=== PATIENT | female | born 1940 | race Caucasian/White ===

== ENCOUNTER 2019-06-07 10:50 | Outpatient (CLI) | payer MEDICARE, SELFPAY ==
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
== END 2019-06-07 10:51 | disposition home or self-care (01) ==
LOC: RADWPI 10:59
PROVIDERS: Family Provider Physician Assistant; PCP Physician Assistant; Visit Provider Family Medicine
DX: Z78.0 Asymptomatic menopausal state (principal)
CPT/HCPCS: 77080

== ENCOUNTER 2019-06-11 06:00 | Outpatient (RCR) | payer MEDICARE, SELFPAY | END 2019-06-14 23:59 | disposition home or self-care (01) | LOC: APT 06:00 | PROVIDERS: Family Provider Physician Assistant; PCP Physician Assistant; Visit Provider Family Medicine | DX: G89.29 Other chronic pain (principal); M54.6 Pain in thoracic spine | CPT/HCPCS: 97110; 97112; 97161 ==

== ENCOUNTER 2019-06-15 06:00 | Outpatient (RCR) | payer MEDICARE, SELFPAY | END 2019-07-13 23:59 | disposition home or self-care (01) | LOC: APT 06:00 | PROVIDERS: Family Provider Physician Assistant; PCP Physician Assistant; Visit Provider Family Medicine | DX: M54.6 Pain in thoracic spine (principal) | CPT/HCPCS: 97110; 97164 ==

== ENCOUNTER 2020-09-19 16:03 | Emergency (ER) | payer MEDICARE, SELFPAY ==
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
[2020-09-19 16:21] VITALS: BP 147/80; PULSE 68; RESP 16; TEMP 36.2; O2SAT 97; BMI 27.3
[2020-09-19 18:13] VITALS: BP 186/93; PULSE 74; RESP 16; O2SAT 94
== END 2020-09-19 18:12 | disposition home or self-care (01) ==
PROVIDERS: Emergency Provider Emergency Medicine; PCP Family Medicine
DX: S06.0X0A Concussion without loss of consciousness, initial encounter (principal); Z79.02 Long term (current) use of antithrombotics/antiplatelets; Z79.4 Long term (current) use of insulin; I25.2 Old myocardial infarction; I25.10 Atherosclerotic heart disease of native coronary artery without angina pectoris; E78.5 Hyperlipidemia, unspecified; I10 Essential (primary) hypertension; E11.9 Type 2 diabetes mellitus without complications; Z95.1 Presence of aortocoronary bypass graft; V89.2XXA Person injured in unspecified motor-vehicle accident, traffic, initial encounter
CPT/HCPCS: 70450; 71045; 99283

== ENCOUNTER 2021-08-06 13:49 | Outpatient (CLI) | payer MEDICARE, SELFPAY ==
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
== END 2021-08-06 13:50 | disposition home or self-care (01) ==
PROVIDERS: PCP Family Medicine; Visit Provider Physician Assistant
DX: Z78.0 Asymptomatic menopausal state (principal); M85.80 Other specified disorders of bone density and structure, unspecified site
CPT/HCPCS: 77080

== ENCOUNTER 2022-03-11 11:26 | Outpatient (CLI) | payer MEDICARE, SELFPAY ==
--- NOTE | 2022-03-11 11:37 | MM_ITS ---
WS: [id number] DIAGNOSTIC BILATERAL DIGITAL BREAST TOMOSYNTHESIS MAMMOGRAPHY WITH CAD LEFT breast ultrasound, limited HISTORY: LT BREAST LUMP COMPARISON: 06/21/2010 and 12/18/2017 TECHNIQUE: Bilateral craniocaudad, mediolateral oblique, and mediolateral views are submitted with to mosynthesis and SM. Spot compression LEFT CC. Computer aided detection utilized. Breast composition: There are scattered areas of fibroglandular density. Triangular marker over the a nterior central LEFT breast. Seen only on the spot compression views is a slightly lobulated 6 mm nod ule closely associated with the palpable marker. No distortion. No nipple retraction. Additional exte nsive breast arterial calcifications. LEFT breast ultrasound, limited. There is an ovoid hypoechoic mass in the superior superficial LEFT breast at 12:00, 6 cm from the nip ple. This corresponds to the mammographic and palpable abnormality. There is no increased vascularity . This thick wall mass measures 6 x 7 x 3 mm. MM/[place] [id number] IMPRESSION: BI-RADS: 3-Probably Benign FOLLOW UP: 6 Month Follow-up 1. Palpable area very superficial LEFT breast at 12:00 corresponds to a 6 x 7 mm nodule. Favor this is probably a resolving hematoma or sebaceous cyst. 2. Recommend 6 month LEFT breast ultrasound follow-up. If this nodule increase s in size over the next few months reevaluation can be performed earlier. There is no increased vascularity and I suspect this is a benign lesion.
--- NOTE | 2022-03-11 12:11 | US_ITS ---
WS: [id number] DIAGNOSTIC BILATERAL DIGITAL BREAST TOMOSYNTHESIS MAMMOGRAPHY WITH CAD LEFT breast ultrasound, limited HISTORY: LT BREAST LUMP COMPARISON: 06/21/2010 and 12/18/2017 TECHNIQUE: Bilateral craniocaudad, mediolateral oblique, and mediolateral views are submitted with to mosynthesis and SM. Spot compression LEFT CC. Computer aided detection utilized. Breast composition: There are scattered areas of fibroglandular density. Triangular marker over the a nterior central LEFT breast. Seen only on the spot compression views is a slightly lobulated 6 mm nod ule closely associated with the palpable marker. No distortion. No nipple retraction. Additional exte nsive breast arterial calcifications. LEFT breast ultrasound, limited. There is an ovoid hypoechoic mass in the superior superficial LEFT breast at 12:00, 6 cm from the nip ple. This corresponds to the mammographic and palpable abnormality. There is no increased vascularity . This thick wall mass measures 6 x 7 x 3 mm. US/US breast LT limited* [id number] IMPRESSION: BI-RADS: 3-Probably Benign FOLLOW UP: 6 Month Follow-up 1. Palpable area very superficial LEFT breast at 12:00 corresponds to a 6 x 7 mm nodule. Favor this is probably a resolving hematoma or sebaceous cyst. 2. Recommend 6 month LEFT breast ultrasound follow-up. If this nodule increase s in size over the next few months reevaluation can be performed earlier. There is no increased vascularity and I suspect this is a benign lesion.
== END 2022-03-11 11:27 | disposition home or self-care (01) ==
PROVIDERS: PCP Family Medicine; Visit Provider Family Medicine
DX: N63.25 Unspecified lump in the left breast, overlapping quadrants (principal)
CPT/HCPCS: 76642; 77062

== ENCOUNTER 2022-04-14 10:24 | Emergency (ER) | payer MEDICARE, SELFPAY ==
[2022-04-14 10:50] VITALS: PULSE 72; RESP 18; O2SAT 94
--- NOTE | 2022-04-14 11:13 | CT_ITS ---
WS: [id number] CT LUMBAR SPINE TECHNIQUE: Noncontrast CT of the lumbar spine with coronal and sagittal reformatted images. CLINICAL INFORMATION: back pain COMPARISON: None. DLP: 1458.[address] scans at [facility] use at least one of these dose optimization techniques: automated e xposure control; mA and/or kV adjustment per patient size (includes targeted exams where dose is matc hed to clinical indication); or iterative reconstruction. FINDINGS: Mild lumbar curve convex LEFT. Slight anterolisthesis L4 on L5. Vacuum disc phenomenon L4-L5 and L5-S 1. Mild compression of the superior endplate at L1 with tiny fracture cleft. Associated Schmorl's nod e. Minimal loss vertebral body height. Compression eccentric to the RIGHT and involves the RIGHT jayme vertebra. No other visualized acute compression fractures. Degenerative arthritis both sacroiliac tamra nts. Vascular calcification. Adrenal glands are normal. Advanced facet arthropathy lower lumbar spine . L1-L2: No significant disc bulging. Mild bilateral bony foraminal narrowing. L2-L3: Mild annular bulging with mild central canal stenosis. Mild bilateral foraminal narrowing LEFT greater than RIGHT. Narrowing of the LEFT subarticular recess. Mild facet arthropathy. L3-L4: Disc bulging with moderate central canal stenosis. Moderate facet arthropathy ligament flavum hypertrophy. Small foraminal protrusions with mild LEFT greater than RIGHT foraminal narrowing. L4-L5: Grade 1 anterolisthesis. Severe central canal stenosis. Advanced facet arthropathy ligamentum flavum hypertrophy. Impingement traversing L5 nerve roots bilaterally. Severe RIGHT and moderate LEFT foraminal narrowing. . L5-S1: Mild disc bulging and osteophytic ridging. Spinal canal is patent Visualized pelvic bony structures: Normal. Paravertebral soft tissues: Normal. CT/CT lumbar spine wo con* [id number] IMPRESSION: 1. Mild compression fracture superior endplate L1 eccentric to the RIGHT with fracture cleft and mild loss vertebral body height. No significant retropulsion . 2. Otherwise no compression fractures lumbar spine. 3. Moderate chronic central canal stenosis L3-L4 and severe central canal sten osis L4-L5. Notified Dalton Dalton DO at 04/14/2022 12:16 PM.
--- NOTE | 2022-04-14 11:13 | CT_ITS ---
WS: [id number] CT THORACIC SPINE TECHNIQUE: Noncontrast CT of the thoracic spine with coronal and sagittal reformatted images. CLINICAL INFORMATION: fall with midline back pain COMPARISON: None. DLP: 1458.[address] scans at [facility] use at least one of these dose optimization techniques: automated e xposure control; mA and/or kV adjustment per patient size (includes targeted exams where dose is matc hed to clinical indication); or iterative reconstruction. FINDINGS: Moderate thoracic kyphosis. Osteopenia. Moderate spondylitic changes. Disc space narrowing worse in t he mid and lower thoracic spine. Vacuum disc phenomenon at T6-T7, T9-T10, T10-T11, T11-T12. Endplate degenerative changes at T9-T10 with sclerosis and subchondral cystic change. Complete loss of the dis c space at T7-T8. Anterior hypertrophic changes. Chronic appearing anterior wedging in the mid thorac ic spine. Minimal compression superior endplates at T3 and T4 likely chronic. Slight atelectasis ling mark and LEFT greater than RIGHT lung base partially visualized. Small esophageal hiatal hernia. Adrenal glands are normal. Splenic artery calcification. IMPRESSION: Moderate to advanced spondylitic changes thoracic spine. No acute compression fractures in the thora cic spine.
--- NOTE | 2022-04-14 11:16 | W.ED.BACK ---
HPI - Back Pain/Injury General: Chief Complaint: Back Pain/Injury Stated Complaint: SEVERE LOW BACK PAIN Time Seen by Provider: 04/14/22 10:45 Source: patient Mode of arrival: EMS Limitations: no limitations History of Present Illness: This patient comes to the emergency department from her home via EMS. She states that she had a fall from her bed approximately 5 or so days ago. She states she rolled out of her bed which is approximately 2 and half to 3 feet off the floor injuring her lower back. She states that she was seen at one of the local clinics and did plain films of her spine and related that she may have had a fracture. She stated they wanted to admit her at that time but she wanted to go home. She states that this morning she had an increase in pain despite her analgesics. She denies other injury from the fall. She states there was no head injury. She denies any numbness or weakness or loss of bowel or bladder control. MD elicited complaint: back injury and fall Location: lumbar spine and thoracic spine Associated symptoms: Deny chills, dysuria, fever(s) or syncope Review of Systems Const: Denies: fever(s) or chills Eyes: Denies: change in vision ENMT: Denies: throat pain, odynophagia, nasal discharge or nasal congestion Card: Denies: chest pain, palpitations, irregular heart rhythm, syncope or pre-syncope Resp: Denies: dyspnea, productive cough or non-productive cough : Denies: flank pain, difficulty voiding, dysuria or urinary frequency Musc: Reports: back pain; Denies: neck pain, extremity pain or extremity swelling Skin/Breast: Denies: rash Neuro: Denies: headache(s), numbness in extremities or weakness in extremities PFSH ED PFSH: Medical History (Updated 04/14/22 @ 13:06 by Dalton Dalton DO) Acute [place] CAD (coronary artery disease) Dyslipidemia Essential (primary) hypertension Type 2 diabetes mellitus without complications Surgical History Hx of CABG Physical Exam Narrative: EXAM NARRATIVE: Patient was noted to be alert and in no acute distress lying in bed in the examination room. Makes good eye contact and her speech is goal-directed. Const: COMMON NORMALS: no acute distress and patient oriented x3 GENERAL APPEARANCE: cooperative and comfortable NUTRITIONAL APPEARANCE: overweight HENMT: COMMON NORMALS: normocephalic, atraumatic, Normal external nose present, Normal nasal mucous membranes and turbinates present, moist oral mucous membranes and oropharynx normal HEAD & SCALP: normocephalic and atraumatic NOSE: Normal external nose present and Normal nasal mucous membranes and turbinates present Eye: COMMON NORMALS: Equal, round and reactive pupils present, EOMs intact bilaterally and conjunctivae normal CONJUNCTIVA: Yes conjunctivae normal PUPIL: Yes Equal, round and reactive pupils present Neck/C-Spine: CERVICAL SPINE: Yes cervical ROM normal, No Cervical spine tenderness, No step off deformity, No Paracervical muscle tenderness, No Paracervical spasm and No Trapezius muscle tenderness Chest: COMMONS NORMALS: normal inspection of the chest and normal palpation of entire chest wall Resp: COMMON NORMALS: normal respiratory effort and clear to auscultation bilaterally AUSCULTATION: clear to auscultation bilaterally Cardio: COMMON NORMALS: regular rate, regular rhythm, No murmurs present (Cardio) and Peripheral pulses 2+ throughout RATE: regular rate RHYTHM: regular rhythm PERIPHERAL PULSES: Peripheral pulses 2+ throughout GI: COMMON NORMALS: Normal to inspection, nondistended, normoactive bowel sounds present, Soft to palpation and non-tender PALPATION: Yes Soft to palpation Back/Pelvis: THORACIC SPINE/UPPER BACK: Yes ROM limited, Yes pain with ROM and Yes thoracic spinal tenderness LUMBAR SPINE/LOWER BACK: Yes normal to inspection, Yes lumbar ROM normal, No pain with ROM and No lumbar spinal tenderness PELVIS: Yes no pain with anterior-posterior compression, Yes no pain with lateral compression and No tenderness over symphysis pubis Extremity: COMMON NORMALS: normal to inspection, full ROM, capillary refill normal, no calf tenderness and no pedal edema Neuro: COMMON NORMALS: patient oriented x3, moves all extremities, no focal motor deficits and no sensory deficits noted Psych: COMMON NORMALS: mental status grossly normal Skin: COMMON NORMALS: no rashes or lesions noted, no wounds and turgor normal GENERAL SKIN EXAM: no rashes or lesions noted and turgor normal Course Reevaluation(s): Reevaluation #1: Radiology studies were reviewed. Patient was reexamined. She does have some mild tenderness in the midline in the lower thoracic L1 region consistent with her radiographic findings. She has more tenderness to the left of the thoracic spine approximately T6-T7 area. No ecchymosis or skin rashes are noted. Given radiographic findings she has evidence of a notable L1 compression fracture with marked degenerative changes throughout the remainder of her spine. But no evidence of a thoracic compression fracture of recent occurrence. Time: 13:03 Vital Signs: Vital signs: Vital Signs Pulse Rate 72 04/14/22 10:50 Respiratory Rate 18 04/14/22 10:50 Pulse Oximetry 94 04/14/22 10:50 Oxygen Delivery Me thod 04/14/22 10:50 MDM - Back Pain/Injury Medical Decision Making Patient presents to the emergency department because of persistent back pain. She had a fall from bed height approximately 5 to 6 days ago. She is not had much improvement with analgesics given by her primary care doctor. Her clinical examination did not reveal any evidence of neurologic compromise or change. He had no other symptoms or clinical findings to suggest other etiologies of her back pain at this time. CT imaging was performed which revealed a stable L1 compression fracture and marked degenerative changes. Repeat clinical examination not discover any new or other concerning findings at this time. We will attempt to control her symptoms with change in analgesics and discussed return precautions in detail with both she and her accompanying family member. Labs I reviewed the patient's lab results. Radiology Impressions Lumbar Spine CT 04/14/22 11:13 IMPRESSION: 1. Mild compression fracture superior endplate L1 eccentric to the RIGHT with fracture cleft and mild loss vertebral body height. No significant retropulsion. 2. Otherwise no compression fractures lumbar spine. 3. Moderate chronic central canal stenosis L3-L4 and severe central canal stenosis L4-L5. Notified Dalton Dalton DO at 04/14/2022 12:16 PM. Discharge Plan Discharge Patient Disposition: Home Clinical Impression: Thoracic back pain, Closed compression fracture of L1 vertebra Condition: Stable Prescriptions: New Lidoderm 5 % adhesive patch,medicated 1 patch topical Q24H Qty: 30 0RF Rx Instructions: leave on most painful area for up to 12 hrs hydrocodone-acetaminophen 5-325 mg tablet 1 tab PO Q12H PRN (Reason: pain) Qty: 14 0RF No Action calcium citrate 250 mg calcium tablet 250 mg PO DAILY clopidogrel 75 mg tablet 75 mg PO QAM gabapentin 600 mg tablet 600 mg PO BEDTIME tramadol 50 mg tablet 100 mg PO DAILY@17 Tresiba FlexTouch U-100 100 unit/mL (3 mL) insulin pen 30 unit SUBCUT DAILY@17 multivitamin Tablet 1 tab PO DAILY atorvastatin 40 mg tablet 40 mg PO BEDTIME triamcinolone acetonide 0.1 % cream 1 applic TOPICAL TID PRN (Reason: UNKNOWN) losartan 25 mg tablet 25 mg PO QAM Vitamin C 1,000 mg Tablet 1,000 mg PO DAILY Fish Oil 120-180-500 mg Capsule 1 cap PO DAILY isosorbide mononitrate 60 mg tablet extended release 24 hr 60 mg PO DAILY prednisone 20 mg tablet 20 mg PO DAILY Discharge Orders: Discharge ED (Routine); Ordered 04/14/22 Ordered By: Dalton Dalton Referrals: Antonio Delgado MD [Primary Care Provider] - 7-10 days Discharge Diet: Usual diet Discharge Activity: Increase activity as tolerated Patient Instructions: Opioid Safety, Pain Management Activity Restrictions/Additional Instructions: Do not take tramadol. You may use the medication we have prescribed to help with your pain. We also recommend using the Lidoderm patch to the area of discomfort on a daily basis. If your symptoms worsen, you develop fever, you have weakness or numbness or other concerning symptoms return to the emergency department immediately. Otherwise follow-up with your family physician in about 7 to 10 days for recheck. 10 you all your other usual medications. Coding Level of Care Code ED Technology Administrator for [facility] Vasquez Exam Comprehensive
[2022-04-14] MEDS: lidocaine 5% Patch 1 PATCH TOPICAL (13:58)
[2022-04-14] MEDS: HYDROcodone-acetaminophen 5-325 mg Tablet 1 TAB PO (13:58)
[2022-04-14 14:20] VITALS: BP 114/69; PULSE 73; RESP 16; O2SAT 94
== END 2022-04-14 14:07 | disposition home or self-care (01) ==
PROVIDERS: Emergency Provider Emergency Medicine; PCP Family Medicine
DX: S32.010A Wedge compression fracture of first lumbar vertebra, initial encounter for closed fracture (principal); M54.6 Pain in thoracic spine; Z79.02 Long term (current) use of antithrombotics/antiplatelets; Z79.4 Long term (current) use of insulin; I25.2 Old myocardial infarction; I25.10 Atherosclerotic heart disease of native coronary artery without angina pectoris; E78.5 Hyperlipidemia, unspecified; I10 Essential (primary) hypertension; E11.9 Type 2 diabetes mellitus without complications; Z95.1 Presence of aortocoronary bypass graft; W06.XXXA Fall from bed, initial encounter; Z91.81 History of falling
CPT/HCPCS: 72128; 72131; 99284

== ENCOUNTER 2022-04-15 11:47 | Emergency (ER) | payer MEDICARE, SELFPAY ==
[2022-04-15 11:57] VITALS: BP 175/100; PULSE 77; RESP 19; TEMP 36.4; O2SAT 95
[2022-04-15 12:02] VITALS: RESP 20; O2SAT 94
[2022-04-15] MEDS: ondansetron 2 mg/ML SDV 2 mL 4 MG IVP (12:02)
[2022-04-15] MEDS: morphine 4 mg/mL SDV 1 mL IVP (12:02)
--- NOTE | 2022-04-15 12:22 | ED_ITS ---
HPI - Back Pain/Injury General: Chief Complaint: Back Pain/Injury Stated Complaint: Severe back pain Time Seen by Provider: 04/15/22 11:50 Source: patient Mode of arrival: EMS History of Present Illness: 81-year-old female presents emergency room via EMS. She was here yesterday after a fall out of her bed at home she sustained a L1 compression fracture. She was discharged home on hydrocodone for pain 1 every 12 hours as needed but has not been adequately controlling her pain she returns today saying that her back pain is severe and she is not able to get up and get around the house. She normally lives at home with her son as a caregiver. Notes from yesterday including imaging were reviewed. MD elicited complaint: back pain Pertinent past history: recent trauma Onset (ago): day(s) Timing: constant Severity: severe Quality: sharp Location: lumbar spine Radiation: none Exacerbating factors: none Context: fall Associated symptoms: Deny abdominal pain, arthralgias, chills, change in bowel habits, difficulty walking, dysuria, fatigue, fecal incontinence, fever(s), hematuria, myalgias, nausea, numbness, syncope, tingling/numbness/burning, urinary frequency, urinary urgency, vomiting or weakness Review of Systems Const: Denies: fever(s), chills, fatigue or malaise ENMT: Denies: throat pain, ear or mastoid pain, nasal discharge or nasal congestion Card: Denies: chest pain, palpitations, irregular heart rhythm or syncope Resp: Denies: dyspnea, productive cough or non-productive cough GI: Denies: abdominal pain, nausea, vomiting, fecal incontinence or change in bowel habits : Denies: difficulty voiding, dysuria, urinary frequency, urinary urgency or hematuria Musc: Reports: back pain Skin/Breast: Denies: rash or pruritus Neuro: Denies: difficulty walking PFSH ED PFSH: Medical History (Updated 04/15/22 @ 14:21 by Thomas Nava DO) Acute [place] CAD (coronary artery disease) Dyslipidemia Essential (primary) hypertension Type 2 diabetes mellitus without complications Surgical History Hx of CABG Physical Exam Const: COMMON NORMALS: no acute distress GENERAL APPEARANCE: cooperative and comfortable ORIENTATION/CONSCIOUSNESS: Yes awake, Yes oriented to person, Yes oriented to place and Yes oriented to time HENMT: COMMON NORMALS: normocephalic, atraumatic and hearing grossly normal bilaterally HEAD & SCALP: normocephalic and atraumatic Resp: COMMON NORMALS: normal respiratory effort, No retractions, No use of accessory muscles and clear to auscultation bilaterally AUSCULTATION: clear to auscultation bilaterally Cardio: COMMON NORMALS: regular rate, regular rhythm and No murmurs present (Cardio) RATE: regular rate RHYTHM: regular rhythm GI: COMMON NORMALS: Soft to palpation and No hepatosplenomegaly present AUSCULTATION: Yes normoactive bowel sounds PALPATION: Yes Soft to palpation, No Tenderness to palpation present (GI), No Guarding due to palpation present (GI) and Yes No hepatosplenomegaly present Extremity: COMMON NORMALS: normal to inspection, capillary refill normal, no clubbing, cyanosis or edema, no calf tenderness and no pedal edema Neuro: SENSORIUM/ORIENTATION: Yes oriented to person, Yes oriented to place and Yes oriented to time Skin: COMMON NORMALS: no rashes or lesions noted GENERAL SKIN EXAM: no rashes or lesions noted Course Vital Signs: Vital signs: Vital Signs Temperature 97.5 F L 04/15/22 11:57 Pulse Rate 82 04/15/22 13:29 Respiratory Rate 15 04/15/22 13:29 Blood Pressure 159/92 04/15/22 13:29 Pulse Oximetry 92 04/15/22 13:29 Oxygen Delivery Me thod 04/15/22 11:57 MDM - Back Pain/Injury Medical Decision Making Patient has not done well with pain control we offered her [facility] who began to acute L[place] he changed her mind initially she would want to pursue that. Now she is wanting to go home. Hydrocodone switched to Percocet 1 p.o. every 4 hours as needed minimal Case management make arrangements for referral for kyphoplasty follow-up with your primary care doctor for further pain control needs. Medical Records I reviewed the patient's medical records. Labs I reviewed the patient's lab results. 04/15/22 13:29 04/15/22 13:29 Laboratory Results WBC 14.2 10^3/uL (4.0-10.0) H 04/15/22 13:29 RBC 5.09 10^6/uL (4.1-5.3) 04/15/22 13:29 Hgb 14.3 g/dL (11.5-15.3) 04/15/22 13:29 Hct 44.8 % (37.0-47.0) 04/15/22 13: MCV 88.0 fl (81-99) 04/15/22 13: MCH 28.1 pg (28.0-34.0) 04/15/22 13: MCHC 31.9 g/dL (30.0-36.0) 04/15/22 13: RDW 12.0 % (12.1-15.1) L 04/15/22 13: Plt Count 322 10^3/cmm (130-400) 04/15/22 13: MPV 11.0 fL (7.4-10.4) H 04/15/22 13: Neut % (Auto) 79.3 % 04/15/22 13: Lymph % (Auto) 12.4 % 04/15/22 13:29 [place] % (Auto) 6.3 % 04/15/22 13:29 Eos % (Auto) 1.5 % 04/15/22 13:29 Baso % (Auto) 0.1 % 04/15/22 13:29 Neut # (Auto) 11.28 10^3/uL (1.8-7.7) H 04/15/22 13:29 Lymph # (Auto) 1.8 10^3/uL (0.8-4.8) 04/15/22 13:29 [place] # (Auto) 0.9 10^3/uL (0.2-0.9) 04/15/22 13:29 Eos # (Auto) 0.2 10^3/uL (0.0-0.8) 04/15/22 13:29 Baso # (Auto) 0.0 10^3/uL (0.0-0.1) 04/15/22 13:29 Nucleated RBC % (auto) 0 % 04/15/22 13: Nucleated RBCs # 0.0 /100WBC 04/15/22 13:29 Sodium 139 mmol/L (136-145) 04/15/22 13:29 Potassium 4.2 mmol/L (3.5-5.1) 04/15/22 13:29 Chloride 101 mmol/L (98-107) 04/15/22 13:29 Carbon Dioxide 30 mmol/L (22-29) H 04/15/22 13:29 Anion Gap 12.2 (5-19) 04/15/22 13:29 BUN 17 mg/dL (8-23) 04/15/22 13:29 Creatinine 0.7 mg/dL (0.5-0.9) 04/15/22 13:29 GFR Calculation Not Reportable 04/15/22 13:29 Glucose 181 mg/dL (65-115) H 04/15/22 13:29 Calculated Osmolality 294 mOsm/kg (285-295) 04/15/22 13:29 Calcium 8.9 mg/dL (8.5-10.5) 04/15/22 13:29 Total Bilirubin 0.5 mg/dL (0.15-1.2) 04/15/22 13:29 AST 12 U/L (0-32) 04/15/22 13:29 ALT 13 U/L (0-33) 04/15/22 13:29 Alkaline Phosphatase 126 U/L (35-105) H 04/15/22 13:29 Total Protein 7.0 g/dL (6.6-8.7) 04/15/22 13:29 Albumin 3.3 g/dL (3.5-5.2) L 04/15/22 13:29 Globulin 3.7 g/dL (1.3-4.6) 04/15/22 13:29 Discharge Plan Discharge Patient Disposition: Home Clinical Impression: Closed compression fracture of L1 vertebra, Type 2 diabetes mellitus without complications Condition: Stable Prescriptions: New Percocet 5-325 mg tablet 1 tab PO Q6H PRN (Reason: pain) Qty: 30 0RF Discontinued tramadol 50 mg tablet 100 mg PO DAILY@17 hydrocodone-acetaminophen 5-325 mg tablet 1 tab PO Q12H PRN (Reason: pain) Qty: 14 0RF prednisone 20 mg tablet See Rx Instructions .ROUTE .COMPLEX Rx Instructions: 40mg po daily for 3 days 20mg po daily for 3 days 10mg po daily for 2 days (rx filled 04/08/22 8d/s) No Action calcium citrate 250 mg calcium tablet 250 mg PO DAILY clopidogrel 75 mg tablet 75 mg PO BEDTIME gabapentin 600 mg tablet 600 mg PO BEDTIME Tresiba FlexTouch U-100 100 unit/mL (3 mL) insulin pen 30 unit SUBCUT DAILY@17 multivitamin Tablet 1 tab PO BEDTIME atorvastatin 40 mg tablet 40 mg PO BEDTIME triamcinolone acetonide 0.1 % cream 1 applic TOPICAL TID PRN (Reason: UNKNOWN) losartan 25 mg tablet 25 mg PO BEDTIME ascorbic acid (vitamin C) [Vitamin C] 1,000 mg Tablet 1,000 mg PO DAILY Fish Oil 120-180-500 mg Capsule 1 cap PO DAILY isosorbide mononitrate 60 mg tablet extended release 24 hr 60 mg PO BEDTIME lidocaine [Lidoderm] 5 % adhesive patch,medicated 1 patch topical Q24H Qty: 30 0RF Rx Instructions: leave on most painful area for up to 12 hrs Discharge Orders: Discharge ED (Routine); Ordered 04/15/22 Ordered By: Thomas Nava Referrals: Antonio Delgado MD [Primary Care Provider] - Patient Instructions: Opioid Safety, Pain Management Activity Restrictions/Additional Instructions: You are seen today for pain control for your compression fracture. We will have you stop the hydrocodone gave you scription for Percocet. Follow-up with Dr. Delgado as needed for further pain control. Case management will try to make arrangements for you to be seen for a kyphoplasty. Coding Level of Care Code ED Ship Captain for [facility] Fwd Exam Detailed
[2022-04-15 12:29] VITALS: BP 174/113; PULSE 74; RESP 17; O2SAT 94
--- NOTE | 2022-04-15 12:57 | PC.PHAR ---
pt states she takes care of her own medications-pt states she uses tresiba flextouch u-100 30 units daily ext med history shows last filled 04/09/22 27 units bedtime-pt states she is unsure if she is taking prednisone ext med history shows last filled a titrating dose filled 04/08/22 8d/s-pt states she is out of ultram rx filled 04/08/22 5d/s 50mg po q6h prn pt states just takes 100mg daily-pt states she had a build up of plavix 75mg hs and losartan 25mg hs and is still [facility] states last filled 09/07/21 90d/s states rx has refills-notes are made in the pharmacy comments
[2022-04-15 13:15] VITALS: RESP 24
[2022-04-15] MEDS: morphine 4 mg/mL SDV 1 mL 2 MG IVP (13:15)
[2022-04-15 13:29] VITALS: BP 159/92; PULSE 82; RESP 15; O2SAT 92
[2022-04-15 13:35] LABS: Basophils % 0.1 %; Eosinophils # 0.2 10^3/uL (0.0-0.8); Eosinophils % 1.5 %; Hematocrit 44.8 % (37.0-47.0); Hemoglobin 14.3 g/dL (11.5-15.3); Lymphocytes # 1.8 10^3/uL (0.8-4.8); Lymphocytes % 12.4 %; Mean Corpuscular HGB Conc 31.9 g/dL (30.0-36.0); Mean Corpuscular Hemoglobin 28.1 pg (28.0-34.0); Monocytes # 0.9 10^3/uL (0.2-0.9); Monocytes % 6.3 %; Neutrophils # 11.28 10^3/uL (1.8-7.7); Neutrophils % 79.3 %; Nucleated Red Blood Cells % 0 %; Platelet Count 322 10^3/cmm (130-400); Red Blood Count 5.09 10^6/uL (4.1-5.3); White Blood Count 14.2 10^3/uL (4.0-10.0)
[2022-04-15 13:54] LABS: Alanine Aminotransferase 13 U/L (0-33); Albumin Level 3.3 g/dL (3.5-5.2); Alkaline Phosphatase 126 U/L (35-105); Anion Gap 12.2 (5-19); Aspartate Amino Transferase 12 U/L (0-32); Blood Urea Nitrogen 17 mg/dL (8-23); Calcium 8.9 mg/dL (8.5-10.5); Carbon Dioxide 30 mmol/L (22-29); Chloride 101 mmol/L (98-107); Globulin 3.7 g/dL (1.3-4.6); Glucose 181 mg/dL (65-115); Osmolality Calculated 294 mOsm/kg (285-295); Potassium 4.2 mmol/L (3.5-5.1); Sodium 139 mmol/L (136-145); Total Bilirubin 0.5 mg/dL (0.15-1.2)
[2022-04-15 14:40] VITALS: PULSE 96; O2SAT 96
[2022-04-15 14:40] LABS: Add Urine Microscopic? YES; Bilirubin Urine Neg (Negative); Blood Urine Neg (Negative); Glucose Urine UA Norm (Normal); Ketones Urine Negative (Negative); Leukocyte Esterase Urine 2+ (Negative); Nitrate Urine Negative (Negative); Protein Urine Neg (Negative); Urine Appearance Cloudy (CLEAR); Urine Color Yellow (Yellow); Urobilinogen Urine Norm (Negative); pH Urine 7 (5-7)
[2022-04-15 14:50] LABS: RBC Urine 0-4 /hpf (0-2)
[2022-04-15 14:51] LABS: Add Urine Culture? Yes; Bacteria Urine 3+ /hpf; Squamous Epithelial Cell Urine 0-4 /hpf (0-5); WBC Urine 55-80 /hpf (0-5)
--- NOTE | 2022-04-15 15:34 | DCPLANNER ---
Addendum entered by Chapis Pompa 05/05/22 11:07: Patient did not attend appointment Addendum entered by Chapis Pompa 04/22/22 15:12: Patient has a follow up appointment scheduled for Tuesday, April 26, 2022 at 2:[address] Adams at ortho. Clinic will call patient with appointment information. Original Note: biofuels manager had message to schedule a follow up appointment scheduled with ortho. biofuels manager sent patients information to the front office staff at ortho. Patients information will be printed and reviewed. Clinic will call patient with appointment information.
== END 2022-04-15 14:35 | disposition home or self-care (01) ==
PROVIDERS: Emergency Provider Family Medicine; PCP Family Medicine
DX: S32.018A Other fracture of first lumbar vertebra, initial encounter for closed fracture (principal); W06.XXXA Fall from bed, initial encounter; E11.8 Type 2 diabetes mellitus with unspecified complications; Z79.4 Long term (current) use of insulin
CPT/HCPCS: 80053; 81001; 85025; 87077; 87086; 87186; 96374; 96375; 96376; 99284; J2270; J2405

== ENCOUNTER 2023-08-28 16:03 | Inpatient (IN) | payer MEDICARE, SELFPAY ==
[2023-08-28] VITALS (29 sets, daily range): BP systolic 137–194; BP diastolic 64–139; PULSE 61–71; RESP 15–23; TEMP 36.5–36.8; O2SAT 82–94; BMI 32.2
--- NOTE | 2023-08-28 16:04 | XRR_ITS ---
PROCEDURE INFORMATION: Exam: XR Chest Exam date and time: 08/28/2023 4:32 PM Age: 83 years old Clinical indication: Cough and dyspnea; Prior surgery; Surgery date: 6+ months; Surgery type: Open heart; Additional info: Dyspnea/cough TECHNIQUE: Imaging protocol: Radiologic exam of the chest. Views: 1 view. COMPARISON: CR XR chest 1V portable [id number] 09/19/2020 4:36 PM FINDINGS: Lungs: No consolidation. Pleural spaces: No pleural effusion. No pneumothorax. Heart/Mediastinum: CABG changes. Bones/joints: No acute findings. XR/XR chest 1V portable [id number] IMPRESSION: No acute findings.
--- NOTE | 2023-08-28 16:19 | ECG_ITS ---
[facility] Test Date: 2023-08-28 Pat Name: Sally Henderson Department: Room: Gender: Female Clinical Auditor: : 1940 Requested By: Thomas Benavidez Order Number: [id number] Leonora MD: Angela Lopez M.D. 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 [email or web address]
--- NOTE | 2023-08-28 16:19 | XRR_ITS ---
PROCEDURE INFORMATION: Exam: XR Left Humerus Exam date and time: 08/28/2023 4:33 PM Age: 83 years old Clinical indication: Pain; Upper arm; Left TECHNIQUE: Imaging protocol: Radiologic exam of the left humerus. Views: 2 or more views. COMPARISON: CR XR chest 1V portable [id number] 08/28/2023 4:32 PM FINDINGS: Bones/joints: No fracture or malalignment. Soft tissues: No acute findings. Vascular calcifications. XR/[place] [id number] IMPRESSION: No acute findings.
--- NOTE | 2023-08-28 16:19 | ED_ITS ---
HPI - Extremity Problem 2 General: Chief complaint: Extremity Problem,Nontraumatic Stated complaint: L arm pain Time Seen by Provider: 08/28/23 16:04 Source: patient Mode of arrival: ambulatory History of Present Illness: 83-year-old female presents to the emerg ency room with complaint of left arm pain shoulder pain. This been going on for several days and is worse when she raises her arm up she has had some shortness of breath but states she constantly has shortness of breath. She does notice particular when she raises her arm to do her laundry is bothersome. No fever sweats or chills no vomiting or diarrhea. MD Complaint: extremity pain Onset (ago): day(s) Location: left Radiation: distal Relieving factors: rest Exacerbating factors: range of motion Associated symptoms: Deny chest pain, fever(s) or rash Review of Systems 2 Const: Denies: fever(s) or chills Card: Denies: chest pain Resp: Denies: dyspnea GI: Denies: abdominal pain : Denies: dysuria, urinary frequency or urinary urgency Musc: Denies: neck pain or back pain Skin/Breast: Denies: rash PFSH ED 2 PFSH: Medical History (Updated 08/28/23 @ 18:04 by Thomas Nava DO) Dyslipidemia Type 2 diabetes mellitus without complications CAD (coronary artery disease) Acute [place] Essential (primary) hypertension Surgical History (Updated 08/28/23 @ 18:04 by Thomas Nava DO) Hx of CABG Physical Exam 2 Const: GENERAL APPEARANCE: cooperative and comfortable O RIENTATION/CONSCIOUSNESS: Yes awake, Yes oriented to person, Yes oriented to place and Yes oriented to time HENMT: COMMON NORMALS: normocephalic, atraumatic and hearing grossly normal bilaterally HEAD & SCALP: normocephalic and atraumatic Resp: COMMON NORMALS: normal respiratory effort, No retractions, No use of accessory muscles and clear to auscultation bilaterally AUSCULTATION: clear to auscultation bilaterally Cardio: COMMON NORMALS: regular rate, regular rhythm and No murmurs present (Cardio) RATE: regular rate RHYTHM: regular rhythm GI: COMMON NORMALS: Soft to palpation and No hepatosplenomegaly present A USCULTATION: Yes normoactive bowel sounds PALPATION: Yes Soft to palpation, No Tenderness to palpation present (GI), No Guarding due to palpation present (GI) and Yes No hepatosplenomegaly present Extremity: COMMON NORMALS: normal to inspection, capillary refill normal, no clubbing, cyanosis or edema, no calf tenderness and no pedal edema OTHER: Reproducible pain with a positive impingement sign the left shoulder Neuro: SENSORIUM/ORIENTATION: Yes oriented to person, Yes oriented to place and Yes oriented to time Skin: COMMON NORMALS: no rashes or lesions noted GENERAL SKIN EXAM: no rashes or lesions noted Course 2 Vital Signs: Vital signs: Vital Signs Temperature 98.2 F 08/28/23 16:04 Pulse Rate 68 08/28/23 16:35 Respiratory Rate 18 08/28/23 16:04 Blood Pressure 168/139 08/28/23 16:35 Pulse Oximetry 94 08/28/23 16:35 Oxygen Delivery Me thod Room Air 08/28/23 16:35 MDM - Extremity (Nontraumatic) Medical Decision Making First troponin 151. There were some T wave inversions in V2 through V6. Patient is not having any chest comfort at this time still complains of left shoulder pain patient heparinized given topical nitro will admit discussed with hospitalist orders written Medical Records I reviewed the patient's medical records. Lab Data I reviewed the patient's lab results. 08/28/23 16:16 08/28/23 16:16 Radiology Impressions Chest X-Ray 08/28/23 16:04 IMPRESSION: No acute findings. Humerus X-Ray 08/28/23 16:19 IMPRESSION: No acute findings. Laboratory Results WBC 10.59 10^3/uL (3.29-11.43) 08/28/23 16:16 RBC 4.80 10^6/uL (3.85-5.65) 08/28/23 16:16 Hgb 13.70 g/dL (11.27-16.99) 08/28/23 16:16 Hct 42.6 % (36-47) 08/28/23 16:16 MCV 88.8 fl (85-98) 08/28/23 16:16 MCH 28.5 pg (27-33) 08/28/23 16:16 MCHC 32.2 g/dL (30-55) 08/28/23 16:16 RDW 12.7 % (12.1-15.1) 08/28/23 16:16 Plt Count 247 10^3/cmm (157-399) 08/28/23 16:16 MPV 11.2 fL (7.4-10.4) H 08/28/23 16:16 Neut % (Auto) 74.7 % 08/28/23 16:16 Lymph % (Auto) 16.1 % 08/28/23 16:16 [place] % (Auto) 7.5 % 08/28/23 16:16 Eos % (Auto) 1.1 % 08/28/23 16:16 Baso % (Auto) 0.2 % 08/28/23 16:16 Neut # (Auto) 7.91 10^3/uL (1.8-7.7) H 08/28/23 16:16 Lymph # (Auto) 1.7 10^3/uL (0.8-4.8) 08/28/23 16:16 [place] # (Auto) 0.8 10^3/uL (0.2-0.9) 08/28/23 16:16 Eos # (Auto) 0.1 10^3/uL (0.0-0.8) 08/28/23 16:16 Baso # (Auto) 0.0 10^3/uL (0.0-0.1) 08/28/23 16:16 Nucleated RBC % (auto) 0 % 08/28/23 16:16 Nucleated RBCs # 0.0 /100WBC 08/28/23 16:16 Sodium 141 mmol/L (136-145) 08/28/23 16:16 Potassium 4.7 mmol/L (3.5-5.1) 08/28/23 16:16 Chloride 104 mmol/L (98-107) 08/28/23 16:16 Carbon Dioxide 29 mmol/L (22-29) 08/28/23 16:16 Anion Gap 12.7 (5-19) 08/28/23 16:16 BUN 31 mg/dL (8-23) H 08/28/23 16:16 Creatinine 1.1 mg/dL (0.5-0.9) H 08/28/23 16:16 GFR Calculation Not Reportable 08/28/23 16:16 Glucose 250 mg/dL (65-115) H 08/28/23 16:16 Calculated Osmolality 307 mOsm/kg (285-295) H 08/28/23 16:16 Calcium 9.0 mg/dL (8.5-10.5) 08/28/23 16:16 Total Bilirubin 0.2 mg/dL (0.15-1.2) 08/28/23 16:16 AST 28 U/L (0-32) 08/28/23 16:16 ALT 16 U/L (0-33) 08/28/23 16:16 Alkaline Phosphatase 145 U/L (35-105) H 08/28/23 16:16 Troponin T Baseline 151 ng/L (0-10) H* 08/28/23 16:16 Total Protein 7.4 g/dL (6.6-8.7) 08/28/23 16:16 Albumin 4.1 g/dL (3.5-5.2) 08/28/23 16:16 Globulin 3.3 g/dL (1.3-4.6) 08/28/23 16:16 Urine Color Straw (Yellow) 08/28/23 16:34 Urine Appearance Hazy (CLEAR) A 08/28/23 16:34 Urine pH 5 (5-7) 08/28/23 16:34 Ur Specific [place] 1.020 (1.005-1.030) 08/28/23 16:34 Urine Protein Neg (Negative) 08/28/23 16:34 Urine Glucose (UA) 4+ (Normal) H 08/28/23 16:34 Urine Ketones Negative (Negative) 08/28/23 16:34 Urine Blood Neg (Negative) 08/28/23 16:34 Urine Nitrate Positive (Negative) H 08/28/23 16:34 Urine Bilirubin Neg (Negative) 08/28/23 16:34 Urine Urobilinogen Norm mg/dL (Negative) 08/28/23 16:34 Ur Leukocyte Esterase 1+ (Negative) H 08/28/23 16:34 Urine RBC None /hpf (0-2) 08/28/23 16:34 Urine WBC 25-40 /hpf (0-5) H 08/28/23 16:34 Ur Squamous Epith Cells 0-4 /hpf (0-5) H 08/28/23 16:34 Amorphous Sediment Not Reportable 08/28/23 16:34 Urine Bacteria 2+ /hpf (NONE) H 08/28/23 16:34 All radiology interpretation(s) finalized by discharge Discharge Plan Discharge Patient Disposition: Admitted As Inpatient Clinical Impression: Non-ST elevation [place] (NSTEMI), Hx of CABG, Essential (primary) hypertension, CAD (coronary artery disease), Type 2 diabetes mellitus without complications Condition: Stable Prescriptions: No Action calcium citrate 250 mg calcium tablet 250 mg PO DAILY clopidogrel 75 mg tablet 75 mg PO BEDTIME gabapentin 600 mg tablet 600 mg PO BEDTIME Tresiba FlexTouch U-100 100 unit/mL (3 mL) insulin pen 30 unit SUBCUT DAILY@17 multivitamin Tablet 1 tab PO BEDTIME atorvastatin 40 mg tablet 40 mg PO BEDTIME triamcinolone acetonide 0.1 % cream 1 applic TOPICAL TID PRN (Reason: UNKNOWN) losartan 25 mg tablet 25 mg PO BEDTIME ascorbic acid (vitamin C) [Vitamin C] 1,000 mg Tablet 1,000 mg PO DAILY Fish Oil 120-180-500 mg Capsule 1 cap PO DAILY isosorbide mononitrate 60 mg tablet extended release 24 hr 60 mg PO BEDTIME lidocaine [Lidoderm] 5 % adhesive patch,medicated 1 patch topical Q24H Qty: 30 0RF Rx Instructions: leave on most painful area for up to 12 hrs Percocet 5-325 mg tablet 1 tab PO Q6H PRN (Reason: pain) Qty: 30 0RF Referrals: Antonio Delgado MD [Primary Care Provider] - Coding Level of Care Code ED 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
[2023-08-28 16:50] LABS: Basophils % 0.2 %; Eosinophils # 0.1 10^3/uL (0.0-0.8); Eosinophils % 1.1 %; Hematocrit 42.6 % (36-47); Lymphocytes # 1.7 10^3/uL (0.8-4.8); Lymphocytes % 16.1 %; Mean Corpuscular HGB Conc 32.2 g/dL (30-55); Mean Corpuscular Hemoglobin 28.5 pg (27-33); Mean Corpuscular Volume 88.8 fl (85-98); Mean Platelet Volume 11.2 fL (7.4-10.4); Monocytes # 0.8 10^3/uL (0.2-0.9); Monocytes % 7.5 %; Neutrophils # 7.91 10^3/uL (1.8-7.7); Neutrophils % 74.7 %; Nucleated Red Blood Cells % 0 %; Platelet Count 247 10^3/cmm (157-399); Red Cell Distribution Width 12.7 % (12.1-15.1); White Blood Count 10.59 10^3/uL (3.29-11.43)
[2023-08-28 17:12] LABS: Blood Urine Neg (Negative); Glucose Urine UA 4+ (Normal); Ketones Urine Negative (Negative); Nitrate Urine Positive (Negative); Protein Urine Neg (Negative); Urine Appearance Hazy (CLEAR); Urine Color Straw (Yellow); pH Urine 5 (5-7)
[2023-08-28 17:13] LABS: Add Urine Culture? Yes; Add Urine Microscopic? YES; Bacteria Urine 2+ /hpf; Bilirubin Urine Neg (Negative); Leukocyte Esterase Urine 1+ (Negative); Squamous Epithelial Cell Urine 0-4 /hpf (0-5); Urobilinogen Urine Norm (Negative); WBC Urine 25-40 /hpf (0-5)
[2023-08-28 17:17] LABS: Troponin(5th) Baseline 151 ng/L (0-10)
[2023-08-28 17:24] LABS: Alanine Aminotransferase 16 U/L (0-33); Albumin Level 4.1 g/dL (3.5-5.2); Alkaline Phosphatase 145 U/L (35-105); Anion Gap 12.7 (5-19); Aspartate Amino Transferase 28 U/L (0-32); Blood Urea Nitrogen 31 mg/dL (8-23); Carbon Dioxide 29 mmol/L (22-29); Chloride 104 mmol/L (98-107); Globulin 3.3 g/dL (1.3-4.6); Glucose 250 mg/dL (65-115); Osmolality Calculated 307 mOsm/kg (285-295); Potassium 4.7 mmol/L (3.5-5.1); Sodium 141 mmol/L (136-145); Total Bilirubin 0.2 mg/dL (0.15-1.2); Total Protein 7.4 g/dL (6.6-8.7)
[2023-08-28] MEDS: aspirin 81 mg Chew Tablet 324 MG PO (18:11)
[2023-08-28] MEDS: nitroglycerin 1 gm/inch oint Pkt 1 INCH TOPICAL (18:13)
--- NOTE | 2023-08-28 18:38 | ECG_ITS ---
[facility] Test Date: 2023-08-28 Pat Name: Sally Henderson Department: Room: Gender: Female Pelt Inspector: : 1940 Requested By: Thomas Benavidez Order Number: [id number] Leonora MD: Angela Lopez M.D. Measurements Intervals [place] Rate: 64 P: 34 [place]: 147 QRS: -38 QRSD: 82 T: 140 QT: 407 QTc: 420 Interpretive Statements SINUS RHYTHM LEFT AXIS DEVIATION [QRS AXIS < -30] PATTERN CONSISTENT WITH PULMONARY DISEASE LEFT VENTRICULAR HYPERTROPHY AND ST-T CHANGE [VOLTAGE CRITERIA PLUS ST/T ABNORMALITY] Compared to ECG 08/28/2023 16:19:03 Myocardial infarct finding no longer present ST (T wave) deviation still present Electronically Signed On 08-28-2023 19:38:57 CDT by Angela Lopez M.D. [id number]
[2023-08-28 18:53] LABS: Partial Thromboplastin Time 28.9 SECONDS (23.9-36.7)
--- NOTE | 2023-08-28 18:53 | P.HP_ITS ---
Providers/Chief Complaint 2 Admitting Physician: Marques Hays DO Primary Care Provider: Antonio Delgado MD Chief Complaint: L arm pain History of Present Illness Sally Henderson is a 83 year old female with PMH of CAD, NV with stent placement and CABG, HTN, TIIDM, HLD who presented to ER with LUE pain. Reports that she began to have L arm and shoulder pain a couple days ago. States that her symptoms have been worsening, with development of mild shortness of breath. She had initially attributed her symptoms to some MSK pain, but was encouraged to seek medical attention as her symptoms persisted. During her evaluation in the ER, she was noted to have elevated troponin and changes on EKG that were concerning for ischemia. Her initial troponin was 151. EKG showed T-wave changes in V2-V6. She did not complain of chest pain during evaluation today, but did continue to have intermittent shortness of breath. Vitals were stable in ER during evaluation. CBC unremarkable. Cr was mildly elevated to 1.1. Glucose was 250 on admission. Her urine was suggestive of UTI with elevated WBC's, Leuk esterace and nitrate positive. She was admitted for observation. Review of Systems 2 General: Reports: 10 or more systems reviewed and unremarkable except in HPI and below Medications/Allergies Home Medications Medication Instructions Recorded Confirmed Last Taken Type calcium citrate 250 mg PO DAILY 05/28/19 04/15/22 04/13/22 History clopidogrel 75 mg tablet 75 mg PO BEDTIME 05/28/19 04/15/22 04/14/22 History last filled 09/07/21 gabapentin 600 mg tablet 600 mg PO BEDTIME 05/28/19 04/15/22 04/14/22 History insulin degludec 100 unit/mL (3 30 unit SUBCUT DAILY@17 05/28/19 04/15/22 04/14/22 History mL) subcutaneous pen (Tresiba FlexTouch U-100 insulin) atorvastatin 40 mg tablet 40 mg PO BEDTIME 09/19/20 04/15/22 04/14/22 History losartan 25 mg tablet 25 mg PO BEDTIME 09/19/20 04/15/22 04/14/22 History last filled 09/07/21 multivitamin 1 tab PO BEDTIME 09/19/20 04/15/22 04/14/22 History triamcinolone acetonide 0.1 % 1 applic topical TID PRN UNKNOWN 09/19/20 04/15/22 Unknown History topical cream ascorbic acid (vitamin C) 1,000 mg 1,000 mg PO DAILY 04/14/22 04/15/22 04/14/22 History tablet (Vitamin C) isosorbide mononitrate 60 mg 60 mg PO BEDTIME 04/14/22 04/15/22 04/14/22 History tablet,extended release 24 hr lidocaine 5 % topical patch 1 patch topical Q24H #30 ea 04/14/22 04/15/22 04/14/22 Rx (Lidoderm) omega 2-zmy-sgk-fish oil 120 1 cap PO DAILY 04/14/22 04/15/22 04/13/22 History mg-180 mg-500 mg capsule (Fish Oil) oxycodone-acetaminophen 5 mg-325 1 tab PO Q6H PRN pain #30 tabs 04/15/22 Unknown Rx mg tablet (Percocet) Allergies Allergy/AdvReac Type Severity Reaction Status Date / Time No Known Allergies Allergy Verified 04/14/22 12:17 PFSH Acute 2 PFSH: Medical History (Updated 08/28/23 @ 19:23 by Marques Hays DO) Dyslipidemia Type 2 diabetes mellitus without complications CAD (coronary artery disease) Acute NV Essential (primary) hypertension Surgical History (Updated 08/28/23 @ 18:04 by Thomas Nava DO) Hx of CABG Vitals/I&O/Wt Last Vital Signs Temp 98.2 F 08/28/23 16:04 Pulse 64 08/28/23 18:13 Resp 18 08/28/23 16:04 BP 172/124 08/28/23 18:13 Pulse Ox 90 08/28/23 18:00 O2 Del Method Room Air 08/28/23 18:00 Weight last 48 hrs Weight 165 lb Physical Exam 2 Narrative: General: Cooperative patient in no apparent distress. Well developed. HEENT: Normocephalic, Atraumatic. External ears normal. Nasal passages patent without drainage. MMM. Heart: RRR. Resp: LCTA. No respiratory distress, no use of accessory muscles. Abd: Soft, non-tender. Non-distended. Extremities: No edema. Skin: No rash or lesions on exposed areas. Neuro: No focal motor or sensory loss. Gait is normal. Data 08/28/23 16:16 08/28/23 16:16 A&P Assessment and plan (1) Non-ST elevation NV (NSTEMI): (2) CAD (coronary artery disease): (3) Essential (primary) hypertension: (4) Type 2 diabetes mellitus without complications: (5) Dyslipidemia: (6) UTI (urinary tract infection): Plan Sally Henderson is a 83 year old female with PMH of CAD, NV with stent placement and CABG, HTN, TIIDM, HLD admitted for possible NSTEMI. Admit to Cardiac Stepdown for observation. Will plan for stress test tomorrow. NPO after midnight. Telemetry. Cardiac CC diet now. Initial troponin elevated to 151 with T-wave inversion in V2-6 on initial EKG. Continue troponin and EKG trends. Received heparin and ASA in ER. She is on Plavix, statin. CXR unremarkable. Vitals have been stable in ER with HR in 60's and BP slightly elevated. UA suggestive of infection. Culture pending. Will start on Rocephin empirically. Repeat am labs. Will check A1c, lipid panel, TSH. Continue Heparin per protocol. Continue home medications for chronic illnesses. Code Status: Full IVF: None DVT PPx: Heparin GI PPx: None ABx: Rocephin. Diet: Cardiac CC, NPO after midnight. Discharge plan: Home when appropriate. Attestations 2 Medical Necessity Statement*: Placed to observation for cardiac workup, stress testing, treatment of UTI, EKG and troponin trend, labs and supportive care. Stay will likely be less than 2 midnights. Coding Level of Care Code Acute Code for Chg Fwd Moderate MDM includes number and complexity of problems actively addressed during encounter, amount and/or complexity of data reviewed/ordered and described risk of complication, morbidity or mortality of management as documented Diagnoses Non-ST elevation NV (NSTEMI) I21.4 CAD (coronary artery disease) I25.10 Essential (primary) hypertension I10 Type 2 diabetes mellitus without complications E11.9 Dyslipidemia E78.5 UTI (urinary tract infection) N39.0
[2023-08-28] MEDS: heparin 5,000 unit/mL INJ 1 mL IV (19:11)
[2023-08-28] MEDS: heparin drip 25,000 UNIT/500 ML PREMIX 20.96 UNIT IV (19:17)
[2023-08-28 19:49] LABS: Troponin 5 1HR 328.3 ng/L (0-10); Troponin 5 1HR Delta 177.3 ABS# (0-10)
--- NOTE | 2023-08-28 22:04 | ECG_ITS ---
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 Measurements Intervals [place] Rate: 58 P: 64 [place]: 154 QRS: -59 QRSD: 86 T: 142 QT: 502 QTc: 494 Interpretive Statements SINUS BRADYCARDIA LEFT AXIS DEVIATION [QRS AXIS < -30] S1-S2-S3 PATTERN, CONSISTENT WITH PULMONARY DISEASE, RVH, OR NORMAL VARIANT ST DEVIATION AND MODERATE T-WAVE ABNORMALITY, CONSIDER LATERAL ISCHEMIA [-0.1+ mV T-WAVE IN I/aVL/V5/V6] Compared to ECG 08/28/2023 18:38:47 Right ventricular hypertrophy now present T-wave abnormality now present Possible ischemia now present Sinus rhythm no longer present Left ventricular hypertrophy no longer present ST (T wave) deviation no longer present Electronically Signed On 08-29-2023 12:31:23 CDT by Boaz Jaramillo M.D. [id number]
[2023-08-28 22:08] LABS: Glucose Point of Care 94 mg/dL (70-110)
[2023-08-28] MEDS: isosorbide mononitrate ER 60 mg Tablet PO (23:12)
[2023-08-28] MEDS: losartan 50 mg Tablet 25 MG PO (23:13)
[2023-08-28] MEDS: atorvastatin 40 mg Tablet PO (23:13)
[2023-08-28] MEDS: clopidogrel 75 mg Tablet PO (23:13)
[2023-08-28] MEDS: gabapentin 300 mg Capsule 600 MG PO (23:13)
[2023-08-28] MEDS: cefTRIAXone 1,000 MG in sodium chloride 0.9% (plus) 50 ML 100 MG IV (23:14)
[2023-08-28 23:24] LABS: Troponin 5 6HR 517.4 ng/L (0-10); Troponin 5 6HR Delta 366.4 ng/L (0-12)
--- NOTE | 2023-08-28 23:56 | PM.MISC ---
Miscellaneous Note Purpose of Documentation: Positive troponins 151, 328, 517 Note: Notified of 6-hour troponin result Patient's symptoms resolved Already receiving IV heparin drip on Plavix and aspirin Canceled stress test Call Dr. Otoole He will cath tomorrow Discussed with RN and patient. Patient notified of heart attack She expressed understanding standing of undergoing a cardiac catheterization. She had WI with CABG 10 to 12 years ago.
[2023-08-29] VITALS (67 sets, daily range): BP systolic 109–203; BP diastolic 56–142; PULSE 56–92; RESP 13–33; TEMP 36.5–37.1; O2SAT 90–96; BMI 37.3
[2023-08-29 01:36] LABS: Partial Thromboplastin Time 80.3 SECONDS (23.9-36.7)
[2023-08-29 01:41] LABS: Anion Gap 12.1 (5-19); Blood Urea Nitrogen 26 mg/dL (8-23); Calcium 8.9 mg/dL (8.5-10.5); Carbon Dioxide 29 mmol/L (22-29); Chloride 107 mmol/L (98-107); Glucose 101 mg/dL (65-115); Magnesium 2.1 mg/dL (1.7-2.3); Osmolality Calculated 303 mOsm/kg (285-295); Potassium 4.1 mmol/L (3.5-5.1); Sodium 144 mmol/L (136-145)
[2023-08-29 01:46] LABS: Chol HDL Ratio 2.81 mg/dL (0.0-4.40); Cholesterol 160 mg/dL (0-200); HDL Cholesterol 57 mg/dL (60-100); LDL Cholesterol Calculated 83 mg/dL (50-129); LDL HDL Ratio 1.46 RATIO (0.00-3.22); Triglycerides 101 mg/dL (0-150)
[2023-08-29 01:48] LABS: Estmated Average Glucose 166; Hemoglobin A1C 7.4 % (4.0-6.0)
--- NOTE | 2023-08-29 06:16 | PM.CONSULT ---
Providers/Reason For Consult Consulting Physician/Specialty*: Boaz Jaramillo/ Cardiology Reason for Consult*: NSTEMI Requesting Physician: Dr Cooper Attending Physician: Marques Hays DO Primary Care Provider: Antonio Delgado MD History of Present Illness History of Present Illness Sally Henderson is a 83 year old female with a past medical history of diabetes, CAD with CABG several years ago who presented to hospital with left shoulder and arm pain. Symptoms have been going on for 2 days. Troponin was significantly elevated and trended up from baseline of 151 to 517. EKG shows sinus rhythm with T wave inversions in lateral leads. Review of Systems General: Reports: 10 or more systems reviewed and unremarkable except in HPI and below Medications/Allergies Home Medications Medication Instructions Recorded Confirmed Last Taken Type clopidogrel 75 mg tablet 75 mg PO BEDTIME 05/28/19 08/29/23 04/14/22 History last filled 09/07/21 gabapentin 600 mg tablet 600 mg PO BEDTIME 05/28/19 08/29/23 04/14/22 History atorvastatin 40 mg tablet 40 mg PO BEDTIME 09/19/20 08/29/23 04/14/22 History losartan 25 mg tablet 25 mg PO BEDTIME 09/19/20 08/29/23 04/14/22 History last filled 09/07/21 multivitamin 1 tab PO BEDTIME 09/19/20 08/29/23 04/14/22 History ascorbic acid (vitamin C) 1,000 mg 1,000 mg PO DAILY 04/14/22 08/29/23 04/14/22 History tablet (Vitamin C) isosorbide mononitrate 60 mg 60 mg PO BEDTIME 04/14/22 08/29/23 04/14/22 History tablet,extended release 24 hr calcium carbonate 500 mg PO DAILY PRN unknown 08/29/23 08/29/23 Unknown History insulin degludec 200 unit/mL (3 30 unit SUBCUT DAILY@17 08/29/23 08/29/23 Unknown History mL) subcutaneous pen (Tresiba FlexTouch U-200 insulin) tramadol 50 mg tablet 100 mg PO BEDTIME 08/29/23 08/29/23 Unknown History Allergies Allergy/AdvReac Type Severity Reaction Status Date / Time No Known Allergies Allergy Verified 08/29/23 09:19 Current Medications Generic Name Dose Route Start Last Admin Trade Name Freq PRN Reason Stop Dose Admin Atorvastatin Calcium 40 mg 08/28/23 21:00 08/28/23 23:13 Atorvastatin 40 Mg Tablet PO 40 mg BEDTIME LI Administration Clopidogrel Bisulfate 75 mg 08/28/23 21:00 08/28/23 23:13 Clopidogrel 75 Mg Tablet PO 75 mg BEDTIME LI Administration Gabapentin 600 mg 08/28/23 21:00 08/28/23 23:13 Gabapentin 300 Mg Capsule PO 600 mg BEDTIME LI Administration Heparin Sodium (Porcine) 0 unit 08/28/23 17:37 08/28/23 19:11 Heparin 5,000 Unit/Ml Inj 1 Ml IV 3,800 unit PRN PRN Administration Heparin weight-base protocol Protocol Heparin Sodium/Sodium Chloride 25,000 unit in 500 mls @ 0 mls/hr 08/28/23 17:45 08/29/23 01:54 Heparin Drip IV 12.69 unit/kg/hr .Q0M IL 19 mls/hr Titration Protocol Per Protocol Ceftriaxone Sodium 1,000 mg/ 50 mls @ 100 mls/hr 08/28/23 20:00 08/29/23 02:26 Sodium Chloride IV Infused Q24H LI Infusion Protocol Isosorbide Mononitrate 60 mg 08/28/23 21:00 08/28/23 23:12 Isosorbide Mononitrate Er 60 Mg Tablet PO 60 mg BEDTIME LI Administration Losartan Potassium 25 mg 08/28/23 21:00 08/28/23 23:13 Losartan 50 Mg Tablet PO 25 mg BEDTIME LI Administration PFSH Acute PFSH: Medical History Dyslipidemia Type 2 diabetes mellitus without complications CAD (coronary artery disease) Acute ND Essential (primary) hypertension Surgical History Hx of CABG Vitals/I&O/Wt Last Vital Signs Temp 98.2 F 08/29/23 04:45 Pulse 66 08/29/23 04:45 Resp 18 08/29/23 04:45 BP 146/56 08/29/23 04:45 Pulse Ox 92 08/29/23 04:45 O2 Del Method Room Air 08/28/23 23:28 08/28/23 08/28/23 08/29/23 14:59 22:59 06:59 Intake Total 188.685 / 188.685 Output Total 650 / 650 Balance -461.315 / -461.315 Weight last 48 hrs Weight 191 lb 4 oz Weight 165 lb Weight 165 lb Physical Exam Narrative: GENERAL: Patient is alert, awake and oriented x3. [] NECK: No jugular vein distension. [] HEENT: No cyanosis. No icterus. No pallor. [] HEART: Regular S1 and S2. No murmur, rub or gallop. [] LUNGS: Clear to auscultate bilaterally. [] CENTRAL NERVOUS SYSTEM: Grossly nonfocal. [] EXTREMITIES: Lower extremities with 1+ edema bilaterally. Data 08/28/23 16:16 08/29/23 01:06 A&P Assessment and plan (1) Non-ST elevation ND (NSTEMI): (2) Dyslipidemia: (3) CAD (coronary artery disease): (4) Essential (primary) hypertension: (5) Hx of CABG: Plan Patient has presented with typical chest pain symptoms and troponins have significantly increased. Findings consistent with non-ST elevation ND. Will proceed with coronary angiogram with possible percutaneous coronary intervention. Risks and benefits of the procedure were discussed with the patient. She understands it and wants to proceed. Continue anticoagulation. Patient on aspirin and Plavix. We will order echocardiogram. Thank you for involving us with care of this patient. We will continue to follow. Please call with questions. Consult Attestations Medical Necessity Statement: Care expected to cross 2 midnights. Coding Level of Care Code Acute Code for [facility] Diagnoses Non-ST elevation ND (NSTEMI) I21.4 Dyslipidemia E78.5 CAD (coronary artery disease) I25.10 Essential (primary) hypertension I10 Hx of CABG Z95.1
[2023-08-29 06:25] LABS: Glucose Point of Care 50 mg/dL (70-110)
--- NOTE | 2023-08-29 07:09 | XACV_ITS ---
Exam Room: 2 Ht: 152 cm Wt: 87 kg BSA: 1.96 m2 Gender: Female : 1940 Any Known Allergies: No known allergies Exam Priority: Routine Procedure(s): Procedure Description: Diagnostic procedure Procedure Description: PCI procedure Procedure Description: Aortogram Procedure Description: Venous Graft Catheterization Procedure Description: GILLILAND Graft Catheterization Procedure Description: PTCA Procedure Description: Miscellaneous Procedure Description: ACT Procedure Description: Coronary Angiography Diagnostic Cath Status: Urgent Diagnostic Findings * Left Anterior Descending has chronic total occlusion in the mid LAD. * Right Coronary Artery has chronic mid RCA total occlusion. * Poximal left circumflex artery is calcified and has significant 80-90% stenosis. Mid Circumflex: 99% subtotal occlusion, SEAN: 2 flow. * Bypass Grafts: GILLILAND to LAD is patent. After touchdown apical LAD has diffuse disease. SVG grafts to RCA and left circumflex artery are occluded.. * Left Main has no disease. * Coronary angiography shows right dominance. PCI Status: Urgent PCI Indication: NSTE - ACS Interventional Findings * Procedure detail: We engaged left main artery with XB 3.5 guide catheter. IV heparin was administered to maintain anticoagulation. Initially we tried to cross the stenosis with run-through wire however it did not cross. We then used a helicopter pilot 50 coronary wire to cross the stenosis. We then attempted to cross the stenosis with 2.0 balloon however it did not cross. We then used a 1.2 x 12 mm semicompliant balloon to perform balloon angioplasty of mid and proximal left circumflex artery. We then predilated with 2.0 x 12 mm semicompliant balloon. Balloon angioplasty was also performed with 2.25 x 8 mm NC balloon. However we could not cross any bigger balloon. We even attempted with guide extension however bigger balloon could not be advanced. At this time as flow was good in the artery, we decided to abort further attempts at stent placement. Guide wire and guide catheter were removed. Patient left the veterinary laboratory technician in a stable condition. . * Proximal Circumflex: 70% stenosis treated with a AB MINI TREK 1.20X12 RX BALLOON, AB MINI TREK 2.00X12 RX BALLOON, AB MINI TREK 2.00X6 RX BALLOON, AB MINI TREK 1.50X12 RX BALLOON, AB TREK 2.50X15 RX BALLOON, and MDT NC EUPHORA RX [id number] BALLOON. 70% residual stenosis, SEAN: 3 flow. * Mid Circumflex: 99% stenosis treated with a AB MINI TREK 2.00X12 RX BALLOON. 70% residual stenosis, SEAN: 3 flow. Conclusions 1. Subtotal occlusion of the left circumflex artery. S/p 2. balloon angioplasty however stent could not be advanced secondary to heavily calcification 3. of the vessel. 4. Plan for medical therapy. If continues having symptoms, can consider high risk intervention with arthrectomy.. 5. Patient has prior CABG. 6. Proximal Circumflex was treated with a Balloon, Balloon, Balloon, Balloon, Balloon, and Balloon. 7. Mid Circumflex was treated with a Balloon. Recommendations * Dual antiplatelet therapy with aspirin and plavix. * If has chest pain we will start nitro gtt. * High intensity statin therapy. Interventional RX Recommendation: PCI w/o planned CABG Diagnostic RX Recommendation: PCI w/o planned CABG Anticoagulation: Heparin Pressures Phase:Rest AO : 124 / 63 ( 90 ) @ 10:57:00 AM 135 / 70 ( 101 ) @ 11:13:00 AM 171 / 71 ( 108 ) @ 11:20:00 AM 187 / 79 ( 120 ) @ 11:27:00 AM 124 / 65 ( 90 ) @ 11:43:00 AM 136 / 68 ( 96 ) @ 11:48:00 AM 139 / 72 ( 100 ) @ 11:48:00 AM 142 / 72 ( 99 ) @ 11:50:00 AM 96 / 54 ( 73 ) @ 11:55:00 AM 140 / 67 ( 97 ) @ 11:57:00 AM 178 / 81 ( 120 ) @ 12:04:00 PM 108 / 58 ( 79 ) @ 12:20:00 PM Clinical Evaluation EBL: 5mL-10mL Procedural Details Pre-Procedure Time Out. Identified patient by full name and date of as verbalized by the patient/guarantor. Does the consent match the physician's order: Yes. Accurate & Complete Informed Consent: Yes. Inpatient/Outpatient History & Physical on Chart: Yes. If H&P is completed, is and addenduem needed: No; If yes, is the addendum complete: N/A. Visualize and Verify Site with Patient/Guarantor: N/A. Relevant Radiology Images available: Yes. Pre-op teaching completed and patient verbalized understanding. The risks, benefits, and alternatives of sedation and/or procedure were discussed by physician. The patient agrees to continue. Procedure started. Current Diagnosis : Chest Pain. [facility] Clinical Fraility Score: 4: Vulnerable. Cycle Specialist Indications: ACS > 24 hours. Chest Pain Symptom Assessment: Typical Angina Symptoms. Correct patient, site and procedure confirmed by cath team. Current diagnosis: NSTEMI. PERRLA. Strong, equal hand general handling supervisor bilaterally. Lungs clear x 5 lobes. IV Site on Arrival: 20 gauge in the right anticubital. IV Fluids: 0.9% NaCl at KVO. 0 mL infused prior to veterinary laboratory technician. Oxygen started at 2liters/min via nasal canula. bilateral groins was prepped with chloroprep then draped in the usual sterile fashion. Baseline sample Acquired. HR: 65 BPM. Physician arrived. Physician scrubbed in. Immediate Pre-Procedure Time Out. Correct Patient: Yes; Correct Procedure: Yes; Correct Site: Yes; Correct Patient Position: Yes; Correct Supplies: Yes; Dried Flammable Prep: Yes; Blood Products Available: N/A;. Lidocaine 1% infiltrated to the right groin. Arterial access obtained with micropuncture set. Wire unable to advance. Wire and needle out. Arterial access obtained with micropuncture set. A Right femoral angiogram was performed. A 5 honduran JL4 catheter in over wire. Multiple views taken of left coronary artery. Catheter removed over the standard wire. A 5 honduran JR4 catheter in over wire. Multiple views taken of right coronary artery. SVG to RCA occluded. Glidewire inserted. Wire out. GILLILAND to LAD visualized. Catheter removed over the standard wire. A 5 honduran AL1 catheter in over wire. Catheter removed over the standard wire. A 5 honduran LCB catheter in over wire. Catheter removed over the standard wire. A 5 honduran Angled Pig catheter in over wire. Aortogram performed in [place] @ 10 mL/second for a total of 30 mL. Catheter removed over the standard wire. Physician review of cine films. 6 honduran XB 3.5 guide catheter was inserted over the wire. Guide catheter out. 6 honduran XB 3 guide catheter was inserted over the wire. Guide catheter out. 5Fr Radius App Dilator inserted through the sheath. Dilator out. A Right femoral angiogram was performed. 6 honduran XB 3 guide catheter was inserted over the wire. Guide catheter out. The 6Fr sheath was exchanged for a new 6Fr sheath. 6 honduran XB 3 guide catheter was inserted over the wire. Cremator 50 guidewire was advanced through the guide catheter to lesion in the prox Circ. [id number] inserted to lesion in the prox Circ. Balloon unable to cross. Balloon removed OTW. 1.2x12mm Balloon inserted to lesion in the prox Circ. Inflation number : 1 A AB MINI TREK 1.20X12 RX BALLOON was prepped and advanced across the Prox CX , then inflated to 8 MEHNAZ for 0:08 seconds. Inflation number: 2 The AB MINI TREK 1.20X12 RX BALLOON was reinflated across the Prox CX, to 8 MEHNAZ for 0:10 seconds. Inflation number: 3 The AB MINI TREK 1.20X12 RX BALLOON was reinflated across the Prox CX, to 10 MEHNAZ for 0:09 seconds. Inflation number: 4 The AB MINI TREK 1.20X12 RX BALLOON was reinflated across the Prox CX, to 12 MEHNAZ for 0:09 seconds. Inflation number: 5 The AB MINI TREK 1.20X12 RX BALLOON was reinflated across the Prox CX, to 12 MEHNAZ for 0:09 seconds. Balloon out. Inflation number : 6 A AB MINI TREK 2.00X12 RX BALLOON was prepped and advanced across the Prox CX , then inflated to 10 MEHNAZ for 0:11 seconds. Balloon out. Inflation number : 7 A AB MINI TREK 2.00X6 RX BALLOON was prepped and advanced across the Prox CX , then inflated to 10 MEHNAZ for 0:13 seconds. Inflation number: 8 The AB MINI TREK 2.00X6 RX BALLOON was reinflated across the Prox CX, to 10 MEHNAZ for 0:07 seconds. Inflation number: 9 The AB MINI TREK 2.00X6 RX BALLOON was reinflated across the Prox CX, to 10 MEHNAZ for 0:10 seconds. Balloon out. Inflation number : 10 A AB MINI TREK 1.50X12 RX BALLOON was prepped and advanced across the Prox CX , then inflated to 8 MEHNAZ for 0:17 seconds. Inflation number: 11 The AB MINI TREK 1.50X12 RX BALLOON was reinflated across the Prox CX, to 10 MEHNAZ for 0:08 seconds. Balloon out. Inflation number: 1 The AB MINI TREK 2.00X12 RX BALLOON was reinflated across the Mid CX, to 12 MEHNAZ for 0:17 seconds. Inflation number: 2 The AB MINI TREK 2.00X12 RX BALLOON was reinflated across the Mid CX, to 12 MEHNAZ for 0:08 seconds. Inflation number: 4 The AB MINI TREK 2.00X12 RX BALLOON was reinflated across the Mid CX, to 12 MEHNAZ for 0:06 seconds. Inflation number: 5 The AB MINI TREK 2.00X12 RX BALLOON was reinflated across the Mid CX, to 12 MEHNAZ for 0:06 seconds. Inflation number: 6 The AB MINI TREK 2.00X12 RX BALLOON was reinflated across the Mid CX, to 14 MEHNAZ for 0:09 seconds. Inflation number: 7 The AB MINI TREK 2.00X12 RX BALLOON was reinflated across the Mid CX, to 16 MEHNAZ for 0:10 seconds. Balloon out. ACT drawn. Results out of range high seconds. Therapeutic limits - pre-heparin administration 90-150 seconds and monitoring heparin during a vascular procedure >250 seconds. 2.5x15mm Balloon inserted to lesion in the prox Circ. Balloon out OTW. Guideliner inserted OTW. Inflation number : 12 A AB TREK 2.50X15 RX BALLOON was prepped and advanced across the Prox CX , then inflated to 10 MEHNAZ for 0:10 seconds. Balloon out. Results checked. Inflation number: 13 The AB MINI TREK 2.00X12 RX BALLOON was reinflated across the Prox CX, to 16 MEHNAZ for 0:11 seconds. Inflation number: 14 The AB MINI TREK 2.00X12 RX BALLOON was reinflated across the Prox CX, to 16 MEHNAZ for 0:07 seconds. Inflation number: 15 The AB MINI TREK 2.00X12 RX BALLOON was reinflated across the Prox CX, to 14 MEHNAZ for 0:06 seconds. Inflation number: 7 The AB MINI TREK 2.00X12 RX BALLOON was reinflated across the Mid CX, to 12 MEHNAZ for 0:08 seconds. Inflation number: 8 The AB MINI TREK 2.00X12 RX BALLOON was reinflated across the Mid CX, to 12 MEHNAZ for 0:06 seconds. Inflation number: 16 The AB MINI TREK 2.00X12 RX BALLOON was reinflated across the Prox CX, to 16 MEHNAZ for 0:08 seconds. Inflation number: 17 The AB MINI TREK 2.00X12 RX BALLOON was reinflated across the Prox CX, to 17 MEHNAZ for 0:14 seconds. Balloon out. Results checked. 2.5x15mm Balloon inserted to lesion in the prox Circ. Balloon out. Inflation number: 18 The AB MINI TREK 2.00X12 RX BALLOON was reinflated across the Prox CX, to 10 MEHNAZ for 0:06 seconds. Balloon out. Inflation number : 19 A MDT NC EUPHORA RX 2.37U80YS BALLOON was prepped and advanced across the Prox CX , then inflated to 12 MEHNAZ for 0:12 seconds. Inflation number: 20 The MDT NC EUPHORA RX 2.50L51TL BALLOON was reinflated across the Prox CX, to 16 MEHNAZ for 0:07 seconds. Inflation number: 21 The MDT NC EUPHORA RX 2.77S49KQ BALLOON was reinflated across the Prox CX, to 12 MEHNAZ for 0:07 seconds. Balloon out. [id number] Balloon inserted to lesion in the prox Circ. Balloon out. Guideliner out. Wire out. Guide catheter out. ACT drawn. Results 298 seconds. Therapeutic limits - pre-heparin administration 90-150 seconds and monitoring heparin during a vascular procedure >250 seconds. A Suture was successful obtaining hemostatsis at the Right Femoral artery insertion site. Arterial sheath flushed and connected to tranducer and pressure bag with heparinized saline. Post Procedure: Pulses reassessed and unchanged. PERRLA. Strong, equal hand general handling supervisor bilaterally. No VTE prophylaxis required. Medication's Wasted: Lidocaine 1% = 8 mL. Total IV fluids: 100 mL. Post-op diagnosis: Total sub occlusion of the CX. Complications: None. Estimated blood loss: 5mL-10mL. Responsiveness - Normal response to verbal stimuli; alert and oriented, PERRLA. Airway - Unaffected, no intervention required; spontaneous ventilation. Circulation: W/N/L, pulses unchanged. Nausea/Vomiting: No. Vital chart was stopped. Procedure completed. Patient transferred by bed to CPRU. Access Site Site: Right Femoral artery Sheath Size: 6 Fr Hemostasis Method: Suture Hemostasis Success: Successful Procedure Medications Start: 9:48 AM Stop: 9:48 AM Medication: Versed 1 mg and Fentanyl 25 mcg Amount: 1 Route: I.V. Start: 9:51 AM Stop: 9:51 AM Medication: Benadryl Amount: 25 mg Route: I.V. Start: 10:19 AM Stop: 10:19 AM Medication: Versed Amount: 1 mg Route: I.V. Start: 10:21 AM Stop: 10:21 AM Medication: Fentanyl Amount: 25 mcg Route: I.V. Start: 10:24 AM Stop: 10:24 AM Medication: Heparin Amount: 7000 units Route: I.V. Start: 10:28 AM Stop: 10:28 AM Medication: Fentanyl Amount: 25 mcg Route: I.V. Start: 10:40 AM Stop: 10:40 AM Medication: Heparin Amount: 1000 units Route: I.V. Start: 10:46 AM Stop: 10:46 AM Medication: Fentanyl Amount: 25 mcg Route: I.V. Start: 11:03 AM Stop: 11:03 AM Medication: Versed Amount: 1 mg Route: I.V. Start: 11:05 AM Stop: 11:05 AM Medication: Fentanyl Amount: 25 mcg Route: I.V. I, the attending physician, have reviewed and verified all procedure medications. Yes, all medications given per verbal order History/Risk Factors Hypertension: Yes Dyslipidemia: Yes Peripheral Arterial Disease (PAD): No Myocardial Infarction (CA): Yes Obesity: No Renal Disease: No Prior 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 PCI: Yes CABG: Yes Valve Surgery: No Report Signatures Finalized by Boaz Jaramillo MD on 09/12/2023 06:51 PM
[2023-08-29 07:24] LABS: Glucose Point of Care 111 mg/dL (70-110)
--- NOTE | 2023-08-29 09:19 | PC.PHAR ---
pt states she takes care of her own medications-pt states she is taking ultram 50mg takes 2 tabs (100mg)hs ext shows last filled 06/12/23 30d/s #120 1 tab po q6h prn-pt states she uses her tresiba flextouch u-200 30 units daily@17 ext shows last filled 06/15/23 27 units daily-pt states she is still taking losartan 25mg hs ext doesnt show when last filled but previously entered med list had note saying rx last filled 09/07/21 90d/s pt states she has a ton of it at home and still takes-notes are made in the pharmacy comments
--- NOTE | 2023-08-29 09:22 | PC.CHAP ---
Pastoral Care Encounter/Spiritual Assessment Type of Contact [] Declined painting supervisor visit [] Patient/Family/Request visit [] Outpatient visit [] Follow-up visit [] Physician referral [] Code/Alert [x] Routine visit [] Staff referral [] Actively dying [] Patient sleeping [] Family support [] [] Out of room [] Palliative care [] [] Receiving care in room [] Pre-surgical visit [] Trauma [] Long length of stay [] ICU visit [] Other: Relational/Emotional Strength [x] Patient feels connected with others/family/visitors/staff [] Distress [] Loneliness/isolation [] Abandonment Spirituality of Patient [x] Person of Mckenna [] Attends Nondenominational of their [place] [x] Believes in Prayer [] Reads Bible or Mu-Ism materials [] There are Spiritual issues to be addressed Steward/Stewardess Second Class 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 [x] Prayer [x] Active listening [] Non-anxious presence [x] Spiritual/emotional support [] Crisis/trauma care [] Spiritual counseling [] Bereavement support [] Provided bereavement packet [] Provided Bible/devotional materials [] Provided toy/stuffed animal, coloring book to patient or family member [] Provided Communion [] Anointing/[place] [] Salvation [x] Completed spiritual assessment [] Other: Impact on Illness or Injury [] Angry [] Fearful [] Anxious [] Often cries [] Exhaustion [] Unable to work [] Unable to attend jew [] Unable to walk/stand [] Unable to read [] Unable to drive [] Unable to eat/drink [] Unable to sleep [] Unable to be with family [] Patient intubated [] Other: Summary Time spent with patient 5 min
--- NOTE | 2023-08-29 09:46 | W.PM.OPSUD ---
Surgery/Procedure H&P Update DATE OF PROCEDURE: August 29, 2023 DATE H&P PERFORMED: 08/29/23 H&P UPDATE INFORMATION: I have reviewed H&P completed within last 30 days, I have examined patient prior to procedure and No changes to prior documentation PREOP DIAGNOSIS: NSTEMI PRIMARY INDICATION FOR PROCEDURE: NSTEMI PLANNED PROCEDURE: Left heart cath with possible percutaneous coronary intervention PATIENT REASSESSED PRIOR TO SEDATION, WITH NO CHANGE NOTED: Yes PHYSICAL EXAM: alert, oriented x 3, clear to auscultation bilaterally and regular rate & rhythm AIRWAY EVAL/ANESTHESIA PLAN: normal airway, ASA III, Local Anesthesia, Risks, benefits & alternatives of sedation and/or procedure discussed and Patient agrees to continue as planned ADDITIONAL INFORMATION: Moderate sedation
[2023-08-29 12:21] LABS: Glucose Point of Care 61 mg/dL (70-110)
[2023-08-29 14:57] LABS: Partial Thromboplastin Time 118.5 SECONDS (23.9-36.7)
--- NOTE | 2023-08-29 15:54 | P.PN_ITS ---
Subjective 2 Subjective: No events overnight. 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 Denies chest pain and dyspnea. Resting well after procedure. Medications: Reviewed: Yes Vitals/I&O/Wt Last Vital Signs Temp 98.2 F 08/29/23 11:55 Pulse 56 L 08/29/23 13:00 Resp 18 08/29/23 13:00 BP 131/65 08/29/23 11:55 Pulse Ox 90 08/29/23 13:00 O2 Del Method Room Air 08/29/23 13:00 08/29/23 08/29/23 08/29/23 06:59 14:59 22:59 Intake Total 188.685 / 188.685 360.65 / 360.65 Output Total 650 / 650 100 / 100 Balance -461.315 / -461.315 260.65 / 260.65 Weight last 48 hrs Weight 191 lb 4 oz Weight 191 lb 4 oz Weight 165 lb Weight 165 lb Physical Exam 2 Narrative: General: Cooperative patient in no apparent distress. Well developed. HEENT: Normocephalic, Atraumatic. External ears normal. Nasal passages patent without drainage. MMM. Heart: RRR. Resp: LCTA. No respiratory distress, no use of accessory muscles. Abd: Soft, non-tender. Non-distended. Extremities: No edema. Skin: No rash or lesions on exposed areas. Neuro: No focal motor or sensory loss. Data 08/28/23 16:16 08/29/23 01:06 A&P Assessment and plan (1) Non-ST elevation VA (NSTEMI): (2) CAD (coronary artery disease): (3) Essential (primary) hypertension: (4) Type 2 diabetes mellitus without complications: (5) Dyslipidemia: (6) UTI (urinary tract infection): Plan Sally Henderson is a 83 year old female with PMH of CAD, VA with stent placement and CABG, HTN, TIIDM, HLD admitted for NSTEMI. Continue inpatient monitoring. Chest pain improved at this time. Cardiology consulted, took for cath this morning. Recommended pharmacologic management. Unable to stent due to risks. Continue ASA, Statin, Plavix, Heparin. BP stable. Continue current medications. Will Continue Rocephin for UTI. UCx pending. Continue home medications for chronic illnesses. Code Status: Full IVF: None DVT PPx: Heparin GI PPx: None ABx: Rocephin. Diet: Cardiac CC Discharge plan: Home when appropriate. Attestations 2 Medical Necessity Statement*: Will need continued inpatient monitoring for treatment of NSTEMI, Cardiology workup, IV abx, cultures, labs and supportive care. Hospitalization will cross 2 midnights. Coding Level of Care Code Acute Code for Chg Fwd Moderate MDM includes number and complexity of problems actively addressed during encounter, amount and/or complexity of data reviewed/ordered and described risk of complication, morbidity or mortality of management as documented Diagnoses Non-ST elevation VA (NSTEMI) I21.4 CAD (coronary artery disease) I25.10 Essential (primary) hypertension I10 Type 2 diabetes mellitus without complications E11.9 Dyslipidemia E78.5 UTI (urinary tract infection) N39.0
--- NOTE | 2023-08-29 16:00 | PC.NURSE ---
echocardiogram ancillary staff in room trying to pull sheath on this pt but staff still doing echocardiogram, he said it will be done in 30 mins. family at bedside and they are notified.
--- NOTE | 2023-08-29 16:45 | PC.NURSE ---
sheath pulled prior to sheath pull, pt has been restless due to her moving her legs and chronic back pain. she denies any chest pain or leg or back pain. Pt BP is 192/40 on left arm. notified dr albarran and received orders for 25 mcg of IVP Fentanyl once, 20 mg of IVP hydralazine once for BP. Pre medicated with fentanyl prior to sheath pull. 6 Fr sheath on right femoral artery removed. manual pressure held for 20 mins, no hematoma or significant cont.bleeding, no swelling. pt denies any back or leg pain during the procedure. pedal pulses are palpable +3. Pt BP still elevated while holding pressure, 20 mg of iv hydralazine once order given. Vital signs monitored. educated pt on activity restrictions such as bedrest, no leg or hip bending and to call nurse for any unusual pain, pressure or bleeding. pt verbalizes understanding.
[2023-08-29 16:54] LABS: Partial Thromboplastin Time 37.6 SECONDS (23.9-36.7)
[2023-08-29 17:12] LABS: Glucose Point of Care 141 mg/dL (70-110)
--- NOTE | 2023-08-29 17:26 | USCV_ITS ---
Sally Henderson Age: 83 Gender: F : 1940 Exam Date: 08/29/2023 18:03 Ordering Phys: Boaz Jaramillo M.D ([email or web address]) Technologist: ROXANE Exam Location: [facility] [place] Indication: NSTEMI s/p cardiac catheterization BP: 155 / 71 HR: 65 Rhythm: Sinus Technical Quality: Adequate MEASUREMENTS (Male / Female) Normal Values 2D ECHO LV Diastolic Diameter PLAX 4.9 cm 4.2 - 5.9 / 3.9 - 5.3 cm IVS Diastolic Thickness 1.4 cm 0.6 - 1.0 / 0.6 - 0.9 cm IVS Systolic Thickness 1.7 cm LVPW Diastolic Thickness 1.4 cm 0.6 - 1.0 / 0.6 - 0.9 cm LVPW Systolic Thickness 1.9 cm LVOT Diameter 1.7 cm LV Ejection Fraction 2D Teich 34.4 % LV Ejection Fraction MOD 2C 47.9 % LV Ejection Fraction 2C AL 47.8 % LA Diameter 4.3 cm LA Sys Volume AL 76.4 cm cubed LA Sys Volume Index AL 38.9 cm cubed/m squared Aorta at Sinotubular Diameter 2.7 cm IVC Diameter 1.5 cm M-MODE LA Ao Ratio MM 1.6 AV Cusp Separation MM 2.0 cm DOPPLER AV Peak Velocity 124.0 cm/s LVOT Peak Velocity 96.0 cm/s AV Area Cont Eq vti 2.2 cm squared AV Area Cont Eq pk 1.7 cm squared MV Peak Velocity 112.0 cm/s MV Area PHT 2.6 cm squared Mitral E to A Ratio 0.8 TR Peak Velocity 300.0 cm/s TR Peak Gradient 36.0 mmHg TV Peak E Velocity 33.0 cm/s Right Atrial Pressure 10.0 mmHg Pulmonary Artery Systolic Pressu 46.0 mmHg PV Peak Velocity 112.0 cm/s FINDINGS Left Ventricle Left ventricle is normal in size. LV systolic function is normal with EF of 55-60%. Mild hypokinesis of inferolateral wall. Grade 1 diastolic dysfunction Right Ventricle Normal in size and function Right Atrium Normal in size Left Atrium Dilated Mitral Valve Structurally normal mitral valve. Trace mitral regurgitation. Aortic Valve Aortic valve is thickened. No significant stenosis or regurgitation. Tricuspid Valve Insufficient TR jet to calculate RVSP Pulmonic Valve Trace pulmonic regurgitation. Pericardium Grossly normal Aorta Normal in size IVC Appears to be normal CONCLUSIONS LV systolic function is normal with EF of 50-55% Grade 1 diastolic function Left atrium is dilated Trace mitral regurgitation Trace pulmonic regurgitation Compared to prior echocardiogram from 2013, no significant changes are seen Boaz Jaramillo MD (Electronically Signed) Final Date: 30 August 2023 07:42 S
[2023-08-29] MEDS: fentaNYL 50 mcg/mL INJ 2mL 25 MCG IVP (18:21)
[2023-08-29] MEDS: hyDRALAzine 20 mg/mL INJ 1 mL IVP (18:55)
[2023-08-29 19:23] LABS: Glucose Point of Care 122 mg/dL (70-110)
--- NOTE | 2023-08-29 19:52 | PC.NURSE ---
Hypotension 1939- pt systolic BP is 80/59; 1939- BP-90/53. notified dr albarran on her bp. received order to give 500 mg iv bolus. 2016- bp-109/47 2029- bp-133/67
--- NOTE | 2023-08-29 20:25 | ECG_ITS ---
[facility] Test Date: 2023-08-29 Pat Name: Sally Henderson Department: Room: 111 Gender: Female Rn Embedded: : 1940 Requested By: Boza Jaramillo Order Number: [id number] Reading MD: Tian Villela M.D. Measurements Intervals [place] Rate: 84 P: 60 FL: 151 QRS: -47 QRSD: 92 T: 156 QT: 385 QTc: 456 Interpretive Statements SINUS RHYTHM WITH SINUS ARRHYTHMIA LEFT ANTERIOR FASCICULAR BLOCK [QRS AXIS <= -45, QR IN I, RS IN II] ST DEVIATION AND MODERATE T-WAVE ABNORMALITY, CONSIDER ANTEROLATERAL ISCHEMIA [-0.1+ mV T-WAVE IN V3-V6] Compared to ECG 08/28/2023 22:47:12 Left anterior fascicular block now present Sinus bradycardia no longer present Left-axis deviation no longer present Right ventricular hypertrophy no longer present T-wave abnormality still present Possible ischemia still present Electronically Signed On 08-30-2023 15:29:45 CDT by Tian Villela M.D. [email or web address]
[2023-08-29] MEDS: oxyCODONE-APAP 5-325 mg Tablet 1 TAB PO (20:43)
[2023-08-29] MEDS: nitroglycerin 1 gm/inch oint Pkt 1 INCH TOPICAL (21:09)
[2023-08-29] MEDS: cefTRIAXone 1,000 MG in sodium chloride 0.9% (plus) 50 ML 100 MG IV (21:15)
[2023-08-29] MEDS: atorvastatin 40 mg Tablet PO (21:16)
[2023-08-29] MEDS: clopidogrel 75 mg Tablet PO (21:16)
[2023-08-29] MEDS: gabapentin 300 mg Capsule 600 MG PO (21:16)
[2023-08-29] MEDS: sodium chloride 0.9% 500 ML 999 ML IV (21:17)
[2023-08-29 21:21] LABS: Glucose Point of Care 220 mg/dL (70-110)
--- NOTE | 2023-08-29 21:30 | P.MISC_ITS ---
Miscellaneous Note Note: I was called about an hour ago by the nurse taking care of Sally. She is 83 and previous patient of mine when I was here full-time. I last saw her a little over 4 years ago. It appears she has been lost to follow-up in the office since. She does have a history of coronary disease and bypass surgery. She also has a history of hypertension, diabetes and a prior myocardial infarction. Her bypass surgery is a left internal mammary to the LAD and single vein graft to the circumflex into the right. She was admitted last evening with left upper extremity pain. She has been having this arm discomfort and shoulder pain on and off for some time. Late last evening her troponins came back fairly significantly elevated in the [address] Jaramillo was called last evening and saw her very early this morning. He performed angiography via the right groin earlier today. Both vein grafts to the right and circumflex are occluded. He was not able to selectively intubate the ostium of the left internal mammary graft but it appears with subselective injection of the left subclavian artery that it is open. Her [place] right is occluded and her [place] LAD is occluded. The circumflex had a subtotal stenosis in the proximal portion. He was able to place a wire across this but was only able to get a 2 mm balloon across. He made an attempt to get a 2.5 mm balloon across but it would not pass. Therefore, a stent was not possible. The lesion was somewhat improved and the flow adequate when the procedure was completed. I reviewed the films myself first and then called Dr. Jaramillo to obtain further information regarding what was done. Closure device was not utilized. Prior to the pulling the sheath the patient was quite hypertensive according to the nurses. She was given hydralazine intravenously and some fentanyl. She then had an episode of hypotension during the sheath removal. It was at that point she began to have severe left arm pain similar to what she has had at home. She became quite anxious and fearful and then developed back pain. It was at that point that I was called. I asked the nurses to send me the EKG that they had just performed. The baseline EKG reveals sinus rhythm with very minimal ST segment depression and T wave inversion in the lateral leads and lateral precordial leads. There are minor T wave abnormalities elsewhere. The EKG when she began to have severe arm pain revealed T wave inversion in leads I, L and V4 through V6 as well as worsening ST segment depression in these leads. There was no ST elevation except for minimal in aVR. I asked the nurse to apply an inch of Nitropaste now and every 6 hours, hold the evening dose of Imdur and losartan and I will start some heparin. In consultation with Dr. Vail over the phone, I decided not to take her back to the catheterization laboratory since he was unable to get even a 2.5 mm balloon across this lesion. There is probably ischemia in that [place] circumflex however we will try to cool this off medically this evening. By the time I arrived she seemed somewhat better. Her ST segments have calmed down as well.
[2023-08-29] MEDS: heparin drip 25,000 UNIT/500 ML PREMIX 24 UNIT IV (22:46)
[2023-08-29] MEDS: heparin 5,000 unit/mL INJ 1 mL 4000 UNIT IVP (22:47)
[2023-08-29] MEDS: ALPRAZolam 0.5 mg Tablet 0.25 MG PO (23:18)
--- NOTE | 2023-08-29 23:30 | PC.NURSE ---
Patient stating ongoing L arm pain. EKG performed, Dr Villela notified with EKG changes. Received orders for 1 inch Nitro paste q6hr , hold 60 mg imdur and 25mg losartan per Dr Villela order.
[2023-08-30] VITALS (15 sets, daily range): BP systolic 112–146; BP diastolic 55–83; PULSE 68–105; RESP 16–27; TEMP 36.6–37; O2SAT 87–95; BMI 37.3
[2023-08-30] MEDS: ondansetron 2 mg/ML SDV 2 mL 4 MG IVP (01:13)
[2023-08-30 05:01] LABS: Basophils % 0.1 %; Eosinophils # 0.1 10^3/uL (0.0-0.8); Eosinophils % 0.7 %; Hematocrit 39.2 % (36-47); Lymphocytes # 1.9 10^3/uL (0.8-4.8); Lymphocytes % 13.3 %; Mean Corpuscular HGB Conc 31.4 g/dL (30-55); Mean Corpuscular Hemoglobin 27.8 pg (27-33); Mean Corpuscular Volume 88.7 fl (85-98); Mean Platelet Volume 11.1 fL (7.4-10.4); Monocytes # 1.4 10^3/uL (0.2-0.9); Monocytes % 9.4 %; Neutrophils # 10.87 10^3/uL (1.8-7.7); Nucleated Red Blood Cells % 0 %; Platelet Count 240 10^3/cmm (157-399); Red Blood Count 4.42 10^6/uL (3.85-5.65); White Blood Count 14.32 10^3/uL (3.29-11.43)
[2023-08-30] MEDS: nitroglycerin 1 gm/inch oint Pkt 1 INCH TOPICAL ×4 (05:15→15:38)
[2023-08-30] MEDS: sodium chloride 0.9% 1,000 ML 75 ML IV (05:15)
[2023-08-30 05:30] LABS: Alanine Aminotransferase 16 U/L (0-33); Albumin Level 3.4 g/dL (3.5-5.2); Alkaline Phosphatase 112 U/L (35-105); Anion Gap 12.3 (5-19); Aspartate Amino Transferase 52 U/L (0-32); Blood Urea Nitrogen 23 mg/dL (8-23); Calcium 8.5 mg/dL (8.5-10.5); Carbon Dioxide 25 mmol/L (22-29); Chloride 107 mmol/L (98-107); Glucose 148 mg/dL (65-115); Osmolality Calculated 296 mOsm/kg (285-295); Potassium 4.3 mmol/L (3.5-5.1); Sodium 140 mmol/L (136-145); Total Bilirubin 0.2 mg/dL (0.15-1.2); Total Protein 6.4 g/dL (6.6-8.7)
[2023-08-30 05:37] LABS: Partial Thromboplastin Time 164.9 SECONDS (23.9-36.7)
--- NOTE | 2023-08-30 05:43 | PC.NURSE ---
PTT was 164.9 Dr lopez notified. Heparin gtt turned off and ptt ordered for 0700
--- NOTE | 2023-08-30 06:14 | P.PN_ITS ---
Subjective 2 Subjective: Patient has been having chest pain this morning. Vitals/I&O/Wt Last Vital Signs Temp 98.2 F 08/30/23 05:43 Pulse 70 08/30/23 05:43 Resp 16 08/30/23 05:43 BP 128/80 08/30/23 05:43 Pulse Ox 90 08/30/23 05:43 O2 Del Method Nasal Cannula 08/29/23 20:20 O2 Flow Rate 2 08/29/23 20:20 08/29/23 08/29/23 08/30/23 14:59 22:59 06:59 Intake Total 360.65 / 360.65 530 / 890.65 500 / 1390.65 Output Total 100 / 100 Balance 260.65 / 260.65 530 / 790.65 500 / 1290.65 Weight last 48 hrs Weight 191 lb 4 oz Weight 191 lb 4 oz Weight 165 lb Weight 165 lb Physical Exam 2 Narrative: GENERAL: Patient is alert, awake and oriented x3. [] NECK: No jugular vein distension. [] HEENT: No cyanosis. No icterus. No pallor. [] HEART: Regular S1 and S2. No murmur, rub or gallop. [] LUNGS: Clear to auscultate bilaterally. [] CENTRAL NERVOUS SYSTEM: Grossly nonfocal. [] EXTREMITIES: Lower extremities with 1+ edema bilaterally. Data 08/30/23 04:47 08/30/23 04:47 A&P Assessment and plan (1) Non-ST elevation [place] (NSTEMI): (2) Dyslipidemia: (3) CAD (coronary artery disease): (4) Essential (primary) hypertension: (5) Hx of CABG: Plan Yesterday she had coronary angiogram performed that showed patent [place] to LAD. Her SVG grafts to left circumflex artery and RCA were occluded. [place] left circumflex artery was totally occluded. Prior to subtotal occlusion there is 90-95% heavily calcified small caliber tortuous vessel. We were able to cross the subtotal occlusion with coronary wire. With a lot of difficulty, we were able to place small balloon and do balloon angioplasty. This improved flow significantly however larger 2.5 mm diameter balloon could not be advanced. Without coronary arthrectomy technically not possible to proceed with stent placement. We decided to medically treat her. Detailed discussion with patient and family. All options were discussed including high risk coronary intervention with arthrectomy versus medical therapy versus transfer to tertiary care hospital for further management. Patient and family have decided to proceed with medical therapy at this time. Patient also has anxiety which makes her symptoms worse. If they change their mind about having procedure performed, will discuss with them. Will continue with dual antiplatelet therapy including aspirin and Plavix. Continue anticoagulation with heparin. Patient started on Ranexa, Imdur and beta-sabrina. High intensity statin therapy. Thank you for involving us with care of this patient. We will continue to follow. Please call with questions. Attestations 2 Medical Necessity Statement*: Care expected to cross 2 midnights. Coding Level of Care Code Acute Code for [facility] Fwd Diagnoses Non-ST elevation [place] (NSTEMI) I21.4 Dyslipidemia E78.5 CAD (coronary artery disease) I25.10 Essential (primary) hypertension I10 Hx of CABG Z95.1
[2023-08-30 06:22] LABS: Glucose Point of Care 119 mg/dL (70-110)
[2023-08-30 07:45] LABS: Partial Thromboplastin Time 61.4 SECONDS (23.9-36.7)
[2023-08-30] MEDS: ranolazine (12HR) 500 mg Tablet PO ×2 (09:09→17:15)
[2023-08-30] MEDS: aspirin 81 mg EC Tablet PO (09:09)
--- NOTE | 2023-08-30 10:00 | XR_ITS ---
WS: [id number] Exam: XR chest 1V portable [id number] Date/Time of Exam: 08/30/2023 10:02 AM Reason For Exam: sob Comparison 08/28/2023. There is infiltrate and atelectasis in the RIGHT lower lobe. The heart is enlarged. There is increase d pulmonary vascularity. No pleural effusions or pneumothorax. Numerous old left-sided rib fractures. The mediastinum is normal in contour. Signs of previous CABG surgery. IMPRESSION1. Infiltrate and atelectasis in the RIGHT lower lobe that likely represents pneumonia. 2. Cardiac enlargement with increased pulmonary vascularity.
[2023-08-30] MEDS: ipratropium-albuterol 3 mL Neb INHALATION (10:11)
[2023-08-30] MEDS: FUROsemide 10 mg/mL SDV 4mL 40 MG IVP ×2 (10:13→17:15)
[2023-08-30 10:45] LABS: Iron 58 ug/dL (37-145); Percent Saturation 27.7 % (20-50); Total Iron Binding Capacity 209 mcg/dl; Unsaturated Iron Binding 151 ug/dL (112-347); Vitamin B12 383 pg/mL (232-1245)
--- NOTE | 2023-08-30 11:36 | PC.NURSE ---
pt got up out of bed and walked around in room at approx 1015.became sob.c/o pain in left upper arm.slightly diaphoretic.bp stable.ivf's dc'd.dr price and rt notified.o2 applied at 5 l via simple mask.stat pcxr obtained.gurrola catheter inserted.40 mg lasix given ivp as ordered.2nd dose ntg paste applied as ordered.w/i 1 hour..pain and sob subsided.
[2023-08-30 12:13] LABS: Glucose Point of Care 233 mg/dL (70-110)
[2023-08-30] MEDS: insulin lispro 100 unit/1 mL SUBCUT ×2 (12:35→20:50)
[2023-08-30 12:57] LABS: Troponin T (5th) Once 652 ng/L (0-10)
[2023-08-30 15:02] LABS: Partial Thromboplastin Time 109.9 SECONDS (23.9-36.7)
--- NOTE | 2023-08-30 16:37 | PC.NURSE ---
no further episodes of left arm pain or sob.diuresing well with lasix
[2023-08-30 17:14] LABS: Glucose Point of Care 89 mg/dL (70-110)
--- NOTE | 2023-08-30 17:24 | P.PN_ITS ---
Subjective 2 Subjective: Hospital course, labs appreciated. Appreciate overnight event. Currently on heparin drip. Seen with family at bedside. Seen multiple times during the day. Patient is on nasal mask saturating 92%. Patient is complaining of difficulty in breathing and chest heaviness. Currently on heparin drip. Blood pressure is mildly elevated. Tachycardic. Medications: Reviewed: Yes Vitals/I&O/Wt Last Vital Signs Temp 97.9 F 08/30/23 16:00 Pulse 72 08/30/23 16:00 Resp 27 H 08/30/23 16:00 BP 123/68 08/30/23 16:00 Pulse Ox 93 08/30/23 16:00 O2 Del Method Nasal Cannula 08/30/23 16:00 O2 Flow Rate 6 08/30/23 10:09 08/30/23 08/30/23 08/30/23 06:59 14:59 22:59 Intake Total 500 / 1390.65 600 / 600 402.4 / 1002.4 Output Total 1200 / 1200 Balance 500 / 1290.65 600 / 600 -797.6 / -197.6 Weight last 48 hrs Weight 86.75 kg Weight 86.75 kg Weight 86.75 kg Weight 74.843 kg Physical Exam 2 Narrative: General: In acute distress because of difficulty in breathing, chest heaviness, AO x 3 HEENT: Normocephalic, Atraumatic. External ears normal. Nasal passages patent without drainage. MMM. Heart: S1-S2 regular, mildly tachycardic, no added sounds Resp: Normal Cerrobend sounds all over lung matta with rhonchi expiratory all over lung matta, fine crackles up to mid chest Abd: Soft, non-tender. Non-distended. Extremities: No edema. Skin: No rash or lesions on exposed areas. Neuro: No focal motor or sensory loss. Urinary Catheter Management: Huff: Cath Placed During This Visit: yes Urinary Catheter Date of Insertion: 08/30/23 Urinary Catheter Time of Insertion: 10:30 Data 08/30/23 04:47 08/30/23 04:47 Micro: Microbiology 08/28/23 16:34 Urine Culture - Preliminary Urine,Clean Catch Gram Negative Rods A&P Assessment and plan (1) Non-ST elevation OR (NSTEMI): Appreciate cardiology recommendations. Post cardiac angiogram. Found to have occluded SVG to LCx and RCA not amenable for PCI. Patient is a high risk for atherectomy. Discussed in detail with patient and family at bedside about medical treatment versus high risk atherectomy. Patient for now would want to continue with medical management for as long as possible and if not tolerable then will think about high risk atherectomy. She does not want to be transferred to the hospital. Recheck troponin levels. Continue with heparin drip. Switch to Nitropaste as per cardiology team. Add 1 inch extra. Monitor blood pressures. Continue with Ranexa 500 mg twice daily. Continue with aspirin, Plavix, statin. Add metoprolol 25 mg twice daily. Appreciate A1c, lipid panel. Appreciate echocardiogram. (2) Hypoxic respiratory failure: Target saturation over 90%. Oxygen supplementation accordingly. Most likely in setting of congestive heart failure. Check chest x-ray. Stop IV fluids. IV Lasix 40 mg stat. Huff catheterization. Head of the bed elevated. Strict input output charting, daily weights. Fluid restriction up to 1500 cc. Will repeat Lasix as per oxygen saturation and fluid response. (3) Fluid overload: (4) Unstable angina: (5) Essential (primary) hypertension: Goal blood pressure less than 140/90 mmHg. Metoprolol as above. Will uptitrate or restart losartan as per blood pressures. (6) Type 2 diabetes mellitus without complications: Continue with home dose of long-acting insulin 30 units. Insulin sliding scale ACHS. Carb consistent diet. (7) UTI (urinary tract infection): Follow-up blood culture, urine culture. Leukocytosis most likely in setting of non-ST elevation OR. Has remained afebrile. Continue with IV ceftriaxone. Switch antibiotics as per culture sensitivities. (8) Dyslipidemia: Plan Code Status: Discussed in detail with the patient. She would like to remain full code. Daughter at bedside will be the DPOA. DVT PPx: Heparin drip will be sufficient for DVT prophylaxis. GI PPx: Famotidine Diet: Cardiac CC Discharge plan: Will plan for PT evaluation once patient is more stable. Most likely home with home health. Case management on board. Attestations 2 Medical Necessity Statement*: Requires further hospitalization for management of unstable angina in setting of non-ST elevation OR and not amenable to revascularization in a patient with history of CABG, UTI, fluid overload leading to hypoxic respiratory failure Diagnoses Non-ST elevation OR (NSTEMI) I21.4 Hypoxic respiratory failure J96.91 Fluid overload E87.70 Unstable angina I20.0 Essential (primary) hypertension I10 Type 2 diabetes mellitus without complications E11.9 UTI (urinary tract infection) N39.0 Dyslipidemia E78.5
[2023-08-30 19:56] LABS: Glucose Point of Care 253 mg/dL (70-110)
[2023-08-30] MEDS: atorvastatin 40 mg Tablet PO (20:48)
[2023-08-30] MEDS: clopidogrel 75 mg Tablet PO (20:48)
[2023-08-30] MEDS: gabapentin 300 mg Capsule 600 MG PO (20:48)
[2023-08-30] MEDS: nitroglycerin 1 gm/inch oint Pkt 1.5 INCH TOPICAL (20:49)
[2023-08-30] MEDS: cefTRIAXone 1,000 MG in sodium chloride 0.9% (plus) 50 ML 100 MG IV (20:50)
[2023-08-30] MEDS: heparin drip 25,000 UNIT/500 ML PREMIX 19 UNIT IV (20:59)
[2023-08-30 21:30] LABS: Partial Thromboplastin Time 86.5 SECONDS (23.9-36.7)
[2023-08-30] MEDS: metoprolol tartrate 25 mg Tablet PO (21:31)
[2023-08-31] VITALS (11 sets, daily range): BP systolic 92–124; BP diastolic 52–94; PULSE 57–89; RESP 15–20; TEMP 36.7–37.3; O2SAT 94–97; BMI 38.2
[2023-08-31 03:58] LABS: Basophils % 0.2 %; Eosinophils # 0.3 10^3/uL (0.0-0.8); Eosinophils % 2.2 %; Lymphocytes # 1.8 10^3/uL (0.8-4.8); Mean Corpuscular HGB Conc 32.1 g/dL (30-55); Mean Corpuscular Hemoglobin 28.4 pg (27-33); Mean Corpuscular Volume 88.4 fl (85-98); Monocytes # 1.4 10^3/uL (0.2-0.9); Neutrophils # 9.17 10^3/uL (1.8-7.7); Neutrophils % 72.4 %; Nucleated Red Blood Cells % 0 %; Platelet Count 214 10^3/cmm (157-399); White Blood Count 12.67 10^3/uL (3.29-11.43)
[2023-08-31 04:12] LABS: Partial Thromboplastin Time 67.9 SECONDS (23.9-36.7)
[2023-08-31 04:15] LABS: Magnesium 1.7 mg/dL (1.7-2.3)
[2023-08-31 04:16] LABS: Alanine Aminotransferase 25 U/L (0-33); Albumin Level 3.3 g/dL (3.5-5.2); Alkaline Phosphatase 108 U/L (35-105); Anion Gap 12.4 (5-19); Aspartate Amino Transferase 83 U/L (0-32); Blood Urea Nitrogen 32 mg/dL (8-23); Calcium 8.5 mg/dL (8.5-10.5); Carbon Dioxide 29 mmol/L (22-29); Chloride 105 mmol/L (98-107); Creatinine Clr Calc Pharmacy 30.8462; Globulin 3.1 g/dL (1.3-4.6); Glucose 217 mg/dL (65-115); Osmolality Calculated 307 mOsm/kg (285-295); Potassium 4.4 mmol/L (3.5-5.1); Sodium 142 mmol/L (136-145); Total Bilirubin 0.2 mg/dL (0.15-1.2); Total Protein 6.4 g/dL (6.6-8.7)
--- NOTE | 2023-08-31 05:57 | P.PN_ITS ---
Subjective 2 Subjective: Patient doing well. Denies complaints of chest pain. Creatinine trended up today. Vitals/I&O/Wt Last Vital Signs Temp 98.0 F 08/31/23 04:00 Pulse 66 08/31/23 05:15 Resp 19 H 08/31/23 04:00 BP 107/67 08/31/23 04:00 Pulse Ox 95 08/31/23 04:00 O2 Del Method Nasal Cannula 08/31/23 04:00 O2 Flow Rate 6 08/30/23 10:09 08/30/23 08/30/23 08/31/23 14:59 22:59 06:59 Intake Total 600 / 600 1046.783 / 1646.783 300 / 1946.783 Output Total 1850 / 1850 975 / 2825 Balance 600 / 600 -803.217 / -203.217 -675 / -878.217 Weight last 48 hrs Weight 196 lb 1 oz Weight 200 lb Weight 191 lb 4 oz Weight 191 lb 4 oz Physical Exam 2 Narrative: GENERAL: Patient is alert, awake and oriented x3. [] NECK: No jugular vein distension. [] HEENT: No cyanosis. No icterus. No pallor. [] HEART: Regular S1 and S2. No murmur, rub or gallop. [] LUNGS: Clear to auscultate bilaterally. [] CENTRAL NERVOUS SYSTEM: Grossly nonfocal. [] EXTREMITIES: Lower extremities with 1+ edema bilaterally. Urinary Catheter Management: Huff: Cath Placed During This Visit: yes Reason for Continuing Indwelling Catheter: Accurate Measurement of Urinary Output in Critically Ill Patients Urinary Catheter Date of Insertion: 08/30/23 Urinary Catheter Time of Insertion: 10:30 Data 08/31/23 03:48 08/31/23 03:48 Micro: Microbiology 08/28/23 16:34 Urine Culture - Preliminary Urine,Clean Catch Gram Negative Rods A&P Assessment and plan (1) Non-ST elevation [place] (NSTEMI): (2) Dyslipidemia: (3) CAD (coronary artery disease): (4) Essential (primary) hypertension: (5) Hx of CABG: Plan Patient had coronary angiogram performed that showed patent [place] to LAD. Her SVG grafts to left circumflex artery and RCA were occluded. [place] left circumflex artery was subtotally occluded. Prior to subtotal occlusion there is 90-95% heavily calcified small caliber tortuous vessel. We were able to cross the subtotal occlusion with coronary wire. With a lot of difficulty, we were able to place small balloon and do balloon angioplasty. This improved flow significantly however larger 2.5 mm diameter balloon could not be advanced. Without coronary arthrectomy technically not possible to proceed with stent placement. We decided to medically treat her. Detailed discussion with patient and family. All options were discussed including high risk coronary intervention with arthrectomy versus medical therapy versus transfer to tertiary care hospital for further management. Patient and family have decided to proceed with medical therapy at this time. Patient had diuresis yesterday. She is feeling better. However creatinine has trended up. Monitor. Will continue with dual antiplatelet therapy including aspirin and Plavix. Can discontinue anticoagulation Patient started on Ranexa, Imdur and beta-sabrina. High intensity statin therapy. Thank you for involving us with care of this patient. From cardiac standpoint, patient can be discharged. Please call with questions. Attestations 2 Medical Necessity Statement*: Care expected to cross 2 midnights. Coding Level of Care Code Acute Code for [facility] Fwd Diagnoses Non-ST elevation HI (NSTEMI) I21.4 Dyslipidemia E78.5 CAD (coronary artery disease) I25.10 Essential (primary) hypertension I10 Hx of CABG Z95.1
[2023-08-31 06:21] LABS: Glucose Point of Care 155 mg/dL (70-110)
[2023-08-31] MEDS: ranolazine (12HR) 500 mg Tablet PO ×2 (08:46→17:25)
[2023-08-31] MEDS: aspirin 81 mg EC Tablet PO (08:46)
[2023-08-31] MEDS: metoprolol tartrate 25 mg Tablet PO ×2 (08:47→20:49)
[2023-08-31 11:09] LABS: Glucose Point of Care 197 mg/dL (70-110)
[2023-08-31 11:31] LABS: Partial Thromboplastin Time 58.4 SECONDS (23.9-36.7)
--- NOTE | 2023-08-31 12:01 | ECG_ITS ---
[facility] Test Date: 2023-08-31 Pat Name: Sally Henderson Department: Room: 111 Gender: Female Leg Breaker: : 1940 Requested By: Christiano Richard Order Number: [id number] Leonora MD: Boaz Jaarmillo M.D. Measurements Intervals [place] Rate: 59 P: 30 DC: 153 QRS: -37 QRSD: 83 T: 173 QT: 430 QTc: 429 Interpretive Statements SINUS BRADYCARDIA LEFT AXIS DEVIATION [QRS AXIS < -30] PATTERN CONSISTENT WITH PULMONARY DISEASE POSSIBLE RIGHT VENTRICULAR CONDUCTION DELAY [RSR (QR) IN V1/V2] ST DEVIATION AND MODERATE T-WAVE ABNORMALITY, CONSIDER LATERAL ISCHEMIA [-0.1+ mV T-WAVE IN I/aVL/V5/V6] Compared to ECG 08/29/2023 20:28:07 Left-axis deviation now present Sinus rhythm no longer present Sinus arrhythmia no longer present Left anterior fascicular block no longer present T-wave abnormality still present Possible ischemia still present Electronically Signed On 08-31-2023 14:20:51 CDT by Boaz Jaramillo M.D. [email or web address]
--- NOTE | 2023-08-31 14:53 | P.PN_ITS ---
Subjective 2 Subjective: No complaints overnight. On the morning seen sitting up in bed. States feeling a lot better. Denies any nausea vomiting, chest pressure, chest pain or difficulty breathing anymore. Currently on 2 L of oxygen supplementation saturating more than 92%. Blood pressure on the softer side with systolic of 92. Patient is awake and alert and able to have conversation. Medications: Reviewed: Yes Vitals/I&O/Wt Last Vital Signs Temp 98.3 F 08/31/23 11:27 Pulse 57 L 08/31/23 11:27 Resp 16 08/31/23 11:27 BP 92/55 08/31/23 11:27 Pulse Ox 95 08/31/23 11:27 O2 Del Method Nasal Cannula 08/31/23 11:27 O2 Flow Rate 2 08/31/23 11:27 08/30/23 08/31/23 08/31/23 22:59 06:59 14:59 Intake Total 1046.783 / 1646.783 300 / 1946.783 242.4 / 242.4 Output Total 1850 / 1850 975 / 2825 450 / 450 Balance -803.217 / -203.217 -675 / -878.217 -207.6 / -207.6 Weight last 48 hrs Weight 88.932 kg Weight 90.718 kg Weight 86.75 kg Physical Exam 2 Narrative: General: In acute distress because of difficulty in breathing, chest heaviness, AO x 3 HEENT: Normocephalic, Atraumatic. External ears normal. Nasal passages patent without drainage. MMM. Heart: S1-S2 regular, mildly tachycardic, no added sounds Resp: Normal Cerrobend sounds all over lung matta with rhonchi expiratory all over lung matta, fine crackles up to mid chest Abd: Soft, non-tender. Non-distended. Extremities: No edema. Skin: No rash or lesions on exposed areas. Neuro: No focal motor or sensory loss. Urinary Catheter Management: Huff: Cath Placed During This Visit: yes Reason for Continuing Indwelling Catheter: Accurate Measurement of Urinary Output in Critically Ill Patients Urinary Catheter Date of Insertion: 08/30/23 Urinary Catheter Time of Insertion: 10:30 Data 08/31/23 03:48 08/31/23 03:48 Micro: Microbiology 08/28/23 16:34 Urine Culture - Preliminary Urine,Clean Catch Gram Negative Rods Gram Negative Rods#2 A&P Assessment and plan (1) Non-ST elevation ID (NSTEMI): Appreciate cardiology recommendations. Post cardiac angiogram. Found to have occluded SVG to LCx and RCA not amenable for PCI. Patient is a high risk for atherectomy. Discussed in detail with patient and family at bedside about medical treatment versus high risk atherectomy. Patient for now would want to continue with medical management for as long as possible and if not tolerable then will think about high risk atherectomy. She does not want to be transferred to the hospital. Continue with heparin drip to finish a 72-hour course. Blood pressure soft so will hold off on nitro for now. Continue with Ranexa 500 mg twice daily. Continue with aspirin, Plavix, statin, metoprolol 25 mg twice daily. Monitor for bradycardia. Check EKG. Appreciate A1c, lipid panel. Appreciate echocardiogram. (2) Hypoxic respiratory failure: Improving. Most likely in setting of fluid overload from heart failure. Currently euvolemic. Oxygen supplementation keeping saturation over 92%. Hold off on Lasix for now. Continue Huff catheterization. IV Lasix 40 mg stat. Huff catheterization. Head of the bed elevated. Strict input output charting, daily weights. Fluid restriction up to 1500 cc. Will repeat Lasix as per oxygen saturation and fluid response. (3) Fluid overload: (4) Unstable angina: (5) Essential (primary) hypertension: Goal blood pressure less than 140/90 mmHg. Metoprolol as above. Blood pressure soft for now. Keep mean artery pressure 65. Hold off on further antihypertensive. Remove Nitropatch. (6) Type 2 diabetes mellitus without complications: Continue with home dose of long-acting insulin 30 units. Insulin sliding scale ACHS. Carb consistent diet. (7) UTI (urinary tract infection): Follow-up blood culture, urine culture. Leukocytosis most likely in setting of non-ST elevation ID. Has remained afebrile. Continue with IV ceftriaxone. Switch antibiotics as per culture sensitivities. (8) Dyslipidemia: Plan Code Status: Discussed in detail with the patient. She would like to remain full code. Daughter at bedside will be the DPOA. DVT PPx: Heparin drip will be sufficient for DVT prophylaxis. GI PPx: Famotidine Diet: Cardiac CC Discharge plan: Physical therapy evaluation. Most likely home with home health. Case management on board. Attestations 2 Medical Necessity Statement*: Requires further admission for management of non-ST elevation ID with unstable angina in a patient with history of CABG, hypoxia in setting of diastolic heart failure while safe discharge planning is sought. Diagnoses Non-ST elevation ID (NSTEMI) I21.4 Hypoxic respiratory failure J96.91 Fluid overload E87.70 Unstable angina I20.0 Essential (primary) hypertension I10 Type 2 diabetes mellitus without complications E11.9 UTI (urinary tract infection) N39.0 Dyslipidemia E78.5
[2023-08-31 17:21] LABS: Glucose Point of Care 163 mg/dL (70-110)
[2023-08-31 17:59] LABS: Partial Thromboplastin Time 49.7 SECONDS (23.9-36.7)
--- NOTE | 2023-08-31 19:35 | PC.NURSE ---
Patient administered her own home medication of tresiba 30units. The nurse took the patients home medication and had it labeled in pharmacy and put in the medication room fridge and told patient that further administration would require the nurse to bring in medication to the patient so that we can scan and document the medication administration. The patient was agreeable.
[2023-08-31] MEDS: cefTRIAXone 1,000 MG in sodium chloride 0.9% (plus) 50 ML 100 MG IV (20:05)
[2023-08-31] MEDS: atorvastatin 40 mg Tablet PO (20:49)
[2023-08-31] MEDS: gabapentin 300 mg Capsule 600 MG PO (20:49)
[2023-08-31] MEDS: clopidogrel 75 mg Tablet PO (20:49)
[2023-08-31] MEDS: insulin lispro 100 unit/1 mL SUBCUT (20:56)
[2023-08-31 21:00] LABS: Glucose Point of Care 309 mg/dL (70-110)
[2023-08-31 23:44] LABS: Partial Thromboplastin Time 53.7 SECONDS (23.9-36.7)
[2023-08-31] MEDS: heparin 5,000 unit/mL INJ 1 mL IV (23:55)
[2023-08-31] MEDS: heparin drip 25,000 UNIT/500 ML PREMIX 19 UNIT IV (23:57)
[2023-09-01] VITALS (11 sets, daily range): BP systolic 94–122; BP diastolic 52–81; PULSE 61–82; RESP 14–23; TEMP 36.3–37.1; O2SAT 89–95
[2023-09-01] MEDS: oxyCODONE-APAP 5-325 mg Tablet 1 TAB PO ×2 (02:52→15:10)
--- NOTE | 2023-09-01 03:03 | PC.NURSE ---
Patient having complaints of gurrola catheter bothering her and causing discomfort requesting that it be removed. Patient states that she will be able to move around so much easier if she didnt have the gurrola. The order does include that gurrola can be removed with nurse driven protocol so gurrola catheter was removed at this time. The patient requested a brief and nurse told patient to let us know if she has to go to the bathroom so a hat can be placed in the toilet for urine measurement.
[2023-09-01 06:21] LABS: Glucose Point of Care 104 mg/dL (70-110)
[2023-09-01 06:34] LABS: Basophils % 0.1 %; Eosinophils # 0.4 10^3/uL (0.0-0.8); Eosinophils % 2.8 %; Hematocrit 35.9 % (36-47); Lymphocytes # 1.8 10^3/uL (0.8-4.8); Lymphocytes % 13.2 %; Mean Corpuscular HGB Conc 31.5 g/dL (30-55); Mean Corpuscular Hemoglobin 27.8 pg (27-33); Mean Corpuscular Volume 88.2 fl (85-98); Mean Platelet Volume 11.6 fL (7.4-10.4); Monocytes # 1.3 10^3/uL (0.2-0.9); Monocytes % 9.6 %; Neutrophils # 10.17 10^3/uL (1.8-7.7); Neutrophils % 73.9 %; Nucleated Red Blood Cells % 0 %; Platelet Count 187 10^3/cmm (157-399); Red Blood Count 4.07 10^6/uL (3.85-5.65); Red Cell Distribution Width 12.8 % (12.1-15.1); White Blood Count 13.76 10^3/uL (3.29-11.43)
[2023-09-01 06:50] LABS: Partial Thromboplastin Time 66.7 SECONDS (23.9-36.7)
[2023-09-01 06:55] LABS: Alanine Aminotransferase 21 U/L (0-33); Albumin Level 3.2 g/dL (3.5-5.2); Alkaline Phosphatase 96 U/L (35-105); Anion Gap 11.7 (5-19); Aspartate Amino Transferase 45 U/L (0-32); Blood Urea Nitrogen 32 mg/dL (8-23); Calcium 8.5 mg/dL (8.5-10.5); Carbon Dioxide 28 mmol/L (22-29); Chloride 107 mmol/L (98-107); Creatinine Clr Calc Pharmacy 40.2294; Globulin 3.1 g/dL (1.3-4.6); Glucose 109 mg/dL (65-115); Osmolality Calculated 301 mOsm/kg (285-295); Potassium 4.7 mmol/L (3.5-5.1); Sodium 142 mmol/L (136-145); Total Bilirubin 0.4 mg/dL (0.15-1.2); Total Protein 6.3 g/dL (6.6-8.7)
[2023-09-01 06:59] LABS: Magnesium 1.8 mg/dL (1.7-2.3)
--- NOTE | 2023-09-01 07:39 | P.PN_ITS ---
Subjective 2 Subjective: Sally is improved. She is no longer having arm pain or back pain. She is still on intravenous heparin. Due to all of the information documented by myself and Dr. Jaramillo the decision has been made to treat her medically. She is up and around to the bathroom. Her son lives with her. She had a mild increase in her creatinine and BUN following the angiogram. Vitals/I&O/Wt Last Vital Signs Temp 98.7 F 09/01/23 04:00 Pulse 64 09/01/23 05:15 Resp 18 09/01/23 04:00 BP 101/52 09/01/23 04:00 Pulse Ox 92 09/01/23 04:00 O2 Del Method Nasal Cannula 09/01/23 04:00 O2 Flow Rate 2 09/01/23 04:00 08/31/23 09/01/23 09/01/23 22:59 06:59 14:59 Intake Total 378.267 / 620.667 572.150 / 1192.817 Output Total 475 / 925 Balance 378.267 / 170.667 97.150 / 267.817 Weight last 48 hrs Weight 199 lb 11.2 oz Weight 196 lb 1 oz Weight 200 lb Physical Exam 2 Narrative: GENERAL: In general she looks well today and is comfortable HEENT: Exam within normal limits. NECK: Supple without jugular vein distention. The carotid upstroke is normal without bruits. BACK: Exam normal. LUNGS: Clear. HEART: Regular rate and rhythm. ABDOMEN: Benign without organomegaly or tenderness. EXTREMITIES: No edema. Cardiac catheterization entry site flat and dry without bleeding, hematoma or other vascular anomaly. NEUROLOGIC: Exam normal. SKIN: Unremarkable. Urinary Catheter Management: Huff: Cath Placed During This Visit: yes Reason for Continuing Indwelling Catheter: Accurate Measurement of Urinary Output in Critically Ill Patients Urinary Catheter Date of Insertion: 08/30/23 Urinary Catheter Time of Insertion: 10:30 Data 09/01/23 06:13 09/01/23 06:13 Micro: Microbiology 08/28/23 16:34 Urine Culture - Preliminary Urine,Clean Catch Gram Negative Rods Gram Negative Rods#2 A&P Assessment and plan (1) Hx of CABG: (2) Essential (primary) hypertension: (3) Acute WA: (4) CAD (coronary artery disease): (5) Dyslipidemia: (6) Non-ST elevation [place] (NSTEMI): (7) Unstable angina: (8) Type 2 diabetes mellitus without complications: (9) Contrast-induced nephropathy: Plan She is improved. Plan is to continue to treat her medically. I will stop the heparin today. I would get her up and around, finalize her medication list and plan for discharge tomorrow if she is well. Attestations 2 Medical Necessity Statement*: Hospital stay for coronary artery disease post intervention and mild renal insufficiency. and Moderate Time for a total of 30 minutes, includes reviewing past or interval history, examining/interviewing patient, placing orders, counseling patient/family/other support, updating patient/family/other support, discussing plan of care with staff and documenting encounter Diagnoses Hx of CABG Z95.1 Essential (primary) hypertension I10 Acute WA I21.9 CAD (coronary artery disease) I25.10 Dyslipidemia E78.5 Non-ST elevation [place] (NSTEMI) I21.4 Unstable angina I20.0 Type 2 diabetes mellitus without complications E11.9 Contrast-induced nephropathy N14.11; T50.8X5A
[2023-09-01] MEDS: aspirin 81 mg EC Tablet PO (09:10)
[2023-09-01] MEDS: ranolazine (12HR) 500 mg Tablet PO ×2 (09:10→18:06)
[2023-09-01] MEDS: metoprolol tartrate 25 mg Tablet PO ×2 (09:11→20:35)
--- NOTE | 2023-09-01 09:13 | PC.SOCIAL ---
IMM Update Pg. 2 of IMM updated and reviewed with patient. Copy provided.
[2023-09-01 11:01] LABS: Glucose Point of Care 191 mg/dL (70-110)
[2023-09-01] MEDS: FUROsemide 40 mg Tablet PO (13:05)
[2023-09-01] MEDS: insulin lispro 100 unit/1 mL SUBCUT ×3 (13:05→20:37)
[2023-09-01 13:23] LABS: Partial Thromboplastin Time 29.4 SECONDS (23.9-36.7)
--- NOTE | 2023-09-01 14:32 | P.PN_ITS ---
Subjective 2 Subjective: No acute events overnight. Patient has remained hemodynamically stable and afebrile. Denies any nausea vomiting, headache or chest pain. Today morning on examination patient was sleeping with no oxygen and saturation found to be in mid to high 80s after which she was placed on 1 L of oxygen supplementation to maintain saturation over 90. Medications: Reviewed: Yes Vitals/I&O/Wt Last Vital Signs Temp 98.2 F 09/01/23 12:00 Pulse 62 09/01/23 12:00 Resp 14 09/01/23 12:00 BP 94/56 09/01/23 12:00 Pulse Ox 94 09/01/23 10:00 O2 Del Method Nasal Cannula 09/01/23 10:00 O2 Flow Rate 1 09/01/23 10:00 08/31/23 09/01/23 09/01/23 22:59 06:59 14:59 Intake Total 378.267 / 620.667 572.150 / 1192.817 421.45 / 421.45 Output Total 475 / 925 Balance 378.267 / 170.667 97.150 / 267.817 421.45 / 421.45 Weight last 48 hrs Weight 90.582 kg Weight 88.932 kg Weight 90.718 kg Physical Exam 2 Narrative: General: In acute distress because of difficulty in breathing, chest heaviness, AO x 3 HEENT: Normocephalic, Atraumatic. External ears normal. Nasal passages patent without drainage. MMM. Heart: S1-S2 regular, mildly tachycardic, no added sounds Resp: Normal Cerrobend sounds all over lung matta with rhonchi expiratory all over lung matta, fine crackles up to mid chest Abd: Soft, non-tender. Non-distended. Extremities: No edema. Skin: No rash or lesions on exposed areas. Neuro: No focal motor or sensory loss. Urinary Catheter Management: Huff: Cath Placed During This Visit: yes Reason for Continuing Indwelling Catheter: Accurate Measurement of Urinary Output in Critically Ill Patients Urinary Catheter Date of Insertion: 08/30/23 Urinary Catheter Time of Insertion: 10:30 Data 09/01/23 06:13 09/01/23 06:13 Micro: Microbiology 08/28/23 16:34 Urine Culture - Final Urine,Clean Catch Klebsiella oxytoca Klebsiella pneumoniae A&P Assessment and plan (1) Non-ST elevation MA (NSTEMI): Appreciate cardiology recommendations. Post cardiac angiogram. Found to have occluded SVG to LCx and RCA not amenable for PCI. Patient is a high risk for atherectomy. Discussed in detail with patient and family at bedside about medical treatment versus high risk atherectomy. Patient for now would want to continue with medical management for as long as possible and if not tolerable then will think about high risk atherectomy. She does not want to be transferred to the hospital. Continue with heparin drip to finish a 72-hour course. Blood pressure soft so will hold off on nitro for now. Continue with Ranexa 500 mg twice daily. Continue with aspirin, Plavix, statin, metoprolol 25 mg twice daily. Monitor for bradycardia. Check EKG. Appreciate A1c, lipid panel. Appreciate echocardiogram. (2) Hypoxic respiratory failure: Improving. Most likely in setting of fluid overload from heart failure. Currently euvolemic. Oxygen supplementation keeping saturation over 92%. Hold off on Lasix for now. Continue Huff catheterization. IV Lasix 40 mg stat. Huff catheterization. Head of the bed elevated. Strict input output charting, daily weights. Fluid restriction up to 1500 cc. Will repeat Lasix as per oxygen saturation and fluid response. (3) Fluid overload: (4) Unstable angina: (5) Essential (primary) hypertension: Goal blood pressure less than 140/90 mmHg. Metoprolol as above. Blood pressure soft for now. Keep mean artery pressure 65. Hold off on further antihypertensive. Remove Nitropatch. (6) Type 2 diabetes mellitus without complications: Continue with home dose of long-acting insulin 30 units. Insulin sliding scale ACHS. Carb consistent diet. (7) UTI (urinary tract infection): Follow-up blood culture, urine culture. Leukocytosis most likely in setting of non-ST elevation MA. Has remained afebrile. Continue with IV ceftriaxone. Switch antibiotics as per culture sensitivities. (8) Dyslipidemia: Plan Plan for the day: Continue with aspirin, statin, Plavix, beta-sabrina. Heart rate well-controlled. Start on oral Lasix 40 mg daily. Strict input charting, daily weights. Oxygen supplementation keeping saturation 90%. Stop heparin drip. Appreciate cardiology recommendations. Plan for discharge in next 24 hours if patient remains hemodynamically stable and afebrile. Appreciate urine culture. Continue with ceftriaxone to finish a 5-day course. DC Huff catheter. Code Status: Discussed in detail with the patient. She would like to remain full code. Daughter at bedside will be the DPOA. DVT PPx: Heparin drip will be sufficient for DVT prophylaxis. GI PPx: Famotidine Diet: Cardiac CC Discharge plan: Patient will benefit from home health. Patient is agreeable. Attestations 2 Medical Necessity Statement*: Requires hospitalization for management of unstable angina in a patient was admitted for non-ST elevation MA post cardiac angiogram on medical management, congestive heart failure Diagnoses Non-ST elevation MA (NSTEMI) I21.4 Hypoxic respiratory failure J96.91 Fluid overload E87.70 Unstable angina I20.0 Essential (primary) hypertension I10 Type 2 diabetes mellitus without complications E11.9 UTI (urinary tract infection) N39.0 Dyslipidemia E78.5
[2023-09-01 16:43] LABS: Glucose Point of Care 231 mg/dL (70-110)
[2023-09-01] MEDS: NON-FORMULARY MEDICATION (Insulin Degludec [Tresiba Flextouch U-100] 100 unit/mL (3 mL) in 30 EACH SUBCUT (18:01)
[2023-09-01] MEDS: gabapentin 300 mg Capsule 600 MG PO (20:35)
[2023-09-01] MEDS: atorvastatin 40 mg Tablet PO (20:35)
[2023-09-01] MEDS: clopidogrel 75 mg Tablet PO (20:35)
[2023-09-01 20:40] LABS: Glucose Point of Care 265 mg/dL (70-110)
[2023-09-01] MEDS: cefTRIAXone 1,000 MG in sodium chloride 0.9% (plus) 50 ML 100 MG IV (20:41)
[2023-09-02] VITALS (9 sets, daily range): BP systolic 99–122; BP diastolic 54–73; PULSE 53–80; RESP 16–23; TEMP 36.7–37.3; O2SAT 88–95; BMI 39.9
[2023-09-02] MEDS: oxyCODONE-APAP 5-325 mg Tablet 1 TAB PO (03:33)
[2023-09-02 05:41] LABS: Basophils % 0.2 %; Eosinophils # 0.4 10^3/uL (0.0-0.8); Eosinophils % 2.9 %; Hematocrit 35.4 % (36-47); Lymphocytes # 1.4 10^3/uL (0.8-4.8); Mean Corpuscular HGB Conc 31.6 g/dL (30-55); Mean Corpuscular Hemoglobin 28.7 pg (27-33); Mean Corpuscular Volume 90.8 fl (85-98); Mean Platelet Volume 11.6 fL (7.4-10.4); Monocytes # 1.4 10^3/uL (0.2-0.9); Neutrophils # 9.24 10^3/uL (1.8-7.7); Neutrophils % 74.5 %; Nucleated Red Blood Cells % 0 %; Platelet Count 194 10^3/cmm (157-399); Red Cell Distribution Width 12.8 % (12.1-15.1)
[2023-09-02 06:01] LABS: Alanine Aminotransferase 17 U/L (0-33); Albumin Level 3.1 g/dL (3.5-5.2); Alkaline Phosphatase 85 U/L (35-105); Anion Gap 10.2 (5-19); Aspartate Amino Transferase 25 U/L (0-32); Blood Urea Nitrogen 30 mg/dL (8-23); Calcium 8.7 mg/dL (8.5-10.5); Carbon Dioxide 28 mmol/L (22-29); Chloride 105 mmol/L (98-107); Creatinine Clr Calc Pharmacy 37.3511; Globulin 3.4 g/dL (1.3-4.6); Glucose 90 mg/dL (65-115); Osmolality Calculated 294 mOsm/kg (285-295); Potassium 4.2 mmol/L (3.5-5.1); Sodium 139 mmol/L (136-145); Total Bilirubin 0.3 mg/dL (0.15-1.2); Total Protein 6.5 g/dL (6.6-8.7)
[2023-09-02 06:03] LABS: Magnesium 1.9 mg/dL (1.7-2.3)
[2023-09-02 06:39] LABS: Glucose Point of Care 97 mg/dL (70-110)
--- NOTE | 2023-09-02 08:09 | P.PN_ITS ---
Subjective 2 Subjective: Sally remains free of any arm pain or other pain suggestive of angina. She has been up and around a little bit. She seems to be tolerating the medications. Vitals/I&O/Wt Last Vital Signs Temp 98.1 F 09/02/23 07:34 Pulse 65 09/02/23 07:34 Resp 18 09/02/23 07:34 BP 99/58 09/02/23 07:34 Pulse Ox 92 09/02/23 07:34 O2 Del Method Nasal Cannula 09/02/23 07:34 O2 Flow Rate 1 09/02/23 07:26 09/01/23 09/02/23 09/02/23 22:59 06:59 14:59 Intake Total 586 / 1007.45 220 / 1227.45 Balance 586 / 1007.45 220 / 1227.45 Weight last 48 hrs Weight 204 lb 3.2 oz Weight 199 lb 11.2 oz Physical Exam 2 Narrative: GENERAL: In general she looks and feels well HEENT: Exam within normal limits. NECK: Supple without jugular vein distention. The carotid upstroke is normal without bruits. BACK: Exam normal. LUNGS: Clear. HEART: Regular rate and rhythm. ABDOMEN: Benign without organomegaly or tenderness. EXTREMITIES: No edema. NEUROLOGIC: Exam normal. SKIN: Unremarkable. Urinary Catheter Management: Huff: Cath Placed During This Visit: yes Reason for Continuing Indwelling Catheter: Accurate Measurement of Urinary Output in Critically Ill Patients Urinary Catheter Date of Insertion: 08/30/23 Urinary Catheter Time of Insertion: 10:30 Data 09/02/23 05:30 09/02/23 05:30 Micro: Microbiology 08/28/23 16:34 Urine Culture - Final Urine,Clean Catch Klebsiella oxytoca Klebsiella pneumoniae A&P Assessment and plan (1) Hx of CABG: (2) Essential (primary) hypertension: (3) Acute ID: (4) CAD (coronary artery disease): (5) Dyslipidemia: (6) Non-ST elevation ID (NSTEMI): (7) Unstable angina: (8) Type 2 diabetes mellitus without complications: (9) Contrast-induced nephropathy: Plan I think she can probably go home today. She will need to see the nurse practitioner in a week to 10 days for evaluation of her groin and for assessment of her renal function. She should then see Dr. Jaramillo in about 3 months. At this point, there really is no need for activity restriction. Hopefully she will do well without angina. She should go home on the statin, Plavix, long- acting nitrate, losartan and the other medications. The addition would be ranolazine 500 mg twice a day. Beta-sabrina has also been added and should be's prescribed when she goes home. I do not feel strongly about the furosemide. Attestations 2 Medical Necessity Statement*: Discharge today. and Moderate Time for a total of 40 minutes, includes reviewing past or interval history, examining/interviewing patient, placing orders, counseling patient/family/other support, updating patient/family/other support, discussing plan of care with staff, communicating with other healthcare providers and documenting encounter Diagnoses Hx of CABG Z95.1 Essential (primary) hypertension I10 Acute ID I21.9 CAD (coronary artery disease) I25.10 Dyslipidemia E78.5 Non-ST elevation ID (NSTEMI) I21.4 Unstable angina I20.0 Type 2 diabetes mellitus without complications E11.9 Contrast-induced nephropathy N14.11; T50.8X5A
[2023-09-02] MEDS: metoprolol tartrate 25 mg Tablet PO (09:13)
[2023-09-02] MEDS: aspirin 81 mg EC Tablet PO (09:13)
[2023-09-02] MEDS: ranolazine (12HR) 500 mg Tablet PO (09:13)
[2023-09-02] MEDS: FUROsemide 40 mg Tablet PO (09:13)
--- NOTE | 2023-09-02 09:56 | PM.DCS ---
Discharge Providers Date of Admission: 08/29/23 17:44 Date of Discharge: September 02, 2023 Attending Provider at Admission: Marques Hays DO Attending Provider at Discharge: Christiano Richard MD Consults: Cardiology: Dr. Jaramillo/Dr. Villela Primary Care Provider: Antonio Delgado MD Diagnoses at Discharge Discharge Diagnosis (1) Hx of CABG: Status: Acute (2) Essential (primary) hypertension: Status: Acute (3) Acute MA: Status: Acute (4) CAD (coronary artery disease): Status: Acute (5) Dyslipidemia: Status: Acute (6) Non-ST elevation MA (NSTEMI): Status: Acute (7) Unstable angina: Status: Acute (8) Type 2 diabetes mellitus without complications: Status: Acute (9) Contrast-induced nephropathy: Status: Acute Reason for Visit Reason for Visit: L arm pain Brief History: History as per HPI: Sally Henderson is a 83 year old female with PMH of CAD, MA with stent placement and CABG, HTN, TIIDM, HLD who presented to ER with LUE pain. Reports that she began to have L arm and shoulder pain a couple days ago. States that her symptoms have been worsening, with development of mild shortness of breath. She had initially attributed her symptoms to some MSK pain, but was encouraged to seek medical attention as her symptoms persisted. During her evaluation in the ER, she was noted to have elevated troponin and changes on EKG that were concerning for ischemia. Her initial troponin was 151. EKG showed T-wave changes in V2-V6. She did not complain of chest pain during evaluation today, but did continue to have intermittent shortness of breath. Vitals were stable in ER during evaluation. CBC unremarkable. Cr was mildly elevated to 1.1. Glucose was 250 on admission. Her urine was suggestive of UTI with elevated WBC's, Leuk esterace and nitrate positive. She was admitted for observation. Hospital Course Hospital Course Patient was admitted to the hospital further evaluation and management [id number] MA. Cardiology was consulted. Echocardiogram was done which showed EF of 55 to 60% with mild hypokinesia of inferior lateral wall and grade 1 diastolic dysfunction, dilated left atrium and mild MR. She underwent cardiac angiogram on 08/28 that showed patent [place] to LAD. Her SVG grafts to left circumflex artery and RCA were occluded. [place] left circumflex artery was totally occluded. Prior to subtotal occlusion there is 90-95% heavily calcified small caliber tortuous vessel. We were able to cross the subtotal occlusion with coronary wire. With a lot of difficulty, we were able to place small balloon and do balloon angioplasty. This improved flow significantly however larger 2.5 mm diameter balloon could not be advanced. Without coronary arthrectomy technically not possible to proceed with stent placement. We decided to medically treat her. Detailed discussion with patient and family. All options were discussed including high risk coronary intervention with arthrectomy versus medical therapy versus transfer to tertiary care hospital for further management. Patient and family have decided to proceed with medical therapy at this time. Her hospitalization was complicated by her developing an episode of shortness of breath in setting of congestive heart failure for which she required IV diuresis along with unstable angina for which she was continued on heparin drip for around 48 to 72 hours. Her renal functions remained stable. She has been discharged in hemodynamically stable condition after medical therapy has been optimized. Home O2 evaluation was done prior to discharge. Safe discharge plan were discussed in detail with the patient and she was agreeable for home health which is being arranged. Physical Exam Narrative: General: In acute distress because of difficulty in breathing, chest heaviness, AO x 3 HEENT: Normocephalic, Atraumatic. External ears normal. Nasal passages patent without drainage. MMM. Heart: S1-S2 regular, mildly tachycardic, no added sounds Resp: Normal Cerrobend sounds all over lung matta with rhonchi expiratory all over lung amtta, fine crackles up to mid chest Abd: Soft, non-tender. Non-distended. Extremities: No edema. Skin: No rash or lesions on exposed areas. Neuro: No focal motor or sensory loss. Urinary Catheter Management: Huff: Cath Placed During This Visit: yes Reason for Continuing Indwelling Catheter: Accurate Measurement of Urinary Output in Critically Ill Patients Urinary Catheter Date of Insertion: 08/30/23 Urinary Catheter Time of Insertion: 10:30 Discharge Data Studies Completed and Pending Completed Studies During Hospitalization Category Date Time Status CXRP [XR chest 1V portable [id number]] Stat Exams 08/30/23 10:00 Completed XR chest 1V portable [id number] Stat Exams 08/28/23 16:04 [place] [id number] Stat Exams 08/28/23 16:19 Completed CV. echo complete* [id number] Routine Ultrasound 08/29/23 17:26 Completed Pending at discharge Category Date Time Status CLINICAL ABSTRACTOR request for service Routine Exams 08/29/23 07:09 Taken Sestamibi Stress Test Request Stat Exams 08/28/23 18:42 Stop Req Radiology Impressions Humerus X-Ray 08/28/23 16:19 IMPRESSION: No acute findings. Echocardiogram: CONCLUSIONS LV systolic function is normal with EF of 50-55% Grade 1 diastolic function Left atrium is dilated Trace mitral regurgitation Trace pulmonic regurgitation Compared to prior echocardiogram from 2013, no significant changes are seen Boaz Jaramillo MD (Electronically Signed) Final Date: 30 August 2023 07:42 Laboratory Results WBC 12.40 10^3/uL (3.29-11.43) H 09/02/23 05:30 RBC 3.90 10^6/uL (3.85-5.65) 09/02/23 05:30 Hgb 11.20 g/dL (11.27-16.99) L 09/02/23 05:30 Hct 35.4 % (36-47) L 09/02/23 05:30 MCV 90.8 fl (85-98) 09/02/23 05:30 MCH 28.7 pg (27-33) 09/02/23 05:30 MCHC 31.6 g/dL (30-55) 09/02/23 05:30 RDW 12.8 % (12.1-15.1) 09/02/23 05:30 Plt Count 194 10^3/cmm (157-399) 09/02/23 05:30 MPV 11.6 fL (7.4-10.4) H 09/02/23 05:30 Neut % (Auto) 74.5 % 09/02/23 05:30 Lymph % (Auto) 11.0 % 09/02/23 05:30 Reynolds % (Auto) 11.0 % 09/02/23 05:30 Eos % (Auto) 2.9 % 09/02/23 05:30 Baso % (Auto) 0.2 % 09/02/23 05:30 Neut # (Auto) 9.24 10^3/uL (1.8-7.7) H 09/02/23 05:30 Lymph # (Auto) 1.4 10^3/uL (0.8-4.8) 09/02/23 05:30 Reynolds # (Auto) 1.4 10^3/uL (0.2-0.9) H 09/02/23 05:30 Eos # (Auto) 0.4 10^3/uL (0.0-0.8) 09/02/23 05:30 Baso # (Auto) 0.0 10^3/uL (0.0-0.1) 09/02/23 05:30 Nucleated RBC % (auto) 0 % 09/02/23 05:30 Nucleated RBCs # 0.0 /100WBC 09/02/23 05:30 APTT 29.4 SECONDS (23.9-36.7) D 09/01/23 12:53 Sodium 139 mmol/L (136-145) 09/02/23 05:30 Potassium 4.2 mmol/L (3.5-5.1) 09/02/23 05:30 Chloride 105 mmol/L (98-107) 09/02/23 05:30 Carbon Dioxide 28 mmol/L (22-29) 09/02/23 05:30 Anion Gap 10.2 (5-19) 09/02/23 05:30 BUN 30 mg/dL (8-23) H 09/02/23 05:30 Creatinine 1.2 mg/dL (0.5-0.9) H 09/02/23 05:30 GFR Calculation Not Reportable 09/02/23 05:30 Glucose 90 mg/dL (65-115) 09/02/23 05:30 POC Glucose 97 mg/dL (70-110) 09/02/23 06:09 Estimat Average Glucose 166 08/29/23 01:06 Hemoglobin A1c 7.4 % (4.0-6.0) H 08/29/23 01:06 Calculated Osmolality 294 mOsm/kg (285-295) 09/02/23 05:30 Calcium 8.7 mg/dL (8.5-10.5) 09/02/23 05:30 Magnesium 1.9 mg/dL (1.7-2.3) 09/02/23 05:30 Iron 58 ug/dL (37-145) 08/30/23 04:47 TIBC 209 mcg/dl 08/30/23 04:47 % Saturation 27.7 % (20-50) 08/30/23 04:47 Unsat Iron Binding 151 ug/dL (112-347) 08/30/23 04:47 Total Bilirubin 0.3 mg/dL (0.15-1.2) 09/02/23 05:30 AST 25 U/L (0-32) 09/02/23 05:30 ALT 17 U/L (0-33) 09/02/23 05:30 Alkaline Phosphatase 85 U/L (35-105) 09/02/23 05:30 Troponin T 5th Gen ng/L 652 ng/L (0-10) H* 08/30/23 12:25 Troponin T Baseline 151 ng/L (0-10) H* 08/28/23 16:16 Troponin T 120 Minute 328.3 ng/L (0-10) H 08/28/23 18:42 Delta Troponin T 177.3 ABS# (0-10) H* 08/28/23 18:42 Troponin T Hi Sens 6Hr 517.4 ng/L (0-10) H 08/28/23 22:39 Troponin T Hi Sens 6Hr Delta 366.4 ng/L (0-12) H* 08/28/23 22:39 Total Protein 6.5 g/dL (6.6-8.7) L 09/02/23 05:30 Albumin 3.1 g/dL (3.5-5.2) L 09/02/23 05:30 Globulin 3.4 g/dL (1.3-4.6) 09/02/23 05:30 Triglycerides 101 mg/dL (0-150) 08/29/23 01:06 Cholesterol 160 mg/dL (0-200) 08/29/23 01:06 LDL Cholesterol, Calc 83 mg/dL (50-129) 08/29/23 01:06 HDL Cholesterol 57 mg/dL (60-100) L 08/29/23 01:06 LDL/HDL Ratio 1.46 RATIO (0.00-3.22) 08/29/23 01:06 Cholesterol/HDL Ratio 2.81 mg/dL (0.0-4.40) 08/29/23 01:06 Vitamin B12 383 pg/mL (232-1245) 08/30/23 04:47 Folate 11.0 ng/mL (4.8-37.3) 08/31/23 03:48 TSH 1.20 uIU/mL (0.27-4.20) 08/29/23 01:06 Urine Color Straw (Yellow) 08/28/23 16:34 Urine Appearance Hazy (CLEAR) A 08/28/23 16:34 Urine pH 5 (5-7) 08/28/23 16:34 Ur Specific [place] 1.020 (1.005-1.030) 08/28/23 16:34 Urine Protein Neg (Negative) 08/28/23 16:34 Urine Glucose (UA) 4+ (Normal) H 08/28/23 16:34 Urine Ketones Negative (Negative) 08/28/23 16:34 Urine Blood Neg (Negative) 08/28/23 16:34 Urine Nitrate Positive (Negative) H 08/28/23 16:34 Urine Bilirubin Neg (Negative) 08/28/23 16:34 Urine Urobilinogen Norm mg/dL (Negative) 08/28/23 16:34 Ur Leukocyte Esterase 1+ (Negative) H 08/28/23 16:34 Urine RBC None /hpf (0-2) 08/28/23 16:34 Urine WBC 25-40 /hpf (0-5) H 08/28/23 16:34 Ur Squamous Epith Cells 0-4 /hpf (0-5) H 08/28/23 16:34 Amorphous Sediment Not Reportable 08/28/23 16:34 Urine Bacteria 2+ /hpf (NONE) H 08/28/23 16:34 Vitals Last Vital Signs Temp 98.1 F 09/02/23 07:34 Pulse 65 09/02/23 07:34 Resp 18 09/02/23 07:34 BP 99/58 09/02/23 07:34 Pulse Ox 92 09/02/23 07:34 O2 Del Method Nasal Cannula 09/02/23 07:34 O2 Flow Rate 1 09/02/23 07:26 Discharge Plan Discharge Patient Disposition: Home Condition: Stable Prescriptions: New aspirin 81 mg Tablet,Delayed Release (Dr/Ec) 81 mg PO DAILY Qty: 30 0RF metoprolol tartrate 25 mg Tablet 25 mg PO BID@0900,2100 30 Days Qty: 60 0RF isosorbide mononitrate 30 mg tablet extended release 24 hr 30 mg PO DAILY Qty: 30 0RF Continued clopidogrel 75 mg tablet 75 mg PO BEDTIME gabapentin 600 mg tablet 600 mg PO BEDTIME multivitamin Tablet 1 tab PO BEDTIME atorvastatin 40 mg tablet 40 mg PO BEDTIME losartan 25 mg tablet 25 mg PO BEDTIME ascorbic acid (vitamin C) [Vitamin C] 1,000 mg Tablet 1,000 mg PO DAILY tramadol 50 mg tablet 100 mg PO BEDTIME calcium carbonate 500 mg calcium (1,250 mg) Tablet 500 mg PO DAILY PRN (Reason: unknown) Tresiba FlexTouch U-200 200 unit/mL (3 mL) insulin pen 30 unit SUBCUT DAILY@17 Discontinued isosorbide mononitrate 60 mg tablet extended release 24 hr 60 mg PO BEDTIME Discharge Orders: Discharge Order (Routine); Ordered 09/02/23 Ordered By: Christiano Richard Other Ambulatory Orders: DME: Oxygen (Order) Location: None Selected Ordered By: Christiano Richard Referrals: Syl Castanon FNP [Nurse Practitioner] - 09/18/23 1:00 pm Antonio Delgado MD [Primary Care Provider] - 09/05/23 11:00 am Discharge Diet: Cardiac Discharge Activity: Resume usual activity and Increase activity as tolerated Patient Instructions: Metoprolol (By mouth) (Lopressor, Toprol XL), Aspirin (By mouth) (Liang Extra Strength, Liang Aspirin Children's,..., Isosorbide Mononitrate (By mouth) (Imdur, Imdur ER, Ismo), Coronary Angioplasty (DC), Opioid Safety, Post Angiogram Home Care Instructions, Post Heart Attack Stoplight Activity Restrictions/Additional Instructions: Restrict fluid intake to less than 1500 cc, salt intake to less than 2 g daily. Aspirin and Plavix are the antiplatelet medication which is supposed to take going forward. Take metoprolol 25 mg twice daily. Dose of Imdur has been changed to 30 mg daily. Please check your blood pressures daily and maintain a blood pressure diary and follow-up with a primary care provider and with shipping technician on set appointment for further adjustment of medications. Discharge Attestations Time Spent in Discharge Care*: greater than 30 min Specific Discharge Activities: educating patient, educating and/or supporting family/caregiver, discussing with pcp/other providers, discussing with case finishing machine adjuster/social workers/dc planners, documenting/other paperwork and evaluating patient/reviewing data Status at Discharge: Cognitive status at discharge: cognitively intact, Behavioral status at discharge: cooperative, Functional status at discharge: uses cane/walker, Overall status at discharge: patient is back to baseline Quality Metrics Clinical Quality Measures [ Acute Myocardial Infaction { Clinical Trial Participant: No; Contraindication to aspirin: None; Aspirin prescribed; Contraindication to statin: None; Statin prescribed; Contraindication to PCI: Intervention not indicated; Contraindication to Fibrinolytics: None; fibrinolytics given}. No reported AMI, CVA or VTE this stay] Coding Level of Care Code 43051 Total time (in minutes) for Discharge: 60 Diagnoses Hx of CABG Z95.1 Essential (primary) hypertension I10 Acute MA I21.9 CAD (coronary artery disease) I25.10 Dyslipidemia E78.5 Non-ST elevation MA (NSTEMI) I21.4 Unstable angina I20.0 Type 2 diabetes mellitus without complications E11.9 Contrast-induced nephropathy N14.11; T50.8X5A
[2023-09-02 11:48] LABS: Glucose Point of Care 225 mg/dL (70-110)
[2023-09-02] MEDS: insulin lispro 100 unit/1 mL SUBCUT (12:46)
--- NOTE | 2023-09-02 14:41 | PC.NURSE ---
Discharge Note Patient discharged to home via POV accompanied by family. Discharge instructions reviewed with patient and/or motor vehicle field representative. Mobile pharmacy medications and/or prescriptions provided. Belongings/home medications returned.
== END 2023-09-02 14:42 | disposition home health service (06) | DRG 250 ==
LOC: ER 18:04 → CSU 19:18
PROVIDERS: Internal Medicine; Admitting Provider Family Medicine; Emergency Provider Family Medicine; PCP Family Medicine; Visit Provider Student in an Organized Health Care Education/Training Program
PROC: 02703ZZ Dilation of Coronary Artery, One Artery, Percutaneous Approach (ICD-10-PCS; principal; 2023-08-29 10:00)
PROC: 02703ZZ Dilation of Coronary Artery, One Artery, Percutaneous Approach (ICD-10-PCS; 2023-08-29 10:00)
DX: I21.4 Non-ST elevation (NSTEMI) myocardial infarction (principal); I50.31 Acute diastolic (congestive) heart failure; J96.91 Respiratory failure, unspecified with hypoxia; N39.0 Urinary tract infection, site not specified; I11.0 Hypertensive heart disease with heart failure; E11.9 Type 2 diabetes mellitus without complications; E78.5 Hyperlipidemia, unspecified; N14.11 Contrast-induced nephropathy; T50.8X5A Adverse effect of diagnostic agents, initial encounter; I25.2 Old myocardial infarction; Z79.02 Long term (current) use of antithrombotics/antiplatelets; Z79.4 Long term (current) use of insulin
CPT/HCPCS: 36415; 36416; 51702; 71045; 73060; 80048; 80053; 80061; 81001; 82607; 82746; 82962; 83036; 83540; 83550; 83735; 84443; 84484; 85025; 85347; 85730; 87077; 87086; 87186; 92920; 93005; 93306; 93455; 94640; 94760; 96365; 96367; 96372; 96374; 96375; 96376; 97161; 97530; 99152; 99153; 99285; A9270; C1725; C1769; C1887; C1894; G0378; J0360; J0696; J1200; J1644; J1815; J1940; J2250; J2405; J3010; J7030; J7040; J9999; Q9967

== ENCOUNTER 2023-12-21 13:33 | Inpatient (IN) | payer MEDICARE, SELFPAY ==
[2023-12-21] VITALS (9 sets, daily range): BP systolic 109–167; BP diastolic 69–90; PULSE 67–93; RESP 15–21; TEMP 36.6–36.8; O2SAT 87–96; BMI 35.2
--- NOTE | 2023-12-21 13:35 | ECG_ITS ---
[facility] Test Date: 2023-12-21 Pat Name: Sally Henderson Department: Room: Gender: Female Passenger Screener: : 1940 Requested By: Thomas Benavidez Order Number: [id number] Leonora MD: Boaz Jaramillo M.D. Measurements Intervals [place] Rate: 96 P: 32 DE: 149 QRS: -52 QRSD: 112 T: 133 QT: 360 QTc: 455 Interpretive Statements SINUS RHYTHM WITH SINUS ARRHYTHMIA POSSIBLE LEFT ATRIAL ENLARGEMENT [-0.1mV P-WAVE IN V1/V2] RIGHT BUNDLE BRANCH BLOCK [120+ ms QRS DURATION, UPRIGHT V1, 40+ ms S IN I/aVL/V4/V5/V6] LEFT ANTERIOR FASCICULAR BLOCK [QRS AXIS <= -45, QR IN I, RS IN II] ST DEVIATION AND MODERATE T-WAVE ABNORMALITY, CONSIDER LATERAL ISCHEMIA [-0.1+ mV T-WAVE IN I/aVL/V5/V6] Compared to ECG 08/31/2023 12:01:12 Right bundle-branch block now present Left anterior fascicular block now present Sinus bradycardia no longer present Possible ischemia still present Electronically Signed On 12-21-2023 16:51:05 CDT by Boaz Jaramillo M.D. [id number] f
--- NOTE | 2023-12-21 13:35 | XRR_ITS ---
PROCEDURE INFORMATION: Exam: XR Chest Exam date and time: 12/21/2023 2:04 PM Age: 83 years old Clinical indication: Pain; Shortness of breath; Angina pectoris; Prior surgery; Surgery date: 6+ months; Surgery type: Open heart; Additional info: Chest pain TECHNIQUE: Imaging protocol: Radiologic exam of the chest. Views: 1 view. COMPARISON: CR XR chest 1V portable [id number] 08/30/2023 10:11 AM FINDINGS: Lungs: No consolidating infiltrates are noted. Pleural spaces: Unremarkable. No pleural effusion. No pneumothorax. Heart/Mediastinum: There is unchanged cardiomegaly Bones/joints: Postoperative changes of median sternotomy are noted. There are remote left rib fracture deformities again seen. XR/XR chest 1V portable [id number] IMPRESSION: Cardiomegaly without acute abnormality
--- NOTE | 2023-12-21 13:50 | W.ED.CHESTPA ---
HPI - Chest Pain General: Chief Complaint: Chest Pain Stated Complaint: cp Time Seen by Provider: 12/21/23 13:35 History of Present Illness: 83-year-old female with a history of coronary disease also has a history of diabetes mellitus presents emergency room with left shoulder pain and arm pain. She has known history of coronary disease and previously has had acute [place] had angiogram with stenting. She has a history of hypertension and hyperlipidemia as well. She was given nitro and aspirin. The discomfort is improved. She states she never really had specific chest pain mostly back pain and pain into the shoulder and the arm on the left. She was short of breath with it as well. Associated symptoms: Deny abdominal pain, dyspnea or fever(s) Review of Systems Const: Denies: fever(s) or chills Card: Reports: chest pain Resp: Denies: dyspnea GI: Denies: abdominal pain : Denies: dysuria, urinary frequency or urinary urgency Musc: Reports: back pain; Denies: neck pain Skin/Breast: Denies: rash PFSH ED PFSH: Medical History Contrast-induced nephropathy Dyslipidemia Type 2 diabetes mellitus without complications CAD (coronary artery disease) Acute WA Essential (primary) hypertension Surgical History Hx of hysterectomy Hx of CABG Social History Smoking and tobacco/nicotine status: never used tobacco/nicotine Alcohol intake: never Substance/Drug Use: never Physical Exam Const: GENERAL APPEARANCE: cooperative ORIENTATION/CONSCIOUSNESS: Yes awake, Yes oriented to person, Yes oriented to place and Yes oriented to time HENMT: COMMON NORMALS: normocephalic, atraumatic and hearing grossly normal bilaterally HEAD & SCALP: normocephalic and atraumatic Resp: COMMON NORMALS: normal respiratory effort, No retractions, No use of accessory muscles and clear to auscultation bilaterally AUSCULTATION: clear to auscultation bilaterally Cardio: COMMON NORMALS: regular rate, regular rhythm and No murmurs present (Cardio) RATE: regular rate RHYTHM: regular rhythm GI: COMMON NORMALS: Soft to palpation and No hepatosplenomegaly present AUSCULTATION: Yes normoactive bowel sounds PALPATION: Yes Soft to palpation, No Tenderness to palpation present (GI), No Guarding due to palpation present (GI) and Yes No hepatosplenomegaly present Extremity: COMMON NORMALS: normal to inspection, capillary refill normal, no clubbing, cyanosis or edema, no calf tenderness and no pedal edema Neuro: SENSORIUM/ORIENTATION: Yes oriented to person, Yes oriented to place and Yes oriented to time Skin: COMMON NORMALS: no rashes or lesions noted GENERAL SKIN EXAM: no rashes or lesions noted Course Vital Signs: Vital signs: Vital Signs Temperature 98.2 F 12/21/23 13:34 Pulse Rate 74 12/21/23 16:39 Respiratory Rate 21 H 12/21/23 13:34 Blood Pressure 109/90 12/21/23 16:39 Pulse Oximetry 95 12/21/23 16:39 Oxygen Delivery Me thod Nasal Cannula 12/21/23 16:39 Oxygen Flow Rate 3 12/21/23 16:39 MDM - Chest Pain Medical Decision Making Patient's discomfort has resolved however she has EKG changes with lateral ST depression when she first arrived looks similar to EKGs changes that she had in August her second EKG however shows actually significant improvement even over against the August EKGs. Her first troponin is 50 but her second was well over 400 with a delta of greater than 380. Patient had already been started on topical nitro we will add heparin drip and admit the patient and consult cardiology. In addition to this she was noted to have mild hyperkalemia she was given insulin and calcium chloride. Patient states her symptoms have resolved at this point Lab Data 12/21/23 13:52 12/21/23 13:52 Radiology Impressions Chest X-Ray 12/21/23 13:35 IMPRESSION: Cardiomegaly without acute abnormality Laboratory Results WBC 10.54 10^3/uL (3.29-11.43) 12/21/23 13:52 RBC 4.26 10^6/uL (3.85-5.65) 12/21/23 13:52 Hgb 11.70 g/dL (11.27-16.99) 12/21/23 13:52 Hct 38.0 % (36-47) 12/21/23 13:52 MCV 89.2 fl (85-98) 12/21/23 13:52 MCH 27.5 pg (27-33) 12/21/23 13:52 MCHC 30.8 g/dL (30-55) 12/21/23 13:52 RDW 12.6 % (12.1-15.1) 12/21/23 13:52 Plt Count 264 10^3/cmm (157-399) 12/21/23 13:52 MPV 11.2 fL (7.4-10.4) H 12/21/23 13:52 Neut % (Auto) 81.8 % 12/21/23 13:52 Lymph % (Auto) 11.0 % 12/21/23 13:52 [place] % (Auto) 5.0 % 12/21/23 13:52 Eos % (Auto) 1.7 % 12/21/23 13:52 Baso % (Auto) 0.2 % 12/21/23 13:52 Neut # (Auto) 8.62 10^3/uL (1.8-7.7) H 12/21/23 13:52 Lymph # (Auto) 1.2 10^3/uL (0.8-4.8) 12/21/23 13:52 [place] # (Auto) 0.5 10^3/uL (0.2-0.9) 12/21/23 13:52 Eos # (Auto) 0.2 10^3/uL (0.0-0.8) 12/21/23 13:52 Baso # (Auto) 0.0 10^3/uL (0.0-0.1) 12/21/23 13:52 Nucleated RBC % (auto) 0 % 12/21/23 13:52 Nucleated RBCs # 0.0 /100WBC 12/21/23 13:52 Sodium 139 mmol/L (136-145) 12/21/23 13:52 Potassium 5.4 mmol/L (3.5-5.1) H 12/21/23 13:52 Chloride 105 mmol/L (98-107) 12/21/23 13:52 Carbon Dioxide 22 mmol/L (22-29) 12/21/23 13:52 Anion Gap 17.4 (5-19) 12/21/23 13:52 BUN 17 mg/dL (8-23) 12/21/23 13:52 Creatinine 0.9 mg/dL (0.5-0.9) 12/21/23 13:52 GFR Calculation Not Reportable 12/21/23 13:52 Glucose 325 mg/dL (65-115) H 12/21/23 13:52 Calculated Osmolality 302 mOsm/kg (285-295) H 12/21/23 13:52 Calcium 8.1 mg/dL (8.5-10.5) L 12/21/23 13:52 Total Bilirubin 0.2 mg/dL (0.15-1.2) 12/21/23 13:52 AST 21 U/L (0-32) 12/21/23 13:52 ALT 11 U/L (0-33) 12/21/23 13:52 Alkaline Phosphatase 124 U/L (35-105) H 12/21/23 13:52 Troponin T Baseline 51 ng/L (0-10) H 12/21/23 13:52 Troponin T 120 Minute 439.6 ng/L (0-10) H 12/21/23 14:05 Delta Troponin T 388.6 ABS# (0-10) H* 12/21/23 14:05 Total Protein 6.2 g/dL (6.6-8.7) L 12/21/23 13:52 Albumin 3.5 g/dL (3.5-5.2) 12/21/23 13:52 Globulin 2.7 g/dL (1.3-4.6) 12/21/23 13:52 Urine Color Yellow (Yellow) 12/21/23 14:46 Urine Appearance Clear (CLEAR) 12/21/23 14:46 Urine pH 5.5 (5-7) 12/21/23 14:46 Ur Specific [place] 1.016 (1.005-1.030) 12/21/23 14:46 Urine Protein Negative (Negative) 12/21/23 14:46 Urine Glucose (UA) 3+ (Normal) H 12/21/23 14:46 Urine Ketones Negative (Negative) 12/21/23 14:46 Urine Blood Negative (Negative) 12/21/23 14:46 Urine Nitrate Negative (Negative) 12/21/23 14:46 Urine Bilirubin Negative (Negative) 12/21/23 14:46 Urine Urobilinogen 0.2 mg/dL (Negative) 12/21/23 14:46 Ur Leukocyte Esterase Negative (Negative) 12/21/23 14:46 Urine RBC 0-2 /hpf (0-2) 12/21/23 14:46 Urine WBC 0-5 /hpf (0-5) 12/21/23 14:46 Ur Squamous Epith Cells 0-5 /hpf (0-5) 12/21/23 14:46 Amorphous Sediment Not Reportable 12/21/23 14:46 Urine Bacteria None seen /hpf (NONE) 12/21/23 14:46 Hyaline Casts 5.77 /lpf 12/21/23 14:46 All radiology interpretation(s) finalized by discharge EKG Data EKG 1: Interpretation: ST depression in 1 to and in the lateral leads V4 through 6. There is ST elevation in aVR which was present in her old EKGs there is also some ST elevation in V1 but there is no contiguous leads. Does not meet criteria for ST elevation WA initially. Patient has a rate of 86 AK interval 149 corrected QT of 455. EKG compared to August 2023 EKGs EKG 2: Interpretation: Sinus rhythm left axis deviation EKG changes noted previously have resolved the lateral ischemia and the ST depression in 1 and 2 has resolved there is Q waves in V1 and V1 lead has normalized. Rate of 72 QT interval of 476 corrected Discharge Plan Discharge Patient Disposition: Admitted As Inpatient Clinical Impression: Non-ST elevation WA (NSTEMI), Type 2 diabetes mellitus without complications, Acute hyperkalemia Condition: Stable Coding Level of Care Code ED Trim Master Operator for Akosua Vasquez
[2023-12-21 14:01] LABS: Basophils % 0.2 %; Eosinophils # 0.2 10^3/uL (0.0-0.8); Eosinophils % 1.7 %; Lymphocytes # 1.2 10^3/uL (0.8-4.8); Mean Corpuscular HGB Conc 30.8 g/dL (30-55); Mean Corpuscular Hemoglobin 27.5 pg (27-33); Mean Corpuscular Volume 89.2 fl (85-98); Mean Platelet Volume 11.2 fL (7.4-10.4); Monocytes # 0.5 10^3/uL (0.2-0.9); Neutrophils # 8.62 10^3/uL (1.8-7.7); Neutrophils % 81.8 %; Nucleated Red Blood Cells % 0 %; Platelet Count 264 10^3/cmm (157-399); Red Blood Count 4.26 10^6/uL (3.85-5.65); Red Cell Distribution Width 12.6 % (12.1-15.1); White Blood Count 10.54 10^3/uL (3.29-11.43)
[2023-12-21 14:29] LABS: Troponin(5th) Baseline 51 ng/L (0-10)
[2023-12-21 14:32] LABS: Alanine Aminotransferase 11 U/L (0-33); Albumin Level 3.5 g/dL (3.5-5.2); Alkaline Phosphatase 124 U/L (35-105); Aspartate Amino Transferase 21 U/L (0-32); Blood Urea Nitrogen 17 mg/dL (8-23); Calcium 8.1 mg/dL (8.5-10.5); Carbon Dioxide 22 mmol/L (22-29); Chloride 105 mmol/L (98-107); Creatinine Clr Calc Pharmacy 46.4033; Globulin 2.7 g/dL (1.3-4.6); Glucose 325 mg/dL (65-115); Osmolality Calculated 302 mOsm/kg (285-295); Sodium 139 mmol/L (136-145); Total Bilirubin 0.2 mg/dL (0.15-1.2); Total Protein 6.2 g/dL (6.6-8.7)
[2023-12-21 14:40] LABS: Anion Gap 17.4 (5-19); Potassium 5.4 mmol/L (3.5-5.1)
[2023-12-21 14:53] LABS: Charge for UA Resulting for Rev
[2023-12-21 14:59] LABS: Bilirubin Urine Negative (Negative); Blood Urine Negative (Negative); Glucose Urine UA 3+ (Normal); Ketones Urine Negative (Negative); Leukocyte Esterase Urine Negative (Negative); Nitrate Urine Negative (Negative); Protein Urine Negative (Negative); Specific Gravity, Urine 1.016 (1.005-1.030); Urine Appearance Clear (CLEAR); Urine Color Yellow (Yellow); Urobilinogen Urine 0.2 mg/dL (Negative); pH Urine 5.5 (5-7)
[2023-12-21 15:05] LABS: Bacteria Urine None Seen /hpf; Hyaline Casts Urine 5.77 /lpf; RBC Urine 0-2 /hpf (0-2); Squamous Epithelial Cell Urine 0-5 /hpf (0-5); WBC Urine 0-5 /hpf (0-5)
--- NOTE | 2023-12-21 15:42 | ECG_ITS ---
[facility] Test Date: 2023-12-21 Pat Name: Sally Henderson Department: Room: Gender: Female Physicist Cryogenics: : 1940 Requested By: Thomas Benavidez Order Number: [id number] Leonora MD: Boaz Jaramillo M.D. Measurements Intervals [place] Rate: 72 P: 29 NV: 157 QRS: -36 QRSD: 98 T: 139 QT: 435 QTc: 476 Interpretive Statements SINUS RHYTHM LEFT AXIS DEVIATION [QRS AXIS < -30] PATTERN CONSISTENT WITH PULMONARY DISEASE INCOMPLETE RIGHT BUNDLE BRANCH BLOCK [90+ ms QRS DURATION, TERMINAL R IN V1/V2, 40+ ms S IN I/aVL/V4/V5/V6] LEFT VENTRICULAR HYPERTROPHY AND ST-T CHANGE [VOLTAGE CRITERIA PLUS ST/T ABNORMALITY] Compared to ECG 12/21/2023 13:40:10 Left-axis deviation now present Incomplete right bundle-branch block now present Left ventricular hypertrophy now present ST (T wave) deviation now present T-wave abnormality no longer present Possible ischemia no longer present Electronically Signed On 12-21-2023 16:51:27 CDT by Boaz Jaramillo M.D. [id number]
[2023-12-21] MEDS: nitroglycerin 1 gm/inch oint Pkt 0.5 INCH TOPICAL (16:01)
--- NOTE | 2023-12-21 16:34 | USCV_ITS ---
Sally Henderson Age: 83 Gender: F : 1940 Exam Date: 12/21/2023 19:05 Ordering Phys: Willem Steward MD Technologist: ROXANE [place] [facility] [place]: SOB, hx CAD, hx DM, s/p NH s/p cardiac stents, HTN, HL BP: 138 / 84 HR: 64 Rhythm: Sinus Technical Quality: Adequate MEASUREMENTS (Male / Female) Normal Values 2D ECHO LV Diastolic Diameter PLAX 4.5 cm 4.2 - 5.9 / 3.9 - 5.3 cm IVS Diastolic Thickness 1.4 cm 0.6 - 1.0 / 0.6 - 0.9 cm IVS Systolic Thickness 2.0 cm LVPW Diastolic Thickness 1.5 cm 0.6 - 1.0 / 0.6 - 0.9 cm LVPW Systolic Thickness 1.5 cm LVOT Diameter 1.7 cm LV Ejection Fraction 2D Teich 48.6 % LV Ejection Fraction MOD 4C 41.7 % LV Ejection Fraction MOD 2C 44.7 % LV Ejection Fraction 2C AL 43.1 % LA Diameter 5.1 cm Aorta at Sinotubular Diameter 2.9 cm IVC Diameter 1.5 cm M-MODE LA Ao Ratio MM 1.7 AV Cusp Separation MM 1.3 cm DOPPLER AV Peak Velocity 120.0 cm/s LVOT Peak Velocity 85.0 cm/s AV Area Cont Eq vti 1.6 cm squared AV Area Cont Eq pk 1.6 cm squared MV Peak Velocity 95.0 cm/s MV Area PHT 2.3 cm squared Mitral E to A Ratio 0.8 TR Peak Velocity 297.0 cm/s TR Peak Gradient 35.3 mmHg TV Peak E Velocity 45.0 cm/s Right Atrial Pressure 10.0 mmHg Pulmonary Artery Systolic Pressu 45.3 mmHg PV Peak Velocity 77.0 cm/s FINDINGS Left Ventricle Left ventricle is normal size. LV systolic function is normal with EF of 50 to 55%. Mild inferolateral and anterolateral wall hypokinesis. Grade 1 distolic dysfunction. Right Ventricle Normal in size and function Right Atrium Normal in size Left Atrium Normal in size Mitral Valve Structurally normal valve. Trace mitral regurgitation. Aortic Valve Structurally normal aortic valve. No significant stenosis or regurgitation Tricuspid Valve Mild tricuspid regurgitation. RVSP is 45 to 50 mmHg. This is consistent with moderate pulmonary hypertension Pulmonic Valve Trace pulmonic regurgitation. Pericardium Normal Aorta Normal in size IVC Appears to be normal CONCLUSIONS LV systolic function is normal with EF of 50-55% Above mentioned regional wall motion abnormalities Grade 1 diastolic dysfunction Trace mitral regurgitation Mild tricuspid regurgitation Moderate pulmonary hypertension Trace pulmonic regurgitation Compared to prior echocardiogram from 08/2023, no significant changes are seen. Boaz Jaramillo MD (Electronically Signed) Final Date: 22 December 2023 12:17 S
[2023-12-21 16:36] LABS: Troponin 5 2HR 439.6 ng/L (0-10); Troponin 5 2HR Delta 388.6 ABS# (0-10)
[2023-12-21] MEDS: insulin regular-human 100 units/1 mL 10 UNIT IVP (16:37)
[2023-12-21] MEDS: calcium chloride 10% Syr 10 mL 1 GM IVP (16:37)
--- NOTE | 2023-12-21 16:45 | P.HP_ITS ---
Providers/Chief Complaint 2 Primary Care Provider: Antonio Delgado MD Chief Complaint: cp History of Present Illness Sally Henderson is a 83 year old female with a past medical history of CAD, insulin-dependent type 2 diabetes mellitus, who presents [facility] due to left shoulder pain, with complaints of shortness of breath. Currently patient's chest pain-free, no shoulder pain, does report lower extremity Stella and shortness of breath and wheezing. She tells me that she never gets chest pain, today she noticed severe pain in her left shoulder left arm, with feeling shortness of breath, similar to when she had her prior coronary angiogram does report increased lower extremity edema, increased shortness of breath, no smoking history, no fevers, no cough, Review of Systems 2 Const: Denies: fever(s) Resp: Reports: dyspnea GI: Denies: abdominal pain : Denies: flank pain Medications/Allergies Home Medications Medication Instructions Recorded Confirmed Last Taken Type clopidogrel 75 mg tablet 75 mg PO BEDTIME 05/28/19 12/21/23 12/20/23 History gabapentin 600 mg tablet 600 mg PO BEDTIME 05/28/19 12/21/23 12/20/23 History atorvastatin 40 mg tablet 40 mg PO BEDTIME 09/19/20 12/21/23 12/20/23 History losartan 25 mg tablet 25 mg PO BEDTIME 09/19/20 12/21/23 12/20/23 History multivitamin 1 tab PO BEDTIME 09/19/20 12/21/23 12/20/23 History ascorbic acid (vitamin C) 1,000 mg 1,000 mg PO DAILY 04/14/22 12/21/23 12/20/23 History tablet (Vitamin C) calcium carbonate 500 mg PO DAILY 08/29/23 12/21/23 12/20/23 History insulin degludec 200 unit/mL (3 30 unit SUBCUT DAILY@17 08/29/23 12/21/23 12/20/23 History mL) subcutaneous pen (Tresiba FlexTouch U-200 insulin) tramadol 50 mg tablet 100 mg PO BEDTIME 08/29/23 12/21/23 12/20/23 History aspirin 81 mg tablet,delayed 81 mg PO DAILY #30 tabs 09/02/23 12/21/23 12/20/23 Rx release isosorbide mononitrate 30 mg 30 mg PO DAILY #30 tabs 09/02/23 12/21/23 12/20/23 Rx tablet,extended release 24 hr Allergies Allergy/AdvReac Type Severity Reaction Status Date / Time No Known Allergies Allergy Verified 12/21/23 13:44 PFSH Acute 2 PFSH: Medical History Contrast-induced nephropathy Dyslipidemia Type 2 diabetes mellitus without complications CAD (coronary artery disease) Acute [place] Essential (primary) hypertension Surgical History Hx of hysterectomy Hx of CABG Social History (Updated 12/21/23 @ 16:46 by Willem Steward MD) Smoking and tobacco/nicotine status: never used tobacco/nicotine Alcohol intake: never Substance/Drug Use: never Vitals/I&O/Wt Last Vital Signs Temp 98.2 F 12/21/23 13:34 Pulse 74 12/21/23 16:39 Resp 21 H 12/21/23 13:34 BP 109/90 12/21/23 16:39 Pulse Ox 95 12/21/23 16:39 O2 Del Method Nasal Cannula 12/21/23 16:39 O2 Flow Rate 3 12/21/23 16:39 Weight last 48 hrs Weight 81.647 kg Physical Exam 2 Const: COMMON NORMALS: no acute distress and patient oriented x3 HENMT: COMMON NORMALS: normocephalic HEAD & SCALP: normocephalic Eye: COMMON NORMALS: Equal, round and reactive pupils present Neck/C-Spine: COMMON NORMALS: no JVD Resp: COMMON NORMALS: normal respiratory effort, No retractions and No use of accessory muscles AUSCULTATION: crackles and wheezes Cardio: COMMON NORMALS: no JVD, regular rate, regular rhythm, S1 normal heart sound present and S2 normal heart sound present RATE: regular rate RHYTHM: regular rhythm HEART SOUNDS: S1 normal heart sound present and S2 normal heart sound present GI: COMMON NORMALS: Normal to inspection, nondistended, normoactive bowel sounds present, Soft to palpation and non-tender Extremity: COMMON NORMALS: no calf tenderness and no pedal edema Neuro: COMMON NORMALS: patient oriented x3, CN's II-XII intact bilaterally and moves all extremities Psych: COMMON NORMALS: mental status grossly normal Data 12/21/23 13:52 12/21/23 13:52 A&P Assessment and plan (1) Non-ST elevation [place] (NSTEMI): (2) Unstable angina: (3) Fluid overload: (4) Type 2 diabetes mellitus without complications: Plan NSTEMI -Atypical cardiac symptoms ? 120-minute troponin 439.6, 388.6, -Initial EKG showed ST depressions in lateral leads ? Results were reviewed with cardiology ? Plan ? Keep n.p.o. for now ? Heparin drip ? Continue aspirin, statin, Plavix -cardiac echo ? Monitor for recurrent chest pain, shoulder pain, -Monitor for shortness of breath -Does have wheezing on exam, 1+ nonpitting edema, 1 dose IV Lasix 40 mg ? Continue home Tresiba 15 units subcut -low-dose sliding scale # Full code ? Protonix for GI prophylaxis # Heparin drip for DVT prophylaxis Attestations 2 Medical Necessity Statement*: Patient requires hospitalization, inpatient, greater than 2 midnights for NSTEMI, shortness of breath, concerning for CHF exacerbation, fluid overload Diagnoses Non-ST elevation [place] (NSTEMI) I21.4 Unstable angina I20.0 Fluid overload E87.70 Type 2 diabetes mellitus without complications E11.9
[2023-12-21 16:57] LABS: Glucose Point of Care 231 mg/dL (70-110)
[2023-12-21 17:16] LABS: Lactic Sepsis W/Reflex 1.4 mmol/L (0.5-2.2)
--- NOTE | 2023-12-21 17:34 | PM.CONSULT ---
Providers/Reason For Consult Consulting Physician/Specialty*: Boaz Jaramillo MD/ Cardiology Reason for Consult*: NSTEMI Requesting Physician: Dr Nava Attending Physician: Willem Steward MD Primary Care Provider: Antonio Delgado MD History of Present Illness History of Present Illness Sally Henderson is a 83 year old female with past medical history of CAD s/p CABG who was admitted with NSTEMI in August who was found to have patent [place] to LAD, occluded SVG grafts, INVESTIGATIONS CONSULTANT of RCA, critical, heavily calcified subtotally occluded left circumflex artery that underwent balloon angioplasty however complete revascularization could not be performed as stent could not be advanced. She presents today with left shoulder pain radiating to left arm again. Also was having shortness of breath. Initial EKG showed significant ST depressions in lateral leads. After receiving nitro and started on anticoagulation, EKG changes have resolved. She is chest pain-free now. Initial troponin was 51 that trended up to 439 at 2 hours. Review of Systems Const: Denies: fever(s) Card: Reports: chest pain Resp: Reports: dyspnea GI: Denies: abdominal pain : Denies: flank pain Medications/Allergies Home Medications Medication Instructions Recorded Confirmed Last Taken Type clopidogrel 75 mg tablet 75 mg PO BEDTIME 05/28/19 12/21/23 12/20/23 History gabapentin 600 mg tablet 600 mg PO BEDTIME 05/28/19 12/21/23 12/20/23 History atorvastatin 40 mg tablet 40 mg PO BEDTIME 09/19/20 12/21/23 12/20/23 History losartan 25 mg tablet 25 mg PO BEDTIME 09/19/20 12/21/23 12/20/23 History multivitamin 1 tab PO BEDTIME 09/19/20 12/21/23 12/20/23 History ascorbic acid (vitamin C) 1,000 mg 1,000 mg PO DAILY 04/14/22 12/21/23 12/20/23 History tablet (Vitamin C) calcium carbonate 500 mg PO DAILY 08/29/23 12/21/23 12/20/23 History insulin degludec 200 unit/mL (3 30 unit SUBCUT DAILY@17 08/29/23 12/21/23 12/20/23 History mL) subcutaneous pen (Tresiba FlexTouch U-200 insulin) tramadol 50 mg tablet 100 mg PO BEDTIME 08/29/23 12/21/23 12/20/23 History aspirin 81 mg tablet,delayed 81 mg PO DAILY #30 tabs 09/02/23 12/21/23 12/20/23 Rx release isosorbide mononitrate 30 mg 30 mg PO DAILY #30 tabs 09/02/23 12/21/23 12/20/23 Rx tablet,extended release 24 hr Allergies Allergy/AdvReac Type Severity Reaction Status Date / Time No Known Allergies Allergy Verified 12/21/23 13:44 PFSH Acute PFSH: Medical History Contrast-induced nephropathy Dyslipidemia Type 2 diabetes mellitus without complications CAD (coronary artery disease) Acute [place] Essential (primary) hypertension Surgical History Hx of hysterectomy Hx of CABG Social History Smoking and tobacco/nicotine status: never used tobacco/nicotine Alcohol intake: never Substance/Drug Use: never Vitals/I&O/Wt Last Vital Signs Temp 98.2 F 12/21/23 13:34 Pulse 74 12/21/23 16:39 Resp 21 H 12/21/23 13:34 BP 109/90 12/21/23 16:39 Pulse Ox 94 12/21/23 17:05 O2 Del Method Nasal Cannula 12/21/23 17:05 O2 Flow Rate 3 12/21/23 17:05 Weight last 48 hrs Weight 180 lb Physical Exam Narrative: GENERAL: Patient is alert, awake and oriented x3. [] NECK: No jugular vein distension. [] HEENT: No cyanosis. No icterus. No pallor. [] HEART: Regular S1 and S2. No murmur, rub or gallop. [] LUNGS: Clear to auscultate bilaterally. [] CENTRAL NERVOUS SYSTEM: Grossly nonfocal. [] EXTREMITIES: Lower extremities with 1+ edema bilaterally. Data 12/22/23 05:45 12/22/23 05:45 A&P Assessment and plan (1) Non-ST elevation [place] (NSTEMI): (2) CAD (coronary artery disease): (3) Essential (primary) hypertension: (4) Type 2 diabetes mellitus without complications: Plan Patient has presented with non-ST elevation [place]. She has subtotally occluded left circumflex artery. Bypass graft to LCx/OM territory is occluded. Previous attempt at revascularization was unsuccessful as larger balloon/ stent could not be advanced. Patient did not want to proceed with arthrectomy at time. Options of transferring were also discussed. Final decision at that time was to proceed with medical therapy. She has presented again with non-ST elevation [place]. I had a detailed discussion today again. She was otherwise doing well with prior to this episode. She is undecided if she would want any aggressive intervention but wants to proceed with coronary angiogram to assess coronary anatomy and confirm there is not new stenosis. We will have discussion regarding further therapy after that. Continue dual antiplatelet therapy Continue anticoagulation Order limited echocardiogram to assess LV systolic function. Thank you for involving us with care of this patient. We will continue to follow. Please call with questions. Consult Attestations Medical Necessity Statement: Care expected to cross 2 midnights. Coding Level of Care Code Acute Code for [facility] Diagnoses Non-ST elevation [place] (NSTEMI) I21.4 CAD (coronary artery disease) I25.10 Essential (primary) hypertension I10 Type 2 diabetes mellitus without complications E11.9
[2023-12-21 17:35] LABS: NT Pro B Type Natriuretic Pept 2559 pg/mL (0-450); Procalcitonin 0.03 ng/mL (0-0.5); Thyroid Stimulating Hormone 1.56 uIU/mL (0.27-4.20)
[2023-12-21 17:43] LABS: Glucose Point of Care 132 mg/dL (70-110)
[2023-12-21 17:47] LABS: C Reactive Protein 3.8 mg/L (0.0-4.9); Chol HDL Ratio 2.57 mg/dL (0.0-4.40); Cholesterol 136 mg/dL (0-200); HDL Cholesterol 53 mg/dL (60-100); LDL Cholesterol Calculated 52 mg/dL (50-129); LDL HDL Ratio 0.98 RATIO (0.00-3.22); Triglycerides 154 mg/dL (0-150)
[2023-12-21] MEDS: heparin drip 25,000 UNIT/500 ML PREMIX 23 UNIT IV (17:56)
[2023-12-21] MEDS: heparin 5,000 unit/mL INJ 1 mL IVP (17:58)
[2023-12-21] MEDS: FUROsemide 10 mg/mL SDV 4mL 40 MG IVP (17:59)
[2023-12-21] MEDS: clopidogrel 300 mg Tablet PO (18:22)
[2023-12-21] MEDS: pantoprazole 40 mg SDV IVP (18:23)
[2023-12-21 19:06] LABS: Charge for UA Resulting for Rev
[2023-12-21 19:09] LABS: Bilirubin Urine Negative (Negative); Blood Urine Negative (Negative); Glucose Urine UA 2+ (Normal); Ketones Urine Negative (Negative); Leukocyte Esterase Urine Negative (Negative); Nitrate Urine Negative (Negative); Protein Urine Negative (Negative); Specific Gravity, Urine 1.014 (1.005-1.030); Urine Appearance Clear (CLEAR); Urine Color Yellow (Yellow); Urobilinogen Urine 0.2 mg/dL (Negative)
[2023-12-21 19:11] LABS: Bacteria Urine None Seen /hpf; Hyaline Casts Urine 1.21 /lpf; RBC Urine 0-2 /hpf (0-2); Squamous Epithelial Cell Urine 0-5 /hpf (0-5); WBC Urine 0-5 /hpf (0-5)
--- NOTE | 2023-12-21 19:41 | ECG_ITS ---
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 Measurements Intervals [place] Rate: 65 P: 34 IL: 155 QRS: -41 QRSD: 88 T: 120 QT: 447 QTc: 466 Interpretive Statements SINUS RHYTHM LEFT AXIS DEVIATION [QRS AXIS < -30] POSSIBLE RIGHT VENTRICULAR CONDUCTION DELAY [RSR (QR) IN V1/V2] LEFT VENTRICULAR HYPERTROPHY AND ST-T CHANGE [VOLTAGE CRITERIA PLUS ST/T ABNORMALITY] Compared to ECG 12/21/2023 15:42:13 Incomplete right bundle-branch block no longer present ST (T wave) deviation still present Electronically Signed On 12-22-2023 11:58:16 CDT by Boaz Jaramillo M.D. [email or web address]
[2023-12-21 20:06] LABS: Glucose Point of Care 203 mg/dL (70-110)
--- NOTE | 2023-12-21 20:06 | PC.NURSE ---
shift note-heparin drip Pt arrived from ER to room around 1735, dr jaramillo at her bedside discussing treatments and plan. initial loading dose initiated per weight base protocol. baseline PTT not taken. Will do 6 hr aPtt per protocol on heparin drip afterwards. Initial heparin bolus given per protocol and both co signed with LIANA guajardo. Received order from Dr mendieta to insert gurrola catheter. received orders from Dr Jaramillo to give 300 mg Plavix once and nitro drip PRN only for chest pain.
--- NOTE | 2023-12-21 20:18 | PC.NURSE ---
patient home med are in med refrigerator they are tresdia aspirin and tramadol
[2023-12-21] MEDS: TRAMadol 50 mg Tablet 100 MG PO (20:48)
[2023-12-21] MEDS: atorvastatin 40 mg Tablet PO (20:48)
[2023-12-21] MEDS: multivitamin therapeutic Tablet 1 TAB PO (20:48)
[2023-12-21] MEDS: gabapentin 300 mg Capsule 600 MG PO (20:49)
[2023-12-21 20:53] LABS: Troponin 5 6HR 1407 ng/L (0-10)
[2023-12-21 20:54] LABS: Troponin 5 6HR Delta 1356 ng/L (0-12)
[2023-12-21 23:06] LABS: Adenovirus Not Detected (NOT DETECT); Chlamydia Pneumoniae Not Detected (NOT DETECT); Coronavirus 229E,HKU1,NL63,OC4 Not Detected (NOT DETECT); Human Metapneumovirus Not Detected (NOT DETECT); Human Rhinovirus/Enterovirus Not Detected (NOT DETECT); Influenza A Not Detected (NOT DETECT); Influenza A H1 Not Detected (NOT DETECT); Influenza A H1-2009 Not Detected (NOT DETECT); Influenza A H3 Not Detected (NOT DETECT); Influenza B Not Detected (NOT DETECT); Mycoplasma Pneumoniae Not Detected (NOT DETECT); Parainfluenza Virus Type 1 Not Detected (NOT DETECT); Parainfluenza Virus Type 2 Not Detected (NOT DETECT); Parainfluenza Virus Type 3 Not Detected (NOT DETECT); Parainfluenza Virus Type 4 Not Detected (NOT DETECT); Respiratory Syncytial Virus A Not Detected (NOT DETECT); Respiratory Syncytial Virus B Not Detected (NOT DETECT); SARS-COV-2 Not Detected (NOT DETECT)
[2023-12-21 23:57] LABS: Partial Thromboplastin Time 94.5 SECONDS (23.9-36.7)
[2023-12-22] VITALS (13 sets, daily range): BP systolic 123–169; BP diastolic 54–104; PULSE 54–75; RESP 13–19; TEMP 36.3–36.7; O2SAT 89–98
[2023-12-22 05:52] LABS: Basophils % 0.3 %; Eosinophils # 0.3 10^3/uL (0.0-0.8); Eosinophils % 2.6 %; Hematocrit 39.9 % (36-47); Lymphocytes # 2.1 10^3/uL (0.8-4.8); Lymphocytes % 20.5 %; Mean Corpuscular HGB Conc 31.6 g/dL (30-55); Mean Corpuscular Hemoglobin 27.7 pg (27-33); Mean Corpuscular Volume 87.7 fl (85-98); Mean Platelet Volume 11.2 fL (7.4-10.4); Monocytes # 0.9 10^3/uL (0.2-0.9); Monocytes % 9.2 %; Neutrophils # 6.86 10^3/uL (1.8-7.7); Neutrophils % 67.1 %; Nucleated Red Blood Cells % 0 %; Platelet Count 244 10^3/cmm (157-399); Red Blood Count 4.55 10^6/uL (3.85-5.65); Red Cell Distribution Width 12.5 % (12.1-15.1); White Blood Count 10.22 10^3/uL (3.29-11.43)
[2023-12-22 06:12] LABS: Partial Thromboplastin Time 91.6 SECONDS (23.9-36.7)
[2023-12-22 06:13] LABS: Anion Gap 13.9 (5-19); Blood Urea Nitrogen 18 mg/dL (8-23); Calcium 8.7 mg/dL (8.5-10.5); Carbon Dioxide 26 mmol/L (22-29); Chloride 103 mmol/L (98-107); Creatinine Clr Calc Pharmacy 45.8414; Glucose 154 mg/dL (65-115); Osmolality Calculated 293 mOsm/kg (285-295); Potassium 3.9 mmol/L (3.5-5.1); Sodium 139 mmol/L (136-145)
[2023-12-22 06:28] LABS: Glucose Point of Care 161 mg/dL (70-110)
--- NOTE | 2023-12-22 08:37 | PC.NURSE ---
heparin drip put on hold for [facility].
--- NOTE | 2023-12-22 09:10 | PC.CHAP ---
Pastoral Care Encounter/Spiritual Assessment Type of Contact [x] Declined oil fire specialist visit [] Patient/Family/Request visit [] Outpatient visit [] Follow-up visit [] Physician referral [] Code/Alert [x] Routine visit [] Staff referral [] Actively dying [] Patient sleeping [] Family support [] [] Out of room [] Palliative care [] [] Receiving care in room [] Pre-surgical visit [] Trauma [] Long length of stay [] ICU visit [] Other: Relational/Emotional Strength [x] Patient feels connected with others/family/visitors/staff [] Distress [] Loneliness/isolation [] Abandonment Spirituality of Patient [x] Person of Mckenna [x] Attends Presybeterian of their [place] [x] Believes in Prayer [] Reads Bible or Sabianist materials [] There are Spiritual issues to be addressed Scrubber System Attendant 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 [] Prayer [x] Active listening [x] Non-anxious presence [] Spiritual/emotional support [] Crisis/trauma care [] Spiritual counseling [] Bereavement support [] Provided bereavement packet [] Provided Bible/devotional materials [] Provided toy/stuffed animal, coloring book to patient or family member [] Provided Communion [] Anointing/[place] [] Salvation [] Completed spiritual assessment [] Other: Impact on Illness or Injury [] Angry [] Fearful [] Anxious [] Often cries [] Exhaustion [] Unable to work [] Unable to attend protestant [] Unable to walk/stand [] Unable to read [] Unable to drive [] Unable to eat/drink [] Unable to sleep [] Unable to be with family [] Patient intubated [] Other: Summary Has pipe recovery specialist in room with her Time spent with patient 2min
--- NOTE | 2023-12-22 09:13 | XACV_ITS ---
Exam Room: 2 Ht: 152 cm Wt: 80 kg BSA: 1.88 m2 Gender: Female : 1940 Any Known Allergies: No known allergies Exam Priority: Routine Procedure(s): Procedure Description: Diagnostic procedure Procedure Description: GILL[place] Graft Catheterization Procedure Description: Coronary Angiography Diagnostic Cath Status: Urgent Diagnostic Findings * Left Main has mild luminal irregularities.. * Mid Left Anterior Descending: chronic total occlusion, SEAN: 0 flow. A medium sized, diffusely diseased diagonal artery arises prior to total occlusion of LAD. * Mid Right Coronary Artery: Chronic total occlusion, SEAN: 0 flow. Distal vessel has collateral blood supply from contralateral side. * Proximal to mid left circumflex artery has severe serial 95-99% stenoses. This is heavily calcified, toruous vessel. * Bypass grafts: GILL[place] to LAD is patent. SVG grafts are known occluded. Not injected.. * Coronary angiography shows right dominance. Conclusions 1. Severe multivessel [place] coronary artery disease. GILL[place] to LAD is patent. Culprit lesion for ACS is heavily calcified subtotally occluded [place] left circumflex artery. After diagnostic angiogram we did not proceed with PCI attempt as this vessel will need high risk PCI with arthrectomy. We will discuss all options with patient and family including medical therapy vs high risk PCI here vs transfer to tertiary care center. Based on patient's preference, will proceed further.. 2. Patient has prior CABG. Recommendations * Based on patient's decision regarding further management, we will proceed with above mentioned options. * Resume anticoauglation in 4 hours. Continue dual antiplatelet therapy. Pressures Phase:Rest AO : 139 / 58 ( 85 ) @ 11:09:00 AM 150 / 63 ( 93 ) @ 11:13:00 AM 152 / 60 ( 95 ) @ 11:16:00 AM Clinical Evaluation EBL: 5mL-10mL Procedural Details Procedure Consent Obtained. Pre-Procedure Time Out. Identified patient by full name and date of as verbalized by the patient/guarantor. Does the consent match the physician's order: Yes. Accurate & Complete Informed Consent: Yes. Inpatient/Outpatient History & Physical on Chart: Yes. If H&P is completed, is and addenduem needed: No; If yes, is the addendum complete: N/A. Visualize and Verify Site with Patient/Guarantor: N/A. Relevant Radiology Images available: Yes. Pre-op teaching completed and patient verbalized understanding. The risks, benefits, and alternatives of sedation and/or procedure were discussed by physician. The patient agrees to continue. Procedure started. [facility] Clinical Fraility Score: 4: Vulnerable. Trade Clerk Indications: ACS > 24 hours. Chest Pain Symptom Assessment: Atypical Angina. Correct patient, site and procedure confirmed by cath team. Current diagnosis: NSTEMI. PERRLA. Strong, equal hand salesforce specialist bilaterally. Lungs clear x 5 lobes. IV Site on Arrival: 20 gauge in the left anticubital. IV Fluids: 0.9% NaCl at KVO. 0 mL infused prior to construction laborer. Oxygen started at 2liters/min via nasal canula. bilateral groins was prepped with chloroprep then draped in the usual sterile fashion. Physician arrived. Baseline sample Acquired. HR: 65 BPM. Physician scrubbed in. Immediate Pre-Procedure Time Out. Correct Patient: Yes; Correct Procedure: Yes; Correct Site: Yes; Correct Patient Position: Yes; Correct Supplies: Yes; Dried Flammable Prep: Yes; Blood Products Available: N/A;. Lidocaine 1% infiltrated to the right groin. Arterial access obtained with micropuncture set. Wire unable to advance. Wire and needle out. Ultrasound being used to obtain access. Arterial access obtained with micropuncture set. A 5 hungarian JL4 catheter in over wire. Multiple views taken of left coronary artery. Catheter removed over the standard wire. A 5 hungarian JR4 catheter in over wire. Multiple views taken of right coronary artery. GILLILAND to LAD visualized. Catheter removed over the standard wire. ACT drawn. Results 150 seconds. Therapeutic limits - pre-heparin administration 90-150 seconds and monitoring heparin during a vascular procedure >250 seconds. A Right femoral angiogram was performed to determine safe placement of closure device. A Mynx was successful obtaining hemostatsis at the Right Femoral artery insertion site. Post Procedure: Pulses reassessed and unchanged. PERRLA. Strong, equal hand salesforce specialist bilaterally. No VTE prophylaxis required. Medication's Wasted: Lidocaine 1% = 10 mL. Medication's Wasted: Other = Fentanyl 50mcg Versed 2 mg. Total IV fluids: 50 mL. Vital chart was stopped. Post-op diagnosis: CAD. Complications: None. Estimated blood loss: 5mL-10mL. Responsiveness - Normal response to verbal stimuli; alert and oriented, PERRLA. Airway - Unaffected, no intervention required; spontaneous ventilation. Circulation: W/N/L, pulses unchanged. Nausea/Vomiting: No. Procedure completed. Patient transferred by bed to CPRU. Access Site Site: Right Femoral artery Sheath Size: 6 Fr Hemostasis Method: Mynx Hemostasis Success: Successful Procedure Medications Start: 9:55 AM Stop: 9:55 AM Medication: Versed 1 mg and Fentanyl 25 mcg Amount: 1 Route: I.V. Start: 10:08 AM Stop: 10:08 AM Medication: Versed 1 mg and Fentanyl 25 mcg Amount: 1 Route: I.V. I, the attending physician, have reviewed and verified all procedure medications. Yes, all medications given per verbal order History/Risk Factors Hypertension: Yes Dyslipidemia: Yes Peripheral Arterial Disease (PAD): No Myocardial Infarction (ID): No Obesity: No Renal Disease: No Tobacco Use: Never Prior 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 PCI: No CABG: Yes Valve Surgery: No Report Signatures Finalized by Boaz Jaramillo MD on 12/26/2023 09:24 AM
--- NOTE | 2023-12-22 09:53 | W.PM.OPSUD ---
Surgery/Procedure H&P Update DATE OF PROCEDURE: December 22, 2023 DATE H&P PERFORMED: 12/21/23 H&P UPDATE INFORMATION: I have reviewed H&P completed within last 30 days, I have examined patient prior to procedure and No changes to prior documentation PREOP DIAGNOSIS: NSTEMI PRIMARY INDICATION FOR PROCEDURE: NSTEMI PLANNED PROCEDURE: Left heart cath with possible percutaneous coronary intervention PATIENT REASSESSED PRIOR TO SEDATION, WITH NO CHANGE NOTED: Yes PHYSICAL EXAM: alert, oriented x 3, clear to auscultation bilaterally and regular rate & rhythm AIRWAY EVAL/ANESTHESIA PLAN: normal airway, ASA III, Local Anesthesia, Risks, benefits & alternatives of sedation and/or procedure discussed and Patient agrees to continue as planned ADDITIONAL INFORMATION: Moderate sedation
--- NOTE | 2023-12-22 10:34 | P.PN_ITS ---
Subjective 2 Subjective: Patient was seen this morning, denies any shoulder pain this morning no chest pain this morning or shortness of breath improved with the Lasix, troponin up to 1400, proceeding with cardiac catheterization this morning Vitals/I&O/Wt Last Vital Signs Temp 97.8 F 12/22/23 07:28 Pulse 55 L 12/22/23 08:06 Resp 16 12/22/23 08:06 BP 157/90 12/22/23 07:28 Pulse Ox 94 12/22/23 08:06 O2 Del Method Nasal Cannula 12/22/23 08:06 O2 Flow Rate 3 12/22/23 08:06 12/21/23 12/22/23 12/22/23 22:59 06:59 14:59 Intake Total 300 / 300 265.550 / 565.550 Output Total 700 / 700 400 / 1100 Balance -400 / -400 -134.450 / -534.450 Weight last 48 hrs Weight 79.832 kg Weight 81.647 kg Weight 81.647 kg Physical Exam 2 Const: COMMON NORMALS: no acute distress and patient oriented x3 Resp: COMMON NORMALS: normal respiratory effort, No retractions, No use of accessory muscles and clear to auscultation bilaterally AUSCULTATION: clear to auscultation bilaterally Cardio: COMMON NORMALS: regular rate, regular rhythm, S1 normal heart sound present and S2 normal heart sound present RATE: regular rate RHYTHM: r egular rhythm HEART SOUNDS: S1 normal heart sound present and S2 normal heart sound present GI: COMMON NORMALS: Normal to inspection, nondistended, normoactive bowel sounds present and non-tender Extremity: COMMON NORMALS: no pedal edema Neuro: COMMON NORMALS: patient oriented x3 Psych: COMMON NORMALS: mental status grossly normal Urinary Catheter Management: Huff: Cath Placed During This Visit: yes Reason for Continuing Indwelling Catheter: Accurate Measurement of Urinary Output in Critically Ill Patients Urinary Catheter Date of Insertion: 12/21/23 Urinary Catheter Time of Insertion: 19:00 Data 12/22/23 05:45 12/22/23 05:45 A&P Assessment and plan (1) Non-ST elevation [place] (NSTEMI): (2) Unstable angina: (3) Fluid overload: (4) Type 2 diabetes mellitus without complications: Plan NSTEMI -Atypical cardiac symptoms ? 120-minute troponin 439.6, 6-hour 1407 -Initial EKG showed ST depressions in lateral leads ? Results were reviewed with cardiology Is planning cardiac catheterization today ? Plan ? Keep n.p.o. for now ? Heparin drip ? Continue aspirin, statin, Plavix -cardiac echo ? Monitor for recurrent chest pain, shoulder pain, -Monitor for shortness of breath -Hold off on Lasix as there is plans on cardiac cath today ? Continue home Tresiba 15 units subcut -low-dose sliding scale # Full code ? Protonix for GI prophylaxis # Heparin drip for DVT prophylaxis Attestations 2 Medical Necessity Statement*: Patient requires hospitalization for NSTEMI, CHF, requiring coronary angiography, requiring diuresis Diagnoses Non-ST elevation [place] (NSTEMI) I21.4 Unstable angina I20.0 Fluid overload E87.70 Type 2 diabetes mellitus without complications E11.9
--- NOTE | 2023-12-22 10:40 | SUR.EXTENDED ---
Received the patient back from the research laboratory specialist via bed s/p Diagnostic C. Patient drowsy. Awakens to verbal stimuli. A & 0 x 3. child monitor placed and vital signs obtained. Right femoral access s/p MYNX closure. Groin soft with no bleeding or hematoma noted. Dressing D/I. Will transfer to room 108 after recovery. Patient with no concerns voiced at this time.
--- NOTE | 2023-12-22 11:25 | SUR.EXTENDED ---
Patient transferred via bed to room 108.
--- NOTE | 2023-12-22 11:38 | PC.NURSE ---
Daughter to received information per patient Her name is Stephan contact#-[phone].
[2023-12-22 11:41] LABS: Glucose Point of Care 141 mg/dL (70-110)
--- NOTE | 2023-12-22 12:02 | PC.NURSE ---
Addendum entered by Mae Fall RN 12/22/23 15:17: Dr Jaramillo wants to restart the Heparin drip per initial maintenance dose rate and initial IV bolus per her weight base. Original Note: heparin drip to restart Called dr Jaramillo to verify if we need to restart her Heparin drip. Per Dr. Jaramillo to restart it at 3 pm if no hematoma 4 hrs post minx closure.
[2023-12-22] MEDS: ondansetron 2 mg/ML SDV 2 mL 4 MG IVP (12:07)
[2023-12-22] MEDS: aspirin 81 mg EC Tablet PO (12:15)
[2023-12-22] MEDS: insulin lispro 100 unit/1 mL SUBCUT ×2 (12:15→18:30)
--- NOTE | 2023-12-22 12:19 | PC.NURSE ---
pt back from calibration laboratory technician pt is alert, awake, orientedx4. denies any chest pain or SOB. right groin has no bleeding, hematoma or swelling post mynx closure. educated pt on bedrest for 4 hrs and no lifting or bending on right hip and leg. call light w/in reach. visitors at bedside. vs checked and monitored per post cath.
--- NOTE | 2023-12-22 12:33 | P.PN_ITS ---
Subjective 2 Subjective: Patient doing well. no chest pain. Coronary angiogram showed subtotal occlusion of heavily calcified ostial to mid left circumflex artery. Vitals/I&O/Wt Last Vital Signs Temp 98.0 F 12/22/23 12:00 Pulse 59 L 12/22/23 12:00 Resp 19 H 12/22/23 12:00 BP 148/72 12/22/23 12:00 Pulse Ox 89 L 12/22/23 12:00 O2 Del Method Nasal Cannula 12/22/23 12:00 O2 Flow Rate 3 12/22/23 08:06 12/21/23 12/22/23 12/22/23 22:59 06:59 14:59 Intake Total 300 / 300 265.550 / 565.550 Output Total 700 / 700 400 / 1100 Balance -400 / -400 -134.450 / -534.450 Weight last 48 hrs Weight 176 lb Weight 180 lb Weight 180 lb Physical Exam 2 Narrative: GENERAL: Patient is alert, awake and oriented x3. [] NECK: No jugular vein distension. [] HEENT: No cyanosis. No icterus. No pallor. [] HEART: Regular S1 and S2. No murmur, rub or gallop. [] LUNGS: Clear to auscultate bilaterally. [] CENTRAL NERVOUS SYSTEM: Grossly nonfocal. [] EXTREMITIES: Lower extremities with 1+ edema bilaterally. Urinary Catheter Management: Huff: Cath Placed During This Visit: yes Reason for Continuing Indwelling Catheter: Accurate Measurement of Urinary Output in Critically Ill Patients Urinary Catheter Date of Insertion: 12/21/23 Urinary Catheter Time of Insertion: 19:00 Data 12/22/23 05:45 12/22/23 05:45 A&P Assessment and plan (1) Non-ST elevation [place] (NSTEMI): (2) CAD (coronary artery disease): (3) Essential (primary) hypertension: (4) Type 2 diabetes mellitus without complications: Plan Patient has same anatomy as last coronary angiogram. [place] to LAD is patent. Has septal and diagonal arteries coming off of occluded LAD that are patent. Ostial to mid left circumflex artery is subtotally occluded with heavy calcification. Patient still undecided about high risk intervention of this vessel. Shared decision with patient made to continue with medical therapy. If she stays chest pain-free by Monday, can be discharged home with optimal medical therapy and add Ranexa. She understands risk of recurrent WI. Option of transfer to tertiary care facility also discussed. Continue dual antiplatelet therapy We will resume heparin gtt at 3 PM ( 4 hours post sheath pull). Echo shows normal LV systolic function and mild hypokinesis of inferolateral and anterolateral parkinson. This is unchanged from before Thank you for involving us with care of this patient. We will continue to follow. Please call with questions. Attestations 2 Medical Necessity Statement*: Care expected to cross 2 midnights. Coding Level of Care Code Acute Code for g Fwd Diagnoses Non-ST elevation [place] (NSTEMI) I21.4 CAD (coronary artery disease) I25.10 Essential (primary) hypertension I10 Type 2 diabetes mellitus without complications E11.9
--- NOTE | 2023-12-22 15:18 | PC.SOCIAL ---
IMM Updated Updated pt on IMM. No questions voiced. Provided pt a copy. Initialed, dated, & timed a copy & placed in chart.
[2023-12-22] MEDS: heparin 5,000 unit/mL INJ 1 mL IVP (15:31)
[2023-12-22] MEDS: heparin drip 25,000 UNIT/500 ML PREMIX 23 UNIT IV (15:34)
[2023-12-22 16:37] LABS: Glucose Point of Care 235 mg/dL (70-110)
[2023-12-22] MEDS: clopidogrel 75 mg Tablet PO (17:34)
[2023-12-22] MEDS: pantoprazole 40 mg SDV IVP (17:34)
[2023-12-22] MEDS: acetaminophen 325 mg Tablet 650 MG PO (18:03)
[2023-12-22] MEDS: TRESIBA 15 EACH SUBCUT (18:04)
--- NOTE | 2023-12-22 18:24 | PC.NURSE ---
pt did not bring her needles for her tresiba notified dr. mendieta. he is okay to dc cristo. and continue humalog sliding scale for now.
[2023-12-22] MEDS: multivitamin therapeutic Tablet 1 TAB PO (20:24)
[2023-12-22] MEDS: TRAMadol 50 mg Tablet 100 MG PO (20:24)
[2023-12-22] MEDS: atorvastatin 40 mg Tablet PO (20:24)
[2023-12-22] MEDS: gabapentin 300 mg Capsule 600 MG PO (20:24)
[2023-12-22 20:34] LABS: Glucose Point of Care 259 mg/dL (70-110)
[2023-12-22 22:49] LABS: Partial Thromboplastin Time 91.2 SECONDS (23.9-36.7)
[2023-12-23] VITALS (57 sets, daily range): BP systolic 105–153; BP diastolic 49–74; PULSE 54–84; RESP 10–26; TEMP 36.5–36.7; O2SAT 86–97
[2023-12-23] MEDS: heparin drip 25,000 UNIT/500 ML PREMIX 20 UNIT IV (00:41)
[2023-12-23 04:39] LABS: Basophils % 0.2 %; Eosinophils # 0.3 10^3/uL (0.0-0.8); Eosinophils % 3.2 %; Lymphocytes # 2.2 10^3/uL (0.8-4.8); Lymphocytes % 24.8 %; Mean Corpuscular HGB Conc 30.5 g/dL (30-55); Mean Corpuscular Hemoglobin 27.7 pg (27-33); Mean Corpuscular Volume 90.9 fl (85-98); Mean Platelet Volume 11.5 fL (7.4-10.4); Monocytes # 0.9 10^3/uL (0.2-0.9); Monocytes % 9.4 %; Neutrophils # 5.58 10^3/uL (1.8-7.7); Neutrophils % 62.1 %; Nucleated Red Blood Cells % 0 %; Platelet Count 194 10^3/cmm (157-399); Red Blood Count 4.29 10^6/uL (3.85-5.65); Red Cell Distribution Width 12.4 % (12.1-15.1)
[2023-12-23 04:58] LABS: Anion Gap 16.5 (5-19); Blood Urea Nitrogen 22 mg/dL (8-23); Calcium 8.2 mg/dL (8.5-10.5); Carbon Dioxide 24 mmol/L (22-29); Chloride 104 mmol/L (98-107); Glucose 208 mg/dL (65-115); Osmolality Calculated 299 mOsm/kg (285-295); Potassium 4.5 mmol/L (3.5-5.1); Sodium 140 mmol/L (136-145)
[2023-12-23 04:59] LABS: Partial Thromboplastin Time 107.9 SECONDS (23.9-36.7)
[2023-12-23 06:33] LABS: Glucose Point of Care 214 mg/dL (70-110)
[2023-12-23] MEDS: aspirin 81 mg EC Tablet PO (09:01)
[2023-12-23] MEDS: insulin lispro 100 unit/1 mL SUBCUT ×3 (09:02→17:39)
[2023-12-23 11:22] LABS: Glucose Point of Care 242 mg/dL (70-110)
--- NOTE | 2023-12-23 14:06 | P.PN_ITS ---
Subjective 2 Subjective: Patient was seen this morning, she denies any fevers, chills, cough, no shortness of breath, no shoulder pain, no chest pain Vitals/I&O/Wt Last Vital Signs Temp 97.8 F 12/23/23 12:00 Pulse 63 12/23/23 12:00 Resp 17 12/23/23 12:00 BP 150/69 12/23/23 12:00 Pulse Ox 94 12/23/23 12:00 O2 Del Method Nasal Cannula 12/23/23 12:00 O2 Flow Rate 2 12/23/23 09:00 12/22/23 12/23/23 12/23/23 22:59 06:59 14:59 Intake Total 1005.334 / 1005.334 641.816 / 1647.150 480 / 480 Output Total 450 / 450 425 / 875 Balance 555.334 / 555.334 216.816 / 772.150 480 / 480 Weight last 48 hrs Weight 78.755 kg Weight 79.832 kg Weight 81.647 kg Physical Exam 2 Const: COMMON NORMALS: no acute distress and patient oriented x3 Resp: COMMON NORMALS: normal respiratory effort, No retractions, No use of accessory muscles and clear to auscultation bilaterally AUSCULTATION: clear to auscultation bilaterally Cardio: COMMON NORMALS: regular rate, regular rhythm, S1 normal heart sound present and S2 normal heart sound present RATE: regular rate RHYTHM: r egular rhythm HEART SOUNDS: S1 normal heart sound present and S2 normal heart sound present GI: COMMON NORMALS: Normal to inspection, nondistended, normoactive bowel sounds present and non-tender Extremity: COMMON NORMALS: no pedal edema Neuro: COMMON NORMALS: patient oriented x3 Psych: COMMON NORMALS: mental status grossly normal Urinary Catheter Management: Huff: Cath Placed During This Visit: yes Reason for Continuing Indwelling Catheter: Accurate Measurement of Urinary Output in Critically Ill Patients Urinary Catheter Date of Insertion: 12/21/23 Urinary Catheter Time of Insertion: 19:00 Data 12/23/23 04:31 12/23/23 04:31 A&P Assessment and plan (1) Non-ST elevation [place] (NSTEMI): (2) Unstable angina: (3) Fluid overload: (4) Type 2 diabetes mellitus without complications: Plan NSTEMI -Atypical cardiac symptoms ? 120-minute troponin 439.6, 6-hour 1407 -Initial EKG showed ST depressions in lateral leads ? Results were reviewed with cardiology Is planning cardiac catheterization today,Coronary angiogram showed subtotal occlusion of heavily calcified ostial to mid left circumflex artery. Plan on medical management ? Plan ? Cardiac diet ? Heparin drip ? Continue aspirin, statin, Plavix -cardiac echo CONCLUSIONS LV systolic function is normal with EF of 50-55% Above mentioned regional wall motion abnormalities Grade 1 diastolic dysfunction Trace mitral regurgitation Mild tricuspid regurgitation Moderate pulmonary hypertension Trace pulmonic regurgitation Compared to prior echocardiogram from 08/2023, no significant changes are seen. ? Monitor for recurrent chest pain, shoulder pain, -Monitor for shortness of breath -low-dose sliding scale # Full code ? Protonix for GI prophylaxis # Heparin drip for DVT prophylaxis Attestations 2 Medical Necessity Statement*: Patient requires hospitalization for NSTEMI, left circumflex occlusion medically managed Diagnoses Non-ST elevation [place] (NSTEMI) I21.4 Unstable angina I20.0 Fluid overload E87.70 Type 2 diabetes mellitus without complications E11.9
[2023-12-23 14:32] LABS: Partial Thromboplastin Time 45.4 SECONDS (23.9-36.7)
[2023-12-23 16:30] LABS: Glucose Point of Care 181 mg/dL (70-110)
[2023-12-23] MEDS: pantoprazole 40 mg SDV IVP (17:39)
[2023-12-23] MEDS: clopidogrel 75 mg Tablet PO (17:39)
[2023-12-23] MEDS: multivitamin therapeutic Tablet 1 TAB PO (20:20)
[2023-12-23] MEDS: gabapentin 300 mg Capsule 600 MG PO (20:20)
[2023-12-23] MEDS: TRAMadol 50 mg Tablet 100 MG PO (20:20)
[2023-12-23] MEDS: atorvastatin 40 mg Tablet PO (20:20)
[2023-12-23 22:06] LABS: Partial Thromboplastin Time 56.2 SECONDS (23.9-36.7)
[2023-12-24] VITALS (58 sets, daily range): BP systolic 113–160; BP diastolic 62–82; PULSE 62–78; RESP 15–28; TEMP 36.7–36.9; O2SAT 92–96
[2023-12-24 03:36] LABS: Basophils % 0.2 %; Eosinophils # 0.3 10^3/uL (0.0-0.8); Eosinophils % 3.1 %; Hematocrit 38.3 % (36-47); Lymphocytes % 20.1 %; Mean Corpuscular HGB Conc 31.1 g/dL (30-55); Mean Corpuscular Hemoglobin 27.5 pg (27-33); Mean Corpuscular Volume 88.7 fl (85-98); Mean Platelet Volume 11.7 fL (7.4-10.4); Monocytes # 0.8 10^3/uL (0.2-0.9); Monocytes % 8.5 %; Neutrophils # 6.67 10^3/uL (1.8-7.7); Neutrophils % 67.8 %; Nucleated Red Blood Cells % 0 %; Platelet Count 199 10^3/cmm (157-399); Red Blood Count 4.32 10^6/uL (3.85-5.65); Red Cell Distribution Width 12.3 % (12.1-15.1); White Blood Count 9.82 10^3/uL (3.29-11.43)
[2023-12-24 03:58] LABS: Anion Gap 14.7 (5-19); Blood Urea Nitrogen 21 mg/dL (8-23); Calcium 8.6 mg/dL (8.5-10.5); Carbon Dioxide 28 mmol/L (22-29); Chloride 102 mmol/L (98-107); Glucose 168 mg/dL (65-115); Osmolality Calculated 297 mOsm/kg (285-295); Potassium 4.7 mmol/L (3.5-5.1); Sodium 140 mmol/L (136-145)
[2023-12-24 04:01] LABS: Partial Thromboplastin Time 73.2 SECONDS (23.9-36.7)
[2023-12-24] MEDS: heparin drip 25,000 UNIT/500 ML PREMIX 17 UNIT IV (05:39)
[2023-12-24 06:29] LABS: Glucose Point of Care 165 mg/dL (70-110)
[2023-12-24] MEDS: aspirin 81 mg EC Tablet PO (08:24)
[2023-12-24] MEDS: insulin lispro 100 unit/1 mL SUBCUT ×3 (08:24→17:20)
[2023-12-24 09:24] LABS: Partial Thromboplastin Time 54.3 SECONDS (23.9-36.7)
[2023-12-24 11:50] LABS: Glucose Point of Care 192 mg/dL (70-110)
[2023-12-24] MEDS: acetaminophen 325 mg Tablet 650 MG PO (13:48)
--- NOTE | 2023-12-24 16:47 | P.PN_ITS ---
Subjective 2 Subjective: patient was seen this morning, denies chest pain, no shortness of breath Vitals/I&O/Wt Last Vital Signs Temp 98.0 F 12/24/23 11:09 Pulse 62 12/24/23 14:00 Resp 20 H 12/24/23 11:09 BP 133/64 12/24/23 11:09 Pulse Ox 96 12/24/23 11:09 O2 Del Method Room Air 12/24/23 11:09 O2 Flow Rate 1.5 12/24/23 03:09 12/24/23 12/24/23 12/24/23 06:59 14:59 22:59 Intake Total 604.434 / 1596.667 687.833 / 687.833 Output Total 950 / 1350 Balance -345.566 / 246.667 687.833 / 687.833 Weight last 48 hrs Weight 78.471 kg Weight 78.755 kg Physical Exam 2 Const: COMMON NORMALS: no acute distress and patient oriented x3 Resp: COMMON NORMALS: normal respiratory effort, No retractions, No use of accessory muscles and clear to auscultation bilaterally AUSCULTATION: clear to auscultation bilaterally Cardio: COMMON NORMALS: regular rate, regular rhythm, S1 normal heart sound present and S2 normal heart sound present RATE: regular rate RHYTHM: r egular rhythm HEART SOUNDS: S1 normal heart sound present and S2 normal heart sound present GI: COMMON NORMALS: Normal to inspection, nondistended, normoactive bowel sounds present and non-tender Extremity: COMMON NORMALS: no pedal edema Neuro: COMMON NORMALS: patient oriented x3 Psych: COMMON NORMALS: mental status grossly normal Urinary Catheter Management: Huff: Cath Placed During This Visit: yes Reason for Continuing Indwelling Catheter: Accurate Measurement of Urinary Output in Critically Ill Patients Urinary Catheter Date of Insertion: 12/21/23 Urinary Catheter Time of Insertion: 19:00 Data 12/24/23 03:00 12/24/23 03:00 A&P Assessment and plan (1) Non-ST elevation [place] (NSTEMI): (2) Unstable angina: (3) Fluid overload: (4) Type 2 diabetes mellitus without complications: Plan NSTEMI -Atypical cardiac symptoms ? 120-minute troponin 439.6, 6-hour 1407 -Initial EKG showed ST depressions in lateral leads ? Results were reviewed with cardiology Is planning cardiac catheterization today,Coronary angiogram showed subtotal occlusion of heavily calcified ostial to mid left circumflex artery. Plan on medical management ? Plan ? Cardiac diet ? Heparin drip ? Continue aspirin, statin, Plavix -cardiac echo CONCLUSIONS LV systolic function is normal with EF of 50-55% Above mentioned regional wall motion abnormalities Grade 1 diastolic dysfunction Trace mitral regurgitation Mild tricuspid regurgitation Moderate pulmonary hypertension Trace pulmonic regurgitation Compared to prior echocardiogram from 08/2023, no significant changes are seen. ? Monitor for recurrent chest pain, shoulder pain, -Monitor for shortness of breath -low-dose sliding scale # Full code ? Protonix for GI prophylaxis # Heparin drip for DVT prophylaxis Attestations 2 Medical Necessity Statement*: patient requires hospitalization for nstemi Diagnoses Non-ST elevation [place] (NSTEMI) I21.4 Unstable angina I20.0 Fluid overload E87.70 Type 2 diabetes mellitus without complications E11.9
[2023-12-24 17:03] LABS: Glucose Point of Care 209 mg/dL (70-110)
[2023-12-24] MEDS: pantoprazole 40 mg SDV IVP (17:19)
[2023-12-24] MEDS: predniSONE 20 mg Tablet 40 MG PO (17:19)
[2023-12-24] MEDS: clopidogrel 75 mg Tablet PO (17:20)
[2023-12-24] MEDS: gabapentin 300 mg Capsule 600 MG PO (20:09)
[2023-12-24] MEDS: multivitamin therapeutic Tablet 1 TAB PO (20:09)
[2023-12-24] MEDS: atorvastatin 40 mg Tablet PO (20:09)
[2023-12-24] MEDS: TRAMadol 50 mg Tablet 100 MG PO (20:09)
[2023-12-24 21:13] LABS: Glucose Point of Care 289 mg/dL (70-110)
[2023-12-24 23:18] LABS: Partial Thromboplastin Time 49.7 SECONDS (23.9-36.7)
[2023-12-24] MEDS: heparin 5,000 unit/mL INJ 1 mL IVP (23:52)
[2023-12-25] VITALS: BP 122/73; PULSE 67; RESP 17; TEMP 36.4; O2SAT 91
[2023-12-25 04:00] VITALS: BP 150/72; PULSE 72; RESP 20; TEMP 36.7; O2SAT 92
[2023-12-25 05:44] LABS: Basophils % 0.1 %; Hematocrit 39.6 % (36-47); Lymphocytes # 0.5 10^3/uL (0.8-4.8); Lymphocytes % 5.4 %; Mean Corpuscular HGB Conc 31.8 g/dL (30-55); Mean Corpuscular Hemoglobin 27.5 pg (27-33); Mean Corpuscular Volume 86.5 fl (85-98); Mean Platelet Volume 11.5 fL (7.4-10.4); Monocytes # 0.2 10^3/uL (0.2-0.9); Monocytes % 2.1 %; Neutrophils # 9.16 10^3/uL (1.8-7.7); Nucleated Red Blood Cells % 0 %; Platelet Count 210 10^3/cmm (157-399); Red Blood Count 4.58 10^6/uL (3.85-5.65); Red Cell Distribution Width 12.3 % (12.1-15.1); White Blood Count 9.96 10^3/uL (3.29-11.43)
[2023-12-25 06:00] VITALS: PULSE 65
[2023-12-25 06:07] LABS: Anion Gap 14.2 (5-19); Blood Urea Nitrogen 21 mg/dL (8-23); Calcium 8.7 mg/dL (8.5-10.5); Carbon Dioxide 28 mmol/L (22-29); Chloride 101 mmol/L (98-107); Creatinine Clr Calc Pharmacy 40.8781; Glucose 344 mg/dL (65-115); Osmolality Calculated 303 mOsm/kg (285-295); Potassium 5.2 mmol/L (3.5-5.1); Sodium 138 mmol/L (136-145)
[2023-12-25 06:31] LABS: Glucose Point of Care 314 mg/dL (70-110)
--- NOTE | 2023-12-25 07:41 | P.PN_ITS ---
Subjective 2 Subjective: Patient remaining chest pain free. Vitals/I&O/Wt Last Vital Signs Temp 98.0 F 12/25/23 04:00 Pulse 65 12/25/23 06:00 Resp 20 H 12/25/23 04:00 BP 150/72 12/25/23 04:00 Pulse Ox 92 12/25/23 04:00 O2 Del Method Room Air 12/25/23 04:00 O2 Flow Rate 1.5 12/24/23 03:09 12/24/23 12/25/23 12/25/23 22:59 06:59 14:59 Intake Total 692.683 / 1380.516 449.317 / 1829.833 Output Total 900 / 900 400 / 1300 Balance -207.317 / 480.516 49.317 / 529.833 Weight last 48 hrs Weight 180 lb Weight 173 lb Physical Exam 2 Narrative: GENERAL: Patient is alert, awake and oriented x3. [] NECK: No jugular vein distension. [] HEENT: No cyanosis. No icterus. No pallor. [] HEART: Regular S1 and S2. No murmur, rub or gallop. [] LUNGS: Clear to auscultate bilaterally. [] CENTRAL NERVOUS SYSTEM: Grossly nonfocal. [] EXTREMITIES: Lower extremities with 1+ edema bilaterally. Urinary Catheter Management: Huff: Cath Placed During This Visit: yes Reason for Continuing Indwelling Catheter: Accurate Measurement of Urinary Output in Critically Ill Patients Urinary Catheter Date of Insertion: 12/21/23 Urinary Catheter Time of Insertion: 19:00 Data 12/25/23 05:38 12/25/23 05:38 A&P Assessment and plan (1) Non-ST elevation [place] (NSTEMI): (2) CAD (coronary artery disease): (3) Essential (primary) hypertension: (4) Type 2 diabetes mellitus without complications: Plan Patient has remained chest pain-free. After detailed discussion of risks and benefits of medical therapy versus high risk procedure, shared decision made to continue medical therapy. Start ranexa. Resume isosorbide. Continue dual antiplatelet therapy with aspirin and plavix. Patient has completed anticoagulation for 48 hours. Thank you for involving us with care of this patient. Patient is stable to be discharged from cardiology standpoint. ER warning signs and symptoms discussed. Please call with questions. Attestations 2 Medical Necessity Statement*: Care expected to cross 2 midnights. Coding Level of Care Code Acute Code for Chg Fwd Diagnoses Non-ST elevation [place] (NSTEMI) I21.4 CAD (coronary artery disease) I25.10 Essential (primary) hypertension I10 Type 2 diabetes mellitus without complications E11.9
[2023-12-25 07:45] VITALS: BP 140/63; PULSE 68; TEMP 36.7; O2SAT 93
[2023-12-25 08:00] VITALS: BP 140/63; PULSE 68; TEMP 36.7
[2023-12-25] MEDS: aspirin 81 mg EC Tablet PO (09:01)
[2023-12-25] MEDS: predniSONE 20 mg Tablet 40 MG PO (09:01)
[2023-12-25] MEDS: insulin lispro 100 unit/1 mL SUBCUT (09:01)
[2023-12-25] MEDS: isosorbide mononitrate ER 30 mg Tablet PO (10:07)
--- NOTE | 2023-12-25 10:39 | PM.DCS ---
Discharge Providers Date of Admission: 12/21/23 16:49 Date of Discharge: December 25, 2023 Attending Provider at Admission: Willem Steward MD Attending Provider at Discharge: Willem Steward MD Primary Care Provider: Antonio Delgado MD Diagnoses at Discharge Discharge Diagnosis (1) Non-ST elevation NH (NSTEMI): Status: Acute (2) CAD (coronary artery disease): Status: Acute (3) Essential (primary) hypertension: Status: Acute (4) Type 2 diabetes mellitus without complications: Status: Acute Reason for Visit Reason for Visit: cp Hospital Course Hospital Course Sally Henderson is a 83 year old female with a past medical history of CAD, insulin-dependent type 2 diabetes mellitus, who presents [facility] due to left shoulder pain, with complaints of shortness of breath. Currently patient's chest pain-free, no shoulder pain, does report lower extremity Stella and shortness of breath and wheezing. She tells me that she never gets chest pain, today she noticed severe pain in her left shoulder left arm, with feeling shortness of breath, similar to when she had her prior coronary angiogram does report increased lower extremity edema, increased shortness of breath, no smoking history, no fevers, no cough, NSTEMI -Atypical cardiac symptoms ? 120-minute troponin 439.6, 6-hour 1407 -Initial EKG showed ST depressions in lateral leads ? Results were reviewed with cardiology -Status post,Coronary angiogram showed subtotal occlusion of heavily calcified ostial to mid left circumflex artery. Plan on medical management after discussion of risk and benefits with the patient -Patient was medically managed on aspirin, statin, Plavix, heparin drip for 72 hours -Monitored as inpatient for recurrent chest pain, remains asymptomatic -Will be discharged on aspirin, statin, Plavix, Imdur, Ranexa -Monitor for recurrent chest pain - Physical Exam Const: COMMON NORMALS: no acute distress and patient oriented x3 Resp: COMMON NORMALS: normal respiratory effort, No retractions, No use of accessory muscles and clear to auscultation bilaterally AUSCULTATION: clear to auscultation bilaterally Cardio: COMMON NORMALS: regular rate, regular rhythm, S1 normal heart sound present and S2 normal heart sound present RATE: regular rate RHYTHM: regular rhythm HEART SOUNDS: S1 normal heart sound present and S2 normal heart sound present GI: COMMON NORMALS: Normal to inspection, nondistended, normoactive bowel sounds present and non-tender Extremity: COMMON NORMALS: no pedal edema Neuro: COMMON NORMALS: patient oriented x3 Psych: COMMON NORMALS: mental status grossly normal Urinary Catheter Management: Huff: Cath Placed During This Visit: yes Reason for Continuing Indwelling Catheter: Accurate Measurement of Urinary Output in Critically Ill Patients Urinary Catheter Date of Insertion: 12/21/23 Urinary Catheter Time of Insertion: 19:00 Discharge Data Studies Completed and Pending Completed Studies During Hospitalization Category Date Time Status XR chest 1V portable [id number] Stat Exams 12/21/23 13:35 Completed CV. echo complete* [id number] Stat Ultrasound 12/21/23 16:34 Completed Pending at discharge Category Date Time Status [employer] request for service Routine Exams 12/22/23 09:13 Taken Basic Metabolic Panel AM LABS Lab 12/26/23 04:00 Ordered Basic Metabolic Panel AM LABS Lab 12/27/23 04:00 Ordered Complete Blood Count w/Auto AM LABS Lab 12/26/23 04:00 Ordered Complete Blood Count w/Auto AM LABS Lab 12/27/23 04:00 Ordered PTT [Partial Thromboplastin Time] Routine Lab 12/25/23 12:30 Ordered Sputum Culture and Gram Stain Stat Lab 12/21/23 16:35 Uncollected Radiology Impressions Chest X-Ray 12/21/23 13:35 IMPRESSION: Cardiomegaly without acute abnormality Laboratory Results WBC 9.96 10^3/uL (3.29-11.43) 12/25/23 05:38 RBC 4.58 10^6/uL (3.85-5.65) 12/25/23 05:38 Hgb 12.60 g/dL (11.27-16.99) 12/25/23 05:38 Hct 39.6 % (36-47) 12/25/23 05:38 MCV 86.5 fl (85-98) 12/25/23 05:38 MCH 27.5 pg (27-33) 12/25/23 05:38 MCHC 31.8 g/dL (30-55) 12/25/23 05:38 RDW 12.3 % (12.1-15.1) 12/25/23 05:38 Plt Count 210 10^3/cmm (157-399) 12/25/23 05:38 MPV 11.5 fL (7.4-10.4) H 12/25/23 05:38 Neut % (Auto) 92.0 % 12/25/23 05:38 Lymph % (Auto) 5.4 % 12/25/23 05:38 [place] % (Auto) 2.1 % 12/25/23 05:38 Eos % (Auto) 0.0 % 12/25/23 05:38 Baso % (Auto) 0.1 % 12/25/23 05:38 Neut # (Auto) 9.16 10^3/uL (1.8-7.7) H 12/25/23 05:38 Lymph # (Auto) 0.5 10^3/uL (0.8-4.8) L 12/25/23 05:38 [place] # (Auto) 0.2 10^3/uL (0.2-0.9) 12/25/23 05:38 Eos # (Auto) 0.0 10^3/uL (0.0-0.8) 12/25/23 05:38 Baso # (Auto) 0.0 10^3/uL (0.0-0.1) 12/25/23 05:38 Nucleated RBC % (auto) 0 % 12/25/23 05:38 Nucleated RBCs # 0.0 /100WBC 12/25/23 05:38 APTT 115.0 SECONDS (23.9-36.7) H D 12/25/23 05:38 Sodium 138 mmol/L (136-145) 12/25/23 05:38 Potassium 5.2 mmol/L (3.5-5.1) H 12/25/23 05:38 Chloride 101 mmol/L (98-107) 12/25/23 05:38 Carbon Dioxide 28 mmol/L (22-29) 12/25/23 05:38 Anion Gap 14.2 (5-19) 12/25/23 05:38 BUN 21 mg/dL (8-23) 12/25/23 05:38 Creatinine 1.0 mg/dL (0.5-0.9) H 12/25/23 05:38 GFR Calculation Not Reportable 12/25/23 05:38 Glucose 344 mg/dL (65-115) H 12/25/23 05:38 POC Glucose 314 mg/dL (70-110) H 12/25/23 06:23 Calculated Osmolality 303 mOsm/kg (285-295) H 12/25/23 05:38 Lactic Acid 1.4 mmol/L (0.5-2.2) 12/21/23 16:47 Calcium 8.7 mg/dL (8.5-10.5) 12/25/23 05:38 Total Bilirubin 0.2 mg/dL (0.15-1.2) 12/21/23 13:52 AST 21 U/L (0-32) 12/21/23 13:52 ALT 11 U/L (0-33) 12/21/23 13:52 Alkaline Phosphatase 124 U/L (35-105) H 12/21/23 13:52 Troponin T Baseline 51 ng/L (0-10) H 12/21/23 13:52 Troponin T 120 Minute 439.6 ng/L (0-10) H 12/21/23 16:05 Delta Troponin T 388.6 ABS# (0-10) H* 12/21/23 16:05 Troponin T Hi Sens 6Hr 1407 ng/L (0-10) H 12/21/23 19:52 Troponin T Hi Sens 6Hr Delta 1356 ng/L (0-12) H* 12/21/23 19:52 C-Reactive Protein 3.8 mg/L (0.0-4.9) 12/21/23 16:47 NT-Pro-B Natriuret Pep 2559 pg/mL (0-450) H 12/21/23 16:47 Total Protein 6.2 g/dL (6.6-8.7) L 12/21/23 13:52 Albumin 3.5 g/dL (3.5-5.2) 12/21/23 13:52 Globulin 2.7 g/dL (1.3-4.6) 12/21/23 13:52 Triglycerides 154 mg/dL (0-150) H 12/21/23 16:47 Cholesterol 136 mg/dL (0-200) 12/21/23 16:47 LDL Cholesterol, Calc 52 mg/dL (50-129) 12/21/23 16:47 HDL Cholesterol 53 mg/dL (60-100) L 12/21/23 16:47 LDL/HDL Ratio 0.98 RATIO (0.00-3.22) 12/21/23 16:47 Cholesterol/HDL Ratio 2.57 mg/dL (0.0-4.40) 12/21/23 16:47 Procalcitonin 0.03 ng/mL (0-0.5) 12/21/23 16:47 TSH 1.56 uIU/mL (0.27-4.20) 12/21/23 16:47 Urine Color Yellow (Yellow) 12/21/23 19:01 Urine Appearance Clear (CLEAR) 12/21/23 19:01 Urine pH 6.0 (5-7) 12/21/23 19:01 Ur Specific [place] 1.014 (1.005-1.030) 12/21/23 19:01 Urine Protein Negative (Negative) 12/21/23 19:01 Urine Glucose (UA) 2+ (Normal) H 12/21/23 19:01 Urine Ketones Negative (Negative) 12/21/23 19:01 Urine Blood Negative (Negative) 12/21/23 19:01 Urine Nitrate Negative (Negative) 12/21/23 19:01 Urine Bilirubin Negative (Negative) 12/21/23 19:01 Urine Urobilinogen 0.2 mg/dL (Negative) 12/21/23 19:01 Ur Leukocyte Esterase Negative (Negative) 12/21/23 19:01 Urine RBC 0-2 /hpf (0-2) 12/21/23 19:01 Urine WBC 0-5 /hpf (0-5) 12/21/23 19:01 Ur Squamous Epith Cells 0-5 /hpf (0-5) 12/21/23 19:01 Amorphous Sediment Not Reportable 12/21/23 19:01 Urine Bacteria None seen /hpf (NONE) 12/21/23 19:01 Hyaline Casts 1.21 /lpf 12/21/23 19:01 Adenovirus (PCR) Not detected (NOT DETECT) 12/21/23 20:45 C. pneumoniae DNA (PCR) Not detected (NOT DETECT) 12/21/23 20:45 Coronavirus 229E (PCR) Not detected (NOT DETECT) 12/21/23 20:45 Human Metapneumovir PCR Not detected (NOT DETECT) 12/21/23 20:45 Influenza A (H1) PCR Not detected (NOT DETECT) 12/21/23 20:45 Influ A (H1/09) PCR Not detected (NOT DETECT) 12/21/23 20:45 Influenza A (H3) PCR Not detected (NOT DETECT) 12/21/23 20:45 Influenza Type A (PCR) Not detected (NOT DETECT) 12/21/23 20:45 Influenza Type B (PCR) Not detected (NOT DETECT) 12/21/23 20:45 M. pneumoniae (PCR) Not detected (NOT DETECT) 12/21/23 20:45 Parainfluenza 1 (PCR) Not detected (NOT DETECT) 12/21/23 20:45 Parainfluenza 2 (PCR) Not detected (NOT DETECT) 12/21/23 20:45 Parainfluenza 3 (PCR) Not detected (NOT DETECT) 12/21/23 20:45 Parainfluenza 4 (PCR) Not detected (NOT DETECT) 12/21/23 20:45 RSV Type A (PCR) Not detected (NOT DETECT) 12/21/23 20:45 RSV Type B (PCR) Not detected (NOT DETECT) 12/21/23 20:45 Entero/Rhino (PCR) Not detected (NOT DETECT) 12/21/23 20:45 SARS-CoV-2 (PCR) Not detected (NOT DETECT) 12/21/23 20:45 Vitals Last Vital Signs Temp 98.0 F 12/25/23 08:00 Pulse 68 12/25/23 08:00 Resp 20 H 12/25/23 04:00 BP 140/63 12/25/23 08:00 Pulse Ox 93 12/25/23 07:45 O2 Del Method Room Air 12/25/23 09:17 O2 Flow Rate 1.5 12/24/23 03:09 Discharge Plan Discharge Patient Disposition: Home Condition: Stable Prescriptions: New ranolazine 500 mg Tablet Extended Release 12 Hr 500 mg PO BID 30 Days Qty: 60 0RF prednisone 20 mg Tablet 40 mg PO DAILY 3 Days Qty: 6 0RF Continued gabapentin 600 mg tablet 600 mg PO BEDTIME multivitamin Tablet 1 tab PO BEDTIME ascorbic acid (vitamin C) [Vitamin C] 1,000 mg Tablet 1,000 mg PO DAILY tramadol 50 mg tablet 100 mg PO BEDTIME calcium carbonate 500 mg calcium (1,250 mg) Tablet 500 mg PO DAILY insulin degludec [Tresiba FlexTouch U-200] 200 unit/mL (3 mL) insulin pen 30 unit SUBCUT DAILY@17 isosorbide mononitrate 30 mg tablet extended release 24 hr 30 mg PO DAILY Qty: 30 0RF clopidogrel 75 mg tablet 75 mg PO BEDTIME 30 Days Qty: 30 0RF atorvastatin 40 mg tablet 40 mg PO BEDTIME 30 Days Qty: 30 0RF aspirin 81 mg Tablet,Delayed Release (Dr/Ec) 81 mg PO DAILY 30 Days Qty: 30 0RF Discontinued losartan 25 mg tablet 25 mg PO BEDTIME Discharge Orders: Discharge Order (Routine); Ordered 12/25/23 Ordered By: Willem Steward Referrals: Boaz Jaramillo M.D [Physician] - 1 week Antonio Delgado MD [Primary Care Provider] - 01/01/24 11:15 am Discharge Diet: Cardiac Discharge Activity: Resume usual activity Patient Instructions: Prednisone (By mouth) (Prednisone Intensol, Prednicot, Deltasone, Elvia), Ranolazine (By mouth) (Ranexa, Aspruzyo), Coronary Artery Disease (DC), Hypertension (DC), Opioid Safety, Post Angiogram Home Care Instructions Activity Restrictions/Additional Instructions: - If you develop recurrent chest pain please go to the emergency room Discharge Attestations Time Spent in Discharge Care*: greater than 30 min Status at Discharge: Cognitive status at discharge: cognitively intact, Behavioral status at discharge: cooperative, Quality Metrics Clinical Quality Measures [ No reported AMI, CVA or VTE this stay] Coding Level of Care Code 90314 Total time (in minutes) for Discharge: 45 Diagnoses Non-ST elevation NH (NSTEMI) I21.4 CAD (coronary artery disease) I25.10 Essential (primary) hypertension I10 Type 2 diabetes mellitus without complications E11.9
[2023-12-25 12:15] VITALS: BP 140/63; PULSE 68; TEMP 36.7
--- NOTE | 2023-12-25 12:16 | PC.NURSE ---
Discharge Note Patient discharged to home via POV accompanied by family. Discharge instructions reviewed with patient and/or patient relations representative. Mobile pharmacy medications and/or prescriptions provided. Belongings/home medications returned.
== END 2023-12-25 12:16 | disposition home or self-care (01) | DRG 282 ==
LOC: ER 16:48 → CSU 17:46
PROVIDERS: Internal Medicine; Student in an Organized Health Care Education/Training Program; Admitting Provider Family Medicine; Emergency Provider Family Medicine; PCP Family Medicine; Visit Provider Family Medicine
PROC: B2111ZZ Fluoroscopy of Multiple Coronary Arteries using Low Osmolar Contrast (ICD-10-PCS; principal; 2023-12-22 10:00)
DX: I21.4 Non-ST elevation (NSTEMI) myocardial infarction (principal); I25.110 Atherosclerotic heart disease of native coronary artery with unstable angina pectoris; E11.9 Type 2 diabetes mellitus without complications; E78.5 Hyperlipidemia, unspecified; I10 Essential (primary) hypertension; E87.70 Fluid overload, unspecified; Z79.02 Long term (current) use of antithrombotics/antiplatelets; Z79.4 Long term (current) use of insulin; Z79.82 Long term (current) use of aspirin; Z95.1 Presence of aortocoronary bypass graft; Z11.52 Encounter for screening for COVID-19; I25.2 Old myocardial infarction
CPT/HCPCS: 36415; 36416; 51702; 71045; 80048; 80053; 80061; 81003; 81015; 82962; 83605; 83880; 84145; 84443; 84484; 85025; 85347; 85730; 86140; 87486; 87581; 87633; 93005; 93306; 93455; 94664; 96372; 96374; 96375; 96376; 99152; 99153; 99285; C1760; C1769; C1887; C1894; G0269; J1644; J1815; J1940; J2250; J2405; J2470; J3010; J3490; J7030; J7512; Q9967

== ENCOUNTER 2023-12-25 20:29 | Observation (INO) | payer MEDICARE, SELFPAY ==
[2023-12-25 20:34] VITALS: BP 143/83; PULSE 75; RESP 24; O2SAT 96; BMI 35.7
--- NOTE | 2023-12-25 20:40 | XRR_ITS ---
PROCEDURE INFORMATION: Exam: XR Chest Exam date and time: 12/25/2023 8:47 PM Age: 83 years old Clinical indication: Shortness of breath; Prior surgery; Surgery date: 6+ months; Surgery type: Open heart TECHNIQUE: Imaging protocol: Radiologic exam of the chest. Views: 1 view. COMPARISON: CR XR chest 1V portable [id number] 12/21/2023 2:04 PM FINDINGS: Lungs: Mild left basilar atelectasis. No focal consolidations. Emphysema. Pleural spaces: Unremarkable. No pleural effusion. No pneumothorax. Heart/Mediastinum: Cardiomegaly. Bones/joints: Median sternotomy wires. Chronic left rib deformities. Degenerative changes of the bilateral shoulders. XR/XR chest 1V portable [id number] IMPRESSION: Cardiomegaly. Mild left basilar atelectasis.
--- NOTE | 2023-12-25 20:42 | ECG_ITS ---
[facility] Test Date: 2023-12-25 Pat Name: Sally Henderson Department: Room: Gender: Female [employer] Worker: : 1940 Requested By: Linnette Benavidez Order Number: [id number] Leonora MD: Boaz Jaramillo M.D. Measurements Intervals [place] Rate: 76 P: 29 [place]: 153 QRS: -25 QRSD: 98 T: 152 QT: 408 QTc: 461 Interpretive Statements SINUS RHYTHM WITH OCCASIONAL VENTRICULAR PREMATURE COMPLEXES BORDERLINE LEFT AXIS DEVIATION [QRS AXIS < -20] INCOMPLETE RIGHT BUNDLE BRANCH BLOCK [90+ ms QRS DURATION, TERMINAL R IN V1/V2, 40+ ms S IN I/aVL/V4/V5/V6] ST DEVIATION AND MODERATE T-WAVE ABNORMALITY, CONSIDER LATERAL ISCHEMIA [-0.1+ mV T-WAVE IN I/aVL/V5/V6] Compared to ECG 12/21/2023 19:41:22 Ventricular premature complex(es) now present Incomplete right bundle-branch block now present T-wave abnormality now present Possible ischemia now present Left ventricular hypertrophy no longer present ST (T wave) deviation no longer present Electronically Signed On 12-26-2023 7:41:00 CDT by Boaz Jaramillo M.D. [id number]
--- NOTE | 2023-12-25 20:43 | ED_ITS ---
HPI - SOB/Dyspnea 2 General: Chief Complaint: Shortness of Breath/Dyspnea Stated Complaint: SOB Time Seen by Provider: 12/25/23 20:30 History of Present Illness: HPI Narrative: 83-year-old female with a history of cor onary artery disease, hyperlipidemia, chronic hypoxemic respiratory failure on 2 L nasal cannula at all time, neuropathy, diabetes, obesity who presents emergency room by ambulance from home after having an episode of shortness of breath. She was discharged from the hospital today. She had been treated for a non-STEMI. Cath that showed heavily calcified ostial to mid left circumflex artery and this is being managed medically. She was at home and was doing some chores around the house and became very short of breath. This compounded her anxiety. Her son saw her breathing hard and called an ambulance. EMS reports that she was still tachypneic when they arrived. However about correction through the ambulance ride she had calm down and felt better spontaneously. She had turned up her oxygen from 2 to 5 L but this was for symptoms, not for hypoxemia. No chest pain. No fevers. No cough. Hospital course from discharge summary from earlier today Sally Henderson is a 83 year old female with a past medical history of CAD, insulin-dependent type 2 diabetes mellitus, who presents [facility] due to left shoulder pain, with complaints of shortness of breath. Currently patient's chest pain-free, no shoulder pain, does report lower extremity Stella and shortness of breath and wheezing. She tells me that she never gets chest pain, today she noticed severe pain in her left shoulder left arm, with feeling shortness of breath, similar to when she had her prior coronary angiogram does report increased lower extremity edema, increased shortness of breath, no smoking history, no fevers, no cough, NSTEMI -Atypical cardiac symptoms ? 120-minute troponin 439.6, 6-hour 1407 -Initial EKG showed ST depressions in la teral leads ? Results were reviewed with cardiology -Status post,Coronary angiogram showed s ubtotal occlusion of heavily calcified ostial to mid left circumflex artery. Plan on medical management after discussion of risk and benefits with the patient -Patient was medically managed on aspiri n, statin, Plavix, heparin drip for 72 hours -Monitored as inpatient for recurrent ch est pain, remains asymptomatic -Will be discharged on aspirin, statin, Plavix, Imdur, Ranexa -Monitor for recurrent chest pain Related Data Home Medications Medication Instructions Recorded Confirmed gabapentin 600 mg tablet 600 mg PO BEDTIME 05/28/19 12/21/23 multivitamin 1 tab PO BEDTIME 09/19/20 12/21/23 ascorbic acid (vitamin C) 1,000 mg 1,000 mg PO DAILY 04/14/22 12/21/23 tablet (Vitamin C) calcium carbonate 500 mg PO DAILY 08/29/23 12/21/23 insulin degludec 200 unit/mL (3 30 unit SUBCUT DAILY@17 08/29/23 12/21/23 mL) subcutaneous pen (Tresiba FlexTouch U-200 insulin) tramadol 50 mg tablet 100 mg PO BEDTIME 08/29/23 12/21/23 Previous Rx's Medication Instructions Recorded isosorbide mononitrate 30 mg 30 mg PO DAILY #30 tabs 09/02/23 tablet,extended release 24 hr aspirin 81 mg tablet,delayed 81 mg PO DAILY 30 days #30 tabs 12/25/23 release atorvastatin 40 mg tablet 40 mg PO BEDTIME 30 days #30 tabs 12/25/23 clopidogrel 75 mg tablet 75 mg PO BEDTIME 30 days #30 tabs 12/25/23 prednisone 20 mg tablet 40 mg (2 x 20 mg) PO DAILY 3 days 12/25/23 #6 tabs ranolazine 500 mg tablet,extended 500 mg PO BID 30 days #60 tabs 12/25/23 release,12 hr Allergies Allergy/AdvReac Type Severity Reaction Status Date / Time No Known Allergies Allergy Verified 12/25/23 20:41 Review of Systems 2 Narrative: Constitutional symptoms: Negative except as documented in HPI. Skin symptoms: Negative except as documented in HPI. Eye symptoms: Negative except as documented in HPI. ENMT symptoms: Negative except as documented in HPI. Respiratory symptoms: Negative except as documented in HPI. Cardiovascular symptoms: Negative except as documented in HPI. Gastrointestinal symptoms: Negative except as documented in HPI. Genitourinary symptoms: Negative except as documented in HPI. Musculoskeletal symptoms: Negative except as documented in HPI. Neurologic symptoms: Negative except as documented in HPI. Psychiatric symptoms: Negative except as documented in HPI. Endocrine symptoms: Negative except as documented in HPI. PFSH ED 2 PFSH: Medical History Contrast-induced nephropathy Dyslipidemia Type 2 diabetes mellitus without complications CAD (coronary artery disease) Acute OR Essential (primary) hypertension Surgical History Hx of hysterectomy Hx of CABG Social History Smoking and tobacco/nicotine status: never used tobacco/nicotine Alcohol intake: never Substance/Drug Use: never Physical Exam 2 Narrative: EXAM NARRATIVE: General: Alert, no acute distress. Skin: Warm, dry. Head: Normocephalic, atraumatic. Neck: Supple, trachea midline. Eye: Extraocular movements are intact. Ears, nose, mouth and throat: mucosa moist. Cardiovascular: Regular, Normal peripheral perfusion. Patient does have some lower extremity swelling Respiratory: Lungs are clear to auscultation, respirations are non-labored, breath sounds are equal, Symmetrical chest wall expansion. Gastrointestinal: Soft, Nontender, Non distended Musculoskeletal: Normal ROM, no deformity. Neurological: Alert and oriented, No focal neurological deficit observed. Psychiatric: Cooperative, appropriate mood & affect. Course 2 Vital Signs: Vital signs: Vital Signs Pulse Rate 67 12/25/23 21:57 Respiratory Rate 18 12/25/23 21:57 Blood Pressure 126/57 12/25/23 21:57 Pulse Oximetry 95 12/25/23 21:57 Oxygen Delivery Me thod Nasal Cannula 12/25/23 21:57 Oxygen Flow Rate 2 12/25/23 21:57 MDM - SOB/Dyspnea Medical Decision Making Differential diagnosis for patient with shortness of breath includes but is not limited to and based on the above HPI, review of systems and physical exam: Pneumonia. Bronchitis. Asthma or COPD with acute exacerbation. Acute coronary syndrome / OR. Pulmonary embolism. Anxiety. Congestive heart failure. Viral infections including influenza and Covid-19. Atrial fibrillation. Anxiety. Pleural effusion. Pneumothorax. Workup: Lab work, chest X-ray and EKG ordered to evaluate, rule in and rule out above pathologies EKG: Time 2041. Rate 76. Normal sinus rhythm, nonspecific ST depressions that are unchanged from EKG previously, PVCs, incomplete right bundle branch block. This was reviewed and interpreted by myself the ER physician at 2042. Repeat EKG: Time 2041. Rate 76. Normal sinus rhythm, nonspecific ST depressions that are unchanged from EKG previously, PVCs, incomplete right bundle branch block. This was reviewed and interpreted by myself the ER physician at Lab Review: Laboratory results were reviewed and interpreted by myself the emergency room physician. Mild leukocytosis with a white count of 15. Hemoglobin is stable 11.9. BUN and creatinine are 31 and 1. Blood glucose is elevated at 477. 2-hour troponin was up from initial from 5 70-6 55. proBNP is elevated somewhat as well. Chest x-ray: Cardiomegaly with some mild atelectasis. No acute process. No infiltrate. No pneumothorax. This was reviewed and interpreted by myself the ER physician. I had some concern for possibly a left effusion and so I ordered a CT without contrast to further elucidate this. CT of the chest without contrast: Bibasilar atelectasis, right greater than left. No focal consolidations or effusions. This was reviewed and interpreted by myself the emergency room physician. I also reviewed the radiology report. I reviewed the patient's medical record. Reexamination: Patient remained stable. No increased work of breathing. No altered mental status. No focal motor deficits. Consultation: I spoke with Dr. Morse who is on-call for the hospitalist service. He requests a consult to wall crane operator and agrees to admission to observation. Consultation: I spoke with Dr. Jaramillo. He recommends n.p.o. after midnight. Aspirin and a single dose of therapeutic Lovenox. He will see the patient tomorrow in consultation. Assessment and plan: Non-STEMI Coronary artery disease Hyperglycemia Diabetes ?Subcu Lovenox. 325 chewable aspirin. 12 units IV insulin for hyperglycemia. -I discussed the patient with the hospitalist on-call who is admitting the patient. - Discussed findings and plan with patient. Answered any questions. - All laboratory values were reviewed and interpreted personally by myself, the ER physician - All imaging was reviewed and interpreted personally by myself, the ER physician. - Evaluation and treatment of this problem were appropriate in the emergency setting Lab Data 12/25/23 20:48 12/25/23 20:48 Labs/Radiology: Radiology Impressions Chest X-Ray 12/25/23 20:40 IMPRESSION: Cardiomegaly. Mild left basilar atelectasis. Chest CT 12/25/23 20:56 IMPRESSION: Respiratory motion artifact. Bibasilar atelectasis, [id number]-weoslzh-qxwe-left. No focal consolidations or pleural effusion. Cardiomegaly. Laboratory Results WBC 15.71 10^3/uL (3.29-11.43) H 12/25/23 20:48 RBC 4.31 10^6/uL (3.85-5.65) 12/25/23 20:48 Hgb 11.90 g/dL (11.27-16.99) 12/25/23 20:48 Hct 36.5 % (36-47) 12/25/23 20:48 MCV 84.7 fl (85-98) L 12/25/23 20:48 MCH 27.6 pg (27-33) 12/25/23 20:48 MCHC 32.6 g/dL (30-55) 12/25/23 20:48 RDW 12.4 % (12.1-15.1) 12/25/23 20:48 Plt Count 245 10^3/cmm (157-399) 12/25/23 20:48 MPV 11.6 fL (7.4-10.4) H 12/25/23 20:48 Neut % (Auto) 94.4 % 12/25/23 20:48 Lymph % (Auto) 2.4 % 12/25/23 20:48 Refugio % (Auto) 2.5 % 12/25/23 20:48 Eos % (Auto) 0.0 % 12/25/23 20:48 Baso % (Auto) 0.1 % 12/25/23 20:48 Neut # (Auto) 14.82 10^3/uL (1.8-7.7) H 12/25/23 20:48 Lymph # (Auto) 0.4 10^3/uL (0.8-4.8) L 12/25/23 20:48 [place]ugio # (Auto) 0.4 10^3/uL (0.2-0.9) 12/25/23 20:48 Eos # (Auto) 0.0 10^3/uL (0.0-0.8) 12/25/23 20:48 Baso # (Auto) 0.0 10^3/uL (0.0-0.1) 12/25/23 20:48 Nucleated RBC % (auto) 0 % 12/25/23 20:48 Nucleated RBCs # 0.0 /100WBC 12/25/23 20:48 Sodium 135 mmol/L (136-145) L 12/25/23 20:48 Potassium 4.9 mmol/L (3.5-5.1) 12/25/23 20:48 Chloride 99 mmol/L (98-107) 12/25/23 20:48 Carbon Dioxide 25 mmol/L (22-29) 12/25/23 20:48 Anion Gap 15.9 (5-19) 12/25/23 20:48 BUN 31 mg/dL (8-23) H 12/25/23 20:48 Creatinine 1.0 mg/dL (0.5-0.9) H 12/25/23 20:48 GFR Calculation Not Reportable 12/25/23 20:48 Glucose 477 mg/dL (65-115) H 12/25/23 20:48 Calculated Osmolality 308 mOsm/kg (285-295) H 12/25/23 20:48 Calcium 8.6 mg/dL (8.5-10.5) 12/25/23 20:48 Total Bilirubin 0.3 mg/dL (0.15-1.2) 12/25/23 20:48 AST 20 U/L (0-32) 12/25/23 20:48 ALT 15 U/L (0-33) 12/25/23 20:48 Alkaline Phosphatase 115 U/L (35-105) H 12/25/23 20:48 Troponin T Baseline 570 ng/L (0-10) H* 12/25/23 20:48 Troponin T 120 Minute 654.4 ng/L (0-10) H 12/25/23 22:21 Delta Troponin T 84.4 ABS# (0-10) H* 12/25/23 22:21 NT-Pro-B Natriuret Pep 6260 pg/mL (0-450) H 12/25/23 20:48 Total Protein 6.6 g/dL (6.6-8.7) 12/25/23 20:48 Albumin 3.6 g/dL (3.5-5.2) 12/25/23 20:48 Globulin 3.0 g/dL (1.3-4.6) 12/25/23 20:48 All radiology interpretation(s) finalized by discharge Discharge Plan Discharge Patient Disposition: Admitted As Inpatient Clinical Impression: Non-ST elevation OR (NSTEMI), CAD (coronary artery disease), Type 2 diabetes mellitus without complications, Hyperglycemia Condition: Stable Coding Level of Care Code 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
[2023-12-25 20:56] VITALS: BP 142/91; PULSE 78; RESP 20; O2SAT 94
--- NOTE | 2023-12-25 20:56 | CTR_ITS ---
PROCEDURE INFORMATION: Exam: CT Chest Without Contrast; Diagnostic Exam date and time: 12/25/2023 9:02 PM Age: 83 years old Clinical indication: Other: Abnormal cxr; Prior surgery; Surgery date: 6+ months; Surgery type: Stents; Additional info: Abnormal chest xray TECHNIQUE: Imaging protocol: Diagnostic computed tomography of the chest without contrast. Radiation optimization: All CT scans at this facility use at least one of these dose optimization techniques: automated exposure control; mA and/or kV adjustment per patient size (includes targeted exams where dose is matched to clinical indication); or iterative reconstruction. COMPARISON: CR (CHEST, ) 12/25/2023 8:47 PM RADIATION DOSE METRICS: Total DLP (mGy-cm): 569 FINDINGS: Lungs: Bibasilar atelectasis, [id number]-[id number]-kjiu-left. No focal consolidations. Pleural spaces: Unremarkable. No pneumothorax. No pleural effusion. Heart: Cardiomegaly. Coronary arteries: Coronary artery calcifications. Lymph nodes: Unremarkable. No enlarged lymph nodes. Vasculature: Atherosclerotic calcifications. No aortic aneurysm. Bones/joints: Median sternotomy wires. Degenerative changes of the bilateral shoulders. Moderate to severe spondylosis. Soft tissues: Unremarkable. CT/CT chest con [id number] IMPRESSION: Respiratory motion artifact. Bibasilar atelectasis, [id number]-[id number]-left. No focal consolidations or pleural effusion. Cardiomegaly.
[2023-12-25 20:58] LABS: Basophils % 0.1 %; Hematocrit 36.5 % (36-47); Lymphocytes # 0.4 10^3/uL (0.8-4.8); Lymphocytes % 2.4 %; Mean Corpuscular HGB Conc 32.6 g/dL (30-55); Mean Corpuscular Hemoglobin 27.6 pg (27-33); Mean Corpuscular Volume 84.7 fl (85-98); Mean Platelet Volume 11.6 fL (7.4-10.4); Monocytes # 0.4 10^3/uL (0.2-0.9); Monocytes % 2.5 %; Neutrophils # 14.82 10^3/uL (1.8-7.7); Neutrophils % 94.4 %; Nucleated Red Blood Cells % 0 %; Platelet Count 245 10^3/cmm (157-399); Red Blood Count 4.31 10^6/uL (3.85-5.65); Red Cell Distribution Width 12.4 % (12.1-15.1); White Blood Count 15.71 10^3/uL (3.29-11.43)
[2023-12-25 21:21] LABS: Troponin(5th) Baseline 570 ng/L (0-10)
[2023-12-25 21:25] LABS: Alanine Aminotransferase 15 U/L (0-33); Albumin Level 3.6 g/dL (3.5-5.2); Alkaline Phosphatase 115 U/L (35-105); Aspartate Amino Transferase 20 U/L (0-32); Blood Urea Nitrogen 31 mg/dL (8-23); Calcium 8.6 mg/dL (8.5-10.5); Carbon Dioxide 25 mmol/L (22-29); Chloride 99 mmol/L (98-107); Creatinine Clr Calc Pharmacy 42.1419; Glucose 477 mg/dL (65-115); NT Pro B Type Natriuretic Pept 6260 pg/mL (0-450); Osmolality Calculated 308 mOsm/kg (285-295); Sodium 135 mmol/L (136-145); Total Bilirubin 0.3 mg/dL (0.15-1.2); Total Protein 6.6 g/dL (6.6-8.7)
[2023-12-25 21:27] LABS: Anion Gap 15.9 (5-19); Potassium 4.9 mmol/L (3.5-5.1)
[2023-12-25 21:57] VITALS: BP 126/57; PULSE 67; RESP 18; O2SAT 95
[2023-12-25 22:49] LABS: Troponin 5 2HR 654.4 ng/L (0-10); Troponin 5 2HR Delta 84.4 ABS# (0-10)
--- NOTE | 2023-12-25 22:59 | P.HP_ITS ---
Providers/Chief Complaint 2 Primary Care Provider: Antonio Delgado MD Chief Complaint: SOB History of Present Illness Sally Henderson is a 83 year old female with a past medical history significant for coronary artery disease status post CABG and recent NSTEMI is discharged earlier today, type 2 diabetes mellitus, dyslipidemia, and hypertension who presents the emergency department with shortness of breath. Patient had been discharged earlier today after being admitted for NSTEMI treated medically. She reports she was doing well prior to the discharge. When she got home she developed severe shortness of breath after exerting herself on some house chores. She denies any chest pain associated with the shortness of breath. Reports exertion worsens symptoms. Rest seem to improve. She states she also turned up her home oxygen. Endorses associated anxiety. In the emergency department, labs revealed leukocytosis to 15.71, hyperglycemia to 477, elevated troponin to 570 with 2-hour delta troponin of 84.4. NT-proBNP was found to be 6260, previously 2559 on 12/21/2023. Chest CT showed bibasilar atelectasis without focal consolidations or pleural effusions. EKG with persistent T wave abnormalities in lateral leads. Review of Systems 2 Narrative: A complete review of systems was obtained and is negative except as stated in HPI. Medications/Allergies Home Medications Medication Instructions Recorded Confirmed Last Taken Type gabapentin 600 mg tablet 600 mg PO BEDTIME 05/28/19 12/21/23 12/20/23 History multivitamin 1 tab PO BEDTIME 09/19/20 12/21/23 12/20/23 History ascorbic acid (vitamin C) 1,000 mg 1,000 mg PO DAILY 04/14/22 12/21/23 12/20/23 History tablet (Vitamin C) calcium carbonate 500 mg PO DAILY 08/29/23 12/21/23 12/20/23 History insulin degludec 200 unit/mL (3 30 unit SUBCUT DAILY@17 08/29/23 12/21/23 12/20/23 History mL) subcutaneous pen (Tresiba FlexTouch U-200 insulin) tramadol 50 mg tablet 100 mg PO BEDTIME 08/29/23 12/21/23 12/20/23 History isosorbide mononitrate 30 mg 30 mg PO DAILY #30 tabs 09/02/23 12/21/23 12/20/23 Rx tablet,extended release 24 hr aspirin 81 mg tablet,delayed 81 mg PO DAILY 30 days #30 tabs 12/25/23 Unknown Rx release atorvastatin 40 mg tablet 40 mg PO BEDTIME 30 days #30 tabs 12/25/23 Unknown Rx clopidogrel 75 mg tablet 75 mg PO BEDTIME 30 days #30 tabs 12/25/23 Unknown Rx prednisone 20 mg tablet 40 mg (2 x 20 mg) PO DAILY 3 days 12/25/23 Unknown Rx #6 tabs ranolazine 500 mg tablet,extended 500 mg PO BID 30 days #60 tabs 12/25/23 Unknown Rx release,12 hr Allergies Allergy/AdvReac Type Severity Reaction Status Date / Time No Known Allergies Allergy Verified 12/25/23 20:41 PFSH Acute 2 PFSH: Medical History (Updated 12/25/23 @ 23:34 by Toy Morse MD) Dyslipidemia Contrast-induced nephropathy Type 2 diabetes mellitus without complications CAD (coronary artery disease) Acute MA Essential (primary) hypertension Surgical History Hx of hysterectomy Hx of CABG Family History Unknown No problems noted. Social History Smoking and tobacco/nicotine status: never used tobacco/nicotine Alcohol intake: never Substance/Drug Use: never Vitals/I&O/Wt Last Vital Signs Pulse 67 12/25/23 21:57 Resp 18 12/25/23 21:57 BP 126/57 12/25/23 21:57 Pulse Ox 95 12/25/23 21:57 O2 Del Method Nasal Cannula 12/25/23 21:57 O2 Flow Rate 2 12/25/23 21:57 Weight last 48 hrs Weight 83.007 kg Physical Exam 2 Narrative: General: Patient is awake and alert. Head: Normocephalic. Atraumatic. EOM intact. Neck: No JVD. Cardiovascular: RRR. No gallops. No murmurs. Lungs: Clear to auscultation, no use of accessory muscles, no crackles or wheezes. Skin: No jaundice. No rashes. Abdomen: Normal bowel sounds, abdomen soft and nontender. Genito Urinary: Genital exam not performed since complaints not related. Rectal: Rectal exam not performed since no symptoms indicated blood loss. Extremities: No cyanosis or clubbing. Musculoskeletal: No swollen or erythematous joints. Neurological: Moves all 4 extremities. No myoclonus. Data 12/25/23 20:48 12/25/23 20:48 A&P Assessment and plan (1) Non-ST elevation MA (NSTEMI): NSTEMI in the setting of known CAD with prior CABG Recent NSTEMI noted Continue with dual antiplatelet therapy with aspirin and Plavix Continue high intensity statin Heart rate in the 60s, consider beta-sabrina pending Continuous telemetry monitoring Nitroglycerin as needed Heparin drip N.p.o. after midnight pending cardiology evaluation (2) Elevated brain natriuretic peptide (BNP) level: BNP is elevated Recent TTE with normal LVEF of 50 to 55% with grade 1 diastolic dysfunction Suspect component of volume overload She will be n.p.o. at midnight Consider Lasix on Monday Strict I's and O's Daily weights (3) Hypoxic respiratory failure: Checks x-ray and CT scan reviewed Continue supplemental oxygen via RT protocol (4) Essential (primary) hypertension: Currently normotensive Monitor vitals closely (5) Type 2 diabetes mellitus without complications: Continue long-acting insulin, reduce dose by 80% Utilize low-dose sliding scale due to n.p.o. status in the morning Plan DVT prophylaxis: Heparin Attestations 2 Medical Necessity Statement*: Patient presents with acute shortness of breath in the setting of recent NSTEMI found to have elevated troponin concerning for NSTEMI for which patient will be admitted to observation with expected hospitalization not to cross 2 midnights for heparin infusion and further cardiology recommendations. Coding Level of Care Code Acute Code for [facility] Diagnoses Non-ST elevation MA (NSTEMI) I21.4 Elevated brain natriuretic peptide (BNP) level R79.89 Hypoxic respiratory failure J96.91 Essential (primary) hypertension I10 Type 2 diabetes mellitus without complications E11.9
[2023-12-25] MEDS: aspirin 81 mg Chew Tablet 324 MG PO (23:06)
[2023-12-25 23:07] VITALS: BP 119/56; PULSE 67; RESP 18; O2SAT 95
[2023-12-25 23:25] VITALS: BP 147/81; PULSE 64; PULSE 70; RESP 19; O2SAT 93
[2023-12-25 23:39] VITALS: BMI 36.3
--- NOTE | 2023-12-25 23:50 | PC.NURSE ---
Pt blood sugar checked- result 475. Pt educated on need for insulin due to high result. Pt stated she took her insulin at home before she came in and does not need it. I'll be fine in the am. Physician notified of refusal.
[2023-12-26] VITALS (8 sets, daily range): BP systolic 105–154; BP diastolic 75–84; PULSE 61–72; RESP 14–21; TEMP 36.4–37; O2SAT 93–97
[2023-12-26 00:01] LABS: Glucose Point of Care 475 mg/dL (70-110)
[2023-12-26 00:07] LABS: Procalcitonin 0.05 ng/mL (0-0.5)
[2023-12-26] MEDS: heparin drip 25,000 UNIT/500 ML PREMIX 24 UNIT IV (00:40)
[2023-12-26] MEDS: heparin 5,000 unit/mL INJ 1 mL IVP ×2 (00:40→21:27)
[2023-12-26 03:13] LABS: Basophils % 0.1 %; Eosinophils % 0.1 %; Hematocrit 34.6 % (36-47); Lymphocytes # 0.7 10^3/uL (0.8-4.8); Lymphocytes % 4.7 %; Mean Corpuscular HGB Conc 31.8 g/dL (30-55); Mean Corpuscular Hemoglobin 27.6 pg (27-33); Mean Corpuscular Volume 86.7 fl (85-98); Mean Platelet Volume 11.8 fL (7.4-10.4); Monocytes # 0.5 10^3/uL (0.2-0.9); Monocytes % 3.2 %; Neutrophils # 14.34 10^3/uL (1.8-7.7); Neutrophils % 91.2 %; Nucleated Red Blood Cells % 0 %; Platelet Count 228 10^3/cmm (157-399); Red Blood Count 3.99 10^6/uL (3.85-5.65); Red Cell Distribution Width 12.5 % (12.1-15.1); White Blood Count 15.71 10^3/uL (3.29-11.43)
--- NOTE | 2023-12-26 03:15 | ECG_ITS ---
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 Measurements Intervals [place] Rate: 67 P: 49 W[place]: 160 QRS: -28 QRSD: 91 T: 184 QT: 456 QTc: 483 Interpretive Statements SINUS RHYTHM BORDERLINE LEFT AXIS DEVIATION [QRS AXIS < -20] INCOMPLETE RIGHT BUNDLE BRANCH BLOCK [90+ ms QRS DURATION, TERMINAL R IN V1/V2, 40+ ms S IN I/aVL/V4/V5/V6] LEFT VENTRICULAR HYPERTROPHY AND ST-T CHANGE [VOLTAGE CRITERIA PLUS ST/T ABNORMALITY] Compared to ECG 12/25/2023 20:42:56 Left ventricular hypertrophy now present ST (T wave) deviation now present Ventricular premature complex(es) no longer present T-wave abnormality no longer present Possible ischemia no longer present Electronically Signed On 12-26-2023 7:40:38 CDT by Boaz Jaramillo M.D. [id number]
[2023-12-26 03:32] LABS: Anion Gap 15.2 (5-19); Blood Urea Nitrogen 32 mg/dL (8-23); Calcium 8.8 mg/dL (8.5-10.5); Carbon Dioxide 26 mmol/L (22-29); Chloride 99 mmol/L (98-107); Creatinine Clr Calc Pharmacy 42.5211; Glucose 448 mg/dL (65-115); Osmolality Calculated 306 mOsm/kg (285-295); Potassium 5.2 mmol/L (3.5-5.1); Sodium 135 mmol/L (136-145)
[2023-12-26 03:34] LABS: Troponin 5 6HR 772.9 ng/L (0-10); Troponin 5 6HR Delta 202.9 ng/L (0-12)
[2023-12-26 06:33] LABS: Glucose Point of Care 347 mg/dL (70-110)
--- NOTE | 2023-12-26 07:36 | PM.CONSULT ---
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 She was just discharged home yesterday after she had NSTEMI. Culprit lesion as point hope ira left circumflex artery subtotal occlusion. And came back with feeling worsening shortness of breath and chest discomfort. Initial troponin was 570 which trended up to 770. BNP is over 6000. EKG shows T wave inversions in lateral and anterolateral leads. Echo done last week showed LV systolic function is normal with hypokinesis of lateral parkinson. On last admission medical therapy was decided after shared decision making. Patient did not want transfer at the time. She completed 48 hours of anticoagulation and was discharged home on dual antiplatelet therapy. Review of Systems Const: Denies: fever(s) Card: Reports: chest pain Resp: Reports: dyspnea GI: Denies: abdominal pain : Denies: flank pain Medications/Allergies Home Medications Medication Instructions Recorded Confirmed Last Taken Type gabapentin 600 mg tablet 600 mg PO BEDTIME 05/28/19 12/26/23 12/20/23 History multivitamin 1 tab PO BEDTIME 09/19/20 12/26/23 12/20/23 History ascorbic acid (vitamin C) 1,000 mg 1,000 mg PO DAILY 04/14/22 12/26/23 12/20/23 History tablet (Vitamin C) calcium carbonate 500 mg PO DAILY 08/29/23 12/26/23 12/20/23 History insulin degludec 200 unit/mL (3 30 unit SUBCUT DAILY@17 08/29/23 12/26/23 12/20/23 History mL) subcutaneous pen (Tresiba FlexTouch U-200 insulin) tramadol 50 mg tablet 100 mg PO BEDTIME 08/29/23 12/26/23 12/20/23 History isosorbide mononitrate 30 mg 30 mg PO DAILY #30 tabs 09/02/23 12/26/23 12/20/23 Rx tablet,extended release 24 hr aspirin 81 mg tablet,delayed 81 mg PO DAILY 30 days #30 tabs 12/25/23 12/26/23 Unknown Rx release atorvastatin 40 mg tablet 40 mg PO BEDTIME 30 days #30 tabs 12/25/23 12/26/23 Unknown Rx clopidogrel 75 mg tablet 75 mg PO BEDTIME 30 days #30 tabs 12/25/23 12/26/23 Unknown Rx prednisone 20 mg tablet 40 mg (2 x 20 mg) PO DAILY 3 days 12/25/23 12/26/23 Unknown Rx #6 tabs ranolazine 500 mg tablet,extended 500 mg PO BID 30 days #60 tabs 12/25/23 12/26/23 Unknown Rx release,12 hr Allergies Allergy/AdvReac Type Severity Reaction Status Date / Time No Known Allergies Allergy Verified 12/25/23 20:41 Current Medications Generic Name Dose Route Start Last Admin Trade Name Freq PRN Reason Stop Dose Admin Heparin Sodium/Sodium Chloride 25,000 unit in 500 mls @ 0 mls/hr 12/25/23 23:30 12/26/23 00:40 Heparin Drip IV 14.22 unit/kg/hr CONT LI 24 mls/hr Administration Protocol Per Protocol PFSH Acute PFSH: Medical History Dyslipidemia Contrast-induced nephropathy Type 2 diabetes mellitus without complications CAD (coronary artery disease) Acute SC Essential (primary) hypertension Surgical History Hx of hysterectomy Hx of CABG Family History Unknown No problems noted. Social History Smoking and tobacco/nicotine status: never used tobacco/nicotine Alcohol intake: never Substance/Drug Use: never Vitals/I&O/Wt Last Vital Signs Temp 97.6 F 12/26/23 07:06 Pulse 65 12/26/23 07:06 Resp 16 12/26/23 07:06 BP 139/78 12/26/23 07:06 Pulse Ox 97 12/26/23 07:06 O2 Del Method Nasal Cannula 12/26/23 07:06 O2 Flow Rate 2 12/25/23 23:07 Weight last 48 hrs Weight 186 lb Weight 183 lb Physical Exam Narrative: GENERAL: Patient is alert, awake and oriented x3. [] NECK: No jugular vein distension. [] HEENT: No cyanosis. No icterus. No pallor. [] HEART: Regular S1 and S2. No murmur, rub or gallop. [] LUNGS: Clear to auscultate bilaterally. [] CENTRAL NERVOUS SYSTEM: Grossly nonfocal. [] EXTREMITIES: Lower extremities with 1+ edema bilaterally. Data 12/26/23 03:06 12/26/23 03:06 A&P Assessment and plan (1) Non-ST elevation SC (NSTEMI): (2) CAD (coronary artery disease): (3) Essential (primary) hypertension: (4) Type 2 diabetes mellitus without complications: Plan Patient has been having recurrent NSTEMI episodes. Previously patient wanted medical therapy. However with recurrent admissions, now patient is agreeable to be transferred for possible high risk PCI of left circumflex artery with atherectomy. We do not have CT surgery back up. Patient understands risks and benefits. Continue dual platelet therapy. Continue anticoagulation. Thank you for involving us with care of this patient. We will continue to follow. Please call with questions. Consult Attestations Medical Necessity Statement: Care expected to cross 2 midnights. Coding Level of Care Code Acute Code for [facility] Diagnoses Non-ST elevation SC (NSTEMI) I21.4 CAD (coronary artery disease) I25.10 Essential (primary) hypertension I10 Type 2 diabetes mellitus without complications E11.9
--- NOTE | 2023-12-26 08:12 | P.PN_ITS ---
Subjective 2 Subjective: This morning patient is not complaining of any chest pain # Stating that her shortness of breath has slightly improved At baseline she uses 2 L of oxygen Spoke with cardiology: Dr. Jaramillo recommended arthrectomy with intervention versus transfer to tertiary center because of her significant calcification which puts her at high risk of perioperative complications Patient is wanting to discuss with her family and let us know by the end of the day Vitals/I&O/Wt Last Vital Signs Temp 97.6 F 12/26/23 07:06 Pulse 65 12/26/23 07:06 Resp 16 12/26/23 07:06 BP 139/78 12/26/23 07:06 Pulse Ox 97 12/26/23 07:06 O2 Del Method Nasal Cannula 12/26/23 07:06 O2 Flow Rate 2 12/25/23 23:07 12/25/23 12/26/23 12/26/23 22:59 06:59 14:59 Intake Total 178 / 178 Balance 178 / 178 Weight last 48 hrs Weight 84.368 kg Weight 83.007 kg Physical Exam 2 Narrative: Currently on 2 L Blood pressure 139/78 mmHg No active chest pain Active shoulder pain No active shortness of breath No audible stridor or wheezing S1, S2 Hemodynamically stable Euvolemic Abdomen soft Pleasant and cooperative Data 12/26/23 03:06 12/26/23 03:06 A&P Assessment and plan (1) Essential (primary) hypertension: (2) Elevated brain natriuretic peptide (BNP) level: (3) CAD (coronary artery disease): (4) Dyslipidemia: (5) Type 2 diabetes mellitus without complications: (6) Hyperkalemia: (7) Hyperglycemia: Plan Non-STEMI Recurrent admissions, this is her third admit for an angina equivalent symptoms and signs Atherosclerotic disease History of stent placement in the past Cardiology recommended intervention versus evaluation at tertiary center secondary to high-grade calcification, patient will discuss with her family and let us know N.p.o. status can be changed to cardiac consistent carb diet Hyperglycemia without signs of DKA Start insulin sliding scale Hyperkalemia: Given Kayexalate Continue ACS protocol Hypertensive urgency: Optimize antihypertensive regimen Chronic hypoxia requires 2 L at baseline Attestations 2 Medical Necessity Statement*: Continue medical management Diagnoses Essential (primary) hypertension I10 Elevated brain natriuretic peptide (BNP) level R79.89 CAD (coronary artery disease) I25.10 Dyslipidemia E78.5 Type 2 diabetes mellitus without complications E11.9 Hyperkalemia E87.5 Hyperglycemia R73.9
--- NOTE | 2023-12-26 09:01 | PC.CHAP ---
Pastoral Care Encounter/Spiritual Assessment Type of Contact [x] Declined supervisor drapery hanging visit [] Patient/Family/Request visit [] Outpatient visit [] Follow-up visit [] Physician referral [] Code/Alert [] Routine visit [] Staff referral [] Actively dying [] Patient sleeping [] Family support [] [] Out of room [] Palliative care [] [] Receiving care in room [] Pre-surgical visit [] Trauma [] Long length of stay [] ICU visit [] Other: Relational/Emotional Strength [] Patient feels connected with others/family/visitors/staff [] Distress [] Loneliness/isolation [] Abandonment Spirituality of Patient [] Person of [place] [] Attends L[employer] Day of their [place] [] Believes in Prayer [] Reads Bible or Denominational materials [x] There are Spiritual issues to be addressed Merchandise Deliverer 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 [] Prayer [] Active listening [] Non-anxious presence [] Spiritual/emotional support [] Crisis/trauma care [] Spiritual counseling [] Bereavement support [] Provided bereavement packet [] Provided Bible/devotional materials [] Provided toy/stuffed animal, coloring book to patient or family member [] Provided Communion [] Anointing/[place] [] Salvation [] Completed spiritual assessment [] Other: Impact on Illness or Injury [] Angry [] Fearful [] Anxious [] Often cries [] Exhaustion [] Unable to work [] Unable to attend alevism [] Unable to walk/stand [] Unable to read [] Unable to drive [] Unable to eat/drink [] Unable to sleep [] Unable to be with family [] Patient intubated [] Other: Summary Time spent with patient
[2023-12-26] MEDS: aspirin 81 mg EC Tablet PO (09:10)
[2023-12-26] MEDS: ranolazine (12HR) 500 mg Tablet PO ×2 (09:10→17:32)
[2023-12-26] MEDS: calcium carbonate 500 mg Chew Tablet PO (09:11)
[2023-12-26] MEDS: insulin lispro 100 unit/1 mL SUBCUT ×3 (09:11→21:26)
--- NOTE | 2023-12-26 09:39 | PC.NURSE ---
Provider is notified that patient is refusing her Kayexalate.
[2023-12-26 11:25] LABS: Glucose Point of Care 322 mg/dL (70-110)
[2023-12-26 14:22] LABS: Partial Thromboplastin Time 76.4 SECONDS (23.9-36.7)
[2023-12-26 16:17] LABS: Glucose Point of Care 139 mg/dL (70-110)
[2023-12-26] MEDS: insulin glargine 100 units/1 mL 20 UNIT SUBCUT (17:32)
[2023-12-26 21:01] LABS: Glucose Point of Care 198 mg/dL (70-110)
[2023-12-26 21:10] LABS: Partial Thromboplastin Time 46.5 SECONDS (23.9-36.7)
[2023-12-26] MEDS: clopidogrel 75 mg Tablet PO (21:24)
[2023-12-26] MEDS: isosorbide mononitrate ER 30 mg Tablet PO (21:25)
[2023-12-26] MEDS: TRAMadol 50 mg Tablet 100 MG PO (21:25)
[2023-12-26] MEDS: atorvastatin 40 mg Tablet PO (21:25)
[2023-12-26] MEDS: gabapentin 300 mg Capsule 600 MG PO (23:10)
[2023-12-27] VITALS (9 sets, daily range): BP systolic 108–146; BP diastolic 61–80; PULSE 57–77; RESP 14–19; TEMP 36.1–36.8; O2SAT 92–97
[2023-12-27] MEDS: heparin drip 25,000 UNIT/500 ML PREMIX 19 UNIT IV (01:38)
[2023-12-27 03:05] LABS: Basophils % 0.1 %; Eosinophils # 0.2 10^3/uL (0.0-0.8); Eosinophils % 1.4 %; Hematocrit 36.3 % (36-47); Lymphocytes # 2.2 10^3/uL (0.8-4.8); Lymphocytes % 13.4 %; Mean Corpuscular HGB Conc 31.1 g/dL (30-55); Mean Corpuscular Hemoglobin 27.3 pg (27-33); Mean Corpuscular Volume 87.7 fl (85-98); Mean Platelet Volume 11.4 fL (7.4-10.4); Monocytes # 1.5 10^3/uL (0.2-0.9); Monocytes % 9.2 %; Neutrophils # 12.52 10^3/uL (1.8-7.7); Neutrophils % 75.4 %; Nucleated Red Blood Cells % 0 %; Platelet Count 220 10^3/cmm (157-399); Red Blood Count 4.14 10^6/uL (3.85-5.65); White Blood Count 16.63 10^3/uL (3.29-11.43)
[2023-12-27 03:25] LABS: Partial Thromboplastin Time 62.6 SECONDS (23.9-36.7)
[2023-12-27 03:30] LABS: Anion Gap 11.1 (5-19); Blood Urea Nitrogen 28 mg/dL (8-23); Calcium 8.5 mg/dL (8.5-10.5); Carbon Dioxide 31 mmol/L (22-29); Chloride 104 mmol/L (98-107); Creatinine Clr Calc Pharmacy 42.5211; Glucose 154 mg/dL (65-115); Osmolality Calculated 303 mOsm/kg (285-295); Potassium 4.1 mmol/L (3.5-5.1); Sodium 142 mmol/L (136-145)
[2023-12-27 03:33] LABS: Estmated Average Glucose 183
[2023-12-27 06:51] LABS: Glucose Point of Care 137 mg/dL (70-110)
[2023-12-27] MEDS: aspirin 81 mg EC Tablet PO (08:48)
[2023-12-27] MEDS: ranolazine (12HR) 500 mg Tablet PO ×2 (08:49→17:50)
[2023-12-27] MEDS: amoxicillin-clav 875-125 mg Tablet 1 TAB PO ×2 (08:49→17:50)
[2023-12-27] MEDS: calcium carbonate 500 mg Chew Tablet PO (08:49)
[2023-12-27 09:07] LABS: Partial Thromboplastin Time 62.6 SECONDS (23.9-36.7)
--- NOTE | 2023-12-27 09:41 | P.PN_ITS ---
Subjective 2 Subjective: Patient feeling well. No chest pain. Awaiting transfer to [facility] pending bed availability Vitals/I&O/Wt Last Vital Signs Temp 98.0 F 12/27/23 07:34 Pulse 77 12/27/23 07:34 Resp 15 12/27/23 07:34 BP 131/80 12/27/23 07:34 Pulse Ox 95 12/27/23 07:34 O2 Del Method Nasal Cannula 12/27/23 07:34 O2 Flow Rate 2 12/25/23 23:07 12/26/23 12/27/23 12/27/23 22:59 06:59 14:59 Intake Total 555.033 / 1077.166 124.317 / 1201.483 582.6 / 582.6 Balance 555.033 / 1077.166 124.317 / 1201.483 582.6 / 582.6 Weight last 48 hrs Weight 177 lb Weight 186 lb Weight 183 lb Physical Exam 2 Narrative: GENERAL: Patient is alert, awake and oriented x3. [] NECK: No jugular vein distension. [] HEENT: No cyanosis. No icterus. No pallor. [] HEART: Regular S1 and S2. No murmur, rub or gallop. [] LUNGS: Clear to auscultate bilaterally. [] CENTRAL NERVOUS SYSTEM: Grossly nonfocal. [] EXTREMITIES: Lower extremities with 1+ edema bilaterally. Data 12/27/23 03:00 12/27/23 03:00 A&P Assessment and plan (1) Non-ST elevation NV (NSTEMI): (2) CAD (coronary artery disease): (3) Essential (primary) hypertension: (4) Type 2 diabetes mellitus without complications: Plan Patient is chest pain free. Continue dual antiplatelet agents and anticoagulation. She is pending transfer for high risk PCI Thank you for involving us with care of this patient. We will continue to follow. Please call with questions. Attestations 2 Medical Necessity Statement*: Care expected to cross 2 midnights Coding Level of Care Code Acute Code for [facility] Diagnoses Non-ST elevation NV (NSTEMI) I21.4 CAD (coronary artery disease) I25.10 Essential (primary) hypertension I10 Type 2 diabetes mellitus without complications E11.9
[2023-12-27 11:56] LABS: Glucose Point of Care 215 mg/dL (70-110)
[2023-12-27] MEDS: enoxaparin 80 mg/0.8 mL Syringe SUBCUT ×2 (12:10→23:11)
[2023-12-27] MEDS: insulin lispro 100 unit/1 mL SUBCUT ×3 (12:10→21:08)
[2023-12-27 16:40] LABS: Glucose Point of Care 210 mg/dL (70-110)
[2023-12-27] MEDS: insulin glargine 100 units/1 mL 20 UNIT SUBCUT (17:49)
[2023-12-27] MEDS: acetaminophen 325 mg Tablet 650 MG PO (17:49)
--- NOTE | 2023-12-27 18:10 | P.PN_ITS ---
Subjective 2 Subjective: No active chest pain Vitals/I&O/Wt Last Vital Signs Temp 98.0 F 12/27/23 16:00 Pulse 63 12/27/23 16:00 Resp 19 H 12/27/23 16:00 BP 146/72 12/27/23 16:00 Pulse Ox 97 12/27/23 16:00 O2 Del Method Nasal Cannula 12/27/23 16:00 O2 Flow Rate 2 12/25/23 23:07 12/27/23 12/27/23 12/27/23 06:59 14:59 22:59 Intake Total 124.317 / 1201.483 802.6 / 802.6 Balance 124.317 / 1201.483 802.6 / 802.6 Weight last 48 hrs Weight 80.286 kg Weight 84.368 kg Weight 83.007 kg Physical Exam 2 Narrative: Euvolemic Pleasant cooperative Hemodynamic stable No active chest pain Data 12/27/23 03:00 12/27/23 03:00 A&P Assessment and plan (1) Essential (primary) hypertension: (2) Type 2 diabetes mellitus without complications: (3) NSTEMI (non-ST elevated myocardial infarction): Plan Awaiting bed number from [facility] she has been accepted already. ACS protocol to be finished Change heparin drip to therapeutic Lovenox Continue dual antiplatelet therapy Attestations 2 Medical Necessity Statement*: Continue medical management Diagnoses Essential (primary) hypertension I10 Type 2 diabetes mellitus without complications E11.9 NSTEMI (non-ST elevated myocardial infarction) I21.4
[2023-12-27] MEDS: gabapentin 300 mg Capsule 600 MG PO (20:12)
[2023-12-27] MEDS: isosorbide mononitrate ER 30 mg Tablet PO (20:12)
[2023-12-27] MEDS: clopidogrel 75 mg Tablet PO (20:13)
[2023-12-27] MEDS: atorvastatin 40 mg Tablet PO (20:13)
[2023-12-27] MEDS: TRAMadol 50 mg Tablet 100 MG PO (20:13)
[2023-12-27 20:42] LABS: Glucose Point of Care 254 mg/dL (70-110)
[2023-12-28] VITALS (7 sets, daily range): BP systolic 103–140; BP diastolic 68–90; PULSE 58–72; RESP 17–25; TEMP 36.4–36.8; O2SAT 90–97
[2023-12-28 06:23] LABS: Glucose Point of Care 65 mg/dL (70-110)
--- NOTE | 2023-12-28 07:59 | P.PN_ITS ---
Subjective 2 Subjective: Staying chest pain free. Awaiting bed availability for transfer. Vitals/I&O/Wt Last Vital Signs Temp 97.9 F 12/28/23 07:40 Pulse 72 12/28/23 07:40 Resp 25 H 12/28/23 07:40 BP 135/76 12/28/23 07:40 Pulse Ox 90 12/28/23 07:40 O2 Del Method Room Air 12/28/23 07:40 O2 Flow Rate 1.5 12/27/23 20:00 12/27/23 12/28/23 12/28/23 22:59 06:59 14:59 Intake Total 480 / 1282.6 600 / 1882.6 Balance 480 / 1282.6 600 / 1882.6 Weight last 48 hrs Weight 180 lb 3.2 oz Weight 177 lb Physical Exam 2 Narrative: GENERAL: Patient is alert, awake and oriented x3. [] NECK: No jugular vein distension. [] HEENT: No cyanosis. No icterus. No pallor. [] HEART: Regular S1 and S2. No murmur, rub or gallop. [] LUNGS: Clear to auscultate bilaterally. [] CENTRAL NERVOUS SYSTEM: Grossly nonfocal. [] EXTREMITIES: Lower extremities with 1+ edema bilaterally. Data 12/29/23 09:20 12/27/23 03:00 A&P Assessment and plan (1) Non-ST elevation HI (NSTEMI): (2) CAD (coronary artery disease): (3) Essential (primary) hypertension: (4) Type 2 diabetes mellitus without complications: Plan Patient is overall stable. Will continue with dual antiplatelet therapy. Awaiting transfer. Thank you for involving us with care of this patient. We will continue to follow. Please call with questions. Attestations 2 Medical Necessity Statement*: Care expected to cross 2 midnights. Coding Level of Care Code Acute Code for [facility] Diagnoses Non-ST elevation HI (NSTEMI) I21.4 CAD (coronary artery disease) I25.10 Essential (primary) hypertension I10 Type 2 diabetes mellitus without complications E11.9
[2023-12-28] MEDS: amoxicillin-clav 875-125 mg Tablet 1 TAB PO ×2 (08:39→17:27)
[2023-12-28] MEDS: aspirin 81 mg EC Tablet PO (08:39)
[2023-12-28] MEDS: calcium carbonate 500 mg Chew Tablet PO (08:39)
[2023-12-28] MEDS: ranolazine (12HR) 500 mg Tablet PO ×2 (08:39→17:27)
--- NOTE | 2023-12-28 10:55 | P.PN_ITS ---
Subjective 2 Subjective: Low blood sugar however no active symptoms I will reduce the dose of insulin History patient still waiting for bed number and placement at [facility] No active chest pain Hemodynamic stable Vitals/I&O/Wt Last Vital Signs Temp 97.9 F 12/28/23 07:40 Pulse 72 12/28/23 07:40 Resp 25 H 12/28/23 07:40 BP 135/76 12/28/23 07:40 Pulse Ox 90 12/28/23 07:40 O2 Del Method Room Air 12/28/23 07:40 O2 Flow Rate 1.5 12/27/23 20:00 12/27/23 12/28/23 12/28/23 22:59 06:59 14:59 Intake Total 480 / 1282.6 600 / 1882.6 540 / 540 Balance 480 / 1282.6 600 / 1882.6 540 / 540 Weight last 48 hrs Weight 81.737 kg Weight 80.286 kg Physical Exam 2 Narrative: Awake and alert GCS 15 Euvolemic Pleasant Currently on room air Hemodynamic stable No active chest pain Data 12/27/23 03:00 12/27/23 03:00 A&P Assessment and plan (1) Essential (primary) hypertension: (2) Elevated brain natriuretic peptide (BNP) level: (3) NSTEMI (non-ST elevated myocardial infarction): (4) Type 2 diabetes mellitus without complications: Plan Awaiting placement, has been accepted by [facility], considering blood sugar of 65 mg this morning I will reduce the dose of Lantus from 20 units to 10 units however patient did not experience any symptoms monitor closely for now She is on sliding scale No active chest pain Patient is agreeable to waiting till Monday Currently on therapeutic Lovenox along aspirin and Plavix Attestations 2 Medical Necessity Statement*: Awaiting placement Diagnoses Essential (primary) hypertension I10 Elevated brain natriuretic peptide (BNP) level R79.89 NSTEMI (non-ST elevated myocardial infarction) I21.4 Type 2 diabetes mellitus without complications E11.9
[2023-12-28 11:47] LABS: Glucose Point of Care 148 mg/dL (70-110)
[2023-12-28] MEDS: enoxaparin 80 mg/0.8 mL Syringe SUBCUT ×2 (12:30→23:59)
[2023-12-28] MEDS: insulin lispro 100 unit/1 mL SUBCUT ×3 (12:31→21:10)
--- NOTE | 2023-12-28 12:47 | PC.NURSE ---
Sales Representative [employer] and ice house supervisor were standing outside the door of 108 and a gentleman from [employer] informed us that 106 was 3/4s off the bed . Sales Representative [employer] and ice house supervisor went into room and asked her if she needed help because she was hanging off the bath. Patient stated I'm fine, leave me alone. quality assurance supervisor final again asked if we could help her get fully into the bed and put the bed rail up and patient said no.
[2023-12-28 17:18] LABS: Glucose Point of Care 165 mg/dL (70-110)
[2023-12-28] MEDS: insulin glargine 100 units/1 mL 10 UNIT SUBCUT (17:27)
[2023-12-28 20:23] LABS: Glucose Point of Care 164 mg/dL (70-110)
[2023-12-28] MEDS: clopidogrel 75 mg Tablet PO (21:06)
[2023-12-28] MEDS: isosorbide mononitrate ER 30 mg Tablet PO (21:06)
[2023-12-28] MEDS: gabapentin 300 mg Capsule 600 MG PO (21:06)
[2023-12-28] MEDS: TRAMadol 50 mg Tablet 100 MG PO (21:07)
[2023-12-28] MEDS: atorvastatin 40 mg Tablet PO (21:07)
[2023-12-29] VITALS (9 sets, daily range): BP systolic 118–161; BP diastolic 64–79; PULSE 58–72; RESP 13–19; TEMP 36.3–36.9; O2SAT 95–97
[2023-12-29 06:31] LABS: Glucose Point of Care 86 mg/dL (70-110)
[2023-12-29] MEDS: calcium carbonate 500 mg Chew Tablet PO (08:51)
[2023-12-29] MEDS: amoxicillin-clav 875-125 mg Tablet 1 TAB PO (08:51)
[2023-12-29] MEDS: ranolazine (12HR) 500 mg Tablet PO ×2 (08:51→17:38)
[2023-12-29] MEDS: aspirin 81 mg EC Tablet PO (08:51)
[2023-12-29 09:28] LABS: Basophils % 0.2 %; Eosinophils # 0.3 10^3/uL (0.0-0.8); Eosinophils % 3.4 %; Hematocrit 36.6 % (36-47); Lymphocytes # 1.7 10^3/uL (0.8-4.8); Lymphocytes % 18.4 %; Mean Corpuscular HGB Conc 31.1 g/dL (30-55); Mean Corpuscular Hemoglobin 27.8 pg (27-33); Mean Corpuscular Volume 89.3 fl (85-98); Mean Platelet Volume 11.8 fL (7.4-10.4); Monocytes # 0.8 10^3/uL (0.2-0.9); Monocytes % 8.6 %; Neutrophils # 6.42 10^3/uL (1.8-7.7); Neutrophils % 68.9 %; Nucleated Red Blood Cells % 0 %; Platelet Count 200 10^3/cmm (157-399); Red Cell Distribution Width 12.9 % (12.1-15.1); White Blood Count 9.33 10^3/uL (3.29-11.43)
--- NOTE | 2023-12-29 10:06 | PC.NURSE ---
Pt Dr. Avelar the pt is getting tired and frustrated waiting for a bed at [facility] although that is where the family wants her to go. The pt apparently wanted to go to [facility] and she expressed her desire to go there today as well. Instructed to call the [facility] Transfer line and see if we can get the pt transferred there instead while still waiting for a bed at [facility].
--- NOTE | 2023-12-29 10:42 | PM.PN ---
Subjective Subjective: Patient is stating that she is getting frustrated waiting for [facility] bed availability She wants us to try [place] We have called [facility] waiting for callback Vitals/I&O/Wt Last Vital Signs Temp 97.3 F L 12/29/23 07:57 Pulse 72 12/29/23 07:57 Resp 18 12/29/23 07:57 BP 125/67 12/29/23 07:57 Pulse Ox 97 12/29/23 07:57 O2 Del Method Nasal Cannula 12/29/23 07:57 O2 Flow Rate 2 12/29/23 03:52 12/28/23 12/29/23 12/29/23 22:59 06:59 14:59 Intake Total 440 / 1460 120 / 120 Balance 440 / 1460 120 / 120 Weight last 48 hrs Weight 80.15 kg Weight 81.737 kg Physical Exam Narrative: No active chest pain Awake and alert Nonfocal neuroexam GCS 15 Sitting at the bedside Euvolemic Data 12/29/23 09:20 12/27/23 03:00 A&P Assessment and plan (1) Essential (primary) hypertension: (2) NSTEMI (non-ST elevated myocardial infarction): (3) Type 2 diabetes mellitus without complications: Plan Patient is wanting us to try [facility], awaiting callback from [facility] She is already excepted at [facility] by Dr. Coyne awaiting bed number Attestations Medical Necessity Statement*: Continue medical management Coding Level of Care Code Acute Code for [facility] Diagnoses Essential (primary) hypertension I10 NSTEMI (non-ST elevated myocardial infarction) I21.4 Type 2 diabetes mellitus without complications E11.9
--- NOTE | 2023-12-29 11:02 | PM.PN ---
Subjective Subjective: Patient doing well. No chest pain. Vitals/I&O/Wt Last Vital Signs Temp 97.3 F L 12/29/23 07:57 Pulse 72 12/29/23 07:57 Resp 18 12/29/23 07:57 BP 125/67 12/29/23 07:57 Pulse Ox 97 12/29/23 07:57 O2 Del Method Nasal Cannula 12/29/23 07:57 O2 Flow Rate 2 12/29/23 03:52 12/28/23 12/29/23 12/29/23 22:59 06:59 14:59 Intake Total 440 / 1460 120 / 120 Balance 440 / 1460 120 / 120 Weight last 48 hrs Weight 176 lb 11.2 oz Weight 180 lb 3.2 oz Physical Exam Narrative: GENERAL: Patient is alert, awake and oriented x3. [] NECK: No jugular vein distension. [] HEENT: No cyanosis. No icterus. No pallor. [] HEART: Regular S1 and S2. No murmur, rub or gallop. [] LUNGS: Clear to auscultate bilaterally. [] CENTRAL NERVOUS SYSTEM: Grossly nonfocal. [] EXTREMITIES: Lower extremities with 1+ edema bilaterally. Data 12/29/23 09:20 12/27/23 03:00 A&P Assessment and plan (1) Non-ST elevation [place] (NSTEMI): (2) CAD (coronary artery disease): (3) Essential (primary) hypertension: (4) Type 2 diabetes mellitus without complications: Plan No chest pain. Continue dual antiplatelet therapy. Plan for transfer to [facility] as bed availability still not at [place]. Attestations Medical Necessity Statement*: Care expected to cross 2 midnights. Coding Level of Care Code Acute Code for [facility] Fwd Diagnoses Non-ST elevation AL (NSTEMI) I21.4 CAD (coronary artery disease) I25.10 Essential (primary) hypertension I10 Type 2 diabetes mellitus without complications E11.9
[2023-12-29 11:22] LABS: Glucose Point of Care 242 mg/dL (70-110)
--- NOTE | 2023-12-29 12:20 | PM.TDS ---
Transfer Summary Providers Date of Admission: 12/25/23 23:17 Date of Discharge/Transfer: 12/29/23 Attending Provider at Admission: Toy Morse MD Attending Provider at Transfer: Robson Avelar MD Primary Care Provider: Antonio Delgado MD Transfer Plans: Anticipated date of transfer: 12/29/23. Diagnoses at Discharge Discharge Diagnosis (1) Essential (primary) hypertension: Status: Acute (2) Elevated brain natriuretic peptide (BNP) level: Status: Acute (3) CAD (coronary artery disease): Status: Acute (4) Dyslipidemia: Status: Acute (5) Type 2 diabetes mellitus without complications: Status: Acute (6) Hyperkalemia: Status: Acute (7) Hyperglycemia: Status: Acute Reason for Visit Reason for Visit SOB Hospital Course Hospital Course 83-year-old female with established coronary disease status post CABG in the past, has had multiple admissions to the hospital for symptoms related to angina equivalent, who was admitted with NSTEMI in August who was found to have patent [place] to LAD, occluded SVG grafts, [employer] of RCA, critical, heavily calcified subtotally occluded left circumflex artery that underwent balloon angioplasty however complete revascularization could not be performed as stent could not be advanced. Patient was readmitted 12/20 for her symptoms of shortness of breath and left-sided shoulder pain, 12/21 Repeat angiogram was same as last coronary angiogram. G[place] to LAD is patent. Has septal and diagonal arteries coming off of occluded LAD that are patent. Ostial to mid left circumflex artery is subtotally occluded with heavy calcification. Cardiology was consulted, who gave the option to the patient to go for arthrectomy and revascularization attempt at our hospital versus tertiary center where vascular backup is available, patient decided to get this procedure done at a tertiary center. Patient has been accepted at [facility] Dr. Loza Physical Exam Narrative: Euvolemic No active chest pain Pleasant cooperative Currently on 2 L Pleasant cooperative S1, S2, Abdomen soft TS Data Studies Completed and Pending Pending at discharge Category Date Time Status Basic Metabolic Panel AM LABS Lab 12/27/23 04:00 Ordered Complete Blood Count w/Auto AM LABS Lab 12/27/23 04:00 Ordered Hemoglobin A1C AM LABS Lab 12/27/23 04:00 Ordered PTT [Partial Thromboplastin Time] Timed Lab 12/26/23 14:00 Ordered Platelet Count Q2D Lab 12/27/23 04:00 Ordered Platelet Count Q2D Lab 12/29/23 04:00 Ordered Completed Studies During Hospitalization Category Date Time Status CT chest wo con [id number] Stat Cat Scan 12/25/23 20:56 Completed XR chest 1V portable [id number] Stat Exams 12/25/23 20:40 Completed Laboratory Last Values WBC 15.71 10^3/uL (3.29-11.43) H 12/26/23 03:06 RBC 3.99 10^6/uL (3.85-5.65) 12/26/23 03:06 Hgb 11.00 g/dL (11.27-16.99) L 12/26/23 03:06 Hct 34.6 % (36-47) L 12/26/23 03:06 MCV 86.7 fl (85-98) 12/26/23 03:06 MCH 27.6 pg (27-33) 12/26/23 03:06 MCHC 31.8 g/dL (30-55) 12/26/23 03:06 RDW 12.5 % (12.1-15.1) 12/26/23 03:06 Plt Count 228 10^3/cmm (157-399) 12/26/23 03:06 MPV 11.8 fL (7.4-10.4) H 12/26/23 03:06 Neut % (Auto) 91.2 % 12/26/23 03:06 Lymph % (Auto) 4.7 % 12/26/23 03:06 Marshall % (Auto) 3.2 % 12/26/23 03:06 Eos % (Auto) 0.1 % 12/26/23 03:06 Baso % (Auto) 0.1 % 12/26/23 03:06 Neut # (Auto) 14.34 10^3/uL (1.8-7.7) H 12/26/23 03:06 Lymph # (Auto) 0.7 10^3/uL (0.8-4.8) L 12/26/23 03:06 Marshall # (Auto) 0.5 10^3/uL (0.2-0.9) 12/26/23 03:06 Eos # (Auto) 0.0 10^3/uL (0.0-0.8) 12/26/23 03:06 Baso # (Auto) 0.0 10^3/uL (0.0-0.1) 12/26/23 03:06 Nucleated RBC % (auto) 0 % 12/26/23 03:06 Nucleated RBCs # 0.0 /100WBC 12/26/23 03:06 APTT 144.0 SECONDS (23.9-36.7) H 12/26/23 06:45 Sodium 135 mmol/L (136-145) L 12/26/23 03:06 Potassium 5.2 mmol/L (3.5-5.1) H 12/26/23 03:06 Chloride 99 mmol/L (98-107) 12/26/23 03:06 Carbon Dioxide 26 mmol/L (22-29) 12/26/23 03:06 Anion Gap 15.2 (5-19) 12/26/23 03:06 BUN 32 mg/dL (8-23) H 12/26/23 03:06 Creatinine 1.0 mg/dL (0.5-0.9) H 12/26/23 03:06 GFR Calculation Not Reportable 12/26/23 03:06 Glucose 448 mg/dL (65-115) H 12/26/23 03:06 POC Glucose 347 mg/dL (70-110) H 12/26/23 06:29 Calculated Osmolality 306 mOsm/kg (285-295) H 12/26/23 03:06 Calcium 8.8 mg/dL (8.5-10.5) 12/26/23 03:06 Magnesium 2.0 mg/dL (1.7-2.3) 12/26/23 03:06 Total Bilirubin 0.3 mg/dL (0.15-1.2) 12/25/23 20:48 AST 20 U/L (0-32) 12/25/23 20:48 ALT 15 U/L (0-33) 12/25/23 20:48 Alkaline Phosphatase 115 U/L (35-105) H 12/25/23 20:48 Troponin T Baseline 570 ng/L (0-10) H* 12/25/23 20:48 Troponin T 120 Minute 654.4 ng/L (0-10) H 12/25/23 22:21 Delta Troponin T 84.4 ABS# (0-10) H* 12/25/23 22:21 Troponin T Hi Sens 6Hr 772.9 ng/L (0-10) H 12/26/23 03:06 Troponin T Hi Sens 6Hr Delta 202.9 ng/L (0-12) H* 12/26/23 03:06 NT-Pro-B Natriuret Pep 6260 pg/mL (0-450) H 12/25/23 20:48 Total Protein 6.6 g/dL (6.6-8.7) 12/25/23 20:48 Albumin 3.6 g/dL (3.5-5.2) 12/25/23 20:48 Globulin 3.0 g/dL (1.3-4.6) 12/25/23 20:48 Procalcitonin 0.05 ng/mL (0-0.5) 12/25/23 22:21 Radiology Impressions Chest X-Ray 12/25/23 20:40 IMPRESSION: Cardiomegaly. Mild left basilar atelectasis. Chest CT 12/25/23 20:56 IMPRESSION: Respiratory motion artifact. Bibasilar atelectasis, [id number]. No focal consolidations or pleural effusion. Cardiomegaly. Recent Clincial Data Last Vital Signs Temp 97.6 F 12/26/23 07:06 Pulse 65 12/26/23 07:06 Resp 16 12/26/23 07:06 BP 139/78 12/26/23 07:06 Pulse Ox 97 12/26/23 07:06 O2 Del Method Nasal Cannula 12/26/23 07:06 O2 Flow Rate 2 12/25/23 23:07 Vital Signs Temp Pulse Resp BP Pulse Ox O2 Del Method O2 Flow Rate 12/26/23 07:06 97.6 F 65 16 139/78 97 Nasal Cannula 12/26/23 06:00 64 12/26/23 00:00 98.1 F 63 21 H 105/75 94 Room Air 12/25/23 23:39 Nasal Cannula 12/25/23 23:25 64 12/25/23 23:25 70 19 H 147/81 93 Room Air 12/25/23 23:07 67 18 119/56 95 Nasal Cannula 2 12/25/23 21:57 67 18 126/57 95 Nasal Cannula 2 Intake & Output/Weight 08/1112/25/23 12/26/23 12/27/23 06:59 06:59 06:59 06:59 Intake Total 178 / 178 Balance 178 / 178 Weight 84.368 kg Vitals Last Vital Signs Temp 97.6 F 12/26/23 07:06 Pulse 65 12/26/23 07:06 Resp 16 12/26/23 07:06 BP 139/78 12/26/23 07:06 Pulse Ox 97 12/26/23 07:06 O2 Del Method Nasal Cannula 12/26/23 07:06 O2 Flow Rate 2 12/25/23 23:07 TS Medications Medications Acetaminophen (Acetaminophen 325 Mg Tablet) 650 mg PO Q6H PRN PRN Reason: Mild/Mod Pain Or Temp >/= 101 Aspirin (Aspirin 81 Mg Ec Tablet) 81 mg PO DAILY [facility] Last Admin: 12/26/23 09:10 Dose: 81 mg Atorvastatin Calcium (Atorvastatin 40 Mg Tablet) 40 mg PO BEDTIME LI Calcium Carbonate (Calcium Carbonate 500 Mg Chew Tablet) 500 mg PO DAILY LI Last Admin: 12/26/23 09:11 Dose: 500 mg Clopidogrel Bisulfate (Clopidogrel 75 Mg Tablet) 75 mg PO BEDTIME LI Gabapentin (Gabapentin 300 Mg Capsule) 600 mg PO BEDTIME LI Glucagon (Glucagon 1 Mg/Ml Kit 1 Ml) 1 mg IM ONCE PRN; Protocol PRN Reason: Adult Acute Hypoglycemia Nursing Prot. Heparin Sodium (Porcine) (Heparin 5,000 Unit/Ml Inj 1 Ml) 0 unit IVP PRN PRN; Protocol PRN Reason: Heparin Weight Based Protocol -Subsequent Bolus Heparin Sodium/Sodium Chloride (Heparin Drip) 25,000 unit in 500 mls @ 0 mls/hr IV CONT LI; Protocol Last Titration: 12/26/23 08:05 Dose: 11.26 unit/kg/hr, 19 mls/hr Dextrose (D5w) 500 mls @ 0 mls/hr IV ONCE PRN; Protocol PRN Reason: Adult Acute Hypoglycemia Prot Dextrose (D10w) 125 mls @ 750 mls/hr IV PRN PRN; Protocol PRN Reason: Adult Acute Hypoglycemia Nursing Protocol Dextrose (D10w) 250 mls @ 1,000 mls/hr IV PRN PRN; Protocol PRN Reason: Adult Acute Hypoglycemia Nursing Protocol Insulin Glargine (Insulin Glargine 100 Units/1 Ml) 20 unit SUBCUT DAILY@17 LI Insulin Human Lispro (Insulin Lispro 100 Unit/1 Ml) 0 unit SUBCUT WM&BEDTIME [facility]; Protocol Last Admin: 12/26/23 09:11 Dose: 10 unit Insulin Human Lispro (Insulin Lispro 100 Unit/1 Ml) 0 unit SUBCUT WM&BEDTIME [facility]; Protocol Isosorbide Mononitrate (Isosorbide Mononitrate Er 30 Mg Tablet) 30 mg PO BEDTIME [facility] Morphine Sulfate (Morphine 4 Mg/Ml Sdv 1 Ml) 2 mg IVP Q4H PRN PRN Reason: SEVERE PAIN Nitroglycerin (Nitroglycerin 0.4 Mg Sublingual Tablet) 0.4 mg SUBLINGUAL Q5M PRN PRN Reason: CHEST PAIN Ondansetron HCl (Ondansetron 2 Mg/Ml Sdv 2 Ml) 4 mg IVP Q8H PRN PRN Reason: vomiting, or N/V if npo Ondansetron HCl (Ondansetron 4 Mg Tablet) 4 mg PO Q8H PRN PRN Reason: NAUSEA Ranolazine (Ranolazine (12hr) 500 Mg Tablet) 500 mg PO BID [facility] Last Admin: 12/26/23 09:10 Dose: 500 mg Tramadol HCl (Tramadol 50 Mg Tablet) 100 mg PO BEDTIME LI Discontinued Medications Aspirin (Aspirin 81 Mg Chew Tablet) 324 mg PO NOW ONE Stop: 12/25/23 23:00 Last Admin: 12/25/23 23:06 Dose: 324 mg Enoxaparin Sodium (Enoxaparin 80 Mg/0.8 Ml Syringe) 80 mg SUBCUT ONCE ONE Stop: 12/25/23 23:38 Heparin Sodium (Porcine) (Heparin 5,000 Unit/Ml Inj 1 Ml) 0 unit IVP ONCE ONE; Protocol Stop: 12/25/23 00:31 Last Admin: 12/26/23 00:40 Dose: 4,200 unit Insulin Human Regular (Insulin Regular-Human 100 Units/1 Ml) 12 unit 0.15 unit/kg (12 unit) IVP ONCE ONE Stop: 12/25/23 23:38 Last Admin: 12/26/23 00:45 Dose: Not Given Isosorbide Mononitrate (Isosorbide Mononitrate Er 30 Mg Tablet) 30 mg PO DAILY [facility] Last Admin: 12/26/23 09:19 Dose: Not Given Sodium Polystyrene Sulfonate (Sodium Polystyrene Sulfonate 15 Gm/60 Ml Btl) 15 gm PO ONCE ONE Stop: 12/26/23 08:10 Last Admin: 12/26/23 09:19 Dose: Not Given Allergies No Known Allergies Allergy (Verified 12/25/23 20:41) Home Medications gabapentin 600 mg tablet 600 mg PO BEDTIME 05/28/19 [History Confirmed 12/26/23] multivitamin 1 tab PO BEDTIME 09/19/20 [History Confirmed 12/26/23] ascorbic acid (vitamin C) 1,000 mg tablet (Vitamin C) 1,000 mg PO DAILY 04/14/22 [History Confirmed 12/26/23] calcium carbonate 500 mg PO DAILY 08/29/23 [History Confirmed 12/26/23] insulin degludec 200 unit/mL (3 mL) subcutaneous pen (Tresiba FlexTouch U-200 insulin) 30 unit SUBCUT DAILY@17 08/29/23 [History Confirmed 12/26/23] tramadol 50 mg tablet 100 mg PO BEDTIME 08/29/23 [History Confirmed 12/26/23] isosorbide mononitrate 30 mg tablet,extended release 24 hr 30 mg PO DAILY #30 tabs 09/02/23 [Rx Confirmed 12/26/23] aspirin 81 mg tablet,delayed release 81 mg PO DAILY 30 days #30 tabs 12/25/23 [Rx Confirmed 12/26/23] atorvastatin 40 mg tablet 40 mg PO BEDTIME 30 days #30 tabs 12/25/23 [Rx Confirmed 12/26/23] clopidogrel 75 mg tablet 75 mg PO BEDTIME 30 days #30 tabs 12/25/23 [Rx Confirmed 12/26/23] prednisone 20 mg tablet 40 mg (2 x 20 mg) PO DAILY 3 days #6 tabs 12/25/23 [Rx Confirmed 12/26/23] ranolazine 500 mg tablet,extended release,12 hr 500 mg PO BID 30 days #60 tabs 12/25/23 [Rx Confirmed 12/26/23] Discharge Plan Discharge Patient Disposition: Xfer Other Condition: Stable Prescriptions: No Action gabapentin 600 mg tablet 600 mg PO BEDTIME multivitamin Tablet 1 tab PO BEDTIME ascorbic acid (vitamin C) [Vitamin C] 1,000 mg Tablet 1,000 mg PO DAILY tramadol 50 mg tablet 100 mg PO BEDTIME calcium carbonate 500 mg calcium (1,250 mg) Tablet 500 mg PO DAILY insulin degludec [Tresiba FlexTouch U-200] 200 unit/mL (3 mL) insulin pen 30 unit SUBCUT DAILY@17 isosorbide mononitrate 30 mg tablet extended release 24 hr 30 mg PO DAILY Qty: 30 0RF ranolazine 500 mg Tablet Extended Release 12 Hr 500 mg PO BID 30 Days Qty: 60 0RF atorvastatin 40 mg tablet 40 mg PO BEDTIME 30 Days Qty: 30 0RF clopidogrel 75 mg tablet 75 mg PO BEDTIME 30 Days Qty: 30 0RF aspirin 81 mg Tablet,Delayed Release (Dr/Ec) 81 mg PO DAILY 30 Days Qty: 30 0RF prednisone 20 mg Tablet 40 mg PO DAILY 3 Days Qty: 6 0RF Referrals: Antonio Delgado MD [Primary Care Provider] - Patient Instructions: Opioid Safety Transfer Attestations Time Spent in Transfer Care: greater than 30 min Status at Transfer: Cognitive status at transfer: cognitively intact; Behavioral status at transfer: cooperative; Quality Metrics Clinical Quality Measures [ No reported AMI, CVA or VTE this stay] Coding Level of Care Code Acute Code for Chg Fwd Diagnoses Essential (primary) hypertension I10 Elevated brain natriuretic peptide (BNP) level R79.89 CAD (coronary artery disease) I25.10 Dyslipidemia E78.5 Type 2 diabetes mellitus without complications E11.9 Hyperkalemia E87.5 Hyperglycemia R73.9
[2023-12-29] MEDS: enoxaparin 80 mg/0.8 mL Syringe SUBCUT ×2 (13:27→23:50)
[2023-12-29] MEDS: insulin lispro 100 unit/1 mL SUBCUT ×2 (13:28→17:38)
[2023-12-29 17:02] LABS: Glucose Point of Care 376 mg/dL (70-110)
[2023-12-29] MEDS: insulin glargine 100 units/1 mL 10 UNIT SUBCUT (17:38)
--- NOTE | 2023-12-29 18:15 | PC.NURSE ---
Called report to Pooja Gomez at ph#[phone] and gave to Shyanne Lemos RN.
[2023-12-29] MEDS: fixodent 39 gm Tube 1 APPLIC DENTAL (19:21)
[2023-12-29] MEDS: clopidogrel 75 mg Tablet PO (21:25)
[2023-12-29] MEDS: atorvastatin 40 mg Tablet PO (21:26)
[2023-12-29] MEDS: gabapentin 300 mg Capsule 600 MG PO (21:26)
[2023-12-29] MEDS: TRAMadol 50 mg Tablet 100 MG PO (21:26)
[2023-12-29] MEDS: isosorbide mononitrate ER 30 mg Tablet PO (21:26)
[2023-12-30] VITALS (87 sets, daily range): BP systolic 150–168; BP diastolic 71–90; PULSE 63–77; RESP 14–24; TEMP 36.7; O2SAT 85–99; BMI 34.4
--- NOTE | 2023-12-30 00:26 | PC.NURSE ---
[facility] transfer center called to make sure that patient was still coming to their facility, stated they needed to know ETA because the bed could not be held overnight. Called and spoke to [facility], they were unable to give exact ETA.
--- NOTE | 2023-12-30 07:18 | PC.NURSE ---
[facility] arrived at [facility], transportation was cancelled due to lack of available ambulance crews.
[2023-12-30 07:49] LABS: Glucose Point of Care 128 mg/dL (70-110)
--- NOTE | 2023-12-30 07:56 | PC.NURSE ---
NUrse called Pooja Abreufield at [phone]. Confirmed we still have a bed. NUrse attempted to call [facility] ambulance at [phone] with no answer, tried calling again 10 minutes later, no answer. Tried calling and went through automated borematic operator to reach [facility] and it rang until voicemail. Will continue to attempt to call.
[2023-12-30] MEDS: ranolazine (12HR) 500 mg Tablet PO (08:05)
[2023-12-30] MEDS: calcium carbonate 500 mg Chew Tablet PO (08:05)
[2023-12-30] MEDS: aspirin 81 mg EC Tablet PO (08:05)
--- NOTE | 2023-12-30 08:29 | PC.NURSE ---
Nurser recieved a call form [place] with [facility]. THey have a truck available and it is inbound. Nurse called bunny, Spoke to Sanjuana RN. Verified that the bed [id number] is still available for this patient. Nurse gave updated report to Sanjuana, ambulance will be here shortly and it is a 1.[address] to [place].
--- NOTE | 2023-12-30 08:47 | PC.NURSE ---
[facility] showed up. Gave updated report. verified no belongings left in room. Offered to called family for the patient but she said she already called via personal cell and let them know she is being transferred.
== END 2023-12-30 09:00 | disposition other institution (70) ==
LOC: ER 22:57 → CSU 23:18
PROVIDERS: Internal Medicine; Admitting Provider Internal Medicine; Emergency Provider Emergency Medicine; PCP Family Medicine; Visit Provider Internal Medicine
DX: I21.4 Non-ST elevation (NSTEMI) myocardial infarction (principal); I25.10 Atherosclerotic heart disease of native coronary artery without angina pectoris; I10 Essential (primary) hypertension; R79.89 Other specified abnormal findings of blood chemistry; E78.5 Hyperlipidemia, unspecified; E87.5 Hyperkalemia; E11.65 Type 2 diabetes mellitus with hyperglycemia; Z95.1 Presence of aortocoronary bypass graft; Z75.1 Person awaiting admission to adequate facility elsewhere; Z99.81 Dependence on supplemental oxygen; I16.0 Hypertensive urgency; Z79.4 Long term (current) use of insulin; J96.91 Respiratory failure, unspecified with hypoxia
CPT/HCPCS: 36415; 36416; 71045; 71250; 80048; 80053; 82962; 83036; 83735; 83880; 84145; 84484; 85025; 85730; 93005; 96365; 96366; 96372; 96375; 99285; G0378; J1644; J1650; J1815

== ENCOUNTER 2024-03-12 23:40 | Inpatient (IN) | payer MEDICARE, SELFPAY ==
--- NOTE | 2024-03-12 23:44 | XRR_ITS ---
PROCEDURE INFORMATION: Exam: XR Chest Exam date and time: 03/13/2024 12:27 AM Age: 83 years old Clinical indication: Shortness of breath; Prior surgery; Surgery date: 6+ months; Surgery type: Pacemaker, heart TECHNIQUE: Imaging protocol: Radiologic exam of the chest. Views: 1 view. COMPARISON: 1. CT chest wo con [id number] 12/25/2023 9:02 PM 2. CR XR chest 1V portable [id number] 12/25/2023 8:47 PM FINDINGS: Tubes, catheters and devices: A couple monitor leads project over the chest. Lungs: Bibasilar atelectasis right greater than left. Pleural spaces: No significant costophrenic angle blunting. No pneumothorax. Heart/Mediastinum: Heart size appears prominent but is likely exaggerated by the portable AP technique. Partially obscured cardiac borders. Prior CABG. Vasculature: Atherosclerotic tortuosity and calcification of the thoracic aorta. Diaphragm: Right hemidiaphragm elevation. Bones/joints: Sternotomy wires are seen. Multiple old left rib fractures. Soft tissues: Large body habitus. XR/XR chest 1V portable [id number] IMPRESSION: 1. Bibasilar atelectasis right greater than left. 2. Atherosclerotic vascular disease and prior CABG.
[2024-03-12 23:46] VITALS: BP 140/93; PULSE 69; RESP 42; O2SAT 80; BMI 35.2
[2024-03-12 23:50] VITALS: PULSE 64; RESP 28; O2SAT 99
[2024-03-12] MEDS: FUROsemide 10 mg/mL SDV 10mL 80 MG IVP (23:53)
[2024-03-12 23:59] LABS: ABG PCO2 52.8 mmHg (35-45); ABG PH Result 7.29 (7.35-7.45); Alveolar-Arterial Oxygen Gradi 27.9 mmHg (5-10); Arterial Blood Gas Hematocrit 34.3 % (37-47); Base Excess ABG -1.6 mmol/L (-2.0-2.0); Blood Gas Sample Site Brachial, right; Blood Gas Sample Type Arterial; Carboxyhemoglobin 0.6 %THgb (0.4-20.1); HCO3 ABG 25.4 mmol/L (22-26); HGB O2 Sat 96.4 % (95-100); Ionized Calcium Level - ABG 1.2 mmol/L (1.1-1.4); Methemoglobin 1.2 % (0.4-1.5); Oxygen Device BIPAP; Oxygen Saturation ABG 98.2; PO2 FiO2 Ratio Arterial Blood 203; Potassium Level - ABG 4.5 mmol/L (3.5-5.0); Total Hemoglobin 11.2 g/dL (12-16)
[2024-03-13] VITALS (14 sets, daily range): BP systolic 129–148; BP diastolic 52–93; PULSE 55–74; RESP 14–28; TEMP 36.7–37.1; O2SAT 94–100
--- NOTE | 2024-03-13 | ED_ITS ---
HPI - SOB/Dyspnea 2 General: Chief Complaint: Shortness of Breath/Dyspnea Stated Complaint: RESP. DITRESS Time Seen by Provider: 03/12/24 23:44 History of Present Illness: HPI Narrative: 83-year-old female with coronary artery disease history of CABG who was recently admitted to the hospital and transferred to [place] after having a non- STEMI. She presents today with hypoxemic respiratory failure by ambulance. Apparently fairly acutely earlier this evening she developed shortness of breath. EMS reports O2 sats in the low 80s and she was quite hypertensive. She received nitroglycerin and labetalol. On presentation here she is very dyspneic and was placed on a BiPAP immediately. She was on a nonrebreather and O2 sats were around 80. 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 Patient was readmitted 12/20 for her symptoms of shortness of breath and left- sided shoulder pain, 12/21 Repeat angiogram was same as last coronary angiogram. GILLILAND to LAD is patent. Has septal and diagonal arteries coming off of occluded LAD that are patent. Ostial to mid left circumflex artery is subtotally occluded with heavy calcification. Cardiology was consulted, who gave the option to the patient to go for arthrectomy and revascularization attempt at our hospital versus tertiary center where vascular backup is available, patient decided to get this procedure done at a tertiary center. Patient has been accepted at [facility] Dr. Loza Related Data Home Medications Medication Instructions Recorded Confirmed gabapentin 600 mg tablet 600 mg PO BEDTIME 05/28/19 12/26/23 multivitamin 1 tab PO BEDTIME 09/19/20 12/26/23 ascorbic acid (vitamin C) 1,000 mg 1,000 mg PO DAILY 04/14/22 12/26/23 tablet (Vitamin C) calcium carbonate 500 mg PO DAILY 08/29/23 12/26/23 insulin degludec 200 unit/mL (3 30 unit SUBCUT DAILY@17 08/29/23 12/26/23 mL) subcutaneous pen (Tresiba FlexTouch U-200 insulin) tramadol 50 mg tablet 100 mg PO BEDTIME 08/29/23 12/26/23 Previous Rx's Medication Instructions Recorded isosorbide mononitrate 30 mg 30 mg PO DAILY #30 tabs 09/02/23 tablet,extended release 24 hr aspirin 81 mg tablet,delayed 81 mg PO DAILY 30 days #30 tabs 12/25/23 release atorvastatin 40 mg tablet 40 mg PO BEDTIME 30 days #30 tabs 12/25/23 clopidogrel 75 mg tablet 75 mg PO BEDTIME 30 days #30 tabs 12/25/23 Allergies Allergy/AdvReac Type Severity Reaction Status Date / Time No Known Allergies Allergy Verified 03/12/24 23:48 Review of Systems 2 Narrative: Constitutional symptoms: Negative except as documented in HPI. Skin symptoms: Negative except as documented in HPI. Eye symptoms: Negative except as documented in HPI. ENMT symptoms: Negative except as documented in HPI. Respiratory symptoms: Negative except as documented in HPI. Cardiovascular symptoms: Negative except as documented in HPI. Gastrointestinal symptoms: Negative except as documented in HPI. Genitourinary symptoms: Negative except as documented in HPI. Musculoskeletal symptoms: Negative except as documented in HPI. Neurologic symptoms: Negative except as documented in HPI. Psychiatric symptoms: Negative except as documented in HPI. Endocrine symptoms: Negative except as documented in HPI. PFSH ED 2 PFSH: Medical History NSTEMI (non-ST elevated myocardial infarction) Hyperglycemia Hyperkalemia Elevated brain natriuretic peptide (BNP) level Hyperglycemia Hypoxic respiratory failure Dyslipidemia Contrast-induced nephropathy Type 2 diabetes mellitus without complications CAD (coronary artery disease) Acute [place] Essential (primary) hypertension Surgical History Hx of hysterectomy Hx of CABG Family History Unknown No problems noted. Social History Smoking and tobacco/nicotine status: never used tobacco/nicotine Alcohol intake: never Substance/Drug Use: never Physical Exam 2 Narrative: EXAM NARRATIVE: General: Alert, no acute distress. Skin: Warm, diaphoretic. Head: Normocephalic, atraumatic. Neck: Supple, trachea midline. Eye: Extraocular movements are intact. Ears, nose, mouth and throat: Oral mucosa moist. Cardiovascular: Regular rate and rhythm, Normal peripheral perfusion. Respiratory: coarse, scattered wheeze, severe increased work of breathing. tachypnea, Gastrointestinal: Soft, Nontender, Non distended, Normal bowel sounds. Musculoskeletal: Normal ROM, no deformity. Neurological: Alert and oriented to person, place, time, and situation, No focal neurological deficit observed. Psychiatric: Cooperative, appropriate mood & affect. Course 2 Vital Signs: Vital signs: Vital Signs Pulse Rate 59 L 03/13/24 01:07 Respiratory Rate 16 03/13/24 01:07 Blood Pressure 140/93 03/13/24 01:07 Pulse Oximetry 97 03/13/24 01:07 Oxygen Delivery Me thod BiPAP 03/13/24 01:07 Fraction of Inspir ed Oxygen 55 03/13/24 00:10 MDM - SOB/Dyspnea Medical Decision Making Differential diagnosis for patient with shortness of breath includes but is not limited to and based on the above HPI, review of systems and physical exam: Pneumonia. Bronchitis. Asthma or COPD with acute exacerbation. Acute coronary syndrome / NC. Pulmonary embolism. Anxiety. Congestive heart failure. Viral infections including influenza and Covid-19. Atrial fibrillation. Anxiety. Pleural effusion. Pneumothorax. Orders placed to evaluate differential diagnosis based on the above differential, HPI and physical exam Patient seen pretty obviously in congestive heart failure. She was tripoding. She was hypoxemic. Lung sounded like heart failure. She was placed immediately on a BiPAP and improved rapidly. EKG: Time 2348. Rate 68. Normal sinus rhythm, nonspecific ST changes., no ectopy, incomplete right bundle branch block, This was reviewed and interpreted by myself the ER physician at 2352. Chest x-ray: Bibasilar atelectasis. Vascular disease. I believe she has some early congestive failure and cardiomegaly. This was reviewed and interpreted by myself the emergency room physician. I also reviewed the radiology report. Lab Review: Laboratory results were reviewed and interpreted by myself the emergency room physician. Mild leukocytosis with a white count of 12. Hemoglobin 11.8. BUN/creatinine are 21 and 0.9. Her pro BNP is quite elevated over 7000. Initial troponin is elevated at 324. Repeat is 347 with a delta of 24. I reviewed the patient's medical record. Reexamination: Patient appears much more comfortable now she is on BiPAP. She is communicating through BiPAP. Work of breathing is much improved. Respirations went from 42- 16. No altered mental status. No focal motor deficits. She has had no chest pain since she has been here. Consultation: I spoke with Dr. Vázquez who is on-call for cardiology. He recommends a heparin bolus and drip. He agrees with diuresis and BiPAP. He will see the patient tomorrow. Consultation: I spoke with Dr. Lee who is on-call for the hospitalist service who agrees to admission. Assessment and plan: Flash pulmonary edema Malignant hypertension Acute hypoxemic respiratory failure Non-ST elevation myocardial infarction Coronary artery disease ?80 mg IV Lasix, BiPAP, heparin drip. -I discussed the patient with the hospitalist on-call who is admitting the patient. - Discussed findings and plan with patient. Answered any questions. - All laboratory values were reviewed and interpreted personally by myself, the ER physician - All imaging was reviewed and interpreted personally by myself, the ER physician. - Evaluation and treatment of this problem were appropriate in the emergency setting Critical care -I spent a total of >35 minutes of critical care time managing the patient, independent of any other practitioner. -The time involved in the performance of separately reportable procedures was not counted towards critical care time. Lab Data 03/12/24 23:52 03/12/24 23:52 Labs/Radiology: Radiology Impressions Chest X-Ray 03/12/24 23:44 IMPRESSION: 1. Bibasilar atelectasis right greater than left. 2. Atherosclerotic vascular disease and prior CABG. Laboratory Results WBC 12.08 10^3/uL (3.29-11.43) H 03/12/24 23:52 RBC 4.31 10^6/uL (3.85-5.65) 03/12/24 23:52 Hgb 11.80 g/dL (11.27-16.99) 03/12/24 23:52 Hct 38.5 % (36-47) 03/12/24 23:52 MCV 89.3 fl (85-98) 03/12/24 23:52 MCH 27.4 pg (27-33) 03/12/24 23:52 MCHC 30.6 g/dL (30-55) 03/12/24 23:52 RDW 13.2 % (12.1-15.1) 03/12/24 23:52 Plt Count 331 10^3/cmm (157-399) 03/12/24 23:52 MPV 11.8 fL (7.4-10.4) H 03/12/24 23:52 Neut % (Auto) 66.9 % 03/12/24 23:52 Lymph % (Auto) 21.8 % 03/12/24 23:52 [place] % (Auto) 7.8 % 03/12/24 23:52 Eos % (Auto) 2.5 % 03/12/24 23:52 Baso % (Auto) 0.3 % 03/12/24 23:52 Neut # (Auto) 8.09 10^3/uL (1.8-7.7) H 03/12/24 23:52 Lymph # (Auto) 2.6 10^3/uL (0.8-4.8) 03/12/24 23:52 [place] # (Auto) 0.9 10^3/uL (0.2-0.9) 03/12/24 23:52 Eos # (Auto) 0.3 10^3/uL (0.0-0.8) 03/12/24 23:52 Baso # (Auto) 0.0 10^3/uL (0.0-0.1) 03/12/24 23:52 Nucleated RBC % (auto) 0 % 03/12/24 23:52 Nucleated RBCs # 0.0 /100WBC 03/12/24 23:52 PT 14.50 SECONDS (12.1-14.9) 03/12/24 23:52 INR 1.09 (0.8-1.2) 03/12/24 23:52 APTT 21.7 SECONDS (23.9-36.7) L 03/12/24 23:52 Specimen Type Arterial 03/12/24 23:49 Sample Site Brachial, right 03/12/24 23:49 ABG pH 7.29 (7.35-7.45) L 03/12/24 23:49 ABG pCO2 52.8 mmHg (35-45) H 03/12/24 23:49 ABG pO2 112.0 mmHg (80.0-100.0) H 03/12/24 23:49 ABG PO2/FiO2 Ratio 203 03/12/24 23:49 ABG HCO3 25.4 mmol/L (22-26) 03/12/24 23:49 ABG O2 Saturation 98.2 03/12/24 23:49 ABG Base Excess -1.6 mmol/L (-2.0-2.0) 03/12/24 23:49 Tanner Test N/a 03/12/24 23:49 A-a O2 Gradient 27.9 mmHg (5-10) H 03/12/24 23:49 Hematocrit 34.3 % (37-47) L 03/12/24 23:49 Hgb O2 Saturation 96.4 % (95-100) 03/12/24 23:49 Carboxyhemoglobin 0.6 %THgb (0.4-20.1) 03/12/24 23:49 Methemoglobin 1.2 % (0.4-1.5) 03/12/24 23:49 Total Hemoglobin 11.2 g/dL (12-16) L 03/12/24 23:49 Sodium 146.0 mmol/L (131-143) H 03/12/24 23:49 Potassium 4.5 mmol/L (3.5-5.0) 03/12/24 23:49 Glucose 282.0 mg/dL (70-115) H 03/12/24 23:49 Ionized Calcium 1.2 mmol/L (1.1-1.4) 03/12/24 23:49 O2 Delivery Device Bipap 03/12/24 23:49 FiO2 55.0 % 03/12/24 23:49 Business Team Leader ID [email or web address] 03/12/24 23:49 Sodium 142 mmol/L (136-145) 03/12/24 23:52 Potassium 4.7 mmol/L (3.5-5.1) 03/12/24 23:52 Chloride 107 mmol/L (98-107) 03/12/24 23:52 Carbon Dioxide 26 mmol/L (22-29) 03/12/24 23:52 Anion Gap 13.7 (5-19) 03/12/24 23:52 BUN 21 mg/dL (8-23) 03/12/24 23:52 Creatinine 0.9 mg/dL (0.5-0.9) 03/12/24 23:52 GFR Calculation Not Reportable 03/12/24 23:52 Glucose 299 mg/dL (65-115) H 03/12/24 23:52 Calculated Osmolality 308 mOsm/kg (285-295) H 03/12/24 23:52 Lactic Acid 2.1 mmol/L (0.5-2.2) 03/12/24 23:52 Lactic Acid (Sepsis) 1.4 mmol/L (0.5-2.2) 03/13/24 01:40 Calcium 8.4 mg/dL (8.5-10.5) L 03/12/24 23:52 Total Bilirubin 0.2 mg/dL (0.15-1.2) 03/12/24 23:52 AST 20 U/L (0-32) 03/12/24 23:52 ALT 11 U/L (0-33) 03/12/24 23:52 Alkaline Phosphatase 128 U/L (35-105) H 03/12/24 23:52 Troponin T Baseline 324 ng/L (0-10) H* 03/12/24 23:52 Troponin T 120 Minute 347.9 ng/L (0-10) H 03/13/24 01:40 Delta Troponin T 23.9 ABS# (0-10) H* 03/13/24 01:40 NT-Pro-B Natriuret Pep 7268 pg/mL (0-450) H 03/12/24 23:52 Total Protein 7.0 g/dL (6.6-8.7) 03/12/24 23:52 Albumin 3.8 g/dL (3.5-5.2) 03/12/24 23:52 Globulin 3.2 g/dL (1.3-4.6) 03/12/24 23:52 Coronavirus (PCR) Negative (Negative) 03/12/24 23:50 Influenza A (PCR) Negative (Negative) 03/12/24 23:50 Influenza Type B (PCR) Negative (Negative) 03/12/24 23:50 RSV (PCR) Negative (Negative) 03/12/24 23:50 All radiology interpretation(s) finalized by discharge Discharge Plan Discharge Patient Disposition: Admitted As Inpatient Clinical Impression: Flash pulmonary edema, Acute hypoxemic respiratory failure, Malignant hypertension, Non-ST elevated myocardial infarction, Coronary artery disease Condition: Stable Coding Level of Care Code ED Social Services Counselor for Akosua Vasquez
[2024-03-13] MEDS: albuterol 2.5 mg/3 mL Neb INHALATION (00:10)
[2024-03-13] MEDS: ipratropium-albuterol 3 mL Neb INHALATION (00:10)
[2024-03-13 00:16] LABS: Basophils % 0.3 %; Eosinophils # 0.3 10^3/uL (0.0-0.8); Eosinophils % 2.5 %; Hematocrit 38.5 % (36-47); Lymphocytes # 2.6 10^3/uL (0.8-4.8); Lymphocytes % 21.8 %; Mean Corpuscular HGB Conc 30.6 g/dL (30-55); Mean Corpuscular Hemoglobin 27.4 pg (27-33); Mean Corpuscular Volume 89.3 fl (85-98); Mean Platelet Volume 11.8 fL (7.4-10.4); Monocytes # 0.9 10^3/uL (0.2-0.9); Monocytes % 7.8 %; Neutrophils # 8.09 10^3/uL (1.8-7.7); Neutrophils % 66.9 %; Nucleated Red Blood Cells % 0 %; Platelet Count 331 10^3/cmm (157-399); Red Blood Count 4.31 10^6/uL (3.85-5.65); Red Cell Distribution Width 13.2 % (12.1-15.1); White Blood Count 12.08 10^3/uL (3.29-11.43)
[2024-03-13 00:17] LABS: Alanine Aminotransferase 11 U/L (0-33); Albumin Level 3.8 g/dL (3.5-5.2); Alkaline Phosphatase 128 U/L (35-105); Anion Gap 13.7 (5-19); Aspartate Amino Transferase 20 U/L (0-32); Blood Urea Nitrogen 21 mg/dL (8-23); Calcium 8.4 mg/dL (8.5-10.5); Carbon Dioxide 26 mmol/L (22-29); Chloride 107 mmol/L (98-107); Creatinine Clr Calc Pharmacy 46.4033; Globulin 3.2 g/dL (1.3-4.6); Glucose 299 mg/dL (65-115); Osmolality Calculated 308 mOsm/kg (285-295); Potassium 4.7 mmol/L (3.5-5.1); Sodium 142 mmol/L (136-145); Total Bilirubin 0.2 mg/dL (0.15-1.2)
[2024-03-13 00:18] LABS: Lactic Sepsis W/Reflex 2.1 mmol/L (0.5-2.2)
[2024-03-13 00:34] LABS: Covid PCR NEGATIVE (Negative); Influenza A NEGATIVE (Negative); Influenza B NEGATIVE (Negative); Respiratory Syncytial Virus Ce NEGATIVE (Negative)
--- NOTE | 2024-03-13 01:07 | ECG_ITS ---
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 Measurements Intervals [place] Rate: 68 P: 46 TX: 154 QRS: -18 QRSD: 107 T: 128 QT: 422 QTc: 451 Interpretive Statements SINUS RHYTHM WITH SINUS ARRHYTHMIA INCOMPLETE RIGHT BUNDLE BRANCH BLOCK ST DEVIATION AND MODERATE T-WAVE ABNORMALITY, CONSIDER LATERAL ISCHEMIA Compared to ECG 12/26/2023 03:15:15 T-wave abnormality now present Possible ischemia now present Electronically Signed On 03-13-2024 18:13:08 CDT by Leigh Torres M.D. [email or web address]
[2024-03-13 01:29] LABS: NT Pro B Type Natriuretic Pept 7268 pg/mL (0-450)
[2024-03-13 01:42] LABS: Reflex Lactate Order REFLEX LACTIC ORDERD
[2024-03-13 01:48] LABS: Troponin(5th) Baseline 324 ng/L (0-10)
[2024-03-13 02:07] LABS: Lactic Acid level (Lactate) 1.4 mmol/L (0.5-2.2)
[2024-03-13 02:10] LABS: Troponin 5 2HR 347.9 ng/L (0-10); Troponin 5 2HR Delta 23.9 ABS# (0-10)
[2024-03-13 02:22] LABS: INR 1.09 (0.8-1.2)
[2024-03-13 02:23] LABS: Partial Thromboplastin Time 21.7 SECONDS (23.9-36.7)
[2024-03-13] MEDS: heparin 5,000 unit/mL INJ 1 mL 4000 UNIT IVP (02:56)
[2024-03-13] MEDS: heparin drip 25,000 UNIT/500 ML PREMIX 19.6 UNIT IV (02:57)
--- NOTE | 2024-03-13 03:07 | ECG_ITS ---
[facility] Test Date: 2024-03-13 Pat Name: Sally Henderson Department: Room: Gender: Female Stitchdowns Toe Former: : 1940 Requested By: Linnette Benavidez Order Number: [id number] Leonora MD: Leigh Torres M.D. Measurements Intervals [place] Rate: 56 P: 45 MO: 153 QRS: -24 QRSD: 114 T: 159 QT: 475 QTc: 459 Interpretive Statements SINUS BRADYCARDIA WITH OCCASIONAL SUPRAVENTRICULAR PREMATURE COMPLEXES BORDERLINE LEFT AXIS DEVIATION RIGHT BUNDLE BRANCH BLOCK MODERATE T-WAVE ABNORMALITY, CONSIDER LATERAL ISCHEMIA Compared to ECG 03/12/2024 23:48:32 Right bundle-branch block now present Electronically Signed On 03-14-2024 17:22:45 CDT by Leigh Torres M.D. [email or web address]
--- NOTE | 2024-03-13 06:44 | PM.HP ---
Providers/Chief Complaint Primary Care Provider: Antonio Delgado MD Chief Complaint: RESP. DITRESS History of Present Illness Sally Henderson is a 83 year old female seen in December with NSTEMI. She has an extensive cardiac history of coronary artery disease status post CABG with patent GILLIL[place] to LAD, occluded SVG grafts, RCA SPA THERAPIST and subtotal occlusion of left circumflex artery. She was just discharged home yesterday after she had NSTEMI. Culprit lesion as [place] left circumflex artery subtotal occlusion. And came back with feeling worsening shortness of breath and chest discomfort. Initial troponin was 570 which trended up to 770. BNP is over 6000. EKG shows T wave inversions in lateral and anterolateral leads. Echo done last week showed LV systolic function is normal with hypokinesis of lateral parkinson. She had been pursuing medical therapy after shared decision making, but did poorly and was readmitted in December. She was held up by lack of beds but eventually transferred to [facility] and finally to [place] where she was told that her hospitalization had been mismanaged and her heart was too bruised to intervene. She was told to come back at a later time. Her son called and she relates that [place] told her to go to [facility]. Patient made appointment at [facility] and when she got there they said 'Why are you here? And she says she was sent home again. She states that there she has been until she was watching Jean Mariedemetria Carvajal today and just after that as she was getting ready go to bed she could not breathe. She denies having chest pain Patient came in on nonrebreather 80% saturations was put on BiPAP improving to 99%. She was comfortable on BiPAP EKG shows right bundle branch block which has been present for greater than a year. She had troponin of 300. She has had hypertension, pulmonary edema. I am told she did not tolerate initial trial of CPAP in the ambulance but has done well with BiPAP in the emergency department. Dr. Burton was consulted by Dr. Thurman, recommended heparin drip and plans to see the patient later this morning. Patient tells me that her left ankle does swell but is not painful. She is not sure how long it has been swollen. She denies ultrasound of the leg and she denies ever getting tested for sleep apnea. Medications/Allergies Home Medications Medication Instructions Recorded Confirmed Last Taken Type gabapentin 600 mg tablet 600 mg PO BEDTIME 05/28/19 12/26/23 12/20/23 History multivitamin 1 tab PO BEDTIME 09/19/20 12/26/23 12/20/23 History ascorbic acid (vitamin C) 1,000 mg 1,000 mg PO DAILY 04/14/22 12/26/23 12/20/23 History tablet (Vitamin C) calcium carbonate 500 mg PO DAILY 08/29/23 12/26/23 12/20/23 History insulin degludec 200 unit/mL (3 30 unit SUBCUT DAILY@17 08/29/23 12/26/23 12/20/23 History mL) subcutaneous pen (Tresiba FlexTouch U-200 insulin) tramadol 50 mg tablet 100 mg PO BEDTIME 08/29/23 12/26/23 12/20/23 History isosorbide mononitrate 30 mg 30 mg PO DAILY #30 tabs 09/02/23 12/26/23 12/20/23 Rx tablet,extended release 24 hr aspirin 81 mg tablet,delayed 81 mg PO DAILY 30 days #30 tabs 12/25/23 12/26/23 Unknown Rx release atorvastatin 40 mg tablet 40 mg PO BEDTIME 30 days #30 tabs 12/25/23 12/26/23 Unknown Rx clopidogrel 75 mg tablet 75 mg PO BEDTIME 30 days #30 tabs 12/25/23 12/26/23 Unknown Rx Allergies Allergy/AdvReac Type Severity Reaction Status Date / Time No Known Allergies Allergy Verified 03/12/24 23:48 PFSH Acute PFSH: Medical History NSTEMI (non-ST elevated myocardial infarction) Hyperglycemia Hyperkalemia Elevated brain natriuretic peptide (BNP) level Hyperglycemia Hypoxic respiratory failure Dyslipidemia Contrast-induced nephropathy Type 2 diabetes mellitus without complications CAD (coronary artery disease) Acute [place] Essential (primary) hypertension Surgical History Hx of hysterectomy Hx of CABG Family History Unknown No problems noted. Social History Smoking and tobacco/nicotine status: never used tobacco/nicotine Alcohol intake: never Substance/Drug Use: never Vitals/I&O/Wt Last Vital Signs Pulse 61 03/13/24 06:25 Resp 19 H 03/13/24 06:25 BP 140/93 03/13/24 06:25 Pulse Ox 98 03/13/24 06:25 O2 Del Method Nasal Cannula 03/13/24 06:25 O2 Flow Rate 3 03/13/24 06:25 FiO2 55 03/13/24 00:10 Weight last 48 hrs Weight 81.647 kg Physical Exam Narrative: General Well-developed well-nourished female in no acute cardiopulmonary distress she is on nasal cannula O2 currently skin is nonjaundiced noncyanotic CV regular rate and rhythm Lungs crackles in both bases left greater than right Abdomen positive bowel sounds soft nontender Calves trace edema in the left calf none on the right but the left calf is enlarged versus the right and there is what feels like a cord in the left calf posteriorly it is not tender to palpation Urinary Catheter Management: Huff: Cath Placed During This Visit: yes Urinary Catheter Date of Insertion: 03/12/24 Urinary Catheter Time of Insertion: 23:54 Data 03/12/24 23:52 03/12/24 23:52 Micro: Microbiology 03/13/24 01:37 Blood Culture - Preliminary Blood SPECIMEN COLLECTED 03/13/24 01:40 Blood Culture - Preliminary Blood SPECIMEN COLLECTED A&P Assessment and plan (1) Coronary artery disease: Patient has complicated anatomy and recent convoluted transfer and turndown for intervention on 2 occasions. She states she is running out of PicApp and bed close coming in with her close cut off by EMS. Patient is on a heparin drip and pain-free. Will await her evaluation by Dr. Burton (2) Non-ST elevated myocardial infarction: As above (3) Acute hypoxemic respiratory failure: Patient has been on BiPAP, heparin drip and diuresis with much improvement. (4) Left leg swelling: Will order ultrasound of the left leg to look for DVT Attestations Medical Necessity Statement*: Patient admitted for pulmonary edema and severe hypoxemia. Anticipate greater than 2 midnights Time Spent in Patient Care: 50 minutes spent in evaluation coronation care for this patient today Coding Level of Care Code 41128 Diagnoses Coronary artery disease I25.10 Non-ST elevated myocardial infarction I21.4 Acute hypoxemic respiratory failure J96.01 Left leg swelling M79.89 Time Spent (min) 50
[2024-03-13 06:57] LABS: Troponin 5 6HR 377.2 ng/L (0-10)
[2024-03-13 06:58] LABS: Troponin 5 6HR Delta 53.2 ng/L (0-12)
--- NOTE | 2024-03-13 07:07 | ECG_ITS ---
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 Measurements Intervals [place] Rate: 56 P: 43 MT: 166 QRS: -28 QRSD: 111 T: 169 QT: 465 QTc: 452 Interpretive Statements SINUS BRADYCARDIA BORDERLINE LEFT AXIS DEVIATION [QRS AXIS < -20] RIGHT BUNDLE BRANCH BLOCK [120+ ms QRS DURATION, UPRIGHT V1, 40+ ms S IN I/aVL/V4/V5/V6] LEFT VENTRICULAR HYPERTROPHY AND ST-T CHANGE [VOLTAGE CRITERIA PLUS ST/T ABNORMALITY] Compared to ECG 03/13/2024 03:08:29 No significant change Electronically Signed On 03-13-2024 17:09:31 CDT by Leigh Torres M.D. [email or web address]
--- NOTE | 2024-03-13 09:20 | USCV_ITS ---
Sally Henderson Age: 83 Gender: F : 1940 Exam Date: 03/13/2024 10:09 Ordering Phys: Willem Steward MD Technologist: [place] [facility] [place]: cp BP: 134 / 74 HR: 60 Rhythm: Sinus Technical Quality: MEASUREMENTS (Male / Female) Normal Values 2D ECHO LV Diastolic Diameter PLAX 5.2 cm 4.2 - 5.9 / 3.9 - 5.3 cm IVS Diastolic Thickness 1.1 cm 0.6 - 1.0 / 0.6 - 0.9 cm IVS Systolic Thickness 1.5 cm LVPW Diastolic Thickness 1.1 cm 0.6 - 1.0 / 0.6 - 0.9 cm LVPW Systolic Thickness 1.5 cm LVOT Diameter 2.1 cm LV Ejection Fraction 2D Teich 67.1 % LV Ejection Fraction MOD 4C 46.8 % LV Ejection Fraction MOD 2C 64.5 % LV Ejection Fraction 2C AL 67.1 % LA Diameter 4.7 cm RA Systolic Volume 4C AL 58.2 ml RA Systolic Volume 4C MOD 55.0 ml LA Sys Volume AL 78.6 cm cubed LA Sys Volume Index AL 35.6 cm cubed/m squared Aorta at Sinotubular Diameter 3.2 cm IVC Diameter 2.4 cm M-MODE LA Ao Ratio MM 1.7 AV Cusp Separation MM 1.7 cm DOPPLER AV Peak Velocity 119.0 cm/s LVOT Peak Velocity 83.0 cm/s AV Area Cont Eq vti 2.2 cm squared AV Area Cont Eq pk 2.3 cm squared MV Peak Velocity 121.0 cm/s MV Area PHT 4.6 cm squared Mitral E to A Ratio 3.1 TV Peak Velocity 170.0 cm/s TR Peak Velocity 200.0 cm/s TR Peak Gradient 16.0 mmHg TV Peak E Velocity 117.0 cm/s Right Atrial Pressure 3.0 mmHg Pulmonary Artery Systolic Pressu 19.0 mmHg FINDINGS Left Ventricle Normal left ventricular size, systolic function and wall thickness, with no regional wall motion abnormalities. Estimated LVEF normal 65% Right Ventricle Normal right ventricular size and systolic function. Right Atrium Normal right atrial size. Left Atrium Dilated left atrium Mitral Valve Thickened mitral valve leaflets. Moderate mitral regurgitation. Aortic Valve Thickened aortic valve. No aortic valve stenosis. Trace aortic valve regurgitation. Tricuspid Valve Structurally normal tricuspid valve. Trace tricuspid valve regurgitation. Pulmonic Valve Structurally normal pulmonic valve. Mild pulmonary valve regurgitation. Pericardium No pericardial effusion. Aorta Normal size aortic root and proximal ascending aorta. IVC Mildly dilated IVC with normal respiratory response. CONCLUSIONS Normal LV systolic function. Normal LVEF 65%. Normal RV size and systolic function. Dilated left atrium with moderate mitral regurgitation. Normal right heart and pulmonary pressures. Leigh Torres MD (Electronically Signed) Final Date: 13 March 2024 13:38 S
[2024-03-13] MEDS: aspirin 81 mg EC Tablet PO (10:39)
[2024-03-13] MEDS: pantoprazole 40 mg SDV IVP (10:39)
--- NOTE | 2024-03-13 11:06 | PC.NURSE ---
heparin gtt titration delayed d/t pending PTT results
[2024-03-13 11:10] LABS: Estmated Average Glucose 163; Hemoglobin A1C 7.3 % (4.0-6.0)
[2024-03-13 11:27] LABS: Chol HDL Ratio 2.33 mg/dL (0.0-4.40); Cholesterol 128 mg/dL (0-200); HDL Cholesterol 55 mg/dL (60-100); LDL Cholesterol Calculated 62 mg/dL (50-129); LDL HDL Ratio 1.13 RATIO (0.00-3.22); NT Pro B Type Natriuretic Pept 8205 pg/mL (0-450); Triglycerides 54 mg/dL (0-150)
[2024-03-13 11:44] LABS: Partial Thromboplastin Time 64.3 SECONDS (23.9-36.7)
[2024-03-13] MEDS: heparin drip 25,000 UNIT/500 ML PREMIX 23 UNIT IV (12:04)
[2024-03-13 12:11] LABS: Glucose Point of Care 112 mg/dL (70-110)
--- NOTE | 2024-03-13 12:11 | PC.NURSE ---
during attempt to titrate heparin gtt, this nurse noticed order was non-titratable; per Dr. Steward to switch to weight-based titratable gtt. pt now on correct Heparin gtt, no bolus dose needed.
--- NOTE | 2024-03-13 12:12 | PC.NURSE ---
glucose via fingerstick 112
[2024-03-13] MEDS: potassium chloride ER 20 mEq Tablet PO (13:17)
[2024-03-13] MEDS: bumetanide 0.25 mg/mL SDV 4 mL 1 MG IVP (13:18)
--- NOTE | 2024-03-13 15:00 | PC.NURSE ---
patient states she takes 30 units of lantus per 24 hour period.
--- NOTE | 2024-03-13 15:08 | P.PN_ITS ---
Subjective 2 Subjective: Patient was seen this morning, she is resting quite comfortably, she is on nasal cannula she denies any active chest pain, no fevers, no chills, no cough she tells me that with the diuresis this morning she feels significantly better, she is frustrated about the multiple hospitals that she has been at in the last few months without any significant interventions, Vitals/I&O/Wt Last Vital Signs Pulse 67 03/13/24 14:24 Resp 18 03/13/24 14:08 BP 129/82 03/13/24 14:24 Pulse Ox 94 03/13/24 14:24 O2 Del Method Nasal Cannula 03/13/24 14:08 O2 Flow Rate 2 03/13/24 11:07 FiO2 55 03/13/24 00:10 03/13/24 03/13/24 03/13/24 06:59 14:59 22:59 Intake Total 177.053 / 177.053 Output Total 1700 / 1700 Balance -1522.947 / -1522.947 Weight last 48 hrs Weight 81.647 kg Physical Exam 2 Const: COMMON NORMALS: no acute distress and patient oriented x3 Resp: COMMON NORMALS: normal respiratory effort, No retractions and No use of accessory muscles AUSCULTATION: crackles Cardio: COMMON NORMALS: regular rate, regular rhythm, S1 normal heart sound present and S2 normal heart sound present RATE: regular rate RHYTHM: r egular rhythm HEART SOUNDS: S1 normal heart sound present and S2 normal heart sound present GI: COMMON NORMALS: Normal to inspection, nondistended, normoactive bowel sounds present and non-tender Extremity: NARRATIVE EXTREMITY EXAM: 1+ pitting edema Neuro: COMMON NORMALS: patient oriented x3 Psych: COMMON NORMALS: mental status grossly normal Urinary Catheter Management: Huff: Cath Placed During This Visit: yes Reason for Continuing Indwelling Catheter: Accurate Measurement of Urinary Output in Critically Ill Patients Urinary Catheter Date of Insertion: 03/12/24 Urinary Catheter Time of Insertion: 23:54 Data 03/12/24 23:52 03/12/24 23:52 Micro: Microbiology 03/13/24 01:37 Blood Culture - Preliminary Blood SPECIMEN COLLECTED 03/13/24 01:40 Blood Culture - Preliminary Blood SPECIMEN COLLECTED A&P Assessment and plan (1) Non-ST elevated myocardial infarction: (2) Flash pulmonary edema: (3) Acute hypoxemic respiratory failure: (4) Coronary artery disease: (5) Systolic CHF, acute: Plan NSTEMI ? Currently denies chest pain ? Plan ? Continue aspirin, statin, Plavix ? Continue heparin drip -Cardiac echo ordered ? Cardiology is consulted ? Monitor for chest pain Acute hypoxic respiratory failure secondary to pulm edema, systolic CHF exacerbation ? Bumex 1 mg every 12 hours ? Monitor creatinine monitor potassium # Continue nasal cannula can consider BiPAP during the night Left leg swelling ? Venous ultrasound Type 2 diabetes mellitus, low-dose sliding scale Full code Is Lovenox for DVT prophylaxis ' Attestations 2 Medical Necessity Statement*: Patient requires hospitalization, inpatient, greater than 2 midnights, for NSTEMI, acute hypoxic respiratory failure secondary to CHF Diagnoses Non-ST elevated myocardial infarction I21.4 Flash pulmonary edema J81.0 Acute hypoxemic respiratory failure J96.01 Coronary artery disease I25.10 Systolic CHF, acute I50.21
--- NOTE | 2024-03-13 15:10 | USR_ITS ---
PROCEDURE INFORMATION: Exam: US Duplex Left Lower Extremity Veins, Limited Exam date and time: 03/13/2024 4:01 PM Age: 83 years old Clinical indication: Swelling (edema) of limb; Lower extremity, left TECHNIQUE: Imaging protocol: Real-time duplex ultrasound of the left extremity with 2-D vicente scale, color Doppler flow and spectral waveform analysis including responses to compression and other maneuvers (when performed) with image documentation. Limited exam focused on the left lower extremity veins. COMPARISON: CR XR foot LT min 3V* [id number] 03/29/2023 11:20 AM FINDINGS: Left deep veins: Unremarkable. The common femoral, femoral, proximal profunda femoral and popliteal veins are patent without thrombus. Normal Doppler waveforms. Normal compressibility and/or augmentation response. Superficial veins: Greater saphenous vein at the saphenofemoral junction is patent without thrombus. Soft tissues: Unremarkable. US/CV venous duplex [facility] [id number] IMPRESSION: No evidence of deep vein thrombosis.
[2024-03-13] MEDS: flu vacc pf 24-25 (6 mos+) SYRINGE 45 MCG IM (16:54)
[2024-03-13 17:06] LABS: Glucose Point of Care 219 mg/dL (70-110)
[2024-03-13] MEDS: insulin lispro 100 unit/1 mL SUBCUT (17:44)
[2024-03-13 20:25] LABS: Glucose Point of Care 125 mg/dL (70-110)
[2024-03-13] MEDS: clopidogrel 75 mg Tablet PO (21:02)
[2024-03-13] MEDS: atorvastatin 40 mg Tablet PO (21:02)
[2024-03-13] MEDS: gabapentin 300 mg Capsule 600 MG PO (21:02)
[2024-03-13 21:24] LABS: Partial Thromboplastin Time 82.1 SECONDS (23.9-36.7)
[2024-03-14] VITALS (7 sets, daily range): BP systolic 119–152; BP diastolic 59–82; PULSE 61–87; RESP 19–27; TEMP 36.4–37; O2SAT 95–98
[2024-03-14] MEDS: potassium chloride ER 20 mEq Tablet PO ×2 (00:15→11:58)
[2024-03-14] MEDS: hyDROXYzine 25 mg Capsule PO (00:16)
[2024-03-14] MEDS: bumetanide 0.25 mg/mL SDV 4 mL 1 MG IVP ×2 (00:16→11:57)
[2024-03-14] MEDS: heparin drip 25,000 UNIT/500 ML PREMIX 21 UNIT IV (02:52)
[2024-03-14 03:54] LABS: Basophils % 0.3 %; Eosinophils # 0.4 10^3/uL (0.0-0.8); Eosinophils % 3.3 %; Hematocrit 35.3 % (36-47); Lymphocytes # 1.9 10^3/uL (0.8-4.8); Lymphocytes % 17.3 %; Mean Corpuscular HGB Conc 31.4 g/dL (30-55); Mean Corpuscular Hemoglobin 27.4 pg (27-33); Mean Corpuscular Volume 87.2 fl (85-98); Mean Platelet Volume 11.9 fL (7.4-10.4); Monocytes # 1.1 10^3/uL (0.2-0.9); Monocytes % 10.1 %; Neutrophils # 7.54 10^3/uL (1.8-7.7); Neutrophils % 68.6 %; Nucleated Red Blood Cells % 0 %; Platelet Count 268 10^3/cmm (157-399); Red Blood Count 4.05 10^6/uL (3.85-5.65); Red Cell Distribution Width 13.2 % (12.1-15.1); White Blood Count 10.98 10^3/uL (3.29-11.43)
[2024-03-14 04:09] LABS: Partial Thromboplastin Time 84.1 SECONDS (23.9-36.7)
[2024-03-14 04:39] LABS: Anion Gap 13.1 (5-19); Blood Urea Nitrogen 19 mg/dL (8-23); Calcium 8.1 mg/dL (8.5-10.5); Carbon Dioxide 29 mmol/L (22-29); Chloride 103 mmol/L (98-107); Creatinine Clr Calc Pharmacy 41.1467; Glucose 243 mg/dL (65-115); Osmolality Calculated 302 mOsm/kg (285-295); Potassium 4.1 mmol/L (3.5-5.1); Sodium 141 mmol/L (136-145)
[2024-03-14 04:40] LABS: NT Pro B Type Natriuretic Pept 7960 pg/mL (0-450)
[2024-03-14 06:18] LABS: Glucose Point of Care 112 mg/dL (70-110)
[2024-03-14] MEDS: aspirin 81 mg EC Tablet PO (07:15)
[2024-03-14] MEDS: pantoprazole 40 mg SDV IVP (07:15)
[2024-03-14 10:40] LABS: Partial Thromboplastin Time 74.7 SECONDS (23.9-36.7)
[2024-03-14] MEDS: insulin lispro 100 unit/1 mL SUBCUT ×3 (11:57→21:15)
[2024-03-14 12:29] LABS: Glucose Point of Care 216 mg/dL (70-110)
--- NOTE | 2024-03-14 14:48 | PM.PN ---
Subjective Subjective: Patient was seen this morning, she denies any fevers, no chills, she is on 3 L no chest pain overnight her shortness of breath to some degree persist but she does feel better, Vitals/I&O/Wt Last Vital Signs Temp 98.5 F 03/14/24 11:29 Pulse 68 03/14/24 11:29 Resp 24 H 03/14/24 11:29 BP 119/59 03/14/24 11:29 Pulse Ox 98 03/14/24 11:29 O2 Del Method Nasal Cannula 03/14/24 11:29 O2 Flow Rate 3 03/14/24 11:29 FiO2 30 03/13/24 23:25 03/13/24 03/14/24 03/14/24 22:59 06:59 14:59 Intake Total 575.817 / 752.870 550.15 / 1303.020 476.533 / 476.533 Output Total 1300 / 3000 1000 / 4000 Balance -724.183 / -2247.130 -449.85 / -2696.980 476.533 / 476.533 Weight last 48 hrs Weight 78.471 kg Weight 79.435 kg Weight 81.647 kg Physical Exam Const: COMMON NORMALS: no acute distress and patient oriented x3 Resp: COMMON NORMALS: normal respiratory effort, No retractions and No use of accessory muscles AUSCULTATION: crackles and wheezes Cardio: COMMON NORMALS: regular rate, regular rhythm, S1 normal heart sound present and S2 normal heart sound present RATE: regular rate RHYTHM: regular rhythm HEART SOUNDS: S1 normal heart sound present and S2 normal heart sound present GI: COMMON NORMALS: Normal to inspection, nondistended, normoactive bowel sounds present and non-tender Extremity: COMMON NORMALS: no pedal edema Neuro: COMMON NORMALS: patient oriented x3 Psych: COMMON NORMALS: mental status grossly normal Urinary Catheter Management: Huff: Cath Placed During This Visit: yes Reason for Continuing Indwelling Catheter: Accurate Measurement of Urinary Output in Critically Ill Patients Urinary Catheter Date of Insertion: 03/12/24 Urinary Catheter Time of Insertion: 23:54 Data 03/14/24 03:28 03/14/24 03:28 Micro: Microbiology 03/13/24 01:37 Blood Culture - Preliminary Blood NEGATIVE TO DATE 10/30/24 01:40 Blood Culture - Preliminary Blood NEGATIVE TO DATE A&P Assessment and plan (1) Non-ST elevated myocardial infarction: (2) Flash pulmonary edema: (3) Acute hypoxemic respiratory failure: (4) Coronary artery disease: (5) Systolic CHF, acute: Plan NSTEMI ? Currently denies chest pain ? Plan ? Continue aspirin, statin, Plavix ? Continue heparin drip -Cardiac echo ordered CONCLUSIONS Normal LV systolic function. Normal LVEF 65%. Normal RV size and systolic function. Dilated left atrium with moderate mitral regurgitation. Normal right heart and pulmonary pressures. cath 12/2023 Conclusions 1. Severe multivessel [place] coronary artery disease. [place] to [place] is patent. Culprit lesion for ACS is heavily calcified subtotally occluded [place] left circumflex artery. After diagnostic angiogram we did not proceed with PCI attempt as this vessel will need high risk PCI with arthrectomy. We will discuss all options with patient and family including medical therapy vs high risk PCI here vs transfer to tertiary care center. Based on patient's preference, will proceed further.. 2. Patient has prior CABG. ? Cardiology is consulted ? Monitor for chest pain Acute hypoxic respiratory failure secondary to pulm edema, systolic CHF exacerbation ? Bumex 1 mg every 12 hours ? Monitor creatinine monitor potassium # Continue nasal cannula can consider BiPAP during the night Left leg swelling ? Venous ultrasound negative for DVT Type 2 diabetes mellitus, low-dose sliding scale Full code Is Lovenox for DVT prophylaxis ' Attestations Medical Necessity Statement*: Patient requires hospitalization for NSTEMI, respiratory failure, requiring IV diuresis, cardiology consultation Diagnoses Non-ST elevated myocardial infarction I21.4 Flash pulmonary edema J81.0 Acute hypoxemic respiratory failure J96.01 Coronary artery disease I25.10 Systolic CHF, acute I50.21
--- NOTE | 2024-03-14 15:56 | P.CONIM_ITS ---
Providers/Reason For Consult 2 Consulting Physician/Specialty*: Cardiology/Dr. Torres Reason for Consult*: CAD/heart failure Requesting Physician: Dr. Steward Attending Physician: Willem Steward MD Primary Care Provider: Antonio Delgado MD History of Present Illness History of Present Illness Sally Henderson is a 83 year old female with extensive cardiac history, previous CABG, recent admission with NSTEMI and treated medically since due to complex coronary artery disease, she presented with a couple of days history of worsening shortness of air. On admission she was hypoxic due to pulmonary edema and fluid overload. EKG showed nonspecific ST changes and her cardiac troponin is mildly elevated with flat response. Significantly elevated proBNP, all suggestive of heart failure with pulmonary edema. The flat elevated troponin a result of current presentation of heart failure with underlying significant coronary disease. Since admission patient has been well diuresed, well over 5 L, and clinically she is much better. She is lying comfortably on her bed. Denies any further shortness of air. No orthopnea. She denies any anginal symptoms. I note that she has been seen at different hospital for the management of complex complex coronary disease. Considering overall clinical status the decision was made for medical management. Her echo showed normal LV systolic function. Review of Systems 2 Narrative: Detailed 10 point systemic review unremarkable except for as mentioned above in the history of present illness. Medications/Allergies Home Medications Medication Instructions Recorded Confirmed Last Taken Type gabapentin 600 mg tablet 600 mg PO BEDTIME 05/28/19 03/13/24 03/12/24 08:00 History multivitamin 1 tab PO BEDTIME 09/19/20 03/13/24 03/12/24 History calcium carbonate 500 mg PO DAILY 08/29/23 03/13/24 03/12/24 History insulin degludec 200 unit/mL (3 30 unit SUBCUT DAILY@17 08/29/23 03/13/24 03/12/24 04:00 History mL) subcutaneous pen (Tresiba FlexTouch U-200 insulin) tramadol 50 mg tablet 100 mg PO BEDTIME 08/29/23 03/13/24 03/12/24 History isosorbide mononitrate 30 mg 30 mg PO DAILY #30 tabs 09/02/23 03/13/24 03/12/24 Rx tablet,extended release 24 hr aspirin 81 mg tablet,delayed 81 mg PO DAILY 30 days #30 tabs 12/25/23 03/13/24 03/12/24 Rx release atorvastatin 40 mg tablet 40 mg PO BEDTIME 30 days #30 tabs 12/25/23 03/13/24 03/11/24 Rx clopidogrel 75 mg tablet 75 mg PO BEDTIME 30 days #30 tabs 12/25/23 03/13/24 03/12/24 08:00 Rx Allergies Allergy/AdvReac Type Severity Reaction Status Date / Time No Known Allergies Allergy Verified 03/12/24 23:48 Current Medications Generic Name Dose Route Start Last Admin Trade Name Freq PRN Reason Stop Dose Admin Aspirin 81 mg 03/13/24 09:20 03/14/24 07:15 Aspirin 81 Mg Ec Tablet PO 81 mg DAILY LI Administration Atorvastatin Calcium 40 mg 03/13/24 21:00 03/13/24 21:02 Atorvastatin 40 Mg Tablet PO 40 mg BEDTIME LI Administration Clopidogrel Bisulfate 75 mg 03/13/24 21:00 03/13/24 21:02 Clopidogrel 75 Mg Tablet PO 75 mg BEDTIME LI Administration Gabapentin 600 mg 03/13/24 21:00 03/13/24 21:02 Gabapentin 300 Mg Capsule PO 600 mg BEDTIME LI Administration Hydroxyzine Pamoate 25 mg 03/13/24 23:38 03/14/24 00:16 Hydroxyzine 25 Mg Capsule PO 25 mg QID PRN Administration ANXIETY Heparin Sodium/Sodium Chloride 25,000 unit in 500 mls @ 0 mls/hr 03/13/24 12:00 03/14/24 10:44 Heparin Drip IV 11.64 unit/kg/hr CONT LI 19 mls/hr Titration Protocol Per Protocol Insulin Human Lispro 0 unit 03/13/24 12:00 03/14/24 11:57 Insulin Lispro 100 Unit/1 Ml SUBCUT 6 unit WM&BEDTIME LI Administration Protocol Pantoprazole Sodium 40 mg 03/13/24 09:15 03/14/24 07:15 Pantoprazole 40 Mg Sdv IVP 40 mg Q24H LI Administration PFSH Acute 2 PFSH: Medical History NSTEMI (non-ST elevated myocardial infarction) Hyperglycemia Hyperkalemia Elevated brain natriuretic peptide (BNP) level Hyperglycemia Hypoxic respiratory failure Dyslipidemia Contrast-induced nephropathy Type 2 diabetes mellitus without complications CAD (coronary artery disease) Acute [facility] Essential (primary) hypertension Surgical History Hx of hysterectomy Hx of CABG Family History Unknown No problems noted. Social History Smoking and tobacco/nicotine status: never used tobacco/nicotine Alcohol intake: never Substance/Drug Use: never Vitals/I&O/Wt Last Vital Signs Temp 98.5 F 03/14/24 11:29 Pulse 68 03/14/24 11:29 Resp 24 H 03/14/24 11:29 BP 119/59 03/14/24 11:29 Pulse Ox 98 03/14/24 11:29 O2 Del Method Nasal Cannula 03/14/24 11:29 O2 Flow Rate 3 03/14/24 11:29 FiO2 30 03/13/24 23:25 03/14/24 03/14/24 03/14/24 06:59 14:59 22:59 Intake Total 550.15 / 1303.020 476.533 / 476.533 Output Total 1000 / 4000 Balance -449.85 / -2696.980 476.533 / 476.533 Weight last 48 hrs Weight 173 lb Weight 175 lb 2 oz Weight 180 lb Physical Exam 2 Narrative: Patient laying comfortably on the bed. She is not in any respiratory distress. Her vitals are stable. Const: COMMON NORMALS: no acute distress, patient oriented x3, healthy appearing and alert HENMT: OTHER: Normal Eye: OTHER: Normal Resp: OTHER: Good air entry bilaterally. Very minimal rales at the bases bilaterally. Cardio: OTHER: Normal first and second heart sounds. There are no added sounds. No JVD. GI: OTHER: Abdomen is obese however soft nontender. Bowel sounds audible. Extremity: OTHER: No lower extremity edema. Distal pulses palpable bilaterally. Neuro: COMMON NORMALS: patient oriented x3 SENSORIUM/ORIENTATION: Yes alert OTHER: Grossly intact. She moves all 4 limbs. Skin: OTHER: Warm and dry. Urinary Catheter Management: Huff: Cath Placed During This Visit: yes Reason for Continuing Indwelling Catheter: Accurate Measurement of Urinary Output in Critically Ill Patients Urinary Catheter Date of Insertion: 03/12/24 Urinary Catheter Time of Insertion: 23:54 Data 03/14/24 03:28 03/14/24 03:28 Micro: Microbiology 03/13/24 01:37 Blood Culture - Preliminary Blood NEGATIVE TO DATE 03/13/24 01:40 Blood Culture - Preliminary Blood NEGATIVE TO DATE A&P Assessment and plan (1) Heart failure: 83-year-old female patient with complex coronary artery disease admitted with heart failure symptoms, significant volume overloaded. Clinically she improved well after diuresis. Her vitals are now stable. Currently patient is euvolemic. Recommendation: 1. Optimize medical management for CAD. Increase the dose of Imdur to 60 mg once a day. Also to add ranolazine 500 500 mg twice a day 2. As patient has diuresed well I would recommend to reduce the dose of oral diuretics. 3. To continue rest of medication. Recommend follow-up in the cardiology clinic in couple of weeks. (2) Coronary artery disease: Coding Level of Care Code 88300 Diagnoses Heart failure I50.9 Coronary artery disease I25.10 Time Spent (min) 30
[2024-03-14 17:02] LABS: Glucose Point of Care 164 mg/dL (70-110)
[2024-03-14] MEDS: isosorbide mononitrate ER 30 mg Tablet PO (17:07)
[2024-03-14 17:29] LABS: Partial Thromboplastin Time 65.5 SECONDS (23.9-36.7)
[2024-03-14] MEDS: atorvastatin 40 mg Tablet PO (20:52)
[2024-03-14] MEDS: gabapentin 300 mg Capsule 600 MG PO (20:52)
[2024-03-14] MEDS: clopidogrel 75 mg Tablet PO (20:53)
[2024-03-14 20:55] LABS: Glucose Point of Care 246 mg/dL (70-110)
[2024-03-14] MEDS: benzonatate 100 mg Capsule PO (22:31)
[2024-03-15 01:17] LABS: Partial Thromboplastin Time 81.7 SECONDS (23.9-36.7)
[2024-03-15 04:00] VITALS: BP 137/65; PULSE 73; RESP 24; TEMP 36.9; O2SAT 99
[2024-03-15 04:43] LABS: Basophils % 0.2 %; Eosinophils # 0.5 10^3/uL (0.0-0.8); Eosinophils % 5.4 %; Hematocrit 35.4 % (36-47); Lymphocytes # 1.8 10^3/uL (0.8-4.8); Lymphocytes % 17.7 %; Mean Corpuscular HGB Conc 30.8 g/dL (30-55); Mean Corpuscular Hemoglobin 27.3 pg (27-33); Mean Corpuscular Volume 88.7 fl (85-98); Mean Platelet Volume 11.9 fL (7.4-10.4); Monocytes % 9.5 %; Neutrophils # 6.75 10^3/uL (1.8-7.7); Neutrophils % 66.9 %; Nucleated Red Blood Cells % 0 %; Platelet Count 273 10^3/cmm (157-399); Red Blood Count 3.99 10^6/uL (3.85-5.65); Red Cell Distribution Width 12.9 % (12.1-15.1); White Blood Count 10.09 10^3/uL (3.29-11.43)
[2024-03-15 05:02] LABS: Anion Gap 12.2 (5-19); Blood Urea Nitrogen 23 mg/dL (8-23); Carbon Dioxide 30 mmol/L (22-29); Chloride 104 mmol/L (98-107); Creatinine Clr Calc Pharmacy 40.9035; Glucose 283 mg/dL (65-115); Osmolality Calculated 308 mOsm/kg (285-295); Potassium 4.2 mmol/L (3.5-5.1); Sodium 142 mmol/L (136-145)
[2024-03-15 05:05] LABS: Bilirubin Urine Negative (Negative); Blood Urine Non-haemolysed trace (Negative); Glucose Urine UA Trace (Normal); Ketones Urine Negative (Negative); Leukocyte Esterase Urine Negative (Negative); Nitrate Urine Negative (Negative); Protein Urine Negative (Negative); Specific Gravity, Urine 1.016 (1.005-1.030); Urine Appearance Clear (CLEAR); Urine Color Yellow (Yellow)
[2024-03-15 05:10] LABS: Add Urine Microscopic? YES; Bacteria Urine None Seen /hpf; Hyaline Casts Urine 1.65 /lpf; RBC Urine 0-2 /hpf (0-2); Squamous Epithelial Cell Urine 0-5 /hpf (0-5); WBC Urine 0-5 /hpf (0-5)
[2024-03-15 05:14] LABS: NT Pro B Type Natriuretic Pept 4222 pg/mL (0-450)
[2024-03-15] MEDS: heparin drip 25,000 UNIT/500 ML PREMIX 17 UNIT IV (05:58)
[2024-03-15 06:33] VITALS: PULSE 63
[2024-03-15 06:38] LABS: Glucose Point of Care 215 mg/dL (70-110)
[2024-03-15 07:13] VITALS: O2SAT 91
[2024-03-15 07:41] VITALS: BP 146/71; PULSE 68; RESP 18; TEMP 36.6; O2SAT 99
[2024-03-15] MEDS: insulin lispro 100 unit/1 mL SUBCUT (08:16)
[2024-03-15] MEDS: isosorbide mononitrate ER 30 mg Tablet PO (08:16)
[2024-03-15] MEDS: potassium chloride ER 20 mEq Tablet PO (08:16)
[2024-03-15] MEDS: FUROsemide 40 mg Tablet PO (08:16)
[2024-03-15] MEDS: pantoprazole 40 mg SDV IVP (08:16)
[2024-03-15] MEDS: ranolazine (12HR) 500 mg Tablet PO (08:16)
[2024-03-15] MEDS: aspirin 81 mg EC Tablet PO (08:16)
--- NOTE | 2024-03-15 10:33 | PM.DCS ---
Discharge Providers Date of Admission: 03/13/24 14:23 Date of Discharge: March 15, 2024 Attending Provider at Admission: Willem Steward MD Attending Provider at Discharge: Willem Steward MD Primary Care Provider: Antonio Delgado MD Diagnoses at Discharge Discharge Diagnosis (1) Heart failure: Status: Resolved (2) Coronary artery disease: Status: Acute Reason for Visit Reason for Visit: RESP. [facility] Hospital Course Hospital Course This is a 83-year-old female with a past medical history of CAD, requiring transfer to tertiary level center, CHF, who presents [facility] for shortness of breath Patient was admitted to [facility] for NSTEMI, shortness of breath, acute hypoxic respiratory failure, secondary to systolic CHF exacerbation. Patient required inpatient admission, IV diuretics, cardiology consulted, diuresed over 4 L. Patient will be discharged on Lasix therapy, potassium replacement therapy, with close follow-up with cardiology as outpatient For her NSTEMI ? Currently denies chest pain ? Plan ? Continue aspirin, statin, Plavix ? Continue heparin drip -Cardiac echo ordered CONCLUSIONS Normal LV systolic function. Normal LVEF 65%. Normal RV size and systolic function. Dilated left atrium with moderate mitral regurgitation. Normal right heart and pulmonary pressures. cath 12/2023 Conclusions 1. Severe multivessel bois forte coronary artery disease. [place] to LAD is patent. Culprit lesion for ACS is heavily calcified subtotally occluded bois forte left circumflex artery. After diagnostic angiogram we did not proceed with PCI attempt as this vessel will need high risk PCI with arthrectomy. We will discuss all options with patient and family including medical therapy vs high risk PCI here vs transfer to tertiary care center. Based on patient's preference, will proceed further.. 2. Patient has prior CABG. -For this patient was transferred to [facility], and from their to [facility] they had recommended outpatient follow-up, according to patient no acute interventions ? Cardiology is consulted, recommended medical management -Patient will be discharged with close follow-up with cardiology as outpatient, ranolazine was added to her regimen -If she were to have any chest pain please come back to the emergency room -Follow-up with cardiology as outpatient Physical Exam Const: COMMON NORMALS: no acute distress and patient oriented x3 Resp: COMMON NORMALS: normal respiratory effort, No retractions, No use of accessory muscles and clear to auscultation bilaterally AUSCULTATION: clear to auscultation bilaterally Cardio: COMMON NORMALS: regular rate, regular rhythm, S1 normal heart sound present and S2 normal heart sound present RATE: regular rate RHYTHM: regular rhythm HEART SOUNDS: S1 normal heart sound present and S2 normal heart sound present GI: COMMON NORMALS: Normal to inspection, nondistended, normoactive bowel sounds present and non-tender Extremity: COMMON NORMALS: capillary refill normal and no pedal edema Neuro: COMMON NORMALS: patient oriented x3 Psych: COMMON NORMALS: mental status grossly normal Urinary Catheter Management: Huff: Cath Placed During This Visit: yes Reason for Continuing Indwelling Catheter: Acute Urinary Retention or Obstruction Urinary Catheter Date of Insertion: 03/12/24 Urinary Catheter Time of Insertion: 23:54 Discharge Data Studies Completed and Pending Completed Studies During Hospitalization Category Date Time Status XR chest 1V portable [id number] Stat Exams 03/12/24 23:44 [place] [id number] Routine Ultrasound 03/13/24 15:10 Completed CV. echo complete* [id number] Stat Ultrasound 03/13/24 09:20 Completed Pending at discharge Category Date Time Status Basic Metabolic Panel AM LABS Lab 03/16/24 04:00 Ordered Blood Culture Stat Lab 03/12/24 23:44 Results Complete Blood Count w/Auto AM LABS Lab 03/16/24 04:00 Ordered NT Pro B Type Natriuretic Pept QAM Lab 03/16/24 06:00 Ordered PTT [Partial Thromboplastin Time] Timed Lab 03/15/24 10:24 Received Platelet Count Q2D Lab 03/17/24 04:00 Ordered Radiology Impressions Chest X-Ray 03/12/24 23:44 IMPRESSION: 1. Bibasilar atelectasis right greater than left. 2. Atherosclerotic vascular disease and prior CABG. Venous Duplex 03/13/24 15:10 IMPRESSION: No evidence of deep vein thrombosis. Laboratory Results WBC 10.09 10^3/uL (3.29-11.43) 03/15/24 04:20 RBC 3.99 10^6/uL (3.85-5.65) 03/15/24 04:20 Hgb 10.90 g/dL (11.27-16.99) L 03/15/24 04:20 Hct 35.4 % (36-47) L 03/15/24 04:20 MCV 88.7 fl (85-98) 03/15/24 04:20 MCH 27.3 pg (27-33) 03/15/24 04:20 MCHC 30.8 g/dL (30-55) 03/15/24 04:20 RDW 12.9 % (12.1-15.1) 03/15/24 04:20 Plt Count 273 10^3/cmm (157-399) 03/15/24 04:20 MPV 11.9 fL (7.4-10.4) H 03/15/24 04:20 Neut % (Auto) 66.9 % 03/15/24 04:20 Lymph % (Auto) 17.7 % 03/15/24 04:20 [place] % (Auto) 9.5 % 03/15/24 04:20 Eos % (Auto) 5.4 % 03/15/24 04:20 Baso % (Auto) 0.2 % 03/15/24 04:20 Neut # (Auto) 6.75 10^3/uL (1.8-7.7) 03/15/24 04:20 Lymph # (Auto) 1.8 10^3/uL (0.8-4.8) 03/15/24 04:20 [place] # (Auto) 1.0 10^3/uL (0.2-0.9) H 03/15/24 04:20 Eos # (Auto) 0.5 10^3/uL (0.0-0.8) 03/15/24 04:20 Baso # (Auto) 0.0 10^3/uL (0.0-0.1) 03/15/24 04:20 Nucleated RBC % (auto) 0 % 03/15/24 04:20 Nucleated RBCs # 0.0 /100WBC 03/15/24 04:20 PT 14.50 SECONDS (12.1-14.9) 03/12/24 23:52 INR 1.09 (0.8-1.2) 03/12/24 23:52 APTT 81.7 SECONDS (23.9-36.7) H 03/15/24 00:30 Specimen Type Arterial 03/12/24 23:49 Sample Site Brachial, right 03/12/24 23:49 ABG pH 7.29 (7.35-7.45) L 03/12/24 23:49 ABG pCO2 52.8 mmHg (35-45) H 03/12/24 23:49 ABG pO2 112.0 mmHg (80.0-100.0) H 03/12/24 23:49 ABG PO2/FiO2 Ratio 203 03/12/24 23:49 ABG HCO3 25.4 mmol/L (22-26) 03/12/24 23:49 ABG O2 Saturation 98.2 03/12/24 23:49 ABG Base Excess -1.6 mmol/L (-2.0-2.0) 03/12/24 23:49 Tanner Test N/a 03/12/24 23:49 A-a O2 Gradient 27.9 mmHg (5-10) H 03/12/24 23:49 Hematocrit 34.3 % (37-47) L 03/12/24 23:49 Hgb O2 Saturation 96.4 % (95-100) 03/12/24 23:49 Carboxyhemoglobin 0.6 %THgb (0.4-20.1) 03/12/24 23:49 Methemoglobin 1.2 % (0.4-1.5) 03/12/24 23:49 Total Hemoglobin 11.2 g/dL (12-16) L 03/12/24 23:49 Sodium 146.0 mmol/L (131-143) H 03/12/24 23:49 Potassium 4.5 mmol/L (3.5-5.0) 03/12/24 23:49 Glucose 282.0 mg/dL (70-115) H 03/12/24 23:49 Ionized Calcium 1.2 mmol/L (1.1-1.4) 03/12/24 23:49 O2 Delivery Device Bipap 03/12/24 23:49 FiO2 55.0 % 03/12/24 23:49 Manager Trade Marketing ID [email or web address] 03/12/24 23:49 Sodium 142 mmol/L (136-145) 03/15/24 04:20 Potassium 4.2 mmol/L (3.5-5.1) 03/15/24 04:20 Chloride 104 mmol/L (98-107) 03/15/24 04:20 Carbon Dioxide 30 mmol/L (22-29) H 03/15/24 04:20 Anion Gap 12.2 (5-19) 03/15/24 04:20 BUN 23 mg/dL (8-23) 03/15/24 04:20 Creatinine 1.0 mg/dL (0.5-0.9) H 03/15/24 04:20 GFR Calculation Not Reportable 03/15/24 04:20 Glucose 283 mg/dL (65-115) H 03/15/24 04:20 POC Glucose 215 mg/dL (70-110) H 03/15/24 06:36 Estimat Average Glucose 163 03/13/24 10:03 Hemoglobin A1c 7.3 % (4.0-6.0) H 03/13/24 10:03 Calculated Osmolality 308 mOsm/kg (285-295) H 03/15/24 04:20 Lactic Acid 2.1 mmol/L (0.5-2.2) 03/12/24 23:52 Lactic Acid (Sepsis) 1.4 mmol/L (0.5-2.2) 03/13/24 01:40 Calcium 8.0 mg/dL (8.5-10.5) L 03/15/24 04:20 Total Bilirubin 0.2 mg/dL (0.15-1.2) 03/12/24 23:52 AST 20 U/L (0-32) 03/12/24 23:52 ALT 11 U/L (0-33) 03/12/24 23:52 Alkaline Phosphatase 128 U/L (35-105) H 03/12/24 23:52 Troponin T Baseline 324 ng/L (0-10) H* 03/12/24 23:52 Troponin T 120 Minute 347.9 ng/L (0-10) H 03/13/24 01:40 Delta Troponin T 23.9 ABS# (0-10) H* 03/13/24 01:40 Troponin T Hi Sens 6Hr 377.2 ng/L (0-10) H 03/13/24 05:57 Troponin T Hi Sens 6Hr Delta 53.2 ng/L (0-12) H* 03/13/24 05:57 NT-Pro-B Natriuret Pep 4222 pg/mL (0-450) H 03/15/24 04:20 Total Protein 7.0 g/dL (6.6-8.7) 03/12/24 23:52 Albumin 3.8 g/dL (3.5-5.2) 03/12/24 23:52 Globulin 3.2 g/dL (1.3-4.6) 03/12/24 23:52 Triglycerides 54 mg/dL (0-150) 03/13/24 10:03 Cholesterol 128 mg/dL (0-200) 03/13/24 10:03 LDL Cholesterol, Calc 62 mg/dL (50-129) 03/13/24 10:03 HDL Cholesterol 55 mg/dL (60-100) L 03/13/24 10:03 LDL/HDL Ratio 1.13 RATIO (0.00-3.22) 03/13/24 10:03 Cholesterol/HDL Ratio 2.33 mg/dL (0.0-4.40) 03/13/24 10:03 TSH 1.90 uIU/mL (0.27-4.20) 03/13/24 10:03 Urine Color Yellow (Yellow) 03/15/24 04:47 Urine Appearance Clear (CLEAR) 03/15/24 04:47 Urine pH 5.0 (5-7) 03/15/24 04:47 Ur Specific [place] 1.016 (1.005-1.030) 03/15/24 04:47 Urine Protein Negative (Negative) 03/15/24 04:47 Urine Glucose (UA) Trace (Normal) H 03/15/24 04:47 Urine Ketones Negative (Negative) 03/15/24 04:47 Urine Blood Non-haemolysed trace (Negative) 03/15/24 04:47 Urine Nitrate Negative (Negative) 03/15/24 04:47 Urine Bilirubin Negative (Negative) 03/15/24 04:47 Urine Urobilinogen 1.0 mg/dL (Negative) 03/15/24 04:47 Ur Leukocyte Esterase Negative (Negative) 03/15/24 04:47 Urine RBC 0-2 /hpf (0-2) 03/15/24 04:47 Urine WBC 0-5 /hpf (0-5) 03/15/24 04:47 Ur Squamous Epith Cells 0-5 /hpf (0-5) 03/15/24 04:47 Amorphous Sediment Not Reportable 03/15/24 04:47 Urine Bacteria None seen /hpf (NONE) 03/15/24 04:47 Hyaline Casts 1.65 /lpf 03/15/24 04:47 Coronavirus (PCR) Negative (Negative) 03/12/24 23:50 Influenza A (PCR) Negative (Negative) 03/12/24 23:50 Influenza Type B (PCR) Negative (Negative) 03/12/24 23:50 RSV (PCR) Negative (Negative) 03/12/24 23:50 Vitals Last Vital Signs Temp 97.8 F 03/15/24 07:41 Pulse 68 03/15/24 07:41 Resp 18 03/15/24 07:41 BP 146/71 03/15/24 07:41 Pulse Ox 99 03/15/24 07:41 O2 Del Method Nasal Cannula 03/15/24 07:41 O2 Flow Rate 3 03/14/24 16:00 FiO2 30 03/13/24 23:25 Discharge Plan Discharge Patient Disposition: Home Condition: Stable Prescriptions: New furosemide 40 mg Tablet 40 mg PO DAILY@0800 30 Days Qty: 30 0RF potassium chloride [Klor-Con M20] 20 mEq Tablet,Er Particles/Crystals 20 meq PO DAILY 30 Days Qty: 30 0RF ranolazine 500 mg Tablet Extended Release 12 Hr 500 mg PO BID 30 Days Qty: 60 0RF Continued gabapentin 600 mg tablet 600 mg PO BEDTIME multivitamin Tablet 1 tab PO BEDTIME tramadol 50 mg tablet 100 mg PO BEDTIME calcium carbonate 500 mg calcium (1,250 mg) Tablet 500 mg PO DAILY isosorbide mononitrate 30 mg tablet extended release 24 hr 30 mg PO DAILY Qty: 30 0RF atorvastatin 40 mg tablet 40 mg PO BEDTIME 30 Days Qty: 30 0RF clopidogrel 75 mg tablet 75 mg PO BEDTIME 30 Days Qty: 30 0RF aspirin 81 mg Tablet,Delayed Release (Dr/Ec) 81 mg PO DAILY 30 Days Qty: 30 0RF Changed insulin degludec [Tresiba FlexTouch U-200] 200 unit/mL (3 mL) insulin pen 10 unit SUBCUT QAM Qty: 9 0RF Discharge Orders: Discharge Order (Routine); Ordered 03/15/24 Ordered By: Willem Steward Referrals: Syl Castanon FNP [Nurse Practitioner] - 03/27/24 2:00 pm Antonio Delgado MD [Primary Care Provider] - 03/21/24 11:00 am Discharge Diet: Cardiac Discharge Activity: Resume usual activity Patient Instructions: Furosemide (By mouth) (Lasix), Furosemide (By mouth), Potassium Chloride (By mouth), Ranolazine (By mouth) (Ranexa, Aspruzyo), Ranolazine (By mouth), Heart Failure (DC), CHF Stoplight, Opioid Safety Activity Restrictions/Additional Instructions: - Please limit your fluid intake to 1 to 1.5 L a day ? Take Lasix 40 mg daily with potassium replacement therapy -Take Imdur 30 mg daily -Ranexa 500 mg twice daily has been added to your regimen -Monitor blood pressure closely -Have your primary care provider recheck your kidney function and your potassium at next week -I have decreased your dose of Tresiba to 10 units every morning -As you return home, back to your regular diet, your Tresiba requirements might increase back to her home dose -I would increase Tresiba at increments of 5 units daily to your home dose of 30 units subcut every morning -Monitor for blood sugar rhythm 500 so please go to the emergency room -If blood sugar less than 60 drink or juice or juice or eat a hard candy and go to the emergency room ? If you have any chest pain or shortness of breath please go to emergency room Discharge Attestations Time Spent in Discharge Care*: greater than 30 min Status at Discharge: Cognitive status at discharge: cognitively intact, Behavioral status at discharge: cooperative, Quality Metrics Clinical Quality Measures [ No reported AMI, CVA or VTE this stay] Coding Level of Care Code 94745 Total time (in minutes) for Discharge: 45 Diagnoses Heart failure I50.9 Coronary artery disease I25.10
[2024-03-15 10:42] LABS: Partial Thromboplastin Time 58.2 SECONDS (23.9-36.7)
[2024-03-15 10:52] VITALS: BP 148/97; PULSE 72; RESP 18; TEMP 36.7; O2SAT 93
[2024-03-15 11:45] LABS: Glucose Point of Care 248 mg/dL (70-110)
--- NOTE | 2024-03-15 12:31 | PC.NURSE ---
Patient discharged to home. Instruction provided regarding follow up needs, new medications and heart failure with stoplight. Patient and son verbalized complete understanding. IVs and gurrola catheter removed. Patient tolerated well. Patient taken by wheelchair to private vehicle. Patient denies pain or needs.
== END 2024-03-15 12:32 | disposition home or self-care (01) | DRG 280 ==
LOC: ER 03-13 04:54 → CSU 03-13 14:24
PROVIDERS: Internal Medicine Cardiovascular Disease; Student in an Organized Health Care Education/Training Program; Admitting Provider Family Medicine; Emergency Provider Emergency Medicine; PCP Family Medicine; Visit Provider Family Medicine
DX: I11.0 Hypertensive heart disease with heart failure (principal); I50.21 Acute systolic (congestive) heart failure; I21.4 Non-ST elevation (NSTEMI) myocardial infarction; J96.01 Acute respiratory failure with hypoxia; I25.10 Atherosclerotic heart disease of native coronary artery without angina pectoris; I45.10 Unspecified right bundle-branch block; E78.5 Hyperlipidemia, unspecified; E11.9 Type 2 diabetes mellitus without complications; M79.89 Other specified soft tissue disorders; I25.2 Old myocardial infarction; Z79.82 Long term (current) use of aspirin; Z79.02 Long term (current) use of antithrombotics/antiplatelets; Z79.4 Long term (current) use of insulin; Z95.1 Presence of aortocoronary bypass graft; Z90.710 Acquired absence of both cervix and uterus
CPT/HCPCS: 0241U; 36415; 36416; 36600; 51702; 71045; 80048; 80051; 80053; 80061; 81001; 82330; 82805; 82962; 83036; 83605; 83880; 84443; 84484; 85025; 85610; 85730; 87040; 90471; 90686; 93005; 93306; 93971; 94640; 94660; 94664; 96365; 96372; 96375; 96376; 99291; J1644; J1815; J1940; J2470; J3490; J7613

== ENCOUNTER → 2024-03-27 13:43 | Outpatient (BNVA) | payer MEDICARE, SELFPAY | PROVIDERS: PCP Family Medicine; Visit Provider Nurse Practitioner Family | DX: I25.2 Old myocardial infarction (principal); I11.0 Hypertensive heart disease with heart failure; I50.9 Heart failure, unspecified; R60.0 Localized edema | CPT/HCPCS: 99214 ==

== ENCOUNTER 2024-04-10 13:23 | Inpatient (IN) | payer MEDICARE, SELFPAY ==
[2024-04-10] VITALS (26 sets, daily range): BP systolic 127–136; BP diastolic 75–107; PULSE 65–106; RESP 13–40; TEMP 36.4–36.8; O2SAT 80–100; BMI 31.2
--- NOTE | 2024-04-10 13:37 | ECG_ITS ---
Gigalocal [facility]ala[facility] Test Date: 2024-04-10 Pat Name: Sally Henderson Department: Room: Gender: Female Applications Chemist: : [id number] Requested By: Verito Noel Order Number: [id number] Leonora MD: Angela Lopez M.D. Measurements Intervals [place] Rate: 71 P: 27 SD: 150 QRS: -35 QRSD: 106 T: 130 QT: 409 QTc: 447 Interpretive Statements SINUS RHYTHM LEFT AXIS DEVIATION [QRS AXIS < -30] INCOMPLETE RIGHT BUNDLE BRANCH BLOCK [90+ ms QRS DURATION, TERMINAL R IN V1/V2, 40+ ms S IN I/aVL/V4/V5/V6] LEFT VENTRICULAR HYPERTROPHY AND ST-T CHANGE [VOLTAGE CRITERIA PLUS ST/T ABNORMALITY] Compared to ECG 03/13/2024 07:11:04 Incomplete right bundle-branch block now present Sinus bradycardia no longer present Right bundle-branch block no longer present ST (T wave) deviation still present Electronically Signed On 04-10-2024 19:01:19 ELECTRICAL PROSPECTING OBSERVER by Angela Lopez M.D. [email or web address]
--- NOTE | 2024-04-10 13:37 | XRR_ITS ---
PROCEDURE INFORMATION: Exam: XR Chest Exam date and time: 04/10/2024 1:47 PM Age: 83 years old Clinical indication: Shortness of breath; Additional info: SOB TECHNIQUE: Imaging protocol: Radiologic exam of the chest. Views: 1 view. COMPARISON: CR (CHEST, ) 03/13/2024 12:27 AM FINDINGS: Lungs: Both lungs demonstrate diffuse interstitial coarsening which is felt to be chronic. No lung mass or infiltrate. Pleural spaces: Unremarkable. No pleural effusion. No pneumothorax. Heart/Mediastinum: Unremarkable. No cardiomegaly. Bones/joints: Sternal sutures are noted. Multiple old left-sided rib fractures are noted. XR/XR chest 1V portable [id number] IMPRESSION: 1. No acute findings. 2. Chronic lung changes noted
--- NOTE | 2024-04-10 13:43 | ED_ITS ---
HPI - SOB/Dyspnea 2 General: Chief Complaint: Shortness of Breath/Dyspnea Stated Complaint: Resp Distress Time Seen by Provider: 04/10/24 13:25 Source: patient and EMS Mode of arrival: EMS Limitations: no limitations History of Present Illness: HPI Narrative: 83-year-old female who is brought here b y EMS for possible flash pulm edema she has had a history of this in the past states she got very short of breath called EMS EMS states they arrived she is 60% on room air and in severe distress that started her on CPAP did transfer her to BiPAP. She is improved able to talk in full sentences denies any cough denies any chest pain denies any fevers. Associated symptoms: Deny abdominal pain, chest pain, fever(s), nausea or vomiting Related Data Home Medications Medication Instructions Recorded Confirmed gabapentin 600 mg tablet 600 mg PO BEDTIME 05/28/19 04/10/24 multivitamin 1 tab PO BEDTIME 09/19/20 04/10/24 calcium carbonate 500 mg PO DAILY 08/29/23 04/10/24 tramadol 50 mg tablet 100 mg PO BEDTIME 08/29/23 04/10/24 gemfibrozil 600 mg tablet 600 mg PO BID 04/10/24 04/10/24 insulin degludec 200 unit/mL (3 27 unit SUBCUT DAILY 04/10/24 04/10/24 mL) subcutaneous pen (Tresiba FlexTouch U-200 insulin) isosorbide mononitrate 30 mg 30 mg PO DAILY 04/10/24 04/10/24 tablet,extended release 24 hr nitroglycerin 0.4 mg sublingual 0.4 mg buccal PRN PRN Chest Pain 04/10/24 04/10/24 tablet pantoprazole 40 mg tablet,delayed 40 mg PO DAILY 04/10/24 04/10/24 release spironolactone 25 mg tablet 25 mg PO DAILY 04/10/24 04/10/24 Previous Rx's Medication Instructions Recorded aspirin 81 mg tablet,delayed 81 mg PO DAILY 30 days #30 tabs 12/25/23 release atorvastatin 40 mg tablet 40 mg PO BEDTIME #90 tabs 03/27/24 clopidogrel 75 mg tablet 75 mg PO BEDTIME #90 tabs 03/27/24 furosemide 40 mg tablet 40 mg PO DAILY@0800 #90 tabs 03/27/24 potassium chloride 20 mEq 20 meq PO DAILY #90 tabs 03/27/24 tablet,extended release(part/cryst) (Klor-Con M) ranolazine 500 mg tablet,extended 500 mg PO BID #60 tabs 03/27/24 release,12 hr Allergies Allergy/AdvReac Type Severity Reaction Status Date / Time No Known Allergies Allergy Verified 03/27/24 13:49 Review of Systems 2 Const: Denies: fever(s), chills, body aches or change in appetite ENMT: Denies: throat pain or dental pain Card: Denies: chest pain Resp: Reports: dyspnea GI: Denies: abdominal pain, nausea, vomiting or diarrhea : Denies: dysuria Musc: Denies: neck pain or back pain Skin/Breast: Denies: rash Neuro: Denies: headache(s) PFSH ED 2 PFSH: Medical History NSTEMI (non-ST elevated myocardial infarction) Hyperglycemia Hyperkalemia Elevated brain natriuretic peptide (BNP) level Hyperglycemia Hypoxic respiratory failure Dyslipidemia Contrast-induced nephropathy Type 2 diabetes mellitus without complications CAD (coronary artery disease) Acute MO Essential (primary) hypertension Surgical History Hx of hysterectomy Hx of CABG Family History Unknown No problems noted. Social History Smoking and tobacco/nicotine status: former use of tobacco/nicotine Alcohol intake: never Substance/Drug Use: never Physical Exam 2 Const: COMMON NORMALS: patient oriented x3 and healthy appearing GENERAL APPEARANCE: in distress and ill appearing HENMT: COMMON NORMALS: normocephalic and atraumatic HEAD & SCALP: n ormocephalic and atraumatic Eye: COMMON NORMALS: Equal, round and reactive pupils present and EOMs intact bilaterally PUPIL: Yes Equal, round and reactive pupils present Neck/C-Spine: COMMON NORMALS: full ROM and supple Chest: COMMONS NORMALS: normal inspection of the chest Resp: COMMON NORMALS: No retractions EFFORT & INSPECTION: Yes respiratory distress AUSCULTATION: rales Cardio: COMMON NORMALS: regular rate, regular rhythm and No murmurs present (Cardio) RATE: regular rate RHYTHM: regular rhythm GI: COMMON NORMALS: Normal to inspection, nondistended, normoactive bowel sounds present, Soft to palpation, non-tender and no masses PALPATION: Yes Soft to palpation Extremity: COMMON NORMALS: normal to inspection and full ROM Neuro: COMMON NORMALS: patient oriented x3, moves all extremities and no focal motor deficits Psych: COMMON NORMALS: mental status grossly normal, Normal thought process present and cooperative THOUGHT PROCESS: Normal thought process present Skin: COMMON NORMALS: no rashes or lesions noted and no wounds GENERAL SKIN EXAM: no rashes or lesions noted Course 2 Vital Signs: Vital signs: Vital Signs Temperature 97.6 F 04/10/24 13:23 Pulse Rate 86 04/10/24 13:23 Respiratory Rate 16 04/10/24 13:23 Blood Pressure 132/107 04/10/24 13:23 Pulse Oximetry 95 04/10/24 14:05 Oxygen Delivery Me thod BiPAP 04/10/24 13:23 Fraction of Inspir ed Oxygen 60 04/10/24 14:05 MDM - SOB/Dyspnea Medical Decision Making Patient presents for shortness of breath she is much improved here after BiPAP was able to switch her to oxygen I did speak to the hospitalist will admit at this time Medical Records I reviewed the patient's medical records. Lab Data I reviewed the patient's lab results. 04/10/24 14:18 04/10/24 14:18 Labs/Radiology: Radiology Impressions Chest X-Ray 04/10/24 13:37 IMPRESSION: 1. No acute findings. 2. Chronic lung changes noted Laboratory Results WBC 9.76 10^3/uL (3.29-11.43) 04/10/24 14:18 RBC 4.32 10^6/uL (3.85-5.65) 04/10/24 14:18 Hgb 11.70 g/dL (11.27-16.99) 04/10/24 14:18 Hct 38.6 % (36-47) 04/10/24 14:18 MCV 89.4 fl (85-98) 04/10/24 14:18 MCH 27.1 pg (27-33) 04/10/24 14:18 MCHC 30.3 g/dL (30-55) 04/10/24 14:18 RDW 12.8 % (12.1-15.1) 04/10/24 14:18 Plt Count 223 10^3/cmm (157-399) 04/10/24 14:18 MPV 11.5 fL (7.4-10.4) H 04/10/24 14:18 Neut % (Auto) 80.9 % 04/10/24 14:18 Lymph % (Auto) 10.2 % 04/10/24 14:18 [place] % (Auto) 7.0 % 04/10/24 14:18 Eos % (Auto) 1.4 % 04/10/24 14:18 Baso % (Auto) 0.2 % 04/10/24 14:18 Neut # (Auto) 7.89 10^3/uL (1.8-7.7) H 04/10/24 14:18 Lymph # (Auto) 1.0 10^3/uL (0.8-4.8) 04/10/24 14:18 [place] # (Auto) 0.7 10^3/uL (0.2-0.9) 04/10/24 14:18 Eos # (Auto) 0.1 10^3/uL (0.0-0.8) 04/10/24 14:18 Baso # (Auto) 0.0 10^3/uL (0.0-0.1) 04/10/24 14:18 Nucleated RBC % (auto) 0 % 04/10/24 14:18 Nucleated RBCs # 0.0 /100WBC 04/10/24 14:18 Specimen Type Arterial 04/10/24 13:52 Sample Site Radial, left 04/10/24 13:52 ABG pH 7.36 (7.35-7.45) 04/10/24 13:52 ABG pCO2 48.2 mmHg (35-45) H 04/10/24 13:52 ABG pO2 86.8 mmHg (80.0-100.0) 04/10/24 13:52 ABG PO2/FiO2 Ratio 173 04/10/24 13:52 ABG HCO3 27.2 mmol/L (22-26) H 04/10/24 13:52 ABG Base Excess 1.2 mmol/L (-2.0-2.0) 04/10/24 13:52 Tanner Test Pos 04/10/24 13:52 Hematocrit 35.9 % (37-47) L 04/10/24 13:52 Hgb O2 Saturation 95.6 % (95-100) 04/10/24 13:52 Carboxyhemoglobin 0.9 %THgb (0.4-20.1) 04/10/24 13:52 Methemoglobin 0.5 % (0.4-1.5) 04/10/24 13:52 Total Hemoglobin 11.7 g/dL (12-16) L 04/10/24 13:52 O2 Delivery Device Bipap 04/10/24 13:52 FiO2 50.0 % 04/10/24 13:52 Selling Manager ID Cak 04/10/24 13:52 Sodium 140 mmol/L (136-145) 04/10/24 14:18 Potassium 4.3 mmol/L (3.5-5.1) 04/10/24 14:18 Chloride 102 mmol/L (98-107) 04/10/24 14:18 Carbon Dioxide 21 mmol/L (22-29) L 04/10/24 14:18 Anion Gap 21.3 (5-19) H 04/10/24 14:18 BUN 18 mg/dL (8-23) 04/10/24 14:18 Creatinine 1.1 mg/dL (0.5-0.9) H 04/10/24 14:18 GFR Calculation Not Reportable 04/10/24 14:18 Glucose 234 mg/dL (65-115) H 04/10/24 14:18 Calculated Osmolality 299 mOsm/kg (285-295) H 04/10/24 14:18 Calcium 8.6 mg/dL (8.5-10.5) 04/10/24 14:18 Total Bilirubin 0.2 mg/dL (0.15-1.2) 04/10/24 14:18 AST 16 U/L (0-32) 04/10/24 14:18 ALT 8 U/L (0-33) 04/10/24 14:18 Alkaline Phosphatase 122 U/L (35-105) H 04/10/24 14:18 Troponin T Baseline 30 ng/L (0-10) H 04/10/24 14:18 NT-Pro-B Natriuret Pep 3736 pg/mL (0-450) H 04/10/24 14:18 Total Protein 6.9 g/dL (6.6-8.7) 04/10/24 14:18 Albumin 3.5 g/dL (3.5-5.2) 04/10/24 14:18 Globulin 3.4 g/dL (1.3-4.6) 04/10/24 14:18 All radiology interpretation(s) finalized by discharge Discharge Plan Discharge Patient Disposition: Admitted As Inpatient Clinical Impression: Acute dyspnea Condition: Stable Prescriptions: No Action gabapentin 600 mg tablet 600 mg PO BEDTIME ranolazine 500 mg tablet extended release 12 hr 500 mg PO BID Qty: 60 0RF furosemide 40 mg tablet 40 mg PO DAILY@0800 Qty: 90 1RF potassium chloride [Klor-Con M20] 20 mEq tablet,ER particles/crystals 20 meq PO DAILY Qty: 90 3RF atorvastatin 40 mg tablet 40 mg PO BEDTIME Qty: 90 3RF clopidogrel 75 mg tablet 75 mg PO BEDTIME Qty: 90 3RF multivitamin Tablet 1 tab PO BEDTIME tramadol 50 mg tablet 100 mg PO BEDTIME calcium carbonate 500 mg calcium (1,250 mg) Tablet 500 mg PO DAILY spironolactone 25 mg tablet 25 mg PO DAILY gemfibrozil 600 mg tablet 600 mg PO BID pantoprazole 40 mg tablet,delayed release (DR/EC) 40 mg PO DAILY nitroglycerin 0.4 mg tablet, sublingual 0.4 mg buccal PRN PRN (Reason: Chest Pain) insulin degludec [Tresiba FlexTouch U-200] 200 unit/mL (3 mL) insulin pen 27 unit SUBCUT DAILY isosorbide mononitrate 30 mg tablet extended release 24 hr 30 mg PO DAILY aspirin 81 mg Tablet,Delayed Release (Dr/Ec) 81 mg PO DAILY 30 Days Qty: 30 0RF Referrals: Antonio Delgado MD [Primary Care Provider] - Coding Level of Care Code ED Curator Of Manuscripts for Akosua Vasquez
[2024-04-10 14:03] LABS: ABG PCO2 48.2 mmHg (35-45); ABG PH Result 7.36 (7.35-7.45); Arterial Blood Gas Hematocrit 35.9 % (37-47); Base Excess ABG 1.2 mmol/L (-2.0-2.0); Blood Gas Allen Test Pos; Blood Gas Operator Identificat CAK; Blood Gas Sample Site Radial, left; Blood Gas Sample Type Arterial; Carboxyhemoglobin 0.9 %THgb (0.4-20.1); HCO3 ABG 27.2 mmol/L (22-26); HGB O2 Sat 95.6 % (95-100); Methemoglobin 0.5 % (0.4-1.5); Oxygen Device BIPAP; PO2 ABG 86.8 mmHg (80.0-100.0); PO2 FiO2 Ratio Arterial Blood 173; Total Hemoglobin 11.7 g/dL (12-16)
[2024-04-10 14:27] LABS: Basophils % 0.2 %; Eosinophils # 0.1 10^3/uL (0.0-0.8); Eosinophils % 1.4 %; Hematocrit 38.6 % (36-47); Lymphocytes % 10.2 %; Mean Corpuscular HGB Conc 30.3 g/dL (30-55); Mean Corpuscular Hemoglobin 27.1 pg (27-33); Mean Corpuscular Volume 89.4 fl (85-98); Mean Platelet Volume 11.5 fL (7.4-10.4); Monocytes # 0.7 10^3/uL (0.2-0.9); Neutrophils # 7.89 10^3/uL (1.8-7.7); Neutrophils % 80.9 %; Nucleated Red Blood Cells % 0 %; Platelet Count 223 10^3/cmm (157-399); Red Blood Count 4.32 10^6/uL (3.85-5.65); Red Cell Distribution Width 12.8 % (12.1-15.1); White Blood Count 9.76 10^3/uL (3.29-11.43)
[2024-04-10 14:48] LABS: Troponin(5th) Baseline 30 ng/L (0-10)
[2024-04-10 15:12] LABS: Albumin Level 3.5 g/dL (3.5-5.2); Alkaline Phosphatase 122 U/L (35-105); Anion Gap 21.3 (5-19); Aspartate Amino Transferase 16 U/L (0-32); Chloride 102 mmol/L (98-107); Globulin 3.4 g/dL (1.3-4.6); Glucose 234 mg/dL (65-115); Osmolality Calculated 299 mOsm/kg (285-295); Potassium 4.3 mmol/L (3.5-5.1); Sodium 140 mmol/L (136-145); Total Protein 6.9 g/dL (6.6-8.7)
[2024-04-10 15:13] LABS: Alanine Aminotransferase 8 U/L (0-33); Blood Urea Nitrogen 18 mg/dL (8-23); Calcium 8.6 mg/dL (8.5-10.5); Carbon Dioxide 21 mmol/L (22-29); Creatinine Clr Calc Pharmacy 35.6686; Total Bilirubin 0.2 mg/dL (0.15-1.2)
[2024-04-10 15:23] LABS: NT Pro B Type Natriuretic Pept 3736 pg/mL (0-450)
--- NOTE | 2024-04-10 15:29 | USCV_ITS ---
Sally Henderson Age: 83 Gender: F : 1940 Exam Date: 04/10/2024 18:02 Ordering Phys: Willem Steward MD Technologist: Stephen Perez [place] [facility] [place]: SOB, hypoxia in 60s on ER admit. BP: 127 / 98 HR: 80 Rhythm: Sinus Technical Quality: Adequate MEASUREMENTS (Male / Female) Normal Values 2D ECHO LV Diastolic Diameter PLAX 5.3 cm 4.2 - 5.9 / 3.9 - 5.3 cm IVS Diastolic Thickness 1.7 cm 0.6 - 1.0 / 0.6 - 0.9 cm IVS Systolic Thickness 2.1 cm LVPW Diastolic Thickness 1.2 cm 0.6 - 1.0 / 0.6 - 0.9 cm LVPW Systolic Thickness 1.1 cm LVOT Diameter 2.0 cm LV Ejection Fraction 2D Teich 29.4 % LV Ejection Fraction MOD 4C 37.6 % LV Ejection Fraction MOD 2C 39.8 % LV Ejection Fraction 2C AL 42.6 % LA Diameter 4.9 cm Aorta at Sinotubular Diameter 2.6 cm M-MODE LA Ao Ratio MM 1.7 AV Cusp Separation MM 1.6 cm DOPPLER AV Peak Velocity 105.0 cm/s LVOT Peak Velocity 86.0 cm/s AV Area Cont Eq vti 2.4 cm squared AV Area Cont Eq pk 2.5 cm squared MV Peak Velocity 134.0 cm/s MV Area PHT 4.3 cm squared Mitral E to A Ratio 3.6 TR Peak Velocity 312.0 cm/s TR Peak Gradient 38.9 mmHg TV Peak E Velocity 59.0 cm/s PV Peak Velocity 69.0 cm/s FINDINGS Left Ventricle Left ventricle is normal in size. LV systolic function is mildly reduced with EF of 45-50%. Moderate to severe hypokinesis of inferolateral wall. Grade 1 diastolic dysfunction. Right Ventricle Normal in size and function Right Atrium Normal in size Left Atrium Dilated Mitral Valve Mild mitral annular calcification. Moderate mitral regurgitation. Aortic Valve Aortic valve is thickened. No significant stenosis or regurgitation. Tricuspid Valve Insufficient TR jet to calculate RVSP Pulmonic Valve Not well visualized. Pericardium Normal Aorta Normal in size IVC Appears to be normal CONCLUSIONS LV systolic function is mildly reduced with EF of 45-50%. Above mentioned regional wall motion abnormalities. Grade 1 diastolic dysfunction Left atrial dilation Moderate mitral regurgitation Compared to prior echocardiogram from 02/2024, LV systolic function has decreased. Boaz Jaramillo MD (Electronically Signed) Final Date: 12 April 2024 09:31 S
--- NOTE | 2024-04-10 15:29 | CTR_ITS ---
PROCEDURE INFORMATION: Exam: CTA Chest With Contrast Exam date and time: 04/10/2024 3:44 PM Age: 83 years old Clinical indication: Shortness of breath; Prior surgery; Surgery date: 6+ months; Surgery type: Open heart; Additional info: Sudden onset shortness of breath TECHNIQUE: Imaging protocol: Computed tomographic angiography of the chest with contrast. Exam focused on the arteries. 3D rendering (Not supervised by radiologist): MIP and/or 3D reconstructed images were created by the technologist. Radiation optimization: All CT scans at this facility use at least one of these dose optimization techniques: automated exposure control; mA and/or kV adjustment per patient size (includes targeted exams where dose is matched to clinical indication); or iterative reconstruction. Contrast material: OMNIPAQUE 350; Contrast volume: 100 ml; Contrast route: INTRAVENOUS (IV); COMPARISON: CT chest [facility] [id number] 12/25/2023 9:02 PM RADIATION DOSE METRICS: Total DLP (mGy-cm): 439.04 FINDINGS: Pulmonary arteries: Normal. No pulmonary emboli. Aorta: Unremarkable. No aortic aneurysm. No aortic dissection. Lungs: Patchy density involves both lung bases. The upper lung matta are clear. Pleural spaces: Unremarkable. No pneumothorax. No pleural effusion. Heart: There is evidence of previous heart surgery with sternal sutures present. Mild cardiomegaly is noted. Lymph nodes: Unremarkable. No enlarged lymph nodes. Bones/joints: See Heart finding. Soft tissues: Unremarkable. CT/CT angio chest PE protcl [id number] IMPRESSION: 1. Bibasilar infiltrates versus atelectasis 2. Stable cardiomegaly
--- NOTE | 2024-04-10 15:31 | USR_ITS ---
PROCEDURE INFORMATION: Exam: US Duplex Lower Extremity Veins, Bilateral Exam date and time: 04/10/2024 4:48 PM Age: 83 years old Clinical indication: Swelling (edema) of limb; Lower extremity, bilateral TECHNIQUE: Imaging protocol: Real-time duplex ultrasound of the bilateral extremities with 2-D vicente scale, color Doppler flow and spectral waveform analysis including responses to compression and other maneuvers (when performed) with image documentation. Complete exam focused on the lower extremity veins. COMPARISON: US CV venous duplex [facility] [id number] 03/13/2024 4:01 PM FINDINGS: Right deep veins: Unremarkable. The common femoral, femoral, proximal profunda femoral and popliteal veins are patent without thrombus. Normal Doppler waveforms. Normal compressibility and/or augmentation response. Left deep veins: Unremarkable. The common femoral, femoral, proximal profunda femoral and popliteal veins are patent without thrombus. Normal Doppler waveforms. Normal compressibility and/or augmentation response. Superficial veins: Greater saphenous veins at the saphenofemoral junctions are patent bilaterally without thrombus. Soft tissues: Unremarkable. US/CV venous duplex [facility] [id number] IMPRESSION: No evidence of deep vein thrombosis.
[2024-04-10] MEDS: iohexol 350 mg/mL 500 mL Btl (per mL) IV (15:51)
--- NOTE | 2024-04-10 15:59 | P.HP_ITS ---
Providers/Chief Complaint 2 Primary Care Provider: Antonio Delgado MD Chief Complaint: Resp Distress History of Present Illness Sally Henderson is a 83 year old female with a past medical history of CAD, recent hospitalization for NSTEMI, history of left circumflex disease answered to tertiary center for interventions however medically managed for now, history of CABG, history of insulin-dependent type 2 diabetes mellitus, hypertension, hyperlipidemia who presents [facility] for sudden onset shortness of breath. Patient came in on BiPAP 40%, according to ER provider, in respiratory distress, she is currently alert oriented x 3, no evidence of respiratory distress, on 3 L, no nasal flaring no intercostal retraction no suprasternal retractions, does have crackles on examination. She is able to speak full sentences without feeling short of breath. O2 sats in the high 90s on 3 4 L. She tells me that she has been doing well recently, this morning, she had her normal day, she carried out her activities, she actually had lunch with her friends, after lunch, she had sudden onset shortness of breath, that came on all of a sudden, she could not catch her breath no chest pain, she called EMS, he was 60% on room air, severe respiratory distress placed on CPAP then to BiPAP. She denies any fevers, no chills, no cough, no sick contacts, no recent travel, she has chronic swelling over left lower extremity, but denies any significant weight gain, she uses all her medications as prescribed, denies aspiration, denies choking, Review of Systems 2 Const: Denies: fever(s) Card: Denies: chest pain Resp: Reports: dyspnea GI: Denies: abdominal pain : Denies: flank pain Neuro: Denies: headache(s) Endo: Denies: polyuria Medications/Allergies Home Medications Medication Instructions Recorded Confirmed Last Taken Type gabapentin 600 mg tablet 600 mg PO BEDTIME 05/28/19 04/10/24 03/12/24 08:00 History multivitamin 1 tab PO BEDTIME 09/19/20 04/10/24 03/12/24 History calcium carbonate 500 mg PO DAILY 08/29/23 04/10/24 03/12/24 History tramadol 50 mg tablet 100 mg PO BEDTIME 08/29/23 04/10/24 03/12/24 History aspirin 81 mg tablet,delayed 81 mg PO DAILY 30 days #30 tabs 12/25/23 04/10/24 03/12/24 Rx release atorvastatin 40 mg tablet 40 mg PO BEDTIME #90 tabs 03/27/24 04/10/24 Unknown Rx clopidogrel 75 mg tablet 75 mg PO BEDTIME #90 tabs 03/27/24 04/10/24 Unknown Rx furosemide 40 mg tablet 40 mg PO DAILY@0800 #90 tabs 03/27/24 04/10/24 Unknown Rx potassium chloride 20 mEq 20 meq PO DAILY #90 tabs 03/27/24 04/10/24 Unknown Rx tablet,extended release(part/cryst) (Klor-Con M) ranolazine 500 mg tablet,extended 500 mg PO BID #60 tabs 03/27/24 04/10/24 Unknown Rx release,12 hr gemfibrozil 600 mg tablet 600 mg PO BID 04/10/24 04/10/24 Unknown History insulin degludec 200 unit/mL (3 27 unit SUBCUT DAILY 04/10/24 04/10/24 Unknown History mL) subcutaneous pen (Tresiba FlexTouch U-200 insulin) isosorbide mononitrate 30 mg 30 mg PO DAILY 04/10/24 04/10/24 Unknown History tablet,extended release 24 hr nitroglycerin 0.4 mg sublingual 0.4 mg buccal PRN PRN Chest Pain 04/10/24 04/10/24 Unknown History tablet pantoprazole 40 mg tablet,delayed 40 mg PO DAILY 04/10/24 04/10/24 Unknown History release spironolactone 25 mg tablet 25 mg PO DAILY 04/10/24 04/10/24 Unknown History Allergies Allergy/AdvReac Type Severity Reaction Status Date / Time No Known Allergies Allergy Verified 03/27/24 13:49 PFSH Acute 2 PFSH: Medical History NSTEMI (non-ST elevated myocardial infarction) Hyperglycemia Hyperkalemia Elevated brain natriuretic peptide (BNP) level Hyperglycemia Hypoxic respiratory failure Dyslipidemia Contrast-induced nephropathy Type 2 diabetes mellitus without complications CAD (coronary artery disease) Acute [place] Essential (primary) hypertension Surgical History Hx of hysterectomy Hx of CABG Family History Unknown No problems noted. Social History Smoking and tobacco/nicotine status: former use of tobacco/nicotine Alcohol intake: never Substance/Drug Use: never Vitals/I&O/Wt Last Vital Signs Temp 97.6 F 04/10/24 13:23 Pulse 86 04/10/24 13:23 Resp 16 04/10/24 13:23 BP 132/107 04/10/24 13:23 Pulse Ox 95 04/10/24 14:05 O2 Del Method BiPAP 04/10/24 13:23 FiO2 60 04/10/24 14:05 Weight last 48 hrs Weight 72.575 kg Physical Exam 2 Const: COMMON NORMALS: no acute distress and patient oriented x3 Eye: COMMON NORMALS: Equal, round and reactive pupils present and EOMs intact bilaterally Neck/C-Spine: COMMON NORMALS: full ROM and no lymphadenopathy Resp: COMMON NORMALS: normal respiratory effort, No retractions and No use of accessory muscles AUSCULTATION: crackles and wheezes Cardio: COMMON NORMALS: no JVD, regular rate, regular rhythm, S1 normal heart sound present and S2 normal heart sound present RATE: regular rate RHYTHM: regular rhythm HEART SOUNDS: S1 normal heart sound present and S2 normal heart sound present GI: COMMON NORMALS: Normal to inspection, nondistended, normoactive bowel sounds present, Soft to palpation and non-tender Extremity: NARRATIVE EXTREMITY EXAM: 1+ pitting edema, left lower extremity m ore swollen compared to the right, patient reports this is chronic Neuro: COMMON NORMALS: patient oriented x3, CN's II-XII intact bilaterally and moves all extremities Psych: COMMON NORMALS: mental status grossly normal Data 04/10/24 14:18 04/10/24 14:18 A&P Assessment and plan (1) Acute hypoxic respiratory failure: Plan Acute hypoxic respiratory failure -ABG on 50% BiPAP pH 7.36, pCO2 48.2, pO2 86.8 ? Currently on 3 4 L, resting comfortably no evidence of respiratory distress ? Given sudden onset shortness of breath, findings concerning for possible pulmonary embolism versus flash pulm edema versus valvular abnormality ? Plan ? CT angiogram of the chest, venous ultrasound lower extremity ? 60 mg IV push Lasix, followed by 40 mg IV push every 12 hours starting tomorrow -Fluid restrictions at 1000 cc ? D-dimer, troponin series, CRP, Pro-Juan, respiratory viral panel -Cardiac echocardiogram ? Monitor respiratory status closely ? Can continue nasal cannula, BiPAP for shortness of breath ? Full code - Lovenox for DVT prophylaxis Type 2 diabetes mellitus, moderate dose sliding scale History of CAD CONCLUSIONS Normal LV systolic function. Normal LVEF 65%. Normal RV size and systolic function. Dilated left atrium with moderate mitral regurgitation. Normal right heart and pulmonary pressures. cath 12/2023 Conclusions 1. Severe multivessel [place] coronary artery disease. [place] to [place] is patent. Culprit lesion for ACS is heavily calcified subtotally occluded [place] left circumflex artery. After diagnostic angiogram we did not proceed with PCI attempt as this vessel will need high risk PCI with arthrectomy. We will discuss all options with patient and family including medical therapy vs high risk PCI here vs transfer to tertiary care center. Based on patient's preference, will proceed further.. 2. Patient has prior CABG. -Back in 12/29/2023 patient was transferred to [facility] she was then transferred to [place], [place], they recommended medical management, with outpatient follow- up -Currently on medical management her last hospitalization for NSTEMI and ranolazine was added -Currently denies any chest pain Plan -Cardiac echo -Aspirin, Plavix, statin, beta-sabrina, Attestations 2 Medical Necessity Statement*: Patient requires hospitalization, inpatient, greater than 2 midnights for acute hypoxic respiratory failure Diagnoses Acute hypoxic respiratory failure J96.01
[2024-04-10 16:11] LABS: D Dimer 0.86 ug/mLFEU (0-0.59)
[2024-04-10 16:12] LABS: Lactic Sepsis W/Reflex 2.2 mmol/L (0.5-2.2)
--- NOTE | 2024-04-10 16:12 | ECG_ITS ---
[employer] Test Date: 2024-04-10 Pat Name: Sally Henderson Department: Room: Gender: Female Clinical Research Physician: : 1940 Requested By: Verito Noel Order Number: [id number] Leonora MD: Angela Lopez M.D. Measurements Intervals [place] Rate: 90 P: 57 CT: 163 QRS: -48 QRSD: 117 T: 136 QT: 369 QTc: 452 Interpretive Statements SINUS RHYTHM WITH SINUS ARRHYTHMIA PATTERN CONSISTENT WITH PULMONARY DISEASE RIGHT BUNDLE BRANCH BLOCK [120+ ms QRS DURATION, UPRIGHT V1, 40+ ms S IN I/aVL/V4/V5/V6].LEFT ANTERIOR FASCICULAR BLOCK [QRS AXIS <= -45, QR IN I, RS IN II] ST DEVIATION AND MODERATE T-WAVE ABNORMALITY, CONSIDER LATERAL ISCHEMIA [-0.1+ mV T-WAVE IN I/aVL/V5/V6].Compared to ECG 04/10/2024 14:01:54 . T-wave abnormality now present. Possible ischemia now present Left-axis deviation no longer present .Incomplete right bundle-branch block no longer present Left ventricular hypertrophy no longer present.ST (T wave) deviation no longer present Electronically Signed On 04-10-2024 19:23:35 [employer] by Angela Lopez M.D. [email or web address]
[2024-04-10] MEDS: FUROsemide 10 mg/mL SDV 10mL 60 MG IVP (16:24)
[2024-04-10 16:36] LABS: Procalcitonin 0.03 ng/mL (0-0.5)
[2024-04-10 16:57] LABS: C Reactive Protein 4.6 mg/L (0.0-4.9)
[2024-04-10 17:32] LABS: Reflex Lactate Order REFLEX LACTIC ORDERD
[2024-04-10 17:46] LABS: Troponin 5 2HR 72.37 ng/L (0-10)
[2024-04-10 18:04] LABS: Troponin 5 2HR Delta 42.37 ABS# (0-10)
[2024-04-10 18:04] LABS: Covid PCR NEGATIVE (Negative); Influenza A NEGATIVE (Negative); Influenza B NEGATIVE (Negative); Respiratory Syncytial Virus Ce NEGATIVE (Negative)
[2024-04-10 18:29] LABS: Glucose Point of Care 252 mg/dL (70-110)
[2024-04-10 18:31] LABS: Chol HDL Ratio 2.37 mg/dL (0.0-4.40); Cholesterol 147 mg/dL (0-200); HDL Cholesterol 62 mg/dL (60-100); LDL Cholesterol Calculated 64 mg/dL (50-129); LDL HDL Ratio 1.03 RATIO (0.00-3.22); Thyroid Stimulating Hormone 5.68 uIU/mL (0.27-4.20); Triglycerides 105 mg/dL (0-150)
[2024-04-10 19:09] LABS: Lactic Acid level (Lactate) 2.1 mmol/L (0.5-2.2)
[2024-04-10] MEDS: AZITHROMYCIN ADD-Vantage 500 MG in 0.9% NaCl ADD-Vantage 250 ML 250 MG IV (19:36)
[2024-04-10] MEDS: pantoprazole 40 mg SDV IVP (19:37)
[2024-04-10] MEDS: ranolazine (12HR) 500 mg Tablet PO (19:38)
[2024-04-10] MEDS: cefTRIAXone 1,000 mg SDV 1000 MG IVP (19:38)
[2024-04-10 20:07] LABS: Estmated Average Glucose 169; Hemoglobin A1C 7.5 % (4.0-6.0)
[2024-04-10 21:01] LABS: Glucose Point of Care 296 mg/dL (70-110)
[2024-04-10 21:31] LABS: Troponin 5 6HR 164.8 ng/L (0-10); Troponin 5 6HR Delta 134.8 ng/L (0-12)
[2024-04-10 21:38] LABS: Bilirubin Urine Negative (Negative); Blood Urine Negative (Negative); Glucose Urine UA Negative (Normal); Ketones Urine Negative (Negative); Leukocyte Esterase Urine Negative (Negative); Nitrate Urine Negative (Negative); Protein Urine Negative (Negative); Specific Gravity, Urine 1.012 (1.005-1.030); Urine Appearance Clear (CLEAR); Urine Color Yellow (Yellow); Urobilinogen Urine 0.2 mg/dL (Negative)
[2024-04-10] MEDS: atorvastatin 40 mg Tablet PO (21:38)
[2024-04-10] MEDS: gabapentin 300 mg Capsule 600 MG PO (21:38)
[2024-04-10] MEDS: clopidogrel 75 mg Tablet PO (21:38)
[2024-04-10] MEDS: insulin lispro 100 unit/1 mL SUBCUT (21:38)
[2024-04-10] MEDS: enoxaparin 40 mg/0.4 mL Syringe SUBCUT (21:38)
[2024-04-10 21:42] LABS: Add Urine Microscopic? YES; Bacteria Urine None Seen /hpf; Hyaline Casts Urine 0-4 /lpf; RBC Urine 0-2 /hpf (0-2); Squamous Epithelial Cell Urine 0-5 /hpf (0-5); WBC Urine 0-5 /hpf (0-5)
[2024-04-11] VITALS (9 sets, daily range): BP systolic 108–143; BP diastolic 46–78; PULSE 63–81; RESP 20–26; TEMP 36.6–36.8; O2SAT 90–99
[2024-04-11] MEDS: enoxaparin 30 mg/0.3 mL Syringe SUBCUT (00:47)
[2024-04-11 03:56] LABS: Basophils % 0.1 %; Eosinophils # 0.3 10^3/uL (0.0-0.8); Eosinophils % 2.6 %; Hematocrit 35.6 % (36-47); Lymphocytes # 1.9 10^3/uL (0.8-4.8); Mean Corpuscular Hemoglobin 27.8 pg (27-33); Mean Corpuscular Volume 86.8 fl (85-98); Mean Platelet Volume 11.4 fL (7.4-10.4); Monocytes # 1.1 10^3/uL (0.2-0.9); Monocytes % 10.8 %; Neutrophils # 6.65 10^3/uL (1.8-7.7); Neutrophils % 67.2 %; Nucleated Red Blood Cells % 0 %; Platelet Count 256 10^3/cmm (157-399)
[2024-04-11 04:21] LABS: Alanine Aminotransferase 11 U/L (0-33); Albumin Level 3.6 g/dL (3.5-5.2); Alkaline Phosphatase 124 U/L (35-105); Aspartate Amino Transferase 25 U/L (0-32); Blood Urea Nitrogen 19 mg/dL (8-23); Calcium 8.6 mg/dL (8.5-10.5); Carbon Dioxide 31 mmol/L (22-29); Chloride 104 mmol/L (98-107); Creatinine Clr Calc Pharmacy 39.2354; Globulin 3.1 g/dL (1.3-4.6); Glucose 115 mg/dL (65-115); Magnesium 2.1 mg/dL (1.7-2.3); Osmolality Calculated 305 mOsm/kg (285-295); Phosphorus 4.3 mg/dL (2.5-4.5); Sodium 146 mmol/L (136-145); Total Bilirubin 0.2 mg/dL (0.15-1.2); Total Protein 6.7 g/dL (6.6-8.7)
[2024-04-11 04:27] LABS: NT Pro B Type Natriuretic Pept 8893 pg/mL (0-450)
[2024-04-11] MEDS: FUROsemide 10 mg/mL SDV 4mL 40 MG IVP ×2 (05:34→17:52)
[2024-04-11 06:20] LABS: Glucose Point of Care 146 mg/dL (70-110)
[2024-04-11] MEDS: enoxaparin 100 mg/mL Syringe 70 MG SUBCUT ×2 (08:18→21:02)
[2024-04-11] MEDS: ranolazine (12HR) 500 mg Tablet PO ×2 (08:18→17:52)
[2024-04-11] MEDS: insulin lispro 100 unit/1 mL SUBCUT ×3 (08:18→22:11)
[2024-04-11] MEDS: isosorbide mononitrate ER 30 mg Tablet PO (08:19)
[2024-04-11] MEDS: aspirin 81 mg EC Tablet PO (08:19)
[2024-04-11] MEDS: spironolactone 25 mg Tablet PO (08:19)
--- NOTE | 2024-04-11 08:31 | P.CONIM_ITS ---
Providers/Reason For Consult 2 Consulting Physician/Specialty*: Boaz Jaramillo MD/ Cardiology Reason for Consult*: NSTEMI Requesting Physician: NSTEMI Attending Physician: Willem Steward MD Primary Care Provider: Antonio Delgado MD History of Present Illness History of Present Illness Sally Henderson is a 83 year old female with past medical history of coronary artery disease status post unsuccessful revascularization of complex, calcified left circumflex artery, transferred to tertiary care centers however no revascularization options available scented to hospital with shortness of breath. No chest pain. Troponins are significantly elevated with baseline value of 30 that trended up to 164 at 6 hours. EKG shows incomplete right bundle branch block with no significant ischemic changes. Review of Systems 2 Const: Denies: fever(s) Card: Reports: chest pain Resp: Reports: dyspnea GI: Denies: abdominal pain : Denies: flank pain Medications/Allergies Home Medications Medication Instructions Recorded Confirmed Last Taken Type gabapentin 600 mg tablet 600 mg PO BEDTIME 05/28/19 04/10/24 03/12/24 08:00 History multivitamin 1 tab PO BEDTIME 09/19/20 04/10/24 03/12/24 History calcium carbonate 500 mg PO DAILY 08/29/23 04/10/24 03/12/24 History tramadol 50 mg tablet 100 mg PO BEDTIME 08/29/23 04/10/24 03/12/24 History aspirin 81 mg tablet,delayed 81 mg PO DAILY 30 days #30 tabs 12/25/23 04/10/24 03/12/24 Rx release atorvastatin 40 mg tablet 40 mg PO BEDTIME #90 tabs 03/27/24 04/10/24 Unknown Rx clopidogrel 75 mg tablet 75 mg PO BEDTIME #90 tabs 03/27/24 04/10/24 Unknown Rx furosemide 40 mg tablet 40 mg PO DAILY@0800 #90 tabs 03/27/24 04/10/24 Unknown Rx potassium chloride 20 mEq 20 meq PO DAILY #90 tabs 03/27/24 04/10/24 Unknown Rx tablet,extended release(part/cryst) (Klor-Con M) ranolazine 500 mg tablet,extended 500 mg PO BID #60 tabs 03/27/24 04/10/24 Unknown Rx release,12 hr gemfibrozil 600 mg tablet 600 mg PO BID 04/10/24 04/10/24 Unknown History insulin degludec 200 unit/mL (3 27 unit SUBCUT DAILY 04/10/24 04/10/24 Unknown History mL) subcutaneous pen (Tresiba FlexTouch U-200 insulin) isosorbide mononitrate 30 mg 30 mg PO DAILY 04/10/24 04/10/24 Unknown History tablet,extended release 24 hr nitroglycerin 0.4 mg sublingual 0.4 mg buccal PRN PRN Chest Pain 04/10/24 04/10/24 Unknown History tablet pantoprazole 40 mg tablet,delayed 40 mg PO DAILY 04/10/24 04/10/24 Unknown History release spironolactone 25 mg tablet 25 mg PO DAILY 04/10/24 04/10/24 Unknown History Allergies Allergy/AdvReac Type Severity Reaction Status Date / Time No Known Allergies Allergy Verified 03/27/24 13:49 Current Medications Generic Name Dose Route Start Last Admin Trade Name Freq PRN Reason Stop Dose Admin Aspirin 81 mg 04/11/24 09:00 04/11/24 08:19 Aspirin 81 Mg Ec Tablet PO 81 mg DAILY LI Administration Atorvastatin Calcium 40 mg 04/10/24 21:00 04/10/24 21:38 Atorvastatin 40 Mg Tablet PO 40 mg BEDTIME LI Administration Ceftriaxone Sodium 1,000 mg 04/10/24 17:37 04/10/24 19:38 Ceftriaxone 1,000 Mg Sdv IVP 1,000 mg Q24H LI Administration Protocol Clopidogrel Bisulfate 75 mg 04/10/24 21:00 04/10/24 21:38 Clopidogrel 75 Mg Tablet PO 75 mg BEDTIME LI Administration Enoxaparin Sodium 70 mg 04/11/24 09:00 04/11/24 08:18 Enoxaparin 100 Mg/Ml Syringe 1 mg/kg (70 mg) 70 mg SUBCUT Administration Q12H IL Furosemide 40 mg 04/11/24 06:00 04/11/24 05:34 Furosemide 10 Mg/Ml Sdv 4ml IVP 40 mg Q12H LI Administration Gabapentin 600 mg 04/10/24 21:00 04/10/24 21:38 Gabapentin 300 Mg Capsule PO 600 mg BEDTIME LI Administration Azithromycin 500 mg/ Sodium 250 mls @ 250 mls/hr 04/10/24 17:37 04/10/24 22:14 Chloride IV Infused Q24H IL Infusion Protocol Insulin Human Lispro 0 unit 04/10/24 18:00 04/11/24 08:18 Insulin Lispro 100 Unit/1 Ml SUBCUT 4 unit WM&BEDTIME LI Administration Protocol Isosorbide Mononitrate 30 mg 04/11/24 09:00 04/11/24 08:19 Isosorbide Mononitrate Er 30 Mg Tablet PO 30 mg DAILY LI Administration Pantoprazole Sodium 40 mg 04/10/24 17:37 04/10/24 19:37 Pantoprazole 40 Mg Sdv IVP 40 mg Q24H LI Administration Ranolazine 500 mg 04/10/24 18:00 04/11/24 08:18 Ranolazine (12hr) 500 Mg Tablet PO 500 mg BID LI Administration Spironolactone 25 mg 04/11/24 09:00 04/11/24 08:19 Spironolactone 25 Mg Tablet PO 25 mg DAILY LI Administration PFSH Acute 2 PFSH: Medical History NSTEMI (non-ST elevated myocardial infarction) Hyperglycemia Hyperkalemia Elevated brain natriuretic peptide (BNP) level Hyperglycemia Hypoxic respiratory failure Dyslipidemia Contrast-induced nephropathy Type 2 diabetes mellitus without complications CAD (coronary artery disease) Acute [place] Essential (primary) hypertension Surgical History Hx of hysterectomy Hx of CABG Family History Unknown No problems noted. Social History Smoking and tobacco/nicotine status: former use of tobacco/nicotine Alcohol intake: never Substance/Drug Use: never Vitals/I&O/Wt Last Vital Signs Temp 98.0 F 04/11/24 07:53 Pulse 67 04/11/24 07:53 Resp 22 H 04/11/24 07:53 BP 142/72 04/11/24 07:53 Pulse Ox 90 04/11/24 07:53 O2 Del Method Nasal Cannula 04/11/24 07:53 FiO2 50 04/10/24 17:20 11/27/24 11/28/24 11/28/24 22:59 06:59 14:59 Intake Total 500 / 500 250 / 750 Output Total 800 / 800 600 / 1400 825 / 825 Balance -300 / -300 -350 / -650 -825 / -825 Weight last 48 hrs Weight 160 lb Weight 160 lb Weight 160 lb Physical Exam 2 Narrative: GENERAL: Patient is alert, awake and oriented x3. [] NECK: No jugular vein distension. [] HEENT: No cyanosis. No icterus. No pallor. [] HEART: Regular S1 and S2. No murmur, rub or gallop. [] LUNGS: Clear to auscultate bilaterally. [] CENTRAL NERVOUS SYSTEM: Grossly nonfocal. [] EXTREMITIES: Lower extremities with 1+ edema bilaterally. Urinary Catheter Management: Huff: Cath Placed During This Visit: yes Reason for Continuing Indwelling Catheter: Other Urinary Catheter Date of Insertion: 04/10/24 Urinary Catheter Time of Insertion: 20:30 Data 04/12/24 04:20 04/12/24 04:20 A&P Assessment and plan (1) Non-ST elevation [place] (NSTEMI): (2) CAD (coronary artery disease): (3) Essential (primary) hypertension: (4) Type 2 diabetes mellitus without complications: Plan Patient has complex subtotal occluded circumflex artery that could not be revascularized. This has been culprit for recurrent NSTEMI episodes. We will continue with medical therapy. Continue aspirin and Plavix. Anticoagulation for 48 hours. ECHO ordered Thank you for involving us with care of this patient. We will continue to follow. Please call with questions. Consult Attestations 2 Medical Necessity Statement: Care expected to cross 2 midnights. Coding Level of Care Code Acute Code for [facility] Diagnoses Non-ST elevation [place] (NSTEMI) I21.4 CAD (coronary artery disease) I25.10 Essential (primary) hypertension I10 Type 2 diabetes mellitus without complications E11.9
[2024-04-11 11:50] LABS: Glucose Point of Care 235 mg/dL (70-110)
--- NOTE | 2024-04-11 13:07 | P.PN_ITS ---
Subjective 2 Subjective: Patient was seen this morning, she denies any fevers, no chills, no cough does report weakness, or shortness of breath is improving, no chest pain overnight Vitals/I&O/Wt Last Vital Signs Temp 98.0 F 04/11/24 11:22 Pulse 74 04/11/24 11:22 Resp 20 H 04/11/24 11:22 BP 121/64 04/11/24 11:22 Pulse Ox 97 04/11/24 11:22 O2 Del Method Nasal Cannula 04/11/24 11:22 FiO2 50 04/10/24 17:20 04/10/24 04/11/24 04/11/24 22:59 06:59 14:59 Intake Total 500 / 500 250 / 750 840 / 840 Output Total 800 / 800 600 / 1400 825 / 825 Balance -300 / -300 -350 / -650 15 / Weight last 48 hrs Weight 72.575 kg Weight 72.575 kg Weight 72.575 kg Physical Exam 2 Const: COMMON NORMALS: no acute distress and patient oriented x3 Resp: COMMON NORMALS: normal respiratory effort, No retractions, No use of accessory muscles and clear to auscultation bilaterally AUSCULTATION: clear to auscultation bilaterally Cardio: COMMON NORMALS: regular rate, regular rhythm, S1 normal heart sound present and S2 normal heart sound present RATE: regular rate RHYTHM: r egular rhythm HEART SOUNDS: S1 normal heart sound present and S2 normal heart sound present GI: COMMON NORMALS: Normal to inspection, nondistended, normoactive bowel sounds present and non-tender Extremity: COMMON NORMALS: no pedal edema Neuro: COMMON NORMALS: patient oriented x3 Psych: COMMON NORMALS: mental status grossly normal Urinary Catheter Management: Huff: Cath Placed During This Visit: yes Reason for Continuing Indwelling Catheter: Other Urinary Catheter Date of Insertion: 04/10/24 Urinary Catheter Time of Insertion: 20:30 Data 04/11/24 03:24 04/11/24 03:24 A&P Assessment and plan (1) Acute hypoxic respiratory failure: (2) Coronary artery disease: (3) NSTEMI (non-ST elevated myocardial infarction): (4) Acute exacerbation of CHF (congestive heart failure): (5) Pulmonary edema: Plan Acute hypoxic respiratory failure -ABG on 50% BiPAP pH 7.36, pCO2 48.2, pO2 86.8 ? Given sudden onset shortness of breath, findings concerning for flash pulm edema, acute systolic diastolic CHF exacerbation -CTA negative for PE, venous ultrasound negative for DVT ? Plan ? Lasix 40 mg IV push every 12 hours starting tomorrow -Fluid restrictions at 1000 cc -Cardiac echocardiogram ? Monitor respiratory status closely ? Can continue nasal cannula, BiPAP for shortness of breath ? Full code - Lovenox for DVT prophylaxis CT angiogram the chest shows bibasilar infiltrates 's findings concerning for pneumonia ? Continue Rocephin Continue Zithromycin Type 2 diabetes mellitus, moderate dose sliding scale History of CAD, NSTEMI CONCLUSIONS Normal LV systolic function. Normal LVEF 65%. Normal RV size and systolic function. Dilated left atrium with moderate mitral regurgitation. Normal right heart and pulmonary pressures. cath 12/2023 Conclusions 1. Severe multivessel [place] coronary artery disease. [place] to [place] is patent. Culprit lesion for ACS is heavily calcified subtotally occluded [place] left circumflex artery. After diagnostic angiogram we did not proceed with PCI attempt as this vessel will need high risk PCI with arthrectomy. We will discuss all options with patient and family including medical therapy vs high risk PCI here vs transfer to tertiary care center. Based on patient's preference, will proceed further.. 2. Patient has prior CABG. -Back in 12/29/2023 patient was transferred to [facility] she was then transferred to [place], at [place], they recommended medical management, with outpatient follow- up -Currently on medical management her last hospitalization for NSTEMI and ranolazine was added -Currently denies any chest pain # Positive delta troponin 6-hour troponin 164, delta 134 Plan -Cardiac echo -Aspirin, Plavix, statin, beta-sabrina, ? Therapeutic Lovenox Consult cardiology Spoke to patient, spoke to nursing staff, consulted cardiology spoke to Dr. Jaramillo discussed case Attestations 2 Medical Necessity Statement*: Patient requires hospitalization for acute hypoxic respiratory failure secondary to CHF, pulm edema, pneumonia, CAD, NSTEMI Diagnoses Acute hypoxic respiratory failure J96.01 Coronary artery disease I25.10 NSTEMI (non-ST elevated myocardial infarction) I21.4 Acute exacerbation of CHF (congestive heart failure) I50.9 Pulmonary edema J81.1
[2024-04-11 16:50] LABS: Glucose Point of Care 95 mg/dL (70-110)
[2024-04-11] MEDS: AZITHROMYCIN ADD-Vantage 500 MG in 0.9% NaCl ADD-Vantage 250 ML 250 MG IV (17:52)
[2024-04-11] MEDS: cefTRIAXone 1,000 mg SDV 1000 MG IVP (17:52)
[2024-04-11] MEDS: pantoprazole 40 mg SDV IVP (17:52)
[2024-04-11] MEDS: clopidogrel 75 mg Tablet PO (21:02)
[2024-04-11] MEDS: gabapentin 300 mg Capsule 600 MG PO (21:02)
[2024-04-11] MEDS: atorvastatin 40 mg Tablet PO (21:02)
[2024-04-11 21:28] LABS: Glucose Point of Care 341 mg/dL (70-110)
[2024-04-12] VITALS (59 sets, daily range): BP systolic 106–152; BP diastolic 63–83; PULSE 62–88; RESP 15–39; TEMP 36.4–36.7; O2SAT 78–100
[2024-04-12 05:05] LABS: Basophils % 0.1 %; Eosinophils # 0.3 10^3/uL (0.0-0.8); Eosinophils % 3.5 %; Hematocrit 37.5 % (36-47); Mean Corpuscular HGB Conc 31.7 g/dL (30-55); Mean Corpuscular Volume 85.2 fl (85-98); Mean Platelet Volume 11.7 fL (7.4-10.4); Monocytes % 10.4 %; Neutrophils # 6.27 10^3/uL (1.8-7.7); Neutrophils % 64.6 %; Nucleated Red Blood Cells % 0 %; Platelet Count 281 10^3/cmm (157-399); Red Cell Distribution Width 12.8 % (12.1-15.1); White Blood Count 9.71 10^3/uL (3.29-11.43)
[2024-04-12] MEDS: FUROsemide 10 mg/mL SDV 4mL 40 MG IVP (05:26)
[2024-04-12] MEDS: ALPRAZolam 0.5 mg Tablet 0.25 MG PO (05:26)
[2024-04-12 05:32] LABS: Alanine Aminotransferase 9 U/L (0-33); Albumin Level 3.6 g/dL (3.5-5.2); Alkaline Phosphatase 119 U/L (35-105); Anion Gap 13.7 (5-19); Aspartate Amino Transferase 17 U/L (0-32); Blood Urea Nitrogen 22 mg/dL (8-23); Calcium 8.8 mg/dL (8.5-10.5); Carbon Dioxide 33 mmol/L (22-29); Chloride 100 mmol/L (98-107); Creatinine Clr Calc Pharmacy 34.0335; Globulin 3.2 g/dL (1.3-4.6); Glucose 142 mg/dL (65-115); Magnesium 1.9 mg/dL (1.7-2.3); Osmolality Calculated 302 mOsm/kg (285-295); Phosphorus 4.4 mg/dL (2.5-4.5); Potassium 3.7 mmol/L (3.5-5.1); Sodium 143 mmol/L (136-145); Total Bilirubin 0.2 mg/dL (0.15-1.2); Total Protein 6.8 g/dL (6.6-8.7)
[2024-04-12 05:33] LABS: NT Pro B Type Natriuretic Pept 3603 pg/mL (0-450)
[2024-04-12 06:23] LABS: Glucose Point of Care 159 mg/dL (70-110)
[2024-04-12] MEDS: enoxaparin 100 mg/mL Syringe 70 MG SUBCUT (08:07)
[2024-04-12] MEDS: insulin lispro 100 unit/1 mL SUBCUT ×4 (08:08→21:25)
[2024-04-12] MEDS: isosorbide mononitrate ER 30 mg Tablet PO (08:08)
[2024-04-12] MEDS: spironolactone 25 mg Tablet PO (08:08)
[2024-04-12] MEDS: ranolazine (12HR) 500 mg Tablet PO ×2 (08:08→17:52)
[2024-04-12] MEDS: aspirin 81 mg EC Tablet PO (08:08)
--- NOTE | 2024-04-12 08:32 | PM.PN ---
Subjective Subjective: Patient is doing well. No chest pain. Vitals/I&O/Wt Last Vital Signs Temp 98.0 F 04/12/24 07:50 Pulse 75 04/12/24 08:10 Resp 18 04/12/24 08:10 BP 118/76 04/12/24 07:50 Pulse Ox 95 04/12/24 08:10 O2 Del Method Nasal Cannula 04/12/24 08:10 O2 Flow Rate 2 04/12/24 08:10 FiO2 50 04/10/24 17:20 04/11/24 04/12/24 04/12/24 22:59 06:59 14:59 Intake Total 402 / 1242 250 / 1492 Output Total 1725 / 2550 300 / 2850 Balance -1323 / -1308 -50 / -1358 Weight last 48 hrs Weight 172 lb 11.2 oz Weight 160 lb Weight 160 lb Weight 160 lb Physical Exam Narrative: GENERAL: Patient is alert, awake and oriented x3. [] NECK: No jugular vein distension. [] HEENT: No cyanosis. No icterus. No pallor. [] HEART: Regular S1 and S2. No murmur, rub or gallop. [] LUNGS: Clear to auscultate bilaterally. [] CENTRAL NERVOUS SYSTEM: Grossly nonfocal. [] EXTREMITIES: Lower extremities with 1+ edema bilaterally. Urinary Catheter Management: Huff: Cath Placed During This Visit: yes Reason for Continuing Indwelling Catheter: Accurate Measurement of Urinary Output in Critically Ill Patients Urinary Catheter Date of Insertion: 04/10/24 Urinary Catheter Time of Insertion: 20:30 Data 04/12/24 04:20 04/12/24 04:20 A&P Assessment and plan (1) Non-ST elevation IA (NSTEMI): (2) CAD (coronary artery disease): (3) Essential (primary) hypertension: (4) Type 2 diabetes mellitus without complications: Plan Dual antiplatelet therapy. Complete anticoagulation. Has diuresed well. Thank you for involving us with care of this patient. Patient is stable to be discharged from cardiology standpoint. Please call with questions. Attestations Medical Necessity Statement*: Care expected to cross 2 mindights. Coding Level of Care Code Acute Code for [facility] Diagnoses Non-ST elevation IA (NSTEMI) I21.4 CAD (coronary artery disease) I25.10 Essential (primary) hypertension I10 Type 2 diabetes mellitus without complications E11.9
[2024-04-12 11:32] LABS: Glucose Point of Care 292 mg/dL (70-110)
--- NOTE | 2024-04-12 14:29 | PM.PN ---
Subjective Subjective: Patient was seen this morning, her shortness of breath is improving, denies any fevers, no chills, does report weakness Vitals/I&O/Wt Last Vital Signs Temp 98.0 F 04/12/24 12:00 Pulse 81 04/12/24 12:00 Resp 19 H 04/12/24 12:00 BP 123/74 04/12/24 12:00 Pulse Ox 95 04/12/24 12:00 O2 Del Method Nasal Cannula 04/12/24 12:00 O2 Flow Rate 2 04/12/24 08:10 FiO2 50 04/10/24 17:20 04/11/24 04/12/24 04/12/24 22:59 06:59 14:59 Intake Total 402 / 1242 250 / 1492 460 / 460 Output Total 1725 / 2550 300 / 2850 800 / 800 Balance -1323 / -1308 -50 / -1358 -340 / -340 Weight last 48 hrs Weight 78.335 kg Weight 72.575 kg Weight 72.575 kg Physical Exam Const: COMMON NORMALS: no acute distress and patient oriented x3 Resp: COMMON NORMALS: normal respiratory effort, No retractions and No use of accessory muscles AUSCULTATION: crackles Cardio: COMMON NORMALS: regular rate, regular rhythm, S1 normal heart sound present and S2 normal heart sound present RATE: regular rate RHYTHM: regular rhythm HEART SOUNDS: S1 normal heart sound present and S2 normal heart sound present GI: COMMON NORMALS: Normal to inspection, nondistended, normoactive bowel sounds present and non-tender Extremity: COMMON NORMALS: no pedal edema Neuro: COMMON NORMALS: patient oriented x3 Psych: COMMON NORMALS: mental status grossly normal Urinary Catheter Management: Huff: Cath Placed During This Visit: yes Reason for Continuing Indwelling Catheter: Accurate Measurement of Urinary Output in Critically Ill Patients Urinary Catheter Date of Insertion: 04/10/24 Urinary Catheter Time of Insertion: 20:30 Data 04/12/24 04:20 04/12/24 04:20 A&P Assessment and plan (1) Acute hypoxic respiratory failure: (2) Coronary artery disease: (3) NSTEMI (non-ST elevated myocardial infarction): (4) Acute exacerbation of CHF (congestive heart failure): (5) Pulmonary edema: Plan Acute hypoxic respiratory failure -ABG on 50% BiPAP pH 7.36, pCO2 48.2, pO2 86.8 ? Given sudden onset shortness of breath, findings concerning for flash pulm edema, acute systolic diastolic CHF exacerbation -CTA negative for PE, venous ultrasound negative for DVT ? Plan ? 1 dose IV Lasix today hold creatinine 1.2 -Fluid restrictions at 1000 cc -Cardiac echocardiogram ? Monitor respiratory status closely ? Can continue nasal cannula, BiPAP for shortness of breath ? Full code - Lovenox for DVT prophylaxis CT angiogram the chest shows bibasilar infiltrates 's findings concerning for pneumonia ? Continue Rocephin Continue Zithromycin Type 2 diabetes mellitus, moderate dose sliding scale History of CAD, NSTEMI CONCLUSIONS Normal LV systolic function. Normal LVEF 65%. Normal RV size and systolic function. Dilated left atrium with moderate mitral regurgitation. Normal right heart and pulmonary pressures. cath 12/2023 Conclusions 1. Severe multivessel [place] coronary artery disease. [place] to [place] is patent. Culprit lesion for ACS is heavily calcified subtotally occluded [place] left circumflex artery. After diagnostic angiogram we did not proceed with PCI attempt as this vessel will need high risk PCI with arthrectomy. We will discuss all options with patient and family including medical therapy vs high risk PCI here vs transfer to tertiary care center. Based on patient's preference, will proceed further.. 2. Patient has prior CABG. -Back in 12/29/2023 patient was transferred to [facility] she was then transferred to [place], at [place], they recommended medical management, with outpatient follow-up -Currently on medical management her last hospitalization for NSTEMI and ranolazine was added -Currently denies any chest pain # Positive delta troponin 6-hour troponin 164, delta 134 Plan -Cardiac echo CONCLUSIONS LV systolic function is mildly reduced with EF of 45-50%. Above mentioned regional wall motion abnormalities. Grade 1 diastolic dysfunction Left atrial dilation Moderate mitral regurgitation Compared to prior echocardiogram from 02/2024, LV systolic function has decreased. -Aspirin, Plavix, statin, beta-sabrina, ? Therapeutic Lovenox Consult cardiology Plan for today continue therapeutic Lovenox IV antibiotics, 1 dose of IV Lasix today hold off on further diuresis given creatinine 1.2 Attestations Medical Necessity Statement*: Patient requires hospitalization for acute hypoxic respiratory failure, CAD pneumonia Diagnoses Acute hypoxic respiratory failure J96.01 Coronary artery disease I25.10 NSTEMI (non-ST elevated myocardial infarction) I21.4 Acute exacerbation of CHF (congestive heart failure) I50.9 Pulmonary edema J81.1
[2024-04-12 17:16] LABS: Glucose Point of Care 218 mg/dL (70-110)
[2024-04-12] MEDS: pantoprazole 40 mg SDV IVP (17:52)
[2024-04-12] MEDS: cefTRIAXone 1,000 mg SDV 1000 MG IVP (17:52)
[2024-04-12] MEDS: AZITHROMYCIN ADD-Vantage 500 MG in 0.9% NaCl ADD-Vantage 250 ML 250 MG IV (17:53)
[2024-04-12 20:43] LABS: Glucose Point of Care 268 mg/dL (70-110)
[2024-04-12] MEDS: acetaminophen 325 mg Tablet 650 MG PO (21:22)
[2024-04-12] MEDS: gabapentin 300 mg Capsule 600 MG PO (21:22)
[2024-04-12] MEDS: atorvastatin 40 mg Tablet PO (21:23)
[2024-04-12] MEDS: clopidogrel 75 mg Tablet PO (21:23)
[2024-04-13] VITALS: BP 130/77; PULSE 70; RESP 18; TEMP 36.8; O2SAT 98
[2024-04-13 04:00] VITALS: BP 143/82; PULSE 75; RESP 19; TEMP 36.7; O2SAT 96
[2024-04-13 04:29] LABS: Basophils % 0.2 %; Eosinophils # 0.4 10^3/uL (0.0-0.8); Eosinophils % 3.8 %; Hematocrit 38.4 % (36-47); Lymphocytes # 2.1 10^3/uL (0.8-4.8); Lymphocytes % 19.9 %; Mean Corpuscular HGB Conc 30.7 g/dL (30-55); Mean Corpuscular Hemoglobin 26.8 pg (27-33); Mean Corpuscular Volume 87.3 fl (85-98); Mean Platelet Volume 11.9 fL (7.4-10.4); Monocytes % 9.9 %; Neutrophils # 6.92 10^3/uL (1.8-7.7); Neutrophils % 65.9 %; Nucleated Red Blood Cells % 0 %; Platelet Count 277 10^3/cmm (157-399); Red Cell Distribution Width 12.6 % (12.1-15.1)
[2024-04-13 04:53] LABS: Alanine Aminotransferase 8 U/L (0-33); Albumin Level 3.5 g/dL (3.5-5.2); Alkaline Phosphatase 117 U/L (35-105); Aspartate Amino Transferase 14 U/L (0-32); Blood Urea Nitrogen 24 mg/dL (8-23); Calcium 8.7 mg/dL (8.5-10.5); Carbon Dioxide 32 mmol/L (22-29); Chloride 101 mmol/L (98-107); Creatinine Clr Calc Pharmacy 37.1275; Globulin 2.7 g/dL (1.3-4.6); Glucose 118 mg/dL (65-115); Magnesium 1.9 mg/dL (1.7-2.3); Osmolality Calculated 299 mOsm/kg (285-295); Phosphorus 4.3 mg/dL (2.5-4.5); Sodium 142 mmol/L (136-145); Total Bilirubin 0.2 mg/dL (0.15-1.2); Total Protein 6.2 g/dL (6.6-8.7)
[2024-04-13 05:04] LABS: NT Pro B Type Natriuretic Pept 2354 pg/mL (0-450)
[2024-04-13] MEDS: enoxaparin 40 mg/0.4 mL Syringe SUBCUT (05:44)
[2024-04-13 06:00] VITALS: PULSE 66
[2024-04-13 06:32] LABS: Glucose Point of Care 189 mg/dL (70-110)
[2024-04-13 07:36] VITALS: BP 150/80; PULSE 69; RESP 14; TEMP 36.7; O2SAT 99
[2024-04-13 08:00] VITALS: PULSE 78; RESP 16; O2SAT 94
[2024-04-13] MEDS: spironolactone 25 mg Tablet PO (08:41)
[2024-04-13] MEDS: isosorbide mononitrate ER 30 mg Tablet PO (08:41)
[2024-04-13] MEDS: insulin lispro 100 unit/1 mL SUBCUT (08:41)
[2024-04-13] MEDS: ranolazine (12HR) 500 mg Tablet PO (08:41)
[2024-04-13] MEDS: aspirin 81 mg EC Tablet PO (08:41)
[2024-04-13] MEDS: FUROsemide 10 mg/mL SDV 4mL 40 MG IVP (09:30)
--- NOTE | 2024-04-13 10:18 | P.PN_ITS ---
Vitals/I&O/Wt Last Vital Signs Temp 98.1 F 04/13/24 07:36 Pulse 78 04/13/24 08:00 Resp 16 04/13/24 08:00 BP 150/80 04/13/24 07:36 Pulse Ox 94 04/13/24 08:00 O2 Del Method Nasal Cannula 04/13/24 08:00 O2 Flow Rate 2 04/13/24 08:00 FiO2 50 04/10/24 17:20 04/12/24 04/13/24 04/13/24 22:59 06:59 14:59 Intake Total 370 / 830 240 / 240 Output Total 200 / 1000 400 / 1400 Balance 170 / -170 -400 / -570 240 / 240 Weight last 48 hrs Weight 172 lb 11.2 oz Weight 172 lb 11.2 oz Physical Exam 2 Urinary Catheter Management: Huff: Cath Placed During This Visit: yes Reason for Continuing Indwelling Catheter: Other Urinary Catheter Date of Insertion: 04/10/24 Urinary Catheter Time of Insertion: 20:30 Data 04/13/24 03:30 04/13/24 03:30 Coding Level of Care Code Acute Code for Ch[facility] Fwd
--- NOTE | 2024-04-13 11:05 | P.DS_ITS ---
Discharge Providers Date of Admission: 04/10/24 16:37 Date of Discharge: April 13, 2024 Attending Provider at Admission: Willem Steward MD Attending Provider at Discharge: Willem Steward MD Primary Care Provider: Antonio Delgado MD Diagnoses at Discharge Discharge Diagnosis (1) Acute hypoxic respiratory failure: Status: Acute (2) Coronary artery disease: Status: Acute (3) NSTEMI (non-ST elevated myocardial infarction): Status: Acute (4) Acute exacerbation of CHF (congestive heart failure): Status: Acute (5) Pulmonary edema: Status: Acute Reason for Visit Reason for Visit: Resp Distress Hospital Course Hospital Course Sally Henderson is a 83 year old female with a past medical history of CAD, recent hospitalization for NSTEMI, history of left circumflex disease answered to tertiary center for interventions however medically managed for now, history of CABG, history of insulin-dependent type 2 diabetes mellitus, hypertension, hyperlipidemia who presents [facility] for sudden onset shortness of breath. Patient came in on BiPAP 40%, according to ER provider, in respiratory distress, she is currently alert oriented x 3, no evidence of respiratory distress, on 3 L, no nasal flaring no intercostal retraction no suprasternal retractions, does have crackles on examination. She is able to speak full sentences without feeling short of breath. O2 sats in the high 90s on 3 4 L. She tells me that she has been doing well recently, this morning, she had her normal day, she carried out her activities, she actually had lunch with her friends, after lunch, she had sudden onset shortness of breath, that came on all of a sudden, she could not catch her breath no chest pain, she called EMS, he was 60% on room air, severe respiratory distress placed on CPAP then to BiPAP. She denies any fevers, no chills, no cough, no sick contacts, no recent travel, she has chronic swelling over left lower extremity, but denies any significant weight gain, she uses all her medications as prescribed, denies aspiration, denies choking, Patient was admitted to [facility] for acute hypoxic respiratory failure secondary to fluid overload, received IV diuresis, overall clinically improved, discharged on Lasix therapy There is also concern for pneumonia with CT chest showing bibasilar infiltrates received IV antibiotics, discharged on p.o. antibiotics History of CAD, NSTEMI CONCLUSIONS Normal LV systolic function. Normal LVEF 65%. Normal RV size and systolic function. Dilated left atrium with moderate mitral regurgitation. Normal right heart and pulmonary pressures. cath 12/2023 Conclusions 1. Severe multivessel [place] coronary artery disease. [place] to [place] is patent. Culprit lesion for ACS is heavily calcified subtotally occluded [place] left circumflex artery. After diagnostic angiogram we did not proceed with PCI attempt as this vessel will need high risk PCI with arthrectomy. We will discuss all options with patient and family including medical therapy vs high risk PCI here vs transfer to tertiary care center. Based on patient's preference, will proceed further.. 2. Patient has prior CABG. -Back in 12/29/2023 patient was transferred to [facility] she was then transferred to [facility], at [facility], they recommended medical management, with outpatient follow- up -Currently on medical management her last hospitalization for NSTEMI and ranolazine was added -Currently denies any chest pain # Positive delta troponin 6-hour troponin 164, delta 134 Plan -Cardiac echo CONCLUSIONS LV systolic function is mildly reduced with EF of 45-50%. Above mentioned regional wall motion abnormalities. Grade 1 diastolic dysfunction Left atrial dilation Moderate mitral regurgitation Compared to prior echocardiogram from 02/2024, LV systolic function has decreased. -Aspirin, Plavix, statin, beta-sabrina, ? Therapeutic Lovenox for 48 hours Consult cardiology -Recommended medical management with close follow-up cardiology as outpatient Physical Exam Const: COMMON NORMALS: no acute distress and patient oriented x3 Resp: COMMON NORMALS: normal respiratory effort, No retractions, No use of accessory muscles and clear to auscultation bilaterally AUSCULTATION: clear to auscultation bilaterally Cardio: COMMON NORMALS: regular rate, regular rhythm, S1 normal heart sound present and S2 normal heart sound present RATE: regular rate RHYTHM: regular rhythm HEART SOUNDS: S1 normal heart sound present and S2 normal heart sound present GI: COMMON NORMALS: Normal to inspection, nondistended, normoactive bowel sounds present and non-tender Extremity: COMMON NORMALS: no pedal edema Neuro: COMMON NORMALS: patient oriented x3 Psych: COMMON NORMALS: mental status grossly normal Urinary Catheter Management: Huff: Cath Placed During This Visit: yes, but has since been removed by the nurse Reason for Continuing Indwelling Catheter: Accurate Measurement of Urinary Output in Critically Ill Patients Urinary Catheter Date of Insertion: 04/10/24 Urinary Catheter Time of Insertion: 20:30 Date Urinary Catheter Removed: 04/13/24 Time Urinary Catheter Discontinued: 10:51 Discharge Data Studies Completed and Pending Completed Studies During Hospitalization Category Date Time Status CT angio chest PE protcl [id number] Stat Cat Scan 04/10/24 15:29 Completed XR chest 1V portable [id number] Stat Exams 04/10/24 13:37 [place] [id number] Stat Ultrasound 04/10/24 15:31 Completed CV. echo complete* [id number] Stat Ultrasound 04/10/24 15:29 Completed Pending at discharge Category Date Time Status NT Pro B Type Natriuretic Pept QAM Lab 04/14/24 06:00 Ordered Radiology Impressions Chest X-Ray 04/10/24 13:37 IMPRESSION: 1. No acute findings. 2. Chronic lung changes noted Chest CTA 04/10/24 15:29 IMPRESSION: 1. Bibasilar infiltrates versus atelectasis 2. Stable cardiomegaly Venous Duplex 04/10/24 15:31 IMPRESSION: No evidence of deep vein thrombosis. Laboratory Results WBC 10.50 10^3/uL (3.29-11.43) 04/13/24 03:30 RBC 4.40 10^6/uL (3.85-5.65) 04/13/24 03:30 Hgb 11.80 g/dL (11.27-16.99) 04/13/24 03:30 Hct 38.4 % (36-47) 04/13/24 03:30 MCV 87.3 fl (85-98) 04/13/24 03:30 MCH 26.8 pg (27-33) L 04/13/24 03:30 MCHC 30.7 g/dL (30-55) 04/13/24 03:30 RDW 12.6 % (12.1-15.1) 04/13/24 03:30 Plt Count 277 10^3/cmm (157-399) 04/13/24 03:30 MPV 11.9 fL (7.4-10.4) H 04/13/24 03:30 Neut % (Auto) 65.9 % 04/13/24 03:30 Lymph % (Auto) 19.9 % 04/13/24 03:30 Clare % (Auto) 9.9 % 04/13/24 03:30 Eos % (Auto) 3.8 % 04/13/24 03:30 Baso % (Auto) 0.2 % 04/13/24 03:30 Neut # (Auto) 6.92 10^3/uL (1.8-7.7) 04/13/24 03:30 Lymph # (Auto) 2.1 10^3/uL (0.8-4.8) 04/13/24 03:30 Clare # (Auto) 1.0 10^3/uL (0.2-0.9) H 04/13/24 03:30 Eos # (Auto) 0.4 10^3/uL (0.0-0.8) 04/13/24 03:30 Baso # (Auto) 0.0 10^3/uL (0.0-0.1) 04/13/24 03:30 Nucleated RBC % (auto) 0 % 04/13/24 03:30 Nucleated RBCs # 0.0 /100WBC 04/13/24 03:30 D-Dimer 0.86 ug/mLFEU (0-0.59) H 04/10/24 14:15 Specimen Type Arterial 04/10/24 13:52 Sample Site Radial, left 04/10/24 13:52 ABG pH 7.36 (7.35-7.45) 04/10/24 13:52 ABG pCO2 48.2 mmHg (35-45) H 04/10/24 13:52 ABG pO2 86.8 mmHg (80.0-100.0) 04/10/24 13:52 ABG PO2/FiO2 Ratio 173 04/10/24 13:52 ABG HCO3 27.2 mmol/L (22-26) H 04/10/24 13:52 ABG Base Excess 1.2 mmol/L (-2.0-2.0) 04/10/24 13:52 Tanner Test Pos 04/10/24 13:52 Hematocrit 35.9 % (37-47) L 04/10/24 13:52 Hgb O2 Saturation 95.6 % (95-100) 04/10/24 13:52 Carboxyhemoglobin 0.9 %THgb (0.4-20.1) 04/10/24 13:52 Methemoglobin 0.5 % (0.4-1.5) 04/10/24 13:52 Total Hemoglobin 11.7 g/dL (12-16) L 04/10/24 13:52 O2 Delivery Device Bipap 04/10/24 13:52 FiO2 50.0 % 04/10/24 13:52 Judicial Administrative Assistant ID Cak 04/10/24 13:52 Sodium 142 mmol/L (136-145) 04/13/24 03:30 Potassium 4.0 mmol/L (3.5-5.1) 04/13/24 03:30 Chloride 101 mmol/L (98-107) 04/13/24 03:30 Carbon Dioxide 32 mmol/L (22-29) H 04/13/24 03:30 Anion Gap 13.0 (5-19) 04/13/24 03:30 BUN 24 mg/dL (8-23) H 04/13/24 03:30 Creatinine 1.1 mg/dL (0.5-0.9) H 04/13/24 03:30 GFR Calculation Not Reportable 04/13/24 03:30 Glucose 118 mg/dL (65-115) H 04/13/24 03:30 POC Glucose 189 mg/dL (70-110) H 04/13/24 06:20 Estimat Average Glucose 169 04/10/24 14:18 Hemoglobin A1c 7.5 % (4.0-6.0) H 04/10/24 14:18 Calculated Osmolality 299 mOsm/kg (285-295) H 04/13/24 03:30 Lactic Acid 2.2 mmol/L (0.5-2.2) 04/10/24 14:15 Lactic Acid (Sepsis) 2.1 mmol/L (0.5-2.2) 04/10/24 18:04 Calcium 8.7 mg/dL (8.5-10.5) 04/13/24 03:30 Phosphorus 4.3 mg/dL (2.5-4.5) 04/13/24 03:30 Magnesium 1.9 mg/dL (1.7-2.3) 04/13/24 03:30 Total Bilirubin 0.2 mg/dL (0.15-1.2) 04/13/24 03:30 AST 14 U/L (0-32) 04/13/24 03:30 ALT 8 U/L (0-33) 04/13/24 03:30 Alkaline Phosphatase 117 U/L (35-105) H 04/13/24 03:30 Troponin T Baseline 30 ng/L (0-10) H 04/10/24 14:18 Troponin T 120 Minute 72.37 ng/L (0-10) H 04/10/24 17:03 Delta Troponin T 42.37 ABS# (0-10) H* 04/10/24 17:03 Troponin T Hi Sens 6Hr 164.8 ng/L (0-10) H 04/10/24 20:44 Troponin T Hi Sens 6Hr Delta 134.8 ng/L (0-12) H* 04/10/24 20:44 C-Reactive Protein 4.6 mg/L (0.0-4.9) 04/10/24 14:15 NT-Pro-B Natriuret Pep 2354 pg/mL (0-450) H 04/13/24 03:30 Total Protein 6.2 g/dL (6.6-8.7) L 04/13/24 03:30 Albumin 3.5 g/dL (3.5-5.2) 04/13/24 03:30 Globulin 2.7 g/dL (1.3-4.6) 04/13/24 03:30 Triglycerides 105 mg/dL (0-150) 04/10/24 14:18 Cholesterol 147 mg/dL (0-200) 04/10/24 14:18 LDL Cholesterol, Calc 64 mg/dL (50-129) 04/10/24 14:18 HDL Cholesterol 62 mg/dL (60-100) 04/10/24 14:18 LDL/HDL Ratio 1.03 RATIO (0.00-3.22) 04/10/24 14:18 Cholesterol/HDL Ratio 2.37 mg/dL (0.0-4.40) 04/10/24 14:18 Procalcitonin 0.03 ng/mL (0-0.5) 04/10/24 14:15 TSH 5.68 uIU/mL (0.27-4.20) H 04/10/24 14:18 Urine Color Yellow (Yellow) 04/10/24 21:08 Urine Appearance Clear (CLEAR) 04/10/24 21:08 Urine pH 5.0 (5-7) 04/10/24 21:08 Ur Specific Igo 1.012 (1.005-1.030) 04/10/24 21:08 Urine Protein Negative (Negative) 04/10/24 21:08 Urine Glucose (UA) Negative (Normal) 04/10/24 21:08 Urine Ketones Negative (Negative) 04/10/24 21:08 Urine Blood Negative (Negative) 04/10/24 21:08 Urine Nitrate Negative (Negative) 04/10/24 21:08 Urine Bilirubin Negative (Negative) 04/10/24 21:08 Urine Urobilinogen 0.2 mg/dL (Negative) 04/10/24 21:08 Ur Leukocyte Esterase Negative (Negative) 04/10/24 21:08 Urine RBC 0-2 /hpf (0-2) 04/10/24 21:08 Urine WBC 0-5 /hpf (0-5) 04/10/24 21:08 Ur Squamous Epith Cells 0-5 /hpf (0-5) 04/10/24 21:08 Amorphous Sediment Not Reportable 04/10/24 21:08 Urine Bacteria None seen /hpf (NONE) 04/10/24 21:08 Hyaline Casts 0-4 /lpf H 04/10/24 21:08 Coronavirus (PCR) Negative (Negative) 04/10/24 16:50 Influenza A (PCR) Negative (Negative) 04/10/24 16:50 Influenza Type B (PCR) Negative (Negative) 04/10/24 16:50 RSV (PCR) Negative (Negative) 04/10/24 16:50 Vitals Last Vital Signs Temp 98.1 F 04/13/24 07:36 Pulse 78 04/13/24 08:00 Resp 16 04/13/24 08:00 BP 150/80 04/13/24 07:36 Pulse Ox 94 04/13/24 08:00 O2 Del Method Nasal Cannula 04/13/24 08:00 O2 Flow Rate 2 04/13/24 08:00 FiO2 50 04/10/24 17:20 Discharge Plan Discharge Patient Disposition: Home Condition: Stable Prescriptions: Continued gabapentin 600 mg tablet 600 mg PO BEDTIME ranolazine 500 mg tablet extended release 12 hr 500 mg PO BID Qty: 60 0RF atorvastatin 40 mg tablet 40 mg PO BEDTIME Qty: 90 3RF clopidogrel 75 mg tablet 75 mg PO BEDTIME Qty: 90 3RF multivitamin Tablet 1 tab PO BEDTIME tramadol 50 mg tablet 100 mg PO BEDTIME calcium carbonate 500 mg calcium (1,250 mg) Tablet 500 mg PO DAILY spironolactone 25 mg tablet 25 mg PO DAILY gemfibrozil 600 mg tablet 600 mg PO BID pantoprazole 40 mg tablet,delayed release (DR/EC) 40 mg PO DAILY nitroglycerin 0.4 mg tablet, sublingual 0.4 mg buccal PRN PRN (Reason: Chest Pain) insulin degludec [Tresiba FlexTouch U-200] 200 unit/mL (3 mL) insulin pen 27 unit SUBCUT DAILY isosorbide mononitrate 30 mg tablet extended release 24 hr 30 mg PO DAILY furosemide 40 mg tablet 40 mg PO DAILY@0800 30 Days Qty: 30 0RF potassium chloride [Klor-Con M20] 20 mEq tablet,ER particles/crystals 20 meq PO DAILY 30 Days Qty: 30 3RF aspirin 81 mg Tablet,Delayed Release (Dr/Ec) 81 mg PO DAILY 30 Days Qty: 30 0RF Discharge Orders: Discharge Order (Routine); Ordered 04/13/24 Ordered By: Willem Steward Referrals: Antonio Delgado MD [Primary Care Provider] - Discharge Diet: Cardiac Discharge Activity: Resume usual activity Patient Instructions: Opioid Safety Activity Restrictions/Additional Instructions: -please recheck creatinine on monday Discharge Attestations Time Spent in Discharge Care*: greater than 30 min Status at Discharge: Cognitive status at discharge: cognitively intact , Behavioral status at discharge: cooperative , Quality Metrics Clinical Quality Measures [ No reported AMI, CVA or VTE this stay] Coding Level of Care Code 02586 Total time (in minutes) for Discharge: 45 Diagnoses Acute hypoxic respiratory failure J96.01 Coronary artery disease I25.10 NSTEMI (non-ST elevated myocardial infarction) I21.4 Acute exacerbation of CHF (congestive heart failure) I50.9 Pulmonary edema J81.1
[2024-04-13 11:32] VITALS: BP 135/77; PULSE 80; RESP 20; TEMP 36.9; O2SAT 95
--- NOTE | 2024-04-13 14:30 | PC.NURSE ---
Patient discharged to home. Instruction provided regarding follow up needs, new medications, chf with stoplight given. Patient verbalized complete understanding. New Rx transmitted to [facility]. Patient taken by wheelchair to private vehicle with son by side. No distress observed.
== END 2024-04-13 14:32 | disposition home or self-care (01) | DRG 291 ==
LOC: ER 15:55 → CSU 16:38
PROVIDERS: Admitting Provider Family Medicine; Emergency Provider Emergency Medicine; PCP Family Medicine; Visit Provider Family Medicine
DX: I11.0 Hypertensive heart disease with heart failure (principal); I50.31 Acute diastolic (congestive) heart failure; J18.9 Pneumonia, unspecified organism; J96.01 Acute respiratory failure with hypoxia; I25.10 Atherosclerotic heart disease of native coronary artery without angina pectoris; I25.2 Old myocardial infarction; E11.9 Type 2 diabetes mellitus without complications; E78.5 Hyperlipidemia, unspecified; Z79.4 Long term (current) use of insulin; Z79.891 Long term (current) use of opiate analgesic; Z95.1 Presence of aortocoronary bypass graft; Z79.82 Long term (current) use of aspirin; Z90.710 Acquired absence of both cervix and uterus; Z87.891 Personal history of nicotine dependence
CPT/HCPCS: 0241U; 36415; 36416; 36600; 51702; 71045; 71275; 80053; 80061; 81001; 82805; 82962; 83036; 83605; 83735; 83880; 84100; 84145; 84443; 84484; 85025; 85378; 86140; 93005; 93306; 93970; 94660; 94664; 96372; 96374; 96376; 99291; J0456; J0696; J1650; J1815; J1940; J2470; J7050

== ENCOUNTER 2024-05-26 18:49 | Inpatient (IN) | payer MEDICARE, SELFPAY ==
[2024-05-26] VITALS (23 sets, daily range): BP systolic 82–146; BP diastolic 37–96; PULSE 61–123; RESP 16–25; TEMP 36.5; O2SAT 90–99; BMI 37.0; BMI 33.7
[2024-05-26] MEDS: propofol 10 mg/mL SDV 20 mL 60 MG IVP (18:52)
--- NOTE | 2024-05-26 18:52 | XRR_ITS ---
PROCEDURE INFORMATION: Exam: XR Chest Exam date and time: 05/26/2024 6:55 PM Age: 84 years old Clinical indication: Device placement; Ett placement (vent status); Prior surgery; Surgery date: 6+ months; Surgery type: Cabg; Patient HX: Ett/og placement TECHNIQUE: Imaging protocol: Radiologic exam of the chest. Views: 1 view. COMPARISON: CT angio chest PE protcl [id number] 04/10/2024 3:44 PM FINDINGS: Tubes, catheters and devices: ET tube present with tip approximately 4 cm above the lupe. An enteric tube present with tip below the limits of this exam. The side port of the enteric tube is within the body of the stomach. Lungs: There is mild pulmonary vascular congestion. The lungs are free of consolidation. Pleural spaces: Unremarkable. No pleural effusion. No pneumothorax. Heart/Mediastinum: Stable cardiomegaly. Bones/joints: Sternotomy wires present. Old left-sided rib fractures present. XR/XR chest 1V portable [id number] IMPRESSION: 1. Support devices in good position. 2. Cardiomegaly associated with pulmonary vascular congestion.
--- NOTE | 2024-05-26 18:53 | ECG_ITS ---
[facility] Test Date: 2024-05-26 Pat Name: Sally Henderson Department: Room: Gender: Female [employer]: : 1940 Requested By: Bebeto Yeager Order Number: [id number] Leonora MD: Angela Lopez M.D. Measurements Intervals [place] Rate: 123 P: 93 TX: 166 QRS: -31 QRSD: 133 T: 121 QT: 312 QTc: 447 Interpretive Statements SINUS TACHYCARDIA WITH FREQUENT VENTRICULAR PREMATURE COMPLEXES LEFT AXIS DEVIATION [QRS AXIS < -30] RIGHT BUNDLE BRANCH BLOCK [120+ ms QRS DURATION, UPRIGHT V1, 40+ ms S IN I/aVL/V4/V5/V6] ST DEVIATION AND MODERATE T-WAVE ABNORMALITY, CONSIDER LATERAL ISCHEMIA [-0.1+ mV T-WAVE IN I/aVL/V5/V6] Compared to ECG 04/10/2024 16:12:05 Ventricular premature complex(es) now present.Sinus rhythm no longer present Sinus arrhythmia no longer present. Left ventricular hypertrophy no longer present T-wave abnormality still present. Possible ischemia still present Electronically Signed On 05-28-2024 23:51:30 MANAGER [employer] by Angela Lopez M.D. [email or web address]
[2024-05-26 18:58] LABS: Glucose Point of Care 356 mg/dL (70-110)
[2024-05-26] MEDS: propofol 1,000 MG/100 ML INJ 5.17 MG IV (19:08)
[2024-05-26] MEDS: fentaNYL 1,000 MCG/100 ML BAG 2.5 MCG IV (19:09)
--- NOTE | 2024-05-26 19:10 | ED_ITS ---
HPI - SOB/Dyspnea 2 General: Chief Complaint: Cardiac Arrest/CPR Stated Complaint: resp distress Time Seen by Provider: 05/26/24 18:52 History of Present Illness: HPI Narrative: 84-year-old female arriving to the emerg ency department intubated. She had called EMS, with shortness of breath. She was found by EMS crew to be in respiratory distress. Room air saturations were in the 70s. She was awake and talking however. She was able to walk out of her back room and help them place her on the gurney, but shortly thereafter, became unresponsive. Pulses were lost. She was in PEA followed by a short duration of asystole. Evidently 1 mg of atropine and 1 mg of epinephrine were given, prior to even starting chest compressions, and pulse was regained quickly. She was intubated in the field while unresponsive as well. Initial blood pressure was quite high postresuscitation according to EMS. Related Data Home Medications Medication Instructions Recorded Confirmed gabapentin 600 mg tablet 600 mg PO BEDTIME 05/28/19 04/10/24 multivitamin 1 tab PO BEDTIME 09/19/20 04/10/24 calcium carbonate 500 mg PO DAILY 08/29/23 04/10/24 tramadol 50 mg tablet 100 mg PO BEDTIME 08/29/23 04/10/24 gemfibrozil 600 mg tablet 600 mg PO BID 04/10/24 04/10/24 insulin degludec 200 unit/mL (3 27 unit SUBCUT DAILY 04/10/24 04/10/24 mL) subcutaneous pen (Tresiba FlexTouch U-200 insulin) isosorbide mononitrate 30 mg 30 mg PO DAILY 04/10/24 04/10/24 tablet,extended release 24 hr nitroglycerin 0.4 mg sublingual 0.4 mg buccal PRN PRN Chest Pain 04/10/24 04/10/24 tablet pantoprazole 40 mg tablet,delayed 40 mg PO DAILY 04/10/24 04/10/24 release spironolactone 25 mg tablet 25 mg PO DAILY 04/10/24 04/10/24 Previous Rx's Medication Instructions Recorded aspirin 81 mg tablet,delayed 81 mg PO DAILY 30 days #30 tabs 12/25/23 release atorvastatin 40 mg tablet 40 mg PO BEDTIME #90 tabs 03/27/24 clopidogrel 75 mg tablet 75 mg PO BEDTIME #90 tabs 03/27/24 ranolazine 500 mg tablet,extended 500 mg PO BID #60 tabs 03/27/24 release,12 hr furosemide 40 mg tablet 40 mg PO DAILY@0800 30 days #30 04/13/24 tabs potassium chloride 20 mEq 20 meq PO DAILY 30 days #30 tabs 04/13/24 tablet,extended release(part/cryst) (Klor-Con M) Allergies Allergy/AdvReac Type Severity Reaction Status Date / Time No Known Allergies Allergy Verified 03/27/24 13:49 PFSH ED 2 PFSH: Medical History NSTEMI (non-ST elevated myocardial infarction) Hyperglycemia Hyperkalemia Elevated brain natriuretic peptide (BNP) level Hyperglycemia Hypoxic respiratory failure Dyslipidemia Contrast-induced nephropathy Type 2 diabetes mellitus without complications CAD (coronary artery disease) Acute [place] Essential (primary) hypertension Surgical History Hx of hysterectomy Hx of CABG Family History Unknown No problems noted. Social History Smoking and tobacco/nicotine status: former use of tobacco/nicotine Alcohol intake: never Substance/Drug Use: never Physical Exam 2 Const: GENERAL APPEARANCE: ill appearing and patient mechanically ventilated NUTRITIONAL APPEARANCE: obese ORIENTATION/CONSCIOUSNESS: Yes Other orientation findings (Eyes open, moving extremities.) HENMT: COMMON NORMALS: normocephalic and Normal external nose present HEAD & SCALP: normocephalic NOSE: Normal external nose present and Normal nares present Eye: COMMON NORMALS: Equal, round and reactive pupils present and EOMs intact bilaterally PUPIL: Yes Equal, round and reactive pupils present Neck/C-Spine: GENERAL: Yes trachea midline Chest: CHEST: Yes Symmetrical chest wall rise and No crepitus Resp: EFFORT & INSPECTION: Yes symmetric chest movement AUSCULTATION: r honchi (Bilaterally) Cardio: COMMON NORMALS: regular rhythm RATE: tachycardic RHYTHM: regular rhythm GI: COMMON NORMALS: Soft to palpation INSPECTION: Yes abdominal distension (Mild) PALPATION: Yes Soft to palpation Extremity: COMMON NORMALS: no pedal edema Neuro: [place] COMA SCALE: document GCS findings (Prior to sedation) [place] coma scale eye opening: Spontaneous [place] coma scale verbal response: None [place] coma scale motor response: Normal flexion [place] coma scale total score: 9 Procedures Central Line Placement Right IJ: Time Out Performed: No Patient Placed on Monitor/Pulse Ox: Yes MD Prep: mask, gown and gloves Central Line Prep: Chlorhexidine scrub Local Anesthetic: lidocaine 1% Amount of anesthesia used (mL): 3 Ultrasound Used for Placement: Yes Central Line Lumen Inserted: triple Post Procedure: sutured in place, good blood return, all ports aspirated, flushed, capped and sterile dressing applied Post Procedure X-Ray: tip of catheter in good position and no pneumothorax seen Patient Tolerated Procedure: well and no complications Complications: none Course 2 Vital Signs: Vital signs: Vital Signs Temperature 97.7 F 05/26/24 18:50 Pulse Rate 64 05/26/24 22:13 Respiratory Rate 18 05/26/24 22:13 Blood Pressure 102/59 05/26/24 22:13 Pulse Oximetry 94 05/26/24 22:13 Oxygen Delivery Me thod Mechanical Ventil ation 05/26/24 19:15 Fraction of Inspir ed Oxygen 40 05/26/24 19:24 MDM - SOB/Dyspnea Medical Decision Making The patient arrives intubated, but awake. No sedation medication to been given. She seemed to be moving all extremities. She had some vomit around her ET tube. This was suctioned. Propofol push, 60 mg was given for sedation. Initial blood pressure was 146/96 with a heart rate in the 120s, sinus tach, saturations were 99% by bag valve respiration through the ET tube. She was hooked up to the ventilator. Chest x-ray showed that the tube was slightly shallow, and was advanced at the bedside. Which showed pulmonary edema otherwise. NG tube and Huff replaced. She is getting propofol and fentanyl for sedation. Due to limited IV access, central line was placed without complication. Versed was added for sedation, as the patient was still under sedated. Vitals have been good. She received a sepsis bolus. troponin did increase at 2 hours with a delta of 20. CTA chest and CT of the head are pending. Lactic acid is 2.5. Once imaging completed, she will go to ICU. Hospitalist is aware and has seen the patient in the ER. Lab Data 05/26/24 18:59 05/26/24 18:59 Labs/Radiology: Radiology Impressions Chest X-Ray 05/26/24 20:17 IMPRESSION: New right-sided venous catheter without postprocedural pneumothorax. Otherwise, no change since reference study. Laboratory Results WBC 13.63 10^3/uL (3.29-11.43) H 05/26/24 18:59 RBC 4.60 10^6/uL (3.85-5.65) 05/26/24 18:59 Hgb 12.10 g/dL (11.27-16.99) 05/26/24 18:59 Hct 41.1 % (36-47) 05/26/24 18:59 MCV 89.3 fl (85-98) 05/26/24 18:59 MCH 26.3 pg (27-33) L 05/26/24 18:59 MCHC 29.4 g/dL (30-55) L 05/26/24 18:59 RDW 13.0 % (12.1-15.1) 05/26/24 18:59 Plt Count 324 10^3/cmm (157-399) 05/26/24 18:59 MPV 11.5 fL (7.4-10.4) H 05/26/24 18:59 Neut % (Auto) 47.6 % 05/26/24 18:59 Lymph % (Auto) 42.7 % 05/26/24 18:59 [place] % (Auto) 7.0 % 05/26/24 18:59 Eos % (Auto) 1.8 % 05/26/24 18:59 Baso % (Auto) 0.2 % 05/26/24 18:59 Neut # (Auto) 6.48 10^3/uL (1.8-7.7) 05/26/24 18:59 Lymph # (Auto) 5.8 10^3/uL (0.8-4.8) H 05/26/24 18:59 [place] # (Auto) 1.0 10^3/uL (0.2-0.9) H 05/26/24 18:59 Eos # (Auto) 0.2 10^3/uL (0.0-0.8) 05/26/24 18:59 Baso # (Auto) 0.0 10^3/uL (0.0-0.1) 05/26/24 18:59 Nucleated RBC % (auto) 0 % 05/26/24 18:59 Nucleated RBCs # 0.0 /100WBC 05/26/24 18:59 D-Dimer 1.08 ug/mLFEU (0-0.59) H 05/26/24 18:59 Specimen Type Arterial 05/26/24 19:06 Sample Site Brachial, right 05/26/24 19:06 ABG pH 7.17 (7.35-7.45) L* 05/26/24 19:06 ABG pCO2 58.7 mmHg (35-45) H 05/26/24 19:06 ABG pO2 224.0 mmHg (80.0-100.0) H 05/26/24 19:06 ABG PO2/FiO2 Ratio 224 05/26/24 19:06 ABG HCO3 21.4 mmol/L (22-26) L 05/26/24 19:06 ABG Base Excess -7.7 mmol/L (-2.0-2.0) L 05/26/24 19:06 Tanner Test N/a 05/26/24 19:06 Hematocrit 38.9 % (37-47) 05/26/24 19:06 Hgb O2 Saturation 97.7 % (95-100) 05/26/24 19:06 Carboxyhemoglobin 0.5 %THgb (0.4-20.1) 05/26/24 19:06 Methemoglobin 1.3 % (0.4-1.5) 05/26/24 19:06 Total Hemoglobin 12.7 g/dL (12-16) 05/26/24 19:06 O2 Delivery Device Vent 05/26/24 19:06 FiO2 100.0 % 05/26/24 19:06 Tidal Volume 0.35 05/26/24 19:06 PEEP 6.0 cmH20 05/26/24 19:06 Sealer Dry Cell ID Ed 05/26/24 19:06 Sodium 136 mmol/L (136-145) 05/26/24 18:59 Potassium 4.4 mmol/L (3.5-5.1) 05/26/24 18:59 Chloride 101 mmol/L (98-107) 05/26/24 18:59 Carbon Dioxide 17 mmol/L (22-29) L 05/26/24 18:59 Anion Gap 22.4 (5-19) H 05/26/24 18:59 BUN 30 mg/dL (8-23) H 05/26/24 18:59 Creatinine 1.2 mg/dL (0.5-0.9) H 05/26/24 18:59 GFR Calculation Not Reportable 05/26/24 18:59 Glucose 387 mg/dL (65-115) H 05/26/24 18:59 POC Glucose 356 mg/dL (70-110) H 05/26/24 18:55 Estimat Average Glucose 166 05/26/24 18:59 Hemoglobin A1c 7.4 % (4.0-6.0) H 05/26/24 18:59 Calculated Osmolality 304 mOsm/kg (285-295) H 05/26/24 18:59 Lactic Acid 2.5 mmol/L (0.5-2.2) H 05/26/24 20:32 Calcium 8.9 mg/dL (8.5-10.5) 05/26/24 18:59 Magnesium 2.6 mg/dL (1.7-2.3) H 05/26/24 18:59 Total Bilirubin 0.2 mg/dL (0.15-1.2) 05/26/24 18:59 AST 26 U/L (0-32) 05/26/24 18:59 ALT 12 U/L (0-33) 05/26/24 18:59 Alkaline Phosphatase 148 U/L (35-105) H 05/26/24 18:59 Troponin T Baseline 30 ng/L (0-10) H 05/26/24 18:59 Troponin T 120 Minute 50.24 ng/L (0-10) H 05/26/24 20:32 Delta Troponin T 20.24 ABS# (0-10) H* 05/26/24 20:32 NT-Pro-B Natriuret Pep 2862 pg/mL (0-450) H 05/26/24 18:59 Total Protein 6.5 g/dL (6.6-8.7) L 05/26/24 18:59 Albumin 3.6 g/dL (3.5-5.2) 05/26/24 18:59 Globulin 2.9 g/dL (1.3-4.6) 05/26/24 18:59 Procalcitonin 0.02 ng/mL (0-0.5) 05/26/24 18:59 TSH 6.00 uIU/mL (0.27-4.20) H 05/26/24 18:59 Free T4 0.84 ng/dL (0.82-1.77) 05/26/24 20:32 Adenovirus (PCR) Not detected (NOT DETECT) 05/26/24 19:13 C. pneumoniae DNA (PCR) Not detected (NOT DETECT) 05/26/24 19:13 Coronavirus 229E (PCR) Not detected (NOT DETECT) 05/26/24 19:13 Human Metapneumovir PCR Not detected (NOT DETECT) 05/26/24 19:13 Influenza A (H1) PCR Not detected (NOT DETECT) 05/26/24 19:13 Influ A (H1/09) PCR Not detected (NOT DETECT) 05/26/24 19:13 Influenza A (H3) PCR Not detected (NOT DETECT) 05/26/24 19:13 Influenza Type A (PCR) Not detected (NOT DETECT) 05/26/24 19:13 Influenza Type B (PCR) Not detected (NOT DETECT) 05/26/24 19:13 M. pneumoniae (PCR) Not detected (NOT DETECT) 05/26/24 19:13 Parainfluenza 1 (PCR) Not detected (NOT DETECT) 05/26/24 19:13 Parainfluenza 2 (PCR) Not detected (NOT DETECT) 05/26/24 19:13 Parainfluenza 3 (PCR) Not detected (NOT DETECT) 05/26/24 19:13 Parainfluenza 4 (PCR) Not detected (NOT DETECT) 05/26/24 19:13 RSV Type A (PCR) Not detected (NOT DETECT) 05/26/24 19:13 RSV Type B (PCR) Not detected (NOT DETECT) 05/26/24 19:13 Entero/Rhino (PCR) Not detected (NOT DETECT) 05/26/24 19:13 SARS-CoV-2 (PCR) Not detected (NOT DETECT) 05/26/24 19:13 XR interpretation done by ED provider, pending radiology final review Critical Care Time 2 Critical Care Time: Critical Care Time: Yes Total Critical Care Time: 45 Attestation: This case had a high probability of a clinically significant, sudden, or life threatening deterioration of this patient's condition which required my full and direct attention, intervention and personal management. Time is independent of any procedures performed. 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
[2024-05-26 19:16] LABS: ABG PCO2 58.7 mmHg (35-45); Arterial Blood Gas Hematocrit 38.9 % (37-47); Base Excess ABG -7.7 mmol/L (-2.0-2.0); Blood Gas Sample Type Arterial; Carboxyhemoglobin 0.5 %THgb (0.4-20.1); HCO3 ABG 21.4 mmol/L (22-26); HGB O2 Sat 97.7 % (95-100); Methemoglobin 1.3 % (0.4-1.5); Total Hemoglobin 12.7 g/dL (12-16)
[2024-05-26 19:17] LABS: ABG PH Result 7.17 (7.35-7.45); Blood Gas Operator Identificat ED; Blood Gas Sample Site Brachial, right; Blood Gas Tidal Volume 0.35; Oxygen Device VENT; PO2 FiO2 Ratio Arterial Blood 224
[2024-05-26 19:17] LABS: Basophils % 0.2 %; Eosinophils # 0.2 10^3/uL (0.0-0.8); Eosinophils % 1.8 %; Hematocrit 41.1 % (36-47); Lymphocytes # 5.8 10^3/uL (0.8-4.8); Lymphocytes % 42.7 %; Mean Corpuscular HGB Conc 29.4 g/dL (30-55); Mean Corpuscular Hemoglobin 26.3 pg (27-33); Mean Corpuscular Volume 89.3 fl (85-98); Mean Platelet Volume 11.5 fL (7.4-10.4); Neutrophils # 6.48 10^3/uL (1.8-7.7); Neutrophils % 47.6 %; Nucleated Red Blood Cells % 0 %; Platelet Count 324 10^3/cmm (157-399); White Blood Count 13.63 10^3/uL (3.29-11.43)
--- NOTE | 2024-05-26 19:30 | CTR_ITS ---
PROCEDURE INFORMATION: Exam: CT Head Without Contrast Exam date and time: 05/26/2024 10:59 PM Age: 84 years old Clinical indication: Altered mental status/memory loss; Patient HX: EMS arrival for resp distress. Intubated on route to er. ; Additional info: AMS TECHNIQUE: Imaging protocol: Computed tomography of the head without contrast. Radiation optimization: All CT scans at this facility use at least one of these dose optimization techniques: automated exposure control; mA and/or kV adjustment per patient size (includes targeted exams where dose is matched to clinical indication); or iterative reconstruction. COMPARISON: CT head wo con* [id number] 09/19/2020 5:18 PM RADIATION DOSE METRICS: Total DLP (mGy-cm): 977.34 FINDINGS: Brain: No hemorrhage. Periventricular and subcortical white matter hypodensities likely represent chronic small vessel ischemic changes. No mass effect. Intracranial vascular calcifications. Cerebral ventricles: No ventriculomegaly. Paranasal sinuses: Chronic opacification of the right sphenoid sinus. Patchy opacification of the ethmoid air cells. No air-fluid levels in the paranasal sinuses. Mastoid air cells: Visualized mastoid air cells are well aerated. Orbital cavities: Bilateral lens replacements. Bones: Unremarkable. No acute fracture. Soft tissues: Unremarkable. CT/CT head wo con* [id number] IMPRESSION: No acute intracranial findings. Chronic/age-related changes as above.
--- NOTE | 2024-05-26 19:31 | CTR_ITS ---
PROCEDURE INFORMATION: Exam: CTA Chest With Contrast Exam date and time: 05/26/2024 11:03 PM Age: 84 years old Clinical indication: Prior surgery; Surgery date: 6+ months; Surgery type: Cabg; Patient HX: EMS arrival for resp failure. Intubated on route to er. ; Additional info: SOB, resp failure TECHNIQUE: Imaging protocol: Computed tomographic angiography of the chest with contrast. Exam focused on the arteries. 3D rendering (Not supervised by radiologist): MIP and/or 3D reconstructed images were created by the technologist. Radiation optimization: All CT scans at this facility use at least one of these dose optimization techniques: automated exposure control; mA and/or kV adjustment per patient size (includes targeted exams where dose is matched to clinical indication); or iterative reconstruction. Contrast material: OMNI 350; Contrast volume: 49 ml; Contrast route: INTRAVENOUS (IV); COMPARISON: CT angio chest PE protcl [id number] 04/10/2024 3:44 PM RADIATION DOSE METRICS: Total DLP (mGy-cm): 523.83 FINDINGS: Tubes, catheters and devices: An ET tube present with tip approximately 2 cm above the lupe. There is a right-sided venous catheter with tip in the right atrium. There is an enteric tube with tip in the region of the body of the stomach. The ETT is incompletely imaged on this study. Pulmonary arteries: Normal. No pulmonary emboli. Aorta: Calcific plaque involves the thoracic aorta and coronary arteries. The thoracic aorta is free of aneurysm and dissection. Trachea: Mucous secretions present within the lower trachea. Lungs: Consolidative changes present involving the bilateral upper and lower lobes dependently. Diffuse interlobular septal thickening present. Pleural spaces: Unremarkable. No pneumothorax. No pleural effusion. Heart: The heart is enlarged. No pericardial effusion. Coronary arteries: Postsurgical changes from prior CABG. Lymph nodes: Unremarkable. No enlarged lymph nodes. Gallbladder and biliary ducts: Gallstones noted. Bones/joints: Multilevel degenerative changes involve the spine. Soft tissues: Unremarkable. CT/CT angio chest PE protcl [id number] IMPRESSION: 1. Negative exam for pulmonary embolus and aortic dissection. 2. Dependent areas of consolidative changes involving the bilateral upper and lower lobes which may reflect alveolar edema or pneumonia. There is mild bilateral diffuse interstitial edema. 3. Atherosclerosis including coronary artery calcification. 4. Cardiomegaly.
[2024-05-26 19:40] LABS: Troponin(5th) Baseline 30 ng/L (0-10)
[2024-05-26 19:48] LABS: Alanine Aminotransferase 12 U/L (0-33); Albumin Level 3.6 g/dL (3.5-5.2); Alkaline Phosphatase 148 U/L (35-105); Blood Urea Nitrogen 30 mg/dL (8-23); Calcium 8.9 mg/dL (8.5-10.5); Carbon Dioxide 17 mmol/L (22-29); Chloride 101 mmol/L (98-107); Creatinine Clr Calc Pharmacy 35.2479; Globulin 2.9 g/dL (1.3-4.6); Glucose 387 mg/dL (65-115); Magnesium 2.6 mg/dL (1.7-2.3); NT Pro B Type Natriuretic Pept 2862 pg/mL (0-450); Osmolality Calculated 304 mOsm/kg (285-295); Sodium 136 mmol/L (136-145); Total Bilirubin 0.2 mg/dL (0.15-1.2); Total Protein 6.5 g/dL (6.6-8.7)
[2024-05-26] MEDS: midazolam hcl 100 MG/100 ML BAG IV (20:00)
[2024-05-26 20:09] LABS: Anion Gap 22.4 (5-19); Aspartate Amino Transferase 26 U/L (0-32); Potassium 4.4 mmol/L (3.5-5.1)
--- NOTE | 2024-05-26 20:17 | XRR_ITS ---
PROCEDURE INFORMATION: Exam: XR Chest Exam date and time: 05/26/2024 8:17 PM Age: 84 years old Clinical indication: Other vascular access device placement or adjustment; Central line, non-tunnelled; Prior surgery; Surgery date: 6+ months; Surgery type: Cabg; Patient HX: Check S/P RT central line placement. TECHNIQUE: Imaging protocol: Radiologic exam of the chest. Views: 1 view. COMPARISON: CR (CHEST, ) 05/26/2024 6:55 PM FINDINGS: Tubes, catheters and devices: New right-sided venous catheter with tip in the region of the lower right atrium. ETT and enteric tube unchanged. Lungs: Mild pulmonary vascular congestion. Pleural spaces: No postprocedure pneumothorax. Heart/Mediastinum: Stable cardiomegaly. Bones/joints: Unremarkable. XR/XR chest 1V portable [id number] IMPRESSION: New right-sided venous catheter without postprocedural pneumothorax. Otherwise, no change since reference study.
[2024-05-26] MEDS: cefTRIAXone 1,000 mg SDV 1000 MG IVP (20:40)
--- NOTE | 2024-05-26 20:40 | P.HP_ITS ---
Providers/Chief Complaint 2 Primary Care Provider: Antonio Delgado MD Chief Complaint: resp distress History of Present Illness Sally Henderson is a 84 year old female with established history of coronary disease, CABG, chronically occluded left circumflex, RCA, [place] to L[place] was patent as per previous angiogram, decision was made to medically manage the patient, attempt was made to intervene [place] vessels but secondary to calcification it was unsuccessful, at baseline uses 3 L of oxygen, today got intubated for her respiratory distress by the EMS when she was put on the gurney. At the time of evaluation patient is intubated and on sedatives Versed, propofol and fentanyl. I have asked the nurse to discontinue Versed and increase the dose of fentanyl. Apparently patient was trying to crawl out of bed, she was waking up. PEEP 6, FiO2 40%. Chest x-ray consistent with mild to moderate vascular congestion, troponin 30, EKG not showing infarctive changes. CTA chest is pending. I called her son to get more details, son is stating that this evening she yelled her son's name at that point when son checked on her she was gasping for air, he called 911 immediately, when EMS arrived he was put on oxygen during transportation patient became apneic, lost pulse he was given 1 dose of atropine and epinephrine ROSC was obtained before chest compression could be initiated she was intubated by the EMS, central line was placed by the ER, EKG is not showing STEMI, ABG consistent with hypercapnia, patient was trying to wake up crawl out of bed that is why she was put on multiple sedatives. Versed to be discontinued will keep patient on fentanyl high-dose along low-dose propofol for now. Troponin consistent with non-STEMI EKG not showing any infarctive changes At the time of evaluation CT head, CTA chest is pending Review of Systems 2 General: Reports: ROS unobtainable due to medical condition Medications/Allergies Home Medications Medication Instructions Recorded Confirmed Last Taken Type gabapentin 600 mg tablet 600 mg PO BEDTIME 05/28/19 04/10/24 03/12/24 08:00 History multivitamin 1 tab PO BEDTIME 09/19/20 04/10/24 03/12/24 History calcium carbonate 500 mg PO DAILY 08/29/23 04/10/24 03/12/24 History tramadol 50 mg tablet 100 mg PO BEDTIME 08/29/23 04/10/24 03/12/24 History aspirin 81 mg tablet,delayed 81 mg PO DAILY 30 days #30 tabs 12/25/23 04/10/24 03/12/24 Rx release atorvastatin 40 mg tablet 40 mg PO BEDTIME #90 tabs 03/27/24 04/10/24 Unknown Rx clopidogrel 75 mg tablet 75 mg PO BEDTIME #90 tabs 03/27/24 04/10/24 Unknown Rx ranolazine 500 mg tablet,extended 500 mg PO BID #60 tabs 03/27/24 04/10/24 Unknown Rx release,12 hr gemfibrozil 600 mg tablet 600 mg PO BID 04/10/24 04/10/24 Unknown History insulin degludec 200 unit/mL (3 27 unit SUBCUT DAILY 04/10/24 04/10/24 Unknown History mL) subcutaneous pen (Tresiba FlexTouch U-200 insulin) isosorbide mononitrate 30 mg 30 mg PO DAILY 04/10/24 04/10/24 Unknown History tablet,extended release 24 hr nitroglycerin 0.4 mg sublingual 0.4 mg buccal PRN PRN Chest Pain 04/10/24 04/10/24 Unknown History tablet pantoprazole 40 mg tablet,delayed 40 mg PO DAILY 04/10/24 04/10/24 Unknown History release spironolactone 25 mg tablet 25 mg PO DAILY 04/10/24 04/10/24 Unknown History furosemide 40 mg tablet 40 mg PO DAILY@0800 30 days #30 04/13/24 Unknown Rx tabs potassium chloride 20 mEq 20 meq PO DAILY 30 days #30 tabs 04/13/24 Unknown Rx tablet,extended release(part/cryst) (Klor-Con M) Allergies Allergy/AdvReac Type Severity Reaction Status Date / Time No Known Allergies Allergy Verified 03/27/24 13:49 PFSH Acute 2 PFSH: Medical History NSTEMI (non-ST elevated myocardial infarction) Hyperglycemia Hyperkalemia Elevated brain natriuretic peptide (BNP) level Hyperglycemia Hypoxic respiratory failure Dyslipidemia Contrast-induced nephropathy Type 2 diabetes mellitus without complications CAD (coronary artery disease) Acute [place] Essential (primary) hypertension Surgical History Hx of hysterectomy Hx of CABG Family History Unknown No problems noted. Social History Smoking and tobacco/nicotine status: former use of tobacco/nicotine Alcohol intake: never Substance/Drug Use: never Vitals/I&O/Wt Last Vital Signs Temp 97.7 F 05/26/24 18:50 Pulse 123 H 05/26/24 18:50 Resp 25 H 05/26/24 19:24 BP 146/96 05/26/24 18:50 Pulse Ox 99 05/26/24 18:50 O2 Del Method Mechanical Ventilation 05/26/24 18:50 FiO2 40 05/26/24 19:24 05/26/24 05/26/24 05/26/24 06:59 14:59 22:59 Intake Total 8.663 / 8.663 Balance 8.663 / 8.663 Weight last 48 hrs Weight 86.183 kg Physical Exam 2 Narrative: Signs of fluid overload present Currently intubated and sedated FiO2 40%, PEEP 6 he Endotracheal tube lip by 23 cm On fentanyl Versed and propofol Not on any pressors Abdomen mildly distended Lower extremity no significant edema Right-sided central line in place right IJ Endotracheal tube size 8 Coffee colored content which does not look like blood is in the suction container, it looks like chocolate pudding, does not have consistency of blood No skin mottling Urine output is decreased at this point Cap refill less than 3 seconds Urinary Catheter Management: Huff: Cath Placed During This Visit: yes Urinary Catheter Date of Insertion: 05/26/24 Urinary Catheter Time of Insertion: 19:13 Data 05/26/24 18:59 05/26/24 18:59 A&P Assessment and plan (1) Coronary artery disease: (2) Non-STEMI (non-ST elevated myocardial infarction): (3) Respiratory arrest: (4) Acute respiratory failure with hypoxia and hypercapnia: (5) Hypercapnic acidosis: (6) Acute kidney injury superimposed on chronic kidney disease: (7) Closed compression fracture of L1 vertebra: Plan Respiratory arrest requiring intubation in the field Likely related to underlying COPD exacerbation due to vascular congestion Sepsis criteria met with leukocytosis, high lactic acid, endorgan damage Judicious use of septic bolus secondary to underlying CHF X-ray consistent with vascular congestion CTA chest is pending EKG consistent with ST depression Troponin delta 20 Non-STEMI Start patient on ACS protocol Request another echo Patient has underlying COPD requires 3 to 4 L of oxygen Hypercapnia noted on ABG PEEP 6 FiO2 40% As per the report: No chest compressions were done by the EMS, I am not sure if she really had real-time cardiac arrest in the field versus significant apneic spell , she was given oxygen, atropine and epinephrine to achieve ROSC after respiratory arrest, I would expect troponins to be extremely high in 100s instead of 30s or 50s, I do believe weaning trial could be started tomorrow once ABG improves Patient is not requiring any pressors at the time of my evaluation however needs to be monitored overnight Patient was trying to wake up hence required higher dose of propofol Versed and fentanyl I have requested nurse to discontinue Versed and just keep her on high dose of fentanyl and low-dose of propofol for now Considering her significant cardiac history not amenable to intervention I highly doubt she will go for another angiogram Sepsis Aspiration pneumonia? Afebrile Leukocytosis endorgan damage, high lactic acid tachycardia We will keep patient on Zosyn for now Respiratory panel negative Acute preserve ejection fraction heart failure exacerbation Diastolic dysfunction Repeat echo Currently on ACS protocol Non-STEMI ACS protocol Established coronary disease Previous angiogram showed chronically occluded grafts left circumflex and RCA, patent [place] to LAD medical management was guided by cardiology Will consult Dr Vázquez for tomorrow, no urgent indication for overnight cardiac consultation or catheter medication, case was discussed with him Acute on chronic kidney disease Cardiorenal Continue diuresis Huff catheter to be placed Patient is diabetic Accu-Cheks every 4 hours Patient is hyperglycemic at this point, High anion gap with high lactic acid If blood sugar stays consistently high, patient may need insulin drip Full code Case discussed with her son who wants to keep her full code for now I had to explain to the son what intubation is Admit to ICU Covered with therapeutic Lovenox Attestations 2 Medical Necessity Statement*: More than 2 midnights anticipated Coding Level of Care Code Critical Care >/= 30 minutes Critical care time (in minutes): 45 The high probability of a clinically significant, sudden or life threatening deterioration, as referenced in this documentation, required my full and direct attention, intervention and personal management. The critical care time shown is in addition to time spent performing any reported separately billable procedures and includes the following: [x] Data and vital sign review and interpretation [x ] Patient assessment, examination and intervention [x] Medication orders and management [x] Patient/Family updates as able [x] Care Coordination and Documentation. Diagnoses Coronary artery disease I25.10 Non-STEMI (non-ST elevated myocardial infarction) I21.4 Respiratory arrest R09.2 Acute respiratory failure with hypoxia and hypercapnia J96.01; J96.02 Hypercapnic acidosis E87.29 Acute kidney injury superimposed on chronic kidney disease N17.9; N18.9 Closed compression fracture of L1 vertebra S32.010A
[2024-05-26 20:59] LABS: Troponin 5 2HR 50.24 ng/L (0-10)
[2024-05-26 21:00] LABS: Lactic Sepsis W/Reflex 2.5 mmol/L (0.5-2.2)
--- NOTE | 2024-05-26 21:00 | ECG_ITS ---
[facility] Test Date: 2024-05-26 Pat Name: Sally Henderson Department: Room: Gender: Female Allocations Clerk: : 1940 Requested By: Bebeto Yeager Order Number: [id number] Reading MD: WESLY MORLEY Measurements Intervals [place] Rate: 81 P: 35 SC: 161 QRS: -37 QRSD: 121 T: 144 QT: 421 QTc: 490 Interpretive Statements SINUS RHYTHM LEFT AXIS DEVIATION [QRS AXIS < -30] RIGHT BUNDLE BRANCH BLOCK [120+ ms QRS DURATION, UPRIGHT V1, 40+ ms S IN I/aVL/V4/V5/V6] POSSIBLE SEPTAL MYOCARDIAL INFARCTION , OF INDETERMINATE AGE [30 ms Q WAVE IN V1/V2] ST DEVIATION AND MODERATE T-WAVE ABNORMALITY, CONSIDER LATERAL ISCHEMIA [-0.1+ mV T-WAVE IN I/aVL/V5/V6] Compared to ECG 05/26/2024 18:54:56 Myocardial infarct finding now present Sinus tachycardia no longer present Electronically Signed On 06-03-2024 23:32:11 COMPLEX MANAGER by WESLY MORLEY [email or web address]
[2024-05-26] MEDS: enoxaparin 40 mg/0.4 mL Syringe 90 MG SUBCUT (21:02)
[2024-05-26] MEDS: FUROsemide 10 mg/mL SDV 10mL 60 MG IVP (21:02)
[2024-05-26 21:05] LABS: Troponin 5 2HR Delta 20.24 ABS# (0-10)
[2024-05-26 21:34] LABS: Estmated Average Glucose 166; Hemoglobin A1C 7.4 % (4.0-6.0)
[2024-05-26 21:44] LABS: Procalcitonin 0.02 ng/mL (0-0.5)
[2024-05-26 21:52] LABS: Adenovirus Not Detected (NOT DETECT); Chlamydia Pneumoniae Not Detected (NOT DETECT); Coronavirus 229E,HKU1,NL63,OC4 Not Detected (NOT DETECT); Human Metapneumovirus Not Detected (NOT DETECT); Human Rhinovirus/Enterovirus Not Detected (NOT DETECT); Influenza A Not Detected (NOT DETECT); Influenza A H1 Not Detected (NOT DETECT); Influenza A H1-2009 Not Detected (NOT DETECT); Influenza A H3 Not Detected (NOT DETECT); Influenza B Not Detected (NOT DETECT); Mycoplasma Pneumoniae Not Detected (NOT DETECT); Parainfluenza Virus Type 1 Not Detected (NOT DETECT); Parainfluenza Virus Type 2 Not Detected (NOT DETECT); Parainfluenza Virus Type 3 Not Detected (NOT DETECT); Parainfluenza Virus Type 4 Not Detected (NOT DETECT); Respiratory Syncytial Virus A Not Detected (NOT DETECT); Respiratory Syncytial Virus B Not Detected (NOT DETECT); SARS-COV-2 Not Detected (NOT DETECT)
[2024-05-26 22:03] LABS: Reflex Lactate Order REFLEX LACTIC ORDERD
--- NOTE | 2024-05-26 22:09 | PC.NURSE ---
Unable to complete suicide assessment due to patient being intubated in the field.
[2024-05-26 22:17] LABS: D Dimer 1.08 ug/mLFEU (0-0.59)
[2024-05-26 22:29] LABS: Free T4 Free Thyroxine 0.84 ng/dL (0.82-1.77)
[2024-05-26] MEDS: iohexol 350 mg/mL 500 mL Btl (per mL) IV (23:07)
[2024-05-27] VITALS (231 sets, daily range): BP systolic 70–139; BP diastolic 34–107; PULSE 56–90; RESP 11–32; TEMP 36.6–37.6; O2SAT 68–100; BMI 32.9
[2024-05-27] LABS: Lactic Acid level (Lactate) 1.5 mmol/L (0.5-2.2)
[2024-05-27] MEDS: clopidogrel 300 mg Tablet OG-TUBE (00:50)
[2024-05-27] MEDS: aspirin 325 mg Tablet OG-TUBE (00:50)
[2024-05-27] MEDS: piperacillin-tazobactam 3.375 GM in sodium chloride 0.9% (plus) 50 ML IV ×3 (00:51→16:29)
--- NOTE | 2024-05-27 00:53 | ECG_ITS ---
[facility] Test Date: 2024-05-27 Pat Name: Sally Henderson Department: Room: [facility] Gender: Female Audio Production Instructor: : 1940 Requested By: Bebeto Yeager Order Number: [id number] Reading MD: WESLY MORLEY Measurements Intervals [place] Rate: 61 P: 39 [place]: 166 QRS: -35 QRSD: 110 T: 146 QT: 476 QTc: 482 Interpretive Statements SINUS RHYTHM LEFT AXIS DEVIATION [QRS AXIS < -30] ST DEVIATION AND MODERATE T-WAVE ABNORMALITY, CONSIDER LATERAL ISCHEMIA [-0.1+ mV T-WAVE IN I/aVL/V5/V6] Compared to ECG 05/26/2024 21:00:17 Right bundle-branch block no longer present Myocardial infarct finding no longer present T-wave abnormality still present Possible ischemia still present Electronically Signed On 06-03-2024 23:31:52 DRIVER/REFUSE COLLECTOR by WESLY MORLEY [email or web address]
[2024-05-27 01:33] LABS: Troponin 5 6HR 360.1 ng/L (0-10); Troponin 5 6HR Delta 330.1 ng/L (0-12)
--- NOTE | 2024-05-27 01:39 | PC.NURSE ---
Insulin 10 units IVP insulin due once at 2207 along with aspirin, plavix, and zosyn. Patient arrived to unit at 2320. Medications retimed per pharmacy. Patient's glucose 175; Dr. Avelar contacted and order received to not administer insulin.
[2024-05-27 03:10] LABS: Glucose Point of Care 139 mg/dL (70-110)
[2024-05-27] MEDS: fentaNYL 1,000 MCG/100 ML BAG 10 MCG IV (04:07)
[2024-05-27 05:05] LABS: ABG PCO2 40.9 mmHg (35-45); ABG PH Result 7.45 (7.35-7.45); Arterial Blood Gas Hematocrit 37.7 % (37-47); Base Excess ABG 3.8 mmol/L (-2.0-2.0); Blood Gas Operator Identificat JDB; Blood Gas Sample Site Brachial, right; Blood Gas Sample Type Arterial; Blood Gas Tidal Volume 0.35; HCO3 ABG 28.2 mmol/L (22-26); Oxygen Device VENT; PO2 ABG 85.4 mmHg (80.0-100.0); PO2 FiO2 Ratio Arterial Blood 213
[2024-05-27 06:08] LABS: Basophils % 0.1 %; Eosinophils # 0.1 10^3/uL (0.0-0.8); Eosinophils % 0.5 %; Lymphocytes # 1.8 10^3/uL (0.8-4.8); Lymphocytes % 12.9 %; Mean Corpuscular HGB Conc 31.1 g/dL (30-55); Mean Corpuscular Hemoglobin 26.7 pg (27-33); Mean Corpuscular Volume 85.8 fl (85-98); Monocytes # 1.1 10^3/uL (0.2-0.9); Monocytes % 8.1 %; Neutrophils # 10.83 10^3/uL (1.8-7.7); Nucleated Red Blood Cells % 0 %; Platelet Count 258 10^3/cmm (157-399); Red Blood Count 4.31 10^6/uL (3.85-5.65); Red Cell Distribution Width 13.2 % (12.1-15.1); White Blood Count 13.89 10^3/uL (3.29-11.43)
[2024-05-27 07:14] LABS: Alanine Aminotransferase 16 U/L (0-33); Albumin Level 3.2 g/dL (3.5-5.2); Alkaline Phosphatase 109 U/L (35-105); Anion Gap 16.6 (5-19); Aspartate Amino Transferase 59 U/L (0-32); Blood Urea Nitrogen 28 mg/dL (8-23); C Reactive Protein 9.2 mg/L (0.0-4.9); Calcium 8.2 mg/dL (8.5-10.5); Carbon Dioxide 25 mmol/L (22-29); Chloride 105 mmol/L (98-107); Creatinine Clr Calc Pharmacy 39.6454; Globulin 2.8 g/dL (1.3-4.6); Glucose 71 mg/dL (65-115); Magnesium 1.9 mg/dL (1.7-2.3); Osmolality Calculated 300 mOsm/kg (285-295); Phosphorus 3.9 mg/dL (2.5-4.5); Potassium 3.6 mmol/L (3.5-5.1); Sodium 143 mmol/L (136-145); Total Bilirubin 0.2 mg/dL (0.15-1.2)
--- NOTE | 2024-05-27 07:20 | USR_ITS ---
PROCEDURE INFORMATION: Exam: US Duplex Left Lower Extremity Arteries Or Arterial Bypass Grafts Exam date and time: 05/27/2024 8:34 AM Age: 84 years old Clinical indication: Other: Cool leg; Additional info: Cool, venous and arterial TECHNIQUE: Imaging protocol: Left Real-time duplex scan of the arteries or arterial bypass grafts of the left lower extremity with 2-D vicente scale, color Doppler flow and spectral waveform analysis. Images documented and saved. COMPARISON: CR XR foot LT min 3V* [id number] 03/29/2023 11:20 AM FINDINGS: Left external iliac artery: Biphasic waveform of the left common iliac artery. Spectral broadening is noted. Left common femoral artery: Biphasic waveform of the left common femoral artery. Left superficial femoral artery: Biphasic waveform with spectral broadening. Left popliteal artery: Monophasic waveform of the left popliteal artery. Elevated velocity with spectral broadening. Left calf/foot arteries: Monophasic and depressed waveform of the left posterior tibialis artery. Monophasic and depressed waveform of the left dorsalis pedis artery. Other findings: Biphasic waveform of the superficial femoral artery. US/[place] [id number] IMPRESSION: Findings indicative of likely multifocal atherosclerotic related stenotic disease of the left lower extremity. No complete occlusion is seen.
--- NOTE | 2024-05-27 07:24 | PC.NURSE ---
Left foot Patient's left foot noted to be cooler and discolored as compared to the right foot. Pedal pulse in the right foot +3 palpable, pedal pulse in the left foot unable to be palpated while post tibial pulse +[address] Avelar notified and order received for ultrasound scan.
[2024-05-27 07:31] LABS: Glucose Point of Care 63 mg/dL (70-110)
--- NOTE | 2024-05-27 07:49 | PC.PHAR ---
Addendum entered by Sana Butts 05/27/24 08:04: Verified all last fill dates and days supply with [facility]. 05/27/24 Original Note: Pt unable to verify medications. Med rec completed with last fill dates and days supply. Will follow up with [facility] at 8am when they open.
[2024-05-27 07:56] LABS: Glucose Point of Care 60 mg/dL (70-110)
[2024-05-27] MEDS: dextrose 10% 125 ML 750 ML IV (08:28)
[2024-05-27] MEDS: enoxaparin 40 mg/0.4 mL Syringe 90 MG SUBCUT (08:34)
[2024-05-27] MEDS: pantoprazole 40 mg SDV IVP ×2 (08:36→17:16)
[2024-05-27] MEDS: FUROsemide 10 mg/mL SDV 10mL 60 MG IVP ×2 (08:38→20:09)
[2024-05-27] MEDS: propofol 1,000 MG/100 ML INJ 7.76 MG IV (08:48)
[2024-05-27] MEDS: aspirin 81 mg Chew Tablet OG-TUBE (08:48)
[2024-05-27] MEDS: sennosides-docusate Tablet 1 TAB PO (08:49)
[2024-05-27] MEDS: potassium chloride ER 20 mEq Tablet 40 MEQ PO (08:49)
[2024-05-27] MEDS: clopidogrel 75 mg Tablet OG-TUBE (08:49)
[2024-05-27 10:06] LABS: Glucose Point of Care 71 mg/dL (70-110)
--- NOTE | 2024-05-27 11:25 | PC.NURSE ---
Patients sedation weaned, RT switched patient over to pressure support. Notified Dr. Cooper, patient extubated at 1115.
--- NOTE | 2024-05-27 12:24 | P.CONIM_ITS ---
<Statement entered by Robson Vázquez MD - 06/15/24 20:52> Patient was evaluated and cared for in conjunction with an advanced practice practitioner. I personally examined the patient and reviewed the chart and all pertinent data including imaging, telemetry, and laboratory results. I discussed the patient in detail with the advanced practice practitioner. Please see their note for complete H&P testing result and agreed upon plan of care for the patient. Sally Henderson is a 84 year old female with history of CAD s/p CABG- known chronic severe stenosis of the [place] left circumflex, [place] to LAD patent by angiogram in December, and SVG grafts known occluded. Presented with chest pain and abnormal cardiac markers GENERAL: Patient is alert, awake and oriented x3. HEART: Regular S1 and S2. No murmur, rub or gallop. LUNGS: Clear to auscultate bilaterally. CENTRAL NERVOUS SYSTEM: Grossly nonfocal. EXTREMITIES: Lower extremities with out edema bilaterally. Assessment and plan Chest pain Abnormal cardiac markers Coronary arteries history of CABG Hypertension Hyperlipidemia Please see treatment with below in detail and cardiology nurse practitioner note which was formulated after discussion with me. Providers/Reason For Consult 2 Consulting Physician/Specialty*: Dr Vázquez, cardiology Reason for Consult*: NSTEMI Requesting Physician: Dr Avelar, hospitalist Attending Physician: Eric Cooper DO Primary Care Provider: Antonio Delgado MD History of Present Illness History of Present Illness Sally Henderson is a 84 year old female with history of CAD s/p CABG- known chronic severe stenosis of the [place] left circumflex, [place] to LAD patent by angiogram in December, and SVG grafts known occluded. She also has a history of type 2 diabetes and hypertension. She was brought to the hospital by EMS yesterday, intubated prehospital for respiratory distress/arrest. Per EMS report she did lose pulse and was treated with atropine and epinephrine, ROSC acheived. She has been intubated and sedated since then. Troponin baseline 30, 120 minute was 50, 6 hr was 360. BNP yesterday 2862 with creatinine 1.2. Today creatinine 1.0. EKG did not show STEMI. CTA of chest negative for pulmonary embolus, did show mild interstitial edema. Possible pneumonia. Limited echocardiogram today shows LVEF 50%, unchanged from study dated 04/10/24. No DVT present in lower extremities by doppler this morning. Arterial duplex of the left leg due to concerns of leg cool to touch- no occlusion noted, biphasic waveform in left common iliac, common femoral, SFA. Monophasic waveform in the popliteal, posterior tibialis, dorsalis pedis. Review of Systems 2 Narrative: She is intubated and sedated, unable to provide history or symptoms. Medications/Allergies Home Medications Medication Instructions Recorded Confirmed Last Taken Type gabapentin 600 mg tablet 600 mg PO BEDTIME 05/28/19 05/27/24 03/12/24 08:00 History multivitamin 1 tab PO BEDTIME 09/19/20 05/27/24 03/12/24 History calcium carbonate 500 mg PO DAILY 08/29/23 05/27/24 03/12/24 History tramadol 50 mg tablet 100 mg PO BEDTIME 08/29/23 05/27/24 03/12/24 History aspirin 81 mg tablet,delayed 81 mg PO DAILY 30 days #30 tabs 12/25/23 05/27/24 03/12/24 Rx release atorvastatin 40 mg tablet 40 mg PO BEDTIME #90 tabs 03/27/24 05/27/24 Unknown Rx clopidogrel 75 mg tablet 75 mg PO BEDTIME #90 tabs 03/27/24 05/27/24 Unknown Rx ranolazine 500 mg tablet,extended 500 mg PO BID #60 tabs 03/27/24 05/27/24 Unknown Rx release,12 hr insulin degludec 200 unit/mL (3 27 unit SUBCUT DAILY 04/10/24 05/27/24 Unknown History mL) subcutaneous pen (Tresiba FlexTouch U-200 insulin) isosorbide mononitrate 30 mg 30 mg PO DAILY 04/10/24 05/27/24 Unknown History tablet,extended release 24 hr nitroglycerin 0.4 mg sublingual 0.4 mg buccal PRN PRN Chest Pain 04/10/24 05/27/24 Unknown History tablet furosemide 40 mg tablet 40 mg PO DAILY@0800 30 days #30 04/13/24 05/27/24 Unknown Rx tabs potassium chloride 20 mEq 20 meq PO DAILY 30 days #30 tabs 04/13/24 05/27/24 Unknown Rx tablet,extended release(part/cryst) (Klor-Con M) Allergies Allergy/AdvReac Type Severity Reaction Status Date / Time No Known Allergies Allergy Verified 03/27/24 13:49 Current Medications Generic Name Dose Route Start Last Admin Trade Name Davidq PRN Reason Stop Dose Admin Aspirin 81 mg 05/27/24 09:00 05/27/24 08:48 Aspirin 81 Mg Chew Tablet OG-TUBE 81 mg DAILY LI Administration Clopidogrel Bisulfate 75 mg 05/27/24 09:00 05/27/24 08:49 Clopidogrel 75 Mg Tablet OG-TUBE 75 mg DAILY LI Administration Enoxaparin Sodium 90 mg 05/26/24 20:45 05/27/24 08:34 Enoxaparin 40 Mg/0.4 Ml Syringe SUBCUT 90 mg Q12H LI Administration Furosemide 60 mg 05/26/24 20:45 05/27/24 08:38 Furosemide 10 Mg/Ml Sdv 10ml IVP 60 mg Q12H LI Administration Propofol 1,000 mg in 100 mls @ 0 mls/hr 05/26/24 19:00 05/27/24 09:00 Diprivan IV 0 mcg/kg/min .Q0M LI 0 mls/hr Titration Protocol Per Protocol Fentanyl 1,000 mcg in 100 mls @ 0 mls/hr 05/26/24 19:00 05/27/24 09:00 Sublimaze IV 0 mcg/hr .Q0M LI 0 mls/hr Titration Protocol Per Protocol Piperacillin Sod/Tazobactam 50 mls @ 12.5 mls/hr 05/27/24 08:00 05/27/24 08:46 Sod 3.375 gm/ Sodium Chloride IV 12.5 mls/hr Q8H LI Administration Dextrose 125 mls @ 750 mls/hr 05/27/24 08:15 05/27/24 08:55 D10w IV Infused PRN PRN Infusion HYPOGLYCEMIA Pantoprazole Sodium 40 mg 05/27/24 09:00 05/27/24 08:36 Pantoprazole 40 Mg Sdv IVP 40 mg BID LI Administration Potassium Chloride 40 meq 05/27/24 09:00 05/27/24 08:49 Potassium Chloride Er 20 Meq Tablet PO 40 meq DAILY LI Administration Senna/Docusate Sodium 1 tab 05/27/24 09:00 05/27/24 08:49 Sennosides-Docusate Tablet PO 1 tab DAILY LI Administration PFSH Acute 2 PFSH: Medical History NSTEMI (non-ST elevated myocardial infarction) Hyperglycemia Hyperkalemia Elevated brain natriuretic peptide (BNP) level Hyperglycemia Hypoxic respiratory failure Dyslipidemia Contrast-induced nephropathy Type 2 diabetes mellitus without complications CAD (coronary artery disease) Acute [place] Essential (primary) hypertension Surgical History Hx of hysterectomy Hx of CABG Family History Unknown No problems noted. Social History Smoking and tobacco/nicotine status: former use of tobacco/nicotine Alcohol intake: never Substance/Drug Use: never Vitals/I&O/Wt Last Vital Signs Temp 97.9 F 05/27/24 04:10 Pulse 71 05/27/24 12:20 Resp 19 H 05/27/24 12:20 BP 105/50 05/27/24 12:20 Pulse Ox 92 05/27/24 12:20 O2 Del Method Mechanical Ventilation 05/27/24 04:10 FiO2 40 05/27/24 10:49 05/26/24 05/27/24 05/27/24 22:59 06:59 14:59 Intake Total 2629.298 / 2802.640 173.342 / 2802.640 189.861 / 189.861 Output Total 3200 / 3200 Balance 2629.298 / -397.360 -3026.658 / -397.360 189.861 / 189.861 Weight last 48 hrs Weight 168 lb 10.458 oz Weight 173 lb 1.006 oz Weight 190 lb Physical Exam 2 Chest: COMMONS NORMALS: normal inspection of the chest Resp: COMMON NORMALS: clear to auscultation bilaterally EFFORT & INSPECTION: Yes other (intubated and ventilated mechanically) AUSCULTATION: c lear to auscultation bilaterally Cardio: COMMON NORMALS: regular rate, regular rhythm, S1 normal heart sound present, S2 normal heart sound present and No murmurs present (Cardio) RATE: regular rate RHYTHM: regular rhythm HEART SOUNDS: S1 normal heart sound present and S2 normal heart sound present Neuro: SENSORIUM/ORIENTATION: Yes other (sedated) Urinary Catheter Management: Huff: Cath Placed During This Visit: yes Reason for Continuing Indwelling Catheter: Accurate Measurement of Urinary Output in Critically Ill Patients Urinary Catheter Date of Insertion: 05/26/24 Urinary Catheter Time of Insertion: 19:13 Data 05/27/24 05:54 05/27/24 05:54 Micro: Microbiology 05/26/24 19:32 Gram Stain - Final Sputum - Endotracheal Tube Aspirate 05/26/24 20:30 Blood Culture - Preliminary Blood SPECIMEN COLLECTED 05/26/24 20:32 Blood Culture - Preliminary Blood SPECIMEN COLLECTED A&P Assessment and plan (1) Non-STEMI (non-ST elevated myocardial infarction): (2) Coronary artery disease: Known obstructive CAD not amenable to intervention. Plan to manage NSTEMI medically at this time. Continue aspirin, Plavix, statin. We cannot utilize beta sabrina due to soft blood pressures. Qualifiers: Coronary Disease-Associated Artery/Lesion type: bypass graft [place] vs. transplanted heart: [place] heart Associated angina: without angina Qualified Code(s): I25.810 - Atherosclerosis of coronary artery bypass graft(s) without angina pectoris Consult Attestations 2 Medical Necessity Statement: per hospitalist Coding Level of Care Code Acute Code for [facility] Fwd Diagnoses Non-STEMI (non-ST elevated myocardial infarction) I21.4 Coronary artery disease involving coronary bypass graft of [place] heart without angina pectoris I25.810 Coronary Disease-Associated Artery/Lesion type: bypass graft [place] vs. transplanted heart: [place] heart Associated angina: without angina
--- NOTE | 2024-05-27 12:50 | PC.NURSE ---
Nursing Dysphasia Assessment done bedside. No concerns noted, ST ordered for patient to assess diet tolerance
[2024-05-27 16:39] LABS: Glucose Point of Care 155 mg/dL (70-110)
[2024-05-27 16:39] LABS: Glucose Point of Care 65 mg/dL (70-110)
--- NOTE | 2024-05-27 19:19 | P.PN_ITS ---
Subjective 2 Subjective: Patient seen prior to extubation. She was agitated nodding her head aggressively. I asked if she wanted the tube out and she nodded her head again. She tried writing but I could not read it. I asked nurse to proceed with extubation if met criteria. Later in the afternoon I saw patient extubated wearing O2 at 4 L. She states her normal is 3 L. She is in no acute distress she is asking to go home. She states that she just had trouble breathing and she did not know why Vitals/I&O/Wt Last Vital Signs Temp 97.9 F 05/27/24 04:10 Pulse 76 05/27/24 18:30 Resp 16 05/27/24 18:30 BP 119/61 05/27/24 18:30 Pulse Ox 89 L 05/27/24 18:30 O2 Del Method Nasal Cannula 05/27/24 14:36 O2 Flow Rate 4 05/27/24 14:36 FiO2 40 05/27/24 10:49 05/27/24 05/27/24 05/27/24 06:59 14:59 22:59 Intake Total 173.342 / 2802.640 239.861 / 239.861 Output Total 3200 / 3200 2100 / 2100 Balance -3026.658 / -397.360 239.861 / 239.861 -2100 / -1860.139 Weight last 48 hrs Weight 76.5 kg Weight 78.5 kg Weight 86.183 kg Physical Exam 2 Narrative: Alert and oriented to person place time and situation Heart is regular normal S1-S2 without murmurs clicks gallops or rubs\ Lungs are diminished breath sounds bilateral bases there is crackles as well Abdomen soft nontender nondistended positive bowel sounds Extremities mild to 1+ pitting edema to knees Urinary Catheter Management: Huff: Cath Placed During This Visit: yes Reason for Continuing Indwelling Catheter: Accurate Measurement of Urinary Output in Critically Ill Patients Urinary Catheter Date of Insertion: 05/26/24 Urinary Catheter Time of Insertion: 19:13 Data 05/27/24 05:54 05/27/24 05:54 Micro: Microbiology 05/26/24 19:32 Gram Stain - Final Sputum - Endotracheal Tube Aspirate 05/26/24 20:30 Blood Culture - Preliminary Blood SPECIMEN COLLECTED 05/26/24 20:32 Blood Culture - Preliminary Blood SPECIMEN COLLECTED CTA Chest: Radiologist's impression: MPRESSION: 1. Negative exam for pulmonary embolus and aortic dissection. 2. Dependent areas of consolidative changes involving the bilateral upper and lower lobes which may reflect alveolar edema or pneumonia. There is mild bilateral diffuse interstitial edema. 3. Atherosclerosis including coronary artery calcification. 4. Cardiomegal A&P Assessment and plan (1) Acute respiratory failure with hypoxia and hypercapnia: (2) Non-STEMI (non-ST elevated myocardial infarction): (3) CHF (congestive heart failure): (4) Hypercapnic acidosis: Plan Acute respiratory failure with hypoxia and hypercapnia. Patient was already wearing oxygen from home she does not carry a diagnosis of COPD nor do I see inhalers or nebulizers. Patient did not tell me she has CHF however a limited echo reveals a reduced EF and dilated left ventricle. She also has an increased left atrial size. And lastly her urine is pathognomonic for CHF after getting Lasix. Patient was successfully extubated earlier this morning. Patient was intubated in the field when EMS found the patient in respiratory distress. They obtained saturations in the 70s despite her awake and talking. And she even walked out of her room. Shortly thereafter she did become unresponsive and they documented that pulses were lost. It was reported that she was in PEA for very short duration and given 1 mg of atropine and 1 mg of epinephrine. No chest compressions were initiated. And the return of circulation was obtained. Patient with elevated troponins and this cardiac and respiratory event as stated above. These laboratory values may not be consistent with non-STEMI. Cardiology was consulted. They reported that patient has known obstructive CAD that is not amendable to intervention. They plan to treat medically at this time continue aspirin Plavix statin. Cannot utilize beta-sabrina at this time due to soft blood pressures. CT scan and clinically patient is in CHF. Patient is ordered Lasix and having excellent diuresis. Continue IV Lasix follow clinically and follow laboratory for electrolyte management. Otherwise continue home meds and assess for DC home tomorrow Attestations 2 Medical Necessity Statement*: Patient and acute on chronic CHF diuretics have been increased patient with a recent cardiopulmonary arrest of unclear etiology will need to follow in hospital since underlying etiology is unknown Coding Level of Care Code Acute Code for [facility] Diagnoses Acute respiratory failure with hypoxia and hypercapnia J96.01; J96.02 Non-STEMI (non-ST elevated myocardial infarction) I21.4 CHF (congestive heart failure) I50.9 Hypercapnic acidosis E87.29
[2024-05-27] MEDS: TRAMadol 50 mg Tablet 100 MG PO (20:09)
--- NOTE | 2024-05-27 20:20 | PC.NURSE ---
Message sent to Dr. Morse regarding patient's frequent cough with bloody expectorant. Order received to hold 2100 lovenox dose of 90mg and an order for bony richard.
[2024-05-27] MEDS: atorvastatin 40 mg Tablet 80 MG NG-TUBE (20:29)
[2024-05-27] MEDS: benzonatate 100 mg Capsule 200 MG PO (20:33)
--- NOTE | 2024-05-27 20:49 | USCV_ITS ---
Sally Henderson Age: 84 Gender: F : 1940 Exam Date: 05/27/2024 08:34 Ordering Phys: Robson Avelar MD Technologist: Exam Location: [facility] [place] Indication: chf BP: / HR: Rhythm: Sinus Technical Quality: Good MEASUREMENTS (Male / Female) Normal Values FINDINGS Left Ventricle Mild diffuse hypokinesis of the left ventricle and with a diminished ejection fraction of around 50%. . Mildly dilated left ventricle Right Ventricle Possibly normal size ejection fraction. Right Atrium Possibly of normal size Left Atrium Mildly increased left atrial size. Mitral Valve Mild mitral annular calcification. Thickened mitral valve. Aortic Valve Thickened aortic valve. Tricuspid Valve No gross morphologic abnormalities noted Pulmonic Valve Pulmonic valve not well visualized. Pericardium No pericardial effusion. Aorta Normal aortic annulus size. IVC Appears to be of normal size. CONCLUSIONS Mild diffuse hypokinesis of the left ventricle and with a diminished ejection fraction of around 50%. . Mildly dilated left ventricle. Mildly increased left atrial size. Mild mitral annular calcification. Thickened mitral valve. Thickened aortic valve. Compared to the study from 04/10/2024, there may not be significant change. Dr Angela Lopez MD [facility] (Electronically Signed) Final Date: 27 May 2024 11:13 S
--- NOTE | 2024-05-27 20:50 | USCV_ITS ---
Sally Henderson Age: 84 Gender: F : 1940 Exam Date: 05/27/2024 08:53 Ordering Phys: Robson Avelar MD Technologist: [place] [facility] [place]: BED STASIS PROCEDURES: The following venous structures were evaluated: common femoral vein, profunda vein, proximal portion of the greater saphenous vein, superficial femoral vein, and the popliteal vein. In addition, the posterior tibial and peroneal trunk were evaluated. FINDINGS: Normal 2-D Doppler and augmentation and compressibility throughout the lower extremity venous structures. Additional imaging through the proximal calf veins also reveals no thrombus. Limited evaluation of the greater saphenous vein is patent with no thrombus. CONCLUSIONS No DVT bilateral lower extremities. Dr. Denisse Cho DO (Electronically Signed) Final Date: 27 May 2024 10:40 S
--- NOTE | 2024-05-27 23:00 | PC.NURSE ---
Patient's cough much less frequent. Only a few blood tinged kleenexes.
[2024-05-27 23:30] LABS: Glucose Point of Care 241 mg/dL (70-110)
[2024-05-28] VITALS (16 sets, daily range): BP systolic 104–146; BP diastolic 50–72; PULSE 59–80; RESP 14–23; TEMP 36.7–37.3; O2SAT 86–98
[2024-05-28] MEDS: piperacillin-tazobactam 3.375 GM in sodium chloride 0.9% (plus) 50 ML IV ×2 (00:12→08:30)
[2024-05-28] MEDS: ondansetron 2 mg/ML SDV 2 mL 4 MG IVP (03:00)
[2024-05-28 06:54] LABS: Bacillus cereus group Not Detected (NOT DETECT); Bacillus subtillis group Not Detected (NOT DETECT); Corynebacterium Not Detected (NOT DETECT); Cutibacterium acnes (P.acnes) Not Detected (NOT DETECT); Enterococcus Not Detected (NOT DETECT); Enterococcus faecalis Not Detected (NOT DETECT); Enterococcus faecium Not Detected (NOT DETECT); Lactobacillus species Not Detected (NOT DETECT); Listeria Not Detected (NOT DETECT); Listeria monocytogenes Not Detected (NOT DETECT); Micrococcus Not Detected (NOT DETECT); Pan Candida Not Detected (NOT DETECT); Pan Gram-Negative Not Detected (NOT DETECT); Staphylococcus epidermidis Not Detected (NOT DETECT); Staphylococcus lugdunensis Not Detected (NOT DETECT); Staphylococcus species Not Detected (NOT DETECT); Streptococcus agalactiae Not Detected (NOT DETECT); Streptococcus anginosus group Not Detected (NOT DETECT); Streptococcus pneumoniae Not Detected (NOT DETECT); Streptococcus pyogenes Not Detected (NOT DETECT); Streptococcus species Detected (NOT DETECT)
[2024-05-28 07:49] LABS: Glucose Point of Care 141 mg/dL (70-110)
[2024-05-28] MEDS: pantoprazole 40 mg SDV IVP (08:31)
[2024-05-28] MEDS: FUROsemide 10 mg/mL SDV 10mL 60 MG IVP (08:34)
[2024-05-28] MEDS: enoxaparin 40 mg/0.4 mL Syringe 90 MG SUBCUT (08:35)
[2024-05-28] MEDS: sennosides-docusate Tablet 1 TAB PO (08:36)
[2024-05-28] MEDS: potassium chloride ER 20 mEq Tablet 40 MEQ PO (08:36)
[2024-05-28] MEDS: clopidogrel 75 mg Tablet OG-TUBE (08:37)
[2024-05-28] MEDS: aspirin 81 mg Chew Tablet OG-TUBE (08:37)
--- NOTE | 2024-05-28 08:58 | P.PN_ITS ---
<Statement entered by Robson Vázquez MD - 05/28/24 22:07> Patient was evaluated and cared for in conjunction with an advanced practice practitioner. I personally examined the patient and reviewed the chart and all pertinent data including imaging, telemetry, and laboratory results. I discussed the patient in detail with the advanced practice practitioner. Please see their note for complete H&P testing result and agreed upon plan of care for the patient. Extubated denies any complaint doing fine GENERAL: Patient is alert, awake and oriented x3. HEART: Regular S1 and S2. No murmur, rub or gallop. LUNGS: Clear to auscultate bilaterally. CENTRAL NERVOUS SYSTEM: Grossly nonfocal. EXTREMITIES: Lower extremities with out edema bilaterally. Non-ST elevation [place]: Secondary to demand ischemia patient has known intervenable disease with occluded grafts and [place] vessel not amenable to intervention we will continue to manage medically continue aspirin statin beta-sabrina Acute on chronic decompensated heart failure: Appeared to be euvolemic continue diuretics. Subjective 2 Subjective: Patient did well overnight, extubated yesterday. She is eating breakfast, feels ready to go home. No chest pain. She seems to have a productive cough. Blood pressure stable and well controlled. Vitals/I&O/Wt Last Vital Signs Temp 98.8 F 05/28/24 06:00 Pulse 59 L 05/28/24 08:00 Resp 14 05/28/24 08:00 BP 118/69 05/28/24 08:00 Pulse Ox 97 05/28/24 08:00 O2 Del Method Nasal Cannula 05/27/24 22:00 O2 Flow Rate 3 05/27/24 21:00 FiO2 40 05/27/24 10:49 05/27/24 05/28/24 05/28/24 22:59 06:59 14:59 Intake Total 290 / 649.861 120 / 649.861 290 / 290 Output Total 2900 / 4150 1250 / 4150 Balance -2610 / -3500.139 -1130 / -3500.139 290 / 290 Weight last 48 hrs Weight 166 lb 7.184 oz Weight 168 lb 10.458 oz Weight 173 lb 1.006 oz Weight 190 lb Physical Exam 2 Const: COMMON NORMALS: no acute distress and patient oriented x3 GENERAL APPEARANCE: cooperative and comfortable ORIENTATION/CONSCIOUSNESS: Yes awake, Yes oriented to person, Yes oriented to place and Yes oriented to time Chest: COMMONS NORMALS: normal inspection of the chest and normal palpation of entire chest wall CHEST: Yes Symmetrical chest wall rise Resp: COMMON NORMALS: normal respiratory effort, No retractions, No use of accessory muscles and clear to auscultation bilaterally EFFORT & INSPECTION: Yes symmetric chest movement AUSCULTATION: clear to auscultation bilaterally Cardio: COMMON NORMALS: regular rate, regular rhythm, S1 normal heart sound present, S2 normal heart sound present, No gallops present (Cardio), No clicks present (Cardio), No murmurs present (Cardio) and No rub (Cardio) RATE: r egular rate RHYTHM: regular rhythm HEART SOUNDS: S1 normal heart sound present and S2 normal heart sound present PERIPHERAL PULSES: radial pulses present Extremity: COMMON NORMALS: no pedal edema Neuro: COMMON NORMALS: patient oriented x3 and moves all extremities S ENSORIUM/ORIENTATION: Yes oriented to person, Yes oriented to place and Yes oriented to time Urinary Catheter Management: Huff: Cath Placed During This Visit: yes Reason for Continuing Indwelling Catheter: Accurate Measurement of Urinary Output in Critically Ill Patients Urinary Catheter Date of Insertion: 05/26/24 Urinary Catheter Time of Insertion: 19:13 Data 05/27/24 05:54 05/27/24 05:54 Micro: Microbiology 05/26/24 20:32 Blood Culture - Preliminary Blood 05/26/24 20:30 Blood Culture - Preliminary Blood NEGATIVE TO DATE 05/26/24 19:32 Gram Stain - Final Sputum - Endotracheal Tube Aspirate A&P Assessment and plan (1) Non-STEMI (non-ST elevated myocardial infarction): She is stable from a cardiac perspective. OK to discharge home when acceptable with hospitalist. Continue aspirin, Plavix, statin, Lasix 40mg daily, Ranexa, isosorbide mononitrate. (2) CHF (congestive heart failure): She appears well compensated, fluid balance negative 3L, weight down 2 pounds from yesterday. Qualifiers: Heart failure type: systolic Heart failure chronicity: chronic Qualified Code(s): I50.22 - Chronic systolic (congestive) heart failure Attestations 2 Medical Necessity Statement*: plan to discharge home, when hospitalist agrees Coding Level of Care Code Acute Code for [facility] Diagnoses Non-STEMI (non-ST elevated myocardial infarction) I21.4 Chronic systolic congestive heart failure I50.22 Heart failure type: systolic Heart failure chronicity: chronic
[2024-05-28 09:00] LABS: Glucose Point of Care 175 mg/dL (70-110)
--- NOTE | 2024-05-28 12:34 | PM.DCS ---
Discharge Providers Date of Admission: 05/26/24 22:34 Date of Discharge: May 28, 2024 Attending Provider at Admission: Robson Avelar MD Attending Provider at Discharge: Eric Cooper DO Primary Care Provider: Antonio Delgado MD Diagnoses at Discharge Discharge Diagnosis (1) Non-STEMI (non-ST elevated myocardial infarction): Status: Acute (2) CHF (congestive heart failure): Status: Acute Qualifiers: Heart failure type: systolic Heart failure chronicity: chronic Qualified Code(s): I50.22 - Chronic systolic (congestive) heart failure (3) Acute on chronic diastolic CHF (congestive heart failure): Status: Acute Reason for Visit Reason for Visit: resp distress Brief History: According to reports patient had respiratory distress. Collapsed when EMS was there. Reports are that she lost a pulse and required a dose of epi and Atrovent and then she regained pulse with normal vital signs. She was intubated in the field. Hospital Course Hospital Course Patient was admitted for acute on chronic respiratory failure with hypoxia and hypercapnia. The following day patient was awake and alert and asking for the tube to be taken out. She was easily and successfully extubated the morning of the . Clinically she appeared to be volume overloaded and she was given Lasix 60 IV every 12 with excellent urine output and clearing clinically. In my opinion I am suspicious of patients lost a pulse. Patient has history of coronary disease and LV dysfunction I doubt the patient would have recovered this quickly if she suffered cardiac arrest. Her troponins did increase and this could have been from acute respiratory failure and the stress of illness and intubation. Cardiology was consulted and no further workup was suggested. They recommended medical management. Patient was taking furosemide 40 mg once a day this will be increased to 40 mg twice daily at discharge also her potassium supplementation will need to be increased. And atorvastatin should be increased from 40-80 for maximal medical management. She is accepting of having home health care follow her as an outpatient. I recommend RN to follow for vital signs assessment of CHF and education. She will also require PT to regain previous strength. Follow-up with primary care in 1 week and cardiology in 2 to 3 weeks. Physical Exam Narrative: Alert and oriented to person place time and situation Heart is regular normal S1-S2 without murmurs clicks gallops or rubs Lungs are severely diminished breath sounds, no crackles are auscultated patient has very poor aeration Abdomen soft nontender nondistended positive bowel sounds Extremities edema improved Urinary Catheter Management: Huff: Cath Placed During This Visit: yes Reason for Continuing Indwelling Catheter: Accurate Measurement of Urinary Output in Critically Ill Patients Urinary Catheter Date of Insertion: 05/26/24 Urinary Catheter Time of Insertion: 19:13 Discharge Data Studies Completed and Pending Completed Studies During Hospitalization Category Date Time Status CT angio chest PE protcl [id number] Urgent Cat Scan 05/26/24 19:[address] head wo con* [id number] Stat Cat Scan 05/26/24 19:30 Completed XR chest 1V portable [id number] Stat Exams 05/26/24 18:52 Completed XR chest 1V portable [id number] Stat Exams 05/26/24 20:17 [place] [id number] Routine Ultrasound 05/27/24 07:20 [place] [id number] Routine Ultrasound 05/27/24 20:50 Completed CV. echo limited [id number] Routine Ultrasound 05/27/24 20:49 Completed Pending at discharge Category Date Time Status Blood Culture Stat Lab 05/26/24 20:30 Results Sputum Culture and Gram Stain Stat Lab 05/26/24 19:32 Results Radiology Impressions Head CT 05/26/24 19:30 IMPRESSION: No acute intracranial findings. Chronic/age-related changes as above. Chest CTA 05/26/24 19:31 IMPRESSION: 1. Negative exam for pulmonary embolus and aortic dissection. 2. Dependent areas of consolidative changes involving the bilateral upper and lower lobes which may reflect alveolar edema or pneumonia. There is mild bilateral diffuse interstitial edema. 3. Atherosclerosis including coronary artery calcification. 4. Cardiomegaly. Chest X-Ray 05/26/24 20:17 IMPRESSION: New right-sided venous catheter without postprocedural pneumothorax. Otherwise, no change since reference study. Duplex Scan Lower Extremity Artery 05/27/24 07:20 IMPRESSION: Findings indicative of likely multifocal atherosclerotic related stenotic disease of the left lower extremity. No complete occlusion is seen. Laboratory Results WBC 13.89 10^3/uL (3.29-11.43) H 05/27/24 05:54 RBC 4.31 10^6/uL (3.85-5.65) 05/27/24 05:54 Hgb 11.50 g/dL (11.27-16.99) 05/27/24 05:54 Hct 37.0 % (36-47) 05/27/24 05:54 MCV 85.8 fl (85-98) 05/27/24 05:54 MCH 26.7 pg (27-33) L 05/27/24 05:54 MCHC 31.1 g/dL (30-55) D 05/27/24 05:54 RDW 13.2 % (12.1-15.1) 05/27/24 05:54 Plt Count 258 10^3/cmm (157-399) 05/27/24 05:54 MPV 11.0 fL (7.4-10.4) H 05/27/24 05:54 Neut % (Auto) 78.0 % 05/27/24 05:54 Lymph % (Auto) 12.9 % 05/27/24 05:54 [place] % (Auto) 8.1 % 05/27/24 05:54 Eos % (Auto) 0.5 % 05/27/24 05:54 Baso % (Auto) 0.1 % 05/27/24 05:54 Neut # (Auto) 10.83 10^3/uL (1.8-7.7) H 05/27/24 05:54 Lymph # (Auto) 1.8 10^3/uL (0.8-4.8) 05/27/24 05:54 [place] # (Auto) 1.1 10^3/uL (0.2-0.9) H 05/27/24 05:54 Eos # (Auto) 0.1 10^3/uL (0.0-0.8) 05/27/24 05:54 Baso # (Auto) 0.0 10^3/uL (0.0-0.1) 05/27/24 05:54 Nucleated RBC % (auto) 0 % 05/27/24 05:54 Nucleated RBCs # 0.0 /100WBC 05/27/24 05:54 D-Dimer 1.08 ug/mLFEU (0-0.59) H 05/26/24 18:59 Specimen Type Arterial 05/27/24 04:52 Sample Site Brachial, right 05/27/24 04:52 ABG pH 7.45 (7.35-7.45) 05/27/24 04:52 ABG pCO2 40.9 mmHg (35-45) 05/27/24 04:52 ABG pO2 85.4 mmHg (80.0-100.0) 05/27/24 04:52 ABG PO2/FiO2 Ratio 213 05/27/24 04:52 ABG HCO3 28.2 mmol/L (22-26) H 05/27/24 04:52 ABG Base Excess 3.8 mmol/L (-2.0-2.0) H 05/27/24 04:52 Tanner Test N/a 05/27/24 04:52 Hematocrit 37.7 % (37-47) 05/27/24 04:52 Hgb O2 Saturation 97.7 % (95-100) 05/26/24 19:06 Carboxyhemoglobin 0.5 %THgb (0.4-20.1) 05/26/24 19:06 Methemoglobin 1.3 % (0.4-1.5) 05/26/24 19:06 Total Hemoglobin 12.7 g/dL (12-16) 05/26/24 19:06 O2 Delivery Device Vent 05/27/24 04:52 FiO2 40.0 % 05/27/24 04:52 Tidal Volume 0.35 05/27/24 04:52 PEEP 6.0 cmH20 05/27/24 04:52 Psychologist Engineering ID [id number] 05/27/24 04:52 Sodium 143 mmol/L (136-145) 05/27/24 05:54 Potassium 3.6 mmol/L (3.5-5.1) 05/27/24 05:54 Chloride 105 mmol/L (98-107) 05/27/24 05:54 Carbon Dioxide 25 mmol/L (22-29) 05/27/24 05:54 Anion Gap 16.6 (5-19) 05/27/24 05:54 BUN 28 mg/dL (8-23) H 05/27/24 05:54 Creatinine 1.0 mg/dL (0.5-0.9) H 05/27/24 05:54 GFR Calculation Not Reportable 05/27/24 05:54 Glucose 71 mg/dL (65-115) 05/27/24 05:54 POC Glucose 141 mg/dL (70-110) H 05/28/24 07:19 Estimat Average Glucose 166 05/26/24 18:59 Hemoglobin A1c 7.4 % (4.0-6.0) H 05/26/24 18:59 Calculated Osmolality 300 mOsm/kg (285-295) H 05/27/24 05:54 Lactic Acid 2.5 mmol/L (0.5-2.2) H 05/26/24 20:32 Lactic Acid (Sepsis) 1.5 mmol/L (0.5-2.2) 05/26/24 23:34 Calcium 8.2 mg/dL (8.5-10.5) L 05/27/24 05:54 Phosphorus 3.9 mg/dL (2.5-4.5) 05/27/24 05:54 Magnesium 1.9 mg/dL (1.7-2.3) 05/27/24 05:54 Total Bilirubin 0.2 mg/dL (0.15-1.2) 05/27/24 05:54 AST 59 U/L (0-32) H 05/27/24 05:54 ALT 16 U/L (0-33) 05/27/24 05:54 Alkaline Phosphatase 109 U/L (35-105) H 05/27/24 05:54 Troponin T Baseline 30 ng/L (0-10) H 05/26/24 18:59 Troponin T 120 Minute 50.24 ng/L (0-10) H 05/26/24 20:32 Delta Troponin T 20.24 ABS# (0-10) H* 05/26/24 20:32 Troponin T Hi Sens 6Hr 360.1 ng/L (0-10) H 05/27/24 01:00 Troponin T Hi Sens 6Hr Delta 330.1 ng/L (0-12) H* 05/27/24 01:00 C-Reactive Protein 9.2 mg/L (0.0-4.9) H 05/27/24 05:54 NT-Pro-B Natriuret Pep 2862 pg/mL (0-450) H 05/26/24 18:59 Total Protein 6.0 g/dL (6.6-8.7) L 05/27/24 05:54 Albumin 3.2 g/dL (3.5-5.2) L 05/27/24 05:54 Globulin 2.8 g/dL (1.3-4.6) 05/27/24 05:54 Procalcitonin 0.02 ng/mL (0-0.5) 05/26/24 18:59 TSH 6.00 uIU/mL (0.27-4.20) H 05/26/24 18:59 Free T4 0.84 ng/dL (0.82-1.77) 05/26/24 20:32 Adenovirus (PCR) Not detected (NOT DETECT) 05/26/24 19:13 C. pneumoniae DNA (PCR) Not detected (NOT DETECT) 05/26/24 19:13 Coronavirus 229E (PCR) Not detected (NOT DETECT) 05/26/24 19:13 Human Metapneumovir PCR Not detected (NOT DETECT) 05/26/24 19:13 Influenza A (H1) PCR Not detected (NOT DETECT) 05/26/24 19:13 Influ A (H1/09) PCR Not detected (NOT DETECT) 05/26/24 19:13 Influenza A (H3) PCR Not detected (NOT DETECT) 05/26/24 19:13 Influenza Type A (PCR) Not detected (NOT DETECT) 05/26/24 19:13 Influenza Type B (PCR) Not detected (NOT DETECT) 05/26/24 19:13 M. pneumoniae (PCR) Not detected (NOT DETECT) 05/26/24 19:13 Parainfluenza 1 (PCR) Not detected (NOT DETECT) 05/26/24 19:13 Parainfluenza 2 (PCR) Not detected (NOT DETECT) 05/26/24 19:13 Parainfluenza 3 (PCR) Not detected (NOT DETECT) 05/26/24 19:13 Parainfluenza 4 (PCR) Not detected (NOT DETECT) 05/26/24 19:13 RSV Type A (PCR) Not detected (NOT DETECT) 05/26/24 19:13 RSV Type B (PCR) Not detected (NOT DETECT) 05/26/24 19:13 Entero/Rhino (PCR) Not detected (NOT DETECT) 05/26/24 19:13 SARS-CoV-2 (PCR) Not detected (NOT DETECT) 05/26/24 19:13 Vitals Last Vital Signs Temp 98.1 F 05/28/24 09:00 Pulse 70 05/28/24 11:00 Resp 20 H 05/28/24 11:00 BP 146/72 05/28/24 12:00 Pulse Ox 90 05/28/24 11:00 O2 Del Method Nasal Cannula 05/28/24 09:57 O2 Flow Rate 4 05/28/24 09:57 FiO2 40 05/27/24 10:49 Discharge Plan Discharge Patient Disposition: Home Condition: Stable Prescriptions: Continued gabapentin 600 mg tablet 600 mg PO BEDTIME ranolazine 500 mg tablet extended release 12 hr 500 mg PO BID Qty: 60 0RF clopidogrel 75 mg tablet 75 mg PO BEDTIME Qty: 90 3RF multivitamin Tablet 1 tab PO BEDTIME tramadol 50 mg tablet 100 mg PO BEDTIME calcium carbonate 500 mg calcium (1,250 mg) Tablet 500 mg PO DAILY nitroglycerin 0.4 mg tablet, sublingual 0.4 mg buccal PRN PRN (Reason: Chest Pain) insulin degludec [Tresiba FlexTouch U-200] 200 unit/mL (3 mL) insulin pen 27 unit SUBCUT DAILY isosorbide mononitrate 30 mg tablet extended release 24 hr 30 mg PO DAILY aspirin 81 mg Tablet,Delayed Release (Dr/Ec) 81 mg PO DAILY 30 Days Qty: 30 0RF Changed atorvastatin 40 mg tablet 80 mg PO BEDTIME Qty: 90 3RF furosemide 40 mg tablet 40 mg PO BID@0800,1400 30 Days Qty: 60 0RF potassium chloride [Klor-Con M20] 20 mEq tablet,ER particles/crystals 20 meq PO BID 30 Days Qty: 30 3RF Discharge Orders: Discharge Order (Routine); Ordered 05/28/24 Ordered By: Eric Cooper Referrals: Antonio Delgado MD [Primary Care Provider] - Discharge Diet: Cardiac, Diabetic and Low Salt Discharge Activity: Increase activity as tolerated and As per PT/OT instructions Activity Restrictions/Additional Instructions: Weight yourself daily. If gain 2 pounds or more in 24 hours double the dose of your Lasix further until you lose the weight. Call your doctor if you cannot lose weight or if you get more short of breath or other symptoms. Discharge Attestations Time Spent in Discharge Care*: greater than 30 min Status at Discharge: Cognitive status at discharge: cognitively intact, Behavioral status at discharge: cooperative, Quality Metrics Clinical Quality Measures [ No reported AMI, CVA or VTE this stay] Coding Level of Care Code Acute Code for [facility] Diagnoses Non-STEMI (non-ST elevated myocardial infarction) I21.4 Chronic systolic congestive heart failure I50.22 Heart failure type: systolic Heart failure chronicity: chronic Acute on chronic diastolic CHF (congestive heart failure) I50.33
--- NOTE | 2024-05-28 13:38 | PC.NURSE ---
Patient received discharge orders. All IVs removed. All follow up appointments made. Patient exited to ER exit via w/c with staff and son. Helped patient into sons vehicle. All patient belongings sent with patient. All discharge educations and instructions explained to patient and son, who verbalized understanding. No further questions at this time. Patient discharged at 1320.
== END 2024-05-28 13:20 | disposition home health service (06) | DRG 280 ==
LOC: ER 22:23 → ICU 22:35
PROVIDERS: Admitting Provider Internal Medicine; Emergency Provider Emergency Medicine; PCP Family Medicine; Visit Provider Internal Medicine
DX: I13.0 Hypertensive heart and chronic kidney disease with heart failure and stage 1 through stage 4 chronic kidney disease, or unspecified chronic kidney disease (principal); I50.33 Acute on chronic diastolic (congestive) heart failure; I21.A1 Myocardial infarction type 2; J96.21 Acute and chronic respiratory failure with hypoxia; J96.22 Acute and chronic respiratory failure with hypercapnia; R65.20 Severe sepsis without septic shock; E87.20 Acidosis, unspecified; N17.9 Acute kidney failure, unspecified; I25.10 Atherosclerotic heart disease of native coronary artery without angina pectoris; E11.22 Type 2 diabetes mellitus with diabetic chronic kidney disease; N18.9 Chronic kidney disease, unspecified; E11.65 Type 2 diabetes mellitus with hyperglycemia; E78.5 Hyperlipidemia, unspecified; Z95.1 Presence of aortocoronary bypass graft; Z99.81 Dependence on supplemental oxygen; Z87.891 Personal history of nicotine dependence; I25.2 Old myocardial infarction; Z79.82 Long term (current) use of aspirin; Z79.02 Long term (current) use of antithrombotics/antiplatelets; Z79.4 Long term (current) use of insulin
CPT/HCPCS: 36415; 36416; 36592; 36600; 51702; 70450; 71045; 71275; 80048; 80053; 82803; 82805; 82962; 83036; 83605; 83735; 83880; 84100; 84145; 84439; 84443; 84484; 85025; 85378; 86140; 87040; 87070; 87077; 87150; 87186; 87205; 87486; 87581; 87633; 92523; 92610; 93005; 93308; 93926; 93970; 94002; 94003; 94664; 94799; 96365; 96366; 96367; 96372; 96374; 96375; 96376; 99291; J0696; J1650; J1940; J2250; J2405; J2470; J2543; J2704; J3010; J7030; J7799

== ENCOUNTER 2024-06-07 14:50 | Inpatient (IN) | payer MEDICARE, SELFPAY ==
[2024-06-07] VITALS (13 sets, daily range): BP systolic 114–152; BP diastolic 54–83; PULSE 73–100; RESP 16–33; TEMP 36.3–37.4; O2SAT 91–99
--- NOTE | 2024-06-07 14:53 | XR_ITS ---
WS: [id number] Portable AP upright chest, 06/07/2024 Clinical Data: sob Comparison: Portable chest, 05/26/2024 Findings: The endotracheal tube, nasogastric tube and right internal jugular venous catheter have bee n removed. Basilar opacities are present in both lungs which may represent atelectasis and/or pneumon ia. There is a right pleural effusion. The heart is enlarged. Midline sternotomy sutures are present. The aortic arch and descending thoracic aorta show calcification and tortuosity. There are old left fourth, fifth and sixth rib fractures in the posterior lateral aspect. 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 Monitor leads are on the chest wall. XR/XR chest 1V portable [id number] Impression: 1. Basilar pulmonary opacities which may represent pneumonia, effusion and/or a telectasis. 2. Cardiomegaly and atherosclerosis.
--- NOTE | 2024-06-07 14:57 | ED_ITS ---
HPI - SOB/Dyspnea 2 General: Chief Complaint: Shortness of Breath/Dyspnea Stated Complaint: SOB Time Seen by Provider: 06/07/24 14:50 History of Present Illness: HPI Narrative: 84-year-old female presents with shortne ss of breath. Patient has a history of COPD and is normally on 2 L home oxygen. Patient was brought in via EMS after they were called due to her having shortness of breath. Patient received a DuoNeb then 2 additional albuterol's and Solu-Medrol in route. Patient is feeling significantly better. Patient had reported diffuse decreased breath sounds and wheezing. No reports of fever. Associated symptoms: Deny abdominal pain, chest pain or fever(s) Related Data Home Medications Medication Instructions Recorded Confirmed tramadol 50 mg tablet 50 mg PO BEDTIME 08/29/23 06/07/24 insulin degludec 200 unit/mL (3 30 unit SUBCUT DAILY 04/10/24 06/07/24 mL) subcutaneous pen (Tresiba FlexTouch U-200 insulin) nitroglycerin 0.4 mg sublingual 0.4 mg buccal PRN PRN Chest Pain 04/10/24 06/07/24 tablet isosorbide mononitrate 60 mg 60 mg PO DAILY 06/07/24 06/07/24 tablet,extended release 24 hr Previous Rx's Medication Instructions Recorded aspirin 81 mg tablet,delayed 81 mg PO DAILY 30 days #30 tabs 12/25/23 release clopidogrel 75 mg tablet 75 mg PO BEDTIME #90 tabs 03/27/24 ranolazine 500 mg tablet,extended 500 mg PO BID #60 tabs 03/27/24 release,12 hr atorvastatin 40 mg tablet 80 mg (2 x 40 mg) PO BEDTIME #90 05/28/24 tabs furosemide 40 mg tablet 40 mg PO BID@0800,1400 30 days #60 05/28/24 tabs potassium chloride 20 mEq 20 meq PO BID 30 days #30 tabs 05/28/24 tablet,extended release(part/cryst) (Klor-Con M) Allergies Allergy/AdvReac Type Severity Reaction Status Date / Time No Known Allergies Allergy Verified 03/27/24 13:49 Review of Systems 2 Const: Denies: fever(s) Card: Denies: chest pain Resp: Reports: dyspnea, non-productive cough and wheezing GI: Denies: abdominal pain PFSH ED 2 PFSH: Medical History CHF (congestive heart failure) Acute kidney injury superimposed on chronic kidney disease Acute respiratory failure with hypoxia and hypercapnia Respiratory arrest Non-STEMI (non-ST elevated myocardial infarction) Coronary artery disease NSTEMI (non-ST elevated myocardial infarction) Hyperglycemia Hyperkalemia Elevated brain natriuretic peptide (BNP) level Hyperglycemia Hypoxic respiratory failure Dyslipidemia Contrast-induced nephropathy Type 2 diabetes mellitus without complications CAD (coronary artery disease) Acute [place] Essential (primary) hypertension Surgical History Hx of hysterectomy Hx of CABG Family History Unknown No problems noted. Social History Smoking and tobacco/nicotine status: former use of tobacco/nicotine Alcohol intake: never Substance/Drug Use: never Course 2 Vital Signs: Vital signs: Vital Signs Temperature 99.3 F 06/07/24 14:51 Pulse Rate 75 06/07/24 18:38 Respiratory Rate 18 06/07/24 18:38 Blood Pressure 147/65 06/07/24 18:38 Pulse Oximetry 94 06/07/24 18:38 Oxygen Delivery Tn susu Nasal Cannula 06/07/24 17:52 Oxygen Flow Rate 2 06/07/24 17:52 MDM - SOB/Dyspnea Medical Decision Making Patient's diagnostic studies are reviewed and interpreted by me. Patient has a slight elevation of her white count and slight decrease in her hemoglobin. Patient's x-ray is concerning for early pneumonia. Patient did have significant hypoxia for EMS when they initially presented has some mild wheezing still. Patient to be admitted to Dr. Steward for further inpatient management due to likely pneumonia. Patient was stable upon transfer. Lab Data 06/07/24 15:13 06/07/24 15:13 Labs/Radiology: Radiology Impressions Chest X-Ray 06/07/24 14:53 Impression: 1. Basilar pulmonary opacities which may represent pneumonia, effusion and/or atelectasis. 2. Cardiomegaly and atherosclerosis. Chest CT 06/07/24 16:52 IMPRESSION: 1. Moderate right and small left pleural effusions. 2. Sternotomy wires and CABG changes. 3. Mild cardiomegaly. 4. Small hiatal hernia. 5. Cholelithiasis partially visualized. 6. Emphysematous changes. 7. Patchy bilateral largely lower lobe airspace infiltrates. 8. Multilevel productive degenerative changes throughout the spine. 9. Scattered prominent mediastinal lymph nodes measuring 4 mm, nonspecific. Laboratory Results WBC 13.45 10^3/uL (3.29-11.43) H 06/07/24 15:13 RBC 4.08 10^6/uL (3.85-5.65) 06/07/24 15:13 Hgb 10.80 g/dL (11.27-16.99) L 06/07/24 15:13 Hct 35.3 % (36-47) L 06/07/24 15:13 MCV 86.5 fl (85-98) 06/07/24 15:13 MCH 26.5 pg (27-33) L 06/07/24 15:13 MCHC 30.6 g/dL (30-55) 06/07/24 15:13 RDW 13.4 % (12.1-15.1) 06/07/24 15:13 Plt Count 337 10^3/cmm (157-399) 06/07/24 15:13 MPV 11.0 fL (7.4-10.4) H 06/07/24 15:13 Neut % (Auto) 84.0 % 06/07/24 15:13 Lymph % (Auto) 8.9 % 06/07/24 15:13 [place] % (Auto) 5.9 % 06/07/24 15:13 Eos % (Auto) 0.7 % 06/07/24 15:13 Baso % (Auto) 0.1 % 06/07/24 15:13 Neut # (Auto) 11.28 10^3/uL (1.8-7.7) H 06/07/24 15:13 Lymph # (Auto) 1.2 10^3/uL (0.8-4.8) 06/07/24 15:13 [place] # (Auto) 0.8 10^3/uL (0.2-0.9) 06/07/24 15:13 Eos # (Auto) 0.1 10^3/uL (0.0-0.8) 06/07/24 15:13 Baso # (Auto) 0.0 10^3/uL (0.0-0.1) 06/07/24 15:13 Nucleated RBC % (auto) 0 % 06/07/24 15:13 Nucleated RBCs # 0.0 /100WBC 06/07/24 15:13 ESR 29 mm/hr (0-15) H 06/07/24 15:13 Specimen Type Arterial 06/07/24 17:41 Sample Site Radial, left 06/07/24 17:41 ABG pH 7.39 (7.35-7.45) 06/07/24 17:41 ABG pCO2 46.6 mmHg (35-45) H 06/07/24 17:41 ABG pO2 68.5 mmHg (80.0-100.0) L 06/07/24 17:41 ABG PO2/FiO2 Ratio 244 06/07/24 17:41 ABG HCO3 28.0 mmol/L (22-26) H 06/07/24 17:41 ABG Base Excess 2.5 mmol/L (-2.0-2.0) H 06/07/24 17:41 Tanner Test Pos 06/07/24 17:41 Hematocrit 32.2 % (37-47) L 06/07/24 17:41 O2 Delivery Device Nc 06/07/24 17:41 O2 Liters/Min 2.0 % 06/07/24 17:41 FiO2 28.0 % 06/07/24 17:41 Butting Saw Operator ID Cak 06/07/24 17:41 Sodium 138 mmol/L (136-145) 06/07/24 15:13 Potassium 4.7 mmol/L (3.5-5.1) 06/07/24 15:13 Chloride 100 mmol/L (98-107) 06/07/24 15:13 Carbon Dioxide 28 mmol/L (22-29) 06/07/24 15:13 Anion Gap 14.7 (5-19) 06/07/24 15:13 BUN 23 mg/dL (8-23) 06/07/24 15:13 Creatinine 0.9 mg/dL (0.5-0.9) 06/07/24 15:13 GFR Calculation Not Reportable 06/07/24 15:13 Glucose 246 mg/dL (65-115) H 06/07/24 15:13 Calculated Osmolality 298 mOsm/kg (285-295) H 06/07/24 15:13 Lactic Acid 2.1 mmol/L (0.5-2.2) 06/07/24 15:13 Lactic Acid (Sepsis) 2.0 mmol/L (0.5-2.2) 06/07/24 18:36 Calcium 9.1 mg/dL (8.5-10.5) 06/07/24 15:13 Total Bilirubin 0.2 mg/dL (0.15-1.2) 06/07/24 15:13 AST 14 U/L (0-32) 06/07/24 15:13 ALT 11 U/L (0-33) 06/07/24 15:13 Alkaline Phosphatase 117 U/L (35-105) H 06/07/24 15:13 Troponin T Baseline 88 ng/L (0-10) H 06/07/24 15:13 Troponin T 120 Minute 77.09 ng/L (0-10) H 06/07/24 17:14 Delta Troponin T -10.91 ABS# (0-10) L 06/07/24 17:14 C-Reactive Protein 15.3 mg/L (0.0-4.9) H 06/07/24 15:13 NT-Pro-B Natriuret Pep 6632 pg/mL (0-450) H 06/07/24 15:13 Total Protein 7.3 g/dL (6.6-8.7) 06/07/24 15:13 Albumin 3.6 g/dL (3.5-5.2) 06/07/24 15:13 Globulin 3.7 g/dL (1.3-4.6) 06/07/24 15:13 Procalcitonin 0.03 ng/mL (0-0.5) 06/07/24 15:13 Coronavirus (PCR) Negative (Negative) 06/07/24 15:13 Influenza A (PCR) Negative (Negative) 06/07/24 15:13 Influenza Type B (PCR) Negative (Negative) 06/07/24 15:13 RSV (PCR) Negative (Negative) 06/07/24 15:13 All radiology interpretation(s) finalized by discharge Discharge Plan Discharge Admit Provider: Willem Steward Condition: Stable Coding Level of Care Code ED Vaccine Customer Representative for Chg Fwd
[2024-06-07 15:20] LABS: Basophils % 0.1 %; Eosinophils # 0.1 10^3/uL (0.0-0.8); Eosinophils % 0.7 %; Hematocrit 35.3 % (36-47); Lymphocytes # 1.2 10^3/uL (0.8-4.8); Lymphocytes % 8.9 %; Mean Corpuscular HGB Conc 30.6 g/dL (30-55); Mean Corpuscular Hemoglobin 26.5 pg (27-33); Mean Corpuscular Volume 86.5 fl (85-98); Monocytes # 0.8 10^3/uL (0.2-0.9); Monocytes % 5.9 %; Neutrophils # 11.28 10^3/uL (1.8-7.7); Nucleated Red Blood Cells % 0 %; Platelet Count 337 10^3/cmm (157-399); Red Blood Count 4.08 10^6/uL (3.85-5.65); Red Cell Distribution Width 13.4 % (12.1-15.1); White Blood Count 13.45 10^3/uL (3.29-11.43)
[2024-06-07 15:43] LABS: Alanine Aminotransferase 11 U/L (0-33); Albumin Level 3.6 g/dL (3.5-5.2); Alkaline Phosphatase 117 U/L (35-105); Anion Gap 14.7 (5-19); Aspartate Amino Transferase 14 U/L (0-32); Blood Urea Nitrogen 23 mg/dL (8-23); Calcium 9.1 mg/dL (8.5-10.5); Carbon Dioxide 28 mmol/L (22-29); Chloride 100 mmol/L (98-107); Globulin 3.7 g/dL (1.3-4.6); Glucose 246 mg/dL (65-115); Osmolality Calculated 298 mOsm/kg (285-295); Potassium 4.7 mmol/L (3.5-5.1); Sodium 138 mmol/L (136-145); Total Bilirubin 0.2 mg/dL (0.15-1.2); Total Protein 7.3 g/dL (6.6-8.7)
[2024-06-07] MEDS: cefTRIAXone 1,000 mg SDV 1000 MG IVP (15:56)
[2024-06-07 15:59] LABS: Covid PCR NEGATIVE (Negative); Influenza A NEGATIVE (Negative); Influenza B NEGATIVE (Negative); Respiratory Syncytial Virus Ce NEGATIVE (Negative)
[2024-06-07] MEDS: AZITHROMYCIN ADD-Vantage 500 MG in 0.9% NaCl ADD-Vantage 250 ML 250 MG IV (16:05)
--- NOTE | 2024-06-07 16:46 | PM.HP ---
Providers/Chief Complaint Primary Care Provider: Antonio Delgado MD Chief Complaint: SOB History of Present Illness Sally Henderson is a 84 year old female with a past medical history of CHF, chronically occluded left circumflex, currently on 3 L, history of respiratory distress/arrest during last hospitalization requiring intubation, subsequently extubated, concerns for CHF, NSTEMI, Streptococcus mitis oralis positive blood culture not discharged on an p.o. antibiotics who presents [facility] for complaints of shortness of breath, productive cough fatigue malaise fevers and chills. Currently patient is alert oriented x 3, following all commands, she has been short of breath since coming back from the hospital increasingly short of breath, with productive cough, fatigue, malaise, increased wheezing. No nausea, no vomiting, no chest pain, palpitations, no lightheadedness, dizziness Review of Systems Const: Reports: fever(s), chills, fatigue and malaise Eyes: Denies: change in vision Card: Denies: chest pain Resp: Reports: dyspnea GI: Denies: abdominal pain : Denies: flank pain Medications/Allergies Home Medications Medication Instructions Recorded Confirmed Last Taken Type tramadol 50 mg tablet 50 mg PO BEDTIME 08/29/23 06/07/24 06/06/24 History aspirin 81 mg tablet,delayed 81 mg PO DAILY 30 days #30 tabs 12/25/23 06/07/24 06/07/24 Rx release clopidogrel 75 mg tablet 75 mg PO BEDTIME #90 tabs 03/27/24 06/07/24 06/06/24 Rx ranolazine 500 mg tablet,extended 500 mg PO BID #60 tabs 03/27/24 06/07/24 06/07/24 Rx release,12 hr insulin degludec 200 unit/mL (3 30 unit SUBCUT DAILY 04/10/24 06/07/24 06/07/24 History mL) subcutaneous pen (Tresiba FlexTouch U-200 insulin) nitroglycerin 0.4 mg sublingual 0.4 mg buccal PRN PRN Chest Pain 04/10/24 06/07/24 Unknown History tablet atorvastatin 40 mg tablet 80 mg (2 x 40 mg) PO BEDTIME #90 05/28/24 06/07/24 06/07/24 Rx tabs furosemide 40 mg tablet 40 mg PO BID@0800,1400 30 days #60 05/28/24 06/07/24 06/07/24 Rx tabs potassium chloride 20 mEq 20 meq PO BID 30 days #30 tabs 05/28/24 06/07/24 06/07/24 Rx tablet,extended release(part/cryst) (Klor-Con M) isosorbide mononitrate 60 mg 60 mg PO DAILY 06/07/24 06/07/24 06/07/24 History tablet,extended release 24 hr Allergies Allergy/AdvReac Type Severity Reaction Status Date / Time No Known Allergies Allergy Verified 03/27/24 13:49 PFSH Acute PFSH: Medical History CHF (congestive heart failure) Acute kidney injury superimposed on chronic kidney disease Acute respiratory failure with hypoxia and hypercapnia Respiratory arrest Non-STEMI (non-ST elevated myocardial infarction) Coronary artery disease NSTEMI (non-ST elevated myocardial infarction) Hyperglycemia Hyperkalemia Elevated brain natriuretic peptide (BNP) level Hyperglycemia Hypoxic respiratory failure Dyslipidemia Contrast-induced nephropathy Type 2 diabetes mellitus without complications CAD (coronary artery disease) Acute [place] Essential (primary) hypertension Surgical History Hx of hysterectomy Hx of CABG Family History Unknown No problems noted. Social History Smoking and tobacco/nicotine status: former use of tobacco/nicotine Alcohol intake: never Substance/Drug Use: never Vitals/I&O/Wt Last Vital Signs Temp 99.3 F 06/07/24 14:51 Pulse 82 06/07/24 16:33 Resp 16 06/07/24 16:33 BP 146/83 06/07/24 15:04 Pulse Ox 96 06/07/24 16:33 O2 Del Method Nasal Cannula 06/07/24 14:51 O2 Flow Rate 2 06/07/24 14:51 Weight last 48 hrs Weight 72.575 kg Physical Exam Const: COMMON NORMALS: no acute distress and patient oriented x3 HENMT: COMMON NORMALS: normocephalic HEAD & SCALP: normocephalic Eye: COMMON NORMALS: Equal, round and reactive pupils present and EOMs intact bilaterally Neck/C-Spine: COMMON NORMALS: no JVD Lymph: LYMPHATIC: no lymphadenopathy noted Resp: OTHER: Wheezing and crackles in all lung matta, tachypnea, nasal flaring, suprasternal retractions, intercostal retractions,, mild respiratory distress Cardio: COMMON NORMALS: no JVD, regular rate, regular rhythm, S1 normal heart sound present and S2 normal heart sound present RATE: regular rate RHYTHM: regular rhythm HEART SOUNDS: S1 normal heart sound present and S2 normal heart sound present GI: COMMON NORMALS: Normal to inspection, nondistended, normoactive bowel sounds present, Soft to palpation and non-tender Extremity: COMMON NORMALS: no pedal edema Neuro: COMMON NORMALS: patient oriented x3, CN's II-XII intact bilaterally and moves all extremities Psych: COMMON NORMALS: mental status grossly normal Sepsis: Is patient septic: Yes Focused sepsis exam performed: Yes Focused sepsis exam: DP PT pulses palpable, diminished on the left, cap refill greater than 2 seconds, no mottling Date exam was performed: 06/07/24 Time exam was performed: 17:14 Data 06/07/24 15:13 06/07/24 15:13 A&P Assessment and plan (1) Acute hypoxic respiratory failure: (2) Healthcare-associated pneumonia: (3) Bacteremia due to Streptococcus: (4) Acute on chronic diastolic CHF (congestive heart failure): (5) Sepsis: Plan Acute hypoxic respiratory failure -Will mild respiratory distress -With sepsis -Secondary to healthcare associate pneumonia -Bacteremia secondary to Streptococcus mitis oralis -Acute systolic CHF exacerbation plan -Monitor respiratory status closely -Broad-spectrum antibiotic therapy to cover healthcare associate pneumonia -Vancomycin -Cefepime -Levaquin -Monitor respiratory status closely -Sputum culture -Blood cultures -CRP, Pro-Juan, BMP -Troponin series -CT chest -Serial EKGs, troponins, telemetry -Lasix 40 IV twice daily for CHF -Monitor urine output, monitor creatinine -Full code -Lovenox for DVT prophylaxis Streptococcus oralis bacteremia -Likely from aspiration -Repeat blood cultures ordered -Continue cefepime History of CAD -No chest pain complaints -Serial EKGs, serial troponins, telemetry monitoring Peripheral arterial disease, Doppler bilateral lower extremity pulses , sepsis features met given acute respiratory distress, leukocytosis, pneumonia, Attestations Medical Necessity Statement*: Patient requires hospitalization, inpatient, greater than 2 midnights, for sepsis secondary to pneumonia healthcare associate, CHF pneumonia Streptococcus oralis bacteremia, CHF exacerbation, acute respiratory failure, inpatient, greater than 2 midnights Diagnoses Acute hypoxic respiratory failure J96.01 Healthcare-associated pneumonia J18.9 Bacteremia due to Streptococcus R78.81; B95.5 Acute on chronic diastolic CHF (congestive heart failure) I50.33 Sepsis A41.9
--- NOTE | 2024-06-07 16:52 | CTR_ITS ---
PROCEDURE INFORMATION: Exam: CT Chest Without Contrast; Diagnostic Exam date and time: 06/07/2024 5:20 PM Age: 84 years old Clinical indication: Shortness of breath; Additional info: SOB TECHNIQUE: Imaging protocol: Diagnostic computed tomography of the chest without contrast. Radiation optimization: All CT scans at this facility use at least one of these dose optimization techniques: automated exposure control; mA and/or kV adjustment per patient size (includes targeted exams where dose is matched to clinical indication); or iterative reconstruction. COMPARISON: CT angio chest PE protcl [id number] 05/26/2024 11:03 PM RADIATION DOSE METRICS: Total DLP (mGy-cm): 508.73 FINDINGS: Lungs: Emphysematous changes. Patchy bilateral largely lower lobe airspace infiltrates. Pleural spaces: Moderate right and small left pleural effusions. Heart: Mild cardiomegaly. Lymph nodes: Scattered prominent mediastinal lymph nodes measuring 4 mm, nonspecific. Vasculature: Unremarkable. No aortic aneurysm. Diaphragm: Small hiatal hernia. Gallbladder and biliary ducts: Cholelithiasis partially visualized. Bones/joints: Sternotomy wires and CABG changes. Multilevel productive degenerative changes throughout the spine. Multiple chronic healed left rib fractures. Soft tissues: Unremarkable. CT/CT chest wo con [id number] IMPRESSION: 1. Moderate right and small left pleural effusions. 2. Sternotomy wires and CABG changes. 3. Mild cardiomegaly. 4. Small hiatal hernia. 5. Cholelithiasis partially visualized. 6. Emphysematous changes. 7. Patchy bilateral largely lower lobe airspace infiltrates. 8. Multilevel productive degenerative changes throughout the spine. 9. Scattered prominent mediastinal lymph nodes measuring 4 mm, nonspecific.
[2024-06-07 17:11] LABS: Erythrocyte Sedimentation Rate 29 mm/hr (0-15)
[2024-06-07 17:17] LABS: Troponin(5th) Baseline 88 ng/L (0-10)
[2024-06-07 17:24] LABS: Lactic Sepsis W/Reflex 2.1 mmol/L (0.5-2.2)
[2024-06-07 17:28] LABS: NT Pro B Type Natriuretic Pept 6632 pg/mL (0-450); Procalcitonin 0.03 ng/mL (0-0.5)
[2024-06-07 17:38] LABS: C Reactive Protein 15.3 mg/L (0.0-4.9)
[2024-06-07 17:52] LABS: ABG PCO2 46.6 mmHg (35-45); ABG PH Result 7.39 (7.35-7.45); Arterial Blood Gas Hematocrit 32.2 % (37-47); Base Excess ABG 2.5 mmol/L (-2.0-2.0); Blood Gas Allen Test Pos; Blood Gas Operator Identificat CAK; Blood Gas Sample Site Radial, left; Blood Gas Sample Type Arterial; Oxygen Device NC; PO2 ABG 68.5 mmHg (80.0-100.0); PO2 FiO2 Ratio Arterial Blood 244
[2024-06-07] MEDS: ipratropium-albuterol 3 mL Neb INHALATION (17:56)
[2024-06-07 18:00] LABS: Troponin 5 2HR 77.09 ng/L (0-10)
[2024-06-07 18:01] LABS: Troponin 5 2HR Delta -10.91 ABS# (0-10)
--- NOTE | 2024-06-07 18:06 | ECG_ITS ---
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 Measurements Intervals [place] Rate: 84 P: 48 MD: 156 QRS: -26 QRSD: 114 T: 154 QT: 361 QTc: 427 Interpretive Statements SINUS RHYTHM POSSIBLE LEFT ATRIAL ENLARGEMENT [-0.1mV P-WAVE IN V1/V2] BORDERLINE LEFT AXIS DEVIATION [QRS AXIS < -20] LOW QRS VOLTAGE IN PRECORDIAL LEADS [QRS DEFLECTION < 1.0 mV IN CHEST LEADS] PATTERN CONSISTENT WITH PULMONARY DISEASE MODERATE INTRAVENTRICULAR CONDUCTION DELAY [110+ ms QRS DURATION] ST DEVIATION AND MODERATE T-WAVE ABNORMALITY, CONSIDER LATERAL ISCHEMIA [-0.1+ mV T-WAVE IN I/aVL/V5/V6] Compared to ECG 05/27/2024 00:43:00 Low QRS voltage now present Possible ischemia still present Electronically Signed On 06-08-2024 23:06:43 HRIS ADMINISTRATOR by Boaz Jaramillo M.D. [email or web address]
[2024-06-07 18:19] LABS: Reflex Lactate Order REFLEX LACTIC ORDERD
[2024-06-07] MEDS: metOLazone 5 MG Tablet PO (18:34)
--- NOTE | 2024-06-07 18:54 | PC.NURSE ---
Assumed care from Alicia GAINES at shift change.
--- NOTE | 2024-06-07 19:30 | PC.NURSE ---
Report called to Clotilde GAINES on Med-Surg. All questions and concerns were addressed at time of report.
--- NOTE | 2024-06-07 19:52 | PHA.VACGOAL ---
Vancomycin Goal - Goal Vancomycin Goal:: 15-20 mg/L Vancomycin Indication:: Pneumonia - Therapy Day of therpy:: Day []of [] . Actual body weight (kg): 160 lb - Data Labs: WBC 13.45 10^3/uL (3.29-11.43) H 06/07/24 15:13 RBC 4.08 10^6/uL (3.85-5.65) 06/07/24 15:13 Hgb 10.80 g/dL (11.27-16.99) L 06/07/24 15:13 Hct 35.3 % (36-47) L 06/07/24 15:13 MCV 86.5 fl (85-98) 06/07/24 15:13 MCH 26.5 pg (27-33) L 06/07/24 15:13 MCHC 30.6 g/dL (30-55) 06/07/24 15:13 RDW 13.4 % (12.1-15.1) 06/07/24 15:13 Sodium 138 mmol/L (136-145) 06/07/24 15:13 Potassium 4.7 mmol/L (3.5-5.1) 06/07/24 15:13 Chloride 100 mmol/L (98-107) 06/07/24 15:13 Carbon Dioxide 28 mmol/L (22-29) 06/07/24 15:13 Anion Gap 14.7 (5-19) 06/07/24 15:13 BUN 23 mg/dL (8-23) 06/07/24 15:13 Creatinine 0.9 mg/dL (0.5-0.9) 06/07/24 15:13 GFR Calculation Not Reportable 06/07/24 15:13 Treatment plan:: new consult Regimen:: 2000 MG LOAD 1000MG Q24H MAINTENANCE MONITOR DAILY
[2024-06-07 20:03] LABS: Thyroid Stimulating Hormone 1.76 uIU/mL (0.27-4.20)
[2024-06-07] MEDS: clopidogrel 75 mg Tablet PO (20:33)
[2024-06-07] MEDS: ranolazine (12HR) 500 mg Tablet PO (20:33)
[2024-06-07] MEDS: atorvastatin 40 mg Tablet 80 MG PO (20:33)
[2024-06-07] MEDS: TRAMadol 50 mg Tablet PO (20:33)
[2024-06-07] MEDS: potassium chloride ER 20 mEq Tablet PO (20:34)
[2024-06-07] MEDS: pantoprazole 40 mg SDV IVP (20:34)
[2024-06-07] MEDS: enoxaparin 40 mg/0.4 mL Syringe SUBCUT (20:34)
[2024-06-07] MEDS: FUROsemide 10 mg/mL SDV 4mL 40 MG IVP (20:35)
[2024-06-07] MEDS: vancomycin 2,000 MG/400 ML PIGGYBACK 200 MG IV (20:35)
[2024-06-07 20:51] LABS: Glucose Point of Care 309 mg/dL (70-110)
[2024-06-07] MEDS: insulin lispro 100 unit/1 mL SUBCUT (21:19)
[2024-06-07 21:57] LABS: Bilirubin Urine Negative (Negative); Blood Urine Negative (Negative); Glucose Urine UA 1+ (Normal); Ketones Urine Negative (Negative); Leukocyte Esterase Urine Negative (Negative); Nitrate Urine Negative (Negative); Protein Urine Negative (Negative); Specific Gravity, Urine 1.009 (1.005-1.030); Urine Appearance Clear (CLEAR); Urine Color Yellow (Yellow); Urobilinogen Urine 0.2 mg/dL (Negative)
[2024-06-07 22:02] LABS: Add Urine Microscopic? YES; Bacteria Urine None Seen /hpf; Hyaline Casts Urine 0-4 /lpf; RBC Urine 0-2 /hpf (0-2); Squamous Epithelial Cell Urine 0-5 /hpf (0-5); WBC Urine 0-5 /hpf (0-5)
--- NOTE | 2024-06-07 22:07 | PC.NURSE ---
There is an order for doppler to be left at bedside, however there is currently no doppler to be found on the unit.
[2024-06-07 22:21] LABS: Troponin 5 6HR 68.94 ng/L (0-10)
[2024-06-07 22:25] LABS: Troponin 5 6HR Delta -19.06 ng/L (0-12)
[2024-06-07] MEDS: haloperidol inj 5 mg/mL INJ 1 mL IVP (23:20)
[2024-06-07] MEDS: levofloxacin-dextrose 5 % 750 MG/150 ML PREMIX 100 MG IV (23:21)
[2024-06-08] VITALS (16 sets, daily range): BP systolic 123–154; BP diastolic 58–78; PULSE 63–68; RESP 16–20; TEMP 36.4–36.8; O2SAT 93–99
--- NOTE | 2024-06-08 01:39 | PC.NURSE ---
Upon initial assessment of patient, patient on 2 liters of oxygen with oxygen saturation of 92 percent, however patient was short of breath, anxious, and had labored breathing. Patient was working very hard to breath. Patient was getting up to bedside commode frequently due to receiving Lasix, which was making her even more short of breath. I also was unable to measure urinary output due to patient often voiding in bed or on floor before she could make it to the commode. Orders received from Dr. Gómez: Bipap, gurrola, and Haldol x1.
[2024-06-08 04:34] LABS: ABG PCO2 31.7 mmHg (35-45); ABG PH Result 7.56 (7.35-7.45); Arterial Blood Gas Hematocrit 33.9 % (37-47); Base Excess ABG 5.9 mmol/L (-2.0-2.0); Blood Gas Allen Test Pos; Blood Gas Sample Site Brachial, right; Blood Gas Sample Type Arterial; Carboxyhemoglobin 0.9 %THgb (0.4-20.1); HCO3 ABG 28.1 mmol/L (22-26); HGB O2 Sat 98.1 % (95-100); Methemoglobin 1.1 % (0.4-1.5); Oxygen Device NC; Oxygen Saturation ABG > 99.1; Potassium Level - ABG 4.4 mmol/L (3.5-5.0); Total Hemoglobin 11.1 g/dL (12-16)
[2024-06-08] MEDS: cefepime 2,000 mg SDV 2000 MG IVP (05:10)
[2024-06-08 05:59] LABS: Basophils % 0.1 %; Hematocrit 33.1 % (36-47); Lymphocytes # 0.4 10^3/uL (0.8-4.8); Lymphocytes % 2.9 %; Mean Corpuscular HGB Conc 31.1 g/dL (30-55); Mean Corpuscular Hemoglobin 26.6 pg (27-33); Mean Corpuscular Volume 85.5 fl (85-98); Mean Platelet Volume 11.4 fL (7.4-10.4); Monocytes # 0.5 10^3/uL (0.2-0.9); Monocytes % 3.4 %; Neutrophils # 13.39 10^3/uL (1.8-7.7); Neutrophils % 93.1 %; Nucleated Red Blood Cells % 0 %; Platelet Count 311 10^3/cmm (157-399); Red Blood Count 3.87 10^6/uL (3.85-5.65); Red Cell Distribution Width 13.6 % (12.1-15.1); White Blood Count 14.38 10^3/uL (3.29-11.43)
[2024-06-08 06:23] LABS: Anion Gap 14.5 (5-19); Blood Urea Nitrogen 24 mg/dL (8-23); Calcium 9.1 mg/dL (8.5-10.5); Carbon Dioxide 29 mmol/L (22-29); Chloride 97 mmol/L (98-107); Glucose 264 mg/dL (65-115); Osmolality Calculated 295 mOsm/kg (285-295); Phosphorus 2.7 mg/dL (2.5-4.5); Potassium 4.5 mmol/L (3.5-5.1); Sodium 136 mmol/L (136-145)
[2024-06-08 06:25] LABS: Creatinine Clr Calc Pharmacy 40.2973
[2024-06-08 06:39] LABS: Glucose Point of Care 260 mg/dL (70-110)
[2024-06-08] MEDS: aspirin 81 mg EC Tablet PO (08:55)
[2024-06-08] MEDS: potassium chloride ER 20 mEq Tablet PO ×4 (08:55→17:56)
[2024-06-08] MEDS: isosorbide mononitrate ER 60 mg Tablet PO (08:55)
[2024-06-08] MEDS: FUROsemide 10 mg/mL SDV 4mL 40 MG IVP ×2 (08:56→20:26)
[2024-06-08] MEDS: insulin lispro 100 unit/1 mL SUBCUT ×3 (08:56→17:56)
[2024-06-08] MEDS: ranolazine (12HR) 500 mg Tablet PO ×2 (08:56→17:56)
[2024-06-08] MEDS: metOLazone 5 MG Tablet PO (08:56)
--- NOTE | 2024-06-08 10:19 | PC.CHAP ---
Pastoral Care Encounter/Spiritual Assessment Type of Contact [] Declined machinist instructor visit [] Patient/Family/Request visit [] Outpatient visit [] Follow-up visit [] Physician referral [] Code/Alert [x] Routine visit [] Staff referral [] Actively dying [] Patient sleeping [] Family support [] [] Out of room [] Palliative care [] [] Receiving care in room [] Pre-surgical visit [] Trauma [] Long length of stay [] ICU visit [] Other: Relational/Emotional Strength [x] Patient feels connected with others/family/visitors/staff [x] Distress [] Loneliness/isolation [] Abandonment Spirituality of Patient [x] Person of Mckenna [x] Attends Gnosticist of their [place] [x] Believes in Prayer [x] Reads Bible or Restoration materials [] There are Spiritual issues to be addressed Supervisor [employer] Vault 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 [x] Prayer [x] Active listening [] Non-anxious presence [] Spiritual/emotional support [] Crisis/trauma care [] Spiritual counseling [] Bereavement support [] Provided bereavement packet [] Provided Bible/devotional materials [] Provided toy/stuffed animal, coloring book to patient or family member [] Provided Communion [] Anointing/[place] [] Salvation [] Completed spiritual assessment [] Other: Impact on Illness or Injury [] Angry [] Fearful [x] Anxious [] Often cries [] Exhaustion [] Unable to work [x] Unable to attend zoroastrian [x] Unable to walk/stand [] Unable to read [] Unable to drive [] Unable to eat/drink [] Unable to sleep [] Unable to be with family [] Patient intubated [] Other: Summary Prayer CLS member, Not in good shape. Adding to Power prayer list Time spent with patient 10 min
[2024-06-08 11:56] LABS: Glucose Point of Care 196 mg/dL (70-110)
--- NOTE | 2024-06-08 14:59 | P.PN_ITS ---
Subjective 2 Subjective: Patient was seen this morning, she continues to complain of shortness of breath, she did require BiPAP early this morning and throughout the night, she is currently off of it but she tells me that she feels that she is still short of breath and she will need to put back on the BiPAP, no chest pain, no palpitations Vitals/I&O/Wt Last Vital Signs Temp 98.1 F 06/08/24 11:14 Pulse 63 06/08/24 11:14 Resp 16 06/08/24 11:14 BP 130/62 06/08/24 11:14 Pulse Ox 96 06/08/24 11:14 O2 Del Method Nasal Cannula 06/08/24 11:14 O2 Flow Rate 2 06/08/24 11:14 FiO2 40 06/08/24 09:10 06/07/24 06/08/24 06/08/24 22:59 06:59 14:59 Intake Total 400 / 400 150 / 550 480 / 480 Output Total 2300 / 2300 Balance 400 / 400 -2150 / -1750 480 / 480 Weight last 48 hrs Weight 78.88 kg Weight 80.286 kg Weight 72.575 kg Physical Exam 2 Const: COMMON NORMALS: no acute distress and patient oriented x3 Resp: OTHER: Short of breath with a few words, slight nasal flaring, intercostal retractions, suprasternal retractions, crackles and wheezing in all lung matta, tachypnea Cardio: COMMON NORMALS: regular rate, regular rhythm, S1 normal heart sound present and S2 normal heart sound present RATE: regular rate RHYTHM: r egular rhythm HEART SOUNDS: S1 normal heart sound present and S2 normal heart sound present GI: COMMON NORMALS: Normal to inspection, nondistended, normoactive bowel sounds present and non-tender Extremity: COMMON NORMALS: no pedal edema Neuro: COMMON NORMALS: patient oriented x3 Psych: COMMON NORMALS: mental status grossly normal Urinary Catheter Management: Huff: Cath Placed During This Visit: yes Reason for Continuing Indwelling Catheter: Accurate Measurement of Urinary Output in Critically Ill Patients Urinary Catheter Date of Insertion: 06/07/24 Urinary Catheter Time of Insertion: 23:14 Data 06/08/24 05:31 06/08/24 05:31 Micro: Microbiology 06/07/24 22:14 Blood Culture - Preliminary Blood SPECIMEN COLLECTED 06/07/24 21:33 Blood Culture - Preliminary Blood SPECIMEN COLLECTED A&P Assessment and plan (1) Acute hypoxic respiratory failure: (2) Healthcare-associated pneumonia: (3) Bacteremia due to Streptococcus: (4) Acute on chronic diastolic CHF (congestive heart failure): (5) Sepsis: Plan Acute hypoxic respiratory failure -Will mild respiratory distress -With sepsis -Secondary to healthcare associate pneumonia -Bacteremia secondary to Streptococcus mitis oralis -Acute systolic CHF exacerbation -CT chest CT/CT chest wo con [id number] IMPRESSION: 1. Moderate right and small left pleural effusions. 2. Sternotomy wires and CABG changes. 3. Mild cardiomegaly. 4. Small hiatal hernia. 5. Cholelithiasis partially visualized. 6. Emphysematous changes. 7. Patchy bilateral largely lower lobe airspace infiltrates. 8. Multilevel productive degenerative changes throughout the spine. 9. Scattered prominent mediastinal lymph nodes measuring 4 mm, nonspecific. plan -Monitor respiratory status closely -Requiring BiPAP -Broad-spectrum antibiotic therapy to cover healthcare associate pneumonia -Vancomycin -Cefepime -Levaquin -Monitor respiratory status closely -Sputum culture -Blood cultures -Lasix 40 IV twice daily with metolazone -Serial EKGs, troponins, telemetry -Monitor urine output, monitor creatinine -Full code -Lovenox for DVT prophylaxis Streptococcus oralis bacteremia -Likely from aspiration -Repeat blood cultures ordered -Continue cefepime History of CAD -No chest pain complaints -Serial EKGs, serial troponins, telemetry monitoring NSTEMI, serial EKGs, serial troponins, telemetry monitoring Peripheral arterial disease, Doppler bilateral lower extremity pulses , sepsis features met given acute respiratory distress, leukocytosis, pneumonia, Patient requires hospitalization for acute hypoxic respiratory failure, requiring BiPAP, continue broad-spectrum antibiotic therapy, continue IV diuresis, monitor respiratory status Attestations 2 Medical Necessity Statement*: Patient requires hospitalization for acute hypoxic respiratory failure secondary to CHF, pneumonia, Streptococcus mitis oralis bacteremia, NSTEMI Diagnoses Acute hypoxic respiratory failure J96.01 Healthcare-associated pneumonia J18.9 Bacteremia due to Streptococcus R78.81; B95.5 Acute on chronic diastolic CHF (congestive heart failure) I50.33 Sepsis A41.9
[2024-06-08 16:54] LABS: Glucose Point of Care 321 mg/dL (70-110)
[2024-06-08] MEDS: enoxaparin 40 mg/0.4 mL Syringe SUBCUT (18:57)
[2024-06-08] MEDS: pantoprazole 40 mg SDV IVP (20:26)
[2024-06-08] MEDS: atorvastatin 40 mg Tablet 80 MG PO (20:26)
[2024-06-08] MEDS: clopidogrel 75 mg Tablet PO (20:26)
[2024-06-08] MEDS: TRAMadol 50 mg Tablet PO (20:26)
[2024-06-08] MEDS: trazodone 50 mg Tablet PO (20:26)
[2024-06-08] MEDS: VANCOMYCIN ADD-Vantage 1,000 MG in 0.9% NaCl ADD-Vantage 250 ML 250 MG IV (20:27)
[2024-06-08 20:50] LABS: Glucose Point of Care 188 mg/dL (70-110)
[2024-06-08] MEDS: temazepam 15 mg Capsule PO (21:51)
[2024-06-09] VITALS (11 sets, daily range): BP systolic 117–132; BP diastolic 62–78; PULSE 57–85; RESP 15–18; TEMP 36.4–37; O2SAT 92–96
[2024-06-09] MEDS: cefepime 2,000 mg SDV 2000 MG IVP (03:56)
[2024-06-09 05:01] LABS: Basophils % 0.1 %; Eosinophils # 0.2 10^3/uL (0.0-0.8); Eosinophils % 1.6 %; Hematocrit 36.2 % (36-47); Lymphocytes # 2.1 10^3/uL (0.8-4.8); Lymphocytes % 14.3 %; Mean Corpuscular HGB Conc 30.7 g/dL (30-55); Mean Corpuscular Hemoglobin 26.2 pg (27-33); Mean Corpuscular Volume 85.6 fl (85-98); Mean Platelet Volume 11.3 fL (7.4-10.4); Monocytes # 1.2 10^3/uL (0.2-0.9); Neutrophils # 11.08 10^3/uL (1.8-7.7); Neutrophils % 75.7 %; Nucleated Red Blood Cells % 0 %; Platelet Count 322 10^3/cmm (157-399); Red Blood Count 4.23 10^6/uL (3.85-5.65); Red Cell Distribution Width 13.6 % (12.1-15.1); White Blood Count 14.64 10^3/uL (3.29-11.43)
[2024-06-09 05:28] LABS: Anion Gap 13.3 (5-19); Blood Urea Nitrogen 36 mg/dL (8-23); C Reactive Protein 28.3 mg/L (0.0-4.9); Calcium 9.3 mg/dL (8.5-10.5); Carbon Dioxide 34 mmol/L (22-29); Chloride 98 mmol/L (98-107); Creatinine Clr Calc Pharmacy 33.2912; Glucose 135 mg/dL (65-115); Magnesium 1.9 mg/dL (1.7-2.3); NT Pro B Type Natriuretic Pept 9851 pg/mL (0-450); Osmolality Calculated 302 mOsm/kg (285-295); Phosphorus 4.5 mg/dL (2.5-4.5); Potassium 4.3 mmol/L (3.5-5.1); Sodium 141 mmol/L (136-145)
[2024-06-09 06:37] LABS: Glucose Point of Care 122 mg/dL (70-110)
[2024-06-09] MEDS: FUROsemide 10 mg/mL SDV 4mL 40 MG IVP ×2 (09:21→20:35)
[2024-06-09] MEDS: ranolazine (12HR) 500 mg Tablet PO ×2 (09:22→18:41)
[2024-06-09] MEDS: potassium chloride ER 20 mEq Tablet PO ×2 (09:22→18:41)
[2024-06-09] MEDS: aspirin 81 mg EC Tablet PO (09:22)
[2024-06-09] MEDS: isosorbide mononitrate ER 60 mg Tablet PO (09:23)
--- NOTE | 2024-06-09 09:27 | PC.NURSE ---
Told patient we were going to get up in a chair when giving morning medications. Patient stated back hurt and was not getting up and can refuse. This nurse offered pain medication. Patient stated it would not help and not getting up. Patient is very drowsy this morning but able to answer all questions.
[2024-06-09 11:38] LABS: Glucose Point of Care 211 mg/dL (70-110)
[2024-06-09] MEDS: insulin lispro 100 unit/1 mL SUBCUT ×2 (12:29→18:41)
--- NOTE | 2024-06-09 16:03 | P.PN_ITS ---
Subjective 2 Subjective: Patient feels weak and fatigued this morning her shortness of breath is improving, but continues to have episode of shortness of breath with exertion Vitals/I&O/Wt Last Vital Signs Temp 98.6 F 06/09/24 11:00 Pulse 58 L 06/09/24 11:00 Resp 16 06/09/24 11:00 BP 121/67 06/09/24 11:00 Pulse Ox 96 06/09/24 11:00 O2 Del Method Nasal Cannula 06/09/24 11:00 O2 Flow Rate 2 06/09/24 11:00 FiO2 40 06/08/24 09:10 06/09/24 06/09/24 06/09/24 06:59 14:59 22:59 Intake Total 336 / 336 Output Total 999 / 1999 Balance -1000 / -1150 336 / 336 Weight last 48 hrs Weight 77.61 kg Weight 78.88 kg Weight 80.286 kg Physical Exam 2 Const: COMMON NORMALS: no acute distress and patient oriented x3 Resp: COMMON NORMALS: normal respiratory effort, No retractions and No use of accessory muscles AUSCULTATION: crackles and wheezes Cardio: COMMON NORMALS: regular rate, regular rhythm, S1 normal heart sound present and S2 normal heart sound present RATE: regular rate RHYTHM: r egular rhythm HEART SOUNDS: S1 normal heart sound present and S2 normal heart sound present GI: COMMON NORMALS: Normal to inspection, nondistended, normoactive bowel sounds present and non-tender Extremity: COMMON NORMALS: no pedal edema Neuro: COMMON NORMALS: patient oriented x3 Psych: COMMON NORMALS: mental status grossly normal Urinary Catheter Management: Huff: Cath Placed During This Visit: yes Reason for Continuing Indwelling Catheter: Accurate Measurement of Urinary Output in Critically Ill Patients Urinary Catheter Date of Insertion: 06/07/24 Urinary Catheter Time of Insertion: 23:14 Data 06/09/24 04:45 06/09/24 04:45 Micro: Microbiology 06/08/24 09:40 Gram Stain - Final Sputum - Expectorated Sputum Sputum Culture - Preliminary 06/07/24 22:14 Blood Culture - Preliminary Blood NEGATIVE TO DATE 06/07/24 21:33 Blood Culture - Preliminary Blood NEGATIVE TO DATE A&P Assessment and plan (1) Acute hypoxic respiratory failure: (2) Healthcare-associated pneumonia: (3) Bacteremia due to Streptococcus: (4) Acute on chronic diastolic CHF (congestive heart failure): (5) Sepsis: Plan Acute hypoxic respiratory failure -Will mild respiratory distress -With sepsis -Secondary to healthcare associate pneumonia -Bacteremia secondary to Streptococcus mitis oralis -Acute systolic CHF exacerbation -CT chest CT/CT chest wo con [id number] IMPRESSION: 1. Moderate right and small left pleural effusions. 2. Sternotomy wires and CABG changes. 3. Mild cardiomegaly. 4. Small hiatal hernia. 5. Cholelithiasis partially visualized. 6. Emphysematous changes. 7. Patchy bilateral largely lower lobe airspace infiltrates. 8. Multilevel productive degenerative changes throughout the spine. 9. Scattered prominent mediastinal lymph nodes measuring 4 mm, nonspecific. plan -Monitor respiratory status closely -Requiring BiPAP -Broad-spectrum antibiotic therapy to cover healthcare associate pneumonia -Vancomycin -Cefepime -Levaquin -Monitor respiratory status closely -Sputum culture -Blood cultures -Lasix 40 IV twice daily with metolazone -Serial EKGs, troponins, telemetry -Monitor urine output, monitor creatinine -Full code -Lovenox for DVT prophylaxis Streptococcus oralis bacteremia -Likely from aspiration -Repeat blood cultures ordered -Continue cefepime History of CAD -No chest pain complaints -Serial EKGs, serial troponins, telemetry monitoring NSTEMI, serial EKGs, serial troponins, telemetry monitoring Peripheral arterial disease, Doppler bilateral lower extremity pulses , sepsis features met given acute respiratory distress, leukocytosis, pneumonia, Plan for today continue IV diuresis, continue IV antibiotics monitor respiratory status closely Attestations 2 Medical Necessity Statement*: Patient requires hospitalization for acute hypoxic respiratory failure, CHF, healthcare associated pneumonia Diagnoses Acute hypoxic respiratory failure J96.01 Healthcare-associated pneumonia J18.9 Bacteremia due to Streptococcus R78.81; B95.5 Acute on chronic diastolic CHF (congestive heart failure) I50.33 Sepsis A41.9
[2024-06-09 16:47] LABS: Glucose Point of Care 247 mg/dL (70-110)
[2024-06-09 20:25] LABS: Glucose Point of Care 228 mg/dL (70-110)
[2024-06-09] MEDS: atorvastatin 40 mg Tablet 80 MG PO (20:35)
[2024-06-09] MEDS: clopidogrel 75 mg Tablet PO (20:35)
[2024-06-09] MEDS: enoxaparin 40 mg/0.4 mL Syringe SUBCUT (20:35)
[2024-06-09] MEDS: VANCOMYCIN ADD-Vantage 1,000 MG in 0.9% NaCl ADD-Vantage 250 ML 250 MG IV (20:36)
[2024-06-09] MEDS: pantoprazole 40 mg SDV IVP (20:36)
[2024-06-10] VITALS (10 sets, daily range): BP systolic 104–125; BP diastolic 55–79; PULSE 70–110; RESP 14–24; TEMP 36.6–36.9; O2SAT 93–98
--- NOTE | 2024-06-10 02:50 | ECG_ITS ---
[facility] Test Date: 2024-06-10 Pat Name: Sally Henderson Department: Room: 279 Gender: Female Adding Machine Operator: : 1940 Requested By: Alfreda Jones Order Number: [id number] Leonora MD: Boaz Jaramillo M.D. Measurements Intervals [place] Rate: 112 P: 0 PA: 0 QRS: -38 QRSD: 122 T: 125 QT: 351 QTc: 480 Interpretive Statements SINUS TACHYCARDIA WITH FREQUENT PACs LEFT AXIS DEVIATION [QRS AXIS < -30] LEFT VENTRICULAR HYPERTROPHY AND ST-T CHANGE [VOLTAGE CRITERIA PLUS ST/T ABNORMALITY] Compared to ECG 06/07/2024 18:06:47 Left ventricular hypertrophy now present ST (T wave) deviation now present Intraventricular conduction delay no longer present T-wave abnormality no longer present Possible ischemia no longer present Electronically Signed On 06-13-2024 12:56:58 TENT ASSEMBLER by Boaz Jaramillo M.D. [id number]
[2024-06-10] MEDS: dilTIAZem 5 mg/mL SDV 5 mL 15 MG IVP (03:24)
[2024-06-10] MEDS: cefepime 2,000 mg SDV 2000 MG IVP (04:10)
[2024-06-10 05:33] LABS: Basophils % 0.2 %; Eosinophils # 0.3 10^3/uL (0.0-0.8); Eosinophils % 2.6 %; Hematocrit 40.5 % (36-47); Lymphocytes # 1.8 10^3/uL (0.8-4.8); Lymphocytes % 13.4 %; Mean Corpuscular HGB Conc 30.6 g/dL (30-55); Mean Corpuscular Hemoglobin 26.4 pg (27-33); Mean Corpuscular Volume 86.2 fl (85-98); Mean Platelet Volume 11.7 fL (7.4-10.4); Monocytes # 1.5 10^3/uL (0.2-0.9); Monocytes % 11.2 %; Neutrophils # 9.56 10^3/uL (1.8-7.7); Neutrophils % 72.1 %; Nucleated Red Blood Cells % 0 %; Platelet Count 345 10^3/cmm (157-399); Red Cell Distribution Width 13.3 % (12.1-15.1); White Blood Count 13.23 10^3/uL (3.29-11.43)
--- NOTE | 2024-06-10 05:35 | ECG_ITS ---
[facility] Date: 2024-06-10 Pat Name: Sally Henderson Department: Room: 279 Gender: Female Shot Polisher And Inspector: : 1940 Requested By: Alfreda Jones Order Number: [id number] Reading MD: Boaz Jaramillo M.D. Measurements Intervals [place] Rate: 93 P: 0 TN: 0 QRS: -37 QRSD: 122 T: 119 QT: 395 QTc: 492 Interpretive Statements ATRIAL FLUTTER LEFT AXIS DEVIATION [QRS AXIS < -30] LEFT VENTRICULAR HYPERTROPHY AND ST-T CHANGE [VOLTAGE CRITERIA PLUS ST/T ABNORMALITY] Compared to ECG 06/10/2024 02:56:05 No significant changes Electronically Signed On 06-15-2024 13:58:00 CYBER SYSTEMS OPERATIONS SPECIALIST by Boaz Jaramillo M.D. [id number]
[2024-06-10 05:48] LABS: Anion Gap 14.8 (5-19); Blood Urea Nitrogen 43 mg/dL (8-23); Calcium 9.1 mg/dL (8.5-10.5); Carbon Dioxide 34 mmol/L (22-29); Chloride 90 mmol/L (98-107); Creatinine Clr Calc Pharmacy 22.1941; Glucose 283 mg/dL (65-115); Osmolality Calculated 301 mOsm/kg (285-295); Phosphorus 4.2 mg/dL (2.5-4.5); Potassium 3.8 mmol/L (3.5-5.1); Sodium 135 mmol/L (136-145)
[2024-06-10 05:51] LABS: C Reactive Protein 16.6 mg/L (0.0-4.9)
[2024-06-10 06:01] LABS: NT Pro B Type Natriuretic Pept 5740 pg/mL (0-450)
[2024-06-10 06:28] LABS: Troponin(5th) Baseline 99 ng/L (0-10)
[2024-06-10 06:48] LABS: Glucose Point of Care 281 mg/dL (70-110)
--- NOTE | 2024-06-10 08:58 | PC.NURSE ---
received pt from Med [facility] via bed
--- NOTE | 2024-06-10 09:10 | ECG_ITS ---
[facility] Date: 2024-06-10 Pat Name: Sally Henderson Department: Room: 106 Gender: Female Radio Station Audio Engineer: : 1940 Requested By: Alfreda Jones Order Number: [id number] eLonora MD: Boaz Jaramillo M.D. Measurements Intervals [place] Rate: 96 P: 0 [place]: 0 QRS: -34 QRSD: 122 T: 107 QT: 393 QTc: 499 Interpretive Statements ATRIAL FIBRILLATION LEFT AXIS DEVIATION [QRS AXIS < -30] MODERATE INTRAVENTRICULAR CONDUCTION DELAY [110+ ms QRS DURATION] MODERATE VOLTAGE CRITERIA FOR LVH, CONSIDER NORMAL VARIANT [MEETS CRITERIA IN ONE OF: R(aVL), S(V1), R(V5), R(V5/V6)+S(V1)] ST DEVIATION AND MODERATE T-WAVE ABNORMALITY, CONSIDER LATERAL ISCHEMIA [-0.1+ mV T-WAVE IN I/aVL/V5/V6] Compared to ECG 06/10/2024 05:35:43 Intraventricular conduction delay now present T-wave abnormality now present ST (T wave) deviation no longer present Electronically Signed On 06-15-2024 13:57:14 ACCESSIBILITY LIFT TECHNICIAN by Boaz Jaramillo M.D. [id number]
[2024-06-10 09:13] LABS: Troponin 5 2HR 96.02 ng/L (0-10); Troponin 5 2HR Delta -2.98 ABS# (0-10)
[2024-06-10] MEDS: ranolazine (12HR) 500 mg Tablet PO ×2 (09:22→17:41)
[2024-06-10] MEDS: aspirin 81 mg EC Tablet PO (09:22)
[2024-06-10] MEDS: potassium chloride ER 20 mEq Tablet PO ×2 (09:22→17:41)
[2024-06-10] MEDS: insulin lispro 100 unit/1 mL SUBCUT ×3 (09:22→17:51)
[2024-06-10] MEDS: isosorbide mononitrate ER 60 mg Tablet PO (09:22)
[2024-06-10] MEDS: amiodarone 200 mg Tablet 400 MG PO ×2 (10:14→17:41)
[2024-06-10 10:44] LABS: Troponin 5 6HR 85.83 ng/L (0-10)
[2024-06-10 10:46] LABS: Troponin 5 6HR Delta -13.17 ng/L (0-12)
[2024-06-10 11:58] LABS: Glucose Point of Care 345 mg/dL (70-110)
--- NOTE | 2024-06-10 16:25 | P.PN_ITS ---
Subjective 2 Subjective: Patient was seen this morning, she was moved down to CSU due to atrial flutter, currently heart rates are A-fib in the low 100s, she denies any chest pain, no palpitations, does have shortness of breath weakness and fatigue Vitals/I&O/Wt Last Vital Signs Temp 98.1 F 06/10/24 15:46 Pulse 82 06/10/24 15:46 Resp 23 H 06/10/24 15:46 BP 119/76 06/10/24 15:46 Pulse Ox 95 06/10/24 15:46 O2 Del Method Nasal Cannula 06/10/24 15:46 O2 Flow Rate 2 06/10/24 10:10 FiO2 40 06/08/24 09:10 06/10/24 06/10/24 06/10/24 06:59 14:59 22:59 Intake Total 300 / 1616 342 / 342 Output Total 500 / 2300 750 / 750 Balance -200 / -684 -408 / -408 Weight last 48 hrs Weight 77.61 kg Weight 77.61 kg Physical Exam 2 Const: COMMON NORMALS: no acute distress and patient oriented x3 Resp: COMMON NORMALS: normal respiratory effort, No retractions and No use of accessory muscles AUSCULTATION: crackles and wheezes Cardio: COMMON NORMALS: S1 normal heart sound present and S2 normal heart sound present RATE: tachycardic RHYTHM: abnormal rhythm HEART SOUNDS: S 1 normal heart sound present and S2 normal heart sound present GI: COMMON NORMALS: Normal to inspection, nondistended, normoactive bowel sounds present and non-tender Extremity: COMMON NORMALS: no clubbing, cyanosis or edema and no pedal edema Neuro: COMMON NORMALS: patient oriented x3 Psych: COMMON NORMALS: mental status grossly normal Urinary Catheter Management: Huff: Cath Placed During This Visit: yes Reason for Continuing Indwelling Catheter: Other Urinary Catheter Date of Insertion: 06/07/24 Urinary Catheter Time of Insertion: 23:14 Data 06/10/24 04:05 06/10/24 04:05 Micro: Microbiology 06/08/24 09:40 Gram Stain - Final Sputum - Expectorated Sputum Sputum Culture - Final A&P Assessment and plan (1) Acute hypoxic respiratory failure: (2) Healthcare-associated pneumonia: (3) Bacteremia due to Streptococcus: (4) Acute on chronic diastolic CHF (congestive heart failure): (5) Sepsis: (6) Atrial fibrillation with RVR: Plan Acute hypoxic respiratory failure -Will mild respiratory distress, resolving -With sepsis, resolved -Secondary to healthcare associate pneumonia -Bacteremia secondary to Streptococcus mitis oralis -Acute systolic CHF exacerbation -CT chest CT/CT chest wo con [id number] IMPRESSION: 1. Moderate right and small left pleural effusions. 2. Sternotomy wires and CABG changes. 3. Mild cardiomegaly. 4. Small hiatal hernia. 5. Cholelithiasis partially visualized. 6. Emphysematous changes. 7. Patchy bilateral largely lower lobe airspace infiltrates. 8. Multilevel productive degenerative changes throughout the spine. 9. Scattered prominent mediastinal lymph nodes measuring 4 mm, nonspecific. plan -Monitor respiratory status closely -Requiring BiPAP -Broad-spectrum antibiotic therapy to cover healthcare associate pneumonia -Vancomycin -Cefepime -Levaquin discontinued -Monitor respiratory status closely -Sputum culture -Blood cultures -Lasix 40 IV twice daily with metolazone -Serial EKGs, troponins, telemetry -Monitor urine output, monitor creatinine -Full code -Lovenox for DVT prophylaxis Atrial flutter/atrial fibrillation -Started on amiodarone 400 twice daily -Will consider anticoagulation based on clinical progress Streptococcus oralis bacteremia -Likely from aspiration -Repeat blood cultures ordered -Continue cefepime History of CAD -No chest pain complaints -Serial EKGs, serial troponins, telemetry monitoring NSTEMI, serial EKGs, serial troponins, telemetry monitoring Peripheral arterial disease, Doppler bilateral lower extremity pulses , sepsis features met given acute respiratory distress, leukocytosis, pneumonia, Plan for today monitor heart rates, start amiodarone will try p.o., creatinine up to 1.8 monitor Attestations 2 Medical Necessity Statement*: Patient requires hospitalization for acute hypoxic respiratory failure, atrial flutter atrial fibrillation, Streptococcus oralis bacteremia Diagnoses Acute hypoxic respiratory failure J96.01 Healthcare-associated pneumonia J18.9 Bacteremia due to Streptococcus R78.81; B95.5 Acute on chronic diastolic CHF (congestive heart failure) I50.33 Sepsis A41.9 Atrial fibrillation with RVR I48.91
[2024-06-10 16:43] LABS: Glucose Point of Care 180 mg/dL (70-110)
[2024-06-10] MEDS: enoxaparin 80 mg/0.8 mL Syringe SUBCUT (17:51)
--- NOTE | 2024-06-10 17:54 | PC.NURSE ---
sinus rhythm pt converted back to sinus rhythm around 1:[address] Steward via phone.
[2024-06-10 19:42] LABS: Vancomycin Trough 19.8 ug/mL (10-15)
[2024-06-10 20:11] LABS: Anion Gap 14.8 (5-19); Blood Urea Nitrogen 45 mg/dL (8-23); Calcium 9.4 mg/dL (8.5-10.5); Carbon Dioxide 33 mmol/L (22-29); Chloride 94 mmol/L (98-107); Creatinine Clr Calc Pharmacy 23.4997; Glucose 137 mg/dL (65-115); Osmolality Calculated 300 mOsm/kg (285-295); Potassium 3.8 mmol/L (3.5-5.1); Sodium 138 mmol/L (136-145)
[2024-06-10] MEDS: atorvastatin 40 mg Tablet 80 MG PO (20:48)
[2024-06-10] MEDS: pantoprazole 40 mg SDV IVP (20:48)
[2024-06-10] MEDS: clopidogrel 75 mg Tablet PO (20:48)
[2024-06-10 20:53] LABS: Glucose Point of Care 170 mg/dL (70-110)
[2024-06-11] VITALS: BP 122/55; PULSE 73; RESP 18; O2SAT 98
[2024-06-11 04:00] VITALS: BP 125/50; PULSE 68; RESP 19; TEMP 36.6; O2SAT 96
[2024-06-11] MEDS: cefepime 2,000 mg SDV 2000 MG IVP (06:00)
[2024-06-11 06:19] LABS: Glucose Point of Care 216 mg/dL (70-110)
[2024-06-11 06:49] LABS: Basophils % 0.2 %; Eosinophils # 0.2 10^3/uL (0.0-0.8); Eosinophils % 1.6 %; Hematocrit 40.2 % (36-47); Lymphocytes # 1.7 10^3/uL (0.8-4.8); Lymphocytes % 12.5 %; Mean Corpuscular HGB Conc 30.8 g/dL (30-55); Mean Corpuscular Hemoglobin 25.9 pg (27-33); Mean Corpuscular Volume 83.9 fl (85-98); Mean Platelet Volume 11.6 fL (7.4-10.4); Monocytes # 1.2 10^3/uL (0.2-0.9); Monocytes % 8.6 %; Neutrophils # 10.45 10^3/uL (1.8-7.7); Neutrophils % 76.7 %; Nucleated Red Blood Cells % 0 %; Platelet Count 395 10^3/cmm (157-399); Red Blood Count 4.79 10^6/uL (3.85-5.65); Red Cell Distribution Width 13.2 % (12.1-15.1); White Blood Count 13.64 10^3/uL (3.29-11.43)
[2024-06-11 07:03] LABS: Vancomycin Random 16.1 ug/mL (20.0-40.0)
[2024-06-11 07:10] LABS: Alanine Aminotransferase 14 U/L (0-33); Albumin Level 3.4 g/dL (3.5-5.2); Alkaline Phosphatase 111 U/L (35-105); Anion Gap 14.4 (5-19); Aspartate Amino Transferase 33 U/L (0-32); Blood Urea Nitrogen 47 mg/dL (8-23); C Reactive Protein 15.6 mg/L (0.0-4.9); Calcium 9.3 mg/dL (8.5-10.5); Carbon Dioxide 33 mmol/L (22-29); Chloride 94 mmol/L (98-107); Creatinine Clr Calc Pharmacy 24.9684; Glucose 226 mg/dL (65-115); Magnesium 2.1 mg/dL (1.7-2.3); Osmolality Calculated 303 mOsm/kg (285-295); Phosphorus 3.6 mg/dL (2.5-4.5); Potassium 4.4 mmol/L (3.5-5.1); Sodium 137 mmol/L (136-145); Total Bilirubin 0.4 mg/dL (0.15-1.2); Total Protein 7.4 g/dL (6.6-8.7)
[2024-06-11 07:14] LABS: NT Pro B Type Natriuretic Pept 3912 pg/mL (0-450); Procalcitonin 0.06 ng/mL (0-0.5)
[2024-06-11 08:00] VITALS: BP 120/94; PULSE 75; RESP 20; TEMP 36.4; O2SAT 96
[2024-06-11] MEDS: potassium chloride ER 20 mEq Tablet PO (08:33)
[2024-06-11] MEDS: ranolazine (12HR) 500 mg Tablet PO (08:33)
[2024-06-11] MEDS: insulin lispro 100 unit/1 mL SUBCUT ×2 (08:33→11:51)
[2024-06-11] MEDS: amiodarone 200 mg Tablet 400 MG PO (08:34)
[2024-06-11] MEDS: isosorbide mononitrate ER 60 mg Tablet PO (08:34)
[2024-06-11 10:00] VITALS: PULSE 72; RESP 18; O2SAT 98
--- NOTE | 2024-06-11 10:46 | PC.NURSE ---
Provider ordered to remove gurrola. Order placed.
--- NOTE | 2024-06-11 11:09 | PC.NURSE ---
Patient ambulated in the hallway, 30 feet, vitals remained stable. She did not complain of shortness of breath or chest pain.
[2024-06-11 11:29] LABS: Glucose Point of Care 244 mg/dL (70-110)
[2024-06-11 12:00] VITALS: BP 135/47; PULSE 80; RESP 20; TEMP 36.5; O2SAT 95
--- NOTE | 2024-06-11 13:01 | PM.DCS ---
Discharge Providers Date of Admission: 06/07/24 19:30 Date of Discharge: June 11, 2024 Attending Provider at Admission: Willem Steward MD Attending Provider at Discharge: Willem Steward MD Primary Care Provider: Antonio Delgado MD Diagnoses at Discharge Discharge Diagnosis (1) Acute hypoxic respiratory failure: Status: Resolved (2) Healthcare-associated pneumonia: Status: Resolved (3) Bacteremia due to Streptococcus: Status: Resolved (4) Acute on chronic diastolic CHF (congestive heart failure): Status: Acute (5) Sepsis: Status: Resolved (6) Atrial fibrillation with RVR: Status: Resolved Reason for Visit Reason for Visit: SOB Hospital Course Hospital Course Sally Henderson is a 84 year old female with a past medical history of CHF, chronically occluded left circumflex, currently on 3 L, history of respiratory distress/arrest during last hospitalization requiring intubation, subsequently extubated, concerns for CHF, NSTEMI, Streptococcus mitis oralis positive blood culture not discharged on an p.o. antibiotics who presents [facility] for complaints of shortness of breath, productive cough fatigue malaise fevers and chills. Currently patient is alert oriented x 3, following all commands, she has been short of breath since coming back from the hospital increasingly short of breath, with productive cough, fatigue, malaise, increased wheezing. No nausea, no vomiting, no chest pain, palpitations, no lightheadedness, dizziness Patient was admitted to [facility] for acute hypoxic respiratory failure secondary to healthcare associated pneumonia with sepsis, recent history of bacteremia secondary to Streptococcus mitis oralis, acute CHF systolic exacerbation. Patient received broad-spectrum antibiotic therapy, IV diuresis, clinical monitoring as inpatient. Overall patient clinically improved, antibiotic therapy was de-escalated, diuresis was de-escalated, remained afebrile, blood cultures so far no growth. She will be discharged with a close follow-up with primary care provider as outpatient Physical Exam Const: COMMON NORMALS: no acute distress and patient oriented x3 Resp: COMMON NORMALS: normal respiratory effort, No retractions, No use of accessory muscles and clear to auscultation bilaterally AUSCULTATION: clear to auscultation bilaterally Cardio: COMMON NORMALS: regular rate, regular rhythm, S1 normal heart sound present and S2 normal heart sound present RATE: regular rate RHYTHM: regular rhythm HEART SOUNDS: S1 normal heart sound present and S2 normal heart sound present GI: COMMON NORMALS: Normal to inspection, nondistended, normoactive bowel sounds present and non-tender Extremity: COMMON NORMALS: no pedal edema Neuro: COMMON NORMALS: patient oriented x3 Psych: COMMON NORMALS: mental status grossly normal Urinary Catheter Management: Huff: Cath Placed During This Visit: yes, but has since been removed by the nurse Reason for Continuing Indwelling Catheter: Accurate Measurement of Urinary Output in Critically Ill Patients Urinary Catheter Date of Insertion: 06/07/24 Urinary Catheter Time of Insertion: 23:14 Date Urinary Catheter Removed: 06/11/24 Time Urinary Catheter Discontinued: 12:48 Discharge Data Studies Completed and Pending Completed Studies During Hospitalization Category Date Time Status CT chest wo con [id number] Stat Cat Scan 06/07/24 16:52 Completed XR chest 1V portable [id number] Stat Exams 06/07/24 14:53 Completed Pending at discharge Category Date Time Status Blood Culture Routine Lab 06/07/24 22:14 Results C Reactive Protein AM LABS Lab 06/12/24 04:00 Ordered C Reactive Protein AM LABS Lab 06/13/24 04:00 Ordered Complete Blood Count w/Auto AM LABS Lab 06/12/24 04:00 Ordered Complete Blood Count w/Auto AM LABS Lab 06/13/24 04:00 Ordered Comprehensive Metabolic Panel AM LABS Lab 06/12/24 04:00 Ordered Comprehensive Metabolic Panel AM LABS Lab 06/13/24 04:00 Ordered Magnesium AM LABS Lab 06/12/24 04:00 Ordered Magnesium AM LABS Lab 06/13/24 04:00 Ordered NT Pro B Type Natriuretic Pept QAM Lab 06/12/24 06:00 Ordered NT Pro B Type Natriuretic Pept QAM Lab 06/13/24 06:00 Ordered Phosphorus AM LABS Lab 06/12/24 04:00 Ordered Phosphorus AM LABS Lab 06/13/24 04:00 Ordered Procalcitonin AM LABS Lab 06/12/24 04:00 Ordered Procalcitonin AM LABS Lab 06/13/24 04:00 Ordered Vancomycin Random AM LABS Lab 06/12/24 04:00 Ordered Radiology Impressions Chest X-Ray 06/07/24 14:53 Impression: 1. Basilar pulmonary opacities which may represent pneumonia, effusion and/or atelectasis. 2. Cardiomegaly and atherosclerosis. Chest CT 06/07/24 16:52 IMPRESSION: 1. Moderate right and small left pleural effusions. 2. Sternotomy wires and CABG changes. 3. Mild cardiomegaly. 4. Small hiatal hernia. 5. Cholelithiasis partially visualized. 6. Emphysematous changes. 7. Patchy bilateral largely lower lobe airspace infiltrates. 8. Multilevel productive degenerative changes throughout the spine. 9. Scattered prominent mediastinal lymph nodes measuring 4 mm, nonspecific. Laboratory Results WBC 13.64 10^3/uL (3.29-11.43) H 06/11/24 05:26 RBC 4.79 10^6/uL (3.85-5.65) 06/11/24 05:26 Hgb 12.40 g/dL (11.27-16.99) 06/11/24 05:26 Hct 40.2 % (36-47) 06/11/24 05:26 MCV 83.9 fl (85-98) L 06/11/24 05:26 MCH 25.9 pg (27-33) L 06/11/24 05:26 MCHC 30.8 g/dL (30-55) 06/11/24 05:26 RDW 13.2 % (12.1-15.1) 06/11/24 05:26 Plt Count 395 10^3/cmm (157-399) 06/11/24 05:26 MPV 11.6 fL (7.4-10.4) H 06/11/24 05:26 Neut % (Auto) 76.7 % 06/11/24 05:26 Lymph % (Auto) 12.5 % 06/11/24 05:26 [place] % (Auto) 8.6 % 06/11/24 05:26 Eos % (Auto) 1.6 % 06/11/24 05:26 Baso % (Auto) 0.2 % 06/11/24 05:26 Neut # (Auto) 10.45 10^3/uL (1.8-7.7) H 06/11/24 05:26 Lymph # (Auto) 1.7 10^3/uL (0.8-4.8) 06/11/24 05:26 [place] # (Auto) 1.2 10^3/uL (0.2-0.9) H 06/11/24 05:26 Eos # (Auto) 0.2 10^3/uL (0.0-0.8) 06/11/24 05:26 Baso # (Auto) 0.0 10^3/uL (0.0-0.1) 06/11/24 05:26 Nucleated RBC % (auto) 0 % 06/11/24 05:26 Nucleated RBCs # 0.0 /100WBC 06/11/24 05:26 ESR 29 mm/hr (0-15) H 06/07/24 15:13 Specimen Type Arterial 06/08/24 04:30 Sample Site Brachial, right 06/08/24 04:30 ABG pH 7.56 (7.35-7.45) H 06/08/24 04:30 ABG pCO2 31.7 mmHg (35-45) L 06/08/24 04:30 ABG pO2 141.0 mmHg (80.0-100.0) H 06/08/24 04:30 ABG PO2/FiO2 Ratio 244 06/07/24 17:41 ABG HCO3 28.1 mmol/L (22-26) H 06/08/24 04:30 ABG O2 Saturation > 99.1 06/08/24 04:30 ABG Base Excess 5.9 mmol/L (-2.0-2.0) H 06/08/24 04:30 Tanner Test Pos 06/08/24 04:30 A-a O2 Gradient Not Reportable 06/08/24 04:30 Hematocrit 33.9 % (37-47) L 06/08/24 04:30 Hgb O2 Saturation 98.1 % (95-100) 06/08/24 04:30 Carboxyhemoglobin 0.9 %THgb (0.4-20.1) 06/08/24 04:30 Methemoglobin 1.1 % (0.4-1.5) 06/08/24 04:30 Total Hemoglobin 11.1 g/dL (12-16) L 06/08/24 04:30 Sodium 141.0 mmol/L (131-143) 06/08/24 04:30 Potassium 4.4 mmol/L (3.5-5.0) 06/08/24 04:30 Glucose 266.0 mg/dL (70-115) H 06/08/24 04:30 Ionized Calcium 1.0 mmol/L (1.1-1.4) L 06/08/24 04:30 O2 Delivery Device Nc 06/08/24 04:30 O2 Liters/Min 4.0 % 06/08/24 04:30 FiO2 28.0 % 06/07/24 17:41 Food And Beverage Cashier ID [email or web address] 06/08/24 04:30 Sodium 137 mmol/L (136-145) 06/11/24 05:26 Potassium 4.4 mmol/L (3.5-5.1) 06/11/24 05:26 Chloride 94 mmol/L (98-107) L 06/11/24 05:26 Carbon Dioxide 33 mmol/L (22-29) H 06/11/24 05:26 Anion Gap 14.4 (5-19) 06/11/24 05:26 BUN 47 mg/dL (8-23) H 06/11/24 05:26 Creatinine 1.6 mg/dL (0.5-0.9) H 06/11/24 05:26 GFR Calculation Not Reportable 06/11/24 05:26 Glucose 226 mg/dL (65-115) H 06/11/24 05:26 POC Glucose 244 mg/dL (70-110) H 06/11/24 11:26 Calculated Osmolality 303 mOsm/kg (285-295) H 06/11/24 05:26 Lactic Acid 2.1 mmol/L (0.5-2.2) 06/07/24 15:13 Lactic Acid (Sepsis) 2.0 mmol/L (0.5-2.2) 06/07/24 18:36 Calcium 9.3 mg/dL (8.5-10.5) 06/11/24 05:26 Phosphorus 3.6 mg/dL (2.5-4.5) 06/11/24 05:26 Magnesium 2.1 mg/dL (1.7-2.3) 06/11/24 05:26 Total Bilirubin 0.4 mg/dL (0.15-1.2) 06/11/24 05:26 AST 33 U/L (0-32) H 06/11/24 05:26 ALT 14 U/L (0-33) 06/11/24 05:26 Alkaline Phosphatase 111 U/L (35-105) H 06/11/24 05:26 Troponin T Baseline 99 ng/L (0-10) H 06/10/24 04:05 Troponin T 120 Minute 96.02 ng/L (0-10) H 06/10/24 08:27 Delta Troponin T -2.98 ABS# (0-10) L 06/10/24 08:27 Troponin T Hi Sens 6Hr 85.83 ng/L (0-10) H 06/10/24 10:22 Troponin T Hi Sens 6Hr Delta -13.17 ng/L (0-12) L 06/10/24 10:22 C-Reactive Protein 15.6 mg/L (0.0-4.9) H 06/11/24 05:26 NT-Pro-B Natriuret Pep 3912 pg/mL (0-450) H 06/11/24 05:26 Total Protein 7.4 g/dL (6.6-8.7) 06/11/24 05:26 Albumin 3.4 g/dL (3.5-5.2) L 06/11/24 05:26 Globulin 4.0 g/dL (1.3-4.6) 06/11/24 05:26 Procalcitonin 0.06 ng/mL (0-0.5) 06/11/24 05:26 TSH 1.76 uIU/mL (0.27-4.20) 06/07/24 17:14 Urine Color Yellow (Yellow) 06/07/24 21:43 Urine Appearance Clear (CLEAR) 06/07/24 21:43 Urine pH 5.0 (5-7) 06/07/24 21:43 Ur Specific [place] 1.009 (1.005-1.030) 06/07/24 21:43 Urine Protein Negative (Negative) 06/07/24 21:43 Urine Glucose (UA) 1+ (Normal) H 06/07/24 21:43 Urine Ketones Negative (Negative) 06/07/24 21:43 Urine Blood Negative (Negative) 06/07/24 21:43 Urine Nitrate Negative (Negative) 06/07/24 21:43 Urine Bilirubin Negative (Negative) 06/07/24 21:43 Urine Urobilinogen 0.2 mg/dL (Negative) 06/07/24 21:43 Ur Leukocyte Esterase Negative (Negative) 06/07/24 21:43 Urine RBC 0-2 /hpf (0-2) 06/07/24 21:43 Urine WBC 0-5 /hpf (0-5) 06/07/24 21:43 Ur Squamous Epith Cells 0-5 /hpf (0-5) 06/07/24 21:43 Amorphous Sediment Not Reportable 06/07/24 21:43 Urine Bacteria None seen /hpf (NONE) 06/07/24 21:43 Hyaline Casts 0-4 /lpf H 06/07/24 21:43 Vancomycin Trough 19.8 ug/mL (10-15) H 06/10/24 19:10 Random Vancomycin 16.1 ug/mL (20.0-40.0) L 06/11/24 05:26 Coronavirus (PCR) Negative (Negative) 06/07/24 15:13 Influenza A (PCR) Negative (Negative) 06/07/24 15:13 Influenza Type B (PCR) Negative (Negative) 06/07/24 15:13 RSV (PCR) Negative (Negative) 06/07/24 15:13 Vitals Last Vital Signs Temp 97.7 F 06/11/24 12:00 Pulse 80 06/11/24 12:00 Resp 20 H 06/11/24 12:00 BP 135/47 06/11/24 12:00 Pulse Ox 95 06/11/24 12:00 O2 Del Method Nasal Cannula 06/11/24 12:00 O2 Flow Rate 2 06/11/24 12:00 FiO2 40 06/08/24 09:10 Discharge Plan Discharge Patient Disposition: Home Condition: Stable Prescriptions: New amiodarone [Pacerone] 200 mg Tablet See Rx Instructions .ROUTE .COMPLEX 30 Days Qty: 60 0RF Rx Instructions: Take 1 tab twice daily for 7 days, then 1 tab daily Eliquis 2.5 mg tablet 2.5 mg PO BID 30 Days Qty: 60 0RF Rx Instructions: start tonight 9pm insulin aspart U-100 [Novolog FlexPen U-100 Insulin] 100 unit/mL (3 mL) insulin pen See Rx Instructions .ROUTE .COMPLEX Qty: 15 0RF Rx Instructions: Inject 3 times daily, subcut, after meals, based on sliding scale provided Continued ranolazine 500 mg tablet extended release 12 hr 500 mg PO BID Qty: 60 0RF clopidogrel 75 mg tablet 75 mg PO BEDTIME Qty: 90 3RF tramadol 50 mg tablet 50 mg PO BEDTIME nitroglycerin 0.4 mg tablet, sublingual 0.4 mg buccal PRN PRN (Reason: Chest Pain) atorvastatin 40 mg tablet 80 mg PO BEDTIME Qty: 90 3RF isosorbide mononitrate 60 mg tablet extended release 24 hr 60 mg PO DAILY Changed insulin degludec [Tresiba FlexTouch U-200] 200 unit/mL (3 mL) insulin pen 20 unit SUBCUT DAILY Qty: 9 0RF Held furosemide 40 mg tablet 40 mg PO BID@0800,1400 30 Days Qty: 60 0RF Hold Instructions: Resume on 06/13/24. potassium chloride [Klor-Con M20] 20 mEq tablet,ER particles/crystals 20 meq PO BID 30 Days Qty: 30 3RF Hold Instructions: Resume on 06/13/24. Discontinued aspirin 81 mg Tablet,Delayed Release (Dr/Ec) 81 mg PO DAILY 30 Days Qty: 30 0RF Discharge Orders: Discharge Order (Routine); Ordered 06/11/24 Ordered By: Willem Steward Referrals: Boaz Jaramillo M.D [Physician] - 1-3 days (We have notified your physician's clinic of the need for a follow-up appointment to be scheduled. If you have not heard from them within the next 2 business days, please call them directly. ) Antonio Delgado MD [Primary Care Provider] - 06/14/24 9:45 am Discharge Diet: Cardiac Discharge Activity: Resume usual activity Patient Instructions: Amiodarone (By mouth) (Cordarone, Pacerone), Levofloxacin (By mouth) (Levaquin, Levaquin Leva-reba), Insulin Aspart, Recombinant (By injection) (Novolog, Novolog..., Apixaban (By mouth) (Eliquis), A-fib (Atrial Fibrillation) (DC), Sepsis (DC), Bacteremia (DC), CHF Stoplight, Opioid Safety, Pneumonia Stoplight Activity Restrictions/Additional Instructions: -Hold Lasix until resume thereafter with potassium replacement therapy -Recheck kidney function creatinine in the next 48 hours -Take antibiotics as prescribed -Inhaler therapy as prescribed -I have discharged you on a blood thinner known as Eliquis, if you develop bloody or black stools, if you have a significant fall or head trauma please immediately go to the emergency room or call 11 -Please repeat hemoglobin in 48 hours -Please monitor your blood sugars closely -Monitor your blood sugars 3 times daily as after meals -Please record your blood sugars, and a blood sugar log -For your NovoLog -Please inject blood sugar after meals based on sliding scale provided -Do not inject insulin if you do not eat as hypoglycemia kills -This is a NovoLog sliding scale -Insulin sliding ?fingerstick? Insulin ?141-180?0 units/sq 181-220?2 units/sq ?221-260?4 units/sq ?261-300 6 units/sq ?301-350?8 units/sq ?351-400 10 units/sq ?401-450?12 units/sq >450? 14units/sq -If your blood sugar is greater than 500 go to the emergency room -If your blood sugar is less than 60 or at anytime you feel lightheaded or dizzy or diaphoretic or have chest palpitations check your blood sugar, and eat a hard candy or drink orange juice and go immediately to the emergency room -Remember hypoglycemia kills, so if his blood sugar is less than 60 we have to increase it by taking in a sugary meal such as a hard candy or orange juice and go to the emergency room -If you have any questions please call us where here to help Discharge Attestations Time Spent in Discharge Care*: greater than 30 min Status at Discharge: Cognitive status at discharge: cognitively intact, Behavioral status at discharge: cooperative, Quality Metrics Clinical Quality Measures [ No reported AMI, CVA or VTE this stay] Coding Level of Care Code 41748 Total time (in minutes) for Discharge: 45 Diagnoses Acute hypoxic respiratory failure J96.01 Healthcare-associated pneumonia J18.9 Bacteremia due to Streptococcus R78.81; B95.5 Acute on chronic diastolic CHF (congestive heart failure) I50.33 Sepsis A41.9 Atrial fibrillation with RVR I48.91
[2024-06-11 16:40] LABS: Glucose Point of Care 196 mg/dL (70-110)
[2024-06-11 16:50] VITALS: BP 124/56; PULSE 75; RESP 16; O2SAT 94
== END 2024-06-11 17:46 | disposition home health service (06) | DRG 871 ==
LOC: ER 16:28 → MEDSURG 18:42 → CSU 06-10 08:03
PROVIDERS: Internal Medicine; Admitting Provider Family Medicine; Emergency Provider Student in an Organized Health Care Education/Training Program; PCP Family Medicine; Visit Provider Family Medicine
DX: A41.9 Sepsis, unspecified organism (principal); I50.33 Acute on chronic diastolic (congestive) heart failure; J18.9 Pneumonia, unspecified organism; J96.01 Acute respiratory failure with hypoxia; I48.91 Unspecified atrial fibrillation; I25.10 Atherosclerotic heart disease of native coronary artery without angina pectoris; E11.51 Type 2 diabetes mellitus with diabetic peripheral angiopathy without gangrene; E78.5 Hyperlipidemia, unspecified; Z87.891 Personal history of nicotine dependence; I25.2 Old myocardial infarction; Z95.1 Presence of aortocoronary bypass graft; Z79.82 Long term (current) use of aspirin; Z79.02 Long term (current) use of antithrombotics/antiplatelets; Z79.4 Long term (current) use of insulin
CPT/HCPCS: 36415; 36416; 36600; 51702; 71045; 71250; 80048; 80051; 80053; 80202; 81001; 82330; 82803; 82805; 82962; 83605; 83735; 83880; 84100; 84145; 84443; 84484; 85025; 85651; 86140; 87040; 87070; 87205; 87637; 92610; 93005; 94640; 94660; 94664; 96365; 96372; 96375; 97161; 97165; 97530; 99285; G0378; J0456; J0692; J0696; J1630; J1650; J1815; J1940; J1956; J2470; J3370; J3372; J3490; J7050

== ENCOUNTER 2024-06-28 14:52 | Inpatient (IN) | payer MEDICARE, SELFPAY ==
[2024-06-28] VITALS (11 sets, daily range): BP systolic 125–159; BP diastolic 77–106; PULSE 72–96; RESP 15–31; TEMP 36.3–36.6; O2SAT 92–99; BMI 32.3
--- NOTE | 2024-06-28 14:58 | ECG_ITS ---
[employer] Test Date: 2024-06-28 Pat Name: Sally Henderson Department: Room: Gender: Female Senior Network Architect: : [id number] Requested By: Verito Noel Order Number: [id number] Reading MD: WESLY MORLEY Measurements Intervals [place] Rate: 91 P: 70 LA: 167 QRS: -24 QRSD: 125 T: 87 QT: 345 QTc: 425 Interpretive Statements SINUS RHYTHM WITH OCCASIONAL VENTRICULAR PREMATURE COMPLEXES INDETERMINATE AXIS RIGHT BUNDLE BRANCH BLOCK [120+ ms QRS DURATION, UPRIGHT V1, 40+ ms S IN I/aVL/V4/V5/V6] ST DEPRESSION, CONSIDER SUBENDOCARDIAL INJURY [0.1+ mV ST DEPRESSION] Compared to ECG 06/10/2024 09:58:06 Ventricular premature complex(es) now present Indeterminate axis now present Right bundle-branch block now present ST (T wave) deviation now present Electronically Signed On 06-29-2024 19:17:39 [employer] by WESLY MORLEY [email or web address]
--- NOTE | 2024-06-28 15:10 | XR_ITS ---
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 Cardiomegaly. Compared to the previous examination of 06/07/2024, there continues to be opacities in the right lower and left lower lungs that are likely atelectasis. There appear to be bilateral pleural effusions. There is less normally aerated lung on the right than on the previous examination. There is central pulmonary venous congestion. There are chronic interstitial changes in both lungs, however these are somewhat more pronounced which may indicate superimposition of pulmonary edema on chronic abnormality. XR/XR chest 1V portable [id number] IMPRESSION: Continued lower lobe atelectasis and pleural with less normally aerated right l laz. There could be pulmonary edema as well.
--- NOTE | 2024-06-28 15:12 | ED_ITS ---
HPI - SOB/Dyspnea 2 General: Chief Complaint: Shortness of Breath/Dyspnea Stated Complaint: sob, weakness Time Seen by Provider: 06/28/24 15:00 Source: patient and EMS Mode of arrival: EMS Limitations: no limitations History of Present Illness: HPI Narrative: 84-year-old female with a history of CHF she had also recently had pneumonia had been admitted here roughly 3 weeks ago with respiratory failure. She states today she started getting short of breath. Patient states she typically wears 2 to 3 L of oxygen at home as had been on 4-5. She states that she has had some wheezing denies any cough or fever today denies any pain. Associated symptoms: Deny abdominal pain, chest pain, fever(s), nausea or vomiting Related Data Home Medications ?Medication ?Instructions ?Recorded ?Confirmed tramadol 50 mg tablet 50 mg PO BEDTIME 08/29/23 nitroglycerin 0.4 mg sublingual 0.4 mg buccal PRN PRN Chest Pain 04/10/24 06/28/24 tablet isosorbide mononitrate 60 mg 60 mg PO DAILY 06/07/24 0 06/28/24 tablet,extended release 24 hr Previous Rx's ?Medication ?Instructions ?Recorded clopidogrel 75 mg tablet 75 mg PO BEDTIME #90 tabs ranolazine 500 mg tablet,extended 500 mg PO BID #60 ta bs 03/27/24 release,12 hr atorvastatin 40 mg tablet 80 mg (2 x 40 mg) PO BEDTIME #90 05/28/24 tabs furosemide 40 mg tablet 40 mg PO BID@0800,1400 30 da ys #60 05/28/24 Held on 06/11/24. tabs Instructions: Resume on 06/13/24. potassium chloride 20 mEq 20 meq PO BID 30 days #30 ta bs 05/28/24 tablet,extended release(part/cryst) (Klor-Con M) Held on 06/11/24. Instructions: Resume on 06/13/24. amiodarone 200 mg tablet (Pacerone) See Rx Instruction s .Route 06/11/24 .COMPLEX 30 days #60 tabs apixaban 2.5 mg tablet (Eliquis) 2.5 mg PO BID 30 days #60 tabs 06/11/24 insulin aspart U-100 100 unit/mL See Rx Instructions . Route 06/11/24 (3 mL) subcutaneous pen (Novolog .COMPLEX #15 mL FlexPen U-100 Insulin aspart) insulin degludec 200 unit/mL (3 20 unit (0.1 mL) SUBCU T DAILY #9 mL 06/11/24 mL) subcutaneous pen (Tresiba FlexTouch U-200 insulin) Allergies Allergy/AdvReac Type Severity Reaction Status Date / Time No Known Allergies Allergy Verified 06/28/24 15:07 Review of Systems 2 Const: Denies: fever(s), chills, body aches or change in appetite ENMT: Denies: throat pain or dental pain Card: Denies: chest pain Resp: Reports: dyspnea GI: Denies: abdominal pain, nausea, vomiting or diarrhea Musc: Denies: neck pain or back pain Skin/Breast: Denies: rash Neuro: Denies: headache(s) PFSH ED 2 PFSH: Medical History CHF (congestive heart failure) Acute kidney injury superimposed on chronic kidney disease Acute respiratory failure with hypoxia and hypercapnia Respiratory arrest Non-STEMI (non-ST elevated myocardial infarction) Coronary artery disease NSTEMI (non-ST elevated myocardial infarction) Hyperglycemia Hyperkalemia Elevated brain natriuretic peptide (BNP) level Hyperglycemia Hypoxic respiratory failure Dyslipidemia Contrast-induced nephropathy Type 2 diabetes mellitus without complications CAD (coronary artery disease) Acute [place] Essential (primary) hypertension Surgical History Hx of hysterectomy Hx of CABG Family History Unknown No problems noted. Social History Smoking and tobacco/nicotine status: former use of tobacco/nicotine Alcohol intake: never Substance/Drug Use: never Physical Exam 2 Const: COMMON NORMALS: patient oriented x3 GENERAL APPEARANCE: in distress HENMT: COMMON NORMALS: normocephalic and atraumatic HEAD & SCALP: n ormocephalic and atraumatic Eye: COMMON NORMALS: conjunctivae normal CONJUNCTIVA: Yes conjunctivae normal Neck/C-Spine: COMMON NORMALS: full ROM and supple Chest: COMMONS NORMALS: normal inspection of the chest and normal palpation of entire chest wall Resp: COMMON NORMALS: No retractions and No use of accessory muscles EFFORT & INSPECTION: Yes respiratory distress AUSCULTATION: wheezes Cardio: COMMON NORMALS: regular rate, regular rhythm and No murmurs present (Cardio) RATE: regular rate RHYTHM: regular rhythm GI: COMMON NORMALS: Normal to inspection, nondistended, normoactive bowel sounds present, Soft to palpation, non-tender and no masses PALPATION: Yes Soft to palpation Extremity: COMMON NORMALS: normal to inspection and full ROM Neuro: COMMON NORMALS: patient oriented x3, moves all extremities and no focal motor deficits Psych: COMMON NORMALS: mental status grossly normal, Normal thought process present and cooperative THOUGHT PROCESS: Normal thought process present Skin: COMMON NORMALS: no rashes or lesions noted and no wounds GENERAL SKIN EXAM: no rashes or lesions noted Course 2 Reevaluation(s): Reevaluation #1: Patient's breathing here is worsening she is in more distress we will start her on BiPAP at this time Time: 15:46 Vital Signs: Vital signs: Vital Signs Temperature 97.9 F 06/28/24 14:55 Pulse Rate 87 06/28/24 16:34 Respiratory Rate 16 06/28/24 16:34 Blood Pressure 158/84 06/28/24 16:34 Pulse Oximetry 98 06/28/24 16:34 Oxygen Delivery Me thod BiPAP 06/28/24 16:34 Oxygen Flow Rate 4.5 06/28/24 15:32 Fraction of Inspir ed Oxygen 40 06/28/24 16:02 MDM - SOB/Dyspnea Medical Decision Making Patient presents here with shortness of breath she initially is on 5 L here she did have some increasing work of breathing did place her on BiPAP and she is improved she has no signs of pneumonia some mild hypercapnia on her ABG I spoke to the hospitalist will admit at this time. Medical Records I reviewed the patient's medical records. Lab Data I reviewed the patient's lab results. 06/28/24 15:29 06/28/24 15:29 Labs/Radiology: Radiology Impressions Chest X-Ray 06/28/24 15:10 IMPRESSION: Continued lower lobe atelectasis and pleural with less normally aerated right lung. There could be pulmonary edema as well. Laboratory Results WBC 10.99 10^3/uL (3.29-11.43) 06/28/24: RBC 4.09 10^6/uL (3.85-5.65) 06/28/24 15: Hgb 10.70 g/dL (11.27-16.99) L 06/28/24 15: Hct 35.3 % (36-47) L 06/28/24: MCV 86.3 fl (85-98) 06/28/24: MCH 26.2 pg (27-33) L 06/28/24: MCHC 30.3 g/dL (30-55) 06/28/24: RDW 13.6 % (12.1-15.1) 06/28/24: Plt Count 279 10^3/cmm (157-399) 06/28/24: MPV 11.7 fL (7.4-10.4) H 06/28/24 15: Neut % (Auto) 83.8 % 06/28/24: Lymph % (Auto) 8.3 % 06/28/24: [place] % (Auto) 6.1 % 06/28/24: Eos % (Auto) 1.0 % 06/28/24: Baso % (Auto) 0.3 % 06/28/24: Neut # (Auto) 9.22 10^3/uL (1.8-7.7) H 06/28/24: Lymph # (Auto) 0.9 10^3/uL (0.8-4.8) 06/28/24: [place] # (Auto) 0.7 10^3/uL (0.2-0.9) 06/28/24: Eos # (Auto) 0.1 10^3/uL (0.0-0.8) 06/28/24: Baso # (Auto) 0.0 10^3/uL (0.0-0.1) 06/28/24: Nucleated RBC % (auto) 0 % 06/28/24: Nucleated RBCs # 0.0 /100WBC 06/28/24: PT 13.40 SECONDS (12.1-14.9) 02/14/25 15:29 INR 0.95 (0.8-1.2) 06/28/24 15:29 Specimen Type Arterial 06/28/24 15:12 Sample Site Radial, left 06/28/24 15:12 ABG pH 7.33 (7.35-7.45) L 06/28/24 15:12 ABG pCO2 54.0 mmHg (35-45) H 06/28/24 15:12 ABG pO2 62.7 mmHg (80.0-100.0) L 06/28/24 15:12 ABG HCO3 28.6 mmol/L (22-26) H 06/28/24 15:12 ABG Base Excess 1.8 mmol/L (-2.0-2.0) 06/28/24 15:12 Tanner Test Pos 06/28/24 15:12 Hematocrit 34.5 % (37-47) L 06/28/24 15:12 Hgb O2 Saturation 89.5 % (95-100) L 06/28/24 15:12 Carboxyhemoglobin 1.4 %THgb (0.4-20.1) 06/28/24 15:12 Methemoglobin 1.1 % (0.4-1.5) 06/28/24 15:12 Total Hemoglobin 11.2 g/dL (12-16) L 06/28/24 15:12 O2 Delivery Device Nc 06/28/24 15:12 O2 Liters/Min 2.0 % 06/28/24 15:12 Optical Lab Technician ID [place] 06/28/24 15:12 Sodium 138 mmol/L (136-145) 06/28/24 15:29 Potassium 5.1 mmol/L (3.5-5.1) 06/28/24 15: Chloride 99 mmol/L (98-107) 06/28/24 15:29 Carbon Dioxide 26 mmol/L (22-29) 06/28/24 15:29 Anion Gap 18.1 (5-19) 06/28/24 15:29 BUN 21 mg/dL (8-23) 06/28/24 15:29 Creatinine 1.1 mg/dL (0.5-0.9) H 06/28/24 15:29 GFR Calculation Not Reportable 06/28/24 15:29 Glucose 364 mg/dL (65-115) H 06/28/24 15:29 Calculated Osmolality 304 mOsm/kg (285-295) H 06/28/24 15:29 Calcium 8.9 mg/dL (8.5-10.5) 06/28/24 15:29 Total Bilirubin 0.2 mg/dL (0.15-1.2) 06/28/24 15:29 AST 14 U/L (0-32) 06/28/24 15:29 ALT 8 U/L (0-33) 06/28/24 15:29 Alkaline Phosphatase 123 U/L (35-105) H 06/28/24 15:29 NT-Pro-B Natriuret Pep 4656 pg/mL (0-450) H 06/28/24 15: Total Protein 7.2 g/dL (6.6-8.7) 06/28/24 15: Albumin 3.7 g/dL (3.5-5.2) 06/28/24 15: Globulin 3.5 g/dL (1.3-4.6) 06/28/24 15:29 Coronavirus (PCR) Negative (Negative) 06/28/24 15:47 Influenza A (PCR) Negative (Negative) 06/28/24 15:47 Influenza Type B (PCR) Negative (Negative) 06/28/24 15:47 RSV (PCR) Negative (Negative) 06/28/24 15:47 All radiology interpretation(s) finalized by discharge EKG Data EKG 1: I personally reviewed and interpreted this EKG as follows: EKG Interpretation Date: 06/28/24 EKG interpretation time: 14:58 Interpretation: nsr hr [address] elevation qrs 125 qtc 393 Critical Care Time 2 Critical Care Time: Critical Care Time: Yes Total Critical Care Time: 35 Attestation: The high probability of a clinically significant, sudden or life threatening deterioration of the patient's resp system(s) required my full and direct attention, intervention and personal management. The critical care time is as shown. This time is in addition to time spent performing any reported procedures but includes the following: [x] Data and vital sign review and interpretation [x] Patient assessment, examination and intervention [x] Documentation [x] Medication orders and management Discharge Plan Discharge Patient Disposition: Admitted As Inpatient Clinical Impression: Congestive heart failure, Acute respiratory failure with hypoxia Condition: Stable Prescriptions: No Action ranolazine 500 mg tablet extended release 12 hr 500 mg PO BID Qty: 60 0RF clopidogrel 75 mg tablet 75 mg PO BEDTIME Qty: 90 3RF tramadol 50 mg tablet 50 mg PO BEDTIME nitroglycerin 0.4 mg tablet, sublingual 0.4 mg buccal PRN PRN (Reason: Chest Pain) furosemide 40 mg tablet 40 mg PO BID@0800,1400 30 Days Qty: 60 0RF atorvastatin 40 mg tablet 80 mg PO BEDTIME Qty: 90 3RF potassium chloride [Klor-Con M20] 20 mEq tablet,ER particles/crystals 20 meq PO BID 30 Days Qty: 30 3RF isosorbide mononitrate 60 mg tablet extended release 24 hr 60 mg PO DAILY amiodarone [Pacerone] 200 mg Tablet See Rx Instructions .ROUTE .COMPLEX 30 Days Qty: 60 0RF Rx Instructions: Take 1 tab twice daily for 7 days, then 1 tab daily Eliquis 2.5 mg tablet 2.5 mg PO BID 30 Days Qty: 60 0RF Rx Instructions: start tonight 9pm insulin aspart U-100 [Novolog FlexPen U-100 Insulin] 100 unit/mL (3 mL) insulin pen See Rx Instructions .ROUTE .COMPLEX Qty: 15 0RF Rx Instructions: Inject 3 times daily, subcut, after meals, based on sliding scale provided insulin degludec [Tresiba FlexTouch U-200] 200 unit/mL (3 mL) insulin pen 20 unit SUBCUT DAILY Qty: 9 0RF Referrals: Antonio Delgado MD [Primary Care Provider] - Print Language: Wolof Coding Level of Care Code ED Residential Support Worker for Akosua Vasquez
[2024-06-28 15:23] LABS: ABG PH Result 7.33 (7.35-7.45); Arterial Blood Gas Hematocrit 34.5 % (37-47); Base Excess ABG 1.8 mmol/L (-2.0-2.0); Blood Gas Allen Test Pos; Blood Gas Operator Identificat WALCI; Blood Gas Sample Site Radial, left; Blood Gas Sample Type Arterial; Carboxyhemoglobin 1.4 %THgb (0.4-20.1); HCO3 ABG 28.6 mmol/L (22-26); HGB O2 Sat 89.5 % (95-100); Methemoglobin 1.1 % (0.4-1.5); Oxygen Device NC; PO2 ABG 62.7 mmHg (80.0-100.0); Total Hemoglobin 11.2 g/dL (12-16)
[2024-06-28] MEDS: ipratropium-albuterol 3 mL Neb INHALATION (15:28)
[2024-06-28] MEDS: albuterol 2.5 mg/3 mL Neb INHALATION (15:28)
[2024-06-28 15:39] LABS: Basophils % 0.3 %; Eosinophils # 0.1 10^3/uL (0.0-0.8); Hematocrit 35.3 % (36-47); Lymphocytes # 0.9 10^3/uL (0.8-4.8); Lymphocytes % 8.3 %; Mean Corpuscular HGB Conc 30.3 g/dL (30-55); Mean Corpuscular Hemoglobin 26.2 pg (27-33); Mean Corpuscular Volume 86.3 fl (85-98); Mean Platelet Volume 11.7 fL (7.4-10.4); Monocytes # 0.7 10^3/uL (0.2-0.9); Monocytes % 6.1 %; Neutrophils # 9.22 10^3/uL (1.8-7.7); Neutrophils % 83.8 %; Nucleated Red Blood Cells % 0 %; Platelet Count 279 10^3/cmm (157-399); Red Blood Count 4.09 10^6/uL (3.85-5.65); Red Cell Distribution Width 13.6 % (12.1-15.1); White Blood Count 10.99 10^3/uL (3.29-11.43)
[2024-06-28] MEDS: methylPREDNISolone sod succ 125 mg/2 mL INJ IV (15:43)
[2024-06-28 15:57] LABS: INR 0.95 (0.8-1.2)
[2024-06-28 16:14] LABS: Alanine Aminotransferase 8 U/L (0-33); Albumin Level 3.7 g/dL (3.5-5.2); Alkaline Phosphatase 123 U/L (35-105); Anion Gap 18.1 (5-19); Aspartate Amino Transferase 14 U/L (0-32); Blood Urea Nitrogen 21 mg/dL (8-23); Calcium 8.9 mg/dL (8.5-10.5); Carbon Dioxide 26 mmol/L (22-29); Chloride 99 mmol/L (98-107); Creatinine Clr Calc Pharmacy 45.1761; Globulin 3.5 g/dL (1.3-4.6); Glucose 364 mg/dL (65-115); NT Pro B Type Natriuretic Pept 4656 pg/mL (0-450); Osmolality Calculated 304 mOsm/kg (285-295); Potassium 5.1 mmol/L (3.5-5.1); Sodium 138 mmol/L (136-145); Total Bilirubin 0.2 mg/dL (0.15-1.2); Total Protein 7.2 g/dL (6.6-8.7)
[2024-06-28 16:31] LABS: Influenza A NEGATIVE (Negative); Influenza B NEGATIVE (Negative); Respiratory Syncytial Virus Ce NEGATIVE (Negative); SARS-CoV-2 PCR NEGATIVE (Negative)
--- NOTE | 2024-06-28 16:55 | PM.HP ---
Providers/Chief Complaint Primary Care Provider: Antonio Delgado MD Chief Complaint: sob, weakness History of Present Illness 84-year-old female with a past medical history of paroxysmal atrial flutter/fib, coronary artery disease, congestive heart failure, and chronic hypoxemic respiratory failure on 3 L presents with shortness of breath. She was recently hospitalized from 06/07/2024 to 06/11/2024 for hypoxic respiratory failure due to healthcare-associated pneumonia and CHF exacerbation requiring antibiotics and IV diuretics. She was also admitted from 05/26/2024 to 05/28/2024. The patient reports she was doing well after discharge on 06/11/2024, but started feeling short of breath again this morning. She notes using her oxygen at home, but removes it when going to the restroom. She denies any prolonged periods without oxygen.. She describes her shortness of breath worsening throughout the day, improving briefly before worsening again upon returning home. She confirms taking her diuretics. She denies leg swelling, cough, hemoptysis, fever, chills, nausea, or vomiting. On arrival, she was wheezing and required up to 5 L of oxygen before being placed on BiPAP. Initial evaluation in the ER revealed: - Laboratory Findings: WBC 10.9, hemoglobin 10.7, hematocrit 35.3, platelets 279, sodium 138, potassium 5.1, chloride 99, bicarb 26, BUN 21, creatinine 1.1, glucose 364, proBNP 4656 (up from 3912 two weeks ago). COVID-19, RSV, and flu were negative. - Imaging Studies: Chest x-ray showing continued lower lobe atelectasis and possible pulmonary edema. - Arterial Blood Gas: pH 7.33, pCO2 54, pO2 62, bicarb 28.6. The patient was treated with Solu-Medrol 125 mg and DuoNeb in the ER. She is currently on BiPAP 20/10 with FiO2 40%, rate 14, and good tidal volumes. She reports feeling better on BiPAP. Review of Systems General: Reports: 10 or more systems reviewed and unremarkable except in HPI and below Medications/Allergies Home Medications ?Medication ?Instructions ?Recorded ?Confirmed ?Last Taken ?Type tramadol 50 mg tablet 50 mg PO BEDTIME 08/29/23 06/28/24 06/27/24 History clopidogrel 75 mg tablet 75 mg PO BEDTIME #90 tabs 03/27/24 06/28/24 06/27/24 Rx ranolazine 500 mg tablet,extended 500 mg PO BID #60 tabs 03/27/24 06/28/24 06/28/24 Rx release,12 hr nitroglycerin 0.4 mg sublingual 0.4 mg buccal PRN PRN Chest Pain 04/10/24 06/28/24 Unknown History tablet atorvastatin 40 mg tablet 80 mg (2 x 40 mg) PO BEDTIME #90 05/28/24 06/28/24 06/27/24 Rx tabs furosemide 40 mg tablet 40 mg PO BID@0800,1400 30 days #60 05/28/24 06/28/24 06/28/24 Rx Held on 06/11/24. tabs Instructions: Resume on 06/13/24. potassium chloride 20 mEq 20 meq PO BID 30 days #30 tabs 05/28/24 06/28/24 06/28/24 Rx tablet,extended release(part/cryst) (Klor-Con M) Held on 06/11/24. Instructions: Resume on 06/13/24. isosorbide mononitrate 60 mg 60 mg PO DAILY 06/07/24 06/28/24 06/28/24 History tablet,extended release 24 hr amiodarone 200 mg tablet (Pacerone) See Rx Instructions .Route 06/11/24 06/28/24 06/28/24 Rx .COMPLEX 30 days #60 tabs apixaban 2.5 mg tablet (Eliquis) 2.5 mg PO BID 30 days #60 tabs 06/11/24 06/28/24 06/28/24 Rx insulin aspart U-100 100 unit/mL See Rx Instructions .Route 06/11/24 06/28/24 Unknown Rx (3 mL) subcutaneous pen (Novolog .COMPLEX #15 mL FlexPen U-100 Insulin aspart) insulin degludec 200 unit/mL (3 20 unit (0.1 mL) SUBCUT DAILY #9 mL 06/11/24 06/28/24 06/07/24 Rx mL) subcutaneous pen (Tresiba FlexTouch U-200 insulin) Allergies Allergy/AdvReac Type Severity Reaction Status Date / Time No Known Allergies Allergy Verified 06/28/24 15:07 PFSH Acute PFSH: Medical History CHF (congestive heart failure) Acute kidney injury superimposed on chronic kidney disease Acute respiratory failure with hypoxia and hypercapnia Respiratory arrest Non-STEMI (non-ST elevated myocardial infarction) Coronary artery disease NSTEMI (non-ST elevated myocardial infarction) Hyperglycemia Hyperkalemia Elevated brain natriuretic peptide (BNP) level Hyperglycemia Hypoxic respiratory failure Dyslipidemia Contrast-induced nephropathy Type 2 diabetes mellitus without complications CAD (coronary artery disease) Acute [place] Essential (primary) hypertension Surgical History Hx of hysterectomy Hx of CABG Family History Unknown No problems noted. Social History Smoking and tobacco/nicotine status: former use of tobacco/nicotine Alcohol intake: never Substance/Drug Use: never Vitals/I&O/Wt Last Vital Signs Temp 97.9 F 06/28/24 14:55 Pulse 87 06/28/24 16:34 Resp 16 06/28/24 16:34 BP 158/84 06/28/24 16:34 Pulse Ox 98 06/28/24 16:34 O2 Del Method BiPAP 06/28/24 16:34 O2 Flow Rate 4.5 06/28/24 15:32 FiO2 40 06/28/24 16:02 Weight last 48 hrs Weight 72.575 kg Physical Exam Const: COMMON NORMALS: no acute distress and patient oriented x3 OTHER: in bipap Resp: COMMON NORMALS: normal respiratory effort, No retractions, No use of accessory muscles and clear to auscultation bilaterally AUSCULTATION: clear to auscultation bilaterally Cardio: COMMON NORMALS: regular rate, regular rhythm, S1 normal heart sound present and S2 normal heart sound present RATE: regular rate RHYTHM: regular rhythm HEART SOUNDS: S1 normal heart sound present and S2 normal heart sound present GI: COMMON NORMALS: Normal to inspection, nondistended, normoactive bowel sounds present and non-tender Extremity: COMMON NORMALS: no pedal edema Neuro: COMMON NORMALS: patient oriented x3 Psych: COMMON NORMALS: mental status grossly normal Urinary Catheter Management: Huff: Cath Placed During This Visit: yes, but has since been removed by the nurse Reason for Continuing Indwelling Catheter: Accurate Measurement of Urinary Output in Critically Ill Patients Urinary Catheter Date of Insertion: 06/07/24 Urinary Catheter Time of Insertion: 23:14 Date Urinary Catheter Removed: 06/11/24 Time Urinary Catheter Discontinued: 12:48 Data 06/28/24 15:29 06/28/24 15:29 A&P Assessment and plan (1) Acute respiratory failure with hypoxia: Plan Acute Hypoxemic Respiratory Failure - 84-year-old female with chronic hypoxemic respiratory failure on home oxygen presenting with acute worsening of hypoxemia and increased work of breathing, requiring BiPAP. Differential Diagnosis: 1. CHF exacerbation, given elevated proBNP and history of paroxysmal atrial flutter/fib. 2. Pneumonia, though less likely given recent treatment and negative infectious workup. Plan: 1. Continue BiPAP with goal to wean as tolerated. Monitor oxygen requirements closely. 2. Scheduled DuoNeb treatments every 6 hours. 3. Short course of prednisone for presumed COPD exacerbation. 4. Outpatient pulmonary consult Congestive Heart Failure - History of chronic systolic heart failure, now with evidence of mild volume overload based on elevated proBNP and chest x-ray findings. Plan: 1. Continue home diuretics 40 mg daily, consider IV diuresis if persistent volume overload. 2. Daily weights and strict I/Os. 3. Low salt diet, fluid restriction. Coronary Artery Disease - Known history of CAD, currently asymptomatic. Plan: 1. Continue home medication: Plavix 75 mg daily, lipitor 80 mg daily 2. Maintain on telemetry for arrhythmia monitoring. Paroxysmal Atrial Flutter/Fibrillation - History of paroxysmal atrial flutter/fib, currently in sinus rhythm. Plan: 1. Continue Amiodarone and Eliquis 2.5 mg BID. 2. Maintain on telemetry for arrhythmia monitoring. Diabetes Mellitus - Insulin-dependent diabetes with hyperglycemia on admission (glucose 364). Plan: 1. Initiate insulin sliding scale for blood glucose control.l. 2. Diabetic diet, blood glucose monitoring ac/hs. PDMP PDMP Reviewed: Not Reviewed Attestations Medical Necessity Statement*: Patient requires hospitalization for acute hypoxic respiratory failure, on bipap Coding Level of Care Code Acute Code for Chg Fwd Diagnoses Acute respiratory failure with hypoxia J96.01
[2024-06-28 21:11] LABS: Glucose Point of Care 369 mg/dL (70-110)
[2024-06-28] MEDS: clopidogrel 75 mg Tablet PO (21:33)
[2024-06-28] MEDS: atorvastatin 40 mg Tablet 80 MG PO (21:33)
[2024-06-28] MEDS: apixaban 5 mg Tablet 2.5 MG PO (21:34)
[2024-06-28] MEDS: insulin glargine 100 units/1 mL 24 UNIT SUBCUT (21:39)
[2024-06-29] VITALS (21 sets, daily range): BP systolic 104–165; BP diastolic 54–91; PULSE 76–109; RESP 19–40; TEMP 36.4–36.9; O2SAT 94–98
[2024-06-29] MEDS: ipratropium-albuterol 3 mL Neb INHALATION ×7 (00:07→20:56)
[2024-06-29] MEDS: LORazepam 2 mg/mL INJ 1 mL 0.5 MG IVP (01:51)
--- NOTE | 2024-06-29 02:18 | PC.NURSE ---
Patient keeps pulling tubing off of bipap mask and disconnecting mask; educated patient on importance of keeping bipap mask on throughout the night; patient still insisting to be taken off bipap and put back on NC. Bipap mask removed per patient request and placed back on 4L NC. Patient still saturating at 97%, Respiratory therapist Lakeisha Martell updated.
[2024-06-29] MEDS: FUROsemide 10 mg/mL SDV 4mL 40 MG IVP (03:02)
[2024-06-29] MEDS: TRAMadol 50 mg Tablet PO ×3 (04:35→20:40)
[2024-06-29 04:40] LABS: ABG PCO2 42.2 mmHg (35-45); ABG PH Result 7.34 (7.35-7.45); Alveolar-Arterial Oxygen Gradi 23.7 mmHg (5-10); Arterial Blood Gas Hematocrit 35.7 % (37-47); Base Excess ABG -3.2 mmol/L (-2.0-2.0); Blood Gas Sample Site Brachial, right; Blood Gas Sample Type Arterial; Carboxyhemoglobin 0.9 %THgb (0.4-20.1); HCO3 ABG 22.5 mmol/L (22-26); HGB O2 Sat 94.6 % (95-100); Ionized Calcium Level - ABG 1.2 mmol/L (1.1-1.4); Methemoglobin 1.1 % (0.4-1.5); Oxygen Device BIPAP; Oxygen Saturation ABG 96.5; PO2 ABG 83.9 mmHg (80.0-100.0); PO2 FiO2 Ratio Arterial Blood 186; Potassium Level - ABG 4.4 mmol/L (3.5-5.0); Total Hemoglobin 11.7 g/dL (12-16)
[2024-06-29 05:28] LABS: Basophils % 0.1 %; Hematocrit 37.3 % (36-47); Lymphocytes # 0.2 10^3/uL (0.8-4.8); Lymphocytes % 1.8 %; Mean Corpuscular HGB Conc 30.3 g/dL (30-55); Mean Corpuscular Hemoglobin 26.8 pg (27-33); Mean Corpuscular Volume 88.4 fl (85-98); Mean Platelet Volume 11.9 fL (7.4-10.4); Monocytes # 0.1 10^3/uL (0.2-0.9); Neutrophils # 11.02 10^3/uL (1.8-7.7); Neutrophils % 96.5 %; Nucleated Red Blood Cells % 0 %; Platelet Count 319 10^3/cmm (157-399); Red Blood Count 4.22 10^6/uL (3.85-5.65); Red Cell Distribution Width 13.7 % (12.1-15.1); White Blood Count 11.41 10^3/uL (3.29-11.43)
[2024-06-29 05:46] LABS: Anion Gap 25.6 (5-19); Blood Urea Nitrogen 24 mg/dL (8-23); Calcium 9.5 mg/dL (8.5-10.5); Carbon Dioxide 20 mmol/L (22-29); Chloride 95 mmol/L (98-107); Creatinine Clr Calc Pharmacy 38.2259; Osmolality Calculated 310 mOsm/kg (285-295); Potassium 4.6 mmol/L (3.5-5.1); Sodium 136 mmol/L (136-145)
[2024-06-29 05:52] LABS: Glucose 536 mg/dL (65-115)
[2024-06-29] MEDS: insulin regular-human 100 units/1 mL 15 UNIT IVP (06:11)
[2024-06-29 06:45] LABS: Glucose Point of Care 484 mg/dL (70-110)
[2024-06-29] MEDS: insulin lispro 100 unit/1 mL SUBCUT ×3 (08:07→17:24)
[2024-06-29] MEDS: predniSONE 20 mg Tablet 40 MG PO (08:08)
[2024-06-29] MEDS: ranolazine (12HR) 500 mg Tablet PO ×2 (08:08→17:24)
[2024-06-29] MEDS: isosorbide mononitrate ER 60 mg Tablet PO (08:08)
[2024-06-29] MEDS: apixaban 5 mg Tablet 2.5 MG PO ×2 (08:08→20:29)
[2024-06-29] MEDS: FUROsemide 40 mg Tablet PO ×2 (08:08→13:09)
[2024-06-29] MEDS: amiodarone 200 mg Tablet PO (08:08)
[2024-06-29 11:43] LABS: Glucose Point of Care 369 mg/dL (70-110)
[2024-06-29] MEDS: methylPREDNISolone sod succ 40 mg/mL INJ IVP (13:32)
--- NOTE | 2024-06-29 14:52 | XRR_ITS ---
PROCEDURE INFORMATION: Exam: XR Chest Exam date and time: 06/29/2024 3:11 PM Age: 84 years old Clinical indication: Other: Pneumonia; Prior surgery; Surgery date: 6+ months; Surgery type: Cabg; Additional info: Worsening respiratory distress TECHNIQUE: Imaging protocol: Radiologic exam of the chest. Views: 1 view. COMPARISON: CR XR chest 1V portable [id number] 06/28/2024 3:19 PM FINDINGS: Tubes, catheters and devices: Overlying monitor leads. Lungs: Ill-defined opacity with decreased visualization of the left lung base in relation to prior exam, suggesting left basilar infiltrate and/or effusion. Improved aeration right lung base in relation to prior exam with likely component of right basilar atelectasis. Mild chronic interstitial lung changes. No pneumothorax. Pleural spaces: See Lungs finding. Heart/Mediastinum: Mild cardiomegaly. Postsurgical changes of sternotomy/CABG. Bones/joints: Old rib fractures on the left. XR/XR chest 1V [id number] IMPRESSION: Mild cardiomegaly and previous CABG. Ill-defined opacity within the left lung base with today's exam, with nonvisualization of the left diaphragm and costophrenic angle. Findings suggest left basilar infiltrate and likely associated effusion, for follow-up. Mild right basilar atelectasis with improved aeration right lung base otherwise with prior exam.
--- NOTE | 2024-06-29 14:53 | P.PN_ITS ---
Subjective 2 Subjective: - The patient continued to have difficul ty breathing overnight and required BiPAP this morning. She was noted to have conversational dyspnea and audible wheezing during evaluation. An attempt was made to place her on heated high flow, but she did not tolerate this. - Repeat blood tests showed a pH of 7.34 , PCO2 of 42, CO2 of 83.9, and a bicarb of 22.5 while on BiPAP. Sodium was 136, potassium 4, chloride 95, bicarb 20, BUN 24, and creatinine 1.3. - Glucose elevated to 536 this morning, likely due to steroids received yesterday. She was restarted on insulin with 24 units at bedtime and albuterol 40 mg every 2-12 hours. - Lasix 40 mg was given every 12 hours, with the next dose scheduled for tomorrow morning at 9 AM. Vitals/I&O/Wt Last Vital Signs Temp 98 F 06/29/24 13:30 Pulse 80 06/29/24 13:30 Resp 20 H 06/29/24 13:30 BP 111/67 06/29/24 13:30 Pulse Ox 96 06/29/24 13:30 O2 Del Method BiPAP 06/29/24 13:30 O2 Flow Rate 50 06/29/24 09:45 FiO2 40 06/29/24 11:03 06/28/24 06/29/24 06/29/24 22:59 06:59 14:59 Intake Total 120 / 120 Balance 120 / 120 Weight last 48 hrs Weight 78.216 kg Weight 72.575 kg Physical Exam 2 Const: COMMON NORMALS: no acute distress and patient oriented x3 OTHER: in bipap Resp: COMMON NORMALS: normal respiratory effort, No retractions, No use of accessory muscles and clear to auscultation bilaterally AUSCULTATION: clear to auscultation bilaterally Cardio: COMMON NORMALS: regular rate, regular rhythm, S1 normal heart sound present and S2 normal heart sound present RATE: regular rate RHYTHM: r egular rhythm HEART SOUNDS: S1 normal heart sound present and S2 normal heart sound present GI: COMMON NORMALS: Normal to inspection, nondistended, normoactive bowel sounds present and non-tender Extremity: COMMON NORMALS: no pedal edema Neuro: COMMON NORMALS: patient oriented x3 Psych: COMMON NORMALS: mental status grossly normal Urinary Catheter Management: Huff: Cath Placed During This Visit: yes, but has since been removed by the nurse Reason for Continuing Indwelling Catheter: Accurate Measurement of Urinary Output in Critically Ill Patients Urinary Catheter Date of Insertion: 06/29/24 Urinary Catheter Time of Insertion: 08:28 Date Urinary Catheter Removed: 06/11/24 Time Urinary Catheter Discontinued: 12:48 Data 06/29/24 04:59 06/29/24 04:59 A&P Assessment and plan (1) Acute respiratory failure with hypoxia: Plan Acute on chronic Hypoxemic Respiratory Failure - The patient is an 84-year-old female with chronic hypoxemic respiratory failure on home oxygen presenting with acute worsening of hypoxemia and increased work of breathing, requiring BiPAP. - Differential Diagnosis: 1. CHF exacerbation, given elevated proBNP and history of paroxysmal atrial flutter/fib. 2. Pneumonia, though less likely given recent treatment and negative infectious workup. Plan: 1. Continue BiPAP with goal to wean as tolerated. Monitor oxygen requirements closely. 2. Scheduled DuoNeb treatments every 6 hours. 3. Continue solumedrol 40 mg IV q12hr 4. Outpatient pulmonary consult. Congestive Heart Failure - Now with evidence of mild volume overload based on elevated proBNP and chest x-ray findings. Plan: 1. Continue with Lasix 40 mg IV BID - next dose in am 2. Daily weights and strict I/Os. 3. Low salt diet, fluid restriction. Coronary Artery Disease - Known history of CAD, currently asymptomatic. - Plan: 1. Continue home medication: Plavix 75 mg daily, Lipitor 80 mg daily. 2. Maintain on telemetry for arrhythmia monitoring. Paroxysmal Atrial Flutter/Fibrillation - History of paroxysmal atrial flutter/fib, currently in sinus rhythm. - Plan: 1. Continue amiodarone and Eliquis 2.5 mg BID. 2. Maintain on telemetry for arrhythmia monitoring. Insulin-dependent diabetes with hyperglycemia on admission (glucose 364). - Plan: 1. Initiate insulin sliding scale for blood glucose control. 2. Diabetic diet, blood glucose monitoring ac/hs. 3. Lantus 23 units at bedtime PDMP PDMP Reviewed: Not Reviewed Attestations 2 Medical Necessity Statement*: Patient requires over 2 midnight stay for management of acute hypoxic respiratory failure, on bipap Coding Level of Care Code Acute Code for [facility] Diagnoses Acute respiratory failure with hypoxia J96.01
[2024-06-29 16:59] LABS: Glucose Point of Care 224 mg/dL (70-110)
--- NOTE | 2024-06-29 17:12 | PC.NURSE ---
Blood sugar only 224. Pt scheduled 8 units sliding scale and [address] Castillo advised. Give SS only tonight.
[2024-06-29] MEDS: clopidogrel 75 mg Tablet PO (20:29)
[2024-06-29] MEDS: atorvastatin 40 mg Tablet 80 MG PO (20:29)
[2024-06-29] MEDS: acetaminophen 325 mg Tablet 650 MG PO (20:40)
[2024-06-29 21:01] LABS: Glucose Point of Care 295 mg/dL (70-110)
[2024-06-29] MEDS: insulin glargine 100 units/1 mL 24 UNIT SUBCUT (21:23)
[2024-06-30] VITALS (16 sets, daily range): BP systolic 114–126; BP diastolic 67–82; PULSE 72–113; RESP 14–30; TEMP 36.5–36.8; O2SAT 92–97
[2024-06-30] MEDS: ipratropium-albuterol 3 mL Neb INHALATION ×5 (00:02→15:45)
[2024-06-30] MEDS: methylPREDNISolone sod succ 40 mg/mL INJ IVP ×2 (01:06→14:29)
[2024-06-30 05:32] LABS: Basophils % 0.1 %; Hematocrit 31.3 % (36-47); Lymphocytes # 0.3 10^3/uL (0.8-4.8); Lymphocytes % 1.7 %; Mean Corpuscular Hemoglobin 26.1 pg (27-33); Mean Corpuscular Volume 84.4 fl (85-98); Mean Platelet Volume 12.3 fL (7.4-10.4); Monocytes # 0.4 10^3/uL (0.2-0.9); Monocytes % 1.9 %; Neutrophils # 17.34 10^3/uL (1.8-7.7); Neutrophils % 95.6 %; Nucleated Red Blood Cells % 0 %; Platelet Count 235 10^3/cmm (157-399); Red Blood Count 3.71 10^6/uL (3.85-5.65); Red Cell Distribution Width 13.9 % (12.1-15.1); White Blood Count 18.13 10^3/uL (3.29-11.43)
[2024-06-30 05:47] LABS: Anion Gap 14.6 (5-19); Blood Urea Nitrogen 30 mg/dL (8-23); Calcium 8.8 mg/dL (8.5-10.5); Carbon Dioxide 29 mmol/L (22-29); Chloride 99 mmol/L (98-107); Creatinine Clr Calc Pharmacy 41.8334; Glucose 383 mg/dL (65-115); Osmolality Calculated 308 mOsm/kg (285-295); Potassium 4.6 mmol/L (3.5-5.1); Sodium 138 mmol/L (136-145)
[2024-06-30 06:31] LABS: Glucose Point of Care 385 mg/dL (70-110)
[2024-06-30] MEDS: apixaban 5 mg Tablet 2.5 MG PO ×2 (09:09→20:59)
[2024-06-30] MEDS: ranolazine (12HR) 500 mg Tablet PO ×2 (09:09→17:22)
[2024-06-30] MEDS: amiodarone 200 mg Tablet PO (09:10)
[2024-06-30] MEDS: FUROsemide 10 mg/mL SDV 4mL 40 MG IVP (09:10)
[2024-06-30] MEDS: insulin lispro 100 unit/1 mL SUBCUT ×4 (09:11→11:52)
[2024-06-30 10:56] LABS: Glucose Point of Care 474 mg/dL (70-110)
[2024-06-30] MEDS: isosorbide mononitrate ER 60 mg Tablet PO (11:43)
--- NOTE | 2024-06-30 16:38 | PM.PN ---
Subjective Subjective: - The patient continued to have difficulty breathing overnight and required BiPAP this morning. She was noted to have conversational dyspnea and audible wheezing during evaluation. An attempt was made to place her on heated high flow, but she did not tolerate this. - Repeat blood tests showed a pH of 7.34, PCO2 of 42, CO2 of 83.9, and a bicarb of 22.5 while on BiPAP. Sodium was 136, potassium 4, chloride 95, bicarb 20, BUN 24, and creatinine 1.3. - Glucose elevated to 536 this morning, likely due to steroids received yesterday. She was restarted on insulin with 24 units at bedtime and albuterol 40 mg every 2-12 hours. - Lasix 40 mg was given every 12 hours, with the next dose scheduled for tomorrow morning at 9 AM. 06/30 - Patient improved today. She was taken off Bipap. Wanting to go home. On 3L via [place] Vitals/I&O/Wt Last Vital Signs Temp 98.2 F 06/30/24 04:00 Pulse 78 06/30/24 16:00 Resp 16 06/30/24 15:45 BP 114/78 06/30/24 16:00 Pulse Ox 92 06/30/24 16:00 O2 Del Method Nasal Cannula 06/30/24 16:00 O2 Flow Rate 3 06/30/24 16:00 FiO2 35 06/30/24 07:27 06/30/24 06/30/24 06/30/24 06:59 14:59 22:59 Intake Total 480 / 480 Output Total 150 / 150 1000 / 1000 Balance -150 / 270 480 / 480 -1000 / -520 Weight last 48 hrs Weight 79.424 kg Weight 78.216 kg Physical Exam Const: COMMON NORMALS: no acute distress and patient oriented x3 OTHER: in bipap Resp: COMMON NORMALS: normal respiratory effort, No retractions, No use of accessory muscles and clear to auscultation bilaterally AUSCULTATION: clear to auscultation bilaterally Cardio: COMMON NORMALS: regular rate, regular rhythm, S1 normal heart sound present and S2 normal heart sound present RATE: regular rate RHYTHM: regular rhythm HEART SOUNDS: S1 normal heart sound present and S2 normal heart sound present GI: COMMON NORMALS: Normal to inspection, nondistended, normoactive bowel sounds present and non-tender Extremity: COMMON NORMALS: no pedal edema Neuro: COMMON NORMALS: patient oriented x3 Psych: COMMON NORMALS: mental status grossly normal Urinary Catheter Management: Huff: Cath Placed During This Visit: yes, but has since been removed by the nurse Reason for Continuing Indwelling Catheter: Accurate Measurement of Urinary Output in Critically Ill Patients Urinary Catheter Date of Insertion: 06/29/24 Urinary Catheter Time of Insertion: 08:28 Date Urinary Catheter Removed: 06/11/24 Time Urinary Catheter Discontinued: 12:48 Data 06/30/24 04:44 06/30/24 04:44 A&P Assessment and plan (1) Acute respiratory failure with hypoxia: Plan Acute on chronic Hypoxemic Respiratory Failure - improved today - The patient is an 84-year-old female with chronic hypoxemic respiratory failure on home oxygen presenting with acute worsening of hypoxemia and increased work of breathing, requiring BiPAP. Plan: 1. Weaned off BiPAP today, on 3L ia [place] today 2. Scheduled DuoNeb treatments every 6 hours. 3. Continue solumedrol 40 mg IV q12hr - transition to prednisone for short course 4. Outpatient pulmonary consult follow up Congestive Heart Failure - Now with evidence of mild volume overload based on elevated proBNP and chest x-ray findings. Plan: 1. Continue with Lasix 20 mg IV BID - next dose in am - change to PO in am 2. Daily weights and strict I/Os. 3. Low salt diet, fluid restriction. Coronary Artery Disease - Known history of CAD, currently asymptomatic. - Plan: 1. Continue home medication: Plavix 75 mg daily, Lipitor 80 mg daily. 2. Maintain on telemetry for arrhythmia monitoring. Paroxysmal Atrial Flutter/Fibrillation - History of paroxysmal atrial flutter/fib, currently in sinus rhythm. - Plan: 1. Continue amiodarone and Eliquis 2.5 mg BID. 2. Maintain on telemetry for arrhythmia monitoring. Insulin-dependent diabetes with hyperglycemia on admission (glucose 364). - Plan: 1. Continue sliding scale for blood glucose control. 2. Diabetic diet, blood glucose monitoring ac/hs. 3. Lantus 23 units at bedtime PDMP PDMP Reviewed: Not Reviewed Attestations Medical Necessity Statement*: Patient requires over 2 midnight stay for management of acute hypoxic respiratory failure, on bipap Coding Level of Care Code Acute Code for [facility] Diagnoses Acute respiratory failure with hypoxia J96.01
[2024-06-30 16:59] LABS: Glucose Point of Care 127 mg/dL (70-110)
[2024-06-30] MEDS: clopidogrel 75 mg Tablet PO (20:59)
[2024-06-30] MEDS: atorvastatin 40 mg Tablet 80 MG PO (20:59)
[2024-06-30] MEDS: insulin glargine 100 units/1 mL 24 UNIT SUBCUT (21:01)
[2024-06-30 21:04] LABS: Glucose Point of Care 237 mg/dL (70-110)
[2024-07-01] VITALS (14 sets, daily range): BP systolic 119–140; BP diastolic 62–86; PULSE 66–87; RESP 17–40; TEMP 36.4–37.4; O2SAT 90–98; BMI 35.8
[2024-07-01] MEDS: ipratropium-albuterol 3 mL Neb INHALATION ×4 (02:33→21:25)
[2024-07-01 04:37] LABS: Basophils % 0.1 %; Eosinophils % 0.1 %; Hematocrit 35.1 % (36-47); Lymphocytes # 1.2 10^3/uL (0.8-4.8); Lymphocytes % 6.8 %; Mean Corpuscular HGB Conc 31.1 g/dL (30-55); Mean Corpuscular Hemoglobin 26.3 pg (27-33); Mean Corpuscular Volume 84.6 fl (85-98); Mean Platelet Volume 12.2 fL (7.4-10.4); Monocytes # 1.3 10^3/uL (0.2-0.9); Monocytes % 7.4 %; Neutrophils # 15.37 10^3/uL (1.8-7.7); Neutrophils % 85.2 %; Nucleated Red Blood Cells % 0 %; Platelet Count 242 10^3/cmm (157-399); Red Blood Count 4.15 10^6/uL (3.85-5.65); Red Cell Distribution Width 14.1 % (12.1-15.1); White Blood Count 18.01 10^3/uL (3.29-11.43)
[2024-07-01 04:53] LABS: Anion Gap 12.1 (5-19); Blood Urea Nitrogen 41 mg/dL (8-23); Calcium 8.9 mg/dL (8.5-10.5); Carbon Dioxide 34 mmol/L (22-29); Chloride 100 mmol/L (98-107); Creatinine Clr Calc Pharmacy 38.8453; Glucose 226 mg/dL (65-115); Osmolality Calculated 311 mOsm/kg (285-295); Potassium 4.1 mmol/L (3.5-5.1); Sodium 142 mmol/L (136-145)
[2024-07-01 06:34] LABS: Glucose Point of Care 254 mg/dL (70-110)
[2024-07-01] MEDS: insulin lispro 100 unit/1 mL SUBCUT ×4 (06:39→18:24)
[2024-07-01] MEDS: isosorbide mononitrate ER 60 mg Tablet PO (08:59)
[2024-07-01] MEDS: predniSONE 20 mg Tablet 40 MG PO (08:59)
[2024-07-01] MEDS: hyDROXYzine 25 mg Capsule PO (08:59)
[2024-07-01] MEDS: apixaban 5 mg Tablet 2.5 MG PO ×2 (09:00→21:12)
[2024-07-01] MEDS: amiodarone 200 mg Tablet PO (09:00)
[2024-07-01] MEDS: FUROsemide 40 mg Tablet PO (09:00)
[2024-07-01] MEDS: ranolazine (12HR) 500 mg Tablet PO ×2 (09:01→18:21)
[2024-07-01 12:21] LABS: Glucose Point of Care 56 mg/dL (70-110)
--- NOTE | 2024-07-01 12:52 | P.PN_ITS ---
Subjective 2 Subjective: - The patient continued to have difficul ty breathing overnight and required BiPAP this morning. She was noted to have conversational dyspnea and audible wheezing during evaluation. An attempt was made to place her on heated high flow, but she did not tolerate this. - Repeat blood tests showed a pH of 7.34 , PCO2 of 42, CO2 of 83.9, and a bicarb of 22.5 while on BiPAP. Sodium was 136, potassium 4, chloride 95, bicarb 20, BUN 24, and creatinine 1.3. - Glucose elevated to 536 this morning, likely due to steroids received yesterday. She was restarted on insulin with 24 units at bedtime and albuterol 40 mg every 2-12 hours. - Lasix 40 mg was given every 12 hours, with the next dose scheduled for tomorrow morning at 9 AM. 06/30 - Patient improved today. She was taken off Bipap. Wanting to go home. On 3L via [place] 07/01 - Patient was noted to have again respir atory distress. Stated she could not get a breath in. Stated she was not able to wear the mask for BiPAP Medications: Reviewed: Yes Vitals/I&O/Wt Last Vital Signs Temp 98.1 F 07/01/24 12:15 Pulse 87 07/01/24 12:15 Resp 19 H 07/01/24 12:15 BP 129/86 07/01/24 12:15 Pulse Ox 95 07/01/24 12:15 O2 Del Method BiPAP 07/01/24 07:22 O2 Flow Rate 5 07/01/24 08:00 FiO2 35 07/01/24 09:06 06/30/24 07/01/24 07/01/24 22:59 06:59 14:59 Intake Total 480 / 960 240 / 1200 100 / 100 Output Total 2000 / 1999 750 / 2750 Balance -1520 / -1040 -510 / -1550 100 / 100 Weight last 48 hrs Weight 80.399 kg Weight 79.424 kg Physical Exam 2 Const: COMMON NORMALS: patient oriented x3 OTHER: in bipap Resp: COMMON NORMALS: normal respiratory effort, No retractions, No use of accessory muscles and clear to auscultation bilaterally AUSCULTATION: clear to auscultation bilaterally Cardio: COMMON NORMALS: regular rate, regular rhythm, S1 normal heart sound present and S2 normal heart sound present RATE: regular rate RHYTHM: r egular rhythm HEART SOUNDS: S1 normal heart sound present and S2 normal heart sound present GI: COMMON NORMALS: Normal to inspection, nondistended, normoactive bowel sounds present and non-tender Extremity: COMMON NORMALS: no pedal edema Neuro: COMMON NORMALS: patient oriented x3 Psych: COMMON NORMALS: mental status grossly normal Urinary Catheter Management: Huff: Cath Placed During This Visit: yes, but has since been removed by the nurse Reason for Continuing Indwelling Catheter: Acute Urinary Retention or Obstruction Urinary Catheter Date of Insertion: 06/29/24 Urinary Catheter Time of Insertion: 08:28 Date Urinary Catheter Removed: 06/11/24 Time Urinary Catheter Discontinued: 12:48 Data 07/01/24 03:53 07/01/24 03:53 A&P Assessment and plan (1) Acute respiratory failure with hypoxia: Plan Acute on Chronic Hypoxemic Respiratory Failure - The patient is an 84-year-old female with chronic hypoxemic respiratory failure on home oxygen presenting with acute worsening of hypoxemia and increased work of breathing, requiring BiPAP. - Was on solu-medrol - which was transitioned to PO prednisone - Continuing on Bronchodilators - Unfortunately noted to have increasing shortness of breath again today after brief improvement on the . Plan: 1. On Bipap today will full face mask - Wean as tolerated 2. Scheduled DuoNeb treatments every 6 hours. 3. Continue prednisone for now 4. Outpatient pulmonary consult follow up 5. Repeat Chest xray ordered. Congestive Heart Failure - Now with evidence of mild volume overload based on elevated proBNP and chest x-ray findings. Plan: 1. Continue with Lasix 40 mg daily today 2. Daily weights and strict I/Os. 3. Low salt diet, fluid restriction. 4. May consider additional IV lasix based on chest xray findings Coronary Artery Disease - Known history of CAD, currently asymptomatic. - Plan: 1. Continue home medication: Plavix 75 mg daily, Lipitor 80 mg daily, Ranexa, Imdur 2. Maintain on telemetry for arrhythmia monitoring. Paroxysmal Atrial Flutter/Fibrillation - History of paroxysmal atrial flutter/fib, currently in sinus rhythm. - Plan: 1. Continue amiodarone and Eliquis 2.5 mg BID. 2. Maintain on telemetry for arrhythmia monitoring. Insulin-dependent diabetes with hyperglycemia on admission. - Exacerbated with steroids - Plan: 1. Continue sliding scale for blood glucose control. 2. Diabetic diet, blood glucose monitoring ac/hs. PDMP PDMP Reviewed: Not Reviewed Attestations 2 Medical Necessity Statement*: Patient requires over 2 midnight stay for management of acute hypoxic respiratory failure, on bipap Coding Level of Care Code Acute Code for [facility] Diagnoses Acute respiratory failure with hypoxia J96.01
--- NOTE | 2024-07-01 12:54 | XRR_ITS ---
PROCEDURE INFORMATION: Exam: XR Chest Exam date and time: 07/01/2024 1:43 PM Age: 84 years old Clinical indication: Shortness of breath; Prior surgery; Surgery date: 6+ months; Surgery type: Cabg; Additional info: Increasing respiratory distress TECHNIQUE: Imaging protocol: Radiologic exam of the chest. Views: 1 view. COMPARISON: CR (CHEST, ) 06/29/2024 3:11 PM FINDINGS: Lungs: Mild interstitial pulmonary edema and left lower lobe atelectasis, improved compared with the previous study. Pleural spaces: Stable small bilateral pleural effusions. No pneumothorax. Heart/Mediastinum: Stable moderate enlargement of the cardiac silhouette. Mediastinal contours are unremarkable. Vasculature: Stable atherosclerotic calcifications in the visualized arteries. Bones/joints: Poststernotomy changes in the chest. Degenerative changes in the spine and shoulders. Bones are diffusely osteopenic. Multiple old left rib fractures. Osseous findings are stable. XR/XR chest 1V portable [id number] IMPRESSION: 1. Mild interstitial pulmonary edema and left lower lobe atelectasis, improved compared with the previous study. 2. Stable small bilateral pleural effusions. 3. Incidental/nonacute findings are listed in the report.
[2024-07-01 13:10] LABS: Glucose Point of Care 67 mg/dL (70-110)
[2024-07-01 13:40] LABS: Glucose Point of Care 144 mg/dL (70-110)
--- NOTE | 2024-07-01 13:46 | PC.SOCIAL ---
IMM Updated Updated pt on IMM. No questions voiced. Provided pt a copy. Initialed, dated, & timed a copy & placed in chart.
[2024-07-01 18:27] LABS: Glucose Point of Care 310 mg/dL (70-110)
[2024-07-01 20:42] LABS: Glucose Point of Care 297 mg/dL (70-110)
[2024-07-01] MEDS: insulin glargine 100 units/1 mL 20 UNIT SUBCUT (21:12)
[2024-07-01] MEDS: atorvastatin 40 mg Tablet 80 MG PO (21:12)
[2024-07-01] MEDS: clopidogrel 75 mg Tablet PO (21:12)
[2024-07-02] VITALS (12 sets, daily range): BP systolic 113–153; BP diastolic 54–74; PULSE 61–72; RESP 15–20; TEMP 36.3–36.7; O2SAT 93–100
[2024-07-02] MEDS: ipratropium-albuterol 3 mL Neb INHALATION ×4 (01:17→20:52)
[2024-07-02 04:59] LABS: Eosinophils % 0.1 %; Hematocrit 33.3 % (36-47); Lymphocytes # 0.7 10^3/uL (0.8-4.8); Lymphocytes % 5.8 %; Mean Corpuscular HGB Conc 31.2 g/dL (30-55); Mean Corpuscular Hemoglobin 26.5 pg (27-33); Mean Corpuscular Volume 84.7 fl (85-98); Mean Platelet Volume 12.1 fL (7.4-10.4); Monocytes # 0.9 10^3/uL (0.2-0.9); Monocytes % 7.9 %; Neutrophils # 9.98 10^3/uL (1.8-7.7); Neutrophils % 85.9 %; Nucleated Red Blood Cells % 0 %; Platelet Count 236 10^3/cmm (157-399); Red Blood Count 3.93 10^6/uL (3.85-5.65); Red Cell Distribution Width 13.9 % (12.1-15.1); White Blood Count 11.63 10^3/uL (3.29-11.43)
[2024-07-02 05:15] LABS: Blood Urea Nitrogen 33 mg/dL (8-23); Calcium 8.3 mg/dL (8.5-10.5); Carbon Dioxide 32 mmol/L (22-29); Chloride 97 mmol/L (98-107); Creatinine Clr Calc Pharmacy 48.6209; Glucose 268 mg/dL (65-115); Osmolality Calculated 303 mOsm/kg (285-295); Sodium 138 mmol/L (136-145)
[2024-07-02 06:22] LABS: Glucose Point of Care 289 mg/dL (70-110)
[2024-07-02] MEDS: insulin lispro 100 unit/1 mL SUBCUT ×4 (08:17→21:04)
[2024-07-02] MEDS: FUROsemide 40 mg Tablet PO ×2 (08:17→17:29)
[2024-07-02] MEDS: apixaban 5 mg Tablet 2.5 MG PO ×2 (08:17→21:04)
[2024-07-02] MEDS: isosorbide mononitrate ER 60 mg Tablet PO (08:18)
[2024-07-02] MEDS: predniSONE 20 mg Tablet 40 MG PO (08:18)
[2024-07-02] MEDS: ranolazine (12HR) 500 mg Tablet PO ×2 (08:18→17:29)
[2024-07-02] MEDS: amiodarone 200 mg Tablet PO (08:18)
[2024-07-02 11:14] LABS: Glucose Point of Care 315 mg/dL (70-110)
--- NOTE | 2024-07-02 15:05 | PC.NURSE ---
This nurse attempted to get pt up to chair and d/c gurrola at [address] Del Castillo, however, pt refused at this time and said she would closer to dinner.
--- NOTE | 2024-07-02 15:08 | P.PN_ITS ---
Subjective 2 Subjective: Hospital course, labs appreciated. Today morning on examination patient sitting comfortably in bed. Currently on 2 L of oxygen supplementation. Denies any nausea, vomiting, headache. Medications: Reviewed: Yes Vitals/I&O/Wt Last Vital Signs Temp 98.0 F 07/02/24 11:20 Pulse 67 07/02/24 13:44 Resp 18 07/02/24 13:44 BP 113/59 07/02/24 11:20 Pulse Ox 93 07/02/24 13:44 O2 Del Method Nasal Cannula 07/02/24 13:44 O2 Flow Rate 2 07/02/24 13:44 FiO2 35 07/01/24 13:01 07/02/24 07/02/24 07/02/24 06:59 14:59 22:59 Intake Total 100 / 920 360 / 360 Output Total 400 / 1850 Balance -300 / -930 360 / 360 Weight last 48 hrs Weight 78.109 kg Weight 80.399 kg Physical Exam 2 Const: COMMON NORMALS: no acute distress and patient oriented x3 Resp: COMMON NORMALS: normal respiratory effort, No retractions, No use of accessory muscles and clear to auscultation bilaterally AUSCULTATION: clear to auscultation bilaterally Cardio: COMMON NORMALS: regular rate, regular rhythm, S1 normal heart sound present and S2 normal heart sound present RATE: regular rate RHYTHM: r egular rhythm HEART SOUNDS: S1 normal heart sound present and S2 normal heart sound present GI: COMMON NORMALS: Normal to inspection, nondistended, normoactive bowel sounds present and non-tender Extremity: COMMON NORMALS: no pedal edema Neuro: COMMON NORMALS: patient oriented x3 Psych: COMMON NORMALS: mental status grossly normal Urinary Catheter Management: Huff: Cath Placed During This Visit: yes, but has since been removed by the nurse Reason for Continuing Indwelling Catheter: Accurate Measurement of Urinary Output in Critically Ill Patients Urinary Catheter Date of Insertion: 06/29/24 Urinary Catheter Time of Insertion: 08:28 Date Urinary Catheter Removed: 06/11/24 Time Urinary Catheter Discontinued: 12:48 Data 07/02/24 04:28 07/02/24 04:28 A&P Assessment and plan (1) Acute respiratory failure with hypoxia: (2) CKD (chronic kidney disease): Baseline creatinine 1.1-1.4. Currently creatinine at baseline. Medical reconciliation done for nephrotoxic drugs. (3) Congestive heart failure: (4) Paroxysmal A-fib: (5) Type 2 diabetes mellitus without complications: Plan Acute on Chronic Hypoxemic Respiratory Failure - The patient is an 84-year-old female with chronic hypoxemic respiratory failure on home oxygen presenting with acute worsening of hypoxemia and increased work of breathing, requiring BiPAP. Currently back to her baseline for supplementation of 2 L. Likely in setting of congestive heart failure and reactive airway disease. COVID-19/flu/RSV negative. Appreciate chest x-ray. No concern for consolidation. Oxygen supplementation keeping saturation over 88%. Continue prednisone 40 mg oral daily. DuoNeb every 6 hours, Pulmicort twice daily. Congestive Heart Failure Chronic history of systolic and diastolic congestive heart failure with a EF of 45 to 50% with grade 1 diastolic dysfunction, moderate MR back in March 2024. Most likely cause of acute fluid overload on admission. Fluid restriction less than 1500 cc. Oral Lasix 40 mg twice daily. Strict input output charting, daily weights. DC Huff catheter. Ambulation. Coronary Artery Disease - Known history of CAD, currently asymptomatic. - Plan: 1. Continue home medication: Plavix 75 mg daily, Lipitor 80 mg daily, Ranexa, Imdur 2. Maintain on telemetry for arrhythmia monitoring. Paroxysmal Atrial Flutter/Fibrillation - History of paroxysmal atrial flutter/fib, currently in sinus rhythm. - Plan: 1. Continue amiodarone and Eliquis 2.5 mg BID. 2. Maintain on telemetry for arrhythmia monitoring. Insulin-dependent diabetes with hyperglycemia on admission. - Exacerbated with steroids - Plan: 1. Continue with home dose of Lantus. Change Humalog to before meals and at bedtime from AC. Will plan to add Farxiga on discharge. Hypertension: Goal blood pressure less than 140/90 mmHg. Continue with home dose of Imdur. Continue to monitor. Discharge plan: Plan plan for discharge in next 24 hours if patient remains on baseline oxygen supplementation on increased oral diuretics, inhalation treatment and steroid taper. Full code Carb consistent cardiac diet Eliquis will be sufficient for DVT prophylaxis PDMP PDMP Reviewed: Not Reviewed Attestations 2 Medical Necessity Statement*: Requires further hospitalization for management of acute on chronic hypoxic respiratory failure in setting of congestive heart failure, reactive airway disease in a patient with history of CAD, paroxysmal A-fib, moderate MR Diagnoses Acute respiratory failure with hypoxia J96.01 CKD (chronic kidney disease) N18.9 Congestive heart failure I50.9 Paroxysmal A-fib I48.0 Type 2 diabetes mellitus without complications E11.9
[2024-07-02 16:40] LABS: Glucose Point of Care 229 mg/dL (70-110)
[2024-07-02 20:33] LABS: Glucose Point of Care 431 mg/dL (70-110)
[2024-07-02] MEDS: atorvastatin 40 mg Tablet 80 MG PO (21:04)
[2024-07-02] MEDS: clopidogrel 75 mg Tablet PO (21:04)
[2024-07-02] MEDS: insulin glargine 100 units/1 mL 20 UNIT SUBCUT (21:05)
--- NOTE | 2024-07-02 21:51 | PC.NURSE ---
pt incontinent x2, both times pt requested bedpan after the fact, pt encouraged to get out of bed and to bathroom to better empty bladder, pt states I already went and I am going home tomorrow, I don't need to go now .
[2024-07-03] VITALS: BP 143/70; PULSE 62; RESP 16; TEMP 36.9; O2SAT 95
[2024-07-03 02:48] VITALS: PULSE 63; RESP 20; O2SAT 93
[2024-07-03] MEDS: ipratropium-albuterol 3 mL Neb INHALATION ×3 (02:48→13:17)
[2024-07-03 03:38] VITALS: BP 136/68; PULSE 67; RESP 18; TEMP 36.5; O2SAT 93
[2024-07-03 05:24] LABS: Basophils % 0.1 %; Eosinophils # 0.2 10^3/uL (0.0-0.8); Eosinophils % 1.6 %; Hematocrit 36.4 % (36-47); Lymphocytes # 1.4 10^3/uL (0.8-4.8); Lymphocytes % 11.9 %; Mean Corpuscular HGB Conc 31.3 g/dL (30-55); Mean Corpuscular Hemoglobin 25.8 pg (27-33); Mean Corpuscular Volume 82.4 fl (85-98); Mean Platelet Volume 12.3 fL (7.4-10.4); Monocytes # 1.2 10^3/uL (0.2-0.9); Monocytes % 10.1 %; Neutrophils # 8.96 10^3/uL (1.8-7.7); Neutrophils % 75.9 %; Nucleated Red Blood Cells % 0 %; Platelet Count 299 10^3/cmm (157-399); Red Blood Count 4.42 10^6/uL (3.85-5.65); Red Cell Distribution Width 13.8 % (12.1-15.1)
[2024-07-03 05:50] LABS: Alanine Aminotransferase 14 U/L (0-33); Albumin Level 3.2 g/dL (3.5-5.2); Alkaline Phosphatase 100 U/L (35-105); Anion Gap 13.4 (5-19); Aspartate Amino Transferase 15 U/L (0-32); Blood Urea Nitrogen 32 mg/dL (8-23); Calcium 8.7 mg/dL (8.5-10.5); Carbon Dioxide 35 mmol/L (22-29); Chloride 96 mmol/L (98-107); Creatinine Clr Calc Pharmacy 44.2068; Globulin 3.4 g/dL (1.3-4.6); Glucose 146 mg/dL (65-115); Osmolality Calculated 302 mOsm/kg (285-295); Potassium 3.4 mmol/L (3.5-5.1); Sodium 141 mmol/L (136-145); Total Bilirubin 0.4 mg/dL (0.15-1.2); Total Protein 6.6 g/dL (6.6-8.7)
[2024-07-03 06:27] LABS: Glucose Point of Care 136 mg/dL (70-110)
[2024-07-03 08:00] VITALS: BP 160/80; PULSE 66; PULSE 79; RESP 18; RESP 28; TEMP 36.6; O2SAT 92
[2024-07-03] MEDS: isosorbide mononitrate ER 60 mg Tablet PO (09:43)
[2024-07-03] MEDS: predniSONE 20 mg Tablet 40 MG PO (09:43)
[2024-07-03] MEDS: apixaban 5 mg Tablet 2.5 MG PO (09:43)
[2024-07-03] MEDS: ranolazine (12HR) 500 mg Tablet PO (09:43)
[2024-07-03] MEDS: amiodarone 200 mg Tablet PO (09:43)
[2024-07-03] MEDS: FUROsemide 40 mg Tablet PO (09:43)
--- NOTE | 2024-07-03 10:05 | PC.SOCIAL ---
IMM Updated Updated pt on IMM. No questions voiced. Provided pt a copy. Initialed, dated, & timed copy in chart.
--- NOTE | 2024-07-03 10:15 | P.DS_ITS ---
Discharge Providers Date of Admission: 06/28/24 18:01 Date of Discharge: July 03, 2024 Attending Provider at Admission: Mario Castillo Attending Provider at Discharge: Christiano Richard MD Primary Care Provider: Antonio Delgado MD Diagnoses at Discharge Discharge Diagnosis (1) Acute respiratory failure with hypoxia: Status: Acute (2) CKD (chronic kidney disease): Status: Chronic (3) Congestive heart failure: Status: Acute (4) Paroxysmal A-fib: Status: Acute (5) Type 2 diabetes mellitus without complications: Status: Acute Reason for Visit Reason for Visit: sob, weakness Brief History: History as per HPI: 84-year-old female with a past medical h istory of paroxysmal atrial flutter/fib, coronary artery disease, congestive heart failure, and chronic hypoxemic respiratory failure on 3 L presents with shortness of breath. She was recently hospitalized from 06/07/2024 to 06/11/2024 for hypoxic respiratory failure due to healthcare-associated pneumonia and CHF exacerbation requiring antibiotics and IV diuretics. She was also admitted from 05/26/2024 to 05/28/2024. The patient reports she was doing well after discharge on 06/11/2024, but started feeling short of breath again this morning. She notes using her oxygen at home, but removes it when going to the restroom. She denies any prolonged periods without oxygen.. She describes her shortness of breath worsening throughout the day, improving briefly before worsening again upon returning home. She confirms taking her diuretics. She denies leg swelling, cough, hemoptysis, fever, chills, nausea, or vomiting. On arrival, she was wheezing and required up to 5 L of oxygen before being placed on BiPAP. Initial evaluation in the ER revealed: - Laboratory Findings: WBC 10.9, hemoglo bin 10.7, hematocrit 35.3, platelets 279, sodium 138, potassium 5.1, chloride 99, bicarb 26, BUN 21, creatinine 1.1, glucose 364, proBNP 4656 (up from 3912 two weeks ago). COVID-19, RSV, and flu were negative. - Imaging Studies: Chest x-ray showing c ontinued lower lobe atelectasis and possible pulmonary edema. - Arterial Blood Gas: pH 7.33, pCO2 54, pO2 62, bicarb 28.6. The patient was treated with Solu-Medrol 125 mg and DuoNeb in the ER. She is currently on BiPAP 20/10 with FiO2 40%, rate 14, and good tidal volumes. She rep orts feeling better on BiPAP. Hospital Course Hospital Course Patient was admitted to the hospital for evaluation and management of acute on chronic hypoxic respiratory failure in setting of acute on chronic decompensated systolic heart failure along with concerns for COPD exacerbation. She was started on IV diuresis, steroids and nebulization treatment. Patient responded well to the treatment and has been back to her baseline oxygen supplementation for more than 24 hours. During hospitalization she did have hyperglycemia pertaining to high-dose steroids which have been tapered down. She has been discharged in hemodynamically stable condition on increased dose of Lasix, of steroid taper and nebulization treatment. Physical Exam Const: COMMON NORMALS: no acute distress and patient oriented x3 Resp: COMMON NORMALS: normal respiratory effort, No retractions, No use of accessory muscles and clear to auscultation bilaterally AUSCULTATION: clear to auscultation bilaterally Cardio: COMMON NORMALS: regular rate, regular rhythm, S1 normal heart sound present and S2 normal heart sound present RATE: regular rate RHYTHM: regular rhythm HEART SOUNDS: S1 normal heart sound present and S2 normal heart sound present GI: COMMON NORMALS: Normal to inspection, nondistended, normoactive bowel sounds present and non-tender Extremity: COMMON NORMALS: no pedal edema Neuro: COMMON NORMALS: patient oriented x3 Psych: COMMON NORMALS: mental status grossly normal Urinary Catheter Management: Huff: Cath Placed During This Visit: yes, but has since been removed by the nurse Reason for Continuing Indwelling Catheter: Decision to DC Catheter Urinary Catheter Date of Insertion: 06/29/24 Urinary Catheter Time of Insertion: 08:28 Date Urinary Catheter Removed: 07/02/24 Time Urinary Catheter Discontinued: 17:26 Discharge Data Studies Completed and Pending Completed Studies During Hospitalization Category Date Time Status XR chest 1V [id number] Routine Exams 06/29/24 14:52 Completed XR chest 1V portable [id number] Routine Exams 07/01/24 12:54 Completed XR chest 1V portable [id number] Stat Exams 06/28/24 15:10 Completed Radiology Impressions Chest X-Ray 07/01/24 12:54 IMPRESSION: 1. Mild interstitial pulmonary edema and left lower lobe atelectasis, improved compared with the previous study. 2. Stable small bilateral pleural effusions. 3. Incidental/nonacute findings are listed in the report. Laboratory Results WBC 11.80 10^3/uL (3.29-11.43) H 07/03/24 04:28 RBC 4.42 10^6/uL (3.85-5.65) 07/03/24 04:28 Hgb 11.40 g/dL (11.27-16.99) 07/03/24 04:28 Hct 36.4 % (36-47) 07/03/24 04:28 MCV 82.4 fl (85-98) L 07/03/24 04:28 MCH 25.8 pg (27-33) L 07/03/24 04:28 MCHC 31.3 g/dL (30-55) 07/03/24 04:28 RDW 13.8 % (12.1-15.1) 07/03/24 04:28 Plt Count 299 10^3/cmm (157-399) 07/03/24 04:28 MPV 12.3 fL (7.4-10.4) H 07/03/24 04:28 Neut % (Auto) 75.9 % 07/03/24 04:28 Lymph % (Auto) 11.9 % 07/03/24 04:28 Ballard % (Auto) 10.1 % 07/03/24 04:28 Eos % (Auto) 1.6 % 07/03/24 04:28 Baso % (Auto) 0.1 % 07/03/24 04:28 Neut # (Auto) 8.96 10^3/uL (1.8-7.7) H 07/03/24 04:28 Lymph # (Auto) 1.4 10^3/uL (0.8-4.8) 07/03/24 04:28 Ballard # (Auto) 1.2 10^3/uL (0.2-0.9) H 07/03/24 04:28 Eos # (Auto) 0.2 10^3/uL (0.0-0.8) 07/03/24 04:28 Baso # (Auto) 0.0 10^3/uL (0.0-0.1) 07/03/24 04:28 Nucleated RBC % (auto) 0 % 07/03/24 04:28 Nucleated RBCs # 0.0 /100WBC 07/03/24 04:28 PT 13.40 SECONDS (12.1-14.9) 06/28/24 15: INR 0.95 (0.8-1.2) 06/28/24 15: Specimen Type Arterial 06/29/24 04:29 Sample Site Brachial, right 06/29/24 04:29 ABG pH 7.34 (7.35-7.45) L 06/29/24 04: ABG pCO2 42.2 mmHg (35-45) 06/29/24 04: ABG pO2 83.9 mmHg (80.0-100.0) 06/29/24 04: ABG PO2/FiO2 Ratio 186 06/29/24 04: ABG HCO3 22.5 mmol/L (22-26) 06/29/24 04: ABG O2 Saturation 96.5 06/29/24 04: ABG Base Excess -3.2 mmol/L (-2.0-2.0) L 06/29/24 04: Tanner Test N/a 06/29/24 04:29 A-a O2 Gradient 23.7 mmHg (5-10) H 06/29/24 04:29 Hematocrit 35.7 % (37-47) L 06/29/24 04:29 Hgb O2 Saturation 94.6 % (95-100) L 06/29/24 04:29 Carboxyhemoglobin 0.9 %THgb (0.4-20.1) 06/29/24 04: Methemoglobin 1.1 % (0.4-1.5) 06/29/24 04:29 Total Hemoglobin 11.7 g/dL (12-16) L 06/29/24 04:29 Sodium 138.0 mmol/L (131-143) 06/29/24 04:29 Potassium 4.4 mmol/L (3.5-5.0) 06/29/24 04: Glucose 502.0 mg/dL (70-115) H 06/29/24 04:29 Ionized Calcium 1.2 mmol/L (1.1-1.4) 06/29/24 04:29 O2 Delivery Device Bipap 06/29/24 04:29 O2 Liters/Min 2.0 % 06/28/24 15:12 FiO2 45.0 % 06/29/24 04:29 Employment Advisor ID [email or web address] 06/29/24 04:29 Sodium 141 mmol/L (136-145) 07/03/24 04:28 Potassium 3.4 mmol/L (3.5-5.1) L 07/03/24 04:28 Chloride 96 mmol/L (98-107) L 07/03/24 04:28 Carbon Dioxide 35 mmol/L (22-29) H 07/03/24 04:28 Anion Gap 13.4 (5-19) 07/03/24 04:28 BUN 32 mg/dL (8-23) H 07/03/24 04:28 Creatinine 1.2 mg/dL (0.5-0.9) H 07/03/24 04:28 GFR Calculation Not Reportable 07/03/24 04:28 Glucose 146 mg/dL (65-115) H 07/03/24 04:28 POC Glucose 136 mg/dL (70-110) H 07/03/24 06:24 Calculated Osmolality 302 mOsm/kg (285-295) H 07/03/24 04:28 Calcium 8.7 mg/dL (8.5-10.5) 07/03/24 04:28 Total Bilirubin 0.4 mg/dL (0.15-1.2) 07/03/24 04:28 AST 15 U/L (0-32) 07/03/24 04:28 ALT 14 U/L (0-33) 07/03/24 04:28 Alkaline Phosphatase 100 U/L (35-105) 07/03/24 04:28 NT-Pro-B Natriuret Pep 4656 pg/mL (0-450) H 06/28/24 15:29 Total Protein 6.6 g/dL (6.6-8.7) 07/03/24 04:28 Albumin 3.2 g/dL (3.5-5.2) L 07/03/24 04:28 Globulin 3.4 g/dL (1.3-4.6) 07/03/24 04:28 Coronavirus (PCR) Negative (Negative) 06/28/24 15:47 Influenza A (PCR) Negative (Negative) 06/28/24 15:47 Influenza Type B (PCR) Negative (Negative) 06/28/24 15:47 RSV (PCR) Negative (Negative) 06/28/24 15:47 Vitals Last Vital Signs Temp 98 F 07/03/24 08:00 Pulse 79 07/03/24 08:00 Resp 28 H 07/03/24 08:00 BP 160/80 07/03/24 08:00 Pulse Ox 92 07/03/24 08:00 O2 Del Method Nasal Cannula 07/03/24 08:00 O2 Flow Rate 2 07/03/24 08:00 FiO2 35 07/01/24 13:01 Discharge Plan Discharge Patient Disposition: Home Health Service Condition: Stable Prescriptions: New losartan 25 mg tablet 25 mg PO DAILY Qty: 30 0RF Continued ranolazine 500 mg tablet extended release 12 hr 500 mg PO BID Qty: 60 0RF clopidogrel 75 mg tablet 75 mg PO BEDTIME Qty: 90 3RF tramadol 50 mg tablet 50 mg PO BEDTIME nitroglycerin 0.4 mg tablet, sublingual 0.4 mg buccal PRN PRN (Reason: Chest Pain) furosemide 40 mg tablet 40 mg PO BID@0800,1400 30 Days Qty: 60 0RF atorvastatin 40 mg tablet 80 mg PO BEDTIME Qty: 90 3RF potassium chloride [Klor-Con M20] 20 mEq tablet,ER particles/crystals 20 meq PO BID 30 Days Qty: 30 3RF isosorbide mononitrate 60 mg tablet extended release 24 hr 60 mg PO DAILY Eliquis 2.5 mg tablet 2.5 mg PO BID 30 Days Qty: 60 0RF Rx Instructions: start tonight 9pm insulin aspart U-100 [Novolog FlexPen U-100 Insulin] 100 unit/mL (3 mL) insulin pen See Rx Instructions .ROUTE .COMPLEX Qty: 15 0RF Rx Instructions: Inject 3 times daily, subcut, after meals, based on sliding scale provided insulin degludec [Tresiba FlexTouch U-200] 200 unit/mL (3 mL) insulin pen 20 unit SUBCUT DAILY Qty: 9 0RF Changed amiodarone [Pacerone] 200 mg Tablet 200 mg PO DAILY 30 Days Qty: 30 0RF Rx Instructions: 200 mg orally; Discharge Orders: Discharge Order (Routine); Ordered 07/03/24 Ordered By: Christiano Richard Referrals: [facility] [Outside] Delgado,Antonio Wali, MD [Primary Care Provider] - 7-10 days (We have notified your physician's clinic of the need for a follow-up appointment to be scheduled. If you have not heard from them within the next 2 business days, please call them directly. ) Discharge Diet: Cardiac Discharge Activity: Resume usual activity and Increase activity as tolerated Patient Instructions: Opioid Safety Activity Restrictions/Additional Instructions: Restrict fluid intake to less than 1500 cc, salt intake to less than 2 g daily. Advised to check his weight daily at home. Is advised that weight today would be the dry weight and if body weight increases by around 5 pounds, patient is to take an extra dose of Lasix daily till body weight comes down to weight today. If not able to come down to dry body weight in 1 week, then is to call cardiology office for further recommendations. Patient was counseled in detail to take medications regularly as prescribed. Check your blood pressure daily at home maintain a blood pressure diary. Losartan 25 mg oral daily has been added to your medication list. Goal blood pressure is less than 140/90 mmHg. Discharge Attestations Time Spent in Discharge Care*: greater than 30 min Specific Discharge Activities: educating patient, discussing with pcp/other providers, discussing with casey saw operator/social workers/dc planners, documenting/other paperwork and evaluating patient/reviewing data Status at Discharge: Cognitive status at discharge: cognitively intact , Behavioral status at discharge: cooperative , Functional status at discharge: uses cane/walker , Overall status at discharge: patient is back to baseline Quality Metrics Clinical Quality Measures [ No reported AMI, CVA or VTE this stay] Coding Level of Care Code 21044 Total time (in minutes) for Discharge: 60 Diagnoses Acute respiratory failure with hypoxia J96.01 CKD (chronic kidney disease) N18.9 Congestive heart failure I50.9 Paroxysmal A-fib I48.0 Type 2 diabetes mellitus without complications E11.9
[2024-07-03 11:39] LABS: Glucose Point of Care 210 mg/dL (70-110)
[2024-07-03 12:00] VITALS: BP 155/69; PULSE 69; RESP 20; TEMP 36.7; O2SAT 92
[2024-07-03] MEDS: insulin lispro 100 unit/1 mL SUBCUT (12:37)
[2024-07-03 13:18] VITALS: PULSE 79; RESP 18; O2SAT 93
== END 2024-07-03 14:45 | disposition home health service (06) | DRG 189 ==
LOC: ER 16:40 → MEDSURG 18:01
PROVIDERS: Internal Medicine; Admitting Provider Hospitalist; Emergency Provider Emergency Medicine; PCP Family Medicine; Visit Provider Student in an Organized Health Care Education/Training Program
DX: J96.21 Acute and chronic respiratory failure with hypoxia (principal); I50.23 Acute on chronic systolic (congestive) heart failure; J44.1 Chronic obstructive pulmonary disease with (acute) exacerbation; E11.22 Type 2 diabetes mellitus with diabetic chronic kidney disease; N18.9 Chronic kidney disease, unspecified; Z79.4 Long term (current) use of insulin; I48.0 Paroxysmal atrial fibrillation; Z79.01 Long term (current) use of anticoagulants; I25.10 Atherosclerotic heart disease of native coronary artery without angina pectoris; E11.65 Type 2 diabetes mellitus with hyperglycemia; T38.0X5A Adverse effect of glucocorticoids and synthetic analogues, initial encounter; E78.5 Hyperlipidemia, unspecified; I25.2 Old myocardial infarction; Z95.1 Presence of aortocoronary bypass graft; Z79.02 Long term (current) use of antithrombotics/antiplatelets
CPT/HCPCS: 36415; 36416; 36600; 51702; 71045; 80048; 80051; 80053; 82330; 82805; 82962; 83880; 85025; 85610; 87637; 93005; 94640; 94660; 94664; 96372; 96374; 99291; J1815; J1940; J2060; J2919; J7512; J7613

== ENCOUNTER 2024-07-18 06:23 | Inpatient (IN) | payer MEDICARE, SELFPAY ==
[2024-07-18] VITALS (102 sets, daily range): BP systolic 91–146; BP diastolic 40–86; PULSE 59–91; RESP 12–42; TEMP 35.9–36.4; O2SAT 95–100; BMI 34.4
--- NOTE | 2024-07-18 06:28 | ECG_ITS ---
[employer] Test Date: 2024-07-18 Pat Name: Sally Henderson Department: Room: Gender: Female Rental [employer]: : 1940 Requested By: Thomas Benavidez Order Number: [id number] Leonora MD: Boaz Jaramillo M.D. Measurements Intervals [place] Rate: 80 P: -21 TN: 154 QRS: 77 QRSD: 122 T: -54 QT: 359 QTc: 415 Interpretive Statements SINUS RHYTHM WITH OCCASIONAL VENTRICULAR PREMATURE COMPLEXES RIGHT BUNDLE BRANCH BLOCK [120+ ms QRS DURATION, UPRIGHT V1, 40+ ms S IN I/aVL/V4/V5/V6] MODERATE T-WAVE ABNORMALITY, CONSIDER INFERIOR ISCHEMIA [-0.1+ mV T-WAVE IN II/aVF] Compared to ECG 06/28/2024 14:58:57 T-wave abnormality now present Possible ischemia now present Indeterminate axis no longer present ST (T wave) deviation no longer present Electronically Signed On 07-20-2024 18:06:35 JACKET CHANGER by Boaz Jraamillo M.D. [email or web address]
--- NOTE | 2024-07-18 06:32 | XRR_ITS ---
PROCEDURE INFORMATION: Exam: XR Chest Exam date and time: 07/18/2024 6:33 AM Age: 84 years old Clinical indication: Device placement; Ett placement (vent status); Additional info: Dyspnea/cough TECHNIQUE: Imaging protocol: Radiologic exam of the chest. Views: 1 view. COMPARISON: CR XR chest 1V portable [id number] 07/01/2024 1:43 PM FINDINGS: Tubes, catheters and devices: Endotracheal tube is 3.5 cm above lupe. Enteric catheter in the stomach. Lungs: Diffuse interstitial prominence. No consolidation. Pleural spaces: Small pleural effusions. Heart/Mediastinum: Mild to moderate cardiac enlargement. CABG. Bones/joints: Unremarkable. XR/XR chest 1V portable [id number] IMPRESSION: Unremarkable endotracheal tube position.
--- NOTE | 2024-07-18 06:33 | PC.NURSE ---
pt intubated at [address] Nava with RT present. pt intubated with a 8ET at secured 21 at the teeth
[2024-07-18] MEDS: fentaNYL 1,000 MCG/100 ML BAG 5 MCG IV (06:36)
[2024-07-18 06:38] LABS: Basophils # 0.1 10^3/uL (0.0-0.1); Basophils % 0.4 %; Eosinophils # 0.3 10^3/uL (0.0-0.8); Hematocrit 37.6 % (36-47); Lymphocytes # 4.1 10^3/uL (0.8-4.8); Lymphocytes % 30.3 %; Mean Corpuscular HGB Conc 30.6 g/dL (30-55); Mean Corpuscular Hemoglobin 26.2 pg (27-33); Mean Corpuscular Volume 85.6 fl (85-98); Mean Platelet Volume 11.9 fL (7.4-10.4); Monocytes # 1.2 10^3/uL (0.2-0.9); Monocytes % 8.6 %; Neutrophils # 7.86 10^3/uL (1.8-7.7); Neutrophils % 58.3 %; Nucleated Red Blood Cells % 0 %; Platelet Count 309 10^3/cmm (157-399); Red Blood Count 4.39 10^6/uL (3.85-5.65); Red Cell Distribution Width 14.3 % (12.1-15.1); White Blood Count 13.45 10^3/uL (3.29-11.43)
[2024-07-18] MEDS: midazolam hcl 100 MG/100 ML BAG IV (06:38)
[2024-07-18] MEDS: dexamethasone 10 mg/mL INJ IVP (06:39)
[2024-07-18] MEDS: magnesium sulfate premix 1 GM/100 ML PIGGYBACK IV (06:40)
--- NOTE | 2024-07-18 06:40 | W.ED.SOB ---
HPI - SOB/Dyspnea General: Chief Complaint: Shortness of Breath/Dyspnea Stated Complaint: resp distress Time Seen by Provider: 07/18/24 06:32 History of Present Illness: HPI Narrative: 84-year-old female arrives in acute respiratory distress with CPAP in place. EMS reports she did not want to be intubated. Patient has a longstanding history of coronary artery disease she was in acute respiratory distress impending respiratory failure. She was awake and alert enough to tell us that she did not have any chest pain or abdominal pain she was very short of breath and had been coughing. Advised patient that I felt with the amount of respiratory distress that she had if we did not intubate her she may not survive this episode. That we could try BiPAP but I doubt it that it would meet her needs currently. She confirmed to myself and the nurse that she wished to be intubated. She was then intubated via RSI with started on sedation Associated symptoms: Reports fever(s); Deny abdominal pain or chest pain Related Data Home Medications ?Medication ?Instructions ?Recorded ?Confirmed nitroglycerin 0.4 mg sublingual 0.4 mg buccal PRN PRN Chest Pain 04/10/24 07/18/24 tablet isosorbide mononitrate 60 mg 60 mg PO DAILY 06/07/24 07/18/24 tablet,extended release 24 hr amiodarone 200 mg tablet 200 mg PO DAILY 07/18/24 07/18/24 atorvastatin 40 mg tablet 40 mg PO QPM 07/18/24 07/18/24 tramadol 50 mg tablet 50 mg PO Q6H 07/18/24 07/18/24 Previous Rx's ?Medication ?Instructions ?Recorded clopidogrel 75 mg tablet 75 mg PO BEDTIME #90 tabs 03/27/24 ranolazine 500 mg tablet,extended 500 mg PO BID #60 tabs 03/27/24 release,12 hr furosemide 40 mg tablet 40 mg PO BID@0800,1400 30 days #60 05/28/24 tabs potassium chloride 20 mEq 20 meq PO BID 30 days #30 tabs 05/28/24 tablet,extended release(part/cryst) (Klor-Con M) insulin aspart U-100 100 unit/mL See Rx Instructions .Route 06/11/24 (3 mL) subcutaneous pen (Novolog .COMPLEX #15 mL FlexPen U-100 Insulin aspart) insulin degludec 200 unit/mL (3 20 unit (0.1 mL) SUBCUT DAILY #9 mL 06/11/24 mL) subcutaneous pen (Tresiba FlexTouch U-200 insulin) losartan 25 mg tablet 25 mg PO DAILY #30 tabs 07/03/24 Allergies Allergy/AdvReac Type Severity Reaction Status Date / Time No Known Allergies Allergy Verified 07/18/24 06:33 Review of Systems Const: Reports: fever(s) and chills Card: Denies: chest pain Resp: Reports: dyspnea and non-productive cough GI: Denies: abdominal pain PFSH ED PFSH: Medical History CAD (coronary artery disease) Type 2 diabetes mellitus without complications Paroxysmal A-fib CKD (chronic kidney disease) CHF (congestive heart failure) Acute kidney injury superimposed on chronic kidney disease Acute respiratory failure with hypoxia and hypercapnia Respiratory arrest Non-STEMI (non-ST elevated myocardial infarction) Coronary artery disease Hyperglycemia Hyperkalemia Elevated brain natriuretic peptide (BNP) level Hyperglycemia Hypoxic respiratory failure Dyslipidemia Contrast-induced nephropathy Acute [place] Essential (primary) hypertension Surgical History Hx of hysterectomy Hx of CABG Family History Unknown No problems noted. Social History Smoking and tobacco/nicotine status: former use of tobacco/nicotine Alcohol intake: never Substance/Drug Use: never Physical Exam Const: COMMON NORMALS: alert GENERAL APPEARANCE: disheveled, ill appearing and diaphoretic NUTRITIONAL APPEARANCE: obese ORIENTATION/CONSCIOUSNESS: Yes awake HENMT: COMMON NORMALS: normocephalic, atraumatic and hearing grossly normal bilaterally HEAD & SCALP: normocephalic and atraumatic Resp: EFFORT & INSPECTION: Yes abnormal respiratory pattern, Yes tachypneic, Yes labored, Yes grunting, Yes uses accessory muscles and Yes audible wheezes Cardio: COMMON NORMALS: regular rhythm RATE: tachycardic RHYTHM: regular rhythm GI: COMMON NORMALS: Soft to palpation and No hepatosplenomegaly present AUSCULTATION: Yes normoactive bowel sounds PALPATION: Yes Soft to palpation, No Tenderness to palpation present (GI), No Guarding due to palpation present (GI) and Yes No hepatosplenomegaly present Extremity: OTHER: Extremities mottled with 2+ lower extremity edema Neuro: SENSORIUM/ORIENTATION: Yes alert Skin: COMMON NORMALS: no rashes or lesions noted GENERAL SKIN EXAM: no rashes or lesions noted Procedures Intubation Time out performed: Yes sedative: Etomidate Mg Given: 20 paralytic: Succinylcholine Mg Given: 100 ET Tube Size: 8 ET Tube Uncuffed: No Tube Secured Depth (cm): 21 Tube Secured Location: teeth Tube Placement Confirmation: visualized tube passing through cords, equal breath sounds bilaterally, no breath sounds over epigastrium and confirmation by capnometry Patient Tolerated Procedure: well Intubation Complications: none Course Vital Signs: Vital signs: Vital Signs Temperature 97.2 F L 07/20/24 04:52 Pulse Rate 73 07/20/24 04:00 Respiratory Rate 18 07/20/24 04:00 Blood Pressure 119/67 07/20/24 04:00 Pulse Oximetry 95 07/20/24 04:00 Oxygen Delivery Me thod Nasal Cannula 07/20/24 04:00 Oxygen Flow Rate 1 07/20/24 04:00 Fraction of Inspir ed Oxygen 35 07/19/24 09:03 MDM - SOB/Dyspnea Medical Decision Making On arrival patient in impending respiratory failure after brief discussion with her did get some history last few days she had been short of breath and coughing suspect it is exacerbation or COPD based on her chest x-ray also suspect that she has some components of congestive heart failure she was given Lasix. Started on sedation will cover with antibiotics. BNP elevated at 8326. IV antibiotics and steroid treatments as well. Troponin level elevated. While there are some EKG changes with some ST depression compared to previous EKGs there is no ST elevation I reviewed with cardiology. Dr. Jaramillo is quite familiar with this patient he did not feel any intervention was possible based on his last cardiac cath catheterization with her he recommends aggressive medical management and he will follow along as well. He did not feel that there was any acute needs to take the patient to the [facility] at this time. Recommends trending troponins first troponin is elevated likely consistent with ischemic demand from her heart failure. ST depression noted in lateral precordial leads. Discussed with hospitalist orders written for admission Medical Records I reviewed the patient's medical records. Lab Data 07/19/24 03:49 07/19/24 03:49 Labs/Radiology: Radiology Impressions Chest X-Ray 07/18/24 06:32 IMPRESSION: Unremarkable endotracheal tube position. Laboratory Results WBC 13.45 10^3/uL (3.29-11.43) H 07/18/24 06:27 RBC 4.39 10^6/uL (3.85-5.65) 07/18/24 06:27 Hgb 11.50 g/dL (11.27-16.99) 07/18/24 06:27 Hct 37.6 % (36-47) 07/18/24 06:27 MCV 85.6 fl (85-98) 07/18/24 06:27 MCH 26.2 pg (27-33) L 07/18/24 06:27 MCHC 30.6 g/dL (30-55) 07/18/24 06:27 RDW 14.3 % (12.1-15.1) 07/18/24 06:27 Plt Count 309 10^3/cmm (157-399) 07/18/24 06:27 MPV 11.9 fL (7.4-10.4) H 07/18/24 06:27 Neut % (Auto) 58.3 % 07/18/24 06:27 Lymph % (Auto) 30.3 % 07/18/24 06:27 [place] % (Auto) 8.6 % 07/18/24 06:27 Eos % (Auto) 2.0 % 07/18/24 06:27 Baso % (Auto) 0.4 % 07/18/24 06:27 Neut # (Auto) 7.86 10^3/uL (1.8-7.7) H 07/18/24 06:27 Lymph # (Auto) 4.1 10^3/uL (0.8-4.8) 07/18/24 06:27 [place] # (Auto) 1.2 10^3/uL (0.2-0.9) H 07/18/24 06:27 Eos # (Auto) 0.3 10^3/uL (0.0-0.8) 07/18/24 06:27 Baso # (Auto) 0.1 10^3/uL (0.0-0.1) 07/18/24 06:27 Nucleated RBC % (auto) 0 % 07/18/24 06:27 Nucleated RBCs # 0.0 /100WBC 07/18/24 06:27 Specimen Type Arterial 07/18/24 08:03 Sample Site Brachial, right 07/18/24 08:03 ABG pH 7.36 (7.35-7.45) 07/18/24 08:03 ABG pCO2 48.5 mmHg (35-45) H 07/18/24 08:03 ABG pO2 62.7 mmHg (80.0-100.0) L 07/18/24 08:03 ABG PO2/FiO2 Ratio 104 07/18/24 08:03 ABG HCO3 27.2 mmol/L (22-26) H 07/18/24 08:03 ABG O2 Saturation 91.8 07/18/24 08:03 ABG Base Excess 1.2 mmol/L (-2.0-2.0) 07/18/24 08:03 Tanner Test Pos 07/18/24 08:03 A-a O2 Gradient 39.8 mmHg (5-10) H 07/18/24 08:03 Hematocrit 32.9 % (37-47) L 07/18/24 08:03 Hgb O2 Saturation 89.9 % (95-100) L 07/18/24 08:03 Carboxyhemoglobin 0.9 %THgb (0.4-20.1) 07/18/24 08:03 Methemoglobin 1.2 % (0.4-1.5) 07/18/24 08:03 Total Hemoglobin 10.7 g/dL (12-16) L 07/18/24 08:03 Sodium 139.0 mmol/L (131-143) 07/18/24 08:03 Potassium 3.6 mmol/L (3.5-5.0) 07/18/24 08:03 Glucose 283.0 mg/dL (70-115) H 07/18/24 08:03 Ionized Calcium 1.4 mmol/L (1.1-1.4) 07/18/24 08:03 O2 Delivery Device Vent 07/18/24 08:03 FiO2 60.0 % 07/18/24 08:03 Tidal Volume 0.45 07/18/24 08:03 PEEP 6.0 cmH20 07/18/24 08:03 Chinchilla Farmer ID [place] 07/18/24 08:03 Sodium 139 mmol/L (136-145) 07/18/24 06:27 Potassium 5.3 mmol/L (3.5-5.1) H 07/18/24 06:27 Chloride 101 mmol/L (98-107) 07/18/24 06:27 Carbon Dioxide 27 mmol/L (22-29) 07/18/24 06:27 Anion Gap 16.3 (5-19) 07/18/24 06:27 BUN 27 mg/dL (8-23) H 07/18/24 06:27 Creatinine 1.0 mg/dL (0.5-0.9) H 07/18/24 06:27 GFR Calculation Not Reportable 07/18/24 06:27 Glucose 392 mg/dL (65-115) H 07/18/24 06:27 POC Glucose 347 mg/dL (70-110) H 07/18/24 10:03 Calculated Osmolality 309 mOsm/kg (285-295) H 07/18/24 06:27 Lactic Acid 2.3 mmol/L (0.5-2.2) H 07/18/24 06:27 Lactic Acid (Sepsis) 5.6 mmol/L (0.5-2.2) H* 07/18/24 10:04 Calcium 9.2 mg/dL (8.5-10.5) 07/18/24 06:27 Magnesium 2.4 mg/dL (1.7-2.3) H 07/18/24 06:27 Total Bilirubin 0.2 mg/dL (0.15-1.2) 07/18/24 06:27 AST 49 U/L (0-32) H 07/18/24 06:27 ALT 31 U/L (0-33) 07/18/24 06:27 Alkaline Phosphatase 132 U/L (35-105) H 07/18/24 06:27 Troponin T Baseline 40 ng/L (0-10) H 07/18/24 06:27 Troponin T 120 Minute 37.89 ng/L (0-10) H 07/18/24 08:22 Delta Troponin T -2.11 ABS# (0-10) L 07/18/24 08:22 NT-Pro-B Natriuret Pep 8326 pg/mL (0-450) H 07/18/24 06:27 Total Protein 6.9 g/dL (6.6-8.7) 07/18/24 06:27 Albumin 3.8 g/dL (3.5-5.2) 07/18/24 06:27 Globulin 3.1 g/dL (1.3-4.6) 07/18/24 06:27 Urine Color Yellow (Yellow) 07/18/24 06:50 Urine Appearance Clear (CLEAR) 07/18/24 06:50 Urine pH 5.0 (5-7) 07/18/24 06:50 Ur Specific Monitor 1.010 (1.005-1.030) 07/18/24 06:50 Urine Protein Negative (Negative) 07/18/24 06:50 Urine Glucose (UA) 2+ (Normal) H 07/18/24 06:50 Urine Ketones Negative (Negative) 07/18/24 06:50 Urine Blood Negative (Negative) 07/18/24 06:50 Urine Nitrate Negative (Negative) 07/18/24 06:50 Urine Bilirubin Negative (Negative) 07/18/24 06:50 Urine Urobilinogen 0.2 mg/dL (Negative) 07/18/24 06:50 Ur Leukocyte Esterase Negative (Negative) 07/18/24 06:50 Amorphous Sediment Not Reportable 07/18/24 06:50 Serum Ketones Negative (Negative) 07/18/24 06:27 Influenza A (PCR) Negative (Negative) 07/18/24 06:55 Influenza Type B (PCR) Negative (Negative) 07/18/24 06:55 RSV (PCR) Negative (Negative) 07/18/24 06:55 SARS-CoV-2 (PCR) Negative (Negative) 07/18/24 06:55 All radiology interpretation(s) finalized by discharge Critical Care Time Critical Care Time: Critical Care Time: Yes Total Critical Care Time: 45 Attestation: The high probability of a clinically significant, sudden or life threatening deterioration of the patient's cardiovascular respiratory system(s) required my full and direct attention, intervention and personal management. The critical care time is as shown. This time is in addition to time spent performing any reported procedures but includes the following: [x] Data and vital sign review and interpretation [x] Patient assessment, examination and intervention [x] Documentation [x] Medication orders and management Discharge Plan Discharge Patient Disposition: Admitted As Inpatient Admit Provider: Willian Richard Clinical Impression: CKD (chronic kidney disease), Paroxysmal A-fib, Type 2 diabetes mellitus without complications, Troponin level elevated, CAD (coronary artery disease), UTI (urinary tract infection), Acute respiratory failure with hypoxia, Congestive heart failure Condition: Stable Coding Level of Care Code ED Stem Processing Machine Operator for Akosua Vasquez
[2024-07-18] MEDS: propofol 10 mg/mL SDV 20 mL 100 MG IVP (06:50)
[2024-07-18 06:51] LABS: Alanine Aminotransferase 31 U/L (0-33); Albumin Level 3.8 g/dL (3.5-5.2); Alkaline Phosphatase 132 U/L (35-105); Anion Gap 16.3 (5-19); Aspartate Amino Transferase 49 U/L (0-32); Blood Urea Nitrogen 27 mg/dL (8-23); Calcium 9.2 mg/dL (8.5-10.5); Carbon Dioxide 27 mmol/L (22-29); Chloride 101 mmol/L (98-107); Globulin 3.1 g/dL (1.3-4.6); Glucose 392 mg/dL (65-115); Osmolality Calculated 309 mOsm/kg (285-295); Potassium 5.3 mmol/L (3.5-5.1); Sodium 139 mmol/L (136-145); Total Bilirubin 0.2 mg/dL (0.15-1.2); Total Protein 6.9 g/dL (6.6-8.7)
[2024-07-18 06:53] LABS: ABG PH Result 7.26 (7.35-7.45); Alveolar-Arterial Oxygen Gradi 43.5 mmHg (5-10); Arterial Blood Gas Hematocrit 35.2 % (37-47); Base Excess ABG 0.1 mmol/L (-2.0-2.0); Blood Gas Allen Test Pos; Blood Gas Operator Identificat gerca; Blood Gas Sample Site Brachial, left; Blood Gas Sample Type Arterial; Carboxyhemoglobin 0.6 %THgb (0.4-20.1); HCO3 ABG 28.2 mmol/L (22-26); HGB O2 Sat 98.6 % (95-100); Ionized Calcium Level - ABG 1.2 mmol/L (1.1-1.4); Oxygen Device VENT; Oxygen Saturation ABG > 99.1; PO2 FiO2 Ratio Arterial Blood 299; Total Hemoglobin 11.5 g/dL (12-16)
[2024-07-18 06:54] LABS: Lactic Sepsis W/Reflex 2.3 mmol/L (0.5-2.2)
[2024-07-18 06:55] LABS: Add Urine Microscopic? NO
[2024-07-18 06:59] LABS: Magnesium 2.4 mg/dL (1.7-2.3)
[2024-07-18 07:00] LABS: Bilirubin Urine Negative (Negative); Blood Urine Negative (Negative); Glucose Urine UA 2+ (Normal); Ketones Urine Negative (Negative); Leukocyte Esterase Urine Negative (Negative); Nitrate Urine Negative (Negative); Protein Urine Negative (Negative); Urine Appearance Clear (CLEAR); Urine Color Yellow (Yellow); Urobilinogen Urine 0.2 mg/dL (Negative)
[2024-07-18 07:03] LABS: Charge for UA Resulting for Rev
[2024-07-18 07:07] LABS: Troponin(5th) Baseline 40 ng/L (0-10)
[2024-07-18 07:09] LABS: Ketone (Acetest) Serum Negative (Negative)
[2024-07-18] MEDS: piperacillin-tazobactam 3.375 GM in sodium chloride 0.9% (plus) 50 ML IV (07:20)
[2024-07-18] MEDS: calcium chloride 10% Syr 10 mL 1 GM IVP (07:20)
[2024-07-18] MEDS: FUROsemide 10 mg/mL SDV 4mL 40 MG IVP (07:25)
--- NOTE | 2024-07-18 07:25 | PC.PHAR ---
patient is intubated, called pharmacy to verify meds along with using last discharge med list as she was just here a few weeks ago
[2024-07-18 07:26] LABS: NT Pro B Type Natriuretic Pept 8326 pg/mL (0-450)
[2024-07-18] MEDS: albuterol 2.5 mg/3 mL Neb 10 MG INHALATION (07:34)
[2024-07-18 07:38] LABS: ABG PCO2 62.5 mmHg (35-45)
[2024-07-18 07:46] LABS: Glucose Point of Care 320 mg/dL (70-110)
[2024-07-18 07:48] LABS: Influenza A NEGATIVE (Negative); Influenza B NEGATIVE (Negative); Respiratory Syncytial Virus Ce NEGATIVE (Negative); SARS-CoV-2 PCR NEGATIVE (Negative)
[2024-07-18] MEDS: insulin regular-human 100 units/1 mL 15 UNIT IVP (08:01)
[2024-07-18 08:15] LABS: ABG PCO2 48.5 mmHg (35-45); ABG PH Result 7.36 (7.35-7.45); Alveolar-Arterial Oxygen Gradi 39.8 mmHg (5-10); Arterial Blood Gas Hematocrit 32.9 % (37-47); Base Excess ABG 1.2 mmol/L (-2.0-2.0); Blood Gas Allen Test Pos; Blood Gas Operator Identificat WALCI; Blood Gas Sample Site Brachial, right; Blood Gas Sample Type Arterial; Blood Gas Tidal Volume 0.45; Carboxyhemoglobin 0.9 %THgb (0.4-20.1); HCO3 ABG 27.2 mmol/L (22-26); HGB O2 Sat 89.9 % (95-100); Ionized Calcium Level - ABG 1.4 mmol/L (1.1-1.4); Methemoglobin 1.2 % (0.4-1.5); Oxygen Device VENT; Oxygen Saturation ABG 91.8; PO2 ABG 62.7 mmHg (80.0-100.0); PO2 FiO2 Ratio Arterial Blood 104; Potassium Level - ABG 3.6 mmol/L (3.5-5.0); Total Hemoglobin 10.7 g/dL (12-16)
--- NOTE | 2024-07-18 08:24 | ECG_ITS ---
[facility] Date: 2024-[facility]18 Pat Name: Sally Henderson Department: Room: Gender: Female Instrumentation Specialist: : 1940 Requested By: Thomas Benavidez Order Number: [id number] Leonora MD: Boaz Jaramillo M.D. Measurements Intervals [place] Rate: 87 P: 70 WA: 169 QRS: -41 QRSD: 98 T: 130 QT: 406 QTc: 491 Interpretive Statements SINUS RHYTHM LEFT AXIS DEVIATION [QRS AXIS < -30] ST DEVIATION AND MODERATE T-WAVE ABNORMALITY, CONSIDER LATERAL ISCHEMIA [-0.1+ mV T-WAVE IN I/aVL/V5/V6] Compared to ECG 07/18/2024 06:28:46 Left-axis deviation now present Ventricular premature complex(es) no longer present Right bundle-branch block no longer present T-wave abnormality still present Possible ischemia still present Electronically Signed On 07-20-2024 19:40:15 SHEET METAL SUPERVISOR by Boaz Jaramillo M.D. [email or web address]
[2024-07-18 08:29] LABS: Reflex Lactate Order REFLEX LACTIC ORDERD
[2024-07-18 08:47] LABS: Troponin 5 2HR 37.89 ng/L (0-10)
--- NOTE | 2024-07-18 08:59 | PM.HP ---
Providers/Chief Complaint Primary Care Provider: Antonio Delgado MD Chief Complaint: resp distress History of Present Illness 84-year-old lady with history of COPD, normally appears to be on about 2 L of nasal cannula oxygen, with history of congestive heart failure, borderline low ejection fraction on echocardiogram back in May at 50%, with mildly dilated left ventricle, with recent hospitalization for CHF exacerbation, suspected COPD exacerbation, underwent treatment with IV diuretics, as well as corticosteroids, nebulization, gradually improved back to baseline, with corticosteroids being tapered down, discharged on 2 L nasal cannula oxygen with resumed Lasix, return to the hospital complaining of shortness of breath with respiratory distress with increased work of breathing, tachypnea up to 42 breaths/min, with hypoxemia and hypercapnia on ABG, initial ABG 7.26/60.5/62.7 on 100% FiO2. Flu COVID RSV PCR negative. Chest x-ray with diffuse interstitial prominence, obtained after intubation due to respiratory distress. With leukocytosis 13.45, temp 96.6. With finding of EKG changes with ST depressions in 1, 2, as well as anterolaterally V2-V6. T wave inversion in aVL. With known coronary disease. Review of Systems General: Reports: ROS unobtainable due to endotracheal tube and ROS unobtainable due to mental status Medications/Allergies Home Medications ?Medication ?Instructions ?Recorded ?Confirmed ?Last Taken ?Type clopidogrel 75 mg tablet 75 mg PO BEDTIME #90 tabs 03/27/24 07/18/24 06/27/24 Rx ranolazine 500 mg tablet,extended 500 mg PO BID #60 tabs 03/27/24 07/18/24 06/28/24 Rx release,12 hr nitroglycerin 0.4 mg sublingual 0.4 mg buccal PRN PRN Chest Pain 04/10/24 07/18/24 Unknown History tablet furosemide 40 mg tablet 40 mg PO BID@0800,1400 30 days #60 05/28/24 07/18/24 06/28/24 Rx tabs potassium chloride 20 mEq 20 meq PO BID 30 days #30 tabs 05/28/24 07/18/24 06/28/24 Rx tablet,extended release(part/cryst) (Klor-Con M) isosorbide mononitrate 60 mg 60 mg PO DAILY 06/07/24 07/18/2425 History tablet,extended release 24 hr insulin aspart U-100 100 unit/mL See Rx Instructions .Route 06/11/24 07/18/24 Unknown Rx (3 mL) subcutaneous pen (Novolog .COMPLEX #15 mL FlexPen U-100 Insulin aspart) insulin degludec 200 unit/mL (3 20 unit (0.1 mL) SUBCUT DAILY #9 mL 06/11/24 07/18/24 06/07/24 Rx mL) subcutaneous pen (Tresiba FlexTouch U-200 insulin) losartan 25 mg tablet 25 mg PO DAILY #30 tabs 07/03/24 07/18/24 Unknown Rx amiodarone 200 mg tablet 200 mg PO DAILY 07/18/24 07/18/24 Unknown History atorvastatin 40 mg tablet 40 mg PO QPM 07/18/24 07/18/24 Unknown History tramadol 50 mg tablet 50 mg PO Q6H 07/18/24 07/18/24 Unknown History Allergies Allergy/AdvReac Type Severity Reaction Status Date / Time No Known Allergies Allergy Verified 07/18/24 06:33 PFSH Acute PFSH: Medical History Type 2 diabetes mellitus without complications Paroxysmal A-fib CKD (chronic kidney disease) CHF (congestive heart failure) Acute kidney injury superimposed on chronic kidney disease Acute respiratory failure with hypoxia and hypercapnia Respiratory arrest Non-STEMI (non-ST elevated myocardial infarction) Coronary artery disease Hyperglycemia Hyperkalemia Elevated brain natriuretic peptide (BNP) level Hyperglycemia Hypoxic respiratory failure Dyslipidemia Contrast-induced nephropathy CAD (coronary artery disease) Acute [place] Essential (primary) hypertension Surgical History Hx of hysterectomy Hx of CABG Family History Unknown No problems noted. Social History Smoking and tobacco/nicotine status: former use of tobacco/nicotine Alcohol intake: never Substance/Drug Use: never Vitals/I&O/Wt Last Vital Signs Temp 96.6 F L 07/18/24 06:53 Pulse 69 07/18/24 07:50 Resp 18 07/18/24 07:50 BP 103/47 07/18/24 07:50 Pulse Ox 98 07/18/24 07:50 O2 Del Method Mechanical Ventilation 07/18/24 07:50 FiO2 60 07/18/24 07:44 07/17/24 07/18/24 07/18/24 22:59 06:59 14:59 Intake Total 0.950 / 0.950 157.034 / 157.034 Balance 0.950 / 0.950 157.034 / 157.034 Weight last 48 hrs Weight 79.832 kg Weight 78.188 kg Physical Exam Narrative: Status post intubation, with mechanical ventilatory support. Sedated. Const: GENERAL APPEARANCE: patient mechanically ventilated HENMT: COMMON NORMALS: oropharynx normal OTHER: Pinpoint pupils. Neck/C-Spine: COMMON NORMALS: no JVD Resp: COMMON NORMALS: normal respiratory effort AUSCULTATION: diminished lung sounds Cardio: COMMON NORMALS: no JVD, regular rhythm, S1 normal heart sound present, S2 normal heart sound present and No murmurs present (Cardio) RHYTHM: regular rhythm HEART SOUNDS: S1 normal heart sound present and S2 normal heart sound present GI: COMMON NORMALS: Normal to inspection, nondistended, normoactive bowel sounds present, Soft to palpation and non-tender PALPATION: Yes Soft to palpation Extremity: COMMON NORMALS: no joint enlargement GENERAL: Yes edema (2+) Neuro: COMMON NORMALS: patient oriented x3 and moves all extremities SENSORIUM/ORIENTATION: Yes alert Skin: COMMON NORMALS: no rashes or lesions noted GENERAL SKIN EXAM: no rashes or lesions noted Urinary Catheter Management: Huff: Cath Placed During This Visit: yes Urinary Catheter Date of Insertion: 07/18/24 Urinary Catheter Time of Insertion: 06:51 Data 07/18/24 06:27 07/18/24 06:27 Micro: Microbiology 07/18/24 06:59 Blood Culture - Preliminary Blood SPECIMEN COLLECTED 07/18/24 06:55 Blood Culture - Preliminary Blood SPECIMEN COLLECTED A&P Assessment and plan (1) Acute respiratory failure with hypoxia: Acute respiratory failure with respiratory distress on presentation with hypoxemia, hypercapnia, tachypnea up to 4 days, required intubation presentation to ER. Currently mechanical ventilator, sedated. Reviewed ventilator settings. Continue sedation with admission to ICU. With recent admission for decompensation of congestive heart failure, with known coronary disease without opportunity for further revascularization per ER discussion with cardiology, previously noted low normal ejection fraction 50%, with noted to social prominence on chest imaging. NT proBNP elevation up to 8326. With acute decompensated systolic and diastolic congestive heart failure. Received Lasix. Continue IV Lasix diuresis with 40 mg IV Lasix twice daily, monitor for risk electrolyte deficiency, kidney injury. Monitor on telemetry. Complete troponin EKG series. With recent admission, diuresis, and rapid decompensation will reassess limited TTE. Pending cardiology consultation. Additionally with emphysema on recent CT. With suspected COPD exacerbation on prior admission. With diminished sounds, respiratory distress on presentation, with hypoxic and hypercapnic respiratory failure with respiratory acidosis, appears to be again in severe exacerbation of COPD. Will resume treatment with IV corticosteroids, monitor for risk of hyperglycemia, gastritis, encephalopathy, hypertension. Collect sputum culture if available. Will give azithromycin empirically. Reviewed EKG, currently without QTc prolongation. Reviewed vitals, CBC, ABG, CMP, magnesium, troponin, NT proBNP, UA, influenza, COVID, RSV PCR, serum ketones, chest x-ray, EKG, ER provider note, discussed with her provider. Discussed with her son. (2) Congestive heart failure: Acutely decompensated systolic and diastolic congestive heart failure, as above. (3) Troponin level elevated: Complete troponin EKG series. Noted moderate elevation of troponin with flat trend so far. Did not have chest pain prior to intubation. Does have known coronary to disease. He is seen to have some new changes on EKG with ST depression in 1, 2, as well as precordial anterolaterally and V2-V6, T wave inversion in aVL on monitor pressure. Pending official read. Assess limited TTE. Pending cardiology assessment, pressure consultation. Continue Plavix, statin. Not on beta-sabrina. Blood pressure soft currently. Plan Paroxysmal atrial flutter: Currently in sinus rhythm. Monitor on telemetry. Continue amiodarone. CAD: With known CAD with limitation as to any intervention options. DM2: Continue insulin. Sliding scale. Monitor POC glucose. Serum ketones reviewed, noted negative. PDMP PDMP Reviewed: Not Reviewed Attestations Medical Necessity Statement*: Will require admission for 2 midnights for assessment management of acute respiratory failure with hypoxia, acute decompensation of systolic and diastolic CHF, suspected severe COPD exacerbation, troponin ovation in the setting of known complex CAD in a lady of advanced age. Coding Level of Care Code Critical Care >/= 30 minutes Critical care time (in minutes): 40 The high probability of a clinically significant, sudden or life threatening deterioration, as referenced in this documentation, required my full and direct attention, intervention and personal management. The critical care time shown is in addition to time spent performing any reported separately billable procedures and includes the following: [x] Data and vital sign review and interpretation [x] Patient assessment, examination and intervention [x] Medication orders and management [x] Patient/Family updates as able [x] Care Coordination and Documentation. Diagnoses Acute respiratory failure with hypoxia J96.01 Congestive heart failure I50.9 Troponin level elevated R79.89
[2024-07-18 09:00] LABS: Troponin 5 2HR Delta -2.11 ABS# (0-10)
--- NOTE | 2024-07-18 10:06 | PC.NURSE ---
100 MG PROPOFOL WASTED WITH LIANA MARTIN.
[2024-07-18 10:07] LABS: Glucose Point of Care 347 mg/dL (70-110)
--- NOTE | 2024-07-18 10:36 | USCV_ITS ---
Sally Henderson Age: 84 Gender: F : 1940 Exam Date: 07/18/2024 11:29 Ordering Phys: Willian Richard MD Technologist: CT Exam Location: [facility] Indication: chf,ekg changes BP: 118 / 54 HR: Rhythm: Sinus Technical Quality: Adequate MEASUREMENTS (Male / Female) Normal Values 2D ECHO LVOT Diameter 2.1 cm LV Ejection Fraction MOD 4C 54.2 % LV Ejection Fraction MOD 2C 47.9 % LV Ejection Fraction 2C AL 48.0 % LA Diameter 4.4 cm RA Systolic Volume 4C AL 44.4 ml RA Systolic Volume 4C MOD 41.5 ml LA Sys Volume AL 96.6 cm cubed LA Sys Volume Index AL 45.1 cm cubed/m squared Aorta at Sinotubular Diameter 2.4 cm M-MODE LA Ao Ratio MM 1.8 AV Cusp Separation MM 1.4 cm FINDINGS Left Ventricle Left ventricle is normal in size. LV systolic function is normal with EF of 50-55%. Mild hypokinesis of inferolateral and anterolateral parkinson. Right Ventricle Grossly mild hypokinesis. Right Atrium Normal in size Left Atrium Dilated Mitral Valve Mild mitral annular calcification. Aortic Valve Aortic valve is thickened and calcified. Tricuspid Valve Insufficient TR jet to calculate RVSP. Pulmonic Valve Not well visualized Pericardium Trace pericardial effusion Aorta Normal in size IVC Not visualized. CONCLUSIONS LV systolic function is normal with EF 50 to 55%. Above- mentioned regional wall motion abnormalities are seen. Grossly RV function is mildly reduced. Left atrial dilation. Trace pericardial effusion Boaz Jaramillo MD (Electronically Signed) Final Date: 19 July 2024 14:16 S
[2024-07-18 10:58] LABS: Lactic Acid level (Lactate) 5.6 mmol/L (0.5-2.2)
[2024-07-18] MEDS: methylPREDNISolone sod succ 40 mg/mL INJ IVP ×2 (11:12→21:14)
[2024-07-18] MEDS: AZITHROMYCIN ADD-Vantage 500 MG in 0.9% NaCl ADD-Vantage 250 ML 250 MG IV (11:12)
[2024-07-18] MEDS: insulin lispro 100 unit/1 mL SUBCUT ×3 (11:23→21:40)
[2024-07-18] MEDS: amiodarone 200 mg Tablet PO (11:26)
[2024-07-18 13:05] LABS: Troponin 5 6HR 37.45 ng/L (0-10)
[2024-07-18 13:07] LABS: Troponin 5 6HR Delta -2.55 ng/L (0-12)
[2024-07-18] MEDS: ipratropium-albuterol 3 mL Neb INHALATION ×2 (13:10→20:25)
--- NOTE | 2024-07-18 13:29 | P.CONIM_ITS ---
<Statement entered by Boaz Jaramillo M.D - 07/19/24 21:46> Patient was evaluated and cared for in conjunction with an advanced practice practitioner. I personally examined the patient and reviewed the chart and all pertinent data including imaging, telemetry, and laboratory results. I discussed the patient in detail with the advanced practice practitioner. Please see their note for complete consult note, results and agreed upon plan of care for the patient. GENERAL: Patient is intubated and sedated HEART: Regular S1 and S2 LUNGS: Diminished air entry EXTREMITIES: Lower extremities with 1+ edema Providers/Reason For Consult 2 Consulting Physician/Specialty*: Dr Jaramillo, cardiology Reason for Consult*: Systolic CHF, EKG changes Requesting Physician: Dr Nava Attending Physician: Willian Richard Primary Care Provider: Antonio Delgado MD History of Present Illness History of Present Illness Sally Henderson is a 84 year old female with past medical history of type 2 diabetes, hypertension, paroxysmal atrial fibrillation, CAD status post CABG (only [place] to LAD patent, other bypass grafts occluded, known subtotal occlusion of the proximal to mid circumflex -no revascularization options successful), CHF (LVEF 50% 05/27/2024). She was admitted 05/26/2024- 05/28/2024 then 06/07/2024-06/11/2024 also 06/28/2024- 07/03/2024 all for shortness of breath requiring diuresis, treatment for pneumonia at the end of May. She presented to the emergency room today with worsening shortness of breath, respiratory distress, was intubated in the emergency room. Viral panel negative. EKG notes ST depressions in leads I and II, V2 through V6. Troponin series: 40 -> 37 -> 37. Lactic acid 5.6, WBC 13.5. She does have a history of atrial fibrillation, so far she has been in sinus rhythm, rate controlled. As of now she is intubated and sedated, unable to obtain ROS. Medications/Allergies Home Medications ?Medication ?Instructions ?Recorded ?Confirmed ?Last Taken ?Type clopidogrel 75 mg tablet 75 mg PO BEDTIME #90 tabs 07/18/24 06/27/24 Rx ranolazine 500 mg tablet,extended 500 mg PO BID #60 ta bs 03/27/24 07/18/24 06/28/24 Rx release,12 hr nitroglycerin 0.4 mg sublingual 0.4 mg buccal PRN PRN Chest Pain 04/10/24 07/18/24 Unknown History tablet furosemide 40 mg tablet 40 mg PO BID@0800,1400 30 da ys #60 05/28/24 07/18/24 06/28/24 Rx tabs potassium chloride 20 mEq 20 meq PO BID 30 days #30 ta bs 05/28/24 07/18/24 06/28/24 Rx tablet,extended release(part/cryst) (Klor-Con M) isosorbide mononitrate 60 mg 60 mg PO DAILY 06/07/24 0 07/18/24 06/28/24 History tablet,extended release 24 hr insulin aspart U-100 100 unit/mL See Rx Instructions . Route 06/11/24 07/18/24 Unknown Rx (3 mL) subcutaneous pen (Novolog .COMPLEX #15 mL FlexPen U-100 Insulin aspart) insulin degludec 200 unit/mL (3 20 unit (0.1 mL) SUBCU T DAILY #9 mL 06/11/24 07/18/24 06/07/24 Rx mL) subcutaneous pen (Tresiba FlexTouch U-200 insulin) losartan 25 mg tablet 25 mg PO DAILY #30 tabs 06/1507/18/24 Unknown Rx amiodarone 200 mg tablet 200 mg PO DAILY 07/18/2411/06 Unknown History atorvastatin 40 mg tablet 40 mg PO QPM 07/18/24 Unknown History tramadol 50 mg tablet 50 mg PO Q6H 07/18/24 Unknown History Allergies Allergy/AdvReac Type Severity Reaction Status Date / Time No Known Allergies Allergy Verified 07/18/24 06:33 Current Medications Generic Name Dose Route Start Last Admin Trade Name Freq PRN Reason Stop Dose Admin Albuterol/Ipratropium 3 ml 07/18/24 14:00 07/18/24 13:10 Ipratropium-Albuterol 3 Ml Neb INHALATION 3 ml Q6H.RESP [place] Administration Amiodarone HCl 200 mg 07/18/24 10:36 07/18/24 11:26 Amiodarone 200 Mg Tablet PO 200 mg DAILY LI Administration Midazolam HCl 100 mg in 100 mls @ 0 mls/hr 07/18/24 06:30 07/18/24 08:54 Versed IV 2 mg/hr .Q0M LI 2 mls/hr Titration Protocol Per Protocol Fentanyl 1,000 mcg in 100 mls @ 0 mls/hr 07/18/24 06:30 07/18/24 08:59 Sublimaze IV Infused .Q0M LI Titration Protocol Per Protocol Azithromycin 500 mg/ Sodium 250 mls @ 250 mls/hr 07/18/24 10:36 07/18/24 11:12 Chloride IV 250 mls/hr Q24H LI Administration Protocol Insulin Human Lispro 0 unit 07/18/24 10:36 07/18/24 11:23 Insulin Lispro 100 Unit/1 Ml SUBCUT 10 unit Q6H LI Administration Protocol Methylprednisolone Sodium Succinate 40 mg 07/18/24 11:00 07/18/24 11:12 Methylprednisolone Sod Succ 40 Mg/Ml Inj IVP 40 mg Q8H LI Administration PFSH Acute 2 PFSH: Medical History (Updated 07/18/24 @ 13:55 by AUGUSTINA Locke) CAD (coronary artery disease) Type 2 diabetes mellitus without complications Paroxysmal A-fib CKD (chronic kidney disease) CHF (congestive heart failure) Acute kidney injury superimposed on chronic kidney disease Acute respiratory failure with hypoxia and hypercapnia Respiratory arrest Non-STEMI (non-ST elevated myocardial infarction) Coronary artery disease Hyperglycemia Hyperkalemia Elevated brain natriuretic peptide (BNP) level Hyperglycemia Hypoxic respiratory failure Dyslipidemia Contrast-induced nephropathy Acute PA Essential (primary) hypertension Surgical History Hx of hysterectomy Hx of CABG Family History Unknown No problems noted. Social History Smoking and tobacco/nicotine status: former use of tobacco/nicotine Alcohol intake: never Substance/Drug Use: never Vitals/I&O/Wt Last Vital Signs Temp 96.6 F L 07/18/24 06:53 Pulse 61 07/18/24 13:13 Resp 16 07/18/24 13:15 BP 111/54 07/18/24 12:12 Pulse Ox 99 07/18/24 13:15 O2 Del Method Mechanical Ventilation 07/18/24 13:13 FiO2 40 07/18/24 13:15 07/17/24 07/18/24 07/18/24 22:59 06:59 14:59 Intake Total 0.950 / 0.950 207.034 / 207.034 Balance 0.950 / 0.950 207.034 / 207.034 Weight last 48 hrs Weight 176 lb Weight 172 lb 6 oz Physical Exam 2 Chest: COMMONS NORMALS: normal inspection of the chest and normal palpation of entire chest wall CHEST: Yes Symmetrical chest wall rise Resp: COMMON NORMALS: normal respiratory effort, No retractions, No use of accessory muscles and clear to auscultation bilaterally EFFORT & INSPECTION: Yes symmetric chest movement AUSCULTATION: clear to auscultation bilaterally Cardio: COMMON NORMALS: regular rate, regular rhythm, S1 normal heart sound present, S2 normal heart sound present, No gallops present (Cardio), No clicks present (Cardio), No murmurs present (Cardio) and No rub (Cardio) RATE: r egular rate RHYTHM: regular rhythm HEART SOUNDS: S1 normal heart sound present and S2 normal heart sound present PERIPHERAL PULSES: radial pulses present Extremity: COMMON NORMALS: no pedal edema Urinary Catheter Management: Huff: Cath Placed During This Visit: yes Urinary Catheter Date of Insertion: 07/18/24 Urinary Catheter Time of Insertion: 06:51 Data 07/18/24 06:27 07/18/24 06:27 Micro: Microbiology 07/18/24 09:15 Gram Stain - Final Sputum - Endotracheal Tube Aspirate 07/18/24 06:59 Blood Culture - Preliminary Blood SPECIMEN COLLECTED 07/18/24 06:55 Blood Culture - Preliminary Blood SPECIMEN COLLECTED A&P Assessment and plan (1) CAD (coronary artery disease): (2) Congestive heart failure: (3) Paroxysmal A-fib: (4) Troponin level elevated: Plan She has some troponin elevation with ST depressions on the EKG. Given the known severe CAD with only the [place] to LAD patent, subtotal occlusion of the proximal to mid circumflex with no options for revascularization, medical management is recommended. Continue Plavix. Blood pressure running 110-120 systolic currently-may be able to add low-dose beta-sabrina later on. Sepsis noted-has been started on azithromycin empirically. She did get a dose of Lasix previously, urine output is good, Huff has been placed. Her weight is up about 6 pounds from her last weight on 07/03/2024. Creatinine is 1.0, BNP 8326 (up from 4656 last month). Agree with IV Lasix 40 mg twice daily as per hospitalist. She is in sinus rhythm with good rate control, continue amiodarone 200 mg daily. PDMP PDMP Reviewed: Not Reviewed Consult Attestations 2 Medical Necessity Statement: Intubated due to respiratory distress, medical management of severe CAD. Coding Level of Care Code Acute Code for [facility] Fwd Diagnoses CAD (coronary artery disease) I25.10 Congestive heart failure I50.9 Paroxysmal A-fib I48.0 Troponin level elevated R79.89
[2024-07-18] MEDS: sodium chloride 0.9% 50 ML IV (14:36)
[2024-07-18] MEDS: pantoprazole 40 mg SDV IVP (14:36)
[2024-07-18] MEDS: enoxaparin 40 mg/0.4 mL Syringe SUBCUT (14:36)
[2024-07-18 15:52] LABS: MRSA PCR OZH (swab) NOT DETECTED (Not Detecte)
[2024-07-18] MEDS: fentaNYL 1,000 MCG/100 ML BAG 7.5 MCG IV (17:38)
[2024-07-18] MEDS: atorvastatin 40 mg Tablet PO (17:40)
[2024-07-18 17:46] LABS: Glucose Point of Care 391 mg/dL (70-110)
[2024-07-18 17:46] LABS: Glucose Point of Care 339 mg/dL (70-110)
[2024-07-18 17:47] LABS: Blood Urea Nitrogen 33 mg/dL (8-23); Calcium 9.5 mg/dL (8.5-10.5); Carbon Dioxide 21 mmol/L (22-29); Chloride 98 mmol/L (98-107); Glucose 380 mg/dL (65-115); Osmolality Calculated 307 mOsm/kg (285-295); Sodium 137 mmol/L (136-145)
[2024-07-18 22:09] LABS: Glucose Point of Care 391 mg/dL (70-110)
[2024-07-19] VITALS (57 sets, daily range): BP systolic 86–151; BP diastolic 44–96; PULSE 71–107; RESP 16–29; TEMP 36.6–36.8; O2SAT 79–100
[2024-07-19] MEDS: ipratropium-albuterol 3 mL Neb INHALATION ×4 (03:22→20:05)
[2024-07-19] MEDS: methylPREDNISolone sod succ 40 mg/mL INJ IVP ×3 (03:41→18:35)
[2024-07-19] MEDS: fentaNYL 1,000 MCG/100 ML BAG 7.5 MCG IV (04:22)
--- NOTE | 2024-07-19 04:23 | PC.NURSE ---
Fentanyl bag changed 0 left in bag and pump noted air. Air purged as new bag hung. Empty bag shown to charge nurse Arpita. Stated to note 0 wasted on flow sheet, stated I do not need witness- as to empty bag due to amount left in distal tubing.
[2024-07-19] MEDS: insulin lispro 100 unit/1 mL SUBCUT ×4 (04:29→21:43)
[2024-07-19 05:44] LABS: Basophils % 0.1 %; Hematocrit 35.3 % (36-47); Lymphocytes # 0.4 10^3/uL (0.8-4.8); Lymphocytes % 1.7 %; Mean Corpuscular HGB Conc 30.3 g/dL (30-55); Mean Corpuscular Hemoglobin 25.6 pg (27-33); Mean Corpuscular Volume 84.4 fl (85-98); Monocytes # 0.8 10^3/uL (0.2-0.9); Monocytes % 3.2 %; Neutrophils # 23.04 10^3/uL (1.8-7.7); Neutrophils % 94.2 %; Nucleated Red Blood Cells % 0 %; Platelet Count 238 10^3/cmm (157-399); Red Blood Count 4.18 10^6/uL (3.85-5.65); Red Cell Distribution Width 14.6 % (12.1-15.1); White Blood Count 24.47 10^3/uL (3.29-11.43)
[2024-07-19 06:15] LABS: Alanine Aminotransferase 22 U/L (0-33); Albumin Level 3.5 g/dL (3.5-5.2); Alkaline Phosphatase 104 U/L (35-105); Anion Gap 26.2 (5-19); Aspartate Amino Transferase 22 U/L (0-32); Blood Urea Nitrogen 38 mg/dL (8-23); Calcium 9.9 mg/dL (8.5-10.5); Carbon Dioxide 21 mmol/L (22-29); Chloride 96 mmol/L (98-107); Globulin 3.3 g/dL (1.3-4.6); Glucose 292 mg/dL (65-115); Osmolality Calculated 308 mOsm/kg (285-295); Potassium 4.2 mmol/L (3.5-5.1); Sodium 139 mmol/L (136-145); Total Bilirubin 0.5 mg/dL (0.15-1.2); Total Protein 6.8 g/dL (6.6-8.7)
[2024-07-19 07:30] LABS: Glucose Point of Care 257 mg/dL (70-110)
[2024-07-19] MEDS: insulin glargine 100 units/1 mL 10 UNIT SUBCUT (08:45)
[2024-07-19] MEDS: amiodarone 200 mg Tablet PO (08:45)
--- NOTE | 2024-07-19 09:03 | PC.SOCIAL ---
IMM Update Pg. 2 of IMM updated. Initialed/dated copy in chart, additional copy provided at bedside.
--- NOTE | 2024-07-19 09:50 | P.PN_ITS ---
<Statement entered by Boaz Jaramillo M.D - 07/19/24 23:02> Patient was cared for in conjunction with an advanced practice practitioner. I reviewed the chart and all pertinent data including imaging, telemetry, and laboratory results. I discussed the patient in detail with the advanced practice practitioner. Please see their note for complete progress note, results and agreed upon plan of care for the patient. Subjective 2 Subjective: She self extubated this morning, currently on nasal cannula and maintaining good oxygen saturation. Fluid balance is -500 mL, coarse lung sounds. Mild volume overload vs COPD exacerbation/pneumonia. Noted WBC 24, on Solu-Medrol. Creatinine 1.5. No reported chest pain this morning. Vitals/I&O/Wt Last Vital Signs Temp 97.9 F 07/19/24 12:45 Pulse 83 07/19/24 16:00 Resp 17 07/19/24 16:00 BP 94/64 07/19/24 15:00 Pulse Ox 94 07/19/24 16:00 O2 Del Method Nasal Cannula 07/19/24 13:26 O2 Flow Rate 2 07/19/24 13:26 FiO2 35 07/19/24 09:03 07/19/24 07/19/24 07/19/24 06:59 14:59 22:59 Intake Total 100 / 657.034 331.70 / 331.70 Output Total 150 / 1150 Balance -50 / -492.966 331.70 / 331.70 Weight last 48 hrs Weight 166 lb 1.6 oz Weight 170 lb 5 oz Weight 176 lb Weight 172 lb 6 oz Physical Exam 2 Const: COMMON NORMALS: no acute distress and patient oriented x3 GENERAL APPEARANCE: cooperative and comfortable ORIENTATION/CONSCIOUSNESS: Yes awake, Yes oriented to person, Yes oriented to place and Yes oriented to time Chest: COMMONS NORMALS: normal inspection of the chest and normal palpation of entire chest wall CHEST: Yes Symmetrical chest wall rise Resp: COMMON NORMALS: normal respiratory effort, No retractions and No use of accessory muscles EFFORT & INSPECTION: Yes symmetric chest movement A USCULTATION: crackles (Scattered) and diminished lung sounds bilateral in the lower lung matta Cardio: COMMON NORMALS: regular rate, regular rhythm, S1 normal heart sound present, S2 normal heart sound present, No gallops present (Cardio), No clicks present (Cardio), No murmurs present (Cardio) and No rub (Cardio) RATE: r egular rate RHYTHM: regular rhythm HEART SOUNDS: S1 normal heart sound present and S2 normal heart sound present PERIPHERAL PULSES: radial pulses present Extremity: COMMON NORMALS: no pedal edema Neuro: COMMON NORMALS: patient oriented x3 and moves all extremities S ENSORIUM/ORIENTATION: Yes oriented to person, Yes oriented to place and Yes oriented to time Urinary Catheter Management: Huff: Cath Placed During This Visit: yes Reason for Continuing Indwelling Catheter: Accurate Measurement of Urinary Output in Critically Ill Patients Urinary Catheter Date of Insertion: 07/18/24 Urinary Catheter Time of Insertion: 06:51 Data 07/19/24 03:49 07/19/24 03:49 Micro: Microbiology 07/18/24 09:15 Gram Stain - Final Sputum - Endotracheal Tube Aspirate Sputum Culture - Preliminary 07/18/24 06:59 Blood Culture - Preliminary Blood NEGATIVE TO DATE 07/18/24 06:55 Blood Culture - Preliminary Blood NEGATIVE TO DATE A&P Assessment and plan (1) CAD (coronary artery disease): (2) Congestive heart failure: (3) Troponin level elevated: Plan Continue medical management of CAD with Plavix, atorvastatin. No plans for further interventions at this time. In sinus rhythm, continue amiodarone 200 mg daily. Her weight is down 4 pounds from yesterday, she may not need much diuresis. Close I & O. PDMP PDMP Reviewed: Not Reviewed Attestations 2 Medical Necessity Statement*: Per hospitalist Coding Level of Care Code Acute Code for [facility] [place] Diagnoses CAD (coronary artery disease) I25.10 Congestive heart failure I50.9 Troponin level elevated R79.89
[2024-07-19 11:04] LABS: Glucose Point of Care 318 mg/dL (70-110)
[2024-07-19] MEDS: AZITHROMYCIN ADD-Vantage 500 MG in 0.9% NaCl ADD-Vantage 250 ML 250 MG IV (11:11)
--- NOTE | 2024-07-19 13:09 | PC.NURSE ---
Patient is very restless and keeps turning left to right in bed, appears that she is trying to get comfortable. Patient states, I have to get up. I have to pee. Patient educated that she has a catheter in place that is draining her bladder already. Patient tells this student nurse that she has no pain and is not uncomfortable.
--- NOTE | 2024-07-19 14:45 | P.PN_ITS ---
Subjective 2 Subjective: This morning on sedation, breathing supported by mechanical ventilation. Weakly opening her eyes, squeezing both hands. Later on reassessment on nasal cannula oxygen, sleeping, wakes up to voice, denies pain or discomfort. States breathing is currently comfortable. Not feeling a coughing. No chest pain or pressure. Vitals/I&O/Wt Last Vital Signs Temp 97.9 F 07/19/24 12:45 Pulse 93 07/19/24 14:00 Resp 24 H 07/19/24 14:00 BP 90/46 07/19/24 13:30 Pulse Ox 96 07/19/24 14:00 O2 Del Method Nasal Cannula 07/19/24 13:26 O2 Flow Rate 2 07/19/24 13:26 FiO2 35 07/19/24 09:03 07/18/24 07/19/24 07/19/24 22:59 06:59 14:59 Intake Total 100 / 557.034 100 / 657.034 331.70 / 331.70 Output Total 1000 / 1000 150 / 1150 Balance -900 / -442.966 -50 / -492.966 331.70 / 331.70 Weight last 48 hrs Weight 75.342 kg Weight 77.252 kg Weight 79.832 kg Weight 78.188 kg Physical Exam 2 Const: COMMON NORMALS: patient oriented x3 and alert GENERAL APPEARANCE: p atient mechanically ventilated OTHER: On reassessment extubated, on 2 L nasal cannula. Spontaneous breathing. Somnolent, but wakes up to voice. HENMT: COMMON NORMALS: oropharynx normal Neck/C-Spine: COMMON NORMALS: no JVD Resp: COMMON NORMALS: normal respiratory effort AUSCULTATION: diminished lung sounds Cardio: COMMON NORMALS: no JVD, regular rhythm, S1 normal heart sound present, S2 normal heart sound present and No murmurs present (Cardio) RHYTHM: regular rhythm HEART SOUNDS: S1 normal heart sound present and S2 normal heart sound present GI: COMMON NORMALS: Normal to inspection, nondistended, normoactive bowel sounds present, Soft to palpation and non-tender PALPATION: Yes Soft to palpation Extremity: COMMON NORMALS: no joint enlargement GENERAL: No edema Neuro: COMMON NORMALS: patient oriented x3 and moves all extremities S ENSORIUM/ORIENTATION: Yes alert Skin: COMMON NORMALS: no rashes or lesions noted GENERAL SKIN EXAM: no rashes or lesions noted Urinary Catheter Management: Huff: Cath Placed During This Visit: yes Reason for Continuing Indwelling Catheter: Accurate Measurement of Urinary Output in Critically Ill Patients Urinary Catheter Date of Insertion: 07/18/24 Urinary Catheter Time of Insertion: 06:51 Data 07/19/24 03:49 07/19/24 03:49 Micro: Microbiology 07/18/24 06:59 Blood Culture - Preliminary Blood NEGATIVE TO DATE 07/18/24 06:55 Blood Culture - Preliminary Blood NEGATIVE TO DATE 07/18/24 09:15 Gram Stain - Final Sputum - Endotracheal Tube Aspirate A&P Assessment and plan (1) Acute respiratory failure with hypoxia: On assessment earlier this morning intubated for mechanical ventilator, on sedation, weakly opening her eyes, squeezing both hands. Weaning sedation to allow to wake up, breathing trial, later in the morning she self extubated. On reassessment somnolent, but wakes up to voice, breathing spontaneously, on 2 L nasal cannula screening, saturation high 90s, decreased oxygen down to 1 L, sats still mid to high 90s, decreased 2.5 L. Avoid hyperoxia. Discussed with nursing staff and RT. Target O2 saturation 88-92% with underlying COPD, hypercapnia on presentation. Held additional Lasix for now given renal dysfunction, BUN worsening up to 38, creatinine up to 1.5. Monitor intake and output, has been in negative balance of -600 mL. Lower extremity edema has resolved. Reassess volume status. With COPD exacerbation, continue Solu-Medrol, breathing treatments. Monitor for risk of hyperglycemia, hypertension, gastritis, encephalopathy. Continue PPI. Reassess blood counts. Continue Neal antibiotic with azithromycin. Sputum culture pending, reviewed, not resulted. Reviewed echocardiogram, EF 50-55%, mild hypokinesis of inferolateral and anterolateral parkinson. Left atrial dilation. Trace pericardial effusion. Resume volume optimization after reassessment of kidney function. Diuretics held for now. Monitor for risk electrolyte deficiency, kidney injury. Monitor on telemetry. With recent admission, diuresis, and rapid decompensation will reassess limited TTE. Pending cardiology consultation. Discussed with case therapist and with her son. (2) Congestive heart failure: Acutely decompensated systolic and diastolic congestive heart failure, as above. (3) Troponin level elevated: Reviewed echocardiogram. Reviewed cardiology note, appreciate consultation. No options for revascularization. Continue medical management. Complete troponin EKG series. Noted moderate elevation of troponin with flat trend so far. Did not have chest pain prior to intubation. Does have known coronary to disease. He is seen to have some new changes on EKG with ST depression in 1, 2, as well as precordial anterolaterally and V2-V6, T wave inversion in aVL on monitor pressure. Pending official read. Reviewed limited TTE. Pending cardiology assessment, pressure consultation. Continue Plavix, statin. Not on beta-sabrina. Blood pressure soft currently. Plan Paroxysmal atrial flutter: Currently in sinus rhythm. Monitor on telemetry. Continue amiodarone. CAD: With known CAD with limitation as to any intervention options. DM2: Continue insulin. Sliding scale. Monitor POC glucose. Serum ketones reviewed, noted negative. PDMP PDMP Reviewed: Not Reviewed Attestations 2 Medical Necessity Statement*: Continue admission for assessment management of acute respiratory failure, decompensated congestive heart failure with worsening kidney function with attempted diuresis, with COPD exacerbation. Coding Level of Care Code Critical Care >/= 30 minutes Critical care time (in minutes): 35 The high probability of a clinically significant, sudden or life threatening deterioration, as referenced in this documentation, required my full and direct attention, intervention and personal management. The critical care time shown is in addition to time spent performing any reported separately billable procedures and includes the following: [x] Data and vital sign review and interpretation [x ] Patient assessment, examination and intervention [x] Medication orders and management [x] Patient/Family updates as able [x] Care Coordination and Documentation. Diagnoses Acute respiratory failure with hypoxia J96.01 Congestive heart failure I50.9 Troponin level elevated R79.89
[2024-07-19] MEDS: enoxaparin 30 mg/0.3 mL Syringe SUBCUT (14:53)
[2024-07-19] MEDS: pantoprazole 40 mg SDV IVP (14:53)
--- NOTE | 2024-07-19 16:18 | PC.NURSE ---
Update Family Patient gave verbal consent to this nurse to speak with Katelyn over the phone.
[2024-07-19 16:48] LABS: Glucose Point of Care 304 mg/dL (70-110)
[2024-07-19] MEDS: atorvastatin 40 mg Tablet PO (17:07)
[2024-07-19] MEDS: nystatin powder 15 gm Btl 1 APPLIC TOPICAL (18:35)
[2024-07-19] MEDS: TRAMadol 50 mg Tablet PO (21:25)
[2024-07-19] MEDS: clopidogrel 75 mg Tablet PO (21:42)
[2024-07-20] VITALS (27 sets, daily range): BP systolic 111–141; BP diastolic 49–98; PULSE 67–84; RESP 17–25; TEMP 36.2–36.9; O2SAT 84–97
[2024-07-20] MEDS: ipratropium-albuterol 3 mL Neb INHALATION ×3 (02:30→19:24)
[2024-07-20] MEDS: methylPREDNISolone sod succ 40 mg/mL INJ IVP ×3 (03:52→17:19)
[2024-07-20 04:52] LABS: Glucose Point of Care 257 mg/dL (70-110)
[2024-07-20 04:52] LABS: Glucose Point of Care 240 mg/dL (70-110)
[2024-07-20] MEDS: insulin lispro 100 unit/1 mL SUBCUT ×4 (04:54→21:41)
[2024-07-20 06:12] LABS: Basophils % 0.2 %; Lymphocytes # 0.3 10^3/uL (0.8-4.8); Lymphocytes % 1.6 %; Mean Corpuscular HGB Conc 30.9 g/dL (30-55); Mean Corpuscular Hemoglobin 25.6 pg (27-33); Mean Corpuscular Volume 82.7 fl (85-98); Mean Platelet Volume 12.6 fL (7.4-10.4); Monocytes # 0.4 10^3/uL (0.2-0.9); Monocytes % 1.8 %; Neutrophils # 18.82 10^3/uL (1.8-7.7); Neutrophils % 95.3 %; Nucleated Red Blood Cells % 0 %; Platelet Count 252 10^3/cmm (157-399); Red Blood Count 3.87 10^6/uL (3.85-5.65); Red Cell Distribution Width 14.9 % (12.1-15.1); White Blood Count 19.73 10^3/uL (3.29-11.43)
[2024-07-20 06:34] LABS: Anion Gap 15.1 (5-19); Blood Urea Nitrogen 47 mg/dL (8-23); Calcium 9.2 mg/dL (8.5-10.5); Carbon Dioxide 28 mmol/L (22-29); Chloride 98 mmol/L (98-107); Glucose 277 mg/dL (65-115); Osmolality Calculated 304 mOsm/kg (285-295); Potassium 5.1 mmol/L (3.5-5.1); Sodium 136 mmol/L (136-145)
[2024-07-20] MEDS: amiodarone 200 mg Tablet PO (10:21)
[2024-07-20] MEDS: AZITHROMYCIN ADD-Vantage 500 MG in 0.9% NaCl ADD-Vantage 250 ML 250 MG IV (10:21)
[2024-07-20] MEDS: insulin glargine 100 units/1 mL 10 UNIT SUBCUT (10:21)
--- NOTE | 2024-07-20 10:23 | P.PN_ITS ---
Subjective 2 Subjective: Patient is extubated. Feeling better. Blood pressure is controlled. No significant shortness of breath. Vitals/I&O/Wt Last Vital Signs Temp 97.8 F 07/20/24 07:00 Pulse 67 07/20/24 07:00 Resp 18 07/20/24 04:00 BP 124/98 07/20/24 07:00 Pulse Ox 97 07/20/24 07:00 O2 Del Method Nasal Cannula 07/20/24 07:00 O2 Flow Rate 1 07/20/24 07:00 FiO2 35 07/19/24 09:03 07/19/24 07/20/24 07/20/24 22:59 06:59 14:59 Intake Total 570 / 901.70 Output Total 150 / 150 400 / 550 Balance 420 / 751.70 -400 / 351.70 Weight last 48 hrs Weight 166 lb 7.184 oz Weight 166 lb 1.6 oz Weight 170 lb 5 oz Physical Exam 2 Narrative: GENERAL: Patient is alert, awake and oriented x3. HEART: Regular S1 and S2. No murmur, rub or gallop. LUNGS: Clear to auscultate bilaterally. CENTRAL NERVOUS SYSTEM: Grossly nonfocal. EXTREMITIES: Lower extremities with out edema bilaterally. Urinary Catheter Management: Huff: Cath Placed During This Visit: yes Reason for Continuing Indwelling Catheter: Accurate Measurement of Urinary Output in Critically Ill Patients Urinary Catheter Date of Insertion: 07/18/24 Urinary Catheter Time of Insertion: 06:51 Data 07/21/24 01:50 07/21/24 01:50 Micro: Microbiology 07/18/24 09:15 Gram Stain - Final Sputum - Endotracheal Tube Aspirate Sputum Culture - Preliminary 07/18/24 06:59 Blood Culture - Preliminary Blood NEGATIVE TO DATE 07/18/24 06:55 Blood Culture - Preliminary Blood NEGATIVE TO DATE A&P Assessment and plan (1) CAD (coronary artery disease): (2) Congestive heart failure: (3) Troponin level elevated: Plan Patient is stable from cardiac standpoint. LV systolic function is overall normal. Can hold diuretics. Monitor renal function. Close I and Os Thank you for involving us with care of this patient. We will continue to follow. Please call with questions. PDMP PDMP Reviewed: Not Reviewed Attestations 2 Medical Necessity Statement*: Care expected to cross 2 midnights. Coding Level of Care Code Acute Code for [facility] Fwd Diagnoses CAD (coronary artery disease) I25.10 Congestive heart failure I50.9 Troponin level elevated R79.89
[2024-07-20] MEDS: nystatin powder 15 gm Btl 1 APPLIC TOPICAL ×2 (10:28→17:19)
[2024-07-20] MEDS: TRAMadol 50 mg Tablet PO ×2 (10:31→19:48)
[2024-07-20 11:22] LABS: Glucose Point of Care 308 mg/dL (70-110)
[2024-07-20] MEDS: acetaminophen 325 mg Tablet 650 MG PO (11:26)
[2024-07-20 12:20] LABS: Procalcitonin 0.51 ng/mL (0-0.5); Vitamin B12 604 pg/mL (232-1245)
[2024-07-20 12:31] LABS: Iron 20 ug/dL (37-145); Percent Saturation 5.8 % (20-50); Total Iron Binding Capacity 343 mcg/dl; Unsaturated Iron Binding 323 ug/dL (112-347)
[2024-07-20] MEDS: cefTRIAXone 1,000 mg SDV 1000 MG IVP (12:36)
[2024-07-20] MEDS: pantoprazole 40 mg SDV IVP (14:49)
[2024-07-20] MEDS: enoxaparin 30 mg/0.3 mL Syringe SUBCUT (14:49)
[2024-07-20 17:09] LABS: Glucose Point of Care 331 mg/dL (70-110)
[2024-07-20] MEDS: atorvastatin 40 mg Tablet PO (17:18)
[2024-07-20] MEDS: ranolazine (12HR) 500 mg Tablet PO (17:18)
--- NOTE | 2024-07-20 17:50 | P.PN_ITS ---
Subjective 2 Subjective: Full course, labs appreciated. Today morning examination patient laying comfortably in bed. Awake and alert. Denies any nausea, vomiting, headache. States she is feeling a lot better. Saturating well on 1 to 2 L of oxygen supplementation. Vitals/I&O/Wt Last Vital Signs Temp 97.8 F 07/20/24 07:00 Pulse 75 07/20/24 17:00 Resp 21 H 07/20/24 17:00 BP 122/74 07/20/24 17:00 Pulse Ox 84 L 07/20/24 17:00 O2 Del Method Room Air 07/20/24 14:00 O2 Flow Rate 1 07/20/24 14:00 FiO2 35 07/19/24 09:03 07/20/24 07/20/24 07/20/24 06:59 14:59 22:59 Intake Total 970 / 970 Output Total 400 / 550 375 / 375 Balance -400 / 351.70 970 / 970 -375 / 595 Weight last 48 hrs Weight 75.5 kg Weight 75.342 kg Physical Exam 2 Narrative: General: No acute distress, AO x3 HEENT: PERRLA, pupils bilaterally equal and reactive Chest: Normal vesicular breath sounds, no added sounds, equal good air entry bilaterally CVS: S1-S2 regular, no murmurs, no tachycardia, no gallops, no rubs Abdomen: Soft, nontender, no organomegaly, bowel sounds present Neuro: No focal deficits, no facial deformity, AO x3, power 5/5 in all limbs Urinary Catheter Management: Huff: Cath Placed During This Visit: yes Reason for Continuing Indwelling Catheter: Accurate Measurement of Urinary Output in Critically Ill Patients Urinary Catheter Date of Insertion: 07/18/24 Urinary Catheter Time of Insertion: 06:51 Data 07/20/24 05:47 07/20/24 05:47 Micro: Microbiology 07/18/24 09:15 Gram Stain - Final Sputum - Endotracheal Tube Aspirate Sputum Culture - Final A&P Assessment and plan (1) Acute respiratory failure with hypoxia: Post self extubation on 07/19. Respiratory failure in setting of CHF and COPD exacerbation. Oxygen supplementation keeping saturation over 88 to 90%. (2) Congestive heart failure: Limited echocardiogram showed an EF of 50 to 55%, mild hypokinesia of inferior lateral anterolateral parkinson. Mildly reduced RV function, dilated left atrium. Overall patient around 500 cc positive. Strict and proper charting, daily weights. Fluid restriction to less than 1500 cc. IV Lasix 40 mg daily. (3) Troponin level elevated: Reviewed echocardiogram. Reviewed cardiology note, appreciate consultation. No options for revascularization. Continue medical management. Denies active chest pain. Appreciate recent A1c and lipid panel. Continue with Plavix, statin. Add home dose of Ranexa (4) CKD (chronic kidney disease): Baseline creatinine 1.2-1.5. Recently as has been 1.8. Strict input output charting, daily weights. Medical reconciliation done for nephrotoxic drugs. Monitor BMP daily. (5) Type 2 diabetes mellitus without complications: Continue with Lantus 20 units daily. Insulin sliding scale before meals and at bedtime. Appreciate recent A1c. (6) COPD (chronic obstructive pulmonary disease): In mild exacerbation. Wean Solu-Medrol to 40 mg twice daily. Add Pulmicort twice daily. Continue with DuoNeb every 6 hour. Plan for aggressive steroid taper in next 24 to 48 hours. Plan Paroxysmal atrial flutter: Currently in sinus rhythm. Monitor on telemetry. Continue amiodarone. Leukocytosis: Follow-up blood culture. Sputum culture as possible. Cannot rule out pneumonia. UA negative for UTI. Continue with azithromycin to finish a 3-day course. Add IV ceftriaxone 1 g daily. Appreciate old culture history with history of UTI with Klebsiella and E. coli in the past. Sensitive to ceftriaxone. Transfer to MedSurg floor. Full code Soft mechanical cardiac diet PT evaluation Protonix for PUD prophylaxis Lovenox for DVT prophylaxis. Transfer to MedSurg floor. PDMP PDMP Reviewed: Not Reviewed Attestations 2 Medical Necessity Statement*: Requires further hospitalization for management of acute hypoxic respiratory failure postextubation in setting of CHF, COPD exacerbation in a patient with history of CAD Diagnoses Acute respiratory failure with hypoxia J96.01 Congestive heart failure I50.9 Troponin level elevated R79.89 CKD (chronic kidney disease) N18.9 Type 2 diabetes mellitus without complications E11.9 COPD (chronic obstructive pulmonary disease) J44.9
--- NOTE | 2024-07-20 17:53 | XRR_ITS ---
PROCEDURE INFORMATION: Exam: XR Chest Exam date and time: 07/20/2024 6:51 PM Age: 84 years old Clinical indication: Other: Hypoxia; Prior surgery; Surgery date: 6+ months; Surgery type: Cabg 1989 TECHNIQUE: Imaging protocol: Radiologic exam of the chest. Views: 1 view. COMPARISON: CR (CHEST, ) 07/18/2024 6:33 AM FINDINGS: Lungs: There is pulmonary vascular congestion increased interstitial opacities. The lungs are hypoinflated likely accentuating lung markings. Pleural spaces: Unremarkable. No pleural effusion. No pneumothorax. Heart/Mediastinum: The heart is stable in size. Bones/joints: Sternotomy wires present. Old left-sided rib fractures present. No acute bony abnormality. Degenerative changes involve the spine. XR/XR chest 1V portable [id number] IMPRESSION: 1. Low lung volumes. 2. Cardiomegaly with pulmonary vascular congestion and suspected mild interstitial edema.
[2024-07-20] MEDS: FUROsemide 10 mg/mL SDV 4mL 40 MG IVP (18:02)
--- NOTE | 2024-07-20 18:39 | PC.NURSE ---
Report called to PHYLLIS Gan on MedSurg. Patient transferred into a wheelchair with 1 minimal assist. Patient taken to room 256-2 via wheelchair with all belongings.
--- NOTE | 2024-07-20 18:47 | PC.NURSE ---
Patient's son, Jos Guerrero), notified that patient was moved upstairs to [facility] room 256-2.
[2024-07-20] MEDS: budesonide 0.5 mg/2 mL Neb INHALATION (19:24)
[2024-07-20] MEDS: clopidogrel 75 mg Tablet PO (20:09)
[2024-07-20 21:28] LABS: Glucose Point of Care 411 mg/dL (70-110)
[2024-07-21] VITALS (14 sets, daily range): BP systolic 103–152; BP diastolic 63–76; PULSE 66–79; RESP 15–20; TEMP 36.1–37; O2SAT 94–98
[2024-07-21] MEDS: ipratropium-albuterol 3 mL Neb INHALATION ×4 (01:14→19:32)
[2024-07-21 04:21] LABS: Basophils % 0.1 %; Hematocrit 33.1 % (36-47); Lymphocytes # 0.3 10^3/uL (0.8-4.8); Lymphocytes % 2.1 %; Mean Corpuscular HGB Conc 31.1 g/dL (30-55); Mean Corpuscular Hemoglobin 25.9 pg (27-33); Mean Corpuscular Volume 83.4 fl (85-98); Mean Platelet Volume 13.1 fL (7.4-10.4); Monocytes # 0.9 10^3/uL (0.2-0.9); Monocytes % 5.6 %; Neutrophils # 14.71 10^3/uL (1.8-7.7); Neutrophils % 91.7 %; Nucleated Red Blood Cells % 0 %; Platelet Count 245 10^3/cmm (157-399); Red Blood Count 3.97 10^6/uL (3.85-5.65); White Blood Count 16.03 10^3/uL (3.29-11.43)
[2024-07-21 04:39] LABS: Alanine Aminotransferase 24 U/L (0-33); Albumin Level 3.6 g/dL (3.5-5.2); Alkaline Phosphatase 98 U/L (35-105); Anion Gap 17.7 (5-19); Aspartate Amino Transferase 20 U/L (0-32); Blood Urea Nitrogen 52 mg/dL (8-23); Calcium 9.1 mg/dL (8.5-10.5); Carbon Dioxide 27 mmol/L (22-29); Chloride 101 mmol/L (98-107); Creatinine Clr Calc Pharmacy 30.4097; Globulin 3.1 g/dL (1.3-4.6); Glucose 96 mg/dL (65-115); Magnesium 2.2 mg/dL (1.7-2.3); Osmolality Calculated 306 mOsm/kg (285-295); Potassium 4.7 mmol/L (3.5-5.1); Sodium 141 mmol/L (136-145); Total Bilirubin 0.3 mg/dL (0.15-1.2); Total Protein 6.7 g/dL (6.6-8.7)
[2024-07-21 04:57] LABS: Folate Level 4.2 ng/mL (4.8-37.3)
[2024-07-21] MEDS: methylPREDNISolone sod succ 40 mg/mL INJ IVP (05:11)
[2024-07-21 06:32] LABS: Glucose Point of Care 226 mg/dL (70-110)
[2024-07-21] MEDS: benzonatate 100 mg Capsule 200 MG PO (06:39)
[2024-07-21] MEDS: budesonide 0.5 mg/2 mL Neb INHALATION ×2 (08:11→19:32)
[2024-07-21] MEDS: ranolazine (12HR) 500 mg Tablet PO ×2 (08:44→17:49)
[2024-07-21] MEDS: insulin lispro 100 unit/1 mL SUBCUT ×4 (08:44→20:11)
[2024-07-21] MEDS: insulin glargine 100 units/1 mL 20 UNIT SUBCUT (08:45)
[2024-07-21] MEDS: FUROsemide 10 mg/mL SDV 4mL 40 MG IVP (08:46)
--- NOTE | 2024-07-21 08:50 | P.PN_ITS ---
Subjective 2 Subjective: Patient doing well. No chest pain. Vitals/I&O/Wt Last Vital Signs Temp 98.0 F 07/21/24 04:00 Pulse 68 07/21/24 08:14 Resp 18 07/21/24 08:14 BP 114/76 07/21/24 04:00 Pulse Ox 95 07/21/24 08:14 O2 Del Method Nasal Cannula 07/21/24 08:14 O2 Flow Rate 2 07/21/24 08:14 FiO2 35 07/19/24 09:03 07/20/24 07/21/24 07/21/24 22:59 07:59 14:59 Intake Total 360 / 1330 Output Total 375 / 375 Balance -15 / 955 Weight last 48 hrs Weight 169 lb Weight 166 lb 7.184 oz Physical Exam 2 Narrative: GENERAL: Patient is alert, awake and oriented x3. HEART: Regular S1 and S2. No murmur, rub or gallop. LUNGS: Clear to auscultate bilaterally. CENTRAL NERVOUS SYSTEM: Grossly nonfocal. EXTREMITIES: Lower extremities with out edema bilaterally. Urinary Catheter Management: Huff: Cath Placed During This Visit: yes Reason for Continuing Indwelling Catheter: Accurate Measurement of Urinary Output in Critically Ill Patients Urinary Catheter Date of Insertion: 07/18/24 Urinary Catheter Time of Insertion: 06:51 Data 07/23/24 05:37 07/23/24 05:37 Micro: Microbiology 07/18/24 09:15 Gram Stain - Final Sputum - Endotracheal Tube Aspirate Sputum Culture - Final A&P Assessment and plan (1) CAD (coronary artery disease): (2) Congestive heart failure: (3) Troponin level elevated: Plan Patient is stable from cardiac standpoint. Continue current medications. Thank you for involving us with care of this patient. We will continue to follow. Please call with questions. PDMP PDMP Reviewed: Not Reviewed Attestations 2 Medical Necessity Statement*: Care expected to cross 2 midnights. Coding Level of Care Code Acute Code for [facility] Diagnoses CAD (coronary artery disease) I25.10 Congestive heart failure I50.9 Troponin level elevated R79.89
[2024-07-21] MEDS: cefTRIAXone 1,000 mg SDV 1000 MG IVP (11:25)
[2024-07-21] MEDS: sodium chloride 0.9% 1,000 ML 50 ML IV (11:25)
[2024-07-21 12:09] LABS: Glucose Point of Care 322 mg/dL (70-110)
--- NOTE | 2024-07-21 12:38 | P.PN_ITS ---
Subjective 2 Subjective: No acute events overnight. Seen on MedSur floor. States she is feeling better. States breathing is improving. Currently on 2 L saturating more than 95%. Has remained hemodynamically stable. Vitals/I&O/Wt Last Vital Signs Temp 98.1 F 07/21/24 08:00 Pulse 68 07/21/24 08:14 Resp 18 07/21/24 08:14 BP 103/66 07/21/24 08:00 Pulse Ox 95 07/21/24 08:14 O2 Del Method Nasal Cannula 07/21/24 08:14 O2 Flow Rate 2 07/21/24 08:14 FiO2 35 07/19/24 09:03 07/20/24 07/21/24 07/21/24 22:59 07:59 14:59 Intake Total 360 / 1330 360 / 360 Output Total 375 / 375 Balance -15 / 955 360 / 360 Weight last 48 hrs Weight 76.657 kg Weight 75.5 kg Physical Exam 2 Narrative: General: No acute distress, AO x3 HEENT: PERRLA, pupils bilaterally equal and reactive Chest: Normal vesicular breath sounds, no added sounds, equal good air entry bilaterally CVS: S1-S2 regular, no murmurs, no tachycardia, no gallops, no rubs Abdomen: Soft, nontender, no organomegaly, bowel sounds present Neuro: No focal deficits, no facial deformity, AO x3, power 5/5 in all limbs Urinary Catheter Management: Huff: Cath Placed During This Visit: yes Reason for Continuing Indwelling Catheter: Accurate Measurement of Urinary Output in Critically Ill Patients Urinary Catheter Date of Insertion: 07/18/24 Urinary Catheter Time of Insertion: 06:51 Data 07/21/24 01:50 07/21/24 01:50 Micro: Microbiology 07/18/24 09:15 Gram Stain - Final Sputum - Endotracheal Tube Aspirate Sputum Culture - Final A&P Assessment and plan (1) Acute respiratory failure with hypoxia: Post self extubation on 07/19. Respiratory failure in setting of CHF and COPD exacerbation. Oxygen supplementation keeping saturation over 88 to 90%. (2) Congestive heart failure: Limited echocardiogram showed an EF of 50 to 55%, mild hypokinesia of inferior lateral anterolateral parkinson. Mildly reduced RV function, dilated left atrium. Overall patient around 500 cc positive. Strict and proper charting, daily weights. Fluid restriction to less than 1500 cc. IV Lasix 40 mg daily. (3) Troponin level elevated: Reviewed echocardiogram. Reviewed cardiology note, appreciate consultation. No options for revascularization. Continue medical management. Denies active chest pain. Appreciate recent A1c and lipid panel. Continue with Plavix, statin. Add home dose of Ranexa (4) CKD (chronic kidney disease): Baseline creatinine 1.2-1.5. Recently as has been 1.8. Strict input output charting, daily weights. Medical reconciliation done for nephrotoxic drugs. Monitor BMP daily. (5) Type 2 diabetes mellitus without complications: Continue with Lantus 20 units daily. Insulin sliding scale before meals and at bedtime. Appreciate recent A1c. (6) COPD (chronic obstructive pulmonary disease): In mild exacerbation. Wean Solu-Medrol to 40 mg twice daily. Add Pulmicort twice daily. Continue with DuoNeb every 6 hour. Plan for aggressive steroid taper in next 24 to 48 hours. Plan Paroxysmal atrial flutter: Currently in sinus rhythm. Monitor on telemetry. Continue amiodarone. Leukocytosis: Follow-up blood culture. Sputum culture as possible. Cannot rule out pneumonia. UA negative for UTI. Continue with azithromycin to finish a 3-day course. Add IV ceftriaxone 1 g daily. Appreciate old culture history with history of UTI with Klebsiella and E. coli in the past. Sensitive to ceftriaxone. Full code Soft mechanical cardiac diet PT evaluation Protonix for PUD prophylaxis Lovenox for DVT prophylaxis. Plan for the day: Hemodynamically stable. Denies any chest pain. -Supplementation keeping saturation over 88 to 90%. Out of bed to chair. Physical therapy. Seems slightly dehydrated today. Creatinine up to 1.7. Start on gentle hydration with normal saline at 50 cc/h. Repeat BMP in afternoon. Hold off on any further diuresis. Watch for fluid overload. Blood sugars better but still elevated. Change Lantus to 20 units every morning, 10 units nightly. Wean Solu-Medrol 40 mg IV daily. With weaning of Solu-Medrol blood sugars will also improve. Hypoglycemia protocol. Await cardiology recommendations for further ACS workup if needed. PDMP PDMP Reviewed: Not Reviewed Attestations 2 Medical Necessity Statement*: Requires further hospitalization for management of hypoxic respiratory failure with concerns for diastolic congestive heart failure, acute kidney injury Diagnoses Acute respiratory failure with hypoxia J96.01 Congestive heart failure I50.9 Troponin level elevated R79.89 CKD (chronic kidney disease) N18.9 Type 2 diabetes mellitus without complications E11.9 COPD (chronic obstructive pulmonary disease) J44.9
[2024-07-21 15:26] LABS: Anion Gap 17.3 (5-19); Blood Urea Nitrogen 56 mg/dL (8-23); Calcium 8.6 mg/dL (8.5-10.5); Carbon Dioxide 28 mmol/L (22-29); Chloride 96 mmol/L (98-107); Glucose 327 mg/dL (65-115); Osmolality Calculated 312 mOsm/kg (285-295); Potassium 4.3 mmol/L (3.5-5.1); Sodium 137 mmol/L (136-145)
[2024-07-21] MEDS: enoxaparin 30 mg/0.3 mL Syringe SUBCUT (15:42)
[2024-07-21 17:30] LABS: Glucose Point of Care 251 mg/dL (70-110)
[2024-07-21] MEDS: atorvastatin 40 mg Tablet PO (17:49)
[2024-07-21] MEDS: pantoprazole DR 40 mg Tablet PO (17:49)
[2024-07-21] MEDS: nystatin powder 15 gm Btl 1 APPLIC TOPICAL (17:50)
[2024-07-21] MEDS: insulin glargine 100 units/1 mL 10 UNIT SUBCUT (20:12)
[2024-07-21] MEDS: clopidogrel 75 mg Tablet PO (20:12)
[2024-07-21 21:16] LABS: Glucose Point of Care 174 mg/dL (70-110)
[2024-07-22] VITALS (10 sets, daily range): BP systolic 110–118; BP diastolic 64–76; PULSE 60–80; RESP 16–20; TEMP 36.4–36.7; O2SAT 91–99
[2024-07-22 00:15] LABS: Glucose Point of Care 56 mg/dL (70-110)
[2024-07-22 00:36] LABS: Glucose Point of Care 89 mg/dL (70-110)
[2024-07-22] MEDS: TRAMadol 50 mg Tablet PO (02:42)
[2024-07-22] MEDS: ipratropium-albuterol 3 mL Neb INHALATION ×4 (02:50→20:16)
[2024-07-22 03:01] LABS: Basophils % 0.1 %; Hematocrit 35.8 % (36-47); Lymphocytes # 0.8 10^3/uL (0.8-4.8); Lymphocytes % 5.7 %; Mean Corpuscular HGB Conc 30.4 g/dL (30-55); Mean Corpuscular Hemoglobin 25.8 pg (27-33); Mean Corpuscular Volume 84.6 fl (85-98); Mean Platelet Volume 12.6 fL (7.4-10.4); Monocytes # 1.6 10^3/uL (0.2-0.9); Monocytes % 10.8 %; Neutrophils # 12.31 10^3/uL (1.8-7.7); Neutrophils % 82.9 %; Nucleated Red Blood Cells % 0 %; Platelet Count 262 10^3/cmm (157-399); Red Blood Count 4.23 10^6/uL (3.85-5.65); Red Cell Distribution Width 15.1 % (12.1-15.1); White Blood Count 14.84 10^3/uL (3.29-11.43)
[2024-07-22 03:17] LABS: Magnesium 2.3 mg/dL (1.7-2.3)
[2024-07-22 03:25] LABS: Alanine Aminotransferase 28 U/L (0-33); Albumin Level 3.4 g/dL (3.5-5.2); Alkaline Phosphatase 98 U/L (35-105); Anion Gap 17.6 (5-19); Aspartate Amino Transferase 27 U/L (0-32); Blood Urea Nitrogen 52 mg/dL (8-23); Calcium 8.4 mg/dL (8.5-10.5); Carbon Dioxide 27 mmol/L (22-29); Chloride 100 mmol/L (98-107); Globulin 3.2 g/dL (1.3-4.6); Glucose 219 mg/dL (65-115); Osmolality Calculated 311 mOsm/kg (285-295); Potassium 4.6 mmol/L (3.5-5.1); Sodium 140 mmol/L (136-145); Total Bilirubin 0.3 mg/dL (0.15-1.2); Total Protein 6.6 g/dL (6.6-8.7)
[2024-07-22 06:52] LABS: Glucose Point of Care 229 mg/dL (70-110)
[2024-07-22] MEDS: budesonide 0.5 mg/2 mL Neb INHALATION ×2 (08:22→20:16)
[2024-07-22] MEDS: insulin lispro 100 unit/1 mL SUBCUT ×4 (09:08→20:33)
[2024-07-22] MEDS: methylPREDNISolone sod succ 40 mg/mL INJ IVP (09:08)
[2024-07-22] MEDS: insulin glargine 100 units/1 mL 20 UNIT SUBCUT (09:08)
[2024-07-22] MEDS: nystatin powder 15 gm Btl 1 APPLIC TOPICAL ×2 (09:09→17:20)
[2024-07-22] MEDS: ranolazine (12HR) 500 mg Tablet PO ×2 (09:09→17:20)
--- NOTE | 2024-07-22 09:11 | P.PN_ITS ---
<Statement entered by Boaz Jaramillo M.D - 08/03/24 09:26> Patient was cared for in conjunction with an advanced practice practitioner. I reviewed the chart and all pertinent data including imaging, telemetry, and laboratory results. I discussed the patient in detail with the advanced practice practitioner. Please see their note for complete progress note, testing result and agreed upon plan of care for the patient. Subjective 2 Subjective: Patient sitting up in bed today. She has no complaints. She is still wearing oxygen. She states she wears at home at night but not all the time. O2 sat 97% on 2 L nasal cannula. Lungs are clear throughout no edema. No chest pain or shortness of breath reported by patient this morning. Vitals/I&O/Wt Last Vital Signs Temp 97.7 F 07/22/24 07:18 Pulse 70 07/22/24 08:29 Resp 20 H 07/22/24 08:24 BP 118/76 07/22/24 07:18 Pulse Ox 97 07/22/24 08:24 O2 Del Method Nasal Cannula 07/22/24 08:24 O2 Flow Rate 2 07/22/24 08:24 FiO2 35 07/19/24 09:03 07/21/24 07/22/24 07/22/24 22:59 06:59 14:59 Intake Total 480 / 1320 240 / 240 Output Total 1000 / 1000 500 / 1500 Balance -520 / 320 -500 / -180 240 / 240 Weight last 48 hrs Weight 169 lb 4.8 oz Weight 169 lb Physical Exam 2 Narrative: General: No apparent distress, healthy appearing, well nourished Muskuloskeletal: Full ROM Lymphatic: no lymphedema noted Respiratory: Normal respiratory effort, clear to auscultation bilaterally throughout all lung matta, no use of accessory muscles Cardio: No JVD, regular rate, regular rhythm, S1 S2 normal, no murmurs, peripheral pulses 2+ radial palpated bilaterally GI: Normal to inspection, nondistended Extremities: Full ROM, normal, normal capillary refill, no cyanosis or edema Neuro: Alert and oriented x4, no focal motor deficits Psych: Affect normal, denies suicidal ideation, mental status grossly normal Skin: No rashes or lesions noted, no wounds Urinary Catheter Management: Huff: Cath Placed During This Visit: yes Reason for Continuing Indwelling Catheter: Other Urinary Catheter Date of Insertion: 07/18/24 Urinary Catheter Time of Insertion: 06:51 Data 07/22/24 02:16 07/22/24 02:16 Micro: Microbiology 07/22/24 02:20 Occult Blood (FIT) - Final Stool - Stool Aspirate A&P Assessment and plan (1) CAD (coronary artery disease): (2) Congestive heart failure: (3) Troponin level elevated: Plan Patient is stable from a cardiac standpoint. May be discharged home when ok with hospitalist team. PDMP PDMP Reviewed: Not Reviewed Attestations 2 Medical Necessity Statement*: Deferred to primary. Coding Level of Care Code Acute Code for [facility] Diagnoses CAD (coronary artery disease) I25.10 Congestive heart failure I50.9 Troponin level elevated R79.89
[2024-07-22 11:08] LABS: Glucose Point of Care 228 mg/dL (70-110)
[2024-07-22] MEDS: cefTRIAXone 1,000 mg SDV 1000 MG IVP (11:19)
--- NOTE | 2024-07-22 11:20 | PC.NURSE ---
database report writer called pcp office to schedule hosp f/u appt. Dr Delgado is out of office next available appt is 9 days out. database report writer scheduled for first avail
--- NOTE | 2024-07-22 12:34 | PC.SOCIAL ---
IMM Update pg 2 of IMM Updated and reviewed w/ patient. Copy provided and copy dated, initialed and placed in chart.
--- NOTE | 2024-07-22 16:06 | P.PN_ITS ---
Subjective 2 Subjective: Patient was feeling better today. No CP or dyspnea. No LE edema Vitals/I&O/Wt Last Vital Signs Temp 98.0 F 07/22/24 15:47 Pulse 67 07/22/24 15:47 Resp 18 07/22/24 15:47 BP 115/74 07/22/24 15:47 Pulse Ox 91 07/22/24 15:47 O2 Del Method Room Air 07/22/24 15:47 O2 Flow Rate 2 07/22/24 08:24 FiO2 35 07/19/24 09:03 07/22/24 07/22/24 07/22/24 06:59 14:59 22:59 Intake Total 1480 / 1480 Output Total 500 / 1500 Balance -500 / -180 1480 / 1480 Weight last 48 hrs Weight 76.793 kg Weight 76.657 kg Physical Exam 2 Narrative: General: No acute distress, AO x3 HEENT: PERRLA, pupils bilaterally equal and reactive Chest: Normal vesicular breath sounds, no added sounds, equal good air entry bilaterally CVS: S1-S2 regular, no murmurs, no tachycardia, no gallops, no rubs Abdomen: Soft, nontender, no organomegaly, bowel sounds present Neuro: No focal deficits, no facial deformity, AO x3, power 5/5 in all limbs Urinary Catheter Management: Huff: Cath Placed During This Visit: yes Reason for Continuing Indwelling Catheter: Other Urinary Catheter Date of Insertion: 07/18/24 Urinary Catheter Time of Insertion: 06:51 Data 07/22/24 02:16 07/22/24 02:16 Micro: Microbiology 07/22/24 02:20 Occult Blood (FIT) - Final Stool - Stool Aspirate A&P Assessment and plan (1) Acute respiratory failure with hypoxia: (2) Congestive heart failure: (3) Troponin level elevated: (4) CKD (chronic kidney disease): (5) Type 2 diabetes mellitus without complications: (6) COPD (chronic obstructive pulmonary disease): Plan Acute Hypoxic Respiratory Failure - Multifactorial etiology. - Intubated on admit, self-extubated on 07/19. - On room air at time of evaluation. Differential Diagnosis: 1. COPD exacerbation. 2. Possible contribution from amiodarone use. 3. HF exacerbation Plan: 1. Prescribe albuterol nebulizer and rescue inhaler for home use. 2. Discuss with Dr. Jaramillo (medical office rep) about potentially changing amiodarone and consider pulmonary function tests. 3. Give one more dose of steroids tomorrow morning and reassess need for oral steroid course on discharge. 4. Continuous pulse oximetry monitoring. 5. Incentive spirometry, deep breathing exercises. Acute Kidney Injury - Creatinine improved from 1.7 to 1.6 after holding diuretics and giving fluids, but not back to baseline of 1.0. Differential Diagnosis: 1. Pre-renal azotemia due to volume depletion. 2. Acute tubular necrosis secondary to hypoxia. Plan: 1. Continue IVF until PM 2. May need to hold diuretics for a few days after discharge. 3. BMP in am . Paroxysmal Atrial Flutter - Currently in normal sinus rhythm. Plan: 1. Continue amiodarone Possible Urinary Tract Infection - Receiving ceftriaxone 1g IV daily. Plan: 1. Continue antibiotics and monitor symptoms. 2. Urinalysis and culture results pending. 3. Remove Huff catheter today and monitor voiding. Disposition: Anticipated discharge tomorrow pending kidney function and ability to void after Huff removal. Son to pickle cutter from hospital. PDMP PDMP Reviewed: Not Reviewed Attestations 2 Medical Necessity Statement*: Requires further hospitalization for management of hypoxic respiratory failure with concerns for diastolic congestive heart failure, acute kidney injury Coding Level of Care Code Acute Code for [facility] Diagnoses Acute respiratory failure with hypoxia J96.01 Congestive heart failure I50.9 Troponin level elevated R79.89 CKD (chronic kidney disease) N18.9 Type 2 diabetes mellitus without complications E11.9 COPD (chronic obstructive pulmonary disease) J44.9
[2024-07-22] MEDS: enoxaparin 30 mg/0.3 mL Syringe SUBCUT (16:28)
[2024-07-22 16:46] LABS: Glucose Point of Care 285 mg/dL (70-110)
[2024-07-22] MEDS: pantoprazole DR 40 mg Tablet PO (17:20)
[2024-07-22] MEDS: atorvastatin 40 mg Tablet PO (17:20)
[2024-07-22 20:21] LABS: Glucose Point of Care 308 mg/dL (70-110)
[2024-07-22] MEDS: clopidogrel 75 mg Tablet PO (20:33)
[2024-07-22] MEDS: insulin glargine 100 units/1 mL 10 UNIT SUBCUT (20:33)
[2024-07-23] VITALS (8 sets, daily range): BP systolic 126–147; BP diastolic 62–85; PULSE 64–77; RESP 16–18; TEMP 36.6; O2SAT 88–99; BMI 34.1
[2024-07-23] MEDS: ipratropium-albuterol 3 mL Neb INHALATION ×2 (02:09→08:16)
[2024-07-23 05:43] LABS: Glucose Point of Care 89 mg/dL (70-110)
[2024-07-23 05:46] LABS: Basophils % 0.1 %; Eosinophils % 0.2 %; Hematocrit 37.6 % (36-47); Lymphocytes % 7.6 %; Mean Corpuscular HGB Conc 30.3 g/dL (30-55); Mean Corpuscular Volume 85.8 fl (85-98); Mean Platelet Volume 12.1 fL (7.4-10.4); Monocytes # 1.3 10^3/uL (0.2-0.9); Monocytes % 10.1 %; Neutrophils # 10.47 10^3/uL (1.8-7.7); Neutrophils % 81.6 %; Nucleated Red Blood Cells % 0 %; Platelet Count 277 10^3/cmm (157-399); Red Blood Count 4.38 10^6/uL (3.85-5.65); Red Cell Distribution Width 14.7 % (12.1-15.1); White Blood Count 12.82 10^3/uL (3.29-11.43)
[2024-07-23 06:05] LABS: Anion Gap 14.2 (5-19); Blood Urea Nitrogen 34 mg/dL (8-23); Carbon Dioxide 29 mmol/L (22-29); Chloride 104 mmol/L (98-107); Potassium 5.2 mmol/L (3.5-5.1); Sodium 142 mmol/L (136-145)
[2024-07-23 06:06] LABS: Alanine Aminotransferase 29 U/L (0-33); Albumin Level 3.4 g/dL (3.5-5.2); Alkaline Phosphatase 94 U/L (35-105); Aspartate Amino Transferase 20 U/L (0-32); Calcium 8.6 mg/dL (8.5-10.5); Globulin 3.1 g/dL (1.3-4.6); Glucose 90 mg/dL (65-115); Osmolality Calculated 301 mOsm/kg (285-295); Total Bilirubin 0.3 mg/dL (0.15-1.2); Total Protein 6.5 g/dL (6.6-8.7)
[2024-07-23 06:18] LABS: Magnesium 2.3 mg/dL (1.7-2.3)
[2024-07-23] MEDS: budesonide 0.5 mg/2 mL Neb INHALATION (08:16)
[2024-07-23] MEDS: predniSONE 20 mg Tablet 40 MG PO (09:17)
[2024-07-23] MEDS: insulin glargine 100 units/1 mL 20 UNIT SUBCUT (09:17)
[2024-07-23] MEDS: nystatin powder 15 gm Btl 1 APPLIC TOPICAL (09:17)
[2024-07-23] MEDS: amiodarone 200 mg Tablet PO (09:17)
[2024-07-23] MEDS: ranolazine (12HR) 500 mg Tablet PO (09:17)
[2024-07-23] MEDS: sodium polystyrene sulfonate 15 gm/60 mL Btl PO (09:29)
--- NOTE | 2024-07-23 10:55 | P.DS_ITS ---
Discharge Providers Date of Admission: 07/18/24 10:06 Date of Discharge: July 23, 2024 Attending Provider at Admission: Willian Richard Attending Provider at Discharge: Mario Castillo Primary Care Provider: Antonio Delgado MD Diagnoses at Discharge Discharge Diagnosis (1) Acute respiratory failure with hypoxia: Status: Resolved (2) Congestive heart failure: Status: Chronic (3) Troponin level elevated: Status: Inactive (4) CKD (chronic kidney disease): Status: Chronic (5) Type 2 diabetes mellitus without complications: Status: Inactive (6) COPD (chronic obstructive pulmonary disease): Status: Chronic Reason for Visit Reason for Visit: resp distress Hospital Course Hospital Course Acute Hypoxic Respiratory Failure - Multifactorial etiology. - Intubated on admit, self-extubated on 07/19. - On room air at time of evaluation. - Patient was treated with IV steroids and diuretics during hospitalization. She was discharged on lasix. Acute Kidney Injury - Creatinine improved from 1.7 to 1.6 after holding diuretics and giving fluids, but not back to baseline of 1.0. - This had improved to a creatinine of 1.2 at discharge. Paroxysmal Atrial Flutter - Currently in normal sinus rhythm. Plan: 1. Continue home regimen Possible Urinary Tract Infection for which patient was continued on rocephin during hosptialization however culture were negative. No further antibiotics were continued.Huff was removed and paitent was able to void. Advised to follow up with PCP and cardiology following discharge. Physical Exam Narrative: General: No acute distress, AO x3 HEENT: PERRLA, pupils bilaterally equal and reactive Chest: Normal vesicular breath sounds, no added sounds, equal good air entry bilaterally CVS: S1-S2 regular, no murmurs, no tachycardia, no gallops, no rubs Abdomen: Soft, nontender, no organomegaly, bowel sounds present Neuro: No focal deficits, no facial deformity, AO x3, power 5/5 in all limbs Urinary Catheter Management: Huff: Cath Placed During This Visit: yes Reason for Continuing Indwelling Catheter: Other Urinary Catheter Date of Insertion: 07/18/24 Urinary Catheter Time of Insertion: 06:51 Discharge Data Studies Completed and Pending Completed Studies During Hospitalization Category Date Time Status XR chest 1V portable [id number] Routine Exams 07/20/24 17:53 Completed XR chest 1V portable [id number] Stat Exams 07/18/24 06:32 Completed CV. echo limited [id number] Routine Ultrasound 07/18/24 10:36 Completed Radiology Impressions Chest X-Ray 07/20/24 17:53 IMPRESSION: 1. Low lung volumes. 2. Cardiomegaly with pulmonary vascular congestion and suspected mild interstitial edema. Laboratory Results WBC 12.82 10^3/uL (3.29-11.43) H 07/23/24 05:37 RBC 4.38 10^6/uL (3.85-5.65) 07/23/24 05:37 Hgb 11.40 g/dL (11.27-16.99) 07/23/24 05:37 Hct 37.6 % (36-47) 07/23/24 05:37 MCV 85.8 fl (85-98) 07/23/24 05:37 MCH 26.0 pg (27-33) L 07/23/24 05:37 MCHC 30.3 g/dL (30-55) 07/23/24 05:37 RDW 14.7 % (12.1-15.1) 07/23/24 05:37 Plt Count 277 10^3/cmm (157-399) 07/23/24 05:37 MPV 12.1 fL (7.4-10.4) H 07/23/24 05:37 Neut % (Auto) 81.6 % 07/23/24 05:37 Lymph % (Auto) 7.6 % 07/23/24 05:37 [place] % (Auto) 10.1 % 07/23/24 05:37 Eos % (Auto) 0.2 % 07/23/24 05:37 Baso % (Auto) 0.1 % 07/23/24 05:37 Neut # (Auto) 10.47 10^3/uL (1.8-7.7) H 07/23/24 05:37 Lymph # (Auto) 1.0 10^3/uL (0.8-4.8) 07/23/24 05:37 [place] # (Auto) 1.3 10^3/uL (0.2-0.9) H 07/23/24 05:37 Eos # (Auto) 0.0 10^3/uL (0.0-0.8) 07/23/24 05:37 Baso # (Auto) 0.0 10^3/uL (0.0-0.1) 07/23/24 05:37 Nucleated RBC % (auto) 0 % 07/23/24 05:37 Nucleated RBCs # 0.0 /100WBC 07/23/24 05:37 Specimen Type Arterial 07/18/24 08:03 Sample Site Brachial, right 07/18/24 08:03 ABG pH 7.36 (7.35-7.45) 07/18/24 08:03 ABG pCO2 48.5 mmHg (35-45) H 07/18/24 08:03 ABG pO2 62.7 mmHg (80.0-100.0) L 07/18/24 08:03 ABG PO2/FiO2 Ratio 104 07/18/24 08:03 ABG HCO3 27.2 mmol/L (22-26) H 07/18/24 08:03 ABG O2 Saturation 91.8 07/18/24 08:03 ABG Base Excess 1.2 mmol/L (-2.0-2.0) 07/18/24 08:03 Tanner Test Pos 07/18/24 08:03 A-a O2 Gradient 39.8 mmHg (5-10) H 07/18/24 08:03 Hematocrit 32.9 % (37-47) L 07/18/24 08:03 Hgb O2 Saturation 89.9 % (95-100) L 07/18/24 08:03 Carboxyhemoglobin 0.9 %THgb (0.4-20.1) 07/18/24 08:03 Methemoglobin 1.2 % (0.4-1.5) 07/18/24 08:03 Total Hemoglobin 10.7 g/dL (12-16) L 07/18/24 08:03 Sodium 139.0 mmol/L (131-143) 07/18/24 08:03 Potassium 3.6 mmol/L (3.5-5.0) 07/18/24 08:03 Glucose 283.0 mg/dL (70-115) H 07/18/24 08:03 Ionized Calcium 1.4 mmol/L (1.1-1.4) 07/18/24 08:03 O2 Delivery Device Vent 07/18/24 08:03 FiO2 60.0 % 07/18/24 08:03 Tidal Volume 0.45 07/18/24 08:03 PEEP 6.0 cmH20 07/18/24 08:[address] Stenographer ID [email or web address] 07/18/24 08:03 Sodium 142 mmol/L (136-145) 07/23/24 05:37 Potassium 5.2 mmol/L (3.5-5.1) H 07/23/24 05:37 Chloride 104 mmol/L (98-107) 07/23/24 05:37 Carbon Dioxide 29 mmol/L (22-29) 07/23/24 05:37 Anion Gap 14.2 (5-19) 07/23/24 05:37 BUN 34 mg/dL (8-23) H 07/23/24 05:37 Creatinine 1.2 mg/dL (0.5-0.9) H 07/23/24 05:37 GFR Calculation Not Reportable 07/23/24 05:37 Glucose 90 mg/dL (65-115) 07/23/24 05:37 POC Glucose 89 mg/dL (70-110) 07/23/24 05:31 Calculated Osmolality 301 mOsm/kg (285-295) H 07/23/24 05:37 Lactic Acid 2.3 mmol/L (0.5-2.2) H 07/18/24 06:27 Lactic Acid (Sepsis) 5.6 mmol/L (0.5-2.2) H* 07/18/24 10:04 Calcium 8.6 mg/dL (8.5-10.5) 07/23/24 05:37 Magnesium 2.3 mg/dL (1.7-2.3) 07/23/24 05:37 Iron 20 ug/dL (37-145) L 07/20/24 05:47 TIBC 343 mcg/dl 07/20/24 05:47 % Saturation 5.8 % (20-50) L 07/20/24 05:47 Unsat Iron Binding 323 ug/dL (112-347) 07/20/24 05:47 Total Bilirubin 0.3 mg/dL (0.15-1.2) 07/23/24 05:37 AST 20 U/L (0-32) 07/23/24 05:37 ALT 29 U/L (0-33) 07/23/24 05:37 Alkaline Phosphatase 94 U/L (35-105) 07/23/24 05:37 Troponin T Baseline 40 ng/L (0-10) H 07/18/24 06:27 Troponin T 120 Minute 37.89 ng/L (0-10) H 07/18/24 08:22 Delta Troponin T -2.11 ABS# (0-10) L 07/18/24 08:22 Troponin T Hi Sens 6Hr 37.45 ng/L (0-10) H 07/18/24 12:35 Troponin T Hi Sens 6Hr Delta -2.55 ng/L (0-12) L 07/18/24 12:35 NT-Pro-B Natriuret Pep 8326 pg/mL (0-450) H 07/18/24 06:27 Total Protein 6.5 g/dL (6.6-8.7) L 07/23/24 05:37 Albumin 3.4 g/dL (3.5-5.2) L 07/23/24 05:37 Globulin 3.1 g/dL (1.3-4.6) 07/23/24 05:37 Vitamin B12 604 pg/mL (232-1245) 07/20/24 05:47 Folate 4.2 ng/mL (4.8-37.3) L 07/21/24 01:50 Procalcitonin 0.51 ng/mL (0-0.5) H 07/20/24 05:47 Urine Color Yellow (Yellow) 07/18/24 06:50 Urine Appearance Clear (CLEAR) 07/18/24 06:50 Urine pH 5.0 (5-7) 07/18/24 06:50 Ur Specific [place] 1.010 (1.005-1.030) 07/18/24 06:50 Urine Protein Negative (Negative) 07/18/24 06:50 Urine Glucose (UA) 2+ (Normal) H 07/18/24 06:50 Urine Ketones Negative (Negative) 07/18/24 06:50 Urine Blood Negative (Negative) 07/18/24 06:50 Urine Nitrate Negative (Negative) 07/18/24 06:50 Urine Bilirubin Negative (Negative) 07/18/24 06:50 Urine Urobilinogen 0.2 mg/dL (Negative) 07/18/24 06:50 Ur Leukocyte Esterase Negative (Negative) 07/18/24 06:50 Amorphous Sediment Not Reportable 07/18/24 06:50 Nasal MRSA (PCR) Not detected (Not Detecte) 07/18/24 14:00 Serum Ketones Negative (Negative) 07/18/24 06:27 Influenza A (PCR) Negative (Negative) 07/18/24 06:55 Influenza Type B (PCR) Negative (Negative) 07/18/24 06:55 RSV (PCR) Negative (Negative) 07/18/24 06:55 SARS-CoV-2 (PCR) Negative (Negative) 07/18/24 06:55 Vitals Last Vital Signs Temp 97.8 F 07/23/24 08:00 Pulse 72 07/23/24 08:17 Resp 16 07/23/24 08:17 BP 147/85 07/23/24 08:00 Pulse Ox 88 L 07/23/24 10:48 O2 Del Method Nasal Cannula 07/23/24 08:17 O2 Flow Rate 2 07/23/24 10:48 FiO2 35 07/19/24 09:03 Discharge Plan Discharge Patient Disposition: Home Condition: Stable Prescriptions: New (DME) nebulizer and compressor [[id number] Nebulizer] Device See Rx Instructions .Route Qty: 1 0RF Rx Instructions: As directed albuterol sulfate 2.5 mg /3 mL (0.083 %) solution for nebulization 2.5 mg inhalation TID PRN (Reason: shortness of breath or wheezing) 30 Days Qty: 90 0RF budesonide-formoterol [Symbicort] 80-4.5 mcg/actuation HFA aerosol inhaler 1 inh inhalation BID Qty: 10.2 0RF Continued clopidogrel 75 mg tablet 75 mg PO BEDTIME Qty: 90 3RF nitroglycerin 0.4 mg tablet, sublingual 0.4 mg buccal PRN PRN (Reason: Chest Pain) furosemide 40 mg tablet 40 mg PO BID@0800,1400 30 Days Qty: 60 0RF isosorbide mononitrate 60 mg tablet extended release 24 hr 60 mg PO DAILY insulin aspart U-100 [Novolog FlexPen U-100 Insulin] 100 unit/mL (3 mL) insulin pen See Rx Instructions .ROUTE .COMPLEX Qty: 15 0RF Rx Instructions: Inject 3 times daily, subcut, after meals, based on sliding scale provided insulin degludec [Tresiba FlexTouch U-200] 200 unit/mL (3 mL) insulin pen 20 unit SUBCUT DAILY Qty: 9 0RF atorvastatin 40 mg tablet 40 mg PO QPM amiodarone 200 mg tablet 200 mg PO DAILY tramadol 50 mg tablet 50 mg PO Q6H PRN (Reason: Pain) Discontinued potassium chloride [Klor-Con M20] 20 mEq tablet,ER particles/crystals 20 meq PO BID 30 Days Qty: 30 3RF losartan 25 mg tablet 25 mg PO DAILY Qty: 30 0RF No Action Entresto 24-26 mg tablet 1 tab PO BID Qty: 60 1RF Triple Antibiotic 3.5mg-400 unit- 5,000 unit/gram Ointment 1 applic topical BID Qty: 30 0RF aspirin 81 mg Tablet,Delayed Release (Dr/Ec) 81 mg PO DAILY Qty: 30 0RF doxycycline monohydrate 100 mg Tablet 100 mg PO BID Qty: 8 0RF metoprolol tartrate 25 mg Tablet 12.5 mg PO BID@0900,2100 Qty: 60 0RF potassium chloride 20 mEq tablet,ER particles/crystals 10 meq PO DAILY Qty: 30 0RF ranolazine 500 mg tablet extended release 12 hr 1,000 mg PO BID Qty: 120 0RF losartan 25 mg tablet 25 mg PO DAILY Qty: 30 0RF Discharge Orders: Discharge Order (Routine); Ordered 07/23/24 Ordered By: Mario Castillo Other Ambulatory Orders: Basic Metabolic Panel (Routine) Timeframe: 3 Days Location: Determined by Patient Ordered By: Kristine Marcus Referrals: [facility] [Outside] Syl Casatnon FNP [Nurse Practitioner] - 08/15/24 8:30 am Antonio Delgado MD [Primary Care Provider] - 07/31/24 11:45 am Discharge Diet: Usual diet Discharge Activity: Increase activity as tolerated Patient Instructions: Albuterol (By breathing), Budesonide/Formoterol (By breathing), Sacubitril/Valsartan (By mouth), COPD Stoplight, Opioid Safety Discharge Attestations Time Spent in Discharge Care*: greater than 30 min Status at Discharge: Cognitive status at discharge: cognitively intact , Behavioral status at discharge: cooperative , Functional status at discharge: independent ambulation , Overall status at discharge: patient is progressing back to baseline Quality Metrics Clinical Quality Measures [ No reported AMI, CVA or VTE this stay] Coding Level of Care Code Acute Code for Chg Fwd Diagnoses Acute respiratory failure with hypoxia J96.01 Congestive heart failure I50.9 Troponin level elevated R79.89 CKD (chronic kidney disease) N18.9 Type 2 diabetes mellitus without complications E11.9 COPD (chronic obstructive pulmonary disease) J44.9
[2024-07-23 11:33] LABS: Glucose Point of Care 190 mg/dL (70-110)
[2024-07-23] MEDS: insulin lispro 100 unit/1 mL SUBCUT (11:51)
[2024-07-23] MEDS: cefTRIAXone 1,000 mg SDV 1000 MG IVP (11:52)
[2024-07-23] MEDS: TRAMadol 50 mg Tablet PO (11:55)
--- NOTE | 2024-07-23 12:33 | P.PN_ITS ---
<Statement entered by Robson Vázquez MD - 07/23/24 18:45> Patient was evaluated and cared for in conjunction with an advanced practice practitioner. I personally examined the patient and reviewed the chart and all pertinent data including imaging, telemetry, and laboratory results. I discussed the patient in detail with the advanced practice practitioner. Please see their note for complete H&P testing result and agreed upon plan of care for the patient. Subjective 2 Subjective: Patient doing well today. No complaints. Denies shortness of breath or chest pain. Creatinine is down to 1.2. Vitals/I&O/Wt Last Vital Signs Temp 97.8 F 07/23/24 11:24 Pulse 71 07/23/24 11:24 Resp 18 07/23/24 11:24 BP 137/73 07/23/24 11:24 Pulse Ox 94 07/23/24 11:24 O2 Del Method Nasal Cannula 07/23/24 11:24 O2 Flow Rate 2 07/23/24 10:48 FiO2 35 07/19/24 09:03 07/22/24 07/23/24 07/23/24 22:59 06:59 14:59 Intake Total 240 / 1720 360 / 360 Output Total 200 / 200 Balance 40 / 1520 360 / 360 Weight last 48 hrs Weight 169 lb Weight 169 lb 4.8 oz Physical Exam 2 Narrative: General: No apparent distress, healthy appearing, well nourished Muskuloskeletal: Full ROM Lymphatic: no lymphedema noted Respiratory: Normal respiratory effort, clear to auscultation bilaterally throughout all lung matta, no use of accessory muscles Cardio: No JVD, regular rate, regular rhythm, S1 S2 normal, no murmurs, peripheral pulses 2+ radial palpated bilaterally GI: Normal to inspection, nondistended Extremities: Full ROM, normal, normal capillary refill, no cyanosis or edema Neuro: Alert and oriented x4, no focal motor deficits Psych: Affect normal, denies suicidal ideation, mental status grossly normal Skin: No rashes or lesions noted, no wounds Urinary Catheter Management: Huff: Cath Placed During This Visit: yes Reason for Continuing Indwelling Catheter: Other Urinary Catheter Date of Insertion: 07/18/24 Urinary Catheter Time of Insertion: 06:51 Data 07/23/24 05:37 07/23/24 05:37 Micro: Microbiology 07/18/24 06:59 Blood Culture - Final Blood NO GROWTH AFTER 5 DAYS 07/18/24 06:55 Blood Culture - Final Blood NO GROWTH AFTER 5 DAYS A&P Assessment and plan (1) CAD (coronary artery disease): (2) Congestive heart failure: (3) Troponin level elevated: Plan Patient is stable from a cardiac standpoint. May be discharged home when ok with hospitalist team. We do recommend starting patient on low-dose Entresto stopping home losartan. We will have her come and recheck a BMP in 10 days. Continue her home dose of Lasix 40 twice daily. Further adjustments may be made as necessary per patient response on an outpatient basis. We will see her in 7 to 10 days in the clinic. PDMP PDMP Reviewed: Not Reviewed Attestations 2 Medical Necessity Statement*: Defer to primary Coding Level of Care Code Acute Code for [facility] Fwd Diagnoses CAD (coronary artery disease) I25.10 Congestive heart failure I50.9 Troponin level elevated R79.89
== END 2024-07-23 13:25 | disposition home health service (06) | DRG 208 ==
LOC: ER 06:41 → ER IP 10:07 → ICU 10:50 → MEDSURG 07-20 18:22
PROVIDERS: Student in an Organized Health Care Education/Training Program; Admitting Provider Internal Medicine; Emergency Provider Family Medicine; PCP Family Medicine; Visit Provider Hospitalist
DX: J96.01 Acute respiratory failure with hypoxia (principal); I50.43 Acute on chronic combined systolic (congestive) and diastolic (congestive) heart failure; J18.9 Pneumonia, unspecified organism; N17.0 Acute kidney failure with tubular necrosis; I13.0 Hypertensive heart and chronic kidney disease with heart failure and stage 1 through stage 4 chronic kidney disease, or unspecified chronic kidney disease; I48.92 Unspecified atrial flutter; J44.1 Chronic obstructive pulmonary disease with (acute) exacerbation; Z99.81 Dependence on supplemental oxygen; Z11.52 Encounter for screening for COVID-19; Z79.02 Long term (current) use of antithrombotics/antiplatelets; Z79.899 Other long term (current) drug therapy; Z79.4 Long term (current) use of insulin; I48.0 Paroxysmal atrial fibrillation; E11.22 Type 2 diabetes mellitus with diabetic chronic kidney disease; N18.9 Chronic kidney disease, unspecified; I25.2 Old myocardial infarction; I25.10 Atherosclerotic heart disease of native coronary artery without angina pectoris; E78.5 Hyperlipidemia, unspecified; Z90.710 Acquired absence of both cervix and uterus; Z95.1 Presence of aortocoronary bypass graft; Z87.891 Personal history of nicotine dependence; J43.9 Emphysema, unspecified; Z87.440 Personal history of urinary (tract) infections
CPT/HCPCS: 36415; 36416; 36600; 51702; 71045; 80048; 80051; 80053; 81003; 82009; 82274; 82330; 82607; 82746; 82805; 82962; 83540; 83550; 83605; 83735; 83880; 84145; 84484; 85025; 87040; 87070; 87205; 87637; 93005; 93308; 94002; 94640; 94664; 94760; 94799; 96365; 96366; 96367; 96372; 96375; 96376; 97161; 97530; 99291; 99292; J0456; J0696; J1100; J1650; J1815; J1940; J2250; J2470; J2543; J2704; J2919; J3010; J3475; J3490; J7030; J7050; J7512; J7613; J7626; J9999

== ENCOUNTER 2024-08-05 11:28 | Inpatient (IN) | payer MEDICARE, SELFPAY ==
[2024-08-05] VITALS (14 sets, daily range): BP systolic 122–146; BP diastolic 55–89; PULSE 70–106; RESP 18–35; TEMP 36.5–37.2; O2SAT 92–98
--- NOTE | 2024-08-05 11:36 | XR_ITS ---
WS: [id number] Exam: XR chest 1V portable [id number] Date/Time of Exam: 08/05/2024 11:39 AM Reason For Exam: dyspnea/cough Comparison 07/20/2024. There are infiltrates in the RIGHT lower lung zone and region of the lingula. This may represent developing pneumonia. Mild cardiac enlargement unchanged. Upper lung matta are clear. Signs of previous CABG surgery. Numerous old left- sided rib fractures. Moderate DJD of both shoulders. Chronically elevated RIGHT foramen. XR/XR chest 1V portable [id number] IMPRESSION: 1. Mild infiltrates in the RIGHT lung base and region of the lingula. Developin g pneumonia is not excluded. Mild cardiac enlargement unchanged.
--- NOTE | 2024-08-05 11:37 | ECG_ITS ---
[facility] Test Date: 2024-08-05 Pat Name: Sally Henderson Department: Room: Gender: Female Master Ocean: : [id number] Requested By: Thomas Benavidez Order Number: [id number] Leonora MD: Angela Lopez M.D. Measurements Intervals [place] Rate: 100 P: 34 NE: 153 QRS: -36 QRSD: 122 T: 130 QT: 346 QTc: 447 Interpretive Statements SINUS TACHYCARDIA POSSIBLE LEFT ATRIAL ENLARGEMENT [-0.1mV P-WAVE IN V1/V2] LEFT AXIS DEVIATION [QRS AXIS < -30] MODERATE INTRAVENTRICULAR CONDUCTION DELAY [110+ ms QRS DURATION] ST DEVIATION AND MODERATE T-WAVE ABNORMALITY, CONSIDER LATERAL ISCHEMIA [-0.1+ mV T-WAVE IN I/aVL/V5/V6] Compared to ECG 07/18/2024 08:07:54 Intraventricular conduction delay now present Sinus rhythm no longer present T-wave abnormality still present Possible ischemia still present Electronically Signed On 08-05-2024 21:00:46 CDT by Angela Lopez M.D. [email or web address]
--- NOTE | 2024-08-05 11:55 | W.ED.SOB ---
HPI - SOB/Dyspnea General: Chief Complaint: Shortness of Breath/Dyspnea Stated Complaint: SOB Time Seen by Provider: 08/05/24 11:35 History of Present Illness: HPI Narrative: 84-year-old female presents via EMS with complaints of increased difficulty breathing. She received multiple nebulizers and route as well as 125 of steroids. Not having any chest pain but is severely short of breath. This morning around 2 to 3 AM she ate Ramen noodles when she has a high amount of sodium and she has been progressively worsening since then. Patient has known history of COPD and CHF. She has not had any fever sweats or chills or productive cough she denies any hemoptysis. She is not having any chest pain at this time. Patient does still wish to be a full code including intubation the last time we seen the patient emergency room she was emergently intubated upon arrival for impending respiratory failure. Associated symptoms: Reports chest congestion and orthopnea; Deny abdominal pain, chest pain or fever(s) Related Data Home Medications ?Medication ?Instructions ?Recorded ?Confirmed nitroglycerin 0.4 mg sublingual 0.4 mg buccal PRN PRN Chest Pain 04/10/24 08/05/24 tablet isosorbide mononitrate 60 mg 60 mg PO DAILY 06/07/24 08/05/24 tablet,extended release 24 hr amiodarone 200 mg tablet 200 mg PO DAILY 07/18/24 08/05/24 atorvastatin 40 mg tablet 40 mg PO QPM 07/18/24 08/05/24 tramadol 50 mg tablet 50 mg PO Q6H PRN Pain 07/18/24 08/05/24 losartan 25 mg tablet 25 mg PO DAILY 08/05/24 08/05/24 potassium chloride 20 mEq 20 meq PO DAILY 08/05/24 08/05/24 tablet,extended release(part/cryst) Previous Rx's ?Medication ?Instructions ?Recorded clopidogrel 75 mg tablet 75 mg PO BEDTIME #90 tabs 03/27/24 ranolazine 500 mg tablet,extended 500 mg PO BID #60 tabs 03/27/24 release,12 hr furosemide 40 mg tablet 40 mg PO BID@0800,1400 30 days #60 05/28/24 tabs insulin aspart U-100 100 unit/mL See Rx Instructions .Route 06/11/24 (3 mL) subcutaneous pen (Novolog .COMPLEX #15 mL FlexPen U-100 Insulin aspart) insulin degludec 200 unit/mL (3 20 unit (0.1 mL) SUBCUT DAILY #9 mL 06/11/24 mL) subcutaneous pen (Tresiba FlexTouch U-200 insulin) albuterol sulfate 2.5 mg/3 mL 2.5 mg (3 mL) inhalation TID PRN 07/23/24 (0.083 %) solution for nebulization shortness of breath or wheezing 30 days #90 mL budesonide-formoterol HFA 80 1 inh inhalation BID #10.2 grams 07/23/24 mcg-4.5 mcg/actuation aerosol inhaler (Symbicort) nebulizer and compressor ([id number] #1 ea 07/23/24 Nebulizer) sacubitril 24 mg-valsartan 26 mg 1 tab PO BID #60 tabs 07/25/24 tablet (Entresto) Allergies Allergy/AdvReac Type Severity Reaction Status Date / Time No Known Allergies Allergy Verified 07/18/24 06:33 Review of Systems Const: Denies: fever(s) or chills Card: Reports: swelling of feet/ankles, dyspnea on exertion and orthopnea; Denies: chest pain Resp: Reports: dyspnea, non-productive cough, wheezing and chest congestion GI: Denies: abdominal pain : Denies: dysuria, urinary frequency or urinary urgency Musc: Denies: neck pain or back pain Skin/Breast: Denies: rash PFSH ED PFSH: Medical History Troponin level elevated CAD (coronary artery disease) Type 2 diabetes mellitus without complications Paroxysmal A-fib CKD (chronic kidney disease) CHF (congestive heart failure) Acute kidney injury superimposed on chronic kidney disease Acute respiratory failure with hypoxia and hypercapnia Respiratory arrest Non-STEMI (non-ST elevated myocardial infarction) Coronary artery disease Hyperglycemia Hyperkalemia Elevated brain natriuretic peptide (BNP) level Hyperglycemia Hypoxic respiratory failure Dyslipidemia Contrast-induced nephropathy Acute ND Essential (primary) hypertension Surgical History Hx of hysterectomy Hx of CABG Family History Unknown No problems noted. Social History Smoking and tobacco/nicotine status: former use of tobacco/nicotine Alcohol intake: never Substance/Drug Use: never Physical Exam Const: ORIENTATION/CONSCIOUSNESS: Yes awake, Yes oriented to person, Yes oriented to place and Yes oriented to time HENMT: COMMON NORMALS: normocephalic, atraumatic and hearing grossly normal bilaterally HEAD & SCALP: normocephalic and atraumatic Resp: EFFORT & INSPECTION: Yes tachypneic and Yes uses accessory muscles AUSCULTATION: rhonchi and wheezes Cardio: COMMON NORMALS: regular rhythm and No murmurs present (Cardio) RATE: tachycardic RHYTHM: regular rhythm GI: COMMON NORMALS: Soft to palpation and No hepatosplenomegaly present AUSCULTATION: Yes normoactive bowel sounds PALPATION: Yes Soft to palpation, No Tenderness to palpation present (GI), No Guarding due to palpation present (GI) and Yes No hepatosplenomegaly present Extremity: COMMON NORMALS: normal to inspection, capillary refill normal and no calf tenderness GENERAL: Yes edema Neuro: SENSORIUM/ORIENTATION: Yes oriented to person, Yes oriented to place and Yes oriented to time Skin: COMMON NORMALS: no rashes or lesions noted GENERAL SKIN EXAM: no rashes or lesions noted Course Vital Signs: Vital signs: Vital Signs Temperature 98.9 F 08/05/24 11:37 Pulse Rate 92 08/05/24 15:51 Respiratory Rate 22 H 08/05/24 14:48 Blood Pressure 129/84 08/05/24 15:51 Pulse Oximetry 92 08/05/24 15:51 Oxygen Delivery Me thod BiPAP 08/05/24 14:22 Fraction of Inspir ed Oxygen 35 08/05/24 15:04 MDM - SOB/Dyspnea Medical Decision Making Patient presents emergency room respiratory distress she appears to be fluid overload there is question of pneumonia on her chest x-ray started on BiPAP she did improve quite a bit given back itself lactate later came back over 5 she had been given 50 mL of IV normal saline over an hour. She is already showing signs of congestive heart failure and concerned that if she is given the full 30 mL/kg dose she would significantly decompensate and her condition would worsen. The fluid bolus can be reassessed on an ongoing basis as an inpatient if she may benefit from it. Discussed with the patient patient has been admitted discussed Dr. Hart for the hospitalist service as well. She had been given Lasix 60 mg IV cultures have been done. Medical Records I reviewed the patient's medical records. Lab Data I reviewed the patient's lab results. 08/05/24 11:43 08/05/24 11:43 Labs/Radiology: Radiology Impressions Chest X-Ray 08/05/24 11:36 IMPRESSION: 1. Mild infiltrates in the RIGHT lung base and region of the lingula. Developing pneumonia is not excluded. Mild cardiac enlargement unchanged. Laboratory Results WBC 11.95 10^3/uL (3.29-11.43) H 08/05/24 11:43 RBC 4.14 10^6/uL (3.85-5.65) 08/05/24 11:43 Hgb 10.80 g/dL (11.27-16.99) L 08/05/24 11:43 Hct 35.4 % (36-47) L 08/05/24 11:43 MCV 85.5 fl (85-98) 08/05/24 11:43 MCH 26.1 pg (27-33) L 08/05/24 11:43 MCHC 30.5 g/dL (30-55) 08/05/24 11:43 RDW 15.0 % (12.1-15.1) 08/05/24 11:43 Plt Count 256 10^3/cmm (157-399) 08/05/24 11:43 MPV 11.8 fL (7.4-10.4) H 08/05/24 11:43 Neut % (Auto) 79.2 % 08/05/24 11:43 Lymph % (Auto) 13.3 % 08/05/24 11:43 Mitchell % (Auto) 6.3 % 08/05/24 11:43 Eos % (Auto) 0.6 % 08/05/24 11:43 Baso % (Auto) 0.3 % 08/05/24 11:43 Neut # (Auto) 9.47 10^3/uL (1.8-7.7) H 08/05/24 11:43 Lymph # (Auto) 1.6 10^3/uL (0.8-4.8) 08/05/24 11:43 Mitchell # (Auto) 0.8 10^3/uL (0.2-0.9) 08/05/24 11:43 Eos # (Auto) 0.1 10^3/uL (0.0-0.8) 08/05/24 11:43 Baso # (Auto) 0.0 10^3/uL (0.0-0.1) 08/05/24 11:43 Nucleated RBC % (auto) 0 % 08/05/24 11:43 Nucleated RBCs # 0.0 /100WBC 08/05/24 11:43 Specimen Type Arterial 08/05/24 12:05 Sample Site Radial, right 08/05/24 12:05 ABG pH 7.36 (7.35-7.45) 08/05/24 12:05 ABG pCO2 47.4 mmHg (35-45) H 08/05/24 12:05 ABG pO2 87.6 mmHg (80.0-100.0) 08/05/24 12:05 ABG PO2/FiO2 Ratio 199 08/05/24 12:05 ABG HCO3 26.6 mmol/L (22-26) H 08/05/24 12:05 ABG O2 Saturation 97.2 08/05/24 12:05 ABG Base Excess 0.7 mmol/L (-2.0-2.0) 08/05/24 12:05 Tanner Test Pos 08/05/24 12:05 A-a O2 Gradient 21.7 mmHg (5-10) H 08/05/24 12:05 Hematocrit 33.1 % (37-47) L 08/05/24 12:05 Hgb O2 Saturation 95.2 % (95-100) 08/05/24 12:05 Carboxyhemoglobin 0.9 %THgb (0.4-20.1) 08/05/24 12:05 Methemoglobin 1.1 % (0.4-1.5) 08/05/24 12:05 Total Hemoglobin 10.8 g/dL (12-16) L 08/05/24 12:05 Sodium 140.0 mmol/L (131-143) 08/05/24 12:05 Potassium 3.8 mmol/L (3.5-5.0) 08/05/24 12:05 Glucose 410.0 mg/dL (70-115) H 08/05/24 12:05 Ionized Calcium 1.2 mmol/L (1.1-1.4) 08/05/24 12:05 O2 Delivery Device Nc 08/05/24 12:05 O2 Liters/Min 6.0 % 08/05/24 12:05 FiO2 44.0 % 08/05/24 12:05 Revenue Enforcement Collection Agent ID Amh 08/05/24 12:05 Sodium 141 mmol/L (136-145) 08/05/24 11:43 Potassium 4.6 mmol/L (3.5-5.1) 08/05/24 11:43 Chloride 100 mmol/L (98-107) 08/05/24 11:43 Carbon Dioxide 27 mmol/L (22-29) 08/05/24 11:43 Anion Gap 18.6 (5-19) 08/05/24 11:43 BUN 28 mg/dL (8-23) H 08/05/24 11:43 Creatinine 1.0 mg/dL (0.5-0.9) H 08/05/24 11:43 GFR Calculation Not Reportable 08/05/24 11:43 Glucose 397 mg/dL (65-115) H 08/05/24 11:43 Calculated Osmolality 314 mOsm/kg (285-295) H 08/05/24 11:43 Lactic Acid 3.6 mmol/L (0.5-2.2) H 08/05/24 11:43 Lactic Acid (Sepsis) 5.5 mmol/L (0.5-2.2) H* 08/05/24 15:02 Calcium 9.0 mg/dL (8.5-10.5) 08/05/24 11:43 Total Bilirubin 0.3 mg/dL (0.15-1.2) 08/05/24 11:43 AST 14 U/L (0-32) 08/05/24 11:43 ALT 15 U/L (0-33) 08/05/24 11:43 Alkaline Phosphatase 95 U/L (35-105) 08/05/24 11:43 Creatine Kinase 39 U/L (26-192) 08/05/24 11:43 Troponin T Baseline 30 ng/L (0-10) H 08/05/24 11:43 Troponin T 120 Minute 28.58 ng/L (0-10) H 08/05/24 13:52 Delta Troponin T -1.42 ABS# (0-10) L 08/05/24 13:52 NT-Pro-B Natriuret Pep 8620 pg/mL (0-450) H 08/05/24 11:43 Total Protein 6.9 g/dL (6.6-8.7) 08/05/24 11:43 Albumin 4.1 g/dL (3.5-5.2) 08/05/24 11:43 Globulin 2.8 g/dL (1.3-4.6) 08/05/24 11:43 Procalcitonin 0.04 ng/mL (0-0.5) 08/05/24 11:43 Influenza A (PCR) Negative (Negative) 08/05/24 11:56 Influenza Type B (PCR) Negative (Negative) 08/05/24 11:56 RSV (PCR) Negative (Negative) 08/05/24 11:56 SARS-CoV-2 (PCR) Negative (Negative) 08/05/24 11:56 All radiology interpretation(s) finalized by discharge Discharge Plan Discharge Patient Disposition: Placed in Observation Admit Provider: Luli Hart Clinical Impression: Acute hypoxemic respiratory failure, Congestive heart failure, CKD (chronic kidney disease), Type 2 diabetes mellitus without complications, Acute kidney failure, Pneumonia, Sepsis Coding Level of Care Code ED Topographical Drafter for Akosua Vasquez
[2024-08-05 12:03] LABS: Basophils % 0.3 %; Eosinophils # 0.1 10^3/uL (0.0-0.8); Eosinophils % 0.6 %; Hematocrit 35.4 % (36-47); Lymphocytes # 1.6 10^3/uL (0.8-4.8); Lymphocytes % 13.3 %; Mean Corpuscular HGB Conc 30.5 g/dL (30-55); Mean Corpuscular Hemoglobin 26.1 pg (27-33); Mean Corpuscular Volume 85.5 fl (85-98); Mean Platelet Volume 11.8 fL (7.4-10.4); Monocytes # 0.8 10^3/uL (0.2-0.9); Monocytes % 6.3 %; Neutrophils # 9.47 10^3/uL (1.8-7.7); Neutrophils % 79.2 %; Nucleated Red Blood Cells % 0 %; Platelet Count 256 10^3/cmm (157-399); Red Blood Count 4.14 10^6/uL (3.85-5.65); White Blood Count 11.95 10^3/uL (3.29-11.43)
[2024-08-05 12:15] LABS: ABG PCO2 47.4 mmHg (35-45); ABG PH Result 7.36 (7.35-7.45); Alveolar-Arterial Oxygen Gradi 21.7 mmHg (5-10); Arterial Blood Gas Hematocrit 33.1 % (37-47); Base Excess ABG 0.7 mmol/L (-2.0-2.0); Blood Gas Allen Test Pos; Blood Gas Operator Identificat AMH; Blood Gas Sample Site Radial, right; Blood Gas Sample Type Arterial; Carboxyhemoglobin 0.9 %THgb (0.4-20.1); HCO3 ABG 26.6 mmol/L (22-26); HGB O2 Sat 95.2 % (95-100); Ionized Calcium Level - ABG 1.2 mmol/L (1.1-1.4); Methemoglobin 1.1 % (0.4-1.5); Oxygen Device NC; Oxygen Saturation ABG 97.2; PO2 ABG 87.6 mmHg (80.0-100.0); PO2 FiO2 Ratio Arterial Blood 199; Potassium Level - ABG 3.8 mmol/L (3.5-5.0); Total Hemoglobin 10.8 g/dL (12-16)
[2024-08-05 12:26] LABS: Lactic Sepsis W/Reflex 3.6 mmol/L (0.5-2.2)
[2024-08-05 12:27] LABS: Troponin(5th) Baseline 30 ng/L (0-10)
[2024-08-05 12:37] LABS: NT Pro B Type Natriuretic Pept 8620 pg/mL (0-450); Procalcitonin 0.04 ng/mL (0-0.5)
[2024-08-05 12:47] LABS: Influenza A NEGATIVE (Negative); Influenza B NEGATIVE (Negative); Respiratory Syncytial Virus Ce NEGATIVE (Negative); SARS-CoV-2 PCR NEGATIVE (Negative)
[2024-08-05 12:48] LABS: Alanine Aminotransferase 15 U/L (0-33); Albumin Level 4.1 g/dL (3.5-5.2); Alkaline Phosphatase 95 U/L (35-105); Anion Gap 18.6 (5-19); Aspartate Amino Transferase 14 U/L (0-32); Blood Urea Nitrogen 28 mg/dL (8-23); Carbon Dioxide 27 mmol/L (22-29); Chloride 100 mmol/L (98-107); Creatine Phosphokinase 39 U/L (26-192); Creatinine Clr Calc Pharmacy 49.6937; Globulin 2.8 g/dL (1.3-4.6); Glucose 397 mg/dL (65-115); Osmolality Calculated 314 mOsm/kg (285-295); Potassium 4.6 mmol/L (3.5-5.1); Sodium 141 mmol/L (136-145); Total Bilirubin 0.3 mg/dL (0.15-1.2); Total Protein 6.9 g/dL (6.6-8.7)
[2024-08-05] MEDS: piperacillin-tazobactam 3.375 GM in sodium chloride 0.9% (plus) 50 ML IV (13:20)
--- NOTE | 2024-08-05 13:40 | ECG_ITS ---
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 Measurements Intervals [place] Rate: 92 P: 42 WI: 162 QRS: -37 QRSD: 123 T: 134 QT: 410 QTc: 508 Interpretive Statements SINUS RHYTHM WITH OCCASIONAL VENTRICULAR PREMATURE COMPLEXES POSSIBLE LEFT ATRIAL ENLARGEMENT [-0.1mV P-WAVE IN V1/V2] LEFT AXIS DEVIATION [QRS AXIS < -30] MODERATE INTRAVENTRICULAR CONDUCTION DELAY [110+ ms QRS DURATION] ST DEVIATION AND MODERATE T-WAVE ABNORMALITY, CONSIDER LATERAL ISCHEMIA [-0.1+ mV T-WAVE IN I/aVL/V5/V6] Compared to ECG 08/05/2024 11:33:29 Ventricular premature complex(es) now present Sinus tachycardia no longer present T-wave abnormality still present Possible ischemia still present Electronically Signed On 08-05-2024 21:08:18 CDT by Angela Lopez M.D. [email or web address]
[2024-08-05 13:45] LABS: Reflex Lactate Order REFLEX LACTIC ORDERD
[2024-08-05 14:15] LABS: Troponin 5 2HR 28.58 ng/L (0-10); Troponin 5 2HR Delta -1.42 ABS# (0-10)
[2024-08-05] MEDS: FUROsemide 10 mg/mL SDV 10mL 60 MG IVP (14:47)
[2024-08-05] MEDS: VANCOMYCIN ADD-Vantage 1,000 MG in 0.9% NaCl ADD-Vantage 250 ML 250 MG IV (14:47)
[2024-08-05] MEDS: TRAMadol 50 mg Tablet PO (15:15)
[2024-08-05 15:36] LABS: Bilirubin Urine Negative (Negative); Blood Urine Negative (Negative); Glucose Urine UA 3+ (Normal); Ketones Urine Trace (Negative); Leukocyte Esterase Urine Negative (Negative); Nitrate Urine Negative (Negative); Protein Urine Negative (Negative); Specific Gravity, Urine 1.022 (1.005-1.030); Urine Appearance Clear (CLEAR); Urine Color Yellow (Yellow); Urobilinogen Urine 0.2 mg/dL (Negative)
[2024-08-05 15:41] LABS: Add Urine Microscopic? YES; Bacteria Urine None Seen /hpf; Hyaline Casts Urine 1.21 /lpf; RBC Urine 0-2 /hpf (0-2); Squamous Epithelial Cell Urine 0-5 /hpf (0-5)
[2024-08-05 15:44] LABS: Add Urine Culture? No
[2024-08-05 15:45] LABS: Lactic Acid level (Lactate) 5.5 mmol/L (0.5-2.2)
--- NOTE | 2024-08-05 15:58 | PC.NURSE ---
received pt from ER pt is alert,awake,oriented on BIPAP fio2-32%,ipap18/epap 8 tolerating well. skin issues on uper chest,skin tears and redness on left great toe. call light provided to pt. pt belongings at bedside such as phone.
--- NOTE | 2024-08-05 16:03 | P.HP_ITS ---
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 reduction in acute distress. Currently anticipate stay greater than two midnights given comorbid conditions, management described and high risk of readmission. Coding Level of Care Code 20118 High Time for a total of 80 minutes, includes reviewing past or interval history, examining/interviewing patient, placing orders, counseling patient/family/other support, discussing plan of care with staff and documenting encounter Diagnoses Acute on chronic diastolic CHF (congestive heart failure) I50.33 Acute respiratory failure with hypoxia and hypercapnia J96.01; J96.02 Stage 3a chronic kidney disease N18.31 Chronic kidney disease stage: stage 3 (moderate) Chronic kidney disease stage 3 subtype: stage 3a (GFR 45-59) Coronary artery disease involving [place] coronary artery of [place] heart with other form of angina pectoris I25.118 Associated angina: with other forms of angina Coronary Disease-Associated Artery/Lesion type: [place] artery [place] vs. 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
[2024-08-05 17:21] LABS: Glucose Point of Care 459 mg/dL (70-110)
--- NOTE | 2024-08-05 17:37 | ECG_ITS ---
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 Measurements Intervals [place] Rate: 85 P: 34 ME: 167 QRS: -31 QRSD: 122 T: 138 QT: 394 QTc: 470 Interpretive Statements SINUS RHYTHM POSSIBLE LEFT ATRIAL ENLARGEMENT [-0.1mV P-WAVE IN V1/V2] LEFT AXIS DEVIATION [QRS AXIS < -30] MODERATE INTRAVENTRICULAR CONDUCTION DELAY [110+ ms QRS DURATION] ST DEVIATION AND MODERATE T-WAVE ABNORMALITY, CONSIDER LATERAL ISCHEMIA [-0.1+ mV T-WAVE IN I/aVL/V5/V6] Compared to ECG 08/05/2024 13:40:57 Ventricular premature complex(es) no longer present T-wave abnormality still present Possible ischemia still present Electronically Signed On 08-05-2024 21:04:32 CDT by Angela Lopez M.D. [email or web address]
[2024-08-05] MEDS: enoxaparin 40 mg/0.4 mL Syringe SUBCUT (17:55)
[2024-08-05] MEDS: doxycycline 100 mg Tablet PO (17:55)
[2024-08-05] MEDS: docusate sodium 100 mg Capsule PO (17:55)
[2024-08-05] MEDS: atorvastatin 40 mg Tablet PO (17:55)
[2024-08-05] MEDS: neomycin-poly-bacitracin oint 28 gm 1 APPLIC TOPICAL (17:56)
[2024-08-05] MEDS: insulin lispro 100 unit/1 mL SUBCUT ×2 (18:10→21:25)
[2024-08-05 21:02] LABS: Glucose Point of Care 455 mg/dL (70-110)
[2024-08-05] MEDS: enoxaparin 30 mg/0.3 mL Syringe SUBCUT (21:26)
[2024-08-05] MEDS: aspirin 81 mg EC Tablet PO (21:26)
[2024-08-05] MEDS: insulin glargine 100 units/1 mL 20 UNIT SUBCUT (21:26)
[2024-08-05] MEDS: clopidogrel 75 mg Tablet PO (21:32)
[2024-08-05] MEDS: metoprolol tartrate 25 mg Tablet 12.5 MG PO (21:32)
[2024-08-05] MEDS: ranolazine (12HR) 500 mg Tablet PO (21:34)
[2024-08-05] MEDS: budesonide 0.5 mg/2 mL Neb INHALATION (22:03)
[2024-08-06] VITALS (12 sets, daily range): BP systolic 105–144; BP diastolic 57–88; PULSE 62–79; RESP 9–24; TEMP 36.4–36.9; O2SAT 94–99
[2024-08-06] MEDS: morphine 4 mg/mL SDV 1 mL 2 MG IVP (00:14)
--- NOTE | 2024-08-06 03:33 | PC.NURSE ---
1900- Per Dr. Hart can hold metoprolol for SBP less than 100 or HR less than 50. 2325- Messaged Dr. Avelar requesting something for anxiety so patient can wear bipap. Recieved orders for 2 mg Morphine once. 0103- Patient would like to take bipap off. Educated patient on use of bipap. Patient still refusing. Dr. Avelar notified.
[2024-08-06 04:18] LABS: Basophils % 0.1 %; Hematocrit 32.2 % (36-47); Lymphocytes # 0.4 10^3/uL (0.8-4.8); Lymphocytes % 2.8 %; Mean Corpuscular HGB Conc 31.4 g/dL (30-55); Mean Corpuscular Hemoglobin 26.1 pg (27-33); Mean Corpuscular Volume 83.2 fl (85-98); Mean Platelet Volume 12.2 fL (7.4-10.4); Monocytes # 0.6 10^3/uL (0.2-0.9); Monocytes % 4.6 %; Neutrophils # 11.69 10^3/uL (1.8-7.7); Neutrophils % 91.9 %; Nucleated Red Blood Cells % 0 %; Platelet Count 220 10^3/cmm (157-399); Red Blood Count 3.87 10^6/uL (3.85-5.65); Red Cell Distribution Width 15.1 % (12.1-15.1)
[2024-08-06 04:44] LABS: Lactate (Lactic Acid level) 3.3 mmol/L (0.5-2.2)
[2024-08-06 04:46] LABS: Anion Gap 16.7 (5-19); Blood Urea Nitrogen 30 mg/dL (8-23); Calcium 8.9 mg/dL (8.5-10.5); Carbon Dioxide 28 mmol/L (22-29); Chloride 96 mmol/L (98-107); Creatinine Clr Calc Pharmacy 50.9981; Glucose 274 mg/dL (65-115); Osmolality Calculated 298 mOsm/kg (285-295); Phosphorus 3.4 mg/dL (2.5-4.5); Potassium 4.7 mmol/L (3.5-5.1); Sodium 136 mmol/L (136-145)
[2024-08-06 04:49] LABS: Troponin T (5th) Once 354 ng/L (0-10)
[2024-08-06 06:14] LABS: Glucose Point of Care 230 mg/dL (70-110)
[2024-08-06] MEDS: FUROsemide 10 mg/mL SDV 10mL 60 MG IVP (07:04)
[2024-08-06] MEDS: albuterol 2.5 mg/3 mL Neb INHALATION (07:29)
[2024-08-06] MEDS: budesonide 0.5 mg/2 mL Neb INHALATION ×2 (07:29→20:04)
--- NOTE | 2024-08-06 09:33 | PC.CHAP ---
Pastoral Care Encounter/Spiritual Assessment Type of Contact [] Declined clinical team manager visit [] Patient/Family/Request visit [] Outpatient visit [] Follow-up visit [] Physician referral [] Code/Alert [x] Routine visit [] Staff referral [] Actively dying [] Patient sleeping [] Family support [] [] Out of room [] Palliative care [] [] Receiving care in room [] Pre-surgical visit [] Trauma [] Long length of stay [] ICU visit [] Other: Relational/Emotional Strength [x] Patient feels connected with others/family/visitors/staff [] Distress [] Loneliness/isolation [] Abandonment Spirituality of Patient [x] Person of Mckenna [] Attends Hinduism of their [place] [x] Believes in Prayer [] Reads Bible or Worship materials [] There are Spiritual issues to be addressed Graphic Illustrator 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 [x] Prayer [x] Active listening [] Non-anxious presence [x] Spiritual/emotional support [] Crisis/trauma care [] Spiritual counseling [] Bereavement support [] Provided bereavement packet [] Provided Bible/devotional materials [] Provided toy/stuffed animal, coloring book to patient or family member [] Provided Communion [] Anointing/[place] [] Salvation [x] Completed spiritual assessment [] Other: Impact on Illness or Injury [] Angry [] Fearful [] Anxious [] Often cries [] Exhaustion [] Unable to work [] Unable to attend confucianism [] Unable to walk/stand [] Unable to read [] Unable to drive [] Unable to eat/drink [] Unable to sleep [] Unable to be with family [] Patient intubated [] Other: Summary Time spent with patient 5 min
[2024-08-06] MEDS: enoxaparin 80 mg/0.8 mL Syringe 70 MG SUBCUT ×2 (10:12→20:22)
[2024-08-06] MEDS: ranolazine (12HR) 500 mg Tablet PO (10:13)
[2024-08-06] MEDS: neomycin-poly-bacitracin oint 28 gm 1 APPLIC TOPICAL ×2 (10:13→17:25)
[2024-08-06] MEDS: amiodarone 200 mg Tablet PO (10:14)
[2024-08-06] MEDS: potassium chloride ER 20 mEq Tablet PO (10:14)
[2024-08-06] MEDS: aspirin 81 mg EC Tablet PO (10:14)
[2024-08-06] MEDS: doxycycline 100 mg Tablet PO ×2 (10:14→17:25)
[2024-08-06] MEDS: isosorbide mononitrate ER 60 mg Tablet PO (10:14)
[2024-08-06] MEDS: metoprolol tartrate 25 mg Tablet 12.5 MG PO ×2 (10:18→20:23)
[2024-08-06 10:43] LABS: Troponin T (5th) Once 314 ng/L (0-10)
[2024-08-06 12:10] LABS: Glucose Point of Care 292 mg/dL (70-110)
[2024-08-06] MEDS: insulin lispro 100 unit/1 mL SUBCUT ×3 (12:36→21:17)
--- NOTE | 2024-08-06 13:39 | PM.CONSULT ---
Providers/Reason For Consult Consulting Physician/Specialty*: CAROLYN Lopez MD/cardiology Reason for Consult*: Patient with shortness of breath and elevated troponin T Requesting Physician: Dr. Scott Attending Physician: Kezia Scott MD Primary Care Provider: Antonio Delgado MD History of Present Illness History of Present Illness Sally Henderson is a 84 year old female with a history of atherosclerotic heart diseas, recurrent decompensated heart failure, is admitted to hospital through the emergency room where she presented with complaints of progressive shortness of breath. She was found to elevated troponin T with a significant delta in 6 hours. Cardiology consult is requested for further cardiac evaluation recommendations. This patient had multiple hospital admissions in the recent past, probably the fifth admission to this hospital since the beginning of this year. Most of the times, she been admitted with congestive heart failure. One of the admissions were for pneumonia. According to the patient and her family, ever since the pneumonia, she has been having increasing difficulty in breathing and has been using 1 to 2 L of oxygen by nasal cannula at home. She was advised to use the oxygen only during the night. But because of increasing shortness of breath, she is practically using the oxygen throughout the day. Yesterday morning, she started having increasing shortness of breath around 10:00. Because of worsening of the symptoms, she was brought to the hospital around noon. She never had any chest pain. No fever or chills. No significant cough. She states she just could not breathe. No fever or chills. No palpitations or syncopal episodes. Patient was told to have lung disease and recently diagnosed COPD. She attributes the lung disease to some medication that she had taken before,? Amiodarone. She has a history of atrial fibrillation. The arrhythmia was under control with amiodarone. Ever since the amiodarone was taken off, she is has been having episodes of flutter/fibrillation. She had a three-vessel coronary bypass surgery approximately 20 years ago in [place]. She had a cardiac catheterization in December of last year in this hospital. She was found to have a high-grade highly calcified lesion in the proximal circumflex artery. Intervention was attempted but was unsuccessful. According the patient, she ended up at the [facility] for these complaints and the tearoom hostess at that hospital also attempted intervention and was unsuccessful. Later on she was seen at the [facility] in [place]. They were planning for some type of robotic intervention. But because of some complications with the attempted PCI in [place], the patient's family was told that the robotic intervention was not possible?. Apparently the patient never had any chest pain. She has not had any interventions since the bypass surgery 10 years ago. There is any smoking abuse or alcohol abuse. No other substance abuse. No significant family history for any premature atherosclerotic heart disease. Review of Systems Narrative: CONSTITUTIONAL: No fever or chills. [] EYES: No blurring of vision or other visual disturbances lately. [] ENT: No hoarseness of voice, auditory disturbances or sore throat. [] CARDIOVASCULAR: As mentioned above. [] RESPIRATORY: Increasing shortness of breath as mentioned GASTROINTESTINAL: No hematemesis or melena. [] GENITOURINARY: No dysuria or hematuria. [] INTEGUMENTARY: No skin rashes or history of skin cancer. [] NEURO: No transient ischemic attacks or amaurosis. [] PSYCHIATRIC: No history of psychosis or major depression. [] HEMATOLOGIC: No bleeding disorders or significant anemia. [] ENDOCRINE: No history of polyuria or polydipsia. [] MUSCULOSKELETAL: No recent joint pain or swelling. [] ALLERGY/IMMUNOLOGY: As mentioned above. [] Medications/Allergies Home Medications ?Medication ?Instructions ?Recorded ?Confirmed ?Last Taken ?Type clopidogrel 75 mg tablet 75 mg PO BEDTIME #90 tabs 03/27/24 08/05/24 08/04/24 Rx ranolazine 500 mg tablet,extended 500 mg PO BID #60 tabs 03/27/24 08/05/24 08/04/24 Rx release,12 hr nitroglycerin 0.4 mg sublingual 0.4 mg buccal PRN PRN Chest Pain 04/10/24 08/05/24 Unknown History tablet furosemide 40 mg tablet 40 mg PO BID@0800,1400 30 days #60 05/28/24 08/05/24 08/04/24 Rx tabs isosorbide mononitrate 60 mg 60 mg PO DAILY 06/07/24 08/05/24 08/04/24 History tablet,extended release 24 hr insulin aspart U-100 100 unit/mL See Rx Instructions .Route 06/11/24 08/05/24 08/04/24 Rx (3 mL) subcutaneous pen (Novolog .COMPLEX #15 mL FlexPen U-100 Insulin aspart) insulin degludec 200 unit/mL (3 20 unit (0.1 mL) SUBCUT DAILY #9 mL 06/11/24 08/05/24 08/04/24 Rx mL) subcutaneous pen (Tresiba FlexTouch U-200 insulin) amiodarone 200 mg tablet 200 mg PO DAILY 07/18/24 08/05/24 08/04/24 History atorvastatin 40 mg tablet 40 mg PO QPM 07/18/24 08/05/24 08/04/24 History tramadol 50 mg tablet 50 mg PO Q6H PRN Pain 07/18/24 08/05/24 Unknown History albuterol sulfate 2.5 mg/3 mL 2.5 mg (3 mL) inhalation TID PRN 07/23/24 08/05/24 Unknown Rx (0.083 %) solution for nebulization shortness of breath or wheezing 30 days #90 mL budesonide-formoterol HFA 80 1 inh inhalation BID #10.2 grams 07/23/24 08/05/24 08/04/24 Rx mcg-4.5 mcg/actuation aerosol inhaler (Symbicort) nebulizer and compressor (HPF384 #1 ea 07/23/24 08/05/24 Unknown Rx Nebulizer) sacubitril 24 mg-valsartan 26 mg 1 tab PO BID #60 tabs 07/25/24 08/05/24 08/04/24 Rx tablet (Entresto) losartan 25 mg tablet 25 mg PO DAILY 08/05/24 08/05/24 08/04/24 History potassium chloride 20 mEq 20 meq PO DAILY 08/05/24 08/05/24 08/04/24 History tablet,extended release(part/cryst) Allergies Allergy/AdvReac Type Severity Reaction Status Date / Time No Known Allergies Allergy Verified 07/18/24 06:33 Current Medications Generic Name Dose Route Start Last Admin Trade Name Freq PRN Reason Stop Dose Admin Albuterol Sulfate 2.5 mg 08/05/24 16:58 08/06/24 07:29 Albuterol 2.5 Mg/3 Ml Neb INHALATION 2.5 mg Q6H.RESP PRN Administration shortness of breath or wheezing Amiodarone HCl 200 mg 08/06/24 09:00 08/06/24 10:14 Amiodarone 200 Mg Tablet PO 200 mg DAILY LI Administration Aspirin 81 mg 08/05/24 18:55 08/06/24 10:14 Aspirin 81 Mg Ec Tablet PO 81 mg DAILY LI Administration Atorvastatin Calcium 40 mg 08/05/24 18:00 08/05/24 17:55 Atorvastatin 40 Mg Tablet PO 40 mg QPM LI Administration Budesonide 0.5 mg 08/05/24 20:00 08/06/24 07:29 Budesonide 0.5 Mg/2 Ml Neb INHALATION 0.5 mg BID.RESPIRATORY LI Administration Clopidogrel Bisulfate 75 mg 08/05/24 21:00 08/05/24 21:32 Clopidogrel 75 Mg Tablet PO 75 mg BEDTIME LI Administration Docusate Sodium 100 mg 08/05/24 18:00 08/06/24 10:15 Docusate Sodium 100 Mg Capsule PO Not Given BID LI Doxycycline Monohydrate 100 mg 08/05/24 18:00 08/06/24 10:14 Doxycycline 100 Mg Tablet PO 100 mg BID LI Administration Protocol Enoxaparin Sodium 70 mg 08/06/24 08:00 08/06/24 10:12 Enoxaparin 80 Mg/0.8 Ml Syringe SUBCUT 70 mg Q12H LI Administration Furosemide 60 mg 08/06/24 06:00 08/06/24 07:04 Furosemide 10 Mg/Ml Sdv 10ml IVP 60 mg Q24H LI Administration Insulin Glargine 20 unit 08/05/24 21:00 08/05/24 21:26 Insulin Glargine 100 Units/1 Ml SUBCUT 20 unit BEDTIME LI Administration Insulin Human Lispro 0 unit 08/05/24 21:00 08/05/24 21:25 Insulin Lispro 100 Unit/1 Ml SUBCUT 8 unit BEDTIME LI Administration Protocol Insulin Human Lispro 0 unit 08/05/24 18:00 08/06/24 12:36 Insulin Lispro 100 Unit/1 Ml SUBCUT 10 unit TIDWM LI Administration Protocol Isosorbide Mononitrate 60 mg 08/06/24 09:00 08/06/24 10:14 Isosorbide Mononitrate Er 60 Mg Tablet PO 60 mg DAILY LI Administration Metoprolol Tartrate 12.5 mg 08/05/24 21:00 08/06/24 10:18 Metoprolol Tartrate 25 Mg Tablet PO 12.5 mg BID@0900,2100 LI Administration Neomycin/Polymyxin/Bacitracin 1 applic 08/05/24 18:00 08/06/24 10:13 Tmuxpude-Gmmf-Lhdnoqiybj Oint 28 Gm TOPICAL 1 applic BID LI Administration Potassium Chloride 20 meq 08/06/24 09:00 08/06/24 10:14 Potassium Chloride Er 20 Meq Tablet PO 20 meq DAILY LI Administration Ranolazine 500 mg 08/05/24 21:00 08/06/24 10:13 Ranolazine (12hr) 500 Mg Tablet PO 500 mg BID@,21 LI Administration PFSH Acute PFSH: Medical History Dyslipidemia Essential (primary) hypertension COPD (chronic obstructive pulmonary disease) Chronic hypoxic respiratory failure, on home oxygen therapy Diabetes mellitus, type II, insulin dependent CAD (coronary artery disease) Paroxysmal A-fib CKD (chronic kidney disease) CHF (congestive heart failure) Respiratory arrest has required intubation Non-STEMI (non-ST elevated myocardial infarction) Contrast-induced nephropathy Surgical History Hx of hysterectomy Hx of CABG Family History Unknown No problems noted. Social History Smoking and tobacco/nicotine status: former use of tobacco/nicotine Alcohol intake: never Substance/Drug Use: never Vitals/I&O/Wt Last Vital Signs Temp 97.9 F 08/06/24 11:18 Pulse 65 08/06/24 11:18 Resp 20 H 08/06/24 11:18 BP 110/65 08/06/24 11:18 Pulse Ox 97 08/06/24 11:18 O2 Del Method Nasal Cannula 08/06/24 11:18 O2 Flow Rate 2 08/06/24 07:37 FiO2 32 08/06/24 00:15 08/05/24 08/06/24 08/06/24 22:59 06:59 14:59 Intake Total 610 / 660 240 / 240 Output Total 2400 / 2400 300 / 2700 1000 / 1000 Balance -1790 / -1740 -300 / -2040 -760 / -760 Weight last 48 hrs Weight 164 lb 4.8 oz Weight 164 lb 3.2 oz Weight 160 lb Physical Exam Narrative: GENERAL: The patient is alert and oriented times three. Not in any acute distress. Somewhat tachypneic HEENT: Mild pallor. No icterus or lymphadenopathy.Oral cavity: There are no mucous membrane lesions. NECK: Trachea appears to be central. No masses noted. No JVD or thyromegaly appreciated. RESPIRATORY: Chest is symmetrical. No intercostals muscle retraction or any accessory muscle activation. There is no chest wall tenderness. Breath sounds are heard bilaterally. The intensity of breath sounds are diminished in the bases. Occasional expiratory wheezing.. No evidence of any consolidation. BREASTS: Deferred. HEART: The heart sounds are normal. No S3 or S4. Short systolic murmur in the lower sternal border. No diastolic murmurs. No pericardial rub ABDOMEN: No vessel pulsations or distention. No tenderness. No organomegaly appreciated. Bowel sounds are normally heard. : Deferred. RECTAL: Deferred. LYMPHATIC: No lymphadenopathy noted in the neck. EXTREMITIES: No edema or cyanosis. No clubbing. Peripheral pulses are palpable but weak bilaterally in the lower extremities MUSCULOSKELETAL: No acute joint deformities or swelling SKIN: There are no significant rashes or ecchymosis NEUROPSYCHIATRIC: Higher functions are grossly intact. No focal motor deficits noted. Urinary Catheter Management: Huff: Cath Placed During This Visit: yes Reason for Continuing Indwelling Catheter: Accurate Measurement of Urinary Output in Critically Ill Patients Urinary Catheter Date of Insertion: 08/05/24 Data 08/06/24 03:30 08/06/24 03:30 Other Labs: Laboratory Last Values WBC 12.70 10^3/uL (3.29-11.43) H 08/06/24 03:30 RBC 3.87 10^6/uL (3.85-5.65) 08/06/24 03:30 Hgb 10.10 g/dL (11.27-16.99) L 08/06/24 03:30 Hct 32.2 % (36-47) L 08/06/24 03:30 MCV 83.2 fl (85-98) L 08/06/24 03:30 MCH 26.1 pg (27-33) L 08/06/24 03:30 MCHC 31.4 g/dL (30-55) 08/06/24 03:30 RDW 15.1 % (12.1-15.1) 08/06/24 03:30 Plt Count 220 10^3/cmm (157-399) 08/06/24 03:30 MPV 12.2 fL (7.4-10.4) H 08/06/24 03:30 Neut % (Auto) 91.9 % 08/06/24 03:30 Lymph % (Auto) 2.8 % 08/06/24 03:30 [place] % (Auto) 4.6 % 08/06/24 03:30 Eos % (Auto) 0.0 % 08/06/24 03:30 Baso % (Auto) 0.1 % 08/06/24 03:30 Neut # (Auto) 11.69 10^3/uL (1.8-7.7) H 08/06/24 03:30 Lymph # (Auto) 0.4 10^3/uL (0.8-4.8) L 08/06/24 03:30 [place] # (Auto) 0.6 10^3/uL (0.2-0.9) 08/06/24 03:30 Eos # (Auto) 0.0 10^3/uL (0.0-0.8) 08/06/24 03:30 Baso # (Auto) 0.0 10^3/uL (0.0-0.1) 08/06/24 03:30 Nucleated RBC % (auto) 0 % 08/06/24 03:30 Nucleated RBCs # 0.0 /100WBC 08/06/24 03:30 Specimen Type Arterial 08/05/24 12:05 Sample Site Radial, right 08/05/24 12:05 ABG pH 7.36 (7.35-7.45) 08/05/24 12:05 ABG pCO2 47.4 mmHg (35-45) H 08/05/24 12:05 ABG pO2 87.6 mmHg (80.0-100.0) 08/05/24 12:05 ABG PO2/FiO2 Ratio 199 08/05/24 12:05 ABG HCO3 26.6 mmol/L (22-26) H 08/05/24 12:05 ABG O2 Saturation 97.2 08/05/24 12:05 ABG Base Excess 0.7 mmol/L (-2.0-2.0) 08/05/24 12:05 Tanner Test Pos 08/05/24 12:05 A-a O2 Gradient 21.7 mmHg (5-10) H 08/05/24 12:05 Hematocrit 33.1 % (37-47) L 08/05/24 12:05 Hgb O2 Saturation 95.2 % (95-100) 08/05/24 12:05 Carboxyhemoglobin 0.9 %THgb (0.4-20.1) 08/05/24 12:05 Methemoglobin 1.1 % (0.4-1.5) 08/05/24 12:05 Total Hemoglobin 10.8 g/dL (12-16) L 08/05/24 12:05 Sodium 140.0 mmol/L (131-143) 08/05/24 12:05 Potassium 3.8 mmol/L (3.5-5.0) 08/05/24 12:05 Glucose 410.0 mg/dL (70-115) H 08/05/24 12:05 Ionized Calcium 1.2 mmol/L (1.1-1.4) 08/05/24 12:05 O2 Delivery Device Nc 08/05/24 12:05 O2 Liters/Min 6.0 % 08/05/24 12:05 FiO2 44.0 % 08/05/24 12:05 Electronic Engraver ID Amh 08/05/24 12:05 Sodium 136 mmol/L (136-145) 08/06/24 03:30 Potassium 4.7 mmol/L (3.5-5.1) 08/06/24 03:30 Chloride 96 mmol/L (98-107) L 08/06/24 03:30 Carbon Dioxide 28 mmol/L (22-29) 08/06/24 03:30 Anion Gap 16.7 (5-19) 08/06/24 03:30 BUN 30 mg/dL (8-23) H 08/06/24 03:30 Creatinine 1.0 mg/dL (0.5-0.9) H 08/06/24 03:30 GFR Calculation Not Reportable 08/06/24 03:30 Glucose 274 mg/dL (65-115) H 08/06/24 03:30 POC Glucose 150 mg/dL (70-110) H 08/06/24 16:06 Calculated Osmolality 298 mOsm/kg (285-295) H 08/06/24 03:30 Lactic Acid 3.6 mmol/L (0.5-2.2) H 08/05/24 11:43 Lactic Acid (Sepsis) 5.5 mmol/L (0.5-2.2) H* 08/05/24 15:02 Lactate 3.3 mmol/L (0.5-2.2) H 08/06/24 03:30 Calcium 8.9 mg/dL (8.5-10.5) 08/06/24 03:30 Phosphorus 3.4 mg/dL (2.5-4.5) 08/06/24 03:30 Magnesium 2.0 mg/dL (1.7-2.3) 08/06/24 03:30 Total Bilirubin 0.3 mg/dL (0.15-1.2) 08/05/24 11:43 AST 14 U/L (0-32) 08/05/24 11:43 ALT 15 U/L (0-33) 08/05/24 11:43 Alkaline Phosphatase 95 U/L (35-105) 08/05/24 11:43 Creatine Kinase 39 U/L (26-192) 08/05/24 11:43 Troponin T 5th Gen ng/L 314 ng/L (0-10) H* 08/06/24 10:06 Troponin T Baseline 30 ng/L (0-10) H 08/05/24 11:43 Troponin T 120 Minute 28.58 ng/L (0-10) H 08/05/24 13:52 Delta Troponin T -1.42 ABS# (0-10) L 08/05/24 13:52 Troponin T Hi Sens 6Hr 66.90 ng/L (0-10) H 08/05/24 17:42 Troponin T Hi Sens 6Hr Delta 36.90 ng/L (0-12) H* 08/05/24 17:42 NT-Pro-B Natriuret Pep 8620 pg/mL (0-450) H 08/05/24 11:43 Total Protein 6.9 g/dL (6.6-8.7) 08/05/24 11:43 Albumin 4.1 g/dL (3.5-5.2) 08/05/24 11:43 Globulin 2.8 g/dL (1.3-4.6) 08/05/24 11:43 Procalcitonin 0.04 ng/mL (0-0.5) 08/05/24 11:43 Urine Color Yellow (Yellow) 08/05/24 15:23 Urine Appearance Clear (CLEAR) 08/05/24 15:23 Urine pH 5.0 (5-7) 08/05/24 15:23 Ur Specific [place] 1.022 (1.005-1.030) 08/05/24 15:23 Urine Protein Negative (Negative) 08/05/24 15:23 Urine Glucose (UA) 3+ (Normal) H 08/05/24 15:23 Urine Ketones Trace (Negative) 08/05/24 15:23 Urine Blood Negative (Negative) 08/05/24 15:23 Urine Nitrate Negative (Negative) 08/05/24 15:23 Urine Bilirubin Negative (Negative) 08/05/24 15:23 Urine Urobilinogen 0.2 mg/dL (Negative) 08/05/24 15:23 Ur Leukocyte Esterase Negative (Negative) 08/05/24 15:23 Urine RBC 0-2 /hpf (0-2) 08/05/24 15:23 Urine WBC 6-10 /hpf (0-5) 08/05/24 15:23 Ur Squamous Epith Cells 0-5 /hpf (0-5) 08/05/24 15:23 Amorphous Sediment Not Reportable 08/05/24 15:23 Urine Bacteria None seen /hpf (NONE) 08/05/24 15:23 Hyaline Casts 1.21 /lpf 08/05/24 15:23 Influenza A (PCR) Negative (Negative) 08/05/24 11:56 Influenza Type B (PCR) Negative (Negative) 08/05/24 11:56 RSV (PCR) Negative (Negative) 08/05/24 11:56 SARS-CoV-2 (PCR) Negative (Negative) 08/05/24 11:56 Micro: Microbiology 08/05/24 11:50 Blood Culture - Preliminary Blood NEGATIVE TO DATE 08/05/24 11:55 Blood Culture - Preliminary Blood NEGATIVE TO DATE Other data: The EKG showed a sinus rhythm with poor R wave progression. Minimal left axis deviation. Diffuse nonspecific ST-T changes. Possible left atrial enlargement Echocardiogram on 07/17/2024 LV systolic function is normal with EF 50 to 55%. Above- mentioned regional wall motion abnormalities are seen. Grossly RV function is mildly reduced. Left atrial dilation. Trace pericardial effusion A&P Assessment and plan (1) Acute non-ST elevation myocardial infarction (NSTEMI): Note patient seems to have upper extremity troponinT. Her clinical features are assisting in [id number] myocardial infarction. Hemodynamically she seems to be stable. Apparently she was having nonrevascularizable lesions. Progression of disease in the circumflex artery is a strong consideration. (2) Acute on chronic diastolic CHF (congestive heart failure): Patient is LV ejection fraction was around 50 to 55% by echocardiogram at the beginning of this month. There ischemia might be causing recurrent diastolic heart failure. Since the lesions are nonrevascularizable, optimizing the antianginal therapy would be appropriate. I may increase the dose of the ranolazine to 1000 mg p.o. twice daily (3) Paroxysmal A-fib: Patient is on amiodarone. Patient apparently had a reaction to some antiarrhythmic drugs in the past. The details are not available. This may need to be looked into. (4) Dyslipidemia: May continue on the current medications (5) Essential (primary) hypertension: The blood pressure is under control. Continue on the current treatment. (6) Diabetes mellitus, type II, insulin dependent: Appropriate treatment of the diabetes, as per the primary (7) Chronic hypoxic respiratory failure, on home oxygen therapy: (8) CKD (chronic kidney disease): The oxygenation seems to be improving. Qualifiers: Chronic kidney disease stage: stage 3 (moderate) Chronic kidney disease stage 3 subtype: stage 3a (GFR 45-59) Qualified Code(s): N18.31 - Chronic kidney disease, stage 3a Plan Since the patient was deemed not a candidate for any revascularization procedure, optimizing the medical treatment would be the plan of action. I may go up on the dose of the ranolazine to 1000 mg p.o. twice daily. May be kept on the other medications as it is. Based on the results of the above, further recommendations will be made Thank you for the opportunity to eval this patient and make these recommendations PDMP PDMP Reviewed: Not Reviewed Coding Level of Care Code 49345 Diagnoses Acute non-ST elevation myocardial infarction (NSTEMI) I21.4 Acute on chronic diastolic CHF (congestive heart failure) I50.33 Paroxysmal A-fib I48.0 Dyslipidemia E78.5 Essential (primary) hypertension I10 Diabetes mellitus, type II, insulin dependent E11.9; Z79.4 Chronic hypoxic respiratory failure, on home oxygen therapy J96.11; Z99.81 Stage 3a chronic kidney disease N18.31 Chronic kidney disease stage: stage 3 (moderate) Chronic kidney disease stage 3 subtype: stage 3a (GFR 45-59) Time Spent (min) 65
--- NOTE | 2024-08-06 14:08 | PM.PN ---
Subjective Subjective: Seen today Noted overnight troponin 345. Patient denies chest pain shortness of breath at this time. She states she feels subjectively better. Urine output 2800 in last 24 hours. Vitals/I&O/Wt Last Vital Signs Temp 97.9 F 08/06/24 11:18 Pulse 65 08/06/24 11:18 Resp 20 H 08/06/24 11:18 BP 110/65 08/06/24 11:18 Pulse Ox 97 08/06/24 11:18 O2 Del Method Nasal Cannula 08/06/24 11:18 O2 Flow Rate 2 08/06/24 07:37 FiO2 32 08/06/24 00:15 08/05/24 08/06/24 08/06/24 22:59 06:59 14:59 Intake Total 610 / 660 240 / 240 Output Total 2400 / 2400 300 / 2700 1000 / 1000 Balance -1790 / -1740 -300 / -2040 -760 / -760 Weight last 48 hrs Weight 74.525 kg Weight 74.48 kg Weight 72.575 kg Physical Exam Narrative: Patient is awake and alert. No conversational dyspnea noted Good bilateral air entry with mild rhonchi at bases. No crackles or wheezes appreciated. No supraclavicular retractions noted at this time. Normocephalic atraumatic, EOMI Normal S1-S2 Abdomen soft nontender Chest covered with Optifoam. Ulcer noted at base of left great toe. Skin: NARRATIVE SKIN EXAM: Urinary Catheter Management: Gurrola: Cath Placed During This Visit: yes Reason for Continuing Indwelling Catheter: Accurate Measurement of Urinary Output in Critically Ill Patients Urinary Catheter Date of Insertion: 08/05/24 Data 08/06/24 03:30 08/06/24 03:30 Micro: Microbiology 08/05/24 11:50 Blood Culture - Preliminary Blood NEGATIVE TO DATE 08/05/24 11:55 Blood Culture - Preliminary Blood NEGATIVE TO DATE A&P Assessment and plan (1) Acute on chronic diastolic CHF (congestive heart failure): Secondary to missed dose of diuretics yesterday and high salt intake overnight. Symptom onset occurred with exertion today and she was getting herself ready to make a doctor's appointment. It was this doctor's appointment that led to her missing the dose of diuretics as she did not want having to urinate to hinder her travel. She also did not realize that the Ramen noodles she consumed had such a high salt intake. She has chronically been on losartan but earlier this month was prescribed Entresto. It is unclear at this time if she has picked up the prescription for Entresto or stopped losartan. Pharmacy was closed and we were not able to confirm with them today. Ms. Henderson herself is unsure. - IV diuresis - Potassium orally - Monitor output and renal function closely - Gurrola catheter placed in the emergency room to assist with this - Will see if pharmacy can assist in determining if she ever filled her Entresto prescription and help ultimately clarify if she should be on losartan or Entresto at discharge as she should not be on both which I explained to her - Will continue usual nitrate management - BiPAP therapy as needed - Wean oxygen to home 2 L by nasal cannula as able, currently requiring 4 L - Nutrition for diet education regarding high salt foods - Reviewed with patient importance of limiting missed doses of medications and that when she does miss to try to follow a low salt diet to limit fluid retention potential (2) Acute respiratory failure with hypoxia and hypercapnia: By the time of arrival here showing evidence of respiratory acidosis with appropriate compensation. Normally on 2 L of oxygen by nasal cannula but was requiring 40-50% FiO2 initially along with BiPAP therapy. She was intubated earlier this month due to her degree of respiratory distress and had another event in May of this year in which she received CPR and intubation also for respiratory distress. Elevated AA gradient noted today is similar to prior workups and I suspect that it is in part due to VQ mismatch under acute circumstances. She did have a CTA earlier this year that did not show evidence of pulmonary emboli when presenting with more severe clinical symptoms. En route to the hospital today she received high-dose steroids and continuous nebulizer treatment. She has improved significantly with treatment administered both by EMS and the emergency room but continues to require more oxygen than her usual baseline. - Bipap as needed - Wean to home oxygen as able - Breathing treatments as needed - For now will monitor without additional steroid therapy as presentation appears more CHF than COPD related (3) CKD (chronic kidney disease): Based on review of records and prior laboratory values at presentations to the hospital and after diuresis looks to have chronic kidney disease stage IIIa possibly 3B at baseline. Current creatinine 1.0. - Monitor renal function with diuresis, expect increasing creatinine closer to baseline which I would anticipate is from 1.5-1.7. - Maintain gurrola placed for diuresis in setting of CHF and respiratory distress Qualifiers: Chronic kidney disease stage: stage 3 (moderate) Chronic kidney disease stage 3 subtype: stage 3a (GFR 45-59) Qualified Code(s): N18.31 - Chronic kidney disease, stage 3a (4) CAD (coronary artery disease): Multivessel disease most recently evaluated with cardiac catheterization in December of last year. She has had prior CABG. She had subtotally occluded [place] left circumflex artery that has been culprit lesion. She was previously transferred for evaluation for high risk PCI but ultimately recommendation was for medical management. She is managed on Plavix, Ranexa, isosorbide and has sublingual nitroglycerin if needed. Not chronically on a beta-sabrina due to borderline blood pressures with other management. Denies recent chest pain or chest pain associated with today's acute respiratory event. 2-hour troponin delta today negative though with baseline troponin elevation. - Continue Ranexa and isosorbide - Continue Plavix - Follow-up 6-hour troponin Qualifiers: Associated angina: with other forms of angina Coronary Disease-Associated Artery/Lesion type: [place] artery [place] vs. transplanted heart: [place] heart Qualified Code(s): I25.118 - Atherosclerotic heart disease of [place] coronary artery with other forms of angina pectoris (5) Paroxysmal A-fib: Chronically on amiodarone. Currently in sinus rhythm. Initially tachycardic but improved with improvement in respiratory status. - Continue home amiodarone - Telemetry monitoring (6) COPD (chronic obstructive pulmonary disease): Known to have chronic COPD. Currently does not appear acutely exacerbated though did sound as such when EMS saw her guiding treatment with steroids and continuous nebulizer treatment and route to the hospital. Does not describe increasing sputum production or productive cough. Based on examination at this point in time do not feel COPD is primary issue though baseline pulmonary function certainly a contributor to overall presentation. -Wean back to home oxygen as able - Will continue breathing treatments as needed at home dosing with appropriate formulary substitution for medications not available - Will hold further steroids at this time; received 125 of Solu-Medrol and route to the ER - Monitor need to adjust therapy considerations based on symptoms and overall examination Qualifiers: COPD type: emphysema Emphysema type: panlobular Qualified Code(s): J43.1 - Panlobular emphysema (7) Diabetes mellitus, type II, insulin dependent: Has associated chronic kidney disease stage IIIa based on my review of her records. Takes Tresiba at night and NovoLog during the day. Current blood sugars are elevated after receiving steroids and route. She did take her insulin last evening. A1c in May was 7.4. UA today with some glucosuria. Currently with hyperglycemia. - Lantus at bedtime with insulin aspartate before meals and at bedtime - Monitor sugars for adjustment to therapy with steroid administration (8) Dyslipidemia: Chronically on statin therapy - Continue home atorvastatin (9) Anemia: Normocytic anemia that I suspect is delusional in nature at this point in time. Review of prior labs shows that she often has evidence of anemia at presentation that normalizes after appropriate diuresis during hospital stay. No recent signs of bleeding reported. She is chronically on Plavix but not anticoagulation. - Recheck CBC in the morning Qualifiers: Anemia type: other cause Other causes of anemia: other cause, not classified Qualified Code(s): D64.89 - Other specified anemias (10) Leukocytosis: Review of records shows fairly persistent leukocytosis though she is usually in an acute situation when she presents. She has received steroids both at this time prior to presentation as well as most other visits. Difficult to ascertain significance of leukocytosis given this. Has a slight left shift but beyond skin findings noted below no evidence of other definitive infection. Chest x-ray read indicates cannot rule out pneumonia but does not describe increasing respiratory symptoms fever. Viral screening negative. Procalcitonin was normal. Elevated lactic acid noted which I think we can explain from degree of hypoxemia from acute respiratory distress. Initially tachycardic but without direct intervention beyond transferring to ER [facility] and allowing to rest, heart rate improved. Blood pressures have been stable. BUN and creatinine are lower than they had been at discharge last time. While she has some numerical measures to meet a potential diagnosis of sepsis, my clinical judgment is that she is not septic at this time as other cardiopulmonary factors could account for variables that might indicate such. She did receive a small fluid bolus in the emergency room due to the elevation in lactic acid as well as empiric antibiotics and blood culture collection. She did not receive a 30 cc/kg fluid bolus given acute CHF. - CBC can be rechecked in the outpatient setting when not presenting acutely or after having been on steroids to ensure normalization between acute episodes as per PCP discretion - Monitor for signs and symptoms that would suggest sepsis diagnosis due to infectious causes and adjust management accordingly Qualifiers: Leukocytosis type: unspecified Qualified Code(s): D72.829 - Elevated white blood cell count, unspecified (11) 2nd deg burn chest wall: Some boiling soup/Ramen she made last night has an area on each breast and 1 between the breast. Most significant is at the left breast. - Triple antibiotic ointment - Keep clean - Pain control - Avoid placing EKG and telemetry stickers directly over bagley as able Qualifiers: Encounter type: initial encounter Qualified Code(s): T21.21XA - Burn of second degree of chest wall, initial encounter (12) Cellulitis of great toe, left: From a toenail wound to the left great toe. Images noted above. Has some extension to the base of the great toe but not further up the foot at this time. - Received vancomycin and Zosyn in the emergency room as coverage for possibility of pneumonia - At this point will change to oral doxycycline - Monitor cellulitis for worsening both here and after discharge Plan Inpatient admission VTE prophylaxis: Lovenox and SCDs Antibiotics: s/p vancomycin and zosyn in ED x 1 dose; started on oral doxycycline and triple antibiotic ointment Pending studies: 6 hr troponin Telemetry: ordered due to history of paroxysmal atrial fibrillation and acute CHF Gurrola: placed in the ER due to acute CHF and known chronic kidney disease for close monitoring of urine output especially considering degree of respiratory distress upon presentation Line(s): peripheral IVs Disposition plan: Home with outpatient follow up anticipated. Has not been able to keep appointments with PCP or cardiology lately due to repeated acute events leading to acute hospitalization. Current goals of care are to get back home. Will need ongoing discussion about what goals we can meaningfully achieve for her with comorbidities. Will need clarification regarding Entresto versus Losartan on discharge paperwork once we are able to confirm if she has filled the Entresto prescription with pharmacy (I called [facility] but no answer; asked pharmacy to assist tomorrow) Code Status: Full Code Supportive care otherwise Findings, concerns and plans were discussed with patient and she was given an opportunity to ask questions 08/06/2024 Continue Lasix 60 IV daily Consult cardiology. Troponin elevated. Repeated this a.m. still in 300 range. Continue home to monitor at this time. Patient does not complain of any chest pain. Has had decent urine output in last 24 hours 2800. Continue therapeutic Lovenox. Continue triple antibiotic ointment for lesions on chest Consult podiatry for evaluation of left great toe. Patient may require debridement. Patient did get vancomycin and Zosyn as coverage for possibility of pneumonia in the ER which will cover for ulcer in the toe as well. Patient placed on doxycycline 100 twice daily. I will continue for now. Patient currently on nasal cannula. Continue to diurese and await recommendations from cardiology. Continue to monitor potassium Check BMP daily. Will check another lactic acid Echo from 07/18/2024 shows grossly RV function mildly reduced normal EF, mild hypokinesis of inferior lateral and anterolateral wall. PDMP PDMP Reviewed: Not Reviewed Attestations Medical Necessity Statement*: CHF exacerbation Diagnoses Acute on chronic diastolic CHF (congestive heart failure) I50.33 Acute respiratory failure with hypoxia and hypercapnia J96.01; J96.02 Stage 3a chronic kidney disease N18.31 Chronic kidney disease stage: stage 3 (moderate) Chronic kidney disease stage 3 subtype: stage 3a (GFR 45-59) Coronary artery disease involving [place] coronary artery of [place] heart with other form of angina pectoris I25.118 Associated angina: with other forms of angina Coronary Disease-Associated Artery/Lesion type: [place] artery [place] vs. 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
[2024-08-06 16:15] LABS: Glucose Point of Care 150 mg/dL (70-110)
--- NOTE | 2024-08-06 16:26 | PM.CONSULT ---
Providers/Reason For Consult Consulting Physician/Specialty*: Effie Salas.P.M./podiatry Reason for Consult*: Left great toe wound Attending Physician: Kezia Scott MD Primary Care Provider: Antonio Delgado MD History of Present Illness History of Present Illness Sally Henderson is a 84 year old female who presented to the emergency department on 08/05/2024 with difficulty breathing. Patient has history of COPD and CHF. Patient was admitted for further workup and evaluation. Upon exam patient was found to have erythematous left hallux. Patient states that this is due to a cat from her fingernail that happened a few days ago. Patient and patient's daughter report that toe appeared much worse in prior days with erythema. However, since admission to the hospital and antibiotic therapy, they are relieved to see improvement. Podiatry was consulted to evaluate and provide further treatment recommendations. Review of Systems General: Reports: 10 or more systems reviewed and unremarkable except in HPI and below Const: Denies: fever(s), chills, body aches or change in appetite Eyes: Denies: change in vision or blurry vision Card: Denies: chest pain, palpitations or irregular heart rhythm Resp: Denies: dyspnea GI: Denies: abdominal pain, nausea, vomiting or diarrhea Musc: Reports: joint stiffness Skin/Breast: Reports: non-healing lesions and lesions Neuro: Reports: numbness in extremities Medications/Allergies Home Medications ?Medication ?Instructions ?Recorded ?Confirmed ?Last Taken ?Type clopidogrel 75 mg tablet 75 mg PO BEDTIME #90 tabs 03/27/24 08/05/24 08/04/24 Rx ranolazine 500 mg tablet,extended 500 mg PO BID #60 tabs 03/27/24 08/05/24 08/04/24 Rx release,12 hr nitroglycerin 0.4 mg sublingual 0.4 mg buccal PRN PRN Chest Pain 04/10/24 08/05/24 Unknown History tablet furosemide 40 mg tablet 40 mg PO BID@0800,1400 30 days #60 05/28/24 08/05/24 08/04/24 Rx tabs isosorbide mononitrate 60 mg 60 mg PO DAILY 06/07/24 08/05/24 08/04/24 History tablet,extended release 24 hr insulin aspart U-100 100 unit/mL See Rx Instructions .Route 06/11/24 08/05/24 08/04/24 Rx (3 mL) subcutaneous pen (Novolog .COMPLEX #15 mL FlexPen U-100 Insulin aspart) insulin degludec 200 unit/mL (3 20 unit (0.1 mL) SUBCUT DAILY #9 mL 06/11/24 08/05/24 08/04/24 Rx mL) subcutaneous pen (Tresiba FlexTouch U-200 insulin) amiodarone 200 mg tablet 200 mg PO DAILY 07/18/24 08/05/24 08/04/24 History atorvastatin 40 mg tablet 40 mg PO QPM 07/18/24 08/05/24 08/04/24 History tramadol 50 mg tablet 50 mg PO Q6H PRN Pain 07/18/24 08/05/24 Unknown History albuterol sulfate 2.5 mg/3 mL 2.5 mg (3 mL) inhalation TID PRN 07/23/24 08/05/24 Unknown Rx (0.083 %) solution for nebulization shortness of breath or wheezing 30 days #90 mL budesonide-formoterol HFA 80 1 inh inhalation BID #10.2 grams 07/23/24 08/05/24 08/04/24 Rx mcg-4.5 mcg/actuation aerosol inhaler (Symbicort) nebulizer and compressor ([id number] #1 ea 07/23/24 08/05/24 Unknown Rx Nebulizer) sacubitril 24 mg-valsartan 26 mg 1 tab PO BID #60 tabs 07/25/24 08/05/24 08/04/24 Rx tablet (Entresto) losartan 25 mg tablet 25 mg PO DAILY 08/05/24 08/05/24 08/04/24 History potassium chloride 20 mEq 20 meq PO DAILY 08/05/24 08/05/24 08/04/24 History tablet,extended release(part/cryst) Allergies Allergy/AdvReac Type Severity Reaction Status Date / Time No Known Allergies Allergy Verified 07/18/24 06:33 Current Medications Generic Name Dose Route Start Last Admin Trade Name Freq PRN Reason Stop Dose Admin Albuterol Sulfate 2.5 mg 08/05/24 16:58 08/06/24 07:29 Albuterol 2.5 Mg/3 Ml Neb INHALATION 2.5 mg Q6H.RESP PRN Administration shortness of breath or wheezing Amiodarone HCl 200 mg 08/06/24 09:00 08/06/24 10:14 Amiodarone 200 Mg Tablet PO 200 mg DAILY LI Administration Aspirin 81 mg 08/05/24 18:55 08/06/24 10:14 Aspirin 81 Mg Ec Tablet PO 81 mg DAILY LI Administration Atorvastatin Calcium 40 mg 08/05/24 18:00 08/05/24 17:55 Atorvastatin 40 Mg Tablet PO 40 mg QPM LI Administration Budesonide 0.5 mg 08/05/24 20:00 08/06/24 07:29 Budesonide 0.5 Mg/2 Ml Neb INHALATION 0.5 mg BID.RESPIRATORY LI Administration Clopidogrel Bisulfate 75 mg 08/05/24 21:00 08/05/24 21:32 Clopidogrel 75 Mg Tablet PO 75 mg BEDTIME LI Administration Docusate Sodium 100 mg 08/05/24 18:00 08/06/24 10:15 Docusate Sodium 100 Mg Capsule PO Not Given BID LI Doxycycline Monohydrate 100 mg 08/05/24 18:00 08/06/24 10:14 Doxycycline 100 Mg Tablet PO 100 mg BID LI Administration Protocol Enoxaparin Sodium 70 mg 08/06/24 08:00 08/06/24 10:12 Enoxaparin 80 Mg/0.8 Ml Syringe SUBCUT 70 mg Q12H LI Administration Furosemide 60 mg 08/06/24 06:00 08/06/24 07:04 Furosemide 10 Mg/Ml Sdv 10ml IVP 60 mg Q24H LI Administration Insulin Glargine 20 unit 08/05/24 21:00 08/05/24 21:26 Insulin Glargine 100 Units/1 Ml SUBCUT 20 unit BEDTIME LI Administration Insulin Human Lispro 0 unit 08/05/24 21:00 08/05/24 21:25 Insulin Lispro 100 Unit/1 Ml SUBCUT 8 unit BEDTIME LI Administration Protocol Insulin Human Lispro 0 unit 08/05/24 18:00 08/06/24 12:36 Insulin Lispro 100 Unit/1 Ml SUBCUT 10 unit TIDWM LI Administration Protocol Isosorbide Mononitrate 60 mg 08/06/24 09:00 08/06/24 10:14 Isosorbide Mononitrate Er 60 Mg Tablet PO 60 mg DAILY LI Administration Metoprolol Tartrate 12.5 mg 08/05/24 21:00 08/06/24 10:18 Metoprolol Tartrate 25 Mg Tablet PO 12.5 mg BID@0900,2100 LI Administration Neomycin/Polymyxin/Bacitracin 1 applic 08/05/24 18:00 08/06/24 10:13 Pvtuomdr-[id number]-Bskzjhdvjl Oint 28 Gm TOPICAL 1 applic BID LI Administration Potassium Chloride 20 meq 08/06/24 09:00 08/06/24 10:14 Potassium Chloride Er 20 Meq Tablet PO 20 meq DAILY LI Administration Ranolazine 500 mg 08/05/24 21:00 08/06/24 10:13 Ranolazine (12hr) 500 Mg Tablet PO 500 mg BID@ LI Administration PFSH Acute PFSH: Medical History (Updated 08/06/24 @ 16:32 by Honorio Pride DPM) Dyslipidemia Essential (primary) hypertension COPD (chronic obstructive pulmonary disease) Chronic hypoxic respiratory failure, on home oxygen therapy Diabetes mellitus, type II, insulin dependent CAD (coronary artery disease) Paroxysmal A-fib CKD (chronic kidney disease) CHF (congestive heart failure) Respiratory arrest has required intubation Non-STEMI (non-ST elevated myocardial infarction) Contrast-induced nephropathy Surgical History Hx of hysterectomy Hx of CABG Family History Unknown No problems noted. Social History Smoking and tobacco/nicotine status: former use of tobacco/nicotine Alcohol intake: never Substance/Drug Use: never Vitals/I&O/Wt Last Vital Signs Temp 97.9 F 08/06/24 11:18 Pulse 62 08/06/24 16:00 Resp 24 H 08/06/24 16:00 BP 105/58 08/06/24 16:00 Pulse Ox 97 08/06/24 16:00 O2 Del Method Nasal Cannula 08/06/24 16:00 O2 Flow Rate 2 08/06/24 07:37 FiO2 32 08/06/24 00:15 08/06/24 08/06/24 08/06/24 06:59 14:59 22:59 Intake Total 240 / 240 Output Total 300 / 2700 1000 / 1000 Balance -300 / -2040 -760 / -760 Weight last 48 hrs Weight 164 lb 4.8 oz Weight 164 lb 3.2 oz Weight 160 lb Physical Exam Narrative: BELOW IS A FOCUSED LOWER EXTREMITY EXAM GENERAL: A&O x 3 VASCULAR: DP/PT pulses palpable 2/4 with CFT intact, <3seconds to distal digits DERMATOLOGICAL: Superficial, stable eschar to plantar medial aspect of left hallux. Mild surrounding erythema. No active drainage no underlying fluctuance no sign of deep space abscess. Negative probe to bone. MUSCULOSKELETAL: Ankle joint and hindfoot range of motion within normal limits bilaterally. No tenderness with palpation of medial, lateral or anterior ankle bilaterally. No tenderness with palpation of lateral ankle ligaments bilaterally. No pain with palpation of midfoot bilaterally. 5/5 muscle strength in all 4 quadrants of the lower extremity when tested against resistance. No gross musculoskeletal deformities noted. NEUROLOGICAL: Neurological sensation to the affected foot and ankle is present through L4-S1 dermatomes with no hyper/hypoesthesias, negative Tinel or Valleix's sign Urinary Catheter Management: Huff: Cath Placed During This Visit: yes Reason for Continuing Indwelling Catheter: Accurate Measurement of Urinary Output in Critically Ill Patients Urinary Catheter Date of Insertion: 08/05/24 Data 08/06/24 03:30 08/06/24 03:30 Micro: Microbiology 08/05/24 11:50 Blood Culture - Preliminary Blood NEGATIVE TO DATE 08/05/24 11:55 Blood Culture - Preliminary Blood NEGATIVE TO DATE A&P Assessment and plan (1) Abrasion foot/toe: (2) Open toe wound: Plan -Superficial, stable eschar to left plantar medial hallux. No abscess -Labs and vitals reviewed -WBC 12.7 -ESR not available -CRP not available -HR 62 -RR 24 -Tmax 98.4 -Abx doxycycline -Diet: Okay for diet from podiatry standpoint -No surgical intervention from podiatry standpoint. Left hallux wound cellulitis has improved with antibiotic therapy. Local wound care with triple antibiotic ointment and Band-Aid is appropriate -Pain Mgmt: Per primary -Weight bearing: Weightbearing as tolerated -Dressings: Band-Aid to left hallux -Discharge plan: Patient is okay to discharge home from podiatry standpoint. Follow-up with podiatry in outpatient setting within 2 weeks of discharge. -Appreciate consult -Podiatry will sign off. Please reconsult if needed. PDMP PDMP Reviewed: Not Reviewed Coding Level of Care Code Acute Code for Chg Fwd Diagnoses Abrasion foot/toe S90.819A Open toe wound S91.109A
[2024-08-06] MEDS: atorvastatin 40 mg Tablet PO (17:25)
[2024-08-06] MEDS: ranolazine (12HR) 500 mg Tablet 1000 MG PO (20:23)
[2024-08-06] MEDS: clopidogrel 75 mg Tablet PO (20:23)
[2024-08-06 20:42] LABS: Glucose Point of Care 224 mg/dL (70-110)
[2024-08-06] MEDS: insulin glargine 100 units/1 mL 20 UNIT SUBCUT (21:17)
[2024-08-07] VITALS (11 sets, daily range): BP systolic 102–135; BP diastolic 46–69; PULSE 57–67; RESP 9–28; TEMP 36.6–37.2; O2SAT 94–99
[2024-08-07 04:20] LABS: Basophils % 0.2 %; Eosinophils % 0.2 %; Hematocrit 33.8 % (36-47); Lymphocytes % 6.1 %; Mean Corpuscular HGB Conc 30.5 g/dL (30-55); Mean Corpuscular Hemoglobin 25.3 pg (27-33); Monocytes # 1.1 10^3/uL (0.2-0.9); Monocytes % 6.6 %; Neutrophils # 14.72 10^3/uL (1.8-7.7); Neutrophils % 86.5 %; Nucleated Red Blood Cells % 0 %; Platelet Count 226 10^3/cmm (157-399); Red Blood Count 4.07 10^6/uL (3.85-5.65); Red Cell Distribution Width 15.2 % (12.1-15.1); White Blood Count 17.02 10^3/uL (3.29-11.43)
[2024-08-07 04:40] LABS: Anion Gap 13.4 (5-19); Blood Urea Nitrogen 41 mg/dL (8-23); Calcium 8.9 mg/dL (8.5-10.5); Carbon Dioxide 32 mmol/L (22-29); Chloride 97 mmol/L (98-107); Creatinine Clr Calc Pharmacy 38.2017; Glucose 309 mg/dL (65-115); Magnesium 2.1 mg/dL (1.7-2.3); Osmolality Calculated 308 mOsm/kg (285-295); Potassium 4.4 mmol/L (3.5-5.1); Sodium 138 mmol/L (136-145)
[2024-08-07] MEDS: FUROsemide 10 mg/mL SDV 10mL 60 MG IVP (05:14)
[2024-08-07 06:37] LABS: Glucose Point of Care 209 mg/dL (70-110)
[2024-08-07 08:03] LABS: Glucose Point of Care 225 mg/dL (70-110)
--- NOTE | 2024-08-07 08:21 | XR_ITS ---
WS: [id number] Exam: XR chest 1V portable [id number] Date/Time of Exam: 08/07/2024 8:37 AM Reason For Exam: sob Comparison 08/05/2024. The lungs are fully expanded and clear. Mild cardiac enlargement unchanged. No pleural effusion identified. Chronic elevation of the RIGHT diaphragm. Signs of previous CABG surgery. Numerous old left-sided rib fractures. XR/XR chest 1V portable [id number] IMPRESSION: 1. Previously noted bilateral infiltrates have cleared since the prior study. 2. Cardiac enlargement unchanged.
[2024-08-07] MEDS: insulin lispro 100 unit/1 mL SUBCUT ×3 (08:22→21:11)
[2024-08-07] MEDS: budesonide 0.5 mg/2 mL Neb INHALATION ×2 (08:25→21:25)
[2024-08-07] MEDS: albuterol 2.5 mg/3 mL Neb INHALATION ×2 (08:25→13:25)
[2024-08-07] MEDS: docusate sodium 100 mg Capsule PO ×2 (10:05→17:21)
[2024-08-07] MEDS: amiodarone 200 mg Tablet PO (10:05)
[2024-08-07] MEDS: ranolazine (12HR) 500 mg Tablet 1000 MG PO ×2 (10:05→17:21)
[2024-08-07] MEDS: doxycycline 100 mg Tablet PO ×2 (10:06→17:22)
[2024-08-07] MEDS: isosorbide mononitrate ER 60 mg Tablet PO (10:06)
[2024-08-07] MEDS: aspirin 81 mg EC Tablet PO (10:06)
[2024-08-07] MEDS: enoxaparin 80 mg/0.8 mL Syringe 70 MG SUBCUT ×2 (10:07→20:29)
[2024-08-07] MEDS: metoprolol tartrate 25 mg Tablet 12.5 MG PO (10:07)
[2024-08-07] MEDS: neomycin-poly-bacitracin oint 28 gm 1 APPLIC TOPICAL ×2 (10:09→17:22)
--- NOTE | 2024-08-07 10:50 | PC.SOCIAL ---
IMM Updated Updated pt on IMM. No questions voiced. Provided pt a copy. Initialed, dated, & timed a copy & placed in chart.
[2024-08-07 12:04] LABS: Glucose Point of Care 108 mg/dL (70-110)
--- NOTE | 2024-08-07 12:19 | P.PN_ITS ---
Subjective 2 Subjective: seen this am pt feeling better stating she is feeling better and wants to go home denies chest pain, Vitals/I&O/Wt Last Vital Signs Temp 98.6 F 08/07/24 12:00 Pulse 59 L 08/07/24 12:00 Resp 22 H 08/07/24 12:00 BP 111/57 08/07/24 12:00 Pulse Ox 99 08/07/24 12:00 O2 Del Method Nasal Cannula 08/07/24 12:00 O2 Flow Rate 2 08/07/24 12:00 FiO2 32 08/07/24 04:10 08/06/24 08/07/24 08/07/24 22:59 06:59 14:59 Intake Total 200 / 440 240 / 240 Output Total 1100 / 2100 Balance -900 / -1660 240 / 240 Weight last 48 hrs Weight 72.529 kg Weight 74.525 kg Weight 74.48 kg Physical Exam 2 Narrative: Patient is awake and alert. No conversational dyspnea noted Good bilateral air entry with mild rhonchi at bases. No crackles or wheezes appreciated. Normocephalic atraumatic, EOMI Normal S1-S2 Abdomen soft nontender Chest covered with Optifoam. Ulcer noted at base of left great toe. breast folds slightly erythematous Urinary Catheter Management: Gurrola: Cath Placed During This Visit: yes Reason for Continuing Indwelling Catheter: Accurate Measurement of Urinary Output in Critically Ill Patients Urinary Catheter Date of Insertion: 08/05/24 Data 08/07/24 03:56 08/07/24 03:56 Micro: Microbiology 08/05/24 11:50 Blood Culture - Preliminary Blood NEGATIVE TO DATE 08/05/24 11:55 Blood Culture - Preliminary Blood NEGATIVE TO DATE A&P Assessment and plan (1) Acute on chronic diastolic CHF (congestive heart failure): Secondary to missed dose of diuretics yesterday and high salt intake overnight. Symptom onset occurred with exertion today and she was getting herself ready to make a doctor's appointment. It was this doctor's appointment that led to her missing the dose of diuretics as she did not want having to urinate to hinder her travel. She also did not realize that the Ramen noodles she consumed had such a high salt intake. She has chronically been on losartan but earlier this month was prescribed Entresto. It is unclear at this time if she has picked up the prescription for Entresto or stopped losartan. Pharmacy was closed and we were not able to confirm with them today. Ms. Henderson herself is unsure. - IV diuresis - Potassium orally - Monitor output and renal function closely - Gurrola catheter placed in the emergency room to assist with this - Will see if pharmacy can assist in determining if she ever filled her Entresto prescription and help ultimately clarify if she should be on losartan or Entresto at discharge as she should not be on both which I explained to her - Will continue usual nitrate management - BiPAP therapy as needed - Wean oxygen to home 2 L by nasal cannula as able, currently requiring 4 L - Nutrition for diet education regarding high salt foods - Reviewed with patient importance of limiting missed doses of medications and that when she does miss to try to follow a low salt diet to limit fluid retention potential (2) Acute respiratory failure with hypoxia and hypercapnia: By the time of arrival here showing evidence of respiratory acidosis with appropriate compensation. Normally on 2 L of oxygen by nasal cannula but was requiring 40-50% FiO2 initially along with BiPAP therapy. She was intubated earlier this month due to her degree of respiratory distress and had another event in May of this year in which she received CPR and intubation also for respiratory distress. Elevated AA gradient noted today is similar to prior workups and I suspect that it is in part due to VQ mismatch under acute circumstances. She did have a CTA earlier this year that did not show evidence of pulmonary emboli when presenting with more severe clinical symptoms. En route to the hospital today she received high-dose steroids and continuous nebulizer treatment. She has improved significantly with treatment administered both by EMS and the emergency room but continues to require more oxygen than her usual baseline. - Bipap as needed - Wean to home oxygen as able - Breathing treatments as needed - For now will monitor without additional steroid therapy as presentation appears more CHF than COPD related (3) CKD (chronic kidney disease): Based on review of records and prior laboratory values at presentations to the hospital and after diuresis looks to have chronic kidney disease stage IIIa possibly 3B at baseline. Current creatinine 1.0. - Monitor renal function with diuresis, expect increasing creatinine closer to baseline which I would anticipate is from 1.5-1.7. - Maintain gurrola placed for diuresis in setting of CHF and respiratory distress Qualifiers: Chronic kidney disease stage: stage 3 (moderate) Chronic kidney disease stage 3 subtype: stage 3a (GFR 45-59) Qualified Code(s): N18.31 - Chronic kidney disease, stage 3a (4) CAD (coronary artery disease): Multivessel disease most recently evaluated with cardiac catheterization in December of last year. She has had prior CABG. She had subtotally occluded hamilton left circumflex artery that has been culprit lesion. She was previously transferred for evaluation for high risk PCI but ultimately recommendation was for medical management. She is managed on Plavix, Ranexa, isosorbide and has sublingual nitroglycerin if needed. Not chronically on a beta-sabrina due to borderline blood pressures with other management. Denies recent chest pain or chest pain associated with today's acute respiratory event. 2-hour troponin delta today negative though with baseline troponin elevation. - Continue Ranexa and isosorbide - Continue Plavix - Follow-up 6-hour troponin Qualifiers: Associated angina: with other forms of angina Coronary Disease- Associated Artery/Lesion type: hamilton artery [place] vs. transplanted heart: n ative heart Qualified Code(s): I25.118 - Atherosclerotic heart disease of hamilton coronary artery with other forms of angina pectoris (5) Paroxysmal A-fib: Chronically on amiodarone. Currently in sinus rhythm. Initially tachycardic but improved with improvement in respiratory status. - Continue home amiodarone - Telemetry monitoring (6) COPD (chronic obstructive pulmonary disease): Known to have chronic COPD. Currently does not appear acutely exacerbated though did sound as such when EMS saw her guiding treatment with steroids and continuous nebulizer treatment and route to the hospital. Does not describe increasing sputum production or productive cough. Based on examination at this point in time do not feel COPD is primary issue though baseline pulmonary function certainly a contributor to overall presentation. -Wean back to home oxygen as able - Will continue breathing treatments as needed at home dosing with appropriate formulary substitution for medications not available - Will hold further steroids at this time; received 125 of Solu-Medrol and route to the ER - Monitor need to adjust therapy considerations based on symptoms and overall examination Qualifiers: COPD type: emphysema Emphysema type: panlobular Qualified Code(s): J 43.1 - Panlobular emphysema (7) Diabetes mellitus, type II, insulin dependent: Has associated chronic kidney disease stage IIIa based on my review of her records. Takes Tresiba at night and NovoLog during the day. Current blood sugars are elevated after receiving steroids and route. She did take her insulin last evening. A1c in May was 7.4. UA today with some glucosuria. Currently with hyperglycemia. - Lantus at bedtime with insulin aspartate before meals and at bedtime - Monitor sugars for adjustment to therapy with steroid administration (8) Dyslipidemia: Chronically on statin therapy - Continue home atorvastatin (9) Anemia: Normocytic anemia that I suspect is delusional in nature at this point in time. Review of prior labs shows that she often has evidence of anemia at presentation that normalizes after appropriate diuresis during hospital stay. No recent signs of bleeding reported. She is chronically on Plavix but not anticoagulation. - Recheck CBC in the morning Qualifiers: Anemia type: other cause Other causes of anemia: other cause, not classified Qualified Code(s): D64.89 - Other specified anemias (10) Leukocytosis: Review of records shows fairly persistent leukocytosis though she is usually in an acute situation when she presents. She has received steroids both at this time prior to presentation as well as most other visits. Difficult to ascertain significance of leukocytosis given this. Has a slight left shift but beyond skin findings noted below no evidence of other definitive infection. Chest x- ray read indicates cannot rule out pneumonia but does not describe increasing respiratory symptoms fever. Viral screening negative. Procalcitonin was normal. Elevated lactic acid noted which I think we can explain from degree of hypoxemia from acute respiratory distress. Initially tachycardic but without direct intervention beyond transferring to ER [facility] and allowing to rest, heart rate improved. Blood pressures have been stable. BUN and creatinine are lower than they had been at discharge last time. While she has some numerical measures to meet a potential diagnosis of sepsis, my clinical judgment is that she is not septic at this time as other cardiopulmonary factors could account for variables that might indicate such. She did receive a small fluid bolus in the emergency room due to the elevation in lactic acid as well as empiric antibiotics and blood culture collection. She did not receive a 30 cc/kg fluid bolus given acute CHF. - CBC can be rechecked in the outpatient setting when not presenting acutely or after having been on steroids to ensure normalization between acute episodes as per PCP discretion - Monitor for signs and symptoms that would suggest sepsis diagnosis due to infectious causes and adjust management accordingly Qualifiers: Leukocytosis type: unspecified Qualified Code(s): D72.829 - Elevated white blood cell count, unspecified (11) 2nd deg burn chest wall: Some boiling soup/Ramen she made last night has an area on each breast and 1 between the breast. Most significant is at the left breast. - Triple antibiotic ointment - Keep clean - Pain control - Avoid placing EKG and telemetry stickers directly over bagley as able Qualifiers: Encounter type: initial encounter Qualified Code(s): T21.21XA - Burn of second degree of chest wall, initial encounter (12) Cellulitis of great toe, left: From a toenail wound to the left great toe. Images noted above. Has some extension to the base of the great toe but not further up the foot at this time. - Received vancomycin and Zosyn in the emergency room as coverage for possibility of pneumonia - At this point will change to oral doxycycline - Monitor cellulitis for worsening both here and after discharge Plan Inpatient admission VTE prophylaxis: Lovenox and SCDs Antibiotics: s/p vancomycin and zosyn in ED x 1 dose; started on oral doxycycline and triple antibiotic ointment Pending studies: 6 hr troponin Telemetry: ordered due to history of paroxysmal atrial fibrillation and acute CHF Gurrola: placed in the ER due to acute CHF and known chronic kidney disease for close monitoring of urine output especially considering degree of respiratory distress upon presentation Line(s): peripheral IVs Disposition plan: Home with outpatient follow up anticipated. Has not been able to keep appointments with PCP or cardiology lately due to repeated acute events leading to acute hospitalization. Current goals of care are to get back home. Will need ongoing discussion about what goals we can meaningfully achieve for her with comorbidities. Will need clarification regarding Entresto versus Losartan on discharge paperwork once we are able to confirm if she has filled the Entresto prescription with pharmacy (I called [facility] but no answer; asked pharmacy to assist tomorrow) Code Status: Full Code Supportive care otherwise Findings, concerns and plans were discussed with patient and she was given an opportunity to ask questions 08/06/2024 Continue Lasix 60 IV daily Consult cardiology. Troponin elevated. Repeated this a.m. still in 300 range. Continue home to monitor at this time. Patient does not complain of any chest pain. Has had decent urine output in last 24 hours 2800. Continue therapeutic Lovenox. Continue triple antibiotic ointment for lesions on chest Consult podiatry for evaluation of left great toe. Patient may require debridement. Patient did get vancomycin and Zosyn as coverage for possibility of pneumonia in the ER which will cover for ulcer in the toe as well. Patient placed on doxycycline 100 twice daily. I will continue for now. Patient currently on nasal cannula. Continue to diurese and await recommendations from cardiology. Continue to monitor potassium Check BMP daily. Will check another lactic acid Echo from 07/18/2024 shows grossly RV function mildly reduced normal EF, mild hypokinesis of inferior lateral and anterolateral wall. 08/07/2024 3.4L neg since admission appreciate cardiology recommendations continue doxycycline 100 bid chest xray this am, shows infiltrates resolved continue lasix 60 IV daily, switch to oral in AM interdry sheets for breast folds, desenex powder NSTEMI: continue ranolazine and complete therapeutic lovenox for 48 hours if doing well by AM, consider dc home PDMP PDMP Reviewed: Not Reviewed Attestations 2 Medical Necessity Statement*: CHF exacerbation, NSTEMI Diagnoses Acute on chronic diastolic CHF (congestive heart failure) I50.33 Acute respiratory failure with hypoxia and hypercapnia J96.01; J96.02 Stage 3a chronic kidney disease N18.31 Chronic kidney disease stage: stage 3 (moderate) Chronic kidney disease stage 3 subtype: stage 3a (GFR 45-59) Coronary artery disease involving hamilton coronary artery of hamilton heart with other form of angina pectoris I25.118 Associated angina: with other forms of angina Coronary Disease-Associated Artery/Lesion type: [place] artery [place] vs. 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
[2024-08-07 13:35] LABS: Adenovirus Not Detected (NOT DETECT); Chlamydia Pneumoniae Not Detected (NOT DETECT); Coronavirus 229E,HKU1,NL63,OC4 Not Detected (NOT DETECT); Human Metapneumovirus Not Detected (NOT DETECT); Human Rhinovirus/Enterovirus Not Detected (NOT DETECT); Influenza A Not Detected (NOT DETECT); Influenza A H1 Not Detected (NOT DETECT); Influenza A H1-2009 Not Detected (NOT DETECT); Influenza A H3 Not Detected (NOT DETECT); Influenza B Not Detected (NOT DETECT); Mycoplasma Pneumoniae Not Detected (NOT DETECT); Parainfluenza Virus Type 1 Not Detected (NOT DETECT); Parainfluenza Virus Type 2 Not Detected (NOT DETECT); Parainfluenza Virus Type 3 Not Detected (NOT DETECT); Parainfluenza Virus Type 4 Not Detected (NOT DETECT); Respiratory Syncytial Virus A Not Detected (NOT DETECT); Respiratory Syncytial Virus B Not Detected (NOT DETECT); SARS-COV-2 Not Detected (NOT DETECT)
--- NOTE | 2024-08-07 14:00 | P.PN_ITS ---
Subjective 2 Subjective: The patient is feeling better. Patient is feeling better no chest pain. Shortness of breath is improving. No fever or chills. No cough. Medications: Medication Review Details: Current Medications Acetaminophen (Acetaminophen 325 Mg Tablet) 650 mg PO Q6H PRN PRN Reason: Mild Pain Or Temp >/ 101 Albuterol Sulfate (Albuterol 2.5 Mg/3 Ml Neb) 2.5 mg INHALATION Q6H.RESP PRN PRN Reason: shortness of breath or wheezing Last Admin: 08/07/24 13:25 Dose: 2.5 mg Amiodarone HCl (Amiodarone 200 Mg Tablet) 200 mg PO DAILY [facility] Last Admin: 08/07/24 10:05 Dose: 200 mg Aspirin (Aspirin 81 Mg Ec Tablet) 81 mg PO DAILY LI Last Admin: 08/07/24 10:06 Dose: 81 mg Atorvastatin Calcium (Atorvastatin 40 Mg Tablet) 40 mg PO QPM [facility] Last Admin: 08/06/24 17:25 Dose: 40 mg Bisacodyl (Bisacodyl 5 Mg Tablet) 10 mg PO DAILY PRN; Protocol PRN Reason: Constipation (see protocol) Budesonide (Budesonide 0.5 Mg/2 Ml Neb) 0.5 mg INHALATION BID.RESPIRATORY [facility] Last Admin: 08/07/24 08:25 Dose: 0.5 mg Clopidogrel Bisulfate (Clopidogrel 75 Mg Tablet) 75 mg PO BEDTIME LI Last Admin: 08/06/24 20:23 Dose: 75 mg Docusate Sodium (Docusate Sodium 100 Mg Capsule) 100 mg PO BID LI Last Admin: 08/07/24 10:05 Dose: 100 mg Doxycycline Monohydrate (Doxycycline 100 Mg Tablet) 100 mg PO BID LI; Protocol Last Admin: 08/07/24 10:06 Dose: 100 mg Enoxaparin Sodium (Enoxaparin 80 Mg/0.8 Ml Syringe) 70 mg SUBCUT Q12H LI Last Admin: 08/07/24 10:07 Dose: 70 mg Furosemide (Furosemide 10 Mg/Ml Sdv 10ml) 60 mg IVP Q24H LI Last Admin: 08/07/24 05:14 Dose: 60 mg Glucagon (Glucagon 1 Mg/Ml Kit 1 Ml) 1 mg IM ONCE PRN; Protocol PRN Reason: Adult Acute Hypoglycemia Nursing Prot. Dextrose (D5w) 500 mls @ 0 mls/hr IV ONCE PRN; Protocol PRN Reason: Adult Acute Hypoglycemia Prot Dextrose (D10w) 125 mls @ 750 mls/hr IV PRN PRN; Protocol PRN Reason: Adult Acute Hypoglycemia Nursing Protocol Dextrose (D10w) 250 mls @ 1,000 mls/hr IV PRN PRN; Protocol PRN Reason: Adult Acute Hypoglycemia Nursing Protocol Insulin Glargine (Insulin Glargine 100 Units/1 Ml) 20 unit SUBCUT BEDTIME [facility] Last Admin: 08/06/24 21:17 Dose: 20 unit Insulin Human Lispro (Insulin Lispro 100 Unit/1 Ml) 0 unit SUBCUT BEDTIME [facility]; Protocol Last Admin: 08/06/24 21:17 Dose: 4 unit Insulin Human Lispro (Insulin Lispro 100 Unit/1 Ml) 0 unit SUBCUT TIDWM [facility]; Protocol Last Admin: 08/07/24 12:23 Dose: Not Given Isosorbide Mononitrate (Isosorbide Mononitrate Er 60 Mg Tablet) 60 mg PO DAILY [facility] Last Admin: 08/07/24 10:06 Dose: 60 mg Metoprolol Tartrate (Metoprolol Tartrate 25 Mg Tablet) 12.5 mg PO BID@0900,2100 [facility] Last Admin: 08/07/24 10:07 Dose: 12.5 mg Neomycin/Polymyxin/Bacitracin (Psfxivxc-Wzaj-Dklaiqjkme Oint 28 Gm) 1 applic TOPICAL BID [facility] Last Admin: 08/07/24 10:09 Dose: 1 applic Nitroglycerin (Nitroglycerin 0.4 Mg Sublingual Tablet) 0.4 mg SUBLINGUAL Q5M PRN PRN Reason: Chest Pain Ondansetron HCl (Ondansetron 2 Mg/Ml Sdv 2 Ml) 4 mg IVP Q8H PRN PRN Reason: vomiting, or N/V if npo Potassium Chloride (Potassium Chloride Er 20 Meq Tablet) 20 meq PO DAILY [facility] Last Admin: 08/06/24 10:14 Dose: 20 meq Ranolazine (Ranolazine (12hr) 500 Mg Tablet) 1,000 mg PO BID [facility] Last Admin: 08/07/24 10:05 Dose: 1,000 mg Tramadol HCl (Tramadol 50 Mg Tablet) 50 mg PO Q6H PRN PRN Reason: MODERATE TO SEVERE PAIN Vitals/I&O/Wt Last Vital Signs Temp 98.6 F 08/07/24 12:00 Pulse 61 08/07/24 13:25 Resp 22 H 08/07/24 13:25 BP 111/57 08/07/24 12:00 Pulse Ox 94 08/07/24 13:25 O2 Del Method Nasal Cannula 08/07/24 13:25 O2 Flow Rate 2 08/07/24 13:25 FiO2 32 08/07/24 04:10 08/06/24 08/07/24 08/07/24 22:59 06:59 14:59 Intake Total 200 / 440 480 / 480 Output Total 1100 / 2100 1250 / 1250 Balance -900 / -1660 -770 / -770 Weight last 48 hrs Weight 159 lb 14.4 oz Weight 164 lb 4.8 oz Weight 164 lb 3.2 oz Physical Exam 2 Narrative: GENERAL: The patient is alert and oriented times three. Not in any acute distress. Somewhat tachypneic HEENT: Mild pallor. No icterus or lymphadenopathy.Oral cavity: There are no mucous membrane lesions. NECK: Trachea appears to be central. No masses noted. No JVD or thyromegaly appreciated. RESPIRATORY: Chest is symmetrical. No intercostals muscle retraction or any accessory muscle activation. There is no chest wall tenderness. Breath sounds are heard bilaterally. The intensity of breath sounds are diminished in the bases. Occasional expiratory wheezing.. No evidence of any consolidation. BREASTS: Deferred. HEART: The heart sounds are normal. No S3 or S4. Short systolic murmur in the lower sternal border. No diastolic murmurs. No pericardial rub ABDOMEN: No vessel pulsations or distention. No tenderness. No organomegaly appreciated. Bowel sounds are normally heard. : Deferred. RECTAL: Deferred. LYMPHATIC: No lymphadenopathy noted in the neck. EXTREMITIES: No edema or cyanosis. No clubbing. Peripheral pulses are palpable but weak bilaterally in the lower extremities MUSCULOSKELETAL: No acute joint deformities or swelling SKIN: There are no significant rashes or ecchymosis NEUROPSYCHIATRIC: Higher functions are grossly intact. No focal motor deficits noted. Urinary Catheter Management: Huff: Cath Placed During This Visit: yes Reason for Continuing Indwelling Catheter: Accurate Measurement of Urinary Output in Critically Ill Patients Urinary Catheter Date of Insertion: 08/05/24 Data 08/07/24 03:56 08/07/24 03:56 Other Labs: Laboratory Last Values WBC 17.02 10^3/uL (3.29-11.43) H 08/07/24 03:56 RBC 4.07 10^6/uL (3.85-5.65) 08/07/24 03:56 Hgb 10.30 g/dL (11.27-16.99) L 08/07/24 03:56 Hct 33.8 % (36-47) L 08/07/24 03:56 MCV 83.0 fl (85-98) L 08/07/24 03:56 MCH 25.3 pg (27-33) L 08/07/24 03:56 MCHC 30.5 g/dL (30-55) 08/07/24 03:56 RDW 15.2 % (12.1-15.1) H 08/07/24 03:56 Plt Count 226 10^3/cmm (157-399) 08/07/24 03:56 MPV 12.0 fL (7.4-10.4) H 08/07/24 03:56 Neut % (Auto) 86.5 % 08/07/24 03:56 Lymph % (Auto) 6.1 % 08/07/24 03:56 [place] % (Auto) 6.6 % 08/07/24 03:56 Eos % (Auto) 0.2 % 08/07/24 03:56 Baso % (Auto) 0.2 % 08/07/24 03:56 Neut # (Auto) 14.72 10^3/uL (1.8-7.7) H 08/07/24 03:56 Lymph # (Auto) 1.0 10^3/uL (0.8-4.8) 08/07/24 03:56 [place] # (Auto) 1.1 10^3/uL (0.2-0.9) H 08/07/24 03:56 Eos # (Auto) 0.0 10^3/uL (0.0-0.8) 08/07/24 03:56 Baso # (Auto) 0.0 10^3/uL (0.0-0.1) 08/07/24 03:56 Nucleated RBC % (auto) 0 % 08/07/24 03:56 Nucleated RBCs # 0.0 /100WBC 08/07/24 03:56 Specimen Type Arterial 08/05/24 12:05 Sample Site Radial, right 08/05/24 12:05 ABG pH 7.36 (7.35-7.45) 08/05/24 12:05 ABG pCO2 47.4 mmHg (35-45) H 08/05/24 12:05 ABG pO2 87.6 mmHg (80.0-100.0) 08/05/24 12:05 ABG PO2/FiO2 Ratio 199 08/05/24 12:05 ABG HCO3 26.6 mmol/L (22-26) H 08/05/24 12:05 ABG O2 Saturation 97.2 08/05/24 12:05 ABG Base Excess 0.7 mmol/L (-2.0-2.0) 08/05/24 12:05 Tanner Test Pos 08/05/24 12:05 A-a O2 Gradient 21.7 mmHg (5-10) H 08/05/24 12:05 Hematocrit 33.1 % (37-47) L 08/05/24 12:05 Hgb O2 Saturation 95.2 % (95-100) 08/05/24 12:05 Carboxyhemoglobin 0.9 %THgb (0.4-20.1) 08/05/24 12:05 Methemoglobin 1.1 % (0.4-1.5) 08/05/24 12:05 Total Hemoglobin 10.8 g/dL (12-16) L 08/05/24 12:05 Sodium 140.0 mmol/L (131-143) 08/05/24 12:05 Potassium 3.8 mmol/L (3.5-5.0) 08/05/24 12:05 Glucose 410.0 mg/dL (70-115) H 08/05/24 12:05 Ionized Calcium 1.2 mmol/L (1.1-1.4) 08/05/24 12:05 O2 Delivery Device Nc 08/05/24 12:05 O2 Liters/Min 6.0 % 08/05/24 12:05 FiO2 44.0 % 08/05/24 12:05 Press Operator Instant [employer] Shop ID Amh 08/05/24 12:05 Sodium 138 mmol/L (136-145) 08/07/24 03:56 Potassium 4.4 mmol/L (3.5-5.1) 08/07/24 03:56 Chloride 97 mmol/L (98-107) L 08/07/24 03:56 Carbon Dioxide 32 mmol/L (22-29) H 08/07/24 03:56 Anion Gap 13.4 (5-19) 08/07/24 03:56 BUN 41 mg/dL (8-23) H 08/07/24 03:56 Creatinine 1.3 mg/dL (0.5-0.9) H 08/07/24 03:56 GFR Calculation Not Reportable 08/07/24 03:56 Glucose 309 mg/dL (65-115) H 08/07/24 03:56 POC Glucose 108 mg/dL (70-110) 08/07/24 11:52 Calculated Osmolality 308 mOsm/kg (285-295) H 08/07/24 03:56 Lactic Acid 3.6 mmol/L (0.5-2.2) H 08/05/24 11:43 Lactic Acid (Sepsis) 5.5 mmol/L (0.5-2.2) H* 08/05/24 15:02 Lactate 3.3 mmol/L (0.5-2.2) H 08/06/24 03:30 Calcium 8.9 mg/dL (8.5-10.5) 08/07/24 03:56 Phosphorus 3.4 mg/dL (2.5-4.5) 08/06/24 03:30 Magnesium 2.1 mg/dL (1.7-2.3) 08/07/24 03:56 Total Bilirubin 0.3 mg/dL (0.15-1.2) 08/05/24 11:43 AST 14 U/L (0-32) 08/05/24 11:43 ALT 15 U/L (0-33) 08/05/24 11:43 Alkaline Phosphatase 95 U/L (35-105) 08/05/24 11:43 Creatine Kinase 39 U/L (26-192) 08/05/24 11:43 Troponin T 5th Gen ng/L 314 ng/L (0-10) H* 08/06/24 10:06 Troponin T Baseline 30 ng/L (0-10) H 08/05/24 11:43 Troponin T 120 Minute 28.58 ng/L (0-10) H 08/05/24 13:52 Delta Troponin T -1.42 ABS# (0-10) L 08/05/24 13:52 Troponin T Hi Sens 6Hr 66.90 ng/L (0-10) H 08/05/24 17:42 Troponin T Hi Sens 6Hr Delta 36.90 ng/L (0-12) H* 08/05/24 17:42 NT-Pro-B Natriuret Pep 8620 pg/mL (0-450) H 08/05/24 11:43 Total Protein 6.9 g/dL (6.6-8.7) 08/05/24 11:43 Albumin 4.1 g/dL (3.5-5.2) 08/05/24 11:43 Globulin 2.8 g/dL (1.3-4.6) 08/05/24 11:43 Procalcitonin 0.04 ng/mL (0-0.5) 08/05/24 11:43 Urine Color Yellow (Yellow) 08/05/24 15:23 Urine Appearance Clear (CLEAR) 08/05/24 15:23 Urine pH 5.0 (5-7) 08/05/24 15:23 Ur Specific [place] 1.022 (1.005-1.030) 08/05/24 15:23 Urine Protein Negative (Negative) 08/05/24 15:23 Urine Glucose (UA) 3+ (Normal) H 08/05/24 15:23 Urine Ketones Trace (Negative) 08/05/24 15:23 Urine Blood Negative (Negative) 08/05/24 15:23 Urine Nitrate Negative (Negative) 08/05/24 15:23 Urine Bilirubin Negative (Negative) 08/05/24 15:23 Urine Urobilinogen 0.2 mg/dL (Negative) 08/05/24 15:23 Ur Leukocyte Esterase Negative (Negative) 08/05/24 15:23 Urine RBC 0-2 /hpf (0-2) 08/05/24 15:23 Urine WBC 6-10 /hpf (0-5) 08/05/24 15:23 Ur Squamous Epith Cells 0-5 /hpf (0-5) 08/05/24 15:23 Amorphous Sediment Not Reportable 08/05/24 15:23 Urine Bacteria None seen /hpf (NONE) 08/05/24 15:23 Hyaline Casts 1.21 /lpf 08/05/24 15:23 Adenovirus (PCR) Not detected (NOT DETECT) 08/07/24 11:30 C. pneumoniae DNA (PCR) Not detected (NOT DETECT) 08/07/24 11:30 Coronavirus 229E (PCR) Not detected (NOT DETECT) 08/07/24 11:30 Human Metapneumovir PCR Not detected (NOT DETECT) 08/07/24 11:30 Influenza A (H1) PCR Not detected (NOT DETECT) 08/07/24 11:30 Influenza A (PCR) Negative (Negative) 08/05/24 11:56 Influ A (H1/09) PCR Not detected (NOT DETECT) 08/07/24 11:30 Influenza A (H3) PCR Not detected (NOT DETECT) 08/07/24 11:30 Influenza Type A (PCR) Not detected (NOT DETECT) 08/07/24 11:30 Influenza Type B (PCR) Not detected (NOT DETECT) 08/07/24 11:30 M. pneumoniae (PCR) Not detected (NOT DETECT) 08/07/24 11:30 Parainfluenza 1 (PCR) Not detected (NOT DETECT) 08/07/24 11:30 Parainfluenza 2 (PCR) Not detected (NOT DETECT) 08/07/24 11:30 Parainfluenza 3 (PCR) Not detected (NOT DETECT) 08/07/24 11:30 Parainfluenza 4 (PCR) Not detected (NOT DETECT) 08/07/24 11:30 RSV (PCR) Negative (Negative) 08/05/24 11:56 RSV Type A (PCR) Not detected (NOT DETECT) 08/07/24 11:30 RSV Type B (PCR) Not detected (NOT DETECT) 08/07/24 11:30 Entero/Rhino (PCR) Not detected (NOT DETECT) 08/07/24 11:30 SARS-CoV-2 (PCR) Not detected (NOT DETECT) 08/07/24 11:30 Micro: Microbiology 08/05/24 11:50 Blood Culture - Preliminary Blood NEGATIVE TO DATE 08/05/24 11:55 Blood Culture - Preliminary Blood NEGATIVE TO DATE A&P Assessment and plan (1) Acute non-ST elevation myocardial infarction (NSTEMI): Note patient seems to have upper extremity troponinT. Her clinical features are assisting in toy-KH-wjauxrard myocardial infarction. Hemodynamically she seems to be stable. Apparently she was having nonrevascularizable lesions. Progression of disease in the circumflex artery is a strong consideration. (2) Acute on chronic diastolic CHF (congestive heart failure): Patient is LV ejection fraction was around 50 to 55% by echocardiogram at the beginning of this month. There ischemia might be causing recurrent diastolic heart failure. Since the lesions are nonrevascularizable, optimizing the antianginal therapy would be appropriate. (3) Paroxysmal A-fib: Patient is on amiodarone. Patient apparently had a reaction to some antiarrhythmic drugs in the past. The details are not available. This may need to be looked into. (4) Dyslipidemia: May continue on the current medications (5) Essential (primary) hypertension: The blood pressure is under control. Continue on the current treatment. (6) Diabetes mellitus, type II, insulin dependent: Appropriate treatment of the diabetes, as per the primary (7) Chronic hypoxic respiratory failure, on home oxygen therapy: Continue on the current measures. The oxygenation seems to be improving. (8) CKD (chronic kidney disease): The BUN and creatinine seems to be stable. In view of the high BUN/creatinine, I may cut down the Ranexa to 500 BID Qualifiers: Chronic kidney disease stage: stage 3 (moderate) Chronic kidney disease stage 3 subtype: stage 3a (GFR 45-59) Qualified Code(s): N18.31 - Chronic kidney disease, stage 3a Plan May continue on the current treatment measures. Will try to get the medical records regarding her pulmonary toxicity? PDMP PDMP Reviewed: Not Reviewed Attestations 2 Medical Necessity Statement*: Deferred to the primary Coding Level of Care Code 13618 Diagnoses Acute non-ST elevation myocardial infarction (NSTEMI) I21.4 Acute on chronic diastolic CHF (congestive heart failure) I50.33 Paroxysmal A-fib I48.0 Dyslipidemia E78.5 Essential (primary) hypertension I10 Diabetes mellitus, type II, insulin dependent E11.9; Z79.4 Chronic hypoxic respiratory failure, on home oxygen therapy J96.11; Z99.81 Stage 3a chronic kidney disease N18.31 Chronic kidney disease stage: stage 3 (moderate) Chronic kidney disease stage 3 subtype: stage 3a (GFR 45-59)
[2024-08-07 16:40] LABS: Glucose Point of Care 294 mg/dL (70-110)
[2024-08-07] MEDS: TRAMadol 50 mg Tablet PO (17:20)
[2024-08-07] MEDS: atorvastatin 40 mg Tablet PO (17:21)
--- NOTE | 2024-08-07 20:11 | PC.NURSE ---
Patient IV found laying in the bed, IV cath intact. No bleeding or hematoma present at site. Patient is refusing new IV at this time. Notified Dr. Scott of patients refusal. Given order to change Furosemide to 40mg PO BID.
[2024-08-07 20:28] LABS: Glucose Point of Care 256 mg/dL (70-110)
[2024-08-07] MEDS: clopidogrel 75 mg Tablet PO (20:29)
[2024-08-07] MEDS: insulin glargine 100 units/1 mL 20 UNIT SUBCUT (21:10)
[2024-08-08] VITALS: BP 131/55; PULSE 55; RESP 16; TEMP 36.8; O2SAT 98
[2024-08-08 04:00] VITALS: BP 131/68; PULSE 55; RESP 18; TEMP 36.8; O2SAT 99
[2024-08-08 06:34] LABS: Glucose Point of Care 82 mg/dL (70-110)
[2024-08-08 07:19] VITALS: BP 133/64; PULSE 59; RESP 21; TEMP 36.7; O2SAT 98
--- NOTE | 2024-08-08 08:36 | P.DS_ITS ---
Discharge Providers Date of Admission: 08/05/24 15:07 Date of Discharge: August 08, 2024 Attending Provider at Admission: Luli Hart MD Attending Provider at Discharge: Kezia Scott MD Primary Care Provider: Antonio Delgado MD Diagnoses at Discharge Discharge Diagnosis (1) Acute non-ST elevation myocardial infarction (NSTEMI): Status: Acute (2) Acute on chronic diastolic CHF (congestive heart failure): Status: Acute (3) Paroxysmal A-fib: Status: Chronic (4) Dyslipidemia: Status: Chronic (5) Essential (primary) hypertension: Status: Chronic (6) Diabetes mellitus, type II, insulin dependent: Status: Chronic (7) Chronic hypoxic respiratory failure, on home oxygen therapy: Status: Chronic (8) CKD (chronic kidney disease): Status: Chronic Qualifiers: Chronic kidney disease stage: stage 3 (moderate) Chronic kidney disease stage 3 subtype: stage 3a (GFR 45-59) Qualified Code(s): N18.31 - Chronic kidney disease, stage 3a Reason for Visit Reason for Visit: SOB Brief History: Sally Henderson is a 84 year old female who presented to the emergency room with chief complaint of difficulty breathing. She says that she was doing okay yesterday not having any difficulty breathing. No reports of increasing cough or productive sputum. No fever. No nausea or vomiting. No chest pain. She did sustain a cut from her fingernail to her left great toe a few days ago and had noted some erythema to the toe. She had plan to see her primary care doctor today to have the toe evaluated. Because of this planned she skipped her Lasix yesterday as she did not want to be having to urinate with planned trip this morning. Last night she ate some Ramen noodles which she does not normally do. This morning after getting up and moving around a bit she became acutely very short of breath. She is normally on 2 L of oxygen by nasal cannula and does have breathing treatments at home but she was unable to catch her breath this morning. Her son ended up calling EMS. And route she was requiring 10 L of oxygen by nasal cannula to maintain adequate saturations and even with this was in significant distress. She received nebulizer treatments and high-dose steroids. On arrival to the emergency room she was transitioned to BiPAP therapy. Initial blood gas taken after treatment initiated by EMS and ER showed 7.3 //. Chest x-ray showed pulmonary edema. BNP was again elevated greater than 8000. There was some question of possible pneumonia for which she received empiric antibiotic coverage. She had elevation in lactic acid though blood pressure and heart rate were stable. Pneumonia could not be fully excluded on imaging and she did receive empiric antibiotic coverage. Given her presentation hospitalist were asked to admit for ongoing management. It should be noted that earlier this year patient had cardiopulmonary arrest requiring resuscitation and intubation. Earlier this month she also required intubation again due to respiratory distress upon arrival. She has known CHF, coronary artery disease that has been deemed for medical management, diabetes mellitus, chronic kidney disease and other comorbid medical conditions as noted below. In talking with Mrs. Henderson, who lives with her son, I learned that last night when she was eating Ramen she spilled the boiling water from the bowl onto her chest. She has open wounds that are painful above the left breast. Wounds above the right breast are also painful but without broken skin. She has not put anything on the bagley but was uncomfortable during sleep and today because of this. Hospital Course Hospital Course Patient was admitted for CHF exacerbation and diuresed. Patient was apparently on losartan and Entresto at home however after confirming with pharmacy it seems patient had stopped losartan and only taking Entresto. At time of discharge cardiology has stopped Entresto and put patient back on losartan. I discussed that with her as well. She also required BiPAP when she first came in. She may have had COPD and CHF exacerbation with CHF being favored more over COPD. She is back to her baseline oxygen. Infiltrates and chest x-ray have also cleared with diuresis. It seems that patient has persistent leukocytosis on her review of records. She does have second degree burn on chest wall for which she has been given triple antibiotic ointment. She did have elevated troponin in 300 range for which cardiology was consulted. Patient has had coronary angiogram in the past patient's lesions are nonvascularized able and therefore antianginal therapy was optimized. Ranolazine was increased to thousand twice daily. Discussed medication reconciliation with sifter operator in detail. Patient's family had concerns of patient's shortness of breath secondary to her medications however they are unsure which medication it may have been. We will provide patient with a pulmonology consultation at discharge for review of her pulmonary status. She has been chest pain-free the entire hospital admission and we will discharge her in stable condition at this time. Physical Exam Narrative: Patient is awake and alert. No conversational dyspnea noted Good bilateral air entry with mild rhonchi at bases. No crackles or wheezes appreciated. Normocephalic atraumatic, EOMI Normal S1-S2 Abdomen soft nontender Chest covered with Optifoam. Ulcer noted at base of left great toe. breast folds slightly erythematous Urinary Catheter Management: Huff: Cath Placed During This Visit: yes Reason for Continuing Indwelling Catheter: Acute Urinary Retention or Obstruction Urinary Catheter Date of Insertion: 08/05/24 Discharge Data Studies Completed and Pending Completed Studies During Hospitalization Category Date Time Status CXRP [XR chest 1V portable [id number]] Urgent Exams 08/07/24 08:21 Completed XR chest 1V portable [id number] Stat Exams 08/05/24 11:36 Completed Pending at discharge Category Date Time Status Basic Metabolic Panel AM LABS Lab 08/08/24 04:00 Ordered Blood Culture Stat Lab 08/05/24 11:55 Results Complete Blood Count w/Auto AM LABS Lab 08/08/24 04:00 Ordered Magnesium AM LABS Lab 08/08/24 04:00 Ordered Radiology Impressions Chest X-Ray 08/07/24 08:21 IMPRESSION: 1. Previously noted bilateral infiltrates have cleared since the prior study. 2. Cardiac enlargement unchanged. Laboratory Results WBC 17.02 10^3/uL (3.29-11.43) H 08/07/24 03:56 RBC 4.07 10^6/uL (3.85-5.65) 08/07/24 03:56 Hgb 10.30 g/dL (11.27-16.99) L 08/07/24 03:56 Hct 33.8 % (36-47) L 08/07/24 03:56 MCV 83.0 fl (85-98) L 08/07/24 03:56 MCH 25.3 pg (27-33) L 08/07/24 03:56 MCHC 30.5 g/dL (30-55) 08/07/24 03:56 RDW 15.2 % (12.1-15.1) H 08/07/24 03:56 Plt Count 226 10^3/cmm (157-399) 08/07/24 03:56 MPV 12.0 fL (7.4-10.4) H 08/07/24 03:56 Neut % (Auto) 86.5 % 08/07/24 03:56 Lymph % (Auto) 6.1 % 08/07/24 03:56 [place] % (Auto) 6.6 % 08/07/24 03:56 Eos % (Auto) 0.2 % 08/07/24 03:56 Baso % (Auto) 0.2 % 08/07/24 03:56 Neut # (Auto) 14.72 10^3/uL (1.8-7.7) H 08/07/24 03:56 Lymph # (Auto) 1.0 10^3/uL (0.8-4.8) 08/07/24 03:56 [place] # (Auto) 1.1 10^3/uL (0.2-0.9) H 08/07/24 03:56 Eos # (Auto) 0.0 10^3/uL (0.0-0.8) 08/07/24 03:56 Baso # (Auto) 0.0 10^3/uL (0.0-0.1) 08/07/24 03:56 Nucleated RBC % (auto) 0 % 08/07/24 03:56 Nucleated RBCs # 0.0 /100WBC 08/07/24 03:56 Specimen Type Arterial 08/05/24 12:05 Sample Site Radial, right 08/05/24 12:05 ABG pH 7.36 (7.35-7.45) 08/05/24 12:05 ABG pCO2 47.4 mmHg (35-45) H 08/05/24 12:05 ABG pO2 87.6 mmHg (80.0-100.0) 08/05/24 12:05 ABG PO2/FiO2 Ratio 199 08/05/24 12:05 ABG HCO3 26.6 mmol/L (22-26) H 08/05/24 12:05 ABG O2 Saturation 97.2 08/05/24 12:05 ABG Base Excess 0.7 mmol/L (-2.0-2.0) 08/05/24 12:05 Tanner Test Pos 08/05/24 12:05 A-a O2 Gradient 21.7 mmHg (5-10) H 08/05/24 12:05 Hematocrit 33.1 % (37-47) L 08/05/24 12:05 Hgb O2 Saturation 95.2 % (95-100) 08/05/24 12:05 Carboxyhemoglobin 0.9 %THgb (0.4-20.1) 08/05/24 12:05 Methemoglobin 1.1 % (0.4-1.5) 08/05/24 12:05 Total Hemoglobin 10.8 g/dL (12-16) L 08/05/24 12:05 Sodium 140.0 mmol/L (131-143) 08/05/24 12:05 Potassium 3.8 mmol/L (3.5-5.0) 08/05/24 12:05 Glucose 410.0 mg/dL (70-115) H 08/05/24 12:05 Ionized Calcium 1.2 mmol/L (1.1-1.4) 08/05/24 12:05 O2 Delivery Device Nc 08/05/24 12:05 O2 Liters/Min 6.0 % 08/05/24 12:05 FiO2 44.0 % 08/05/24 12:05 Garbage Collection Supervisor ID [id number] 08/05/24 12:05 Sodium 138 mmol/L (136-145) 08/07/24 03:56 Potassium 4.4 mmol/L (3.5-5.1) 08/07/24 03:56 Chloride 97 mmol/L (98-107) L 08/07/24 03:56 Carbon Dioxide 32 mmol/L (22-29) H 08/07/24 03:56 Anion Gap 13.4 (5-19) 08/07/24 03:56 BUN 41 mg/dL (8-23) H 08/07/24 03:56 Creatinine 1.3 mg/dL (0.5-0.9) H 08/07/24 03:56 GFR Calculation Not Reportable 08/07/24 03:56 Glucose 309 mg/dL (65-115) H 08/07/24 03:56 POC Glucose 82 mg/dL (70-110) 08/08/24 06:13 Calculated Osmolality 308 mOsm/kg (285-295) H 08/07/24 03:56 Lactic Acid 3.6 mmol/L (0.5-2.2) H 08/05/24 11:43 Lactic Acid (Sepsis) 5.5 mmol/L (0.5-2.2) H* 08/05/24 15:02 Lactate 3.3 mmol/L (0.5-2.2) H 08/06/24 03:30 Calcium 8.9 mg/dL (8.5-10.5) 08/07/24 03:56 Phosphorus 3.4 mg/dL (2.5-4.5) 08/06/24 03:30 Magnesium 2.1 mg/dL (1.7-2.3) 08/07/24 03:56 Total Bilirubin 0.3 mg/dL (0.15-1.2) 08/05/24 11:43 AST 14 U/L (0-32) 08/05/24 11:43 ALT 15 U/L (0-33) 08/05/24 11:43 Alkaline Phosphatase 95 U/L (35-105) 08/05/24 11:43 Creatine Kinase 39 U/L (26-192) 08/05/24 11:43 Troponin T 5th Gen ng/L 314 ng/L (0-10) H* 08/06/24 10:06 Troponin T Baseline 30 ng/L (0-10) H 08/05/24 11:43 Troponin T 120 Minute 28.58 ng/L (0-10) H 08/05/24 13:52 Delta Troponin T -1.42 ABS# (0-10) L 08/05/24 13:52 Troponin T Hi Sens 6Hr 66.90 ng/L (0-10) H 08/05/24 17:42 Troponin T Hi Sens 6Hr Delta 36.90 ng/L (0-12) H* 08/05/24 17:42 NT-Pro-B Natriuret Pep 8620 pg/mL (0-450) H 08/05/24 11:43 Total Protein 6.9 g/dL (6.6-8.7) 08/05/24 11:43 Albumin 4.1 g/dL (3.5-5.2) 08/05/24 11:43 Globulin 2.8 g/dL (1.3-4.6) 08/05/24 11:43 Procalcitonin 0.04 ng/mL (0-0.5) 08/05/24 11:43 Urine Color Yellow (Yellow) 08/05/24 15:23 Urine Appearance Clear (CLEAR) 08/05/24 15:23 Urine pH 5.0 (5-7) 08/05/24 15:23 Ur Specific Galt 1.022 (1.005-1.030) 08/05/24 15:23 Urine Protein Negative (Negative) 08/05/24 15:23 Urine Glucose (UA) 3+ (Normal) H 08/05/24 15:23 Urine Ketones Trace (Negative) 08/05/24 15:23 Urine Blood Negative (Negative) 08/05/24 15:23 Urine Nitrate Negative (Negative) 08/05/24 15:23 Urine Bilirubin Negative (Negative) 08/05/24 15:23 Urine Urobilinogen 0.2 mg/dL (Negative) 08/05/24 15:23 Ur Leukocyte Esterase Negative (Negative) 08/05/24 15:23 Urine RBC 0-2 /hpf (0-2) 08/05/24 15:23 Urine WBC 6-10 /hpf (0-5) 08/05/24 15:23 Ur Squamous Epith Cells 0-5 /hpf (0-5) 08/05/24 15:23 Amorphous Sediment Not Reportable 08/05/24 15:23 Urine Bacteria None seen /hpf (NONE) 08/05/24 15:23 Hyaline Casts 1.21 /lpf 08/05/24 15:23 Adenovirus (PCR) Not detected (NOT DETECT) 08/07/24 11:30 C. pneumoniae DNA (PCR) Not detected (NOT DETECT) 08/07/24 11:30 Coronavirus 229E (PCR) Not detected (NOT DETECT) 08/07/24 11:30 Human Metapneumovir PCR Not detected (NOT DETECT) 08/07/24 11:30 Influenza A (H1) PCR Not detected (NOT DETECT) 08/07/24 11:30 Influenza A (PCR) Negative (Negative) 08/05/24 11:56 Influ A (H1/09) PCR Not detected (NOT DETECT) 08/07/24 11:30 Influenza A (H3) PCR Not detected (NOT DETECT) 08/07/24 11:30 Influenza Type A (PCR) Not detected (NOT DETECT) 08/07/24 11:30 Influenza Type B (PCR) Not detected (NOT DETECT) 08/07/24 11:30 M. pneumoniae (PCR) Not detected (NOT DETECT) 08/07/24 11:30 Parainfluenza 1 (PCR) Not detected (NOT DETECT) 08/07/24 11:30 Parainfluenza 2 (PCR) Not detected (NOT DETECT) 08/07/24 11:30 Parainfluenza 3 (PCR) Not detected (NOT DETECT) 08/07/24 11:30 Parainfluenza 4 (PCR) Not detected (NOT DETECT) 08/07/24 11:30 RSV (PCR) Negative (Negative) 08/05/24 11:56 RSV Type A (PCR) Not detected (NOT DETECT) 08/07/24 11:30 RSV Type B (PCR) Not detected (NOT DETECT) 08/07/24 11:30 Entero/Rhino (PCR) Not detected (NOT DETECT) 08/07/24 11:30 SARS-CoV-2 (PCR) Not detected (NOT DETECT) 08/07/24 11:30 Vitals Last Vital Signs Temp 98.0 F 08/08/24 07:19 Pulse 59 L 08/08/24 07:19 Resp 21 H 08/08/24 07:19 BP 133/64 08/08/24 07:19 Pulse Ox 98 08/08/24 07:19 O2 Del Method Nasal Cannula 08/08/24 07:19 O2 Flow Rate 2 08/07/24 21:20 FiO2 32 08/07/24 04:10 Discharge Plan Discharge Patient Disposition: Home Health Service Condition: Stable Prescriptions: New Triple Antibiotic 3.5mg-400 unit- 5,000 unit/gram Ointment 1 applic topical BID Qty: 30 0RF aspirin 81 mg Tablet,Delayed Release (Dr/Ec) 81 mg PO DAILY Qty: 30 0RF doxycycline monohydrate 100 mg Tablet 100 mg PO BID Qty: 8 0RF metoprolol tartrate 25 mg Tablet 12.5 mg PO BID@0900,2100 Qty: 60 0RF Continued clopidogrel 75 mg tablet 75 mg PO BEDTIME Qty: 90 3RF nitroglycerin 0.4 mg tablet, sublingual 0.4 mg buccal PRN PRN (Reason: Chest Pain) furosemide 40 mg tablet 40 mg PO BID@0800,1400 30 Days Qty: 60 0RF isosorbide mononitrate 60 mg tablet extended release 24 hr 60 mg PO DAILY insulin aspart U-100 [Novolog FlexPen U-100 Insulin] 100 unit/mL (3 mL) insulin pen See Rx Instructions .ROUTE .COMPLEX Qty: 15 0RF Rx Instructions: Inject 3 times daily, subcut, after meals, based on sliding scale provided insulin degludec [Tresiba FlexTouch U-200] 200 unit/mL (3 mL) insulin pen 20 unit SUBCUT DAILY Qty: 9 0RF losartan 25 mg tablet 25 mg PO DAILY Qty: 30 0RF atorvastatin 40 mg tablet 40 mg PO QPM amiodarone 200 mg tablet 200 mg PO DAILY tramadol 50 mg tablet 50 mg PO Q6H PRN (Reason: Pain) (DME) nebulizer and compressor [EDC248 Nebulizer] Device See Rx Instructions .Route Qty: 1 0RF Rx Instructions: As directed albuterol sulfate 2.5 mg /3 mL (0.083 %) solution for nebulization 2.5 mg inhalation TID PRN (Reason: shortness of breath or wheezing) 30 Days Qty: 90 0RF budesonide-formoterol [Symbicort] 80-4.5 mcg/actuation HFA aerosol inhaler 1 inh inhalation BID Qty: 10.2 0RF Changed potassium chloride 20 mEq tablet,ER particles/crystals 10 meq PO DAILY Qty: 30 0RF ranolazine 500 mg tablet extended release 12 hr 1,000 mg PO BID Qty: 120 0RF Held Entresto 24-26 mg tablet 1 tab PO BID Qty: 60 1RF Hold Instructions: as per cardiology Discharge Orders: Discharge Order (Routine); Ordered 08/08/24 Ordered By: Kezia Scott Referrals: [facility] Pulmonology [Outside] - 4-7 days Syl Castanon FNP [Nurse Practitioner] - 08/22/24 3:30 pm Antonio Delgado MD [Primary Care Provider] - 08/13/24 1:15 pm Discharge Diet: Cardiac Discharge Activity: Resume usual activity and As per PT/OT instructions Patient Instructions: CHF Stoplight, Chest Pain Stoplight, Opioid Safety Discharge Attestations Time Spent in Discharge Care*: greater than 30 min Status at Discharge: Cognitive status at discharge: cognitively intact , Behavioral status at discharge: cooperative , Quality Metrics Clinical Quality Measures [ No reported AMI, CVA or VTE this stay] Coding Level of Care Code 49452 Diagnoses Acute non-ST elevation myocardial infarction (NSTEMI) I21.4 Acute on chronic diastolic CHF (congestive heart failure) I50.33 Paroxysmal A-fib I48.0 Dyslipidemia E78.5 Essential (primary) hypertension I10 Diabetes mellitus, type II, insulin dependent E11.9; Z79.4 Chronic hypoxic respiratory failure, on home oxygen therapy J96.11; Z99.81 Stage 3a chronic kidney disease N18.31 Chronic kidney disease stage: stage 3 (moderate) Chronic kidney disease stage 3 subtype: stage 3a (GFR 45-59)
--- NOTE | 2024-08-08 08:39 | P.PN_ITS ---
Subjective 2 Subjective: Patient has significant improvement of the shortness of breath. No chest pain or palpitations. No fever or chills. No cough. She is wanting to go home. Medications: Medication Review Details: Current Medications Acetaminophen (Acetaminophen 325 Mg Tablet) 650 mg PO Q6H PRN PRN Reason: Mild Pain Or Temp >/ 101 Albuterol Sulfate (Albuterol 2.5 Mg/3 Ml Neb) 2.5 mg INHALATION Q6H.RESP PRN PRN Reason: shortness of breath or wheezing Last Admin: 08/07/24 13:25 Dose: 2.5 mg Amiodarone HCl (Amiodarone 200 Mg Tablet) 200 mg PO DAILY [facility] Last Admin: 08/07/24 10:05 Dose: 200 mg Aspirin (Aspirin 81 Mg Ec Tablet) 81 mg PO DAILY LI Last Admin: 08/07/24 10:06 Dose: 81 mg Atorvastatin Calcium (Atorvastatin 40 Mg Tablet) 40 mg PO QPM [facility] Last Admin: 08/07/24 17:21 Dose: 40 mg Bisacodyl (Bisacodyl 5 Mg Tablet) 10 mg PO DAILY PRN; Protocol PRN Reason: Constipation (see protocol) Budesonide (Budesonide 0.5 Mg/2 Ml Neb) 0.5 mg INHALATION BID.RESPIRATORY [facility] Last Admin: 08/07/24 21:25 Dose: 0.5 mg Clopidogrel Bisulfate (Clopidogrel 75 Mg Tablet) 75 mg PO BEDTIME LI Last Admin: 08/07/24 20:29 Dose: 75 mg Docusate Sodium (Docusate Sodium 100 Mg Capsule) 100 mg PO BID [facility] Last Admin: 08/07/24 17:21 Dose: 100 mg Doxycycline Monohydrate (Doxycycline 100 Mg Tablet) 100 mg PO BID LI; Protocol Last Admin: 08/07/24 17:22 Dose: 100 mg Furosemide (Furosemide 40 Mg Tablet) 40 mg PO BID@08,16 [facility] Glucagon (Glucagon 1 Mg/Ml Kit 1 Ml) 1 mg IM ONCE PRN; Protocol PRN Reason: Adult Acute Hypoglycemia Nursing Prot. Dextrose (D5w) 500 mls @ 0 mls/hr IV ONCE PRN; Protocol PRN Reason: Adult Acute Hypoglycemia Prot Dextrose (D10w) 125 mls @ 750 mls/hr IV PRN PRN; Protocol PRN Reason: Adult Acute Hypoglycemia Nursing Protocol Dextrose (D10w) 250 mls @ 1,000 mls/hr IV PRN PRN; Protocol PRN Reason: Adult Acute Hypoglycemia Nursing Protocol Insulin Glargine (Insulin Glargine 100 Units/1 Ml) 20 unit SUBCUT BEDTIME [facility] Last Admin: 08/07/24 21:10 Dose: 20 unit Insulin Human Lispro (Insulin Lispro 100 Unit/1 Ml) 0 unit SUBCUT BEDTIME [facility]; Protocol Last Admin: 08/07/24 21:11 Dose: 4 unit Insulin Human Lispro (Insulin Lispro 100 Unit/1 Ml) 0 unit SUBCUT TIDWM [facility]; Protocol Last Admin: 08/07/24 17:21 Dose: 10 unit Isosorbide Mononitrate (Isosorbide Mononitrate Er 60 Mg Tablet) 60 mg PO DAILY [facility] Last Admin: 08/07/24 10:06 Dose: 60 mg Metoprolol Tartrate (Metoprolol Tartrate 25 Mg Tablet) 12.5 mg PO BID@0900,2100 [facility] Last Admin: 08/07/24 21:14 Dose: Not Given Neomycin/Polymyxin/Bacitracin (Wlyjylkk-Kblj-Wkkwbdnfrc Oint 28 Gm) 1 applic TOPICAL BID [facility] Last Admin: 08/07/24 17:22 Dose: 1 applic Nitroglycerin (Nitroglycerin 0.4 Mg Sublingual Tablet) 0.4 mg SUBLINGUAL Q5M PRN PRN Reason: Chest Pain Ondansetron HCl (Ondansetron 2 Mg/Ml Sdv 2 Ml) 4 mg IVP Q8H PRN PRN Reason: vomiting, or N/V if npo Potassium Chloride (Potassium Chloride Er 20 Meq Tablet) 20 meq PO DAILY [facility] Last Admin: 08/06/24 10:14 Dose: 20 meq Ranolazine (Ranolazine (12hr) 500 Mg Tablet) 500 mg PO BID [facility] Tramadol HCl (Tramadol 50 Mg Tablet) 50 mg PO Q6H PRN PRN Reason: MODERATE TO SEVERE PAIN Last Admin: 08/07/24 17:20 Dose: 50 mg Vitals/I&O/Wt Last Vital Signs Temp 98.0 F 08/08/24 07:19 Pulse 59 L 08/08/24 07:19 Resp 21 H 08/08/24 07:19 BP 133/64 08/08/24 07:19 Pulse Ox 98 08/08/24 07:19 O2 Del Method Nasal Cannula 08/08/24 07:19 O2 Flow Rate 2 08/07/24 21:20 FiO2 32 08/07/24 04:10 08/07/24 08/08/24 08/08/24 22:59 06:59 14:59 Intake Total 120 / 600 Output Total 400 / 1650 Balance 120 / -650 -400 / -1050 Weight last 48 hrs Weight 159 lb Weight 159 lb 14.4 oz Physical Exam 2 Narrative: GENERAL: The patient is alert and oriented times three. Not in any acute distress. Somewhat tachypneic HEENT: Mild pallor. No icterus or lymphadenopathy.Oral cavity: There are no mucous membrane lesions. NECK: Trachea appears to be central. No masses noted. No JVD or thyromegaly appreciated. RESPIRATORY: Chest is symmetrical. No intercostals muscle retraction or any accessory muscle activation. There is no chest wall tenderness. Breath sounds are heard bilaterally. The intensity of breath sounds are diminished in the bases. Occasional expiratory wheezing.. No evidence of any consolidation. BREASTS: Deferred. HEART: The heart sounds are normal. No S3 or S4. Short systolic murmur in the lower sternal border. No diastolic murmurs. No pericardial rub ABDOMEN: No vessel pulsations or distention. No tenderness. No organomegaly appreciated. Bowel sounds are normally heard. : Deferred. RECTAL: Deferred. LYMPHATIC: No lymphadenopathy noted in the neck. EXTREMITIES: No edema or cyanosis. No clubbing. Peripheral pulses are palpable but weak bilaterally in the lower extremities MUSCULOSKELETAL: No acute joint deformities or swelling SKIN: There are no significant rashes or ecchymosis NEUROPSYCHIATRIC: Higher functions are grossly intact. No focal motor deficits noted. Urinary Catheter Management: Huff: Cath Placed During This Visit: yes Reason for Continuing Indwelling Catheter: Acute Urinary Retention or Obstruction Urinary Catheter Date of Insertion: 08/05/24 Data 08/07/24 03:56 08/07/24 03:56 Other Labs: Laboratory Last Values WBC 17.02 10^3/uL (3.29-11.43) H 08/07/24 03:56 RBC 4.07 10^6/uL (3.85-5.65) 08/07/24 03:56 Hgb 10.30 g/dL (11.27-16.99) L 08/07/24 03:56 Hct 33.8 % (36-47) L 08/07/24 03:56 MCV 83.0 fl (85-98) L 08/07/24 03:56 MCH 25.3 pg (27-33) L 08/07/24 03:56 MCHC 30.5 g/dL (30-55) 08/07/24 03:56 RDW 15.2 % (12.1-15.1) H 08/07/24 03:56 Plt Count 226 10^3/cmm (157-399) 08/07/24 03:56 MPV 12.0 fL (7.4-10.4) H 08/07/24 03:56 Neut % (Auto) 86.5 % 08/07/24 03:56 Lymph % (Auto) 6.1 % 08/07/24 03:56 [place] % (Auto) 6.6 % 08/07/24 03:56 Eos % (Auto) 0.2 % 08/07/24 03:56 Baso % (Auto) 0.2 % 08/07/24 03:56 Neut # (Auto) 14.72 10^3/uL (1.8-7.7) H 08/07/24 03:56 Lymph # (Auto) 1.0 10^3/uL (0.8-4.8) 08/07/24 03:56 [place] # (Auto) 1.1 10^3/uL (0.2-0.9) H 08/07/24 03:56 Eos # (Auto) 0.0 10^3/uL (0.0-0.8) 08/07/24 03:56 Baso # (Auto) 0.0 10^3/uL (0.0-0.1) 08/07/24 03:56 Nucleated RBC % (auto) 0 % 08/07/24 03:56 Nucleated RBCs # 0.0 /100WBC 08/07/24 03:56 Specimen Type Arterial 08/05/24 12:05 Sample Site Radial, right 08/05/24 12:05 ABG pH 7.36 (7.35-7.45) 08/05/24 12:05 ABG pCO2 47.4 mmHg (35-45) H 08/05/24 12:05 ABG pO2 87.6 mmHg (80.0-100.0) 08/05/24 12:05 ABG PO2/FiO2 Ratio 199 08/05/24 12:05 ABG HCO3 26.6 mmol/L (22-26) H 08/05/24 12:05 ABG O2 Saturation 97.2 08/05/24 12:05 ABG Base Excess 0.7 mmol/L (-2.0-2.0) 08/05/24 12:05 Tanner Test Pos 08/05/24 12:05 A-a O2 Gradient 21.7 mmHg (5-10) H 08/05/24 12:05 Hematocrit 33.1 % (37-47) L 08/05/24 12:05 Hgb O2 Saturation 95.2 % (95-100) 08/05/24 12:05 Carboxyhemoglobin 0.9 %THgb (0.4-20.1) 08/05/24 12:05 Methemoglobin 1.1 % (0.4-1.5) 08/05/24 12:05 Total Hemoglobin 10.8 g/dL (12-16) L 08/05/24 12:05 Sodium 140.0 mmol/L (131-143) 08/05/24 12:05 Potassium 3.8 mmol/L (3.5-5.0) 08/05/24 12:05 Glucose 410.0 mg/dL (70-115) H 08/05/24 12:05 Ionized Calcium 1.2 mmol/L (1.1-1.4) 08/05/24 12:05 O2 Delivery Device Nc 08/05/24 12:05 O2 Liters/Min 6.0 % 08/05/24 12:05 FiO2 44.0 % 08/05/24 12:05 Bass String Winder ID Amh 08/05/24 12:05 Sodium 138 mmol/L (136-145) 08/07/24 03:56 Potassium 4.4 mmol/L (3.5-5.1) 08/07/24 03:56 Chloride 97 mmol/L (98-107) L 08/07/24 03:56 Carbon Dioxide 32 mmol/L (22-29) H 08/07/24 03:56 Anion Gap 13.4 (5-19) 08/07/24 03:56 BUN 41 mg/dL (8-23) H 08/07/24 03:56 Creatinine 1.3 mg/dL (0.5-0.9) H 08/07/24 03:56 GFR Calculation Not Reportable 08/07/24 03:56 Glucose 309 mg/dL (65-115) H 08/07/24 03:56 POC Glucose 82 mg/dL (70-110) 08/08/24 06:13 Calculated Osmolality 308 mOsm/kg (285-295) H 08/07/24 03:56 Lactic Acid 3.6 mmol/L (0.5-2.2) H 08/05/24 11:43 Lactic Acid (Sepsis) 5.5 mmol/L (0.5-2.2) H* 08/05/24 15:02 Lactate 3.3 mmol/L (0.5-2.2) H 08/06/24 03:30 Calcium 8.9 mg/dL (8.5-10.5) 08/07/24 03:56 Phosphorus 3.4 mg/dL (2.5-4.5) 08/06/24 03:30 Magnesium 2.1 mg/dL (1.7-2.3) 08/07/24 03:56 Total Bilirubin 0.3 mg/dL (0.15-1.2) 08/05/24 11:43 AST 14 U/L (0-32) 08/05/24 11:43 ALT 15 U/L (0-33) 08/05/24 11:43 Alkaline Phosphatase 95 U/L (35-105) 08/05/24 11:43 Creatine Kinase 39 U/L (26-192) 08/05/24 11:43 Troponin T 5th Gen ng/L 314 ng/L (0-10) H* 08/06/24 10:06 Troponin T Baseline 30 ng/L (0-10) H 08/05/24 11:43 Troponin T 120 Minute 28.58 ng/L (0-10) H 08/05/24 13:52 Delta Troponin T -1.42 ABS# (0-10) L 08/05/24 13:52 Troponin T Hi Sens 6Hr 66.90 ng/L (0-10) H 08/05/24 17:42 Troponin T Hi Sens 6Hr Delta 36.90 ng/L (0-12) H* 08/05/24 17:42 NT-Pro-B Natriuret Pep 8620 pg/mL (0-450) H 08/05/24 11:43 Total Protein 6.9 g/dL (6.6-8.7) 08/05/24 11:43 Albumin 4.1 g/dL (3.5-5.2) 08/05/24 11:43 Globulin 2.8 g/dL (1.3-4.6) 08/05/24 11:43 Procalcitonin 0.04 ng/mL (0-0.5) 08/05/24 11:43 Urine Color Yellow (Yellow) 08/05/24 15:23 Urine Appearance Clear (CLEAR) 08/05/24 15:23 Urine pH 5.0 (5-7) 08/05/24 15:23 Ur Specific [place] 1.022 (1.005-1.030) 08/05/24 15:23 Urine Protein Negative (Negative) 08/05/24 15:23 Urine Glucose (UA) 3+ (Normal) H 08/05/24 15:23 Urine Ketones Trace (Negative) 08/05/24 15:23 Urine Blood Negative (Negative) 08/05/24 15:23 Urine Nitrate Negative (Negative) 08/05/24 15:23 Urine Bilirubin Negative (Negative) 08/05/24 15:23 Urine Urobilinogen 0.2 mg/dL (Negative) 08/05/24 15:23 Ur Leukocyte Esterase Negative (Negative) 08/05/24 15:23 Urine RBC 0-2 /hpf (0-2) 08/05/24 15:23 Urine WBC 6-10 /hpf (0-5) 08/05/24 15:23 Ur Squamous Epith Cells 0-5 /hpf (0-5) 08/05/24 15:23 Amorphous Sediment Not Reportable 08/05/24 15:23 Urine Bacteria None seen /hpf (NONE) 08/05/24 15:23 Hyaline Casts 1.21 /lpf 08/05/24 15:23 Adenovirus (PCR) Not detected (NOT DETECT) 08/07/24 11:30 C. pneumoniae DNA (PCR) Not detected (NOT DETECT) 08/07/24 11:30 Coronavirus 229E (PCR) Not detected (NOT DETECT) 08/07/24 11:30 Human Metapneumovir PCR Not detected (NOT DETECT) 08/07/24 11:30 Influenza A (H1) PCR Not detected (NOT DETECT) 08/07/24 11:30 Influenza A (PCR) Negative (Negative) 08/05/24 11:56 Influ A (H1/09) PCR Not detected (NOT DETECT) 08/07/24 11:30 Influenza A (H3) PCR Not detected (NOT DETECT) 08/07/24 11:30 Influenza Type A (PCR) Not detected (NOT DETECT) 08/07/24 11:30 Influenza Type B (PCR) Not detected (NOT DETECT) 08/07/24 11:30 M. pneumoniae (PCR) Not detected (NOT DETECT) 08/07/24 11:30 Parainfluenza 1 (PCR) Not detected (NOT DETECT) 08/07/24 11:30 Parainfluenza 2 (PCR) Not detected (NOT DETECT) 08/07/24 11:30 Parainfluenza 3 (PCR) Not detected (NOT DETECT) 08/07/24 11:30 Parainfluenza 4 (PCR) Not detected (NOT DETECT) 08/07/24 11:30 RSV (PCR) Negative (Negative) 08/05/24 11:56 RSV Type A (PCR) Not detected (NOT DETECT) 08/07/24 11:30 RSV Type B (PCR) Not detected (NOT DETECT) 08/07/24 11:30 Entero/Rhino (PCR) Not detected (NOT DETECT) 08/07/24 11:30 SARS-CoV-2 (PCR) Not detected (NOT DETECT) 08/07/24 11:30 A&P Assessment and plan (1) Acute non-ST elevation myocardial infarction (NSTEMI): Note patient seems to have upper extremity troponinT. Her clinical features are assisting in fun-VD-[id number] myocardial infarction. Hemodynamically she seems to be stable. Apparently she was having nonrevascularizable lesions. Progression of disease in the circumflex artery is a strong consideration. PCI was attempted at the [facility] and also at the [facility] in [place]. Apparently it was unsuccessful. So at this point, we may continue on the medical treatment. (2) Acute on chronic diastolic CHF (congestive heart failure): Patient is LV ejection fraction was around 50 to 55% by echocardiogram at the beginning of this month. the heart failure is fairly compensated at this time. Patient may continue on the current treatment. (3) Paroxysmal A-fib: Patient is on amiodarone. Patient apparently had a reaction to some antiarrhythmic drugs in the past. The details are not available. This may need to be looked into. I could not find any documentation of amiodarone causing any pulmonary toxicity. According the patient, she has been taking this medication for a while. according to patient, she is feeling okay with the medication. so she may continue it. (4) Dyslipidemia: May continue on the current medications (5) Essential (primary) hypertension: The blood pressure is under control. Continue on the current treatment. (6) Diabetes mellitus, type II, insulin dependent: The blood sugar seems to be fairly under control. May continue on the current management. (7) Chronic hypoxic respiratory failure, on home oxygen therapy: Continue on the current measures. The oxygenation is appropriate and stable (8) CKD (chronic kidney disease): The BUN and creatinine seems to be stable. In view of the high BUN/creatinine, I may cut down the Ranexa to 500 BID Qualifiers: Chronic kidney disease stage: stage 3 (moderate) Chronic kidney disease stage 3 subtype: stage 3a (GFR 45-59) Qualified Code(s): N18.31 - Chronic kidney disease, stage 3a Plan May continue on the current treatment measures. discussed with Dr. Scott. If she continues to remain stable, may be discharged home today. [facility]up [facility] next week with a nurse practitioner. follow-up with Dr. Jaramillo in a month PDMP PDMP Reviewed: Not Reviewed Attestations 2 Medical Necessity Statement*: Defer to the primary Coding Level of Care Code 26835 Diagnoses Acute non-ST elevation myocardial infarction (NSTEMI) I21.4 Acute on chronic diastolic CHF (congestive heart failure) I50.33 Paroxysmal A-fib I48.0 Dyslipidemia E78.5 Essential (primary) hypertension I10 Diabetes mellitus, type II, insulin dependent E11.9; Z79.4 Chronic hypoxic respiratory failure, on home oxygen therapy J96.11; Z99.81 Stage 3a chronic kidney disease N18.31 Chronic kidney disease stage: stage 3 (moderate) Chronic kidney disease stage 3 subtype: stage 3a (GFR 45-59)
[2024-08-08] MEDS: albuterol 2.5 mg/3 mL Neb INHALATION (09:16)
[2024-08-08 09:17] VITALS: PULSE 55; RESP 20; O2SAT 97
[2024-08-08] MEDS: budesonide 0.5 mg/2 mL Neb INHALATION (09:17)
[2024-08-08] MEDS: ranolazine (12HR) 500 mg Tablet PO (09:28)
[2024-08-08] MEDS: doxycycline 100 mg Tablet PO (09:28)
[2024-08-08] MEDS: aspirin 81 mg EC Tablet PO (09:29)
[2024-08-08] MEDS: metoprolol tartrate 25 mg Tablet 12.5 MG PO (09:29)
[2024-08-08] MEDS: FUROsemide 40 mg Tablet PO (09:29)
[2024-08-08] MEDS: isosorbide mononitrate ER 60 mg Tablet PO (09:29)
[2024-08-08] MEDS: amiodarone 200 mg Tablet PO (09:29)
[2024-08-08] MEDS: neomycin-poly-bacitracin oint 28 gm 1 APPLIC TOPICAL (09:35)
[2024-08-08 11:13] VITALS: BP 118/64; PULSE 68; RESP 16; TEMP 36.2; O2SAT 99
[2024-08-08 11:51] LABS: Glucose Point of Care 216 mg/dL (70-110)
== END 2024-08-08 12:30 | disposition home health service (06) | DRG 280 ==
LOC: ER 13:37 → CSU 15:09
PROVIDERS: Admitting Provider Hospitalist; Emergency Provider Family Medicine; PCP Family Medicine; Visit Provider Internal Medicine
DX: I13.0 Hypertensive heart and chronic kidney disease with heart failure and stage 1 through stage 4 chronic kidney disease, or unspecified chronic kidney disease (principal); I50.33 Acute on chronic diastolic (congestive) heart failure; I21.4 Non-ST elevation (NSTEMI) myocardial infarction; J96.22 Acute and chronic respiratory failure with hypercapnia; J96.21 Acute and chronic respiratory failure with hypoxia; J18.9 Pneumonia, unspecified organism; E87.20 Acidosis, unspecified; N17.9 Acute kidney failure, unspecified; N18.31 Chronic kidney disease, stage 3a; E11.22 Type 2 diabetes mellitus with diabetic chronic kidney disease; E11.65 Type 2 diabetes mellitus with hyperglycemia; Z79.02 Long term (current) use of antithrombotics/antiplatelets; Z79.82 Long term (current) use of aspirin; Z79.4 Long term (current) use of insulin; I48.0 Paroxysmal atrial fibrillation; E78.5 Hyperlipidemia, unspecified; Z99.81 Dependence on supplemental oxygen; T21.21XA Burn of second degree of chest wall, initial encounter; X12.XXXA Contact with other hot fluids, initial encounter; J43.1 Panlobular emphysema; I25.2 Old myocardial infarction; S91.132A Puncture wound without foreign body of left great toe without damage to nail, initial encounter; L03.032 Cellulitis of left toe; W55.03XA Scratched by cat, initial encounter; Z87.891 Personal history of nicotine dependence; Z87.01 Personal history of pneumonia (recurrent); R00.0 Tachycardia, unspecified; D63.1 Anemia in chronic kidney disease; T50.1X6A Underdosing of loop [high-ceiling] diuretics, initial encounter; Z91.128 Patient's intentional underdosing of medication regimen for other reason; I25.10 Atherosclerotic heart disease of native coronary artery without angina pectoris; Z95.1 Presence of aortocoronary bypass graft
CPT/HCPCS: 36415; 36416; 36600; 51702; 71045; 80048; 80051; 80053; 81001; 82330; 82550; 82805; 82962; 83605; 83735; 83880; 84100; 84145; 84484; 85025; 87040; 87486; 87581; 87633; 87637; 93005; 94640; 94660; 96365; 96372; 96375; 97116; 97161; 97530; 99291; J1650; J1815; J1940; J2270; J2543; J3370; J7050; J7613; J7626; J9999

== ENCOUNTER 2024-08-24 02:08 | Inpatient (IN) | payer MEDICARE, SELFPAY ==
[2024-08-24] VITALS (22 sets, daily range): BP systolic 105–145; BP diastolic 52–75; PULSE 59–88; RESP 12–38; TEMP 36.6–36.7; O2SAT 91–100; BMI 36.3; BMI 34.0
--- NOTE | 2024-08-24 02:14 | ECG_ITS ---
[employer] Test Date: 2024-08-24 Pat Name: Sally Henderson Department: Room: 111 Gender: Female Pediatric Cns: : [id number] Requested By: Cristian Hadley Order Number: [id number] Leonora MD: Angela Lopez M.D. Measurements Intervals [place] Rate: 62 P: 44 DE: 164 QRS: -25 QRSD: 112 T: 195 QT: 488 QTc: 496 Interpretive Statements SINUS RHYTHM POSSIBLE LEFT ATRIAL ENLARGEMENT [-0.1mV P-WAVE IN V1/V2] BORDERLINE LEFT AXIS DEVIATION [QRS AXIS < -20] MODERATE INTRAVENTRICULAR CONDUCTION DELAY [110+ ms QRS DURATION] ST DEVIATION AND MODERATE T-WAVE ABNORMALITY, CONSIDER ANTEROLATERAL ISCHEMIA [-0.1+ mV T-WAVE IN V3-V6] ST DEVIATION AND MODERATE T-WAVE ABNORMALITY, CONSIDER INFERIOR ISCHEMIA [-0.1+ mV T-WAVE IN II/aVF] Compared to ECG 08/24/2024 02:19:18 Intraventricular conduction delay now present.T-wave abnormality now present Possible ischemia now present. Myocardial infarct finding no longer present Electronically Signed On 08-24-2024 12:59:41 CDT by Angela Lopez M.D. [email or web address]
--- NOTE | 2024-08-24 02:14 | XRR_ITS ---
PROCEDURE INFORMATION: Exam: XR Chest Exam date and time: 08/24/2024 3:03 AM Age: 84 years old Clinical indication: Dyspnea and shortness of breath; Prior surgery; Surgery date: 6+ months; Surgery type: Cabg; EMS arrival for resp distress. History of chf. ; Additional info: Respiratory distress TECHNIQUE: Imaging protocol: Radiologic exam of the chest. Views: 1 view. COMPARISON: CR XR chest 1V portable [id number] 08/07/2024 7:49 AM FINDINGS: Lungs: There is indistinctness of the pulmonary vasculature and increased hazy and linear opacities present the mid and lower jayme thoraces, findings that may represent pulmonary edema. Pleural spaces: Unremarkable. No pleural effusion. No pneumothorax. Heart/Mediastinum: Cardiac silhouette is at the upper limits. Bones/joints: Multiple left rib fractures are again seen. XR/XR chest 1V portable [id number] IMPRESSION: Mild prominence of the cardiac silhouette, indistinctness of pulmonary vasculature and increased hazy and linear opacities in the mid lower jayme thoraces, findings suggesting pulmonary edema.
--- NOTE | 2024-08-24 02:32 | W.ED.SOB ---
Documented by User: Cristian Hadley DO 08/24/24 05:55 HPI - SOB/Dyspnea General: Chief Complaint: Shortness of Breath/Dyspnea Stated Complaint: RESP. DISTRESS Time Seen by Provider: 08/24/24 02:14 History of Present Illness: HPI Narrative: Patient presents to the ER via [facility] on a mask at 8 L with O2 sat 97%. Taking very small very quick breaths. She is wheezing and retracting. This is after 3 DuoNeb 3 albuterol and 2 nitros in the ambulance. Patient said this come on very quickly suddenly out of the blue she denies any coughs colds fevers chills etc. Patient does have a history of CHF and heart disease and severe COPD and has been had to been intubated several times in the past because of this. The last time being within about the last month. Related Data Home Medications ?Medication ?Instructions ?Recorded ?Confirmed nitroglycerin 0.4 mg sublingual 0.4 mg buccal PRN PRN Chest Pain 04/10/24 08/05/24 tablet isosorbide mononitrate 60 mg 60 mg PO DAILY 06/07/24 08/05/24 tablet,extended release 24 hr amiodarone 200 mg tablet 200 mg PO DAILY 07/18/24 08/05/24 atorvastatin 40 mg tablet 40 mg PO QPM 07/18/24 08/05/24 tramadol 50 mg tablet 50 mg PO Q6H PRN Pain 07/18/24 08/05/24 Previous Rx's ?Medication ?Instructions ?Recorded clopidogrel 75 mg tablet 75 mg PO BEDTIME #90 tabs 03/27/24 furosemide 40 mg tablet 40 mg PO BID@0800,1400 30 days #60 05/28/24 tabs insulin aspart U-100 100 unit/mL See Rx Instructions .Route 06/11/24 (3 mL) subcutaneous pen (Novolog .COMPLEX #15 mL FlexPen U-100 Insulin aspart) insulin degludec 200 unit/mL (3 20 unit (0.1 mL) SUBCUT DAILY #9 mL 06/11/24 mL) subcutaneous pen (Tresiba FlexTouch U-200 insulin) budesonide-formoterol HFA 80 1 inh inhalation BID #10.2 grams 07/23/24 mcg-4.5 mcg/actuation aerosol inhaler (Symbicort) nebulizer and compressor ([id number] #1 ea 07/23/24 Nebulizer) sacubitril 24 mg-valsartan 26 mg 1 tab PO BID #60 tabs 07/25/24 tablet (Entresto) Held on 08/08/24. Instructions: as per cardiology aspirin 81 mg tablet,delayed 81 mg PO DAILY #30 tabs 08/07/24 release doxycycline monohydrate 100 mg 100 mg PO BID #8 tabs 08/07/24 tablet metoprolol tartrate 25 mg tablet 12.5 mg (1/2 x 25 mg) PO 08/07/24 BID@0900,2100 #60 tabs neomycin-bacitracn Zn-polymyx 3.5 1 applic topical BID #30 grams 08/07/24 mg-400 unit-5,000 unit/gram top oint (Triple Antibiotic) potassium chloride 20 mEq 10 meq (1/2 x 20 mEq) PO DAILY #30 08/07/24 tablet,extended release(part/cryst) tabs ranolazine 500 mg tablet,extended 1,000 mg (2 x 500 mg) PO BID #120 08/07/24 release,12 hr tabs losartan 25 mg tablet 25 mg PO DAILY #30 tabs 08/08/24 Allergies Allergy/AdvReac Type Severity Reaction Status Date / Time No Known Allergies Allergy Verified 07/18/24 06:33 Review of Systems General: Reports: 10 or more systems reviewed and unremarkable except in HPI and below PFSH ED PFSH: Medical History Dyslipidemia Essential (primary) hypertension COPD (chronic obstructive pulmonary disease) Chronic hypoxic respiratory failure, on home oxygen therapy Diabetes mellitus, type II, insulin dependent CAD (coronary artery disease) Paroxysmal A-fib CKD (chronic kidney disease) CHF (congestive heart failure) Respiratory arrest has required intubation Non-STEMI (non-ST elevated myocardial infarction) Contrast-induced nephropathy Surgical History Hx of hysterectomy Hx of CABG Family History Unknown No problems noted. Social History Smoking and tobacco/nicotine status: former use of tobacco/nicotine Alcohol intake: never Substance/Drug Use: never Physical Exam Const: COMMON NORMALS: average body habitus, healthy appearing, alert and well nourished HENMT: COMMON NORMALS: normocephalic, atraumatic, hearing grossly normal bilaterally, external ears normal, Normal external nose present, moist oral mucous membranes and oropharynx normal HEAD & SCALP: normocephalic and atraumatic NOSE: Normal external nose present EXTERNAL EAR: Yes external ears normal Neck/C-Spine: COMMON NORMALS: no JVD Chest: COMMONS NORMALS: normal inspection of the chest and normal palpation of entire chest wall Resp: OTHER: Severely decreased breath sounds bilaterally left worse than right, tachypneic Cardio: COMMON NORMALS: no JVD, regular rate, regular rhythm, S1 normal heart sound present, S2 normal heart sound present, No gallops present (Cardio), No clicks present (Cardio), No murmurs present (Cardio) and No rub (Cardio) RATE: regular rate RHYTHM: regular rhythm HEART SOUNDS: S1 normal heart sound present and S2 normal heart sound present GI: COMMON NORMALS: Normal to inspection, nondistended, normoactive bowel sounds present, Soft to palpation, non-tender, No hepatosplenomegaly present and no masses PALPATION: Yes Soft to palpation and Yes No hepatosplenomegaly present Extremity: NARRATIVE EXTREMITY EXAM: Trace to 1+ pitting edema bilateral lower extremity Neuro: SENSORIUM/ORIENTATION: Yes alert Course Vital Signs: Vital signs: Vital Signs Pulse Rate 60 08/24/24 07:32 Respiratory Rate 19 H 08/24/24 07:32 Blood Pressure 145/71 08/24/24 07:32 Pulse Oximetry 98 08/24/24 07:32 Oxygen Delivery Me thod BiPAP 08/24/24 07:32 Oxygen Flow Rate 3 08/24/24 06:33 Fraction of Inspir ed Oxygen 36 08/24/24 07:31 MDM - SOB/Dyspnea Medical Records I reviewed the patient's medical records. Lab Data I reviewed the patient's lab results. 08/24/24 04:12 08/24/24 04:12 Labs/Radiology: Radiology Impressions Chest X-Ray 08/24/24 02:14 IMPRESSION: Mild prominence of the cardiac silhouette, indistinctness of pulmonary vasculature and increased hazy and linear opacities in the mid lower jayme thoraces, findings suggesting pulmonary edema. Foot X-Ray 08/24/24 05:21 IMPRESSION: There are no acute osseous findings. Chest CTA 08/24/24 05:29 IMPRESSION: 1. There is no evidence for pulmonary emboli. 2. There is mild prominence of the pulmonary vasculature, hazy and linear opacities present in the lower jayme thoraces, findings could represent pulmonary edema. 3. Patchy consolidation is seen in the posterior costophrenic recess and some strandy opacities are seen superimposed over hemidiaphragms. These findings could represent atelectasis although basilar infiltrates pneumonia can not be entirely excluded. Laboratory Results WBC 12.70 10^3/uL (3.29-11.43) H 08/24/24 04:12 RBC 3.65 10^6/uL (3.85-5.65) L 08/24/24 04:12 Hgb 9.30 g/dL (11.27-16.99) L 08/24/24 04:12 Hct 30.7 % (36-47) L 08/24/24 04:12 MCV 84.1 fl (85-98) L 08/24/24 04:12 MCH 25.5 pg (27-33) L 08/24/24 04:12 MCHC 30.3 g/dL (30-55) 08/24/24 04:12 RDW 15.0 % (12.1-15.1) 08/24/24 04:12 Plt Count 308 10^3/cmm (157-399) 08/24/24 04:12 MPV 11.8 fL (7.4-10.4) H 08/24/24 04:12 Neut % (Auto) 89.5 % 08/24/24 04:12 Lymph % (Auto) 3.6 % 08/24/24 04:12 [place] % (Auto) 6.0 % 08/24/24 04:12 Eos % (Auto) 0.2 % 08/24/24 04:12 Baso % (Auto) 0.1 % 08/24/24 04:12 Neut # (Auto) 11.37 10^3/uL (1.8-7.7) H 08/24/24 04:12 Lymph # (Auto) 0.5 10^3/uL (0.8-4.8) L 08/24/24 04:12 [place] # (Auto) 0.8 10^3/uL (0.2-0.9) 08/24/24 04:12 Eos # (Auto) 0.0 10^3/uL (0.0-0.8) 08/24/24 04:12 Baso # (Auto) 0.0 10^3/uL (0.0-0.1) 08/24/24 04:12 Nucleated RBC % (auto) 0 % 08/24/24 04:12 Nucleated RBCs # 0.0 /100WBC 08/24/24 04:12 ESR 17 mm/hr (0-15) H 08/24/24 04:12 PT 13.90 SECONDS (12.1-14.9) 08/24/24 04:12 INR 1.00 (0.8-1.2) 08/24/24 04:12 D-Dimer 0.68 ug/mLFEU (0-0.59) H 08/24/24 04:12 Specimen Type Arterial 08/24/24 02:52 Sample Site Brachial, right 08/24/24 02:52 ABG pH 7.33 (7.35-7.45) L 08/24/24 02:52 ABG pCO2 57.0 mmHg (35-45) H 08/24/24 02:52 ABG pO2 137.0 mmHg (80.0-100.0) H 08/24/24 02:52 ABG PO2/FiO2 Ratio 274 08/24/24 02:52 ABG HCO3 30.2 mmol/L (22-26) H 08/24/24 02:52 ABG O2 Saturation 99.2 08/24/24 02:52 ABG Base Excess 3.3 mmol/L (-2.0-2.0) H 08/24/24 02:52 Tanner Test Pos 08/24/24 02:52 A-a O2 Gradient 19.7 mmHg (5-10) H 08/24/24 02:52 Hematocrit 31.0 % (37-47) L 08/24/24 02:52 Hgb O2 Saturation 97.2 % (95-100) 08/24/24 02:52 Carboxyhemoglobin 0.9 %THgb (0.4-20.1) 08/24/24 02:52 Methemoglobin 1.1 % (0.4-1.5) 08/24/24 02:52 Total Hemoglobin 10.1 g/dL (12-16) L 08/24/24 02:52 Sodium 139.0 mmol/L (131-143) 08/24/24 02:52 Potassium 4.2 mmol/L (3.5-5.0) 08/24/24 02:52 Glucose 419.0 mg/dL (70-115) H 08/24/24 02:52 Ionized Calcium 1.2 mmol/L (1.1-1.4) 08/24/24 02:52 O2 Delivery Device Bipap 08/24/24 02:52 FiO2 50.0 % 08/24/24 02:52 PEEP 12.0 cmH20 08/24/24 02:52 Worldwide Chief Creative Officer ID [email or web address] 08/24/24 02:52 Sodium 140 mmol/L (136-145) 08/24/24 04:12 Potassium 4.7 mmol/L (3.5-5.1) 08/24/24 04:12 Chloride 100 mmol/L (98-107) 08/24/24 04:12 Carbon Dioxide 28 mmol/L (22-29) 08/24/24 04:12 Anion Gap 16.7 (5-19) 08/24/24 04:12 BUN 48 mg/dL (8-23) H 08/24/24 04:12 Creatinine 1.1 mg/dL (0.5-0.9) H 08/24/24 04:12 GFR Calculation Not Reportable 08/24/24 04:12 Glucose 388 mg/dL (65-115) H 08/24/24 04:12 Calculated Osmolality 319 mOsm/kg (285-295) H 08/24/24 04:12 Lactic Acid 2.8 mmol/L (0.5-2.2) H 08/24/24 04:12 Lactic Acid (Sepsis) 2.7 mmol/L (0.5-2.2) H 08/24/24 06:08 Calcium 8.6 mg/dL (8.5-10.5) 08/24/24 04:12 Magnesium 2.3 mg/dL (1.7-2.3) 08/24/24 04:12 Total Bilirubin 0.2 mg/dL (0.15-1.2) 08/24/24 04:12 AST 50 U/L (0-32) H 08/24/24 04:12 ALT 33 U/L (0-33) 08/24/24 04:12 Alkaline Phosphatase 121 U/L (35-105) H 08/24/24 04:12 Troponin T Baseline 38 ng/L (0-10) H 08/24/24 04:12 Troponin T 120 Minute 34.56 ng/L (0-10) H 08/24/24 06:08 Delta Troponin T -3.44 ABS# (0-10) L 08/24/24 06:08 C-Reactive Protein 13.2 mg/L (0.0-4.9) H 08/24/24 04:12 NT-Pro-B Natriuret Pep 64596 pg/mL (0-450) H 08/24/24 04:12 Total Protein 6.3 g/dL (6.6-8.7) L 08/24/24 04:12 Albumin 3.6 g/dL (3.5-5.2) 08/24/24 04:12 Globulin 2.7 g/dL (1.3-4.6) 08/24/24 04:12 Procalcitonin 0.02 ng/mL (0-0.5) 08/24/24 04:12 Amorphous Sediment Not Reportable 08/24/24 07:47 Influenza A (PCR) Negative (Negative) 08/24/24 04:17 Influenza Type B (PCR) Negative (Negative) 08/24/24 04:17 RSV (PCR) Negative (Negative) 08/24/24 04:17 SARS-CoV-2 (PCR) Negative (Negative) 08/24/24 04:17 All radiology interpretation(s) finalized by discharge Discharge Plan Discharge Patient Disposition: Admitted As Inpatient Clinical Impression: Congestive heart failure, Acute hypoxemic respiratory failure, Hypercapnic respiratory failure Condition: Stable Coding Level of Care Code ED Aquatics Director for Chg Fwd Documented by User: Linnette Thurman MD 08/24/24 08:00 HPI - SOB/Dyspnea General: Chief Complaint: Shortness of Breath/Dyspnea Stated Complaint: RESP. DISTRESS Time Seen by Provider: 08/24/24 02:14 Related Data Home Medications ?Medication ?Instructions ?Recorded ?Confirmed nitroglycerin 0.4 mg sublingual 0.4 mg buccal PRN PRN Chest Pain 04/10/24 08/05/24 tablet isosorbide mononitrate 60 mg 60 mg PO DAILY 06/07/24 08/05/24 tablet,extended release 24 hr amiodarone 200 mg tablet 200 mg PO DAILY 07/18/24 08/05/24 atorvastatin 40 mg tablet 40 mg PO QPM 07/18/24 08/05/24 tramadol 50 mg tablet 50 mg PO Q6H PRN Pain 07/18/24 08/05/24 Previous Rx's ?Medication ?Instructions ?Recorded clopidogrel 75 mg tablet 75 mg PO BEDTIME #90 tabs 03/27/24 furosemide 40 mg tablet 40 mg PO BID@0800,1400 30 days #60 05/28/24 tabs insulin aspart U-100 100 unit/mL See Rx Instructions .Route 06/11/24 (3 mL) subcutaneous pen (Novolog .COMPLEX #15 mL FlexPen U-100 Insulin aspart) insulin degludec 200 unit/mL (3 20 unit (0.1 mL) SUBCUT DAILY #9 mL 06/11/24 mL) subcutaneous pen (Tresiba FlexTouch U-200 insulin) budesonide-formoterol HFA 80 1 inh inhalation BID #10.2 grams 07/23/24 mcg-4.5 mcg/actuation aerosol inhaler (Symbicort) nebulizer and compressor ([id number] #1 ea 07/23/24 Nebulizer) sacubitril 24 mg-valsartan 26 mg 1 tab PO BID #60 tabs 07/25/24 tablet (Entresto) Held on 08/08/24. Instructions: as per cardiology aspirin 81 mg tablet,delayed 81 mg PO DAILY #30 tabs 08/07/24 release doxycycline monohydrate 100 mg 100 mg PO BID #8 tabs 08/07/24 tablet metoprolol tartrate 25 mg tablet 12.5 mg (1/2 x 25 mg) PO 08/07/24 BID@0900,2100 #60 tabs neomycin-bacitracn Zn-polymyx 3.5 1 applic topical BID #30 grams 08/07/24 mg-400 unit-5,000 unit/gram top oint (Triple Antibiotic) potassium chloride 20 mEq 10 meq (1/2 x 20 mEq) PO DAILY #30 08/07/24 tablet,extended release(part/cryst) tabs ranolazine 500 mg tablet,extended 1,000 mg (2 x 500 mg) PO BID #120 08/07/24 release,12 hr tabs losartan 25 mg tablet 25 mg PO DAILY #30 tabs 08/08/24 Allergies Allergy/AdvReac Type Severity Reaction Status Date / Time No Known Allergies Allergy Verified 07/18/24 06:33 [facility] ED PFS: Medical History Dyslipidemia Essential (primary) hypertension COPD (chronic obstructive pulmonary disease) Chronic hypoxic respiratory failure, on home oxygen therapy Diabetes mellitus, type II, insulin dependent CAD (coronary artery disease) Paroxysmal A-fib CKD (chronic kidney disease) CHF (congestive heart failure) Respiratory arrest has required intubation Non-STEMI (non-ST elevated myocardial infarction) Contrast-induced nephropathy Surgical History Hx of hysterectomy Hx of CABG Family History Unknown No problems noted. Social History Smoking and tobacco/nicotine status: former use of tobacco/nicotine Alcohol intake: never Substance/Drug Use: never Course Vital Signs: Vital signs: Vital Signs Pulse Rate 60 08/24/24 07:32 Respiratory Rate 19 H 08/24/24 07:32 Blood Pressure 145/71 08/24/24 07:32 Pulse Oximetry 98 08/24/24 07:32 Oxygen Delivery Md thod BiPAP 08/24/24 07:32 Oxygen Flow Rate 3 08/24/24 06:33 Fraction of Inspir ed Oxygen 36 08/24/24 07:31 MDM - SOB/Dyspnea Medical Decision Making Patient care transitioned me at shift change awaiting CTA results. CTA of the chest shows no pulmonary emboli. Although does have evidence of pulmonary edema and congestive heart failure. This was reviewed and interpreted by myself the emergency room physician. I also reviewed the radiology report. Reexamination: I went back to see the patient and she was lying flat in bed. Apparently she had improved earlier and was taken off BiPAP. However whenever I came to see her she had increased work of breathing. I sat her up and breathing improved somewhat, however she was still working so I placed her back on a BiPAP and she is being admitted. I also ordered IV Lasix. Consultation: I spoke with Dr. Scott who is on-call for the hospitalist service who agrees to admission. Assessment and plan: Congestive heart failure Hypoxemia Respiratory failure ?BiPAP, IV Lasix -I discussed the patient with the hospitalist on-call who is admitting the patient. - Discussed findings and plan with patient. Answered any questions. - All laboratory values were reviewed and interpreted personally by myself, the ER physician - All imaging was reviewed and interpreted personally by myself, the ER physician. - Evaluation and treatment of this problem were appropriate in the emergency setting Lab Data 08/24/24 04:12 08/24/24 04:12 Labs/Radiology: Radiology Impressions Chest X-Ray 08/24/24 02:14 IMPRESSION: Mild prominence of the cardiac silhouette, indistinctness of pulmonary vasculature and increased hazy and linear opacities in the mid lower jayme thoraces, findings suggesting pulmonary edema. Foot X-Ray 08/24/24 05:21 IMPRESSION: There are no acute osseous findings. Chest CTA 08/24/24 05:29 IMPRESSION: 1. There is no evidence for pulmonary emboli. 2. There is mild prominence of the pulmonary vasculature, hazy and linear opacities present in the lower jayme thoraces, findings could represent pulmonary edema. 3. Patchy consolidation is seen in the posterior costophrenic recess and some strandy opacities are seen superimposed over hemidiaphragms. These findings could represent atelectasis although basilar infiltrates pneumonia can not be entirely excluded. Laboratory Results WBC 12.70 10^3/uL (3.29-11.43) H 08/24/24 04:12 RBC 3.65 10^6/uL (3.85-5.65) L 08/24/24 04:12 Hgb 9.30 g/dL (11.27-16.99) L 08/24/24 04:12 Hct 30.7 % (36-47) L 08/24/24 04:12 MCV 84.1 fl (85-98) L 08/24/24 04:12 MCH 25.5 pg (27-33) L 08/24/24 04:12 MCHC 30.3 g/dL (30-55) 08/24/24 04:12 RDW 15.0 % (12.1-15.1) 08/24/24 04:12 Plt Count 308 10^3/cmm (157-399) 08/24/24 04:12 MPV 11.8 fL (7.4-10.4) H 08/24/24 04:12 Neut % (Auto) 89.5 % 08/24/24 04:12 Lymph % (Auto) 3.6 % 08/24/24 04:12 [place] % (Auto) 6.0 % 08/24/24 04:12 Eos % (Auto) 0.2 % 08/24/24 04:12 Baso % (Auto) 0.1 % 08/24/24 04:12 Neut # (Auto) 11.37 10^3/uL (1.8-7.7) H 08/24/24 04:12 Lymph # (Auto) 0.5 10^3/uL (0.8-4.8) L 08/24/24 04:12 [place] # (Auto) 0.8 10^3/uL (0.2-0.9) 08/24/24 04:12 Eos # (Auto) 0.0 10^3/uL (0.0-0.8) 08/24/24 04:12 Baso # (Auto) 0.0 10^3/uL (0.0-0.1) 08/24/24 04:12 Nucleated RBC % (auto) 0 % 08/24/24 04:12 Nucleated RBCs # 0.0 /100WBC 08/24/24 04:12 ESR 17 mm/hr (0-15) H 08/24/24 04:12 PT 13.90 SECONDS (12.1-14.9) 08/24/24 04:12 INR 1.00 (0.8-1.2) 08/24/24 04:12 D-Dimer 0.68 ug/mLFEU (0-0.59) H 08/24/24 04:12 Specimen Type Arterial 08/24/24 02:52 Sample Site Brachial, right 08/24/24 02:52 ABG pH 7.33 (7.35-7.45) L 08/24/24 02:52 ABG pCO2 57.0 mmHg (35-45) H 08/24/24 02:52 ABG pO2 137.0 mmHg (80.0-100.0) H 08/24/24 02:52 ABG PO2/FiO2 Ratio 274 08/24/24 02:52 ABG HCO3 30.2 mmol/L (22-26) H 08/24/24 02:52 ABG O2 Saturation 99.2 08/24/24 02:52 ABG Base Excess 3.3 mmol/L (-2.0-2.0) H 08/24/24 02:52 Tanner Test Pos 08/24/24 02:52 A-a O2 Gradient 19.7 mmHg (5-10) H 08/24/24 02:52 Hematocrit 31.0 % (37-47) L 08/24/24 02:52 Hgb O2 Saturation 97.2 % (95-100) 08/24/24 02:52 Carboxyhemoglobin 0.9 %THgb (0.4-20.1) 08/24/24 02:52 Methemoglobin 1.1 % (0.4-1.5) 08/24/24 02:52 Total Hemoglobin 10.1 g/dL (12-16) L 08/24/24 02:52 Sodium 139.0 mmol/L (131-143) 08/24/24 02:52 Potassium 4.2 mmol/L (3.5-5.0) 08/24/24 02:52 Glucose 419.0 mg/dL (70-115) H 08/24/24 02:52 Ionized Calcium 1.2 mmol/L (1.1-1.4) 08/24/24 02:52 O2 Delivery Device Bipap 08/24/24 02:52 FiO2 50.0 % 08/24/24 02:52 PEEP 12.0 cmH20 08/24/24 02:52 Worldwide Chief Creative Officer ID [email or web address] 08/24/24 02:52 Sodium 140 mmol/L (136-145) 08/24/24 04:12 Potassium 4.7 mmol/L (3.5-5.1) 08/24/24 04:12 Chloride 100 mmol/L (98-107) 08/24/24 04:12 Carbon Dioxide 28 mmol/L (22-29) 08/24/24 04:12 Anion Gap 16.7 (5-19) 08/24/24 04:12 BUN 48 mg/dL (8-23) H 08/24/24 04:12 Creatinine 1.1 mg/dL (0.5-0.9) H 08/24/24 04:12 GFR Calculation Not Reportable 08/24/24 04:12 Glucose 388 mg/dL (65-115) H 08/24/24 04:12 Calculated Osmolality 319 mOsm/kg (285-295) H 08/24/24 04:12 Lactic Acid 2.8 mmol/L (0.5-2.2) H 08/24/24 04:12 Lactic Acid (Sepsis) 2.7 mmol/L (0.5-2.2) H 08/24/24 06:08 Calcium 8.6 mg/dL (8.5-10.5) 08/24/24 04:12 Magnesium 2.3 mg/dL (1.7-2.3) 08/24/24 04:12 Total Bilirubin 0.2 mg/dL (0.15-1.2) 08/24/24 04:12 AST 50 U/L (0-32) H 08/24/24 04:12 ALT 33 U/L (0-33) 08/24/24 04:12 Alkaline Phosphatase 121 U/L (35-105) H 08/24/24 04:12 Troponin T Baseline 38 ng/L (0-10) H 08/24/24 04:12 Troponin T 120 Minute 34.56 ng/L (0-10) H 08/24/24 06:08 Delta Troponin T -3.44 ABS# (0-10) L 08/24/24 06:08 C-Reactive Protein 13.2 mg/L (0.0-4.9) H 08/24/24 04:12 NT-Pro-B Natriuret Pep 37391 pg/mL (0-450) H 08/24/24 04:12 Total Protein 6.3 g/dL (6.6-8.7) L 08/24/24 04:12 Albumin 3.6 g/dL (3.5-5.2) 08/24/24 04:12 Globulin 2.7 g/dL (1.3-4.6) 08/24/24 04:12 Procalcitonin 0.02 ng/mL (0-0.5) 08/24/24 04:12 Amorphous Sediment Not Reportable 08/24/24 07:47 Influenza A (PCR) Negative (Negative) 08/24/24 04:17 Influenza Type B (PCR) Negative (Negative) 08/24/24 04:17 RSV (PCR) Negative (Negative) 08/24/24 04:17 SARS-CoV-2 (PCR) Negative (Negative) 08/24/24 04:17 Discharge Plan Discharge Patient Disposition: Admitted As Inpatient Clinical Impression: Congestive heart failure, Acute hypoxemic respiratory failure, Hypercapnic respiratory failure Condition: Stable Coding Level of Care Code ED Aquatics Director for Akosua Vasquez
[2024-08-24] MEDS: methylPREDNISolone sod succ 125 mg/2 mL INJ IVP (02:34)
[2024-08-24 03:05] LABS: ABG PH Result 7.33 (7.35-7.45); Alveolar-Arterial Oxygen Gradi 19.7 mmHg (5-10); Base Excess ABG 3.3 mmol/L (-2.0-2.0); Blood Gas Allen Test Pos; Blood Gas Operator Identificat gerca; Blood Gas Sample Site Brachial, right; Blood Gas Sample Type Arterial; Carboxyhemoglobin 0.9 %THgb (0.4-20.1); HCO3 ABG 30.2 mmol/L (22-26); HGB O2 Sat 97.2 % (95-100); Ionized Calcium Level - ABG 1.2 mmol/L (1.1-1.4); Methemoglobin 1.1 % (0.4-1.5); Oxygen Device BIPAP; Oxygen Saturation ABG 99.2; PO2 FiO2 Ratio Arterial Blood 274; Potassium Level - ABG 4.2 mmol/L (3.5-5.0); Total Hemoglobin 10.1 g/dL (12-16)
--- NOTE | 2024-08-24 04:14 | ECG_ITS ---
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 Measurements Intervals [place] Rate: 77 P: 118 [place]: 150 QRS: -25 QRSD: 117 T: 130 QT: 409 QTc: 466 Interpretive Statements SINUS RHYTHM LATERAL MYOCARDIAL INFARCTION , OF INDETERMINATE AGE [40+ ms Q WAVE AND/OR ST/T ABNORMALITY IN I/aVL/V5/V6] Compared to ECG 08/24/2024 02:13:42 No significant changes Electronically Signed On 08-24-2024 13:14:53 CDT by Angela Lopez M.D. [email or web address]
[2024-08-24 04:23] LABS: Basophils % 0.1 %; Eosinophils % 0.2 %; Hematocrit 30.7 % (36-47); Lymphocytes # 0.5 10^3/uL (0.8-4.8); Lymphocytes % 3.6 %; Mean Corpuscular HGB Conc 30.3 g/dL (30-55); Mean Corpuscular Hemoglobin 25.5 pg (27-33); Mean Corpuscular Volume 84.1 fl (85-98); Mean Platelet Volume 11.8 fL (7.4-10.4); Monocytes # 0.8 10^3/uL (0.2-0.9); Neutrophils # 11.37 10^3/uL (1.8-7.7); Neutrophils % 89.5 %; Nucleated Red Blood Cells % 0 %; Platelet Count 308 10^3/cmm (157-399); Red Blood Count 3.65 10^6/uL (3.85-5.65)
[2024-08-24 04:41] LABS: Troponin(5th) Baseline 38 ng/L (0-10)
[2024-08-24 04:44] LABS: D Dimer 0.68 ug/mLFEU (0-0.59)
[2024-08-24 04:53] LABS: NT Pro B Type Natriuretic Pept 13026 pg/mL (0-450); Procalcitonin 0.02 ng/mL (0-0.5)
[2024-08-24 05:04] LABS: Alanine Aminotransferase 33 U/L (0-33); Albumin Level 3.6 g/dL (3.5-5.2); Alkaline Phosphatase 121 U/L (35-105); Aspartate Amino Transferase 50 U/L (0-32); Blood Urea Nitrogen 48 mg/dL (8-23); Calcium 8.6 mg/dL (8.5-10.5); Carbon Dioxide 28 mmol/L (22-29); Chloride 100 mmol/L (98-107); Creatinine Clr Calc Pharmacy 50.8232; Globulin 2.7 g/dL (1.3-4.6); Glucose 388 mg/dL (65-115); Magnesium 2.3 mg/dL (1.7-2.3); Osmolality Calculated 319 mOsm/kg (285-295); Sodium 140 mmol/L (136-145); Total Bilirubin 0.2 mg/dL (0.15-1.2); Total Protein 6.3 g/dL (6.6-8.7)
[2024-08-24 05:05] LABS: Anion Gap 16.7 (5-19); Lactic Sepsis W/Reflex 2.8 mmol/L (0.5-2.2); Potassium 4.7 mmol/L (3.5-5.1)
[2024-08-24 05:07] LABS: Influenza A NEGATIVE (Negative); Influenza B NEGATIVE (Negative); Respiratory Syncytial Virus Ce NEGATIVE (Negative); SARS-CoV-2 PCR NEGATIVE (Negative)
--- NOTE | 2024-08-24 05:21 | XRR_ITS ---
PROCEDURE INFORMATION: Exam: XR Right Foot Exam date and time: 08/24/2024 5:23 AM Age: 84 years old Clinical indication: Swelling, leg or foot; Swelling and redness to dorsum of RT foot. History of cellulitis. ; Additional info: Redness swelling pain TECHNIQUE: Imaging protocol: Radiologic exam of the right foot. Views: 3 or more views. COMPARISON: CR XR foot RT min 3V* [id number] 08/22/2024 1:28 PM FINDINGS: Bones/joints: Normal. Soft tissues: There is soft tissue swelling overlying the dorsal aspect of the right foot. XR/XR foot RT min 3V* [id number] IMPRESSION: There are no acute osseous findings.
[2024-08-24 05:25] LABS: Erythrocyte Sedimentation Rate 17 mm/hr (0-15)
--- NOTE | 2024-08-24 05:29 | CTR_ITS ---
PROCEDURE INFORMATION: Exam: CTA Chest With Contrast Exam date and time: 08/24/2024 5:52 AM Age: 84 years old Clinical indication: Abnormal findings; Abnormal diagnostic tests; Elevated d-dimer; Shortness of breath; Prior surgery; Surgery date: 6+ months; Surgery type: Heart; Additional info: Shortness of breath, tachypnea, elevated d-dimer TECHNIQUE: Imaging protocol: Computed tomographic angiography of the chest with contrast. Exam focused on the arteries. 3D rendering (Not supervised by radiologist): MIP and/or 3D reconstructed images were created by the technologist. Radiation optimization: All CT scans at this facility use at least one of these dose optimization techniques: automated exposure control; mA and/or kV adjustment per patient size (includes targeted exams where dose is matched to clinical indication); or iterative reconstruction. Contrast material: OMNI 350; Contrast volume: 76 ml; Contrast route: INTRAVENOUS (IV); COMPARISON: CT angio chest PE protcl [id number] 05/26/2024 11:03 PM RADIATION DOSE METRICS: Total DLP (mGy-cm): 450.12 FINDINGS: Pulmonary arteries: There is mild prominence of pulmonary vasculature. Aorta: Unremarkable. No aortic aneurysm. No aortic dissection. Lungs: Calcifications are seen in the tracheobronchial tree. There are hazy opacities seen lung bases bilaterally and some increased interstitial and septal opacities are present. Some stranding opacities superimpose over the hemidiaphragms bilaterally likely represent pleural and parenchymal scarring or atelectasis. Pleural spaces: Some patchy consolidation is seen in the right posterior costophrenic recess. Heart: Cardiac silhouette is prominent. Coronary arteries: There are prominent coronary artery calcifications. Lymph nodes: Unremarkable. No enlarged lymph nodes. Bones/joints: Unremarkable. No acute fracture. Soft tissues: There is a small hernia present. CT/CT angio chest PE protcl [id number] IMPRESSION: 1. There is no evidence for pulmonary emboli. 2. There is mild prominence of the pulmonary vasculature, hazy and linear opacities present in the lower jayme thoraces, findings could represent pulmonary edema. 3. Patchy consolidation is seen in the posterior costophrenic recess and some strandy opacities are seen superimposed over hemidiaphragms. These findings could represent atelectasis although basilar infiltrates pneumonia can not be entirely excluded.
[2024-08-24 05:36] LABS: C Reactive Protein 13.2 mg/L (0.0-4.9)
[2024-08-24] MEDS: insulin regular-human 100 units/1 mL 5 UNIT IVP (05:39)
[2024-08-24] MEDS: iohexol 350 mg/mL 500 mL Btl (per mL) IV (06:00)
[2024-08-24 06:08] LABS: Reflex Lactate Order REFLEX LACTIC ORDERD
[2024-08-24 06:27] LABS: Troponin 5 2HR 34.56 ng/L (0-10)
[2024-08-24 06:28] LABS: Lactic Acid level (Lactate) 2.7 mmol/L (0.5-2.2); Troponin 5 2HR Delta -3.44 ABS# (0-10)
[2024-08-24] MEDS: FUROsemide 10 mg/mL SDV 4mL 40 MG IVP ×3 (07:05→20:49)
[2024-08-24] MEDS: albuterol 2.5 mg/3 mL Neb INHALATION (07:27)
--- NOTE | 2024-08-24 07:31 | PC.NURSE ---
pt assisted by one nurse up to commode, placed on air mat sheet after. then pt states needing to have BM, states doesn't feel comfortable getting up; provided bed kenny.
[2024-08-24 08:07] LABS: Bacteria Urine None Seen /hpf; RBC Urine 0-2 /hpf (0-2); Squamous Epithelial Cell Urine 0-5 /hpf (0-5); WBC Urine 0-5 /hpf (0-5)
[2024-08-24 08:11] LABS: ABG PCO2 50.6 mmHg (35-45); ABG PH Result 7.38 (7.35-7.45); Alveolar-Arterial Oxygen Gradi 9.9 mmHg (5-10); Arterial Blood Gas Hematocrit 31.3 % (37-47); Base Excess ABG 4.1 mmol/L (-2.0-2.0); Blood Gas Operator Identificat BROMA; Blood Gas Sample Site Brachial, right; Blood Gas Sample Type Arterial; HGB O2 Sat 95.3 % (95-100); Ionized Calcium Level - ABG 1.2 mmol/L (1.1-1.4); Methemoglobin 1.1 % (0.4-1.5); Oxygen Device BIPAP; Oxygen Saturation ABG 97.4; PO2 ABG 90.9 mmHg (80.0-100.0); PO2 FiO2 Ratio Arterial Blood 284; Potassium Level - ABG 4.1 mmol/L (3.5-5.0); Total Hemoglobin 10.2 g/dL (12-16)
--- NOTE | 2024-08-24 08:14 | ECG_ITS ---
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 Measurements Intervals [place] Rate: 78 P: 63 KS: 145 QRS: -25 QRSD: 108 T: 151 QT: 378 QTc: 433 Interpretive Statements SINUS RHYTHM PROBABLE LATERAL MYOCARDIAL INFARCTION , OF INDETERMINATE AGE [35 ms Q WAVE IN I/aVL/V5/V6] Compared to ECG 08/05/2024 17:37:25 Myocardial infarct finding now present Left-axis deviation no longer present Intraventricular conduction delay no longer present T-wave abnormality no longer present Possible ischemia no longer present Electronically Signed On 08-24-2024 13:15:02 CDT by Angela Lopez M.D. [id number] [id number]
[2024-08-24 08:18] LABS: Add Urine Microscopic? YES; Bilirubin Urine Neg (Negative); Blood Urine Neg (Negative); Glucose Urine UA 4+ (Normal); Ketones Urine Negative (Negative); Leukocyte Esterase Urine Negative (Negative); Nitrate Urine Negative (Negative); Protein Urine Trace (Negative); UA Slide Review UA Slide Review Perf; Urine Appearance Clear (CLEAR); Urine Color Yellow (Yellow); Urobilinogen Urine Neg (Negative); pH Urine 5 (5-7)
[2024-08-24 08:26] LABS: Glucose Point of Care 320 mg/dL (70-110)
--- NOTE | 2024-08-24 09:22 | PM.HP ---
Providers/Chief Complaint Admitting Physician: Kezia Scott MD Primary Care Provider: Antonio Delgado MD Chief Complaint: RESP. DISTRESS History of Present Illness Sally Henderson is a 84 year old female With past medical history of CHF, coronary disease, diabetes mellitus, CKD, paroxysmal atrial fibrillation, NSTEMI who presented to the hospital today for complaint of shortness of breath. It started suddenly yesterday. She is quite tearful and crying at this time stating that she did not want to be in the hospital as she had plans today. She states she knows she needs to be here however she does not want to be here. She is currently on BiPAP. She does not have a BiPAP machine at home. She states it is just oxygen that she uses. Most recently last month she has required intubation as well for respiratory failure. And recently had a hospital admission for CHF exacerbation and after diuresis she was discharged on 08/08. She again presents today with similar symptoms and shortness of breath. Denies any chest pain nausea vomiting diarrhea or any other symptoms at this time except that she feels short of breath when she is not wearing the BiPAP. Additionally she had a wound on the left toe for which she was seen by podiatry last admission. That has worsened with necrotic areas present. Medications/Allergies Home Medications ?Medication ?Instructions ?Recorded ?Confirmed ?Last Taken ?Type clopidogrel 75 mg tablet 75 mg PO BEDTIME #90 tabs 03/27/24 08/24/24 08/04/24 Rx nitroglycerin 0.4 mg sublingual 0.4 mg buccal PRN PRN Chest Pain 04/10/24 08/24/24 Unknown History tablet furosemide 40 mg tablet 40 mg PO BID@0800,1400 30 days #60 05/28/24 08/24/24 08/04/24 Rx tabs isosorbide mononitrate 60 mg 60 mg PO DAILY 06/07/24 08/24/24 08/04/24 History tablet,extended release 24 hr insulin aspart U-100 100 unit/mL See Rx Instructions .Route 06/11/24 08/24/24 08/04/24 Rx (3 mL) subcutaneous pen (Novolog .COMPLEX #15 mL FlexPen U-100 Insulin aspart) insulin degludec 200 unit/mL (3 20 unit (0.1 mL) SUBCUT DAILY #9 mL 06/11/24 08/24/24 08/04/24 Rx mL) subcutaneous pen (Tresiba FlexTouch U-200 insulin) amiodarone 200 mg tablet 200 mg PO DAILY 07/18/24 08/24/24 08/04/24 History atorvastatin 40 mg tablet 40 mg PO QPM 07/18/24 08/24/24 08/04/24 History tramadol 50 mg tablet 50 mg PO Q6H PRN Pain 07/18/24 08/24/24 Unknown History budesonide-formoterol HFA 80 1 inh inhalation BID #10.2 grams 07/23/24 08/24/24 08/04/24 Rx mcg-4.5 mcg/actuation aerosol inhaler (Symbicort) nebulizer and compressor ([id number] #1 ea 07/23/24 08/24/24 Unknown Rx Nebulizer) sacubitril 24 mg-valsartan 26 mg 1 tab PO BID #60 tabs 07/25/24 08/24/24 08/04/24 Rx tablet (Entresto) Held on 08/08/24. Instructions: as per cardiology aspirin 81 mg tablet,delayed 81 mg PO DAILY #30 tabs 08/07/24 08/24/24 Unknown Rx release doxycycline monohydrate 100 mg 100 mg PO BID #8 tabs 08/07/24 08/24/24 Unknown Rx tablet metoprolol tartrate 25 mg tablet 12.5 mg (1/2 x 25 mg) PO 08/07/24 08/24/24 Unknown Rx BID@0900,2100 #60 tabs neomycin-bacitracn Zn-polymyx 3.5 1 applic topical BID #30 grams 08/07/24 08/24/24 Unknown Rx mg-400 unit-5,000 unit/gram top oint (Triple Antibiotic) potassium chloride 20 mEq 10 meq (1/2 x 20 mEq) PO DAILY #30 08/07/24 08/24/24 08/04/24 Rx tablet,extended release(part/cryst) tabs ranolazine 500 mg tablet,extended 1,000 mg (2 x 500 mg) PO BID #120 08/07/24 08/24/24 Unknown Rx release,12 hr tabs losartan 25 mg tablet 25 mg PO DAILY #30 tabs 08/08/24 08/24/24 08/04/24 Rx Allergies Allergy/AdvReac Type Severity Reaction Status Date / Time No Known Allergies Allergy Verified 07/18/24 06:33 PFSH Acute PFSH: Medical History Dyslipidemia Essential (primary) hypertension COPD (chronic obstructive pulmonary disease) Chronic hypoxic respiratory failure, on home oxygen therapy Diabetes mellitus, type II, insulin dependent CAD (coronary artery disease) Paroxysmal A-fib CKD (chronic kidney disease) CHF (congestive heart failure) Respiratory arrest has required intubation Non-STEMI (non-ST elevated myocardial infarction) Contrast-induced nephropathy Surgical History Hx of hysterectomy Hx of CABG Family History Unknown No problems noted. Social History Smoking and tobacco/nicotine status: former use of tobacco/nicotine Alcohol intake: never Substance/Drug Use: never Vitals/I&O/Wt Last Vital Signs Pulse 64 08/24/24 08:24 Resp 19 H 08/24/24 07:32 BP 134/60 08/24/24 08:24 Pulse Ox 99 08/24/24 08:24 O2 Del Method BiPAP 08/24/24 07:59 O2 Flow Rate 3 08/24/24 06:33 FiO2 36 08/24/24 07:31 08/23/24 08/24/24 08/24/24 22:59 06:59 14:59 Intake Total 0 / 0 Balance 0 / 0 Weight last 48 hrs Weight 81.647 kg Physical Exam Narrative: Patient is awake and alert. Laying in bed on BiPAP at this time appears to be comfortable however tearful stating that she feels good when the machine is on however has difficulty breathing with the mask off. States she does not want to be here but knows she has to be here. Good bilateral air entry with mild crackles at bases. Normocephalic atraumatic, EOMI Normal S1-S2 Abdomen soft nontender Chest chest examined as patient had spilled Ramen on it last time. Mild redness present. Burn wound appears healing well. Ulcer noted at base of left great toe with necrotic areas. Data 08/24/24 04:12 08/24/24 04:12 A&P Assessment and plan (1) Essential (primary) hypertension: (2) Congestive heart failure: (3) CAD (coronary artery disease): Qualifiers: Associated angina: with other forms of angina Coronary Disease-Associated Artery/Lesion type: council artery [place] vs. transplanted heart: council heart Qualified Code(s): I25.118 - Atherosclerotic heart disease of council coronary artery with other forms of angina pectoris (4) Paroxysmal A-fib: (5) Dyslipidemia: (6) CKD (chronic kidney disease): Qualifiers: Chronic kidney disease stage: stage 3 (moderate) Chronic kidney disease stage 3 subtype: stage 3a (GFR 45-59) Qualified Code(s): N18.31 - Chronic kidney disease, stage 3a (7) Diabetes mellitus, type II, insulin dependent: (8) Anemia: Qualifiers: Anemia type: other cause Other causes of anemia: other cause, not classified Qualified Code(s): D64.89 - Other specified anemias (9) Leukocytosis: Qualifiers: Leukocytosis type: unspecified Qualified Code(s): D72.829 - Elevated white blood cell count, unspecified (10) Cellulitis of great toe, left: (11) COPD (chronic obstructive pulmonary disease): Qualifiers: COPD type: emphysema Emphysema type: panlobular Qualified Code(s): J43.1 - Panlobular emphysema (12) Chronic hypoxic respiratory failure, on home oxygen therapy: (13) Acute hypoxemic respiratory failure: (14) Hypercapnic respiratory failure: Plan #Acute on chronic diastolic CHF #Acute respiratory failure with hypoxia #Diabetes mellitus with hyperglycemia #CKD #CAD #Paroxysmal atrial fibrillation #COPD #Dyslipidemia #Anemia #Chronic leukocytosis ? Continue on Lasix 40 IV twice daily ? BNP elevated at 13,000 on admission today. ? Continue BiPAP for respiratory support. Patient is full code however will try to avoid intubation if possible. Patient has been intubated in the past. ? Repeat limited echo to assess LV function. ? Troponins delta negative at 6 hours. ? Creatinine 1.1 today. It is at baseline. Lactic acid elevated at 2.7 this morning. Unsure etiology. Patient does not appear to be septic. Will check blood cultures. Possibly secondary to heart failure? Will continue to trend at this time. I will add IV Levaquin for empiric coverage. ?Blood sugar 388 in AM. ? Continue Lantus 20 units at bedtime and insulin sliding scale moderate dose intensity ? Anemia chronic most likely normocytic. ? D-dimer 0.68. Age-adjusted not elevated. ? Leukocytosis 12.7 most likely secondary to chronic elevation. ?Liver enzymes reviewed: AST 50, ALT 33, alkaline phosphatase 151. ? Will continue to diurese patient at this time ? Will place podiatry consult for debridement of left toe. Possible source of infection and lactic acidosis?. Check CRP, ESR ? Check procalcitonin, low suspicion of pneumonia. ? Continue aspirin Plavix, Imdur ? Continue DuoNebs every 6 hours ? Continue Solu-Medrol 40 IV twice daily ? Continue ranolazine thousand twice daily. Of note patient did have recent coronary angiogram. She was deemed a candidate for medical management previously after she was transferred for consideration of high risk coronary intervention. Patient denies any chest pain at this time. Full code DVT prophylaxis: Heparin SQ twice daily PDMP PDMP Reviewed: Not Reviewed Attestations Medical Necessity Statement*: Greater than 2 midnight stay for management of CHF exacerbation, dyspnea. Diagnoses Essential (primary) hypertension I10 Congestive heart failure I50.9 Coronary artery disease involving council coronary artery of council heart with other form of angina pectoris I25.118 Associated angina: with other forms of angina Coronary Disease-Associated Artery/Lesion type: council artery [place] vs. transplanted heart: council heart Paroxysmal A-fib I48.0 Dyslipidemia E78.5 Stage 3a chronic kidney disease N18.31 Chronic kidney disease stage: stage 3 (moderate) Chronic kidney disease stage 3 subtype: stage 3a (GFR 45-59) Diabetes mellitus, type II, insulin dependent E11.9; Z79.4 Anemia due to other cause, not classified D64.89 Anemia type: other cause Other causes of anemia: other cause, not classified Leukocytosis, unspecified type D72.829 Leukocytosis type: unspecified Cellulitis of great toe, left L03.032 Panlobular emphysema J43.1 COPD type: emphysema Emphysema type: panlobular Chronic hypoxic respiratory failure, on home oxygen therapy J96.11; Z99.81 Acute hypoxemic respiratory failure J96.01 Hypercapnic respiratory failure J96.92
[2024-08-24 10:28] LABS: Glucose Point of Care 329 mg/dL (70-110)
[2024-08-24] MEDS: heparin 5,000 unit/mL INJ 1 mL 5000 UNIT SUBCUT ×2 (10:38→20:50)
[2024-08-24] MEDS: methylPREDNISolone sod succ 40 mg/mL INJ IVP ×2 (10:38→20:50)
[2024-08-24 11:09] LABS: Troponin 5 6HR 36.93 ng/L (0-10)
[2024-08-24 11:12] LABS: Troponin 5 6HR Delta -1.07 ng/L (0-12)
[2024-08-24 11:27] LABS: Glucose Point of Care 332 mg/dL (70-110)
[2024-08-24] MEDS: ipratropium-albuterol 3 mL Neb INHALATION ×3 (11:35→21:22)
--- NOTE | 2024-08-24 12:18 | USCV_ITS ---
Sally Henderson Age: 84 Gender: F : 1940 Exam Date: 08/24/2024 13:38 Ordering Phys: Kezia Scott MD Technologist: Brad Rankin Exam Location: [facility] [place] Indication: assess lv BP: 145 / 68 HR: Rhythm: Sinus Technical Quality: Adequate MEASUREMENTS (Male / Female) Normal Values 2D ECHO LV Diastolic Diameter PLAX 5.7 cm 4.2 - 5.9 / 3.9 - 5.3 cm IVS Diastolic Thickness 1.6 cm 0.6 - 1.0 / 0.6 - 0.9 cm IVS Systolic Thickness 1.7 cm LVPW Diastolic Thickness 1.3 cm 0.6 - 1.0 / 0.6 - 0.9 cm LVPW Systolic Thickness 1.6 cm LVOT Diameter 2.0 cm LV Ejection Fraction 2D Teich 39.6 % LV Ejection Fraction MOD 4C 43.5 % LV Ejection Fraction MOD 2C 45.1 % LV Ejection Fraction 2C AL 45.4 % LA Diameter 4.3 cm RA Systolic Volume 4C AL 70.6 ml RA Systolic Volume 4C MOD 73.1 ml LA Sys Volume AL 84.7 cm cubed LA Sys Volume Index AL 45.5 cm cubed/m squared Aorta at Sinotubular Diameter 2.4 cm IVC Diameter 1.8 cm M-MODE LA Ao Ratio MM 1.5 AV Cusp Separation MM 2.0 cm FINDINGS Left Ventricle moderate diffuse hypokinesia of the inferolateral and lateral wall segments. LV ejection fraction of 45%. Mildly dilated LV Cavity. Right Ventricle The right ventricle is normal in size and function. Right Atrium Moderately increased right atrial size. Left Atrium Moderately increased left atrial size. Mitral Valve Thickened mitral valve. Moderate mitral annular calcification. Aortic Valve Thickened aortic valve. Tricuspid Valve No gross abnormalities noted Pulmonic Valve No gross abnormalities noted Pericardium No pericardial effusion. Aorta Normal ascending aorta dimension. IVC Normal IVC dimension with <50% respiratory change of the inferior vena cava. CONCLUSIONS Moderate diffuse hypokinesia of the inferolateral and lateral wall segments. LV ejection fraction of 45%. Mildly dilated LV Cavity. Moderate biatrial enlargement Thickened mitral valve. Moderate mitral annular calcification. Thickened aortic valve. There is no pericardial effusion. There are no intracardiac masses. Compared to the study from 07/18/2024, there may not be a significant change Dr Angela Lopez MD FACC (Electronically Signed) Final Date: 25 August 2024 09:22 S
[2024-08-24] MEDS: levofloxacin-dextrose 5 % 750 MG/150 ML PREMIX 100 MG IV (12:29)
[2024-08-24 12:36] LABS: C Reactive Protein 11.7 mg/L (0.0-4.9)
--- NOTE | 2024-08-24 13:01 | PC.NURSE ---
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 Dr Scott contacted for pain control. She ordered 2mg morphine IVPx1 and ordered to resume patient's home dose of tramodol which is 50mg Q6H PRN. Orders entered by nurse.
[2024-08-24] MEDS: morphine 4 mg/mL SDV 1 mL 2 MG IVP (13:06)
--- NOTE | 2024-08-24 13:09 | PM.CONSULT ---
Providers/Reason For Consult Consulting Physician/Specialty*: Jean Paul Renee D.P.M. Reason for Consult*: Diabetic foot ulcer, left great toe. Attending Physician: Kezia Scott MD Primary Care Provider: Antonio Delgado MD History of Present Illness History of Present Illness Sally Henderson is a 84 year old female presents with a diabetic foot ulcer left great toe. She has a past medical history of COPD, requires oxygen, history of A-fib, CKD and CHF history of myocardial infarction and neuropathy. She has had a worsening of a wound to the left great toe I was consulted for evaluation. She also complains of bruising and tenderness at the right forefoot she states she dropped an object on her foot and sustained a contusion. Right x-rays were negative. Review of Systems General: Reports: 10 or more systems reviewed and unremarkable except in HPI and below Const: Denies: fever(s) or chills Eyes: Denies: change in vision Card: Denies: chest pain or palpitations Resp: Denies: dyspnea or productive cough GI: Denies: abdominal pain, nausea or vomiting : Denies: flank pain Musc: Reports: extremity swelling, joint stiffness and deformity Skin/Breast: Reports: erythema, sores, changes in skin color, dry skin, nail changes and change in hair Neuro: Reports: numbness in extremities, sensory changes and difficulty walking Psych: Denies: suicidal ideation Endo: Denies: change in body appearance Saeid/Lymph: Denies: tender lymph nodes Medications/Allergies Home Medications ?Medication ?Instructions ?Recorded ?Confirmed ?Last Taken ?Type clopidogrel 75 mg tablet 75 mg PO BEDTIME #90 tabs 03/27/24 08/24/24 08/04/24 Rx nitroglycerin 0.4 mg sublingual 0.4 mg buccal PRN PRN Chest Pain 04/10/24 08/24/24 Unknown History tablet furosemide 40 mg tablet 40 mg PO BID@0800,1400 30 days #60 05/28/24 08/24/24 08/04/24 Rx tabs isosorbide mononitrate 60 mg 60 mg PO DAILY 06/07/24 08/24/24 08/04/24 History tablet,extended release 24 hr insulin aspart U-100 100 unit/mL See Rx Instructions .Route 01/28/25 04/12/25 03/23/25 Rx (3 mL) subcutaneous pen (Novolog .COMPLEX #15 mL FlexPen U-100 Insulin aspart) insulin degludec 200 unit/mL (3 20 unit (0.1 mL) SUBCUT DAILY #9 mL 06/11/24 08/24/24 08/04/24 Rx mL) subcutaneous pen (Tresiba FlexTouch U-200 insulin) amiodarone 200 mg tablet 200 mg PO DAILY 07/18/24 08/24/24 08/04/24 History atorvastatin 40 mg tablet 40 mg PO QPM 07/18/24 08/24/24 08/04/24 History tramadol 50 mg tablet 50 mg PO Q6H PRN Pain 07/18/24 08/24/24 Unknown History budesonide-formoterol HFA 80 1 inh inhalation BID #10.2 grams 07/23/24 08/24/24 08/04/24 Rx mcg-4.5 mcg/actuation aerosol inhaler (Symbicort) nebulizer and compressor ([id number] #1 ea 07/23/24 08/24/24 Unknown Rx Nebulizer) sacubitril 24 mg-valsartan 26 mg 1 tab PO BID #60 tabs 07/25/24 08/24/24 08/04/24 Rx tablet (Entresto) Held on 08/08/24. Instructions: as per cardiology aspirin 81 mg tablet,delayed 81 mg PO DAILY #30 tabs 08/07/24 08/24/24 Unknown Rx release doxycycline monohydrate 100 mg 100 mg PO BID #8 tabs 08/07/24 08/24/24 Unknown Rx tablet metoprolol tartrate 25 mg tablet 12.5 mg (1/2 x 25 mg) PO 08/07/24 08/24/24 Unknown Rx BID@0900,2100 #60 tabs neomycin-bacitracn Zn-polymyx 3.5 1 applic topical BID #30 grams 08/07/24 08/24/24 Unknown Rx mg-400 unit-5,000 unit/gram top oint (Triple Antibiotic) potassium chloride 20 mEq 10 meq (1/2 x 20 mEq) PO DAILY #30 08/07/24 08/24/24 08/04/24 Rx tablet,extended release(part/cryst) tabs ranolazine 500 mg tablet,extended 1,000 mg (2 x 500 mg) PO BID #120 08/07/24 08/24/24 Unknown Rx release,12 hr tabs losartan 25 mg tablet 25 mg PO DAILY #30 tabs 08/08/24 08/24/24 08/04/24 Rx Allergies Allergy/AdvReac Type Severity Reaction Status Date / Time No Known Allergies Allergy Verified 07/18/24 06:33 Current Medications Generic Name Dose Route Start Last Admin Trade Name Freq PRN Reason Stop Dose Admin Albuterol/Ipratropium 3 ml 08/24/24 12:00 08/24/24 11:35 Ipratropium-Albuterol 3 Ml Neb INHALATION 3 ml QID.RESPIRATORY LI Administration Furosemide 40 mg 08/24/24 09:30 08/24/24 10:42 Furosemide 10 Mg/Ml Sdv 4ml IVP 40 mg Q12H LI Administration Heparin Sodium (Porcine) 5,000 unit 08/24/24 09:30 08/24/24 10:38 Heparin 5,000 Unit/Ml Inj 1 Ml SUBCUT 5,000 unit Q12H LI Administration Levofloxacin/Dextrose 750 mg in 150 mls @ 100 mls/hr 08/24/24 12:30 08/24/24 12:29 Levaquin-D5w IV 100 mls/hr Q24H LI Administration Protocol Methylprednisolone Sodium Succinate 40 mg 08/24/24 09:45 08/24/24 10:38 Methylprednisolone Sod Succ 40 Mg/Ml Inj IVP 40 mg Q12H LI Administration PFSH Acute PFSH: Medical History Dyslipidemia Essential (primary) hypertension COPD (chronic obstructive pulmonary disease) Chronic hypoxic respiratory failure, on home oxygen therapy Diabetes mellitus, type II, insulin dependent CAD (coronary artery disease) Paroxysmal A-fib CKD (chronic kidney disease) CHF (congestive heart failure) Respiratory arrest has required intubation Non-STEMI (non-ST elevated myocardial infarction) Contrast-induced nephropathy Surgical History Hx of hysterectomy Hx of CABG Family History Unknown No problems noted. Social History Smoking and tobacco/nicotine status: former use of tobacco/nicotine Alcohol intake: never Substance/Drug Use: never Vitals/I&O/Wt Last Vital Signs Temp 97.8 F 08/24/24 11:22 Pulse 68 08/24/24 11:39 Resp 18 08/24/24 11:39 BP 145/68 08/24/24 11:22 Pulse Ox 96 08/24/24 11:39 O2 Del Method Nasal Cannula 08/24/24 11:39 O2 Flow Rate 3 08/24/24 11:39 FiO2 36 08/24/24 07:31 08/23/24 08/24/24 08/24/24 22:59 06:59 14:59 Intake Total 0 / 0 Balance 0 / 0 Weight last 48 hrs Weight 174 lb 2.643 oz Weight 180 lb Physical Exam Narrative: GENERAL: Patient is alert and oriented ?3 and in no acute distress. The following is a focused bilateral lower extremity exam. VASCULAR: Dorsalis pedis palpable bilaterally. Posterior tibial arteries palpable. Capillary refill time less than 5 decreased pedal hair growth bilaterally. Seconds to the distal hallux bilaterally. Calf is supple and nontender proximally and distally. NEUROLOGICAL: Protective sensation diminished, tested with [place] Sergio monofilament to bilateral feet. DERMATOLOGICAL: Unstageable ulcer to the left great toe, patient did not tolerate debridement, ulceration measures 1.8 cm x 0.5 cm x 0.1 cm, hyperkeratotic rim and fibro eschar base without purulence or bogginess, no fluctuance, no proximal congenic streaking. No tendon or bone exposed. Ecchymosis to the dorsum of the right forefoot without wound. MUSCULOSKELETAL: Bilateral bunion. Tenderness at left great toe wound medially. No crepitus with palpation of adjacent soft tissues to the right distal medial forefoot. Tenderness at right forefoot second metatarsal neck. Muscle strength +5 in all 3 planes bilateral foot and ankle. Urinary Catheter Management: Huff: Cath Placed During This Visit: yes Urinary Catheter Date of Insertion: 08/24/24 Urinary Catheter Time of Insertion: 09:40 Data 08/25/24 02:52 08/25/24 02:52 Micro: Microbiology 08/24/24 06:08 Blood Culture - Preliminary Blood SPECIMEN COLLECTED A&P Assessment and plan (1) Contusion of right foot: Right foot x-rays negative for acute osseous injury. [place] sclerosis evident on plain film x-ray. Qualifiers: Encounter type: initial encounter Qualified Code(s): S90.31XA - Contusion of right foot, initial encounter (2) Diabetes mellitus, type II, insulin dependent: (3) Non-pressure chronic ulcer of other part of right foot with fat layer exposed: Plan 84-year-old diabetic female with hyperglycemia presents with significant comorbidities and wound to the left great toe that is worsened since her last hospitalization. - Ordered left foot x-ray, x-ray pending Erythema resolving since initiating IV antibiotics. Patient not tolerating bedside debridement due to pain and guarding for this reason recommending primary dressing of enzymatic debriding agent Santyl/collagenase to be applied 2 mm thickness or thickness of the nickel once daily with saline moistened gauze island dressing. Will continue to round daily to monitor wound of the left great toe. Recommend offloading with cam boot at left lower extremity, may be weightbearing with cam boot would require assistance for transfers due to instability would also require a walker. PDMP PDMP Reviewed: Not Reviewed Consult Attestations Medical Necessity Statement: Requires continued IV antibiotics. Coding Level of Care Code Acute Code for Chg Fwd Diagnoses Contusion of right foot, initial encounter S90.31XA Encounter type: initial encounter Diabetes mellitus, type II, insulin dependent E11.9; Z79.4 Non-pressure chronic ulcer of other part of right foot with fat layer exposed L97.512
[2024-08-24 13:35] LABS: Erythrocyte Sedimentation Rate 35 mm/hr (0-15)
[2024-08-24 13:44] LABS: Lactic Sepsis W/Reflex 3.1 mmol/L (0.5-2.2)
[2024-08-24] MEDS: HYDROmorphone 0.5 MG/0.5 ML INJ IVP ×2 (14:08→23:02)
--- NOTE | 2024-08-24 14:22 | PC.OT ---
PATIENT O2 SATS DROPPED TO 80s. NURSNG STATD TO HOLD THERAPIES. OT EVAL ON HOLD
[2024-08-24 15:07] LABS: Reflex Lactate Order REFLEX LACTIC ORDERD
[2024-08-24 16:29] LABS: Glucose Point of Care 524 mg/dL (70-110)
[2024-08-24 16:49] LABS: Lactic Acid level (Lactate) 2.4 mmol/L (0.5-2.2)
[2024-08-24 17:08] LABS: Glucose Point of Care 488 mg/dL (70-110)
[2024-08-24] MEDS: ranolazine (12HR) 500 mg Tablet 1000 MG PO (17:20)
[2024-08-24] MEDS: atorvastatin 40 mg Tablet PO (17:20)
[2024-08-24] MEDS: insulin lispro 100 unit/1 mL SUBCUT ×3 (17:21→20:50)
[2024-08-24 20:10] LABS: Glucose Point of Care 483 mg/dL (70-110)
[2024-08-24] MEDS: TRAMadol 50 mg Tablet PO (20:46)
[2024-08-24] MEDS: clopidogrel 75 mg Tablet PO (20:46)
[2024-08-24] MEDS: metoprolol tartrate 25 mg Tablet 12.5 MG PO (20:47)
[2024-08-24] MEDS: budesonide 0.5 mg/2 mL Neb INHALATION (21:22)
[2024-08-24] MEDS: nystatin powder 15 gm Btl 1 APPLIC TOPICAL (23:28)
[2024-08-25] VITALS (13 sets, daily range): BP systolic 101–128; BP diastolic 53–71; PULSE 57–84; RESP 16–24; TEMP 36.5–36.9; O2SAT 93–97; BMI 33.6
[2024-08-25 04:01] LABS: Basophils % 0.1 %; Hematocrit 31.1 % (36-47); Lymphocytes # 0.3 10^3/uL (0.8-4.8); Mean Corpuscular HGB Conc 30.9 g/dL (30-55); Mean Corpuscular Hemoglobin 25.2 pg (27-33); Mean Corpuscular Volume 81.6 fl (85-98); Mean Platelet Volume 11.8 fL (7.4-10.4); Monocytes # 0.5 10^3/uL (0.2-0.9); Monocytes % 3.4 %; Neutrophils # 13.33 10^3/uL (1.8-7.7); Neutrophils % 94.1 %; Nucleated Red Blood Cells % 0 %; Platelet Count 289 10^3/cmm (157-399); Red Blood Count 3.81 10^6/uL (3.85-5.65); Red Cell Distribution Width 15.2 % (12.1-15.1); White Blood Count 14.18 10^3/uL (3.29-11.43)
[2024-08-25 04:25] LABS: Alanine Aminotransferase 25 U/L (0-33); Albumin Level 3.6 g/dL (3.5-5.2); Alkaline Phosphatase 108 U/L (35-105); Anion Gap 19.1 (5-19); Aspartate Amino Transferase 18 U/L (0-32); Blood Urea Nitrogen 40 mg/dL (8-23); Calcium 8.6 mg/dL (8.5-10.5); Carbon Dioxide 27 mmol/L (22-29); Chloride 97 mmol/L (98-107); Creatinine Clr Calc Pharmacy 36.6638; Globulin 2.9 g/dL (1.3-4.6); Glucose 375 mg/dL (65-115); Magnesium 2.1 mg/dL (1.7-2.3); Osmolality Calculated 313 mOsm/kg (285-295); Potassium 4.1 mmol/L (3.5-5.1); Sodium 139 mmol/L (136-145); Total Bilirubin 0.2 mg/dL (0.15-1.2); Total Protein 6.5 g/dL (6.6-8.7)
[2024-08-25] MEDS: collagenase oint 30 gm 1 APPLIC TOPICAL ×2 (06:35→08:45)
[2024-08-25 06:40] LABS: Glucose Point of Care 399 mg/dL (70-110)
[2024-08-25] MEDS: insulin glargine 100 units/1 mL 20 UNIT SUBCUT (08:32)
[2024-08-25] MEDS: aspirin 81 mg EC Tablet PO (08:32)
[2024-08-25] MEDS: insulin lispro 100 unit/1 mL SUBCUT ×3 (08:32→21:45)
[2024-08-25] MEDS: FUROsemide 10 mg/mL SDV 4mL 40 MG IVP ×2 (08:33→21:46)
[2024-08-25] MEDS: heparin 5,000 unit/mL INJ 1 mL 5000 UNIT SUBCUT ×2 (08:33→21:46)
[2024-08-25] MEDS: amiodarone 200 mg Tablet PO (08:33)
[2024-08-25] MEDS: ranolazine (12HR) 500 mg Tablet 1000 MG PO ×2 (08:33→17:30)
[2024-08-25] MEDS: isosorbide mononitrate ER 60 mg Tablet PO (08:33)
[2024-08-25] MEDS: metoprolol tartrate 25 mg Tablet 12.5 MG PO ×2 (08:36→21:46)
[2024-08-25] MEDS: nystatin powder 15 gm Btl 1 APPLIC TOPICAL ×2 (10:54→17:31)
[2024-08-25] MEDS: methylPREDNISolone sod succ 40 mg/mL INJ IVP ×2 (10:54→21:46)
--- NOTE | 2024-08-25 10:58 | XRR_ITS ---
PROCEDURE INFORMATION: Exam: XR Left Foot Exam date and time: 08/25/2024 1:54 PM Age: 84 years old Clinical indication: Other: Diabetic ulcer medial aspect of left great toe TECHNIQUE: Imaging protocol: Radiologic exam of the left foot. Views: 3 or more views. COMPARISON: CR XR foot LT min 3V* [id number] 03/29/2023 11:20 AM FINDINGS: Bones/joints: Degenerative changes or osteoarthrosis at the tarsometatarsal articulation with subcortical cysts seen in the cuneiforms. Also navicular cyst with surrounding sclerosis. No definite osteolysis or periosteal reaction is seen. Soft tissues: Normal. Vasculature: Needle measuring 2 cm projects over the tarsonavicular on frontal and oblique views. Vascular calcifications are noted. XR/XR foot LT min 3V* [id number] IMPRESSION: 1. No definite radiographic evidence of osteomyelitis. 2. Osteoarthrosis. 3. Needle projecting over the tarsal navicular on two views. Please correlate clinically.
[2024-08-25 11:30] LABS: Glucose Point of Care 494 mg/dL (70-110)
[2024-08-25] MEDS: ipratropium-albuterol 3 mL Neb INHALATION ×3 (11:37→19:44)
[2024-08-25] MEDS: insulin lispro 100 unit/1 mL 20 UNIT SUBCUT (12:11)
--- NOTE | 2024-08-25 12:50 | PM.PN ---
Subjective Subjective: Seen this morning. Patient sitting up in bed on 3 L nasal cannula. Per seen by podiatry. Still has mild crackles at bases bilaterally. Subjectively however feels better. Blood glucose has been uncontrolled in 400 range. Vitals/I&O/Wt Last Vital Signs Temp 97.9 F 08/25/24 11:12 Pulse 84 08/25/24 11:39 Resp 20 H 08/25/24 11:39 BP 107/59 08/25/24 11:12 Pulse Ox 93 08/25/24 11:39 O2 Del Method Nasal Cannula 08/25/24 11:39 O2 Flow Rate 3 08/25/24 11:39 FiO2 36 08/24/24 07:31 08/24/24 08/25/24 08/25/24 22:59 06:59 14:59 Intake Total 630 / 990 480 / 480 Output Total 750 / 2250 1150 / 3400 Balance -120 / -1260 -1150 / -2410 480 / 480 Weight last 48 hrs Weight 78.1 kg Weight 79 kg Weight 81.647 kg Physical Exam Narrative: Patient alert drainage x 3. Good bilateral air entry with mild crackles at bases, mildly improved compared to yesterday. Normocephalic atraumatic, EOMI Normal S1-S2 Abdomen soft nontender Heart: Normal S1-S2, regular rate rhythm. Left toe wrapped with bandage. Recently seen by podiatry. Urinary Catheter Management: Huff: Cath Placed During This Visit: yes Reason for Continuing Indwelling Catheter: Accurate Measurement of Urinary Output in Critically Ill Patients Urinary Catheter Date of Insertion: 08/24/24 Urinary Catheter Time of Insertion: 09:40 Data 08/25/24 02:52 08/25/24 02:52 Micro: Microbiology 08/24/24 06:08 Blood Culture - Preliminary Blood NEGATIVE TO DATE 08/24/24 13:14 Blood Culture - Preliminary Blood SPECIMEN COLLECTED A&P Assessment and plan (1) Essential (primary) hypertension: (2) Congestive heart failure: (3) CAD (coronary artery disease): Qualifiers: Associated angina: with other forms of angina Coronary Disease-Associated Artery/Lesion type: [place] artery [place] vs. transplanted heart: [place] heart Qualified Code(s): I25.118 - Atherosclerotic heart disease of [place] coronary artery with other forms of angina pectoris (4) Paroxysmal A-fib: (5) Dyslipidemia: (6) CKD (chronic kidney disease): Qualifiers: Chronic kidney disease stage: stage 3 (moderate) Chronic kidney disease stage 3 subtype: stage 3a (GFR 45-59) Qualified Code(s): N18.31 - Chronic kidney disease, stage 3a (7) Diabetes mellitus, type II, insulin dependent: (8) Anemia: Qualifiers: Anemia type: other cause Other causes of anemia: other cause, not classified Qualified Code(s): D64.89 - Other specified anemias (9) Leukocytosis: Qualifiers: Leukocytosis type: unspecified Qualified Code(s): D72.829 - Elevated white blood cell count, unspecified (10) Cellulitis of great toe, left: (11) COPD (chronic obstructive pulmonary disease): Qualifiers: COPD type: emphysema Emphysema type: panlobular Qualified Code(s): J43.1 - Panlobular emphysema (12) Chronic hypoxic respiratory failure, on home oxygen therapy: (13) Acute hypoxemic respiratory failure: (14) Hypercapnic respiratory failure: (15) Pneumonia: Plan #Acute on chronic diastolic CHF #Pneumonia #Acute respiratory failure with hypoxia #Diabetes mellitus with hyperglycemia #CKD #CAD #Paroxysmal atrial fibrillation #COPD #Dyslipidemia #Anemia #Chronic leukocytosis ? Continue on Lasix 40 IV twice daily ? BNP elevated at 13,000 on admission today. ? Continue BiPAP for respiratory support. Patient is full code however will try to avoid intubation if possible. Patient has been intubated in the past. ? Repeat limited echo to assess LV function. ? Troponins delta negative at 6 hours. ? Creatinine 1.1 today. It is at baseline. Lactic acid elevated at 2.7 this morning. Unsure etiology. Patient does not appear to be septic. Will check blood cultures. Possibly secondary to heart failure? Will continue to trend at this time. I will add IV Levaquin for empiric coverage. ?Blood sugar 388 in AM. ? Continue Lantus 20 units at bedtime and insulin sliding scale moderate dose intensity ? Anemia chronic most likely normocytic. ? D-dimer 0.68. Age-adjusted not elevated. ? Leukocytosis 12.7 most likely secondary to chronic elevation. ?Liver enzymes reviewed: AST 50, ALT 33, alkaline phosphatase 151. ? Will continue to diurese patient at this time ? Will place podiatry consult for debridement of left toe. Possible source of infection and lactic acidosis?. Check CRP, ESR ? Continue aspirin Plavix, Imdur ? Continue DuoNebs every 6 hours ? Continue Solu-Medrol 40 IV twice daily ? Continue ranolazine thousand twice daily. Of note patient did have recent coronary angiogram. She was deemed a candidate for medical management previously after she was transferred for consideration of high risk coronary intervention. Patient denies any chest pain at this time. 08/25/2024 CTA chest did show patchy consolidation in posterior costophrenic recess and some strandy opacities superimposed over hemidiaphragms. Pneumonia not excluded. Continue on Levaquin 750 every 48 hours as per renal dosing per pharmacy. Lactic acid trended down. Podiatry consulted on patient. Debridement performed. Procalcitonin negative Limited echo repeated shows no significant change compared to prior echo. Patient off BiPAP at this time. On nasal cannula 3 L nasal cannula. Continue Lasix 40 IV twice daily, patient still has crackles present on exam. Continue Solu-Medrol 40 IV twice daily DuoNeb every 6 hours. Continue ranolazine 1000 mg twice daily. Blood glucose uncontrolled. Will increase Lantus to 30 units at bedtime and switch to high dose intensity sliding scale insulin. Sugars most likely high secondary to steroid use at this time. Full code DVT prophylaxis: Heparin SQ twice daily PDMP PDMP Reviewed: Not Reviewed Attestations Medical Necessity Statement*: Requires inpatient stay for management of pneumonia, heart failure exacerbation. Patient is somewhat euvolemic. Diagnoses Essential (primary) hypertension I10 Congestive heart failure I50.9 Coronary artery disease involving [place] coronary artery of [place] heart with other form of angina pectoris I25.118 Associated angina: with other forms of angina Coronary Disease-Associated Artery/Lesion type: [place] artery [place] vs. transplanted heart: [place] heart Paroxysmal A-fib I48.0 Dyslipidemia E78.5 Stage 3a chronic kidney disease N18.31 Chronic kidney disease stage: stage 3 (moderate) Chronic kidney disease stage 3 subtype: stage 3a (GFR 45-59) Diabetes mellitus, type II, insulin dependent E11.9; Z79.4 Anemia due to other cause, not classified D64.89 Anemia type: other cause Other causes of anemia: other cause, not classified Leukocytosis, unspecified type D72.829 Leukocytosis type: unspecified Cellulitis of great toe, left L03.032 Panlobular emphysema J43.1 COPD type: emphysema Emphysema type: panlobular Chronic hypoxic respiratory failure, on home oxygen therapy J96.11; Z99.81 Acute hypoxemic respiratory failure J96.01 Hypercapnic respiratory failure J96.92 Pneumonia J18.9
[2024-08-25] MEDS: insulin glargine 100 units/1 mL 10 UNIT SUBCUT (13:07)
[2024-08-25 16:44] LABS: Glucose Point of Care 261 mg/dL (70-110)
[2024-08-25] MEDS: atorvastatin 40 mg Tablet PO (17:30)
[2024-08-25] MEDS: budesonide 0.5 mg/2 mL Neb INHALATION (19:44)
--- NOTE | 2024-08-25 20:01 | P.PN_ITS ---
Subjective 2 Subjective: Patient seen bedside this evening. Denies any foot pain. Nursing staff have been applying dressing as ordered. Vitals/I&O/Wt Last Vital Signs Temp 98.4 F 08/25/24 15:32 Pulse 62 08/25/24 19:53 Resp 16 08/25/24 19:45 BP 101/58 08/25/24 15:32 Pulse Ox 96 08/25/24 19:45 O2 Del Method Nasal Cannula 08/25/24 19:45 O2 Flow Rate 3 08/25/24 19:45 FiO2 36 08/24/24 07:31 08/25/24 08/25/24 08/25/24 06:59 14:59 22:59 Intake Total 840 / 840 480 / 1320 Output Total 1150 / 3400 850 / 850 Balance -1150 / -2410 -10 / -10 480 / 470 Weight last 48 hrs Weight 172 lb 2.896 oz Weight 174 lb 2.643 oz Weight 180 lb Physical Exam 2 Narrative: GENERAL: Patient is alert and oriented ?3 and in no acute distress. The following is a focused bilateral lower extremity exam. VASCULAR: Dorsalis pedis palpable bilaterally. Posterior tibial arteries palpable. Capillary refill time less than 5 decreased pedal hair growth bilaterally. Seconds to the distal hallux bilaterally. Calf is supple and nontender proximally and distally. NEUROLOGICAL: Protective sensation diminished, tested with [place] monofilament to bilateral feet. DERMATOLOGICAL: Unstageable ulcer to the left great toe, patient did not tolerate debridement, ulceration measures 1.8 cm x 0.5 cm x 0.1 cm, hyperkeratotic rim and fibro eschar base without purulence or bogginess, no fluctuance, no proximal congenic streaking. No tendon or bone exposed. Ecchymosis to the dorsum of the right forefoot without wound. MUSCULOSKELETAL: Bilateral bunion. Tenderness at left great toe wound medially. No crepitus with palpation of adjacent soft tissues to the right distal medial forefoot. Tenderness at right forefoot second metatarsal neck. Muscle strength +5 in all 3 planes bilateral foot and ankle. Urinary Catheter Management: Huff: Cath Placed During This Visit: yes Reason for Continuing Indwelling Catheter: Other Urinary Catheter Date of Insertion: 08/24/24 Urinary Catheter Time of Insertion: 09:40 Data 08/25/24 02:52 08/25/24 02:52 Micro: Microbiology 08/24/24 13:14 Blood Culture - Preliminary Blood NEGATIVE TO DATE 08/24/24 06:08 Blood Culture - Preliminary Blood NEGATIVE TO DATE A&P Assessment and plan (1) Contusion of right foot: Right foot x-rays negative for acute osseous injury. [place] sclerosis evident on plain film x-ray. Qualifiers: Encounter type: initial encounter Qualified Code(s): S90.31XA - Contusion of right foot, initial encounter (2) Diabetes mellitus, type II, insulin dependent: (3) Non-pressure chronic ulcer of other part of right foot with fat layer exposed: Plan 84-year-old diabetic female with hyperglycemia presents with significant comorbidities and wound to the left great toe that is worsened since her last hospitalization. - X-ray left foot 3 views negative for osteomyelitis, foreign body consistent with needle adjacent to navicular bone was present on x-ray of the left foot as a comparison view March 29, 2023, clinically this does not correlate to wound or infection. As this is stable no intervention indicated during this hospitalization regards to foreign body. Erythema resolving since initiating IV antibiotics. Patient not tolerating bedside debridement due to pain and guarding for this reason recommending primary dressing of enzymatic debriding agent Santyl/collagenase to be applied 2 mm thickness or thickness of the nickel once daily with saline moistened gauze island dressing. Will continue to round daily to monitor wound of the left great toe. Recommend offloading with cam boot at left lower extremity, may be weightbearing with cam boot would require assistance for transfers due to instability would also require a walker. Recommend wound care clinic referral for follow-up outpatient after hospital discharge. PDMP PDMP Reviewed: Not Reviewed Attestations 2 Medical Necessity Statement*: Continued IV antibiotics Coding Level of Care Code Acute Code for Chg Fwd Diagnoses Contusion of right foot, initial encounter S90.31XA Encounter type: initial encounter Diabetes mellitus, type II, insulin dependent E11.9; Z79.4 Non-pressure chronic ulcer of other part of right foot with fat layer exposed L97.512
[2024-08-25 20:46] LABS: Glucose Point of Care 287 mg/dL (70-110)
[2024-08-25] MEDS: clopidogrel 75 mg Tablet PO (21:45)
[2024-08-26] VITALS (7 sets, daily range): BP systolic 107–136; BP diastolic 53–79; PULSE 53–59; RESP 15–24; TEMP 36.3–36.8; O2SAT 96–98
[2024-08-26 03:15] LABS: Basophils % 0.1 %; Hematocrit 31.6 % (36-47); Lymphocytes # 0.4 10^3/uL (0.8-4.8); Lymphocytes % 2.6 %; Mean Corpuscular HGB Conc 30.7 g/dL (30-55); Mean Corpuscular Hemoglobin 25.7 pg (27-33); Mean Corpuscular Volume 83.6 fl (85-98); Mean Platelet Volume 11.8 fL (7.4-10.4); Monocytes # 0.5 10^3/uL (0.2-0.9); Monocytes % 2.7 %; Neutrophils # 15.63 10^3/uL (1.8-7.7); Neutrophils % 94.1 %; Nucleated Red Blood Cells % 0 %; Platelet Count 282 10^3/cmm (157-399); Red Blood Count 3.78 10^6/uL (3.85-5.65); Red Cell Distribution Width 15.5 % (12.1-15.1)
[2024-08-26 03:37] LABS: Anion Gap 14.1 (5-19); Blood Urea Nitrogen 48 mg/dL (8-23); Calcium 8.6 mg/dL (8.5-10.5); Carbon Dioxide 32 mmol/L (22-29); Chloride 100 mmol/L (98-107); Creatinine Clr Calc Pharmacy 28.6312; Glucose 120 mg/dL (65-115); Magnesium 2.2 mg/dL (1.7-2.3); Osmolality Calculated 308 mOsm/kg (285-295); Potassium 4.1 mmol/L (3.5-5.1); Sodium 142 mmol/L (136-145)
[2024-08-26 06:25] LABS: Glucose Point of Care 216 mg/dL (70-110)
[2024-08-26] MEDS: ipratropium-albuterol 3 mL Neb INHALATION ×2 (07:49→11:18)
[2024-08-26] MEDS: budesonide 0.5 mg/2 mL Neb INHALATION (07:49)
[2024-08-26] MEDS: insulin lispro 100 unit/1 mL SUBCUT (09:03)
[2024-08-26] MEDS: amiodarone 200 mg Tablet PO (09:03)
[2024-08-26] MEDS: insulin glargine 100 units/1 mL 30 UNIT SUBCUT (09:03)
[2024-08-26] MEDS: isosorbide mononitrate ER 60 mg Tablet PO (09:04)
[2024-08-26] MEDS: aspirin 81 mg EC Tablet PO (09:04)
[2024-08-26] MEDS: methylPREDNISolone sod succ 40 mg/mL INJ IVP (09:04)
[2024-08-26] MEDS: heparin 5,000 unit/mL INJ 1 mL 5000 UNIT SUBCUT (09:04)
[2024-08-26] MEDS: ranolazine (12HR) 500 mg Tablet 1000 MG PO (09:04)
[2024-08-26] MEDS: FUROsemide 10 mg/mL SDV 4mL 40 MG IVP (09:04)
[2024-08-26] MEDS: metoprolol tartrate 25 mg Tablet 12.5 MG PO (09:13)
--- NOTE | 2024-08-26 10:48 | PC.NURSE ---
Patient's family here x3. Heart rate is dropping again. It is currently 38. BP 97/48. Resp-10 sats are 89%. Informed Dr Morse.
--- NOTE | 2024-08-26 10:58 | PC.CHAP ---
Pastoral Care Encounter/Spiritual Assessment Type of Contact [] Declined motorized squad lieutenant visit [] Patient/Family/Request visit [] Outpatient visit [] Follow-up visit [] Physician referral [] Code/Alert [x] Routine visit [] Staff referral [] Actively dying [] Patient sleeping [] Family support [] [] Out of room [] Palliative care [] [] Receiving care in room [] Pre-surgical visit [] Trauma [] Long length of stay [] ICU visit [] Other: Relational/Emotional Strength [] Patient feels connected with others/family/visitors/staff [] Distress [] Loneliness/isolation [] Abandonment Spirituality of Patient [x] Person of [place] [] Attends Jewish of their [place] [x] Believes in Prayer [] Reads Bible or Rastafarian materials [] There are Spiritual issues 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 addressed 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 [x] Prayer [x] Active listening [] Non-anxious presence [] Spiritual/emotional support [] Crisis/trauma care [] Spiritual counseling [] Bereavement support [] Provided bereavement packet [x] Provided Bible/devotional materials [] Provided toy/stuffed animal, coloring book to patient or family member [] Provided Communion [] Anointing/[place] [] Salvation [x] Completed spiritual assessment [] Other: Impact on Illness or Injury [] Angry [] Fearful [] Anxious [] Often cries [] Exhaustion [] Unable to work [] Unable to attend taoist [] Unable to walk/stand [] Unable to read [] Unable to drive [] Unable to eat/drink [] Unable to sleep [] Unable to be with family [] Patient intubated [] Other: Summary Time spent with patient 5 min
[2024-08-26 11:55] LABS: Glucose Point of Care 221 mg/dL (70-110)
--- NOTE | 2024-08-26 12:49 | PC.NURSE ---
Patient to be discharged to home. Instruction provided regarding follow up needs no medication changes. Provided instruction regarding heart failure with a stoplight. Patient verbalized complete understanding. Son at bedside. Huff catheter removed. IV removed. All intact. Patient denies pain or needs. Patient taken by wheelchair to private vehicle. Son to provide transportation.
--- NOTE | 2024-08-26 18:41 | PM.DCS ---
Discharge Providers Date of Admission: 08/24/24 07:58 Date of Discharge: August 26, 2024 Attending Provider at Admission: Kezia Scott MD Attending Provider at Discharge: Tara Munguia MD Primary Care Provider: Antonio Delgado MD Diagnoses at Discharge Discharge Diagnosis (1) Contusion of right foot: Status: Acute Qualifiers: Encounter type: initial encounter Qualified Code(s): S90.31XA - Contusion of right foot, initial encounter (2) Diabetes mellitus, type II, insulin dependent: Status: Chronic (3) Non-pressure chronic ulcer of other part of right foot with fat layer exposed: Status: Acute Reason for Visit Reason for Visit: RESP. DISTRESS Brief History: Sally Henderson is a 84 year old female With past medical history of CHF, coronary disease, diabetes mellitus, CKD, paroxysmal atrial fibrillation, was admitted to the hospital on August 24, 2024 after presenting with shortness of breath. She had been noncompliant with Lasix at home. She needed to start BiPAP ventilation upon admission. Her recent history is significant for respiratory failure requiring intubation 1 month ago related to CHF exacerbation. She was diagnosed with acute on chronic diastolic heart failure and received diuresis with IV Lasix. She was placed on BiPAP respiratory support and is encouraged to use it at home as well. She was saturating well on 3 L/min supplemental O2 which is her baseline. For COPD exacerbation she received IV steroids and scheduled nebulization. CTA of the chest was negative for PE. Showed some atelectasis per personal interpretation. Patient was afebrile. Procalcitonin was negative therefore less likely to be pneumonia. Podiatry was consulted due to concern for persisting left foot ulcer. Discussed with Dr. Renee . X-ray was negative for osteomyelitis. Overall impression is that of a nonpressure chronic ulcer in a diabetic, possibly sustained after a contusion of the foot. 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 Clinically does not correlate with the size of the ulcer. Recommendation is that patient follow-up with wound care. She is additionally counseled to adhere to wearing cam boot for offloading, however patient is grossly noncompliant with this recommendation. She denied at multiple times during this hospitalization. No gross signs of cellulitis were encountered. Antibiotics were discontinued at discharge. Patient will require good wound care and has been set up with the wound care clinic. No urgent surgical intervention was recommended at this time. Patient requested a discharge to home since her respiratory status is back to her baseline. She is encouraged compliance with Lasix at the time of discharge. Physical Exam Narrative: General: No acute distress, AO x3 HEENT: PERRLA, pupils bilaterally equal and reactive, pallors not present Chest: Normal vesicular breath sounds, no added sounds, equal good air entry bilaterally CVS: S1-S2 regular, no murmurs, no tachycardia, no gallops, no rubs Abdomen: Soft, nontender, no organomegaly, bowel sounds present Neuro: No focal deficits, no facial deformity, AO x3, power 5/5 in all limbs Urinary Catheter Management: Huff: Cath Placed During This Visit: yes, but has since been removed by the nurse Reason for Continuing Indwelling Catheter: Acute Urinary Retention or Obstruction Urinary Catheter Date of Insertion: 08/24/24 Urinary Catheter Time of Insertion: 09:40 Date Urinary Catheter Removed: 08/26/24 Time Urinary Catheter Discontinued: 12:43 Discharge Data Studies Completed and Pending Completed Studies During Hospitalization Category Date Time Status CT angio chest PE protcl [id number] Stat Cat Scan 08/24/24 05:29 Completed XR chest 1V portable [id number] Stat Exams 08/24/24 02:14 Completed XR foot LT min 3V* [id number] Routine Exams 08/25/24 10:58 Completed XR foot RT min 3V* [id number] Stat Exams 08/24/24 05:21 Completed CV. echo limited [id number] Routine Ultrasound 08/24/24 12:18 Completed Pending at discharge Category Date Time Status Blood Culture Stat Lab 08/24/24 13:14 Results Radiology Impressions Chest X-Ray 08/24/24 02:14 IMPRESSION: Mild prominence of the cardiac silhouette, indistinctness of pulmonary vasculature and increased hazy and linear opacities in the mid lower jayme thoraces, findings suggesting pulmonary edema. Chest CTA 08/24/24 05:29 IMPRESSION: 1. There is no evidence for pulmonary emboli. 2. There is mild prominence of the pulmonary vasculature, hazy and linear opacities present in the lower jayme thoraces, findings could represent pulmonary edema. 3. Patchy consolidation is seen in the posterior costophrenic recess and some strandy opacities are seen superimposed over hemidiaphragms. These findings could represent atelectasis although basilar infiltrates pneumonia can not be entirely excluded. Foot X-Ray 08/25/24 10:58 IMPRESSION: 1. No definite radiographic evidence of osteomyelitis. 2. Osteoarthrosis. 3. Needle projecting over the tarsal navicular on two views. Please correlate clinically. Laboratory Results WBC 16.60 10^3/uL (3.29-11.43) H 08/26/24 02:19 RBC 3.78 10^6/uL (3.85-5.65) L 08/26/24 02:19 Hgb 9.70 g/dL (11.27-16.99) L 08/26/24 02:19 Hct 31.6 % (36-47) L 08/26/24 02:19 MCV 83.6 fl (85-98) L 08/26/24 02:19 MCH 25.7 pg (27-33) L 08/26/24 02:19 MCHC 30.7 g/dL (30-55) 08/26/24 02:19 RDW 15.5 % (12.1-15.1) H 08/26/24 02:19 Plt Count 282 10^3/cmm (157-399) 08/26/24 02:19 MPV 11.8 fL (7.4-10.4) H 08/26/24 02:19 Neut % (Auto) 94.1 % 08/26/24 02:19 Lymph % (Auto) 2.6 % 08/26/24 02:19 Wythe % (Auto) 2.7 % 08/26/24 02:19 Eos % (Auto) 0.0 % 08/26/24 02:19 Baso % (Auto) 0.1 % 08/26/24 02:19 Neut # (Auto) 15.63 10^3/uL (1.8-7.7) H 08/26/24 02:19 Lymph # (Auto) 0.4 10^3/uL (0.8-4.8) L 08/26/24 02:19 Wythe # (Auto) 0.5 10^3/uL (0.2-0.9) 08/26/24 02:19 Eos # (Auto) 0.0 10^3/uL (0.0-0.8) 08/26/24 02:19 Baso # (Auto) 0.0 10^3/uL (0.0-0.1) 08/26/24 02:19 Nucleated RBC % (auto) 0 % 08/26/24 02:19 Nucleated RBCs # 0.0 /100WBC 08/26/24 02:19 ESR 35 mm/hr (0-15) H 08/24/24 13:14 PT 13.90 SECONDS (12.1-14.9) 08/24/24 04:12 INR 1.00 (0.8-1.2) 08/24/24 04:12 D-Dimer 0.68 ug/mLFEU (0-0.59) H 08/24/24 04:12 Specimen Type Arterial 08/24/24 08:00 Sample Site Brachial, right 08/24/24 08:00 ABG pH 7.38 (7.35-7.45) 08/24/24 08:00 ABG pCO2 50.6 mmHg (35-45) H 08/24/24 08:00 ABG pO2 90.9 mmHg (80.0-100.0) 08/24/24 08:00 ABG PO2/FiO2 Ratio 284 08/24/24 08:00 ABG HCO3 30.0 mmol/L (22-26) H 08/24/24 08:00 ABG O2 Saturation 97.4 08/24/24 08:00 ABG Base Excess 4.1 mmol/L (-2.0-2.0) H 08/24/24 08:00 Tanner Test N/a 08/24/24 08:00 A-a O2 Gradient 9.9 mmHg (5-10) 08/24/24 08:00 Hematocrit 31.3 % (37-47) L 08/24/24 08:00 Hgb O2 Saturation 95.3 % (95-100) 08/24/24 08:00 Carboxyhemoglobin 1.0 %THgb (0.4-20.1) 08/24/24 08:00 Methemoglobin 1.1 % (0.4-1.5) 08/24/24 08:00 Total Hemoglobin 10.2 g/dL (12-16) L 08/24/24 08:00 Sodium 141.0 mmol/L (131-143) 08/24/24 08:00 Potassium 4.1 mmol/L (3.5-5.0) 08/24/24 08:00 Glucose 313.0 mg/dL (70-115) H 08/24/24 08:00 Ionized Calcium 1.2 mmol/L (1.1-1.4) 08/24/24 08:00 O2 Delivery Device Bipap 08/24/24 08:00 FiO2 32.0 % 08/24/24 08:00 PEEP 12.0 cmH20 08/24/24 02:52 Antitank [employer] ID Broma 08/24/24 08:00 Sodium 142 mmol/L (136-145) 08/26/24 02:19 Potassium 4.1 mmol/L (3.5-5.1) 08/26/24 02:19 Chloride 100 mmol/L (98-107) 08/26/24 02:19 Carbon Dioxide 32 mmol/L (22-29) H 08/26/24 02:19 Anion Gap 14.1 (5-19) 08/26/24 02:19 BUN 48 mg/dL (8-23) H 08/26/24 02:19 Creatinine 1.4 mg/dL (0.5-0.9) H 08/26/24 02:19 GFR Calculation Not Reportable 08/26/24 02:19 Glucose 120 mg/dL (65-115) H 08/26/24 02:19 POC Glucose 221 mg/dL (70-110) H 08/26/24 11:28 Calculated Osmolality 308 mOsm/kg (285-295) H 08/26/24 02:19 Lactic Acid 3.1 mmol/L (0.5-2.2) H 08/24/24 13:14 Lactic Acid (Sepsis) 2.4 mmol/L (0.5-2.2) H 08/24/24 16:24 Calcium 8.6 mg/dL (8.5-10.5) 08/26/24 02:19 Magnesium 2.2 mg/dL (1.7-2.3) 08/26/24 02:19 Total Bilirubin 0.2 mg/dL (0.15-1.2) 08/25/24 02:52 AST 18 U/L (0-32) 08/25/24 02:52 ALT 25 U/L (0-33) 08/25/24 02:52 Alkaline Phosphatase 108 U/L (35-105) H 08/25/24 02:52 Troponin T Baseline 38 ng/L (0-10) H 08/24/24 04:12 Troponin T 120 Minute 34.56 ng/L (0-10) H 08/24/24 06:08 Delta Troponin T -3.44 ABS# (0-10) L 08/24/24 06:08 Troponin T Hi Sens 6Hr 36.93 ng/L (0-10) H 08/24/24 10:22 Troponin T Hi Sens 6Hr Delta -1.07 ng/L (0-12) L 08/24/24 10:22 C-Reactive Protein 11.7 mg/L (0.0-4.9) H 08/24/24 10:22 NT-Pro-B Natriuret Pep 55606 pg/mL (0-450) H 08/24/24 04:12 Total Protein 6.5 g/dL (6.6-8.7) L 08/25/24 02:52 Albumin 3.6 g/dL (3.5-5.2) 08/25/24 02:52 Globulin 2.9 g/dL (1.3-4.6) 08/25/24 02:52 Procalcitonin 0.02 ng/mL (0-0.5) 08/24/24 04:12 Urine Color Yellow (Yellow) 08/24/24 07:47 Urine Appearance Clear (CLEAR) 08/24/24 07:47 Urine pH 5 (5-7) 08/24/24 07:47 Ur Specific [place] 1.010 (1.005-1.030) 08/24/24 07:47 Urine Protein Trace (Negative) H 08/24/24 07:47 Urine Glucose (UA) 4+ (Normal) H 08/24/24 07:47 Urine Ketones Negative (Negative) 08/24/24 07:47 Urine Blood Neg (Negative) 08/24/24 07:47 Urine Nitrate Negative (Negative) 08/24/24 07:47 Urine Bilirubin Neg (Negative) 08/24/24 07:47 Urine Urobilinogen Neg mg/dL (Negative) 08/24/24 07:47 Ur Leukocyte Esterase Negative (Negative) 08/24/24 07:47 Urine RBC 0-2 /hpf (0-2) 08/24/24 07:47 Urine WBC 0-5 /hpf (0-5) 08/24/24 07:47 Ur Squamous Epith Cells 0-5 /hpf (0-5) 08/24/24 07:47 Amorphous Sediment Not Reportable 08/24/24 07:47 Urine Bacteria None seen /hpf (NONE) 08/24/24 07:47 Hyaline Casts 0.40 /lpf 08/24/24 07:47 Urine Yeast Trace /hpf 08/24/24 07:47 Influenza A (PCR) Negative (Negative) 08/24/24 04:17 Influenza Type B (PCR) Negative (Negative) 08/24/24 04:17 RSV (PCR) Negative (Negative) 08/24/24 04:17 SARS-CoV-2 (PCR) Negative (Negative) 08/24/24 04:17 Vitals Last Vital Signs Temp 97.3 F L 08/26/24 08:00 Pulse 53 L 08/26/24 13:09 Resp 18 08/26/24 13:09 BP 136/79 08/26/24 13:09 Pulse Ox 97 08/26/24 13:09 O2 Del Method Nasal Cannula 08/26/24 11:18 O2 Flow Rate 3 08/26/24 11:18 FiO2 36 08/24/24 07:31 Discharge Plan Discharge Patient Disposition: Home Condition: Stable Prescriptions: Continued clopidogrel 75 mg tablet 75 mg PO BEDTIME Qty: 90 3RF Entresto 24-26 mg tablet 1 tab PO BID Qty: 60 1RF nitroglycerin 0.4 mg tablet, sublingual 0.4 mg buccal PRN PRN (Reason: Chest Pain) furosemide 40 mg tablet 40 mg PO BID@0800,1400 30 Days Qty: 60 0RF isosorbide mononitrate 60 mg tablet extended release 24 hr 60 mg PO DAILY insulin aspart U-100 [Novolog FlexPen U-100 Insulin] 100 unit/mL (3 mL) insulin pen See Rx Instructions .ROUTE .COMPLEX Qty: 15 0RF Rx Instructions: Inject 3 times daily, subcut, after meals, based on sliding scale provided insulin degludec [Tresiba FlexTouch U-200] 200 unit/mL (3 mL) insulin pen 20 unit SUBCUT DAILY Qty: 9 0RF Triple Antibiotic 3.5mg-400 unit- 5,000 unit/gram Ointment 1 applic topical BID Qty: 30 0RF aspirin 81 mg Tablet,Delayed Release (Dr/Ec) 81 mg PO DAILY Qty: 30 0RF doxycycline monohydrate 100 mg Tablet 100 mg PO BID Qty: 8 0RF metoprolol tartrate 25 mg Tablet 12.5 mg PO BID@0900,2100 Qty: 60 0RF potassium chloride 20 mEq tablet,ER particles/crystals 10 meq PO DAILY Qty: 30 0RF ranolazine 500 mg tablet extended release 12 hr 1,000 mg PO BID Qty: 120 0RF losartan 25 mg tablet 25 mg PO DAILY Qty: 30 0RF atorvastatin 40 mg tablet 40 mg PO QPM amiodarone 200 mg tablet 200 mg PO DAILY tramadol 50 mg tablet 50 mg PO Q6H PRN (Reason: Pain) (DME) nebulizer and compressor [[id number] Nebulizer] Device See Rx Instructions .Route Qty: 1 0RF Rx Instructions: As directed budesonide-formoterol [Symbicort] 80-4.5 mcg/actuation HFA aerosol inhaler 1 inh inhalation BID Qty: 10.2 0RF Discharge Orders: Discharge Order (Routine); Ordered 08/26/24 Ordered By: Tara Munguia Referrals: Jon Plummer FNP [Nurse Practitioner] - 08/29/24 9:00 am Antonio Delgado MD [Primary Care Provider] - 08/29/24 1:00 pm ( ) Discharge Diet: Diabetic Discharge Activity: Limit activity as instructed Patient Instructions: Furosemide (By mouth) (Lasix), Heart Failure (DC), CHF Stoplight, Opioid Safety Assessment: Please wear your cam boot as recommended. F/up with podiatry clinic Discharge Attestations Time Spent in Discharge Care*: greater than 30 min Status at Discharge: Cognitive status at discharge: cognitively intact, Behavioral status at discharge: cooperative, Quality Metrics Clinical Quality Measures [ No reported AMI, CVA or VTE this stay] Coding Level of Care Code Acute Code for Chg Fwd Diagnoses Contusion of right foot, initial encounter S90.31XA Encounter type: initial encounter Diabetes mellitus, type II, insulin dependent E11.9; Z79.4 Non-pressure chronic ulcer of other part of right foot with fat layer exposed L97.512
== END 2024-08-26 13:11 | disposition home or self-care (01) | DRG 291 ==
LOC: ER 08:02 → CSU 08:08
PROVIDERS: Emergency Medicine; Admitting Provider Internal Medicine; Emergency Provider Emergency Medicine; PCP Family Medicine; Visit Provider Student in an Organized Health Care Education/Training Program
DX: I13.0 Hypertensive heart and chronic kidney disease with heart failure and stage 1 through stage 4 chronic kidney disease, or unspecified chronic kidney disease (principal); I50.33 Acute on chronic diastolic (congestive) heart failure; J96.21 Acute and chronic respiratory failure with hypoxia; J96.22 Acute and chronic respiratory failure with hypercapnia; I96 Gangrene, not elsewhere classified; E87.20 Acidosis, unspecified; E11.621 Type 2 diabetes mellitus with foot ulcer; L97.522 Non-pressure chronic ulcer of other part of left foot with fat layer exposed; E11.22 Type 2 diabetes mellitus with diabetic chronic kidney disease; N18.31 Chronic kidney disease, stage 3a; Z87.891 Personal history of nicotine dependence; Z79.4 Long term (current) use of insulin; S90.32XS Contusion of left foot, sequela; X58.XXXS Exposure to other specified factors, sequela; I25.10 Atherosclerotic heart disease of native coronary artery without angina pectoris; I48.0 Paroxysmal atrial fibrillation; T50.1X6A Underdosing of loop [high-ceiling] diuretics, initial encounter; Z91.148 Patient's other noncompliance with medication regimen for other reason; Y92.9 Unspecified place or not applicable; E78.5 Hyperlipidemia, unspecified; D64.9 Anemia, unspecified; J43.1 Panlobular emphysema; Z99.81 Dependence on supplemental oxygen; D72.829 Elevated white blood cell count, unspecified; M79.5 Residual foreign body in soft tissue; E11.51 Type 2 diabetes mellitus with diabetic peripheral angiopathy without gangrene; I25.2 Old myocardial infarction; Z95.1 Presence of aortocoronary bypass graft; Z79.82 Long term (current) use of aspirin; Z79.02 Long term (current) use of antithrombotics/antiplatelets
CPT/HCPCS: 36415; 36416; 36600; 51702; 71045; 71275; 73630; 80048; 80051; 80053; 81001; 82330; 82805; 82962; 83605; 83735; 83880; 84145; 84484; 85025; 85378; 85610; 85651; 86140; 87040; 87637; 93005; 93308; 94640; 94660; 94664; 96372; 96374; 96375; 96376; 97161; 99291; A9270; J1171; J1644; J1815; J1940; J1956; J2270; J2919; J7613; J7626; J9999; L4361

== ENCOUNTER 2024-09-18 19:40 | Emergency (ER) | payer MEDICARE, SELFPAY ==
[2024-09-18 19:42] VITALS: BP 100/57; PULSE 77; RESP 19; TEMP 36.9; O2SAT 94; BMI 31.2
[2024-09-18 19:54] VITALS: BP 100/57; PULSE 78; RESP 27; O2SAT 94
--- NOTE | 2024-09-18 19:55 | ECG_ITS ---
[facility] Test Date: 2024-09-18 Pat Name: Sally Henderson Department: Room: Gender: Female Advanced Practice Professional: : 1940 Requested By: Jordan Bean Order Number: [id number] Leonora MD: Angela Lopez M.D. Measurements Intervals [place] Rate: 78 P: 66 MS: 163 QRS: -90 QRSD: 134 T: 63 QT: 421 QTc: 480 Interpretive Statements SINUS RHYTHM LEFT AXIS DEVIATION [QRS AXIS < -30] RIGHT BUNDLE BRANCH BLOCK [120+ ms QRS DURATION, UPRIGHT V1, 40+ ms S IN I/aVL/V4/V5/V6] ST DEPRESSION, CONSIDER SUBENDOCARDIAL INJURY [0.1+ mV ST DEPRESSION] Compared to ECG 08/24/2024 10:21:28 Right bundle-branch block now present ST (T wave) deviation now present Intraventricular conduction delay no longer present T-wave abnormality no longer present Possible ischemia no longer present Electronically Signed On 09-18-2024 23:25:40 CDT by Angela Lopez M.D. [email or web address]
--- NOTE | 2024-09-18 19:55 | XRR_ITS ---
PROCEDURE INFORMATION: Exam: XR Chest Exam date and time: 09/18/2024 8:06 PM Age: 84 years old Clinical indication: Dyspnea; Prior surgery; Surgery date: 6+ months; Surgery type: Cabg TECHNIQUE: Imaging protocol: Radiologic exam of the chest. Views: 1 view. COMPARISON: CT angio chest PE prot [id number] 08/24/2024 5:52 AM FINDINGS: Lungs: Mild to moderate vascular congestion. Patchy basilar opacities may be due to confluence congestion and pleural effusion although underlying atelectasis or pneumonitis may be considered in the appropriate clinical setting. Pleural spaces: Presumed small pleural effusions, right greater than left. Heart/Mediastinum: Borderline cardiomegaly. Bones/joints: Multiple sternotomy wires. Moderate bilateral glenohumeral arthrosis and multilevel thoracolumbar spondylosis. Remote fracture deformity of the posterolateral left 4th-6th ribs. XR/XR chest 1V portable [id number] IMPRESSION: 1. Findings consistent with CHF/volume overload again demonstrated. 2. Similar basilar opacities likely due to underlying effusions , vascular congestion and atelectasis although superimposed pneumonitis may be considered in the appropriate clinical setting.
[2024-09-18 20:08] LABS: Basophils % 0.1 %; Eosinophils # 0.1 10^3/uL (0.0-0.8); Eosinophils % 0.7 %; Hematocrit 31.5 % (36-47); Lymphocytes # 1.1 10^3/uL (0.8-4.8); Lymphocytes % 9.5 %; Mean Corpuscular HGB Conc 29.8 g/dL (30-55); Mean Corpuscular Hemoglobin 25.2 pg (27-33); Mean Corpuscular Volume 84.5 fl (85-98); Mean Platelet Volume 11.8 fL (7.4-10.4); Monocytes # 1.2 10^3/uL (0.2-0.9); Monocytes % 10.3 %; Neutrophils # 9.52 10^3/uL (1.8-7.7); Nucleated Red Blood Cells % 0 %; Platelet Count 223 10^3/cmm (157-399); Red Blood Count 3.73 10^6/uL (3.85-5.65); Red Cell Distribution Width 16.6 % (12.1-15.1); White Blood Count 12.05 10^3/uL (3.29-11.43)
[2024-09-18 20:28] LABS: Troponin(5th) Baseline 32 ng/L (0-10)
[2024-09-18 20:37] LABS: Alanine Aminotransferase 21 U/L (0-33); Albumin Level 3.5 g/dL (3.5-5.2); Alkaline Phosphatase 106 U/L (35-105); Anion Gap 16.6 (5-19); Aspartate Amino Transferase 15 U/L (0-32); Blood Urea Nitrogen 35 mg/dL (8-23); Calcium 8.5 mg/dL (8.5-10.5); Carbon Dioxide 27 mmol/L (22-29); Chloride 96 mmol/L (98-107); Globulin 2.4 g/dL (1.3-4.6); Glucose 440 mg/dL (65-115); Osmolality Calculated 307 mOsm/kg (285-295); Potassium 4.6 mmol/L (3.5-5.1); Sodium 135 mmol/L (136-145); Total Bilirubin 0.4 mg/dL (0.15-1.2); Total Protein 5.9 g/dL (6.6-8.7)
[2024-09-18 21:15] VITALS: BP 114/60; PULSE 76; RESP 25; O2SAT 94
--- NOTE | 2024-09-18 21:19 | PC.NURSE ---
AT 2118, NURSE MADE PROVIDER AWARE THAT PT HAD BEEN HYPOTENSIVE AND HER BP WAS CURRENTLY 114/60, DR BERNARD GAVE VERBAL ORDER TO ADMINISTER LASIX
--- NOTE | 2024-09-18 21:28 | PC.NURSE ---
PT TOLD NURSE, IF I CANT GET A DAMN CATHETER I AM NOT TAKING THAT! (LASIX) MED NOT ADMINISTERED
--- NOTE | 2024-09-18 21:34 | ED_ITS ---
HPI - SOB/Dyspnea 2 General: Chief Complaint: Shortness of Breath/Dyspnea Stated Complaint: SOB Time Seen by Provider: 09/18/24 19:47 History of Present Illness: HPI Narrative: 84-year-old female with history of COPD and CHF presents emerged part with complaints of shortness of breath. EMS gave 2 breathing treatments and 125 mg IV Solu-Medrol on the way to the hospital. She is normally on 2 to 3 L of oxygen. She states that by the time she gets here she is feeling much better and kind of feels at her baseline. She denies having any chest pain. Pulse ox is 94% on 3 L. Related Data Home Medications ?Medication ?Instructions ?Recorded ?Confirmed nitroglycerin 0.4 mg sublingual 0.4 mg buccal PRN PRN Chest Pain 04/10/24 08/24/24 tablet isosorbide mononitrate 60 mg 60 mg PO DAILY 06/07/24 0 08/24/24 tablet,extended release 24 hr amiodarone 200 mg tablet 200 mg PO DAILY 07/18/2405/08 atorvastatin 40 mg tablet 40 mg PO QPM 07/18/24 tramadol 50 mg tablet 50 mg PO Q6H PRN Pain 08/24/24 Previous Rx's ?Medication ?Instructions ?Recorded clopidogrel 75 mg tablet 75 mg PO BEDTIME #90 tabs furosemide 40 mg tablet 40 mg PO BID@0800,1400 30 da ys #60 05/28/24 tabs insulin aspart U-100 100 unit/mL See Rx Instructions . Route 06/11/24 (3 mL) subcutaneous pen (Novolog .COMPLEX #15 mL FlexPen U-100 Insulin aspart) insulin degludec 200 unit/mL (3 20 unit (0.1 mL) SUBCU T DAILY #9 mL 06/11/24 mL) subcutaneous pen (Tresiba FlexTouch U-200 insulin) budesonide-formoterol HFA 80 1 inh inhalation BID #10. 2 grams 07/23/24 mcg-4.5 mcg/actuation aerosol inhaler (Symbicort) nebulizer and compressor ([id number] #1 ea 07/23/24 Nebulizer) sacubitril 24 mg-valsartan 26 mg 1 tab PO BID #60 tabs 03/13/25 tablet (Entresto) aspirin 81 mg tablet,delayed 81 mg PO DAILY #30 tabs 0 08/07/24 release doxycycline monohydrate 100 mg 100 mg PO BID #8 tabs 0 08/07/24 tablet metoprolol tartrate 25 mg tablet 12.5 mg (1/2 x 25 mg) PO 08/07/24 BID@0900,2100 #60 tabs neomycin-bacitracn Zn-polymyx 3.5 1 applic topical BID #30 grams 08/07/24 mg-400 unit-5,000 unit/gram top oint (Triple Antibiotic) potassium chloride 20 mEq 10 meq (1/2 x 20 mEq) PO GLENNA LY #30 08/07/24 tablet,extended release(part/cryst) tabs ranolazine 500 mg tablet,extended 1,000 mg (2 x 500 mg ) PO BID #120 08/07/24 release,12 hr tabs losartan 25 mg tablet 25 mg PO DAILY #30 tabs 07/14 12/06 Allergies Allergy/AdvReac Type Severity Reaction Status Date / Time No Known Allergies Allergy Verified 09/18/24 19:54 PFSH ED 2 PFSH: Medical History Dyslipidemia Essential (primary) hypertension COPD (chronic obstructive pulmonary disease) Chronic hypoxic respiratory failure, on home oxygen therapy Diabetes mellitus, type II, insulin dependent CAD (coronary artery disease) Paroxysmal A-fib CKD (chronic kidney disease) CHF (congestive heart failure) Respiratory arrest has required intubation Non-STEMI (non-ST elevated myocardial infarction) Contrast-induced nephropathy Surgical History Hx of hysterectomy Hx of CABG Family History Unknown No problems noted. Social History Smoking and tobacco/nicotine status: former use of tobacco/nicotine Alcohol intake: never Substance/Drug Use: never Physical Exam 2 Const: COMMON NORMALS: no acute distress, average body habitus, patient oriented x3, no limitations, healthy appearing, alert and well nourished HENMT: COMMON NORMALS: normocephalic, atraumatic, hearing grossly normal bilaterally, external ears normal, EAC's normal, TM's normal bilaterally, Normal external nose present, Normal nasal mucous membranes and turbinates present, moist oral mucous membranes, oropharynx normal, dentition normal and gingiva normal HEAD & SCALP: normocephalic and atraumatic NOSE: Normal external nose present and Normal nasal mucous membranes and turbinates present E XTERNAL EAR: Yes external ears normal EXTERNAL AUDITORY CANAL: EAC's normal TYMPANIC MEMBRANE: TM's normal bilaterally Neck/C-Spine: COMMON NORMALS: no JVD Resp: COMMON NORMALS: normal respiratory effort, No retractions, No use of accessory muscles, clear to auscultation bilaterally and percussion normal A USCULTATION: clear to auscultation bilaterally PERCUSSION: percussion normal Cardio: COMMON NORMALS: no JVD, regular rate, regular rhythm, S1 normal heart sound present, S2 normal heart sound present, No gallops present (Cardio), No clicks present (Cardio), No murmurs present (Cardio), No rub (Cardio) and Peripheral pulses 2+ throughout RATE: regular rate RHYTHM: regular rhythm HEART SOUNDS: S1 normal heart sound present and S2 normal heart sound present PERIPHERAL PULSES: Peripheral pulses 2+ throughout OTHER: Mild nonpitting edema bilateral lower extremities GI: COMMON NORMALS: Normal to inspection, nondistended, normoactive bowel sounds present, Soft to palpation, non-tender, No hepatosplenomegaly present, no masses and no bruits PALPATION: Yes Soft to palpation and Yes No hepatosplenomegaly present Neuro: COMMON NORMALS: patient oriented x3 SENSORIUM/ORIENTATION: Yes alert Course 2 Vital Signs: Vital signs: Vital Signs Temperature 98.4 F 09/18/24 19:42 Pulse Rate 73 09/18/24 22:18 Respiratory Rate 16 09/18/24 22:18 Blood Pressure 127/49 09/18/24 22:18 Pulse Oximetry 92 09/18/24 22:18 Oxygen Delivery Me thod Nasal Cannula 09/18/24 22:18 Oxygen Flow Rate 3 09/18/24 22:18 MDM - SOB/Dyspnea Medical Decision Making Patient presents after 45 minutes of shortness of breath at home. She is normally on 2 to 3 L of oxygen at home. She did receive 2 breathing treatments and Solu-Medrol prior to arrival by EMS and states that her breathing is now much better and she is back to her baseline. She does have some mild pitting edema and her chest x-ray does appear to be has some fluid overload. I discussed with patient that we should give her some IV Lasix here however she refuses because she does not want to have to go to the bathroom. Patient is not hypoxic and in no respiratory distress. Initial troponin mildly elevated but patient has no chest pain. EKG with nonspecific ST and T wave changes. Does have some mild ST depression but this seems consistent with her previous EKGs. Patient's pulse ox is 95% on 3 L which is her baseline. Patient does not have any wheezing or respiratory distress. Discussed with patient to increase her Lasix for the next 3 to 4 days and to return to emergency department if symptoms worsen. Lab Data 09/18/24 20:01 09/18/24 20:01 Labs/Radiology: Radiology Impressions Chest X-Ray 09/18/24 19:55 IMPRESSION: 1. Findings consistent with CHF/volume overload again demonstrated. 2. Similar basilar opacities likely due to underlying effusions , vascular congestion and atelectasis although superimposed pneumonitis may be considered in the appropriate clinical setting. Laboratory Results WBC 12.05 10^3/uL (3.29-11.43) H 09/18/24 20: RBC 3.73 10^6/uL (3.85-5.65) L 09/18/24 20: Hgb 9.40 g/dL (11.27-16.99) L 09/18/24 20: Hct 31.5 % (36-47) L 09/18/24 20: MCV 84.5 fl (85-98) L 09/18/24 20: MCH 25.2 pg (27-33) L 09/18/24 20: MCHC 29.8 g/dL (30-55) L 09/18/24 20: RDW 16.6 % (12.1-15.1) H 09/18/24 20: Plt Count 223 10^3/cmm (157-399) 09/18/24 20: MPV 11.8 fL (7.4-10.4) H 09/18/24 20: Neut % (Auto) 79.0 % 09/18/24 20: Lymph % (Auto) 9.5 % 09/18/24 20:01 [place] % (Auto) 10.3 % 09/18/24 20:01 Eos % (Auto) 0.7 % 09/18/24 20:01 Baso % (Auto) 0.1 % 09/18/24 20:01 Neut # (Auto) 9.52 10^3/uL (1.8-7.7) H 09/18/24 20:01 Lymph # (Auto) 1.1 10^3/uL (0.8-4.8) 09/18/24 20:01 [place] # (Auto) 1.2 10^3/uL (0.2-0.9) H 09/18/24 20:01 Eos # (Auto) 0.1 10^3/uL (0.0-0.8) 09/18/24 20:01 Baso # (Auto) 0.0 10^3/uL (0.0-0.1) 09/18/24 20:01 Nucleated RBC % (auto) 0 % 09/18/24 20:01 Nucleated RBCs # 0.0 /100WBC 09/18/24 20:01 Sodium 135 mmol/L (136-145) L 09/18/24 20:01 Potassium 4.6 mmol/L (3.5-5.1) 09/18/24 20:01 Chloride 96 mmol/L (98-107) L 09/18/24 20: Carbon Dioxide 27 mmol/L (22-29) 09/18/24 20: Anion Gap 16.6 (5-19) 09/18/24 20:01 BUN 35 mg/dL (8-23) H 09/18/24 20:01 Creatinine 1.1 mg/dL (0.5-0.9) H 09/18/24 20:01 GFR Calculation Not Reportable 09/18/24 20: Glucose 440 mg/dL (65-115) H 09/18/24 20: Calculated Osmolality 307 mOsm/kg (285-295) H 09/18/24 20: Calcium 8.5 mg/dL (8.5-10.5) 09/18/24 20:01 Total Bilirubin 0.4 mg/dL (0.15-1.2) 09/18/24 20:01 AST 15 U/L (0-32) 09/18/24 20:01 ALT 21 U/L (0-33) 09/18/24 20:01 Alkaline Phosphatase 106 U/L (35-105) H 09/18/24 20:01 Troponin T Baseline 32 ng/L (0-10) H 09/18/24 20:01 Troponin T 120 Minute 30.85 ng/L (0-10) H 09/18/24 21:41 Delta Troponin T -1.15 ABS# (0-10) L 09/18/24 21:41 Total Protein 5.9 g/dL (6.6-8.7) L 09/18/24 20:01 Albumin 3.5 g/dL (3.5-5.2) 09/18/24 20:01 Globulin 2.4 g/dL (1.3-4.6) 09/18/24 20:01 All radiology interpretation(s) finalized by discharge Discharge Plan Discharge Patient Disposition: Home Clinical Impression: Congestive heart failure COPD (chronic obstructive pulmonary disease) Qualifiers: COPD type: emphysema Emphysema type: panlobular Qualified Code(s): J43.1 - Panlobular emphysema Condition: Stable Prescriptions: No Action clopidogrel 75 mg tablet 75 mg PO BEDTIME Qty: 90 3RF Entresto 24-26 mg tablet 1 tab PO BID Qty: 60 1RF nitroglycerin 0.4 mg tablet, sublingual 0.4 mg buccal PRN PRN (Reason: Chest Pain) furosemide 40 mg tablet 40 mg PO BID@0800,1400 30 Days Qty: 60 0RF isosorbide mononitrate 60 mg tablet extended release 24 hr 60 mg PO DAILY insulin aspart U-100 [Novolog FlexPen U-100 Insulin] 100 unit/mL (3 mL) insulin pen See Rx Instructions .ROUTE .COMPLEX Qty: 15 0RF Rx Instructions: Inject 3 times daily, subcut, after meals, based on sliding scale provided insulin degludec [Tresiba FlexTouch U-200] 200 unit/mL (3 mL) insulin pen 20 unit SUBCUT DAILY Qty: 9 0RF Triple Antibiotic 3.5mg-400 unit- 5,000 unit/gram Ointment 1 applic topical BID Qty: 30 0RF aspirin 81 mg Tablet,Delayed Release (Dr/Ec) 81 mg PO DAILY Qty: 30 0RF doxycycline monohydrate 100 mg Tablet 100 mg PO BID Qty: 8 0RF metoprolol tartrate 25 mg Tablet 12.5 mg PO BID@0900,2100 Qty: 60 0RF potassium chloride 20 mEq tablet,ER particles/crystals 10 meq PO DAILY Qty: 30 0RF ranolazine 500 mg tablet extended release 12 hr 1,000 mg PO BID Qty: 120 0RF losartan 25 mg tablet 25 mg PO DAILY Qty: 30 0RF atorvastatin 40 mg tablet 40 mg PO QPM amiodarone 200 mg tablet 200 mg PO DAILY tramadol 50 mg tablet 50 mg PO Q6H PRN (Reason: Pain) (DME) nebulizer and compressor [[id number] Nebulizer] Device See Rx Instructions .Route Qty: 1 0RF Rx Instructions: As directed budesonide-formoterol [Symbicort] 80-4.5 mcg/actuation HFA aerosol inhaler 1 inh inhalation BID Qty: 10.2 0RF Discharge Orders: Discharge ED (Routine); Ordered 09/18/24 Ordered By: Jordan Bean Referrals: Antonio Delgado MD [Primary Care Provider, Family Practice] Discharge Diet: Cardiac Patient Instructions: Opioid Safety, Pain Management Print Language: Croatian Coding Level of Care Code ED Street Car Inspector for Akosua Vasquez
--- NOTE | 2024-09-18 21:47 | ECG_ITS ---
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 Measurements Intervals [employer] Rate: 72 P: 66 DE: 161 QRS: -47 QRSD: 85 T: 29 QT: 468 QTc: 513 Interpretive Statements SINUS RHYTHM LEFT AXIS DEVIATION [QRS AXIS < -30] PATTERN CONSISTENT WITH PULMONARY DISEASE POSSIBLE RIGHT VENTRICULAR CONDUCTION DELAY [RSR (QR) IN V1/V2] MODERATE ST DEPRESSION [0.05+ mV ST DEPRESSION] PROLONGED QT INTERVAL Compared to ECG 09/18/2024 20:04:26 Prolonged QT interval now present Right bundle-branch block no longer present ST (T wave) deviation still present Electronically Signed On 09-18-2024 23:31:40 CDT by Angela Lopez M.D. [id number] [id number]
[2024-09-18 22:11] LABS: Troponin 5 2HR 30.85 ng/L (0-10); Troponin 5 2HR Delta -1.15 ABS# (0-10)
[2024-09-18 22:18] VITALS: BP 127/49; PULSE 73; RESP 16; O2SAT 92
[2024-09-18 23:22] VITALS: BP 117/58; PULSE 69; RESP 16; O2SAT 93
--- NOTE | 2024-09-18 23:24 | PC.NURSE ---
PT SON WAS CALLED AND HE REFUSED TO PICK PT UP. HE STATED, THIS IS A FUCKING JOKE. PT THEN CALLED HER FRIEND MICHAEL AND SHE AGREED TO PICK HER UP. PT FRIEND IS TO BRING HER O2 FROM HOME. PT IS CURRENTLY IN WAITING ROOM WITH O2 TANK UNTIL HER RIDE ARRIVES.
--- NOTE | 2024-09-18 23:51 | PC.NURSE ---
PT LEFT FACILITY WITHOUT O2. NURSE LOAN AND SOL ADVISED THEM TO WAIT UNTIL THE PT HAD O2, BUT PT AND SON REFUSED AND PT REMOVED HER O2. PT AND SON THEN LEFT.
== END 2024-09-18 23:11 | disposition home or self-care (01) ==
PROVIDERS: Emergency Provider Emergency Medicine; PCP Family Medicine
DX: J43.1 Panlobular emphysema (principal); Z79.02 Long term (current) use of antithrombotics/antiplatelets; Z79.82 Long term (current) use of aspirin; Z79.4 Long term (current) use of insulin; Z95.1 Presence of aortocoronary bypass graft; E78.5 Hyperlipidemia, unspecified; E11.22 Type 2 diabetes mellitus with diabetic chronic kidney disease; I13.0 Hypertensive heart and chronic kidney disease with heart failure and stage 1 through stage 4 chronic kidney disease, or unspecified chronic kidney disease; N18.9 Chronic kidney disease, unspecified; I50.9 Heart failure, unspecified
CPT/HCPCS: 71045; 80053; 84484; 85025; 93005; 99285

== ENCOUNTER 2024-10-16 16:53 | Emergency (ER) | payer MEDICARE, SELFPAY ==
--- NOTE | 2024-10-16 16:58 | XRR_ITS ---
PROCEDURE INFORMATION: Exam: XR Chest Exam date and time: 10/16/2024 5:52 PM Age: 84 years old Clinical indication: Shortness of breath; Additional info: SOB TECHNIQUE: Imaging protocol: Radiologic exam of the chest. Views: 1 view. COMPARISON: CR (CHEST, ) 09/18/2024 8:06 PM FINDINGS: Lungs: Bibasilar atelectasis or scarring. Pleural spaces: Trace bilateral pleural effusions. No pneumothorax. Heart/Mediastinum: Cardiomegaly. Postsurgical changes of the mediastinum. Bones/joints: There are remote left rib fracture deformities. XR/XR chest 1V portable [id number] IMPRESSION: As above.
[2024-10-16 17:03] VITALS: BP 124/51; PULSE 68; RESP 20; TEMP 36.9; O2SAT 97
--- NOTE | 2024-10-16 17:09 | ECG_ITS ---
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: : 1940 Requested By: Verito Noel Order Number: [id number] Reading MD: WESLY MORLEY Measurements Intervals [place] Rate: 66 P: 47 IA: 159 QRS: -26 QRSD: 122 T: 72 QT: 422 QTc: 443 Interpretive Statements SINUS RHYTHM WITH SINUS ARRHYTHMIA BORDERLINE LEFT AXIS DEVIATION [QRS AXIS < -20] MODERATE INTRAVENTRICULAR CONDUCTION DELAY [110+ ms QRS DURATION] NONSPECIFIC T-WAVE ABNORMALITY Compared to ECG 09/18/2024 21:47:59 Intraventricular conduction delay now present T-wave abnormality now present ST (T wave) deviation no longer present Prolonged QT interval no longer present Electronically Signed On 10-16-2024 22:52:10 CDT by WESLY MORLEY [id number] [id number]
--- NOTE | 2024-10-16 17:15 | ED_ITS ---
HPI - SOB/Dyspnea 2 General: Chief Complaint: Shortness of Breath/Dyspnea Stated Complaint: SOB Time Seen by Provider: 10/16/24 16:56 Source: patient and EMS Mode of arrival: EMS Limitations: no limitations History of Present Illness: HPI Narrative: 84-year-old female history of COPD wears 3 L oxygen at baseline states she had had some sudden onset shortness of breath just prior to arrival she received breathing treatment Solu-Medrol and route states she feels much improved and back to her baseline she denies any chest pain denies any cough or fever. She is 96% here on 3 L Associated symptoms: Deny abdominal pain, chest pain, fever(s), nausea or vomiting Related Data Home Medications ?Medication ?Instructions ?Recorded ?Confirmed nitroglycerin 0.4 mg sublingual 0.4 mg buccal PRN PRN Chest Pain 04/10/24 08/24/24 tablet isosorbide mononitrate 60 mg 60 mg PO DAILY 06/07/24 0 08/24/24 tablet,extended release 24 hr amiodarone 200 mg tablet 200 mg PO DAILY 07/18/2405/08 atorvastatin 40 mg tablet 40 mg PO QPM 07/18/24 tramadol 50 mg tablet 50 mg PO Q6H PRN Pain 08/24/24 Previous Rx's ?Medication ?Instructions ?Recorded clopidogrel 75 mg tablet 75 mg PO BEDTIME #90 tabs furosemide 40 mg tablet 40 mg PO BID@0800,1400 30 da ys #60 05/28/24 tabs insulin aspart U-100 100 unit/mL See Rx Instructions . Route 06/11/24 (3 mL) subcutaneous pen (Novolog .COMPLEX #15 mL FlexPen U-100 Insulin aspart) insulin degludec 200 unit/mL (3 20 unit (0.1 mL) SUBCU T DAILY #9 mL 06/11/24 mL) subcutaneous pen (Tresiba FlexTouch U-200 insulin) budesonide-formoterol HFA 80 1 inh inhalation BID #10. 2 grams 07/23/24 mcg-4.5 mcg/actuation aerosol inhaler (Symbicort) nebulizer and compressor ([id number] #1 ea 07/23/24 Nebulizer) sacubitril 24 mg-valsartan 26 mg 1 tab PO BID #60 tabs 07/25/24 tablet (Entresto) aspirin 81 mg tablet,delayed 81 mg PO DAILY #30 tabs 0 08/07/24 release doxycycline monohydrate 100 mg 100 mg PO BID #8 tabs 0 08/07/24 tablet metoprolol tartrate 25 mg tablet 12.5 mg (1/2 x 25 mg) PO 08/07/24 BID@0900,2100 #60 tabs neomycin-bacitracn Zn-polymyx 3.5 1 applic topical BID #30 grams 08/07/24 mg-400 unit-5,000 unit/gram top oint (Triple Antibiotic) potassium chloride 20 mEq 10 meq (1/2 x 20 mEq) PO GLENNA LY #30 08/07/24 tablet,extended release(part/cryst) tabs ranolazine 500 mg tablet,extended 1,000 mg (2 x 500 mg ) PO BID #120 08/07/24 release,12 hr tabs losartan 25 mg tablet 25 mg PO DAILY #30 tabs 07/14 12/06 prednisone 50 mg tablet 50 mg PO DAILY #5 tabs 10/16 Allergies Allergy/AdvReac Type Severity Reaction Status Date / Time No Known Allergies Allergy Verified 09/18/24 19:54 Review of Systems 2 Const: Denies: fever(s), chills, body aches or change in appetite ENMT: Denies: throat pain or dental pain Card: Denies: chest pain Resp: Reports: dyspnea GI: Denies: abdominal pain, nausea, vomiting or diarrhea Musc: Denies: neck pain or back pain Skin/Breast: Denies: rash Neuro: Denies: headache(s) PFS ED 2 PFSH: Medical History Dyslipidemia Essential (primary) hypertension COPD (chronic obstructive pulmonary disease) Chronic hypoxic respiratory failure, on home oxygen therapy Diabetes mellitus, type II, insulin dependent CAD (coronary artery disease) Paroxysmal A-fib CKD (chronic kidney disease) CHF (congestive heart failure) Respiratory arrest has required intubation Non-STEMI (non-ST elevated myocardial infarction) Contrast-induced nephropathy Surgical History Hx of hysterectomy Hx of CABG Family History Unknown No problems noted. Social History Smoking and tobacco/nicotine status: former use of tobacco/nicotine Alcohol intake: never Substance/Drug Use: never Physical Exam 2 Const: COMMON NORMALS: no acute distress, patient oriented x3 and healthy appearing HENMT: COMMON NORMALS: normocephalic and atraumatic HEAD & SCALP: n ormocephalic and atraumatic Eye: COMMON NORMALS: conjunctivae normal CONJUNCTIVA: Yes conjunctivae normal Neck/C-Spine: COMMON NORMALS: full ROM and supple Chest: COMMONS NORMALS: normal inspection of the chest Resp: COMMON NORMALS: normal respiratory effort, No retractions, No use of accessory muscles and clear to auscultation bilaterally AUSCULTATION: clear to auscultation bilaterally Cardio: COMMON NORMALS: regular rate, regular rhythm and No murmurs present (Cardio) RATE: regular rate RHYTHM: regular rhythm Extremity: COMMON NORMALS: normal to inspection and full ROM Neuro: COMMON NORMALS: patient oriented x3, moves all extremities and no focal motor deficits Psych: COMMON NORMALS: mental status grossly normal, Normal thought process present and cooperative THOUGHT PROCESS: Normal thought process present Skin: COMMON NORMALS: no rashes or lesions noted and no wounds GENERAL SKIN EXAM: no rashes or lesions noted Course 2 Vital Signs: Vital signs: Vital Signs Temperature 98.5 F 10/16/24 17:03 Pulse Rate 63 10/16/24 18:11 Respiratory Rate 20 H 10/16/24 17:03 Blood Pressure 131/55 10/16/24 18:11 Pulse Oximetry 94 10/16/24 18:11 Oxygen Delivery Me thod Room Air 10/16/24 18:11 Oxygen Flow Rate 3 10/16/24 17:03 MDM - SOB/Dyspnea Medical Decision Making Patient presents here with dyspnea like a COPD exacerbation she is much improved here patient is requesting discharge as she feels at her baseline imaging shows no acute pneumonia she is stable for discharge we will place her on prednisone follow-up with PCP return if worsening Medical Records I reviewed the patient's medical records. Lab Data I reviewed the patient's lab results. 10/16/24 17:45 10/16/24 17:45 Labs/Radiology: Laboratory Results WBC 12.34 10^3/uL (3.29-11.43) H 10/16/24 17:45 RBC 4.11 10^6/uL (3.85-5.65) 10/16/24 17:45 Hgb 10.30 g/dL (11.27-16.99) L 10/16/24 17:45 Hct 34.2 % (36-47) L 10/16/24 17:45 MCV 83.2 fl (85-98) L 10/16/24 17:45 MCH 25.1 pg (27-33) L 10/16/24 17:45 MCHC 30.1 g/dL (30-55) 10/16/24 17:45 RDW 16.3 % (12.1-15.1) H 10/16/24 17:45 Plt Count 264 10^3/cmm (157-399) 10/16/24 17:45 MPV 11.6 fL (7.4-10.4) H 10/16/24 17:45 Neut % (Auto) 86.2 % 10/16/24 17:45 Lymph % (Auto) 6.0 % 10/16/24 17:45 [place] % (Auto) 6.7 % 10/16/24 17:45 Eos % (Auto) 0.5 % 10/16/24 17:45 Baso % (Auto) 0.2 % 10/16/24 17:45 Neut # (Auto) 10.64 10^3/uL (1.8-7.7) H 10/16/24 17:45 Lymph # (Auto) 0.7 10^3/uL (0.8-4.8) L 10/16/24 17:45 [place] # (Auto) 0.8 10^3/uL (0.2-0.9) 10/16/24 17:45 Eos # (Auto) 0.1 10^3/uL (0.0-0.8) 10/16/24 17:45 Baso # (Auto) 0.0 10^3/uL (0.0-0.1) 10/16/24 17:45 Nucleated RBC % (auto) 0 % 10/16/24 17:45 Nucleated RBCs # 0.0 /100WBC 10/16/24 17:45 Sodium 137 mmol/L (136-145) 10/16/24 17:45 Potassium 4.5 mmol/L (3.5-5.1) 10/16/24 17:45 Chloride 100 mmol/L (98-107) 10/16/24 17:45 Carbon Dioxide 26 mmol/L (22-29) 10/16/24 17:45 Anion Gap 15.5 (5-19) 10/16/24 17:45 BUN 27 mg/dL (8-23) H 10/16/24 17:45 Creatinine 0.9 mg/dL (0.5-0.9) 10/16/24 17:45 GFR Calculation Not Reportable 10/16/24 17:45 Glucose 85 mg/dL (65-115) 10/16/24 17:45 Calculated Osmolality 288 mOsm/kg (285-295) 10/16/24 17:45 Calcium 9.3 mg/dL (8.5-10.5) 10/16/24 17:45 Total Bilirubin 0.3 mg/dL (0.15-1.2) 10/16/24 17:45 AST 11 U/L (0-32) 10/16/24 17:45 ALT 9 U/L (0-33) 10/16/24 17:45 Alkaline Phosphatase 98 U/L (35-105) 10/16/24 17:45 NT-Pro-B Natriuret Pep 61956 pg/mL (0-450) H 10/16/24 17:45 Total Protein 7.1 g/dL (6.6-8.7) 10/16/24 17:45 Albumin 3.7 g/dL (3.5-5.2) 10/16/24 17:45 Globulin 3.4 g/dL (1.3-4.6) 10/16/24 17:45 All radiology interpretation(s) finalized by discharge EKG Data EKG 1: I personally reviewed and interpreted this EKG as follows: EKG Interpretation Date: 10/16/24 EKG interpretation time: 17:09 Interpretation: nsr hr [address] elevation qrs 122 qtc 435 Discharge Plan Discharge Patient Disposition: Home Clinical Impression: Acute exacerbation of chronic obstructive airways disease Condition: Stable Prescriptions: New prednisone 50 mg tablet 50 mg PO DAILY Qty: 5 0RF No Action clopidogrel 75 mg tablet 75 mg PO BEDTIME Qty: 90 3RF Entresto 24-26 mg tablet 1 tab PO BID Qty: 60 1RF nitroglycerin 0.4 mg tablet, sublingual 0.4 mg buccal PRN PRN (Reason: Chest Pain) furosemide 40 mg tablet 40 mg PO BID@0800,1400 30 Days Qty: 60 0RF isosorbide mononitrate 60 mg tablet extended release 24 hr 60 mg PO DAILY insulin aspart U-100 [Novolog FlexPen U-100 Insulin] 100 unit/mL (3 mL) insulin pen See Rx Instructions .ROUTE .COMPLEX Qty: 15 0RF Rx Instructions: Inject 3 times daily, subcut, after meals, based on sliding scale provided insulin degludec [Tresiba FlexTouch U-200] 200 unit/mL (3 mL) insulin pen 20 unit SUBCUT DAILY Qty: 9 0RF Triple Antibiotic 3.5mg-400 unit- 5,000 unit/gram Ointment 1 applic topical BID Qty: 30 0RF aspirin 81 mg Tablet,Delayed Release (Dr/Ec) 81 mg PO DAILY Qty: 30 0RF doxycycline monohydrate 100 mg Tablet 100 mg PO BID Qty: 8 0RF metoprolol tartrate 25 mg Tablet 12.5 mg PO BID@0900,2100 Qty: 60 0RF potassium chloride 20 mEq tablet,ER particles/crystals 10 meq PO DAILY Qty: 30 0RF ranolazine 500 mg tablet extended release 12 hr 1,000 mg PO BID Qty: 120 0RF losartan 25 mg tablet 25 mg PO DAILY Qty: 30 0RF atorvastatin 40 mg tablet 40 mg PO QPM amiodarone 200 mg tablet 200 mg PO DAILY tramadol 50 mg tablet 50 mg PO Q6H PRN (Reason: Pain) (DME) nebulizer and compressor [[id number] Nebulizer] Device See Rx Instructions .Route Qty: 1 0RF Rx Instructions: As directed budesonide-formoterol [Symbicort] 80-4.5 mcg/actuation HFA aerosol inhaler 1 inh inhalation BID Qty: 10.2 0RF Discharge Orders: Discharge ED (Routine); Ordered 10/16/24 Ordered By: Verito Noel Referrals: Antonio Delgado MD [Primary Care Provider, Family Practice] Discharge Diet: Advance as tolerated Discharge Activity: Resume usual activity Patient Instructions: COPD (Chronic Obstructive Pulmonary Disease) (ED) Print Language: Syriac Coding Level of Care Code ED 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
[2024-10-16 18:11] VITALS: BP 131/55; PULSE 63; O2SAT 94
[2024-10-16 18:28] LABS: Basophils % 0.2 %; Eosinophils # 0.1 10^3/uL (0.0-0.8); Eosinophils % 0.5 %; Hematocrit 34.2 % (36-47); Lymphocytes # 0.7 10^3/uL (0.8-4.8); Mean Corpuscular HGB Conc 30.1 g/dL (30-55); Mean Corpuscular Hemoglobin 25.1 pg (27-33); Mean Corpuscular Volume 83.2 fl (85-98); Mean Platelet Volume 11.6 fL (7.4-10.4); Monocytes # 0.8 10^3/uL (0.2-0.9); Monocytes % 6.7 %; Neutrophils # 10.64 10^3/uL (1.8-7.7); Neutrophils % 86.2 %; Nucleated Red Blood Cells % 0 %; Platelet Count 264 10^3/cmm (157-399); Red Blood Count 4.11 10^6/uL (3.85-5.65); Red Cell Distribution Width 16.3 % (12.1-15.1); White Blood Count 12.34 10^3/uL (3.29-11.43)
[2024-10-16 19:04] LABS: Alanine Aminotransferase 9 U/L (0-33); Albumin Level 3.7 g/dL (3.5-5.2); Alkaline Phosphatase 98 U/L (35-105); Anion Gap 15.5 (5-19); Aspartate Amino Transferase 11 U/L (0-32); Blood Urea Nitrogen 27 mg/dL (8-23); Calcium 9.3 mg/dL (8.5-10.5); Carbon Dioxide 26 mmol/L (22-29); Chloride 100 mmol/L (98-107); Creatinine Clr Calc Pharmacy 41.4756; Globulin 3.4 g/dL (1.3-4.6); Glucose 85 mg/dL (65-115); NT Pro B Type Natriuretic Pept 11596 pg/mL (0-450); Osmolality Calculated 288 mOsm/kg (285-295); Potassium 4.5 mmol/L (3.5-5.1); Sodium 137 mmol/L (136-145); Total Bilirubin 0.3 mg/dL (0.15-1.2); Total Protein 7.1 g/dL (6.6-8.7)
--- NOTE | 2024-10-16 20:04 | PC.NURSE ---
patient demanded she wants to go home now and will go home . Bert notified and verbalized understanding, wrote dc, and prescription. patient verbalized understanding of dc and need for return to ED if symptoms worsen. patient stated her son would come get her with her portable o2 tank.
[2024-10-16 20:05] VITALS: BP 166/98; PULSE 61; O2SAT 96
== END 2024-10-16 20:07 | disposition home or self-care (01) ==
PROVIDERS: Emergency Provider Emergency Medicine; PCP Family Medicine
DX: J44.1 Chronic obstructive pulmonary disease with (acute) exacerbation (principal); Z79.02 Long term (current) use of antithrombotics/antiplatelets; Z79.4 Long term (current) use of insulin; Z79.82 Long term (current) use of aspirin; Z87.891 Personal history of nicotine dependence; I25.10 Atherosclerotic heart disease of native coronary artery without angina pectoris; E78.5 Hyperlipidemia, unspecified; E11.22 Type 2 diabetes mellitus with diabetic chronic kidney disease; I13.0 Hypertensive heart and chronic kidney disease with heart failure and stage 1 through stage 4 chronic kidney disease, or unspecified chronic kidney disease; N18.9 Chronic kidney disease, unspecified; I50.9 Heart failure, unspecified
CPT/HCPCS: 36415; 71045; 80053; 83880; 85025; 93005; 99285

== ENCOUNTER 2024-10-28 14:25 | Inpatient (IN) | payer MEDICARE, SELFPAY ==
[2024-10-28 14:35] VITALS: BP 158/77; PULSE 78; RESP 17; TEMP 36.7; O2SAT 100; BMI 32.3
[2024-10-28 18:32] LABS: Basophils # 0.1 10^3/uL (0.0-0.1); Basophils % 0.3 %; Eosinophils # 0.3 10^3/uL (0.0-0.8); Eosinophils % 1.9 %; Hematocrit 36.8 % (36-47); Lymphocytes # 1.2 10^3/uL (0.8-4.8); Lymphocytes % 8.1 %; Mean Corpuscular HGB Conc 29.6 g/dL (30-55); Mean Corpuscular Hemoglobin 25.1 pg (27-33); Mean Corpuscular Volume 84.8 fl (85-98); Monocytes % 6.8 %; Neutrophils # 12.35 10^3/uL (1.8-7.7); Neutrophils % 82.3 %; Nucleated Red Blood Cells % 0 %; Platelet Count 424 10^3/cmm (157-399); Red Blood Count 4.34 10^6/uL (3.85-5.65); Red Cell Distribution Width 16.1 % (12.1-15.1); White Blood Count 15.01 10^3/uL (3.29-11.43)
[2024-10-28 18:37] LABS: Erythrocyte Sedimentation Rate 47 mm/hr (0-15)
--- NOTE | 2024-10-28 18:41 | ED_ITS ---
HPI - Wound/Laceration 2 General: Chief Complaint: Wound/Laceration Stated Complaint: L foot problems sent from [facility] Time Seen by Provider: 10/28/24 18:36 Source: patient Mode of arrival: ambulatory Limitations: no limitations History of Present Illness: 84-year-old female with history of diabe brooks states she has had a wound along with erythema to her left great toe for over a week she sent here by her PCP is concerned osteomyelitis states she has been having a foul-smelling discharge as well she has pain at the site denies any fevers. Associated symptoms: Denies chills, fever(s), nausea or vomiting Related Data Home Medications ?Medication ?Instructions ?Recorded ?Confirmed nitroglycerin 0.4 mg sublingual 0.4 mg buccal PRN PRN Chest Pain 04/10/24 08/24/24 tablet isosorbide mononitrate 60 mg 60 mg PO DAILY 06/07/24 0 08/24/24 tablet,extended release 24 hr amiodarone 200 mg tablet 200 mg PO DAILY 07/18/2405/08 atorvastatin 40 mg tablet 40 mg PO QPM 07/18/24 tramadol 50 mg tablet 50 mg PO Q6H PRN Pain 08/24/24 Previous Rx's ?Medication ?Instructions ?Recorded clopidogrel 75 mg tablet 75 mg PO BEDTIME #90 tabs furosemide 40 mg tablet 40 mg PO BID@0800,1400 30 da ys #60 05/28/24 tabs insulin aspart U-100 100 unit/mL See Rx Instructions . Route 06/11/24 (3 mL) subcutaneous pen (Novolog .COMPLEX #15 mL FlexPen U-100 Insulin aspart) insulin degludec 200 unit/mL (3 20 unit (0.1 mL) SUBCU T DAILY #9 mL 06/11/24 mL) subcutaneous pen (Tresiba FlexTouch U-200 insulin) budesonide-formoterol HFA 80 1 inh inhalation BID #10. 2 grams 07/23/24 mcg-4.5 mcg/actuation aerosol inhaler (Symbicort) nebulizer and compressor ([id number] #1 ea 07/23/24 Nebulizer) sacubitril 24 mg-valsartan 26 mg 1 tab PO BID #60 tabs 07/25/24 tablet (Entresto) aspirin 81 mg tablet,delayed 81 mg PO DAILY #30 tabs 0 08/07/24 release doxycycline monohydrate 100 mg 100 mg PO BID #8 tabs 0 08/07/24 tablet metoprolol tartrate 25 mg tablet 12.5 mg (1/2 x 25 mg) PO 08/07/24 BID@0900,2100 #60 tabs neomycin-bacitracn Zn-polymyx 3.5 1 applic topical BID #30 grams 08/07/24 mg-400 unit-5,000 unit/gram top oint (Triple Antibiotic) potassium chloride 20 mEq 10 meq (1/2 x 20 mEq) PO GLENNA LY #30 08/07/24 tablet,extended release(part/cryst) tabs ranolazine 500 mg tablet,extended 1,000 mg (2 x 500 mg ) PO BID #120 08/07/24 release,12 hr tabs losartan 25 mg tablet 25 mg PO DAILY #30 tabs 07/14 12/06 prednisone 50 mg tablet 50 mg PO DAILY #5 tabs 10/16 Allergies Allergy/AdvReac Type Severity Reaction Status Date / Time No Known Allergies Allergy Verified 09/18/24 19:54 Review of Systems 2 Const: Denies: fever(s), chills, body aches or change in appetite ENMT: Denies: throat pain or dental pain Card: Denies: chest pain Resp: Denies: dyspnea GI: Denies: abdominal pain, nausea, vomiting or diarrhea Musc: Reports: extremity pain; Denies: neck pain or back pain Skin/Breast: Reports: erythema; Denies: rash Neuro: Denies: headache(s) PFSH ED 2 PFSH: Medical History Dyslipidemia Essential (primary) hypertension COPD (chronic obstructive pulmonary disease) Chronic hypoxic respiratory failure, on home oxygen therapy Diabetes mellitus, type II, insulin dependent CAD (coronary artery disease) Paroxysmal A-fib CKD (chronic kidney disease) CHF (congestive heart failure) Respiratory arrest has required intubation Non-STEMI (non-ST elevated myocardial infarction) Contrast-induced nephropathy Surgical History Hx of hysterectomy Hx of CABG Family History Unknown No problems noted. Social History Smoking and tobacco/nicotine status: former use of tobacco/nicotine Alcohol intake: never Substance/Drug Use: never Physical Exam 2 Const: COMMON NORMALS: patient oriented x3 HENMT: COMMON NORMALS: normocephalic and atraumatic HEAD & SCALP: n ormocephalic and atraumatic Eye: COMMON NORMALS: Equal, round and reactive pupils present and EOMs intact bilaterally PUPIL: Yes Equal, round and reactive pupils present Neck/C-Spine: COMMON NORMALS: full ROM and supple Chest: COMMONS NORMALS: normal inspection of the chest Resp: COMMON NORMALS: normal respiratory effort, No retractions, No use of accessory muscles and clear to auscultation bilaterally AUSCULTATION: clear to auscultation bilaterally Cardio: COMMON NORMALS: regular rate, regular rhythm and No murmurs present (Cardio) RATE: regular rate RHYTHM: regular rhythm Extremity: NARRATIVE EXTREMITY EXAM: Erythema noted to the left great toe wound with foul-smelling discharge Neuro: COMMON NORMALS: patient oriented x3, moves all extremities and no focal motor deficits Psych: COMMON NORMALS: mental status grossly normal, Normal thought process present and cooperative THOUGHT PROCESS: Normal thought process present Skin: COMMON NORMALS: no rashes or lesions noted and no wounds GENERAL SKIN EXAM: no rashes or lesions noted Course 2 Vital Signs: Vital signs: Vital Signs Temperature 98.0 F 10/28/24 14:35 Pulse Rate 77 10/28/24 19:05 Respiratory Rate 18 10/28/24 19:05 Blood Pressure 158/77 10/28/24 14:35 Pulse Oximetry 96 10/28/24 19:05 Oxygen Delivery Me thod Nasal Cannula 10/28/24 19:05 Oxygen Flow Rate 3 10/28/24 19:05 MDM - Wound/Laceration Medical Decision Making Patient presents here with osteomyelitis to her left great toe patient seen in the ER by podiatry will admit on IV antibiotics. Medical Records I reviewed the patient's medical records. Lab Data I reviewed the patient's lab results. 10/28/24 18:00 10/28/24 18:00 Laboratory Results WBC 15.01 10^3/uL (3.29-11.43) H 10/28/24 18:00 RBC 4.34 10^6/uL (3.85-5.65) 10/28/24 18:00 Hgb 10.90 g/dL (11.27-16.99) L 10/28/24 18:00 Hct 36.8 % (36-47) 10/28/24 18:00 MCV 84.8 fl (85-98) L 10/28/24 18:00 MCH 25.1 pg (27-33) L 10/28/24 18:00 MCHC 29.6 g/dL (30-55) L 10/28/24 18:00 RDW 16.1 % (12.1-15.1) H 10/28/24 18:00 Plt Count 424 10^3/cmm (157-399) H 10/28/24 18:00 MPV 11.0 fL (7.4-10.4) H 10/28/24 18:00 Neut % (Auto) 82.3 % 10/28/24 18:00 Lymph % (Auto) 8.1 % 10/28/24 18:00 [place] % (Auto) 6.8 % 10/28/24 18:00 Eos % (Auto) 1.9 % 10/28/24 18:00 Baso % (Auto) 0.3 % 10/28/24 18:00 Neut # (Auto) 12.35 10^3/uL (1.8-7.7) H 10/28/24 18:00 Lymph # (Auto) 1.2 10^3/uL (0.8-4.8) 10/28/24 18:00 [place] # (Auto) 1.0 10^3/uL (0.2-0.9) H 10/28/24 18:00 Eos # (Auto) 0.3 10^3/uL (0.0-0.8) 10/28/24 18:00 Baso # (Auto) 0.1 10^3/uL (0.0-0.1) 10/28/24 18:00 Nucleated RBC % (auto) 0 % 10/28/24 18:00 Nucleated RBCs # 0.0 /100WBC 10/28/24 18:00 ESR 47 mm/hr (0-15) H 10/28/24 18:00 Sodium 140 mmol/L (136-145) 10/28/24 18:00 Potassium 4.5 mmol/L (3.5-5.1) 10/28/24 18:00 Chloride 101 mmol/L (98-107) 10/28/24 18:00 Carbon Dioxide 25 mmol/L (22-29) 10/28/24 18:00 Anion Gap 18.5 (5-19) 10/28/24 18:00 BUN 19 mg/dL (8-23) 10/28/24 18:00 Creatinine 0.9 mg/dL (0.5-0.9) 10/28/24 18:00 GFR Calculation Not Reportable 10/28/24 18:00 Glucose 245 mg/dL (65-115) H 10/28/24 18:00 Calculated Osmolality 300 mOsm/kg (285-295) H 10/28/24 18:00 Calcium 8.9 mg/dL (8.5-10.5) 10/28/24 18:00 Total Bilirubin 0.3 mg/dL (0.15-1.2) 10/28/24 18:00 AST 12 U/L (0-32) 10/28/24 18:00 ALT 8 U/L (0-33) 10/28/24 18:00 Alkaline Phosphatase 85 U/L (35-105) 10/28/24 18:00 C-Reactive Protein 45.2 mg/L (0.0-4.9) H 10/28/24 18:00 Total Protein 7.1 g/dL (6.6-8.7) 10/28/24 18:00 Albumin 3.3 g/dL (3.5-5.2) L 10/28/24 18:00 Globulin 3.8 g/dL (1.3-4.6) 10/28/24 18:00 All radiology interpretation(s) finalized by discharge Discharge Plan Discharge Patient Disposition: Admitted As Inpatient Clinical Impression: Osteomyelitis of great toe of left foot Condition: Stable Coding Level of Care Code ED Mud Tank Operator for Akosua Vasquez
[2024-10-28 18:52] LABS: Alanine Aminotransferase 8 U/L (0-33); Albumin Level 3.3 g/dL (3.5-5.2); Alkaline Phosphatase 85 U/L (35-105); Anion Gap 18.5 (5-19); Aspartate Amino Transferase 12 U/L (0-32); Blood Urea Nitrogen 19 mg/dL (8-23); C Reactive Protein 45.2 mg/L (0.0-4.9); Calcium 8.9 mg/dL (8.5-10.5); Carbon Dioxide 25 mmol/L (22-29); Chloride 101 mmol/L (98-107); Globulin 3.8 g/dL (1.3-4.6); Glucose 245 mg/dL (65-115); Osmolality Calculated 300 mOsm/kg (285-295); Potassium 4.5 mmol/L (3.5-5.1); Sodium 140 mmol/L (136-145); Total Bilirubin 0.3 mg/dL (0.15-1.2); Total Protein 7.1 g/dL (6.6-8.7)
[2024-10-28 19:05] VITALS: PULSE 77; RESP 18; O2SAT 96
--- NOTE | 2024-10-28 19:11 | W.ED.WOUNDLC ---
HPI - Wound/Laceration General: Chief Complaint: Wound/Laceration Stated Complaint: L foot problems sent from [facility] Time Seen by Provider: 10/28/24 18:36 Source: patient Mode of arrival: ambulatory Limitations: no limitations Related Data Home Medications ?Medication ?Instructions ?Recorded ?Confirmed nitroglycerin 0.4 mg sublingual 0.4 mg buccal PRN PRN Chest Pain 04/10/24 08/24/24 tablet isosorbide mononitrate 60 mg 60 mg PO DAILY 06/07/24 08/24/24 tablet,extended release 24 hr amiodarone 200 mg tablet 200 mg PO DAILY 07/18/24 08/24/24 atorvastatin 40 mg tablet 40 mg PO QPM 07/18/24 08/24/24 tramadol 50 mg tablet 50 mg PO Q6H PRN Pain 07/18/24 08/24/24 Previous Rx's ?Medication ?Instructions ?Recorded clopidogrel 75 mg tablet 75 mg PO BEDTIME #90 tabs 03/27/24 furosemide 40 mg tablet 40 mg PO BID@0800,1400 30 days #60 05/28/24 tabs insulin aspart U-100 100 unit/mL See Rx Instructions .Route 06/11/24 (3 mL) subcutaneous pen (Novolog .COMPLEX #15 mL FlexPen U-100 Insulin aspart) insulin degludec 200 unit/mL (3 20 unit (0.1 mL) SUBCUT DAILY #9 mL 06/11/24 mL) subcutaneous pen (Tresiba FlexTouch U-200 insulin) budesonide-formoterol HFA 80 1 inh inhalation BID #10.2 grams 07/23/24 mcg-4.5 mcg/actuation aerosol inhaler (Symbicort) nebulizer and compressor ([id number] #1 ea 07/23/24 Nebulizer) sacubitril 24 mg-valsartan 26 mg 1 tab PO BID #60 tabs 07/25/24 tablet (Entresto) aspirin 81 mg tablet,delayed 81 mg PO DAILY #30 tabs 08/07/24 release doxycycline monohydrate 100 mg 100 mg PO BID #8 tabs 08/07/24 tablet metoprolol tartrate 25 mg tablet 12.5 mg (1/2 x 25 mg) PO 08/07/24 BID@0900,2100 #60 tabs neomycin-bacitracn Zn-polymyx 3.5 1 applic topical BID #30 grams 08/07/24 mg-400 unit-5,000 unit/gram top oint (Triple Antibiotic) potassium chloride 20 mEq 10 meq (1/2 x 20 mEq) PO DAILY #30 08/07/24 tablet,extended release(part/cryst) tabs ranolazine 500 mg tablet,extended 1,000 mg (2 x 500 mg) PO BID #120 08/07/24 release,12 hr tabs losartan 25 mg tablet 25 mg PO DAILY #30 tabs 08/08/24 prednisone 50 mg tablet 50 mg PO DAILY #5 tabs 10/16/24 Allergies Allergy/AdvReac Type Severity Reaction Status Date / Time No Known Allergies Allergy Verified 09/18/24 19:54 PFSH ED PFSH: Medical History Dyslipidemia Essential (primary) hypertension COPD (chronic obstructive pulmonary disease) Chronic hypoxic respiratory failure, on home oxygen therapy Diabetes mellitus, type II, insulin dependent CAD (coronary artery disease) Paroxysmal A-fib CKD (chronic kidney disease) CHF (congestive heart failure) Respiratory arrest has required intubation Non-STEMI (non-ST elevated myocardial infarction) Contrast-induced nephropathy Surgical History Hx of hysterectomy Hx of CABG Family History Unknown No problems noted. Social History Smoking and tobacco/nicotine status: former use of tobacco/nicotine Alcohol intake: never Substance/Drug Use: never Course Vital Signs: Vital signs: Vital Signs Temperature 98.0 F 10/28/24 14:35 Pulse Rate 77 10/28/24 19:05 Respiratory Rate 18 10/28/24 19:05 Blood Pressure 158/77 10/28/24 14:35 Pulse Oximetry 96 10/28/24 19:05 Oxygen Delivery Me thod Nasal Cannula 10/28/24 19:05 Oxygen Flow Rate 3 10/28/24 19:05 MDM - Wound/Laceration Lab Data 10/28/24 18:00 10/28/24 18:00 Laboratory Results WBC 15.01 10^3/uL (3.29-11.43) H 10/28/24 18:00 RBC 4.34 10^6/uL (3.85-5.65) 10/28/24 18:00 Hgb 10.90 g/dL (11.27-16.99) L 10/28/24 18:00 Hct 36.8 % (36-47) 10/28/24 18:00 MCV 84.8 fl (85-98) L 10/28/24 18:00 MCH 25.1 pg (27-33) L 10/28/24 18:00 MCHC 29.6 g/dL (30-55) L 10/28/24 18:00 RDW 16.1 % (12.1-15.1) H 10/28/24 18:00 Plt Count 424 10^3/cmm (157-399) H 10/28/24 18:00 MPV 11.0 fL (7.4-10.4) H 10/28/24 18:00 Neut % (Auto) 82.3 % 10/28/24 18:00 Lymph % (Auto) 8.1 % 10/28/24 18:00 [place] % (Auto) 6.8 % 10/28/24 18:00 Eos % (Auto) 1.9 % 10/28/24 18:00 Baso % (Auto) 0.3 % 10/28/24 18:00 Neut # (Auto) 12.35 10^3/uL (1.8-7.7) H 10/28/24 18:00 Lymph # (Auto) 1.2 10^3/uL (0.8-4.8) 10/28/24 18:00 [place] # (Auto) 1.0 10^3/uL (0.2-0.9) H 10/28/24 18:00 Eos # (Auto) 0.3 10^3/uL (0.0-0.8) 10/28/24 18:00 Baso # (Auto) 0.1 10^3/uL (0.0-0.1) 10/28/24 18:00 Nucleated RBC % (auto) 0 % 10/28/24 18:00 Nucleated RBCs # 0.0 /100WBC 10/28/24 18:00 ESR 47 mm/hr (0-15) H 10/28/24 18:00 Sodium 140 mmol/L (136-145) 10/28/24 18:00 Potassium 4.5 mmol/L (3.5-5.1) 10/28/24 18:00 Chloride 101 mmol/L (98-107) 10/28/24 18:00 Carbon Dioxide 25 mmol/L (22-29) 10/28/24 18:00 Anion Gap 18.5 (5-19) 10/28/24 18:00 BUN 19 mg/dL (8-23) 10/28/24 18:00 Creatinine 0.9 mg/dL (0.5-0.9) 10/28/24 18:00 GFR Calculation Not Reportable 10/28/24 18:00 Glucose 245 mg/dL (65-115) H 10/28/24 18:00 Calculated Osmolality 300 mOsm/kg (285-295) H 10/28/24 18:00 Calcium 8.9 mg/dL (8.5-10.5) 10/28/24 18:00 Total Bilirubin 0.3 mg/dL (0.15-1.2) 10/28/24 18:00 AST 12 U/L (0-32) 10/28/24 18:00 ALT 8 U/L (0-33) 10/28/24 18:00 Alkaline Phosphatase 85 U/L (35-105) 10/28/24 18:00 C-Reactive Protein 45.2 mg/L (0.0-4.9) H 10/28/24 18:00 Total Protein 7.1 g/dL (6.6-8.7) 10/28/24 18:00 Albumin 3.3 g/dL (3.5-5.2) L 10/28/24 18:00 Globulin 3.8 g/dL (1.3-4.6) 10/28/24 18:00 Discharge Plan Discharge Patient Disposition: Admitted As Inpatient Clinical Impression: Osteomyelitis of great toe of left foot Condition: Stable Coding Level of Care Code ED Chief Vendor Quality for Akosua Vasquez
--- NOTE | 2024-10-28 19:14 | PM.CONSULT ---
Providers/Reason For Consult Consulting Physician/Specialty*: Jean Paul Renee D.P.M. Reason for Consult*: Osteomyelitis left great toe Primary Care Provider: Antonio Delgado MD History of Present Illness History of Present Illness Sally Henderson is a 84 year old insulin-dependent diabetic female presents with foul-smelling wound to the left great toe. Wound has been present for greater than 1 year started as a small wound limited to breakdown of skin associate with diabetes, neuropathy and a bunion deformity at her left great toe was first documented August 2024 during hospital admission. I was consulted on patient in September 2024 in the left great toe wound had progressed to subcutaneous tissue, was negative for osteomyelitis at that time, she was advised to wear a cam boot for offloading, patient refused, was advised to follow-up in wound care clinic, patient did not follow-up, advised diabetic shoes, patient did not follow through on getting them. Unfortunately patient's wound has progressed over the past year, she presents tonight in the emergency department stating that over the past week she noticed foul odor and a worsening of the wound, wound has pet hair, redness to the midfoot. Review of Systems General: Reports: 10 or more systems reviewed and unremarkable except in HPI and below Const: Denies: fever(s) or chills Eyes: Denies: change in vision Card: Denies: chest pain or palpitations Resp: Denies: dyspnea or productive cough GI: Denies: abdominal pain, nausea or vomiting : Denies: flank pain Musc: Reports: extremity swelling, joint stiffness and deformity Skin/Breast: Reports: erythema, sores, changes in skin color, dry skin, nail changes and change in hair Neuro: Reports: numbness in extremities, sensory changes and difficulty walking Psych: Denies: suicidal ideation Endo: Denies: change in body appearance Saeid/Lymph: Denies: tender lymph nodes Medications/Allergies Home Medications ?Medication ?Instructions ?Recorded ?Confirmed ?Last Taken ?Type clopidogrel 75 mg tablet 75 mg PO BEDTIME #90 tabs 03/27/24 08/24/24 08/04/24 Rx nitroglycerin 0.4 mg sublingual 0.4 mg buccal PRN PRN Chest Pain 04/10/24 08/24/24 Unknown History tablet furosemide 40 mg tablet 40 mg PO BID@0800,1400 30 days #60 05/28/24 08/24/24 08/04/24 Rx tabs isosorbide mononitrate 60 mg 60 mg PO DAILY 06/07/24 08/24/24 08/04/24 History tablet,extended release 24 hr insulin aspart U-100 100 unit/mL See Rx Instructions .Route 06/11/24 08/24/24 08/04/24 Rx (3 mL) subcutaneous pen (Novolog .COMPLEX #15 mL FlexPen U-100 Insulin aspart) insulin degludec 200 unit/mL (3 20 unit (0.1 mL) SUBCUT DAILY #9 mL 06/11/24 08/24/24 08/04/24 Rx mL) subcutaneous pen (Tresiba FlexTouch U-200 insulin) amiodarone 200 mg tablet 200 mg PO DAILY 07/18/24 08/24/24 08/04/24 History atorvastatin 40 mg tablet 40 mg PO QPM 07/18/24 08/24/24 08/04/24 History tramadol 50 mg tablet 50 mg PO Q6H PRN Pain 07/18/24 08/24/24 Unknown History budesonide-formoterol HFA 80 1 inh inhalation BID #10.2 grams 07/23/24 08/24/24 08/04/24 Rx mcg-4.5 mcg/actuation aerosol inhaler (Symbicort) nebulizer and compressor ([id number] #1 ea 07/23/24 08/24/24 Unknown Rx Nebulizer) sacubitril 24 mg-valsartan 26 mg 1 tab PO BID #60 tabs 07/25/24 08/24/24 08/04/24 Rx tablet (Entresto) aspirin 81 mg tablet,delayed 81 mg PO DAILY #30 tabs 08/07/24 08/24/24 Unknown Rx release doxycycline monohydrate 100 mg 100 mg PO BID #8 tabs 08/07/24 08/24/24 Unknown Rx tablet metoprolol tartrate 25 mg tablet 12.5 mg (1/2 x 25 mg) PO 08/07/24 08/24/24 Unknown Rx BID@0900,2100 #60 tabs neomycin-bacitracn Zn-polymyx 3.5 1 applic topical BID #30 grams 08/07/24 08/24/24 Unknown Rx mg-400 unit-5,000 unit/gram top oint (Triple Antibiotic) potassium chloride 20 mEq 10 meq (1/2 x 20 mEq) PO DAILY #30 08/07/24 08/24/24 08/04/24 Rx tablet,extended release(part/cryst) tabs ranolazine 500 mg tablet,extended 1,000 mg (2 x 500 mg) PO BID #120 08/07/24 08/24/24 Unknown Rx release,12 hr tabs losartan 25 mg tablet 25 mg PO DAILY #30 tabs 08/08/24 08/24/24 08/04/24 Rx prednisone 50 mg tablet 50 mg PO DAILY #5 tabs 10/16/24 Unknown Rx Allergies Allergy/AdvReac Type Severity Reaction Status Date / Time No Known Allergies Allergy Verified 09/18/24 19:54 PFSH Acute PFSH: Medical History Dyslipidemia Essential (primary) hypertension COPD (chronic obstructive pulmonary disease) Chronic hypoxic respiratory failure, on home oxygen therapy Diabetes mellitus, type II, insulin dependent CAD (coronary artery disease) Paroxysmal A-fib CKD (chronic kidney disease) CHF (congestive heart failure) Respiratory arrest has required intubation Non-STEMI (non-ST elevated myocardial infarction) Contrast-induced nephropathy Surgical History Hx of hysterectomy Hx of CABG Family History Unknown No problems noted. Social History Smoking and tobacco/nicotine status: former use of tobacco/nicotine Alcohol intake: never Substance/Drug Use: never Vitals/I&O/Wt Last Vital Signs Temp 98.0 F 10/28/24 14:35 Pulse 77 10/28/24 19:05 Resp 18 10/28/24 19:05 BP 158/77 10/28/24 14:35 Pulse Ox 96 10/28/24 19:05 O2 Del Method Nasal Cannula 10/28/24 19:05 O2 Flow Rate 3 10/28/24 19:05 Weight last 48 hrs Weight 160 lb Physical Exam Narrative: GENERAL: Patient is alert and oriented ?3 and in no acute distress. The following is a focused bilateral lower extremity exam. VASCULAR: Dorsalis pedis diminished bilaterally. Posterior tibial arteries diminished. Capillary refill time less than 5 seconds to the distal hallux bilaterally. Calf is supple and nontender proximally and distally. Decreased pedal hair growth, edema to the left great toe. NEUROLOGICAL: Protective sensation intact 6/10 sites, tested with Bock Sergio monofilament to bilateral feet. DERMATOLOGICAL: Full-thickness wound probes to bone left great toe medial aspect of the hallux interphalangeal joint has necrotic base with purulent drainage and surrounding erythema, pet hair is intertwined within the fibrotic wound bed. Wound measures 1.9 cm x 1.7 cm x 0.4 cm. MUSCULOSKELETAL: Bilateral hallux valgus not track bound, hammertoe deformities of digits 2, 3, 4, 5 left and right foot. Pes planus foot type. Pain and guarding encountered with wound culture and debridement left great toe. Data 10/28/24 18:00 10/28/24 18:00 A&P Assessment and plan (1) Diabetes mellitus, type II, insulin dependent: (2) Osteomyelitis of great toe of left foot: PROCEDURE: Full thickness wound debridement Location: Left great toe Local Anesthesia: none due to neuropathy Consent: Verbal Sterile Prep: with alcohol Details: Full thickness sharp debridement of the wound was performed using sterile dermal curette. The wound was debrided of hyperkeratotic rim and devitalized and fibrotic tissue down to bone, being the deepest level of debridement. Predebridement measurements: 1.9 cm x 1.7 cm x 0.4 cm Postdebridement measurements: 2.2 cm x 1.8 cm x 0.4 cm Hemostasis: Pressure Irrigation: sterile saline Dressing: Betadine wet-to-dry Estimated Blood Loss: minimal Offloading: Nonweightbearing (3) Cellulitis of great toe, left: (4) Noncompliance: Noncompliance with wound care follow-up, noncompliance with offloading left foot wound. 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 Wound debrided as above, postdebridement wound culture taken and sent to microbiology Hospital admission, podiatry consulted for surgical intervention, planned left great toe amputation tomorrow at noon 10/29/2024 pending OR availability. Given poor quality of surrounding soft tissue will require IV antibiotics and clinical monitoring for possible delayed closure later during this hospitalization. Diminished pedal pulses, recommend noninvasive vascular studies ANAHI/TBI/PVR, anticipate possible vascular intervention. Nonweightbearing left foot N.p.o. at midnight Podiatry will follow. PDMP PDMP Reviewed: Not Reviewed Coding Level of Care Code Acute Code for [facility] Fwd Diagnoses Diabetes mellitus, type II, insulin dependent E11.9; Z79.4 Osteomyelitis of great toe of left foot M86.9 Cellulitis of great toe, left L03.032 Noncompliance Z91.199
[2024-10-28 19:35] VITALS: BP 179/90; PULSE 77; RESP 18; O2SAT 99
[2024-10-28] MEDS: piperacillin-tazobactam 3.375 GM in sodium chloride 0.9% (plus) 50 ML IV (19:49)
[2024-10-28] MEDS: VANCOMYCIN ADD-Vantage 1,000 MG in 0.9% NaCl ADD-Vantage 250 ML 250 MG IV (19:49)
[2024-10-28 20:37] VITALS: BP 158/56; PULSE 78; RESP 18; O2SAT 94
[2024-10-28 21:26] VITALS: BMI 32.3
[2024-10-28 22:47] VITALS: RESP 16
[2024-10-28] MEDS: morphine 4 mg/mL SDV 1 mL IVP (22:47)
[2024-10-28 23:01] VITALS: BP 145/64; PULSE 60; RESP 16; TEMP 36.7; O2SAT 90
[2024-10-29] VITALS (20 sets, daily range): BP systolic 103–147; BP diastolic 47–77; PULSE 56–86; RESP 16–26; TEMP 36.5–36.7; O2SAT 90–100
--- NOTE | 2024-10-29 01:10 | PM.HP ---
Providers/Chief Complaint Admitting Physician: Agata Campos MD--patient seen before midnight Primary Care Provider: Antonio Delgado MD Chief Complaint: L foot problems sent from [facility] History of Present Illness Sally Henderson is a 84 year old female with medical history significant for diabetes. Patient had gone for a routine visit to the primary care doctor who examined her and found out that the left great toe has wound that has not been healing that looks bad. Patient was sent from the doctor's office to the emergency room for further evaluation of that foot. Here at the emergency room the attending physician for the ED did an x-ray of the left great toe and it was significant for osteomyelitis. Podiatry was consulted by the emergency room attending who related to the emergency department to keep the patient n.p.o. that he will be taking the patient to the surgery in the morning for the care of the left great toe. Patient was given vancomycin and Zosyn in the emergency room. I have initiated vancomycin for pharmacy to dose to keep the trough of vancomycin between 15 and 20. Patient to continue with Zosyn for care to cover for any anaerobic's and gram-negative. Patient has been made n.p.o. pain management on board with morphine. Review of Systems Narrative: Generally patient is doing well and systemic review upon 10 organ system reviewed with him on the remarkable for musculoskeletal system reference osteomyelitis of the left great toe. Medications/Allergies Home Medications ?Medication ?Instructions ?Recorded ?Confirmed ?Last Taken ?Type clopidogrel 75 mg tablet 75 mg PO BEDTIME #90 tabs 03/27/24 10/29/24 10/27/24 Rx nitroglycerin 0.4 mg sublingual 0.4 mg buccal PRN PRN Chest Pain 04/10/24 10/29/24 Unknown History tablet furosemide 40 mg tablet 40 mg PO BID@0800,1400 30 days #60 05/28/24 10/29/24 10/28/24 Rx tabs isosorbide mononitrate 60 mg 60 mg PO DAILY 06/07/24 10/29/24 10/28/24 History tablet,extended release 24 hr insulin aspart U-100 100 unit/mL See Rx Instructions .Route 06/11/24 10/29/24 08/04/24 Rx (3 mL) subcutaneous pen (Novolog .COMPLEX #15 mL FlexPen U-100 Insulin aspart) amiodarone 200 mg tablet 200 mg PO DAILY 07/18/24 10/29/24 10/28/24 History atorvastatin 40 mg tablet 40 mg PO QPM 07/18/24 10/29/24 10/27/24 History tramadol 50 mg tablet 50 mg PO Q6H PRN Pain 07/18/24 10/29/24 10/28/24 History budesonide-formoterol HFA 80 1 inh inhalation BID #10.2 grams 07/23/24 10/29/24 10/28/24 Rx mcg-4.5 mcg/actuation aerosol inhaler (Symbicort) nebulizer and compressor (CVZ248 #1 ea 07/23/24 10/29/24 Unknown Rx Nebulizer) sacubitril 24 mg-valsartan 26 mg 1 tab PO BID #60 tabs 07/25/24 10/29/24 10/28/24 Rx tablet (Entresto) aspirin 81 mg tablet,delayed 81 mg PO DAILY #30 tabs 08/07/24 10/29/24 10/28/24 Rx release metoprolol tartrate 25 mg tablet 12.5 mg (1/2 x 25 mg) PO 08/07/24 10/29/24 10/28/24 Rx BID@0900,2100 #60 tabs neomycin-bacitracn Zn-polymyx 3.5 1 applic topical BID #30 grams 08/07/24 10/29/24 10/28/24 Rx mg-400 unit-5,000 unit/gram top oint (Triple Antibiotic) potassium chloride 20 mEq 10 meq (1/2 x 20 mEq) PO DAILY #30 08/07/24 10/29/24 10/28/24 Rx tablet,extended release(part/cryst) tabs ranolazine 500 mg tablet,extended 1,000 mg (2 x 500 mg) PO BID #120 08/07/24 10/29/24 10/28/24 Rx release,12 hr tabs losartan 25 mg tablet 25 mg PO DAILY #30 tabs 08/08/24 10/29/24 10/28/24 Rx albuterol sulfate 2.5 mg/3 mL 2.5 mg continuous nebulization TID 10/29/24 10/29/24 Unknown History (0.083 %) solution for nebulization PRN Shortness Of Breath insulin degludec 200 unit/mL (3 27 unit SUBCUT DAILY 10/29/24 10/29/24 10/28/24 History mL) subcutaneous pen (Tresiba FlexTouch U-200 insulin) Allergies Allergy/AdvReac Type Severity Reaction Status Date / Time No Known Allergies Allergy Verified 09/18/24 19:54 PFSH Acute PFSH: Medical History Dyslipidemia Essential (primary) hypertension COPD (chronic obstructive pulmonary disease) Chronic hypoxic respiratory failure, on home oxygen therapy Diabetes mellitus, type II, insulin dependent CAD (coronary artery disease) Paroxysmal A-fib CKD (chronic kidney disease) CHF (congestive heart failure) Respiratory arrest has required intubation Non-STEMI (non-ST elevated myocardial infarction) Contrast-induced nephropathy Surgical History Hx of hysterectomy Hx of CABG Family History Unknown No problems noted. Social History Smoking and tobacco/nicotine status: former use of tobacco/nicotine Alcohol intake: never Substance/Drug Use: never Vitals/I&O/Wt Last Vital Signs Temp 98.0 F 10/28/24 23:01 Pulse 60 10/28/24 23:01 Resp 16 10/28/24 23:01 BP 145/64 10/28/24 23:01 Pulse Ox 90 10/28/24 23:01 O2 Del Method Nasal Cannula 10/28/24 23:01 O2 Flow Rate 3 10/28/24 23:01 10/28/24 10/28/24 10/29/24 14:59 22:59 06:59 Intake Total 300 / 300 Balance 300 / 300 Weight last 48 hrs Weight 72.575 kg Weight 72.575 kg Physical Exam Narrative: Generally patient looks well in no apparent distress except for complaints of pain to the left great toe HEENT normocephalic/atraumatic neck neck is supple cardiovascular heart rate is regular lungs are pretty much clear abdomen soft nontender nondistended unremarkable extremities intact no edema has good pulses. Left great toe with wound in the central portion of the left great toe. Data 10/30/24 04:59 10/30/24 04:59 Micro: Microbiology 10/28/24 19:29 Blood Culture - Preliminary Blood SPECIMEN COLLECTED 10/28/24 19:30 Blood Culture - Preliminary Blood SPECIMEN COLLECTED A&P Assessment and plan (1) Osteomyelitis of great toe of left foot: - X-ray finding of left great toe osteomyelitis - Antibiotics initiated with vancomycin and Zosyn - Pain management with morphine IV, patient responding - Podiatry consulted with Dr. Renee and will be seeing patient regarding care of the left great toe osteomyelitis (2) Diabetic foot ulcer associated with type 2 diabetes mellitus: - Patient with diabetic foot ulcer complicated with infection significant for a left great toe osteomyelitis - Continue antibiotics follow the recommendation of technology coordinator - Continue to keep patient n.p.o. after midnight for surgery - Keep patient euglycemic (3) Cellulitis of great toe, left: - Continue to treat with antibiotics regarding cyst surrounding cellulitis of the left great toe - Continue antibiotics and local wound care (4) Leukocytosis: - Mild leukocytosis - Continue care with antibiotics podiatry on consult on the case (5) CKD (chronic kidney disease): Chronic renal failure resolved creatinine at this time is 1 with a BUN of 16 Plan GI and DVT prophylaxis in place PDMP PDMP Reviewed: Last Reviewed 10/30/24 06:43 by Agata Campos MD Attestations Medical Necessity Statement*: Patient with infection of the soft tissue and the bone significant for cellulitis and osteomyelitis of the left great toe requires at least 2 midnights for care and optimization of affected left great toe Coding Level of Care Code 27929 Diagnoses Osteomyelitis of great toe of left foot M86.9 Diabetic foot ulcer associated with type 2 diabetes mellitus E11.621; L97.509 Cellulitis of great toe, left L03.032 Leukocytosis, unspecified type D72.829 Leukocytosis type: unspecified Stage 3a chronic kidney disease N18.31 Chronic kidney disease stage: stage 3 (moderate) Chronic kidney disease stage 3 subtype: stage 3a (GFR 45-59) Time Spent (min) 60
[2024-10-29] MEDS: sodium chloride 0.9% 1,000 ML 100 ML IV ×2 (01:35→17:57)
[2024-10-29] MEDS: piperacillin-tazobactam 3.375 GM in sodium chloride 0.9% (plus) 50 ML IV ×3 (02:23→17:54)
[2024-10-29 06:49] LABS: Basophils % 0.3 %; Eosinophils # 0.3 10^3/uL (0.0-0.8); Eosinophils % 2.3 %; Hematocrit 35.8 % (36-47); Lymphocytes # 1.1 10^3/uL (0.8-4.8); Lymphocytes % 10.2 %; Mean Corpuscular HGB Conc 28.8 g/dL (30-55); Mean Corpuscular Hemoglobin 25.2 pg (27-33); Mean Corpuscular Volume 87.5 fl (85-98); Mean Platelet Volume 10.8 fL (7.4-10.4); Monocytes % 8.5 %; Neutrophils % 78.3 %; Nucleated Red Blood Cells % 0 %; Platelet Count 337 10^3/cmm (157-399); Red Blood Count 4.09 10^6/uL (3.85-5.65); White Blood Count 11.22 10^3/uL (3.29-11.43)
[2024-10-29 07:48] LABS: Alanine Aminotransferase 7 U/L (0-33); Albumin Level 2.9 g/dL (3.5-5.2); Alkaline Phosphatase 83 U/L (35-105); Anion Gap 13.4 (5-19); Aspartate Amino Transferase 11 U/L (0-32); Blood Urea Nitrogen 20 mg/dL (8-23); Calcium 8.4 mg/dL (8.5-10.5); Carbon Dioxide 25 mmol/L (22-29); Chloride 104 mmol/L (98-107); Globulin 3.6 g/dL (1.3-4.6); Glucose 237 mg/dL (65-115); Osmolality Calculated 296 mOsm/kg (285-295); Phosphorus 3.4 mg/dL (2.5-4.5); Potassium 4.4 mmol/L (3.5-5.1); Sodium 138 mmol/L (136-145); Total Protein 6.5 g/dL (6.6-8.7)
--- NOTE | 2024-10-29 08:55 | PC.PHAR ---
Pt also has an order for [employer] apply to affected area daily 09/13/24 30ds. It will not transfer in to pts' chart for some reason.
[2024-10-29] MEDS: morphine 4 mg/mL SDV 1 mL IVP ×2 (09:02→15:31)
[2024-10-29] MEDS: heparin 5,000 unit/mL INJ 1 mL 5000 UNIT SUBCUT ×2 (09:04→19:41)
[2024-10-29 11:03] LABS: Glucose Point of Care 222 mg/dL (70-110)
--- NOTE | 2024-10-29 11:17 | ANES.PREANE2 ---
Pre-Anesthetic Assessment Height/Weight: Height 4 ft 11 in Weight 163 lb Temp Pulse Resp BP Pulse Ox O2 Del Method O2 Flow Rate 98.0 F 66 18 132/68 100 Nasal Cannula 2 10/29/24 07:38 10/29/24 07:38 10/29/24 09:02 10/29/24 07:38 10/29/24 07:38 10/29/24 07:38 10/29/24 03:49 Preop Diagnosis: Osteomyelitis left great toe Operation Date: 10/29/24 12:00 Proposed Procedures p Amputation Toe/s Toe Amputation(Left) - BITA StoneM Was Beta Stephanie taken within 24 hours: Yes Was Clonidine taken within 24 hours: N/A Last intake: Intake Last Liquid Date 10/28/24 Last Liquid Time 23:55 Last Solid Date 10/28/24 Last Solid Time 12:00 Social No alcohol and No tobacco Exam alert, oriented x 3 and regular rate & rhythm Airway Submandibular: within normal limits Cervical ROM: Other (Short neck) Mallampati: Class IV Comments: Comments: Small mouth opening Anesthetic Plan ASA status: 3 Anesthesia: MAC Other: No prior issues with anesthesia NPO since yesterday around noon History of type 2 diabetes, on insulin. Glucose 237 this a.m. Labs reviewed from today, hemoglobin 10.3 COPD, on home O2. 2-3 L at baseline CKD EKG showing sinus rhythm with moderate conduction delay Echo performed in August showing EF of 45% Plan for MAC anesthesia Medications/Allergies Home Medications ?Medication ?Instructions ?Recorded ?Confirmed ?Last Taken ?Type clopidogrel 75 mg tablet 75 mg PO BEDTIME #90 tabs 03/27/24 10/29/24 10/27/24 Rx nitroglycerin 0.4 mg sublingual 0.4 mg buccal PRN PRN Chest Pain 04/10/24 10/29/24 Unknown History tablet furosemide 40 mg tablet 40 mg PO BID@0800,1400 30 days #60 05/28/24 10/29/24 10/28/24 Rx tabs isosorbide mononitrate 60 mg 60 mg PO DAILY 06/07/24 10/29/24 10/28/24 History tablet,extended release 24 hr insulin aspart U-100 100 unit/mL See Rx Instructions .Route 06/11/24 10/29/24 08/04/24 Rx (3 mL) subcutaneous pen (Novolog .COMPLEX #15 mL FlexPen U-100 Insulin aspart) amiodarone 200 mg tablet 200 mg PO DAILY 07/18/24 10/29/24 10/28/24 History atorvastatin 40 mg tablet 40 mg PO QPM 07/18/24 10/29/24 10/27/24 History tramadol 50 mg tablet 50 mg PO Q6H PRN Pain 07/18/24 10/29/24 10/28/24 History budesonide-formoterol HFA 80 1 inh inhalation BID #10.2 grams 07/23/24 10/29/24 10/28/24 Rx mcg-4.5 mcg/actuation aerosol inhaler (Symbicort) nebulizer and compressor (GFI129 #1 ea 07/23/24 10/29/24 Unknown Rx Nebulizer) sacubitril 24 mg-valsartan 26 mg 1 tab PO BID #60 tabs 07/25/24 10/29/24 10/28/24 Rx tablet (Entresto) aspirin 81 mg tablet,delayed 81 mg PO DAILY #30 tabs 08/07/24 10/29/24 10/28/24 Rx release metoprolol tartrate 25 mg tablet 12.5 mg (1/2 x 25 mg) PO 08/07/24 10/29/24 10/28/24 Rx BID@0900,2100 #60 tabs neomycin-bacitracn Zn-polymyx 3.5 1 applic topical BID #30 grams 08/07/24 10/29/24 10/28/24 Rx mg-400 unit-5,000 unit/gram top oint (Triple Antibiotic) potassium chloride 20 mEq 10 meq (1/2 x 20 mEq) PO DAILY #30 08/07/24 10/29/24 10/28/24 Rx tablet,extended release(part/cryst) tabs ranolazine 500 mg tablet,extended 1,000 mg (2 x 500 mg) PO BID #120 08/07/24 10/29/24 10/28/24 Rx release,12 hr tabs losartan 25 mg tablet 25 mg PO DAILY #30 tabs 08/08/24 10/29/24 10/28/24 Rx albuterol sulfate 2.5 mg/3 mL 2.5 mg continuous nebulization TID 10/29/24 10/29/24 Unknown History (0.083 %) solution for nebulization PRN Shortness Of Breath insulin degludec 200 unit/mL (3 27 unit SUBCUT DAILY 10/29/24 10/29/24 10/28/24 History mL) subcutaneous pen (Tresiba FlexTouch U-200 insulin) Allergies Allergy/AdvReac Type Severity Reaction Status Date / Time No Known Allergies Allergy Verified 09/18/24 19:54 Current Medications Generic Name Dose Route Start Last Admin Trade Name Freq PRN Reason Stop Dose Admin Docusate Sodium 100 mg 10/29/24 09:00 10/29/24 09:04 Docusate Sodium 100 Mg Capsule PO Not Given BID LI Heparin Sodium (Porcine) 5,000 unit 10/29/24 09:00 10/29/24 09:04 Heparin 5,000 Unit/Ml Inj 1 Ml SUBCUT 5,000 unit Q12H LI Administration Sodium Chloride 1,000 mls @ 100 mls/hr 10/29/24 01:00 10/29/24 01:35 Sodium Chloride 0.9% IV 100 mls/hr .Q10H LI Administration Piperacillin Sod/Tazobactam 50 mls @ 12.5 mls/hr 10/29/24 02:00 10/29/24 09:04 Sod 3.375 gm/ Sodium Chloride IV 12.5 mls/hr Q8H LI Administration Protocol Morphine Sulfate 4 mg 10/29/24 01:30 10/29/24 09:02 Morphine 4 Mg/Ml Sdv 1 Ml IVP 4 mg Q4H PRN Administration SEVERE PAIN PFSH Anesthesia Medical History Dyslipidemia Essential (primary) hypertension COPD (chronic obstructive pulmonary disease) Chronic hypoxic respiratory failure, on home oxygen therapy Diabetes mellitus, type II, insulin dependent CAD (coronary artery disease) Paroxysmal A-fib CKD (chronic kidney disease) CHF (congestive heart failure) Respiratory arrest has required intubation Non-STEMI (non-ST elevated myocardial infarction) Contrast-induced nephropathy Surgical History Hx of hysterectomy Hx of CABG Family History Unknown No problems noted. Social History Smoking and tobacco/nicotine status: former use of tobacco/nicotine Alcohol intake: never Substance/Drug Use: never Data Anesthesia 10/29/24 05:39 10/29/24 05:39 Short CBC 10/28/24 10/29/24 Range/Units 18:00 05:39 WBC 15.01 H 11.22 (3.29-11.43) 10^3/uL Hgb 10.90 L 10.30 L (11.27-16.99) g/dL Hct 36.8 35.8 L (36-47) % MCV 84.8 L 87.5 (85-98) fl Plt Count 424 H 337 (157-399) 10^3/cmm Neut % (Auto) 82.3 78.3 % Neut # (Auto) 12.35 H 8.80 H (1.8-7.7) 10^3/uL BMP 10/28/24 10/29/24 18:00 05:39 Sodium 140 138 Potassium 4.5 4.4 Chloride 101 104 Carbon Dioxide 25 25 BUN 19 20 Creatinine 0.9 1.0 H Glucose 245 H 237 H Calcium 8.9 8.4 L Liver Function 10/28/24 10/29/24 Range/Units 18:00 05:39 Total Bilirubin 0.3 (0.15-1.2) mg/dL AST 12 11 (0-32) U/L ALT 8 7 (0-33) U/L Alkaline Phosphatase 85 83 (35-105) U/L Albumin 3.3 L 2.9 L (3.5-5.2) g/dL Coags 10/28/24 18:00 ESR 47 H C-Reactive Protein 45.2 H Microbiology 10/28/24 20:00 Wound Culture - Preliminary Toe - #1 10/28/24 19:29 Blood Culture - Preliminary Blood SPECIMEN COLLECTED 10/28/24 19:30 Blood Culture - Preliminary Blood SPECIMEN COLLECTED Cardiac Studies: Echocardiogram 04/10/24 Echocardiogram Limited Views 08/24/24
[2024-10-29 11:30] LABS: Glucose Point of Care 215 mg/dL (70-110)
[2024-10-29 11:39] LABS: Total Bilirubin 0.3 mg/dL (0.15-1.2)
--- NOTE | 2024-10-29 11:40 | W.PM.OPSUD ---
Surgery/Procedure H&P Update DATE OF PROCEDURE: October 29, 2024 DATE H&P PERFORMED: 10/28/24 H&P UPDATE INFORMATION: I have reviewed H&P completed within last 30 days, I have examined patient prior to procedure, No changes to prior documentation and Risks and benefits of the procedure reviewed PREOP DIAGNOSIS: Osteomyelitis left great toe PLANNED PROCEDURE: Operation Date: 10/29/24 12:00 Proposed Procedures p Amputation Toe/s Toe Amputation(Left) - Jean Paul Renee DPM
[2024-10-29] MEDS: lidocaine 1% 10 ML INJ 30 ML XX (12:19)
--- NOTE | 2024-10-29 12:32 | W.PM.BPON ---
Date of Procedure: 07/28/23 Surgeon: Jean Paul Renee DPM Caustic Mixer(s): Sarath Procedure(s) performed: Left great toe amputation Findings of the procedure(s): Necrotic tissue including bone left great toe Estimated blood loss: 10 mL Specimen(s) removed: Left great toe sent to pathology for permanent, bone from left great toe sent to microbiology for Gram stain, culture and sensitivity. Post-operative diagnosis: Acute osteomyelitis left great toe. Septic joint left hallux interphalangeal joint. Cellulitis left foot.
--- NOTE | 2024-10-29 12:33 | P.OP_ITS ---
Operative Report Date of procedure: October 29, 2024 Pre-op diagnosis: Osteomyelitis left great toe Cellulitis left great toe Septic joint left hallux interphalangeal joint Post-op diagnosis: Same Post-op findings: Devitalized soft tissue and bone involving the distal and proximal phalanx of the left great toe Procedure done: Left great toe amputation at metatarsal phalangeal joint. CPT code 43821 Implants: 3-0 nylon Specimens removed/disposition: Bone left great toe sent to microbiology for culture Pathology: left great toe sent to pathology for permanent Surgeon: Jean Paul Renee DPM Laborer Shellfish Processing: Sarath Estimated blood loss: 10 7 IV fluids: See intraoperative documentation Urine output: 0 Complications: 0 Brief History: Sally Henderson is a 84 year old insulin-dependent diabetic female presents with foul-smelling wound to the left great toe. Wound has been present for greater than 1 year started as a small wound limited to breakdown of skin associate with diabetes, neuropathy and a bunion deformity at her left great toe was first documented August 2024 during hospital admission. I was consulted on patient in September 2024 in the left great toe wound had progressed to subcutaneous tissue, was negative for osteomyelitis at that time, she was advised to wear a cam boot for offloading, patient refused, was advised to follow-up in wound care clinic, patient did not follow-up, advised diabetic shoes, patient did not follow through on getting them. Unfortunately patient's wound has progressed over the past year, she presents tonight in the emergency department stating that over the past week she noticed foul odor and a worsening of the wound, wound has pet hair, redness to the midfoot. Procedure: Under mild sedation the patient was brought to the operating room and remained on the gurney in supine position. A timeout was performed. Anesthesia was then administered by the anesthesia service. Local anesthesia injected by myself consisting of 30 cc of 1% lidocaine plain in a left Gelz block fashion. Well- padded pneumatic tourniquet applied to the left ankle. Left lower extremity was then scrubbed, prepped and draped utilizing normal aseptic technique. Left foot was then elevated and tourniquet inflated to 250 mmHg. Attention was directed to the left great toe which was noted to have foul- smelling wound that probes directly to bone with necrotic base, wound was from medial to hallux interphalangeal joint and tracked plantarly about the plantar aspect of the hallux interphalangeal joint through bone and tendon. A tennis racquet incision was performed full-thickness down to bone encompassing the left first metatarsal phalangeal joint which was sharply disarticulated and passed from the operative field, bone from the hallux interphalangeal joint encompassing the base of the distal phalanx and head of the proximal phalanx was sent to microbiology for Gram stain culture and sensitivity and remaining left great toe at the pathology for gross anatomical review and permanent. The incision was irrigated with copious amounts of sterile saline solution and Irrisept. All bleeders were ligated and cauterized as necessary. Questionable skin margins especially dorsally and laterally at the amputation site necessitated staged procedure for further debridement and possible delayed closure if appropriate during his hospitalization. The skin flaps at the potation site were loosely approximated with 3-0 nylon to help prevent contracture of soft tissue. The incision was dressed with saline wet-to-dry 4 x 4 gauze, Kerlix and Coban without compression as did not impede circulation. Tourniquet was deflated and a hyperemic response was noted to the digits 2 through 5 to the left foot. Patient tolerated the procedure and anesthesia well and was transferred to the PACU with vital signs stable and vascular status intact. Following a period of postoperative monitoring she will be transferred back to the floor to continue empiric IV antibiotics, will round daily and monitor soft tissue quality for possible delayed closure if indicated during this hospitalization.
--- NOTE | 2024-10-29 12:52 | ANE.PACU2 ---
Inpatient post-anesthesia follow up: Airway intact: Yes Vital signs: Temperature 98.0 F Pulse Rate 68 Respiratory Rate 18 Blood Pressure 112/58 Pulse Oximetry 93 Oxygen Delivery Me thod Nasal Cannula Oxygen Flow Rate 1.5 Fraction of Inspir ed Oxygen Hydration adequate: Yes Nausea and vomiting: No Pain level: 1 Mental status: Baseline
--- NOTE | 2024-10-29 13:09 | PM.PN ---
Subjective Subjective: seen this morning awaiting debdridement at noon with Dr. Renee Vitals/I&O/Wt Last Vital Signs Temp 97.8 F 10/29/24 12:24 Pulse 65 10/29/24 12:49 Resp 18 10/29/24 12:49 BP 122/69 10/29/24 12:49 Pulse Ox 98 10/29/24 12:49 O2 Del Method Nasal Cannula 10/29/24 12:49 O2 Flow Rate 2 10/29/24 12:49 10/28/24 10/29/24 10/29/24 22:59 06:59 14:59 Intake Total 300 / 300 50 / 350 50 / 50 Output Total 160 / 160 Balance 300 / 300 50 / 350 -110 / -110 Weight last 48 hrs Weight 73.936 kg Weight 72.575 kg Weight 72.575 kg Physical Exam Narrative: Patient alert orinted x 3. Good bilateral air entry, no wheezes or ronchi Normocephalic atraumatic, EOMI Normal S1-S2 Abdomen soft nontender Heart: Normal S1-S2, regular rate rhythm. Left toe wrapped with bandage. Urinary Catheter Management: Huff: Cath Placed During This Visit: yes Reason for Continuing Indwelling Catheter: Accurate Measurement of Urinary Output in Critically Ill Patients Urinary Catheter Date of Insertion: 08/24/24 Urinary Catheter Time of Insertion: 09:40 Data 10/29/24 05:39 10/29/24 05:39 Micro: Microbiology 10/28/24 20:00 Wound Culture - Preliminary Toe - #1 10/28/24 19:29 Blood Culture - Preliminary Blood SPECIMEN COLLECTED 10/28/24 19:30 Blood Culture - Preliminary Blood SPECIMEN COLLECTED A&P Assessment and plan (1) Essential (primary) hypertension: (2) Congestive heart failure: (3) CAD (coronary artery disease): (4) Paroxysmal A-fib: (5) Dyslipidemia: (6) CKD (chronic kidney disease): (7) Diabetes mellitus, type II, insulin dependent: (8) Anemia: (9) Leukocytosis: (10) Cellulitis of great toe, left: (11) COPD (chronic obstructive pulmonary disease): (12) Chronic hypoxic respiratory failure, on home oxygen therapy: (13) Acute hypoxemic respiratory failure: (14) Hypercapnic respiratory failure: (15) Pneumonia: Plan #Left foot infection #Chronic diastolic CHF #Diabetes mellitus with hyperglycemia #CKD #CAD #Paroxysmal atrial fibrillation #COPD #Dyslipidemia #Anemia #Chronic leukocytosis ? Continue on Lasix 40 BID home dose ? Continue Lantus 27 units at bedtime and insulin sliding scale moderate dose intensity ? Anemia chronic most likely normocytic. ? Leukocytosis 12.7 most likely secondary to chronic elevation. ? Podiatry consulted. Patient going for amputation today, - check cultures, continue IV abx ? Continue aspirin Plavix, Imdur, continue entresto ? Continue DuoNebs every 6 hours, PRN ? Continue ranolazine thousand twice daily. Of note patient did have recent coronary angiogram. She was deemed a candidate for medical management previously after she was transferred for consideration of high risk coronary intervention. Patient denies any chest pain at this time. Full code DVT prophylaxis: Heparin SQ twice daily PDMP PDMP Reviewed: Not Reviewed Attestations Medical Necessity Statement*: left toe amputation left foot infection needs cultures, antibiotics Diagnoses Essential (primary) hypertension I10 Congestive heart failure I50.9 Coronary artery disease involving [place] coronary artery of [place] heart with other form of angina pectoris I25.118 Associated angina: with other forms of angina Coronary Disease-Associated Artery/Lesion type: [place] artery [place] vs. transplanted heart: [place] heart Paroxysmal A-fib I48.0 Dyslipidemia E78.5 Stage 3a chronic kidney disease N18.31 Chronic kidney disease stage: stage 3 (moderate) Chronic kidney disease stage 3 subtype: stage 3a (GFR 45-59) Diabetes mellitus, type II, insulin dependent E11.9; Z79.4 Anemia due to other cause, not classified D64.89 Anemia type: other cause Other causes of anemia: other cause, not classified Leukocytosis, unspecified type D72.829 Leukocytosis type: unspecified Cellulitis of great toe, left L03.032 Panlobular emphysema J43.1 COPD type: emphysema Emphysema type: panlobular Chronic hypoxic respiratory failure, on home oxygen therapy J96.11; Z99.81 Acute hypoxemic respiratory failure J96.01 Hypercapnic respiratory failure J96.92 Pneumonia J18.9
[2024-10-29 16:28] LABS: Glucose Point of Care 276 mg/dL (70-110)
[2024-10-29] MEDS: HYDROcodone-acetaminophen 5-325 mg Tablet 1 TAB PO (16:34)
[2024-10-29] MEDS: ranolazine (12HR) 500 mg Tablet 1000 MG PO (17:49)
[2024-10-29] MEDS: atorvastatin 40 mg Tablet PO (17:49)
[2024-10-29] MEDS: docusate sodium 100 mg Capsule PO (17:50)
[2024-10-29] MEDS: insulin lispro 100 unit/1 mL SUBCUT ×2 (17:50→21:15)
[2024-10-29] MEDS: sacubitril/valsartan 24-26 mg Tablet 1 EACH PO (17:50)
[2024-10-29] MEDS: cyclobenzaprine 10 mg Tablet 5 MG PO (18:35)
[2024-10-29] MEDS: VANCOMYCIN ADD-Vantage 1,000 MG in 0.9% NaCl ADD-Vantage 250 ML 250 MG IV (18:35)
[2024-10-29] MEDS: gabapentin 300 mg Capsule PO (19:41)
[2024-10-29] MEDS: sennosides 8.6 mg Tablet 17.2 MG PO (19:41)
[2024-10-29] MEDS: clopidogrel 75 mg Tablet PO (19:42)
[2024-10-29] MEDS: metoprolol tartrate 25 mg Tablet 12.5 MG PO (19:42)
--- NOTE | 2024-10-29 20:20 | PHA.VACGOAL ---
Vancomycin Goal - Goal Vancomycin Goal:: 15-20 mg/L Vancomycin Indication:: Pneumonia - Therapy Current therapy:: Pip/Tazo Day of therpy:: Day [1]of [] . Actual body weight (kg): 73.936 kg - Data Labs: WBC 11.22 10^3/uL (3.29-11.43) 10/29/24 05:39 RBC 4.09 10^6/uL (3.85-5.65) 10/29/24 05:39 Hgb 10.30 g/dL (11.27-16.99) L 10/29/24 05:39 Hct 35.8 % (36-47) L 10/29/24 05:39 MCV 87.5 fl (85-98) 10/29/24 05:39 MCH 25.2 pg (27-33) L 10/29/24 05:39 MCHC 28.8 g/dL (30-55) L 10/29/24 05:39 RDW 16.0 % (12.1-15.1) H 10/29/24 05:39 Sodium 138 mmol/L (136-145) 10/29/24 05:39 Potassium 4.4 mmol/L (3.5-5.1) 10/29/24 05:39 Chloride 104 mmol/L (98-107) 10/29/24 05:39 Carbon Dioxide 25 mmol/L (22-29) 10/29/24 05:39 Anion Gap 13.4 (5-19) 10/29/24 05:39 BUN 20 mg/dL (8-23) 10/29/24 05:39 Creatinine 1.0 mg/dL (0.5-0.9) H 10/29/24 05:39 GFR Calculation Not Reportable 10/29/24 05:39 Treatment plan:: new consult Regimen:: New start vancomycin for pneumonia. Started on maintenance dose of 1000 mg q24h.
[2024-10-29 20:31] LABS: Glucose Point of Care 148 mg/dL (70-110)
[2024-10-29] MEDS: HYDROcodone-acetaminophen 5-325 mg Tablet PO (21:51)
[2024-10-30] VITALS (10 sets, daily range): BP systolic 74–122; BP diastolic 34–67; PULSE 54–83; RESP 16–19; TEMP 36.7–37.1; O2SAT 92–100
[2024-10-30] MEDS: piperacillin-tazobactam 3.375 GM in sodium chloride 0.9% (plus) 50 ML IV ×3 (01:56→17:51)
[2024-10-30] MEDS: sodium chloride 0.9% 1,000 ML 100 ML IV (01:59)
[2024-10-30] MEDS: cyclobenzaprine 10 mg Tablet 5 MG PO (04:46)
[2024-10-30 05:23] LABS: Basophils % 0.3 %; Eosinophils # 0.4 10^3/uL (0.0-0.8); Eosinophils % 3.2 %; Lymphocytes # 1.4 10^3/uL (0.8-4.8); Lymphocytes % 12.3 %; Mean Corpuscular HGB Conc 27.8 g/dL (30-55); Mean Corpuscular Hemoglobin 25.5 pg (27-33); Mean Corpuscular Volume 91.8 fl (85-98); Monocytes # 1.2 10^3/uL (0.2-0.9); Monocytes % 10.3 %; Neutrophils # 8.41 10^3/uL (1.8-7.7); Neutrophils % 73.6 %; Nucleated Red Blood Cells % 0 %; Platelet Count 309 10^3/cmm (157-399); Red Blood Count 3.92 10^6/uL (3.85-5.65); Red Cell Distribution Width 16.3 % (12.1-15.1); White Blood Count 11.45 10^3/uL (3.29-11.43)
[2024-10-30 05:40] LABS: Alanine Aminotransferase 8 U/L (0-33); Albumin Level 2.9 g/dL (3.5-5.2); Alkaline Phosphatase 72 U/L (35-105); Anion Gap 14.5 (5-19); Aspartate Amino Transferase 12 U/L (0-32); Blood Urea Nitrogen 16 mg/dL (8-23); Calcium 8.2 mg/dL (8.5-10.5); Carbon Dioxide 23 mmol/L (22-29); Chloride 108 mmol/L (98-107); Globulin 3.3 g/dL (1.3-4.6); Glucose 101 mg/dL (65-115); Magnesium 1.9 mg/dL (1.7-2.3); Osmolality Calculated 293 mOsm/kg (285-295); Potassium 4.5 mmol/L (3.5-5.1); Sodium 141 mmol/L (136-145); Total Bilirubin 0.4 mg/dL (0.15-1.2); Total Protein 6.2 g/dL (6.6-8.7)
--- NOTE | 2024-10-30 06:21 | P.PN_ITS ---
Subjective 2 Subjective: Patient seen bedside this a.m., was resting comfortably when entering the room. Endorses left foot pain. Patient denies any subjective nausea, vomiting, fever, chills, shortness of breath or chest pain. Vitals/I&O/Wt Last Vital Signs Temp 98.0 F 10/30/24 04:00 Pulse 83 10/30/24 04:00 Resp 16 10/30/24 04:00 BP 122/67 10/30/24 04:00 Pulse Ox 97 10/30/24 04:00 O2 Del Method Nasal Cannula 10/30/24 04:00 O2 Flow Rate 2 10/30/24 04:00 10/29/24 10/29/24 10/30/24 14:59 22:59 06:59 Intake Total 1050 / 1050 660 / 1710 853.333 / 2563.333 Output Total 160 / 160 950 / 1110 Balance 890 / 890 -290 / 600 853.333 / 1453.333 Weight last 48 hrs Weight 171 lb Weight 163 lb Weight 160 lb Weight 160 lb Physical Exam 2 Narrative: GENERAL: Patient is alert and oriented ?3 and in no acute distress. The following is a focused bilateral lower extremity exam. VASCULAR: Dorsalis pedis diminished bilaterally. Posterior tibial arteries diminished. Capillary refill time less than 5 seconds to the distal hallux bilaterally. Calf is supple and nontender proximally and distally. Decreased pedal hair growth, edema to the left great toe. NEUROLOGICAL: Protective sensation intact 6/10 sites, tested with [place] Sergio monofilament to bilateral feet. DERMATOLOGICAL: Resolved cellulitis left foot, skin flaps appear mostly viable, most lateral portion has some duskiness at the skin margin, no purulent drainage. 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 Urinary Catheter Management: Huff: Cath Placed During This Visit: yes Reason for Continuing Indwelling Catheter: Accurate Measurement of Urinary Output in Critically Ill Patients Urinary Catheter Date of Insertion: 08/24/24 Urinary Catheter Time of Insertion: 09:40 Data 10/30/24 04:59 10/30/24 04:59 Micro: Microbiology 10/30/24 05:55 Blood Culture - Preliminary Blood SPECIMEN COLLECTED 10/30/24 05:50 Blood Culture - Preliminary Blood SPECIMEN COLLECTED 10/28/24 19:30 Blood Culture - Preliminary Blood NEGATIVE TO DATE 10/28/24 19:29 Blood Culture - Preliminary Blood Staphylococcus species 10/28/24 20:00 Gram Stain - Final Toe - #1 Wound Culture - Preliminary A&P Assessment and plan (1) Diabetes mellitus, type II, insulin dependent: (2) Osteomyelitis of great toe of left foot: (3) Cellulitis of great toe, left: (4) Noncompliance: Noncompliance with wound care follow-up, noncompliance with offloading left foot wound. 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 Scheduled debridement with delayed closure of left great toe amputation site 10/31/2024 at noon N.p.o. at midnight Diminished pedal pulses, recommend noninvasive vascular studies ANAHI/TBI/PVR, anticipate possible vascular intervention. Nonweightbearing left foot Podiatry will follow. PDMP PDMP Reviewed: Not Reviewed Attestations 2 Medical Necessity Statement*: Requires continued IV antibiotics, wound cultures pending, requires further surgical debridement Coding Level of Care Code Acute Code for [facility] Fwd Diagnoses Diabetes mellitus, type II, insulin dependent E11.9; Z79.4 Osteomyelitis of great toe of left foot M86.9 Cellulitis of great toe, left L03.032 Noncompliance Z91.199
[2024-10-30 06:27] LABS: Glucose Point of Care 118 mg/dL (70-110)
[2024-10-30] MEDS: HYDROcodone-acetaminophen 5-325 mg Tablet PO ×3 (06:50→13:54)
[2024-10-30] MEDS: albuterol 2.5 mg/3 mL Neb NEBULIZER (08:18)
[2024-10-30] MEDS: sacubitril/valsartan 24-26 mg Tablet 1 EACH PO (09:14)
[2024-10-30] MEDS: docusate sodium 100 mg Capsule PO ×2 (09:14→17:52)
[2024-10-30] MEDS: aspirin 81 mg EC Tablet PO (09:15)
[2024-10-30] MEDS: ranolazine (12HR) 500 mg Tablet 1000 MG PO ×2 (09:15→17:52)
[2024-10-30] MEDS: metoprolol tartrate 25 mg Tablet 12.5 MG PO (09:15)
[2024-10-30] MEDS: gabapentin 300 mg Capsule PO (09:15)
[2024-10-30] MEDS: isosorbide mononitrate ER 60 mg Tablet PO (09:16)
[2024-10-30] MEDS: heparin 5,000 unit/mL INJ 1 mL 5000 UNIT SUBCUT ×2 (09:16→21:46)
[2024-10-30] MEDS: FUROsemide 40 mg Tablet PO ×2 (09:16→13:55)
[2024-10-30] MEDS: amiodarone 200 mg Tablet PO (09:16)
[2024-10-30] MEDS: insulin glargine 100 units/1 mL 27 UNIT SUBCUT (09:17)
--- NOTE | 2024-10-30 10:00 | PC.SOCIAL ---
IMM Update pg 2 of IMM Updated and reviewed w/ patient. Copy provided and copy dated, initialed and placed in chart.
[2024-10-30 11:02] LABS: Glucose Point of Care 243 mg/dL (70-110)
--- NOTE | 2024-10-30 12:17 | P.PN_ITS ---
Subjective 2 Subjective: Seen this morning. Patient s/p debridement. Plan for delayed closure back to OR on 10/30. Does have 2 out of 4 blood culture bottles positive for staph species. Most likely MRSA. I discussed with her the possibility of 6 weeks of IV antibiotics secondary to blood port infection. She states her son cannot coordinate that at home. I offered her to go to a nursing facility for 6 weeks. She stated as long as it is not permanent and she may consider it. Vitals/I&O/Wt Last Vital Signs Temp 98.2 F 10/30/24 11:47 Pulse 61 10/30/24 11:47 Resp 18 10/30/24 11:47 BP 96/49 10/30/24 11:47 Pulse Ox 92 10/30/24 11:47 O2 Del Method Nasal Cannula 10/30/24 11:47 O2 Flow Rate 1 10/30/24 08:20 10/29/24 10/30/24 10/30/24 22:59 06:59 14:59 Intake Total 660 / 1710 853.333 / 2563.333 240 / 240 Output Total 950 / 1110 Balance -290 / 600 853.333 / 1453.333 240 / 240 Weight last 48 hrs Weight 77.564 kg Weight 73.936 kg Weight 72.575 kg Weight 72.575 kg Physical Exam 2 Narrative: Patient alert orinted x 3. Good bilateral air entry, no wheezes or ronchi Normocephalic atraumatic, EOMI Normal S1-S2 Abdomen soft nontender Heart: Normal S1-S2, regular rate rhythm. Left toe wrapped with bandage. Urinary Catheter Management: Huff: Cath Placed During This Visit: yes Reason for Continuing Indwelling Catheter: Accurate Measurement of Urinary Output in Critically Ill Patients Urinary Catheter Date of Insertion: 08/24/24 Urinary Catheter Time of Insertion: 09:40 Data 10/30/24 04:59 10/30/24 04:59 Micro: Microbiology 10/30/24 05:55 Blood Culture - Preliminary Blood SPECIMEN COLLECTED 10/30/24 05:50 Blood Culture - Preliminary Blood SPECIMEN COLLECTED 10/28/24 19:30 Blood Culture - Preliminary Blood NEGATIVE TO DATE 10/28/24 19:29 Blood Culture - Preliminary Blood Staphylococcus species 10/28/24 20:00 Gram Stain - Final Toe - #1 Wound Culture - Preliminary A&P Assessment and plan (1) Essential (primary) hypertension: (2) Congestive heart failure: (3) CAD (coronary artery disease): (4) Paroxysmal A-fib: (5) Dyslipidemia: (6) CKD (chronic kidney disease): (7) Diabetes mellitus, type II, insulin dependent: (8) Anemia: (9) Leukocytosis: (10) Cellulitis of great toe, left: (11) COPD (chronic obstructive pulmonary disease): (12) Chronic hypoxic respiratory failure, on home oxygen therapy: (13) Bacteremia due to Staphylococcus: (14) Gangrene: Plan #Left foot infection #Chronic diastolic CHF #Diabetes mellitus with hyperglycemia #CKD #CAD #Paroxysmal atrial fibrillation #COPD #Dyslipidemia #Anemia #Chronic leukocytosis ? Continue on Lasix 40 BID home dose ? Continue Lantus 27 units at bedtime and insulin sliding scale moderate dose intensity ? Anemia chronic most likely normocytic. ? Leukocytosis 12.7 most likely secondary to chronic elevation. ? Podiatry consulted. Patient going for amputation today, - check cultures, continue IV abx ? Continue aspirin Plavix, Imdur, continue entresto ? Continue DuoNebs every 6 hours, PRN ? Continue ranolazine thousand twice daily. Of note patient did have recent coronary angiogram. She was deemed a candidate for medical management previously after she was transferred for consideration of high risk coronary intervention. Patient denies any chest pain at this time. Full code DVT prophylaxis: Heparin SQ twice daily 10/30/2024 Bacteremia: Will likely need 6 weeks of IV antibiotics for last negative blood culture. Will repeat blood cultures today. Consult infectious disease. Patient will be seen on 10/31. Discussed with Dr. Nguyen. Hopefully by then we will have culture data available. Plan for delayed wound closure 10/31. Discussed with Dr. Renee. Continue home medications. Will likely need penitentiary placement for 60s of IV antibiotics. Continue sliding scale insulin and Lantus Continue home medications from home Continue Entresto, ranolazine, Toprol tartrate, Imdur. Continue Plavix aspirin atorvastatin. Continue home Lasix. Stop IV fluids. BP slightly soft this morning. Continue to monitor. PDMP PDMP Reviewed: Not Reviewed Attestations 2 Medical Necessity Statement*: Requires continued IV antibiotics, wound cultures pending, requires further surgical debridement Diagnoses Essential (primary) hypertension I10 Congestive heart failure I50.9 Coronary artery disease involving [place] coronary artery of [place] heart with other form of angina pectoris I25.118 Associated angina: with other forms of angina Coronary Disease-Associated Artery/Lesion type: [place] artery [place] vs. transplanted heart: [place] heart Paroxysmal A-fib I48.0 Dyslipidemia E78.5 Stage 3a chronic kidney disease N18.31 Chronic kidney disease stage: stage 3 (moderate) Chronic kidney disease stage 3 subtype: stage 3a (GFR 45-59) Diabetes mellitus, type II, insulin dependent E11.9; Z79.4 Anemia due to other cause, not classified D64.89 Anemia type: other cause Other causes of anemia: other cause, not classified Leukocytosis, unspecified type D72.829 Leukocytosis type: unspecified Cellulitis of great toe, left L03.032 Panlobular emphysema J43.1 COPD type: emphysema Emphysema type: panlobular Chronic hypoxic respiratory failure, on home oxygen therapy J96.11; Z99.81 Bacteremia due to Staphylococcus R78.81; B95.8 Gangrene I96
[2024-10-30] MEDS: insulin lispro 100 unit/1 mL SUBCUT ×2 (12:40→18:28)
--- NOTE | 2024-10-30 15:03 | PC.OT ---
OT Eval attempted at 14:55; patient asleep and did not wake with verbal stimuli
[2024-10-30] MEDS: sodium chloride 0.9% 500 ML IV (16:10)
[2024-10-30] MEDS: VANCOMYCIN ADD-Vantage 1,000 MG in 0.9% NaCl ADD-Vantage 250 ML 250 MG IV (17:49)
[2024-10-30] MEDS: atorvastatin 40 mg Tablet PO (17:52)
--- NOTE | 2024-10-30 20:30 | PC.NURSE ---
This nurse was advised by G[employer] P[employer] WORKER that patients blood pressure was low at 88/51
[2024-10-30 20:43] LABS: Glucose Point of Care 141 mg/dL (70-110)
[2024-10-30 20:44] LABS: Glucose Point of Care 107 mg/dL (70-110)
--- NOTE | 2024-10-30 21:19 | XRR_ITS ---
PROCEDURE INFORMATION: Exam: XR Chest Exam date and time: 10/30/2024 9:44 PM Age: 84 years old Clinical indication: Shortness of breath; Additional info: SOB TECHNIQUE: Imaging protocol: Radiologic exam of the chest. Views: 1 view. COMPARISON: CR (CHEST, ) 10/16/2024 5:52 PM FINDINGS: Lungs: Bibasilar atelectasis versus minimal infiltrate. Pleural spaces: Unremarkable. No pleural effusion. No pneumothorax. Heart/Mediastinum: Cardiomegaly and pulmonary vascular congestion. Bones/joints: Sternotomy wires. XR/XR chest 1V portable [id number] IMPRESSION: 1. Cardiomegaly and pulmonary vascular congestion. 2. Sternotomy wires. 3. Bibasilar atelectasis versus minimal infiltrate.
[2024-10-31] VITALS (16 sets, daily range): BP systolic 88–124; BP diastolic 40–72; PULSE 55–73; RESP 16–18; TEMP 36.2–37.3; O2SAT 94–99
--- NOTE | 2024-10-31 02:56 | PC.NURSE ---
This nurse was advised patients blood pressure was 88/51. This nurse went into patients room to complete nursing shift assessment and found the patient shivering and complaining of pain and being cold. This nurse checked patients o2 saturation and it was at 79% on RA. This nurse placed a nasal cannula on the patient and began oxygen therapy at 2L. Patients o2 sats went up to 95%. Patient also complained of being sob so nurse listened to lung sounds. Patients lung sounds were crackling in bilateral lower lobes and some expiratory wheezes. This nurse contacted Dr. Campos to advise of the situation. ordered a chest x-ray and duo neb treatments. Patient has albuterol treatments with respiratory therapy. Patient is still having low blood pressure. This nurse will continue to monitor.
--- NOTE | 2024-10-31 03:02 | PC.NURSE ---
Patient started complaining about pain to foot. This nurse contacted Dr. Campos at 2.22am to see if there was any medication to give the patient since she is still having soft blood pressures. Awaiting Dr. humphrey
[2024-10-31] MEDS: piperacillin-tazobactam 3.375 GM in sodium chloride 0.9% (plus) 50 ML IV ×2 (06:03→15:01)
[2024-10-31] MEDS: cyclobenzaprine 10 mg Tablet 5 MG PO ×2 (06:09→15:01)
[2024-10-31 06:11] LABS: Basophils % 0.1 %; Eosinophils # 0.4 10^3/uL (0.0-0.8); Eosinophils % 3.8 %; Hematocrit 29.8 % (36-47); Lymphocytes # 1.1 10^3/uL (0.8-4.8); Lymphocytes % 12.2 %; Mean Corpuscular HGB Conc 29.9 g/dL (30-55); Mean Corpuscular Hemoglobin 25.6 pg (27-33); Mean Corpuscular Volume 85.6 fl (85-98); Mean Platelet Volume 11.2 fL (7.4-10.4); Monocytes # 0.9 10^3/uL (0.2-0.9); Monocytes % 9.8 %; Neutrophils # 6.88 10^3/uL (1.8-7.7); Neutrophils % 73.7 %; Nucleated Red Blood Cells % 0 %; Platelet Count 316 10^3/cmm (157-399); Red Blood Count 3.48 10^6/uL (3.85-5.65); Red Cell Distribution Width 16.1 % (12.1-15.1); White Blood Count 9.33 10^3/uL (3.29-11.43)
[2024-10-31 06:18] LABS: Glucose Point of Care 219 mg/dL (70-110)
[2024-10-31 06:34] LABS: Alanine Aminotransferase 6 U/L (0-33); Albumin Level 2.6 g/dL (3.5-5.2); Alkaline Phosphatase 64 U/L (35-105); Anion Gap 12.3 (5-19); Aspartate Amino Transferase 9 U/L (0-32); Blood Urea Nitrogen 16 mg/dL (8-23); Calcium 8.1 mg/dL (8.5-10.5); Carbon Dioxide 25 mmol/L (22-29); Chloride 107 mmol/L (98-107); Globulin 2.9 g/dL (1.3-4.6); Glucose 211 mg/dL (65-115); Magnesium 1.8 mg/dL (1.7-2.3); Osmolality Calculated 297 mOsm/kg (285-295); Potassium 4.3 mmol/L (3.5-5.1); Sodium 140 mmol/L (136-145); Total Bilirubin 0.2 mg/dL (0.15-1.2); Total Protein 5.5 g/dL (6.6-8.7)
[2024-10-31] MEDS: insulin lispro 100 unit/1 mL SUBCUT ×3 (07:52→21:58)
[2024-10-31] MEDS: insulin glargine 100 units/1 mL 27 UNIT SUBCUT (07:52)
[2024-10-31] MEDS: heparin 5,000 unit/mL INJ 1 mL 5000 UNIT SUBCUT ×2 (07:53→21:58)
[2024-10-31] MEDS: aspirin 81 mg EC Tablet PO (07:53)
[2024-10-31] MEDS: ranolazine (12HR) 500 mg Tablet 1000 MG PO ×2 (07:53→17:15)
[2024-10-31] MEDS: docusate sodium 100 mg Capsule PO (07:53)
[2024-10-31 11:22] LABS: Glucose Point of Care 73 mg/dL (70-110)
[2024-10-31] MEDS: sodium chloride 0.9% 1,000 ML 30 ML IV (11:23)
--- NOTE | 2024-10-31 11:27 | PC.NURSE ---
Patient left floor for surgery at 1120am on 10/31/24.
[2024-10-31] MEDS: albuterol 2.5 mg/3 mL Neb INHALATION (11:28)
--- NOTE | 2024-10-31 11:28 | W.PM.OPSUD ---
Surgery/Procedure H&P Update DATE OF PROCEDURE: October 31, 2024 DATE H&P PERFORMED: 10/28/24 H&P UPDATE INFORMATION: I have reviewed H&P completed within last 30 days, I have examined patient prior to procedure, No changes to prior documentation and Risks and benefits of the procedure reviewed PREOP DIAGNOSIS: Osteomyelitis left great toe PLANNED PROCEDURE: Operation Date: 10/29/24 12:00 Proposed Procedures p Amputation Toe/s Toe Amputation(Left) - Jean Paul Renee DPM Operation Date: 10/31/24 12:00 Proposed Procedures p Delayed Wound Closure(Left) - Jean Paul Renee DPM
[2024-10-31] MEDS: fentaNYL 50 mcg/mL INJ 2mL 100 MCG IVP (11:30)
--- NOTE | 2024-10-31 11:35 | P.ANESUD_ITS ---
Pre-Anesthetic Update Pre-Anesthetic Assessment: Date of Surgery/Procedure: 10/31/24 Preop Jordyn gnosis: Osteomyelitis left great toe Proposed Procedure: Operation Date: 10/29/24 12:00 Proposed Procedures p Amputation Toe/s Toe Amputation(Left) - Jean Paul Renee DPM Operation Date: 10/31/24 12:00 Proposed Procedures p Delayed Wound Closure(Left) - Jean Paul Renee DPM Changes from Pre-Anesthetic Assessment: Patient's blood cultures positive with MRSA, 2 L O2 currently. Labs from this morning reviewed, hemoglobin 8.9. Glucose 211 ASA 3 Last Intake: Intake Last Liquid Date 10/30/24 Last Liquid Time 11:59 Last Solid Date 10/30/24 Last Solid Time 23:59 Labs Last 48hrs: Short CBC 10/30/24 10/31/24 Range/Units 04:59 05:46 WBC 11.45 H 9.33 (3.29-11.43) 10^ 3/uL Hgb 10.00 L 8.90 L (11.27-16.99) g/ dL Hct 36.0 29.8 L (36-47) % MCV 91.8 85.6 (85-98) fl Plt Count 309 316 (157-399) 10^3/c mm Neut % (Auto) 73.6 73.7 % Neut # (Auto) 8.41 H 6.88 (1.8-7.7) 10^3/u L BMP 10/30/24 10/31/24 04:59 05:46 Sodium 141 140 Potassium 4.5 4.3 Chloride 108 H 107 Carbon Dioxide 23 25 BUN 16 16 Creatinine 1.0 H 1.3 H Glucose 101 211 H Calcium 8.2 L 8.1 L Liver Function 10/29/24 10/30/24 10/31/24 Range/Units 05:39 04:59 05:46 Total Bilirubin 0.3 0.4 0.2 (0.15-1.2) mg/dL AST 12 9 (0-32) U/L ALT 8 6 (0-33) U/L Alkaline Phosphata se 72 64 (35-105) U/L Albumin 2.9 L 2.6 L (3.5-5.2) g/dL Vitals: Temperature 99.1 F 10/31/24 11:24 Temperature Source Temporal Artery S can 10/31/24 11:24 Pulse Rate 63 10/31/24 11:24 Respiratory Rate 18 10/31/24 11:30 Respiratory Effort Spontaneous 10/29/24 15:31 Respiratory Depth Normal 10/31/24 11:30 Respiratory Patter n Normal 10/31/24 11:30 Blood Pressure 124/72 10/31/24 11:24 Blood Pressure Azalea n 89 10/31/24 11:24 Blood Pressure Pos ition Semi Fowlers 10/31/24 06:05 Pulse Oximetry 97 10/31/24 11:30 Oxygen Delivery Me thod Nasal Cannula 10/31/24 11:24 Oxygen Flow Rate 2 10/31/24 11:24 Sepsis Recent Feve r Within 48 Hours No 10/28/24 14:35 Cardiac Studies: Echocardiogram 04/10/24 Echocardiogram Limited Views 08/24/24
--- NOTE | 2024-10-31 11:37 | PC.NURSE ---
Called and spoke to pre op nurse Konrad and notified him of patient's blood sugar of 73 that just resulted from accu machine.
--- NOTE | 2024-10-31 11:48 | P.BOP_ITS ---
Date of Procedure: 07/28/23 Surgeon: Jean Paul Renee DPM Manager Information(s): Sarath Procedure(s) performed: Delayed closure left foot Findings of the procedure(s): Devitalized tissue debrided and successful closure left great toe amputation site Estimated blood loss: 2 mL Specimen(s) removed: None Post-operative diagnosis: Gangrene left great toe
[2024-10-31] MEDS: BUPivacaine 0.5% INJ 30 mL INJECTION (12:05)
[2024-10-31] MEDS: lidocaine 1% 10 ML INJ 20 ML INJECTION (12:05)
--- NOTE | 2024-10-31 12:32 | P.OP_ITS ---
Operative Report Date of procedure: October 31, 2024 Pre-op diagnosis: Osteomyelitis left great toe Cellulitis left great toe Septic joint left hallux interphalangeal joint Post-op diagnosis: Same Post-op findings: Improved soft tissue amenable to closure postdebridement left great toe amputation site Procedure done: Secondary closure of surgical wound, left foot. CPT code 51363 Implants: 3-0 Vicryl, 4 nylon Specimens removed/disposition: None Pathology: none Surgeon: Jean Paul Renee DPM Director Dental Services: Sarath Estimated blood loss: 2 12 IV fluids: See intraoperative documentation Urine output: No urine output Complications: no complications Brief History: 84-year-old diabetic female presents initially with gangrene of the left foot necessitating left great toe amputation at the first metatarsal phalangeal joint, skin flaps were questionable requiring continued hospitalization, IV antibiotics and further debridement with possible secondary closure if indicated. I reviewed at length with the patient, the risks, potential complications, benefits, alternatives, expectations, and typical outcomes associated with the surgery. The risks and potential complications were explained in detail, including but not limited to infection, wound dehiscence or soft tissue complications, bleeding and hematoma, chronic edema, neuritis or nerve damage producing numbness or chronic pain, CRPS, failure to relieve pain or worsening pain, thick / painful / unsightly scar, limited motion / stiffness, malposition, delayed union, malunion, or nonunion, fracture, reaction to implants, anesthetic complications, venous thromboembolism, and deformity recurrence. I discussed the notion of no regrets with the patient as it pertains to complications and outcomes. The patient seemed to understand the nature of the proposed care and required convalescence. They asked appropriate questions, answered to their satisfaction. They are aware no guarantees can be made as to a satisfactory outcome and they understand there may be other possible unforeseen complications or outcomes not listed here that will be treated accordingly if they arise. There were no written or implied guarantees given to the patient. They gave informed consent to proceed. Procedure: Under mild sedation the patient was brought to the operating room and remained on the gurney in supine position. A timeout was performed. Anesthesia was then administered by the anesthesia service. Local anesthesia injected by myself consisting of 30 cc of one-to-one mixture 1% lidocaine and 0.5% Marcaine plain in a left Glez block fashion. Well-padded pneumatic tourniquet applied to the left ankle. Left lower extremity was then scrubbed, prepped and draped utilizing normal aseptic technique. Left foot was elevated and tourniquet inflated to 250 mmHg. Attention was directed to the amputation site of the left great toe which was noted to have devitalized myofascial layer and subcutaneous layer this was sharply and excisionally debrided with pickups and a #15 blade as well as curved Glez scissors, the amputation site had adequate skin flap for closure, the most lateral portion of skin flaps were dusky and of poor quality necessitating further debridement this was sharply debrided with curved Glez scissors down to healthy bleeding skin. The incision was irrigated with copious amounts of sterile saline solution. First metatarsal head of the left foot was visualized to be viable of appropriate density and color along with joint capsule and remaining soft tissues postdebridement the incision was irrigated with Irrisept and copious amounts of sterile saline solution.. The surgical incision was then closed in a layered fashion with joint capsule reapproximated with 3-0 Vicryl, subcutaneous tissue reapproximated with 3-0 Vicryl and skin with 4-0 nylon. The incision was then dressed with Xeroform, sterile 4 x 4 gauze, Kerlix and Lalito wrap with minimal compression as to not impede circulatory status or arterial flow. Postop shoe was applied to the left foot and tourniquet deflated, hyperemic response is noted to toes 2, 3, 4 and 5 the left foot. Patient tolerated the procedure and anesthesia well and was transferred to the PACU with vital signs stable and vascular status intact. Following a period of postoperative monitoring should be transferred back to [facility]. Patient to be nonweightbearing to the left lower extremity may heel touch only for short transfers with postop shoe. No further surgical intervention anticipated during this hospitalization will follow-up in podiatry clinic outpatient.
--- NOTE | 2024-10-31 14:50 | PM.PN ---
Subjective Subjective: seen this am going for delayed closure to OR Vitals/I&O/Wt Last Vital Signs Temp 97.3 F L 10/31/24 13:48 Pulse 62 10/31/24 14:12 Resp 18 10/31/24 14:12 BP 106/56 10/31/24 13:48 Pulse Ox 95 10/31/24 14:12 O2 Del Method Nasal Cannula 10/31/24 14:12 O2 Flow Rate 3 10/31/24 14:12 10/30/24 10/31/24 10/31/24 22:59 06:59 14:59 Intake Total 871.875 / 1931.875 48.125 / 1979.000 110.5 / 110.5 Output Total 2 / 2 Balance 871.875 / 1931.875 48.125 / 1979.000 108.5 / 108.5 Weight last 48 hrs Weight 80.739 kg Weight 77.564 kg Physical Exam Narrative: Patient alert orinted x 3. Good bilateral air entry, no wheezes or ronchi Normocephalic atraumatic, EOMI Normal S1-S2 Abdomen soft nontender Heart: Normal S1-S2, regular rate rhythm. Left toe wrapped with bandage. Patient laying flat in bed not in respiratory distress. Urinary Catheter Management: Huff: Cath Placed During This Visit: yes Reason for Continuing Indwelling Catheter: Accurate Measurement of Urinary Output in Critically Ill Patients Urinary Catheter Date of Insertion: 08/24/24 Urinary Catheter Time of Insertion: 09:40 Data 10/31/24 05:46 10/31/24 05:46 Micro: Microbiology 10/30/24 05:55 Blood Culture - Preliminary Blood NEGATIVE TO DATE 10/30/24 05:50 Blood Culture - Preliminary Blood NEGATIVE TO DATE 10/29/24 12:14 Gram Stain - Final Bone Tissue Culture - Preliminary 10/28/24 20:00 Gram Stain - Final Toe - #1 Wound Culture - Preliminary A&P Assessment and plan (1) Essential (primary) hypertension: (2) Congestive heart failure: (3) CAD (coronary artery disease): (4) Paroxysmal A-fib: (5) Dyslipidemia: (6) CKD (chronic kidney disease): (7) Diabetes mellitus, type II, insulin dependent: (8) Anemia: (9) Leukocytosis: (10) Cellulitis of great toe, left: (11) COPD (chronic obstructive pulmonary disease): (12) Chronic hypoxic respiratory failure, on home oxygen therapy: (13) Bacteremia due to Staphylococcus: (14) Gangrene: Plan #Left foot infection #Chronic diastolic CHF #Diabetes mellitus with hyperglycemia #CKD #CAD #Paroxysmal atrial fibrillation #COPD #Dyslipidemia #Anemia #Chronic leukocytosis ? Continue on Lasix 40 BID home dose ? Continue Lantus 27 units at bedtime and insulin sliding scale moderate dose intensity ? Anemia chronic most likely normocytic. ? Leukocytosis 12.7 most likely secondary to chronic elevation. ? Podiatry consulted. Patient going for amputation today, - check cultures, continue IV abx ? Continue aspirin Plavix, Imdur, continue entresto ? Continue DuoNebs every 6 hours, PRN ? Continue ranolazine thousand twice daily. Of note patient did have recent coronary angiogram. She was deemed a candidate for medical management previously after she was transferred for consideration of high risk coronary intervention. Patient denies any chest pain at this time. Full code DVT prophylaxis: Heparin SQ twice daily 10/30/2024 Bacteremia: Will likely need 6 weeks of IV antibiotics for last negative blood culture. Will repeat blood cultures today. Consult infectious disease. Patient will be seen on 10/31. Discussed with Dr. Nguyen. Hopefully by then we will have culture data available. Plan for delayed wound closure 10/31. Discussed with Dr. Renee. Continue home medications. Will likely need alf placement for 60s of IV antibiotics. Continue sliding scale insulin and Lantus Continue home medications from home Continue Entresto, ranolazine, Toprol tartrate, Imdur. Continue Plavix aspirin atorvastatin. Continue home Lasix. Stop IV fluids. BP slightly soft this morning. Continue to monitor. 10/31/2024 ID consulted. Patient will be seen tomorrow. As we are still waiting for cultures. Today patient had delayed closure completed by Dr. Renee. Will wait for further recommendations Creatinine 1.3 today. Patient is able to lay flat does not appear to be overtly fluid overloaded however may have mild hypervolemia therefore I will give her 1 dose of IV Lasix today. Patient did receive IV fluids upon arrival. She is on oral Lasix at this time. Hemoglobin 8.9 this morning. Continue on aspirin Plavix atorvastatin, glargine, Imdur, metoprolol tartrate, Zosyn, vancomycin. Will await on antibiotic recommendations from ID. Repeat blood culture every 48 hours. Second set of blood cultures obtained 10/30 are so far negative. PDMP PDMP Reviewed: Not Reviewed Attestations Medical Necessity Statement*: Requires continued IV antibiotics, wound cultures pending, requires further surgical debridement Diagnoses Essential (primary) hypertension I10 Congestive heart failure I50.9 Coronary artery disease involving [place] coronary artery of [place] heart with other form of angina pectoris I25.118 Associated angina: with other forms of angina Coronary Disease-Associated Artery/Lesion type: [place] artery [place] vs. transplanted heart: [place] heart Paroxysmal A-fib I48.0 Dyslipidemia E78.5 Stage 3a chronic kidney disease N18.31 Chronic kidney disease stage: stage 3 (moderate) Chronic kidney disease stage 3 subtype: stage 3a (GFR 45-59) Diabetes mellitus, type II, insulin dependent E11.9; Z79.4 Anemia due to other cause, not classified D64.89 Anemia type: other cause Other causes of anemia: other cause, not classified Leukocytosis, unspecified type D72.829 Leukocytosis type: unspecified Cellulitis of great toe, left L03.032 Panlobular emphysema J43.1 COPD type: emphysema Emphysema type: panlobular Chronic hypoxic respiratory failure, on home oxygen therapy J96.11; Z99.81 Bacteremia due to Staphylococcus R78.81; B95.8 Gangrene I96
[2024-10-31] MEDS: HYDROcodone-acetaminophen 5-325 mg Tablet PO ×2 (15:00→18:57)
[2024-10-31 16:51] LABS: Glucose Point of Care 143 mg/dL (70-110)
[2024-10-31] MEDS: FUROsemide 10 mg/mL SDV 4mL 20 MG IVP (17:15)
[2024-10-31] MEDS: atorvastatin 40 mg Tablet PO (17:15)
[2024-10-31] MEDS: VANCOMYCIN ADD-Vantage 1,000 MG in 0.9% NaCl ADD-Vantage 250 ML 250 MG IV (17:16)
[2024-10-31] MEDS: albuterol 2.5 mg/3 mL Neb NEBULIZER (20:33)
[2024-10-31] MEDS: ipratropium 0.5 mg/2.5 mL Neb INHALATION (20:33)
[2024-10-31 20:42] LABS: Glucose Point of Care 421 mg/dL (70-110)
[2024-10-31 21:21] LABS: Glucose Point of Care 303 mg/dL (70-110)
[2024-10-31] MEDS: clopidogrel 75 mg Tablet PO (22:00)
[2024-10-31] MEDS: sennosides 8.6 mg Tablet 17.2 MG PO (22:00)
[2024-11-01] VITALS (10 sets, daily range): BP systolic 91–146; BP diastolic 44–73; PULSE 52–77; RESP 14–18; TEMP 36.5–36.9; O2SAT 94–100
[2024-11-01] MEDS: piperacillin-tazobactam 3.375 GM in sodium chloride 0.9% (plus) 50 ML IV ×3 (00:04→15:36)
[2024-11-01 05:26] LABS: Basophils % 0.2 %; Eosinophils # 0.4 10^3/uL (0.0-0.8); Eosinophils % 4.8 %; Hematocrit 32.9 % (36-47); Lymphocytes # 1.3 10^3/uL (0.8-4.8); Mean Corpuscular HGB Conc 29.5 g/dL (30-55); Mean Corpuscular Hemoglobin 25.5 pg (27-33); Mean Corpuscular Volume 86.4 fl (85-98); Mean Platelet Volume 11.7 fL (7.4-10.4); Monocytes % 12.1 %; Neutrophils # 5.49 10^3/uL (1.8-7.7); Neutrophils % 66.5 %; Nucleated Red Blood Cells % 0 %; Platelet Count 322 10^3/cmm (157-399); Red Blood Count 3.81 10^6/uL (3.85-5.65); Red Cell Distribution Width 16.3 % (12.1-15.1); White Blood Count 8.26 10^3/uL (3.29-11.43)
[2024-11-01 05:48] LABS: Anion Gap 14.1 (5-19); Blood Urea Nitrogen 17 mg/dL (8-23); Calcium 8.7 mg/dL (8.5-10.5); Carbon Dioxide 25 mmol/L (22-29); Chloride 109 mmol/L (98-107); Glucose 43 mg/dL (65-115); Magnesium 1.8 mg/dL (1.7-2.3); Osmolality Calculated 296 mOsm/kg (285-295); Potassium 4.1 mmol/L (3.5-5.1); Sodium 144 mmol/L (136-145)
[2024-11-01 06:09] LABS: Glucose Point of Care 52 mg/dL (70-110)
[2024-11-01 06:38] LABS: Glucose Point of Care 86 mg/dL (70-110)
[2024-11-01] MEDS: HYDROcodone-acetaminophen 5-325 mg Tablet PO ×4 (08:07→21:33)
[2024-11-01] MEDS: ranolazine (12HR) 500 mg Tablet 1000 MG PO ×2 (08:08→17:24)
[2024-11-01] MEDS: heparin 5,000 unit/mL INJ 1 mL 5000 UNIT SUBCUT ×2 (08:08→21:34)
[2024-11-01] MEDS: docusate sodium 100 mg Capsule PO ×2 (08:09→17:24)
[2024-11-01] MEDS: aspirin 81 mg EC Tablet PO (08:09)
[2024-11-01] MEDS: albuterol 2.5 mg/3 mL Neb NEBULIZER ×2 (09:02→20:32)
[2024-11-01] MEDS: amiodarone 200 mg Tablet PO (09:32)
--- NOTE | 2024-11-01 10:11 | PC.SOCIAL ---
IMM Updated Updated pt on IMM. No questions voiced. Provided pt a copy. Initialed, dated, & timed copy in chart.
[2024-11-01] MEDS: FUROsemide 10 mg/mL SDV 4mL 40 MG IVP (10:33)
[2024-11-01 10:51] LABS: Glucose Point of Care 206 mg/dL (70-110)
[2024-11-01] MEDS: insulin lispro 100 unit/1 mL SUBCUT ×3 (11:02→21:33)
--- NOTE | 2024-11-01 11:43 | P.PN_ITS ---
Subjective 2 Subjective: Patient seen bedside this a.m. Denies any acute events overnight. Is status post delayed closure left foot secondary to left great toe amputation. Vitals/I&O/Wt Last Vital Signs Temp 98.0 F 11/01/24 07:50 Pulse 70 11/01/24 09:08 Resp 18 11/01/24 09:02 BP 146/73 11/01/24 07:50 Pulse Ox 99 11/01/24 09:02 O2 Del Method Nasal Cannula 11/01/24 09:02 O2 Flow Rate 3 11/01/24 09:02 10/31/24 11/01/24 11/01/24 22:59 06:59 14:59 Intake Total 660 / 890.5 290 / 1180.5 236 / 236 Output Total 400 / 402 Balance 260 / 488.5 290 / 778.5 236 / 236 Weight last 48 hrs Weight 179 lb 6 oz Weight 178 lb Physical Exam 2 Narrative: GENERAL: Patient is alert and oriented ?3 and in no acute distress. The following is a focused bilateral lower extremity exam. VASCULAR: Dorsalis pedis diminished bilaterally. Posterior tibial arteries diminished. Capillary refill time less than 5 seconds to the distal hallux bilaterally. Calf is supple and nontender proximally and distally. Decreased pedal hair growth, edema to the left great toe. NEUROLOGICAL: Protective sensation intact 6/10 sites, tested with [place] Sergio monofilament to bilateral feet. DERMATOLOGICAL surgical dressing left foot is clean, dry and intact without strikethrough bleeding, drainage or erythema at the adjacent skin. 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 Urinary Catheter Management: Huff: Cath Placed During This Visit: yes Reason for Continuing Indwelling Catheter: Accurate Measurement of Urinary Output in Critically Ill Patients Urinary Catheter Date of Insertion: 08/24/24 Urinary Catheter Time of Insertion: 09:40 Data 11/01/24 04:53 11/01/24 04:53 Micro: Microbiology 10/28/24 20:00 Gram Stain - Final Toe - #1 Wound Culture - Final 10/29/24 12:14 Gram Stain - Final Bone Tissue Culture - Preliminary A&P Assessment and plan (1) Diabetes mellitus, type II, insulin dependent: (2) Osteomyelitis of great toe of left foot: (3) Cellulitis of great toe, left: (4) Noncompliance: Noncompliance with wound care follow-up, noncompliance with offloading left foot wound. Plan 84-year-old insulin-dependent diabetic female presents with acute osteomyelitis left great toe and cellulitis of the left foot, last A1c 05/26/2024 Status post left great toe amputation secondary to gangrene performed 10/29/2024. Status post delayed closure left foot 10/31/2024 Clean margins appreciated intraoperatively at left foot amputation and closure, anticipate 2 weeks of oral antibiotics at discharge for adjacent soft tissue amputation site which continues to improve. Heel touch for transfers with postop shoe left foot otherwise decrease activity, rest and elevate. Advise walker when transferring and heel touch left foot. Follow-up outpatient in podiatry clinic for continued care of left foot amputation site scheduled 11/07/2024 at 1:30 PM. PDMP PDMP Reviewed: Not Reviewed Attestations 2 Medical Necessity Statement*: Deferred to primary team Coding Level of Care Code Acute Code for [facility] Diagnoses Diabetes mellitus, type II, insulin dependent E11.9; Z79.4 Osteomyelitis of great toe of left foot M86.9 Cellulitis of great toe, left L03.032 Noncompliance Z91.199
--- NOTE | 2024-11-01 12:22 | PM.CONSULT ---
Providers/Reason For Consult Consulting Physician/Specialty*: Tara Munguia MD / Infectious Disease Reason for Consult*: staphylococcus positive blood culture Requesting Physician: Kezia Scott MD Attending Physician: Kezia Scott MD Primary Care Provider: Antonio Delgado MD History of Present Illness History of Present Illness Sally Henderson is a 84 year old female With past medical history of CHF, coronary disease, diabetes mellitus, CKD, paroxysmal atrial fibrillation. She has a chronic wound over the left foot which had been present for greater than 1 year. During a recent hospital visit in September 2024, she was noted to have an ulcer over the left great toe which was negative for osteomyelitis at that time, she was advised to wear a cam boot for offloading, patient refused, was advised to follow-up in wound care clinic, patient did not follow-up, advised diabetic shoes, patient did not follow through on getting them. Unfortunately patient's wound progressed and she presented on 10/28 to the emergency with foul odor and a worsening of the wound. She had associated cellulitis as well. On 10/28 she underwent Left great toe amputation. Intra op findings included Acute osteomyelitis left great toe, Septic joint left hallux interphalangeal joint, Cellulitis left foot. This was followed by delayed closure on 10/31/24. There is extensive vascular calcification in the foot and distal leg on X ray foot. There is a radiopaque foreign body in the subcutaneous tissues adjacent to the tarsal navicular on the medial aspect which has been present for at least 2 years. Blood cx reported positive for Staphyloccocus hominis from admission Review of Systems General: Reports: 10 or more systems reviewed and unremarkable except in HPI and below Const: Denies: fever(s), chills or body aches Eyes: Denies: change in vision, blurry vision or photophobia ENMT: Reports: hoarseness; Denies: throat pain, enlarged tonsils, odynophagia or nasal congestion Card: Denies: chest pain, palpitations, irregular heart rhythm, edema, swelling of feet/ankles, lightheadedness, pre-syncope, dyspnea on exertion or orthopnea Resp: Denies: dyspnea, productive cough, non-productive cough, wheezing, stridor, pain on inspiration, change in phlegm color, hemoptysis or chest congestion GI: Denies: abdominal pain, nausea, vomiting, hematemesis, coffee ground emesis, dysphagia, heartburn, diarrhea, constipation, GI cramping, change in stool character, hematochezia or melena : Denies: flank pain, difficulty voiding, dysuria, urinary frequency, urinary urgency, urinary hesitancy or hematuria Musc: Denies: neck pain, back pain, extremity pain, joint swelling, joint warmth or deformity Neuro: Denies: headache(s), numbness in extremities, weakness in extremities, sensory changes, difficulty walking, frequent falls, dizziness, vertigo, behavioral changes, Slurred speech present or seizure-like activity Psych: Denies: anxiety, depression, suicidal ideation or homicidal ideation Endo: Denies: polyuria, polydipsia, tired all the time, cold intolerance or hot flashes Saeid/Lymph: Denies: easy bruising or easy bleeding Medications/Allergies Home Medications ?Medication ?Instructions ?Recorded ?Confirmed ?Last Taken ?Type clopidogrel 75 mg tablet 75 mg PO BEDTIME #90 tabs 03/27/24 10/29/24 10/27/24 Rx nitroglycerin 0.4 mg sublingual 0.4 mg buccal PRN PRN Chest Pain 04/10/24 10/29/24 Unknown History tablet furosemide 40 mg tablet 40 mg PO BID@0800,1400 30 days #60 05/28/24 10/29/24 10/28/24 Rx tabs isosorbide mononitrate 60 mg 60 mg PO DAILY 06/07/24 10/29/24 10/28/24 History tablet,extended release 24 hr insulin aspart U-100 100 unit/mL See Rx Instructions .Route 06/11/24 10/29/24 08/04/24 Rx (3 mL) subcutaneous pen (Novolog .COMPLEX #15 mL FlexPen U-100 Insulin aspart) amiodarone 200 mg tablet 200 mg PO DAILY 07/18/24 10/29/24 10/28/24 History atorvastatin 40 mg tablet 40 mg PO QPM 07/18/24 10/29/24 10/27/24 History tramadol 50 mg tablet 50 mg PO Q6H PRN Pain 07/18/24 10/29/24 10/28/24 History budesonide-formoterol HFA 80 1 inh inhalation BID #10.2 grams 07/23/24 10/29/24 10/28/24 Rx mcg-4.5 mcg/actuation aerosol inhaler (Symbicort) nebulizer and compressor (FFC773 #1 ea 07/23/24 10/29/24 Unknown Rx Nebulizer) sacubitril 24 mg-valsartan 26 mg 1 tab PO BID #60 tabs 07/25/24 10/29/24 10/28/24 Rx tablet (Entresto) aspirin 81 mg tablet,delayed 81 mg PO DAILY #30 tabs 08/07/24 10/29/24 10/28/24 Rx release metoprolol tartrate 25 mg tablet 12.5 mg (1/2 x 25 mg) PO 08/07/24 10/29/24 10/28/24 Rx BID@0900,2100 #60 tabs neomycin-bacitracn Zn-polymyx 3.5 1 applic topical BID #30 grams 08/07/24 10/29/24 10/28/24 Rx mg-400 unit-5,000 unit/gram top oint (Triple Antibiotic) potassium chloride 20 mEq 10 meq (1/2 x 20 mEq) PO DAILY #30 08/07/24 10/29/24 10/28/24 Rx tablet,extended release(part/cryst) tabs ranolazine 500 mg tablet,extended 1,000 mg (2 x 500 mg) PO BID #120 08/07/24 10/29/24 10/28/24 Rx release,12 hr tabs losartan 25 mg tablet 25 mg PO DAILY #30 tabs 08/08/24 10/29/24 10/28/24 Rx albuterol sulfate 2.5 mg/3 mL 2.5 mg continuous nebulization TID 10/29/24 10/29/24 Unknown History (0.083 %) solution for nebulization PRN Shortness Of Breath insulin degludec 200 unit/mL (3 27 unit SUBCUT DAILY 10/29/24 10/29/24 10/28/24 History mL) subcutaneous pen (Tresiba FlexTouch U-200 insulin) Allergies Allergy/AdvReac Type Severity Reaction Status Date / Time No Known Allergies Allergy Verified 09/18/24 19:54 Current Medications Generic Name Dose Route Start Last Admin Trade Name Freq PRN Reason Stop Dose Admin Hydrocodone Bitart/Acetaminophen 1 - 2 tab 10/29/24 18:17 11/01/24 21:33 Hydrocodone-Acetaminophen 5-325 Mg Tablet PO 2 tab Q4H PRN Administration MODERATE TO SEVERE PAIN Albuterol Sulfate 2.5 mg 10/29/24 13:32 11/01/24 20:32 Albuterol 2.5 Mg/3 Ml Neb NEBULIZER 2.5 mg TID PRN Administration SHORTNESS OF BREATH Amiodarone HCl 200 mg 10/30/24 09:00 11/01/24 09:32 Amiodarone 200 Mg Tablet PO 200 mg DAILY LI Administration Aspirin 81 mg 10/30/24 09:00 11/01/24 08:09 Aspirin 81 Mg Ec Tablet PO 81 mg DAILY LI Administration Atorvastatin Calcium 40 mg 10/29/24 18:00 11/01/24 17:24 Atorvastatin 40 Mg Tablet PO 40 mg QPM LI Administration Clopidogrel Bisulfate 75 mg 10/29/24 21:00 11/01/24 21:34 Clopidogrel 75 Mg Tablet PO 75 mg BEDTIME LI Administration Cyclobenzaprine HCl 5 mg 10/29/24 18:20 10/31/24 15:01 Cyclobenzaprine 10 Mg Tablet PO 5 mg TID PRN Administration MUSCLE SPASMS Docusate Sodium 100 mg 10/29/24 09:00 11/01/24 17:24 Docusate Sodium 100 Mg Capsule PO 100 mg BID LI Administration Heparin Sodium (Porcine) 5,000 unit 10/29/24 09:00 11/01/24 21:34 Heparin 5,000 Unit/Ml Inj 1 Ml SUBCUT 5,000 unit Q12H LI Administration Piperacillin Sod/Tazobactam 50 mls @ 12.5 mls/hr 10/31/24 06:00 11/01/24 19:24 Sod 3.375 gm/ Sodium Chloride IV Infused Q8H [facility] [place] Infusion Protocol Insulin Glargine 27 unit 10/30/24 09:00 11/01/24 08:10 Insulin Glargine 100 Units/1 Ml SUBCUT Not Given On Hold: 11/01/24 10:25 DAILY [facility] [place] Insulin Human Lispro 0 unit 10/29/24 18:00 11/01/24 21:33 Insulin Lispro 100 Unit/1 Ml SUBCUT 10 unit WM&BEDTIME [facility] Administration Protocol Isosorbide Mononitrate 60 mg 10/30/24 09:00 11/01/24 08:10 Isosorbide Mononitrate Er 60 Mg Tablet PO Not Given DAILY LI Metoprolol Tartrate 12.5 mg 10/29/24 21:00 11/01/24 21:34 Metoprolol Tartrate 25 Mg Tablet PO 12.5 mg BID@0900,2100 LI Administration Morphine Sulfate 4 mg 10/29/24 01:30 10/29/24 15:31 Morphine 4 Mg/Ml Sdv 1 Ml IVP 4 mg Q4H PRN Administration SEVERE PAIN Ranolazine 1,000 mg 10/29/24 18:00 11/01/24 17:24 Ranolazine (12hr) 500 Mg Tablet PO 1,000 mg BID LI Administration Senna 17.2 mg 10/29/24 21:00 11/01/24 21:34 Sennosides 8.6 Mg Tablet PO 17.2 mg BEDTIME LI Administration PFSH Acute PFSH: Medical History Dyslipidemia Essential (primary) hypertension COPD (chronic obstructive pulmonary disease) Chronic hypoxic respiratory failure, on home oxygen therapy Diabetes mellitus, type II, insulin dependent CAD (coronary artery disease) Paroxysmal A-fib CKD (chronic kidney disease) CHF (congestive heart failure) Respiratory arrest has required intubation Non-STEMI (non-ST elevated myocardial infarction) Contrast-induced nephropathy Surgical History Hx of hysterectomy Hx of CABG Family History Unknown No problems noted. Social History Smoking and tobacco/nicotine status: former use of tobacco/nicotine Alcohol intake: never Substance/Drug Use: never Vitals/I&O/Wt Last Vital Signs Temp 98.4 F 11/01/24 21:09 Pulse 58 L 11/01/24 21:09 Resp 16 11/01/24 21:09 BP 134/62 11/01/24 21:09 Pulse Ox 100 11/01/24 21:09 O2 Del Method Nasal Cannula 11/01/24 20:32 O2 Flow Rate 3 11/01/24 20:32 11/01/24 11/01/24 11/01/24 06:59 14:59 22:59 Intake Total 290 / 1180.5 404 / 404 660 / 1064 Output Total 200 / 200 Balance 290 / 778.5 404 / 404 460 / 864 Weight last 48 hrs Weight 81.363 kg Weight 80.739 kg Physical Exam Narrative: General: No acute distress, AO x3 HEENT: PERRLA, pupils bilaterally equal and reactive, pallors not present Chest: Normal vesicular breath sounds, no added sounds, equal good air entry bilaterally CVS: S1-S2 regular, no murmurs, no tachycardia, no gallops, no rubs Abdomen: Soft, nontender, no organomegaly, bowel sounds present Neuro: No focal deficits, no facial deformity, AO x3, power 5/5 in all limbs Urinary Catheter Management: Huff: Cath Placed During This Visit: yes Reason for Continuing Indwelling Catheter: Accurate Measurement of Urinary Output in Critically Ill Patients Urinary Catheter Date of Insertion: 08/24/24 Urinary Catheter Time of Insertion: 09:40 Data 11/01/24 04:53 11/01/24 16:53 Micro: Microbiology 10/29/24 12:14 Gram Stain - Final Bone Tissue Culture - Final 10/28/24 19:30 Blood Culture - Final Blood Staphylococcus hominis 10/28/24 19:29 Blood Culture - Final Blood Staphylococcus hominis Other data: Radiology Impressions Chest X-Ray 10/30/24 21:19 IMPRESSION: 1. Cardiomegaly and pulmonary vascular congestion. 2. Sternotomy wires. 3. Bibasilar atelectasis versus minimal infiltrate. ADDENDUM: 10/30/24 9961 Multiple chronic left posterior rib fractures again seen similar to prior exam. Laboratory Results WBC 8.26 10^3/uL (3.29-11.43) 11/01/24 04:53 RBC 3.81 10^6/uL (3.85-5.65) L 11/01/24 04:53 Hgb 9.70 g/dL (11.27-16.99) L 11/01/24 04:53 Hct 32.9 % (36-47) L 11/01/24 04:53 MCV 86.4 fl (85-98) 11/01/24 04:53 MCH 25.5 pg (27-33) L 11/01/24 04:53 MCHC 29.5 g/dL (30-55) L 11/01/24 04:53 RDW 16.3 % (12.1-15.1) H 11/01/24 04:53 Plt Count 322 10^3/cmm (157-399) 11/01/24 04:53 MPV 11.7 fL (7.4-10.4) H 11/01/24 04:53 Neut % (Auto) 66.5 % 11/01/24 04:53 Lymph % (Auto) 16.0 % 11/01/24 04:53 [place] % (Auto) 12.1 % 11/01/24 04:53 Eos % (Auto) 4.8 % 11/01/24 04:53 Baso % (Auto) 0.2 % 11/01/24 04:53 Neut # (Auto) 5.49 10^3/uL (1.8-7.7) 11/01/24 04:53 Lymph # (Auto) 1.3 10^3/uL (0.8-4.8) 11/01/24 04:53 [place] # (Auto) 1.0 10^3/uL (0.2-0.9) H 11/01/24 04:53 Eos # (Auto) 0.4 10^3/uL (0.0-0.8) 11/01/24 04:53 Baso # (Auto) 0.0 10^3/uL (0.0-0.1) 11/01/24 04:53 Nucleated RBC % (auto) 0 % 11/01/24 04:53 Nucleated RBCs # 0.0 /100WBC 11/01/24 04:53 ESR 47 mm/hr (0-15) H 10/28/24 18:00 Sodium 141 mmol/L (136-145) 11/01/24 16:53 Potassium 4.1 mmol/L (3.5-5.1) 11/01/24 16:53 Chloride 104 mmol/L (98-107) 11/01/24 16:53 Carbon Dioxide 24 mmol/L (22-29) 11/01/24 16:53 Anion Gap 17.1 (5-19) 11/01/24 16:53 BUN 16 mg/dL (8-23) 11/01/24 16:53 Creatinine 1.1 mg/dL (0.5-0.9) H 11/01/24 16:53 GFR Calculation Not Reportable 11/01/24 16:53 Glucose 173 mg/dL (65-115) H 11/01/24 16:53 POC Glucose 280 mg/dL (70-110) H 11/01/24 19:57 Calculated Osmolality 297 mOsm/kg (285-295) H 11/01/24 16:53 Calcium 8.6 mg/dL (8.5-10.5) 11/01/24 16:53 Phosphorus 3.4 mg/dL (2.5-4.5) 10/29/24 05:39 Magnesium 1.8 mg/dL (1.7-2.3) 11/01/24 04:53 Total Bilirubin 0.2 mg/dL (0.15-1.2) 10/31/24 05:46 AST 9 U/L (0-32) 10/31/24 05:46 ALT 6 U/L (0-33) 10/31/24 05:46 Alkaline Phosphatase 64 U/L (35-105) 10/31/24 05:46 C-Reactive Protein 45.2 mg/L (0.0-4.9) H 10/28/24 18:00 Total Protein 5.5 g/dL (6.6-8.7) L 10/31/24 05:46 Albumin 2.6 g/dL (3.5-5.2) L 10/31/24 05:46 Globulin 2.9 g/dL (1.3-4.6) 10/31/24 05:46 Vancomycin Trough 12.6 ug/mL (10-15) 11/01/24 16:53 A&P Assessment and plan (1) Osteomyelitis of great toe of left foot: (2) Bacteremia due to Staphylococcus: (3) Gangrene of foot: Plan 84F with PMH as above, wosrening chronic ulcer now presented with gangrene, osteomyelitis of the left great toe along with cellulitic changes of the foot s/p great toe amputation on 10/29/24 with delayed closure OR cx thus far negative to date Gram stain with few GPCs and GNRs Blood cx from 10/28 showed 2/4 blood cx positive from 10/28, fup negative blood cx from 10/30 Currently on empiric abx with ZOsyn and Vancomycin Cellulitis is resolving Plan: Patient currently clinically improving S/p amputation which has provided source control positive blood cx with CoNs may be related to transient bacteremia from infection vs contamination When ready for discharge can transition to oral antibiotics Empiric combination of Ciprofloxacin 500mg BID and Linezolid 600mg BID for 14 days. Thank you for this consult, please call with any further questions or concerns PDMP PDMP Reviewed: Not Reviewed Consult Attestations Medical Necessity Statement: per admitting Coding Level [facility] Care Code [facility] Osteomyelitis of great toe of left foot M86.9 Bacteremia due to Staphylococcus R78.81; B95.8 Gangrene of foot I96
--- NOTE | 2024-11-01 13:00 | PM.PN ---
Subjective Subjective: Patient on 60 nasal cannula laying in bed. She does not complain of shortness of breath however is definitely fluid overloaded. Apparently her Lasix was stopped overnight secondary to hypotension. And she was given a liter of IV fluids yesterday as well. Vitals/I&O/Wt Last Vital Signs Temp 98.1 F 11/01/24 12:00 Pulse 66 11/01/24 12:00 Resp 16 11/01/24 12:00 BP 145/73 11/01/24 12:00 Pulse Ox 94 11/01/24 12:00 O2 Del Method Nasal Cannula 11/01/24 12:00 O2 Flow Rate 6 11/01/24 12:00 10/31/24 11/01/24 11/01/24 22:59 06:59 14:59 Intake Total 660 / 890.5 290 / 1180.5 286 / 286 Output Total 400 / 402 Balance 260 / 488.5 290 / 778.5 286 / 286 Weight last 48 hrs Weight 81.363 kg Weight 80.739 kg Physical Exam Narrative: Patient alert orinted x 3. Good bilateral air entry, no wheezes or ronchi Normocephalic atraumatic, EOMI Normal S1-S2 Abdomen soft nontender Heart: Normal S1-S2, regular rate rhythm. Left toe wrapped with bandage. Patient laying in bed on 6 L nasal cannula. Urinary Catheter Management: Huff: Cath Placed During This Visit: yes Reason for Continuing Indwelling Catheter: Accurate Measurement of Urinary Output in Critically Ill Patients Urinary Catheter Date of Insertion: 08/24/24 Urinary Catheter Time of Insertion: 09:40 Data 11/01/24 04:53 11/01/24 04:53 Micro: Microbiology 10/28/24 20:00 Gram Stain - Final Toe - #1 Wound Culture - Final 10/29/24 12:14 Gram Stain - Final Bone Tissue Culture - Preliminary A&P Assessment and plan (1) Essential (primary) hypertension: (2) Congestive heart failure: (3) CAD (coronary artery disease): (4) Paroxysmal A-fib: (5) Dyslipidemia: (6) CKD (chronic kidney disease): (7) Diabetes mellitus, type II, insulin dependent: (8) Anemia: (9) Leukocytosis: (10) Cellulitis of great toe, left: (11) COPD (chronic obstructive pulmonary disease): (12) Chronic hypoxic respiratory failure, on home oxygen therapy: (13) Bacteremia due to Staphylococcus: (14) Gangrene: Plan #Left foot infection #Chronic diastolic CHF #Diabetes mellitus with hyperglycemia #CKD #CAD #Paroxysmal atrial fibrillation #COPD #Dyslipidemia #Anemia #Chronic leukocytosis ? Continue on Lasix 40 BID home dose ? Continue Lantus 27 units at bedtime and insulin sliding scale moderate dose intensity ? Anemia chronic most likely normocytic. ? Leukocytosis 12.7 most likely secondary to chronic elevation. ? Podiatry consulted. Patient going for amputation today, - check cultures, continue IV abx ? Continue aspirin Plavix, Imdur, continue entresto ? Continue DuoNebs every 6 hours, PRN ? Continue ranolazine thousand twice daily. Of note patient did have recent coronary angiogram. She was deemed a candidate for medical management previously after she was transferred for consideration of high risk coronary intervention. Patient denies any chest pain at this time. Full code DVT prophylaxis: Heparin SQ twice daily 10/30/2024 Bacteremia: Will likely need 6 weeks of IV antibiotics for last negative blood culture. Will repeat blood cultures today. Consult infectious disease. Patient will be seen on 10/31. Discussed with Dr. Nguyen. Hopefully by then we will have culture data available. Plan for delayed wound closure 10/31. Discussed with Dr. Renee. Continue home medications. Will likely need senior living placement for 60s of IV antibiotics. Continue sliding scale insulin and Lantus Continue home medications from home Continue Entresto, ranolazine, Toprol tartrate, Imdur. Continue Plavix aspirin atorvastatin. Continue home Lasix. Stop IV fluids. BP slightly soft this morning. Continue to monitor. 10/31/2024 ID consulted. Patient will be seen tomorrow. As we are still waiting for cultures. Today patient had delayed closure completed by Dr. Renee. Will wait for further recommendations Creatinine 1.3 today. Patient is able to lay flat does not appear to be overtly fluid overloaded however may have mild hypervolemia therefore I will give her 1 dose of IV Lasix today. Patient did receive IV fluids upon arrival. She is on oral Lasix at this time. Hemoglobin 8.9 this morning. Continue on aspirin Plavix atorvastatin, glargine, Imdur, metoprolol tartrate, Zosyn, vancomycin. Will await on antibiotic recommendations from ID. Repeat blood culture every 48 hours. Second set of blood cultures obtained 10/30 are so far negative. 11/01/2024 ID consulted. We will await for recommendations today. Patient is status post delayed closure completed by Dr. Renee. Creatinine 1.2 today close to her baseline however Patient is on 6 L nasal cannula. She is not in active respiratory distress or having active shortness of breath however definitely is in fluid overload state. I will place on Lasix 40 IV twice daily. I will add Levophed if she experiences hypotension Transfer to ICU Will continue to hold Entresto Reduce Imdur to 30 daily Hold metoprolol to tartrate Continue amiodarone Continue aspirin Plavix Patient also hypoglycemic overnight. Will hold long-acting insulin. Continue to monitor blood sugars. PDMP PDMP Reviewed: Not Reviewed Attestations Medical Necessity Statement*: CHF exacerbation, needs IV diuresis. Diagnoses Essential (primary) hypertension I10 Congestive heart failure I50.9 Coronary artery disease involving [place] coronary artery of [place] heart with other form of angina pectoris I25.118 Associated angina: with other forms of angina Coronary Disease-Associated Artery/Lesion type: [place] artery [place] vs. transplanted heart: [place] heart Paroxysmal A-fib I48.0 Dyslipidemia E78.5 Stage 3a chronic kidney disease N18.31 Chronic kidney disease stage: stage 3 (moderate) Chronic kidney disease stage 3 subtype: stage 3a (GFR 45-59) Diabetes mellitus, type II, insulin dependent E11.9; Z79.4 Anemia due to other cause, not classified D64.89 Anemia type: other cause Other causes of anemia: other cause, not classified Leukocytosis, unspecified type D72.829 Leukocytosis type: unspecified Cellulitis of great toe, left L03.032 Panlobular emphysema J43.1 COPD type: emphysema Emphysema type: panlobular Chronic hypoxic respiratory failure, on home oxygen therapy J96.11; Z99.81 Bacteremia due to Staphylococcus R78.81; B95.8 Gangrene I96
[2024-11-01 16:29] LABS: Glucose Point of Care 214 mg/dL (70-110)
[2024-11-01] MEDS: atorvastatin 40 mg Tablet PO (17:24)
[2024-11-01] MEDS: VANCOMYCIN ADD-Vantage 1,000 MG in 0.9% NaCl ADD-Vantage 250 ML 250 MG IV (17:25)
[2024-11-01 17:29] LABS: Vancomycin Trough 12.6 ug/mL (10-15)
[2024-11-01 17:44] LABS: Anion Gap 17.1 (5-19); Blood Urea Nitrogen 16 mg/dL (8-23); Calcium 8.6 mg/dL (8.5-10.5); Carbon Dioxide 24 mmol/L (22-29); Chloride 104 mmol/L (98-107); Glucose 173 mg/dL (65-115); Osmolality Calculated 297 mOsm/kg (285-295); Potassium 4.1 mmol/L (3.5-5.1); Sodium 141 mmol/L (136-145)
[2024-11-01 20:02] LABS: Glucose Point of Care 280 mg/dL (70-110)
[2024-11-01] MEDS: metoprolol tartrate 25 mg Tablet 12.5 MG PO (21:34)
[2024-11-01] MEDS: clopidogrel 75 mg Tablet PO (21:34)
[2024-11-01] MEDS: sennosides 8.6 mg Tablet 17.2 MG PO (21:34)
--- NOTE | 2024-11-01 22:00 | PC.NURSE ---
Patient refused IV lasix stating I will not take that stuff unless they let you give me a catheter because i cant get up that much to go pee. This nurse educated patient on importance of medication and the risks of not taking the medication. Patient stated I understand, but I cant walk because of my foot.
[2024-11-02] MEDS: piperacillin-tazobactam 3.375 GM in sodium chloride 0.9% (plus) 50 ML IV ×2 (00:31→09:01)
[2024-11-02 01:18] VITALS: BP 120/74; PULSE 53; RESP 16; TEMP 36.7; O2SAT 98
[2024-11-02] MEDS: cyclobenzaprine 10 mg Tablet 5 MG PO (02:49)
[2024-11-02] MEDS: HYDROcodone-acetaminophen 5-325 mg Tablet PO (02:49)
[2024-11-02 04:04] LABS: Basophils % 0.5 %; Eosinophils # 0.4 10^3/uL (0.0-0.8); Hematocrit 30.6 % (36-47); Lymphocytes # 1.2 10^3/uL (0.8-4.8); Lymphocytes % 15.4 %; Mean Corpuscular HGB Conc 29.4 g/dL (30-55); Mean Corpuscular Hemoglobin 24.5 pg (27-33); Mean Corpuscular Volume 83.4 fl (85-98); Mean Platelet Volume 11.7 fL (7.4-10.4); Monocytes # 0.9 10^3/uL (0.2-0.9); Monocytes % 11.3 %; Neutrophils # 5.09 10^3/uL (1.8-7.7); Neutrophils % 67.4 %; Nucleated Red Blood Cells % 0 %; Platelet Count 312 10^3/cmm (157-399); Red Blood Count 3.67 10^6/uL (3.85-5.65); Red Cell Distribution Width 16.3 % (12.1-15.1); White Blood Count 7.55 10^3/uL (3.29-11.43)
[2024-11-02 04:13] LABS: Alanine Aminotransferase 6 U/L (0-33); Albumin Level 2.9 g/dL (3.5-5.2); Alkaline Phosphatase 64 U/L (35-105); Anion Gap 13.1 (5-19); Aspartate Amino Transferase 11 U/L (0-32); Blood Urea Nitrogen 17 mg/dL (8-23); Calcium 8.7 mg/dL (8.5-10.5); Carbon Dioxide 30 mmol/L (22-29); Chloride 107 mmol/L (98-107); Globulin 3.3 g/dL (1.3-4.6); Glucose 99 mg/dL (65-115); Magnesium 1.9 mg/dL (1.7-2.3); Osmolality Calculated 304 mOsm/kg (285-295); Potassium 4.1 mmol/L (3.5-5.1); Sodium 146 mmol/L (136-145); Total Bilirubin 0.2 mg/dL (0.15-1.2); Total Protein 6.2 g/dL (6.6-8.7)
[2024-11-02] MEDS: vancomycin 1,250 MG/250 ML PIGGYBACK 166.67 MG IV (04:50)
[2024-11-02 05:26] VITALS: BP 118/72; PULSE 50; RESP 13; TEMP 36.4; O2SAT 100
[2024-11-02 06:07] LABS: Glucose Point of Care 89 mg/dL (70-110)
[2024-11-02 07:12] VITALS: BP 130/63; PULSE 54; RESP 16; TEMP 36.6; O2SAT 99
[2024-11-02] MEDS: isosorbide mononitrate ER 60 mg Tablet PO (08:57)
[2024-11-02] MEDS: ranolazine (12HR) 500 mg Tablet 1000 MG PO (08:57)
[2024-11-02] MEDS: aspirin 81 mg EC Tablet PO (08:57)
[2024-11-02] MEDS: metoprolol tartrate 25 mg Tablet 12.5 MG PO (08:57)
[2024-11-02] MEDS: heparin 5,000 unit/mL INJ 1 mL 5000 UNIT SUBCUT (08:58)
[2024-11-02] MEDS: amiodarone 200 mg Tablet PO (09:08)
[2024-11-02 09:45] VITALS: PULSE 74; RESP 18; O2SAT 97
[2024-11-02] MEDS: albuterol 2.5 mg/3 mL Neb NEBULIZER (09:45)
--- NOTE | 2024-11-02 10:00 | PC.NURSE ---
This patient was set up to discharge the [facility] today. Patient has changed her mind since she does not need IV antibiotic's now she is discharging on oral antibiotic's. Encouraged patient to still go to the [facility] as she is partial weight bearing. Patient states, No I want to go home. Patient states her son will pick her up.
[2024-11-02 11:25] LABS: Glucose Point of Care 177 mg/dL (70-110)
--- NOTE | 2024-11-02 13:52 | P.DS_ITS ---
Discharge Providers Date of Admission: 10/28/24 19:07 Date of Discharge: November 02, 2024 Attending Provider at Admission: Agata Campos MD Attending Provider at Discharge: Kezia Scott MD Primary Care Provider: Antonio Delgado MD Diagnoses at Discharge Discharge Diagnosis (1) Osteomyelitis of great toe of left foot: Status: Acute (2) Bacteremia due to Staphylococcus: Status: Acute (3) Gangrene of foot: Status: Resolved Reason for Visit Reason for Visit: L foot problems sent from [facility] Course Hospital Course patient was initially admitted to the hospital with left foot osteomyelitis and underwent debridement and toe amputation with podiatry. Initially was on home dose Lasix however overnight secondary to low blood pressure her home Lasix was discontinued. I stopped her Entresto temporarily after which blood pressures improved. Patient was now diuresed with IV Lasix and once euvolemic discharge was planned. Originally patient was supposed to go to nursing facility with IV antibiotics however secondary to culture results or recommendations per infectious disease to oral antibiotics were chosen. Once I informed the patient of this she changed her mind and stated that she wanted to go home no matter what. As per patient's wishes patient's was discharged home with her oral diuretics. Entresto was held at discharge. Today she appears to be euvolemic. Clinically back to baseline nasal cannula. Physical Exam Narrative: Patient alert orinted x 3. Good bilateral air entry, no wheezes or ronchi Normocephalic atraumatic, EOMI Normal S1-S2 Abdomen soft nontender Heart: Normal S1-S2, regular rate rhythm. Left toe wrapped with bandage. Patient laying in bed on 3 L nasal cannula. Patient is laying flat right now. She is at baseline nasal cannula. Appears quite euvolemic today. Urinary Catheter Management: Huff: Cath Placed During This Visit: yes Reason for Continuing Indwelling Catheter: Accurate Measurement of Urinary Output in Critically Ill Patients Urinary Catheter Date of Insertion: 08/24/24 Urinary Catheter Time of Insertion: 09:40 Discharge Data Studies Completed and Pending Completed Studies During Hospitalization Category Date Time Status XR chest 1V portable [id number] Routine Exams 10/30/24 21:19 Completed Pending at discharge Category Date Time Status Blood Culture AM LABS Lab 10/30/24 05:55 Results Pathology: Surgical [PTH] Routine Pth 10/29/24 12:20 Received Radiology Impressions Chest X-Ray 10/30/24 21:19 IMPRESSION: 1. Cardiomegaly and pulmonary vascular congestion. 2. Sternotomy wires. 3. Bibasilar atelectasis versus minimal infiltrate. ADDENDUM: 10/30/24 4018 Multiple chronic left posterior rib fractures again seen similar to prior exam. Laboratory Results WBC 7.55 10^3/uL (3.29-11.43) 11/02/24 03:00 RBC 3.67 10^6/uL (3.85-5.65) L 11/02/24 03:00 Hgb 9.00 g/dL (11.27-16.99) L 11/02/24 03:00 Hct 30.6 % (36-47) L 11/02/24 03:00 MCV 83.4 fl (85-98) L 11/02/24 03:00 MCH 24.5 pg (27-33) L 11/02/24 03:00 MCHC 29.4 g/dL (30-55) L 11/02/24 03:00 RDW 16.3 % (12.1-15.1) H 11/02/24 03:00 Plt Count 312 10^3/cmm (157-399) 11/02/24 03:00 MPV 11.7 fL (7.4-10.4) H 11/02/24 03:00 Neut % (Auto) 67.4 % 11/02/24 03:00 Lymph % (Auto) 15.4 % 11/02/24 03:00 [place] % (Auto) 11.3 % 11/02/24 03:00 Eos % (Auto) 5.0 % 11/02/24 03:00 Baso % (Auto) 0.5 % 11/02/24 03:00 Neut # (Auto) 5.09 10^3/uL (1.8-7.7) 11/02/24 03:00 Lymph # (Auto) 1.2 10^3/uL (0.8-4.8) 11/02/24 03:00 [place] # (Auto) 0.9 10^3/uL (0.2-0.9) 11/02/24 03:00 Eos # (Auto) 0.4 10^3/uL (0.0-0.8) 11/02/24 03:00 Baso # (Auto) 0.0 10^3/uL (0.0-0.1) 11/02/24 03:00 Nucleated RBC % (auto) 0 % 11/02/24 03:00 Nucleated RBCs # 0.0 /100WBC 11/02/24 03:00 ESR 47 mm/hr (0-15) H 10/28/24 18:00 Sodium 146 mmol/L (136-145) H 11/02/24 03:00 Potassium 4.1 mmol/L (3.5-5.1) 11/02/24 03:00 Chloride 107 mmol/L (98-107) 11/02/24 03:00 Carbon Dioxide 30 mmol/L (22-29) H 11/02/24 03:00 Anion Gap 13.1 (5-19) 11/02/24 03:00 BUN 17 mg/dL (8-23) 11/02/24 03:00 Creatinine 1.1 mg/dL (0.5-0.9) H 11/02/24 03:00 GFR Calculation Not Reportable 11/02/24 03:00 Glucose 99 mg/dL (65-115) 11/02/24 03:00 POC Glucose 177 mg/dL (70-110) H 11/02/24 11:22 Calculated Osmolality 304 mOsm/kg (285-295) H 11/02/24 03:00 Calcium 8.7 mg/dL (8.5-10.5) 11/02/24 03:00 Phosphorus 3.4 mg/dL (2.5-4.5) 10/29/24 05:39 Magnesium 1.9 mg/dL (1.7-2.3) 11/02/24 03:00 Total Bilirubin 0.2 mg/dL (0.15-1.2) 11/02/24 03:00 AST 11 U/L (0-32) 11/02/24 03:00 ALT 6 U/L (0-33) 11/02/24 03:00 Alkaline Phosphatase 64 U/L (35-105) 11/02/24 03:00 C-Reactive Protein 45.2 mg/L (0.0-4.9) H 10/28/24 18:00 Total Protein 6.2 g/dL (6.6-8.7) L 11/02/24 03:00 Albumin 2.9 g/dL (3.5-5.2) L 11/02/24 03:00 Globulin 3.3 g/dL (1.3-4.6) 11/02/24 03:00 Vancomycin Trough 12.6 ug/mL (10-15) 11/01/24 16:53 Vitals Last Vital Signs Temp 97.9 F 11/02/24 07:12 Pulse 74 11/02/24 09:45 Resp 18 11/02/24 09:45 BP 130/63 11/02/24 07:12 Pulse Ox 97 11/02/24 09:45 O2 Del Method Nasal Cannula 11/02/24 09:45 O2 Flow Rate 3 11/02/24 09:45 Discharge Plan Discharge Patient Disposition: Xfer SNF Condition: Stable Prescriptions: Continued clopidogrel 75 mg tablet 75 mg PO BEDTIME Qty: 90 3RF nitroglycerin 0.4 mg tablet, sublingual 0.4 mg buccal PRN PRN (Reason: Chest Pain) furosemide 40 mg tablet 40 mg PO BID@0800,1400 30 Days Qty: 60 0RF insulin aspart U-100 [Novolog FlexPen U-100 Insulin] 100 unit/mL (3 mL) insulin pen See Rx Instructions .ROUTE .COMPLEX Qty: 15 0RF Rx Instructions: Inject 3 times daily, subcut, after meals, based on sliding scale provided Triple Antibiotic 3.5mg-400 unit- 5,000 unit/gram Ointment 1 applic topical BID Qty: 30 0RF aspirin 81 mg Tablet,Delayed Release (Dr/Ec) 81 mg PO DAILY Qty: 30 0RF potassium chloride 20 mEq tablet,ER particles/crystals 10 meq PO DAILY Qty: 30 0RF albuterol sulfate 2.5 mg /3 mL (0.083 %) solution for nebulization 2.5 mg continuous nebulization TID PRN (Reason: Shortness Of Breath) atorvastatin 40 mg tablet 40 mg PO QPM amiodarone 200 mg tablet 200 mg PO DAILY tramadol 50 mg tablet 50 mg PO Q6H PRN (Reason: Pain) (DME) nebulizer and compressor [WSF168 Nebulizer] Device See Rx Instructions .Route Qty: 1 0RF Rx Instructions: As directed budesonide-formoterol [Symbicort] 80-4.5 mcg/actuation HFA aerosol inhaler 1 inh inhalation BID Qty: 10.2 0RF Held Entresto 24-26 mg tablet 1 tab PO BID Qty: 60 1RF Hold Instructions: see cardiology insulin degludec [Tresiba FlexTouch U-200] 200 unit/mL (3 mL) insulin pen 27 unit SUBCUT DAILY Hold Instructions: see pcp No Action ranolazine 1,000 mg tablet extended release 12 hr 1,000 mg PO BID valacyclovir 1 gram Tablet 1,000 mg PO BID 10 Days Qty: 20 0RF sucralfate 100 mg/mL Suspension 1 g PO BID 30 Days Qty: 600 0RF pantoprazole 40 mg Tablet,Delayed Release (Dr/Ec) 40 mg PO BID 30 Days Qty: 60 0RF Eliquis 5 mg Tablet 2.5 mg PO BID@0900,2100 30 Days Qty: 30 0RF ciprofloxacin HCl 500 mg tablet 500 mg PO BID 10 Days Qty: 20 0RF linezolid 600 mg tablet 600 mg PO BID 10 Days Qty: 20 0RF Discharge Orders: Discharge Order (Routine); Ordered 11/02/24 Ordered By: Kezia Scott Referrals: Angela Lopez MD [Physician, Cardiology] - 7-10 days Jean Paul Renee DPM [Physician, Podiatry] - 11/07/24 1:30 pm Antonio Delgado MD [Primary Care Provider, Family Practice] - 1-3 days Discharge Diet: Cardiac and Diabetic Discharge Activity: Limit activity as instructed Patient Instructions: Ciprofloxacin (By mouth), Linezolid (By mouth), Acute Wound Care (DC), Toe Amputation (DC), Post Anesthesia Care Activity Restrictions/Additional Instructions: Instructions from Dr. Renee in regards to the left foot. Please keep your current dressing clean, dry and intact until your follow-up visit with Dr. Renee in clinic located [facility] second floor medical office building podiatry clinic scheduled 11/07/2024 at 1:30 PM Please reduce your activities, you are to be nonweightbearing to the left foot may only heel touch for short transfers with postop shoe and a walker. Elevate left foot while resting Contact podiatry clinic with any questions or concerns phone number [phone] Discharge Attestations Time Spent in Discharge Care*: greater than 30 min Status at Discharge: Cognitive status at discharge: cognitively intact , Behavioral status at discharge: cooperative , Quality Metrics Clinical Quality Measures [ No reported AMI, CVA or VTE this stay] Coding Level of Care Code Acute Code for Chg Fwd Diagnoses Osteomyelitis of great toe of left foot M86.9 Bacteremia due to Staphylococcus R78.81; B95.8 Gangrene of foot I96
== END 2024-11-02 13:30 | disposition skilled nursing facility (03) | DRG 616 ==
LOC: ER 19:32 → MEDSURG 19:56
PROVIDERS: Podiatrist Foot & Ankle Surgery; Student in an Organized Health Care Education/Training Program; Admitting Provider Internal Medicine; Emergency Provider Emergency Medicine; PCP Family Medicine; Visit Provider Internal Medicine
PROC: 0Y6Q0Z0 Detachment at Left 1st Toe, Complete, Open Approach (ICD-10-PCS; principal; 2024-10-29 12:00)
PROC: 0HBNXZZ Excision of Left Foot Skin, External Approach (ICD-10-PCS; CPT 13160; principal; 2024-10-31 12:00)
DX: E11.69 Type 2 diabetes mellitus with other specified complication (principal); A48.0 Gas gangrene; J18.9 Pneumonia, unspecified organism; J96.21 Acute and chronic respiratory failure with hypoxia; J96.92 Respiratory failure, unspecified with hypercapnia; E11.52 Type 2 diabetes mellitus with diabetic peripheral angiopathy with gangrene; I13.0 Hypertensive heart and chronic kidney disease with heart failure and stage 1 through stage 4 chronic kidney disease, or unspecified chronic kidney disease; M86.9 Osteomyelitis, unspecified; I50.32 Chronic diastolic (congestive) heart failure; M00.9 Pyogenic arthritis, unspecified; L03.116 Cellulitis of left lower limb; E11.65 Type 2 diabetes mellitus with hyperglycemia; E11.22 Type 2 diabetes mellitus with diabetic chronic kidney disease; N18.31 Chronic kidney disease, stage 3a; B95.62 Methicillin resistant Staphylococcus aureus infection as the cause of diseases classified elsewhere; Z79.02 Long term (current) use of antithrombotics/antiplatelets; Z79.4 Long term (current) use of insulin; Z79.82 Long term (current) use of aspirin; Z79.01 Long term (current) use of anticoagulants; E78.5 Hyperlipidemia, unspecified; Z99.81 Dependence on supplemental oxygen; I25.10 Atherosclerotic heart disease of native coronary artery without angina pectoris; Z95.1 Presence of aortocoronary bypass graft; I48.0 Paroxysmal atrial fibrillation; I25.2 Old myocardial infarction; I95.9 Hypotension, unspecified; J43.1 Panlobular emphysema; D63.1 Anemia in chronic kidney disease; Z91.199 Patient's noncompliance with other medical treatment and regimen due to unspecified reason
CPT/HCPCS: 36415; 36416; 36600; 51702; 71045; 80048; 80053; 80202; 82805; 82962; 83036; 83605; 83735; 83880; 84100; 84484; 85025; 85651; 86140; 87040; 87070; 87075; 87077; 87150; 87176; 87186; 87205; 87426; 87637; 88305; 88311; 93005; 93306; 94640; 94660; 96365; 96367; 96372; 96374; 96376; 97110; 97161; 97162; 97165; 97167; 97530; 97535; 99285; J1644; J1815; J1938; J2060; J2270; J2371; J2543; J2704; J3010; J3370; J3490; J7030; J7040; J7050; J7611; J7613; J7644; J9999

== ENCOUNTER 2024-11-03 01:52 | Inpatient (IN) | payer MEDICARE, SELFPAY ==
[2024-11-03] VITALS (18 sets, daily range): BP systolic 116–177; BP diastolic 49–79; PULSE 56–88; RESP 16–28; TEMP 36.3–37.3; O2SAT 89–100; BMI 30.2
--- NOTE | 2024-11-03 02:06 | XRR_ITS ---
PROCEDURE INFORMATION: Exam: XR Chest Exam date and time: 11/03/2024 2:24 AM Age: 84 years old Clinical indication: Shortness of breath; Prior surgery; Surgery date: 6+ months; Surgery type: Cabg; C/O SOB TECHNIQUE: Imaging protocol: Radiologic exam of the chest. Views: 1 view. COMPARISON: CR (CHEST, ) 10/30/2024 9:44 PM FINDINGS: Lungs: Bibasilar atelectasis or other infiltrates. Mild pulmonary vascular congestion. Pleural spaces: Bilateral pleural effusions. Heart/Mediastinum: Cardiomegaly. Bones/joints: Previous median sternotomy. Chronic left rib fractures. XR/XR chest 1V portable [id number] IMPRESSION: 1. Bibasilar atelectasis or other infiltrates. 2. Mild pulmonary vascular congestion. 3. Bilateral pleural effusions.
--- NOTE | 2024-11-03 02:06 | ECG_ITS ---
[facility] 2024[facility]03 Pat Name: Sally Henderson Department: Room: Gender: Female Tr[employer] Machine: : [id number] Requested By: Bebeto Yeager Order Number: [id number] Leonora MD: Leigh Torres M.D. Measurements Intervals [place] Rate: 73 P: 39 PA: 176 QRS: -20 QRSD: 124 T: 204 QT: 416 QTc: 461 Interpretive Statements SINUS RHYTHM WITH MARKED SINUS ARRHYTHMIA MODERATE INTRAVENTRICULAR CONDUCTION DELAY [110+ ms QRS DURATION] NONSPECIFIC ST & T-WAVE ABNORMALITY Compared to ECG 10/16/2024 17:09:39 No significant changes Electronically Signed On 11-03-2024 19:18:38 CDT by Leigh Torres M.D. [email or web address]
[2024-11-03] MEDS: ipratropium-albuterol 3 mL Neb INHALATION ×3 (02:25→15:29)
[2024-11-03] MEDS: FUROsemide 10 mg/mL SDV 10mL 60 MG IVP (02:27)
[2024-11-03 02:35] LABS: Basophils % 0.3 %; Eosinophils % 0.3 %; Hematocrit 32.6 % (36-47); Lymphocytes # 0.7 10^3/uL (0.8-4.8); Lymphocytes % 7.8 %; Mean Corpuscular HGB Conc 30.4 g/dL (30-55); Mean Corpuscular Hemoglobin 25.4 pg (27-33); Mean Corpuscular Volume 83.8 fl (85-98); Mean Platelet Volume 11.3 fL (7.4-10.4); Monocytes # 0.6 10^3/uL (0.2-0.9); Monocytes % 6.2 %; Neutrophils # 7.91 10^3/uL (1.8-7.7); Nucleated Red Blood Cells % 0 %; Platelet Count 368 10^3/cmm (157-399); Red Blood Count 3.89 10^6/uL (3.85-5.65); Red Cell Distribution Width 16.4 % (12.1-15.1); White Blood Count 9.32 10^3/uL (3.29-11.43)
[2024-11-03 02:43] LABS: ABG PCO2 43.3 mmHg (35-45); ABG PH Result 7.38 (7.35-7.45); Arterial Blood Gas Hematocrit 29.9 % (37-47); Base Excess ABG 0.4 mmol/L (-2.0-2.0); Blood Gas Sample Site Brachial, right; Blood Gas Sample Type Arterial; Carboxyhemoglobin 1.1 %THgb (0.4-20.1); HCO3 ABG 25.7 mmol/L (22-26); HGB O2 Sat 95.8 % (95-100); Methemoglobin 1.1 % (0.4-1.5); Oxygen Device NC; PO2 ABG 94.6 mmHg (80.0-100.0); Total Hemoglobin 9.8 g/dL (12-16)
[2024-11-03 02:54] LABS: Lactic Sepsis W/Reflex 1.9 mmol/L (0.5-2.2)
[2024-11-03 03:05] LABS: Alanine Aminotransferase 7 U/L (0-33); Albumin Level 3.4 g/dL (3.5-5.2); Alkaline Phosphatase 73 U/L (35-105); Anion Gap 20.5 (5-19); Aspartate Amino Transferase 9 U/L (0-32); Blood Urea Nitrogen 18 mg/dL (8-23); Carbon Dioxide 23 mmol/L (22-29); Chloride 102 mmol/L (98-107); Creatinine Clr Calc Pharmacy 42.3526; Globulin 3.8 g/dL (1.3-4.6); Glucose 338 mg/dL (65-115); NT Pro B Type Natriuretic Pept 10586 pg/mL (0-450); Osmolality Calculated 307 mOsm/kg (285-295); Potassium 4.5 mmol/L (3.5-5.1); Sodium 141 mmol/L (136-145); Total Bilirubin 0.3 mg/dL (0.15-1.2); Total Protein 7.2 g/dL (6.6-8.7)
[2024-11-03 03:11] LABS: Influenza A NEGATIVE (Negative); Influenza B NEGATIVE (Negative); Respiratory Syncytial Virus Ce NEGATIVE (Negative); SARS-CoV-2 PCR NEGATIVE (Negative)
--- NOTE | 2024-11-03 03:33 | W.ED.SOB ---
HPI - SOB/Dyspnea General: Chief Complaint: Shortness of Breath/Dyspnea Stated Complaint: SOB Time Seen by Provider: 11/03/24 02:10 History of Present Illness: HPI Narrative: 84-year-old female with a history of diastolic heart failure. She was recently discharged from the hospital after being admitted for hypoxic respiratory failure, osteomyelitis of her left foot requiring surgery. She presents with sudden onset shortness of breath that home tonight. She is given a breathing treatment on the way here, with some improvement. She does wear oxygen at home. She has a history of COPD as well. She said she has had a cough with some sputum production. No chest pain. No increased swelling in her legs from prior. Related Data Home Medications ?Medication ?Instructions ?Recorded ?Confirmed nitroglycerin 0.4 mg sublingual 0.4 mg buccal PRN PRN Chest Pain 04/10/24 11/03/24 tablet isosorbide mononitrate 60 mg 60 mg PO DAILY 06/07/24 11/03/24 tablet,extended release 24 hr amiodarone 200 mg tablet 200 mg PO DAILY 07/18/24 11/03/24 atorvastatin 40 mg tablet 40 mg PO QPM 07/18/24 11/03/24 tramadol 50 mg tablet 50 mg PO Q6H PRN Pain 07/18/24 11/03/24 albuterol sulfate 2.5 mg/3 mL 2.5 mg continuous nebulization TID 10/29/24 11/03/24 (0.083 %) solution for nebulization PRN Shortness Of Breath insulin degludec 200 unit/mL (3 27 unit SUBCUT DAILY 10/29/24 11/03/24 mL) subcutaneous pen (Tresiba FlexTouch U-200 insulin) Held on 11/02/24. Instructions: see pcp ranolazine 1,000 mg 1,000 mg PO BID 11/03/24 11/03/24 tablet,extended release,12 hr Previous Rx's ?Medication ?Instructions ?Recorded clopidogrel 75 mg tablet 75 mg PO BEDTIME #90 tabs 03/27/24 furosemide 40 mg tablet 40 mg PO BID@0800,1400 30 days #60 05/28/24 tabs insulin aspart U-100 100 unit/mL See Rx Instructions .Route 06/11/24 (3 mL) subcutaneous pen (Novolog .COMPLEX #15 mL FlexPen U-100 Insulin aspart) budesonide-formoterol HFA 80 1 inh inhalation BID #10.2 grams 07/23/24 mcg-4.5 mcg/actuation aerosol inhaler (Symbicort) nebulizer and compressor ([id number] #1 ea 07/23/24 Nebulizer) sacubitril 24 mg-valsartan 26 mg 1 tab PO BID #60 tabs 07/25/24 tablet (Entresto) Held on 11/02/24. Instructions: see cardiology aspirin 81 mg tablet,delayed 81 mg PO DAILY #30 tabs 08/07/24 release metoprolol tartrate 25 mg tablet 12.5 mg (1/2 x 25 mg) PO 08/07/24 Held on 11/02/24. BID@0900,2100 #60 tabs Instructions: see cardiology neomycin-bacitracn Zn-polymyx 3.5 1 applic topical BID #30 grams 08/07/24 mg-400 unit-5,000 unit/gram top oint (Triple Antibiotic) potassium chloride 20 mEq 10 meq (1/2 x 20 mEq) PO DAILY #30 08/07/24 tablet,extended release(part/cryst) tabs losartan 25 mg tablet 25 mg PO DAILY #30 tabs 08/08/24 ciprofloxacin HCl 500 mg tablet 500 mg PO BID 14 days #28 tabs 11/01/24 linezolid 600 mg tablet 600 mg PO BID 14 days #28 tabs 11/01/24 Allergies Allergy/AdvReac Type Severity Reaction Status Date / Time No Known Allergies Allergy Verified 09/18/24 19:54 [facility] ED PFSH: Medical History Dyslipidemia Essential (primary) hypertension COPD (chronic obstructive pulmonary disease) Chronic hypoxic respiratory failure, on home oxygen therapy Diabetes mellitus, type II, insulin dependent CAD (coronary artery disease) Paroxysmal A-fib CKD (chronic kidney disease) CHF (congestive heart failure) Respiratory arrest has required intubation Non-STEMI (non-ST elevated myocardial infarction) Contrast-induced nephropathy Surgical History Hx of hysterectomy Hx of CABG Family History Unknown No problems noted. Social History Smoking and tobacco/nicotine status: former use of tobacco/nicotine Alcohol intake: never Substance/Drug Use: never Physical Exam Const: GENERAL APPEARANCE: cooperative, in distress and ill appearing ORIENTATION/CONSCIOUSNESS: Yes awake, Yes oriented to person and Yes oriented to place HENMT: COMMON NORMALS: normocephalic and Normal external nose present HEAD & SCALP: normocephalic FACE & SINUS: face symmetric NOSE: Normal external nose present Eye: COMMON NORMALS: Equal, round and reactive pupils present and EOMs intact bilaterally PUPIL: Yes Equal, round and reactive pupils present Resp: EFFORT & INSPECTION: Yes tachypneic and Yes labored (mildly) AUSCULTATION: wheezes Cardio: COMMON NORMALS: regular rate and regular rhythm RATE: regular rate RHYTHM: regular rhythm GI: COMMON NORMALS: Soft to palpation INSPECTION: Yes abdominal distension (mild) PALPATION: Yes Soft to palpation Extremity: NARRATIVE EXTREMITY EXAM: mild edema Neuro: SENSORIUM/ORIENTATION: Yes oriented to person and Yes oriented to place Course Vital Signs: Vital signs: Vital Signs Temperature 98.9 F 11/03/24 12:00 Pulse Rate 58 L 11/03/24 15:33 Respiratory Rate 20 H 11/03/24 15:32 Blood Pressure 139/71 11/03/24 12:00 Pulse Oximetry 98 11/03/24 15:33 Oxygen Delivery Me thod Nasal Cannula 11/03/24 15:32 Oxygen Flow Rate 3 11/03/24 15:32 Fraction of Inspir ed Oxygen 30 11/03/24 15:33 MDM - SOB/Dyspnea Medical Decision Making This patient takes 40 mg Lasix twice daily. She has a history of diastolic heart failure. She has a normal saturation currently on her home oxygen settings. Her chest x-ray shows a small right pleural effusion with pulmonary vascular congestion and cardiomegaly. Her BNP is 10,000. Swabs for COVID flu and RSV are negative. Blood gas testing is normal. Hemoglobin is 9.9 with a white blood cell count of 9.3. She is given 60 mg of IV Lasix here, has begun to diurese. She had a brief episode where she did not have any distress. During this time she was on her phone, on her home oxygen setting, and breathing quite normally. At this point, she was adamant to my nursing staff that she wanted to go home. Within 1 to 1.5 hours, though, she was back significantly short of breath, tachypneic, and labored. She will be placed on BiPAP at this point. Suspect worsening flash pulmonary edema. She will have to be admitted. Her son is here now. He feels he will not be able to take care of her at home after this hospital admission. He is concerned that she may need to have a rehab stay. He is encouraged to be present and make his wishes known to both the patient and the hospital staff when discharge planning starts. Lab Data 11/03/24 06:10 11/03/24 06:10 Labs/Radiology: Radiology Impressions Chest X-Ray 11/03/24 02:06 IMPRESSION: 1. Bibasilar atelectasis or other infiltrates. 2. Mild pulmonary vascular congestion. 3. Bilateral pleural effusions. Laboratory Results WBC 9.32 10^3/uL (3.29-11.43) 11/03/24 02:19 RBC 3.89 10^6/uL (3.85-5.65) 11/03/24 02:19 Hgb 9.90 g/dL (11.27-16.99) L 11/03/24 02:19 Hct 32.6 % (36-47) L 11/03/24 02:19 MCV 83.8 fl (85-98) L 11/03/24 02:19 MCH 25.4 pg (27-33) L 11/03/24 02:19 MCHC 30.4 g/dL (30-55) 11/03/24 02:19 RDW 16.4 % (12.1-15.1) H 11/03/24 02:19 Plt Count 368 10^3/cmm (157-399) 11/03/24 02:19 MPV 11.3 fL (7.4-10.4) H 11/03/24 02:19 Neut % (Auto) 85.0 % 11/03/24 02:19 Lymph % (Auto) 7.8 % 11/03/24 02:19 [place] % (Auto) 6.2 % 11/03/24 02:19 Eos % (Auto) 0.3 % 11/03/24 02:19 Baso % (Auto) 0.3 % 11/03/24 02:19 Neut # (Auto) 7.91 10^3/uL (1.8-7.7) H 11/03/24 02:19 Lymph # (Auto) 0.7 10^3/uL (0.8-4.8) L 11/03/24 02:19 [place] # (Auto) 0.6 10^3/uL (0.2-0.9) 11/03/24 02:19 Eos # (Auto) 0.0 10^3/uL (0.0-0.8) 11/03/24 02:19 Baso # (Auto) 0.0 10^3/uL (0.0-0.1) 11/03/24 02:19 Nucleated RBC % (auto) 0 % 11/03/24 02:19 Nucleated RBCs # 0.0 /100WBC 11/03/24 02:19 Specimen Type Arterial 11/03/24 02:33 Sample Site Brachial, right 11/03/24 02:33 ABG pH 7.38 (7.35-7.45) 11/03/24 02:33 ABG pCO2 43.3 mmHg (35-45) 11/03/24 02:33 ABG pO2 94.6 mmHg (80.0-100.0) 11/03/24 02:33 ABG HCO3 25.7 mmol/L (22-26) 11/03/24 02:33 ABG Base Excess 0.4 mmol/L (-2.0-2.0) 11/03/24 02:33 Tanner Test N/a 11/03/24 02:33 Hematocrit 29.9 % (37-47) L 11/03/24 02:33 Hgb O2 Saturation 95.8 % (95-100) 11/03/24 02:33 Carboxyhemoglobin 1.1 %THgb (0.4-20.1) 11/03/24 02:33 Methemoglobin 1.1 % (0.4-1.5) 11/03/24 02:33 Total Hemoglobin 9.8 g/dL (12-16) L 11/03/24 02:33 O2 Delivery Device Nc 11/03/24 02:33 O2 Liters/Min 4.0 % 11/03/24 02:33 Ski Tow Operator ID [email or web address] 11/03/24 02:33 Sodium 141 mmol/L (136-145) 11/03/24 02:19 Potassium 4.5 mmol/L (3.5-5.1) 11/03/24 02:19 Chloride 102 mmol/L (98-107) 11/03/24 02:19 Carbon Dioxide 23 mmol/L (22-29) 11/03/24 02:19 Anion Gap 20.5 (5-19) H 11/03/24 02:19 BUN 18 mg/dL (8-23) 11/03/24 02:19 Creatinine 1.1 mg/dL (0.5-0.9) H 11/03/24 02:19 GFR Calculation Not Reportable 11/03/24 02:19 Glucose 338 mg/dL (65-115) H 11/03/24 02:19 Calculated Osmolality 307 mOsm/kg (285-295) H 11/03/24 02:19 Lactic Acid 1.9 mmol/L (0.5-2.2) 11/03/24 02:19 Calcium 9.0 mg/dL (8.5-10.5) 11/03/24 02:19 Total Bilirubin 0.3 mg/dL (0.15-1.2) 11/03/24 02:19 AST 9 U/L (0-32) 11/03/24 02:19 ALT 7 U/L (0-33) 11/03/24 02:19 Alkaline Phosphatase 73 U/L (35-105) 11/03/24 02:19 Troponin T Baseline 30 ng/L (0-10) H 11/03/24 05:03 NT-Pro-B Natriuret Pep 01250 pg/mL (0-450) H 11/03/24 02:19 Total Protein 7.2 g/dL (6.6-8.7) 11/03/24 02:19 Albumin 3.4 g/dL (3.5-5.2) L 11/03/24 02:19 Globulin 3.8 g/dL (1.3-4.6) 11/03/24 02:19 Influenza A (PCR) Negative (Negative) 11/03/24 02:16 Influenza Type B (PCR) Negative (Negative) 11/03/24 02:16 RSV (PCR) Negative (Negative) 11/03/24 02:16 SARS-CoV-2 (PCR) Negative (Negative) 11/03/24 02:16 All radiology interpretation(s) finalized by discharge Critical Care Time Critical Care Time: Critical Care Time: Yes Total Critical Care Time: 35 Attestation: This case had a high probability of a clinically significant, sudden, or life threatening deterioration of this patient's condition which required my full and direct attention, intervention and personal management. Time is independent of any procedures performed. Discharge Plan Discharge Patient Disposition: Admitted As Inpatient Admit Provider: Agata Campos Clinical Impression: Congestive heart failure, COPD (chronic obstructive pulmonary disease), Acute hypoxic respiratory failure, Pulmonary edema Condition: Fair Coding Level of Care Code ED Director Dermatology for Akosua Vasquez
--- NOTE | 2024-11-03 04:46 | ECG_ITS ---
[facility] Date: 2024-11-03 Pat Name: Sally Henderson Department: Room: Gender: Female Clinical Research Director: : 1940 Requested By: Bebeto Yeager Order Number: [id number] Leonora MD: Leigh Torres M.D. Measurements Intervals [place] Rate: 70 P: 32 ME: 175 QRS: -18 QRSD: 126 T: 180 QT: 423 QTc: 459 Interpretive Statements SINUS RHYTHM MODERATE INTRAVENTRICULAR CONDUCTION DELAY [110+ ms QRS DURATION] ST DEVIATION AND MODERATE T-WAVE ABNORMALITY, CONSIDER LATERAL ISCHEMIA [-0.1+ mV T-WAVE IN I/aVL/V5/V6] Compared to ECG 11/03/2024 02:03:54 Possible ischemia now present Sinus arrhythmia no longer present T-wave abnormality still present Electronically Signed On 11-03-2024 19:18:24 CDT by Leigh Torres M.D. [email or web address]
--- NOTE | 2024-11-03 04:57 | PC.NURSE ---
While answering patient's call light I noticed patient short of breath again. I asked her if she had taken off her oxygen or something and she states no , but she was feeling short of breath again. I also noticed that the patient was incontinent and went to get linens to change her bed and ask the doctor to re-evaluate her breathing as well. When I came back into the room the patients son came into the room and states that she was not supposed to go home , she was supposed to go to rehab . Pt's son seemed very upset. I explained that I had spoke with the nurses on med surg and it is reported in her chart that she refused transfer to rehab 3 different times when staff was urging her to go. The patient's son seemed angrier and states that he did not believe that because she was saying that she did not remember refusing the transfer. The patient's son then said she has said it here in front of 4 witnesses that she is not refusing now to be transferred and she does not need to go home like this. Dr. Garcia came into the room to speak with the son and answer any questions that he may have and explain the newly changing shortness of breath and that he has put in new orders as well as ordered a bi-pap.
[2024-11-03] MEDS: albuterol 2.5 MG/0.5 ML NEB INHALATION (05:10)
[2024-11-03 05:33] LABS: Troponin(5th) Baseline 30 ng/L (0-10)
--- NOTE | 2024-11-03 05:48 | USCV_ITS ---
Sally Henderson Age: 84 Gender: F : 1940 Exam Date: 11/03/2024 06:50 Ordering Phys: Agata Campos MD Technologist: ALEXYS [place]am [place] [facility] [place]ication: HF BP: 145 / 50 HR: 67 Rhythm: Sinus Technical Quality: Adequate MEASUREMENTS (Male / Female) Normal Values 2D ECHO LV Diastolic Diameter PLAX 5.6 cm 4.2 - 5.9 / 3.9 - 5.3 cm IVS Diastolic Thickness 1.3 cm 0.6 - 1.0 / 0.6 - 0.9 cm IVS Systolic Thickness 1.8 cm LVPW Diastolic Thickness 1.5 cm 0.6 - 1.0 / 0.6 - 0.9 cm LVPW Systolic Thickness 1.5 cm LVOT Diameter 1.9 cm LV Ejection Fraction 2D Teich 47.5 % LV Ejection Fraction MOD 4C 45.2 % LV Ejection Fraction MOD 2C 52.3 % LV Ejection Fraction 2C AL 52.5 % LA Diameter 4.2 cm RA Systolic Volume 4C AL 50.0 ml RA Systolic Volume 4C MOD 49.6 ml LA Sys Volume AL 48.3 cm cubed LA Sys Volume Index AL 28.2 cm cubed/m squared Aorta at Sinotubular Diameter 2.7 cm M-MODE LA Ao Ratio MM 1.4 AV Cusp Separation MM 1.1 cm DOPPLER AV Peak Velocity 128.0 cm/s LVOT Peak Velocity 92.0 cm/s AV Area Cont Eq vti 2.0 cm squared AV Area Cont Eq pk 2.0 cm squared MV Peak Velocity 124.0 cm/s MV Area PHT 3.6 cm squared Mitral E to A Ratio 2.2 TR Peak Velocity 91.0 cm/s TR Peak Gradient 3.3 mmHg TV Peak E Velocity 82.0 cm/s PV Peak Velocity 85.0 cm/s FINDINGS Left Ventricle Mildly dilated LV cavity with hypokinesis of inferior, inferoseptal and inferior lateral wall segments. Overall left ventricular systolic function are moderately reduced estimated LVEF is 45%. Right Ventricle Normal right ventricular size and systolic function. Right Atrium Normal right atrial size. Normal right atrial size. Left Atrium Mildly dilated left atrium Mitral Valve Mildly thickened mitral valve. There is mild mitral regurgitation. Aortic Valve Mildly thickened aortic valve. No aortic stenosis. Tricuspid Valve Structurally normal tricuspid valve. Trace tricuspid valve regurgitation. Normal tricuspid gradient Pulmonic Valve Pulmonic valve not well visualized. Trace pulmonary valve regurgitation. Pericardium No pericardial effusion. Aorta Normal size aortic root and proximal ascending aorta. IVC Inferior vena cava not visualized. CONCLUSIONS Mildly dilated LV cavity with moderately reduced LV systolic function. Hypokinesis of inferoseptal, inferior and inferolateral wall segments. Estimated LVEF 45%. Mildly dilated left atrium with mild mitral regurgitation. Normal RV size and systolic function. Normal right heart and pulmonary pressures. Overall no significant change compared to the echo from August 2024. Leigh Torres MD (Electronically Signed) Final Date: 03 November 2024 13:21 S
--- NOTE | 2024-11-03 05:49 | PM.HP ---
Providers/Chief Complaint Admitting Physician: Patient seen after 12 midnight Primary Care Provider: Antonio Delgado MD Chief Complaint: SOB History of Present Illness Sally Henderson is a 84 year old female with medical history significant for CHF and who had been admitted recently for a left great toe gangrenous toe with osteomyelitis. Patient was status post left great toe amputation because of osteomyelitis. Patient also had staph bacteremia from these gangrenous toes. Goal is to amputate the disease great toe. Patient also was with CHF exacerbation. Patient treated and was discharged yesterday on Zyvox for 14 days and oral Lasix. This morning patient got really short of breath the son brought her in for further care and evaluation. The son is very furious that the mother was supposed to go to rehab center and it was documented by 3 different nurses at discharge that the patient refused to go. Patient also related to the ED nurse that was the primary nurse this morning for this admission that when he she gets treated she wants to go home she does not want to go to rehab. When the same nurse told the patient that the son will be coming and when the son came and asked her that whenever she gets down she should go to rehab and was also being told that she said no to rehab and she related to the son that she never remember any of that she never remember telling anybody that she did not go or she does not want to go to rehab. Son is upset that the mother did not go to rehab and that the mother never said that he wall she was not going to rehab. This hospitalization at the end of optimization of care this patient needs to go to rehab and his son needs to be involved at the time of discharge to avoid these type of communication. Myself and the emergency room doctor had communicated with the son in the room trying to calm him down patient is going to stepdown unit on BiPAP. She had received 60 mg of IV Lasix here in the emergency room. I will continue with 40 mg IV twice daily of Lasix I am panculturing the patient to make sure that patient is none bacteremic and will continue with antibiotics that was ordered at the time of discharge patient can continue to have that as well. If patient is not bacteremic as of today then patient will continue with Zyvox for 14 to 14 days counting from the date of being none bacteremic. Review of Systems Narrative: General The patient is in no apparent distress. On BiPAP able to make needs known. System review unremarkable except for respiratory failure. Medications/Allergies Home Medications ?Medication ?Instructions ?Recorded ?Confirmed ?Last Taken ?Type clopidogrel 75 mg tablet 75 mg PO BEDTIME #90 tabs 03/27/24 10/29/24 10/27/24 Rx nitroglycerin 0.4 mg sublingual 0.4 mg buccal PRN PRN Chest Pain 04/10/24 10/29/24 Unknown History tablet furosemide 40 mg tablet 40 mg PO BID@0800,1400 30 days #60 05/28/24 10/29/24 10/28/24 Rx tabs isosorbide mononitrate 60 mg 60 mg PO DAILY 06/07/24 10/29/24 10/28/24 History tablet,extended release 24 hr insulin aspart U-100 100 unit/mL See Rx Instructions .Route 06/11/24 10/29/24 08/04/24 Rx (3 mL) subcutaneous pen (Novolog .COMPLEX #15 mL FlexPen U-100 Insulin aspart) amiodarone 200 mg tablet 200 mg PO DAILY 07/18/24 10/29/24 10/28/24 History atorvastatin 40 mg tablet 40 mg PO QPM 07/18/24 10/29/24 10/27/24 History tramadol 50 mg tablet 50 mg PO Q6H PRN Pain 07/18/24 10/29/24 10/28/24 History budesonide-formoterol HFA 80 1 inh inhalation BID #10.2 grams 07/23/24 10/29/24 10/28/24 Rx mcg-4.5 mcg/actuation aerosol inhaler (Symbicort) nebulizer and compressor ([id number] #1 ea 07/23/24 10/29/24 Unknown Rx Nebulizer) sacubitril 24 mg-valsartan 26 mg 1 tab PO BID #60 tabs 07/25/24 10/29/24 10/28/24 Rx tablet (Entresto) Held on 11/02/24. Instructions: see cardiology aspirin 81 mg tablet,delayed 81 mg PO DAILY #30 tabs 08/07/24 10/29/24 10/28/24 Rx release metoprolol tartrate 25 mg tablet 12.5 mg (1/2 x 25 mg) PO 08/07/24 10/29/24 10/28/24 Rx Held on 11/02/24. BID@0900,2100 #60 tabs Instructions: see cardiology neomycin-bacitracn Zn-polymyx 3.5 1 applic topical BID #30 grams 08/07/24 10/29/24 10/28/24 Rx mg-400 unit-5,000 unit/gram top oint (Triple Antibiotic) potassium chloride 20 mEq 10 meq (1/2 x 20 mEq) PO DAILY #30 08/07/24 10/29/24 10/28/24 Rx tablet,extended release(part/cryst) tabs ranolazine 500 mg tablet,extended 1,000 mg (2 x 500 mg) PO BID #120 08/07/24 10/29/24 10/28/24 Rx release,12 hr tabs losartan 25 mg tablet 25 mg PO DAILY #30 tabs 08/08/24 10/29/24 10/28/24 Rx albuterol sulfate 2.5 mg/3 mL 2.5 mg continuous nebulization TID 10/29/24 10/29/24 Unknown History (0.083 %) solution for nebulization PRN Shortness Of Breath insulin degludec 200 unit/mL (3 27 unit SUBCUT DAILY 10/29/24 10/29/24 10/28/24 History mL) subcutaneous pen (Tresiba FlexTouch U-200 insulin) Held on 11/02/24. Instructions: see pcp ciprofloxacin HCl 500 mg tablet 500 mg PO BID 14 days #28 tabs 11/01/24 Unknown Rx linezolid 600 mg tablet 600 mg PO BID 14 days #28 tabs 11/01/24 Unknown Rx Allergies Allergy/AdvReac Type Severity Reaction Status Date / Time No Known Allergies Allergy Verified 09/18/24 19:54 PFSH Acute PFSH: Medical History Dyslipidemia Essential (primary) hypertension COPD (chronic obstructive pulmonary disease) Chronic hypoxic respiratory failure, on home oxygen therapy Diabetes mellitus, type II, insulin dependent CAD (coronary artery disease) Paroxysmal A-fib CKD (chronic kidney disease) CHF (congestive heart failure) Respiratory arrest has required intubation Non-STEMI (non-ST elevated myocardial infarction) Contrast-induced nephropathy Surgical History Hx of hysterectomy Hx of CABG Family History Unknown No problems noted. Social History Smoking and tobacco/nicotine status: former use of tobacco/nicotine Alcohol intake: never Substance/Drug Use: never Vitals/I&O/Wt Last Vital Signs Temp 98.4 F 11/03/24 02:06 Pulse 75 11/03/24 05:05 Resp 20 H 11/03/24 02:25 BP 141/55 11/03/24 02:06 Pulse Ox 99 11/03/24 05:05 O2 Del Method Nasal Cannula 11/03/24 02:25 O2 Flow Rate 4 11/03/24 02:25 FiO2 40 11/03/24 05:05 11/02/24 11/02/24 11/03/24 14:59 22:59 06:59 Intake Total 0 / 0 Balance 0 / 0 Weight last 48 hrs Weight 68.039 kg Physical Exam Narrative: General The patient looks well in no apparent distress less short of breath now has been optimized with 60 mg of IV Lasix and has been on BiPAP for at least an hour prior to the emergency room consulting the hospitalist to see this patient for evaluation for admission. Son is in the room at the bedside HEENT normocephalic/atraumatic neck neck is supple cardiovascular heart is regular lungs are with coarse breath sound abdomen soft nontender nondistended unremarkable extremities are intact no edema has good pulses, noted left great toe amputation wrapped in a Kerlix dressing. Neurology has no focality lab studies lab studies reviewed and noted. Data 11/03/24 06:10 11/03/24 02:19 Micro: Microbiology 11/03/24 02:24 Blood Culture - Preliminary Blood SPECIMEN COLLECTED 11/03/24 02:19 Blood Culture - Preliminary Blood SPECIMEN COLLECTED A&P Assessment and plan (1) Acute exacerbation of CHF (congestive heart failure): Patient is with CHF with systolic dysfunction BNP 10,500 - Patient had received Lasix 60 mg IV in the emergency room - I am continuing with 40 mg IV Lasix twice daily - Spironolactone be added to the regimen at 25 mg once daily - Continue to follow through and optimize - Nebulizing treatment - Supplemental oxygen with the BiPAP (2) Acute dyspnea: Dyspnea secondary to CHF exacerbation - Cause of CHF could be multifactorial in this patient, has the patient cleared bacteremia - Continue care as in CHF exacerbation - Obtain blood cultures continue patient discharge antibiotics (3) Osteomyelitis of great toe of left foot: Complete antibiotics as prescribed at discharge (4) Diabetic 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 Plan GI and DVT prophylaxis in place PDMP PDMP Reviewed: Last Reviewed 11/03/24 06:13 by Agata Campos MD Attestations Medical Necessity Statement*: Patient is with acute heart failure and deserves inpatient at least minimum of 2 midnights. Coding Level of Care Code 63569 Diagnoses Acute exacerbation of CHF (congestive heart failure) I50.9 Acute dyspnea R06.00 Osteomyelitis of great toe of left foot M86.9 Diabetic foot ulcer associated with type 2 diabetes mellitus E11.621; L97.509 Bacteremia due to Staphylococcus R78.81; B95.8 Time Spent (min) 60
--- NOTE | 2024-11-03 06:14 | PC.NURSE ---
at 0510 pt was found to be short of breath after using the bedpan, made aware and pt placed on bipap. discharge order canceled and determination to have the pt admitted made. son at bed side behaving aggressively toward staff, charge nurse Pineda made aware and was at bed side talking with pt and family member at 0530. son is demanding to have pt instantly moved to the floor and transfered to rehab. when son was informed that an inpatient bed would not be available until after shift change he demanded to be put in contact with the harvest supervisor network control technician. housekeeping laundry worker at bed side discussing issues with son.
[2024-11-03 06:17] LABS: Basophils % 0.3 %; Hematocrit 31.3 % (36-47); Lymphocytes # 0.6 10^3/uL (0.8-4.8); Lymphocytes % 6.5 %; Mean Corpuscular HGB Conc 30.4 g/dL (30-55); Mean Corpuscular Hemoglobin 25.4 pg (27-33); Mean Corpuscular Volume 83.7 fl (85-98); Mean Platelet Volume 11.3 fL (7.4-10.4); Monocytes # 0.5 10^3/uL (0.2-0.9); Neutrophils # 7.55 10^3/uL (1.8-7.7); Neutrophils % 86.7 %; Nucleated Red Blood Cells % 0 %; Platelet Count 375 10^3/cmm (157-399); Red Blood Count 3.74 10^6/uL (3.85-5.65); Red Cell Distribution Width 16.3 % (12.1-15.1); White Blood Count 8.71 10^3/uL (3.29-11.43)
[2024-11-03 06:33] LABS: Alanine Aminotransferase 7 U/L (0-33); Albumin Level 3.1 g/dL (3.5-5.2); Alkaline Phosphatase 73 U/L (35-105); Anion Gap 21.3 (5-19); Aspartate Amino Transferase 9 U/L (0-32); Blood Urea Nitrogen 17 mg/dL (8-23); Calcium 8.9 mg/dL (8.5-10.5); Carbon Dioxide 25 mmol/L (22-29); Chloride 99 mmol/L (98-107); Creatinine Clr Calc Pharmacy 42.3526; Globulin 3.7 g/dL (1.3-4.6); Glucose 373 mg/dL (65-115); Magnesium 1.6 mg/dL (1.7-2.3); Osmolality Calculated 309 mOsm/kg (285-295); Phosphorus 3.2 mg/dL (2.5-4.5); Potassium 4.3 mmol/L (3.5-5.1); Sodium 141 mmol/L (136-145); Total Bilirubin 0.3 mg/dL (0.15-1.2); Total Protein 6.8 g/dL (6.6-8.7)
[2024-11-03 06:45] LABS: Estmated Average Glucose 249; Hemoglobin A1C 10.3 % (4.0-6.0)
--- OUTSIDE RECORDS SUMMARY | 2024-11-03 06:49 | XMS_ITS | Encounter Summary ---
Author Organization [facility] Address [address] [place] [address] Care Team Providers Care Printed Circuit Layout Taper Name Role Phone Thomas Nava DO Primary Care Provider [phone] Encounter Details Date Type Department Care Team (Late st Contact Info) Description 10/29/2024 External Device Data [facility]CTION Provider, Abstract NO ADDRESS ON FILE Social History Tobacco Use Types Packs/Day Years Used Date Smoking Tobacco: Never Smokeless Tobacco: Never Alcohol Use Standard Drinks/Week Comments No 0 (1 standard drink = 0.6 oz pur e alcohol) Feeling Safe Answer Date Recorded Are you in a relationship wi th someone who hurts you emotionally and/or physically? 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
--- OUTSIDE RECORDS SUMMARY | 2024-11-03 06:49 | XMS_ITS | Clinical Summary ---
[facility] Organization [facility] Address [address] Abad: Epic Prelude [place]T [place] [address] Care Team Providers Care Clinical Research Scientist Name Role Phone Thomas Nava DO Primary Care Provider [phone] Allergies No known active allergies Medications potassium bicarbonate-citr ic acid (EFFER-K) 20 mEq Tablet, Effervescent Take 20 mEq by mouth. Active RANITIDINE HCL ORAL Take 150 mg by mouth 2 times daily. Active atorvastatin (LIPITOR) 20 mg tablet Take 20 mg by mouth daily at bedtime. Active furosemide (LASIX) 40 mg tablet Take 40 mg by mouth daily. Active gabapentin (NEURONTIN) 600 mg tablet Take 600 mg by mouth daily. Active gemfibroziL (LOPID) 600 mg tablet Take 600 mg by mouth 2 times daily. Active pantoprazole (PROTONIX) 40 mg Tablet, Delayed Release (E.C.) Take 40 mg by mouth daily. Active aspirin (ECOTRIN EC) 81 mg Tablet, Delayed Release (E.C.) Take 81 mg by mouth daily. Active metoprolol succinate (TOPROL XL) 25 mg Extended Release 24 hour tablet Take 0.5 Tablets (12.5 mg) by mouth daily. 4 Active insulin lispro (HumaLOG,ADMELOG ) 100 unit/mL pen syringe Inject 0-12 Units by subcutaneous injection 3 times daily with meals. 4 Active insulin lispro (HumaLOG,ADMELOG ) 100 unit/mL pen syringe Inject 0-6 Units by subcutaneous injection daily at bedtime. 4 Active insulin lispro (HumaLOG,ADMELOG ) 100 unit/mL pen syringe Inject 3 Units by subcutaneous injection 3 times daily with meals. Active Active Problems Problem Noted Date Diagnosed Date Uncontrolled type 2 diabetes mellitus with hyper glycemia 01/04/2024 NSTEMI (non-ST elevated myocardial infarction) 0 12/30/2023 Type 2 diabetes mellitus, wi th long-term current use of insulin 12/30/2023 CAD (coronary artery disease) 06/20/2013 Essential hypertension, benign 06/20/2013 CHF (congestive heart failure), NYHA class IV Type II or unspecified type diabetes mellitus with other specified manifestations, not stated as uncontrolled 06/20/2013 Crescendo angina 06/20/2013 Hyperlipidemia 06/20/2013 Encounters Date Type Department Care Team Description 10/29/2024 External Device Data [facility] ABSTRACTION Provider, Abstract 08/27/2024 External Device Data [facility] ABSTRACTION Provider, Abstract 08/20/2024 External Device Data [facility] ABSTRACTION Provider, Abstract from Last 3 Months Immunizations Immunization Administration Dates Next Due Influenza Seasonal Unspecified Formulation IM Pneumococcal conjugate, unspecified formulation 06/29/2010 Social History Tobacco Use Types Packs/Day Years Used Date Smoking Tobacco: Never Smokeless Tobacco: Never Tobacco Cessation:Counseling Given: Not Answered Alcohol Use Standard Drinks/Week Comments No 0 [...] on file Legal Sex Female 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 Gender Identity Not on file Sexual Orientation Not on file Last Filed Vital Signs Vital Sign Reading Time Taken Comments Blood Pressure 124/70 03/06/2024 1:22 PM CDT Pulse 88 03/06/2024 1:22 PM CDT Temperature 36.1 C (97 F) 01/05/2024 11:05 AM CDT Respiratory Rate 20 01/05/2024 11:0 5 AM CDT Oxygen Saturation 90% 03/06/2024 1:22 PM CDT Inhaled Oxygen Concentration - - Weight 77.9 kg (171 lb 12.8 oz) 03/06/2024 1:22 PM CDT Height 149.9 cm (4' 11 ) 03/06/2024 1:22 PM CDT Body Mass Index 34.7 03/06/2024 1:22 PM CDT Plan of Treatment Health Maintenance Due Date Last Done Comments DIABETES ANNUAL FOOT EXAM 1960 DIABETES ANNUAL RETINAL EXAM 1960 DIABETES MICROALBUMIN ANNUAL SCREEN 1960 LDL CHOLESTEROL ANNUAL 1960 DTAP/TDAP/TD VACCINES (1 - Tdap) 1961 PNEUMOCOCCAL VACCINE 50+ YEA RS (1 of 2 - PCV) 1961 06/29/2010 ZOSTER VACCINE (1 of 2) 1992 OSTEOPOROSIS SCREENING 2007 RSV VACCINE (60+ or ) (1 - 1-dose 75+ series) 2017 INFLUENZA VACCINE (#1) 2023 02/12/2013 DIABETES HBA1C Q 6 MONTHS 07/03/20242023, 12/27/2023, 07/11/2013 Medical Devices Implanted Type Area Plant Maintenance Manager Device Identifier Shelf Expiration Date Model / Serial / Lot Dev Se[employer]ang[employer] Vip 8fr [id number] - [id number] Implanted:Qty: 1 on 01/04/2024 by Colleen Junior MD at [facility] Closure Device N/A: Groin [facility] [id number] 07/06/2024 [id number] / / [id number] [place] Ptfe Thck 1.6mmx2.5x2.5c m [id number] - Sn/A Implanted:Qty: 1 on 07/12/2013 Graft [employer] 04/11/2018 [id number] / N/A / [id number] Procedures Procedure Name Priority Date/Time Associated Diagnosis Comments HEMOGLOBIN A1C Routine 01/01/2024 4:47 AM CDT from Last 3 Months or Most Recently Relevant to Health Maintenance Results * (ABNORMAL) HEMOGLOBIN A1C (01/01/2024 4:47 AM CDT) HEMOGLOBIN A1C 8.1(H) <=5.6 % 01/03/2024 12:13 PM CDT [facility] EST. AVG GLUCOSE, A1C 186 mg/dL 01/03/2024 12:13 PM CDT [facility] Blood Venipuncture / Unknown 01/01/2024 4:47 AM CDT 01/01/2024 5:04 AM CDT Narrative [facility] - 01/03/2024 12:13 PM CDT HGB A1C INTERPRETATION NORMAL: <5.7% PRE-DIABETES: 5.7 - 6.4% DIABETES: 6.5% OR GREATER us Priyank Loving MD CHEMISTRY ORDERABLES Final Res ult [facility] CLIA # [id number] [facility] [address] from Last 3 Months or Most Recently Relevant to Health Maintenance Insurance [employer] CHOICE PPO MCR Advance Directives For more information, please contact: [phone] * Full Code (Latest Code Status on File) Date Activated Date Inactivated Comments 12/31/2023 12:58 PM 01/05/2024 4:45 PM Care Teams Clinical Research Scientist Relationship Specialty Start Date End Date Thomas Nava DO [address] [address] PCP - General Family Practice 06/26/13
--- OUTSIDE RECORDS SUMMARY | 2024-11-03 06:49 | XMS_ITS | Clinical Summary ---
Author Organization [facility] Address [address] [place] [address] Phone Care Team Providers Care Public Relations Senior Associate Name Role Phone Thomas Nava DO Primary Care Provider [phone] Allergies No known active allergies Medications ranitidine HCl (ZANTAC) 150 mg CapsuleIndicati ons:Crescendo angina (CMS/HCC),CAD (coronary artery disease),Type II or unspecified type diabetes mellitus with other specified manifestations, not stated as uncontrolled,Es sential hypertension, benign,Hyperlip idemia,CHF (congestive heart failure), NYHA class IV (CMS/HCC) Take 150 mg by mouth 2 times daily. Active atorvastatin (LIPITOR) 20 mg tabletIndicatio ns:Crescendo angina (CMS/HCC),CAD (coronary artery disease),Type II or unspecified type diabetes mellitus with other specified manifestations, not stated as uncontrolled,Es sential hypertension, benign,Hyperlip idemia,CHF (congestive heart failure), NYHA class IV (CMS/HCC) Take 20 mg by mouth Daily LATE. Active gabapentin (NEURONTIN) 600 mg tabletIndicatio ns:Crescendo angina (CMS/HCC),CAD (coronary artery disease),Type II or unspecified type diabetes mellitus with other specified manifestations, not stated as uncontrolled,Es sential hypertension, benign,Hyperlip idemia,CHF (congestive heart failure), NYHA class IV (CMS/HCC) Take 600 mg by mouth daily at bedtime. bedtime Active POTASSIUM CHLORIDE (KLOR-CON M20 ORAL)Indication s:Crescendo angina (CMS/HCC),CAD (coronary artery disease),Type II or unspecified type diabetes mellitus with other specified manifestations, not stated as uncontrolled,Es sential hypertension, benign,Hyperlip idemia,CHF (congestive heart failure), NYHA class IV (CMS/HCC) Take by mouth. 1 x day Active gemfibrozil (LOPID) 600 mg tabletIndicatio ns:Crescendo angina (CMS/HCC),CAD (coronary artery disease),Type II or unspecified type diabetes mellitus with other specified manifestations, not stated as uncontrolled,Es sential hypertension, benign,Hyperlip idemia,CHF (congestive heart failure), NYHA class IV (CMS/HCC) Take 600 mg by mouth 2 times daily. Active pantoprazole (PROTONIX) 40 mg Tablet, Delayed Release (E.C.)Indicatio ns:Crescendo angina (CMS/HCC),CAD (coronary artery disease),Type II or unspecified type diabetes mellitus with other specified manifestations, not stated as uncontrolled,Es sential hypertension, benign,Hyperlip idemia,CHF (congestive heart failure), NYHA class IV (CMS/HCC) Take 40 mg by mouth daily. Active furosemide (LASIX) 40 mg tabletIndicatio ns:Crescendo angina (CMS/HCC),CAD (coronary artery disease),Type II or unspecified type diabetes mellitus with other specified manifestations, not stated as uncontrolled,Es sential hypertension, benign,Hyperlip idemia,CHF (congestive heart failure), NYHA class IV (CMS/HCC) Take 40 mg by mouth daily. Active Blood-Glucose Meter (ONE TOUCH ULTRA 2) KitIndications: Crescendo angina (CMS/HCC),CAD (coronary artery disease),Type II or unspecified type diabetes mellitus with other specified manifestations, not stated as uncontrolled,Es sential hypertension, benign,Hyperlip idemia,CHF (congestive heart failure), NYHA class IV (CMS/HCC) [facility]Non-Drug; Combo Route) route. Active insulin aspart protamine-insul in aspart (NOVOLOG MIX 70/30) 100 unit/mL (70-30) Insulin Pen Inject by subcutaneous injection. BS 150=1 unit, Sliding scale Active aspirin (ECOTRIN EC) 81 mg Tablet, Delayed Release (E.C.) Take 1 Tab by mouth daily. 30 Tab 1 4 Active HYDROcodone-james taminophen (NORCO) 5-325 mg tablet Take 1 Tab by mouth every 4 hours as needed for Pain. 30 Tab 0 4 Active clopidogrel (PLAVIX) 75 mg Tablet Take 1 Tab by mouth daily. 30 Tab 2 4 Active isosorbide mononitrate SR 24 hour (IMDUR) 30 mg tablet Take 0.5 Tabs by mouth daily doughnut glazier. 30 Tab 2 4 Active traMADol (ULTRAM) 50 mg tablet Take 1 Tab by mouth every 6 hours as needed for Pain. 30 Tab 0 4 Active oxygen home deliveryIndicat ions:CAD (coronary artery disease),CHF (congestive heart failure), NYHA class IV ([facility]) Rest: Room Air 88% Rest: Oxygen @ 1 L/min via Nasal Cannula 92% Ambulation Room Air: 89 % Ambulation Oxygen @ 2L/min via Nasal Cannula 95% 1 Each 0 4 Active sulfamethoxazol e-trimethoprim (BACTRIM DS) 800-160 mg tablet Take 1 Tab by mouth 2 times daily. 14 Tab 0 4 Active Active Problems Problem Noted Date Diagnosed Date Crescendo angina 06/20/2013 CAD (coronary artery disease) 06/20/2013 Type II or unspecified type diabetes mellitus with other specified manifestations, not stated as uncontrolled 06/20/2013 Essential hypertension, benign 06/20/2013 Hyperlipidemia 06/20/2013 CHF (congestive heart failure), NYHA class IV Immunizations Immunization Administration Dates Next Due Influenza Seasonal Unspecified Formulation IM Pneumococcal conjugate, unspecified formulation 06/29/2010 Social History Tobacco Use Types Packs/Day Years Used Date Smoking Tobacco: Never Smokeless Tobacco: Never Alcohol Use Standard Drinks/Week Comments No 0 (1 standard drink = 0.6 oz pur e alcohol) Comments Unknown Sex and Gender Information Value Date Recorded Sex Assigned at Not on file 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 Gender Identity Not on file Sexual Orientation Not on file Occupation Industry Job Start Date Job End Date Not on file Not on file Not on file Not on file Last Filed Vital Signs Vital Sign Reading Time Taken Comments Blood Pressure 130/70 10/09/2014 11:16 AM CDT Pulse 74 10/09/2014 11:16 AM CDT Temperature 36.2 C (97.2 F) 08/12/2013 12:00 AM CDT Respiratory Rate 20 08/12/2013 12:00 AM CDT Oxygen Saturation 93% 10/09/2014 11:16 AM CDT Inhaled Oxygen Concentration - - Weight 81.6 kg (180 lb) 10/09/2014 11:16 AM CDT Height 152.4 cm (5') 10/09/2014 11:16 AM CDT Body Mass Index 35.15 10/09/2014 11:16 AM CDT Plan of Treatment Health Maintenance Due Date Last Done Comments DIABETES ANNUAL FOOT EXAM 1960 DIABETES ANNUAL RETINAL EXAM 1960 DIABETES MICROALBUMIN ANNUAL SCREEN 1960 LDL CHOLESTEROL ANNUAL 1960 DTAP/TDAP/TD VACCINES (1 - Tdap) 1961 PNEUMOCOCCAL VACCINE 50+ YEARS (1 of 2 - PCV) 05/12/19 61 06/29/2010 ZOSTER VACCINE (1 of 2) 1992 OSTEOPOROSIS SCREENING 2007 DIABETES HBA1C Q 6 MONTHS 01/08/2014 07/11/2013 RSV VACCINE (60+ or ) (1 - 1-dose 75+ series) 2017 INFLUENZA VACCINE (#1) 2023 02/12/2013 Medical Devices Implanted Type Area Custom Feed Corn Operator Device Identifier Shelf Expiration Date Model / Serial / Lot [place] Ptfe Thck 1.6mmx2.5x2.5cm [id number] - Sn/A Implanted:Qty: 1 on 07/12/2013 at [facility] Graft [employer] 04/11/2018 [id number] / N/A / [id number] Procedures Procedure Name Priority Date/Time Associated Diagnosis Comments HEMOGLOBIN A1C Routine 07/11/2013 2:35 PM PLATE PAINTER APPRENTICE Crescendo angina (CMS/HCC) CAD (coronary artery disease) Type II or unspecified type diabetes mellitus with other specified manifestations, not stated as uncontrolled (CMS/HCC) Essential hypertension, benign Hyperlipidemia CHF (congestive heart failure), NYHA class IV (CMS/HCC) from Last 3 Months or Most Recently Relevant to Health Maintenance Results * (ABNORMAL) HEMOGLOBIN A1C (07/11/2013 2:35 PM PLATE PAINTER APPRENTICE) HEMOGLOBIN A1C 8.5(H) 4.0 - 6.0 %A1C [facility] Comment: This test was performed on a [employer] VARIANT II Instrument using HPLC methodology. Blood specimen (specimen) 07/11/2013 2:35 PM PLATE PAINTER APPRENTICE 07/11/2013 2:54 PM PLATE PAINTER APPRENTICE Margaret Sheldon MD CHEMISTRY ORDERABLES F inal Result INTERFACE SYSTEM Refer to clinic/hospital department [facility] CLIA# [id number] [address] [place] [address] from Last 3 Months or Most Recently Relevant to Health Maintenance Insurance [facility]ra [facility] Distra [facility] [address] [place] [id number] Advance Directives For more information, please contact: [phone] * Full Code (Latest Code Status on File) Date Activated Date Inactivated Comments 07/13/2013 7:11 AM 07/18/2013 6:51 PM * Full Code Date Activated Date Inactivated Comments 07/12/2013 11:11 AM 07/13/2013 7:11 AM * Full Code Date Activated Date Inactivated Comments 07/12/2013 10:37 AM 07/12/2013 11:11 AM * Full Code Date Activated Date Inactivated Comments 07/12/2013 4:55 AM 07/12/2013 10:37 AM Care Teams Public Relations Senior Associate Relationship Specialty Start Date End Date Thomas Nava DO [address] [address] PCP - General Family Practice 06/26/13
--- OUTSIDE RECORDS SUMMARY | 2024-11-03 06:49 | XMS_ITS | Patient Health Record ---
Author Organization [facility] Address [address] [place], [place] [address] Care Team Providers Care Justowriter Operator Name Role Phone Thomas Nava DO Primary Care Provider [phone] Micky SOLIS, Angelo Huerta [phone] Reason For Referral No Information Medications Medication SIG (Take, Route, Frequency, Duration) Notes Start Date End Date Status Gelatin as directed Active isosorbide mononitrate 60 mg 1 tab orally once a day Acti ve Plavix 75 mg 1 tab orally once a day Active gabapentin 600 mg 1 tab po orally QHS Active Tresiba FlexTouch 100 units/mL subcutaneously as directed A ctive traMADol 50 mg 1/2 - 1 tab po orall y QID prn pain Active Energy tabs as directed Active Multivitamins Multivitamins with Folic Acid 0.8 mg 1 tab orally once a day Active Calcium 600+D 600 mg-800 intl units orally as directed Active atorvastatin 40 mg 1 tab orally at bedtime Active losartan 25 mg 1 tab orally once a day Active Turmeric Curcumin 500 mg as directed Active biotin 1000 mcg orally as directed Active Social History Tobacco Use: Social History Observation Description Date Details (start date - stop date) Never Smoker NA - NA alcohol Question Answer Notes Did you have a drink containing alcohol in the p ast year? 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) Active confirmed Problem Acquired spondylolisthesis (655295092) Spondylolisthe sis, lumbar region (M43.16) Active confirmed Problem Thoracic spondylosis without myelopathy (323936757) Spondylosis without myelopathy or radiculopathy, thoracic region (M47.814) Active confirmed Problem Spinal stenosis of thoracic region (09488813) Spinal stenosis, thoracic region (M48.04) Active confirmed Problem Pain in thoracic spine (702490204) Pain in thoracic spine (M54.6) Active confirmed Problem Myalgia (43176329) Myalgia (M79.1) Active confirmed Problem Closed fracture thoracic vertebra (775891569) Unspecified fracture of T9-T10 vertebra, initial encounter for closed fracture (S22.079A) Active confirmed Problem Fracture of vertebral column (22514526) Unspecified fracture of T11-T12 vertebra, initial encounter for closed fracture (S22.089A) Active confirmed Problem Long-term current use of drug therapy (224939032) Other alf (current) drug therapy (Z79.899) Active confirmed Plan Of Treatment No Information Insurance Providers Payer Name Payer Address Payer Phone Subscriber Number Group Number Insured Name Patient Relationship to Insured Coverage Start Date Coverage End Date [employer] GOLD CHOICE [address] [address] [place] [address] [id number] Sally Henderson Self - patient is the insured Medical (General) History Medical History History ICD Code Thoracic back pain Chronic back pain Diabetes mellitus Hypertension Coronary artery disease Arthritis Hyperkalemia Right hammer toe Osteopenia Peripheral neuropathy (resolved with exe rcise) Hyperlipidemia Dysuria 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
[2024-11-03] MEDS: linezolid 600 mg Tablet PO ×2 (07:06→17:55)
[2024-11-03] MEDS: FUROsemide 10 mg/mL SDV 4mL 40 MG IVP (07:09)
[2024-11-03] MEDS: heparin 5,000 unit/mL INJ 1 mL 5000 UNIT SUBCUT ×2 (07:10→17:54)
--- NOTE | 2024-11-03 07:24 | P.PN_ITS ---
Subjective 2 Subjective: Patient was admitted overnight. Reports having some anxiety today. Nursing says she has had some anxiety attacks. Denies chest pain. Has had some shortness of breath. Medications: Reviewed: Yes Vitals/I&O/Wt Last Vital Signs Temp 98.4 F 11/03/24 02:06 Pulse 78 11/03/24 06:13 Resp 16 11/03/24 06:13 BP 145/50 11/03/24 06:13 Pulse Ox 98 11/03/24 06:13 O2 Del Method BiPAP 11/03/24 06:13 O2 Flow Rate 3 11/03/24 05:10 FiO2 40 11/03/24 05:05 11/02/24 11/03/24 11/03/24 22:59 06:59 14:59 Intake Total 0 / 0 Balance 0 / 0 Weight last 48 hrs Weight 150 lb Physical Exam 2 Narrative: General: Cooperative patient in no apparent distress. Alert and oriented x 3. HEENT: Normocephalic, Atraumatic. External ears normal. Nasal passages patent without drainage. MMM. Heart: RRR. Resp: LCTA. No respiratory distress, no use of accessory muscles. Nasal cannula in place on 3 L. Abd: Soft, non-tender. Non-distended. Extremities: Left toe wrapped with a bandage. Bandage is clean and dry. Skin: No rash or lesions on exposed areas. Data 11/03/24 06:10 11/03/24 06:10 Micro: Microbiology 11/03/24 02:24 Blood Culture - Preliminary Blood SPECIMEN COLLECTED 11/03/24 02:19 Blood Culture - Preliminary Blood SPECIMEN COLLECTED A&P Assessment and plan (1) Acute exacerbation of CHF (congestive heart failure): (2) Acute dyspnea: (3) Osteomyelitis of great toe of left foot: Complete antibiotics as prescribed at discharge (4) Diabetic foot ulcer associated with type 2 diabetes mellitus: (5) Bacteremia due to Staphylococcus: Plan 84-year-old female admitted for dyspnea after recent hospitalization. Continue inpatient monitoring. Patient was recently admitted for heart failure, hypoxic respiratory failure, and osteomyelitis of her left foot. She did undergo surgery during that stay. She was discharged on broad-spectrum antibiotics which include linezolid and ciprofloxacin. Will restart ciprofloxacin as this was not added to the regimen overnight. Patient had an elevated BNP to 10,000, but she does not clinically appear to be in acute heart failure. Lung exam is clear. She has no lower extremity edema. Vitals are currently stable. She has been having some anxiety which does worsen her symptoms. I will start her on some as needed Ativan. She is on 3 L of oxygen per nasal cannula. Prior to discharge she was at 5 L. Her sats are maintaining in the upper 90 percentile. Will continue to titrate off oxygen at this time. Her labs do show a microcytic anemia with her hemoglobin at 9.5. This is stable since discharge. Her creatinine is at 1.1 today, which is consistent with her baseline. Her sugars are elevated today to 373. We will continue with Accu-Cheks and sliding scale insulin regimen. A1c was 10.3. Will add her long-acting insulin. Continue to monitor I's and O's, will also check daily weights. Recheck a.m. labs. RAAT and oxygen protocol. Consult case management on Monday for SNF placement. Will continue home medications for other chronic illnesses. Code Status: Full IVF: None DVT PPx: heparin GI PPx: protonix ABx: Linezolid, Ciprofloxacin Diet: CC Discharge plan: Will assess for fpc placement. PDMP PDMP Reviewed: Not Reviewed Attestations 2 Medical Necessity Statement*: Will need continued hospitalization for treatment of osteomyelitis, respiratory distress, medication adjustments, and discharge planning. Coding Level of Care Code Acute Code for Chg Fwd Moderate MDM includes number and complexity of problems actively addressed during encounter, amount and/or complexity of data reviewed/ordered and described risk of complication, morbidity or mortality of management as documented Diagnoses Acute exacerbation of CHF (congestive heart failure) I50.9 Acute dyspnea R06.00 Osteomyelitis of great toe of left foot M86.9 Diabetic foot ulcer associated with type 2 diabetes mellitus E11.621; L97.509 Bacteremia due to Staphylococcus R78.81; B95.8
--- NOTE | 2024-11-03 07:34 | PC.PHAR ---
Pts family member states pt took her am meds 11/02/24 but did not get her evening medications.
[2024-11-03 07:57] LABS: Troponin 5 2HR 31.74 ng/L (0-10); Troponin 5 2HR Delta 1.74 ABS# (0-10)
--- NOTE | 2024-11-03 08:13 | PC.NURSE ---
Patient transferred to [facility] from ED via a bed at 0815. She is on 6L at 76% O2. Respiratory is here to put her back on BIPAP.
[2024-11-03] MEDS: spironolactone 25 mg Tablet PO (09:25)
[2024-11-03] MEDS: docusate sodium 100 mg Capsule PO ×2 (09:25→17:55)
[2024-11-03] MEDS: sacubitril/valsartan 24-26 mg Tablet 1 EACH PO ×2 (09:25→17:54)
[2024-11-03] MEDS: ranolazine (12HR) 500 mg Tablet 1000 MG PO ×2 (09:25→17:55)
[2024-11-03] MEDS: pantoprazole DR 40 mg Tablet PO (09:26)
--- NOTE | 2024-11-03 11:53 | PC.NURSE ---
Provider is updated that She is resting comfortably right now on the Bipap but she is very anxious. Could she have something PRN? anytime she moves or if she comes off the Bipap she gets anxious. Provider ordered ativan 0.5mg Q12HR PRN anxiety.
[2024-11-03 11:55] LABS: Troponin 5 6HR 30.68 ng/L (0-10); Troponin 5 6HR Delta 0.68 ng/L (0-12)
[2024-11-03 12:31] LABS: Glucose Point of Care 408 mg/dL (70-110)
[2024-11-03] MEDS: insulin lispro 100 unit/1 mL SUBCUT ×3 (12:37→21:49)
--- NOTE | 2024-11-03 13:29 | PC.NURSE ---
Provider asked to have gurrola placed.
[2024-11-03] MEDS: LORazepam 1 MG/0.5 ML injection 0.5 MG IVP (13:32)
--- NOTE | 2024-11-03 15:38 | PC.NURSE ---
Per , keep left foot elevated on pillow and leave dressing until November 06, 2024
[2024-11-03] MEDS: ciprofloxacin 500 mg Tablet PO ×2 (16:26→20:41)
[2024-11-03 17:38] LABS: Glucose Point of Care 265 mg/dL (70-110)
[2024-11-03 20:31] LABS: Glucose Point of Care 285 mg/dL (70-110)
[2024-11-03] MEDS: morphine 4 mg/mL SDV 1 mL 2 MG IVP (20:40)
[2024-11-03] MEDS: insulin glargine 100 units/1 mL 25 UNIT SUBCUT (21:49)
[2024-11-03] MEDS: TRAMadol 50 mg Tablet PO (22:49)
[2024-11-04] VITALS (9 sets, daily range): BP systolic 110–138; BP diastolic 55–73; PULSE 54–69; RESP 16–20; TEMP 36.3–37.1; O2SAT 94–99
[2024-11-04] MEDS: morphine 4 mg/mL SDV 1 mL 2 MG IVP ×2 (02:17→08:14)
[2024-11-04 05:36] LABS: Basophils % 0.2 %; Eosinophils # 0.3 10^3/uL (0.0-0.8); Eosinophils % 3.7 %; Hematocrit 31.6 % (36-47); Lymphocytes # 1.2 10^3/uL (0.8-4.8); Lymphocytes % 13.9 %; Mean Corpuscular HGB Conc 30.4 g/dL (30-55); Mean Corpuscular Hemoglobin 25.3 pg (27-33); Mean Corpuscular Volume 83.2 fl (85-98); Mean Platelet Volume 11.7 fL (7.4-10.4); Monocytes # 0.9 10^3/uL (0.2-0.9); Monocytes % 10.3 %; Neutrophils # 6.06 10^3/uL (1.8-7.7); Neutrophils % 71.4 %; Nucleated Red Blood Cells % 0 %; Platelet Count 368 10^3/cmm (157-399); Red Cell Distribution Width 16.3 % (12.1-15.1); White Blood Count 8.48 10^3/uL (3.29-11.43)
[2024-11-04 05:53] LABS: Alanine Aminotransferase 7 U/L (0-33); Alkaline Phosphatase 63 U/L (35-105); Anion Gap 14.4 (5-19); Aspartate Amino Transferase 10 U/L (0-32); Blood Urea Nitrogen 16 mg/dL (8-23); C Reactive Protein 42.9 mg/L (0.0-4.9); Calcium 8.5 mg/dL (8.5-10.5); Carbon Dioxide 30 mmol/L (22-29); Chloride 100 mmol/L (98-107); Creatinine Clr Calc Pharmacy 52.7996; Globulin 3.2 g/dL (1.3-4.6); Glucose 84 mg/dL (65-115); Osmolality Calculated 292 mOsm/kg (285-295); Potassium 3.4 mmol/L (3.5-5.1); Sodium 141 mmol/L (136-145); Total Bilirubin 0.2 mg/dL (0.15-1.2); Total Protein 6.2 g/dL (6.6-8.7)
[2024-11-04 06:29] LABS: Glucose Point of Care 100 mg/dL (70-110)
[2024-11-04] MEDS: linezolid 600 mg Tablet PO ×2 (06:38→17:23)
[2024-11-04] MEDS: TRAMadol 50 mg Tablet PO ×2 (06:38→17:44)
[2024-11-04] MEDS: heparin 5,000 unit/mL INJ 1 mL 5000 UNIT SUBCUT ×2 (06:39→17:23)
[2024-11-04] MEDS: pantoprazole DR 40 mg Tablet PO (08:13)
[2024-11-04] MEDS: ranolazine (12HR) 500 mg Tablet 1000 MG PO ×2 (08:13→17:23)
[2024-11-04] MEDS: spironolactone 25 mg Tablet PO (08:13)
[2024-11-04] MEDS: sacubitril/valsartan 24-26 mg Tablet 1 EACH PO ×2 (08:13→17:23)
[2024-11-04] MEDS: ciprofloxacin 500 mg Tablet PO ×2 (08:13→22:20)
[2024-11-04] MEDS: amiodarone 200 mg Tablet PO (09:26)
[2024-11-04] MEDS: aspirin 81 mg EC Tablet PO (09:26)
--- NOTE | 2024-11-04 10:53 | P.CONIM_ITS ---
<Statement entered by Boaz Jaramillo M.D - 11/11/24 13:47> Patient was evaluated and cared for in conjunction with an advanced practice practitioner.? I personally examined the patient and reviewed the chart and all pertinent data including imaging, telemetry, and laboratory results.? I discussed the patient in detail with the advanced practice practitioner.? Please see? their note for complete consult note, testing results and agreed upon plan of care for the patient. Patient's blood pressure is better controlled. GENERAL: Patient is alert, awake and oriented x3. HEART: Regular S1 and S2 LUNGS: Clear to auscultate bilaterally. CENTRAL NERVOUS SYSTEM: Grossly nonfocal. EXTREMITIES: Lower extremities without edema bilaterally. Providers/Reason For Consult 2 Consulting Physician/Specialty*: Dr. Jaramillo Reason for Consult*: CHF exacerbation Requesting Physician: Dr. Campos Attending Physician: Christiano Richard MD Primary Care Provider: Antonio Delgado MD History of Present Illness History of Present Illness Sally Henderson is a 84 year old female with a history of CHF, CAD, osteomyelitis of the left great toe, status post left great toe amputation, history of staph bacteremia, afib, came into the emergency room with severe shortness of breath and fluid overload. She denies any chest pain. She has a history of multiple cath procedures most recently was done in December 2023. She has a history of CABG and most recent [employer] procedure showed severe multivessel [place] coronary artery disease [place] was patent and she had a subtotally occluded [place] left circumflex. Medical therapy was decided upon at that time. Echo yesterday showed EF of 45% with no significant change from August 2024. On exam she states she is doing better. Trop was 30-31.74-30.68[place] [address]. Creatinine stable at 1. Oxygen saturation 96% on 3 L. Review of Systems 2 Narrative: Consitutional: denies fever, chills Card: Denies chest pain, palpitations, irregular heart rhythm, edema, syncope Resp: Denies shortness of breath, denies hemoptysis, denies cough GI: denies abdominal pain, denies nausea or voimting, denies blood in stool : denies blood in urine, denies dysuria Musc: Denies extremity pain, denies limited range of motion or recent injury Skin: Reports wound s/p amputation of the left great toe Medications/Allergies Home Medications ?Medication ?Instructions ?Recorded ?Confirmed ?Last Taken ?Type clopidogrel 75 mg tablet 75 mg PO BEDTIME #90 tabs 11/03/24 11/01/24 Rx nitroglycerin 0.4 mg sublingual 0.4 mg buccal PRN PRN Chest Pain 04/10/24 11/03/24 Unknown History tablet furosemide 40 mg tablet 40 mg PO BID@0800,1400 30 da ys #60 05/28/24 11/03/24 11/02/24 Rx tabs isosorbide mononitrate 60 mg 60 mg PO DAILY 06/07/24 0 11/03/24 11/02/24 History tablet,extended release 24 hr insulin aspart U-100 100 unit/mL See Rx Instructions . Route 06/11/24 11/03/24 11/02/24 Rx (3 mL) subcutaneous pen (Novolog .COMPLEX #15 mL FlexPen U-100 Insulin aspart) amiodarone 200 mg tablet 200 mg PO DAILY 07/18/2411/02/24 History atorvastatin 40 mg tablet 40 mg PO QPM 07/18/2411/01/24 History tramadol 50 mg tablet 50 mg PO Q6H PRN Pain 11/03/24 10/28/24 History budesonide-formoterol HFA 80 1 inh inhalation BID #10. 2 grams 07/23/24 11/03/24 11/02/24 Rx mcg-4.5 mcg/actuation aerosol inhaler (Symbicort) nebulizer and compressor (SIL685 #1 ea 07/23/24 Unknown Rx Nebulizer) sacubitril 24 mg-valsartan 26 mg 1 tab PO BID #60 tabs 07/25/24 11/03/24 11/02/24 Rx tablet (Entresto) Held on 11/02/24. Instructions: see cardiology aspirin 81 mg tablet,delayed 81 mg PO DAILY #30 tabs 0 08/07/24 11/03/24 11/02/24 Rx release metoprolol tartrate 25 mg tablet 12.5 mg (1/2 x 25 mg) PO 08/07/24 11/03/24 11/02/24 Rx Held on 11/02/24. BID@0900,2100 #60 tabs Instructions: see cardiology neomycin-bacitracn Zn-polymyx 3.5 1 applic topical BID #30 grams 08/07/24 11/03/24 11/01/24 Rx mg-400 unit-5,000 unit/gram top oint (Triple Antibiotic) potassium chloride 20 mEq 10 meq (1/2 x 20 mEq) PO GLENNA LY #30 08/07/24 11/03/24 11/02/24 Rx tablet,extended release(part/cryst) tabs losartan 25 mg tablet 25 mg PO DAILY #30 tabs /12/0611/03/24 11/02/24 Rx albuterol sulfate 2.5 mg/3 mL 2.5 mg continuous nebuli zation TID 10/29/24 11/03/24 11/02/24 History (0.083 %) solution for nebulization PRN Shortness Of B reath insulin degludec 200 unit/mL (3 27 unit SUBCUT DAILY 0 10/29/24 11/03/24 11/02/24 History mL) subcutaneous pen (Tresiba FlexTouch U-200 insulin) Held on 11/02/24. Instructions: see pcp ciprofloxacin HCl 500 mg tablet 500 mg PO BID 14 days #28 tabs 11/01/24 11/03/24 11/02/24 Rx linezolid 600 mg tablet 600 mg PO BID 14 days #28 ta bs 11/01/24 11/03/24 11/02/24 Rx ranolazine 1,000 mg 1,000 mg PO BID 11/03/2411/02/24 History tablet,extended release,12 hr Allergies Allergy/AdvReac Type Severity Reaction Status Date / Time No Known Allergies Allergy Verified 09/18/24 19:54 Current Medications Generic Name Dose Route Start Last Admin Trade Name Freq PRN Reason Stop Dose Admin Albuterol/Ipratropium 3 ml 11/03/24 05:39 11/03/24 15:29 Ipratropium-Albuterol 3 Ml Neb INHALATION 3 ml Q6H PRN Administration SHORTNESS OF BREATH Amiodarone HCl 200 mg 11/04/24 09:00 11/04/24 09:26 Amiodarone 200 Mg Tablet PO 200 mg DAILY LI Administration Aspirin 81 mg 11/04/24 09:00 11/04/24 09:26 Aspirin 81 Mg Ec Tablet PO 81 mg DAILY LI Administration Ciprofloxacin HCl 500 mg 11/03/24 21:00 11/04/24 08:13 Ciprofloxacin 500 Mg Tablet PO 500 mg BID@0900,2100 [facility] Administration Protocol Docusate Sodium 100 mg 11/03/24 09:00 11/04/24 08:57 Docusate Sodium 100 Mg Capsule PO Not Given BID LI Heparin Sodium (Porcine) 5,000 unit 11/03/24 05:45 11/04/24 06:39 Heparin 5,000 Unit/Ml Inj 1 Ml SUBCUT 5,000 unit Q12H LI Administration Insulin Glargine 25 unit 11/03/24 21:00 11/03/24 21:49 Insulin Glargine 100 Units/1 Ml SUBCUT 25 unit BEDTIME LI Administration Insulin Human Lispro 0 unit 11/03/24 12:00 11/04/24 08:01 Insulin Lispro 100 Unit/1 Ml SUBCUT Not Given WM&BEDTIME LI Protocol Linezolid 600 mg 11/03/24 06:30 11/04/24 06:38 Linezolid 600 Mg Tablet PO 600 mg Q12H [facility] Administration Protocol Morphine Sulfate 2 mg 11/03/24 05:34 11/04/24 08:14 Morphine 4 Mg/Ml Sdv 1 Ml IVP 2 mg Q4H PRN Administration SEVERE PAIN Pantoprazole Sodium 40 mg 11/03/24 09:00 11/04/24 08:[address] 40 Mg Tablet PO 40 mg DAILY [facility] Administration Ranolazine 1,000 mg 11/03/24 09:00 11/04/24 08:13 Ranolazine (12hr) 500 Mg Tablet PO 1,000 mg BID LI Administration Sacubitril/Valsartan 1 each 11/03/24 09:00 11/04/24 08:13 Sacubitril/Valsartan 24-26 Mg Tablet PO 1 each BID [facility] Administration Senna 17.2 mg 11/03/24 21:00 11/03/24 20:47 Sennosides 8.6 Mg Tablet PO Not Given BEDTIME LI Spironolactone 25 mg 11/03/24 09:00 11/04/24 08:13 Spironolactone 25 Mg Tablet PO 25 mg DAILY LI Administration Tramadol HCl 50 mg 11/03/24 06:25 11/04/24 06:38 Tramadol 50 Mg Tablet PO 50 mg Q6H PRN Administration MODERATE PAIN PFSH Acute 2 PFSH: Medical History Dyslipidemia Essential (primary) hypertension COPD (chronic obstructive pulmonary disease) Chronic hypoxic respiratory failure, on home oxygen therapy Diabetes mellitus, type II, insulin dependent CAD (coronary artery disease) Paroxysmal A-fib CKD (chronic kidney disease) CHF (congestive heart failure) Respiratory arrest has required intubation Non-STEMI (non-ST elevated myocardial infarction) Contrast-induced nephropathy Surgical History Hx of hysterectomy Hx of CABG Family History Unknown No problems noted. Social History Smoking and tobacco/nicotine status: former use of tobacco/nicotine Alcohol intake: never Substance/Drug Use: never Vitals/I&O/Wt Last Vital Signs Temp 97.8 F 11/04/24 07:48 Pulse 69 11/04/24 10:00 Resp 18 11/04/24 10:00 BP 121/60 11/04/24 07:48 Pulse Ox 96 11/04/24 10:00 O2 Del Method Nasal Cannula 11/04/24 10:00 O2 Flow Rate 3 11/04/24 10:00 FiO2 30 11/03/24 15:33 11/03/24 11/04/24 11/04/24 22:59 06:59 14:59 Intake Total 240 / 360 120 / 120 Output Total 625 / 1025 100 / 1125 Balance -385 / -665 -100 / -765 120 / 120 Weight last 48 hrs Weight 170 lb Weight 170 lb Weight 150 lb Physical Exam 2 Narrative: General: No apparent distress, healthy appearing, well nourished HENMT: normoceophalic Muskuloskeletal: Full ROM Respiratory: Normal respiratory effort, bilateral posterior lower lobes course crackles present, no use of accessory muscles Cardio: No JVD, regular rate, regular rhythm, S1 S2 normal, no murmurs, peripheral pulses 2+ radial palpated bilaterally GI: Normal to inspection, nondistended Extremities: Full ROM, normal, normal capillary refill, no cyanosis, trace edema bilateral lower extremities Neuro: Alert and oriented x4 Psych: Affect normal, mental status grossly normal Skin: Left lower leg with bandage in place Urinary Catheter Management: Huff: Cath Placed During This Visit: yes Reason for Continuing Indwelling Catheter: Accurate Measurement of Urinary Output in Critically Ill Patients Urinary Catheter Date of Insertion: 11/03/24 Urinary Catheter Time of Insertion: 13:00 Data 11/04/24 04:46 11/04/24 04:46 Micro: Microbiology 11/03/24 02:24 Blood Culture - Preliminary Blood NEGATIVE TO DATE 11/03/24 02:19 Blood Culture - Preliminary Blood NEGATIVE TO DATE A&P Assessment and plan (1) Congestive heart failure: (2) Paroxysmal A-fib: (3) Dyslipidemia: (4) CAD (coronary artery disease): (5) Essential (primary) hypertension: Plan Patient's symptoms are improved, however still shows signs of fluid overload. Recommend continuing to diurese with with spironolactone 25 mg daily, continuing lasix 40 q 12, monitor strict I&O as well as creatinine. Continue amiodarone 200 mg daily for history of afib. Patient is getting subq heparin at this time.. Continue Entresto for heart failure. Thank you, Dr. Campos, for allowing us to care for this very pleasant 84 year old female. PDMP PDMP Reviewed: Not Reviewed Consult Attestations 2 Medical Necessity Statement: Deferred to primary Coding Level of Care Code Acute Code for Chg Fwd Diagnoses Acute on chronic systolic congestive heart failure I50.23 Heart failure type: systolic Heart failure chronicity: acute on chronic Paroxysmal A-fib I48.0 Dyslipidemia E78.5 Coronary artery disease involving [place] coronary artery of [place] heart with other form of angina pectoris I25.118 Associated angina: with other forms of angina Coronary Disease-Associated Artery/Lesion type: [place] artery [place] vs. transplanted heart: [place] heart Essential (primary) hypertension I10
[2024-11-04 11:28] LABS: Glucose Point of Care 104 mg/dL (70-110)
--- NOTE | 2024-11-04 13:56 | P.PN_ITS ---
Subjective 2 Subjective: Hospital course, labs appreciated. Patient sitting comfortably in bed. States she is feeling a lot better. Denies any further difficulty in breathing. States she cannot go home by herself as she believes she needs further rehab. Denies any nausea, vomiting, headache. Currently on 2 L of oxygen supplementation. Appreciate vitals. Medications: Reviewed: Yes Vitals/I&O/Wt Last Vital Signs Temp 97.3 F L 11/04/24 12:00 Pulse 69 11/04/24 12:00 Resp 20 H 11/04/24 12:00 BP 138/73 11/04/24 12:00 Pulse Ox 96 11/04/24 12:00 O2 Del Method Nasal Cannula 11/04/24 12:00 O2 Flow Rate 2 11/04/24 12:00 FiO2 30 11/03/24 15:33 11/03/24 11/04/24 11/04/24 22:59 06:59 14:59 Intake Total 240 / 360 480 / 480 Output Total 625 / 1025 100 / 1125 Balance -385 / -665 -100 / -765 480 / 480 Weight last 48 hrs Weight 77.111 kg Weight 77.111 kg Weight 68.039 kg Physical Exam 2 Narrative: General: Cooperative patient in no apparent distress. Alert and oriented x 3. HEENT: Normocephalic, Atraumatic. External ears normal. Nasal passages patent without drainage. MMM. Heart: RRR. Resp: LCTA. No respiratory distress, no use of accessory muscles. Nasal cannula in place on 3 L. Abd: Soft, non-tender. Non-distended. Extremities: Left toe wrapped with a bandage. Bandage is clean and dry. Skin: No rash or lesions on exposed areas. Urinary Catheter Management: Huff: Cath Placed During This Visit: yes Reason for Continuing Indwelling Catheter: Accurate Measurement of Urinary Output in Critically Ill Patients Urinary Catheter Date of Insertion: 11/03/24 Urinary Catheter Time of Insertion: 13:00 Data 11/04/24 04:46 11/04/24 04:46 Micro: Microbiology 11/03/24 02:24 Blood Culture - Preliminary Blood NEGATIVE TO DATE 11/03/24 02:19 Blood Culture - Preliminary Blood NEGATIVE TO DATE A&P Assessment and plan (1) Acute exacerbation of CHF (congestive heart failure): (2) Acute dyspnea: (3) Osteomyelitis of great toe of left foot: Complete antibiotics as prescribed at discharge (4) Diabetic foot ulcer associated with type 2 diabetes mellitus: (5) Bacteremia due to Staphylococcus: Plan 84-year-old female admitted for dyspnea after recent hospitalization. Continue inpatient monitoring. Patient was recently admitted for heart failure, hypoxic respiratory failure, and osteomyelitis of her left foot. She did undergo surgery during that stay. She was discharged on broad-spectrum antibiotics which include linezolid and ciprofloxacin. Will restart ciprofloxacin as this was not added to the regimen overnight. Patient had an elevated BNP to 10,000, but she does not clinically appear to be in acute heart failure. Lung exam is clear. She has no lower extremity edema. Vitals are currently stable. She has been having some anxiety which does worsen her symptoms. I will start her on some as needed Ativan. She is on 3 L of oxygen per nasal cannula. Prior to discharge she was at 5 L. Her sats are maintaining in the upper 90 percentile. Will continue to titrate off oxygen at this time. Her labs do show a microcytic anemia with her hemoglobin at 9.5. This is stable since discharge. Her creatinine is at 1.1 today, which is consistent with her baseline. Her sugars are elevated today to 373. We will continue with Accu-Cheks and sliding scale insulin regimen. A1c was 10.3. Will add her long-acting insulin. Continue to monitor I's and O's, will also check daily weights. Recheck a.m. labs. RAAT and oxygen protocol. Consult case management on Monday for SNF placement. Will continue home medications for other chronic illnesses. Plan for the day: Patient currently euvolemic. Currently on 2 L of oxygen supplementation. Saturating 96%. Last echocardiogram from 11/03 showed EF of 45% with dilated LV cavity, hypokinesia of inferior, inferoseptal inferior lateral parkinson, dilated LA with MR. Appreciate last cardiac angiogram from 01/05 when she was found to have nonrevascularizable CAD and was advised medical management. Continue with Lasix as needed. At home takes 40 mg twice daily. Can restart at 40 mg daily at home with as needed dose for body weight increase of 5 pounds on discharge. Restart home dose of DAPT, statin. Heart rate stable. Restart home dose of amiodarone 200 mg oral daily. Metoprolol 12.5 mg twice daily currently on hold because of bradycardia. Continue with Entresto at current dose. Goal blood pressure less than 140/90 mmHg. Stop Ativan. Add Xanax 0.5 twice daily as needed. Continue with linezolid and ciprofloxacin for overall 14 days as per prior discharge. Blood sugar stable for now. Continue with Lantus 25 units daily, sliding scale. Replace potassium 40 mg oral. Code Status: Full IVF: None DVT PPx: heparin GI PPx: protonix ABx: Linezolid, Ciprofloxacin Diet: CC Discharge plan: Discharge to SNF. Will need authorization as per case management. PDMP PDMP Reviewed: Not Reviewed Attestations 2 Medical Necessity Statement*: Requires further hospitalization for management of congestive heart failure requiring diuresis, recent osteomyelitis and bacteremia oral antibiotics while safe discharge planning is done. Diagnoses Acute exacerbation of CHF (congestive heart failure) I50.9 Acute dyspnea R06.00 Osteomyelitis of great toe of left foot M86.9 Diabetic foot ulcer associated with type 2 diabetes mellitus E11.621; L97.509 Bacteremia due to Staphylococcus R78.81; B95.8
[2024-11-04] MEDS: potassium chloride ER 20 mEq Tablet 40 MEQ PO (15:18)
[2024-11-04] MEDS: insulin lispro 100 unit/1 mL SUBCUT ×2 (17:22→22:20)
[2024-11-04] MEDS: atorvastatin 40 mg Tablet PO (17:23)
[2024-11-04 17:24] LABS: Glucose Point of Care 181 mg/dL (70-110)
--- NOTE | 2024-11-04 18:30 | PC.NURSE ---
Patient is refusing to have her gurrola out today.
[2024-11-04 22:14] LABS: Glucose Point of Care 283 mg/dL (70-110)
[2024-11-04] MEDS: ALPRAZolam 0.5 mg Tablet PO (22:19)
[2024-11-04] MEDS: clopidogrel 75 mg Tablet PO (22:19)
[2024-11-04] MEDS: insulin glargine 100 units/1 mL 25 UNIT SUBCUT (22:20)
[2024-11-05] VITALS (8 sets, daily range): BP systolic 108–139; BP diastolic 47–81; PULSE 52–69; RESP 14–23; TEMP 36.4–36.9; O2SAT 91–99
[2024-11-05] MEDS: TRAMadol 50 mg Tablet PO ×2 (02:47→16:47)
[2024-11-05 02:49] LABS: Basophils % 0.3 %; Eosinophils # 0.4 10^3/uL (0.0-0.8); Eosinophils % 5.1 %; Hematocrit 32.7 % (36-47); Lymphocytes # 1.1 10^3/uL (0.8-4.8); Lymphocytes % 14.1 %; Mean Corpuscular HGB Conc 30.3 g/dL (30-55); Mean Corpuscular Hemoglobin 25.4 pg (27-33); Mean Corpuscular Volume 83.8 fl (85-98); Monocytes # 0.9 10^3/uL (0.2-0.9); Monocytes % 11.4 %; Neutrophils # 5.37 10^3/uL (1.8-7.7); Neutrophils % 68.7 %; Nucleated Red Blood Cells % 0 %; Platelet Count 366 10^3/cmm (157-399); Red Cell Distribution Width 16.3 % (12.1-15.1); White Blood Count 7.81 10^3/uL (3.29-11.43)
[2024-11-05 03:24] LABS: Alanine Aminotransferase 8 U/L (0-33); Albumin Level 2.7 g/dL (3.5-5.2); Alkaline Phosphatase 64 U/L (35-105); Anion Gap 12.2 (5-19); Aspartate Amino Transferase 11 U/L (0-32); Blood Urea Nitrogen 17 mg/dL (8-23); Calcium 8.5 mg/dL (8.5-10.5); Carbon Dioxide 31 mmol/L (22-29); Chloride 101 mmol/L (98-107); Creatinine Clr Calc Pharmacy 52.7996; Globulin 3.2 g/dL (1.3-4.6); Glucose 160 mg/dL (65-115); Osmolality Calculated 295 mOsm/kg (285-295); Potassium 4.2 mmol/L (3.5-5.1); Sodium 140 mmol/L (136-145); Total Bilirubin 0.2 mg/dL (0.15-1.2); Total Protein 5.9 g/dL (6.6-8.7)
--- NOTE | 2024-11-05 04:04 | PC.NURSE ---
This nurse was notified by [employer] that patient is having only 50 ml of urine and it is tea colored. Discussed with Dr. Lee regarding kidney function and recent notes. Received orders for 500 ml or bolus.
[2024-11-05] MEDS: sodium chloride 0.9% 500 ML IV (05:43)
[2024-11-05] MEDS: linezolid 600 mg Tablet PO ×2 (05:44→17:38)
[2024-11-05] MEDS: heparin 5,000 unit/mL INJ 1 mL 5000 UNIT SUBCUT ×2 (05:44→17:37)
[2024-11-05 06:26] LABS: Glucose Point of Care 220 mg/dL (70-110)
[2024-11-05] MEDS: aspirin 81 mg EC Tablet PO (08:57)
[2024-11-05] MEDS: ciprofloxacin 500 mg Tablet PO ×2 (08:57→22:03)
[2024-11-05] MEDS: insulin lispro 100 unit/1 mL SUBCUT ×4 (08:57→22:04)
[2024-11-05] MEDS: docusate sodium 100 mg Capsule PO ×2 (08:58→17:38)
[2024-11-05] MEDS: pantoprazole DR 40 mg Tablet PO (08:58)
[2024-11-05] MEDS: sacubitril/valsartan 24-26 mg Tablet 1 EACH PO ×2 (08:58→17:37)
[2024-11-05] MEDS: ranolazine (12HR) 500 mg Tablet 1000 MG PO ×2 (08:58→17:37)
[2024-11-05] MEDS: spironolactone 25 mg Tablet PO (08:58)
[2024-11-05] MEDS: amiodarone 200 mg Tablet 100 MG PO (09:10)
--- NOTE | 2024-11-05 09:59 | P.PN_ITS ---
<Statement entered by Boaz Jaramillo M.D - 11/11/24 14:20> Patient was cared for in conjunction with an advanced practice practitioner.? I reviewed the chart and all pertinent data including imaging, telemetry, and laboratory results.? I discussed the patient in detail with the advanced practice practitioner.? Please see?their note for progress note, testing results and agreed upon plan of care for the patient. Subjective 2 Subjective: Patient doing well overall. Denies chest pain or shortness of breath. Vitals/I&O/Wt Last Vital Signs Temp 97.9 F 11/05/24 07:26 Pulse 56 L 11/05/24 07:39 Resp 18 11/05/24 07:39 BP 139/63 11/05/24 07:26 Pulse Ox 97 11/05/24 07:39 O2 Del Method Nasal Cannula 11/05/24 07:39 O2 Flow Rate 2 11/05/24 07:39 FiO2 30 11/03/24 15:33 11/04/24 11/05/24 11/05/24 22:59 06:59 14:59 Intake Total 360 / 840 Output Total 200 / 200 50 / 250 Balance 160 / 640 -50 / 590 Weight last 48 hrs Weight 170 lb Physical Exam 2 Narrative: General: No apparent distress, healthy appearing, well nourished HENMT: normoceophalic Muskuloskeletal: Full ROM Respiratory: Normal respiratory effort, bilateral posterior lower lobes course crackles present, no use of accessory muscles Cardio: No JVD, regular rate, regular rhythm, S1 S2 normal, no murmurs, peripheral pulses 2+ radial palpated bilaterally GI: Normal to inspection, nondistended Extremities: Full ROM, normal, normal capillary refill, no cyanosis, trace edema bilateral lower extremities Neuro: Alert and oriented x4 Psych: Affect normal, mental status grossly normal Skin: Left lower leg with bandage in place Urinary Catheter Management: Huff: Cath Placed During This Visit: yes Reason for Continuing Indwelling Catheter: Accurate Measurement of Urinary Output in Critically Ill Patients Urinary Catheter Date of Insertion: 11/03/24 Urinary Catheter Time of Insertion: 13:00 Data 11/05/24 02:32 11/05/24 02:32 A&P Assessment and plan (1) Congestive heart failure: (2) Paroxysmal A-fib: (3) Dyslipidemia: (4) CAD (coronary artery disease): (5) Essential (primary) hypertension: Plan Patient's symptoms are improved, however still has some crackles in posterior lower lobes bilaterally. Recommend continuing to diurese with with spironolactone 25 mg daily, light diuresis with lasix, monitor strict I&O as well as creatinine. Continue amiodarone for history of afib. Patient is getting subq heparin at this time. Continue Entresto for heart failure. PDMP PDMP Reviewed: Not Reviewed Attestations 2 Medical Necessity Statement*: Deferred to primary Coding Level of Care Code Acute Code for Chg Fwd Diagnoses Acute on chronic systolic congestive heart failure I50.23 Heart failure chronicity: acute on chronic Heart failure type: systolic Paroxysmal A-fib I48.0 Dyslipidemia E78.5 Coronary artery disease involving [place] coronary artery of [place] heart with other form of angina pectoris I25.118 Associated angina: with other forms of angina Coronary Disease-Associated Artery/Lesion type: [place] artery [place] vs. transplanted heart: [place] heart Essential (primary) hypertension I10
[2024-11-05 11:30] LABS: Glucose Point of Care 252 mg/dL (70-110)
[2024-11-05] MEDS: FUROsemide 40 mg Tablet PO ×2 (11:36→16:21)
--- NOTE | 2024-11-05 11:43 | P.PN_ITS ---
Subjective 2 Subjective: No acute events overnight. Patient has remained hemodynamically stable and afebrile. States she is feeling better. Remains on baseline oxygen supplementation. Medications: Reviewed: Yes Vitals/I&O/Wt Last Vital Signs Temp 97.7 F 11/05/24 11:04 Pulse 67 11/05/24 11:04 Resp 23 H 11/05/24 11:04 BP 120/60 11/05/24 11:04 Pulse Ox 93 11/05/24 11:04 O2 Del Method Nasal Cannula 11/05/24 11:04 O2 Flow Rate 2 11/05/24 07:39 FiO2 30 11/03/24 15:33 11/04/24 11/05/24 11/05/24 22:59 06:59 14:59 Intake Total 360 / 840 360 / 360 Output Total 200 / 200 50 / 250 Balance 160 / 640 -50 / 590 360 / 360 Weight last 48 hrs Weight 77.111 kg Physical Exam 2 Narrative: General: Cooperative patient in no apparent distress. Alert and oriented x 3. HEENT: Normocephalic, Atraumatic. External ears normal. Nasal passages patent without drainage. MMM. Heart: RRR. Resp: LCTA. No respiratory distress, no use of accessory muscles. Nasal cannula in place on 3 L. Abd: Soft, non-tender. Non-distended. Extremities: Left toe wrapped with a bandage. Bandage is clean and dry. Skin: No rash or lesions on exposed areas. Urinary Catheter Management: Huff: Cath Placed During This Visit: yes Reason for Continuing Indwelling Catheter: Accurate Measurement of Urinary Output in Critically Ill Patients Urinary Catheter Date of Insertion: 11/03/24 Urinary Catheter Time of Insertion: 13:00 Data 11/05/24 02:32 11/05/24 02:32 A&P Assessment and plan (1) Acute exacerbation of CHF (congestive heart failure): (2) Acute dyspnea: (3) Osteomyelitis of great toe of left foot: Complete antibiotics as prescribed at discharge (4) Diabetic foot ulcer associated with type 2 diabetes mellitus: (5) Bacteremia due to Staphylococcus: Plan 84-year-old female admitted for dyspnea after recent hospitalization. Continue inpatient monitoring. Patient was recently admitted for heart failure, hypoxic respiratory failure, and osteomyelitis of her left foot. She did undergo surgery during that stay. She was discharged on broad-spectrum antibiotics which include linezolid and ciprofloxacin. Will restart ciprofloxacin as this was not added to the regimen overnight. Patient had an elevated BNP to 10,000, but she does not clinically appear to be in acute heart failure. Lung exam is clear. She has no lower extremity edema. Vitals are currently stable. She has been having some anxiety which does worsen her symptoms. I will start her on some as needed Ativan. She is on 3 L of oxygen per nasal cannula. Prior to discharge she was at 5 L. Her sats are maintaining in the upper 90 percentile. Will continue to titrate off oxygen at this time. Her labs do show a microcytic anemia with her hemoglobin at 9.5. This is stable since discharge. Her creatinine is at 1.1 today, which is consistent with her baseline. Her sugars are elevated today to 373. We will continue with Accu-Cheks and sliding scale insulin regimen. A1c was 10.3. Will add her long-acting insulin. Continue to monitor I's and O's, will also check daily weights. Recheck a.m. labs. RAAT and oxygen protocol. Consult case management on Monday for SNF placement. Will continue home medications for other chronic illnesses. Plan for the day: Patient currently euvolemic. Currently on 2 L of oxygen supplementation. Saturating 96%. Last echocardiogram from 11/03 showed EF of 45% with dilated LV cavity, hypokinesia of inferior, inferoseptal inferior lateral parkinson, dilated LA with MR. Appreciate last cardiac angiogram from 01/05 when she was found to have nonrevascularizable CAD and was advised medical management. Continue with Lasix as needed. At home takes 40 mg twice daily. Restart home dose of Lasix today. Fluid restriction to 1500 cc. Restart home dose of DAPT, statin. Heart rate stable. Having occasional episodes of bradycardia. Continue to hold off on metoprolol. Change amiodarone to 100 mg oral daily. Out of bed to chair. Continue with Entresto at current dose. Goal blood pressure less than 140/90 mmHg. Xanax 0.5 twice daily as needed. Continue with linezolid and ciprofloxacin for overall 14 days as per prior discharge. Blood sugar stable for now. Fasting blood sugar elevated. Increase nightly Lantus to 30 units daily. sliding scale. Code Status: Full IVF: None DVT PPx: heparin GI PPx: protonix ABx: Linezolid, Ciprofloxacin Diet: CC Discharge plan: Discharge to SNF. Awaiting authorization as per case management. PDMP PDMP Reviewed: Not Reviewed Attestations 2 Medical Necessity Statement*: Requires further hospitalization while safe discharge planning is sought in a patient admitted for CHF, recent MRSA bacteremia Diagnoses Acute exacerbation of CHF (congestive heart failure) I50.9 Acute dyspnea R06.00 Osteomyelitis of great toe of left foot M86.9 Diabetic foot ulcer associated with type 2 diabetes mellitus E11.621; L97.509 Bacteremia due to Staphylococcus R78.81; B95.8
[2024-11-05 17:00] LABS: Glucose Point of Care 229 mg/dL (70-110)
[2024-11-05] MEDS: atorvastatin 40 mg Tablet PO (17:37)
[2024-11-05 20:31] LABS: Glucose Point of Care 239 mg/dL (70-110)
[2024-11-05] MEDS: clopidogrel 75 mg Tablet PO (22:03)
[2024-11-05] MEDS: insulin glargine 100 units/1 mL 30 UNIT SUBCUT (22:04)
[2024-11-05] MEDS: sennosides 8.6 mg Tablet 17.2 MG PO (22:56)
[2024-11-06] MEDS: TRAMadol 50 mg Tablet PO ×2 (01:07→07:48)
[2024-11-06 03:36] VITALS: BP 125/59; PULSE 60; RESP 16; TEMP 36.4; O2SAT 95
[2024-11-06] MEDS: linezolid 600 mg Tablet PO (06:11)
[2024-11-06] MEDS: heparin 5,000 unit/mL INJ 1 mL 5000 UNIT SUBCUT (06:11)
[2024-11-06 06:23] LABS: Glucose Point of Care 193 mg/dL (70-110)
[2024-11-06] MEDS: aspirin 81 mg EC Tablet PO (07:41)
[2024-11-06] MEDS: ALPRAZolam 0.5 mg Tablet PO (07:41)
[2024-11-06] MEDS: insulin lispro 100 unit/1 mL SUBCUT (07:41)
[2024-11-06] MEDS: sacubitril/valsartan 24-26 mg Tablet 1 EACH PO (07:41)
[2024-11-06] MEDS: pantoprazole DR 40 mg Tablet PO (07:41)
[2024-11-06] MEDS: ranolazine (12HR) 500 mg Tablet 1000 MG PO (07:41)
[2024-11-06] MEDS: FUROsemide 40 mg Tablet PO (07:41)
[2024-11-06] MEDS: amiodarone 200 mg Tablet 100 MG PO (07:42)
[2024-11-06] MEDS: ciprofloxacin 500 mg Tablet PO (07:42)
[2024-11-06] MEDS: docusate sodium 100 mg Capsule PO (07:42)
[2024-11-06] MEDS: spironolactone 25 mg Tablet PO (07:42)
[2024-11-06 07:59] VITALS: PULSE 64; RESP 18; O2SAT 92
[2024-11-06 08:00] VITALS: BP 120/65; PULSE 65; RESP 22; TEMP 36.6; O2SAT 94
[2024-11-06] MEDS: valACYclovir 1,000 mg Tablet 1000 MG PO (09:18)
--- NOTE | 2024-11-06 09:28 | P.PN_ITS ---
<Statement entered by Boaz Jaramillo M.D - 11/11/24 14:23> Patient was cared for in conjunction with an advanced practice practitioner.? I reviewed the chart and all pertinent data including imaging, telemetry, and laboratory results.? I discussed the patient in detail with the advanced practice practitioner.? Please see?their note for progress note, testing results and agreed upon plan of care for the patient. Subjective 2 Subjective: Patient doing well overall. States shortness of breath has improved. -530 over 24 hours on Lasix 40 p.o. twice daily. Blood pressure stable. Oxygen saturation 92% nasal cannula. Creatinine stable at 1. Vitals/I&O/Wt Last Vital Signs Temp 97.8 F 11/06/24 08:00 Pulse 65 11/06/24 08:00 Resp 22 H 11/06/24 08:00 BP 120/65 11/06/24 08:00 Pulse Ox 94 11/06/24 08:00 O2 Del Method Nasal Cannula 11/06/24 08:00 O2 Flow Rate 1 11/06/24 08:00 FiO2 30 11/03/24 15:33 11/05/24 11/06/24 11/06/24 22:59 06:59 14:59 Intake Total 120 / 960 220 / 1180 Output Total 350 / 350 900 / 1250 100 / 100 Balance -230 / 610 -680 / -70 -100 / -100 Weight last 48 hrs Weight 176 lb 11.2 oz Physical Exam 2 Narrative: General: No apparent distress, healthy appearing, well nourished HENMT: normoceophalic Muskuloskeletal: Full ROM Respiratory: Normal respiratory effort, clear throughout all lung matta, no use of accessory muscles Cardio: No JVD, regular rate, regular rhythm, S1 S2 normal, no murmurs, peripheral pulses 2+ radial palpated bilaterally GI: Normal to inspection, nondistended Extremities: Full ROM, normal, normal capillary refill, no cyanosis, trace edema bilateral lower extremities Neuro: Alert and oriented x4 Psych: Affect normal, mental status grossly normal Skin: Left lower leg with bandage in place Urinary Catheter Management: Huff: Cath Placed During This Visit: yes, but has since been removed by the nurse Reason for Continuing Indwelling Catheter: Accurate Measurement of Urinary Output in Critically Ill Patients Urinary Catheter Date of Insertion: 11/03/24 Urinary Catheter Time of Insertion: 13:00 Date Urinary Catheter Removed: 11/06/24 Time Urinary Catheter Discontinued: 07:48 Data 11/05/24 02:32 11/05/24 02:32 A&P Assessment and plan (1) Congestive heart failure: (2) Paroxysmal A-fib: (3) Dyslipidemia: (4) CAD (coronary artery disease): (5) Essential (primary) hypertension: Plan Patient's symptoms are improved. She appears euvolemic. Recommend continuing to diurese with with spironolactone 25 mg daily, light diuresis with lasix, monitor strict I&O as well as creatinine. Continue amiodarone for history of afib. Olga Lidiald recommend transitioning patient from subq heparin to Eliquis 2.5 BID as previously given to patient. She denies any abnormal s/s such as bleeding. Does have a hx of occult positive stool. No recent scopes done. Discussed with Dr. Richard. Patient is unsure why she was not taking it previously. She understands of risk of bleeding vs stroke and agrees to try the Eliquis. Continue Entresto for heart failure. PDMP PDMP Reviewed: Not Reviewed Attestations 2 Medical Necessity Statement*: Deferred to primary. Coding Level of Care Code Acute Code for [facility] Fwd Diagnoses Acute on chronic systolic congestive heart failure I50.23 Heart failure chronicity: acute on chronic Heart failure type: systolic Paroxysmal A-fib I48.0 Dyslipidemia E78.5 Coronary artery disease involving [place] coronary artery of [place] heart with other form of angina pectoris I25.118 Associated angina: with other forms of angina Coronary Disease-Associated Artery/Lesion type: [place] artery [place] vs. transplanted heart: [place] heart Essential (primary) hypertension I10
--- NOTE | 2024-11-06 11:28 | P.DS_ITS ---
Discharge Providers Date of Admission: 11/03/24 05:41 Date of Discharge: November 06, 2024 Attending Provider at Admission: Agata Campos MD Attending Provider at Discharge: Christiano Richard MD Primary Care Provider: Antonio Delgado MD Diagnoses at Discharge Discharge Diagnosis (1) Congestive heart failure: Status: Chronic Qualifiers: Heart failure chronicity: acute on chronic Heart failure type: systolic Qualified Code(s): I50.23 - Acute on chronic systolic (congestive) heart failure (2) Paroxysmal A-fib: Status: Chronic (3) Dyslipidemia: Status: Chronic (4) CAD (coronary artery disease): Status: Chronic Qualifiers: Associated angina: with other forms of angina Coronary Disease- Associated Artery/Lesion type: [place] artery [place] vs. transplanted heart: na tive heart Qualified Code(s): I25.118 - Atherosclerotic heart disease of [place] coronary artery with other forms of angina pectoris (5) Essential (primary) hypertension: Status: Chronic Reason for Visit Reason for Visit: SOB Brief History: History as per HPI: Sally Henderson is a 84 year old female with medical history significant for CHF and who had been admitted recently for a left great toe gangrenous toe with osteomyelitis. Patient was status post left great toe amputation because of osteomyelitis. Patient also had staph bacteremia from these gangrenous toes. Goal is to amputate the disease great toe. Patient also was with CHF exacerbation. Patient treated and was discharged yesterday on Zyvox for 14 days and oral Lasix. This morning patient got really short of breath the son brought her in for further care and evaluation. The son is very furious that the mother was supposed to go to rehab center and it was documented by 3 different nurses at discharge that the patient refused to go. Patient also related to the ED nurse that was the primary nurse this morning for this admission that when he she gets treated she wants to go home she does not want to go to rehab. When the same nurse told the patient that the son will be coming and when the son came and asked her that whenever she gets down she should go to rehab and was also being told that she said no to rehab and she related to the son that she never remember any of that she never remember telling anybody that she did not go or she does not want to go to rehab. Son is upset that the mother did not go to rehab and that the mother never said that he wall she was not going to rehab. This hospitalization at the end of optimization of care this patient needs to go to rehab and his son needs to be involved at the time of discharge to avoid these type of communication. Myself and the emergency room doctor had communicated with the son in the room trying to calm him down patient is going to stepdown unit on BiPAP. She had received 60 mg of IV Lasix here in the emergency room. I will continue with 40 mg IV twice daily of Lasix I am panculturing the patient to make sure that patient is none bacteremic and will continue with antibiotics that was ordered at the time of discharge patient can continue to have that as well. If patient is not bacteremic as of today then patient will continue with Zyvox for 14 to 14 days counting from the date of being none bacteremic. Hospital Course Hospital Course Patient was admitted to the hospital for evaluation and management of acute exacerbation of congestive heart failure. She was started on IV aggressive diuresis. She responded well to the treatment and has been back to her baseline oxygen supplementation for last 48 hours. She was continued on antibiotics for recent osteomyelitis and bacteremia. Her hospitalization was otherwise unremarkable. Safe discharge plan were discussed in detail with the patient and she requested to be transition to SNF for further rehabitation. She has been discharged to SNF in hemodynamically stable condition. She started back on anticoagulation with Eliquis 2.5 mg twice daily along with Protonix and Carafate twice daily. She is to recheck her hemoglobin in 1 week. If any concerns for developing anemia she needs to follow-up with surgical team as an outpatient for possible EGD and colonoscopy. Patient was also started on Valtrex for 10 days with concerns for herpes simplex. Physical Exam Narrative: General: Cooperative patient in no apparent distress. Alert and oriented x 3. HEENT: Normocephalic, Atraumatic. External ears normal. Nasal passages patent without drainage. MMM. Heart: RRR. Resp: LCTA. No respiratory distress, no use of accessory muscles. Nasal cannula in place on 3 L. Abd: Soft, non-tender. Non-distended. Extremities: Left toe wrapped with a bandage. Bandage is clean and dry. Skin: No rash or lesions on exposed areas. Urinary Catheter Management: Huff: Cath Placed During This Visit: yes, but has since been removed by the nurse Reason for Continuing Indwelling Catheter: Accurate Measurement of Urinary Output in Critically Ill Patients Urinary Catheter Date of Insertion: 11/03/24 Urinary Catheter Time of Insertion: 13:00 Date Urinary Catheter Removed: 11/06/24 Time Urinary Catheter Discontinued: 07:48 Discharge Data Studies Completed and Pending Completed Studies During Hospitalization Category Date Time Status XR chest 1V portable [id number] Stat Exams 11/03/24 02:06 Completed CV. echo complete* [id number] Stat Ultrasound 11/03/24 05:48 Completed Pending at discharge Category Date Time Status Blood Culture Stat Lab 11/03/24 02:24 Results Radiology Impressions Chest X-Ray 11/03/24 02:06 IMPRESSION: 1. Bibasilar atelectasis or other infiltrates. 2. Mild pulmonary vascular congestion. 3. Bilateral pleural effusions. Microbiology 11/03/24 02:24 Blood Blood Culture - Preliminary NEGATIVE TO DATE 11/03/24 02:19 Blood Blood Culture - Preliminary NEGATIVE TO DATE Laboratory Results WBC 7.81 10^3/uL (3.29-11.43) 11/05/24 02:32 RBC 3.90 10^6/uL (3.85-5.65) 11/05/24 02:32 Hgb 9.90 g/dL (11.27-16.99) L 11/05/24 02:32 Hct 32.7 % (36-47) L 11/05/24 02:32 MCV 83.8 fl (85-98) L 11/05/24 02:32 MCH 25.4 pg (27-33) L 11/05/24 02:32 MCHC 30.3 g/dL (30-55) 11/05/24 02:32 RDW 16.3 % (12.1-15.1) H 11/05/24 02:32 Plt Count 366 10^3/cmm (157-399) 11/05/24 02:32 MPV 11.0 fL (7.4-10.4) H 11/05/24 02:32 Neut % (Auto) 68.7 % 11/05/24 02:32 Lymph % (Auto) 14.1 % 11/05/24 02:32 [place] % (Auto) 11.4 % 11/05/24 02:32 Eos % (Auto) 5.1 % 11/05/24 02:32 Baso % (Auto) 0.3 % 11/05/24 02:32 Neut # (Auto) 5.37 10^3/uL (1.8-7.7) 11/05/24 02:32 Lymph # (Auto) 1.1 10^3/uL (0.8-4.8) 11/05/24 02:32 [place] # (Auto) 0.9 10^3/uL (0.2-0.9) 11/05/24 02:32 Eos # (Auto) 0.4 10^3/uL (0.0-0.8) 11/05/24 02:32 Baso # (Auto) 0.0 10^3/uL (0.0-0.1) 11/05/24 02:32 Nucleated RBC % (auto) 0 % 11/05/24 02:32 Nucleated RBCs # 0.0 /100WBC 11/05/24 02:32 Specimen Type Arterial 11/03/24 02:33 Sample Site Brachial, right 11/03/24 02:33 ABG pH 7.38 (7.35-7.45) 11/03/24 02:33 ABG pCO2 43.3 mmHg (35-45) 11/03/24 02:33 ABG pO2 94.6 mmHg (80.0-100.0) 11/03/24 02:33 ABG HCO3 25.7 mmol/L (22-26) 11/03/24 02:33 ABG Base Excess 0.4 mmol/L (-2.0-2.0) 11/03/24 02:33 Tanner Test N/a 11/03/24 02:33 Hematocrit 29.9 % (37-47) L 11/03/24 02:33 Hgb O2 Saturation 95.8 % (95-100) 11/03/24 02:33 Carboxyhemoglobin 1.1 %THgb (0.4-20.1) 11/03/24 02:33 Methemoglobin 1.1 % (0.4-1.5) 11/03/24 02:33 Total Hemoglobin 9.8 g/dL (12-16) L 11/03/24 02:33 O2 Delivery Device Nc 11/03/24 02:33 O2 Liters/Min 4.0 % 11/03/24 02:33 Scroll Shear Operator ID [email or web address] 11/03/24 02:33 Sodium 140 mmol/L (136-145) 11/05/24 02:32 Potassium 4.2 mmol/L (3.5-5.1) 11/05/24 02:32 Chloride 101 mmol/L (98-107) 11/05/24 02:32 Carbon Dioxide 31 mmol/L (22-29) H 11/05/24 02:32 Anion Gap 12.2 (5-19) 11/05/24 02:32 BUN 17 mg/dL (8-23) 11/05/24 02:32 Creatinine 1.0 mg/dL (0.5-0.9) H 11/05/24 02:32 GFR Calculation Not Reportable 11/05/24 02:32 Glucose 160 mg/dL (65-115) H 11/05/24 02:32 POC Glucose 193 mg/dL (70-110) H 11/06/24 06:11 Estimat Average Glucose 249 11/03/24 06:10 Hemoglobin A1c 10.3 % (4.0-6.0) H 11/03/24 06:10 Calculated Osmolality 295 mOsm/kg (285-295) 11/05/24 02:32 Lactic Acid 1.9 mmol/L (0.5-2.2) 11/03/24 02:19 Calcium 8.5 mg/dL (8.5-10.5) 11/05/24 02:32 Phosphorus 3.2 mg/dL (2.5-4.5) 11/03/24 06:10 Magnesium 1.6 mg/dL (1.7-2.3) L 11/03/24 06:10 Total Bilirubin 0.2 mg/dL (0.15-1.2) 11/05/24 02:32 AST 11 U/L (0-32) 11/05/24 02:32 ALT 8 U/L (0-33) 11/05/24 02:32 Alkaline Phosphatase 64 U/L (35-105) 11/05/24 02:32 Troponin T Baseline 30 ng/L (0-10) H 11/03/24 05:03 Troponin T 120 Minute 31.74 ng/L (0-10) H 11/03/24 07:36 Delta Troponin T 1.74 ABS# (0-10) 11/03/24 07:36 Troponin T Hi Sens 6Hr 30.68 ng/L (0-10) H 11/03/24 11:27 Troponin T Hi Sens 6Hr Delta 0.68 ng/L (0-12) 11/03/24 11:27 C-Reactive Protein 42.9 mg/L (0.0-4.9) H 11/04/24 04:46 NT-Pro-B Natriuret Pep 78475 pg/mL (0-450) H 11/03/24 02:19 Total Protein 5.9 g/dL (6.6-8.7) L 11/05/24 02:32 Albumin 2.7 g/dL (3.5-5.2) L 11/05/24 02:32 Globulin 3.2 g/dL (1.3-4.6) 11/05/24 02:32 Influenza A (PCR) Negative (Negative) 11/03/24 02:16 Influenza Type B (PCR) Negative (Negative) 11/03/24 02:16 RSV (PCR) Negative (Negative) 11/03/24 02:16 SARS-CoV-2 (PCR) Negative (Negative) 11/03/24 02:16 Vitals Last Vital Signs Temp 97.8 F 11/06/24 08:00 Pulse 65 11/06/24 08:00 Resp 22 H 11/06/24 08:00 BP 120/65 11/06/24 08:00 Pulse Ox 94 11/06/24 08:00 O2 Del Method Nasal Cannula 11/06/24 08:00 O2 Flow Rate 1 11/06/24 08:00 FiO2 30 11/03/24 15:33 Discharge Plan Discharge Patient Disposition: Xfer SNF Condition: Fair Prescriptions: New valacyclovir 1 gram Tablet 1,000 mg PO BID 10 Days Qty: 20 0RF sucralfate 100 mg/mL Suspension 1 g PO BID 30 Days Qty: 600 0RF pantoprazole 40 mg Tablet,Delayed Release (Dr/Ec) 40 mg PO BID 30 Days Qty: 60 0RF Eliquis 5 mg Tablet 2.5 mg PO BID@0900,2100 30 Days Qty: 30 0RF Continued clopidogrel 75 mg tablet 75 mg PO BEDTIME Qty: 90 3RF Entresto 24-26 mg tablet 1 tab PO BID Qty: 60 1RF nitroglycerin 0.4 mg tablet, sublingual 0.4 mg buccal PRN PRN (Reason: Chest Pain) furosemide 40 mg tablet 40 mg PO BID@0800,1400 30 Days Qty: 60 0RF insulin aspart U-100 [Novolog FlexPen U-100 Insulin] 100 unit/mL (3 mL) insulin pen See Rx Instructions .ROUTE .COMPLEX Qty: 15 0RF Rx Instructions: Inject 3 times daily, subcut, after meals, based on sliding scale provided Triple Antibiotic 3.5mg-400 unit- 5,000 unit/gram Ointment 1 applic topical BID Qty: 30 0RF aspirin 81 mg Tablet,Delayed Release (Dr/Ec) 81 mg PO DAILY Qty: 30 0RF potassium chloride 20 mEq tablet,ER particles/crystals 10 meq PO DAILY Qty: 30 0RF albuterol sulfate 2.5 mg /3 mL (0.083 %) solution for nebulization 2.5 mg continuous nebulization TID PRN (Reason: Shortness Of Breath) insulin degludec [Tresiba FlexTouch U-200] 200 unit/mL (3 mL) insulin pen 27 unit SUBCUT DAILY ranolazine 1,000 mg tablet extended release 12 hr 1,000 mg PO BID ciprofloxacin HCl 500 mg tablet 500 mg PO BID 10 Days Qty: 20 0RF linezolid 600 mg tablet 600 mg PO BID 10 Days Qty: 20 0RF atorvastatin 40 mg tablet 40 mg PO QPM amiodarone 200 mg tablet 200 mg PO DAILY tramadol 50 mg tablet 50 mg PO Q6H PRN (Reason: Pain) (DME) nebulizer and compressor [[id number] Nebulizer] Device See Rx Instructions .Route Qty: 1 0RF Rx Instructions: As directed budesonide-formoterol [Symbicort] 80-4.5 mcg/actuation HFA aerosol inhaler 1 inh inhalation BID Qty: 10.2 0RF Discontinued isosorbide mononitrate 60 mg tablet extended release 24 hr 60 mg PO DAILY metoprolol tartrate 25 mg Tablet 12.5 mg PO BID@0900,2100 Qty: 60 0RF losartan 25 mg tablet 25 mg PO DAILY Qty: 30 0RF Discharge Orders: Discharge Order (Routine); Ordered 11/06/24 Ordered By: Christiano Richard Referrals: [facility] [Outside] Antonio Delgado MD [Primary Care Provider, [facility]] - 11/13/24 1:15 pm Discharge Diet: Cardiac and Diabetic Discharge Activity: Resume usual activity and Increase activity as tolerated Patient Instructions: Heart Failure (ED), COPD (Chronic Obstructive Pulmonary Disease) (ED), Opioid Safety, Pain Management, Patient Portal & Ivanna Instructions Activity Restrictions/Additional Instructions: Restrict fluid intake to less than 1500 cc, salt intake to less than 2 g daily. Advised to check his weight daily at home. Is advised that weight today would be the dry weight and if body weight increases by around 5 pounds, patient is to take an extra dose of Lasix daily till body weight comes down to weight today. If not able to come down to dry body weight in 1 week, then is to call cardiology office for further recommendations. Patient was counseled in detail to take medications regularly as prescribed. Continue ciprofloxacin linezolid for 10 more days. Take Valtrex 1 g twice daily for 10 days. Repeat BMP in 1 week. Take Protonix twice daily, Carafate twice daily along with Eliquis twice daily. Recheck hemoglobin in 1 week. If any concern for developing anemia patient should follow-up with surgical team as an outpatient for EGD and colonoscopy. Discharge Attestations Time Spent in Discharge Care*: greater than 30 min Specific Discharge Activities: educating patient, discussing with pcp/other providers, discussing with casework manager/social workers/dc planners, documenting/other paperwork and evaluating patient/reviewing data Status at Discharge: Cognitive status at discharge: cognitively intact , Behavioral status at discharge: cooperative , Functional status at discharge: uses cane/walker , Overall status at discharge: patient is back to baseline Quality Metrics Clinical Quality Measures [ No reported AMI, CVA or VTE this stay] Coding Level of Care Code 15645 Total time (in minutes) for Discharge: 65 Diagnoses Acute on chronic systolic congestive heart failure I50.23 Heart failure chronicity: acute on chronic Heart failure type: systolic Paroxysmal A-fib I48.0 Dyslipidemia E78.5 Coronary artery disease involving [place] coronary artery of [place] heart with other form of angina pectoris I25.118 Associated angina: with other forms of angina Coronary Disease-Associated Artery/Lesion type: [place] artery [place] vs. transplanted heart: [place] heart Essential (primary) hypertension I10
--- NOTE | 2024-11-06 11:41 | PC.SOCIAL ---
IMM Updated Updated pt on IMM. No questions voiced. Provided pt a copy. Initialed, dated, & timed a copy & placed in chart.
[2024-11-06 12:00] VITALS: BP 97/58; PULSE 69; RESP 18; TEMP 36.4; O2SAT 92
--- NOTE | 2024-11-06 12:14 | PC.NURSE ---
Patient to transfer to [facility] for rehab. Report called to PHYLLIS Reyes.
[2024-11-06 12:21] LABS: Glucose Point of Care 116 mg/dL (70-110)
[2024-11-06 12:24] LABS: SARS Covid-2 Antigen Negative (Negative)
[2024-11-06 14:40] VITALS: BP 97/58; PULSE 69; RESP 18; TEMP 36.4; O2SAT 92
--- NOTE | 2024-11-06 14:42 | PC.NURSE ---
Patient discharged to [facility]. [facility] provided transportation. Left by wheelchair.
== END 2024-11-06 14:42 | disposition skilled nursing facility (03) | DRG 291 ==
LOC: ER 04:44 → CSU 06:47
PROVIDERS: Family Medicine; Admitting Provider Internal Medicine; Emergency Provider Emergency Medicine; PCP Family Medicine; Visit Provider Student in an Organized Health Care Education/Training Program
DX: I13.0 Hypertensive heart and chronic kidney disease with heart failure and stage 1 through stage 4 chronic kidney disease, or unspecified chronic kidney disease (principal); I50.33 Acute on chronic diastolic (congestive) heart failure; J96.21 Acute and chronic respiratory failure with hypoxia; M86.8X7 Other osteomyelitis, ankle and foot; R78.81 Bacteremia; Z79.899 Other long term (current) drug therapy; Z79.4 Long term (current) use of insulin; Z79.82 Long term (current) use of aspirin; E78.5 Hyperlipidemia, unspecified; J44.9 Chronic obstructive pulmonary disease, unspecified; Z99.81 Dependence on supplemental oxygen; I48.0 Paroxysmal atrial fibrillation; E11.22 Type 2 diabetes mellitus with diabetic chronic kidney disease; I25.10 Atherosclerotic heart disease of native coronary artery without angina pectoris; Z79.01 Long term (current) use of anticoagulants; I25.2 Old myocardial infarction; E11.69 Type 2 diabetes mellitus with other specified complication; E11.621 Type 2 diabetes mellitus with foot ulcer; L97.509 Non-pressure chronic ulcer of other part of unspecified foot with unspecified severity; I25.118 Atherosclerotic heart disease of native coronary artery with other forms of angina pectoris; D63.1 Anemia in chronic kidney disease; N18.9 Chronic kidney disease, unspecified; B00.9 Herpesviral infection, unspecified
CPT/HCPCS: 36415; 36416; 36600; 51702; 71045; 80053; 82805; 82962; 83036; 83605; 83735; 83880; 84100; 84484; 85025; 86140; 87040; 87426; 87637; 93005; 93306; 94640; 94660; 96372; 96374; 96376; 97110; 97161; 97165; 97530; 97535; 99285; J1644; J1815; J1938; J2060; J2270; J7040; J7611; J9999

== ENCOUNTER → 2024-11-14 12:48 | Outpatient (BNVA) | payer MEDICARE, SELFPAY | PROVIDERS: PCP Family Medicine; Visit Provider Podiatrist Foot & Ankle Surgery | DX: E11.22 Type 2 diabetes mellitus with diabetic chronic kidney disease (principal); Z79.4 Long term (current) use of insulin; N18.31 Chronic kidney disease, stage 3a; Z89.412 Acquired absence of left great toe | CPT/HCPCS: 99213 ==

== ENCOUNTER → 2024-11-21 14:54 | Outpatient (BNVA) | payer MEDICARE, SELFPAY | PROVIDERS: PCP Family Medicine; Visit Provider Podiatrist Foot & Ankle Surgery | DX: Z98.890 Other specified postprocedural states (principal); E11.9 Type 2 diabetes mellitus without complications; Z79.4 Long term (current) use of insulin; N18.31 Chronic kidney disease, stage 3a; E11.29 Type 2 diabetes mellitus with other diabetic kidney complication; Z89.412 Acquired absence of left great toe | CPT/HCPCS: 99213 ==

== ENCOUNTER → 2024-11-28 14:04 | Outpatient (BNVA) | payer MEDICARE, SELFPAY | PROVIDERS: PCP Family Medicine; Visit Provider Podiatrist Foot & Ankle Surgery | DX: Z98.890 Other specified postprocedural states (principal); N18.31 Chronic kidney disease, stage 3a; E11.621 Type 2 diabetes mellitus with foot ulcer; L97.522 Non-pressure chronic ulcer of other part of left foot with fat layer exposed; Z89.412 Acquired absence of left great toe; Z79.4 Long term (current) use of insulin | CPT/HCPCS: 99214 ==

== ENCOUNTER 2024-11-29 08:45 | Outpatient (CLI) | payer MEDICARE, SELFPAY | END 2024-11-29 08:46 | disposition home or self-care (01) | LOC: SPT 08:46 | PROVIDERS: PCP Family Medicine; Visit Provider Podiatrist Foot & Ankle Surgery | DX: Z46.89 Encounter for fitting and adjustment of other specified devices (principal); L97.522 Non-pressure chronic ulcer of other part of left foot with fat layer exposed | CPT/HCPCS: L4361 ==

== ENCOUNTER 2024-12-05 18:52 | Inpatient (IN) | payer MEDICARE, SELFPAY ==
[2024-12-05] VITALS (7 sets, daily range): BP systolic 102–132; BP diastolic 39–74; PULSE 58–78; RESP 17–25; TEMP 36.8; O2SAT 92–97; BMI 34.6
--- NOTE | 2024-12-05 18:57 | ECG_ITS ---
[facility] Test Date: 2024-12-05 Pat Name: Sally Henderson Department: Room: Gender: Female National Account Representative: : 1940 Requested By: Linnette Benavidez Order Number: [id number] Leonora MD: Aleksey Velasquez M.D. Measurements Intervals [place] Rate: 62 P: 66 MI: 163 QRS: 160 QRSD: 114 T: 158 QT: 402 QTc: 410 Interpretive Statements SINUS RHYTHM WITH SINUS ARRHYTHMIA INDETERMINATE AXIS LOW QRS VOLTAGE IN PRECORDIAL LEADS [QRS DEFLECTION < 1.0 mV IN CHEST LEADS] MODERATE INTRAVENTRICULAR CONDUCTION DELAY [110+ ms QRS DURATION] Nonspecific ST-T abnormality Compared to ECG 11/03/2024 05:17:37 no significant change Electronically Signed On 12-05-2024 19:23:45 CDT by Ron [email or web address]
--- NOTE | 2024-12-05 18:57 | XRR_ITS ---
PROCEDURE INFORMATION: Exam: XR Chest Exam date and time: 12/05/2024 7:19 PM Age: 84 years old Clinical indication: Shortness of breath TECHNIQUE: Imaging protocol: Radiologic exam of the chest. Views: 1 view. COMPARISON: CR (CHEST, ) 11/03/2024 2:24 AM FINDINGS: Lungs: Bilateral atelectasis, cannot exclude a superimposed infectious process. Pleural spaces: Small bilateral pleural effusions. Heart/Mediastinum: Mediastinal clips. Bones/joints: Sternotomy wires. Chronic left-sided rib fractures. XR/XR chest 1V portable [id number] IMPRESSION: 1. Bilateral atelectasis, cannot exclude a superimposed infectious process. 2. Small bilateral pleural effusions.
--- NOTE | 2024-12-05 19:05 | ED_ITS ---
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 She had turned her oxygen up to 5 L at home secondary to her work of breathing and decreased oxygen saturations. She did receive a breathing treatment and route. On presentation she is a bit tachypneic and her lung sounds are very coarse with scattered wheeze. Mild increased work of breathing. She denies any fever or chest pain. She is also complaining of left foot pain which is chronic. Related Data Home Medications ?Medication ?Instructions ?Recorded ?Confirmed nitroglycerin 0.4 mg sublingual 0.4 mg buccal PRN PRN Chest Pain 04/10/24 11/28/24 tablet amiodarone 200 mg tablet 200 mg PO DAILY 07/18/24 atorvastatin 40 mg tablet 40 mg PO QPM 07/18/24 tramadol 50 mg tablet 50 mg PO Q6H PRN Pain 11/28/24 albuterol sulfate 2.5 mg/3 mL 2.5 mg continuous nebuli zation TID 10/29/24 11/28/24 (0.083 %) solution for nebulization PRN Shortness Of B reath insulin degludec 200 unit/mL (3 27 unit SUBCUT DAILY 0 10/29/24 11/28/24 mL) subcutaneous pen (Tresiba FlexTouch U-200 insulin) ranolazine 1,000 mg 1,000 mg PO BID 11/03/24 tablet,extended release,12 hr Previous Rx's ?Medication ?Instructions ?Recorded clopidogrel 75 mg tablet 75 mg PO BEDTIME #90 tabs furosemide 40 mg tablet 40 mg PO BID@0800,1400 30 da ys #60 05/28/24 tabs insulin aspart U-100 100 unit/mL See Rx Instructions . Route 06/11/24 (3 mL) subcutaneous pen (Novolog .COMPLEX #15 mL FlexPen U-100 Insulin aspart) budesonide-formoterol HFA 80 1 inh inhalation BID #10. 2 grams 07/23/24 mcg-4.5 mcg/actuation aerosol inhaler (Symbicort) nebulizer and compressor ([id number] #1 ea 07/23/24 Nebulizer) sacubitril 24 mg-valsartan 26 mg 1 tab PO BID #60 tabs 07/25/24 tablet (Entresto) aspirin 81 mg tablet,delayed 81 mg PO DAILY #30 tabs 0 08/07/24 release neomycin-bacitracn Zn-polymyx 3.5 1 applic topical BID #30 grams 08/07/24 mg-400 unit-5,000 unit/gram top oint (Triple Antibiotic) potassium chloride 20 mEq 10 meq (1/2 x 20 mEq) PO GLENNA LY #30 08/07/24 tablet,extended release(part/cryst) tabs apixaban 5 mg tablet (Eliquis) 2.5 mg (1/2 x 5 mg) PO 11/06/24 BID@0900,2100 30 days #30 tabs pantoprazole 40 mg tablet,delayed 40 mg PO BID 30 days #60 tabs 11/06/24 release sucralfate 100 mg/mL oral 1 g (10 mL) PO BID 30 days # 600 mL 11/06/24 suspension CAM walker #1 ea 11/28/24 doxycycline hyclate 100 mg capsule 100 mg PO BID 10 da ys #20 caps 11/28/24 Allergies Allergy/AdvReac Type Severity Reaction Status Date / Time No Known Allergies Allergy Verified 11/28/24 14:09 Review of Systems 2 Narrative: Constitutional symptoms: Negative except as documented in HPI. Skin symptoms: Negative except as documented in HPI. Eye symptoms: Negative except as documented in HPI. ENMT symptoms: Negative except as documented in HPI. Respiratory symptoms: Negative except as documented in HPI. Cardiovascular symptoms: Negative except as documented in HPI. Gastrointestinal symptoms: Negative except as documented in HPI. Genitourinary symptoms: Negative except as documented in HPI. Musculoskeletal symptoms: Negative except as documented in HPI. Neurologic symptoms: Negative except as documented in HPI. Psychiatric symptoms: Negative except as documented in HPI. Endocrine symptoms: Negative except as documented in HPI. PFSH ED 2 PFSH: Medical History (Updated 12/05/24 @ 20:32 by Linnette Thurman MD) Dyslipidemia Essential (primary) hypertension COPD (chronic obstructive pulmonary disease) Chronic hypoxic respiratory failure, on home oxygen therapy Diabetes mellitus, type II, insulin dependent CAD (coronary artery disease) Paroxysmal A-fib CKD (chronic kidney disease) CHF (congestive heart failure) Respiratory arrest has required intubation Non-STEMI (non-ST elevated myocardial infarction) Contrast-induced nephropathy Surgical History (Updated 12/05/24 @ 20:32 by Linnette Thurman MD) Hx of hysterectomy Hx of CABG Family History Unknown No problems noted. Social History Smoking and tobacco/nicotine status: former use of tobacco/nicotine Alcohol intake: never Substance/Drug Use: never Physical Exam 2 Narrative: EXAM NARRATIVE: General: Alert, no acute distress. Skin: Warm, dry. Head: Normocephalic, atraumatic. Neck: Supple, trachea midline. Eye: Extraocular movements are intact. Ears, nose, mouth and throat: Oral mucosa moist. Cardiovascular: Regular rate and rhythm, Normal peripheral perfusion. Respiratory: coarse, scattered wheeze, mild increased wob. tachypnea, breath sounds are equal, Symmetrical chest wall expansion. Gastrointestinal: Soft, Nontender, Non distended Musculoskeletal: Normal ROM, no deformity. Neurological: Alert and oriented, No focal neurological deficit observed. Psychiatric: Cooperative, appropriate mood & affect. Course 2 Vital Signs: Vital signs: Vital Signs Temperature 98.3 F 12/05/24 19:01 Pulse Rate 67 12/05/24 19:51 Respiratory Rate 25 H 12/05/24 19:51 Blood Pressure 126/74 12/05/24 19:51 Pulse Oximetry 94 12/05/24 19:51 Oxygen Delivery Me thod Nasal Cannula 12/05/24 19:35 Oxygen Flow Rate 2 12/05/24 19:35 MDM - SOB/Dyspnea Medical Decision Making Differential diagnosis for patient with shortness of breath includes but is not limited to and based on the above HPI, review of systems and physical exam: Pneumonia. Bronchitis. Asthma or COPD with acute exacerbation. Acute coronary syndrome / TN. Pulmonary embolism. Anxiety. Congestive heart failure. Viral infections including influenza and Covid-19. Atrial fibrillation. Anxiety. Pleural effusion. Pneumothorax. Orders placed to evaluate differential diagnosis based on the above differential, HPI and physical exam EKG: Time 1916. Rate 62. Normal sinus rhythm with sinus arrhythmia., No ST-T changes, no ectopy, normal OH & QRS intervals, This was reviewed and interpreted by myself the ER physician at 1921 Chest x-ray: Cardiomegaly, what appears to be some fluid in the fissures and fluid overload versus some scattered infiltrate. Leaning more towards heart failure given her history and her presentation today. Films were interpreted by myself the emergency room provider and pending final radiology review. Lab Review: Laboratory results were reviewed and interpreted by myself the emergency room physician. No leukocytosis. Stable anemia with a hemoglobin of 9.2. No renal failure with BUN/creatinine of 20 and 0.8. proBNP is 22,000. This is significantly above her baseline which is usually around 8-10,000. Initial troponin is 60. Which is a little above her baseline around 30. Given that she was hypoxemic and working hard I think this may just be due to strain. Will wait on the second troponin to determine if this needs heparin drip etc. I reviewed the patient's medical record. 84-year-old female with a history of COPD, chronic hypoxemic respiratory failure on 2 to 3 L nasal cannula at all times, hypertension, hyperlipidemia, obesity, coronary artery disease, diabetes, chronic kidney disease and congestive heart failure Reexamination: Patient appears quite bit more comfortable after breathing treatments etc. Oxygen requirements are down to 2 to 3 L. Work of breathing is improved. She says she is too weak to get up. She does request that I consult Dr. Renee because she was post to follow-up in his clinic today. Consultation: I spoke with Dr. Renee who is on-call for podiatry and takes care of this patient. She was post going to clinic today but could not make it because she was sick. Dr. Renee will check on the patient and likely take her stitches out tomorrow in the hospital. Consultation: I spoke with Dr. Munguia who is on-call for the hospitalist service who agrees to admission. Assessment and plan: CHF with acute exacerbation Pulmonary edema Acute on chronic hypoxemic respiratory failure COPD with acute exacerbation Recent toe amputation Foot pain ?IV Solu-Medrol, 2 updrafts, IV doxycycline, and IV Lasix. Huff being placed as the patient says she cannot get up. Currently requiring 2 to 3 L nasal cannula. -I discussed the patient with the hospitalist on-call who is admitting the patient. - Discussed findings and plan with patient. Answered any questions. - All laboratory values were reviewed and interpreted personally by myself, the ER physician - All imaging was reviewed and interpreted personally by myself, the ER physician. - Evaluation and treatment of this problem were appropriate in the emergency setting Critical Care: -I spent a total of >35 minutes of critical care time managing the patient, independent of any other practitioner. -The time involved in the performance of separately reportable procedures was not counted towards critical care time. Lab Data 12/05/24 19:06 12/05/24 19:06 Labs/Radiology: Laboratory Results WBC 9.69 10^3/uL (3.29-11.43) 12/05/24 19:06 RBC 3.71 10^6/uL (3.85-5.65) L 12/05/24 19:06 Hgb 9.20 g/dL (11.27-16.99) L 12/05/24 19:06 Hct 31.2 % (36-47) L 12/05/24 19:06 MCV 84.1 fl (85-98) L 12/05/24 19:06 MCH 24.8 pg (27-33) L 12/05/24 19:06 MCHC 29.5 g/dL (30-55) L 12/05/24 19:06 RDW 19.1 % (12.1-15.1) H 12/05/24 19:06 Plt Count 334 10^3/cmm (157-399) 12/05/24 19:06 MPV 11.2 fL (7.4-10.4) H 12/05/24 19:06 Neut % (Auto) 83.0 % 12/05/24 19:06 Lymph % (Auto) 8.3 % 12/05/24 19:06 [place] % (Auto) 6.8 % 12/05/24 19:06 Eos % (Auto) 1.3 % 12/05/24 19:06 Baso % (Auto) 0.2 % 12/05/24 19:06 Neut # (Auto) 8.04 10^3/uL (1.8-7.7) H 12/05/24 19:06 Lymph # (Auto) 0.8 10^3/uL (0.8-4.8) 12/05/24 19:06 [place] # (Auto) 0.7 10^3/uL (0.2-0.9) 12/05/24 19:06 Eos # (Auto) 0.1 10^3/uL (0.0-0.8) 12/05/24 19:06 Baso # (Auto) 0.0 10^3/uL (0.0-0.1) 12/05/24 19:06 Nucleated RBC % (auto) 0 % 12/05/24 19:06 Nucleated RBCs # 0.0 /100WBC 12/05/24 19:06 Specimen Type Venous 12/05/24 19:33 ABG pH 7.39 (7.35-7.45) 12/05/24 19:33 ABG pCO2 44.7 mmHg (35-45) 12/05/24 19:33 ABG pO2 54.1 mmHg (80.0-100.0) L 12/05/24 19:33 ABG PO2/FiO2 Ratio 193 12/05/24 19:33 ABG HCO3 26.8 mmol/L (22-26) H 12/05/24 19:33 ABG O2 Saturation 88.4 12/05/24 19:33 ABG Base Excess 1.5 mmol/L (-2.0-2.0) 12/05/24 19:33 Tanner Test Pos 12/05/24 19:33 Hematocrit 28.0 % (37-47) L 12/05/24 19:33 Hgb O2 Saturation 83.2 % (95-100) L 12/05/24 19:33 Carboxyhemoglobin 5.0 %THgb (0.4-20.1) 12/05/24 19:33 Methemoglobin 0.8 % (0.4-1.5) 12/05/24 19:33 Total Hemoglobin 9.1 g/dL (12-16) L 12/05/24 19:33 Sodium 141.0 mmol/L (131-143) 12/05/24 19:33 Potassium 4.4 mmol/L (3.5-5.0) 12/05/24 19:33 Glucose 222.0 mg/dL (70-115) H 12/05/24 19:33 Ionized Calcium 1.1 mmol/L (1.1-1.4) 12/05/24 19:33 O2 Delivery Device Nc 12/05/24 19:33 O2 Liters/Min 2.0 % 12/05/24 19:33 FiO2 28.0 % 12/05/24 19:33 Director Of Special Education ID [email or web address] 12/05/24 19:33 Sodium 140 mmol/L (136-145) 12/05/24 19:06 Potassium 4.8 mmol/L (3.5-5.1) 12/05/24 19:06 Chloride 101 mmol/L (98-107) 12/05/24 19:06 Carbon Dioxide 27 mmol/L (22-29) 12/05/24 19:06 Anion Gap 16.8 (5-19) 12/05/24 19:06 BUN 20 mg/dL (8-23) 12/05/24 19:06 Creatinine 0.8 mg/dL (0.5-0.9) 12/05/24 19:06 GFR Calculation Not Reportable 12/05/24 19:06 Glucose 275 mg/dL (65-115) H 12/05/24 19:06 Calculated Osmolality 302 mOsm/kg (285-295) H 12/05/24 19:06 Lactic Acid 3.0 mmol/L (0.5-2.2) H 12/05/24 19:06 Calcium 8.9 mg/dL (8.5-10.5) 12/05/24 19:06 Total Bilirubin 0.4 mg/dL (0.15-1.2) 12/05/24 19:06 AST 15 U/L (0-32) 12/05/24 19:06 ALT 36 U/L (0-33) H 12/05/24 19:06 Alkaline Phosphatase 110 U/L (35-105) H 12/05/24 19:06 Troponin T Baseline 61 ng/L (0-10) H 12/05/24 19:06 C-Reactive Protein 34.1 mg/L (0.0-4.9) H 12/05/24 19:06 NT-Pro-B Natriuret Pep 44789 pg/mL (0-450) H 12/05/24 19:06 Total Protein 6.3 g/dL (6.6-8.7) L 12/05/24 19:06 Albumin 3.4 g/dL (3.5-5.2) L 12/05/24 19:06 Globulin 2.9 g/dL (1.3-4.6) 12/05/24 19:06 All radiology interpretation(s) finalized by discharge Discharge Plan Discharge Patient Disposition: Admitted As Inpatient Clinical Impression: Acute exacerbation of chronic obstructive airways disease, Acute exacerbation of congestive heart failure, Acute on chronic hypoxic respiratory failure, History of amputation of toe, Foot pain Condition: Stable Coding Level of Care Code ED Infection Control Practitioner for Akosua Vasquez
[2024-12-05 19:18] LABS: Hematocrit 31.2 % (36-47); Hemoglobin 9.20 g/dL (11.27-16.99); Mean Corpuscular HGB Conc 29.5 g/dL (30-55); Mean Corpuscular Hemoglobin 24.8 pg (27-33); Mean Corpuscular Volume 84.1 fl (85-98); Nucleated Red Blood Cells % 0 %; Platelet Count 334 10^3/cmm (157-399); Red Blood Count 3.71 10^6/uL (3.85-5.65); White Blood Count 9.69 10^3/uL (3.29-11.43)
--- OUTSIDE RECORDS SUMMARY | 2024-12-05 19:18 | XMS_ITS | Clinical Summary ---
Author Organization [facility] Address [address] [place] [address] Phone Care Team Providers Care Clinical Leader Name Role Phone Thomas Nava DO Primary Care Provider [phone] Allergies No known active allergies Medications ranitidine [...] heart failure), [facility]HCC[facility]Non-Drug; Combo Route) route. 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 30 Tab 2 4 Active traMADol (ULTRAM) 50 mg tablet Take 1 Tab by mouth every 6 hours as needed for Pain. 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 Gender Identity Not on file Sexual Orientation [...] 1-dose 75+ series) 2017 INFLUENZA VACCINE (#1) 2024 02/12/2013 Medical Devices Implanted Type Area Prefitter Device Identifier Shelf Expiration Date Model / Serial / Lot New [place] Ptfe Thck 1.6mmx2.5x2.5cm [id number] - Sn/A Implanted:Qty: 1 on 07/12/2013 at [facility] Graft CR [employer] 04/11/2018 [id number] / N/A / [id number] Procedures Procedure Name Priority Date/Time Associated Diagnosis Comments HEMOGLOBIN A1C Routine 07/11/2013 2:35 PM INDUSTRIAL WELDER Crescendo angina (CMS/HCC) CAD (coronary artery disease) Type II or unspecified type diabetes mellitus with other specified manifestations, not stated as uncontrolled (CMS/HCC) Essential hypertension, benign Hyperlipidemia CHF (congestive heart failure), NYHA class IV (CMS/HCC) from Last 3 Months or Most Recently Relevant to Health Maintenance Results * (ABNORMAL) HEMOGLOBIN A1C (07/11/2013 2:35 PM INDUSTRIAL WELDER) HEMOGLOBIN A1C 8.5(H) 4.0 - 6.0 %A1C [facility] Comment: This test was performed on a [employer] VARIANT II Instrument using HPLC methodology. Blood specimen (specimen) 07/11/2013 2:35 PM INDUSTRIAL WELDER 07/11/2013 2:54 PM INDUSTRIAL WELDER Margaret Sheldon MD CHEMISTRY ORDERABLES F inal Result INTERFACE SYSTEM Refer to clinic/hospital department [facility] CLIA# [id number] [place] [place] [address] from Last 3 Months or Most Recently Relevant to Health Maintenance Insurance [employer] [facility] [place] [employer] [facility], [place] [address] [place] [id number] Advance Directives For more information, please contact: [phone] * Full Code (Latest Code Status on File) Date Activated Date Inactivated Comments 07/13/2013 7:11 AM 07/18/2013 6:51 PM * Full Code Date Activated Date Inactivated Comments 07/12/2013 11:11 AM 07/13/2013 7:11 AM * Full Code Date Activated Date Inactivated Comments 07/12/2013 10:37 AM 07/12/2013 11:11 AM * Full Code Date Activated Date Inactivated Comments 07/12/2013 4:55 AM 07/12/2013 10:37 AM Care Teams Clinical Leader Relationship Specialty Start Date End Date Thomas Nava DO [address] [address] PCP - General Family Practice 06/26/13
--- OUTSIDE RECORDS SUMMARY | 2024-12-05 19:18 | XMS_ITS | Data Portability ---
Author Organization [facility] [place] [facility], [facility] Address [address] [address] Care Team Providers Care Card Folder Name Role Phone BRADY LUCIO Primary Care Provider [phone] Assessment No assessment recorded. Plan of Treatment Reminders Order Date Submit Date Provider Last Modified By Organization Details Last Modified Time Details Appointments None record ed. Lab None record ed. Referral None record ed. Procedures None record ed. Surgeries None record ed. Imaging XR, foot, 3 or more view 025 10/29/19 [facility] ([facility]), [address], [place], [address], 17:25:02 Medication Orders None record ed. Patient TargetsNo targets recorded. Patient InstructionsNo instructions recorded. Reason for Referral None Reported. Results Created Date Observation Date Name Description Value Unit Range Abnormal Flag Note LastModifiedBy Organization Detail LastModifiedTime 10/31/19 25 10/28/2024 XR, foot, 3 or more view No observ ation record ed. [email or web address] [place] [address] [address] [place], [address], 10/30/2024 14:42:00 Result Notes None recorded. Problems Name Problem SNOMED Code Status Onset Date Resolution Date Notes Provider Name and Address Organization Details Recorded Time Angina pectoris 417859721 Completed 201301/08/2014 ANGINAL PAIN - Status is Inactive ; Recorded 01/09/20 14 9:54AM by Katrina Castanon RN, Annotati on/Adden dum; Promoted ; acuity set as *; Not Available [employer] 3 03:07:58 Backache 290075722 Active 2021 CHRONIC BACK PAIN LOLA bean, [facility] 4 09:31:16 Chronic back pain greater than three months duration 48868020428 2 Active 2022 LOLA GUERRERO null, [facility] 5 14:02:43 Diabetic peripher al neuropat hy 826816308 Active 2022 LOLA GUERRERO null, [facility] 4 09:31:34 Hyperlip idemia 75089036 Active 2022 LOLA GUERRERO null, [facility] 4 09:31:18 [facility] hyperten chloe 99627590 Active 2022 LOLA GUERRERO null, [facility] 4 09:31:30 Coronary atherosc lerosis 045489495 Active 2022 LOLA GUERRERO [facility] 4 09:31:24 Compress ion fracture of thoracic vertebra 54754727545 04 Active 2023 hx of Sulma Anish [facility] 5 16:54:44 Compress ion fracture of lumbar spine 183756686 Active 2023 L5, hx of Sulma Anish null, [facility] 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 5 14:02:43 Diabetes mellitus 02364706 Active 2023 NATY HAYES null, [facility] 5 13:03:39 Acute non-ST segment elevatio n myocardi al infarcti on 543079882 Active 2023 hx of Sulma bean, [facility] 5 16:54:25 Hypoxia 416454545 Active 2023 LOLA bean, [facility] 5 14:02:43 Moderate mitral valve regurgit ation 914982172 Active 2023 LOLA bean, [facility] 5 14:02:43 Chronic diastoli c heart failure 687869952 Active 2023 LOLA bean, [facility] 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 5 14:02:42 Abnormal gait 62033864 Active 2024 LOLA bean, [facility] 5 14:02:43 Problem of aging 05298426 Active 2024 LOLA bean, [facility] 5 14:02:43 Ulcer of left heel Active 2024 Sulma Oconnell null, [facility] 5 16:54:49 Osteomye litis of forefoot 785279131 Active 2024 left great LOLA GUERRERO null, [facility] 5 14:41:55 Chronic atrial fibrilla tion 191418496 Active 2024 LOLA bean, [facility] 5 10:07:20 Neuropat hy due to type 2 diabetes mellitus 78539466327 9106 Active 2024 LOLA GUERRERO [facility], [facility] 5 10:07:20 Amputate d big toe 790852269 Active 2024 LOLA GUERRERO [facility] 5 10:07:19 Bacterem ia caused by Staphylo coccus aureus 868717126 Active 2024 LOLA GUERRERO [facility] [place] 5 10:07:33 Chronic systolic heart failure 608185486 Active 2024 NATY HAYES [facility] 5 12:59:50 Neuropat hy due to diabetes mellitus 151074165 Active 2024 NATY HAYES [facility] 5 13:02:04 Candidia sis of skin 79787721 Active 2024 LOLA GUERRERO [facility] 5 09:03:33 Problem Notes None recorded. Procedures Surgical History Date Name Laterality Status Provider Name and Address Organization Details Recorded Time 10/30/19 25 Amputation of toe completed LOLA GUERRERO [facility] 11/06/2024 14:09:58 11/18/19 23 Family Practice Trigger Point Injection completed Brady Lucio MD [address] [place] [address], [id number], [facility], [place] 11/17/2022 09:37:56 Cabg vein three completed LOLA GUERRERO [facility] [place] 07/17/2023 09:35:17 hysterectomy [facility]24 14:04:06 Imaging Results None recorded. Procedure Notes None recorded. Medical Equipment None Reported. Allergies No known drug allergies Medications Name Sig Start Date Stop Date Status Note LastModified by Organization Details LastModified Time nebulizer elit pacifc USE DIRECTED active Not Available Not Available No t Available furosemid e 40 mg tablet TAKE ONE TABLET BY MOUTH DAILY active Not Available Not Available No t Available biotin 10 mg tablet 1 daily active Not Available Not Available No t Available atorvasta tin 40 mg tablet TAKE ONE TABLET BY MOUTH at bedtime for 30 DAYS active Not Available Not Available No t Available atorvasta tin 80 mg tablet TAKE ONE TABLET BY MOUTH DAILY active Not Available Not Available No t Available gabapenti n 600 mg tablet TAKE ONE TABLET BY MOUTH DAILY active Not Available Not Available No t Available doxycycli ne hyclate 100 mg capsule Take 1 capsule twice a day by oral route for 10 days. 09/30 completed Not Available Not Available Not Available albuterol sulfate 2.5 mg/3 mL (0.083 %) solution for nebulizat ion NEBULIZE 1 VIAL THREE TIMES DAILY NEEDED SHORTNES S OF BREATH OR WHEEZING active Not Available Not Available No t Available amiodaron e 200 mg tablet TAKE ONE TABLET BY MOUTH DAILY active Not Available Not Available No t Available metoprolo l succinate ER 50 mg tablet,ex tended release 24 hr TAKE ONE TABLET BY MOUTH DAILY 08/13 completed Not Available Not Available Not Available cephalexi n 250 mg capsule TAKE ONE CAPSULE BY MOUTH EVERY TWELVE HOURS FOR EIGHT DOSES 03/28 completed Not Available Not Available Not Available hydrocodo ne 5 mg-acetam inophen 325 mg tablet TAKE ONE TABLET BY MOUTH EVERY TWELVE HOURS NEEDED FOR PAIN 11/25 completed Not Available Not Available Not Available prednison e 20 mg tablet take 2 tablets BY MOUTH DAILY for THREE DAYS 06/17 completed Not Available Not Available Not Available isosorbid e mononitra te ER 30 mg tablet,ex tended release 24 hr 06/05 completed Not Available Not Available Not Available clopidogr el 75 mg tablet TAKE 1 TABLET EVERY DAY active Not Available Not Available No t Available ciproflox acin 250 mg tablet TAKE ONE TABLET BY MOUTH EVERY TWELVE HOURS FOR 3 DAYS 03/29 completed Not Available Not Available Not Available ciproflox acin 500 mg tablet TAKE 1 TABLET BY MOUTH TWICE DAILY FOR 14 DAYS active Not Available Not Available No t Available aspirin 81 mg tablet,de layed release TAKE ONE TABLET BY MOUTH DAILY active Not Available Not Available No t Available doxycycli ne monohydra te 100 mg tablet TAKE ONE TABLET BY MOUTH TWICE DAILY 08/13 completed Not Available Not Available Not Available tramadol 50 mg tablet TAKE ONE TABLET BY MOUTH EVERY 6 HOURS active Not Available Not Available No t Available triamcino lone acetonide 0.1 % topical cream apply to affected area three times daily until resolved 03/29 completed Recorded 07/23/19 22 7:06AM by Naty Hayes LPN, Office Visit; Refill Quantity : 0; Not Available Not Available Not Available spironola ctone 25 mg tablet TAKE ONE TABLET BY MOUTH DAILY 08/13 completed Not Available Not Available Not Available betametha sone acetate and sodium phos 6 mg/mL suspensio n for injection Take 6 mg every day by injectio n route for 1 day. 09/13 completed Not Available Not Available Not Available oxycodone -acetamin ophen 5 mg-325 mg tablet TAKE ONE TABLET BY MOUTH EVERY 6 HOURS NEEDED FOR PAIN 11/17 completed Not Available Not Available Not Available isosorbid e mononitra te ER 60 mg tablet,ex tended release 24 hr 1 tablet daily 2024 active Recorded 07/23/19 22 7:06AM by Naty Hayes LPN, Office Visit; Mail Order Quantity : 90 Tablet; Mail Order Days: 90 Days; Refill Quantity : 90; Tablet; Not Available Not Available Not Available potassium chloride ER 20 mEq tablet,ex tended release(p art/cryst ) TAKE ONE TABLET BY MOUTH DAILY active Not Available Not Available No t Available Diflucan 100 mg tablet Take 1 tablet every day by oral route for 14 days. 2024 active Not Available Not Available Not Avai lable linezolid 600 mg tablet TAKE 1 TABLET BY MOUTH TWICE DAILY FOR 14 DAYS active Not Available Not Available No t Available Triple Antibioti c 3.5 mg-400 unit-5,00 0 unit/gram topical ointment APPLY TOPICALL Y TO THE AFFECTED AREA TWICE DAILY active Not Available Not Available No t Available calcitoni n (salmon) 200 unit/actu ation nasal spray USE ONE SPRAY IN ALTERNAT ING NOSTRIL DAILY 11/17 completed Not Available Not Available Not Available gemfibroz il 600 mg tablet TAKE ONE TABLET BY MOUTH TWICE DAILY active Not Available Not Available No t Available pantopraz ole 40 mg tablet,de layed release TAKE ONE TABLET BY MOUTH DAILY 08/13 completed Not Available Not Available Not Available prednison e 50 mg tablet TAKE ONE TABLET BY MOUTH DAILY active Not Available Not Available No t Available losartan 25 mg tablet TAKE ONE TABLET BY MOUTH DAILY active Not Available Not Available No t Available nitroglyc mc 0.4 mg sublingua l tablet DISSOLVE 1 TABLET UNDER THE TONGUE EVERY 5 MINUTES NEEDED FOR CHEST PAIN. DO NOT EXCEED A TOTAL OF 3 DOSES IN 15 MINUTES. active Not Available Not Available No t Available levofloxa ronny 750 mg tablet TAKE ONE TABLET BY MOUTH EVERY 48 HOURS FOR FIVE DAYS 08/13 completed Not Available Not Available Not Available amoxicill in 875 mg-potass ium clavulana te 125 mg tablet 06/17 completed Not Available Not Available Not Available insulin aspart (U-100) 100 unit/mL (3 mL) subcutane ous pen USE DIRECTED PER SLIDING SCALE MAXIMUM DAILY OF 30 UNITS active Not Available Not Available No t Available metoprolo l tartrate 25 mg tablet TAKE 1/2 TABLET BY MOUTH TWICE DAILY AT 9AM AND 9PM active Not Available Not Available No t Available nitrofura ntoin monohydra te/macroc rystals 100 mg capsule TAKE ONE CAPSULE BY MOUTH EVERY TWELVE HOURS FOR 10 DAYS 03/29 completed Not Available Not Available Not Available lidocaine HCl apply to affected area twice a day 03/29 completed VO CH/kh; Recorded 11/11/19 18 10:24AM by Katrina Castanon RN, Office Visit; Mail Order Quantity : 1 Tube; Refill Quantity : 1; Tube; Not Available Not Available Not Available Lipitor at bedtime 03/29 completed 436; Recorded 07/23/19 22 7:06AM by Naty Hayes LPN (Authori marilee through Brady Lucio MD), Office Visit; Mail Order Quantity : 90 Tablet; Mail Order Days: 90 Days; Refill Quantity : 30; Tablet; Not Available Not Available Not Available gelatin daily 08/15 completed 0; Recorded 05/10/20 22 1:07PM by Lola Guerrero LPN, Office Visit; Not Available Not Available Not Available gabapenti n at bedtime 03/29 completed 436; Recorded 03/21/20 3:05PM by Lola Guerrero LPN (Authori marilee through Brady Lucio MD), Refill Request; Mail Order Quantity : 90 Tablet; Mail Order Days: 90 Days; Refill Quantity : 90; Tablet; Not Available Not Available Not Available Vitamin daily 03/29 completed 0; Recorded 05/10/20 22 1:07PM by Lola Guerrero LPN, Office Visit; Not Available Not Available Not Available Insulin Syringe two times daily 06/02 completed Recorded 05/10/20 22 1:07PM by Lola Guerrero LPN, Office Visit; Mail Order Quantity : 180 Each; Mail Order Days: 90 Days; Refill Quantity : 0; Not Available Not Available Not Available ranolazin e ER 500 mg tablet,ex tended release,1 2 hr TAKE TWO TABLETS BY MOUTH TWICE DAILY 08/13 completed Not Available Not Available Not Available Levemir FlexPen 100 unit/mL (3 mL) solution subcutane ous insulin pen Inject 30 units every day by subcutan eous route. 05/11 completed Not Available Not Available Not Available Symbicort 80 mcg-4.5 mcg/actua tion HFA aerosol inhaler INHALE 1 PUFF INTO LUNGS TWICE DAILY active Not Available Not Available No t Available ranolazin e ER 1,000 mg tablet,ex tended release,1 2 hr TAKE ONE TABLET BY MOUTH TWICE DAILY active Not Available Not Available No t Available Accu-Chek Spirit Pouch three times daily 08/15 completed Recorded 10/14/19 4:40PM by Brady Lucio MD, Refill Request; Mail Order Quantity : 1 Each; Refill Quantity : 0; Not Available Not Available Not Available TRUEplus Lancets 33 gauge active Not Available Not Available Not Available Eliquis 2.5 mg tablet TAKE ONE TABLET BY MOUTH TWICE DAILY START TONIGHT AT 9PM active Not Available Not Available No t Available MediHoney (honey) 80 % topical gel Apply 1 applicat ion every day by topical route for 30 days. 2024 active Not Available Not Available Not Avai lable True Metrix Glucose Test Strip Take 1 strip 3 times a day by miscell. route for 90 days. active Not Available Not Available No t Available True Metrix Level 1 solution active Not Available Not Available Not Available True Metrix Air Glucose Meter three times daily active Not Available Not Available No t Available Entresto 24 mg-26 mg tablet TAKE ONE TABLET BY MOUTH TWICE DAILY active Not Available Not Available No t Available insulin degludec (U-100) 100 unit/mL (3 mL) subcutane ous pen INJECT 30 UNITS UNDER SKIN DAILY active Not Available Not Available No t Available Tresiba FlexTouch U-200 insulin 200 unit/mL (3 mL) subcutane ous pen INJECT 27 UNITS UNDER SKIN DAILY active Not Available Not Available No t Available losartan potassium (bulk) daily 03/29 completed VO CH/bn; 436; Recorded 07/23/19 22 7:06AM by Naty Hayes LPN (Authori marilee through Brady Lucio MD), Office Visit; Mail Order Quantity : 90 Tablet; Mail Order Days: 90 Days; Refill Quantity : 90; Tablet; Not Available Not Available Not Available DropSafe Alcohol Prep Pads Apply 1 pad 3 times a day by topical route. active Not Available Not Available No t Available Vitals Date Recorded Body height Body temperature Heart rate Oxygen saturation Oxygen saturation in Arterial blood by Pulse oximetry Inhaled oxygen flow rate Systolic And Diastolic Provider Name and Address Organization Details Last Updated DateTime 5 149.86 cm 97.5 [degF] 77 /min 92 % 92 % 2 L/min 126/72 mm[Hg] Sulma Oconnell [facility] 5 13:45:41 Date Recorded Body height Body mass index (BMI) Body weight Oxygen saturation Oxygen saturation in Arterial blood by Pulse oximetry Heart rate Respiratory rate Body temperature Systolic And Diastolic Provider Name and Address Organization Details Last Updated DateTime 5 149.86 cm 33.1 kg/m2 14871.1 5 g 95 % 95 % 74 /min 14 /min 98.6 [degF] 146/76 mm[Hg] NATY HAYES [facility] 5 14:42:51 Date Recorded Body height Body mass index (BMI) Body weight Oxygen saturation Oxygen saturation in Arterial blood by Pulse oximetry Heart rate Respiratory rate Body temperature Systolic And Diastolic Provider Name and Address Organization Details Last Updated DateTime 5 149.86 cm 32.9 kg/m2 20672.5 6 g 96 % 96 % 72 /min 16 /min 98.4 [degF] 110/57 mm[Hg] LOLA GUERRERO [facility] 5 10:05:43 Date Recorded Body height Body mass index (BMI) Body weight Oxygen saturation Oxygen saturation in Arterial blood by Pulse oximetry Heart rate Respiratory rate Body temperature Systolic And Diastolic Provider Name and Address Organization Details Last Updated DateTime 5 149.86 cm 32.9 kg/m2 47158.5 6 g 90 % 90 % 74 /min 14 /min 97.6 [degF] 95/71 mm[Hg] NATY HAYES [facility] 5 12:54:36 Social History Question Answer Notes LastModified by Sicubo Details LastModified Time Tobacco Smoking Status Never Smoker LOLA GUERRERO [facility] 07/17/2023 09:33:08 What Was The Date Of Your Most Recent Tobacco Screening? 11/19/2024 [email or web address] Information not available 11/19/2024 What Is Your Relationship Status? [email or web address] Information not available 07/17/2023 Sex: Unknown Functional Status Question Answer Note LastModified by Sicubo Details LastModified Time Do you use any illicit or recreational drugs? No [email or web address] Information not available 07/17/2023 Do you or have you ever used any other forms of tobacco or nicotine? No [email or web address] Information not available 07/17/2023 What is your level of alcohol consumption? None Information not available 07/17/2023 Mental Status None recorded. Family History Nothing Reported. Medical History No medical history recorded. Gynecological HistoryNo gynecological history recorded. Obstetrics History GPAL:G -1 P 0 0 0 0 Immunizations Vaccine Type Date Status Note Provider Nam e and Address Organization Details Recorded Time zoster recombinant 2 completed [facility] 10/27/2022 15:50:04 zoster recombinant 1 completed [facility] 10/27/2022 15:50:04 COVID-19, mRNA, LNP-S, PF, 100 mcg/0.5mL dose or 50 mcg/0.25mL dose 1 completed [facility] 10/27/2022 15:50:04 COVID-19, mRNA, LNP-S, PF, 100 mcg/0.5mL dose or 50 mcg/0.25mL dose 1 completed [facility] 10/27/2022 15:50:04 COVID-19, mRNA, LNP-S, PF, 100 mcg/0.5mL dose or 50 mcg/0.25mL dose 2 completed [facility] 10/27/2022 15:50:04 COVID-19, mRNA, LNP-S, PF, 100 mcg/0.5mL dose or 50 mcg/0.25mL dose 1 completed [facility] 10/27/2022 15:50:05 pneumococcal polysaccharide PPV23 6 completed [facility] 10/27/2022 15:50:05 Tdap 4 completed [facility] 10/27/2022 15:50:05 Influenza, high-dose, trivalent, PF 9 completed MARCO bean [facility] [place] 10/27/2022 15:50:05 zoster live 2 completed Not Available [facility] 05/11/2023 11:04:16 zoster live 1 completed Not Available [facility] 05/11/2023 11:04:16 Pneumococcal conjugate PCV 13 5 completed Not Available [facility] 05/11/2023 11:04:16 Influenza, split virus, trivalent, preservative 5 completed Not Available [facility] 05/11/2023 11:04:16 Influenza, split virus, trivalent, preservative 8 completed Not Available [facility] 05/11/2023 11:04:16 Influenza, split virus, trivalent, preservative 1 completed Not Available [facility] 05/11/2023 11:04:16 Influenza, split virus, trivalent, preservative 7 completed Not Available [facility] 05/11/2023 11:04:16 Influenza, high-dose, quadrivalent, PF 3 completed LOLA bean [facility] 07/31/2023 14:35:31 Influenza, split virus, quadrivalent, PF 4 completed OLLA bean [facility] 08/13/2024 14:01:11 Past Encounters Encounter ID Performer Location Encounter Start Date Encounter Closed Date Diagnosis/Indication Diagnosis SNOMED-CT Code Diagnosis ICD10 Code Diagnosis Note HEVER PETERSON [facility] ([facility]) [address] [place] [address] 10/27/2022 15:15:41 11/08/2022 13:37:30 Acute upper respiratory infection 49119816 J06.9 Start doxycyclin e BID today. Encouraged patient to push fluids and use cool mist humidifier at night. Can take tylenol as needed for pain and fever. Encouraged patient to use inhaler as needed, however patient declined script for albuterol, stating I do not have the patience for that . Discussed with patient that due to her uncontroll ed sugar levels, as told by patient, steroids would not be an appropriat e choice at this time. Encouraged patient to return for further evaluation if no improvemen t in 3-5 days. If severe SOB or chest pain occurs, go to ED. Patient verbalized understand [place]. [id number] Brady Lucio MD [facility] ([facility]) [address] [place] [phone] 11/17/2022 08:57:12 11/17/2022 10:08:07 Diabetic peripheral neuropathy 506800588 E11.40 Hyperparathyroidism 6699 9008 E21.3 Hyperlipidemia 46820829 E78.5 Essential hypertension 30834030 I10 Coronary atherosclerosis 726281631 I25.119 History of coronary artery bypass grafting 170792377 Z95.1 Chronic ki dney disease stage 3A 685671254 N18.31 Foot callus 539206365 L8 4 Deformity of foot 691193 004 M21.969 Allergic rhinitis 331499 04 J30.9 [id number] Brady Lucio MD [facility] ([facility]) [address] [place] [phone] 11/25/2022 09:41:35 11/25/2022 11:14:41 Dysuria 22479593 R30.0 Acute cystitis 50755298 N30.00 [id number] OFELIA NUNO NP [facility] ([facility]) [address] [place] [phone] 12/12/2022 09:53:22 12/12/2022 11:31:32 Dysuria 83290735 R30.0 Discussed UA results in clinic todayUrine culture ordered - will notify of any resultsEdu cated patient on increasing PO fluids of water, decreasing caffeine (coffee) and sugary drinks.Dis cussed importance of avoiding baths, scented soaps, douching, perfumes.M ay take OTC AZO for 1-2 days as box directs for burning sensation. Discussed if developmen t of abdominal pain, flank pain, fever, vomiting, worsening symptoms return to walk-in, PCP or ED for re-evaluat ion. Return to clinic if any changes, any worsening, any concernsPa tient verbalized understand ing of plan. [id number] Brady Lucio MD [facility] ([facility]) [address] [place] [id number] 03/29/2023 10:49:54 04/06/2023 22:41:13 Pain in left foot 1270046618 51283 M79.672 well, we discussed that her xray does not show a fx. she has bruised her foot and it should heal. however, i did d/w her the needle or needle fragment that is in her foot. there is no sign of recent entry. there is no inflammati on of the sight nor can i feel the needle. she has no pain in the area of the needle. we had a good discussion about it. it is likley quite chronic and is not causing sx and she does not desire removal at this time. if any sx arise she may rethink that. however, i think this is a reasonable approach. she reports good sensatio nof the feet on exam Type 2 abena betes mellitus 37396110 E11.9 [id number] Brady Lucio MD [facility] ([facility]) [address] [place] [phone] 05/11/2023 11:04:00 05/11/2023 12:52:05 Coronary atherosclerosis 331962009 I25.119 Hyperparathyroidism 6699 9008 E21.3 Neuropathy due to type 2 diabetes mellitus 1436788346 45028 E11.40 [id number] Brady Lucio MD [facility] ([facility]) [address] [place] [id number] 5 07/31/2023 13:32:04 07/31/2023 15:08:04 Coronary atherosclerosis 418956166 I25.119 Diabetic p eripheral neuropathy 717606852 E11.40 Essential hypertension 56971519 I10 Hyperlipidemia 92416054 E78.5 Hyperparathyroidism 6699 9008 E21.3 Hyperparat hyroidism due to renal insufficiency 31448797 N25.81 [id number] Brady Lucio MD [facility] ([facility]) [address] [place] [id number] 09/08/2023 11:13:45 09/08/2023 12:44:27 Diabetes mellitus 29735898 E11.65 Coronary atherosclerosis 849242846 I25.119 Acute non- ST segment elevation myocardial infarction 248835548 I21.[address] percutaneous transluminal coronary angioplasty 320791832 Z98.61 Chronic ki dney disease stage 3A [id number] N18.31 Hyperlipidemia 18581718 E78.5 Hypoxia 589518663 R09.02 requiring oxygen on discharge but hates it and wants it gone. 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 advised to return around 02/28/24 to reassess for complicate d coronary interventi on. it was canceled. she does not know why or by whom. however hospital notes here note that she has been deemed not a good interventi onal candidate and that is very likely true. will not pursue further referral to [facility] per previous howard and iman' s desire to be treated medicall expressed at this itwa. 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 advised to return around 02/28/24 to reassess for complicate d coronary interventi on. it was canceled. she does not know why or by whom. however hospital notes here note that she has been deemed not a good interventi onal candidate and that is very likely true. will not pursue further referral to [facility] per previous eval and iman' s desire to be treated medicall expressed at this itme. 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 3487652961 9107 I13.0 Dependence on supplemental oxygen 5584740461 07 Z99.81 Abnormal gait 54624928 R 26.2 Reduced mobility 6124119 Z74.09 Problem of aging 5653226 1 R54 Dependence on enabling machine or device 013075776 Z99.89 Healthcare associated bacterial pneumonia 522597618 Y95 [id number] Brady Lucio MD [facility] ([facility]) [address] [place] [address] [phone] 5 08/13/2024 13:26:53 08/14/2024 07:51:58 Atrial fibrillation 06567474 I48.91 Acute on c hronic diastolic heart failure 306272217 I50.33 Chronic di astolic heart failure 993867814 I50.32 the dog ate my lasix i can't find it. Coronary atherosclerosis 490402977 I25.119 Acute non- ST segment elevation myocardial infarction 258535313 I21.4 [id number] Brady Lucio MD [facility] ([facility]) [address] [place] [address] [phone] 5 08/22/2024 12:44:30 08/23/2024 07:36:08 Congestive heart failure 68849733 I50.9 we discusse her meds andteh imortance of entresto to prevent chf she fell last week adn has bruising adn ttp right mid foot Pain in right foot 39310 02773 35732 M79.778 [id number] Brady Lucio MD [facility] ([facility]) [address] [place] [address] [phone] 5 09/13/2024 12:11:46 09/13/2024 13:20:02 Ulcer of toe of left foot [id number] 4589758 L97.521 foam border dressing after cleansing, drying and adding medihoney once daily Ulcer of left heel 41813 65697 4222805 L97.653 [id number] Brady Lucio MD [facility] ([facility]) [address] [place] [address] [phone] 5 10/28/2024 12:58:46 10/30/2024 17:25:02 Infection of foot due to diabetes mellitus 365553808 E11.628 L08.9 Pain in left foot 441842 4771 36442 M79.672 known foreign body in the left foot is not likely contributi ng to today's issue. there is however signs of osteomyeli tis. she will need surgical debridemen t and i antibiotic s. instructed her to go directly to the er. her son is taking her. I have called the er. and he is expecting her. [id number] BEATRICE LUCIO PA-C [facility] ([facility]) [address] [place] [address] [phone] 5 11/13/2024 14:21:22 12/04/2024 07:42:45 Chronic systolic heart failure 463735717 I50.22 Chronic at rial fibrillation 515894698 I48.20 CBC/CMP 1 WEEK Neuropathy due to type 2 diabetes mellitus 7603965894 06976 E11.40 SS TO MODERATE Amputated big toe 336213 007 S98.112A Osteomyeli tis of forefoot 333369239 M86.9 ZYVOX, CIPRO Bacteremia caused by Staphylococcus aureus 198681351 R78.81 B95.61 Health Concerns Section Related Observation LastModified by Organization Detai ls LastModified Time None Recorded Concern Status LastModified by Organization Details LastModified Time None Recorded Advance Directives Directive None Recorded Payers Insurance Date Sequence Insurance Name Policy Number Policy Person Covered Member ID Person Member ID Guarantor Name 11/18/2024 1 RAULITO (MEDICARE REPLACEMENT/ ADVANTAGE - PPO) Iman Henderson [id number] Iman Henderson Notes Date Note Type Note Provider Name and Address Organization Details Recorded Time 5 text/html Musculoskeletal PainReported by PatientPt fell on Monday (3 days ago) while getting off the toilet. Pt states she mainly injured her left foot. She believes it may be broken, but wanted to have Dr. Lucio examine it instead of her immigration lawyer. She has redness in that foot and states the pain goes above her ankle on her left side.ROS as noted in the HPI Brady Lucio MD [address] [place], [address], [facility] 10/30/2024 16:21:52 5 text/html DiabetesReported by PatientHPIFor control, patient reportsusually poorly controlled. For compliance, patient reportsnoncompliant with medications,noncompliant with followup-visits,noncompl iant with diet, andnoncompliant with home glucose monitoring. For associated symptoms, patient reportsnumbness of feetandcalluses on feetbut reportsno weight gain,no weight loss,no dizziness, andno increased appetite. For duration, patient reportschronic.Complicat ions and Co-morbiditiesFor chronic complications, patient reportsdiabetic neuropathy: yes,prior foot ulcers: yes, andhistory of amputation: yes. new admit to [facility]. 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 she grew out staph in blood as wellPoorly controlled, noncomplaint diabetic at homeHx of Afib and CHF as well to complicate her case. Brady Lucio MD [address] [place], [address], [facility] 12/03/2024 09:32:06 5 text/html DiabetesReported by PatientHPIFor associated symptoms, patient reportsnumbness of feet (occasionally)but reportsno headaches,no confusion, andno blurred vision. For duration, patient reportschronic. For compliance, patient reportscompliant with medications,compliant with follow-up visits, andcompliant with home glucose monitoring. For review finger sticks, (pt states her blood sugars have been higher with the holidays, but she does not know the range). Hypertension IM/FMReported by PatientHPIFor quality, patient reportshere for check-up. For onset/timing, patient reportsgradual onset. For associated symptoms, patient reportsno shortness of breath,no headaches, andno chest pain. For severity, (pt does not check her bp at home).ROS as noted in the HPI Patient seen today by Dr. Lucio at [facility] Not Available Not Available Not Available 5 text/html Care Management - Congestive Heart Failure (CHF)Reported by PatientHPIFor associated symptoms, patient reportschest tightnessandfatigue. For self care, patient reportsblood pressure goal: 120/80. Not Available Not Available Not Available OBGyn Episode Ob Episode Information Episode Created Date Number of Fetuses Patient Bloodtype Patient rh Status Prepregnancy Weight lbs Domestic Partner Domestic Partner Phone Father Name Stone Banker Status 05/29/19 25 1 DELETED Fetus Data First Name Last Name Admitted to NICU Weight (g) Sex Living Outcome Pediatric Complications Fetus ID Race Codes Race Delivery Type [id number] Pablo Calculation Initial Pablo Date Initial Exam Date Initial Exam Provider Initial Ultrasound Date Last Menstrual Period Date Ultra Sound Weeks Gestation 05/29/2024 0 Eighteen To Twenty Week Pablo Update Ultra Sound Date Fundal Height At Umbil Quickening Date Ultra Sound Latest Weeks Gestation Final Pablo Confirmed By Final Pablo Confirmed Date Final Pablo Date Ultra Sound Latest Days Gestation 0 0 Menstrual History Last Menstrual Date Menses Monthly On Bcp Conception Prior Menses Frequency Hcg Plus Date Menarche Onset Age Delivery Information Delivery Date Delivery Type Labor Anesthesia Weeks Gestation Incision Type Labor Labor Length Hrs Delivered By Post Complications Tubal Sterilization Discharge Date Comments Discharge Information Feeding Method Contraceptive Method Maternal HG B and HCT Levels
--- OUTSIDE RECORDS SUMMARY | 2024-12-05 19:18 | XMS_ITS | Encounter Summary ---
Author Organization [facility] Address [address] [place] [address] Care Team Providers Care Pile Driver Operator Name Role Phone Thomas Nava DO Primary Care Provider [phone] Encounter Details Date Type Department Care Team (Late st Contact Info) Description 11/27/2024 External Device Data [facility] ABSTRACTION Provider, Abstract NO ADDRESS ON FILE Social History Tobacco Use Types Packs/Day Years Used Date Smoking Tobacco: Never Smokeless Tobacco: Never Alcohol Use Standard Drinks/Week Comments No 0 (1 standard drink = 0.6 oz pur e alcohol) Comments Unknown Sex and Gender Information Value Date Recorded Sex Assigned at Not on file 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
--- OUTSIDE RECORDS SUMMARY | 2024-12-05 19:18 | XMS_ITS | Clinical Summary ---
Author Organization [facility] Address [address] 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 Gender Identity Not on file Sexual Orientation [...] ) (1 - 1-dose 75+ series) 2017 DIABETES HBA1C Q 6 MONTHS 07/03/20242023, 12/27/2023, 07/11/2013 INFLUENZA VACCINE (#1) 2024 02/12/2013 Medical Devices Implanted Type Area Retail Director Device Identifier Shelf Expiration Date Model / Serial / Lot Dev Sealangio Vip 8fr [id number] - [id number] Implanted:Qty: 1 on 01/04/2024 by Colleen Junior MD at [facility] Closure Device N/A: Groin [employer] [id number] 07/06/2024 [id number] / / [id number] [place] Ptfe Thck 1.6mmx2.5x2.5c m [id number] - Sn/A Implanted:Qty: 1 on 07/12/2013 G[employer] 04/11/2018 [id number] / N/A / [id number] Procedures Procedure Name Priority Date/Time Associated Diagnosis Comments HEMOGLOBIN A1C Routine 01/01/2024 4:47 AM CDT from Last 3 Months or Most Recently Relevant to Health Maintenance Results * (ABNORMAL) HEMOGLOBIN A1C (01/01/2024 4:47 AM CDT) HEMOGLOBIN A1C 8.1(H) <=5.6 % 01/03/2024 12:13 PM CDT [facility] EST. AVG GLUCOSE, A1C 186 mg/dL 01/03/2024 12:13 PM CDT [facility] Blood Venipuncture / Unknown 01/01/2024 4:47 AM CDT 01/01/2024 5:04 AM CDT Narrative [facility] [place] [facility] - 01/03/2024 12:13 PM CDT HGB A1C INTERPRETATION NORMAL: <5.7% PRE-DIABETES: 5.7 - 6.4% DIABETES: 6.5% OR GREATER us Priyank Loving MD CHEMISTRY ORDERABLES Final Res ult [facility] [place] [facility] CLIA # [id number] [address] [place] [address] from Last 3 Months or Most Recently Relevant to Health Maintenance Insurance HUMAN PPO MCR Advance Directives For more information, please contact: [phone] * Full Code (Latest Code Status on File) Date Activated Date Inactivated Comments 12/31/2023 12:58 PM 01/05/2024 4:45 PM Care Teams Filtration Plant Mechanic Relationship Specialty Start Date End Date Thomas Nava DO [address] [place] [address] PCP - General Family Practice 06/26/13
--- OUTSIDE RECORDS SUMMARY | 2024-12-05 19:19 | XMS_ITS | Patient Health Record ---
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) Active confirmed Problem Acquired spondylolisthesis (023676938) Spondylolisthe sis, lumbar region (M43.16) Active confirmed Problem Thoracic spondylosis without myelopathy (967384289) Spondylosis without myelopathy or radiculopathy, thoracic region (M47.814) Active confirmed Problem Spinal stenosis of thoracic region (29911073) Spinal stenosis, thoracic region (M48.04) Active confirmed Problem Pain in thoracic spine (993501688) Pain in thoracic spine (M54.6) Active confirmed Problem Myalgia (78277779) Myalgia (M79.1) Active confirmed Problem Closed fracture thoracic vertebra (905739584) Unspecified fracture of T9-T10 vertebra, initial encounter for closed fracture (S22.079A) Active confirmed Problem Fracture of vertebral column (05653821) Unspecified fracture of T11-T12 vertebra, initial encounter for closed fracture (S22.089A) Active confirmed Problem Long-term current use of drug therapy (419219738) Other senior living (current) drug therapy (Z79.899) Active confirmed Plan Of Treatment No Information Insurance Providers Payer Name Payer Address Payer Phone Subscriber Number Group Number Insured Name Patient Relationship to Insured Coverage Start Date Coverage End Date [employer] G[employer]ICE [address] [address] [place] [address] [id number] Sally Henderson Self - patient is the [...] bypass surgery with catarina otero, performed at [facility] in [place], [place], 06/2013
[2024-12-05 19:34] LABS: Lactic Sepsis W/Reflex 3.0 mmol/L (0.5-2.2)
[2024-12-05] MEDS: methylPREDNISolone sod succ 125 mg/2 mL INJ IVP (19:37)
[2024-12-05 19:38] LABS: Troponin(5th) Baseline 61 ng/L (0-10)
[2024-12-05 19:45] LABS: Alanine Aminotransferase 36 U/L (0-33); Albumin Level 3.4 g/dL (3.5-5.2); Alkaline Phosphatase 110 U/L (35-105); Anion Gap 16.8 (5-19); Aspartate Amino Transferase 15 U/L (0-32); Blood Urea Nitrogen 20 mg/dL (8-23); Calcium 8.9 mg/dL (8.5-10.5); Carbon Dioxide 27 mmol/L (22-29); Chloride 101 mmol/L (98-107); Globulin 2.9 g/dL (1.3-4.6); Glucose 275 mg/dL (65-115); Osmolality Calculated 302 mOsm/kg (285-295); Potassium 4.8 mmol/L (3.5-5.1); Sodium 140 mmol/L (136-145); Total Protein 6.3 g/dL (6.6-8.7)
[2024-12-05] MEDS: ondansetron 2 mg/ML SDV 2 mL 4 MG IVP (19:46)
[2024-12-05] MEDS: morphine 4 mg/mL SDV 1 mL 2 MG IVP (19:47)
[2024-12-05 20:00] LABS: ABG PCO2 44.7 mmHg (35-45); ABG PH Result 7.39 (7.35-7.45); Arterial Blood Gas Hematocrit 28.0 % (37-47); Blood Gas Allen Test Pos; Blood Gas LPM 2.0 %; Blood Gas Operator Identificat gerca; Blood Gas Sample Type Venous; Carboxyhemoglobin 5.0 %THgb (0.4-20.1); Glucose Level-ABG 222.0 mg/dL (70-115); HCO3 ABG 26.8 mmol/L (22-26); Ionized Calcium Level - ABG 1.1 mmol/L (1.1-1.4); Methemoglobin 0.8 % (0.4-1.5); Oxygen Saturation ABG 88.4; PO2 ABG 54.1 mmHg (80.0-100.0); PO2 FiO2 Ratio Arterial Blood 193; Potassium Level - ABG 4.4 mmol/L (3.5-5.0); Sodium Level - ABG 141.0 mmol/L (131-143)
[2024-12-05 20:14] LABS: NT Pro B Type Natriuretic Pept 22980 pg/mL (0-450)
[2024-12-05] MEDS: FUROsemide 10 mg/mL SDV 4mL 40 MG IVP (20:33)
--- NOTE | 2024-12-05 20:57 | ECG_ITS ---
[employer] Winning Pitch Test Date: 2024-12-05 Pat Name: Sally Henderson Department: Room: Gender: Female Instructional Services Specialist: : [id number] Requested By: Linnette Benavidez Order Number: [id number] Leonora MD: Boaz Jaramillo M.D. Measurements Intervals [place] Rate: 60 P: 63 IN: 166 QRS: -42 QRSD: 114 T: 156 QT: 380 QTc: 380 Interpretive Statements SINUS RHYTHM LEFT AXIS DEVIATION [QRS AXIS < -30] LOW QRS VOLTAGE IN PRECORDIAL LEADS [QRS DEFLECTION < 1.0 mV IN CHEST LEADS] PATTERN CONSISTENT WITH PULMONARY DISEASE MODERATE INTRAVENTRICULAR CONDUCTION DELAY [110+ ms QRS DURATION] NONSPECIFIC ST & T-WAVE ABNORMALITY Compared to ECG 12/05/2024 19:17:20 Left-axis deviation now present T-wave abnormality now present Sinus arrhythmia no longer present Indeterminate axis no longer present ST (T wave) deviation no longer present Electronically Signed On 12-07-2024 08:51:55 CDT by Boaz Jaramillo M.D. [email or web address]
[2024-12-05 21:04] LABS: Reflex Lactate Order REFLEX LACTIC ORDERD
[2024-12-05] MEDS: doxycycline 100 MG in sodium chloride 0.9% (plus) 100 ML IV (21:49)
--- NOTE | 2024-12-05 21:56 | PM.HP ---
Providers/Chief Complaint Admitting Physician: Tara Munguia MD Primary Care Provider: Antonio Delgado MD Chief Complaint: SOB History of Present Illness Sally Henderson is a 84 year old female with medical history significant for CHF and who had been admitted recently in October for a left great toe gangrenous toe with osteomyelitis. Patient was status post left great toe amputation and has exhibited poor wound healing since then. She was initially in a fci but signed out AMA. She has been managing at home, states that she has been mostly using her wheelchair to get around. She presented to the emergency room today due to complaints of shortness of breath and increased work of breathing. Additionally she has noticed her wound to be getting worse at the surgical site. Bandages were removed today and maggots were encountered. Additionally there is a wound over her heel which appears to be concerning. She has been compliant with her Lasix dosing at home. Denies any current chest pain palpitations or syncope. Review of Systems General: Reports: 10 or more systems reviewed and unremarkable except in HPI and below Const: Denies: fever(s), chills or body aches Eyes: Denies: change in vision, blurry vision or photophobia ENMT: Reports: hoarseness; Denies: throat pain, enlarged tonsils, odynophagia or nasal congestion Card: Denies: chest pain, palpitations, irregular heart rhythm, edema, swelling of feet/ankles, lightheadedness, pre-syncope, dyspnea on exertion or orthopnea Resp: Denies: dyspnea, productive cough, non-productive cough, wheezing, stridor, pain on inspiration, change in phlegm color, hemoptysis or chest congestion GI: Denies: abdominal pain, nausea, vomiting, hematemesis, coffee ground emesis, dysphagia, heartburn, diarrhea, constipation, GI cramping, change in stool character, hematochezia or melena : Denies: flank pain, difficulty voiding, dysuria, urinary frequency, urinary urgency, urinary hesitancy or hematuria Musc: Denies: neck pain, back pain, extremity pain, joint swelling, joint warmth or deformity Neuro: Denies: headache(s), numbness in extremities, weakness in extremities, sensory changes, difficulty walking, frequent falls, dizziness, vertigo, behavioral changes, Slurred speech present or seizure-like activity Psych: Denies: anxiety, depression, suicidal ideation or homicidal ideation Endo: Denies: polyuria, polydipsia, tired all the time, cold intolerance or hot flashes Saeid/Lymph: Denies: easy bruising or easy bleeding Medications/Allergies Home Medications ?Medication ?Instructions ?Recorded ?Confirmed ?Last Taken ?Type clopidogrel 75 mg tablet 75 mg PO BEDTIME #90 tabs 03/27/24 11/28/24 11/01/24 Rx nitroglycerin 0.4 mg sublingual 0.4 mg buccal PRN PRN Chest Pain 04/10/24 11/28/24 Unknown History tablet furosemide 40 mg tablet 40 mg PO BID@0800,1400 30 days #60 05/28/24 11/28/24 11/02/24 Rx tabs insulin aspart U-100 100 unit/mL See Rx Instructions .Route 06/11/24 11/28/24 11/02/24 Rx (3 mL) subcutaneous pen (Novolog .COMPLEX #15 mL FlexPen U-100 Insulin aspart) amiodarone 200 mg tablet 200 mg PO DAILY 07/18/24 11/28/24 11/02/24 History atorvastatin 40 mg tablet 40 mg PO QPM 07/18/24 11/28/24 11/01/24 History tramadol 50 mg tablet 50 mg PO Q6H PRN Pain 07/18/24 11/28/24 10/28/24 History budesonide-formoterol HFA 80 1 inh inhalation BID #10.2 grams 07/23/24 11/28/24 11/02/24 Rx mcg-4.5 mcg/actuation aerosol inhaler (Symbicort) nebulizer and compressor ([id number] #1 ea 07/23/24 11/28/24 Unknown Rx Nebulizer) sacubitril 24 mg-valsartan 26 mg 1 tab PO BID #60 tabs 07/25/24 11/28/24 11/02/24 Rx tablet (Entresto) aspirin 81 mg tablet,delayed 81 mg PO DAILY #30 tabs 08/07/24 11/28/24 11/02/24 Rx release neomycin-bacitracn Zn-polymyx 3.5 1 applic topical BID #30 grams 08/07/24 11/28/24 11/01/24 Rx mg-400 unit-5,000 unit/gram top oint (Triple Antibiotic) potassium chloride 20 mEq 10 meq (1/2 x 20 mEq) PO DAILY #30 08/07/24 11/28/24 11/02/24 Rx tablet,extended release(part/cryst) tabs albuterol sulfate 2.5 mg/3 mL 2.5 mg continuous nebulization TID 10/29/24 11/28/24 11/02/24 History (0.083 %) solution for nebulization PRN Shortness Of Breath insulin degludec 200 unit/mL (3 27 unit SUBCUT DAILY 10/29/24 11/28/24 11/02/24 History mL) subcutaneous pen (Tresiba FlexTouch U-200 insulin) ranolazine 1,000 mg 1,000 mg PO BID 11/03/24 11/28/24 11/02/24 History tablet,extended release,12 hr apixaban 5 mg tablet (Eliquis) 2.5 mg (1/2 x 5 mg) PO 11/06/24 11/28/24 Unknown Rx BID@0900,2100 30 days #30 tabs pantoprazole 40 mg tablet,delayed 40 mg PO BID 30 days #60 tabs 11/06/24 11/28/24 Unknown Rx release sucralfate 100 mg/mL oral 1 g (10 mL) PO BID 30 days #600 mL 11/06/24 11/28/24 Unknown Rx suspension CAM walker #1 ea 11/28/24 11/28/24 Unknown Rx doxycycline hyclate 100 mg capsule 100 mg PO BID 10 days #20 caps 11/28/24 11/28/24 Unknown Rx Allergies Allergy/AdvReac Type Severity Reaction Status Date / Time No Known Allergies Allergy Verified 11/28/24 14:09 PFSH Acute PFSH: Medical History Dyslipidemia Essential (primary) hypertension COPD (chronic obstructive pulmonary disease) Chronic hypoxic respiratory failure, on home oxygen therapy Diabetes mellitus, type II, insulin dependent CAD (coronary artery disease) Paroxysmal A-fib CKD (chronic kidney disease) CHF (congestive heart failure) Respiratory arrest has required intubation Non-STEMI (non-ST elevated myocardial infarction) Contrast-induced nephropathy Surgical History Hx of hysterectomy Hx of CABG Family History Unknown No problems noted. Social History Smoking and tobacco/nicotine status: former use of tobacco/nicotine Alcohol intake: never Substance/Drug Use: never Vitals/I&O/Wt Last Vital Signs Temp 98.3 F 12/05/24 19:01 Pulse 58 L 12/05/24 21:52 Resp 25 H 12/05/24 19:51 BP 102/39 12/05/24 21:52 Pulse Ox 92 12/05/24 21:52 O2 Del Method Nasal Cannula 12/05/24 21:52 O2 Flow Rate 2 12/05/24 19:50 Physical Exam Narrative: General: No acute distress, AO x3 HEENT: PERRLA, pupils bilaterally equal and reactive, pallors not present Chest: Normal vesicular breath sounds, no added sounds, equal good air entry bilaterally CVS: S1-S2 regular, no murmurs, no tachycardia, no gallops, no rubs Abdomen: Soft, nontender, no organomegaly, bowel sounds present Neuro: No focal deficits, no facial deformity, AO x3, power 5/5 in all limbs Extremities: Noted wound dehiscence over surgical site over left foot at site of great toe amputation. Abundant necrotic material was encountered which was cleaned when the wound was redressed. Per nursing report there were maggots encountered in the wound. Additional wound noted over her left heel posteriorly. Data 12/06/24 01:05 12/06/24 01:05 Micro: Microbiology 12/05/24 19:35 Blood Culture - Preliminary Blood SPECIMEN COLLECTED 12/05/24 19:33 Blood Culture - Preliminary Blood SPECIMEN COLLECTED Other data: Radiology Impressions Chest X-Ray 12/05/24 18:57 IMPRESSION: 1. Bilateral atelectasis, cannot exclude a superimposed infectious process. 2. Small bilateral pleural effusions. Laboratory Results WBC 10.58 10^3/uL (3.29-11.43) 12/06/24 01:05 RBC 3.60 10^6/uL (3.85-5.65) L 12/06/24 01:05 Hgb 9.30 g/dL (11.27-16.99) L 12/06/24 01:05 Hct 30.0 % (36-47) L 12/06/24 01:05 MCV 83.3 fl (85-98) L 12/06/24 01:05 MCH 25.8 pg (27-33) L 12/06/24 01:05 MCHC 31.0 g/dL (30-55) D 12/06/24 01:05 RDW 19.1 % (12.1-15.1) H 12/06/24 01:05 Plt Count 325 10^3/cmm (157-399) 12/06/24 01:05 MPV 11.7 fL (7.4-10.4) H 12/06/24 01:05 Neut % (Auto) 95.3 % 12/06/24 01:05 Lymph % (Auto) 2.4 % 12/06/24 01:05 Caldwell % (Auto) 1.4 % 12/06/24 01:05 Eos % (Auto) 0.1 % 12/06/24 01:05 Baso % (Auto) 0.1 % 12/06/24 01:05 Neut # (Auto) 10.09 10^3/uL (1.8-7.7) H 12/06/24 01:05 Lymph # (Auto) 0.3 10^3/uL (0.8-4.8) L 12/06/24 01:05 Caldwell # (Auto) 0.2 10^3/uL (0.2-0.9) 12/06/24 01:05 Eos # (Auto) 0.0 10^3/uL (0.0-0.8) 12/06/24 01:05 Baso # (Auto) 0.0 10^3/uL (0.0-0.1) 12/06/24 01:05 Nucleated RBC % (auto) 0 % 12/06/24 01:05 Nucleated RBCs # 0.0 /100WBC 12/06/24 01:05 Specimen Type Venous 12/05/24 19:33 ABG pH 7.39 (7.35-7.45) 12/05/24 19:33 ABG pCO2 44.7 mmHg (35-45) 12/05/24 19:33 ABG pO2 54.1 mmHg (80.0-100.0) L 12/05/24 19:33 ABG PO2/FiO2 Ratio 193 12/05/24 19:33 ABG HCO3 26.8 mmol/L (22-26) H 12/05/24 19:33 ABG O2 Saturation 88.4 12/05/24 19:33 ABG Base Excess 1.5 mmol/L (-2.0-2.0) 12/05/24 19:33 Tanner Test Pos 12/05/24 19:33 Hematocrit 28.0 % (37-47) L 12/05/24 19:33 Hgb O2 Saturation 83.2 % (95-100) L 12/05/24 19:33 Carboxyhemoglobin 5.0 %THgb (0.4-20.1) 12/05/24 19:33 Methemoglobin 0.8 % (0.4-1.5) 12/05/24 19:33 Total Hemoglobin 9.1 g/dL (12-16) L 12/05/24 19:33 Sodium 141.0 mmol/L (131-143) 12/05/24 19:33 Potassium 4.4 mmol/L (3.5-5.0) 12/05/24 19:33 Glucose 222.0 mg/dL (70-115) H 12/05/24 19:33 Ionized Calcium 1.1 mmol/L (1.1-1.4) 12/05/24 19:33 O2 Delivery Device Nc 12/05/24 19:33 O2 Liters/Min 2.0 % 12/05/24 19:33 FiO2 28.0 % 12/05/24 19:33 Privacy Manager ID [email or web address] 12/05/24 19:33 Sodium 139 mmol/L (136-145) 12/06/24 01:05 Potassium 5.5 mmol/L (3.5-5.1) H 12/06/24 01:05 Chloride 101 mmol/L (98-107) 12/06/24 01:05 Carbon Dioxide 29 mmol/L (22-29) 12/06/24 01:05 Anion Gap 14.5 (5-19) 12/06/24 01:05 BUN 19 mg/dL (8-23) 12/06/24 01:05 Creatinine 1.0 mg/dL (0.5-0.9) H 12/06/24 01:05 GFR Calculation Not Reportable 12/06/24 01:05 Glucose 163 mg/dL (65-115) H 12/06/24 01:05 Calculated Osmolality 294 mOsm/kg (285-295) 12/06/24 01:05 Lactic Acid 3.0 mmol/L (0.5-2.2) H 12/05/24 19:06 Lactic Acid (Sepsis) 3.1 mmol/L (0.5-2.2) H 12/05/24 21:19 Calcium 8.9 mg/dL (8.5-10.5) 12/06/24 01:05 Magnesium 2.0 mg/dL (1.7-2.3) 12/06/24 01:05 Total Bilirubin 0.4 mg/dL (0.15-1.2) 12/06/24 01:05 AST 16 U/L (0-32) 12/06/24 01:05 ALT 33 U/L (0-33) 12/06/24 01:05 Alkaline Phosphatase 107 U/L (35-105) H 12/06/24 01:05 Troponin T Baseline 61 ng/L (0-10) H 12/05/24 19:06 Troponin T 120 Minute 62.28 ng/L (0-10) H 12/05/24 21:19 Delta Troponin T 1.28 ABS# (0-10) 12/05/24 21:19 Troponin T Hi Sens 6Hr 60.15 ng/L (0-10) H 12/06/24 01:05 Troponin T Hi Sens 6Hr Delta -0.85 ng/L (0-12) L 12/06/24 01:05 C-Reactive Protein 34.1 mg/L (0.0-4.9) H 12/05/24 19:06 NT-Pro-B Natriuret Pep 41425 pg/mL (0-450) H 12/05/24 19:06 Total Protein 6.3 g/dL (6.6-8.7) L 12/06/24 01:05 Albumin 3.4 g/dL (3.5-5.2) L 12/06/24 01:05 Globulin 2.9 g/dL (1.3-4.6) 12/06/24 01:05 A&P Assessment and plan 1. Acute exacerbation of congestive heart failure: 84-year-old lady with a past medical history as noted above admitted to the hospital today with chief complaints of increasing dyspnea and worsening wound over the left foot after recent amputation. Her worsening dyspnea is most likely related to acute on chronic systolic CHF exacerbation. Per personal interpretation of chest x-ray bilateral pulmonary edema is noted, elevated BNP consistent with edema. Started on Lasix 40 mg IV every 12 hours Closely monitor intake and output and creatinine while on IV diuresis. Recent echocardiogram from October 2024 shows hypokinesia of the inferoseptal inferior and inferior lateral wall segments with estimated LVEF of 45%. There was also mild mitral regurgitation noted at the time. Baseline troponin today at 61, at 2 hours 62, 6-hour at 60. Suspect that elevated troponins are most likely related to demand ischemia from CHF exacerbation. 2. Paroxysmal A-fib: Patient has a known history of atrial fibrillation, currently heart rate is well-controlled. Will continue home dose of amiodarone. Continue anticoagulation with Eliquis. 3. 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 She has had poor wound healing afterwards. On examination today wound is showing signs of dehiscence and has abundant slough. CT of the foot has been ordered to assess for underlying osteomyelitis. Additionally noted to heel wound over the left foot. She has received doxycycline 100 mg IV in the emergency room. Holding off on further doses of antibiotics for now as she is anticipated to be taken to the operating room today for I&D. Patient is currently not showing any signs of sepsis therefore holding off on further doses of antibiotics while awaiting to gather cultures. Once debridement has been performed empiric antibiotics may be started. 4. Infected wound: Podiatry Service consulted 5. Osteomyelitis of great toe of left foot: 6. Diabetes mellitus: Insulin sliding scale Plan: DVT prophylaxis: Eliquis 2.5 mg p.o. twice daily to suffice Full code PDMP PDMP Reviewed: Not Reviewed Attestations Medical Necessity Statement*: Greater than 2 midnight stay is anticipated for IV diuresis, need for debridement Coding Level of Care Code Acute Code for Chg Fwd High MDM includes number and complexity of problems actively addressed during encounter, amount and/or complexity of data reviewed/ordered and described risk of complication, morbidity or mortality of management as documented Diagnoses Acute exacerbation of congestive heart failure I50.9 Paroxysmal A-fib I48.0 Wound dehiscence T81.30XA Infected wound T14.8XXA; L08.9 Osteomyelitis of great toe of left foot M86.9 Diabetes mellitus E11.9
[2024-12-05 22:07] LABS: Troponin 5 2HR 62.28 ng/L (0-10); Troponin 5 2HR Delta 1.28 ABS# (0-10)
[2024-12-05 22:08] LABS: Lactic Acid level (Lactate) 3.1 mmol/L (0.5-2.2)
--- NOTE | 2024-12-05 22:38 | PC.NURSE ---
Pt has a stage 2 pressure ulcer on her sacral area.
[2024-12-06] VITALS (50 sets, daily range): BP systolic 82–183; BP diastolic 35–107; PULSE 30–86; RESP 10–22; TEMP 36.2–36.6; O2SAT 80–100
--- NOTE | 2024-12-06 00:53 | PC.NURSE ---
Dr. Munguia at bedside after being notified regarding patient surgical incision on her great toe. This nurse notified MD that there were maggots in the wound and that it looked dehisced with slough present. MD also made aware of the left heel and sacrum having wounds. Received orders to hold off on antibiotics until comes to see it and will order MRI.
--- NOTE | 2024-12-06 01:02 | CT_ITS ---
WS: [id number] CT LEFT FOOT, NONCONTRAST HISTORY: assess for osteomyelitis Technique: All CT scans at [facility] use at least one of these dose optimization techniques: automated exposure control; mA and/or kV adjustment per patient size (includes targeted exams where dose is matched to clinical indication); or iterative reconstruction. DLP: 282.09 mGy.cm COMPARISON: Foot radiograph 12/06/2024 Extensive soft tissue edema with skin thickening with surrounding the LEFT calcaneus. More focal soft tissue thickening involving the posterior medial posterior calcaneus. By history there is been recent debridement. No air in the soft tissues. No destruction of the calcaneus. Prior amputation first toe. Cortical lucencies with loss of normal bone involving the first metatarsal head. There is loss of the normal cortex along both the medial and lateral aspects of the first metatarsal head. There is extensive soft tissue edema surrounding the first metatarsal head and the sesa moid bones. Loss of the normal soft tissue thickness may be from recent debridement. No foreign bodies. There is extensive vascular calcifications. Linear high density foreign body in the soft tissues over the midfoot has been previously described. Advanced degenerative changes in the midfoot with loss of joint space and osteophytes. CT/CT foot LT wo con* [id number] IMPRESSION: 1. Extensive soft tissue edema thickening surrounding the LEFT calcaneus. No u nderlying destructive bone identified. Debridement was recently performed in th is location. 2. Extensive soft tissue thickening involving the first metatarsal head with l oss of the normal cortex. Likely osteomyelitis. Debridement has also been recen tly performed at this level. 3. Amputation first toe. 4. Extensive vascular calcifications.
--- NOTE | 2024-12-06 01:06 | ECG_ITS ---
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 Measurements Intervals [place] Rate: 57 P: 54 MI: 167 QRS: -24 QRSD: 114 T: 181 QT: 427 QTc: 417 Interpretive Statements SINUS BRADYCARDIA BORDERLINE LEFT AXIS DEVIATION [QRS AXIS < -20] LOW QRS VOLTAGE IN PRECORDIAL LEADS [QRS DEFLECTION < 1.0 mV IN CHEST LEADS] PATTERN CONSISTENT WITH PULMONARY DISEASE MODERATE INTRAVENTRICULAR CONDUCTION DELAY [110+ ms QRS DURATION] NONSPECIFIC ST & T-WAVE ABNORMALITY Compared to ECG 12/05/2024 21:05:15 Sinus rhythm no longer present T-wave abnormality still present Electronically Signed On 12-07-2024 08:51:32 CDT by Boaz Jaramillo M.D. [email or web address]
[2024-12-06 01:31] LABS: Hematocrit 30.0 % (36-47); Hemoglobin 9.30 g/dL (11.27-16.99); Mean Corpuscular HGB Conc 31.0 g/dL (30-55); Mean Corpuscular Hemoglobin 25.8 pg (27-33); Mean Corpuscular Volume 83.3 fl (85-98); Nucleated Red Blood Cells % 0 %; Platelet Count 325 10^3/cmm (157-399); Red Blood Count 3.60 10^6/uL (3.85-5.65); White Blood Count 10.58 10^3/uL (3.29-11.43)
[2024-12-06 01:50] LABS: Troponin 5 6HR 60.15 ng/L (0-10)
[2024-12-06 01:52] LABS: Troponin 5 6HR Delta -0.85 ng/L (0-12)
[2024-12-06 01:55] LABS: Alanine Aminotransferase 33 U/L (0-33); Albumin Level 3.4 g/dL (3.5-5.2); Alkaline Phosphatase 107 U/L (35-105); Anion Gap 14.5 (5-19); Aspartate Amino Transferase 16 U/L (0-32); Blood Urea Nitrogen 19 mg/dL (8-23); Calcium 8.9 mg/dL (8.5-10.5); Carbon Dioxide 29 mmol/L (22-29); Chloride 101 mmol/L (98-107); Creatinine Clr Calc Pharmacy 53.2844; Globulin 2.9 g/dL (1.3-4.6); Glucose 163 mg/dL (65-115); Magnesium 2.0 mg/dL (1.7-2.3); Osmolality Calculated 294 mOsm/kg (285-295); Potassium 5.5 mmol/L (3.5-5.1); Sodium 139 mmol/L (136-145); Total Protein 6.3 g/dL (6.6-8.7)
--- NOTE | 2024-12-06 06:28 | XR_ITS ---
WS: [id number] Left foot, 3 views, 12/06/2024 Clinical Data: heel wound, medial forefoot wound Comparison: Left foot, 10/28/2024 Findings: The left first toe has been amputated. The remainder of the foot shows no change. The vascular calcification is seen. 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 There is a radiopaque foreign body adjacent to the tarsal navicular. The soft tissues are normal. XR/XR foot LT min 3V* [id number] Impression: 1. Amputation of left first toe. 2. No change in the remainder of the foot from previous left foot x-ray.
--- NOTE | 2024-12-06 06:28 | PM.CONSULT ---
Providers/Reason For Consult Consulting Physician/Specialty*: Jean Paul Renee D.P.M. podiatry Reason for Consult*: Left heel ulcer and surgical dehiscence with exposed bone at the left great toe amputation site, maggots present on admission Attending Physician: Tara Munguia MD Primary Care Provider: Antonio Delgado MD History of Present Illness History of Present Illness Sally Henderson is a 84 year old female presented to the emergency department with complaints of shortness of breath on 12/05/2024 was admitted to the hospital service for acute exacerbation of CHF, proximal A-fib and foot wound x 2, osteomyelitis. Patient has had a pattern of noncompliance dating back greater than 1 year when friction and irritation was first observed at her feet and recommendations for cam boot offloading and then eventually extra-depth diabetic shoes with insoles were recommended as patient refused to wear the boot and did not follow through and get diabetic shoes. 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 Home health was started this week who expressed concerns with the appearance of her wounds on the left foot, she missed her appointment follow-up in podiatry clinic 12/05/2024 states that she did not have anybody to help her get dressed. Patient is tearful about being informed that maggots were observed by nursing staff at her wound of the left foot great toe amputation site. Review of Systems General: Reports: 10 or more systems reviewed and unremarkable except in HPI and below Const: Denies: fever(s) or chills Eyes: Denies: change in vision Card: Denies: chest pain or palpitations Resp: Denies: dyspnea or productive cough GI: Denies: abdominal pain, nausea or vomiting : Denies: flank pain Musc: Reports: extremity swelling, joint stiffness and deformity Skin/Breast: Reports: erythema, sores, changes in skin color, dry skin, nail changes and change in hair Neuro: Reports: numbness in extremities, sensory changes and difficulty walking Psych: Denies: suicidal ideation Endo: Denies: change in body appearance Saeid/Lymph: Denies: tender lymph nodes Medications/Allergies Home Medications ?Medication ?Instructions ?Recorded ?Confirmed ?Last Taken ?Type clopidogrel 75 mg tablet 75 mg PO BEDTIME #90 tabs 03/27/24 11/28/24 11/01/24 Rx nitroglycerin 0.4 mg sublingual 0.4 mg buccal PRN PRN Chest Pain 04/10/24 11/28/24 Unknown History tablet furosemide 40 mg tablet 40 mg PO BID@0800,1400 30 days #60 05/28/24 11/28/24 11/02/24 Rx tabs insulin aspart U-100 100 unit/mL See Rx Instructions .Route 06/11/24 11/28/24 11/02/24 Rx (3 mL) subcutaneous pen (Novolog .COMPLEX #15 mL FlexPen U-100 Insulin aspart) amiodarone 200 mg tablet 200 mg PO DAILY 07/18/24 11/28/24 11/02/24 History atorvastatin 40 mg tablet 40 mg PO QPM 07/18/24 11/28/24 11/01/24 History tramadol 50 mg tablet 50 mg PO Q6H PRN Pain 07/18/24 11/28/24 10/28/24 History budesonide-formoterol HFA 80 1 inh inhalation BID #10.2 grams 07/23/24 11/28/24 11/02/24 Rx mcg-4.5 mcg/actuation aerosol inhaler (Symbicort) nebulizer and compressor ([id number] #1 ea 07/23/24 11/28/24 Unknown Rx Nebulizer) sacubitril 24 mg-valsartan 26 mg 1 tab PO BID #60 tabs 07/25/24 11/28/24 11/02/24 Rx tablet (Entresto) aspirin 81 mg tablet,delayed 81 mg PO DAILY #30 tabs 08/07/24 11/28/24 11/02/24 Rx release neomycin-bacitracn Zn-polymyx 3.5 1 applic topical BID #30 grams 08/07/24 11/28/24 11/01/24 Rx mg-400 unit-5,000 unit/gram top oint (Triple Antibiotic) potassium chloride 20 mEq 10 meq (1/2 x 20 mEq) PO DAILY #30 08/07/24 11/28/24 11/02/24 Rx tablet,extended release(part/cryst) tabs albuterol sulfate 2.5 mg/3 mL 2.5 mg continuous nebulization TID 10/29/24 11/28/24 11/02/24 History (0.083 %) solution for nebulization PRN Shortness Of Breath insulin degludec 200 unit/mL (3 27 unit SUBCUT DAILY 10/29/24 11/28/24 11/02/24 History mL) subcutaneous pen (Tresiba FlexTouch U-200 insulin) ranolazine 1,000 mg 1,000 mg PO BID 11/03/24 11/28/24 11/02/24 History tablet,extended release,12 hr apixaban 5 mg tablet (Eliquis) 2.5 mg (1/2 x 5 mg) PO 11/06/24 11/28/24 Unknown Rx BID@0900,2100 30 days #30 tabs pantoprazole 40 mg tablet,delayed 40 mg PO BID 30 days #60 tabs 11/06/24 11/28/24 Unknown Rx release sucralfate 100 mg/mL oral 1 g (10 mL) PO BID 30 days #600 mL 11/06/24 11/28/24 Unknown Rx suspension CAM walker #1 ea 11/28/24 11/28/24 Unknown Rx doxycycline hyclate 100 mg capsule 100 mg PO BID 10 days #20 caps 11/28/24 11/28/24 Unknown Rx Allergies Allergy/AdvReac Type Severity Reaction Status Date / Time No Known Allergies Allergy Verified 11/28/24 14:09 Current Medications Generic Name Dose Route Start Last Admin Trade Name Freq PRN Reason Stop Dose Admin Albuterol/Ipratropium 3 ml 12/06/24 02:00 12/06/24 01:10 Ipratropium-Albuterol 3 Ml Neb INHALATION 3 ml Q6H.RESP LI Administration Tramadol HCl 50 mg 12/05/24 23:55 12/06/24 03:21 Tramadol 50 Mg Tablet PO 50 mg Q6H PRN Administration PAIN PFSH Acute PFSH: Medical History (Updated 12/06/24 @ 07:25 by Jean Paul Renee DPM) Dyslipidemia Essential (primary) hypertension COPD (chronic obstructive pulmonary disease) Chronic hypoxic respiratory failure, on home oxygen therapy Diabetes mellitus, type II, insulin dependent CAD (coronary artery disease) Paroxysmal A-fib CKD (chronic kidney disease) CHF (congestive heart failure) Respiratory arrest has required intubation Non-STEMI (non-ST elevated myocardial infarction) Contrast-induced nephropathy Surgical History Hx of hysterectomy Hx of CABG Family History Unknown No problems noted. Social History Smoking and tobacco/nicotine status: former use of tobacco/nicotine Alcohol intake: never Substance/Drug Use: never Vitals/I&O/Wt Last Vital Signs Temp 97.9 F 12/06/24 03:44 Pulse 64 12/06/24 03:44 Resp 14 12/06/24 03:44 BP 118/55 12/06/24 03:44 Pulse Ox 96 12/06/24 03:44 O2 Del Method Nasal Cannula 12/06/24 03:44 O2 Flow Rate 2 12/06/24 01:15 12/05/24 12/05/24 12/06/24 14:59 22:59 06:59 Intake Total 340 / 340 Output Total 1100 / 1100 Balance -760 / -760 Weight last 48 hrs Weight 170 lb 6.4 oz Weight 171 lb 9 oz Physical Exam Narrative: Patient is alert and oriented ?3 and in no acute distress. The following is a focused bilateral lower extremity exam. VASCULAR: Dorsalis pedis diminished bilaterally. Posterior tibial arteries diminished. Capillary refill time less than 5 seconds to the distal hallux bilaterally. Calf is supple and nontender proximally and distally. Decreased pedal hair growth. NEUROLOGICAL: Protective sensation intact 6/10 sites, tested with [place] [employer] monofilament to bilateral feet. DERMATOLOGICAL: Wound 1: Dehiscence with exposed bone able to visualize the head of the first metatarsal left foot wound measures 2.5 cm x 0.8 cm probes directly to bone with devitalized base, no periwound erythema, mild purulence. Wound to: Wound exposed to myofascial layer left posterior lateral heel measures 1 cm x 1 cm x 0.4 cm with fibrotic base and epithelialized margin, no purulent drainage and no surrounding erythema. Left heel wound does not probe to bone. 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 Urinary Catheter Management: Huff: Cath Placed During This Visit: yes Urinary Catheter Date of Insertion: 12/05/24 Urinary Catheter Time of Insertion: 22:48 Data 12/06/24 01:05 12/06/24 01:05 Micro: Microbiology 12/05/24 19:35 Blood Culture - Preliminary Blood SPECIMEN COLLECTED 12/05/24 19:33 Blood Culture - Preliminary Blood SPECIMEN COLLECTED A&P Assessment and plan 1. Diabetic ulcer of left heel associated with type 2 diabetes mellitus, with necrosis of muscle: 2. 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 Non-pressure chronic ulcer of other part of left foot with necrosis of bone: 4. Infestation, maggots: Left foot great toe amputation site 12/05/2024 witnessed by nursing staff at cardiac stepdown unit. 5. Noncompliance: History of noncompliance with offloading recommendations for foot wounds specifically cam boot and diabetic shoe package. History of noncompliance with recommendation of [facility] facility placement and services. Plan: 84-year-old insulin-dependent diabetic female presents with acute on chronic CHF and left foot wounds documented above. Labs 12/06/2024: No leukocytosis, ESR 26, CRP 33.3 mg/L - N.p.o. - Nonweightbearing left foot - Float left heel for offloading at all times - Recommended incision and debridement down to myofascial layer of left heel wound and incision and debridement with delayed closure of left medial forefoot wound at amputation site has exposed bone will require partial metatarsectomy for attempted delayed closure of amputation site. Surgery scheduled today at 11:30 AM, spoke with patient and her son Jos who are in agreements to proceed with surgical intervention to left foot. Will get surgical wound cultures of left heel soft tissue and left first metatarsal bone. I reviewed at length with the patient, the risks, potential complications, benefits, alternatives, expectations, and typical outcomes associated with the surgery. The risks and potential complications were explained in detail, including but not limited to infection, wound dehiscence or soft tissue complications, bleeding and hematoma, chronic edema, neuritis or nerve damage producing numbness or chronic pain, CRPS, failure to relieve pain or worsening pain, thick / painful / unsightly scar, limited motion / stiffness, malposition, delayed union, malunion, or nonunion, fracture, reaction to implants, anesthetic complications, venous thromboembolism, and deformity recurrence. I discussed the notion of no regrets with the patient as it pertains to complications and outcomes. The patient seemed to understand the nature of the proposed care and required convalescence. They asked appropriate questions, answered to their satisfaction. They are aware no guarantees can be made as to a satisfactory outcome and they understand there may be other possible unforeseen complications or outcomes not listed here that will be treated accordingly if they arise. There were no written or implied guarantees given to the patient. They gave informed consent to proceed. 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
--- NOTE | 2024-12-06 07:30 | PC.NURSE ---
Received phone call this morning around [address] Munguia to make patient NPO as she is going to the OR. Around 0630 Dr. Renee at bedside to examine foot. Per Dr. Renee patient is gong to OR around [id number] for possible debridement. Patient son Jos Radford notified per patient request. Received message later on from Dr. munguia to hold AM dose of eliquis.
--- NOTE | 2024-12-06 09:17 | PC.SOCIAL ---
IMM Updated Updated pt on IMM. No questions voiced. Provided pt a copy. Initialed, dated, & timed a copy & placed in chart.
[2024-12-06] MEDS: FUROsemide 10 mg/mL SDV 4mL 40 MG IVP ×2 (09:21→23:21)
[2024-12-06] MEDS: ranolazine (12HR) 500 mg Tablet 1000 MG PO ×2 (09:21→16:38)
--- NOTE | 2024-12-06 10:45 | ANES.PREANE2 ---
Pre-Anesthetic Assessment Height/Weight: Height 4 ft 11 in Weight 170 lb 6.4 oz Temp Pulse Resp BP Pulse Ox O2 Del Method O2 Flow Rate 97.6 F 73 17 128/73 95 Nasal Cannula 2 12/06/24 10:36 12/06/24 10:36 12/06/24 10:36 12/06/24 10:36 12/06/24 10:36 12/06/24 10:36 12/06/24 10:36 Preop Diagnosis: Left heel ulcer and first metatarsal osteomyelitis. Operation Date: 12/06/24 11:40 Proposed Procedures p Incision And Debridement down to bone and delayed closure left foot(Left) - Jean Paul Renee, BITAM Was Beta Stephanie taken within 24 hours: Yes Was Clonidine taken within 24 hours: N/A Last intake: Intake Last Liquid Date 12/05/24 Last Liquid Time 17:30 Last Solid Date 12/05/24 Last Solid Time 17:30 Social No alcohol and No tobacco Exam oriented x 3 Airway Mallampati: Class IV Comments: Comments: Small mouth opening Anesthetic Plan ASA status: 4 Anesthesia: MAC Other: No prior issues with anesthesia NPO since yesterday History of type 2 diabetes, on insulin. Glucose Labs reviewed from today, hemoglobin 9.3 COPD, on home O2. 2-3 L at baseline CKD EKG showing sinus rhythm with moderate conduction delay Echo performed in August showing EF of 45% Plan for MAC anesthesia with local via surgeon Medications/Allergies Home Medications ?Medication ?Instructions ?Recorded ?Confirmed ?Last Taken ?Type clopidogrel 75 mg tablet 75 mg PO BEDTIME #90 tabs 03/27/24 11/28/24 11/01/24 Rx nitroglycerin 0.4 mg sublingual 0.4 mg buccal PRN PRN Chest Pain 04/10/24 11/28/24 Unknown History tablet furosemide 40 mg tablet 40 mg PO BID@0800,1400 30 days #60 05/28/24 11/28/24 11/02/24 Rx tabs insulin aspart U-100 100 unit/mL See Rx Instructions .Route 06/11/24 11/28/24 11/02/24 Rx (3 mL) subcutaneous pen (Novolog .COMPLEX #15 mL FlexPen U-100 Insulin aspart) amiodarone 200 mg tablet 200 mg PO DAILY 07/18/24 11/28/24 11/02/24 History atorvastatin 40 mg tablet 40 mg PO QPM 07/18/24 11/28/24 11/01/24 History tramadol 50 mg tablet 50 mg PO Q6H PRN Pain 07/18/24 11/28/24 10/28/24 History budesonide-formoterol HFA 80 1 inh inhalation BID #10.2 grams 07/23/24 11/28/24 11/02/24 Rx mcg-4.5 mcg/actuation aerosol inhaler (Symbicort) nebulizer and compressor ([id number] #1 ea 07/23/24 11/28/24 Unknown Rx Nebulizer) sacubitril 24 mg-valsartan 26 mg 1 tab PO BID #60 tabs 07/25/24 11/28/24 11/02/24 Rx tablet (Entresto) aspirin 81 mg tablet,delayed 81 mg PO DAILY #30 tabs 08/07/24 11/28/24 11/02/24 Rx release neomycin-bacitracn Zn-polymyx 3.5 1 applic topical BID #30 grams 08/07/24 11/28/24 11/01/24 Rx mg-400 unit-5,000 unit/gram top oint (Triple Antibiotic) potassium chloride 20 mEq 10 meq (1/2 x 20 mEq) PO DAILY #30 08/07/24 11/28/24 11/02/24 Rx tablet,extended release(part/cryst) tabs albuterol sulfate 2.5 mg/3 mL 2.5 mg continuous nebulization TID 10/29/24 11/28/24 11/02/24 History (0.083 %) solution for nebulization PRN Shortness Of Breath insulin degludec 200 unit/mL (3 27 unit SUBCUT DAILY 10/29/24 11/28/24 11/02/24 History mL) subcutaneous pen (Tresiba FlexTouch U-200 insulin) ranolazine 1,000 mg 1,000 mg PO BID 11/03/24 11/28/24 11/02/24 History tablet,extended release,12 hr apixaban 5 mg tablet (Eliquis) 2.5 mg (1/2 x 5 mg) PO 11/06/24 11/28/24 Unknown Rx BID@0900,2100 30 days #30 tabs pantoprazole 40 mg tablet,delayed 40 mg PO BID 30 days #60 tabs 11/06/24 11/28/24 Unknown Rx release sucralfate 100 mg/mL oral 1 g (10 mL) PO BID 30 days #600 mL 11/06/24 11/28/24 Unknown Rx suspension CAM walker #1 ea 11/28/24 11/28/24 Unknown Rx doxycycline hyclate 100 mg capsule 100 mg PO BID 10 days #20 caps 11/28/24 11/28/24 Unknown Rx Allergies Allergy/AdvReac Type Severity Reaction Status Date / Time No Known Allergies Allergy Verified 11/28/24 14:09 Current Medications Generic Name Dose Route Start Last Admin Trade Name Freq PRN Reason Stop Dose Admin Albuterol/Ipratropium 3 ml 12/06/24 02:00 12/06/24 07:41 Ipratropium-Albuterol 3 Ml Neb INHALATION 3 ml On Hold: 12/06/24 10:31 Q6H.RESP LI Administration Comment: Order held by Process Transfer Amiodarone HCl 200 mg 12/06/24 09:00 12/06/24 09:21 Amiodarone 200 Mg Tablet PO 200 mg On Hold: 12/06/24 10:31 DAILY LI Administration Comment: Order held by Process Transfer Aspirin 81 mg 12/06/24 09:00 12/06/24 09:21 Aspirin 81 Mg Ec Tablet PO 81 mg On Hold: 12/06/24 10:31 DAILY LI Administration Comment: Order held by Process Transfer Budesonide 0.5 mg 12/06/24 08:00 12/06/24 07:41 Budesonide 0.5 Mg/2 Ml Neb INHALATION 0.5 mg On Hold: 12/06/24 10:31 BID.RESPIRATORY LI Administration Comment: Order held by Process Transfer Furosemide 40 mg 12/06/24 09:00 12/06/24 09:21 Furosemide 10 Mg/Ml Sdv 4ml IVP 40 mg On Hold: 12/06/24 10:31 Q12H LI Administration Comment: Order held by Process Transfer Nystatin 1 applic 12/06/24 09:00 12/06/24 09:21 Nystatin Powder 15 Gm Btl TOPICAL 1 applic On Hold: 12/06/24 10:31 BID LI Administration Comment: Order held by Process Transfer Pantoprazole Sodium 40 mg 12/06/24 09:00 12/06/24 09:[address] 40 Mg Tablet PO 40 mg On Hold: 12/06/24 10:31 DAILY LI Administration Comment: Order held by Process Transfer Ranolazine 1,000 mg 12/06/24 09:00 12/06/24 09:21 Ranolazine (12hr) 500 Mg Tablet PO 1,000 mg On Hold: 12/06/24 10:31 BID LI Administration Comment: Order held by Process Transfer Tramadol HCl 50 mg 12/05/24 23:55 12/06/24 03:21 Tramadol 50 Mg Tablet PO 50 mg On Hold: 12/06/24 10:31 Q6H PRN Administration Comment: Order held by Process PAIN Transfer [facility] Anesthesia Medical History (Updated 12/06/24 @ 07:25 by Jean Paul Renee DPM) Dyslipidemia Essential (primary) hypertension COPD (chronic obstructive pulmonary disease) Chronic hypoxic respiratory failure, on home oxygen therapy Diabetes mellitus, type II, insulin dependent CAD (coronary artery disease) Paroxysmal A-fib CKD (chronic kidney disease) CHF (congestive heart failure) Respiratory arrest has required intubation Non-STEMI (non-ST elevated myocardial infarction) Contrast-induced nephropathy Surgical History Hx of hysterectomy Hx of CABG Family History Unknown No problems noted. Social History Smoking and tobacco/nicotine status: former use of tobacco/nicotine Alcohol intake: never Substance/Drug Use: never Data Anesthesia 12/06/24 01:05 12/06/24 01:05 Short CBC 12/05/24 12/06/24 Range/Units 19:06 01:05 WBC 9.69 10.58 (3.29-11.43) 10^3/uL Hgb 9.20 L 9.30 L (11.27-16.99) g/dL Hct 31.2 L 30.0 L (36-47) % MCV 84.1 L 83.3 L (85-98) fl Plt Count 334 325 (157-399) 10^3/cmm Neut % (Auto) 83.0 95.3 % Neut # (Auto) 8.04 H 10.09 H (1.8-7.7) 10^3/uL BMP 12/05/24 12/06/24 19:06 01:05 Sodium 140 139 Potassium 4.8 5.5 H Chloride 101 101 Carbon Dioxide 27 29 BUN 20 19 Creatinine 0.8 1.0 H Glucose 275 H 163 H Calcium 8.9 8.9 Cardiac Enzymes 12/05/24 12/05/24 12/06/24 Range/Units 19:06 21:19 01:05 Troponin T Baseline 61 H (0-10) ng/L Troponin T 120 Minute 62.28 H (0-10) ng/L Delta Troponin T 1.28 (0-10) ABS# Troponin T Hi Sens 6Hr 60.15 H (0-10) ng/L Troponin T Hi Sens 6Hr Delta -0.85 L (0-12) ng/L NT-Pro-B Natriuret Pep 94819 H (0-450) pg/mL Liver Function 12/05/24 12/06/24 Range/Units 19:06 01:05 Total Bilirubin 0.4 0.4 (0.15-1.2) mg/dL AST 15 16 (0-32) U/L ALT 36 H 33 (0-33) U/L Alkaline Phosphatase 110 H 107 H (35-105) U/L Albumin 3.4 L 3.4 L (3.5-5.2) g/dL Coags 12/05/24 12/06/24 19:06 01:05 ESR 26 H C-Reactive Protein 34.1 H 33.3 H ABG 12/05/24 19:33 Specimen Type Venous Sample Site Not Reportable ABG pH 7.39 ABG pCO2 44.7 ABG pO2 54.1 L ABG PO2/FiO2 Ratio 193 ABG HCO3 26.8 H ABG O2 Saturation 88.4 ABG Base Excess 1.5 A-a O2 Gradient Not Reportable O2 Delivery Device Nc O2 Liters/Min 2.0 FiO2 28.0 Microbiology 12/05/24 19:35 Blood Culture - Preliminary Blood SPECIMEN COLLECTED 12/05/24 19:33 Blood Culture - Preliminary Blood SPECIMEN COLLECTED Cardiac Studies: Echocardiogram 11/03/24 Echocardiogram Limited Views 08/24/24
--- NOTE | 2024-12-06 10:55 | W.PM.OPSUD ---
Surgery/Procedure H&P Update DATE OF PROCEDURE: December 06, 2024 DATE H&P PERFORMED: 12/06/24 H&P UPDATE INFORMATION: I have reviewed H&P completed within last 30 days, I have examined patient prior to procedure, No changes to prior documentation and Risks and benefits of the procedure reviewed PREOP DIAGNOSIS: Left heel ulcer and first metatarsal osteomyelitis. PLANNED PROCEDURE: Operation Date: 12/06/24 11:40 Proposed Procedures p Incision And Debridement down to bone and delayed closure left foot(Left) - Jean Paul Renee DPM
[2024-12-06] MEDS: insulin regular-human 100 units/1 mL 10 UNIT IVP (11:12)
[2024-12-06] MEDS: lidocaine 2% INJ 20 mL 15 ML INJECTION (11:40)
[2024-12-06] MEDS: BUPivacaine 0.5% INJ 10 mL 15 ML INJECTION (11:40)
--- NOTE | 2024-12-06 11:57 | W.PM.BPON ---
Date of Procedure: 07/28/23 Surgeon: Jean Paul Renee DPM [employer] Stationary Engineer(s): Tali Procedure(s) performed: Incision and debridement down to bone left foot, delayed closure left foot. Findings of the procedure(s): Devitalized bone left first metatarsal head, wound exposed to myofascial layer left heel. Estimated blood loss: 10 mL Specimen(s) removed: Bone from left first metatarsal head sent to microbiology for Gram stain culture and sensitivity. Soft tissue from left posterior heel wound sent to microbiology for Gram stain culture and sensitivity. Post-operative diagnosis: Left heel wound exposed to myofascial layer. Osteomyelitis left first metatarsal.
--- NOTE | 2024-12-06 11:58 | P.OP_ITS ---
Operative Report Date of procedure: December 06, 2024 Pre-op diagnosis: 1) Surgical wound dehiscence at amputation site of left great toe. 2) osteomyelitis left first metatarsal. 3) left heel wound exposed to myofascial layer 4) insulin-dependent diabetes type 2 with peripheral vascular disease Post-op diagnosis: Same Procedure done: 1) secondary closure of surgical wound left foot. CPT code 13528 2) incision and debridement below fascia left heel. CPT code 50961 Implants: 2-0 Vicryl, 3-0 Vicryl, 4-0 nylon Specimens removed/disposition: 1) bone from left first metatarsal sent to microbiology for Gram stain culture and sensitivity. 2) soft tissue from left heel wound sent to microbiology for Gram stain culture and sensitivity Surgeon: Jean Paul Renee DPM [employer] Specialist: Tali Estimated blood loss: 10 16 IV fluids: See intraoperative documentation Urine output: None Complications: none Findings: Devitalized bone left first metatarsal head. Surgical site dehiscence of amputation site of left great toe. Left heel wound. Brief History: 84-year-old insulin-dependent diabetic female presents with acute on chronic CHF and left foot wounds documented above. Labs 12/06/2024: No leukocytosis, ESR 26, CRP 33.3 mg/L Recommended incision and debridement down to myofascial layer of left heel wound and incision and debridement with delayed closure of left medial forefoot wound at amputation site has exposed bone will require partial metatarsectomy for attempted delayed closure of amputation site. Surgery scheduled today at 11:30 AM, spoke with patient and her son Jos who are in agreements to proceed with surgical intervention to left foot. Will get surgical wound cultures of left heel soft tissue and left first metatarsal bone. I reviewed at length with the patient, the risks, potential complications, benefits, alternatives, expectations, and typical outcomes associated with the surgery. The risks and potential complications were explained in detail, including but not limited to infection, wound dehiscence or soft tissue complications, bleeding and hematoma, chronic edema, neuritis or nerve damage producing numbness or chronic pain, CRPS, failure to relieve pain or worsening pain, thick / painful / unsightly scar, limited motion / stiffness, malposition, delayed union, malunion, or nonunion, fracture, reaction to implants, anesthetic complications, venous thromboembolism, and deformity recurrence. I discussed the notion of no regrets with the patient as it pertains to complications and outcomes. The patient seemed to understand the nature of the proposed care and required convalescence. They asked appropriate questions, answered to their satisfaction. They are aware no guarantees can be made as to a satisfactory outcome and they understand there may be other possible unforeseen complications or outcomes not listed here that will be treated accordingly if they arise. There were no written or implied guarantees given to the patient. They gave informed consent to proceed. Procedure: Patient was brought to the operating room and remained on the gurney in supine position. A timeout was performed. Anesthesia was then administered by the anesthesia service. Local anesthesia was injected by myself consisting of 20 cc of one-to-one mixture 1% lidocaine and 0.5% Marcaine plain in a left Glez block fashion and 10 cc of one-to-one mixture 1% lidocaine and 0.5% Marcaine plain in a V-block fashion to the left posterior heel. Well-padded pneumatic tourniquet applied to the left ankle. The left lower extremity was scrubbed, prepped and draped utilizing normal aseptic technique. Left foot was elevated and ankle tourniquet inflated to 250 mmHg. Attention was directed to the amputation site of the left great toe where a full-thickness dehiscence was appreciated with sutures pulled through and first metatarsal head protruding through skin and sutures with devitalized base and discolored first metatarsal head with poor density. All nylon sutures were removed, sharp debridement excisional nature was performed of all devitalized tissue including epidermis, dermis, subcutaneous tissue, myofascial layer, capsule and first metatarsal head, bone from the first metatarsal head was sent to microbiology for Gram stain culture and sensitivity. The incision was irrigated with sterile saline solution and Irrisept. In order to achieve wound closure further resection of first metatarsal head and neck was required this was performed with a sagittal saw beveling as to reduce sharp edges to reduce bony prominences and reduce risks of reulceration. After further irrigation the wound was closed in a layered fashion with deep fascia reapproximated with 2-0 Vicryl, subcutaneous tissue with 3-0 Vicryl and skin with nylon. Predebridement surgical dehiscence site measured 4 cm in length, 1.5 cm in width and exposed to bone. Attention was then directed to the left posterior heel where a wound was appreciated had a devitalized base. Utilizing brown pickups and a #15 blade incision and debridement was performed of epidermis, dermis, subcutaneous tissue and myofascial layer of all devitalized tissue followed by irrigation with Irrisept and saline solution. The wound did not probe to bone, tunnel or undermine. Postdebridement measurements of left posterior heel wound 1.3 cm x 1.5 cm x 0.4 cm. Wound was sharply and excisionally debrided down to healthy b leeding base and healthy tissue. Surgical sites were then dressed with Xeroform, sterile 4 x 4 gauze, Kerlix and 4 inch Lalito wrap without utilizing any compression due to underlying peripheral arterial disease. Tourniquet was deflated and a hyperemic response was noted to the remaining digits of the left foot digits 2 through 5. Patient tolerated the procedure and anesthesia well and was transferred to the PACU with vital signs stable and vascular status intact. Following a period of postoperative monitoring to be transferred back to cardiac stepdown unit and will initiate broad-spectrum antibiotics. Nursing orders placed to keep left heel floated at all times for offloading.
--- NOTE | 2024-12-06 12:09 | P.PN_ITS ---
Subjective 2 Subjective: Admitted overnight. Examination patient lying comfortably in bed. Denies any nausea, vomiting, headache. Appropriate urine output after Huff catheter placement and Lasix. Vitals/I&O/Wt Last Vital Signs Temp 97.2 F L 12/06/24 12:00 Pulse 61 12/06/24 12:00 Resp 14 12/06/24 12:00 BP 89/43 12/06/24 12:00 Pulse Ox 94 12/06/24 12:00 O2 Del Method Nasal Cannula 12/06/24 12:00 O2 Flow Rate 5 12/06/24 12:00 12/05/24 12/06/24 12/06/24 22:59 06:59 14:59 Intake Total 340 / 340 200 / 200 Output Total 1100 / 1100 10 / 10 Balance -760 / -760 190 / 190 Weight last 48 hrs Weight 77.292 kg Weight 77.819 kg Physical Exam 2 Narrative: General: No acute distress, AO x3 HEENT: PERRLA, pupils bilaterally equal and reactive, pallors not present Chest: Normal vesicular breath sounds, no added sounds, equal good air entry bilaterally CVS: S1-S2 regular, no murmurs, no tachycardia, no gallops, no rubs Abdomen: Soft, nontender, no organomegaly, bowel sounds present Neuro: No focal deficits, no facial deformity, AO x3, power 5/5 in all limbs Extremities: Noted wound dehiscence over surgical site over left foot at site of great toe amputation. Abundant necrotic material was encountered which was cleaned when the wound was redressed. Per nursing report there were maggots encountered in the wound. Additional wound noted over her left heel posteriorly. Urinary Catheter Management: Huff: Cath Placed During This Visit: yes Reason for Continuing Indwelling Catheter: Accurate Measurement of Urinary Output in Critically Ill Patients Urinary Catheter Date of Insertion: 12/05/24 Urinary Catheter Time of Insertion: 22:48 Data 12/06/24 01:05 12/06/24 01:05 Micro: Microbiology 12/05/24 19:35 Blood Culture - Preliminary Blood SPECIMEN COLLECTED 12/05/24 19:33 Blood Culture - Preliminary Blood SPECIMEN COLLECTED A&P Assessment and plan 1. Acute on chronic systolic congestive heart failure: Acute decompensated systolic congestive heart failure. Recent echocardiogram from October 2024 shows hypokinesia of the inferoseptal inferior and inferior lateral wall segments with estimated LVEF of 45%. There was also mild mitral regurgitation noted at the time. Fluid restriction to less than 1500 cc. Huff catheterization. Strict input output charting, daily weights. Continue with IV Lasix 40 mg twice daily. Monitor renal functions in afternoon for hypokalemia or contraction alkalosis. Baseline troponin today at 61, at 2 hours 62, 6-hour at 60. Suspect that elevated troponins are most likely related to demand ischemia from CHF exacerbation. 2. Paroxysmal A-fib: Patient has a known history of atrial fibrillation, currently heart rate is well-controlled. Will continue home dose of amiodarone. Continue anticoagulation with Eliquis. To restart after I&D of wound today. manager unit. 3. 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 She has had poor wound healing afterwards. Podiatry consulted. CT foot yet not done. Follow-up blood cultures. Will request OR culture. Check MRSA swab. Start on IV vancomycin and Zosyn postoperatively. Wound care as per podiatry team. 4. Infected wound: Podiatry Service consulted 5. Osteomyelitis of great toe of left foot: 6. Diabetes mellitus: Uncontrolled type 2 diabetes mellitus with A1c of more than 10. Insulin sliding scale low-dose protocol. Takes Lantus 27 units at home. For now start on 20 units nightly. Will uptitrate as per insulin requirements in next 24 hours. Plan: DVT prophylaxis: Eliquis 2.5 mg p.o. twice daily to suffice Full code Carb consistent cardiac diet Protonix for PUD prophylaxis PDMP PDMP Reviewed: Not Reviewed Attestations 2 Medical Necessity Statement*: Requested hospitalization for safe discharge planning in a patient with concerns for wound dehiscence, osteomyelitis of left foot, congestive heart failure Diagnoses Acute on chronic systolic congestive heart failure I50.23 Heart failure type: systolic Paroxysmal A-fib I48.0 Wound dehiscence T81.30XA Infected wound T14.8XXA; L08.9 Osteomyelitis of great toe of left foot M86.9 Diabetes mellitus E11.9
--- NOTE | 2024-12-06 12:31 | ANE.PACU2 ---
Inpatient post-anesthesia follow up: Airway intact: Yes Vital signs: Temperature 97.7 F Pulse Rate 56 Respiratory Rate 16 Blood Pressure 100/50 Pulse Oximetry 96 Oxygen Delivery Me thod Nasal Cannula Oxygen Flow Rate 2 Fraction of Inspir ed Oxygen Hydration adequate: Yes Nausea and vomiting: No Pain level: 1 Mental status: Baseline
--- NOTE | 2024-12-06 12:38 | PHA.VACGOAL ---
Vancomycin Goal - Goal Vancomycin Goal:: 15-20 mg/L Vancomycin Indication:: Osteo - Therapy Current therapy:: Pip/Tazo Day of therpy:: Day []of [] . Actual body weight (kg): 170 lb 6.4 oz - Data Labs: WBC 10.58 10^3/uL (3.29-11.43) 12/06/24 01:05 RBC 3.60 10^6/uL (3.85-5.65) L 12/06/24 01:05 Hgb 9.30 g/dL (11.27-16.99) L 12/06/24 01:05 Hct 30.0 % (36-47) L 12/06/24 01:05 MCV 83.3 fl (85-98) L 12/06/24 01:05 MCH 25.8 pg (27-33) L 12/06/24 01:05 MCHC 31.0 g/dL (30-55) D 12/06/24 01:05 RDW 19.1 % (12.1-15.1) H 12/06/24 01:05 Sodium 139 mmol/L (136-145) 12/06/24 01:05 Potassium 5.5 mmol/L (3.5-5.1) H 12/06/24 01:05 Chloride 101 mmol/L (98-107) 12/06/24 01:05 Carbon Dioxide 29 mmol/L (22-29) 12/06/24 01:05 Anion Gap 14.5 (5-19) 12/06/24 01:05 BUN 19 mg/dL (8-23) 12/06/24 01:05 Creatinine 1.0 mg/dL (0.5-0.9) H 12/06/24 01:05 GFR Calculation Not Reportable 12/06/24 01:05 Treatment plan:: new consult Regimen:: PATIENT WAS PREVIOUSLY ON VANC IN OCTOBER. SIMILAR RENAL FUNCTION. CONTINUING DOSE PATIENT TOLERATED WELL PREVIOUSLY, 1250MG Q24H, ALSO ALIGNS WITH DOSING PROTOCOL. WILL DRAW TROUGH PRIOR TO 4TH DOSE.
[2024-12-06] MEDS: piperacillin-tazobactam 3.375 GM in sodium chloride 0.9% (plus) 50 ML IV ×2 (15:07→23:21)
[2024-12-06 15:26] LABS: Anion Gap 18.8 (5-19); Blood Urea Nitrogen 29 mg/dL (8-23); Calcium 8.4 mg/dL (8.5-10.5); Carbon Dioxide 26 mmol/L (22-29); Chloride 97 mmol/L (98-107); Creatinine Clr Calc Pharmacy 40.7104; Glucose 378 mg/dL (65-115); Osmolality Calculated 303 mOsm/kg (285-295); Potassium 5.8 mmol/L (3.5-5.1); Sodium 136 mmol/L (136-145)
[2024-12-06] MEDS: calcium gluconate 0.9% NaCL 1 GM/50 ML PREMIX IV (16:37)
[2024-12-06] MEDS: ondansetron 2 mg/ML SDV 2 mL 4 MG IVP (19:56)
--- NOTE | 2024-12-06 19:57 | ECG_ITS ---
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 Measurements Intervals [place] Rate: 39 P: 35 DC: 160 QRS: -25 QRSD: 113 T: 161 QT: 519 QTc: 419 Interpretive Statements SINUS BRADYCARDIA WITH SINUS ARRHYTHMIA BORDERLINE LEFT AXIS DEVIATION [QRS AXIS < -20] MODERATE INTRAVENTRICULAR CONDUCTION DELAY [110+ ms QRS DURATION] ST DEVIATION AND MODERATE T-WAVE ABNORMALITY, CONSIDER ANTEROLATERAL ISCHEMIA [-0.1+ mV T-WAVE IN V3-V6] CRITICAL TEST RESULT Compared to ECG 12/06/2024 01:06:14 Possible ischemia now present T-wave abnormality still present Electronically Signed On 12-07-2024 08:41:37 CDT by Boaz Jaramillo M.D. [email or web address]
[2024-12-06] MEDS: norepinephrine 4 MG/250 ML BAG 37.5 MG IV (20:21)
--- NOTE | 2024-12-06 20:25 | W.ED.CPR ---
HPI - CPR General: Stated Complaint: SOB Time Seen by Provider: 12/05/24 18:55 History of Present Illness: FLORECITA DORSEY was called overhead. I arrived in the room CPR was being performed. Patient was in asystole. Reports of low blood pressure earlier. And that she had had a debridement of her toe earlier in the day. Hospitalist was contacted and arrived shortly after I intubated the patient. He took over the code at that point. Related Data Home Medications ?Medication ?Instructions ?Recorded ?Confirmed nitroglycerin 0.4 mg sublingual 0.4 mg buccal PRN PRN Chest Pain 04/10/24 12/06/24 tablet amiodarone 200 mg tablet 200 mg PO DAILY 07/18/24 12/06/24 atorvastatin 40 mg tablet 40 mg PO QPM 07/18/24 12/06/24 tramadol 50 mg tablet 50 mg PO Q6H PRN Pain 07/18/24 12/06/24 albuterol sulfate 2.5 mg/3 mL 2.5 mg continuous nebulization TID 10/29/24 12/06/24 (0.083 %) solution for nebulization PRN Shortness Of Breath insulin degludec 200 unit/mL (3 27 unit SUBCUT DAILY 10/29/24 12/06/24 mL) subcutaneous pen (Tresiba FlexTouch U-200 insulin) fluconazole 100 mg tablet See Rx Instructions .Route .COMPLEX 12/06/24 12/06/24 insulin aspart U-100 100 unit/mL See Rx Instructions .Route .COMPLEX 12/06/24 12/06/24 (3 mL) subcutaneous pen (Novolog FlexPen U-100 Insulin aspart) omeprazole 20 mg capsule,delayed 20 mg PO BID 12/06/24 12/06/24 release ondansetron 4 mg disintegrating 4 mg PO Q8H PRN Nausea And Vomiting 12/06/24 12/06/24 tablet potassium chloride 10 mEq 10 meq PO DAILY 12/06/24 12/06/24 tablet,extended release ranolazine 1,000 mg 1,000 mg PO BID 12/06/24 12/06/24 tablet,extended release,12 hr sucralfate 1 gram tablet 1 g PO BID 12/06/24 12/06/24 Previous Rx's ?Medication ?Instructions ?Recorded clopidogrel 75 mg tablet 75 mg PO BEDTIME #90 tabs 03/27/24 furosemide 40 mg tablet 40 mg PO BID@0800,1400 30 days #60 05/28/24 tabs nebulizer and compressor (EMM649 #1 ea 07/23/24 Nebulizer) sacubitril 24 mg-valsartan 26 mg 1 tab PO BID #60 tabs 07/25/24 tablet (Entresto) aspirin 81 mg tablet,delayed 81 mg PO DAILY #30 tabs 08/07/24 release neomycin-bacitracn Zn-polymyx 3.5 1 applic topical BID #30 grams 08/07/24 mg-400 unit-5,000 unit/gram top oint (Triple Antibiotic) apixaban 5 mg tablet (Eliquis) 2.5 mg (1/2 x 5 mg) PO 11/06/24 BID@0900,2100 30 days #30 tabs CAM walker #1 ea 11/28/24 doxycycline hyclate 100 mg capsule 100 mg PO BID 10 days #20 caps 11/28/24 Allergies Allergy/AdvReac Type Severity Reaction Status Date / Time No Known Allergies Allergy Verified 11/28/24 14:09 Review of Systems General: Reports: ROS unobtainable due to medical condition PFSH ED PFSH: Medical History (Updated 12/06/24 @ 12:11 by Christiano Richard MD) Dyslipidemia Essential (primary) hypertension COPD (chronic obstructive pulmonary disease) Chronic hypoxic respiratory failure, on home oxygen therapy Diabetes mellitus, type II, insulin dependent CAD (coronary artery disease) Paroxysmal A-fib CKD (chronic kidney disease) CHF (congestive heart failure) Respiratory arrest has required intubation Non-STEMI (non-ST elevated myocardial infarction) Contrast-induced nephropathy Surgical History Hx of hysterectomy Hx of CABG Family History Unknown No problems noted. Social History Smoking and tobacco/nicotine status: former use of tobacco/nicotine Alcohol intake: never Substance/Drug Use: never Physical Exam Narrative: EXAM NARRATIVE: General: ill appearing, Skin: pale Head: Normocephalic, atraumatic. Neck: trachea midline. Eye: pupils fixed and dilated Ears, nose, mouth and throat: Some occasional agonal breaths Cardiovascular: No palpable pulse. Respiratory: Agonal occasional gas prior to intubation. Coarse, equal, mechanically ventilated. After intubation Gastrointestinal: Soft, Non distended Musculoskeletal: no deformity. Neurological: non responsive. Psychiatric: unable to evaluate. Course Vital Signs: Vital signs: Vital Signs Temperature 97.6 F 12/06/24 16:00 Pulse Rate 33 L 12/06/24 20:05 Respiratory Rate 20 H 12/06/24 20:05 Blood Pressure 105/51 12/06/24 16:00 Pulse Oximetry 92 12/06/24 20:05 Oxygen Delivery Me thod Nasal Cannula 12/06/24 20:05 Oxygen Flow Rate 2 12/06/24 20:05 MDM - Cardiac Arrest/CPR Medical Decision Making Endotracheal intubation Time: 2019 Confirmed: Patient, procedure, and site correct. Consent: , Emergent. Indication: Respiratory failure. Procedural sedation: Succinylcholine and etomidate . Monitoring: Cardiac, blood pressure, continuous pulse oximetry. Preparation: Pre oxygenated, Inline stabilization of cervical spine maintained, Ensured proper cuff inflation. Technique: Oral intubation: A 8 ET tube was inserted, glydescope, visualized cords and ett passing through cords. . Confirmation of tube placement: Bilateral chest rise, Positive color change indicated on end title CO2. Post procedure exam: Equal breath sounds. Complications: None. Performed by: Self. Total time: 10 minutes. Lab Data 12/06/24 01:05 12/06/24 14:40 Radiology Impressions Chest X-Ray 12/05/24 18:57 IMPRESSION: 1. Bilateral atelectasis, cannot exclude a superimposed infectious process. 2. Small bilateral pleural effusions. Foot CT 12/06/24 01:02 IMPRESSION: 1. Extensive soft tissue edema thickening surrounding the LEFT calcaneus. No underlying destructive bone identified. Debridement was recently performed in this location. 2. Extensive soft tissue thickening involving the first metatarsal head with loss of the normal cortex. Likely osteomyelitis. Debridement has also been recently performed at this level. 3. Amputation first toe. 4. Extensive vascular calcifications. Foot X-Ray 12/06/24 06:28 Impression: 1. Amputation of left first toe. 2. No change in the remainder of the foot from previous left foot x-ray. Laboratory Results WBC 9.69 10^3/uL (3.29-11.43) 12/05/24 19:06 RBC 3.71 10^6/uL (3.85-5.65) L 12/05/24 19:06 Hgb 9.20 g/dL (11.27-16.99) L 12/05/24 19:06 Hct 31.2 % (36-47) L 12/05/24 19:06 MCV 84.1 fl (85-98) L 12/05/24 19:06 MCH 24.8 pg (27-33) L 12/05/24 19:06 MCHC 29.5 g/dL (30-55) L 12/05/24 19:06 RDW 19.1 % (12.1-15.1) H 12/05/24 19:06 Plt Count 334 10^3/cmm (157-399) 12/05/24 19:06 MPV 11.2 fL (7.4-10.4) H 12/05/24 19:06 Neut % (Auto) 83.0 % 12/05/24 19:06 Lymph % (Auto) 8.3 % 12/05/24 19:06 [place] % (Auto) 6.8 % 12/05/24 19:06 Eos % (Auto) 1.3 % 12/05/24 19:06 Baso % (Auto) 0.2 % 12/05/24 19:06 Neut # (Auto) 8.04 10^3/uL (1.8-7.7) H 12/05/24 19:06 Lymph # (Auto) 0.8 10^3/uL (0.8-4.8) 12/05/24 19:06 [place] # (Auto) 0.7 10^3/uL (0.2-0.9) 12/05/24 19:06 Eos # (Auto) 0.1 10^3/uL (0.0-0.8) 12/05/24 19:06 Baso # (Auto) 0.0 10^3/uL (0.0-0.1) 12/05/24 19:06 Nucleated RBC % (auto) 0 % 12/05/24 19:06 Nucleated RBCs # 0.0 /100WBC 12/05/24 19:06 Specimen Type Venous 12/05/24 19:33 Sample Site Not Reportable 12/05/24 19:33 ABG pH 7.39 (7.35-7.45) 12/05/24 19:33 ABG pCO2 44.7 mmHg (35-45) 12/05/24 19:33 ABG pO2 54.1 mmHg (80.0-100.0) L 12/05/24 19:33 ABG PO2/FiO2 Ratio 193 12/05/24 19:33 ABG HCO3 26.8 mmol/L (22-26) H 12/05/24 19:33 ABG O2 Saturation 88.4 12/05/24 19:33 ABG Base Excess 1.5 mmol/L (-2.0-2.0) 12/05/24 19:33 Tanner Test Pos 12/05/24 19:33 A-a O2 Gradient Not Reportable 12/05/24 19:33 Hematocrit 28.0 % (37-47) L 12/05/24 19:33 Hgb O2 Saturation 83.2 % (95-100) L 12/05/24 19:33 Carboxyhemoglobin 5.0 %THgb (0.4-20.1) 12/05/24 19:33 Methemoglobin 0.8 % (0.4-1.5) 12/05/24 19:33 Total Hemoglobin 9.1 g/dL (12-16) L 12/05/24 19:33 Sodium 141.0 mmol/L (131-143) 12/05/24 19:33 Potassium 4.4 mmol/L (3.5-5.0) 12/05/24 19:33 Glucose 222.0 mg/dL (70-115) H 12/05/24 19:33 Ionized Calcium 1.1 mmol/L (1.1-1.4) 12/05/24 19:33 O2 Delivery Device Nc 12/05/24 19:33 O2 Liters/Min 2.0 % 12/05/24 19:33 FiO2 28.0 % 12/05/24 19:33 Varnish Mixer ID [email or web address] 12/05/24 19:33 Sodium 140 mmol/L (136-145) 12/05/24 19:06 Potassium 4.8 mmol/L (3.5-5.1) 12/05/24 19:06 Chloride 101 mmol/L (98-107) 12/05/24 19:06 Carbon Dioxide 27 mmol/L (22-29) 12/05/24 19:06 Anion Gap 16.8 (5-19) 12/05/24 19:06 BUN 20 mg/dL (8-23) 12/05/24 19:06 Creatinine 0.8 mg/dL (0.5-0.9) 12/05/24 19:06 GFR Calculation Not Reportable 12/05/24 19:06 Glucose 275 mg/dL (65-115) H 12/05/24 19:06 Calculated Osmolality 302 mOsm/kg (285-295) H 12/05/24 19:06 Lactic Acid 3.0 mmol/L (0.5-2.2) H 12/05/24 19:06 Calcium 8.9 mg/dL (8.5-10.5) 12/05/24 19:06 Total Bilirubin 0.4 mg/dL (0.15-1.2) 12/05/24 19:06 AST 15 U/L (0-32) 12/05/24 19:06 ALT 36 U/L (0-33) H 12/05/24 19:06 Alkaline Phosphatase 110 U/L (35-105) H 12/05/24 19:06 Troponin T Baseline 61 ng/L (0-10) H 12/05/24 19:06 C-Reactive Protein 34.1 mg/L (0.0-4.9) H 12/05/24 19:06 NT-Pro-B Natriuret Pep 23945 pg/mL (0-450) H 12/05/24 19:06 Total Protein 6.3 g/dL (6.6-8.7) L 12/05/24 19:06 Albumin 3.4 g/dL (3.5-5.2) L 12/05/24 19:06 Globulin 2.9 g/dL (1.3-4.6) 12/05/24 19:06 No radiology studies performed this visit Discharge Plan Discharge Patient Disposition: Admitted As Inpatient Admit Provider: Tara Munguia Clinical Impression: Acute exacerbation of chronic obstructive airways disease, Acute exacerbation of congestive heart failure, Acute on chronic hypoxic respiratory failure, History of amputation of toe, Foot pain Condition: Stable Coding Level of Care Code ED Hand Splitter for Chg F[place]ott
[2024-12-06 20:30] LABS: Hematocrit 33.6 % (36-47); Hemoglobin 9.90 g/dL (11.27-16.99); Mean Corpuscular HGB Conc 29.5 g/dL (30-55); Mean Corpuscular Hemoglobin 25.4 pg (27-33); Mean Corpuscular Volume 86.2 fl (85-98); Nucleated Red Blood Cells % 0.3 %; Platelet Count 239 10^3/cmm (157-399); Red Blood Count 3.90 10^6/uL (3.85-5.65); White Blood Count 15.48 10^3/uL (3.29-11.43)
[2024-12-06 20:37] LABS: ABG PH Result 7.24 (7.35-7.45); Alveolar-Arterial Oxygen Gradi 61.5 mmHg (5-10); Arterial Blood Gas Hematocrit 28.2 % (37-47); Blood Gas Allen Test Pos; Blood Gas LPM 15.0 %; Blood Gas Operator Identificat gerca; Blood Gas Sample Site Brachial, left; Blood Gas Sample Type Arterial; Carboxyhemoglobin 1.0 %THgb (0.4-20.1); Glucose Level-ABG 380.0 mg/dL (70-115); HCO3 ABG 29.3 mmol/L (22-26); Ionized Calcium Level - ABG 1.1 mmol/L (1.1-1.4); Methemoglobin < 0.0 % (0.4-1.5); Oxygen Saturation ABG > 99.1; PO2 ABG 157.0 mmHg (80.0-100.0); PO2 FiO2 Ratio Arterial Blood 157; Potassium Level - ABG 4.7 mmol/L (3.5-5.0); Sodium Level - ABG 143.0 mmol/L (131-143)
[2024-12-06 20:38] LABS: ABG PCO2 67.8 mmHg (35-45)
--- NOTE | 2024-12-06 20:39 | CTR_ITS ---
PROCEDURE INFORMATION: Exam: CT Chest Without Contrast; Diagnostic Exam date and time: 12/07/2024 9:14 AM Age: 84 years old Clinical indication: Other: Sepsis, post cpr TECHNIQUE: Imaging protocol: Diagnostic computed tomography of the chest without contrast. Radiation optimization: All CT scans at this facility use at least one of these dose optimization techniques: automated exposure control; mA and/or kV adjustment per patient size (includes targeted exams where dose is matched to clinical indication); or iterative reconstruction. COMPARISON: CT angio chest PE protcl [id number] 08/24/2024 5:52 AM RADIATION DOSE METRICS: Total DLP (mGy-cm): 987.71 FINDINGS: Tubes, catheters and devices: ETT is in the trachea. NG tube is in the stomach. Lungs: Consolidations are seen in the right upper lobe, right middle lobe, right lower lobe and left lower lobe. Pleural spaces: No pneumothorax. Small left-sided pleural effusion. Heart: Cardiomegaly is seen. Coronary arteries: Coronary calcifications are seen. Lymph nodes: Unremarkable. No enlarged lymph nodes. Vasculature: Mild calcified atherosclerotic changes are seen in the thoracic aorta. Bones/joints: Post sternotomy changes are seen. Acute left 3, 4, 5th, 6 and 7th anterior rib fractures are seen. Additional left posterior chronic rib fractures are seen. Mild diffuse thoracic spine degenerative changes. Soft tissues: Unremarkable. PROCEDURE INFORMATION: Exam: CT Abdomen And Pelvis Without Contrast Exam date and time: 12/07/2024 9:14 AM Age: 84 years old Clinical indication: Other: Sepsis, post cpr TECHNIQUE: Imaging protocol: Computed tomography of the abdomen and pelvis without contrast. Radiation optimization: All CT scans at this facility use at least one of these dose optimization techniques: automated exposure control; mA and/or kV adjustment per patient size (includes targeted exams where dose is matched to clinical indication); or iterative reconstruction. COMPARISON: CT angio chest PE protcl [id number] 08/24/2024 5:52 AM RADIATION DOSE METRICS: Total DLP (mGy-cm): 987.71 FINDINGS: Tubes, catheters and devices: Right groin central line in right common iliac vein. Liver: Normal. No mass. Gallbladder and biliary ducts: Multiple gallstones without evidence of cholecystistis. Pancreas: Normal. No ductal dilation. Spleen: Normal. No splenomegaly. Adrenal glands: Normal. No mass. Kidneys and ureters: Normal. No hydronephrosis. Stomach and bowel: No small bowel loop dilatation. Appendix: Appendix is not visualized. Intraperitoneal space: Unremarkable. No free air. No significant fluid collection. Vasculature: Mild calcified atherosclerotic changes are seen throughout the abdominal aorta. Lymph nodes: Unremarkable. No enlarged lymph nodes. Urinary bladder: Huff catheter in the bladder. Reproductive: Post hysterectomy changes are seen. Bones/joints: Moderate lumbar spine degenerative changes. Soft tissues: Unremarkable. CT/[place] [id number] IMPRESSION: 1. Consolidations are seen in the right upper lobe, right middle lobe, right lower lobe and left lower lobe. Finding could represent multifocal pneumonia or pulmonary edema. Clinical correlation is advised. 2. Small left-sided pleural effusion. 3. Acute left 3, 4, 5th, 6 and 7th anterior rib fractures are seen. No pneumothorax. 4. Cardiomegaly. 5. Coronary calcifications. 6. Mild calcified atherosclerotic changes are seen in the thoracic aorta. 7. Mild diffuse thoracic spine degenerative changes. 8. Additional findings as described. IMPRESSION: 1. Mild calcified atherosclerotic changes are seen throughout the abdominal aorta. 2. Multiple gallstones without evidence of cholecystistis. 3. Moderate lumbar spine degenerative changes. 4. Additional findings as described.
[2024-12-06 20:53] LABS: Alanine Aminotransferase 65 U/L (0-33); Albumin Level 3.1 g/dL (3.5-5.2); Alkaline Phosphatase 97 U/L (35-105); Aspartate Amino Transferase 67 U/L (0-32); Blood Urea Nitrogen 33 mg/dL (8-23); Calcium 8.5 mg/dL (8.5-10.5); Carbon Dioxide 25 mmol/L (22-29); Chloride 96 mmol/L (98-107); Creatinine Clr Calc Pharmacy 35.2824; Globulin 3.0 g/dL (1.3-4.6); Glucose 312 mg/dL (65-115); Magnesium 2.1 mg/dL (1.7-2.3); Osmolality Calculated 303 mOsm/kg (285-295); Sodium 137 mmol/L (136-145); Total Protein 6.1 g/dL (6.6-8.7)
[2024-12-06] MEDS: methylPREDNISolone sod succ 125 mg/2 mL INJ IVP (20:53)
[2024-12-06] MEDS: DOPamine drip 400 MG/250 ML PREMIX 8.7 MG IV (20:53)
[2024-12-06 20:56] LABS: Anion Gap 21.0 (5-19); Potassium 5.0 mmol/L (3.5-5.1)
[2024-12-06 21:05] LABS: Lactate (Lactic Acid level) 5.7 mmol/L (0.5-2.2)
[2024-12-06] MEDS: vasopressin 40 UNIT/100 ML PREMIX 15 UNIT IV (21:06)
--- NOTE | 2024-12-06 21:08 | XRR_ITS ---
PROCEDURE INFORMATION: Exam: XR Chest Exam date and time: 12/06/2024 9:12 PM Age: 84 years old Clinical indication: Device placement; Ett placement (vent status); Prior surgery; Surgery date: 6+ months; Surgery type: Cabg; Check S/P intubation post two rounds of cpr. TECHNIQUE: Imaging protocol: Radiologic exam of the chest. Views: 1 view. COMPARISON: CR (CHEST, ) 12/05/2024 7:19 PM FINDINGS: Tubes, catheters and devices: ETT with tip 1.8 cm above the lupe. NG tube with tip in stomach. Lungs: Perihilar opacities, similar to prior exam. Pleural spaces: No pneumothorax. Heart/Mediastinum: Mildly enlarged pericardial silhouette. Bones/joints: No acute fracture. XR/XR chest 1V portable [id number] IMPRESSION: See above.
--- NOTE | 2024-12-06 21:11 | P.PNCC_ITS ---
Critical Care Event Note Got a call from the floor nurse stating patient is bradycardic with heart rate down to 30s, blood pressure of 87 systolics. Patient asymptomatic. Awake and alert but does appear cold and clammy. Requested for a stat CBC, EKG and 500 cc IV fluid bolus. While those orders were being followed patient had an episode of bradycardic cardiac arrest. She was intubated by the ER provider during CODE BLUE. She had 6 cycles of ACLS protocol chest compressions along with sodium bicarb and atropine after which she achieved ROSC. After achieving ROSC she was found in sinus rhythm at 80 bpm with blood pressure of 160 over 90 mmHg at first which trended down to 80 systolic. She was started on 1 L fluid bolus. Levophed drip which was maxed out to 20. ABG done showed hypercapnia with respiratory acidosis. Stat CBC and CMP showed mild leukocytosis with potassium of 5. Patient was having a gag reflex, tracking in the room, moving both lower limbs but not following directions. Patient had another bradycardic/PEA cardiac arrest for which she had another round of 2 cycles of ACLS protocol chest compressions after which she achieved ROSC again. Blood pressures initially were 200 systolic post achieving ROSC but trended down to 90 systolic. She was started on fixed rate dopamine at 3 along with vasopressin which was added. Patient was transferred to ICU. Given requirement of multiple vasopressors, requirement of IV medications central line was placed. Plan: Keep mean artery pressure over 65. Wean vasopressor off if possible accordingly and then wean Levophed. Continue dopamine at fixed rate overnight. Repeat chest x-ray. Check lactic acid, troponin cycle. Continue with 1 L of fluid bolus. Depending on urine output can plan for repeat IV fluid bolus. Sputum culture. Hold off on Plavix for now till CBC is back. Switch from full dose Eliquis to heparin drip. Cannot rule out PE. Patient does have KRISTEN so cannot get CTA as patient will already be on anticoagulation. Lower limb Dopplers. CT chest abdomen pelvis without contrast once patient is more stable. Monitor urine output. Solu-Medrol 125 mg one-time followed by 40 mg every 8 hourly. Continue with nebulization treatment. Oxygen supplementation keeping saturation over 88%. Goals of care discussions were done with multiple family members at bedside including patient's daughter and patient's son Mr. Miranda over the phone. Mr. Miranda is the DPOA. We discussed unfortunately patient did have 2 long CODE BLUE's in which she had chest compressions for overall around 18 to 20 minutes. Discussed between the code while being on mechanical ventilation, she was opening her eyes and moving her arms but cannot say if she had any significant brain damage as it is too early. Did discuss that unfortunately with the concerns for cardiac arrest there is a high risk of adverse event, . Discussed even if she improves there is a high chance of prolonged hospit alization, slow recovery given her multiple baseline comorbidities and poor quality of life. Son verbalized understanding and wants to continue everything to be done to make sure patient becomes better. He is agreeable to further chest compressions if needed. All the questions were answered. The high probability of a clinically significant, sudden or life threatening deterioration of the patient's [cardiac, pulmonary, renal, CODE BLUE] system(s) required my full and direct attention, intervention and personal management. The critical care time is as shown. This time is in addition to time spent performing any reported procedures but includes the following: [x] Data and vital sign review and interpretation [x] Patient assessment, examination and intervention [x] Documentation [x] Medication orders and management Critical Care Time Code activated: Yes Critical Care Time (min): 90 Procedures Central Line Placement^ Right Femoral: Time out performed: Yes Patient placed on monitor/pulse ox: Yes MD prep: mask, gown and gloves Central line prep: Povidone-Iodine 1%, Chlorhexidine scrub and sterile drapes applied Local anesthesia used: lidocaine 2% Amount of anesthesia used (ml): 5 Ultrasound used for placement: Yes Central line lumen inserted: triple Post procedure: sutured in place, good blood return, all ports aspirated, flushed, capped and sterile dressing applied Post procedure x-ray: other (Not needed) Patient tolerated procedure: well and no complications Coding Level of Care Code Critical Care Other Coding Information This patient has a high probability of clinically significant, sudden or life threatening deterioration of the patient's (neurological/pulmonary/cardiac/renal/ID/endocrine) systems required my full, direct attention, the highest level of physician preparedness for urgent intervention and personal management. I managed/supervised life or organ supporting interventions that required frequent physician assessment. I devoted my full attention in the ICU to the direct care of this patient for the period of time indicated above. Time I spent with family or surrogate(s) is included only if the patient was incapable of providing necessary information or participating in decision making. This time includes the following services provided: Telemetry review Mechanical Ventilation Hemodynamic interpretation, assessment and management Review and interpretation of CXR Review and interpretation of lab values Review and interpretation of microbiologic data and culture results Review of medications and administration Review and interpretation of Nutrition requirements and management Discussion of management with other consultants and services Clinical update to family members Time Spent (min) 90
[2024-12-06] MEDS: propofol 1,000 MG/100 ML INJ 2.32 MG IV (21:26)
[2024-12-06] MEDS: fentaNYL 1,000 MCG/100 ML BAG 10 MCG IV (21:26)
[2024-12-06 21:40] LABS: Troponin(5th) Baseline 77 ng/L (0-10)
--- NOTE | 2024-12-06 22:46 | PC.NURSE ---
Levophed and Vasopression started and titrated above protocol per Dr. Richard, see Mar for administration. Dopamine started at [address] Richard, see mar for administration.
[2024-12-06] MEDS: heparin drip 25,000 UNIT/500 ML PREMIX 22 UNIT IV (23:09)
--- NOTE | 2024-12-06 23:11 | ECG_ITS ---
[facility] Test Date: 2024-12-06 Pat Name: Sally Henderson Department: Room: ICU10 Gender: Female Manager Utilities: : 1940 Requested By: Christiano Richard Order Number: [id number] Reading MD: Boaz Jaramillo M.D. Measurements Intervals [place] Rate: 70 P: 68 ME: 173 QRS: -16 QRSD: 129 T: 151 QT: 404 QTc: 437 Interpretive Statements SINUS RHYTHM MODERATE INTRAVENTRICULAR CONDUCTION DELAY [110+ ms QRS DURATION] MODERATE ST DEPRESSION [0.05+ mV ST DEPRESSION] ABNORMAL QRS-T ANGLE [QRS-T AXIS DIFFERENCE > 60] Compared to ECG 12/06/2024 20:00:00 ST (T wave) deviation now present Sinus bradycardia no longer present Sinus arrhythmia no longer present T-wave abnormality no longer present Possible ischemia no longer present Electronically Signed On 12-07-2024 08:43:21 CDT by Boaz Jaramillo M.D. [email or web address]
--- NOTE | 2024-12-06 23:11 | PC.NURSE ---
Addendum entered by Elsy Sheth RN 12/07/24 01:27: Code Blue (Time 2012) Patient was found to be in bradycardia arrest with zoll showing PEA. Dr. Garcia arrived for code and intubated patient at 2016 with a 7.5 nepali [address] [facility] Dr. Del Castillo arrived shortly after intubation and this nurse provided background on the current situation. ROSC achieved at 2022 SR HR 90. Patient received four epinephrines, 2 amps bicarb, 100 succinylcholine, and [address] Richard updated family who is at nursing station. While waiting for a room in ICU to be cleaned patient began to brandon down again and Dr. Richard ordered 1 mg atropine to be given. Before atropine was given patient arrested again, another reggie meyers was called at 2048. Rosc was achieved at 2054, patient received another dose of epi, dopamine was started, vaso was started, and another amp of bicarb given. Patient in ICU at 2129. Please see MAR and code sheet for more detail. Original Note: Rapid Response into Code Blue (Time 1942) This nurse went to assess patient and obtain vitals. Upon entering the room patient is pale, monitor displayed HR of 40-35. This nurse adjusted telemetry pads and obtained BP. BP on right arm was 83/36 and 82/39. Obtained BP on left arm 87/35. Patient has eyes open, A&Ox4, complaining of pain under her breast from her rash and back pain. Patient then expresses she is going to throw up. Dr. Richard notified regarding HR of 40-35 and low BP then this nurse went to get PRN zofran. Received orders for stat EKG, CBC, and obtain BG. EKG shows bradycardia with HR of 39 and BG of 356. Received additional orders to send picture of EKG and give 500 cc bolus NS. On the way to grab saline bolus patient HR went down into the 20's which was caught by Peggy GAINES. Rapid response was called st 2009 and crash cart brought into room. Upon entering room patient went into asystole on monitor this RN and Peggy RN were unable to find a pulse. CPR started by this RN while Peggy RN grabbed back board and Tyesha GAINES called a code blue at 2012.
[2024-12-06 23:37] LABS: ABG PCO2 44.7 mmHg (35-45); ABG PH Result 7.45 (7.35-7.45); Alveolar-Arterial Oxygen Gradi 79.8 mmHg (5-10); Arterial Blood Gas Hematocrit 31.9 % (37-47); Blood Gas Allen Test Pos; Blood Gas Operator Identificat BD; Blood Gas Sample Site Brachial, left; Blood Gas Sample Type Arterial; Blood Gas Tidal Volume 0.45; Carboxyhemoglobin 1.4 %THgb (0.4-20.1); Glucose Level-ABG 348.0 mg/dL (70-115); HCO3 ABG 30.8 mmol/L (22-26); Ionized Calcium Level - ABG 1.2 mmol/L (1.1-1.4); Methemoglobin 0.7 % (0.4-1.5); Oxygen Saturation ABG 80.7; PEEP 8.0 cmH20; PO2 ABG 43.9 mmHg (80.0-100.0); PO2 FiO2 Ratio Arterial Blood 43; Potassium Level - ABG 4.5 mmol/L (3.5-5.0); Sodium Level - ABG 142.0 mmol/L (131-143)
[2024-12-06 23:38] LABS: INR 1.29 (0.8-1.2); Prothrombin Time 17.00 SECONDS (12.1-14.9)
--- NOTE | 2024-12-06 23:38 | XRR_ITS ---
PROCEDURE INFORMATION: Exam: XR Chest Exam date and time: 12/06/2024 11:52 PM Age: 84 years old Clinical indication: Shortness of breath; Prior surgery; Surgery date: 6+ months; Surgery type: Cabg; Worsening hypoxia while on mechanical ventilation; Additional info: Pulm edema TECHNIQUE: Imaging protocol: Radiologic exam of the chest. Views: 1 view. COMPARISON: CR (CHEST, ) 12/06/2024 9:12 PM FINDINGS: Tubes, catheters and devices: ETT with tip 2.3 cm above the lupe. NG tube with tip in stomach. Lungs: Bilateral mid and lower lung opacities worse at the lung bases. Pleural spaces: No pneumothorax Heart/Mediastinum: Mildly enlarged pericardial silhouette. Bones/joints: Old rib fractures. XR/XR chest 1V portable [id number] IMPRESSION: See above.
[2024-12-06 23:43] LABS: Platelet Count 331 10^3/cmm (157-399)
[2024-12-06 23:44] LABS: Troponin 5 2HR 80.69 ng/L (0-10); Troponin 5 2HR Delta 3.69 ABS# (0-10)
--- NOTE | 2024-12-06 23:51 | ECG_ITS ---
[email or web address] Test Date: 2024-12-06 Pat Name: Sally Henderson Department: Room: ICU10 Gender: Female Desktop Engineer: : 1940 Requested By: Christiano Richard Order Number: [id number] Reading MD: Boaz Jaramillo M.D. Measurements Intervals [place] Rate: 70 P: 53 CT: 160 QRS: -24 QRSD: 130 T: 151 QT: 500 QTc: 543 Interpretive Statements SINUS RHYTHM BORDERLINE LEFT AXIS DEVIATION [QRS AXIS < -20] MODERATE INTRAVENTRICULAR CONDUCTION DELAY [110+ ms QRS DURATION] ST DEVIATION AND MODERATE T-WAVE ABNORMALITY, CONSIDER ANTEROLATERAL ISCHEMIA [-0.1+ mV T-WAVE IN V3-V6] Compared to ECG 12/06/2024 21:58:09 T-wave abnormality now present Possible ischemia now present ST (T wave) deviation no longer present Electronically Signed On 12-07-2024 08:41:04 CDT by Boaz Jaramillo M.D. [email or web address]
[2024-12-07] VITALS (107 sets, daily range): BP systolic 79–143; BP diastolic 36–93; PULSE 69–78; RESP 12–16; TEMP 36.9–37.4; O2SAT 85–100
[2024-12-07] MEDS: norepinephrine 4 MG/250 ML BAG 45 MG IV (00:45)
--- NOTE | 2024-12-07 03:11 | ECG_ITS ---
[facility] Test Date: 2024-12-07 Pat Name: Sally Henderson Department: Room: ICU10 Gender: Female Cutter Apprentice Hand: : 1940 Requested By: Christiano Richard Order Number: [id number] Reading MD: Boaz Jaramillo M.D. Measurements Intervals [place] Rate: 79 P: 35 MI: 159 QRS: -17 QRSD: 116 T: 145 QT: 483 QTc: 555 Interpretive Statements SINUS RHYTHM WITH OCCASIONAL VENTRICULAR PREMATURE COMPLEXES MODERATE INTRAVENTRICULAR CONDUCTION DELAY [110+ ms QRS DURATION] ST DEVIATION AND MODERATE T-WAVE ABNORMALITY, CONSIDER ANTERIOR ISCHEMIA [-0.1+ mV T-WAVE IN V3/V4] Compared to ECG 12/06/2024 23:51:57 Ventricular premature complex(es) now present T-wave abnormality still present Possible ischemia still present Electronically Signed On 12-07-2024 08:42:38 CDT by Boaz Jaramillo M.D. [email or web address] [id number]
[2024-12-07 03:28] LABS: Hematocrit 32.6 % (36-47); Hemoglobin 10.10 g/dL (11.27-16.99); Mean Corpuscular HGB Conc 31.0 g/dL (30-55); Mean Corpuscular Hemoglobin 25.6 pg (27-33); Mean Corpuscular Volume 82.7 fl (85-98); Nucleated Red Blood Cells % 0 %; Platelet Count 331 10^3/cmm (157-399); Red Blood Count 3.94 10^6/uL (3.85-5.65); White Blood Count 28.22 10^3/uL (3.29-11.43)
[2024-12-07 03:47] LABS: Troponin 5 6HR 91.17 ng/L (0-10)
[2024-12-07 03:50] LABS: Lactic Sepsis W/Reflex 2.3 mmol/L (0.5-2.2)
[2024-12-07 03:52] LABS: Alanine Aminotransferase 112 U/L (0-33); Albumin Level 3.1 g/dL (3.5-5.2); Alkaline Phosphatase 105 U/L (35-105); Anion Gap 17.0 (5-19); Aspartate Amino Transferase 130 U/L (0-32); Blood Urea Nitrogen 35 mg/dL (8-23); Calcium 8.4 mg/dL (8.5-10.5); Carbon Dioxide 30 mmol/L (22-29); Chloride 99 mmol/L (98-107); Creatinine Clr Calc Pharmacy 40.7104; Globulin 2.7 g/dL (1.3-4.6); Glucose 280 mg/dL (65-115); Osmolality Calculated 312 mOsm/kg (285-295); Potassium 4.0 mmol/L (3.5-5.1); Sodium 142 mmol/L (136-145); Total Protein 5.8 g/dL (6.6-8.7)
[2024-12-07 03:59] LABS: Reflex Lactate Order REFLEX LACTIC ORDERD
[2024-12-07 04:02] LABS: Troponin 5 6HR Delta 14.17 ng/L (0-12)
[2024-12-07 04:22] LABS: ABG PCO2 46.8 mmHg (35-45); ABG PH Result 7.46 (7.35-7.45); Alveolar-Arterial Oxygen Gradi 77.7 mmHg (5-10); Arterial Blood Gas Hematocrit 33.1 % (37-47); Blood Gas Allen Test Pos; Blood Gas Operator Identificat BD; Blood Gas Sample Site Brachial, right; Blood Gas Sample Type Arterial; Blood Gas Tidal Volume 0.45; Carboxyhemoglobin 1.4 %THgb (0.4-20.1); Glucose Level-ABG 267.0 mg/dL (70-115); HCO3 ABG 33.6 mmol/L (22-26); Ionized Calcium Level - ABG 1.1 mmol/L (1.1-1.4); Methemoglobin 0.9 % (0.4-1.5); Oxygen Saturation ABG 90.4; PEEP 8.0 cmH20; PO2 ABG 56.6 mmHg (80.0-100.0); PO2 FiO2 Ratio Arterial Blood 56; Potassium Level - ABG 3.8 mmol/L (3.5-5.0); Sodium Level - ABG 144.0 mmol/L (131-143)
[2024-12-07] MEDS: methylPREDNISolone sod succ 40 mg/mL INJ IVP ×3 (04:25→20:29)
[2024-12-07] MEDS: piperacillin-tazobactam 3.375 GM in sodium chloride 0.9% (plus) 50 ML IV ×3 (05:27→23:48)
[2024-12-07] MEDS: fentaNYL 1,000 MCG/100 ML BAG 10 MCG IV ×2 (05:33→14:56)
[2024-12-07 05:48] LABS: Partial Thromboplastin Time 84.5 SECONDS (23.9-36.7)
--- NOTE | 2024-12-07 06:00 | XRR_ITS ---
PROCEDURE INFORMATION: Exam: XR Chest Exam date and time: 12/07/2024 5:34 AM Age: 84 years old Clinical indication: Prior surgery; Surgery date: 6+ months; Surgery type: Cabg; F/u resp failure post code blue. ; Additional info: Intubation TECHNIQUE: Imaging protocol: Radiologic exam of the chest. Views: 1 view. COMPARISON: CR (CHEST, ) 12/06/2024 11:52 PM FINDINGS: Tubes, catheters and devices: Stable life-support lines. The endotracheal tube terminates approximately 2 cm above the lupe. Lungs: Bilateral pulmonary infiltrates and effusions, minimally improved. Pleural spaces: Unremarkable. No pleural effusion. No pneumothorax. Heart/Mediastinum: See Vasculature finding. Vasculature: Mild cardiomegaly and uncoiling of the thoracic aorta. Bones/joints: Median sternotomy for CABG. XR/XR chest 1V portable [id number] IMPRESSION: Persistent CHF.
[2024-12-07 06:59] LABS: Lactic Acid level (Lactate) 2.4 mmol/L (0.5-2.2)
[2024-12-07] MEDS: ranolazine (12HR) 500 mg Tablet 1000 MG PO ×2 (08:25→17:02)
[2024-12-07] MEDS: FUROsemide 10 mg/mL SDV 10mL 60 MG IVP (08:26)
[2024-12-07] MEDS: norepinephrine 4 MG/250 ML BAG 15 MG IV (08:50)
[2024-12-07] MEDS: propofol 1,000 MG/100 ML INJ 9.28 MG IV (08:51)
[2024-12-07 10:12] LABS: ABG PCO2 43.5 mmHg (35-45); ABG PH Result 7.49 (7.35-7.45); Alveolar-Arterial Oxygen Gradi 57.3 mmHg (5-10); Arterial Blood Gas Hematocrit 34.5 % (37-47); Blood Gas Allen Test Pos; Blood Gas Operator Identificat GD; Blood Gas Sample Site Radial, left; Blood Gas Sample Type Arterial; Blood Gas Tidal Volume 0.40; Carboxyhemoglobin 1.3 %THgb (0.4-20.1); Glucose Level-ABG 178.0 mg/dL (70-115); HCO3 ABG 33.5 mmol/L (22-26); Ionized Calcium Level - ABG 1.1 mmol/L (1.1-1.4); Methemoglobin 0.1 % (0.4-1.5); Oxygen Saturation ABG 97.2; PO2 ABG 76.0 mmHg (80.0-100.0); PO2 FiO2 Ratio Arterial Blood 95; Potassium Level - ABG 3.6 mmol/L (3.5-5.0); Sodium Level - ABG 146.0 mmol/L (131-143)
[2024-12-07 10:13] LABS: PEEP 8.0 cmH20
--- NOTE | 2024-12-07 12:17 | P.PN_ITS ---
Subjective 2 Subjective: Overnight patient has remained on 100% FiO2. Appreciate ABG. Vasopressin has been weaned off. Currently on Levophed of 4. [place] pressure maintained over 65. Patient remains sedated on fentanyl of 100 and propofol 15. Vitals/I&O/Wt Last Vital Signs Temp 99 F 12/07/24 08:00 Pulse 72 12/07/24 11:15 Resp 12 12/07/24 12:05 BP 114/55 12/07/24 11:15 Pulse Ox 98 12/07/24 12:05 O2 Del Method Mechanical Ventilation 12/07/24 08:14 O2 Flow Rate 2 12/06/24 20:05 FiO2 70 12/07/24 12:05 12/06/24 12/07/24 12/07/24 22:59 06:59 14:59 Intake Total 780.723 / 1430.723 581.161 / 2011.884 261.795 / 261.795 Output Total 100 / 710 1950 / 2660 250 / 250 Balance 680.723 / 720.723 -1368.839 / -648.116 11.795 / 11.795 Weight last 48 hrs Weight 77 kg Weight 77.292 kg Weight 77.819 kg Physical Exam 2 Narrative: General: No acute distress, AO x3 HEENT: PERRLA, pupils bilaterally equal and reactive, pallors not present Chest: Normal vesicular breath sounds, no added sounds, equal good air entry bilaterally CVS: S1-S2 regular, no murmurs, no tachycardia, no gallops, no rubs Abdomen: Soft, nontender, no organomegaly, bowel sounds present Neuro: No focal deficits, no facial deformity, AO x3, power 5/5 in all limbs Extremities: Noted wound dehiscence over surgical site over left foot at site of great toe amputation. Abundant necrotic material was encountered which was cleaned when the wound was redressed. Per nursing report there were maggots encountered in the wound. Additional wound noted over her left heel posteriorly. Urinary Catheter Management: Huff: Cath Placed During This Visit: yes Reason for Continuing Indwelling Catheter: Accurate Measurement of Urinary Output in Critically Ill Patients Urinary Catheter Date of Insertion: 12/05/24 Urinary Catheter Time of Insertion: 22:48 Data 12/07/24 03:19 12/07/24 03:19 Micro: Microbiology 12/05/24 19:35 Blood Culture - Preliminary Blood NEGATIVE TO DATE 12/05/24 19:33 Blood Culture - Preliminary Blood NEGATIVE TO DATE 12/06/24 11:48 Gram Stain - Final Other Source 12/06/24 11:33 Gram Stain - Final Bone A&P Assessment and plan 1. Bradycardic cardiac arrest: 2. Septic shock: 3. Acute on chronic hypoxic respiratory failure: 4. Acute on chronic systolic congestive heart failure: 5. KRISTEN (acute kidney injury): 6. 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 She has had poor wound healing afterwards. Appreciate podiatry recommendations. Post incision and drainage and secondary closure of surgical wound on 12/06. Follow-up cultures. Wound care dressing as per podiatry team 7. Osteomyelitis of great toe of left foot: 8. COPD (chronic obstructive pulmonary disease): 9. Pulmonary edema: 10. Infected wound: Podiatry Service consulted 11. Diabetes mellitus: Uncontrolled type 2 diabetes mellitus with A1c of more than 10. Insulin sliding scale low-dose protocol. Takes Lantus 27 units at home. For continue with 20 units nightly. Will uptitrate as per insulin requirements in next 24 hours. 12. Paroxysmal A-fib: Patient has a known history of atrial fibrillation. Having episodes of bradycardia. Telemetry monitoring. Plan: Bradycardic cardiac arrest: Had 2 separate ACLS protocol chest compressions of overall around 15 to 18 minutes on 12/06. Achieved ROSC both times. Between cardiac arrest patient was moving all limbs, having gag reflex and opening eyes. For bradycardia: Patient has a history of atrial fibrillation. For now we will hold off on amiodarone. Hold off on dopamine and monitor heart rate. Maintain potassium around 4, magnesium around 2. Septic shock: SIRS: Tachycardic, Febrile, Leukocytosis Source: Osteomyelitis, cellulitis End organ damage: KRISTEN, cardiac arrest, septic shock Lactic acid elevated Patient did not receive full 30 mL/kg BW given concerns for congestive heart failure. Currently on Levophed at 4. Vasopressin has been weaned off. Dopamine at 3. Wean vasopressors keeping mean artery pressure over 65. Stop dopamine and monitor heart rate. Follow-up blood culture, OR cultures, sputum culture, trend procalcitonin. Check bacterial infiltrate. Continue with empiric IV vancomycin and Zosyn for now. Dose as per creatinine clearance. Acute on chronic hypoxic and hypercapnic respiratory failure: Most likely in setting of congestive heart failure along with aspiration pneumonia which patient had during cardiac arrest along with COPD exacerbation. Oxygen supplementation keeping saturation over 88%. Continue with Solu-Medrol 40 mg every 8 hourly. DuoNeb every 6 hour, Pulmicort twice daily. Follow-up sputum culture. CT chest. Aggressive pulmonary toilet with chest vest. Daily ABG, chest x-ray. Continue sedation with propofol and fentanyl. Daily sedation vacation. Does have a history of systolic and diastolic heart failure with last known EF of 45%. Fluid restriction to less than 1500 cc. IV Lasix 40 mg one-time. Will repeat Lasix depending on renal functions and urine output later in the day. Strict improved charting, daily weights. Atrial fibrillation: Rate limiting medications as above. Given cardiac event for now we will hold off on Eliquis and switch to heparin drip and continue to monitor PTTs. History of CAD: Follow-up troponin levels. Continue with home dose of Plavix. Check echocardiogram. Goals of care discussion: Discussed multiple times in detail during CODE BLUE with multiple family members including patient's daughter and DPOA/son over the phone. Updated patient's son Jos over the phone again today. All the questions were answered. We again discussed that patient is critically ill on pressors postcardiac arrest and mechanical ventilation with concerns for aspiration pneumonia, septic shock. We discussed as of not is difficult to say if she sustained or how much brain damage she sustained during the cardiac arrest. Anesthesia: Fentanyl, propofol Glycemic control: Insulin sliding scale at moderate dose protocol every 6 hour Nutrition: N.p.o. CODE STATUS: Discussed in detail with patient's son/DPOA again. Full code. PUD prophylaxis: Protonix DVT prophylaxis: Heparin drip will be sufficient for DVT prophylaxis Discharge planning: Depending on clinical improvement going forward Continue with care at ICU This documentation was created by [employer] lead sewage plant operator software. Every effort was made to ensure accuracy of lead sewage plant operator. Any obvious errors or omissions should be clarified with the author of the document. PDMP PDMP Reviewed: Not Reviewed Attestations 2 Medical Necessity Statement*: Patient requires further hospitalization for postcardiac arrest care, septic shock, respiratory failure, congestive heart failure, aspiration pneumonia in a patient admitted for osteomyelitis post debridement Critical Care Time: The high probability of a clinically significant, sudden or life threatening deterioration of the patient's [cardiac, pulmonary, renal, goals of care discussion, ID] system(s) required my full and direct attention, intervention and personal management. The critical care time is as shown. This time is in addition to time spent performing any reported procedures but includes the following: [x] Data and vital sign review and interpretation [x] Patient assessment, examination and intervention [x] Documentation [x] Medication orders and management Critical Care Time (min): 90 Coding Level of Care Code Critical Care >/= 30 minutes Critical care time (in minutes): 90 The high probability of a clinically significant, sudden or life threatening deterioration, as referenced in this documentation, required my full and direct attention, intervention and personal management. The critical care time shown is in addition to time spent performing any reported separately billable procedures and includes the following: [x] Data and vital sign review and interpretation [x ] Patient assessment, examination and intervention [x] Medication orders and management [x] Patient/Family updates as able [x] Care Coordination and Documentation. Other Coding Information This patient has a high probability of clinically significant, sudden or life threatening deterioration of the patient's (neurological/pulmonary/cardiac/renal/ID/endocrine) systems required my full, direct attention, the highest level of physician preparedness for urgent intervention and personal management. I managed/supervised life or organ supporting interventions that required frequent physician assessment. I devoted my full attention in the ICU to the direct care of this patient for the period of time indicated above. Time I spent with family or surrogate(s) is included only if the patient was incapable of providing necessary information or participating in decision making. This time includes the following services provided: Telemetry review Mechanical Ventilation Hemodynamic interpretation, assessment and management Review and interpretation of CXR Review and interpretation of lab values Review and interpretation of microbiologic data and culture results Review of medications and administration Review and interpretation of Nutrition requirements and management Discussion of management with other consultants and services Clinical update to family members Diagnoses Bradycardic cardiac arrest R00.1; I46.2 Septic shock A41.9; R65.21 Acute on chronic hypoxic respiratory failure J96.21 Acute on chronic systolic congestive heart failure I50.23 Heart failure type: systolic KRISTEN (acute kidney injury) N17.9 Wound dehiscence T81.30XA Osteomyelitis of great toe of left foot M86.9 COPD (chronic obstructive pulmonary disease) J44.9 Pulmonary edema J81.1 Infected wound T14.8XXA; L08.9 Diabetes mellitus E11.9 Paroxysmal A-fib I48.0
[2024-12-07] MEDS: FUROsemide 10 mg/mL SDV 4mL 40 MG IVP (12:30)
[2024-12-07 12:48] LABS: Partial Thromboplastin Time 90.2 SECONDS (23.9-36.7)
[2024-12-07 16:39] LABS: Blood Urea Nitrogen 33 mg/dL (8-23); Calcium 7.9 mg/dL (8.5-10.5); Carbon Dioxide 31 mmol/L (22-29); Chloride 98 mmol/L (98-107); Creatinine Clr Calc Pharmacy 37.6597; Glucose 258 mg/dL (65-115); Osmolality Calculated 312 mOsm/kg (285-295); Sodium 143 mmol/L (136-145)
[2024-12-07 16:51] LABS: Anion Gap 17.7 (5-19); Potassium 3.7 mmol/L (3.5-5.1)
[2024-12-07] MEDS: heparin drip 25,000 UNIT/500 ML PREMIX 17 UNIT IV (18:16)
--- NOTE | 2024-12-07 18:48 | PC.NURSE ---
Shift SUmmary: Mental status: sedated throughout the day, with stimulation she will occaisonally open eyes and attempt to grab at ET tube. At one point with inline suction, patient woke up was tracking staff with eyes, and was mouthing words and gesturing towards the ET tube. Total Urine output: 2750ml..... see critical care message to nurse order regarding lasix and urine output for 12/07/2024
--- NOTE | 2024-12-07 18:59 | P.PN_ITS ---
Subjective 2 Subjective: Patient seen bedside she is intubated on ventilator, her son Jos is present. Vitals/I&O/Wt Last Vital Signs Temp 98.7 F 12/07/24 17:00 Pulse 73 12/07/24 18:45 Resp 12 12/07/24 17:30 BP 118/73 12/07/24 18:45 Pulse Ox 93 12/07/24 18:45 O2 Del Method Mechanical Ventilation 12/07/24 18:45 O2 Flow Rate 2 12/06/24 20:05 FiO2 40 12/07/24 18:45 12/07/24 12/07/24 12/07/24 06:59 14:59 22:59 Intake Total 581.161 / 2011.884 885.253 / 885.253 142.80 / 1028.053 Output Total 1950 / 2660 1250 / 1250 1500 / 2750 Balance -1368.839 / -648.116 -364.747 / -364.747 -1357.20 / -1721.947 Weight last 48 hrs Weight 169 lb 12.095 oz Weight 170 lb 6.4 oz Weight 171 lb 9 oz Physical Exam 2 Narrative: Patient is alert and oriented ?3 and in no acute distress. The following is a focused bilateral lower extremity exam. VASCULAR: Dorsalis pedis diminished bilaterally. Posterior tibial arteries diminished. Capillary refill time less than 5 seconds to the distal hallux bilaterally. Calf is supple and nontender proximally and distally. Decreased pedal hair growth. NEUROLOGICAL: Protective sensation intact 6/10 sites, tested with Raymond Sergio monofilament to bilateral feet. DERMATOLOGICAL: Surgical dressing is clean, dry and intact without strikethrough bleeding and no proximal lymphangitic streaking. 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 Urinary Catheter Management: Huff: Cath Placed During This Visit: yes Reason for Continuing Indwelling Catheter: Accurate Measurement of Urinary Output in Critically Ill Patients Urinary Catheter Date of Insertion: 12/05/24 Urinary Catheter Time of Insertion: 22:48 Data 12/08/24 01:36 12/08/24 04:53 Micro: Microbiology 12/06/24 11:48 Gram Stain - Final Other Source Wound Culture - Preliminary Gram Negative Rods Gram Negative Rods#2 12/06/24 11:33 Gram Stain - Final Bone Tissue Culture - Preliminary 12/05/24 19:35 Blood Culture - Preliminary Blood NEGATIVE TO DATE 12/05/24 19:33 Blood Culture - Preliminary Blood NEGATIVE TO DATE A&P Assessment and plan 1. Diabetic ulcer of left heel associated with type 2 diabetes mellitus, with necrosis of muscle: 2. 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 Non-pressure chronic ulcer of other part of left foot with necrosis of bone: 4. Infestation, maggots: Left foot great toe amputation site 12/05/2024 witnessed by nursing staff at cardiac stepdown unit. 5. Noncompliance: History of noncompliance with offloading recommendations for foot wounds specifically cam boot and diabetic shoe package. History of noncompliance with recommendation of [facility] facility placement and services. Plan: Once daily dressing change left posterior heel wound primary dressing of silver alginate followed by 4 x 4 gauze, Kerlix and tape, no compressive dressing secondary to peripheral arterial disease. Surgical dressing at delayed closure left forefoot to be left intact. Float left heel for offloading at all times. Delayed closure site well-healing no clinical signs of infection, left posterior heel wound also well-healing without clinical signs of infection. No further surgical intervention from podiatry standpoint anticipated during his hospitalization. Both surgical sites are well-healing. Podiatry will follow. 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
[2024-12-07 19:29] LABS: Partial Thromboplastin Time 86.7 SECONDS (23.9-36.7)
--- NOTE | 2024-12-07 21:33 | USCV_ITS ---
Sally Henderson Age: 84 Gender: F : 1940 Exam Date: 12/07/2024 15:03 Ordering Phys: Christiano Richard MD Technologist: Brad Rankin Exam Location: [facility] [place] Indication: status post cpr BP: 76 / 45 HR: 71 Rhythm: Sinus Technical Quality: Adequate MEASUREMENTS (Male / Female) Normal Values 2D ECHO LV Diastolic Diameter PLAX 4.6 cm 4.2 - 5.9 / 3.9 - 5.3 cm IVS Diastolic Thickness 1.4 cm 0.6 - 1.0 / 0.6 - 0.9 cm LVPW Diastolic Thickness 1.0 cm 0.6 - 1.0 / 0.6 - 0.9 cm LVPW Systolic Thickness 1.3 cm LVOT Diameter 2.1 cm LV Ejection Fraction MOD 4C 41.9 % LV Ejection Fraction MOD 2C 45.7 % LV Ejection Fraction 2C AL 44.5 % LA Diameter 3.7 cm RA Systolic Volume 4C AL 46.2 ml RA Systolic Volume 4C MOD 40.5 ml LA Sys Volume AL 71.2 cm cubed LA Sys Volume Index AL 39.1 cm cubed/m squared Aorta at Sinotubular Diameter 2.2 cm IVC Diameter 1.5 cm M-MODE LA Ao Ratio MM 1.4 AV Cusp Separation MM 1.2 cm DOPPLER AV Peak Velocity 122.0 cm/s LVOT Peak Velocity 85.0 cm/s AV Area Cont Eq vti 2.7 cm squared AV Area Cont Eq pk 2.4 cm squared MV Peak Velocity 367.0 cm/s MV Area PHT 7.4 cm squared Mitral E to A Ratio 1.0 TV Peak Velocity 348.3 cm/s TR Peak Velocity 395.0 cm/s TR Peak Gradient 62.4 mmHg TR Mean Velocity 293.0 cm/s TR Mean Gradient 38.6 mmHg TR Velocity Time Integral 93.8 cm PV Peak Velocity 89.3 cm/s RV Ejection Time 0.3 s FINDINGS Left Ventricle Normal left ventricular cavity size. Mild septal hypertrophy. Mildly reduced left ventricular systolic function, EF 45%. Akinesis of the mid and basal inferior and inferolateral wall segments. Normal left ventricular diastolic function. Right Ventricle Normal right ventricular cavity size. Mild RV hypokinesis Right Atrium Normal right atrial size Left Atrium Mild enlargement of left atrium Mitral Valve Mild mitral valve regurgitation. Mild mitral annular calcification Aortic Valve Calcified aortic valve without stenosis or regurgitation. Tricuspid Valve Trace tricuspid valve regurgitation. Severe pulmonary hypertension. Pulmonary artery systolic pressure 70 mmHg on ventilator. Pulmonic Valve Trace pulmonic valve regurgitation Pericardium No pericardial effusion Aorta Normal size of aortic root and ascending aorta IVC Normal IVC size. No IVC collapse on ventilator. CONCLUSIONS 1. Mild left ventricular systolic dysfunction with akinesis of the inferior and inferolateral parkinson, EF 45% 2. Mild right ventricular hypokinesis 3. Severe pulmonary hypertension, RVSP 70 mmHg 4. Aortic valve sclerosis Aleksey Velasquez MD (Electronically Signed) Final Date: 08 December 2024 15:17 S
[2024-12-07] MEDS: propofol 1,000 MG/100 ML INJ 11.59 MG IV (21:34)
[2024-12-07] MEDS: norepinephrine 4 MG/250 ML BAG 22.5 MG IV (21:58)
[2024-12-08] VITALS (103 sets, daily range): BP systolic 82–134; BP diastolic 21–103; PULSE 60–91; RESP 12–38; TEMP 36.2–37; O2SAT 86–100
[2024-12-08] MEDS: fentaNYL 1,000 MCG/100 ML BAG 12.5 MCG IV (00:17)
[2024-12-08 02:10] LABS: Hematocrit 31.0 % (36-47); Hemoglobin 9.60 g/dL (11.27-16.99); Mean Corpuscular HGB Conc 31.0 g/dL (30-55); Mean Corpuscular Hemoglobin 25.1 pg (27-33); Mean Corpuscular Volume 80.9 fl (85-98); Nucleated Red Blood Cells % 0.1 %; Platelet Count 294 10^3/cmm (157-399); Red Blood Count 3.83 10^6/uL (3.85-5.65); White Blood Count 24.60 10^3/uL (3.29-11.43)
[2024-12-08 02:24] LABS: Partial Thromboplastin Time 55.6 SECONDS (23.9-36.7)
--- NOTE | 2024-12-08 03:29 | PM.MISC ---
Miscellaneous Note Purpose of Documentation: Patient self extubated at this time. she is awake, alert and oriented x 3, able to hold a conversation. 02 sat 90% on supplemental 02 via NC. BP 115/60mmhg HR 80 per min. Closely monitor on NC for now
--- NOTE | 2024-12-08 03:32 | PC.RESP ---
extubated pt self extubated and placed on 4lpm nc
--- NOTE | 2024-12-08 03:46 | PC.NURSE ---
Patient self extubated at 0315, RT and physician called to bedside. Pt alert and oriented X3, and asking for a cookie and a drink. Pt O2 saturation 91 on 4 liters nasal cannula.
[2024-12-08] MEDS: morphine 4 mg/mL SDV 1 mL 2 MG IVP ×3 (04:30→13:14)
--- NOTE | 2024-12-08 06:00 | XRR_ITS ---
PROCEDURE INFORMATION: Exam: XR Chest Exam date and time: 12/08/2024 5:54 AM Age: 84 years old Clinical indication: Prior surgery; Surgery date: 6+ months; Surgery type: Cabg; F/u resp failure. Patient self extubated at 0330 hours. ; Additional info: Intubation TECHNIQUE: Imaging protocol: Radiologic exam of the chest. Views: 1 view. COMPARISON: CT chest abdpel [id number] 12/07/2024 9:14 AM FINDINGS: Tubes, catheters and devices: No visible endotracheal tube. Lungs: Congestive heart failure with vascular engorgement, interstitial edema, small pleural effusions, and bilateral lower lobe infiltrates. Pleural spaces: See Lungs finding. Heart/Mediastinum: Prior CABG. Bones/joints: Deformity from healed left rib fractures. XR/XR chest 1V portable [id number] IMPRESSION: 1. CHF. 2. No endotracheal tube visible.
[2024-12-08 06:02] LABS: Partial Thromboplastin Time 47.1 SECONDS (23.9-36.7)
[2024-12-08 06:09] LABS: Alanine Aminotransferase 68 U/L (0-33); Albumin Level 2.7 g/dL (3.5-5.2); Alkaline Phosphatase 91 U/L (35-105); Anion Gap 19.4 (5-19); Aspartate Amino Transferase 32 U/L (0-32); Blood Urea Nitrogen 30 mg/dL (8-23); Calcium 7.8 mg/dL (8.5-10.5); Carbon Dioxide 31 mmol/L (22-29); Chloride 95 mmol/L (98-107); Creatinine Clr Calc Pharmacy 43.9363; Globulin 3.3 g/dL (1.3-4.6); Glucose 302 mg/dL (65-115); Osmolality Calculated 311 mOsm/kg (285-295); Potassium 3.4 mmol/L (3.5-5.1); Sodium 142 mmol/L (136-145); Total Protein 6.0 g/dL (6.6-8.7)
[2024-12-08] MEDS: methylPREDNISolone sod succ 40 mg/mL INJ IVP ×3 (06:14→21:04)
[2024-12-08] MEDS: piperacillin-tazobactam 3.375 GM in sodium chloride 0.9% (plus) 50 ML IV ×3 (06:15→23:01)
[2024-12-08] MEDS: cetylpyridinium Lozenge 1 EACH MUCOUS MEM (06:45)
[2024-12-08] MEDS: ranolazine (12HR) 500 mg Tablet 1000 MG PO ×2 (09:10→17:41)
[2024-12-08 09:11] LABS: Partial Thromboplastin Time 46.3 SECONDS (23.9-36.7)
[2024-12-08] MEDS: heparin 5,000 unit/mL INJ 1 mL IVP ×2 (09:23→18:03)
[2024-12-08] MEDS: FUROsemide 10 mg/mL SDV 4mL 40 MG IVP ×2 (10:39→17:44)
[2024-12-08] MEDS: ondansetron 2 mg/ML SDV 2 mL 4 MG IVP ×2 (11:41→17:39)
[2024-12-08] MEDS: lidocaine 2% viscous 15 ML, aluminum-mag hydrox-simethicon 30 ML, sucralfate oral liq 1 GM PO (12:47)
--- NOTE | 2024-12-08 13:14 | P.PN_ITS ---
Subjective 2 Subjective: Overnight patient self extubated. Currently on examination on 3 L of oxygen supplementation, awake and alert x 4. Denies any nausea, vomiting, headache. Complaining of feeling weak and having pain in her back. Appreciate urine output. Vitals/I&O/Wt Last Vital Signs Temp 97.1 F L 12/08/24 08:00 Pulse 65 12/08/24 11:15 Resp 16 12/08/24 11:15 BP 126/30 12/08/24 11:15 Pulse Ox 94 12/08/24 11:15 O2 Del Method Room Air 12/08/24 10:30 O2 Flow Rate 4 12/08/24 10:30 FiO2 40 12/08/24 03:00 12/07/24 12/08/24 12/08/24 22:59 06:59 14:59 Intake Total 446.534 / 1331.787 368.980 / 1700.767 145.667 / 145.667 Output Total 2050 / 3300 400 / 3700 50 / 50 Balance -1603.466 / -1968.213 -31.020 / -1999.233 95.667 / 95.667 Weight last 48 hrs Weight 73.2 kg Weight 77 kg Physical Exam 2 Narrative: General: No acute distress, AO x3 HEENT: PERRLA, pupils bilaterally equal and reactive, pallors not present Chest: Normal vesicular breath sounds, no added sounds, equal good air entry bilaterally CVS: S1-S2 regular, no murmurs, no tachycardia, no gallops, no rubs Abdomen: Soft, nontender, no organomegaly, bowel sounds present Neuro: No focal deficits, no facial deformity, AO x3, power 5/5 in all limbs Extremities: Noted wound dehiscence over surgical site over left foot at site of great toe amputation. Abundant necrotic material was encountered which was cleaned when the wound was redressed. Per nursing report there were maggots encountered in the wound. Additional wound noted over her left heel posteriorly. Urinary Catheter Management: Huff: Cath Placed During This Visit: yes Reason for Continuing Indwelling Catheter: Accurate Measurement of Urinary Output in Critically Ill Patients Urinary Catheter Date of Insertion: 12/05/24 Urinary Catheter Time of Insertion: 22:48 Data 12/08/24 01:36 12/08/24 04:53 Micro: Microbiology 12/06/24 12:00 Gram Stain - Final Sputum - Endotracheal Tube Aspirate Sputum Culture - Preliminary 12/06/24 11:33 Gram Stain - Final Bone Anaerobic Culture - Preliminary Tissue Culture - Preliminary 12/06/24 11:48 Anaerobic Culture - Preliminary Other Source 12/06/24 11:48 Gram Stain - Final Other Source Wound Culture - Preliminary Gram Negative Rods Gram Negative Rods#2 A&P Assessment and plan 1. Bradycardic cardiac arrest: 2. Septic shock: 3. Acute on chronic hypoxic respiratory failure: 4. Self extubation: 5. Acute on chronic systolic congestive heart failure: 6. KRISTEN (acute kidney injury): 7. 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 She has had poor wound healing afterwards. Appreciate podiatry recommendations. Post incision and drainage and secondary closure of surgical wound on 12/06. Follow-up cultures. Wound care dressing as per podiatry team 8. Osteomyelitis of great toe of left foot: 9. Panlobular emphysema: 10. Pulmonary edema: 11. Infected wound: Podiatry Service consulted 12. Diabetes mellitus: Uncontrolled type 2 diabetes mellitus with A1c of more than 10. Insulin sliding scale low-dose protocol. Takes Lantus 27 units at home. Restart Lantus as per insulin requirement in next 24 hours. 13. Paroxysmal A-fib: Patient has a known history of atrial fibrillation. Having episodes of bradycardia. Telemetry monitoring. Plan: Bradycardic cardiac arrest: Had 2 separate ACLS protocol chest compressions of overall around 15 to 18 minutes on 12/06. Achieved ROSC both times. Between cardiac arrest patient was moving all limbs, having gag reflex and opening eyes. Patient off sedation. Awake and alert. Moving all limbs. Physical therapy/Occupational Therapy evaluation. For bradycardia: Patient has a history of atrial fibrillation. Heart rate has remained stable after stopping dopamine drip. Continue to hold off on amiodarone. Telemetry monitoring. Maintain potassium around 4, magnesium around 2. Septic shock: SIRS: Tachycardic, Febrile, Leukocytosis Source: Osteomyelitis, cellulitis End organ damage: KRISTEN, cardiac arrest, septic shock Lactic acid elevated Patient did not receive full 30 mL/kg BW given concerns for congestive heart failure. Currently on Levophed at 4. Wean Levophed keeping mean arterial pressure over 65. Follow-up blood culture, OR cultures, sputum culture, trend procalcitonin. Continue with empiric IV vancomycin and Zosyn for now. Dose as per creatinine clearance. Acute on chronic hypoxic and hypercapnic respiratory failure: Most likely in setting of congestive heart failure along with aspiration pneumonia which patient had during cardiac arrest along with COPD exacerbation. Oxygen supplementation keeping saturation over 88%. Continue with Solu-Medrol 40 mg every 8 hourly. DuoNeb every 6 hour, Pulmicort twice daily. Plan to wean Solu-Medrol in next 24 hours. Self extubated on 12/07 night. Follow-up sputum culture. Appreciate CT chest. Aggressive pulmonary toilet with I-S and Acapella. Cannot use chest vest given multiple rib fractures. Does have a history of systolic and diastolic heart failure with last known EF of 45%. Fluid restriction to less than 1500 cc. Appreciate urine output. Patient extubated as above. IV Lasix 40 mg every 8 hourly. Monitor renal functions for hypokalemia and contraction alkalosis. Strict improved charting, daily weights. Atrial fibrillation: Rate limiting medications as above. Continue with heparin drip for now. Will transition to Eliquis again if remains hemodynamically stable and able to maintain oral intake in next 24 hours History of CAD: Follow-up troponin levels. Continue with home dose of Plavix. Echocardiogram pending. Goals of care discussion: Discussed multiple times in detail during CODE BLUE with multiple family members including patient's daughter and DPOA/son over the phone. Updated patient's son Jos over the phone again today. All the questions were answered. We again discussed that patient is critically ill on pressors postcardiac arrest and mechanical ventilation with concerns for aspiration pneumonia, septic shock. We discussed as of not is difficult to say if she sustained or how much brain damage she sustained during the cardiac arrest. Analgesia:Morphine 1 mg every 4 hours as needed, tramadol 50 mg every 4 hours as needed Glycemic control: Insulin sliding scale at moderate dose protocol AC and at bedtime. Depending on requirement in next 24 hours can add Lantus Nutrition: N.p.o. advance diet as per speech evaluation. PT/OT evaluation. CODE STATUS: Discussed in detail with patient's son/DPOA again. Full code. Discussed again with patient today he is awake and alert. She wants to remain full code. PUD prophylaxis: Protonix DVT prophylaxis: Heparin drip will be sufficient for DVT prophylaxis Out of bed to chair. Discharge planning: Depending on clinical improvement going forward Continue with care at ICU This documentation was created by [employer] portable machine sander software. Every effort was made to ensure accuracy of portable machine sander. Any obvious errors or omissions should be clarified with the author of the document. PDMP PDMP Reviewed: Not Reviewed Attestations 2 Medical Necessity Statement*: Requires further hospitalization for management of septic shock, postcardiac arrest, acute respiratory failure due to congestive heart failure, pneumonia, COPD exacerbation, self extubation in a patient initially admitted with osteomyelitis post I&D and secondary wound closure Critical Care Time: The high probability of a clinically significant, sudden or life threatening deterioration of the patient's [cardiac, pulmonary, renal, ID] system(s) required my full and direct attention, intervention and personal management. The critical care time is as shown. This time is in addition to time spent performing any reported procedures but includes the following: [x] Data and vital sign review and interpretation [x] Patient assessment, examination and intervention [x] Documentation [x] Medication orders and management Critical Care Time (min): 70 Coding Level of Care Code Critical Care >/= 30 minutes Critical care time (in minutes): 70 The high probability of a clinically significant, sudden or life threatening deterioration, as referenced in this documentation, required my full and direct attention, intervention and personal management. The critical care time shown is in addition to time spent performing any reported separately billable procedures and includes the following: [x] Data and vital sign review and interpretation [x ] Patient assessment, examination and intervention [x] Medication orders and management [x] Patient/Family updates as able [x] Care Coordination and Documentation. Other Coding Information This patient has a high probability of clinically significant, sudden or life threatening deterioration of the patient's (neurological/pulmonary/cardiac/renal/ID/endocrine) systems required my full, direct attention, the highest level of physician preparedness for urgent intervention and personal management. I managed/supervised life or organ supporting interventions that required frequent physician assessment. I devoted my full attention in the ICU to the direct care of this patient for the period of time indicated above. Time I spent with family or surrogate(s) is included only if the patient was incapable of providing necessary information or participating in decision making. This time includes the following services provided: Telemetry review Nonmechanical ventilation Hemodynamic interpretation, assessment and management Review and interpretation of CXR Review and interpretation of lab values Review and interpretation of microbiologic data and culture results Review of medications and administration Review and interpretation of Nutrition requirements and management Discussion of management with other consultants and services Clinical update to family members Diagnoses Bradycardic cardiac arrest R00.1; I46.2 Septic shock A41.9; R65.21 Acute on chronic hypoxic respiratory failure J96.21 Self extubation Z91.199 Acute on chronic systolic congestive heart failure I50.23 Heart failure type: systolic KRISTEN (acute kidney injury) N17.9 Wound dehiscence T81.30XA Osteomyelitis of great toe of left foot M86.9 Panlobular emphysema J43.1 COPD type: emphysema Emphysema type: panlobular Pulmonary edema J81.1 Infected wound T14.8XXA; L08.9 Diabetes mellitus E11.9 Paroxysmal A-fib I48.0
--- NOTE | 2024-12-08 14:50 | PC.NURSE ---
Nurse has attempted to get patient up to a chair, but she refuses due to pain (rib fractures during CPR). Nurse has offered premedicating patient with pain medication, and also placed a hover eliot under the patient so she could slid over to a chair rather than get. NUrse has explained risks of muscle weakness from inactivity, poor secretion clearing leading to worsened pneumonia, and how activity will help with pain in the long run, but she still adamantly refuses. She has agreed to try getting out of bed tomorrow.
[2024-12-08 15:30] LABS: Partial Thromboplastin Time 47.7 SECONDS (23.9-36.7)
--- NOTE | 2024-12-08 17:54 | PC.NURSE ---
Addendum entered by Asad Willoughby RN 12/08/24 19:18: Levophed turned back on at end of shift to 2mcg. Original Note: SHift SUmmary: Uneventful shift. In bed throughout the day, agreed to get up to a chair tommorow. Started on a dysphagia level 6 diet and tolerating well. 1500mL fluid restriction. Levophed off. Intake: 900mL Output: 1000mL urine.
[2024-12-08 19:20] LABS: Anion Gap 15.9 (5-19); Blood Urea Nitrogen 31 mg/dL (8-23); Calcium 7.5 mg/dL (8.5-10.5); Carbon Dioxide 32 mmol/L (22-29); Chloride 93 mmol/L (98-107); Creatinine Clr Calc Pharmacy 41.7681; Glucose 316 mg/dL (65-115); Osmolality Calculated 305 mOsm/kg (285-295); Sodium 138 mmol/L (136-145)
[2024-12-08 19:29] LABS: Potassium 2.9 mmol/L (3.5-5.1)
[2024-12-08] MEDS: norepinephrine 4 MG/250 ML BAG 7.5 MG IV (19:33)
[2024-12-08] MEDS: lidocaine 1% 5 ML in potassium chloride premix 100 ML 52.5 ML IV ×2 (21:00→22:53)
[2024-12-09] VITALS (101 sets, daily range): BP systolic 81–167; BP diastolic 21–81; PULSE 63–81; RESP 14–35; TEMP 36.8–36.9; O2SAT 90–98
[2024-12-09 00:06] LABS: Partial Thromboplastin Time 57.1 SECONDS (23.9-36.7)
[2024-12-09] MEDS: lidocaine 1% 5 ML in potassium chloride premix 100 ML 52.5 ML IV (01:08)
[2024-12-09] MEDS: heparin drip 25,000 UNIT/500 ML PREMIX 16 UNIT IV (01:13)
[2024-12-09] MEDS: FUROsemide 10 mg/mL SDV 4mL 40 MG IVP ×3 (02:58→17:35)
[2024-12-09 03:54] LABS: Hematocrit 30.1 % (36-47); Hemoglobin 9.10 g/dL (11.27-16.99); Mean Corpuscular HGB Conc 30.2 g/dL (30-55); Mean Corpuscular Hemoglobin 24.9 pg (27-33); Mean Corpuscular Volume 82.5 fl (85-98); Nucleated Red Blood Cells % 0 %; Platelet Count 209 10^3/cmm (157-399); Red Blood Count 3.65 10^6/uL (3.85-5.65); White Blood Count 24.89 10^3/uL (3.29-11.43)
[2024-12-09 04:15] LABS: Alanine Aminotransferase 51 U/L (0-33); Albumin Level 2.9 g/dL (3.5-5.2); Alkaline Phosphatase 90 U/L (35-105); Anion Gap 15.1 (5-19); Aspartate Amino Transferase 21 U/L (0-32); Blood Urea Nitrogen 27 mg/dL (8-23); Calcium 7.6 mg/dL (8.5-10.5); Carbon Dioxide 33 mmol/L (22-29); Chloride 96 mmol/L (98-107); Creatinine Clr Calc Pharmacy 45.5652; Globulin 3.0 g/dL (1.3-4.6); Glucose 296 mg/dL (65-115); Osmolality Calculated 306 mOsm/kg (285-295); Potassium 4.1 mmol/L (3.5-5.1); Sodium 140 mmol/L (136-145); Total Protein 5.9 g/dL (6.6-8.7)
[2024-12-09] MEDS: piperacillin-tazobactam 3.375 GM in sodium chloride 0.9% (plus) 50 ML IV ×2 (05:39→13:44)
[2024-12-09] MEDS: methylPREDNISolone sod succ 40 mg/mL INJ IVP ×3 (05:43→20:20)
--- NOTE | 2024-12-09 06:00 | XRR_ITS ---
PROCEDURE INFORMATION: Exam: XR Chest Exam date and time: 12/09/2024 5:37 AM Age: 84 years old Clinical indication: Device placement; Ett placement (vent status); Prior surgery; Surgery date: 6+ months; Surgery type: Cabg; F/u day 2 post extubation; Additional info: Intubation TECHNIQUE: Imaging protocol: Radiologic exam of the chest. Views: 1 view. COMPARISON: CR (CHEST, ) 12/08/2024 5:54 AM FINDINGS: Lungs: Mild pulmonary edema. No significant change in diffuse right pulmonary airspace disease. Pleural spaces: No significant change of small left-sided pleural effusion. Heart/Mediastinum: Cardiomegaly is seen. Bones/joints: Post sternotomy changes are seen. Chronic left-sided rib fractures. XR/XR chest 1V portable [id number] IMPRESSION: No significant change. No ETT visible.
[2024-12-09 06:41] LABS: Partial Thromboplastin Time 52.4 SECONDS (23.9-36.7)
[2024-12-09] MEDS: heparin 5,000 unit/mL INJ 1 mL IVP (06:47)
--- NOTE | 2024-12-09 07:12 | PM.CONSULT ---
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 Patient was status post left great toe amputation and has exhibited poor wound healing since then. She presented to the emergency room on 12/05 due to complaints of shortness of breath and increased work of breathing related to CHF exacerbation. Recent surgical wound was also noted to have wound dehiscence and acute worsening with reportedly maggots being seen upon the initial dressing change. Podiatry service was consulted and patient was taken to the operating room on December 06 for incision and drainage of the surgical wound dehiscence and also a left heel wound with exposed myofascial layer. She had received doxycycline preoperatively. Further antibiotics were held so as not to cloud operating room cultures. Intraoperatively she was noted to have full-thickness dehiscence and first metatarsal head was noted to be protruding through the skin with devitalized base and poor density. Bone from the first metatarsal head was removed and sent for Gram stain and cultures. There was resection performed of the first metatarsal head and neck. Left posterior heel was also noted to have a wound with a devitalized base. The wound did not probe to bone. Her course has been complicated by the development of bradycardic arrest for which patient received CPR, was intubated and taken to the ICU. She self extubated on the night of December 08, 2024. Her OR cultures have revealed polymicrobial organisms including Pseudomonas, PRovidentia, MRSA. Review of Systems General: Reports: 10 or more systems reviewed and unremarkable except in HPI and below Const: Denies: fever(s), chills or body aches Eyes: Denies: change in vision, blurry vision or photophobia ENMT: Reports: hoarseness; Denies: throat pain, enlarged tonsils, odynophagia or nasal congestion Card: Denies: chest pain, palpitations, irregular heart rhythm, edema, swelling of feet/ankles, lightheadedness, pre-syncope, dyspnea on exertion or orthopnea Resp: Denies: dyspnea, productive cough, non-productive cough, wheezing, stridor, pain on inspiration, change in phlegm color, hemoptysis or chest congestion GI: Denies: abdominal pain, nausea, vomiting, hematemesis, coffee ground emesis, dysphagia, heartburn, diarrhea, constipation, GI cramping, change in stool character, hematochezia or melena : Denies: flank pain, difficulty voiding, dysuria, urinary frequency, urinary urgency, urinary hesitancy or hematuria Musc: Denies: neck pain, back pain, extremity pain, joint swelling, joint warmth or deformity Neuro: Denies: headache(s), numbness in extremities, weakness in extremities, sensory changes, difficulty walking, frequent falls, dizziness, vertigo, behavioral changes, Slurred speech present or seizure-like activity Psych: Denies: anxiety, depression, suicidal ideation or homicidal ideation Endo: Denies: polyuria, polydipsia, tired all the time, cold intolerance or hot flashes Saeid/Lymph: Denies: easy bruising or easy bleeding Medications/Allergies Home Medications ?Medication ?Instructions ?Recorded ?Confirmed ?Last Taken ?Type clopidogrel 75 mg tablet 75 mg PO BEDTIME #90 tabs 03/27/24 12/06/24 12/04/24 19:00 Rx atorvastatin 40 mg tablet 40 mg PO QPM 07/18/24 12/06/24 12/05/24 History tramadol 50 mg tablet 50 mg PO Q6H PRN Pain 07/18/24 12/06/24 10/28/24 History nebulizer and compressor (KAX305 #1 ea 07/23/24 12/06/24 Unknown Rx Nebulizer) CAM walker #1 ea 11/28/24 12/06/24 Unknown Rx insulin aspart U-100 100 unit/mL See Rx Instructions .Route .COMPLEX 12/06/24 12/06/24 12/05/24 07:00 History (3 mL) subcutaneous pen (Novolog FlexPen U-100 Insulin aspart) omeprazole 20 mg capsule,delayed 20 mg PO BID 12/06/24 12/06/24 12/05/24 07:00 History release ondansetron 4 mg disintegrating 4 mg PO Q8H PRN Nausea And Vomiting 12/06/24 12/06/24 Unknown History tablet sucralfate 1 gram tablet 1 g PO BID 12/06/24 12/06/24 12/05/24 07:00 History acetaminophen 325 mg tablet 650 mg (2 x 325 mg) PO Q6H PRN 12/13/24 Unknown Rx Mild/Mod Pain Or Temp >/= 101 #30 tabs budesonide 0.5 mg/2 mL suspension 0.5 mg (2 mL) inhalation 12/13/24 Unknown Rx for nebulization BID.RESPIRATORY #60 mL furosemide 40 mg tablet 40 mg PO DAILY@0800 #30 tabs 12/13/24 Unknown Rx hydrocodone 5 mg-acetaminophen 325 1 tab PO Q6H PRN Moderate Pain #30 12/13/24 Unknown Rx mg tablet tabs insulin degludec 200 unit/mL (3 35 unit (0.175 mL) SUBCUT DAILY #9 12/13/24 12/06/24 12/05/24 Rx mL) subcutaneous pen (Tresiba mL FlexTouch U-200 insulin) ipratropium 0.5 mg-albuterol 3 mg 3 ml inhalation Q6H.RESP #90 mL 12/13/24 Unknown Rx (2.5 mg base)/3 mL nebulization soln midodrine 5 mg tablet 5 mg PO TID #90 tabs 12/13/24 Unknown Rx modified lanolin 100 % topical 1 applic topical PRN PRN Dryness 12/13/24 Unknown Rx cream (Lanolin (HPA)) #40 grams nystatin 100,000 unit/gram topical 1 applic topical BID #60 grams 12/13/24 Unknown Rx powder (Nystop) piperacillin-tazobactam 4.5 4.5 g (112.5 mL) IV Q8H 12/13/24 Unknown Rx gram/100 mL dextrose(iso-osm) IV piggyback (Zosyn) potassium chloride 20 mEq 20 meq PO DAILY #30 tabs 12/13/24 Unknown Rx tablet,extended release(part/cryst) (Klor-Con M) ranolazine 500 mg tablet,extended 500 mg PO BID #60 tabs 12/13/24 Unknown Rx release,12 hr vancomycin 1.25 gram/250 mL in 1,250 mg (250 mL) continuous IV 12/13/24 Unknown Rx diluent combination IV piggyback infusion Q24H #1,500 mL amiodarone 200 mg tablet 100 mg (1/2 x 200 mg) PO DAILY #30 12/16/24 12/06/24 12/05/24 Rx tabs dapagliflozin propanediol 10 mg 10 mg PO DAILY #30 tabs 12/16/24 Unknown Rx tablet (Farxiga) sacubitril 24 mg-valsartan 26 mg 0.5 tab PO BID #30 tabs 12/16/24 Unknown Rx tablet (Entresto) Allergies Allergy/AdvReac Type Severity Reaction Status Date / Time No Known Allergies Allergy Verified 11/28/24 14:09 Current Medications Generic Name Dose Route Start Last Admin Trade Name Freq PRN Reason Stop Dose Admin Albuterol/Ipratropium 3 ml 12/06/24 02:00 12/09/24 02:49 Ipratropium-Albuterol 3 Ml Neb INHALATION 3 ml Q6H.RESP LI Administration Amiodarone HCl 200 mg 12/06/24 09:00 12/06/24 09:21 Amiodarone 200 Mg Tablet PO 200 mg On Hold: 12/06/24 19:55 DAILY LI Administration Benzocaine 1 each 12/08/24 06:38 12/08/24 06:45 Cetylpyridinium Lozenge MUCOUS MEM 1 each Q2H PRN Administration SORE THROAT Budesonide 0.5 mg 12/06/24 08:00 12/08/24 20:38 Budesonide 0.5 Mg/2 Ml Neb INHALATION 0.5 mg BID.RESPIRATORY LI Administration Clopidogrel Bisulfate 75 mg 12/07/24 09:00 12/08/24 09:10 Clopidogrel 75 Mg Tablet PO 75 mg DAILY LI Administration Furosemide 40 mg 12/08/24 10:30 12/09/24 02:58 Furosemide 10 Mg/Ml Sdv 4ml IVP 40 mg Q8H LI Administration Heparin Sodium (Porcine) 0 unit 12/06/24 21:22 12/09/24 06:47 Heparin 5,000 Unit/Ml Inj 1 Ml IVP 1,600 unit PRN PRN Administration Heparin Weight Based Protocol -Subsequent Bolus Protocol Piperacillin Sod/Tazobactam 50 mls @ 12.5 mls/hr 12/06/24 12:30 12/09/24 05:39 Sod 3.375 gm/ Sodium Chloride IV 12.5 mls/hr Q8H LI Administration Vancomycin HCl 1,250 mg in 250 mls @ 166.667 mls/hr 12/06/24 12:45 12/08/24 17:33 Vancocin IV Infused Q24H LI Infusion Norepinephrine Bitartrate 4 mg in 250 mls @ 0 mls/hr 12/06/24 20:45 12/08/24 19:33 Levophed IV 2 mcg/min .Q0M LI 7.5 mls/hr Protocol Administration Per Protocol Heparin Sodium/Sodium Chloride 25,000 unit in 500 mls @ 0 mls/hr 12/06/24 21:30 12/09/24 06:41 Heparin Drip IV 11.64 unit/kg/hr CONT LI 18 mls/hr Protocol Titration Per Protocol Insulin Human Lispro 0 unit 12/08/24 12:00 12/08/24 21:15 Insulin Lispro 100 Unit/1 Ml SUBCUT 10 unit WM&BEDTIME LI Administration Protocol Lanolin 1 applic 12/08/24 06:11 12/08/24 06:46 Lanolin Oint 7 Gm TOPICAL 1 applic PRN PRN Administration DRYNESS Methylprednisolone Sodium Succinate 40 mg 12/07/24 05:00 12/09/24 05:43 Methylprednisolone Sod Succ 40 Mg/Ml Inj IVP 40 mg Q8H LI Administration Morphine Sulfate 2 mg 12/06/24 01:02 12/08/24 13:14 Morphine 4 Mg/Ml Sdv 1 Ml IVP 2 mg Q4H PRN Administration SEVERE PAIN Nystatin 1 applic 12/06/24 09:00 12/08/24 20:12 Nystatin Powder 15 Gm Btl TOPICAL 1 applic BID LI Administration Ondansetron HCl 4 mg 12/08/24 12:40 12/08/24 17:39 Ondansetron 2 Mg/Ml Sdv 2 Ml IVP 4 mg Q6H PRN Administration vomiting, or N/V if npo Ranolazine 1,000 mg 12/06/24 09:00 12/08/24 17:41 Ranolazine (12hr) 500 Mg Tablet PO 1,000 mg BID LI Administration Sucralfate 1 gm 12/07/24 18:00 12/08/24 17:41 Sucralfate 1 Gm Tablet PO 1 gm BID LI Administration Tramadol HCl 50 mg 12/08/24 10:18 12/09/24 02:57 Tramadol 50 Mg Tablet PO 50 mg Q4H PRN Administration MODERATE PAIN PFSH Acute PFSH: Medical History (Updated 12/17/24 @ 00:00 by JANIE Leal) Dyslipidemia Essential (primary) hypertension COPD (chronic obstructive pulmonary disease) Chronic hypoxic respiratory failure, on home oxygen therapy Diabetes mellitus, type II, insulin dependent CAD (coronary artery disease) Paroxysmal A-fib CKD (chronic kidney disease) CHF (congestive heart failure) Respiratory arrest has required intubation Non-STEMI (non-ST elevated myocardial infarction) Contrast-induced nephropathy Surgical History Hx of hysterectomy Hx of CABG Family History Unknown No problems noted. Social History Smoking and tobacco/nicotine status: former use of tobacco/nicotine Alcohol intake: never Substance/Drug Use: never Vitals/I&O/Wt Last Vital Signs Temp 98.2 F 12/09/24 05:53 Pulse 72 12/09/24 07:00 Resp 18 12/09/24 07:00 BP 125/50 12/09/24 07:00 Pulse Ox 98 12/09/24 07:00 O2 Del Method Nasal Cannula 12/09/24 02:50 O2 Flow Rate 4 12/09/24 02:50 FiO2 40 12/08/24 03:00 12/08/24 12/09/24 12/09/24 22:59 06:59 14:59 Intake Total 1357.25 / 1868.667 789.934 / 2658.601 Output Total 1000 / 1050 1500 / 2550 Balance 357.25 / 818.667 -710.066 / 108.601 Weight last 48 hrs Weight 34.745 kg Weight 73.2 kg Physical Exam Narrative: General: No acute distress, AO x3 HEENT: PERRLA, pupils bilaterally equal and reactive, pallors not present Chest: Normal vesicular breath sounds, no added sounds, equal good air entry bilaterally CVS: S1-S2 regular, no murmurs, no tachycardia, no gallops, no rubs Abdomen: Soft, nontender, no organomegaly, bowel sounds present Neuro: No focal deficits, no facial deformity, AO x3, power 5/5 in all limbs Urinary Catheter Management: Huff: Cath Placed During This Visit: yes Reason for Continuing Indwelling Catheter: Accurate Measurement of Urinary Output in Critically Ill Patients Urinary Catheter Date of Insertion: 12/05/24 Urinary Catheter Time of Insertion: 22:48 Data 12/15/24 01:22 12/15/24 01:22 Micro: Microbiology 12/06/24 11:48 Anaerobic Culture - Preliminary Other Source 12/06/24 11:33 Gram Stain - Final Bone Anaerobic Culture - Preliminary Tissue Culture - Preliminary Pseudomonas aeruginosa Providencia stuartii Coag positive Staphylococcus 12/06/24 11:48 Gram Stain - Final Other Source Wound Culture - Final Enterobacter cloacae Providencia stuartii Methicillin Resis Staph Aureus 12/06/24 12:00 Gram Stain - Final Sputum - Endotracheal Tube Aspirate Sputum Culture - Preliminary NAME: Sally Henderson LOC: [facility] #: [id number] AGE/SX: 84/F ROOM: [facility] RE12/05/[address]: Christiano Richard MD : 1940 BED: 2 DIS: 12/16/24 FAX #: STATUS: DIS IN TLOC: Spec #: [id number] Tasha: 12/06/24-1148 Status: COMP Req #: [id number] Recd: 12/06/24-[address]: Jean Paul Renee DPM Src: Other Sour SpDesc: Ordered: WC and GS Comments: Comment wound culture left heel Procedure Result Verified Site Gram Stain Final 12/06/24-192 Result MODERATE WHITE BLOOD CELLS MODERATE GRAM POSITIVE COCCI IN PAIRS & CHAINS RARE GRAM NEGATIVE RODS Wound Culture Final 12/08/24-1520 Organism 1 Enterobacter cloacae Growth HEAVY Organism 2 Providencia stuartii Growth HEAVY Organism 3 Methicillin Resis Staph Aureus Growth HEAVY HEAVY MIXED SUPERFICIAL ANUJA ON DAY 2 CRITICAL RESULT YES/NO: YES CRITICAL CALLED BY: MADELINE TO AND READ BACK BY: AB DATE: 12/08/24 TIME: 1519 E cloacae P stuartii MRSA M.I.C. RX M.I.C. RX M.I.C. RX --------- ------ --------- ------ --------- ------ * Amikacin <=16 S <=16 S * Ampicillin/Sulbactam <=8/4 S * Aztreonam >16 R <=4 S * Cefepime >16 R <=8 S * Ceftriaxone >32 R <=1 S * Cefuroxime >16 R 8 S * Ciprofloxacin <=1 S >2 R >2 R * Clindamycin <=0.5 S * Erythromycin >4 R * Gentamicin >8 R <=4 S * Imipenem <=1 S <=1 S * Levofloxacin <=2 S >4 R >4 R * Linezolid 4 S * Moxifloxacin >4 R * Oxacillin >2 R * Penicillin >8 R * Rifampin <=1 S * Tetracycline >8 R >8 R * Tobramycin >8 R * Trimethoprim/Sulfamethoxazole >2/38 R <=2/38 S <=0.5/9.5 S Vancomycin 2 S * Piperacillin/Tazobactam <=16 S <=16 S Daptomycin 1 S Wound Culture Preliminary (changed) 12/07/24-153 Organism 1 Gram Negative Rods Growth HEAVY Organism 2 Gram Negative Rods#2 Growth HEAVY HEAVY MIXED SUPERFICIAL ANUJA ON DAY 1 RESULTS TO FOLLOW NAME: Sally Henderson LOC: [facility] U #: [id number] AGE/SX: 84/F ROOM: 253 RE12/05/[address]: Christiano Richard MD : 1940 BED: 2 DIS: 12/16/24 FAX #: STATUS: DIS IN TLOC: Spec #: [id number] Tasha: 12/06/24 Status: COMP Req #: [id number] Recd: 12/06/24-[address]: Jean Paul Renee DPM Src: Bone SpDesc: Ordered: Tissue Cult GS, Anaer Comments: Comment first metatarsal bone left foot Procedure Result Verified Site Gram Stain Final 12/06/24-1917 Result RARE WHITE BLOOD CELLS NO ORGANISMS SEEN Anaerobic Culture Final 12/13/24-1304 NO ANAEROBES ISOLATED ON DAY 7 Anaerobic Culture Preliminary (changed) 12/12/24-1201 NO ANAEROBES ISOLATED ON DAY 6 Anaerobic Culture Preliminary (changed) 12/11/24-1026 NO ANAEROBES ISOLATED ON DAY 5 Anaerobic Culture Preliminary (changed) 12/10/24-1059 NO ANAEROBES ISOLATED ON DAY 4 Anaerobic Culture Preliminary (changed) 12/09/24-1124 NO ANAEROBES ISOLATED ON DAY 3 Anaerobic Culture Preliminary (changed) 12/08/24-1632 NO ANAEROBES ISOLATED ON DAY 2 Anaerobic Culture Preliminary (changed) 12/07/24-1921 NO ANAEROBES ISOLATED ON DAY 1 Tissue Culture Final 12/09/24-1152 Organism 1 Pseudomonas aeruginosa Growth MODERATE Organism 2 Providencia stuartii Growth MODERATE Organism 3 Methicillin Resis Staph Aureus Growth FEW FEW MIXED SUPERFICIAL ANUJA ON DAY 3 CRITICAL RESULT YES/NO: YES CRITICAL CALLED BY: MADELINE DISLA AND READ BACK BY: RASHAWN DATE: 12/09/24 TIME: 1152 P aerugino P stuartii MRSA M.I.C. RX M.I.C. RX M.I.C. RX --------- ------ --------- ------ --------- ------ * Amikacin <=16 S * Ampicillin/Sulbactam <=8/4 S * Aztreonam <=4 S <=4 S * Cefepime <=8 S <=8 S * Ceftriaxone <=1 S * Cefuroxime 16 I * Ciprofloxacin >2 R >2 R >2 R * Clindamycin >4 R * Erythromycin >4 R * Gentamicin >8 R * Imipenem >8 R <=1 S * Levofloxacin >4 R >4 R >4 R * Linezolid 4 S * Moxifloxacin >4 R * Oxacillin >2 R * Penicillin >8 R * Rifampin <=1 S * Tetracycline >8 R * Trimethoprim/Sulfamethoxazole <=2/38 S <=0.5/9.5 S Vancomycin 2 S * Piperacillin/Tazobactam <=16 S <=16 S Daptomycin <=0.5 S Tissue Culture Preliminary (changed) 12/08/24-1513 Organism 1 Pseudomonas aeruginosa Growth MODERATE Organism 2 Providencia stuartii Growth MODERATE Organism 3 Coag positive Staphylococcus Growth FEW FEW MIXED SUPERFICIAL ANUJA ON DAY 2 RESULTS TO FOLLOW P aerugino P stuartii M.I.C. RX M.I.C. RX --------- ------ --------- ------ * Amikacin <=16 S * Ampicillin/Sulbactam <=8/4 S * Aztreonam <=4 S <=4 S * Cefepime <=8 S <=8 S * Ceftriaxone <=1 S * Cefuroxime 16 I * Ciprofloxacin >2 R >2 R * Imipenem >8 R <=1 S * Levofloxacin >4 R >4 R * Trimethoprim/Sulfamethoxazole <=2/38 S * Piperacillin/Tazobactam <=16 S <=16 S Tissue Culture Preliminary (changed) 12/07/24-1346 FEW MIXED SUPERFICIAL ANUJA ON DAY 1 A&P Assessment and plan 1. Osteomyelitis of metatarsal: 6 weeks of Zosyn and vanc ordered with weekly labs until 01/13 recommend SNF for strict complainace with meds, offloading and wound care measures Picc line ordered f/up iD clinic when nearing end of abx course PDMP PDMP Reviewed: Not Reviewed Coding Level of Care Code Acute Code for Chg Fwd Moderate MDM includes number and complexity of problems actively addressed during encounter, amount and/or complexity of data reviewed/ordered and described risk of complication, morbidity or mortality of management as documented Diagnoses Osteomyelitis of metatarsal M86.9
--- NOTE | 2024-12-09 07:46 | XRR_ITS ---
PROCEDURE INFORMATION: Exam: XR Chest Exam date and time: 12/09/2024 8:34 AM Age: 84 years old Clinical indication: Device placement; Ng tube; Additional info: Post picc insertion, [place] placing in icu 10. Should be ready at 0830 TECHNIQUE: Imaging protocol: Radiologic exam of the chest. Views: 1 view. COMPARISON: CR XR chest 1V portable [id number] 12/09/2024 5:37 AM FINDINGS: Tubes, catheters and devices: New Right-sided PICC line tip at upper right atrium. Lungs: Pulmonary vessels are within normal limits. No significant change of left basilar and right pulmonary diffuse airspace disease. Pleural spaces: No pneumothorax. Heart/Mediastinum: Cardiomegaly is seen. Bones/joints: Post sternotomy changes are seen. Multiple chronic left-sided rib fractures. XR/XR chest 1V portable [id number] IMPRESSION: 1. New Right-sided PICC line tip at upper right atrium. 2. Additional findings as described.
[2024-12-09] MEDS: pantoprazole 40 mg SDV IVP (09:16)
[2024-12-09] MEDS: ranolazine (12HR) 500 mg Tablet 1000 MG PO ×2 (09:17→17:15)
--- NOTE | 2024-12-09 09:51 | XRR_ITS ---
PROCEDURE INFORMATION: Exam: XR Chest Exam date and time: 12/09/2024 10:02 AM Age: 84 years old Clinical indication: Device placement; Picc; Additional info: Repostion of picc line for cavoatrial junction, first read in right atrium. Radiologist recommended TECHNIQUE: Imaging protocol: Radiologic exam of the chest. Views: 1 view. COMPARISON: CR XR chest 1V portable [id number] 12/09/2024 8:34 AM FINDINGS: Tubes, catheters and devices: Right-sided PICC line tip is at cavoatrial junction. Lungs: No significant change of bilateral pulmonary airspace disease. Pleural spaces: No pneumothorax. Heart/Mediastinum: Cardiomediastinal silhouette is stable. Bones/joints: Unremarkable. XR/XR chest 1V portable [id number] IMPRESSION: Right-sided PICC line tip is at cavoatrial junction.
--- NOTE | 2024-12-09 09:52 | PICC.NOTE ---
Double lumen PICC placed to right basilic vein. Referred to vascular access nurse for PICC placement due to use of vasopressors and need for antibiotics due to osteo. Risks and benefits discussed and informed consent obtained from pt. Right arm assessed with right basilic vein measuring 3.1 mm, straight, and apparent best choice for placement. Using sterile technique and MST, right basilic vein accessed x 1 stick. Unable to thread guidewire. Second attempt made proximal to first attempt with success. Mid-arm circumference measured 10 cm from right AC 26 cm. Trimmed cath 42 cm with 0 cm external length noted. Radiologist read CXR with tip in right atrium. By phone, radiologist suggested retraction of [address] tip in cavoatrial junction. Tip retracted 2 cm with repeat CXR ordered to confirm placement. Line secured with stat-lock. Insertion site covered with Biopatch and TSM. Report given to bedside nurse, LIANA Bills.
--- NOTE | 2024-12-09 11:47 | PC.SOCIAL ---
IMM update pg 2 of IMM Updated and reviewed w/ patient. Copy provided and copy dated, initialed and placed in chart.
[2024-12-09 12:47] LABS: Partial Thromboplastin Time 69.5 SECONDS (23.9-36.7)
--- NOTE | 2024-12-09 14:43 | P.PN_ITS ---
Subjective 2 Subjective: 84-year-old female awake alert and watching TV. She converses appropriately. She states that she lives with her son and is perfectly capable of taking care of herself. She states that she would like her sutures out because they have been in for over a week. It looks like she had surgery on 12/06/[address] Renee which was I&D below fascia left heel and secondary closure of surgical wound left foot first metatarsal Patient states that as long as her insurance will pay for she would be willing to stay at the alf for IV antibiotics but does not want to go to [facility] because she developed bedsores there. She states she would want to go to the in [facility] Patient states she stopped smoking 50 years ago but is on oxygen at night. She denies history of sleep apnea. On 12/08/2024 patient self extubated herself at around [address] Munguia recommends 6 weeks of Zosyn and vancomycin with weekly labs until 01/13/2025. Vitals/I&O/Wt Last Vital Signs Temp 98.4 F 12/09/24 12:00 Pulse 64 12/09/24 14:30 Resp 17 12/09/24 14:30 BP 103/44 12/09/24 14:30 Pulse Ox 97 12/09/24 14:30 O2 Del Method Nasal Cannula 12/09/24 13:20 O2 Flow Rate 5 12/09/24 13:20 FiO2 40 12/08/24 03:00 12/08/24 12/09/24 12/09/24 22:59 06:59 14:59 Intake Total 1357.25 / 1868.667 789.934 / 2658.601 764.6 / 764.6 Output Total 1000 / 1050 1500 / 2550 Balance 357.25 / 818.667 -710.066 / 108.601 764.6 / 764.6 Weight last 48 hrs Weight 76 kg Weight 34.745 kg Weight 73.2 kg Physical Exam 2 Narrative: General well-developed well-nourished overweight female in no acute cardiopulmonary distress watching TV. Talking to the patient she developed a cough which was pretty severe. She recovered but had some hypoxemia developed CV regular rate and rhythm Lungs prolonged x-ray phase with poor air movement and some wheezing. Right lower lung with crackles Abdomen positive bowel tones soft nontender Calves 1+ bilateral pretibial edema dorsal pedal pulses diminished but palpable in the right dorsal pedal diminished and not palpable to left dorsal pedal. Left hallux amputated patient is able to subjectively feel sensation of me touching her left toes that are remaining and she is able to wiggle them they are not gangrenous in appearance. Bilateral feet with trace to 1 edema Urinary Catheter Management: Huff: Cath Placed During This Visit: yes Reason for Continuing Indwelling Catheter: Accurate Measurement of Urinary Output in Critically Ill Patients Urinary Catheter Date of Insertion: 12/05/24 Urinary Catheter Time of Insertion: 22:48 Data 12/09/24 03:02 12/09/24 03:02 Micro: Microbiology 12/06/24 11:33 Gram Stain - Final Bone Anaerobic Culture - Preliminary Tissue Culture - Final Pseudomonas aeruginosa Providencia stuartii Methicillin Resis Staph Aureus 12/06/24 11:48 Anaerobic Culture - Preliminary Other Source 12/06/24 12:00 Gram Stain - Final Sputum - Endotracheal Tube Aspirate Sputum Culture - Final 12/06/24 11:48 Gram Stain - Final Other Source Wound Culture - Final Enterobacter cloacae Providencia stuartii Methicillin Resis Staph Aureus A&P Assessment and plan 1. Bradycardic cardiac arrest: Patient received CPR for 18 minutes on 12/06/2024 at 10 PM. This corresponds to a preceding time of hypoxemia and tachypnea heart rate 41 respiratory rate 21 systolic blood pressure 82/39. At 12/06/2024 heart rate dropped to 30. Echocardiogram next day showed LVEF 45% with akinesis of the inferior and inferolateral parkinson with severe pulmonary hypertension RVSP 70. EKG showed T wave inversions. Will consult cardiology To exclude that this was ischemic though she was also postop and has pulmonary hypertension. Patient has history of amiodarone treated A-fib but I am not sure if this arrest was ischemic or not 2. Septic shock: Resolved continue antibiotics for her left foot including Zosyn and Vanco 3. Acute on chronic hypoxic respiratory failure: This occurred postoperatively with associated tachypnea. Patient denies history of sleep apnea. CT scan showed multi lobular right upper lung right middle lung right lower lung left lower lung multifocal pneumonia versus pulmonary edema currently treated with Zosyn and vancomycin 4. Acute on chronic systolic congestive heart failure: Continue with diuresis as blood pressure allows 5. KRISTEN (acute kidney injury): Creatinine bumped to 1.5 but now down to 1.1. Admitted with creatinine of 0.8 6. 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 She has had poor wound healing afterwards. Appreciate podiatry recommendations. Post incision and drainage and secondary closure of surgical wound on 12/06. Follow-up cultures. Wound care dressing as per podiatry team 7. Osteomyelitis of great toe of left foot: Continue antibiotics with vancomycin and Zosyn 8. Panlobular emphysema: Patient reports modest smoking history that she stopped 50 years ago 9. Pulmonary edema: Crackles heard in the right lower lung field blood pressure is soft to allow aggressive diuresis 10. Infected wound: Podiatry Service consulted 11. Diabetes mellitus: Uncontrolled type 2 diabetes mellitus with A1c of more than 10. Insulin sliding scale low-dose protocol. Takes Lantus 27 units at home. Restart Lantus as per insulin requirement in next 24 hours. 12. Paroxysmal A-fib: Patient has a known history of atrial fibrillation. Having episodes of bradycardia. Telemetry monitoring. Plan: Bradycardic cardiac arrest: Had 2 separate ACLS protocol chest compressions of overall around 15 to 18 minutes on 12/06. Achieved ROSC both times. Between cardiac arrest patient was moving all limbs, having gag reflex and opening eyes. Patient off sedation. Awake and alert. Moving all limbs. Physical therapy/Occupational Therapy evaluation. For bradycardia: Patient has a history of atrial fibrillation. Heart rate has remained stable after stopping dopamine drip. Continue to hold off on amiodarone. Telemetry monitoring. Maintain potassium around 4, magnesium around 2. Acute on chronic hypoxic and hypercapnic respiratory failure: Most likely in setting of congestive heart failure along with aspiration pneumonia which patient had during cardiac arrest along with COPD exacerbation. Oxygen supplementation keeping saturation over 88%. Continue with Solu-Medrol 40 mg every 8 hourly. DuoNeb every 6 hour, Pulmicort twice daily. Plan to wean Solu-Medrol in next 24 hours. Self extubated on 12/07 night. Follow-up sputum culture. Appreciate CT chest. Aggressive pulmonary toilet with I-S and Acapella. Cannot use chest vest given multiple rib fractures. Does have a history of systolic and diastolic heart failure with last known EF of 45%. Fluid restriction to less than 1500 cc. Appreciate urine output. Patient extubated as above. IV Lasix 40 mg every 8 hourly. Monitor renal functions for hypokalemia and contraction alkalosis. Strict improved charting, daily weights. Atrial fibrillation: Rate limiting medications as above. Continue with heparin drip for now. Will transition to Eliquis again if remains hemodynamically stable and able to maintain oral intake in next 24 hours History of CAD: Follow-up troponin levels. Continue with home dose of Plavix. Echocardiogram pending. Goals of care discussion: Discussed multiple times in detail during CODE BLUE with multiple family members including patient's daughter and DPHAMIDA/son over the phone. Updated patient's son Jos over the phone again today. All the questions were answered. We again discussed that patient is critically ill on pressors postcardiac arrest and mechanical ventilation with concerns for aspiration pneumonia, septic shock. We discussed as of not is difficult to say if she sustained or how much brain damage she sustained during the cardiac arrest. Analgesia:Morphine 1 mg every 4 hours as needed, tramadol 50 mg every 4 hours as needed Glycemic control: Insulin sliding scale at moderate dose protocol AC and at bedtime. Depending on requirement in next 24 hours can add Lantus Nutrition: N.p.o. advance diet as per speech evaluation. PT/OT evaluation. CODE STATUS: Discussed in detail with patient's son/CHEYANNE again. Full code. Discussed again with patient today he is awake and alert. She wants to remain full code. PUD prophylaxis: Protonix DVT prophylaxis: Heparin drip will be sufficient for DVT prophylaxis Out of bed to chair. Discharge planning: Depending on clinical improvement going forward Continue with care at ICU This documentation was created by [employer] veneer production machine operator software. Every effort was made to ensure accuracy of veneer production machine operator. Any obvious errors or omissions should be clarified with the author of the document. PDMP PDMP Reviewed: Not Reviewed Attestations 2 Medical Necessity Statement*: Patient remains hospitalized for antibiotics for pneumonia, osteomyelitis and evaluation by cardiology for bradycardic arrest with inferolateral wall motion abnormality Coding Level of Care Code 34911 Diagnoses Bradycardic cardiac arrest R00.1; I46.2 Septic shock A41.9; R65.21 Acute on chronic hypoxic respiratory failure J96.21 Acute on chronic systolic congestive heart failure I50.23 Heart failure type: systolic KRISTEN (acute kidney injury) N17.9 Wound dehiscence T81.30XA Osteomyelitis of great toe of left foot M86.9 Panlobular emphysema J43.1 COPD type: emphysema Emphysema type: panlobular Pulmonary edema J81.1 Infected wound T14.8XXA; L08.9 Diabetes mellitus E11.9 Paroxysmal A-fib I48.0 Time Spent (min) 60
--- NOTE | 2024-12-09 16:22 | PC.NURSE ---
during rounding with patient asked by patient to see her purse, this nurse went to get fresh ice water upon return patient handed this nurse a sealed addressed envelope with a stamp and asked this nurse to mail it for her this nurse placed in outgoing mail bin at the hospital
--- NOTE | 2024-12-09 16:49 | P.CONIM_ITS ---
<Statement entered by Aleksey Velasquez MD - 12/09/24 18:44> Patient was evaluated and cared for in conjunction with an advanced practice practitioner.? I personally examined the patient and reviewed the chart and all pertinent data including imaging, telemetry, and laboratory results.? I discussed the patient in detail with the advanced practice practitioner.? Please see? their note for complete consult note, testing results and agreed upon plan of care for the patient. GENERAL: Patient is alert, awake and oriented x3. NECK: No JVD or carotid bruit HEART: Regular rate and rhythm LUNGS: Clear to auscultation bilaterally. EXTREMITIES: wrapped ASSESSMENT AND PLAN: 1. PEA arrest 2. CAD/CABG 3. chronic HFrEF 4. PAF One year ago the patient had attempted high risk PCI to the Cx system at [facility] and then was turned down for repeat attempt at [facility]. The patient has been doing well from a cardiac standpoint on her home medication regimen as an outpatient. Her PEA arrest was likely precipitated by the stress of her infection and undergoing surgery. The patient currently denies chest pain and shortness of breath. Her echocardiogram this hospitalization shows no change compared to her last echocardiogram. Wall motion abnormality is unchanged and her ejection fraction remains mildly reduced at 45%. The patient does not require any further cardiac testing and I recommend continued medical therapy. Providers/Reason For Consult 2 Consulting Physician/Specialty*: Dr Velasquez, cardiology Reason for Consult*: abnormal echocardiogram Requesting Physician: Humza Lee MD Attending Physician: Humza Lee MD Primary Care Provider: Antonio Delgado MD History of Present Illness History of Present Illness Sally Henderson is a 84 year old female with past medical history of systolic CHF (LVEF 45%), CAD s/p CABG (most recent coronary angiogram 12/21/2023-known occluded SVG grafts, patent [place] to LAD, significant heavily calcified and tortuous vessel with proximal to mid left circumflex severe serial stenoses-not amenable to intervention), atrial fibrillation previously anticoagulated with apixaban, osteomyelitis s/p amputation of the left great toe. She was admitted 12/05/2024 with shortness of breath and concerns of poor wound healing at the left great toe surgical site. She had signed out AMA out of the [facility], had been using a wheelchair for mobility at home. She underwent debridement of the left heel and great toe wound on 12/06/2024. Later that evening she had a bradycardic event, eventually requiring CPR, she achieved ROSC temporarily then went into PEA and after 2 cycles of CPR achieved ROSC again. Code time was 18 minutes total. She self extubated on 12/08/2024 and has been maintaining oxygen saturation with nasal cannula, currently using 5 L. Troponin series prior to cardiac arrest: 61-> 62-> 60. Series completed postarrest 77-> 80-> 91. She has a small left-sided pleural effusion. Echocardiogram obtained 12/07/2024: LVEF 45%, mild septal hypertrophy, akinesis of the mid and basal inferior and inferolateral wall segments, mild RV hypokinesis, severe pulmonary hypertension. Consultation was requested regarding the wall motion abnormality. Medications/Allergies Home Medications ?Medication ?Instructions ?Recorded ?Confirmed ?Last Taken ?Type clopidogrel 75 mg tablet 75 mg PO BEDTIME #90 tabs 12/06/24 12/04/24 19:00 Rx nitroglycerin 0.4 mg sublingual 0.4 mg buccal PRN PRN Chest Pain 04/10/24 12/06/24 Unknown History tablet furosemide 40 mg tablet 40 mg PO BID@0800,1400 30 da ys #60 05/28/24 12/06/24 12/05/24 08:00 Rx tabs amiodarone 200 mg tablet 200 mg PO DAILY 07/18/2412/05/24 History atorvastatin 40 mg tablet 40 mg PO QPM 07/18/2412/05/24 History tramadol 50 mg tablet 50 mg PO Q6H PRN Pain 12/06/24 10/28/24 History nebulizer and compressor ([id number] #1 ea 07/23/24 Unknown Rx Nebulizer) sacubitril 24 mg-valsartan 26 mg 1 tab PO BID #60 tabs 07/25/24 12/06/24 12/05/24 08:00 Rx tablet (Entresto) aspirin 81 mg tablet,delayed 81 mg PO DAILY #30 tabs 0 08/07/24 12/06/24 12/03/24 Rx release neomycin-bacitracn Zn-polymyx 3.5 1 applic topical BID #30 grams 08/07/24 12/06/2411/01/25 Rx mg-400 unit-5,000 unit/gram top oint (Triple Antibiotic) albuterol sulfate 2.5 mg/3 mL 2.5 mg continuous nebuli zation TID 10/29/24 12/06/24 11/02/24 History (0.083 %) solution for nebulization PRN Shortness Of B reath insulin degludec 200 unit/mL (3 27 unit SUBCUT DAILY 0 10/29/24 12/06/24 12/05/24 History mL) subcutaneous pen (Tresiba FlexTouch U-200 insulin) apixaban 5 mg tablet (Eliquis) 2.5 mg (1/2 x 5 mg) PO 11/06/24 12/06/24 12/05/24 Rx BID@0900,2100 30 days #30 tabs CAM walker #1 ea 11/28/24 12/06/24 Unkn own Rx doxycycline hyclate 100 mg capsule 100 mg PO BID 10 da ys #20 caps 11/28/24 12/06/24 12/05/24 Rx fluconazole 100 mg tablet See Rx Instructions .Route . COMPLEX 12/06/24 12/06/24 Unknown History insulin aspart U-100 100 unit/mL See Rx Instructions . Route .COMPLEX 12/06/24 12/06/24 12/05/24 07:00 History (3 mL) subcutaneous pen (Novolog FlexPen U-100 Insulin aspart) omeprazole 20 mg capsule,delayed 20 mg PO BID 12/06/24 12/06/24 12/05/24 07:00 History release ondansetron 4 mg disintegrating 4 mg PO Q8H PRN Nausea And Vomiting 12/06/24 12/06/24 Unknown History tablet potassium chloride 10 mEq 10 meq PO DAILY 12/06/2412/05/24 08:00 History tablet,extended release ranolazine 1,000 mg 1,000 mg PO BID 12/06/2412/05/24 07:00 History tablet,extended release,12 hr sucralfate 1 gram tablet 1 g PO BID 12/06/24 12/06/24 12/05/24 07:00 History Allergies Allergy/AdvReac Type Severity Reaction Status Date / Time No Known Allergies Allergy Verified 11/28/24 14:09 Current Medications Generic Name Dose Route Start Last Admin Trade Name Freq PRN Reason Stop Dose Admin Albuterol/Ipratropium 3 ml 12/06/24 02:00 12/09/24 13:19 Ipratropium-Albuterol 3 Ml Neb INHALATION 3 ml Q6H.RESP LI Administration Amiodarone HCl 200 mg 12/06/24 09:00 12/06/24 09:21 Amiodarone 200 Mg Tablet PO 200 mg On Hold: 12/06/24 19:55 DAILY LI Administration Benzocaine 1 each 12/08/24 06:38 12/08/24 06:45 Cetylpyridinium Lozenge MUCOUS MEM 1 each Q2H PRN Administration SORE THROAT Budesonide 0.5 mg 12/06/24 08:00 12/09/24 08:35 Budesonide 0.5 Mg/2 Ml Neb INHALATION Not Given BID.RESPIRATORY LI Clopidogrel Bisulfate 75 mg 12/07/24 09:00 12/09/24 09:17 Clopidogrel 75 Mg Tablet PO 75 mg DAILY LI Administration Furosemide 40 mg 12/08/24 10:30 12/09/24 09:16 Furosemide 10 Mg/Ml Sdv 4ml IVP 40 mg Q8H LI Administration Heparin Sodium (Porcine) 0 unit 12/06/24 21:22 12/09/24 06:47 Heparin 5,000 Unit/Ml Inj 1 Ml IVP 1,600 unit PRN PRN Administration Heparin Weight Based Protocol -Subsequent Bolus Protocol Piperacillin Sod/Tazobactam 50 mls @ 12.5 mls/hr 12/06/24 12:30 12/09/24 13:44 Sod 3.375 gm/ Sodium Chloride IV 12.5 mls/hr Q8H LI Administration Vancomycin HCl 1,250 mg in 250 mls @ 166.667 mls/hr 12/06/24 12:45 12/09/24 13:50 Vancocin IV Infused Q24H IL Infusion Heparin Sodium/Sodium Chloride 25,000 unit in 500 mls @ 0 mls/hr 12/06/24 21:30 12/09/24 13:03 Heparin Drip IV 11.64 unit/kg/hr CONT LI 18 mls/hr Protocol Titration Per Protocol Insulin Human Lispro 0 unit 12/08/24 12:00 12/09/24 12:00 Insulin Lispro 100 Unit/1 Ml SUBCUT 14 unit WM&BEDTIME LI Administration Protocol Lanolin 1 applic 12/08/24 06:11 12/08/24 06:46 Lanolin Oint 7 Gm TOPICAL 1 applic PRN PRN Administration DRYNESS Methylprednisolone Sodium Succinate 40 mg 12/07/24 05:00 12/09/24 12:01 Methylprednisolone Sod Succ 40 Mg/Ml Inj IVP 40 mg Q8H LI Administration Morphine Sulfate 2 mg 12/06/24 01:02 12/08/24 13:14 Morphine 4 Mg/Ml Sdv 1 Ml IVP 2 mg Q4H PRN Administration SEVERE PAIN Nystatin 1 applic 12/06/24 09:00 12/09/24 09:17 Nystatin Powder 15 Gm Btl TOPICAL 1 applic BID LI Administration Ondansetron HCl 4 mg 12/08/24 12:40 12/08/24 17:39 Ondansetron 2 Mg/Ml Sdv 2 Ml IVP 4 mg Q6H PRN Administration vomiting, or N/V if npo Pantoprazole Sodium 40 mg 12/09/24 09:00 12/09/24 09:16 Pantoprazole 40 Mg Sdv IVP 40 mg DAILY LI Administration Ranolazine 1,000 mg 12/06/24 09:00 12/09/24 09:17 Ranolazine (12hr) 500 Mg Tablet PO 1,000 mg BID LI Administration Sucralfate 1 gm 12/07/24 18:00 12/09/24 09:17 Sucralfate 1 Gm Tablet PO 1 gm BID LI Administration Tramadol HCl 50 mg 12/08/24 10:18 12/09/24 02:57 Tramadol 50 Mg Tablet PO 50 mg Q4H PRN Administration MODERATE PAIN PFSH Acute 2 PFSH: Medical History Dyslipidemia Essential (primary) hypertension COPD (chronic obstructive pulmonary disease) Chronic hypoxic respiratory failure, on home oxygen therapy Diabetes mellitus, type II, insulin dependent CAD (coronary artery disease) Paroxysmal A-fib CKD (chronic kidney disease) CHF (congestive heart failure) Respiratory arrest has required intubation Non-STEMI (non-ST elevated myocardial infarction) Contrast-induced nephropathy Surgical History Hx of hysterectomy Hx of CABG Family History Unknown No problems noted. Social History Smoking and tobacco/nicotine status: former use of tobacco/nicotine Alcohol intake: never Substance/Drug Use: never Vitals/I&O/Wt Last Vital Signs Temp 98.3 F 12/09/24 16:00 Pulse 66 12/09/24 16:30 Resp 19 H 12/09/24 16:30 BP 127/31 12/09/24 16:30 Pulse Ox 92 12/09/24 16:30 O2 Del Method Nasal Cannula 12/09/24 13:20 O2 Flow Rate 5 12/09/24 13:20 FiO2 40 12/08/24 03:00 12/09/24 12/09/24 12/09/24 06:59 14:59 22:59 Intake Total 789.934 / 2658.601 764.6 / 764.6 Output Total 1500 / 2550 Balance -710.066 / 108.601 764.6 / 764.6 Weight last 48 hrs Weight 167 lb 8.821 oz Weight 76 lb 9.6 oz Weight 161 lb 6.054 oz Physical Exam 2 Const: COMMON NORMALS: no acute distress and patient oriented x3 GENERAL APPEARANCE: cooperative and comfortable ORIENTATION/CONSCIOUSNESS: Yes awake, Yes oriented to person, Yes oriented to place and Yes oriented to time Chest: COMMONS NORMALS: normal inspection of the chest and normal palpation of entire chest wall CHEST: Yes Symmetrical chest wall rise Resp: COMMON NORMALS: No retractions EFFORT & INSPECTION: Yes symmetric chest movement, Yes labored, Yes uses accessory muscles and Yes prolonged expiratory phase AUSCULTATION: diminished lung sounds bilateral in the lower lung matta Cardio: COMMON NORMALS: regular rate, regular rhythm, S1 normal heart sound present, S2 normal heart sound present, No gallops present (Cardio), No clicks present (Cardio), No murmurs present (Cardio) and No rub (Cardio) RATE: r egular rate RHYTHM: regular rhythm HEART SOUNDS: S1 normal heart sound present and S2 normal heart sound present PERIPHERAL PULSES: radial pulses present Extremity: COMMON NORMALS: no pedal edema Neuro: COMMON NORMALS: patient oriented x3 and moves all extremities S ENSORIUM/ORIENTATION: Yes oriented to person, Yes oriented to place and Yes oriented to time Urinary Catheter Management: Huff: Cath Placed During This Visit: yes Reason for Continuing Indwelling Catheter: Accurate Measurement of Urinary Output in Critically Ill Patients Urinary Catheter Date of Insertion: 12/05/24 Urinary Catheter Time of Insertion: 22:48 Data 12/09/24 03:02 12/09/24 03:02 Micro: Microbiology 12/06/24 11:33 Gram Stain - Final Bone Anaerobic Culture - Preliminary Tissue Culture - Final Pseudomonas aeruginosa Providencia stuartii Methicillin Resis Staph Aureus 12/06/24 11:48 Anaerobic Culture - Preliminary Other Source 12/06/24 12:00 Gram Stain - Final Sputum - Endotracheal Tube Aspirate Sputum Culture - Final 12/06/24 11:48 Gram Stain - Final Other Source Wound Culture - Final Enterobacter cloacae Providencia stuartii Methicillin Resis Staph Aureus A&P Assessment and plan 1. CAD (coronary artery disease): 2. Paroxysmal A-fib: 3. Congestive heart failure: 4. Essential (primary) hypertension: 5. Bradycardic cardiac arrest: 6. Diabetes mellitus, type II, insulin dependent: 7. CKD (chronic kidney disease): 8. Anemia: 9. Osteomyelitis of great toe of left foot: Plan: She has well-documented multivessel CAD, has had high risk PCI attempted in [place] and at [facility], was unsuccessful at revascularization. Her LVEF is unchanged. Troponin is not significantly elevated post cardiac arrest. She is chest pain-free. Recommend to continue amiodarone 200 mg daily, continue diuresis with 40 mg 3 times daily. Beta-sabrina was discontinued at discharge during her last admission in October. We can potentially restart once diuresed if blood pressure allows, currently BP running 103-120 systolic. Hold Entresto until she is more euvolemic. Through shared decision making with the patient, no other testing is recommended at this time. PDMP PDMP Reviewed: Not Reviewed Coding Level of Care Code Acute Code for [facility] Diagnoses CAD (coronary artery disease) I25.10 Paroxysmal A-fib I48.0 Congestive heart failure I50.9 Essential (primary) hypertension I10 Bradycardic cardiac arrest R00.1; I46.2 Diabetes mellitus, type II, insulin dependent E11.9; Z79.4 CKD (chronic kidney disease) N18.9 Anemia D64.9 Osteomyelitis of great toe of left foot M86.9
--- NOTE | 2024-12-09 18:25 | PC.NURSE ---
Physician notified of low diastolic pressures. Orders given to start levophed if MAP below 60 or if urine output is inadequate
[2024-12-09 19:20] LABS: Partial Thromboplastin Time 67.3 SECONDS (23.9-36.7)
[2024-12-09] MEDS: norepinephrine 4 MG/250 ML BAG 2 MG IV (19:23)
[2024-12-09] MEDS: morphine 4 mg/mL SDV 1 mL 2 MG IVP (23:35)
[2024-12-10] VITALS (97 sets, daily range): BP systolic 80–162; BP diastolic 19–86; PULSE 60–112; RESP 13–32; TEMP 36.7; O2SAT 86–100
[2024-12-10] MEDS: piperacillin-tazobactam 3.375 GM in sodium chloride 0.9% (plus) 50 ML IV ×4 (00:24→22:45)
[2024-12-10 01:18] LABS: Hematocrit 31.7 % (36-47); Hemoglobin 9.70 g/dL (11.27-16.99); Mean Corpuscular HGB Conc 30.6 g/dL (30-55); Mean Corpuscular Hemoglobin 25.5 pg (27-33); Mean Corpuscular Volume 83.2 fl (85-98); Nucleated Red Blood Cells % 0 %; Platelet Count 234 10^3/cmm (157-399); Red Blood Count 3.81 10^6/uL (3.85-5.65); White Blood Count 23.87 10^3/uL (3.29-11.43)
[2024-12-10 01:37] LABS: Partial Thromboplastin Time 65.4 SECONDS (23.9-36.7)
[2024-12-10 01:41] LABS: Alanine Aminotransferase 40 U/L (0-33); Albumin Level 3.0 g/dL (3.5-5.2); Alkaline Phosphatase 89 U/L (35-105); Anion Gap 15.3 (5-19); Aspartate Amino Transferase 13 U/L (0-32); Blood Urea Nitrogen 36 mg/dL (8-23); Calcium 7.9 mg/dL (8.5-10.5); Carbon Dioxide 36 mmol/L (22-29); Chloride 93 mmol/L (98-107); Creatinine Clr Calc Pharmacy 47.3081; Globulin 3.2 g/dL (1.3-4.6); Glucose 307 mg/dL (65-115); Osmolality Calculated 312 mOsm/kg (285-295); Potassium 3.3 mmol/L (3.5-5.1); Sodium 141 mmol/L (136-145); Total Protein 6.2 g/dL (6.6-8.7)
[2024-12-10] MEDS: lidocaine 1% 5 ML in potassium chloride premix 100 ML 26.25 ML IV (02:57)
[2024-12-10] MEDS: FUROsemide 10 mg/mL SDV 4mL 40 MG IVP ×3 (02:57→17:32)
[2024-12-10] MEDS: methylPREDNISolone sod succ 40 mg/mL INJ IVP ×3 (05:35→20:55)
[2024-12-10] MEDS: heparin drip 25,000 UNIT/500 ML PREMIX 18 UNIT IV (08:02)
[2024-12-10] MEDS: pantoprazole 40 mg SDV IVP (08:25)
[2024-12-10] MEDS: ranolazine (12HR) 500 mg Tablet 1000 MG PO (08:25)
[2024-12-10 08:38] LABS: Partial Thromboplastin Time 52.9 SECONDS (23.9-36.7)
--- NOTE | 2024-12-10 11:38 | PICC.NOTE ---
24 hour dressing change completed to right upper arm PICC using sterile technique. Site with mild bruising noted.
[2024-12-10] MEDS: norepinephrine 4 MG/250 ML BAG 15 MG IV (13:41)
--- NOTE | 2024-12-10 13:54 | PC.NURSE ---
Removed right femoral line
--- NOTE | 2024-12-10 15:26 | P.PN_ITS ---
Subjective 2 Subjective: 84-year-old female awake alert converses appropriately. Patient tells me her breathing is improving and she feels better. She is still on low-dose Levophed at 2 mcg/kg/min. I am told that she has refused physical therapy Patient states that as long as her insurance will pay for she would be willing to stay at the residential for IV antibiotics but does not want to go to [facility] because she developed bedsores there. She states she would want to go to the in [facility] Dr. Munguia recommends 6 weeks of Zosyn and vancomycin with weekly labs until 01/13/2025. And the frequency of this medication would require inpatient or fdc if seeing facility. She had a PICC line placed and femoral line was removed today. Patient was seen by the cardiology team yesterday and patient had attempted high risk PCI at [facility] to the circumflex then did well until her PEA arrest. EF remains 45% with stable wall motion abnormalities and Dr. Velasquez recommends continued medical therapy without further cardiac testing indicated at this time Vitals/I&O/Wt Last Vital Signs Temp 98.0 F 12/10/24 06:08 Pulse 65 12/10/24 14:45 Resp 13 12/10/24 14:45 BP 99/35 12/10/24 14:45 Pulse Ox 98 12/10/24 14:45 O2 Del Method Nasal Cannula 12/10/24 08:56 O2 Flow Rate 3 12/10/24 08:56 FiO2 40 12/08/24 03:00 12/10/24 12/10/24 12/10/24 06:59 14:59 22:59 Intake Total 233.333 / 1767.366 989.983 / 989.983 Output Total 1850 / 3250 Balance -1616.667 / -1482.634 989.983 / 989.983 Weight last 48 hrs Weight 71.94 kg Weight 76 kg Weight 34.745 kg Physical Exam 2 Narrative: General well-developed well-nourished overweight female in no acute cardiopulmonary distress Talking to the patient she had no cough CV regular rate and rhythm Lungs prolonged x-ray phase with moderate air movement and some wheezing. Right lower lung with crackles Abdomen positive bowel tones soft nontender Calves no bilateral pretibial edema dorsal pedal pulses diminished but palpable in the right dorsal pedal diminished and not palpable to left dorsal pedal. Left hallux amputated patient is able to subjectively feel sensation of me touching her left toes that are remaining and she is able to wiggle them they are not gangrenous in appearance. Bilateral feet with trace edema Urinary Catheter Management: Huff: Cath Placed During This Visit: yes Reason for Continuing Indwelling Catheter: Accurate Measurement of Urinary Output in Critically Ill Patients Urinary Catheter Date of Insertion: 12/05/24 Urinary Catheter Time of Insertion: 22:48 Data 12/10/24 01:09 12/10/24 01:09 Micro: Microbiology 12/06/24 11:48 Anaerobic Culture - Preliminary Other Source Tissierella praeacuta 12/06/24 11:33 Gram Stain - Final Bone Anaerobic Culture - Preliminary Tissue Culture - Final Pseudomonas aeruginosa Providencia stuartii Methicillin Resis Staph Aureus 12/06/24 12:00 Gram Stain - Final Sputum - Endotracheal Tube Aspirate Sputum Culture - Final A&P Assessment and plan 1. Bradycardic cardiac arrest: Patient received CPR for 18 minutes on 12/06/2024 at 10 PM. This corresponds to a preceding time of hypoxemia and tachypnea heart rate 41 respiratory rate 21 systolic blood pressure 82/39. At 12/06/2024 heart rate dropped to 30. Echocardiogram next day showed LVEF 45% with akinesis of the inferior and inferolateral parkinson with severe pulmonary hypertension RVSP 70. EKG showed T wave inversions. Patient was seen by grinding machine operator portable and no further testing recommended at this time. Patient has stable wall motion abnormalities and EF around 45% Patient has history of amiodarone treated A-fib 2. Septic shock: Resolved continue antibiotics for her left foot including Zosyn and Vanco.'s chest x-ray shows bilateral pulmonary infiltrates consistent with multifocal pneumonia 3. Acute on chronic hypoxic respiratory failure: This occurred postoperatively with associated tachypnea. Patient denies history of sleep apnea. CT scan showed multi lobular right upper lung right middle lung right lower lung left lower lung multifocal pneumonia versus pulmonary edema currently treated with Zosyn and vancomycin 4. Acute on chronic systolic congestive heart failure: Continue with diuresis as blood pressure allows. Decrease Ranexa to 500 mg twice a day 5. KRISTEN (acute kidney injury): Creatinine bumped to 1.5 but now down to 1.1. Admitted with creatinine of 0.8. Developing some contraction alkalosis decrease furosemide to twice a day 6. 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 She has had poor wound healing afterwards. Appreciate podiatry recommendations. Post incision and drainage and secondary closure of surgical wound on 12/06. Follow-up cultures. Wound care dressing as per podiatry team 7. Osteomyelitis of great toe of left foot: Continue antibiotics with vancomycin and Zosyn for goal 6 weeks 8. Panlobular emphysema: Patient reports modest smoking history that she stopped 50 years ago 9. Pulmonary edema: Crackles heard in the right lower lung field blood pressure is soft to allow aggressive diuresis improved decrease diuretics to twice a day 10. Infected wound: Podiatry Service consulted 11. Diabetes mellitus: Uncontrolled type 2 diabetes mellitus with A1c of more than 10. Insulin sliding scale low-dose protocol. Takes Lantus 27 units at home. Restart Lantus as per insulin requirement in next 24 hours. 12. Paroxysmal A-fib: Patient has a known history of atrial fibrillation. Having episodes of bradycardia. Telemetry monitoring. Plan: I discussed CODE STATUS with patient today and she wants full code. She states she is planning to get remarried again has a boyfriend PDMP PDMP Reviewed: Not Reviewed Attestations 2 Medical Necessity Statement*: Patient enzo in ICU on low-dose Levophed for diuresis and treatment of multifocal lung pneumonia Coding Level of Care Code Critical Care >/= 30 minutes Diagnoses Bradycardic cardiac arrest R00.1; I46.2 Septic shock A41.9; R65.21 Acute on chronic hypoxic respiratory failure J96.21 Acute on chronic systolic congestive heart failure I50.23 Heart failure type: systolic KRISTEN (acute kidney injury) N17.9 Wound dehiscence T81.30XA Osteomyelitis of great toe of left foot M86.9 Panlobular emphysema J43.1 COPD type: emphysema Emphysema type: panlobular Pulmonary edema J81.1 Infected wound T14.8XXA; L08.9 Diabetes mellitus E11.9 Paroxysmal A-fib I48.0 Time Spent (min) 55
[2024-12-10] MEDS: ranolazine (12HR) 500 mg Tablet PO (17:32)
[2024-12-10 18:58] LABS: Partial Thromboplastin Time 80.1 SECONDS (23.9-36.7)
[2024-12-11] VITALS (102 sets, daily range): BP systolic 74–160; BP diastolic 20–96; PULSE 62–85; RESP 12–43; TEMP 36.3–37.1; O2SAT 75–100
[2024-12-11 00:59] LABS: Partial Thromboplastin Time 56.7 SECONDS (23.9-36.7)
[2024-12-11] MEDS: norepinephrine 4 MG/250 ML BAG 15 MG IV (03:12)
[2024-12-11] MEDS: methylPREDNISolone sod succ 40 mg/mL INJ IVP ×2 (04:33→13:05)
[2024-12-11] MEDS: piperacillin-tazobactam 3.375 GM in sodium chloride 0.9% (plus) 50 ML IV ×3 (05:33→21:32)
[2024-12-11 07:41] LABS: Partial Thromboplastin Time 54.5 SECONDS (23.9-36.7)
[2024-12-11] MEDS: ranolazine (12HR) 500 mg Tablet PO ×2 (08:51→17:48)
[2024-12-11] MEDS: pantoprazole 40 mg SDV IVP (08:51)
[2024-12-11] MEDS: FUROsemide 10 mg/mL SDV 4mL 40 MG IVP (08:51)
[2024-12-11] MEDS: potassium phosphate (mMol PO4) 15 MMOL in sodium chloride 0.9% (100 ml) 100 ML 47 MMOL IV (09:44)
--- NOTE | 2024-12-11 09:48 | PC.SOCIAL ---
IMM Update pg 2 of IMM Updated and reviewed w/ patient. Copy provided and copy dated, initialed and placed in chart.
[2024-12-11] MEDS: heparin drip 25,000 UNIT/500 ML PREMIX 20 UNIT IV (10:19)
--- NOTE | 2024-12-11 13:21 | PM.PN ---
Subjective Subjective: 84-year-old female awake alert converses appropriately. Patient tells me her breathing is improving and she feels better. She is still on low-dose Levophed at 2 mcg/kg/min. She has been doing physical therapy and has been accepted at the retirement [facility] in [facility] Dr. Munguia recommends 6 weeks of Zosyn and vancomycin with weekly labs until 01/13/2025. And the frequency of this medication would require inpatient or long term if seeing facility. She has a PICC line placed and femoral line was removed 12/10/2024 Patient was seen by the cardiology team 12/09/2024 and patient had underwent attempted high risk PCI at [facility] to the circumflex that could not be achieved but then did well until her PEA arrest. EF remains 45% with stable wall motion abnormalities and Dr. Velasquez recommends continued medical therapy without further cardiac testing indicated at this time. Patient has been diuresed and breathing is improved but she is hypotensive still requiring some Levophed at 2 mcg/kg/min Vitals/I&O/Wt Last Vital Signs Temp 97.7 F 12/11/24 08:45 Pulse 73 12/11/24 12:45 Resp 20 H 12/11/24 12:45 BP 129/22 12/11/24 12:45 Pulse Ox 99 12/11/24 12:45 O2 Del Method Nasal Cannula 12/11/24 08:20 O2 Flow Rate 2 12/11/24 08:20 FiO2 40 12/08/24 03:00 12/10/24 12/11/24 12/11/24 22:59 06:59 14:59 Intake Total 1467 / 2456.983 362.55 / 2819.533 812.800 / 812.800 Output Total 1400 / 1400 1100 / 2500 Balance 67 / 1056.983 -737.45 / 319.533 812.800 / 812.800 Weight last 48 hrs Weight 72.802 kg Weight 71.94 kg Physical Exam Narrative: General well-developed well-nourished overweight female in no acute cardiopulmonary distress Neck JVP 8 cm Talking to the patient she had no cough CV regular rate and rhythm Lungs prolonged expiratory phase with moderate air movement no wheezing but there are basilar crackles heard bilaterally Abdomen positive bowel tones soft nontender Calves no bilateral pretibial edema Left hallux amputated see images bilateral feet with trace edema Extremity: NARRATIVE EXTREMITY EXAM: Mid 1 is her left heel posterior laterally and second images her hallux amputation Urinary Catheter Management: Huff: Cath Placed During This Visit: yes Reason for Continuing Indwelling Catheter: Accurate Measurement of Urinary Output in Critically Ill Patients Urinary Catheter Date of Insertion: 12/05/24 Urinary Catheter Time of Insertion: 22:48 Data 12/10/24 01:09 12/10/24 01:09 Micro: Microbiology 12/06/24 11:33 Gram Stain - Final Bone Anaerobic Culture - Preliminary Tissue Culture - Final Pseudomonas aeruginosa Providencia stuartii Methicillin Resis Staph Aureus 12/05/24 19:35 Blood Culture - Final Blood NO GROWTH AFTER 5 DAYS 12/05/24 19:33 Blood Culture - Final Blood NO GROWTH AFTER 5 DAYS 12/06/24 11:48 Anaerobic Culture - Preliminary Other Source Tissierella praeacuta A&P Assessment and plan 1. Bradycardic cardiac arrest: Patient received CPR for 18 minutes on 12/06/2024 at 10 PM. This corresponds to a preceding time of hypoxemia and tachypnea heart rate 41 respiratory rate 21 systolic blood pressure 82/39. At 12/06/2024 heart rate dropped to 30. Echocardiogram next day showed LVEF 45% with akinesis of the inferior and inferolateral parkinson with severe pulmonary hypertension RVSP 70. EKG showed T wave inversions. Patient was seen by shredded filler cutter operator and no further testing recommended at this time. Patient has stable wall motion abnormalities and EF around 45% Patient has history of amiodarone treated A-fib 2. Septic shock: Resolved continue antibiotics for her left foot including Zosyn and Vanco.'s chest x-ray shows bilateral pulmonary infiltrates consistent with multifocal pneumonia Weaning off Levophed 2 mcg/kg/min start midodrine 5 mg 3 times daily back off on diuretics 3. Acute on chronic hypoxic respiratory failure: This occurred postoperatively with associated tachypnea. Patient denies history of sleep apnea. CT scan showed multi lobular right upper lung right middle lung right lower lung left lower lung multifocal pneumonia versus pulmonary edema currently treated with Zosyn and vancomycin Continue incentive spirometer. Patient is on 2 L/min oxygen now 100% 4. Acute on chronic systolic congestive heart failure: Continue with diuresis as blood pressure allows. Decrease Ranexa to 500 mg twice a day 5. KRISTEN (acute kidney injury): Creatinine bumped to 1.5 but now down to 1.1. Admitted with creatinine of 0.8. Developing some contraction alkalosis decrease furosemide to once a day. Replace phosphorus and magnesium 6. 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 She has had poor wound healing afterwards. Appreciate podiatry recommendations. Post incision and drainage and secondary closure of surgical wound on 12/06. Follow-up cultures. Wound care dressing as per podiatry team 7. Osteomyelitis of great toe of left foot: Continue antibiotics with vancomycin and Zosyn for goal 6 weeks as discussed with Dr. Munguia today 8. Panlobular emphysema: Patient reports modest smoking history that she stopped 50 years ago 9. Pulmonary edema: Crackles heard in the bilateral lower lung field blood pressure is soft to allow aggressive diuresis improved decrease diuretics to twice a day 10. Diabetes mellitus: Uncontrolled type 2 diabetes mellitus with A1c of more than 10. Increase insulin sliding scale high-dose protocol. Increase Lantus 35 units. Every morning first dose now Decrease steroid to Decadron 4 mg daily 11. Paroxysmal A-fib: Patient has a known history of atrial fibrillation. No further bradycardia since 12/06/2024 but also no tachycardia Telemetry monitoring. Plan: I discussed CODE STATUS with patient 12/10/2024 and she wants full code. She states she is planning to get remarried again has a boyfriend PDMP PDMP Reviewed: Not Reviewed Attestations Medical Necessity Statement*: Patient remains in the hospital for weaning off Levophed and switch to midodrine and diuresis Coding Level of Care Code Acute Code for [facility] F[facility] Diagnoses Bradycardic cardiac arrest R00.1; I46.2 Septic shock A41.9; R65.21 Acute on chronic hypoxic respiratory failure J96.21 Acute on chronic systolic congestive heart failure I50.23 Heart failure type: systolic KRISTEN (acute kidney injury) N17.9 Wound dehiscence T81.30XA Osteomyelitis of great toe of left foot M86.9 Panlobular emphysema J43.1 COPD type: emphysema Emphysema type: panlobular Pulmonary edema J81.1 Diabetes mellitus E11.9 Paroxysmal A-fib I48.0 Time Spent (min) 45
[2024-12-12] VITALS (49 sets, daily range): BP systolic 101–155; BP diastolic 41–90; PULSE 61–74; RESP 13–35; TEMP 36.6–37.1; O2SAT 89–100; BMI 33.1
[2024-12-12 05:31] LABS: Hematocrit 29.2 % (36-47); Hemoglobin 9.00 g/dL (11.27-16.99); Mean Corpuscular HGB Conc 30.8 g/dL (30-55); Mean Corpuscular Hemoglobin 25.6 pg (27-33); Mean Corpuscular Volume 83.2 fl (85-98); Nucleated Red Blood Cells % 0 %; Platelet Count 183 10^3/cmm (157-399); Red Blood Count 3.51 10^6/uL (3.85-5.65); White Blood Count 17.38 10^3/uL (3.29-11.43)
[2024-12-12] MEDS: piperacillin-tazobactam 3.375 GM in sodium chloride 0.9% (plus) 50 ML IV ×3 (05:49→21:34)
[2024-12-12 05:59] LABS: Alanine Aminotransferase 21 U/L (0-33); Albumin Level 2.5 g/dL (3.5-5.2); Alkaline Phosphatase 65 U/L (35-105); Anion Gap 13.0 (5-19); Aspartate Amino Transferase 10 U/L (0-32); Blood Urea Nitrogen 39 mg/dL (8-23); Calcium 8.0 mg/dL (8.5-10.5); Carbon Dioxide 35 mmol/L (22-29); Chloride 96 mmol/L (98-107); Creatinine Clr Calc Pharmacy 56.6303; Globulin 2.8 g/dL (1.3-4.6); Glucose 210 mg/dL (65-115); Osmolality Calculated 306 mOsm/kg (285-295); Potassium 4.0 mmol/L (3.5-5.1); Sodium 140 mmol/L (136-145); Total Protein 5.3 g/dL (6.6-8.7)
[2024-12-12 06:04] LABS: Magnesium 1.9 mg/dL (1.7-2.3)
[2024-12-12] MEDS: insulin glargine 100 units/1 mL 35 UNIT SUBCUT (07:53)
[2024-12-12] MEDS: FUROsemide 10 mg/mL SDV 4mL 40 MG IVP (09:04)
[2024-12-12] MEDS: ranolazine (12HR) 500 mg Tablet PO ×2 (09:04→17:12)
--- NOTE | 2024-12-12 09:51 | PC.NURSE ---
Report called to medical surgical floor patient is to move to room 253-2. Patient requested that all of her family listed in her contact, two daughters and her son be called and notified of her new room assignment. This has been completed as requested.
--- NOTE | 2024-12-12 10:22 | PC.NURSE ---
Patient transferred via bed on 2L NC. Patient belongings including cellphone with her upon transfer. Patient oriented to room by LIANA Kumar who was at bedside to receive patient. Patient on 2L NC, with no requests or complaints at the time this nurse handed off care. Paper chart left with staff at [facility] [employer].
--- NOTE | 2024-12-12 12:17 | P.PN_ITS ---
Subjective 2 Subjective: 84-year-old female admitted wi th left foot infection toe osteomyelitis status post amputation by Dr. Goodman Dr. Munguia recommends 6 weeks of Zosyn and vancomycin with weekly labs until 01/13/2025. And the frequency of this medication would require inpatient or fdc if seeing facility. She has a PICC line placed and femoral line was removed 12/10/2024 Patient was seen by the cardiology team 12/09/2024 and patient had underwent attempted high risk PCI at [facility] to the circumflex that could not be achieved but then did well until her PEA arrest. EF remains 45% with stable wall motion abnormalities and Dr. Velasquez recommends continued medical therapy without further cardiac testing indicated at this time. Patient started on midodrine last evening and now completely off Levophed and feeling better. She states she is getting better. Patient reports weakness and on willingness or inability to get up and use commode. She is complaining of some back pain Vitals/I&O/Wt Last Vital Signs Temp 97.9 F 12/12/24 11:57 Pulse 74 12/12/24 11:57 Resp 16 12/12/24 11:57 BP 123/61 12/12/24 11:57 Pulse Ox 94 12/12/24 11:57 O2 Del Method Nasal Cannula 12/12/24 11:57 O2 Flow Rate 2 12/12/24 09:30 FiO2 40 12/08/24 03:00 12/11/24 12/12/24 12/12/24 22:59 06:59 14:59 Intake Total 591.875 / 1536.675 53.75 / 1590.425 272 / 272 Output Total 1800 / 1800 700 / 2500 Balance -1208.125 / -263.325 -646.25 / -909.575 272 / 272 Weight last 48 hrs Weight 74.435 kg Weight 72.802 kg Physical Exam 2 Narrative: General well-developed well-nourished overweight female in no acute cardiopulmonary distress Talking to the patient she had no cough CV regular rate and rhythm Lungs prolonged expiratory phase with moderate air movement no wheezing but there are basilar crackles heard bilaterally Abdomen positive bowel tones soft nontender Calves no bilateral pretibial edema Urinary Catheter Management: Huff: Cath Placed During This Visit: yes Reason for Continuing Indwelling Catheter: Accurate Measurement of Urinary Output in Critically Ill Patients Urinary Catheter Date of Insertion: 12/05/24 Urinary Catheter Time of Insertion: 22:48 Data 12/12/24 05:05 12/12/24 05:05 Micro: Microbiology 12/06/24 11:33 Gram Stain - Final Bone Anaerobic Culture - Preliminary Tissue Culture - Final Pseudomonas aeruginosa Providencia stuartii Methicillin Resis Staph Aureus A&P Assessment and plan 1. Bradycardic cardiac arrest: Patient received CPR for 18 minutes on 12/06/2024 at 10 PM. This corresponds to a preceding time of hypoxemia and tachypnea heart rate 41 respiratory rate 21 systolic blood pressure 82/39. At 12/06/2024 heart rate dropped to 30. Echocardiogram next day showed LVEF 45% with akinesis of the inferior and inferolateral parkinson with severe pulmonary hypertension RVSP 70. EKG showed T wave inversions. Patient was seen by roller pneumatic and no further testing recommended at this time. Patient has stable wall motion abnormalities and EF around 45% Patient has history of amiodarone treated A-fib. Resume amiodarone 2. Septic shock: Resolved continue antibiotics for her left foot including Zosyn and Vanco.'s chest x-ray shows bilateral pulmonary infiltrates consistent with multifocal pneumonia Continue midodrine and diuresis 3. Acute on chronic hypoxic respiratory failure: This occurred postoperatively with associated tachypnea. Patient denies history of sleep apnea. CT scan showed multi lobular right upper lung right middle lung right lower lung left lower lung multifocal pneumonia versus pulmonary edema currently treated with Zosyn and vancomycin Continue incentive spirometer. Patient is on 2 L/min oxygen now 100% 4. Acute on chronic systolic congestive heart failure: Continue with diuresis as blood pressure allows. Decrease Ranexa to 500 mg twice a day due to hypotension 5. KRISTEN (acute kidney injury): Creatinine bumped to 1.5 but now down to 1.1. Admitted with creatinine of 0.8. Developing some contraction alkalosis decrease furosemide to once a day. Replace phosphorus and magnesium 6. 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 She has had poor wound healing afterwards. Appreciate podiatry recommendations. Post incision and drainage and secondary closure of surgical wound on 12/06. Follow-up cultures. Wound care dressing as per podiatry team 7. Osteomyelitis of great toe of left foot: Continue antibiotics with vancomycin and Zosyn for goal 6 weeks as discussed with Dr. Munguia today on 12/11/2024 White count has decreased to 17.38 8. Panlobular emphysema: Patient reports modest smoking history that she stopped 50 years ago 9. Pulmonary edema: Crackles heard in the bilateral lower lung field blood pressure is soft to allow aggressive diuresis improved decrease diuretics to twice a day 10. Diabetes mellitus: Uncontrolled type 2 diabetes mellitus with A1c of more than 10. Increase insulin sliding scale high-dose protocol. Increase Lantus 35 units. Every morning first dose now Decreased steroid to Decadron 4 mg daily 11. Paroxysmal A-fib: Patient has a known history of atrial fibrillation. No further bradycardia since 12/06/2024 but also no tachycardia Telemetry monitoring. Resume amiodarone 200 mg daily Plan: I discussed CODE STATUS with patient 12/10/2024 and she wants full code. She states she is planning to get remarried again has a boyfriend PDMP PDMP Reviewed: Not Reviewed Attestations 2 Medical Necessity Statement*: Patient is transferred to the floor D[facility] jacobson increase activity anticipate 1-2 midnights in hospital before transfer to the fdc facility Coding Level of Care Code 49800 Diagnoses Bradycardic cardiac arrest R00.1; I46.2 Septic shock A41.9; R65.21 Acute on chronic hypoxic respiratory failure J96.21 Acute on chronic systolic congestive heart failure I50.23 Heart failure type: systolic KRISTEN (acute kidney injury) N17.9 Wound dehiscence T81.30XA Osteomyelitis of great toe of left foot M86.9 Panlobular emphysema J43.1 COPD type: emphysema Emphysema type: panlobular Pulmonary edema J81.1 Diabetes mellitus E11.9 Paroxysmal A-fib I48.0 Time Spent (min) 35
[2024-12-12] MEDS: HYDROcodone-acetaminophen 5-325 mg Tablet 1 TAB PO ×2 (12:29→20:00)
[2024-12-13] VITALS (12 sets, daily range): BP systolic 115–143; BP diastolic 58–80; PULSE 60–76; RESP 16–19; TEMP 36.4–36.8; O2SAT 91–97
[2024-12-13 05:04] LABS: Hematocrit 30.0 % (36-47); Hemoglobin 9.00 g/dL (11.27-16.99); Mean Corpuscular HGB Conc 30.0 g/dL (30-55); Mean Corpuscular Hemoglobin 25.0 pg (27-33); Mean Corpuscular Volume 83.3 fl (85-98); Nucleated Red Blood Cells % 0 %; Platelet Count 193 10^3/cmm (157-399); Red Blood Count 3.60 10^6/uL (3.85-5.65); White Blood Count 17.82 10^3/uL (3.29-11.43)
--- NOTE | 2024-12-13 06:01 | PC.NURSE ---
Addendum entered by Chloé Elizalde LPN 12/13/24 07:11: This nurse went to reassess patients blood sugar @0630 and patients blood sugar was 118. Original Note: This nurse went to check patients blood sugar @0552 since patient has lantus 35 units ordered @0600. After getting patients blood sugar it was 74. This nurse gave the patient an orange juice. Patients lantus was not given. This will reevaluate blood sugar in 30 minutes.
[2024-12-13] MEDS: piperacillin-tazobactam 3.375 GM in sodium chloride 0.9% (plus) 50 ML IV ×3 (06:35→22:08)
[2024-12-13 06:53] LABS: Alanine Aminotransferase 18 U/L (0-33); Albumin Level 2.7 g/dL (3.5-5.2); Alkaline Phosphatase 69 U/L (35-105); Anion Gap 13.7 (5-19); Aspartate Amino Transferase 12 U/L (0-32); Blood Urea Nitrogen 29 mg/dL (8-23); Calcium 7.9 mg/dL (8.5-10.5); Carbon Dioxide 35 mmol/L (22-29); Chloride 94 mmol/L (98-107); Creatinine Clr Calc Pharmacy 64.4948; Globulin 2.3 g/dL (1.3-4.6); Glucose 101 mg/dL (65-115); Magnesium 1.8 mg/dL (1.7-2.3); Osmolality Calculated 294 mOsm/kg (285-295); Potassium 3.7 mmol/L (3.5-5.1); Sodium 139 mmol/L (136-145); Total Protein 5.0 g/dL (6.6-8.7)
[2024-12-13] MEDS: HYDROcodone-acetaminophen 5-325 mg Tablet 1 TAB PO ×2 (07:51→17:08)
[2024-12-13] MEDS: FUROsemide 10 mg/mL SDV 4mL 40 MG IVP (07:52)
[2024-12-13] MEDS: ranolazine (12HR) 500 mg Tablet PO ×2 (07:52→17:08)
--- NOTE | 2024-12-13 09:59 | PC.SOCIAL ---
IMM Updated Updated pt on IMM. No questions voiced. Provided pt a copy. Initialed, dated, & timed copy in chart.
--- NOTE | 2024-12-13 13:02 | PC.SLP ---
Pt asleep. Nursing reported no difficulties with lunch.
--- NOTE | 2024-12-13 13:44 | P.PN_ITS ---
Vitals/I&O/Wt Last Vital Signs Temp 97.4 F L 12/14/24 11:00 Pulse 70 12/14/24 13:35 Resp 16 12/14/24 13:33 BP 127/72 12/14/24 11:00 Pulse Ox 94 12/14/24 13:33 O2 Del Method Nasal Cannula 12/14/24 13:33 O2 Flow Rate 2 12/14/24 13:33 FiO2 40 12/08/24 03:00 12/13/24 12/14/24 12/14/24 22:59 06:59 14:59 Intake Total 540 / 1070.000 50 / 1120.000 170 / 170 Balance 540 / 1070.000 50 / 1120.000 170 / 170 Weight last 48 hrs Weight 158 lb 11.2 oz Weight 166 lb 2 oz Physical Exam 2 Urinary Catheter Management: Huff: Cath Placed During This Visit: yes Reason for Continuing Indwelling Catheter: Accurate Measurement of Urinary Output in Critically Ill Patients Urinary Catheter Date of Insertion: 12/05/24 Urinary Catheter Time of Insertion: 22:48 Data 12/13/24 04:22 12/13/24 06:22 Micro: Microbiology 12/06/24 11:33 Gram Stain - Final Bone Anaerobic Culture - Final Tissue Culture - Final Pseudomonas aeruginosa Providencia stuartii Methicillin Resis Staph Aureus A&P PDMP PDMP Reviewed: Not Reviewed Coding Level of Care Code Acute Code for [facility]
--- NOTE | 2024-12-13 15:09 | PC.NURSE ---
Medications sent to [facility] today as patient may discharge tomorrow.
--- NOTE | 2024-12-13 15:30 | PM.PN ---
Subjective Subjective: 84-year-old female admitted with left foot infection toe osteomyelitis status post amputation by Dr. Goodman Dr. Munguia recommends 6 weeks of Zosyn and vancomycin with weekly labs until 01/13/2025. And the frequency of this medication would require inpatient or senior care if seeing facility. She has a PICC line placed and femoral line was removed 12/10/2024 Patient was seen by the cardiology team 12/09/2024 and patient had underwent attempted high risk PCI at [facility] to the circumflex that could not be achieved but then did well until her PEA arrest. EF remains 45% with stable wall motion abnormalities and Dr. Velasquez recommends continued medical therapy without further cardiac testing indicated at this time. Patient is on midodrine and I stopped the Entresto due to low blood pressure. She is on half dose ranolazine and feels fine. Patient is watching TV in bed and has juice at bedside. I counseled patient that she needs to do therapy to progress to walking. She needs to lose weight and also stop drinking juice. Patient reports a desire to improve and get though she says she may not be doing that marriage after all. She is interested in weight loss diet. She tells me she used to have diarrhea with vegetables but is willing to try eating them again Vitals/I&O/Wt Last Vital Signs Temp 97.6 F 12/13/24 13:35 Pulse 76 12/13/24 13:49 Resp 18 12/13/24 13:49 BP 118/60 12/13/24 13:35 Pulse Ox 93 12/13/24 13:49 O2 Del Method Nasal Cannula 12/13/24 13:49 O2 Flow Rate 2 12/13/24 13:49 FiO2 40 12/08/24 03:00 12/13/24 12/13/24 12/13/24 06:59 14:59 22:59 Intake Total 170 / 1402.00 530.000 / 530.000 Balance 170 / -498.00 530.000 / 530.000 Weight last 48 hrs Weight 75.353 kg Weight 74.435 kg Physical Exam Narrative: General well-developed well-nourished overweight female in no acute cardiopulmonary distress Talking to the patient she had no cough. Deep breaths and percussion on the back did evidence a wet cough that improved her air movement markedly CV regular rate and rhythm Lungs prolonged expiratory phase with good air movement upper lung matta. Lower lung matta poor air movement with deep breaths and cough right lung developed crackles left lung still with decreased air movement Abdomen positive bowel tones soft nontender Calves no bilateral pretibial edema Data 12/13/24 04:22 12/13/24 06:22 Micro: Microbiology 12/06/24 11:33 Gram Stain - Final Bone Anaerobic Culture - Final Tissue Culture - Final Pseudomonas aeruginosa Providencia stuartii Methicillin Resis Staph Aureus A&P Assessment and plan 1. Bradycardic cardiac arrest: Patient received CPR for 18 minutes on 12/06/2024 at 10 PM. This corresponds to a preceding time of hypoxemia and tachypnea heart rate 41 respiratory rate 21 systolic blood pressure 82/39. At 12/06/2024 heart rate dropped to 30. Echocardiogram next day showed LVEF 45% with akinesis of the inferior and inferolateral parkinson with severe pulmonary hypertension RVSP 70. EKG showed T wave inversions. Patient was seen by wastewater treatment plant attendant and no further testing recommended at this time. Patient has stable wall motion abnormalities and EF around 45% Patient has history of amiodarone treated A-fib. Resume amiodarone 2. Acute on chronic hypoxic respiratory failure: This occurred postoperatively with associated tachypnea. Patient denies history of sleep apnea. CT scan showed multi lobular right upper lung right middle lung right lower lung left lower lung multifocal pneumonia versus pulmonary edema currently treated with Zosyn and vancomycin Continue incentive spirometer. Patient is on 2 L/min oxygen now 100% Patient to be up in a chair with mobilizing fluid 3. Acute on chronic systolic congestive heart failure: Continue with diuresis as blood pressure allows. Decrease Ranexa to 500 mg twice a day due to hypotension Up in a chair twice daily changed to oral diuretics 40 mg daily furosemide 20 mg daily potassium chloride 4. KRISTEN (acute kidney injury): Renal function back to normal. Replace phosphorus and magnesium 5. 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 She has had poor wound healing afterwards. Appreciate podiatry recommendations. Post incision and drainage and secondary closure of surgical wound on 12/06. Follow-up cultures. Wound care dressing as per podiatry team 6. Osteomyelitis of great toe of left foot: Continue antibiotics with vancomycin and Zosyn for goal 6 weeks as discussed with Dr. Munguia today on 12/11/2024 White count has decreased to 17.38 Toe was resected but she requires additional total 6 weeks antibiotics for hopes of curing osteomyelitis out of the foot and will require close blood sugar control and increase mobility. Stop drinking soda and work at weight loss 2 pounds per week down 110 pounds with her 5 foot high 7. Panlobular emphysema: Patient reports modest smoking history that she stopped 50 years ago 8. Pulmonary edema: Still with diminished breath sounds left base and crackles in the right base 9. Diabetes mellitus: Uncontrolled type 2 diabetes mellitus with A1c of more than 10. Increase insulin sliding scale high-dose protocol. Increase Lantus 35 units. Every morning first dose now Stopped Decadron monitor for hypotension. Blood sugar this morning was 118 and it is not clear to me why her blood sugar is 291 other than she ate too much for breakfast 10. Paroxysmal A-fib: Patient has a known history of atrial fibrillation. No further bradycardia since 12/06/2024 but also no tachycardia Telemetry monitoring. Resume amiodarone 200 mg daily Plan: I discussed CODE STATUS with patient 12/10/2024 and she wants full code. She states she is planning to get remarried again has a boyfriend PDMP PDMP Reviewed: Not Reviewed Attestations Medical Necessity Statement*: Patient remains in the hospital with plans for transfer to their senior care facility tomorrow. I have completed the med reconciliation Coding Level of Care Code 32059 Diagnoses Bradycardic cardiac arrest R00.1; I46.2 Acute on chronic hypoxic respiratory failure J96.21 Acute on chronic systolic congestive heart failure I50.23 Heart failure type: systolic KRISTEN (acute kidney injury) N17.9 Wound dehiscence T81.30XA Osteomyelitis of great toe of left foot M86.9 Panlobular emphysema J43.1 COPD type: emphysema Emphysema type: panlobular Pulmonary edema J81.1 Diabetes mellitus E11.9 Paroxysmal A-fib I48.0 Time Spent (min) 35
[2024-12-14] VITALS (11 sets, daily range): BP systolic 122–138; BP diastolic 66–79; PULSE 60–79; RESP 15–17; TEMP 36.3–36.9; O2SAT 90–98
[2024-12-14] MEDS: insulin glargine 100 units/1 mL 35 UNIT SUBCUT (06:03)
[2024-12-14] MEDS: piperacillin-tazobactam 3.375 GM in sodium chloride 0.9% (plus) 50 ML IV ×2 (06:03→15:18)
[2024-12-14] MEDS: ranolazine (12HR) 500 mg Tablet PO ×2 (08:55→17:34)
--- NOTE | 2024-12-14 16:30 | PM.PN ---
Subjective Subjective: 84-year-old female admitted with left foot infection toe osteomyelitis status post amputation by Dr. Goodman Dr. Munguia recommends 6 weeks of Zosyn and vancomycin with weekly labs until 01/13/2025. And the frequency of this medication would require inpatient or [facility] if seeing facility. She has a PICC line placed and femoral line was removed 12/10/2024 Patient reports she is doing all the things that we discussed yesterday and did do therapy today. We are awaiting insurance approval for transfer back to the care home Vitals/I&O/Wt Last Vital Signs Temp 98.4 F 12/14/24 15:00 Pulse 69 12/14/24 15:00 Resp 15 12/14/24 15:00 BP 126/73 12/14/24 15:00 Pulse Ox 92 12/14/24 15:00 O2 Del Method Room Air 12/14/24 15:00 O2 Flow Rate 2 12/14/24 13:33 FiO2 40 12/08/24 03:00 12/14/24 12/14/24 12/14/24 06:59 14:59 22:59 Intake Total 50 / 1120.000 220 / 220 Balance 50 / 1120.000 220 / 220 Weight last 48 hrs Weight 71.985 kg Weight 75.353 kg Physical Exam Narrative: General well-developed well-nourished overweight female in no acute cardiopulmonary distress Talking to the patient she had no cough. Decreased breath sounds in the bases with some crackles improved with coughing CV regular rate and rhythm Lungs prolonged expiratory phase with good air movement upper lung matta. Lower lung matta poor air movement with deep breaths and cough crackles in the bases improved with deep breaths and coughing Abdomen positive bowel tones soft nontender Calves no bilateral pretibial edema Urinary Catheter Management: Huff: Cath Placed During This Visit: yes Reason for Continuing Indwelling Catheter: Accurate Measurement of Urinary Output in Critically Ill Patients Urinary Catheter Date of Insertion: 12/05/24 Urinary Catheter Time of Insertion: 22:48 Data 12/13/24 04:22 12/13/24 06:22 Micro: Microbiology 12/06/24 11:33 Gram Stain - Final Bone Anaerobic Culture - Final Tissue Culture - Final Pseudomonas aeruginosa Providencia stuartii Methicillin Resis Staph Aureus A&P Assessment and plan 1. Bradycardic cardiac arrest: Patient received CPR for 18 minutes on 12/06/2024 at 10 PM. This corresponds to a preceding time of hypoxemia and tachypnea heart rate 41 respiratory rate 21 systolic blood pressure 82/39. At 12/06/2024 heart rate dropped to 30. Echocardiogram next day showed LVEF 45% with akinesis of the inferior and inferolateral parkinson with severe pulmonary hypertension RVSP 70. EKG showed T wave inversions. Patient was seen by traffic division commanding officer and no further testing recommended at this time. Patient has stable wall motion abnormalities and EF around 45% Patient has history of amiodarone treated A-fib. Resume amiodarone 2. Acute on chronic hypoxic respiratory failure: This occurred postoperatively with associated tachypnea. Patient denies history of sleep apnea. CT scan showed multi lobular right upper lung right middle lung right lower lung left lower lung multifocal pneumonia versus pulmonary edema currently treated with Zosyn and vancomycin Continue incentive spirometer. Patient is on 2 L/min oxygen now 100% 92% on room air Patient to be up in a chair with mobilizing fluid 3. Acute on chronic systolic congestive heart failure: Continue with diuresis as blood pressure allows. Decrease Ranexa to 500 mg twice a day due to hypotension Up in a chair twice daily changed to oral diuretics 40 mg daily furosemide 20 milliequivalent daily potassium chloride 4. KRISTEN (acute kidney injury): Renal function back to normal. Replace phosphorus and magnesium 5. 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 She has had poor wound healing afterwards. Appreciate podiatry recommendations. Post incision and drainage and secondary closure of surgical wound on 12/06. Follow-up cultures. Wound care dressing as per podiatry team 6. Osteomyelitis of great toe of left foot: Continue antibiotics with vancomycin and Zosyn for goal 6 weeks as discussed with Dr. Munguia today on 12/11/2024 White count has decreased to 17.38 Toe was resected but she requires additional total 6 weeks antibiotics for hopes of curing osteomyelitis out of the foot and will require close blood sugar control and increase mobility. Stop drinking soda and work at weight loss 2 pounds per week down 110 pounds with her 5 foot high 7. Panlobular emphysema: Patient reports modest smoking history that she stopped 50 years ago 8. Pulmonary edema: Much improved 9. Diabetes mellitus: Uncontrolled type 2 diabetes mellitus with A1c of more than 10. Increase insulin sliding scale high-dose protocol. Increase Lantus 35 units. Every morning first dose now Stopped Decadron monitor for hypotension. Blood sugars today 130 and 137 evidencing improvement in her diet 10. Paroxysmal A-fib: Patient has a known history of atrial fibrillation. No further bradycardia since 12/06/2024 but also no tachycardia Telemetry monitoring. Resume amiodarone 200 mg daily resume home apixaban Plan: I discussed CODE STATUS with patient 12/10/2024 and she wants full code. She states she is planning to get remarried again has a boyfriend PDMP PDMP Reviewed: Not Reviewed Attestations Medical Necessity Statement*: Patient is awaiting insurance approval to go back to the care home Coding Level of Care Code 08734 Diagnoses Bradycardic cardiac arrest R00.1; I46.2 Acute on chronic hypoxic respiratory failure J96.21 Acute on chronic systolic congestive heart failure I50.23 Heart failure type: systolic KRISTEN (acute kidney injury) N17.9 Wound dehiscence T81.30XA Osteomyelitis of great toe of left foot M86.9 Panlobular emphysema J43.1 COPD type: emphysema Emphysema type: panlobular Pulmonary edema J81.1 Diabetes mellitus E11.9 Paroxysmal A-fib I48.0 Time Spent (min) 25
[2024-12-14 18:52] LABS: CRP High Sensitivity Cardiac 3.450 mg/dL (0.0-0.3)
[2024-12-15] VITALS (13 sets, daily range): BP systolic 100–137; BP diastolic 43–77; PULSE 65–93; RESP 16–20; TEMP 36.5–37.3; O2SAT 91–99
[2024-12-15] MEDS: piperacillin-tazobactam 3.375 GM in sodium chloride 0.9% (plus) 50 ML IV ×3 (01:23→18:39)
[2024-12-15 02:21] LABS: Hematocrit 33.4 % (36-47); Hemoglobin 10.00 g/dL (11.27-16.99); Mean Corpuscular HGB Conc 29.9 g/dL (30-55); Mean Corpuscular Hemoglobin 24.9 pg (27-33); Mean Corpuscular Volume 83.3 fl (85-98); Nucleated Red Blood Cells % 0 %; Platelet Count 251 10^3/cmm (157-399); Red Blood Count 4.01 10^6/uL (3.85-5.65); White Blood Count 18.63 10^3/uL (3.29-11.43)
[2024-12-15 02:47] LABS: Alanine Aminotransferase 14 U/L (0-33); Albumin Level 3.0 g/dL (3.5-5.2); Alkaline Phosphatase 73 U/L (35-105); Anion Gap 12.6 (5-19); Aspartate Amino Transferase 13 U/L (0-32); Blood Urea Nitrogen 22 mg/dL (8-23); Calcium 8.2 mg/dL (8.5-10.5); Carbon Dioxide 34 mmol/L (22-29); Chloride 95 mmol/L (98-107); Creatinine Clr Calc Pharmacy 61.6122; Globulin 2.2 g/dL (1.3-4.6); Glucose 54 mg/dL (65-115); Iron 31 ug/dL (37-145); Magnesium 2.2 mg/dL (1.7-2.3); Osmolality Calculated 287 mOsm/kg (285-295); Potassium 3.6 mmol/L (3.5-5.1); Sodium 138 mmol/L (136-145); Total Iron Binding Capacity 219 mcg/dl; Total Protein 5.2 g/dL (6.6-8.7); Unsaturated Iron Binding 188 ug/dL (112-347)
--- NOTE | 2024-12-15 06:36 | PC.NURSE ---
This nurse checked patients blood glucose via accucheck at 03:19 due to patient being lethargic and sweating. Patients glucose was 68. This nurse gave patient 120 cc of orange juice. This nurse re checked BG at 05:50 and it was up to 91. This nurse continued to monitor patient for remainder of shift.
[2024-12-15] MEDS: ranolazine (12HR) 500 mg Tablet PO ×2 (09:19→17:29)
--- NOTE | 2024-12-15 16:15 | P.PN_ITS ---
Subjective 2 Subjective: 84-year-old female admitted wi th left foot infection toe osteomyelitis status post amputation by Dr. Goodman Dr. Munguia recommends 6 weeks of Zosyn and vancomycin with weekly labs until 01/13/2025. And the frequency of this medication would require inpatient or correction if seeing facility. She has a PICC line placed and femoral line was removed 12/10/2024 Patient reports she is doing all the things that we discussed yesterday and did do therapy today. We are awaiting insurance approval for transfer back to the halfway Patient states she did do therapy today. She reports willingness to continue to do therapy and comply with diet for weight loss. We discussed that her white count remains elevated that she may actually still have an infection going on in her foot. The terminal block assembler antibiotics are goal directed to clearing potential further infection in the foot but osteomyelitis is hard to clear especially in diabetics. Vitals/I&O/Wt Last Vital Signs Temp 98.2 F 12/15/24 11:10 Pulse 77 12/15/24 14:16 Resp 18 12/15/24 14:16 BP 130/68 12/15/24 11:10 Pulse Ox 94 12/15/24 14:16 O2 Del Method Nasal Cannula 12/15/24 14:16 O2 Flow Rate 2 12/15/24 14:16 FiO2 40 12/08/24 03:00 12/15/24 12/15/24 12/15/24 06:59 14:59 22:59 Intake Total 50 / 620 120 / 120 Balance 50 / 620 120 / 120 Weight last 48 hrs Weight 71.985 kg Weight 71.985 kg Physical Exam 2 Narrative: General well-developed well-nourished overweight female in no acute cardiopulmonary distress CV regular rate and rhythm Lungs prolonged expiratory phase with good air movement upper lung matta. Lower lung matta poor air movement with deep breaths and cough crackles present right lower lung field Abdomen positive bowel tones soft nontender Calves no bilateral pretibial edema Urinary Catheter Management: Huff: Cath Placed During This Visit: yes Reason for Continuing Indwelling Catheter: Accurate Measurement of Urinary Output in Critically Ill Patients Urinary Catheter Date of Insertion: 12/05/24 Urinary Catheter Time of Insertion: 22:48 Data 12/15/24 01:22 12/15/24 01:22 A&P Assessment and plan 1. Bradycardic cardiac arrest: Patient received CPR for 18 minutes on 12/06/2024 at 10 PM. This corresponds to a preceding time of hypoxemia and tachypnea heart rate 41 respiratory rate 21 systolic blood pressure 82/39. At 12/06/2024 heart rate dropped to 30. Echocardiogram next day showed LVEF 45% with akinesis of the inferior and inferolateral parkinson with severe pulmonary hypertension RVSP 70. EKG showed T wave inversions. Patient was seen by brush trimming machine setter and no further testing recommended at this time. Patient has stable wall motion abnormalities and EF around 45% Patient has history of amiodarone treated A-fib. Continue amiodarone and apixaban 2. Acute on chronic hypoxic respiratory failure: This occurred postoperatively with associated tachypnea. Patient denies history of sleep apnea. CT scan showed multi lobular right upper lung right middle lung right lower lung left lower lung multifocal pneumonia versus pulmonary edema currently treated with Zosyn and vancomycin Continue incentive spirometer. Patient is on 2 L/min oxygen now 100% 92% on room air Patient to be up in a chair with mobilizing fluid Breathing is improved but still with right lower lung crackles. Last chest x- ray on 12/09/2024. Will repeat portable chest x-ray now 3. Acute on chronic systolic congestive heart failure: Continue with diuresis as blood pressure allows. Decrease Ranexa to 500 mg twice a day due to hypotension Up in a chair twice daily changed to oral diuretics 40 mg daily furosemide 20 milliequivalent daily potassium chloride X-ray as above 4. KRISTEN (acute kidney injury): Renal function back to normal. Replace phosphorus and magnesium 5. 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 She has had poor wound healing afterwards. Appreciate podiatry recommendations. Post incision and drainage and secondary closure of surgical wound on 12/06. Follow-up cultures. Wound care dressing as per podiatry team 6. Osteomyelitis of great toe of left foot: Continue antibiotics with vancomycin and Zosyn for goal 6 weeks as discussed with Dr. Munguia today on 12/11/2024 White count has decreased to 17.38 Toe was resected but she requires additional total 6 weeks antibiotics for hopes of curing osteomyelitis out of the foot and will require close blood sugar control and increase mobility. Stop drinking soda and work at weight loss 2 pounds per week down 110 pounds with her 5 foot high CRP is 40 which represents a rise. May need additional imaging of the foot 7. Panlobular emphysema: Patient reports modest smoking history that she stopped 50 years ago 8. Diabetes mellitus: Uncontrolled type 2 diabetes mellitus with A1c of more than 10. Increase insulin sliding scale high-dose protocol. Increase Lantus 35 units. Every morning first dose now Stopped Decadron monitor for hypotension. Blood sugars 68 overnight but 310 before lunch 9. Paroxysmal A-fib: Patient has a known history of atrial fibrillation. No further bradycardia since 12/06/2024 but also no tachycardia Telemetry monitoring. Resume amiodarone 200 mg daily resume home apixaban Plan: I discussed CODE STATUS with patient 12/10/2024 and she wants full code. She states she is planning to get remarried again has a boyfriend PDMP PDMP Reviewed: Not Reviewed Attestations 2 Medical Necessity Statement*: Patient remains in the hospital awaiting placement in correction facility which depends on approval from her insurance. Attempting to clear infection foot post resection and antibiotics with intended 6-week course to end January 13 Coding Level of Care Code Acute Code for [facility] Fwd Diagnoses Bradycardic cardiac arrest R00.1; I46.2 Acute on chronic hypoxic respiratory failure J96.21 Acute on chronic systolic congestive heart failure I50.23 Heart failure type: systolic KRISTEN (acute kidney injury) N17.9 Wound dehiscence T81.30XA Osteomyelitis of great toe of left foot M86.9 Panlobular emphysema J43.1 COPD type: emphysema Emphysema type: panlobular Diabetes mellitus E11.9 Paroxysmal A-fib I48.0 Time Spent (min) 25
[2024-12-15] MEDS: iron sucrose 200 MG in sodium chloride 0.9% (100 ml) 100 ML 220 MG IV (17:26)
[2024-12-16] VITALS (9 sets, daily range): BP systolic 103–132; BP diastolic 46–69; PULSE 69–81; RESP 16–20; TEMP 36.6–36.9; O2SAT 93–99
[2024-12-16] MEDS: piperacillin-tazobactam 3.375 GM in sodium chloride 0.9% (plus) 50 ML IV ×2 (01:58→09:11)
[2024-12-16] MEDS: insulin glargine 100 units/1 mL 35 UNIT SUBCUT (06:46)
[2024-12-16] MEDS: ranolazine (12HR) 500 mg Tablet PO (09:10)
[2024-12-16] MEDS: HYDROcodone-acetaminophen 5-325 mg Tablet 1 TAB PO (13:02)
--- NOTE | 2024-12-16 13:54 | PM.DCS ---
Discharge Providers Date of Admission: 12/05/24 20:25 Date of Discharge: December 16, 2024 Attending Provider at Admission: Tara Munguia MD Attending Provider at Discharge: Christiano Richard MD Consults: Podiatry: Dr. Renee Cardiology: Dr. Velasquez ID: Dr. Munguia Primary Care Provider: Antonio Delgado MD Diagnoses at Discharge Discharge Diagnosis 1. Bradycardic cardiac arrest: 2. Acute on chronic hypoxic respiratory failure: 3. Acute on chronic systolic congestive heart failure: 4. KRISTEN (acute kidney injury): 5. Wound dehiscence: 6. Osteomyelitis of great toe of left foot: 7. Panlobular emphysema: 8. Diabetes mellitus: 9. Paroxysmal A-fib: Reason for Visit Reason for Visit: SOB Brief History: Per HPI: Sally Henderson is a 84 year old female with medical history significant for CHF and who had been admitted recently in October for a left great toe gangrenous toe with osteomyelitis. Patient was status post left great toe amputation and has exhibited poor wound healing since then. She was initially in a shelter but signed out AMA. She has been managing at home, states that she has been mostly using her wheelchair to get around. She presented to the emergency room today due to complaints of shortness of breath and increased work of breathing. Additionally she has noticed her wound to be getting worse at the surgical site. Bandages were removed today and maggots were encountered. Additionally there is a wound over her heel which appears to be concerning. She has been compliant with her Lasix dosing at home. Denies any current chest pain palpitations or syncope. Hospital Course Hospital Course Patient was admitted to the hospital for further evaluation and management with concerns for sepsis in setting of osteomyelitis. She was started on broad-spectrum IV antibiotics and podiatry was consulted. On admission she was also found to be in acute exacerbation of congestive heart failure for which she was started on IV diuresis. She underwent secondary closure of the surgical left foot wound along with incision and debridement below fascia of the left heel. Her hospitalization was complicated by her having bradycardic cardiac arrest on 12/06. She had 2 separate cycles of ACLS protocol driven CPR. She achieved ROSC. Patient did well post achieving ROSC and she eventually self extubated on 12/08. Post CPR she did require high doses of vasopressors which were weaned off. Given bradycardic cardiac arrest cardiology was consulted. On further evaluation and seen patient had an attempted high risk PCI at an outside tertiary center hospital a year ago which was unsuccessful. Patient declined repeat procedure since then. Post achieving ROSC patient denied any chest pain or difficulty in breathing hence as per cardiology no further interventions were done. Echocardiogram was done during hospitalization which showed EF of 45% with mild septal hypertrophy, akinesis of mid and basal inferior lateral wall with mild RV hypokinesia and severe pulmonary hypertension. Her blood cultures remain negative, OR cultures grew Pseudomonas, MRSA, Enterobacter. Antibiotics were tapered as per ID recommendations. Safe discharge plan were discussed in detail with the patient and she requested to be transition to SNF for further rehabitation. She has been discharged in IV vancomycin and Zosyn as per culture sensitivities for 6 more weeks with advised to follow-up with primary team in 1 week, cardiology team in 4 weeks, ID team as per set appointment. Last dose of antibiotics will be on 01/13. Weekly lab work to be followed up with ID team. Discharge on the day was delayed as patient was awaiting authorization from insurance before transition to SNF Physical Exam Narrative: General: No acute distress, AO x3 HEENT: PERRLA, pupils bilaterally equal and reactive, pallors not present Chest: Normal vesicular breath sounds, no added sounds, equal good air entry bilaterally CVS: S1-S2 regular, no murmurs, no tachycardia, no gallops, no rubs Abdomen: Soft, nontender, no organomegaly, bowel sounds present Neuro: No focal deficits, no facial deformity, AO x3, power 5/5 in all limbs Extremities: Noted wound dehiscence over surgical site over left foot at site of great toe amputation. Abundant necrotic material was encountered which was cleaned when the wound was redressed. Per nursing report there were maggots encountered in the wound. Additional wound noted over her left heel posteriorly. Urinary Catheter Management: Huff: Cath Placed During This Visit: yes Reason for Continuing Indwelling Catheter: Accurate Measurement of Urinary Output in Critically Ill Patients Urinary Catheter Date of Insertion: 12/05/24 Urinary Catheter Time of Insertion: 22:48 Discharge Data Studies Completed and Pending Completed Studies During Hospitalization Category Date Time Status CT chest abdomen pelvis [[place] [address]/28060 Cat Scan 12/06/24 20:39 Completed ] Stat CT foot LT wo con* [id number] Routine Cat Scan 12/06/24 01:02 Completed CXRP [XR chest 1V portable [id number]] Routine Exams 12/09/24 07:46 Completed CXRP [XR chest 1V portable [id number]] Routine Exams 12/09/24 09:51 Completed CXRP [XR chest 1V portable 70185] Stat Exams 12/06/24 23:38 Completed XR chest 1V portable [id number] QAM Exams 12/07/24 06:00 Completed XR chest 1V portable [id number] QAM Exams 12/08/24 06:00 Completed XR chest 1V portable [id number] QAM Exams 12/09/24 06:00 Completed XR chest 1V portable [id number] Routine Exams 12/06/24 21:08 Completed XR chest 1V portable [id number] Stat Exams 12/05/24 18:57 Completed XR foot LT min 3V* [id number] Routine Exams 12/06/24 06:28 Completed CV. echo complete* [id number] Routine Ultrasound 12/07/24 21:33 Completed Pending at discharge Category Date Time Status Complete Blood Count w/Auto AM LABS Lab 12/17/24 04:00 Ordered Comprehensive Metabolic Panel AM LABS Lab 12/17/24 04:00 Ordered Radiology Impressions Foot CT 12/06/24 01:02 IMPRESSION: 1. Extensive soft tissue edema thickening surrounding the LEFT calcaneus. No underlying destructive bone identified. Debridement was recently performed in this location. 2. Extensive soft tissue thickening involving the first metatarsal head with loss of the normal cortex. Likely osteomyelitis. Debridement has also been recently performed at this level. 3. Amputation first toe. 4. Extensive vascular calcifications. Foot X-Ray 12/06/24 06:28 Impression: 1. Amputation of left first toe. 2. No change in the remainder of the foot from previous left foot x-ray. Chest/Abdomen/Pelvis CT 12/06/24 20:39 IMPRESSION: 1. Consolidations are seen in the right upper lobe, right middle lobe, right lower lobe and left lower lobe. Finding could represent multifocal pneumonia or pulmonary edema. Clinical correlation is advised. 2. Small left-sided pleural effusion. 3. Acute left 3, 4, 5th, 6 and 7th anterior rib fractures are seen. No pneumothorax. 4. Cardiomegaly. 5. Coronary calcifications. 6. Mild calcified atherosclerotic changes are seen in the thoracic aorta. 7. Mild diffuse thoracic spine degenerative changes. 8. Additional findings as described. IMPRESSION: 1. Mild calcified atherosclerotic changes are seen throughout the abdominal aorta. 2. Multiple gallstones without evidence of cholecystistis. 3. Moderate lumbar spine degenerative changes. 4. Additional findings as described. Chest X-Ray 12/09/24 09:51 IMPRESSION: Right-sided PICC line tip is at cavoatrial junction. Microbiology 12/06/24 11:48 Other Source Anaerobic Culture - Final Tissierella praeacuta 12/06/24 11:33 Bone Gram Stain - Final 12/06/24 11:33 Bone Anaerobic Culture - Final 12/06/24 11:33 Bone Tissue Culture - Final Pseudomonas aeruginosa Providencia stuartii Methicillin Resis Staph Aureus 12/05/24 19:35 Blood Blood Culture - Final NO GROWTH AFTER 5 DAYS 12/05/24 19:33 Blood Blood Culture - Final NO GROWTH AFTER 5 DAYS 12/06/24 12:00 Sputum - Endotracheal Tube Aspirate Gram Stain - Final 12/06/24 12:00 Sputum - Endotracheal Tube Aspirate Sputum Culture - Final 12/06/24 11:48 Other Source Gram Stain - Final 12/06/24 11:48 Other Source Wound Culture - Final Enterobacter cloacae Providencia stuartii Methicillin Resis Staph Aureus Echocardiogram: CONCLUSIONS 1. Mild left ventricular systolic dysfunction with akinesis of the inferior and inferolateral parkinson, EF 45% 2. Mild right ventricular hypokinesis 3. Severe pulmonary hypertension, RVSP 70 mmHg 4. Aortic valve sclerosis Aleksey Velasquez MD (Electronically Signed) Final Date: 08 December 2024 15:17 Laboratory Results WBC 18.63 10^3/uL (3.29-11.43) H 12/15/24 01:22 RBC 4.01 10^6/uL (3.85-5.65) 12/15/24 01:22 Hgb 10.00 g/dL (11.27-16.99) L 12/15/24 01:22 Hct 33.4 % (36-47) L 12/15/24 01:22 MCV 83.3 fl (85-98) L 12/15/24 01:22 MCH 24.9 pg (27-33) L 12/15/24 01:22 MCHC 29.9 g/dL (30-55) L 12/15/24 01:22 RDW 19.6 % (12.1-15.1) H 12/15/24 01:22 Plt Count 251 10^3/cmm (157-399) 12/15/24 01:22 MPV 12.4 fL (7.4-10.4) H 12/15/24 01:22 Neut % (Auto) 77.3 % 12/15/24 01:22 Lymph % (Auto) 8.7 % 12/15/24 01:22 Campbell % (Auto) 7.5 % 12/15/24 01:22 Eos % (Auto) 3.4 % 12/15/24 01:22 Baso % (Auto) 0.2 % 12/15/24 01:22 Neut # (Auto) 14.41 10^3/uL (1.8-7.7) H 12/15/24 01:22 Lymph # (Auto) 1.6 10^3/uL (0.8-4.8) 12/15/24 01:22 Campbell # (Auto) 1.4 10^3/uL (0.2-0.9) H 12/15/24 01:22 Eos # (Auto) 0.6 10^3/uL (0.0-0.8) 12/15/24 01:22 Baso # (Auto) 0.0 10^3/uL (0.0-0.1) 12/15/24 01:22 Nucleated RBC % (auto) 0 % 12/15/24 01:22 Nucleated RBCs # 0.0 /100WBC 12/15/24 01:22 ESR 26 mm/hr (0-15) H 12/06/24 01:05 PT 17.00 SECONDS (12.1-14.9) H 12/06/24 23:19 INR 1.29 (0.8-1.2) H 12/06/24 23:19 APTT 54.5 SECONDS (23.9-36.7) H 12/11/24 07:11 Specimen Type Arterial 12/07/24 09:55 Sample Site Radial, left 12/07/24 09:55 ABG pH 7.49 (7.35-7.45) H 12/07/24 09:55 ABG pCO2 43.5 mmHg (35-45) 12/07/24 09:55 ABG pO2 76.0 mmHg (80.0-100.0) L 12/07/24 09:55 ABG PO2/FiO2 Ratio 95 12/07/24 09:55 ABG HCO3 33.5 mmol/L (22-26) H 12/07/24 09:55 ABG O2 Saturation 97.2 12/07/24 09:55 ABG Base Excess 9.2 mmol/L (-2.0-2.0) H 12/07/24 09:55 Tanner Test Pos 12/07/24 09:55 A-a O2 Gradient 57.3 mmHg (5-10) H 12/07/24 09:55 Hematocrit 34.5 % (37-47) L 12/07/24 09:55 Hgb O2 Saturation 95.8 % (95-100) 12/07/24 09:55 Carboxyhemoglobin 1.3 %THgb (0.4-20.1) 12/07/24 09:55 Methemoglobin 0.1 % (0.4-1.5) L 12/07/24 09:55 Total Hemoglobin 11.2 g/dL (12-16) L 12/07/24 09:55 Sodium 146.0 mmol/L (131-143) H 12/07/24 09:55 Potassium 3.6 mmol/L (3.5-5.0) 12/07/24 09:55 Glucose 178.0 mg/dL (70-115) H 12/07/24 09:55 Ionized Calcium 1.1 mmol/L (1.1-1.4) 12/07/24 09:55 O2 Delivery Device Vent 12/07/24 09:55 O2 Liters/Min 15.0 % 12/06/24 20:25 FiO2 80.0 % 12/07/24 09:55 Tidal Volume 0.40 12/07/24 09:55 PEEP 8.0 cmH20 12/07/24 09:55 [employer] ID Gd 12/07/24 09:55 Sodium 138 mmol/L (136-145) 12/15/24 01:22 Potassium 3.6 mmol/L (3.5-5.1) 12/15/24 01:22 Chloride 95 mmol/L (98-107) L 12/15/24 01:22 Carbon Dioxide 34 mmol/L (22-29) H 12/15/24 01:22 Anion Gap 12.6 (5-19) 12/15/24 01:22 BUN 22 mg/dL (8-23) 12/15/24 01:22 Creatinine 0.8 mg/dL (0.5-0.9) 12/15/24 01:22 GFR Calculation Not Reportable 12/15/24 01:22 Glucose 54 mg/dL (65-115) L 12/15/24 01:22 POC Glucose 227 mg/dL (70-110) H 12/16/24 10:41 Calculated Osmolality 287 mOsm/kg (285-295) 12/15/24 01:22 Lactic Acid 2.3 mmol/L (0.5-2.2) H 12/07/24 03:19 Lactic Acid (Sepsis) 2.4 mmol/L (0.5-2.2) H 12/07/24 06:25 Lactate 5.7 mmol/L (0.5-2.2) H* 12/06/24 20:24 Calcium 8.2 mg/dL (8.5-10.5) L 12/15/24 01:22 Phosphorus 3.2 mg/dL (2.5-4.5) 12/15/24 01:22 Magnesium 2.2 mg/dL (1.7-2.3) 12/15/24 01:22 Iron 31 ug/dL (37-145) L 12/15/24 01:22 TIBC 219 mcg/dl 12/15/24 01:22 % Saturation 14.1 % (20-50) L 12/15/24 01:22 Unsat Iron Binding 188 ug/dL (112-347) 12/15/24 01:22 Total Bilirubin 0.4 mg/dL (0.15-1.2) 12/15/24 01:22 AST 13 U/L (0-32) 12/15/24 01:22 ALT 14 U/L (0-33) 12/15/24 01:22 Alkaline Phosphatase 73 U/L (35-105) 12/15/24 01:22 Troponin T Baseline 77 ng/L (0-10) H 12/06/24 20:24 Troponin T 120 Minute 80.69 ng/L (0-10) H 12/06/24 23:19 Delta Troponin T 3.69 ABS# (0-10) 12/06/24 23:19 Troponin T Hi Sens 6Hr 91.17 ng/L (0-10) H 12/07/24 03:19 Troponin T Hi Sens 6Hr Delta 14.17 ng/L (0-12) H* 12/07/24 03:19 C-Reactive Protein 40.1 mg/L (0.0-4.9) H 12/15/24 01:22 C-React Prot High Sens 3.450 mg/dL (0.0-0.3) H 12/14/24 18:00 NT-Pro-B Natriuret Pep 30822 pg/mL (0-450) H 12/05/24 19:06 Total Protein 5.2 g/dL (6.6-8.7) L 12/15/24 01:22 Albumin 3.0 g/dL (3.5-5.2) L 12/15/24 01:22 Globulin 2.2 g/dL (1.3-4.6) 12/15/24 01:22 Nasal MRSA (PCR) Cancelled 12/06/24 15:27 Vancomycin Trough 18.5 ug/mL (10-15) H 12/13/24 15:06 Vitals Last Vital Signs Temp 98.0 F 12/16/24 11:05 Pulse 78 12/16/24 13:50 Resp 17 12/16/24 13:36 BP 124/64 12/16/24 11:05 Pulse Ox 94 12/16/24 13:36 O2 Del Method Nasal Cannula 12/16/24 13:36 O2 Flow Rate 2 12/16/24 13:36 FiO2 40 12/08/24 03:00 Discharge Plan Discharge Patient Disposition: Xfer SNF Condition: Stable Prescriptions: New acetaminophen 325 mg Tablet 650 mg PO Q6H PRN (Reason: Mild/Mod Pain Or Temp >/= 101) Qty: 30 0RF furosemide 40 mg Tablet 40 mg PO DAILY@0800 Qty: 30 0RF ipratropium-albuterol 0.5 mg-3 mg(2.5 mg base)/3 mL Solution For Nebulization 3 ml inhalation Q6H.RESP Qty: 90 0RF hydrocodone-acetaminophen 5-325 mg Tablet 1 tab PO Q6H PRN (Reason: Moderate Pain) Qty: 30 0RF midodrine 5 mg Tablet 5 mg PO TID Qty: 90 0RF budesonide 0.5 mg/2 mL Suspension For Nebulization 0.5 mg inhalation BID.RESPIRATORY Qty: 60 0RF nystatin [Nystop] 100,000 unit/gram Powder 1 applic topical BID Qty: 60 0RF Lanolin (HPA) 100 % Cream 1 applic topical PRN PRN (Reason: Dryness) Qty: 40 0RF potassium chloride [Klor-Con M20] 20 mEq Tablet,Er Particles/Crystals 20 meq PO DAILY Qty: 30 0RF ranolazine 500 mg Tablet Extended Release 12 Hr 500 mg PO BID Qty: 60 0RF vancomycin-diluent combo no.1 1.25 gram/250 mL Piggyback 1,250 mg continuous IV infusion Q24H Qty: 1500 0RF Zosyn in dextrose (iso-osm) 4.5 gram/100 mL piggyback 4.5 g IV Q8H Entresto 24-26 mg tablet 0.5 tab PO BID Qty: 30 0RF dapagliflozin propanediol [Farxiga] 10 mg tablet 10 mg PO DAILY Qty: 30 0RF Continued (DME) CAM walker See Rx Instructions .Route .MEDSUPPLY Qty: 1 0RF Rx Instructions: As directed clopidogrel 75 mg tablet 75 mg PO BEDTIME Qty: 90 3RF Eliquis 5 mg Tablet 2.5 mg PO BID@0900,2100 30 Days Qty: 30 0RF sucralfate 1 gram tablet 1 g PO BID omeprazole 20 mg capsule,delayed release(DR/EC) 20 mg PO BID ondansetron 4 mg tablet,disintegrating 4 mg PO Q8H PRN (Reason: Nausea And Vomiting) insulin aspart U-100 [Novolog FlexPen U-100 Insulin] 100 unit/mL (3 mL) insulin pen See Rx Instructions .ROUTE .COMPLEX Rx Instructions: INJECT UNDER SKIN BEFORE MEALS AND AT BEDTIME PER SLIDING SCALE, 201-250=4 UNITS, 251-300=6 UNITS, 301-350=8 UNITS, 351-400=10 UNITS, >400=12 UNITS atorvastatin 40 mg tablet 40 mg PO QPM tramadol 50 mg tablet 50 mg PO Q6H PRN (Reason: Pain) (DME) nebulizer and compressor [[id number] Nebulizer] Device See Rx Instructions .Route Qty: 1 0RF Rx Instructions: As directed Changed insulin degludec [Tresiba FlexTouch U-200] 200 unit/mL (3 mL) insulin pen 35 unit SUBCUT DAILY Qty: 9 0RF amiodarone 200 mg tablet 100 mg PO DAILY Qty: 30 0RF Discontinued doxycycline hyclate 100 mg capsule 100 mg PO BID 10 Days Qty: 20 0RF Entresto 24-26 mg tablet 1 tab PO BID Qty: 60 1RF nitroglycerin 0.4 mg tablet, sublingual 0.4 mg buccal PRN PRN (Reason: Chest Pain) furosemide 40 mg tablet 40 mg PO BID@0800,1400 30 Days Qty: 60 0RF Triple Antibiotic 3.5mg-400 unit- 5,000 unit/gram Ointment 1 applic topical BID Qty: 30 0RF aspirin 81 mg Tablet,Delayed Release (Dr/Ec) 81 mg PO DAILY Qty: 30 0RF albuterol sulfate 2.5 mg /3 mL (0.083 %) solution for nebulization 2.5 mg continuous nebulization TID PRN (Reason: Shortness Of Breath) potassium chloride 10 mEq tablet extended release 10 meq PO DAILY ranolazine 1,000 mg tablet extended release 12 hr 1,000 mg PO BID fluconazole 100 mg tablet See Rx Instructions .ROUTE .COMPLEX Rx Instructions: TAKE ONE TABLET BY MOUTH EVERY DAY FOR 14 DAYS - HOLD STATIN (ATORVASTATIN) FOR THREE WEEKS Referrals: Infectious Disease Group [facility] [Provider Group, Infectious Disease] - 01/21/25 Referral Note: f/u for [facility] [Outside] Syl Castanon FNP [Nurse Practitioner, Cardiology] - 2 weeks Referral Note: We have notified your physician's clinic of the need for a follow-up appointment to be scheduled. If you have not heard from them within the next 2 business days, please call them directly. Antonio Delgado MD [Primary Care Provider, Family Practice] Patient Instructions: Acute Wound Care (DC), Opioid Safety, Post Anesthesia Care, Patient Portal & Ivanna Instructions Activity Restrictions/Additional Instructions: Dysphagia level 7 diet Restrict fluid intake to less than 1500 cc, salt intake to less than 2 g daily. Advised to check his weight daily at home. Is advised that weight today would be the dry weight and if body weight increases by around 5 pounds, patient is to take an extra dose of Lasix daily till body weight comes down to weight today. If not able to come down to dry body weight in 1 week, then is to call cardiology office for further recommendations. Patient was counseled in detail to take medications regularly as prescribed. Dose of amiodarone has been changed to half a dose daily. Take Farxiga 10 mg oral daily. Follow-up with dietary team on set appointment. Follow-up with cardiology team in 2 weeks and with ID clinic in 1 month on 01/21. Weekly CBC, LFTs and CRP to be followed up with ID team. Discharge Attestations Time Spent in Discharge Care*: greater than 30 min Specific Discharge Activities: educating patient, educating and/or supporting family/caregiver, discussing with pcp/other providers, discussing with case preparer and liner/social workers/dc planners, documenting/other paperwork and evaluating patient/reviewing data Status at Discharge: Cognitive status at discharge: cognitively intact, Behavioral status at discharge: cooperative, Functional status at discharge: uses cane/walker, Overall status at discharge: patient is progressing back to baseline Quality Metrics Clinical Quality Measures [ No reported AMI, CVA or VTE this stay] Coding Level of Care Code 49915 Total time (in minutes) for Discharge: 65 Diagnoses Bradycardic cardiac arrest R00.1; I46.2 Acute on chronic hypoxic respiratory failure J96.21 Acute on chronic systolic congestive heart failure I50.23 Heart failure type: systolic KRISTEN (acute kidney injury) N17.9 Wound dehiscence T81.30XA Osteomyelitis of great toe of left foot M86.9 Panlobular emphysema J43.1 COPD type: emphysema Emphysema type: panlobular Diabetes mellitus E11.9 Paroxysmal A-fib I48.0
== END 2024-12-16 17:10 | disposition skilled nursing facility (03) | DRG 463 ==
LOC: ER 20:59 → ER IP 21:19 → CSU 21:48 → ICU 12-06 21:24 → MEDSURG 12-12 10:27
PROVIDERS: Internal Medicine; Podiatrist Foot & Ankle Surgery; Admitting Provider Student in an Organized Health Care Education/Training Program; Emergency Provider Emergency Medicine; PCP Family Medicine; Visit Provider Student in an Organized Health Care Education/Training Program
PROC: 0QBP0ZZ Excision of Left Metatarsal, Open Approach (ICD-10-PCS; principal; 2024-12-06 11:30)
DX: T87.81 Dehiscence of amputation stump (principal); A41.9 Sepsis, unspecified organism; I46.2 Cardiac arrest due to underlying cardiac condition; J96.21 Acute and chronic respiratory failure with hypoxia; R65.21 Severe sepsis with septic shock; J96.22 Acute and chronic respiratory failure with hypercapnia; I50.43 Acute on chronic combined systolic (congestive) and diastolic (congestive) heart failure; J69.0 Pneumonitis due to inhalation of food and vomit; L97.423 Non-pressure chronic ulcer of left heel and midfoot with necrosis of muscle; I13.0 Hypertensive heart and chronic kidney disease with heart failure and stage 1 through stage 4 chronic kidney disease, or unspecified chronic kidney disease; M86.9 Osteomyelitis, unspecified; N17.9 Acute kidney failure, unspecified; E11.52 Type 2 diabetes mellitus with diabetic peripheral angiopathy with gangrene; M00.9 Pyogenic arthritis, unspecified; J44.1 Chronic obstructive pulmonary disease with (acute) exacerbation; T87.44 Infection of amputation stump, left lower extremity; E11.69 Type 2 diabetes mellitus with other specified complication; J43.1 Panlobular emphysema; I48.0 Paroxysmal atrial fibrillation; E78.5 Hyperlipidemia, unspecified; E66.9 Obesity, unspecified; I25.10 Atherosclerotic heart disease of native coronary artery without angina pectoris; B87.9 Myiasis, unspecified; E11.621 Type 2 diabetes mellitus with foot ulcer; I27.20 Pulmonary hypertension, unspecified; E11.22 Type 2 diabetes mellitus with diabetic chronic kidney disease; D63.1 Anemia in chronic kidney disease; E11.65 Type 2 diabetes mellitus with hyperglycemia; N18.9 Chronic kidney disease, unspecified; Z99.81 Dependence on supplemental oxygen; Z79.899 Other long term (current) drug therapy; Z79.4 Long term (current) use of insulin; Z79.02 Long term (current) use of antithrombotics/antiplatelets; Z79.82 Long term (current) use of aspirin; I25.2 Old myocardial infarction; Z90.710 Acquired absence of both cervix and uterus; Z95.1 Presence of aortocoronary bypass graft; Z79.01 Long term (current) use of anticoagulants; Z87.891 Personal history of nicotine dependence; Z89.412 Acquired absence of left great toe; Z91.199 Patient's noncompliance with other medical treatment and regimen due to unspecified reason; Z68.32 Body mass index [BMI] 32.0-32.9, adult
CPT/HCPCS: 36415; 36416; 36573; 36592; 36600; 51702; 71045; 71250; 73630; 73700; 74176; 80048; 80051; 80053; 80202; 82330; 82805; 82962; 83540; 83550; 83605; 83735; 83880; 84100; 84484; 85025; 85049; 85610; 85651; 85730; 86140; 86141; 87040; 87070; 87075; 87077; 87176; 87186; 87205; 92507; 92526; 92610; 93005; 93306; 94002; 94003; 94640; 94669; 94799; 96365; 96372; 96375; 97110; 97163; 97165; 97530; 97535; 99285; C1751; J0612; J1100; J1265; J1644; J1756; J1815; J1938; J2270; J2405; J2470; J2543; J2598; J2704; J2919; J3010; J3373; J3480; J3490; J7030; J7040; J7613; J7626; J9999

== ENCOUNTER → 2024-12-23 14:13 | Outpatient (BNVA) | payer MEDICARE, SELFPAY | PROVIDERS: PCP Family Medicine; Visit Provider Podiatrist Foot & Ankle Surgery | DX: E11.621 Type 2 diabetes mellitus with foot ulcer (principal); L97.423 Non-pressure chronic ulcer of left heel and midfoot with necrosis of muscle; Z79.4 Long term (current) use of insulin; N18.31 Chronic kidney disease, stage 3a; Z98.890 Other specified postprocedural states | CPT/HCPCS: 99213 ==

== ENCOUNTER → 2025-01-06 10:58 | Outpatient (BNVA) | payer MEDICARE, SELFPAY | PROVIDERS: PCP Family Medicine; Visit Provider Podiatrist Foot & Ankle Surgery | DX: Z79.4 Long term (current) use of insulin (principal); N18.31 Chronic kidney disease, stage 3a; Z98.890 Other specified postprocedural states; L97.423 Non-pressure chronic ulcer of left heel and midfoot with necrosis of muscle; T81.31XA Disruption of external operation (surgical) wound, not elsewhere classified, initial encounter; E11.69 Type 2 diabetes mellitus with other specified complication; E11.621 Type 2 diabetes mellitus with foot ulcer; Y83.8 Other surgical procedures as the cause of abnormal reaction of the patient, or of later complication, without mention of misadventure at the time of the procedure | CPT/HCPCS: 99214 ==

== ENCOUNTER → 2025-01-14 11:32 | Outpatient (BNVA) | payer MEDICARE, SELFPAY | PROVIDERS: PCP Family Medicine; Visit Provider Podiatrist Foot & Ankle Surgery | DX: T81.31XA Disruption of external operation (surgical) wound, not elsewhere classified, initial encounter (principal); Y83.8 Other surgical procedures as the cause of abnormal reaction of the patient, or of later complication, without mention of misadventure at the time of the procedure; Z79.4 Long term (current) use of insulin; N18.31 Chronic kidney disease, stage 3a; L97.423 Non-pressure chronic ulcer of left heel and midfoot with necrosis of muscle; L03.116 Cellulitis of left lower limb; E11.69 Type 2 diabetes mellitus with other specified complication; E11.621 Type 2 diabetes mellitus with foot ulcer; E11.22 Type 2 diabetes mellitus with diabetic chronic kidney disease | CPT/HCPCS: 99214 ==

== ENCOUNTER → 2025-01-21 13:31 | Outpatient (BNVA) | payer MEDICARE, SELFPAY | PROVIDERS: PCP Family Medicine; Visit Provider Podiatrist Foot & Ankle Surgery | DX: E11.621 Type 2 diabetes mellitus with foot ulcer (principal); L97.423 Non-pressure chronic ulcer of left heel and midfoot with necrosis of muscle; L97.523 Non-pressure chronic ulcer of other part of left foot with necrosis of muscle; Z79.4 Long term (current) use of insulin; N18.31 Chronic kidney disease, stage 3a; L03.116 Cellulitis of left lower limb | CPT/HCPCS: 11043; 99214 ==

== ENCOUNTER 2025-02-01 19:24 | Emergency (ER) | payer MEDICARE, SELFPAY ==
[2025-02-01 19:30] VITALS: BP 120/64; PULSE 70; RESP 18; TEMP 36.8; O2SAT 95; BMI 40.4
--- OUTSIDE RECORDS SUMMARY | 2025-02-01 19:33 | XMS_ITS | Continuity of Care Document ---
Author Organization [facility] ([facility]) Address [address] [place] [address] Insurance Providers Payer Plan Claims Address Claims Phone Policy Number Group Number Relation Employer Guarantor Name Guarantor Guarantor Address Guarantor Phone [employer] M[employer] [address] [address], [place] [address] tel:[phone] [id number] Self Sally Henderson [address] [place] [address] [employer] E [address] [address], [place] [address] tel:[phone] Self Sally Henderson [address] [place], [place] [address] [employer] ARE - [employer] - VBC [address] [address], [place] [address] tel:[phone] [id number] Self Sally Henderson [address] [place], [place] [address] Problems Condition ICD9 code ICD10 code SNOMED code Start Date End Date S tatus Encounter for orthopedic aftercare following surgical amputation Z47.81 11/06/2024 Activ e 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 11/06/2024 Active Muscle weakness (generalized) M62.81 11/07/2024 Active Difficulty in walking, not elsewhere classified R26.2 11/07/2024 Active Osteomyelitis, unspecified M86.9 11/06/2024 Active Bacteremia R78.81 11/06/2024 Active Unspecified staphylococcus as the cause of diseases classified elsewhere B95.8 11/06/2024 Acti ve Cellulitis of left toe L03.032 11/06/2024 Active Patient's noncompliance with other medical treatment and regimen due to unspecified reason Z91.199 11/06/2024 Act sean Hypertensive heart and chronic kidney disease with heart failure and stage 1 through stage 4 chronic kidney disease, or unspecified chronic kidney disease I13.0 11/06/2024 Active Chronic systolic (congestive) heart failure I50.22 11/13/2024 Active Chronic atrial fibrillation, unspecified I48.20 11/13/2024 Active terminologist (current) use of anticoagulants Z79.01 11/06/2024 Active Atherosclerotic heart disease of [place] coronary artery with other forms of angina pectoris I25.118 11/06/2024 Active 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 11/06/2024 Active terminologist (current) use of antithrombotics/antiplate lets Z79.02 11/06/2024 Active terminologist (current) use of aspirin Z79.82 11/06/2024 Active Chronic obstructive pulmonary disease, unspecified J44.9 11/06/2024 Active Panlobular emphysema J43.1 11/06/2024 Active Chronic respiratory failure with hypoxia J96.11 11/06/2024 Acti ve Respiratory failure, unspecified with hypercapnia J96.92 11/06/2024 Active snf (current) use of inhaled steroids Z79.51 11/06/2024 Activ e Type 2 diabetes mellitus with foot ulcer E11.621 11/06/2024 Active Type 2 diabetes mellitus with diabetic chronic kidney disease E11.22 11/06/2024 Active terminologist (current) use of insulin Z79.4 11/06/2024 Active Chronic kidney disease, stage 3a N18.31 11/06/2024 Active Hyperlipidemia, unspecified E78.5 11/06/2024 Active Personal history of nicotine dependence Z87.891 11/06/2024 Activ e Results Test Result Date/Time Value / Unit Interp. Refere nce Range Blood chemistry[[id number]] Glucose [Mass/volume] in Serum or Plasma [2345-7] 11/21/2024 11:56 AM 203 mg/dL N Blood chemistry[[id number]] Glucose [Mass/volume] in Serum or Plasma [2345-7] 11/20/2024 01:56 PM 96 mg/dL N Blood chemistry[[id number]] Glucose [Mass/volume] in Serum or Plasma [2345-7] 11/20/2024 09:42 AM 173 mg/dL N Blood chemistry[[id number]] Glucose [Mass/volume] in Serum or Plasma [2345-7] 11/19/2024 05:17 PM 231 mg/dL N Blood chemistry[[id number]] Glucose [Mass/volume] in Serum or Plasma [2345-7] 11/19/2024 12:29 PM 104 mg/dL N Blood chemistry[[id number]] Glucose [Mass/volume] in Serum or Plasma [2345-7] 11/19/2024 11:41 AM 216 mg/dL N Blood chemistry[[id number]] Glucose [Mass/volume] in Serum or Plasma [2345-7] 11/19/2024 08:41 AM 213 mg/dL N Blood chemistry[[id number]] Glucose [Mass/volume] in Serum or Plasma [2345-7] 11/18/2024 04:44 PM 382 mg/dL N Blood chemistry[[id number]] Glucose [Mass/volume] in Serum or Plasma [2345-7] 11/18/2024 02:20 PM 288 mg/dL N Blood chemistry[[id number]] Glucose [Mass/volume] in Serum or Plasma [2345-7] 11/18/2024 10:29 AM 244 mg/dL N Blood chemistry[[id number]] Glucose [Mass/volume] in Serum or Plasma [2345-7] 11/18/2024 09:46 AM 394 mg/dL N Blood chemistry[[id number]] Glucose [Mass/volume] in Serum or Plasma [2345-7] 11/17/2024 05:33 PM 296 mg/dL N Blood chemistry[[id number]] Glucose [Mass/volume] in Serum or Plasma [2345-7] 11/17/2024 12:06 PM 401 mg/dL N Blood chemistry[[id number]] Glucose [Mass/volume] in Serum or Plasma [2345-7] 11/17/2024 10:02 AM 364 mg/dL N Blood chemistry[[id number]] Glucose [Mass/volume] in Serum or Plasma [2345-7] 11/16/2024 05:09 PM 330 mg/dL N Blood chemistry[[id number]] Glucose [Mass/volume] in Serum or Plasma [2345-7] 11/16/2024 03:17 PM 145 mg/dL N Blood chemistry[[id number]] Glucose [Mass/volume] in Serum or Plasma [2345-7] 11/16/2024 02:53 PM 181 mg/dL N Blood chemistry[[id number]] Glucose [Mass/volume] in Serum or Plasma [2345-7] 11/16/2024 10:25 AM 219 mg/dL N Blood chemistry[[id number]] Glucose [Mass/volume] in Serum or Plasma [2345-7] 11/15/2024 04:45 PM 226 mg/dL N Blood chemistry[[id number]] Glucose [Mass/volume] in Serum or Plasma [2345-7] 11/15/2024 10:35 AM 180 mg/dL N Blood chemistry[[id number]] Glucose [Mass/volume] in Serum or Plasma [2345-7] 11/15/2024 10:10 AM 67 mg/dL N Blood chemistry[[id number]] Glucose [Mass/volume] in Serum or Plasma [2345-7] 11/15/2024 06:04 AM 256 mg/dL N Blood chemistry[[id number]] Glucose [Mass/volume] in Serum or Plasma [2345-7] 11/14/2024 04:32 PM 122 mg/dL N Blood chemistry[[id number]] Glucose [Mass/volume] in Serum or Plasma [2345-7] 11/14/2024 11:49 AM 152 mg/dL N Blood chemistry[[id number]] Glucose [Mass/volume] in Serum or Plasma [2345-7] 11/14/2024 10:20 AM 134 mg/dL N Blood chemistry[[id number]] Glucose [Mass/volume] in Serum or Plasma [2345-7] 11/14/2024 10:15 AM 108 mg/dL N Blood chemistry[[id number]] Glucose [Mass/volume] in Serum or Plasma [2345-7] 11/13/2024 04:32 PM 109 mg/dL N Blood chemistry[[id number]] Glucose [Mass/volume] in Serum or Plasma [2345-7] 11/13/2024 12:09 PM 88 mg/dL N Blood chemistry[[id number]] Glucose [Mass/volume] in Serum or Plasma [2345-7] 11/13/2024 11:37 AM 247 mg/dL N Blood chemistry[[id number]] Glucose [Mass/volume] in Serum or Plasma [2345-7] 11/13/2024 09:23 AM 111 mg/dL N Blood chemistry[[id number]] Glucose [Mass/volume] in Serum or Plasma [2345-7] 11/12/2024 04:30 PM 235 mg/dL N Blood chemistry[[id number]] Glucose [Mass/volume] in Serum or Plasma [2345-7] 11/12/2024 12:05 PM 298 mg/dL N Blood chemistry[[id number]] Glucose [Mass/volume] in Serum or Plasma [2345-7] 11/12/2024 10:04 AM 128 mg/dL N Blood chemistry[[id number]] Glucose [Mass/volume] in Serum or Plasma [2345-7] 11/12/2024 09:00 AM 322 mg/dL N Blood chemistry[[id number]] Glucose [Mass/volume] in Serum or Plasma [2345-7] 11/11/2024 05:00 PM 170 mg/dL N Blood chemistry[[id number]] Glucose [Mass/volume] in Serum or Plasma [2345-7] 11/11/2024 11:40 AM 260 mg/dL N Blood chemistry[[id number]] Glucose [Mass/volume] in Serum or Plasma [2345-7] 11/11/2024 10:07 AM 167 mg/dL N Blood chemistry[[id number]] Glucose [Mass/volume] in Serum or Plasma [2345-7] 11/11/2024 09:35 AM 334 mg/dL N Blood chemistry[[id number]] Glucose [Mass/volume] in Serum or Plasma [2345-7] 11/10/2024 05:07 PM 241 mg/dL N Blood chemistry[[id number]] Glucose [Mass/volume] in Serum or Plasma [2345-7] 11/10/2024 10:22 AM 219 mg/dL N Blood chemistry[[id number]] Glucose [Mass/volume] in Serum or Plasma [2345-7] 11/10/2024 10:06 AM 255 mg/dL N Blood chemistry[[id number]] Glucose [Mass/volume] in Serum or Plasma [2345-7] 11/09/2024 10:57 AM 364 mg/dL N Blood chemistry[[id number]] Glucose [Mass/volume] in Serum or Plasma [2345-7] 11/09/2024 10:21 AM 235 mg/dL N Blood chemistry[[id number]] Glucose [Mass/volume] in Serum or Plasma [2345-7] 11/09/2024 06:51 AM 455 mg/dL N Blood chemistry[[id number]] Glucose [Mass/volume] in Serum or Plasma [2345-7] 11/08/2024 05:13 PM 215 mg/dL N Blood chemistry[[id number]] Glucose [Mass/volume] in Serum or Plasma [2345-7] 11/08/2024 10:38 AM 271 mg/dL N Blood chemistry[[id number]] Glucose [Mass/volume] in Serum or Plasma [2345-7] 11/08/2024 10:04 AM 207 mg/dL N Blood chemistry[[id number]] Glucose [Mass/volume] in Serum or Plasma [2345-7] 11/07/2024 05:04 PM 269 mg/dL N Blood chemistry[[id number]] Glucose [Mass/volume] in Serum or Plasma [2345-7] 11/07/2024 11:41 AM 216 mg/dL N Blood chemistry[[id number]] Glucose [Mass/volume] in Serum or Plasma [2345-7] 11/07/2024 10:18 AM 190 mg/dL N Blood chemistry[[id number]] Glucose [Mass/volume] in Serum or Plasma [2345-7] 11/07/2024 08:47 AM 271 mg/dL N Blood chemistry[[id number]] Glucose [Mass/volume] in Serum or Plasma [2345-7] 11/06/2024 12:14 PM 367 mg/dL N Blood chemistry[[id number]] Glucose [Mass/volume] in Serum or Plasma [2345-7] 11/06/2024 10:42 AM 225 mg/dL N Allergies, adverse reactions, alerts No known allergies and adverse reactions Immunizations Vaccine Route Date Status COVID-19 Vaccine Unassigned Route of Administration Refused Medications Medication Instructions Route Dosage Frequency Start Date Stop Date Indications Status albuterol sulfate 2.5 mg /3 mL (0.083 %) solution for nebulization (albuterol sulfate) 1 neb, inhalation, Three Times A Day - PRN, for sob or wheezing inhalation 1.0 8.0 h 11/24 Active amiodarone 200 mg tablet (amiodarone) 1 tab, oral, Once A Day oral 1.0 1.0 d 11/24 Active aspirin 81 mg tablet,delayed release (DR/EC) (aspirin) 1 tab, oral, Once A Day oral 1.0 1.0 d 11/24 Active atorvastatin 40 mg tablet (atorvastatin) 1 tab, oral, At Bedtime oral 1.0 11/24 Active ciprofloxacin HCl 500 mg tablet (ciprofloxacin HCl) 1 tab, oral, Twice A Day, for 10 days oral 1.0 12.0 h 11/21 Active clopidogrel 75 mg tablet (clopidogrel) 1 tab, oral, At Bedtime oral 1.0 11/24 Active Dulcolax (bisacodyl) (bisacodyl) 10 mg suppository (Dulcolax (bisacodyl) (bisacodyl)) 1 suppository, rectal, Once A Day - PRN, Give rectally if can't take p/o, if no [place] [facility] [place] 1.0 1.0 d 11/24 Active Eliquis (apixaban) 2.5 mg tablet (Eliquis (apixaban)) 1 tab, oral, Twice A Day oral 1.0 12.0 h 11/24 Active Entresto (sacubitril-va lsartan) 24-26 mg tablet (Entresto (sacubitril-va lsartan)) 1 tab, oral, Twice A Day oral 1.0 12.0 h 11/24 Active fluticasone propion-salmet nona 100-50 mcg/dose blister with device (fluticasone propion-salmet noan) 1 inhalation, inhalation, Twice A Day, rinse mouth with water and spit after use, TI for Symbicort inhalation 1.0 12.0 h 11/24 Active furosemide 40 mg tablet (furosemide) 1 tab, oral, Twice A Day, 7am 4pm oral 1.0 12.0 h 11/24 Active insulin aspart U-100 100 unit/mL (3 mL) insulin pen (insulin aspart U-100) Per Sliding Scale, subcutaneous, Before Meals and At Bedtime, If Blood Sugar is less than 60, call MD.If Blood Sugar is 201 to 250, give 2 Units.If Blood Sugar is 251 to 300, give 4 Units.If Blood Sugar is 301 to 350, give 6 Units.If Blood Sugar is 351 to 400, give 8 Units.If Blood Sugar is greater than 400, [facility]. [facility] 1.0 11/13 Active insulin aspart U-100 100 unit/mL (3 mL) insulin pen (insulin aspart U-100) Per Sliding Scale, subcutaneous, Before Meals and At Bedtime, If Blood Sugar is less than 60, call MD.If Blood Sugar is 201 to 250, give 4 Units.If Blood Sugar is 251 to 300, give 6 Units.If Blood Sugar is 301 to 350, give 8 Units.If Blood Sugar is 351 to 400, give 10 Units.If Blood Sugar is greater than 400, give [address] [facility] 1.0 11/24 Active insulin degludec 100 unit/mL (3 mL) insulin pen (insulin degludec) 27 units, subcutaneous, Once A Day [facility] 1.0 1.0 d 11/24 Active linezolid 600 mg tablet (linezolid) 1 tab, oral, Twice A Day, for 10 days oral 1.0 12.0 h 11/21 Active nitroglycerin 0.4 mg tablet, sublingual (nitroglycerin ) 1 tab, sublingual, Three Times A Day - PRN, every 5 minutes x 3 for chest pain, not to exceed 3 doses in 15 minutes, if pain persists, seek medical attention sublingual 1.0 8.0 h 11/24 Active nystatin-triam cinolone 100,000-0.1 unit/g-% cream (nystatin-tria mcinolone) apply to buttock, topical, Every Shift, Buttock and upper thigh: Cleanse with NS and gauze, apply cream all over red areas q shift topical 1.0 8.0 h 11/24 Active omeprazole 20 mg capsule,delaye d release(DR/EC) (omeprazole) 1 cap, oral, Twice A Day, TI for pantoprazole oral 1.0 12.0 h 11/24 Active ondansetron 4 mg tablet,disinte grating (ondansetron) 1 tab, oral, Every 8 Hours - PRN, clinical indication: nausea oral 1.0 8.0 h 11/24 Active potassium chloride 10 mEq tablet,ER particles/isa tals (potassium chloride) 1 tab, oral, Once A Day oral 1.0 1.0 d 11/24 Active ranolazine 1,000 mg tablet extended release 12 hr (ranolazine) 1 tab, oral, Twice A Day oral 1.0 12.0 h 11/24 Active sucralfate 1 gram tablet (sucralfate) 1 tab, oral, Twice A Day, TI for sucrlafate suspension oral 1.0 12.0 h 11/24 Active tramadol 50 mg tablet (tramadol) 1 tab, oral, Every 6 Hours - PRN, for pain; exempt R52 oral 1.0 6.0 h 11/24 Active Triad Wound Dressing (wound dressings) - paste (Triad Wound Dressing (wound dressings)) as irected, topical, Every Shift, Buttock: Cleanse with baby oil and gauze then apply triad and palak topical 1.0 8.0 h 11/15 Active Triple Antibiotic (neomycin-baci tracnzn-polymy xnb) 3.5mg-400 unit- 5,000 unit/gram ointment (Triple Antibiotic (neomycin-baci tracnzn-polymy xnb)) 1 yanet, topical, Twice A Day, apply to affected area topical 1.0 12.0 h 11/13 Active Tubersol (tuberculin ppd) 5 tub. unit /0.1 mL solution (Tubersol (tuberculin ppd)) 0.1ml, intradermal, Once - One Time, Administer the morning after admission intradermal 1.0 11/21 Active Tubersol (tuberculin ppd) 5 tub. unit /0.1 mL solution (Tubersol (tuberculin ppd)) 0.1ml, intradermal, Once - One Time, Administer on the day shift intradermal 1.0 11/21 Active Tylenol (acetaminophen ) 325 mg tablet (Tylenol (acetaminophen )) 2 tabs/650mg, oral, Every 6 Hours - PRN, as needed for PRN pain/increase d tempMay give rectally if necessary oral 1.0 6.0 h 11/24 Active valacyclovir 1 gram tablet (valacyclovir) 1 tab, oral, Twice A Day, for 10 days oral 1.0 12.0 h 11/21 Active Vital Signs Date Vital Result Comment 11/21/2024 04:03 AM Oxygen Saturation (56904-1) 93 % 11/20/2024 09:29 PM Temperature (8310-5) 96.4 [degF] Oxygen Saturation (76221-8) 95 % Respiratory Rate (9279-1) 15 /min Heart Rate (8867-4) 69 /min Blood Pressure Systolic (8480-6) 134 mm[Hg] Blood Pressure Diastolic (8462-4) 63 mm[Hg] 11/20/2024 11:30 AM Temperature (8310-5) 96.1 [degF] Oxygen Saturation (42021-8) 97 % Respiratory Rate (9279-1) 17 /min Heart Rate (8867-4) 67 /min Blood Pressure Systolic (8480-6) 121 mm[Hg] Blood Pressure Diastolic (8462-4) 54 mm[Hg] 11/19/2024 08:21 PM Oxygen Saturation (41121-7) 90 % 11/19/2024 08:20 PM Temperature (8310-5) 97.6 [degF] Respiratory Rate (9279-1) 14 /min Heart Rate (8867-4) 74 /min Blood Pressure Systolic (8480-6) 135 mm[Hg] Blood Pressure Diastolic (8462-4) 85 mm[Hg] 11/19/2024 10:00 AM Temperature (8310-5) 98.5 [degF] Oxygen Saturation (07182-2) 91 % Respiratory Rate (9279-1) 18 /min Heart Rate (8867-4) 66 /min Blood Pressure Systolic (8480-6) 127 mm[Hg] Blood Pressure Diastolic (8462-4) 68 mm[Hg] 11/18/2024 07:40 PM Temperature (8310-5) 96.8 [degF] Oxygen Saturation (30790-0) 96 % Respiratory Rate (9279-1) 15 /min Heart Rate (8867-4) 65 /min Blood Pressure Systolic (8480-6) 120 mm[Hg] Blood Pressure Diastolic (8462-4) 81 mm[Hg] 11/18/2024 11:41 AM Oxygen Saturation (41411-5) 96 % 11/18/2024 11:34 AM Temperature (8310-5) 98.4 [degF] Respiratory Rate (9279-1) 16 /min Heart Rate (8867-4) 72 /min Blood Pressure Systolic (8480-6) 110 mm[Hg] Blood Pressure Diastolic (8462-4) 57 mm[Hg] 11/17/2024 10:33 PM Temperature (8310-5) 98.4 [degF] Oxygen Saturation (76679-7) 93 % Respiratory Rate (9279-1) 23 /min Heart Rate (8867-4) 68 /min Blood Pressure Systolic (8480-6) 111 mm[Hg] Blood Pressure Diastolic (8462-4) 61 mm[Hg] 11/17/2024 05:02 PM Temperature (8310-5) 97 [degF] 11/17/2024 05:01 PM Blood Pressure Systolic (8480-6) 1 10 mm[Hg] Blood Pressure Diastolic (8462-4) 68 mm[Hg] 11/17/2024 04:59 PM Oxygen Saturation (51984-7) 90 % Respiratory Rate (9279-1) 18 /min Heart Rate (8867-4) 86 /min 11/17/2024 01:56 AM Temperature (8310-5) 97 [degF] Oxygen Saturation (71632-8) 95 % Respiratory Rate (9279-1) 18 /min Heart Rate (8867-4) 78 /min Blood Pressure Systolic (8480-6) 124 mm[Hg] Blood Pressure Diastolic (8462-4) 88 mm[Hg] 11/16/2024 12:12 PM Temperature (8310-5) 97.8 [degF] Respiratory Rate (9279-1) 22 /min Heart Rate (8867-4) 85 /min Blood Pressure Systolic (8480-6) 112 mm[Hg] Blood Pressure Diastolic (8462-4) 83 mm[Hg] 11/14/2024 05:20 PM Body Weight (63068-7) 163.6 [lb_av ] Body Mass Index (61287-2) 33.04 kg/m2 11/13/2024 12:01 PM Body Weight (19470-2) 163.8 [lb_av ] Body Mass Index (20347-9) 33.08 kg/m2 11/10/2024 05:24 PM Body Weight (11235-6) 164.6 [lb_av ] Body Mass Index (10265-0) 33.24 kg/m2 11/07/2024 03:40 PM Body Height (8302-2) 59 [in_us] Social History No smoking Hx information available Encounters Type CPT Code Date Location Provider Indication s encounter report 11/06/2024 03:4 1 PM - 11/21/2024 01:45 PM Antonio Delgado MD Advance Directives Directive Description Verification Date Supporting Document(s) Other Directive
--- OUTSIDE RECORDS SUMMARY | 2025-02-01 19:33 | XMS_ITS | Clinical Summary ---
Author Organization [facility] Address [address] 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 Gender Identity Not on file Sexual Orientation [...] 2024 02/12/2013 Medical Devices Implanted Type Area Congressional Assistant Device Identifier Shelf Expiration Date Model / Serial / Lot Dev Sealangio Vip 8fr [id number] - [id number] Implanted:Qty: 1 on 01/04/2024 by Colleen Junior MD at [facility] Closure Device N/A: Groin [facility] [employer] [id number] 07/06/2024 [id number] / / [id number] [place] Ptfe Thck 1.6mmx2.5x2.5c m [id number] - Sn/A Implanted:Qty: 1 on 07/12/2013 Graft [employer] 04/11/2018 [id number] / N/A / [id number] Procedures Procedure Name Priority Date/Time Associated Diagnosis Comments HEMOGLOBIN A1C Routine 01/01/2024 4:47 AM CDT from Last 3 Months or Most Recently Relevant to Health Maintenance Results * (ABNORMAL) HEMOGLOBIN A1C (01/01/2024 4:47 AM CDT) HEMOGLOBIN A1C 8.1(H) <=5.6 % 01/03/2024 12:13 PM CDT [facility] EST. AVG GLUCOSE, A1C 186 mg/dL 01/03/2024 12:13 PM CDT [facility] Blood Venipuncture / Unknown 01/01/2024 4:47 AM CDT 01/01/2024 5:04 AM CDT Narrative [facility] - 01/03/2024 12:13 PM CDT HGB A1C INTERPRETATION NORMAL: <5.7% PRE-DIABETES: 5.7 - 6.4% DIABETES: 6.5% OR GREATER us Priyank Loving MD CHEMISTRY ORDERABLES Final Res ult [facility] CLIA # [id number] [address] [address] from Last 3 Months or Most Recently Relevant to Health Maintenance Insurance [facility] Advance Directives For more information, please contact: [phone] * Full Code (Latest Code Status on File) Date Activated Date Inactivated Comments 12/31/2023 12:58 PM 01/05/2024 4:45 PM Care Teams Flat Finisher Relationship Specialty Start Date End Date Thomas Nava DO [address] [address] PCP - General Family Practice 06/26/13
--- OUTSIDE RECORDS SUMMARY | 2025-02-01 19:33 | XMS_ITS | Clinical Summary ---
Author Organization [facility] Address [address] [place] [address] Phone Care Team Providers Care Java Technical Architect Name Role Phone Thomas Nava DO Primary Care Provider [phone] Allergies No known active allergies Medications ranitidine [...] heart failure), NYHA class IV (CMS/HCC) [facility]Non-Drug; Combo Route) route. Active insulin aspart protamine-insul [...] tablet Take 0.5 Tabs by mouth daily arranger assembler. 30 Tab 2 4 Active traMADol (ULTRAM) 50 mg tablet Take 1 Tab by mouth every 6 hours as needed for Pain. 30 Tab 0 4 Active oxygen home deliveryIndicat ions:CAD (coronary artery disease),CHF (congestive heart failure), NYHA class IV ([facility]) Rest: Room Air 88% Rest: Oxygen @ [...] on file Legal Sex Female 8:49 AM PHARMACEUTICAL PROCESS ENGINEER Gender Identity Not on file Sexual Orientation [...] 2024 02/12/2013 Medical Devices Implanted Type Area Senior Lead Developer Device Identifier Shelf Expiration Date Model / Serial / Lot [place] Ptfe Thck 1.6mmx2.5x2.5cm [id number] - Sn/A Implanted:Qty: 1 on 07/12/2013 at [facility] Graft [employer] 04/11/2018 [id number] / N/A / [id number] Procedures Procedure Name Priority Date/Time Associated Diagnosis Comments HEMOGLOBIN A1C Routine 07/11/2013 2:35 PM PHARMACEUTICAL PROCESS ENGINEER Crescendo angina (CMS/HCC) CAD (coronary artery disease) Type II or unspecified type diabetes mellitus with other specified manifestations, not stated as uncontrolled (CMS/HCC) Essential hypertension, benign Hyperlipidemia CHF (congestive heart failure), NYHA class IV (CMS/HCC) from Last 3 Months or Most Recently Relevant to Health Maintenance Results * (ABNORMAL) HEMOGLOBIN A1C (07/11/2013 2:35 PM PHARMACEUTICAL PROCESS ENGINEER) HEMOGLOBIN A1C 8.5(H) 4.0 - 6.0 %A1C [facility] Comment: This test was performed on a [employer] VARIANT II Instrument using HPLC methodology. Blood specimen (specimen) 07/11/2013 2:35 PM PHARMACEUTICAL PROCESS ENGINEER 07/11/2013 2:54 PM PHARMACEUTICAL PROCESS ENGINEER Margaret Sheldon MD CHEMISTRY ORDERABLES F inal Result INTERFACE SYSTEM Refer to clinic/hospital department [facility] CLIA# [id number] [address] [place] [address] from Last 3 Months or Most Recently Relevant to Health Maintenance Insurance [employer] [facility] [employer] [facility] [address] [place] [address] Advance Directives For more information, please contact: [phone] * Full Code (Latest Code Status on File) Date Activated Date Inactivated Comments 07/13/2013 7:11 AM 07/18/2013 6:51 PM * Full Code Date Activated Date Inactivated Comments 07/12/2013 11:11 AM 07/13/2013 7:11 AM * Full Code Date Activated Date Inactivated Comments 07/12/2013 10:37 AM 07/12/2013 11:11 AM * Full Code Date Activated Date Inactivated Comments 07/12/2013 4:55 AM 07/12/2013 10:37 AM Care Teams Java Technical Architect Relationship Specialty Start Date End Date Thomas Nava DO [address] [phone] PCP - General Family Practice 06/26/13
--- OUTSIDE RECORDS SUMMARY | 2025-02-01 19:33 | XMS_ITS | Encounter Summary ---
Author Organization [facility] Address 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
--- OUTSIDE RECORDS SUMMARY | 2025-02-01 19:33 | XMS_ITS | Patient Health Record ---
Author Organization [facility] Address [address] [place] [address] Care Team Providers Care Bisque Cleaner Name Role Phone Julio Miller Primary Care Provider Lauro Herbert Allergies No Known Allergies Reason For Referral No Information Medications Medication SIG (Take, Route, Frequency, Duration) Notes Start Date End Date Status HYDROcodone-Acetaminophen 5-325 MG Tablet 1 tablet as needed Orally every 6 hrs; Duration: 30 days 12/23/2024 Active Furosemide 40 MG Tablet 1 tablet Orally Once a day Active Budesonide 0.5 MG/2ML Suspension 1 mL Inhalation Twice a day Active Ipratropium-Albuterol 0.5-2.5 (3) MG/3ML Solution 3 mL as needed Inhalation every 6 hrs Active Tresiba FlexTouch 200 UNIT/ML Solution Pen-injector as directed Subcutaneous Act sean Midodrine HCl 5 MG Tablet 1 tablet Orally Twice a day Active Problems Problem Type SNOMED Code ICD Code Onset Dates Problem Status W/U Status Risk Notes Problem Cardiac arrest due to cardiac disorder (929107134) Cardiac arrest due to underlying cardiac condition (I46.2) Active confirmed Problem Fipof-tn-yfzysig hypoxemic respiratory failure (835092782631648 00) Acute and chronic respiratory failure with hypoxia (J96.21) Active confirmed Problem Diabetes mellitus (38475687) Diabetes mellitus (E11.9) Active confirmed Encounters Encounter Location Date Provider Diagnosis [facility] [address] [place] [address] 12/16/2024 Lauro Moya Cardiac arrest due t o underlying cardiac condition I46.2 ; Acute and chronic respiratory failure with hypoxia J96.21 and Type 2 diabetes mellitus without complications E11.9 [facility] [address] [place] [address] 01/17/2025 Lauro Moya Cardiac arrest due t o underlying cardiac condition I46.2 ; Acute and chronic respiratory failure with hypoxia J96.21 and Type 2 diabetes mellitus without complications E11.9 [facility] [address] [place] [phone] 12/23/2024 [facility] [address] [place] [phone] 01/16/2025 [facility] [address] [place] [phone] 01/16/2025 [facility] Assessments Encounter Date Diagnosis (ICD Code) Assessment Notes Treatment Notes Treatment Clinical Notes Section Notes 12/16/2024 Cardiac arrest due to underlying cardiac condition (ICD-10 - I46.2) Medications reviewed, orders signed and documented with nursing staff. Vitals taken and recorded at [facility]. 12/16/2024 Acute and chronic respiratory failure with hypoxia (ICD-10 - J96.21) 01/17/2025 Cardiac arrest due to underlying cardiac condition (ICD-10 - I46.2) Medications were reviewed. I will continue without changes. Nursing staff is to contact me with any symptoms arising. Orders signed and documented with nursing staff. Vitals taken and recorded at [facility]. 01/17/2025 Acute and chronic respiratory failure with hypoxia (ICD-10 - J96.21) 01/17/2025 Type 2 diabetes mellitus without complications (ICD-10 - E11.9) 12/16/2024 Type 2 diabetes mellitus without complications (ICD-10 - E11.9) 01/17/2025 Other Medications were reviewed. I will continue without changes. Nursing staff is to contact me with any symptoms arising. Orders signed and documented with nursing staff. Vitals taken and recorded at [facility]. Home Health Certification [facility] [address] [place] [address], [place] [address] [phone] ([phone] Home Health Face to Face Encounter I certify that this patient is under my care and that I had a face to face encounter that met the physician face to face encounter requirements with the patient today. The encounter with the patient was in whole, or part for the following medical conditions which is/are the primary reason(s) for home health care (Check all that apply): CAD ____ CABG ____ CHF ____ HTN ____ CVA ____ GERD ____ PVD ____ SOB ____ Wound Care ____ COPD __x__ Cellulitis ____ Pressure Ulcer ____ Diabetes ____ Alzheimer's dementia ____ Parkinson's ____ Pain ____ Aftercare Following Surgery ____ Abnormal Gait ____ Weakness ____ Obesity ____ Depression ____ Dementia ____ Memory Loss ____ Seizures ____ Atrial fibrillation ____ Vision Loss ____ Pernicious Anemia ____ Other ____ I certify that, based on my findings, the following services are medically necessary home health services (Check all that apply): [facility] __x__ Physical Therapy _x___ Occupational Therapy __x__ Speech Language Therapy ____ Aide ____ Support Director ____ MY MEDICAL FINDINGS SUPPORT THE NEED FOR THE ABOVE SERVICES BECAUSE (Check all that apply):Knowledge deficit related to new or exacerbation of disease process _x___ Knowledge deficit for medication management ____ Knowledge deficit for diet ____ Newly prescribed or changed medication for exacerbated disease or condition Elevated/poorly controlled blood pressure, abnormal reading of BP >190/100 ____ Increased SOB or dyspnea, hypoxia, adventitious lung sounds, productive cough Exacerbation or new onset of pain _x___ Abnormal readings or lab values of HgBa1c >7 or CBG greater than 140 ____ Alterations in level of consciousness or cognition, dizziness, related to diagnosis Conditions managed with injections, infusion therapy, TPN, or lipids ____ Open, draining, complex, or non-healing wound ____ Urinary incontinence managed with a catheter ____ Conditions managed with nebulizer, oxygen ____ Weight gain or edema related to heart failure or other condition ____ Weight loss related to COPD or other condition ____ Conditions affecting ability to swallow or communication ____ Nutritional issues, dehydration, poor skin turgor ____ Post-operative risks requiring monitoring and teaching ____ Gait instability or difficulty walking ____ Decreased or limited mobility ROM, weight bearing, functional status ____ Balance issues, frequent falls, risk for falling ____ Presence of comorbidities that may impact healing/recovery ____ Other ____ FURTHER, I CERTIFY THAT MY FINDINGS SUPPORT THAT THIS PATIENT IS HOMEBOUND BECAUSE (Check all that apply):Requires a taxing effort to leave the home as evidenced by extreme SOB, easily fatigued, compromised mobility _x___ Requires assistance another human or device to safely leave the home due to poor endurance and generalized weakness _x___ Cognitive impairments, dementias, mental confusion that make it unsafe for the patient to leave the home ____ Poor circulation, numbness, weakness, paralysis, or in lower extremities causing balance or other gait disorders/unstabl e gait ____ Complex non-healing wound making it medically restricting and taxing for the patient to leave the home ____ Decrease in ROM, frequent falls or decreased functional status causing taxing effort to leave the home ____ Electronic signature of this encounter verifies this information Plan Of Treatment No Information Insurance Providers Payer Name Payer Address Payer Phone Subscriber Number Group Number Insured Name Patient Relationship to Insured Coverage Start Date Coverage End Date [employer] with DME [address] [address] [place] [address] [id number] Sally Henderson Self - patient is the insured [place] Medicare [address] [address] [place] [address] [id number] Sally Henderson Self - patient is the insured Medical (General) History Medical History History ICD Code Acute sepsis A41.9 Bone infection M86.9 Infected skin lesion L08.9 Cardiac arrest due to underlying cardiac condition I46.2 Acute and chronic respiratory failure [facility] hypoxia J96.21 Diabetes mellitus E11.9
[2025-02-01 19:49] VITALS: BP 120/64; PULSE 70; RESP 18; TEMP 36.8; O2SAT 95
[2025-02-01 19:51] LABS: Hematocrit 30.7 % (36-47); Hemoglobin 9.20 g/dL (11.27-16.99); Mean Corpuscular HGB Conc 30.0 g/dL (30-55); Mean Corpuscular Hemoglobin 26.7 pg (27-33); Mean Corpuscular Volume 89.0 fl (85-98); Nucleated Red Blood Cells % 0 %; Platelet Count 170 10^3/cmm (157-399); Red Blood Count 3.45 10^6/uL (3.85-5.65); White Blood Count 8.46 10^3/uL (3.29-11.43)
[2025-02-01 20:09] LABS: Alanine Aminotransferase 9 U/L (0-33); Albumin Level 3.3 g/dL (3.5-5.2); Alkaline Phosphatase 113 U/L (35-105); Anion Gap 14.0 (5-19); Aspartate Amino Transferase 13 U/L (0-32); Blood Urea Nitrogen 26 mg/dL (8-23); Calcium 8.7 mg/dL (8.5-10.5); Carbon Dioxide 24 mmol/L (22-29); Chloride 107 mmol/L (98-107); Creatinine Clr Calc Pharmacy 77.6458; Globulin 3.3 g/dL (1.3-4.6); Glucose 41 mg/dL (65-115); Osmolality Calculated 294 mOsm/kg (285-295); Potassium 4.0 mmol/L (3.5-5.1); Sodium 141 mmol/L (136-145); Total Protein 6.6 g/dL (6.6-8.7)
[2025-02-02 00:57] VITALS: BP 141/82; PULSE 71; RESP 16; O2SAT 97
--- NOTE | 2025-02-02 04:49 | W.ED.RECABL ---
HPI - Recheck/Abnormal Lab/Rx General: Chief Complaint: Recheck/Abnormal Lab/Rx Stated Complaint: FALL Time Seen by Provider: 02/01/25 19:29 History of Present Illness: 84 yo F with Hx of dyslipidemia, HTN, COPD, DM2 insulin-dependent, CAD, paroxysmal AFib, CKD, CHF presented by EMS after a fall at home. Recently discharged from care home due to insurance; now living with son. Pt reports significant hunger and limited food intake at home. EMS reported BG as low as 23; D10 given with transient rise to ~150 then ~120; last EMS check ~70. In ED, pt intermittently confused and somnolent, oriented to basic questions but unable to provide specific details. Denies new pain except chronic left foot issue; does not recall the fall. No head, neck, back, hip, or knee pain reported. Requests food; provided juice and sandwich. Related Data Home Medications ?Medication ?Instructions ?Recorded ?Confirmed atorvastatin 40 mg tablet 40 mg PO QPM 07/18/24 01/21/25 tramadol 50 mg tablet 50 mg PO Q6H PRN Pain 07/18/24 01/21/25 insulin aspart U-100 100 unit/mL See Rx Instructions .Route .COMPLEX 12/06/24 01/21/25 (3 mL) subcutaneous pen (Novolog FlexPen U-100 Insulin aspart) omeprazole 20 mg capsule,delayed 20 mg PO BID 12/06/24 01/21/25 release ondansetron 4 mg disintegrating 4 mg PO Q8H PRN Nausea And Vomiting 12/06/24 01/21/25 tablet sucralfate 1 gram tablet 1 g PO BID 12/06/24 01/21/25 Previous Rx's ?Medication ?Instructions ?Recorded clopidogrel 75 mg tablet 75 mg PO BEDTIME #90 tabs 03/27/24 nebulizer and compressor ([id number] #1 ea 07/23/24 Nebulizer) CAM walker #1 ea 11/28/24 acetaminophen 325 mg tablet 650 mg (2 x 325 mg) PO Q6H PRN 12/13/24 Mild/Mod Pain Or Temp >/= 101 #30 tabs budesonide 0.5 mg/2 mL suspension 0.5 mg (2 mL) inhalation 12/13/24 for nebulization BID.RESPIRATORY #60 mL furosemide 40 mg tablet 40 mg PO DAILY@0800 #30 tabs 12/13/24 hydrocodone 5 mg-acetaminophen 325 1 tab PO Q6H PRN Moderate Pain #30 12/13/24 mg tablet tabs insulin degludec 200 unit/mL (3 35 unit (0.175 mL) SUBCUT DAILY #9 12/13/24 mL) subcutaneous pen (Tresiba mL FlexTouch U-200 insulin) ipratropium 0.5 mg-albuterol 3 mg 3 ml inhalation Q6H.RESP #90 mL 12/13/24 (2.5 mg base)/3 mL nebulization soln midodrine 5 mg tablet 5 mg PO TID #90 tabs 12/13/24 modified lanolin 100 % topical 1 applic topical PRN PRN Dryness 12/13/24 cream (Lanolin (HPA)) #40 grams nystatin 100,000 unit/gram topical 1 applic topical BID #60 grams 12/13/24 powder (Nystop) piperacillin-tazobactam 4.5 4.5 g (112.5 mL) IV Q8H 12/13/24 gram/100 mL dextrose(iso-osm) IV piggyback (Zosyn) potassium chloride 20 mEq 20 meq PO DAILY #30 tabs 12/13/24 tablet,extended release(part/cryst) (Klor-Con M) ranolazine 500 mg tablet,extended 500 mg PO BID #60 tabs 12/13/24 release,12 hr vancomycin 1.25 gram/250 mL in 1,250 mg (250 mL) continuous IV 12/13/24 diluent combination IV piggyback infusion Q24H #1,500 mL amiodarone 200 mg tablet 100 mg (1/2 x 200 mg) PO DAILY #30 12/16/24 tabs dapagliflozin propanediol 10 mg 10 mg PO DAILY #30 tabs 12/16/24 tablet (Farxiga) sacubitril 24 mg-valsartan 26 mg 0.5 tab PO BID #30 tabs 12/16/24 tablet (Entresto) linezolid 600 mg tablet 600 mg PO BID #14 tabs 01/21/25 Allergies Allergy/AdvReac Type Severity Reaction Status Date / Time No Known Allergies Allergy Verified 01/21/25 13:40 PFSH ED PFSH: Medical History (Updated 02/02/25 @ 00:11 by Marques Martin MD) Dyslipidemia Essential (primary) hypertension COPD (chronic obstructive pulmonary disease) Chronic hypoxic respiratory failure, on home oxygen therapy Diabetes mellitus, type II, insulin dependent CAD (coronary artery disease) Paroxysmal A-fib CKD (chronic kidney disease) CHF (congestive heart failure) Respiratory arrest has required intubation Non-STEMI (non-ST elevated myocardial infarction) Contrast-induced nephropathy Surgical History Hx of hysterectomy Hx of CABG Family History Unknown No problems noted. Social History Smoking and tobacco/nicotine status: former use of tobacco/nicotine Alcohol intake: never Substance/Drug Use: never Physical Exam Narrative: EXAM NARRATIVE: Gen: Somnolent but arousable; intermittently confused; hungry. Neck: No tenderness with palpation of cervical spine; full ROM without pain. Back: No midline tenderness. Extremities: Left foot with chronic-appearing lesion; dressing in place; no appreciated erythema or warmth on visualized foot/ankle; s/p left great toe amputation. Neuro: Answering most questions appropriately but unable to provide specific details; confusion consistent with hypoglycemia. Skin: Small amount of dried blood at elbow from prior stick. HENMT: COMMON NORMALS: normocephalic and atraumatic HEAD & SCALP: normocephalic and atraumatic Eye: COMMON NORMALS: Equal, round and reactive pupils present, EOMs intact bilaterally and no scleral icterus PUPIL: Yes Equal, round and reactive pupils present Resp: COMMON NORMALS: normal respiratory effort and No retractions Cardio: COMMON NORMALS: regular rate, regular rhythm and No murmurs present (Cardio) RATE: regular rate RHYTHM: regular rhythm Course Vital Signs: Vital signs: Vital Signs Temperature 98.2 F 02/01/25 19:49 Pulse Rate 71 02/02/25 00:57 Respiratory Rate 16 02/02/25 00:57 Blood Pressure 141/82 02/02/25 00:57 Pulse Oximetry 97 02/02/25 00:57 MDM - Recheck/Abnormal Lab/Rx Medical Decision Making 84 yo F with DM2 on insulin presented after fall with recurrent hypoglycemia and confusion; limited intake at home after recent discharge from care home. Denies new focal pain; main complaint hunger. Does not recall fall. PE notable for somnolence but arousable, no head trauma, no C-spine tenderness, full neck ROM, no midline back pain, left foot chronic lesion with s/p great toe amputation without visible erythema or warmth. Pertinent labs: BG reported 23 by EMS; after D10 jessica to ~150 then ~120; EMS last ~70; ED readings ~38 and 37. [Pertinent Imaging Results Not Available] Presentation consistent with hypoglycemia causing confusion. Low suspicion for traumatic injury given history and exam. Contributing factors discussed include possible insulin dosing issue and inadequate food intake. Basic labs ordered; serial glucose checks planned. D10 to be given in ED and oral intake provided. No imaging planned at this time. Disposition to home if glucose remains stable and no new complaints arise. Multiple Accu-Chek readings after she ate shows stable blood glucose. Mentation is at baseline and she would like to go home. I feel this is reasonable. She will be discharged in stable and improved condition with instructions to be very careful about her insulin dosing and to match her insulin to her oral intake Lab Data 02/01/25 19:45 02/01/25 19:45 Laboratory Results WBC 8.46 10^3/uL (3.29-11.43) 02/01/25 19:45 RBC 3.45 10^6/uL (3.85-5.65) L 02/01/25 19:45 Hgb 9.20 g/dL (11.27-16.99) L 02/01/25 19:45 Hct 30.7 % (36-47) L 02/01/25 19:45 MCV 89.0 fl (85-98) 02/01/25 19:45 MCH 26.7 pg (27-33) L 02/01/25 19:45 MCHC 30.0 g/dL (30-55) 02/01/25 19:45 RDW 18.0 % (12.1-15.1) H 02/01/25 19:45 Plt Count 170 10^3/cmm (157-399) 02/01/25 19:45 MPV 11.1 fL (7.4-10.4) H 02/01/25 19:45 Neut % (Auto) 71.1 % 02/01/25 19:45 Lymph % (Auto) 8.7 % 02/01/25 19:45 Wake % (Auto) 14.8 % 02/01/25 19:45 Eos % (Auto) 4.7 % 02/01/25 19:45 Baso % (Auto) 0.2 % 02/01/25 19:45 Neut # (Auto) 6.01 10^3/uL (1.8-7.7) 02/01/25 19:45 Lymph # (Auto) 0.7 10^3/uL (0.8-4.8) L 02/01/25 19:45 Wake # (Auto) 1.3 10^3/uL (0.2-0.9) H 02/01/25 19:45 Eos # (Auto) 0.4 10^3/uL (0.0-0.8) 02/01/25 19:45 Baso # (Auto) 0.0 10^3/uL (0.0-0.1) 02/01/25 19:45 Nucleated RBC % (auto) 0 % 02/01/25 19:45 Nucleated RBCs # 0.0 /100WBC 02/01/25 19:45 Sodium 141 mmol/L (136-145) 02/01/25 19:45 Potassium 4.0 mmol/L (3.5-5.1) 02/01/25 19:45 Chloride 107 mmol/L (98-107) 02/01/25 19:45 Carbon Dioxide 24 mmol/L (22-29) 02/01/25 19:45 Anion Gap 14.0 (5-19) 02/01/25 19:45 BUN 26 mg/dL (8-23) H 02/01/25 19:45 Creatinine 0.8 mg/dL (0.5-0.9) 02/01/25 19:45 GFR Calculation Not Reportable 02/01/25 19:45 Glucose 41 mg/dL (65-115) L 02/01/25 19:45 POC Glucose 129 mg/dL (70-110) H 02/01/25 23:59 Calculated Osmolality 294 mOsm/kg (285-295) 02/01/25 19:45 Calcium 8.7 mg/dL (8.5-10.5) 02/01/25 19:45 Total Bilirubin 0.2 mg/dL (0.15-1.2) 02/01/25 19:45 AST 13 U/L (0-32) 02/01/25 19:45 ALT 9 U/L (0-33) 02/01/25 19:45 Alkaline Phosphatase 113 U/L (35-105) H 02/01/25 19:45 Total Protein 6.6 g/dL (6.6-8.7) 02/01/25 19:45 Albumin 3.3 g/dL (3.5-5.2) L 02/01/25 19:45 Globulin 3.3 g/dL (1.3-4.6) 02/01/25 19:45 No radiology studies performed this visit Discharge Plan Discharge Patient Disposition: Home Clinical Impression: Hypoglycemia Condition: Stable Prescriptions: No Action (DME) VIRY land See Rx Instructions .Route .MEDSUPPLY Qty: 1 0RF Rx Instructions: As directed clopidogrel 75 mg tablet 75 mg PO BEDTIME Qty: 90 3RF linezolid 600 mg tablet 600 mg PO BID Qty: 14 0RF sucralfate 1 gram tablet 1 g PO BID omeprazole 20 mg capsule,delayed release(DR/EC) 20 mg PO BID ondansetron 4 mg tablet,disintegrating 4 mg PO Q8H PRN (Reason: Nausea And Vomiting) insulin aspart U-100 [Novolog FlexPen U-100 Insulin] 100 unit/mL (3 mL) insulin pen See Rx Instructions .ROUTE .COMPLEX Rx Instructions: INJECT UNDER SKIN BEFORE MEALS AND AT BEDTIME PER SLIDING SCALE, 201-250=4 UNITS, 251-300=6 UNITS, 301-350=8 UNITS, 351-400=10 UNITS, >400=12 UNITS acetaminophen 325 mg Tablet 650 mg PO Q6H PRN (Reason: Mild/Mod Pain Or Temp >/= 101) Qty: 30 0RF furosemide 40 mg Tablet 40 mg PO DAILY@0800 Qty: 30 0RF ipratropium-albuterol 0.5 mg-3 mg(2.5 mg base)/3 mL Solution For Nebulization 3 ml inhalation Q6H.RESP Qty: 90 0RF hydrocodone-acetaminophen 5-325 mg Tablet 1 tab PO Q6H PRN (Reason: Moderate Pain) Qty: 30 0RF midodrine 5 mg Tablet 5 mg PO TID Qty: 90 0RF budesonide 0.5 mg/2 mL Suspension For Nebulization 0.5 mg inhalation BID.RESPIRATORY Qty: 60 0RF nystatin [Nystop] 100,000 unit/gram Powder 1 applic topical BID Qty: 60 0RF Lanolin (HPA) 100 % Cream 1 applic topical PRN PRN (Reason: Dryness) Qty: 40 0RF potassium chloride [Klor-Con M20] 20 mEq Tablet,Er Particles/Crystals 20 meq PO DAILY Qty: 30 0RF ranolazine 500 mg Tablet Extended Release 12 Hr 500 mg PO BID Qty: 60 0RF vancomycin-diluent combo no.1 1.25 gram/250 mL Piggyback 1,250 mg continuous IV infusion Q24H Qty: 1500 0RF Zosyn in dextrose (iso-osm) 4.5 gram/100 mL piggyback 4.5 g IV Q8H insulin degludec [Tresiba FlexTouch U-200] 200 unit/mL (3 mL) insulin pen 35 unit SUBCUT DAILY Qty: 9 0RF Entresto 24-26 mg tablet 0.5 tab PO BID Qty: 30 0RF dapagliflozin propanediol [Farxiga] 10 mg tablet 10 mg PO DAILY Qty: 30 0RF amiodarone 200 mg tablet 100 mg PO DAILY Qty: 30 0RF atorvastatin 40 mg tablet 40 mg PO QPM tramadol 50 mg tablet 50 mg PO Q6H PRN (Reason: Pain) (DME) nebulizer and compressor [[id number] Nebulizer] Device See Rx Instructions .Route Qty: 1 0RF Rx Instructions: As directed Discharge Orders: Discharge ED (Routine); Ordered 02/02/25 Ordered By: Marques Martin Referrals: Antonio Delgado MD [Primary Care Provider, Family Practice] Discharge Diet: Usual diet Discharge Activity: Resume usual activity Patient Instructions: Hypoglycemia in a Person with Diabetes (ED), What to Do if Your Blood Sugar is Low (ED), Opioid Safety, Pain Management, Patient Portal & Ivanna Instructions Activity Restrictions/Additional Instructions: Your blood sugar was dangerously low causing you to have altered mental status. Please be careful to take your appropriate insulin dose accurately and eat an appropriate mount of food to counteract insulin. Print Language: Gibraltarian Coding Level of Care Code ED Homicide Squad Lieutenant for Akosua Vasquez
== END 2025-02-02 01:00 | disposition home or self-care (01) ==
PROVIDERS: Emergency Provider Student in an Organized Health Care Education/Training Program; PCP Family Medicine
DX: E11.649 Type 2 diabetes mellitus with hypoglycemia without coma (principal); E11.22 Type 2 diabetes mellitus with diabetic chronic kidney disease; I13.0 Hypertensive heart and chronic kidney disease with heart failure and stage 1 through stage 4 chronic kidney disease, or unspecified chronic kidney disease; N18.9 Chronic kidney disease, unspecified; I50.9 Heart failure, unspecified; I25.10 Atherosclerotic heart disease of native coronary artery without angina pectoris; E78.5 Hyperlipidemia, unspecified; Z95.1 Presence of aortocoronary bypass graft; Z87.891 Personal history of nicotine dependence; Z79.4 Long term (current) use of insulin
CPT/HCPCS: 36415; 36416; 80053; 82962; 85025; 99284; J7799

== ENCOUNTER 2025-02-03 06:28 | Inpatient (IN) | payer MEDICARE, SELFPAY ==
[2025-02-03] VITALS (15 sets, daily range): BP systolic 94–144; BP diastolic 49–80; PULSE 80–100; RESP 16–20; TEMP 36.4–37.6; O2SAT 91–100
--- OUTSIDE RECORDS SUMMARY | 2025-02-03 06:32 | XMS_ITS | Patient Health Record ---
Author Organization [facility] Address [address] [place] [address] Care Team Providers Care Automation Software Engineer Name Role Phone Julio Miller Primary Care [...] Problem Cardiac arrest due to cardiac disorder (290725699) Cardiac arrest due to underlying cardiac condition (I46.2) Active confirmed Problem Rclab-bk-xllgtsr hypoxemic respiratory failure (287341023833997 00) Acute and chronic respiratory failure with hypoxia (J96.21) Active confirmed Problem Diabetes mellitus (37122494) Diabetes mellitus (E11.9) Active confirmed Encounters Encounter Location Date Provider Diagnosis [facility] [address] [place] [id number] 12/16/2024 Lauro Moya Cardiac arrest due t o underlying cardiac condition I46.2 ; Acute and chronic respiratory failure with hypoxia J96.21 and Type 2 diabetes mellitus without complications E11.9 [facility] [address] [place] [address] 01/17/2025 Lauro Moya Cardiac arrest due t o underlying cardiac condition I46.2 ; Acute and chronic respiratory failure with hypoxia J96.21 and Type 2 diabetes mellitus without complications E11.9 [facility] [address] [place] [phone] 12/23/2024 [facility] [address] [place] [phone] 01/16/2025 [facility] [address] [place] [phone] 01/16/2025 [facility] Assessments Encounter Date Diagnosis (ICD Code) Assessment Notes Treatment Notes Treatment Clinical Notes Section Notes 12/16/2024 Cardiac arrest due to underlying cardiac condition (ICD-10 - I46.2) Medications reviewed, orders signed and documented with nursing staff. Vitals taken and recorded at [facility]. 12/16/2024 Acute and chronic respiratory failure with hypoxia (ICD-10 - J96.21) 01/17/2025 Cardiac arrest due to underlying cardiac condition (ICD-10 - I46.2) Medications were reviewed. I will continue without changes. Nursing staff is to contact me with any symptoms arising. Orders signed and documented with nursing staff. Vitals taken and recorded at [facility]. 01/17/2025 Acute and chronic respiratory failure with hypoxia (ICD-10 - J96.21) 01/17/2025 Type 2 diabetes mellitus without complications (ICD-10 - E11.9) 12/16/2024 Type 2 diabetes mellitus without complications (ICD-10 - E11.9) 01/17/2025 Other Medications were reviewed. I will continue without changes. Nursing staff is to contact me with any symptoms arising. Orders signed and documented with nursing staff. Vitals taken and recorded at [facility]. Home Health Certification [facility] [address] [place] [address], [place] [address] ([phone] Home Health Face to Face Encounter I [...] home health services (Check all that apply): Half-Way __x__ Physical Therapy _x___ Occupational Therapy __x__ Speech Language Therapy ____ Aide ____ Shearing Machine Tender ____ MY MEDICAL FINDINGS SUPPORT THE NEED [...] End Date [employer] with DME [address] [address] [place] [address] [id number] Sally Henderson Self - patient is the insured [place] Medicare [address] [address] [place] [address] [id number] Sally Henderson Self - patient is the insured Medical (General) History Medical History History ICD Code Acute sepsis A41.9 Bone infection M86.9 Infected skin lesion L08.9 Cardiac arrest due to underlying cardiac condition I46.2 Acute and chronic respiratory failure [facility] hypoxia J96.21 Diabetes mellitus E11.9
--- OUTSIDE RECORDS SUMMARY | 2025-02-03 06:32 | XMS_ITS | Encounter Summary ---
Author Organization [facility] Address 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
--- OUTSIDE RECORDS SUMMARY | 2025-02-03 06:32 | XMS_ITS | Clinical Summary ---
Author Organization [facility] Address [address] [place] [address] Phone Care Team Providers Care School Operations Manager Name Role Phone Thomas Nava DO Primary Care Provider [phone] Allergies No known active allergies Medications ranitidine [...] heart failure), NYHA class IV (CMS[facility]HCC[facility]Non-Drug; Combo Route) route. Active insulin aspart [...] tablet Take 0.5 Tabs by mouth daily early learning teacher. 30 Tab 2 4 Active traMADol (ULTRAM) 50 mg tablet Take 1 Tab by mouth every 6 hours as needed for Pain. 30 Tab 0 4 Active oxygen home deliveryIndicat ions:CAD (coronary artery disease),CHF (congestive heart failure), NYHA class IV ([facility]) Rest: Room Air 88% Rest: Oxygen @ [...] on file Legal Sex Female 8:49 AM MANAGER SURGICAL Gender Identity Not on file Sexual Orientation [...] 2024 02/12/2013 Medical Devices Implanted Type Area Lubricating Specialist Device Identifier Shelf Expiration Date Model / Serial / Lot [place] Ptfe Thck 1.6mmx2.5x2.5cm [id number] - Sn/A Implanted:Qty: 1 on 07/12/2013 at [facility] Graft CR [employer] 04/11/2018 [id number] / N/A / [id number] Procedures Procedure Name Priority Date/Time Associated Diagnosis Comments HEMOGLOBIN A1C Routine 07/11/2013 2:35 PM MANAGER SURGICAL Crescendo angina (CMS/HCC) CAD (coronary artery disease) Type II or unspecified type diabetes mellitus with other specified manifestations, not stated as uncontrolled (CMS/HCC) Essential hypertension, benign Hyperlipidemia CHF (congestive heart failure), NYHA class IV (CMS/HCC) from Last 3 Months or Most Recently Relevant to Health Maintenance Results * (ABNORMAL) HEMOGLOBIN A1C (07/11/2013 2:35 PM MANAGER SURGICAL) HEMOGLOBIN A1C 8.5(H) 4.0 - 6.0 %A1C [facility] Comment: This test was performed on a iSirona VARIANT II Instrument using HPLC methodology. Blood specimen (specimen) 07/11/2013 2:35 PM MANAGER SURGICAL 07/11/2013 2:54 PM MANAGER SURGICAL Margaret Sheldon MD CHEMISTRY ORDERABLES F inal Result INTERFACE SYSTEM Refer to clinic/hospital department [facility] CLIA# [id number] [place] [address] from Last 3 Months or Most Recently Relevant to Health Maintenance Insurance [employer] [facility] [employer] [facility] [address] [place] [address] Advance Directives For more information, please contact: [phone] * Full Code (Latest Code Status on File) Date Activated Date Inactivated Comments 07/13/2013 7:11 AM 07/18/2013 6:51 PM * Full Code Date Activated Date Inactivated Comments 07/12/2013 11:11 AM 07/13/2013 7:11 AM * Full Code Date Activated Date Inactivated Comments 07/12/2013 10:37 AM 07/12/2013 11:11 AM * Full Code Date Activated Date Inactivated Comments 07/12/2013 4:55 AM 07/12/2013 10:37 AM Care Teams School Operations Manager Relationship Specialty Start Date End Date Thomas Nava DO [address] [address] PCP - General Family Practice 06/26/13
--- OUTSIDE RECORDS SUMMARY | 2025-02-03 06:32 | XMS_ITS | Clinical Summary ---
Author Organization [facility] Address [address] 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 Gender Identity Not on file Sexual Orientation [...] 2024 02/12/2013 Medical Devices Implanted Type Area Commercial Attache Device Identifier Shelf Expiration Date Model / Serial / Lot Dev Sealangio Vip 8fr [id number] - [id number] Implanted:Qty: 1 on 01/04/2024 by Colleen Junior MD at [facility] Closure Device N/A: Groin [facility] [id number] 07/06/2024 [id number] / / [id number] [place] Ptfe Thck 1.6mmx2.5x2.5c m [id number] - Sn/A Implanted:Qty: 1 on 07/12/2013 Graft [employer] 04/11/2018 [id number] / N/A / [id number] Procedures Procedure Name Priority Date/Time Associated Diagnosis Comments HEMOGLOBIN A1C Routine 01/01/2024 4:47 AM CDT from Last 3 Months or Most Recently Relevant to Health Maintenance Results * (ABNORMAL) HEMOGLOBIN A1C (01/01/2024 4:47 AM CDT) HEMOGLOBIN A1C 8.1(H) <=5.6 % 01/03/2024 12:13 PM CDT [facility] EST. AVG GLUCOSE, A1C 186 mg/dL 01/03/2024 12:13 PM CDT [facility] Blood Venipuncture / Unknown 01/01/2024 4:47 AM CDT 01/01/2024 5:04 AM CDT Narrative [facility] - 01/03/2024 12:13 PM CDT HGB A1C INTERPRETATION NORMAL: <5.7% PRE-DIABETES: 5.7 - 6.4% DIABETES: 6.5% OR GREATER us Priyank Loving MD CHEMISTRY ORDERABLES Final Res ult [facility] CLIA # [id number] [address] [address] from Last 3 Months or Most Recently Relevant to Health Maintenance Insurance [facility] Advance Directives For more information, please contact: [phone] * Full Code (Latest Code Status on File) Date Activated Date Inactivated Comments 12/31/2023 12:58 PM 01/05/2024 4:45 PM Care Teams Fry Cook Relationship Specialty Start Date End Date Thomas Nava DO [address] [address] PCP - General Family Practice 06/26/13
--- NOTE | 2025-02-03 06:48 | W.ED.BACK ---
HPI - Back Pain/Injury General: Chief Complaint: Back Pain/Injury Stated Complaint: back pain Time Seen by Provider: 02/03/25 06:30 History of Present Illness: 84-year-old female presents emergency room complaining of back pain for the last several days. She has a UTI but has not started the antibiotics she was given previously. 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 She had [facility] but due to some insurance logistical issues that she was discharged home and is currently living with her son. She reports having had a fever at home. Patient is chronically on oxygen at 3 L/min. Initial blood pressure was low in the emergency room however repeat normalized. She does have a low-grade fever. Associated symptoms: Reports fatigue and fever(s); Deny abdominal pain, chills, dysuria or urinary urgency Related Data Home Medications ?Medication ?Instructions ?Recorded ?Confirmed atorvastatin 40 mg tablet 40 mg PO QPM 07/18/24 02/03/25 tramadol 50 mg tablet 50 mg PO Q6H PRN Pain 07/18/24 02/03/25 insulin aspart U-100 100 unit/mL See Rx Instructions .Route .COMPLEX 12/06/24 02/03/25 (3 mL) subcutaneous pen (Novolog FlexPen U-100 Insulin aspart) omeprazole 20 mg capsule,delayed 20 mg PO BID 12/06/24 02/03/25 release ondansetron 4 mg disintegrating 4 mg PO Q8H PRN Nausea And Vomiting 12/06/24 02/03/25 tablet glucagon 1 mg solution for 1 mg SUBCUT PRN PRN low blood sugar 02/03/25 02/03/25 injection (Glucagon Emergency Kit) Previous Rx's ?Medication ?Instructions ?Recorded clopidogrel 75 mg tablet 75 mg PO BEDTIME #90 tabs 03/27/24 nebulizer and compressor ([id number] #1 ea 07/23/24 Nebulizer) VIRY land #1 ea 11/28/24 acetaminophen 325 mg tablet 650 mg (2 x 325 mg) PO Q6H PRN 12/13/24 Mild/Mod Pain Or Temp >/= 101 #30 tabs budesonide 0.5 mg/2 mL suspension 0.5 mg (2 mL) inhalation 12/13/24 for nebulization BID.RESPIRATORY #60 mL furosemide 40 mg tablet 40 mg PO DAILY@0800 #30 tabs 12/13/24 hydrocodone 5 mg-acetaminophen 325 1 tab PO Q6H PRN Moderate Pain #30 12/13/24 mg tablet tabs insulin degludec 200 unit/mL (3 35 unit (0.175 mL) SUBCUT DAILY #9 12/13/24 mL) subcutaneous pen (Tresiba mL FlexTouch U-200 insulin) ipratropium 0.5 mg-albuterol 3 mg 3 ml inhalation Q6H.RESP #90 mL 12/13/24 (2.5 mg base)/3 mL nebulization soln midodrine 5 mg tablet 5 mg PO TID #90 tabs 12/13/24 nystatin 100,000 unit/gram topical 1 applic topical BID #60 grams 12/13/24 powder (Nystop) potassium chloride 20 mEq 20 meq PO DAILY #30 tabs 12/13/24 tablet,extended release(part/cryst) (Klor-Con M) ranolazine 500 mg tablet,extended 500 mg PO BID #60 tabs 12/13/24 release,12 hr amiodarone 200 mg tablet 100 mg (1/2 x 200 mg) PO DAILY #30 12/16/24 tabs dapagliflozin propanediol 10 mg 10 mg PO DAILY #30 tabs 12/16/24 tablet (Farxiga) sacubitril 24 mg-valsartan 26 mg 0.5 tab PO BID #30 tabs 12/16/24 tablet (Entresto) Allergies Allergy/AdvReac Type Severity Reaction Status Date / Time No Known Allergies Allergy Verified 02/03/25 06:31 Review of Systems Const: Reports: fever(s), body aches, fatigue and malaise; Denies: chills Card: Denies: chest pain Resp: Reports: dyspnea GI: Denies: abdominal pain : Denies: dysuria, urinary frequency or urinary urgency Musc: Reports: back pain; Denies: neck pain Skin/Breast: Denies: rash PFSH ED PFSH: Medical History Dyslipidemia Essential (primary) hypertension COPD (chronic obstructive pulmonary disease) Chronic hypoxic respiratory failure, on home oxygen therapy Diabetes mellitus, type II, insulin dependent CAD (coronary artery disease) Paroxysmal A-fib CKD (chronic kidney disease) CHF (congestive heart failure) Respiratory arrest has required intubation Non-STEMI (non-ST elevated myocardial infarction) Contrast-induced nephropathy Surgical History Hx of hysterectomy Hx of CABG Family History Unknown No problems noted. Social History Smoking and tobacco/nicotine status: former use of tobacco/nicotine Alcohol intake: never Substance/Drug Use: never Physical Exam Const: GENERAL APPEARANCE: cooperative ORIENTATION/CONSCIOUSNESS: Yes awake HENMT: COMMON NORMALS: normocephalic, atraumatic and hearing grossly normal bilaterally HEAD & SCALP: normocephalic and atraumatic Resp: COMMON NORMALS: normal respiratory effort, No retractions, No use of accessory muscles and clear to auscultation bilaterally AUSCULTATION: clear to auscultation bilaterally Cardio: COMMON NORMALS: regular rate, regular rhythm and No murmurs present (Cardio) RATE: regular rate RHYTHM: regular rhythm GI: COMMON NORMALS: Soft to palpation and No hepatosplenomegaly present AUSCULTATION: Yes normoactive bowel sounds PALPATION: Yes Soft to palpation, No Tenderness to palpation present (GI), No Guarding due to palpation present (GI) and Yes No hepatosplenomegaly present Extremity: COMMON NORMALS: normal to inspection, capillary refill normal, no clubbing, cyanosis or edema, no calf tenderness and no pedal edema Skin: COMMON NORMALS: no rashes or lesions noted GENERAL SKIN EXAM: no rashes or lesions noted Course Vital Signs: Vital signs: Vital Signs Temperature 97.5 F L 02/03/25 11:26 Pulse Rate 80 02/03/25 11:26 Respiratory Rate 19 H 02/03/25 11:26 Blood Pressure 108/55 02/03/25 11:26 Pulse Oximetry 97 02/03/25 11:26 Oxygen Delivery Me thod Nasal Cannula 02/03/25 11:26 Oxygen Flow Rate 4 02/03/25 11:26 MDM - Back Pain/Injury Medical Decision Making Patient presented generally not feeling well with her hemoglobin is 8 2 which is a significant drop from previous she is down from 2 days ago at 9.2. Patient had some transient hypotension while she was in the emergency room not recurred. Her lactic acid is slightly up at 2.5 she has a significant UTI. She is complaining of some chronic low back pain. Pain is not characteristic of kidney stone at this time. She is using her usual amount of oxygen to maintain oxygen saturations. She complained of some shortness of breath blood gas did not show any significant abnormalities no CO2 retention. She does not have any wheezing on auscultation. No sign of decompensated heart failure at this time. Will admit the patient for UTI. She may need to be placed back in the [facility]. Medical Records I reviewed the patient's medical records. Labs I reviewed the patient's lab results. 02/03/25 06:40 02/03/25 06:40 Radiology Impressions Chest X-Ray 02/03/25 07:11 IMPRESSION: 1. Low lung volumes. 2. Right basilar airspace disease. 3. Minimal bilateral pleural fluid. Laboratory Results WBC 10.98 10^3/uL (3.29-11.43) 02/03/25 06:40 RBC 3.02 10^6/uL (3.85-5.65) L 02/03/25 06:40 Hgb 8.20 g/dL (11.27-16.99) L 02/03/25 06:40 Hct 27.0 % (36-47) L 02/03/25 06:40 MCV 89.4 fl (85-98) 02/03/25 06:40 MCH 27.2 pg (27-33) 02/03/25 06:40 MCHC 30.4 g/dL (30-55) 02/03/25 06:40 RDW 18.1 % (12.1-15.1) H 02/03/25 06:40 Plt Count 154 10^3/cmm (157-399) L 02/03/25 06:40 MPV 11.8 fL (7.4-10.4) H 02/03/25 06:40 Neut % (Auto) 78.0 % 02/03/25 06:40 Lymph % (Auto) 2.6 % 02/03/25 06:40 [place] % (Auto) 17.9 % 02/03/25 06:40 Eos % (Auto) 0.9 % 02/03/25 06:40 Baso % (Auto) 0.1 % 02/03/25 06:40 Neut # (Auto) 8.56 10^3/uL (1.8-7.7) H 02/03/25 06:40 Lymph # (Auto) 0.3 10^3/uL (0.8-4.8) L 02/03/25 06:40 [place] # (Auto) 2.0 10^3/uL (0.2-0.9) H 02/03/25 06:40 Eos # (Auto) 0.1 10^3/uL (0.0-0.8) 02/03/25 06:40 Baso # (Auto) 0.0 10^3/uL (0.0-0.1) 02/03/25 06:40 Nucleated RBC % (auto) 0 % 02/03/25 06:40 Nucleated RBCs # 0.0 /100WBC 02/03/25 06:40 Specimen Type Arterial 02/03/25 08:53 Sample Site Radial, right 02/03/25 08:53 ABG pH 7.35 (7.35-7.45) 02/03/25 08:53 ABG pCO2 39.0 mmHg (35-45) 02/03/25 08:53 ABG pO2 86.6 mmHg (80.0-100.0) 02/03/25 08:53 ABG PO2/FiO2 Ratio 240 02/03/25 08:53 ABG HCO3 21.6 mmol/L (22-26) L 02/03/25 08:53 ABG O2 Saturation 97.1 02/03/25 08:53 ABG Base Excess -3.6 mmol/L (-2.0-2.0) L 02/03/25 08:53 Tanner Test Pos 02/03/25 08:53 A-a O2 Gradient 15.6 mmHg (5-10) H 02/03/25 08:53 Hematocrit 25.1 % (37-47) L 02/03/25 08:53 Hgb O2 Saturation 98.0 % (95-100) 02/03/25 08:53 Carboxyhemoglobin 0.6 %THgb (0.4-20.1) 02/03/25 08:53 Methemoglobin < 0.0 % (0.4-1.5) L 02/03/25 08:53 Total Hemoglobin 8.2 g/dL (12-16) L 02/03/25 08:53 Sodium 137.0 mmol/L (131-143) 02/03/25 08:53 Potassium 4.6 mmol/L (3.5-5.0) 02/03/25 08:53 Glucose 245.0 mg/dL (70-115) H 02/03/25 08:53 Ionized Calcium 1.2 mmol/L (1.1-1.4) 02/03/25 08:53 O2 Delivery Device Nc 02/03/25 08:53 O2 Liters/Min 4.0 % 02/03/25 08:53 FiO2 36.0 % 02/03/25 08:53 Automatic Presser ID glc 02/03/25 08:53 Sodium 137 mmol/L (136-145) 02/03/25 06:40 Potassium 5.3 mmol/L (3.5-5.1) H 02/03/25 06:40 Chloride 101 mmol/L (98-107) 02/03/25 06:40 Carbon Dioxide 22 mmol/L (22-29) 02/03/25 06:40 Anion Gap 19.3 (5-19) H 02/03/25 06:40 BUN 24 mg/dL (8-23) H 02/03/25 06:40 Creatinine 0.9 mg/dL (0.5-0.9) 02/03/25 06:40 GFR Calculation Not Reportable 02/03/25 06:40 Glucose 388 mg/dL (65-115) H 02/03/25 06:40 POC Glucose 363 mg/dL (70-110) H 02/03/25 08:24 Calculated Osmolality 304 mOsm/kg (285-295) H 02/03/25 06:40 Lactic Acid 2.8 mmol/L (0.5-2.2) H 02/03/25 06:40 Calcium 8.5 mg/dL (8.5-10.5) 02/03/25 06:40 Total Bilirubin 0.2 mg/dL (0.15-1.2) 02/03/25 06:40 AST 11 U/L (0-32) 02/03/25 06:40 ALT 9 U/L (0-33) 02/03/25 06:40 Alkaline Phosphatase 148 U/L (35-105) H 02/03/25 06:40 Total Protein 6.5 g/dL (6.6-8.7) L 02/03/25 06:40 Albumin 3.3 g/dL (3.5-5.2) L 02/03/25 06:40 Globulin 3.2 g/dL (1.3-4.6) 02/03/25 06:40 Ser , Semi-Qnt Cancelled 02/03/25 06:40 Urine Color Yellow (Yellow) 02/03/25 06:50 Urine Appearance Cloudy (CLEAR) A 02/03/25 06:50 Urine pH 5.5 (5-7) 02/03/25 06:50 Ur Specific [place] 1.032 (1.005-1.030) H 02/03/25 06:50 Urine Protein Trace (Negative) A 02/03/25 06:50 Urine Glucose (UA) 3+ (Normal) H 02/03/25 06:50 Urine Ketones Trace (Negative) 02/03/25 06:50 Urine Blood 2+ (Negative) A 02/03/25 06:50 Urine Nitrate Negative (Negative) 02/03/25 06:50 Urine Bilirubin Negative (Negative) 02/03/25 06:50 Urine Urobilinogen 0.2 mg/dL (Negative) 02/03/25 06:50 Ur Leukocyte Esterase 1+ (Negative) A 02/03/25 06:50 Urine RBC 6-10 /hpf (0-2) 02/03/25 06:50 Urine WBC >100 /hpf (0-5) H 02/03/25 06:50 Ur Squamous Epith Cells 0-5 /hpf (0-5) 02/03/25 06:50 Amorphous Sediment Not Reportable 02/03/25 06:50 Urine Bacteria None seen /hpf (NONE) 02/03/25 06:50 Hyaline Casts 0.81 /lpf 02/03/25 06:50 Serum Ketones Negative (Negative) 02/03/25 06:40 All radiology interpretation(s) finalized by discharge EKG Data EKG 1: Interpretation: EKG 922 2025-02-21 sinus rhythm. Right bundle branch block. No acute ST elevation. Nonspecific ST wave changes. 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
[2025-02-03 06:50] LABS: Hematocrit 27.0 % (36-47); Hemoglobin 8.20 g/dL (11.27-16.99); Mean Corpuscular HGB Conc 30.4 g/dL (30-55); Mean Corpuscular Hemoglobin 27.2 pg (27-33); Mean Corpuscular Volume 89.4 fl (85-98); Nucleated Red Blood Cells % 0 %; Platelet Count 154 10^3/cmm (157-399); Red Blood Count 3.02 10^6/uL (3.85-5.65); White Blood Count 10.98 10^3/uL (3.29-11.43)
[2025-02-03 07:01] LABS: Ketone (Acetest) Serum Negative (Negative)
[2025-02-03 07:08] LABS: Alanine Aminotransferase 9 U/L (0-33); Albumin Level 3.3 g/dL (3.5-5.2); Alkaline Phosphatase 148 U/L (35-105); Anion Gap 19.3 (5-19); Aspartate Amino Transferase 11 U/L (0-32); Blood Urea Nitrogen 24 mg/dL (8-23); Calcium 8.5 mg/dL (8.5-10.5); Carbon Dioxide 22 mmol/L (22-29); Chloride 101 mmol/L (98-107); Globulin 3.2 g/dL (1.3-4.6); Glucose 388 mg/dL (65-115); Osmolality Calculated 304 mOsm/kg (285-295); Potassium 5.3 mmol/L (3.5-5.1); Sodium 137 mmol/L (136-145); Total Protein 6.5 g/dL (6.6-8.7)
[2025-02-03 07:09] LABS: Lactic Sepsis W/Reflex 2.8 mmol/L (0.5-2.2)
--- NOTE | 2025-02-03 07:11 | XRR_ITS ---
PROCEDURE INFORMATION: Exam: XR Chest Exam date and time: 02/03/2025 07:27 AM Age: 84 years old Clinical indication: Dyspnea TECHNIQUE: Imaging protocol: Radiologic exam of the chest. Views: 1 view. COMPARISON: CR XR chest 1V portable [id number] 12/09/2024 10:02 AM FINDINGS: Lungs: Right basilar airspace disease. Pleural spaces: Minimal bilateral pleural fluid. Heart/Mediastinum: Cardiac size and configuration is stable. Vasculature: Atherosclerotic vascular disease. Bones/joints: Prior median sternotomy. Degenerative changes of the spine and shoulders. XR/XR chest 1V portable [id number] IMPRESSION: 1. Low lung volumes. 2. Right basilar airspace disease. 3. Minimal bilateral pleural fluid.
[2025-02-03] MEDS: insulin regular-human 100 units/1 mL 10 UNIT IVP (07:13)
[2025-02-03 08:10] LABS: Glucose Urine UA 3+ (Normal); Nitrate Urine Negative (Negative)
[2025-02-03 08:13] LABS: Add Urine Microscopic? YES
[2025-02-03 08:15] LABS: Specific Gravity, Urine 1.032 (1.005-1.030)
[2025-02-03] MEDS: cefTRIAXone 1,000 mg SDV 1000 MG IVP (08:38)
[2025-02-03] MEDS: ondansetron 2 mg/ML SDV 2 mL 4 MG IVP (08:38)
[2025-02-03 08:45] LABS: Reflex Lactate Order REFLEX LACTIC ORDERD
--- NOTE | 2025-02-03 08:57 | PM.HP ---
Providers/Chief Complaint Primary Care Provider: Antonio Delgado MD Chief Complaint: back pain History of Present Illness Sally Henderson is a 84 year old woman with a history of diabetes (with prior hypoglycemia), chronic obstructive pulmonary disease (COPD) on home oxygen via nasal cannula, coronary artery disease (CAD) status post coronary artery bypass grafting (CABG), chronic kidney disease (CKD), congestive heart failure (CHF), paroxysmal atrial fibrillation (AFib) on apixaban (Eliquis), presenting with several days of worsening back pain. Reports pain along the entire spine and lower abdominal pain. Recently informed she has a urinary tract infection (UTI) but has not yet started antibiotics. Endorses burning with urination. Reports difficulty breathing over the past couple of days; cough occurs once in a while and she is bringing up some green phlegm. Vomited at ?[facility]? a few days prior to discharge; denies recent choking with food or drink. Currently using 3?4 L/min nasal cannula oxygen at home for COPD. She was seen in the emergency department yesterday due to hypoglycemia. She had a recent stay at an emergency home ([facility]) and was discharged home; now living with her son in [place] and states he takes good care of her. States she is not ready to change code status and would want resuscitative efforts (CPR) again if needed. Review of Systems Const: Denies: fever(s), chills, body aches or malaise ENMT: Denies: throat pain Card: Denies: chest pain, edema, pre-syncope or dyspnea on exertion Resp: Reports: dyspnea, productive cough and change in phlegm color; Denies: hemoptysis GI: Reports: nausea; Denies: abdominal pain, vomiting, diarrhea, constipation, hematochezia or melena : Denies: flank pain, urinary frequency or hematuria Musc: Reports: back pain; Denies: joint swelling or joint redness Skin/Breast: Denies: rash or new lesions Neuro: Denies: headache(s) or confusion Medications/Allergies Home Medications ?Medication ?Instructions ?Recorded ?Confirmed ?Last Taken ?Type clopidogrel 75 mg tablet 75 mg PO BEDTIME #90 tabs 03/27/24 02/03/25 02/02/25 19:00 Rx atorvastatin 40 mg tablet 40 mg PO QPM 0302/03/25 02/02/25 19:00 History tramadol 50 mg tablet 50 mg PO Q6H PRN Pain 07/18/24 02/03/25 02/02/25 History nebulizer and compressor ([id number] #1 ea 07/23/24 02/03/25 Unknown Rx Nebulizer) VIRY walker #1 ea 11/28/24 02/03/25 Unknown Rx insulin aspart U-100 100 unit/mL See Rx Instructions .Route .COMPLEX 12/06/24 02/03/25 02/02/25 History (3 mL) subcutaneous pen (Novolog FlexPen U-100 Insulin aspart) omeprazole 20 mg capsule,delayed 20 mg PO BID 12/06/24 02/03/25 12/05/24 07:00 History release ondansetron 4 mg disintegrating 4 mg PO Q8H PRN Nausea And Vomiting 12/06/24 02/03/25 02/02/25 History tablet acetaminophen 325 mg tablet 650 mg (2 x 325 mg) PO Q6H PRN 12/13/24 02/03/25 02/02/25 Rx Mild/Mod Pain Or Temp >/= 101 #30 tabs budesonide 0.5 mg/2 mL suspension 0.5 mg (2 mL) inhalation 12/13/24 02/03/25 Unknown Rx for nebulization BID.RESPIRATORY #60 mL furosemide 40 mg tablet 40 mg PO DAILY@0800 #30 tabs 12/13/24 02/03/25 Unknown Rx hydrocodone 5 mg-acetaminophen 325 1 tab PO Q6H PRN Moderate Pain #30 12/13/24 02/03/25 Unknown Rx mg tablet tabs insulin degludec 200 unit/mL (3 35 unit (0.175 mL) SUBCUT DAILY #9 12/13/24 02/03/25 02/02/25 Rx mL) subcutaneous pen (Tresiba mL FlexTouch U-200 insulin) ipratropium 0.5 mg-albuterol 3 mg 3 ml inhalation Q6H.RESP #90 mL 12/13/24 02/03/25 Unknown Rx (2.5 mg base)/3 mL nebulization soln midodrine 5 mg tablet 5 mg PO TID #90 tabs 12/13/24 02/03/25 02/02/25 Rx nystatin 100,000 unit/gram topical 1 applic topical BID #60 grams 12/13/24 02/03/25 Unknown Rx powder (Nystop) potassium chloride 20 mEq 20 meq PO DAILY #30 tabs 12/13/24 02/03/25 02/02/25 Rx tablet,extended release(part/cryst) (Klor-Con M) ranolazine 500 mg tablet,extended 500 mg PO BID #60 tabs 12/13/24 02/03/25 Unknown Rx release,12 hr amiodarone 200 mg tablet 100 mg (1/2 x 200 mg) PO DAILY #30 12/16/24 02/03/25 02/02/25 Rx tabs dapagliflozin propanediol 10 mg 10 mg PO DAILY #30 tabs 12/16/24 02/03/25 02/02/25 Rx tablet (Farxiga) sacubitril 24 mg-valsartan 26 mg 0.5 tab PO BID #30 tabs 12/16/24 02/03/25 02/02/25 Rx tablet (Entresto) glucagon 1 mg solution for 1 mg SUBCUT PRN PRN low blood sugar 02/03/25 02/03/25 Unknown History injection (Glucagon Emergency Kit) Allergies Allergy/AdvReac Type Severity Reaction Status Date / Time No Known Allergies Allergy Verified 02/03/25 06:31 PFSH Acute PFSH: Medical History Dyslipidemia Essential (primary) hypertension COPD (chronic obstructive pulmonary disease) Chronic hypoxic respiratory failure, on home oxygen therapy Diabetes mellitus, type II, insulin dependent CAD (coronary artery disease) Paroxysmal A-fib CKD (chronic kidney disease) CHF (congestive heart failure) Respiratory arrest has required intubation Non-STEMI (non-ST elevated myocardial infarction) Contrast-induced nephropathy Surgical History Hx of hysterectomy Hx of CABG Family History Unknown No problems noted. Social History Smoking and tobacco/nicotine status: former use of tobacco/nicotine Alcohol intake: never Substance/Drug Use: never Vitals/I&O/Wt Last Vital Signs Temp 99.7 F H 02/03/25 06:29 Pulse 91 02/03/25 07:50 Resp 18 02/03/25 06:43 BP 127/49 02/03/25 07:50 Pulse Ox 96 02/03/25 07:50 O2 Del Method Nasal Cannula 02/03/25 07:50 O2 Flow Rate 4 02/03/25 07:50 02/02/25 02/03/25 02/03/25 22:59 06:59 14:59 Intake Total 0 / 0 Balance 0 / 0 Physical Exam Const: COMMON NORMALS: patient oriented x3 and alert GENERAL APPEARANCE: cooperative ORIENTATION/CONSCIOUSNESS: Yes awake HENMT: COMMON NORMALS: oropharynx normal Neck/C-Spine: COMMON NORMALS: no JVD Resp: COMMON NORMALS: normal respiratory effort AUSCULTATION: diminished lung sounds Cardio: COMMON NORMALS: no JVD, regular rhythm, S1 normal heart sound present, S2 normal heart sound present and No murmurs present (Cardio) RHYTHM: regular rhythm HEART SOUNDS: S1 normal heart sound present and S2 normal heart sound present GI: COMMON NORMALS: Normal to inspection, nondistended, normoactive bowel sounds present, Soft to palpation and non-tender PALPATION: Yes Soft to palpation Extremity: COMMON NORMALS: no joint enlargement and no pedal edema Neuro: COMMON NORMALS: patient oriented x3 and moves all extremities SENSORIUM/ORIENTATION: Yes alert Skin: COMMON NORMALS: no rashes or lesions noted NARRATIVE SKIN EXAM: L foot cgronic wounds of heel and at the site of prior left hallux amputation GENERAL SKIN EXAM: no rashes or lesions noted Data 02/03/25 06:40 02/03/25 06:40 Micro: Microbiology 02/03/25 07:14 Blood Culture - Preliminary Blood SPECIMEN COLLECTED 02/03/25 07:10 Blood Culture - Preliminary Blood SPECIMEN COLLECTED A&P Assessment and plan 1. UTI (urinary tract infection): UTI diagnosis prior to this visit and has not yet started antibiotics; endorses burning with urination and lower abdominal pain. - Continue with antibiotics for the urinary infection. Follow-up urine culture. 2. Pneumonia: Suspected early right lower lobe pneumonia. Denies symptoms of aspiration. No leukocytosis but noted low-grade fever. Having productive cough. Clear sputum culture. Collect urine bacterial antigens. MRSA PCR. Continue ceftriaxone, azithromycin. Monitor for risk of QT prolongation. Check EKG. 3. COPD (chronic obstructive pulmonary disease): Severe exacerbation of COPD with dyspnea, productive cough, change in color of phlegm. Increased oxygen requirement 4 L nasal cannula compared to baseline 3. Breathing difficulty with green sputum : Reports difficulty breathing for the past couple of days; occasional cough with green phlegm; chest X-ray discussed as possibly showing right lower lung airspace disease, concerning for developing pneumonia. - Add one more antibiotic to treat probable pneumonia. - Monitor oxygen. - Collect sputum sample if the patient is able to provide one. Cough, intermittent with green phlegm : Occasional cough producing green sputum. - Collect sputum sample if the patient is able to provide one. 4. Diabetes mellitus, type II, insulin dependent: Monitor POC glucose. Give sliding scale insulin. Continue long acting insulin. Hypoglycemia protocol with prior episodes of hypoglycemia. Plan: Back pain : Patient reports several days of worsening back pain along the entire spine; also lower abdominal pain. Chronic back pain, likely exacerbated by UTI with lower abdominal pain. Hypoglycemia (recent ED visit) : Seen in the ED yesterday for hypoglycemia. 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 Follows with podiatry. Recent debridement by podiatry with planned follow-up. Dressing was changed in ED. Follow-up : Patient expresses desire to remain full code; previously had CPR and wants resuscitative efforts again if needed. - Confirm full code status (patient states she wants CPR if needed). - Coronary artery disease (CAD) - Status post coronary artery bypass grafting (CABG) - Chronic kidney disease (CKD) - Congestive heart failure (CHF) - Atrial fibrillation (AFib), anticoagulated with apixaban (Eliquis) - Severe pulmonary hypertension (per recent echocardiogram) - History of cardiac arrest Discussed with her son PDMP PDMP Reviewed: Not Reviewed Attestations Medical Necessity Statement*: Place in observation for additional assessment management of UTI, COPD with severe exacerbation, pneumonia in a lady with underlying DM2, CKD, CHF, CAD, A-fib, additional comorbidities. Diagnoses UTI (urinary tract infection) N39.0 Pneumonia J18.9 COPD (chronic obstructive pulmonary disease) J44.9 Diabetes mellitus, type II, insulin dependent E11.9; Z79.4
[2025-02-03 09:04] LABS: ABG PCO2 39.0 mmHg (35-45); ABG PH Result 7.35 (7.35-7.45); Alveolar-Arterial Oxygen Gradi 15.6 mmHg (5-10); Arterial Blood Gas Hematocrit 25.1 % (37-47); Blood Gas Allen Test Pos; Blood Gas LPM 4.0 %; Blood Gas Operator Identificat glc; Blood Gas Sample Site Radial, right; Blood Gas Sample Type Arterial; Carboxyhemoglobin 0.6 %THgb (0.4-20.1); Glucose Level-ABG 245.0 mg/dL (70-115); HCO3 ABG 21.6 mmol/L (22-26); Ionized Calcium Level - ABG 1.2 mmol/L (1.1-1.4); Methemoglobin < 0.0 % (0.4-1.5); Oxygen Saturation ABG 97.1; PO2 ABG 86.6 mmHg (80.0-100.0); PO2 FiO2 Ratio Arterial Blood 240; Potassium Level - ABG 4.6 mmol/L (3.5-5.0); Sodium Level - ABG 137.0 mmol/L (131-143)
[2025-02-03 10:04] LABS: Lactic Acid level (Lactate) 3.2 mmol/L (0.5-2.2)
--- NOTE | 2025-02-03 10:10 | ECG_ITS ---
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 Measurements Intervals [place] Rate: 88 P: 46 DC: 162 QRS: -30 QRSD: 122 T: -74 QT: 413 QTc: 501 Interpretive Statements SINUS RHYTHM BORDERLINE LEFT AXIS DEVIATION [QRS AXIS < -20] RIGHT BUNDLE BRANCH BLOCK [120+ ms QRS DURATION, UPRIGHT V1, 40+ ms S IN I/aVL/V4/V5/V6] Diffuse non specific ST T changes Compared to ECG 12/07/2024 02:28:00 Right bundle-branch block now present Ventricular premature complex(es) no longer present Intraventricular conduction delay no longer present T-wave abnormality no longer present Possible ischemia no longer present Electronically Signed On 02-03-2025 20:28:31 CDT by Angela Lopez M.D. [email or web address]
[2025-02-03] MEDS: methylPREDNISolone sod succ 40 mg/mL INJ 30 MG IVP ×3 (10:58→22:28)
[2025-02-03] MEDS: insulin glargine 100 units/1 mL 28 UNIT SUBCUT (11:41)
[2025-02-03 14:11] LABS: MRSA PCR OZH (swab) MRSA Detected (Not Detecte)
[2025-02-03] MEDS: HYDROcodone-acetaminophen 5-325 mg Tablet 1 TAB PO (21:00)
[2025-02-03] MEDS: APIXABAN 2.5 MG TABLET PO (22:22)
[2025-02-04] VITALS (13 sets, daily range): BP systolic 126–142; BP diastolic 82–94; PULSE 80–88; RESP 15–22; TEMP 36.3–36.8; O2SAT 94–100
[2025-02-04] MEDS: HYDROcodone-acetaminophen 5-325 mg Tablet 1 TAB PO ×2 (03:05→20:18)
[2025-02-04] MEDS: methylPREDNISolone sod succ 40 mg/mL INJ 30 MG IVP ×4 (04:19→21:01)
--- NOTE | 2025-02-04 04:36 | PC.ADMIT ---
8 [facility] Admission Note: The patient,Sally Henderson,84 y/o, was given written information regarding hospital policies, unit procedures and contact persons. Patient's smoking status: former smoker. Vital Signs - 8 hr 02/03/25 22:00 02/03/25 23:27 02/04/25 03:42 Temperature 98.0 F 97.4 F L Pulse Rate 89 87 85 Respiratory Rate 16 18 Blood Pressure 144/80 142/94 Pulse Oximetry 99 99 Oxygen Delivery Method Room Air Nasal Cannula Oxygen Flow Rate 4
--- NOTE | 2025-02-04 04:37 | PC.NURSE ---
Bruises noted to bilateral arms.
[2025-02-04 04:50] LABS: Hematocrit 26.6 % (36-47); Hemoglobin 8.20 g/dL (11.27-16.99); Mean Corpuscular HGB Conc 30.8 g/dL (30-55); Mean Corpuscular Hemoglobin 26.9 pg (27-33); Mean Corpuscular Volume 87.2 fl (85-98); Nucleated Red Blood Cells % 0 %; Platelet Count 200 10^3/cmm (157-399); Red Blood Count 3.05 10^6/uL (3.85-5.65); White Blood Count 9.40 10^3/uL (3.29-11.43)
[2025-02-04 05:24] LABS: Alanine Aminotransferase 21 U/L (0-33); Albumin Level 3.5 g/dL (3.5-5.2); Alkaline Phosphatase 141 U/L (35-105); Anion Gap 17.3 (5-19); Aspartate Amino Transferase 21 U/L (0-32); Blood Urea Nitrogen 25 mg/dL (8-23); Calcium 8.9 mg/dL (8.5-10.5); Carbon Dioxide 23 mmol/L (22-29); Chloride 104 mmol/L (98-107); Globulin 3.5 g/dL (1.3-4.6); Glucose 200 mg/dL (65-115); Osmolality Calculated 298 mOsm/kg (285-295); Potassium 5.3 mmol/L (3.5-5.1); Sodium 139 mmol/L (136-145); Total Protein 7.0 g/dL (6.6-8.7)
[2025-02-04] MEDS: APIXABAN 2.5 MG TABLET PO ×2 (08:37→18:04)
[2025-02-04] MEDS: cefTRIAXone 1,000 mg SDV 1000 MG IVP (08:37)
[2025-02-04] MEDS: insulin glargine 100 units/1 mL 28 UNIT SUBCUT (08:37)
--- NOTE | 2025-02-04 08:57 | P.PN_ITS ---
Subjective 2 Subjective: She is feeling little bit better subjectively. She is not bringing up phlegm. Vitals/I&O/Wt Last Vital Signs Temp 98.2 F 02/04/25 07:59 Pulse 84 02/04/25 08:23 Resp 18 02/04/25 08:23 BP 136/94 02/04/25 07:59 Pulse Ox 94 02/04/25 08:23 O2 Del Method Nasal Cannula 02/04/25 08:23 O2 Flow Rate 4 02/04/25 08:23 02/03/25 02/04/25 02/04/25 22:59 06:59 14:59 Intake Total 240 / 1490 120 / 120 Balance 240 / 1490 120 / 120 Weight last 48 hrs Weight 75.835 kg Physical Exam 2 Narrative: Having a breathing treatment Const: COMMON NORMALS: patient oriented x3 and alert GENERAL APPEARANCE: c ooperative ORIENTATION/CONSCIOUSNESS: Yes awake HENMT: COMMON NORMALS: oropharynx normal Neck/C-Spine: COMMON NORMALS: no JVD Resp: COMMON NORMALS: normal respiratory effort AUSCULTATION: wheezes and diminished lung sounds Cardio: COMMON NORMALS: no JVD, regular rhythm, S1 normal heart sound present, S2 normal heart sound present and No murmurs present (Cardio) RHYTHM: regular rhythm HEART SOUNDS: S1 normal heart sound present and S2 normal heart sound present GI: COMMON NORMALS: Normal to inspection, nondistended, normoactive bowel sounds present, Soft to palpation and non-tender PALPATION: Yes Soft to palpation Extremity: COMMON NORMALS: no joint enlargement and no pedal edema Neuro: COMMON NORMALS: patient oriented x3 and moves all extremities S ENSORIUM/ORIENTATION: Yes alert Skin: COMMON NORMALS: no rashes or lesions noted NARRATIVE SKIN EXAM: L foot cgronic wounds of heel and at the site of prior left hallux amputation GENERAL SKIN EXAM: no rashes or lesions noted Data 02/04/25 03:50 02/04/25 03:50 Micro: Microbiology 02/03/25 07:14 Blood Culture - Preliminary Blood NEGATIVE TO DATE 02/03/25 07:10 Blood Culture - Preliminary Blood NEGATIVE TO DATE 02/03/25 13:35 Legionella Urinary Antigen - Final Urine,Voided 02/03/25 13:35 Bacterial Antigens - Final Urine,Voided A&P Assessment and plan 1. UTI (urinary tract infection): Reviewed urine culture, pending. Reviewed vitals, CBC, without leukocytosis. Afebrile. Subjectively feeling a bit better UTI diagnosis prior to this visit and has not yet started antibiotics; endorses burning with urination and lower abdominal pain. - Continue with antibiotics for the urinary infection. Follow-up urine culture. 2. Pneumonia: Discussed with RT, sputum culture could not yet be obtained. She has not been producing much phlegm. She is feeling somewhat better subjectively. She does still sound diminished with some wheezing. Currently undergoing a breathing treatment. Reviewed urine bacterial antigens. Reviewed MRSA PCR, MRSA was positive. In case of lack of improvement may have to broaden coverage to cover for MRSA as well. Suspected early right lower lobe pneumonia. Denies symptoms of aspiration. No leukocytosis but noted low-grade fever on presentation. Continue ceftriaxone, azithromycin. Monitor for risk of QT prolongation. Reviewed EKG. 3. Panlobular emphysema: Severe exacerbation of COPD with dyspnea, productive cough, change in color of phlegm. Increased oxygen requirement 4 L nasal cannula compared to baseline 3. Breathing difficulty with green sputum : No further phlegm today. Sputum culture so far collected. With bronchospastic component to COPD exacerbation with wheezing, diminished air entry. Continue breathing treatments. Continue Solu-Medrol. Monitor for risk of hyperglycemia, hypertension, gastritis, encephalopathy with IV steroids. Reviewed blood glucose. Will adjust insulin dose. Continue ceftriaxone and azithromycin. Reviewed EKG. Reports difficulty breathing for the past couple of days; occasional cough with green phlegm; chest X-ray discussed as possibly showing right lower lung airspace disease, concerning for developing pneumonia. - Add one more antibiotic to treat probable pneumonia. - Monitor oxygen. - Collect sputum sample if the patient is able to provide one. Cough, intermittent with green phlegm : Occasional cough producing green sputum on admit. - Collect sputum sample if the patient is able to provide one. 4. Diabetes mellitus, type II, insulin dependent: Monitor POC glucose. Give sliding scale insulin. Continue long acting insulin. Hypoglycemia protocol with prior episodes of hypoglycemia. Reviewed POC glucose. Noted with hyperglycemia. Will increase long-acting insulin to 30 units. Continue sliding scale 7. Monitor glucose. Plan: Back pain : Patient reports several days of worsening back pain along the entire spine; also lower abdominal pain. Chronic back pain, likely exacerbated by UTI with lower abdominal pain and cough. Hypoglycemia (recent ED visit) : Monitor for risk of hypoglycemia. Hypoglycemia protocol. 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 Follows with podiatry. Recent debridement by podiatry with planned follow-up. Dressing was changed in ED. Follow-up : Patient expresses desire to remain full code; previously had CPR and wants resuscitative efforts again if needed. - Confirm full code status (patient states she wants CPR if needed). - Coronary artery disease (CAD) - Status post coronary artery bypass grafting (CABG) - Chronic kidney disease (CKD) - Congestive heart failure (CHF) - Atrial fibrillation (AFib), anticoagulated with apixaban (Eliquis) - Severe pulmonary hypertension (per recent echocardiogram) - History of cardiac arrest Discussed with her son PDMP PDMP Reviewed: Not Reviewed Attestations 2 Medical Necessity Statement*: Requiring admission of over 2 midnights for assessment and management of pneumonia with worsening hypoxia, severe exacerbation of COPD, UTI. Diagnoses UTI (urinary tract infection) N39.0 Pneumonia J18.9 Panlobular emphysema J43.1 COPD type: emphysema Emphysema type: panlobular Diabetes mellitus, type II, insulin dependent E11.9; Z79.4
--- NOTE | 2025-02-04 10:57 | PC.CHAP ---
Pastoral Care Encounter/Spiritual Assessment Type of Contact [] Declined mobile patrol officer visit [] Patient/Family/Request visit [] Outpatient visit [] Follow-up visit [] Physician referral [] Code/Alert [] Routine visit [] Staff referral [] Actively dying [x] Patient sleeping [] Family support [] [] Out of room [] Palliative care [] [] Receiving care in room [] Pre-surgical visit [] Trauma [] Long length of stay [] ICU visit [] Other: Relational/Emotional Strength [] Patient feels connected with others/family/visitors/staff [] Distress [] Loneliness/isolation [] Abandonment Spirituality of Patient [] Person of [place] [] Attends Church of their [place] [] Believes in Prayer [] Reads Bible or Spiritism materials [] There are Spiritual issues to be addressed Wellfield Technician 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 [] Prayer [] Active listening [] Non-anxious presence [] Spiritual/emotional support [] Crisis/trauma care [] Spiritual counseling [] Bereavement support [] Provided bereavement packet [] Provided Bible/devotional materials [] Provided toy/stuffed animal, coloring book to patient or family member [] Provided Communion [] Anointing/[place] [] Salvation [] Completed spiritual assessment [] Other: Impact on Illness or Injury [] Angry [] Fearful [] Anxious [] Often cries [] Exhaustion [] Unable to work [] Unable to attend congregational [] Unable to walk/stand [] Unable to read [] Unable to drive [] Unable to eat/drink [] Unable to sleep [] Unable to be with family [] Patient intubated [] Other: Summary Time spent with patient
[2025-02-05] VITALS (10 sets, daily range): BP systolic 96–141; BP diastolic 56–91; PULSE 70–89; RESP 15–22; TEMP 36.4–36.6; O2SAT 93–100
[2025-02-05] MEDS: HYDROcodone-acetaminophen 5-325 mg Tablet 1 TAB PO ×3 (03:32→17:24)
[2025-02-05] MEDS: methylPREDNISolone sod succ 40 mg/mL INJ 30 MG IVP ×4 (03:33→21:30)
[2025-02-05 04:20] LABS: Hematocrit 25.9 % (36-47); Hemoglobin 8.20 g/dL (11.27-16.99); Mean Corpuscular HGB Conc 31.7 g/dL (30-55); Mean Corpuscular Hemoglobin 27.4 pg (27-33); Mean Corpuscular Volume 86.6 fl (85-98); Nucleated Red Blood Cells % 0 %; Platelet Count 248 10^3/cmm (157-399); Red Blood Count 2.99 10^6/uL (3.85-5.65); White Blood Count 14.57 10^3/uL (3.29-11.43)
[2025-02-05] MEDS: APIXABAN 2.5 MG TABLET PO ×2 (04:22→17:24)
[2025-02-05 04:43] LABS: Alanine Aminotransferase 70 U/L (0-33); Albumin Level 3.5 g/dL (3.5-5.2); Alkaline Phosphatase 160 U/L (35-105); Anion Gap 20.1 (5-19); Aspartate Amino Transferase 77 U/L (0-32); Blood Urea Nitrogen 30 mg/dL (8-23); Calcium 8.8 mg/dL (8.5-10.5); Carbon Dioxide 22 mmol/L (22-29); Chloride 101 mmol/L (98-107); Creatinine Clr Calc Pharmacy 47.2054; Globulin 3.2 g/dL (1.3-4.6); Glucose 160 mg/dL (65-115); Osmolality Calculated 296 mOsm/kg (285-295); Potassium 5.1 mmol/L (3.5-5.1); Sodium 138 mmol/L (136-145); Total Protein 6.7 g/dL (6.6-8.7)
--- NOTE | 2025-02-05 08:21 | P.PN_ITS ---
Subjective 2 Subjective: She is feeling worse today. She is not feeling well. Complaining of generalized malaise and continued symptoms from yesterday with cough. Vitals/I&O/Wt Last Vital Signs Temp 97.5 F L 02/05/25 07:17 Pulse 76 02/05/25 07:17 Resp 22 H 02/05/25 07:17 BP 141/91 02/05/25 07:17 Pulse Ox 100 02/05/25 07:17 O2 Del Method Nasal Cannula 02/05/25 07:17 O2 Flow Rate 4 02/05/25 03:07 02/04/25 02/05/25 02/05/25 22:59 06:59 14:59 Intake Total 180 / 550 Output Total 178 / 278 Balance 180 / 450 -178 / 272 Weight last 48 hrs Weight 79.549 kg Weight 75.835 kg Physical Exam 2 Const: COMMON NORMALS: patient oriented x3 and alert GENERAL APPEARANCE: c ooperative ORIENTATION/CONSCIOUSNESS: Yes awake HENMT: COMMON NORMALS: oropharynx normal Neck/C-Spine: COMMON NORMALS: no JVD Resp: COMMON NORMALS: normal respiratory effort AUSCULTATION: no wheezes and diminished lung sounds Cardio: COMMON NORMALS: no JVD, regular rhythm, S1 normal heart sound present, S2 normal heart sound present and No murmurs present (Cardio) RHYTHM: regular rhythm HEART SOUNDS: S1 normal heart sound present and S2 normal heart sound present GI: COMMON NORMALS: Normal to inspection, nondistended, normoactive bowel sounds present, Soft to palpation and non-tender PALPATION: Yes Soft to palpation Extremity: COMMON NORMALS: no joint enlargement and no pedal edema Neuro: COMMON NORMALS: patient oriented x3 and moves all extremities S ENSORIUM/ORIENTATION: Yes alert Skin: COMMON NORMALS: no rashes or lesions noted NARRATIVE SKIN EXAM: L foot chronic wounds of heel and at the site of prior left hallux amputation GENERAL SKIN EXAM: no rashes or lesions noted Data 02/05/25 03:12 02/05/25 03:12 Micro: Microbiology 02/04/25 09:03 Gram Stain - Final Sputum - Expectorated Sputum 02/03/25 06:50 Urine Culture - Preliminary Urine,Clean Catch 02/03/25 07:14 Blood Culture - Preliminary Blood NEGATIVE TO DATE 02/03/25 07:10 Blood Culture - Preliminary Blood NEGATIVE TO DATE A&P Assessment and plan 1. Pneumonia: She is feeling worse today. With persistent symptoms. Noted persistent requirement of 4 L of oxygen. Reviewed vitals, CBC, blood culture, urine bacterial options, sputum culture. Noted some gram-positive rods, few yeast. MRSA PCR was positive, will broaden with MRSA coverage due to lack of improvement so far. Obtain respiratory panel for flu/COVID/RSV. Discussed with nursing, disease case manager. Suspected early right lower lobe pneumonia. Denies symptoms of aspiration. No leukocytosis but noted low-grade fever on presentation. Continue ceftriaxone, azithromycin. Monitor for risk of QT prolongation. 2. Panlobular emphysema: Continue IV corticosteroids, broaden antibiotics as above. Obtain viral panel. Severe exacerbation of COPD with dyspnea, productive cough, change in color of phlegm. Increased oxygen requirement 4 L nasal cannula compared to baseline 3. Breathing difficulty with green sputum : No further phlegm today. Sputum culture so far collected. With bronchospastic component to COPD exacerbation with wheezing, diminished air entry. Continue breathing treatments. Continue Solu-Medrol. Monitor for risk of hyperglycemia, hypertension, gastritis, encephalopathy with IV steroids. Reviewed blood glucose. Will adjust insulin dose. Continue ceftriaxone and azithromycin. Reviewed EKG. Reports difficulty breathing for the past couple of days; occasional cough with green phlegm; chest X-ray discussed as possibly showing right lower lung airspace disease, concerning for developing pneumonia. - Add one more antibiotic to treat probable pneumonia. - Monitor oxygen. - Collect sputum sample if the patient is able to provide one. Cough, intermittent with green phlegm : Occasional cough producing green sputum on admit. - Collect sputum sample if the patient is able to provide one. 3. UTI (urinary tract infection): Reviewed urine culture, pending. Reviewed vitals, CBC, without leukocytosis. Afebrile. Subjectively feeling a bit better UTI diagnosis prior to this visit and has not yet started antibiotics; endorses burning with urination and lower abdominal pain. - Continue with antibiotics for the urinary infection. Follow-up urine culture. 4. Diabetes mellitus, type II, insulin dependent: Reviewed POC glucose. Give sliding scale insulin. Increase up to 32 units on long acting insulin. Hypoglycemia protocol with prior episodes of hypoglycemia. Reviewed POC glucose. Noted with hyperglycemia. Continue sliding scale. Monitor glucose. Plan: Back pain : Patient reports several days of worsening back pain along the entire spine; also lower abdominal pain. Chronic back pain, likely exacerbated by UTI with lower abdominal pain and cough. Hypoglycemia (recent ED visit) : Monitor for risk of hypoglycemia. Hypoglycemia protocol. 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 Follows with podiatry. Recent debridement by podiatry with planned follow-up. Dressing was changed in ED. Follow-up : Patient expresses desire to remain full code; previously had CPR and wants resuscitative efforts again if needed. - Confirm full code status (patient states she wants CPR if needed). - Coronary artery disease (CAD) - Status post coronary artery bypass grafting (CABG) - Chronic kidney disease (CKD) - Congestive heart failure (CHF) - Atrial fibrillation (AFib), anticoagulated with apixaban (Eliquis) - Severe pulmonary hypertension (per recent echocardiogram) - History of cardiac arrest Discussed with her son PDMP PDMP Reviewed: Not Reviewed Attestations 2 Medical Necessity Statement*: Continue admission for assessment and management of pneumonia with worsening hypoxia, severe exacerbation of COPD, UTI. and High MDM includes amount and/or complexity of data reviewed/ordered [ resulted lab(s)/test(s), ordered lab(s)/test(s) and other healthcare professional discussion] and described risk of complication, morbidity or mortality of management as documented Diagnoses Pneumonia J18.9 Panlobular emphysema J43.1 COPD type: emphysema Emphysema type: panlobular UTI (urinary tract infection) N39.0 Diabetes mellitus, type II, insulin dependent E11.9; Z79.4
[2025-02-05] MEDS: insulin glargine 100 units/1 mL 30 UNIT SUBCUT (09:08)
[2025-02-05] MEDS: cefTRIAXone 1,000 mg SDV 1000 MG IVP (09:10)
[2025-02-05] MEDS: linezolid premix 600 MG/300 ML PREMIX 300 MG IV ×2 (09:23→20:03)
--- NOTE | 2025-02-05 09:46 | PC.CHAP ---
Pastoral Care Encounter/Spiritual Assessment Type of Contact [] Declined handstitching machine collar feller visit [] Patient/Family/Request visit [] Outpatient visit [] Follow-up visit [] Physician referral [] Code/Alert [] Routine visit [] Staff referral [] Actively dying [] Patient sleeping [] Family support [] [] Out of room [] Palliative care [] [x] Receiving care in room [] Pre-surgical visit [] Trauma [] Long length of stay [] ICU visit [] Other: Relational/Emotional Strength [] Patient feels connected with others/family/visitors/staff [] Distress [] Loneliness/isolation [] Abandonment Spirituality of Patient [] Person of [place] [] Attends Denominational of their [place] [] Believes in Prayer [] Reads Bible or Restoration materials [] There are Spiritual issues to be addressed Certification And Selection Specialist 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 [] Prayer [] Active listening [] Non-anxious presence [] Spiritual/emotional support [] Crisis/trauma care [] Spiritual counseling [] Bereavement support [] Provided bereavement packet [] Provided Bible/devotional materials [] Provided toy/stuffed animal, coloring book to patient or family member [] Provided Communion [] Anointing/[place] [] Salvation [] Completed spiritual assessment [] Other: Impact on Illness or Injury [] Angry [] Fearful [] Anxious [] Often cries [] Exhaustion [] Unable to work [] Unable to attend yarsanism [] Unable to walk/stand [] Unable to read [] Unable to drive [] Unable to eat/drink [] Unable to sleep [] Unable to be with family [] Patient intubated [] Other: Summary Time spent with patient
[2025-02-05] MEDS: ondansetron 2 mg/ML SDV 2 mL 4 MG IVP (11:27)
[2025-02-05 11:39] LABS: Respiratory Syncytial Virus Ce NEGATIVE (Negative); SARS-CoV-2 PCR NEGATIVE (Negative)
[2025-02-06] VITALS (8 sets, daily range): BP systolic 99–124; BP diastolic 62–85; PULSE 70–79; RESP 14–18; TEMP 36.3–37; O2SAT 70–100; BMI 34.8
[2025-02-06] MEDS: HYDROcodone-acetaminophen 5-325 mg Tablet 1 TAB PO ×2 (00:56→11:55)
[2025-02-06] MEDS: APIXABAN 2.5 MG TABLET PO (04:16)
[2025-02-06] MEDS: methylPREDNISolone sod succ 40 mg/mL INJ 30 MG IVP ×2 (04:16→10:57)
[2025-02-06 05:08] LABS: Hematocrit 25.3 % (36-47); Hemoglobin 8.10 g/dL (11.27-16.99); Mean Corpuscular HGB Conc 32.0 g/dL (30-55); Mean Corpuscular Hemoglobin 27.6 pg (27-33); Mean Corpuscular Volume 86.1 fl (85-98); Nucleated Red Blood Cells % 0.9 %; Platelet Count 313 10^3/cmm (157-399); Red Blood Count 2.94 10^6/uL (3.85-5.65); White Blood Count 15.83 10^3/uL (3.29-11.43)
[2025-02-06 05:26] LABS: Alanine Aminotransferase 107 U/L (0-33); Albumin Level 3.2 g/dL (3.5-5.2); Alkaline Phosphatase 207 U/L (35-105); Anion Gap 16.9 (5-19); Aspartate Amino Transferase 70 U/L (0-32); Blood Urea Nitrogen 37 mg/dL (8-23); Calcium 8.6 mg/dL (8.5-10.5); Carbon Dioxide 24 mmol/L (22-29); Chloride 99 mmol/L (98-107); Creatinine Clr Calc Pharmacy 41.8992; Globulin 3.1 g/dL (1.3-4.6); Glucose 208 mg/dL (65-115); Osmolality Calculated 295 mOsm/kg (285-295); Potassium 4.9 mmol/L (3.5-5.1); Sodium 135 mmol/L (136-145); Total Protein 6.3 g/dL (6.6-8.7)
[2025-02-06] MEDS: cefTRIAXone 1,000 mg SDV 1000 MG IVP (08:13)
[2025-02-06] MEDS: insulin glargine 100 units/1 mL 32 UNIT SUBCUT (08:16)
[2025-02-06] MEDS: linezolid premix 600 MG/300 ML PREMIX 300 MG IV (08:17)
--- NOTE | 2025-02-06 11:14 | PM.DCS ---
Discharge Providers Date of Admission: 02/04/25 11:24 Date of Discharge: February 06, 2025 Attending Provider at Admission: Willian Richard Attending Provider at Discharge: Willian Richard Primary Care Provider: Antonio Delgado MD Diagnoses at Discharge Discharge Diagnosis 1. Pneumonia: 2. Panlobular emphysema: 3. UTI (urinary tract infection): 4. Diabetes mellitus, type II, insulin dependent: Reason for Visit Reason for Visit: back pain Brief History: Sally Henderson is a 84 year old woman with a history of diabetes (with prior hypoglycemia), chronic obstructive pulmonary disease (COPD) on home oxygen via nasal cannula, coronary artery disease (CAD) status post coronary artery bypass grafting (CABG), chronic kidney disease (CKD), congestive heart failure (CHF), paroxysmal atrial fibrillation (AFib) on apixaban (Eliquis), presenting with several days of worsening back pain. Reports pain along the entire spine and lower abdominal pain. Recently informed she has a urinary tract infection (UTI) but has not yet started antibiotics. Endorses burning with urination. Reports difficulty breathing over the past couple of days; cough occurs once in a while and she is bringing up some green phlegm. Vomited at ?[facility]? a few days prior to discharge; denies recent choking with food or drink. Currently using 3?4 L/min nasal cannula oxygen at home for COPD. She was seen in the emergency department yesterday due to hypoglycemia. She had a recent stay at an emergency home ([facility]) and was discharged home; now living with her son in [place] and states he takes good care of her. States she is not ready to change code status and would want resuscitative efforts (CPR) again if needed. Hospital Course Hospital Course She was treated for pneumonia, severe exacerbation of COPD with improvement. With resolution of wheezing, improved air entry. With weaning down to chronic 2 L nasal cannula oxygen. Cough productive of sputum resolving. Continue treatment for urinary tract infection although urine culture eventually was unrevealing. Continue with optimization of blood glucose control while on corticosteroids. She has overall been weaker with overall functional decline. Declined to sit up in a chair. Previously declined consideration of SNF. At discharge she will complete antibiotic course, including MRSA coverage with positive MRSA PCR, prednisone taper, and is returning home with hospice care after consideration of options with the patient and family. Please follow-up her renal function, noted mild KRISTEN, creatinine at 1.3. She is asked to hold Farxiga for now, change Lasix to as needed dosing, and hold Entresto. Physical Exam Const: COMMON NORMALS: patient oriented x3 and alert GENERAL APPEARANCE: cooperative ORIENTATION/CONSCIOUSNESS: Yes awake HENMT: COMMON NORMALS: oropharynx normal Neck/C-Spine: COMMON NORMALS: no JVD Resp: COMMON NORMALS: normal respiratory effort AUSCULTATION: no wheezes and diminished lung sounds Cardio: COMMON NORMALS: no JVD, regular rhythm, S1 normal heart sound present, S2 normal heart sound present and No murmurs present (Cardio) RHYTHM: regular rhythm HEART SOUNDS: S1 normal heart sound present and S2 normal heart sound present GI: COMMON NORMALS: Normal to inspection, nondistended, normoactive bowel sounds present, Soft to palpation and non-tender PALPATION: Yes Soft to palpation Extremity: COMMON NORMALS: no joint enlargement and no pedal edema Neuro: COMMON NORMALS: patient oriented x3 and moves all extremities SENSORIUM/ORIENTATION: Yes alert Skin: COMMON NORMALS: no rashes or lesions noted NARRATIVE SKIN EXAM: L foot chronic wounds of heel and at the site of prior left hallux amputation GENERAL SKIN EXAM: no rashes or lesions noted Discharge Data Studies Completed and Pending Completed Studies During Hospitalization Category Date Time Status XR chest 1V portable [id number] Stat Exams 02/03/25 07:11 Completed Pending at discharge Category Date Time Status Blood Culture Stat Lab 02/03/25 07:14 Results Sputum Culture and Gram Stain Routine Lab 02/04/25 09:03 Results Radiology Impressions Chest X-Ray 02/03/25 07:11 IMPRESSION: 1. Low lung volumes. 2. Right basilar airspace disease. 3. Minimal bilateral pleural fluid. Laboratory Results WBC 15.83 10^3/uL (3.29-11.43) H 02/06/25 04:20 RBC 2.94 10^6/uL (3.85-5.65) L 02/06/25 04:20 Hgb 8.10 g/dL (11.27-16.99) L 02/06/25 04:20 Hct 25.3 % (36-47) L 02/06/25 04:20 MCV 86.1 fl (85-98) 02/06/25 04:20 MCH 27.6 pg (27-33) 02/06/25 04:20 MCHC 32.0 g/dL (30-55) 02/06/25 04:20 RDW 18.7 % (12.1-15.1) H 02/06/25 04:20 Plt Count 313 10^3/cmm (157-399) 02/06/25 04:20 MPV 12.0 fL (7.4-10.4) H 02/06/25 04:20 Neut % (Auto) 84.0 % 02/06/25 04:20 Lymph % (Auto) 3.8 % 02/06/25 04:20 Bradford % (Auto) 7.3 % 02/06/25 04:20 Eos % (Auto) 0.0 % 02/06/25 04:20 Baso % (Auto) 0.2 % 02/06/25 04:20 Neut # (Auto) 13.30 10^3/uL (1.8-7.7) H 02/06/25 04:20 Lymph # (Auto) 0.6 10^3/uL (0.8-4.8) L 02/06/25 04:20 Bradford # (Auto) 1.2 10^3/uL (0.2-0.9) H 02/06/25 04:20 Eos # (Auto) 0.0 10^3/uL (0.0-0.8) 02/06/25 04:20 Baso # (Auto) 0.0 10^3/uL (0.0-0.1) 02/06/25 04:20 Nucleated RBC % (auto) 0.9 % 02/06/25 04:20 Nucleated RBCs # 0.1 /100WBC 02/06/25 04:20 Specimen Type Arterial 02/03/25 08:53 Sample Site Radial, right 02/03/25 08:53 ABG pH 7.35 (7.35-7.45) 02/03/25 08:53 ABG pCO2 39.0 mmHg (35-45) 02/03/25 08:53 ABG pO2 86.6 mmHg (80.0-100.0) 02/03/25 08:53 ABG PO2/FiO2 Ratio 240 02/03/25 08:53 ABG HCO3 21.6 mmol/L (22-26) L 02/03/25 08:53 ABG O2 Saturation 97.1 02/03/25 08:53 ABG Base Excess -3.6 mmol/L (-2.0-2.0) L 02/03/25 08:53 Tanner Test Pos 02/03/25 08:53 A-a O2 Gradient 15.6 mmHg (5-10) H 02/03/25 08:53 Hematocrit 25.1 % (37-47) L 02/03/25 08:53 Hgb O2 Saturation 98.0 % (95-100) 02/03/25 08:53 Carboxyhemoglobin 0.6 %THgb (0.4-20.1) 02/03/25 08:53 Methemoglobin < 0.0 % (0.4-1.5) L 02/03/25 08:53 Total Hemoglobin 8.2 g/dL (12-16) L 02/03/25 08:53 Sodium 137.0 mmol/L (131-143) 02/03/25 08:53 Potassium 4.6 mmol/L (3.5-5.0) 02/03/25 08:53 Glucose 245.0 mg/dL (70-115) H 02/03/25 08:53 Ionized Calcium 1.2 mmol/L (1.1-1.4) 02/03/25 08:53 O2 Delivery Device Nc 02/03/25 08:53 O2 Liters/Min 4.0 % 02/03/25 08:53 FiO2 36.0 % 02/03/25 08:53 Lead Burner Supervisor ID glc 02/03/25 08:53 Sodium 135 mmol/L (136-145) L 02/06/25 04:20 Potassium 4.9 mmol/L (3.5-5.1) 02/06/25 04:20 Chloride 99 mmol/L (98-107) 02/06/25 04:20 Carbon Dioxide 24 mmol/L (22-29) 02/06/25 04:20 Anion Gap 16.9 (5-19) 02/06/25 04:20 BUN 37 mg/dL (8-23) H 02/06/25 04:20 Creatinine 1.3 mg/dL (0.5-0.9) H 02/06/25 04:20 GFR Calculation Not Reportable 02/06/25 04:20 Glucose 208 mg/dL (65-115) H 02/06/25 04:20 POC Glucose 206 mg/dL (70-110) H 02/06/25 05:57 Calculated Osmolality 295 mOsm/kg (285-295) 02/06/25 04:20 Lactic Acid 2.8 mmol/L (0.5-2.2) H 02/03/25 06:40 Lactic Acid (Sepsis) 3.2 mmol/L (0.5-2.2) H 02/03/25 09:43 Calcium 8.6 mg/dL (8.5-10.5) 02/06/25 04:20 Total Bilirubin 0.2 mg/dL (0.15-1.2) 02/06/25 04:20 AST 70 U/L (0-32) H 02/06/25 04:20 ALT 107 U/L (0-33) H 02/06/25 04:20 Alkaline Phosphatase 207 U/L (35-105) H 02/06/25 04:20 Total Protein 6.3 g/dL (6.6-8.7) L 02/06/25 04:20 Albumin 3.2 g/dL (3.5-5.2) L 02/06/25 04:20 Globulin 3.1 g/dL (1.3-4.6) 02/06/25 04:20 Ser , Semi-Qnt Cancelled 02/03/25 06:40 Urine Color Yellow (Yellow) 02/03/25 06:50 Urine Appearance Cloudy (CLEAR) A 02/03/25 06:50 Urine pH 5.5 (5-7) 02/03/25 06:50 Ur Specific [place]ft 1.032 (1.005-1.030) H 02/03/25 06:50 Urine Protein Trace (Negative) A 02/03/25 06:50 Urine Glucose (UA) 3+ (Normal) H 02/03/25 06:50 Urine Ketones Trace (Negative) 02/03/25 06:50 Urine Blood 2+ (Negative) A 02/03/25 06:50 Urine Nitrate Negative (Negative) 02/03/25 06:50 Urine Bilirubin Negative (Negative) 02/03/25 06:50 Urine Urobilinogen 0.2 mg/dL (Negative) 02/03/25 06:50 Ur Leukocyte Esterase 1+ (Negative) A 02/03/25 06:50 Urine RBC 6-10 /hpf (0-2) 02/03/25 06:50 Urine WBC >100 /hpf (0-5) H 02/03/25 06:50 Ur Squamous Epith Cells 0-5 /hpf (0-5) 02/03/25 06:50 Amorphous Sediment Not Reportable 02/03/25 06:50 Urine Bacteria None seen /hpf (NONE) 02/03/25 06:50 Hyaline Casts 0.81 /lpf 02/03/25 06:50 Nasal MRSA (PCR) Mrsa detected (Not Detecte) A 02/03/25 12:50 Serum Ketones Negative (Negative) 02/03/25 06:40 Influenza A (PCR) Negative (Negative) 02/05/25 10:40 Influenza Type B (PCR) Negative (Negative) 02/05/25 10:40 RSV (PCR) Negative (Negative) 02/05/25 10:40 SARS-CoV-2 (PCR) Negative (Negative) 02/05/25 10:40 Vitals Last Vital Signs Temp 98.6 F 02/06/25 07:37 Pulse 72 02/06/25 07:51 Resp 16 02/06/25 07:41 BP 124/85 02/06/25 07:37 Pulse Ox 99 02/06/25 07:41 O2 Del Method Nasal Cannula 02/06/25 07:41 O2 Flow Rate 2 02/06/25 08:00 Discharge Plan Discharge Patient Disposition: Home Condition: Stable Prescriptions: New linezolid 600 mg tablet 600 mg PO BID Qty: 5 0RF prednisone 20 mg tablet 20 mg PO DAILY Qty: 20 0RF Rx Instructions: 3 tab daily for 3 days, then 2 tab for 3 days, then 1 tab for 3 days, then 1/2 tab for 4 days. azithromycin 250 mg tablet 250 mg PO DAILY 5 Days Qty: 5 0RF cefdinir 300 mg capsule 300 mg PO BID 5 Days Qty: 10 0RF Continued (DME) CAM emery See Rx Instructions .Route .MEDSUPPLY Qty: 1 0RF Rx Instructions: As directed clopidogrel 75 mg tablet 75 mg PO BEDTIME Qty: 90 3RF omeprazole 20 mg capsule,delayed release(DR/EC) 20 mg PO BID ondansetron 4 mg tablet,disintegrating 4 mg PO Q8H PRN (Reason: Nausea And Vomiting) insulin aspart U-100 [Novolog FlexPen U-100 Insulin] 100 unit/mL (3 mL) insulin pen See Rx Instructions .ROUTE .COMPLEX Rx Instructions: INJECT UNDER SKIN BEFORE MEALS AND AT BEDTIME PER SLIDING SCALE, 201-250=4 UNITS, 251-300=6 UNITS, 301-350=8 UNITS, 351-400=10 UNITS, >400=12 UNITS acetaminophen 325 mg Tablet 650 mg PO Q6H PRN (Reason: Mild/Mod Pain Or Temp >/= 101) Qty: 30 0RF ipratropium-albuterol 0.5 mg-3 mg(2.5 mg base)/3 mL Solution For Nebulization 3 ml inhalation Q6H.RESP Qty: 90 0RF hydrocodone-acetaminophen 5-325 mg Tablet 1 tab PO Q6H PRN (Reason: Moderate Pain) Qty: 30 0RF midodrine 5 mg Tablet 5 mg PO TID Qty: 90 0RF budesonide 0.5 mg/2 mL Suspension For Nebulization 0.5 mg inhalation BID.RESPIRATORY Qty: 60 0RF nystatin [Nystop] 100,000 unit/gram Powder 1 applic topical BID Qty: 60 0RF potassium chloride [Klor-Con M20] 20 mEq Tablet,Er Particles/Crystals 20 meq PO DAILY Qty: 30 0RF ranolazine 500 mg Tablet Extended Release 12 Hr 500 mg PO BID Qty: 60 0RF Patient Comments: Patient states she is no longer taking insulin degludec [Tresiba FlexTouch U-200] 200 unit/mL (3 mL) insulin pen 35 unit SUBCUT DAILY Qty: 9 0RF amiodarone 200 mg tablet 100 mg PO DAILY Qty: 30 0RF atorvastatin 40 mg tablet 40 mg PO QPM (DME) nebulizer and compressor [AQE908 Nebulizer] Device See Rx Instructions .Route Qty: 1 0RF Rx Instructions: As directed Glucagon Emergency Kit (human) 1 mg recon soln 1 mg SUBCUT PRN PRN (Reason: low blood sugar) Changed furosemide 40 mg Tablet 40 mg PO DAILY@0800 PRN (Reason: Edema) Qty: 30 0RF Held sacubitril-valsartan [Entresto] 24-26 mg tablet 0.5 tab PO BID Qty: 30 0RF Hold Instructions: Resume on 02/05/25. dapagliflozin propanediol [Farxiga] 10 mg tablet 10 mg PO DAILY Qty: 30 0RF Hold Instructions: Resume on 02/13/25. Discontinued tramadol 50 mg tablet 50 mg PO Q6H PRN (Reason: Pain) Referrals: Antonio Delgado MD [Primary Care Provider, [facility]] - 4-7 days Discharge Activity: Increase activity as tolerated Patient Instructions: Prednisone (By mouth) (Prednisone Intensol, Prednicot, Deltasone, Elvia), Azithromycin (By mouth) (Zithromax, Zithromax Tri-Ernesto, Zithromax..., Cefdinir (By mouth), Linezolid (By mouth) (Zyvox), Urinary Tract Infection in Women (DC), Hospice Care (GEN), Fall Prevention (GEN), Opioid Safety, Patient Portal & Ivanna Instructions Activity Restrictions/Additional Instructions: Complete antibiotic course for pneumonia and COPD exacerbation. Continue oxygen 2 L nasal cannula at home. Change Lasix for now to as needed in case of accumulation of edema until follow-up and reassessment by primary provider. Blood pressures intermittently soft, please hold Entresto for up to the next week or so monitoring blood pressures, but if blood pressures persistently above 120/80, resume half tablet dose of Entresto. Would avoid tramadol. Avoid NSAIDs (ibuprofen or similar medications), or other nephrotoxic medications. Have a primary doctor recheck your kidney function in office. Hold Farxiga until reassessed by and possibly resumed primary doctor as it sometimes can increase risk of acute kidney injury. For now use Lasix only as needed in case of emerging edema. Hold Entresto for now as well. Have your primary doctor follow-up your liver parameters. Seek medical attention in case of worsening or new concerning symptoms. Discharge Attestations Time Spent in Discharge Care*: greater than 30 min Status at Discharge: Cognitive status at discharge: cognitively intact, Behavioral status at discharge: cooperative, Quality Metrics Clinical Quality Measures [ No reported AMI, CVA or VTE this stay] Coding Level of Care Code 26217 Total time (in minutes) for Discharge: 50 Diagnoses Pneumonia J18.9 Panlobular emphysema J43.1 COPD type: emphysema Emphysema type: panlobular UTI (urinary tract infection) N39.0 Diabetes mellitus, type II, insulin dependent E11.9; Z79.4
== END 2025-02-06 15:46 | disposition hospice, home (50) | DRG 190 ==
LOC: ER 07:50 → MEDSURG 09:39
PROVIDERS: Admitting Provider Internal Medicine; Emergency Provider Family Medicine; PCP Family Medicine; Visit Provider Internal Medicine
DX: J44.1 Chronic obstructive pulmonary disease with (acute) exacerbation (principal); J18.9 Pneumonia, unspecified organism; J96.11 Chronic respiratory failure with hypoxia; L97.423 Non-pressure chronic ulcer of left heel and midfoot with necrosis of muscle; N17.9 Acute kidney failure, unspecified; N30.90 Cystitis, unspecified without hematuria; J44.0 Chronic obstructive pulmonary disease with (acute) lower respiratory infection; M54.9 Dorsalgia, unspecified; G89.29 Other chronic pain; I25.10 Atherosclerotic heart disease of native coronary artery without angina pectoris; E11.621 Type 2 diabetes mellitus with foot ulcer; L97.529 Non-pressure chronic ulcer of other part of left foot with unspecified severity; I45.10 Unspecified right bundle-branch block; D63.1 Anemia in chronic kidney disease; T87.81 Dehiscence of amputation stump; J43.1 Panlobular emphysema; E11.22 Type 2 diabetes mellitus with diabetic chronic kidney disease; I95.89 Other hypotension; I48.0 Paroxysmal atrial fibrillation; I50.9 Heart failure, unspecified; I27.20 Pulmonary hypertension, unspecified; Z79.4 Long term (current) use of insulin; Z95.1 Presence of aortocoronary bypass graft; Z86.74 Personal history of sudden cardiac arrest; Z89.412 Acquired absence of left great toe; Z99.81 Dependence on supplemental oxygen; Z79.899 Other long term (current) drug therapy; Z79.02 Long term (current) use of antithrombotics/antiplatelets; I25.2 Old myocardial infarction; Z90.710 Acquired absence of both cervix and uterus; Z87.891 Personal history of nicotine dependence; Z86.14 Personal history of Methicillin resistant Staphylococcus aureus infection; Z79.01 Long term (current) use of anticoagulants; Z11.52 Encounter for screening for COVID-19
CPT/HCPCS: 36415; 36416; 36600; 71045; 80051; 80053; 81001; 82009; 82330; 82805; 82962; 83605; 85025; 86403; 87040; 87070; 87077; 87086; 87186; 87205; 87449; 87637; 93005; 94640; 94664; 96372; 96374; 96375; 99284; 99285; G0378; J0456; J0696; J1815; J2020; J2405; J2919; J7030; J7050; J7626; J7799; J9999

== ENCOUNTER 2025-03-01 18:23 | Emergency (ER) | payer MEDICARE, SELFPAY ==
--- OUTSIDE RECORDS SUMMARY | 2025-01-31 09:40 | XMS_ITS ---
Author Organization [facility] Address [address] [place] [address] Care Team Providers Care Supervisor Instrument Maintenance Name Role Phone Julio Miller Primary Care Provider Lauro Herbert Allergies No Known Allergies REASON FOR VISIT discharge, CIME: Usp Discharge Medications Medication SIG (Take, Route, Frequency, Duration) Notes Start Date End Date Status Budesonide 0.5 MG/2ML Suspension 1 mL Inhalation Twice a day Active Ipratropium-Albuterol 0.5-2.5 (3) MG/3ML Solution 3 mL as needed Inhalation every 6 hrs Active Midodrine HCl 5 MG Tablet 1 tablet Orally Twice a day Active HYDROcodone-Acetaminophen 5-325 MG Tablet 1 tablet as needed Orally every 6 hrs; Duration: 30 days 12/23/2024 Active Furosemide 40 MG Tablet 1 tablet Orally Once a day Active Tresiba FlexTouch 200 UNIT/ML Solution Pen-injector as directed Subcutaneous Act sean Encounters Encounter Location Date Provider Diagnosis [facility] [address] [facility] [address] [place] [address] 01/31/2025 Lauro Moya 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 Vitals taken and recorded at [facility]. Pt approved for discharge. Time spent managing discharge: 25 mins Plan Of Treatment Treatment Notes Assessment Notes Other Medications reviewed , orders signed and documented with nursing staff. Vitals taken and recorded at [facility]. Pt approved for discharge. Time spent managing discharge: 25 mins Next Appt Details Follow Up: 4 Weeks, Reason: History and Physical Notes * HPI (History of Present Illness) Category Sub-Category Detail Notes Category Not es : The patient is seen in the pen[facility]ent[facility] today for discharge from [facility]. Staff reports pt is stable for transport. The review of systems and exam are unchanged from previous. Patient denies pain and is comfortable. All orders, prescriptions, home care assessments and DME are completed. Will follow up with patient in office as appropriate. Examination Category Sub-Category Detail Notes Category Not es General Examination GENERAL APPEARANCE: in no ac terri distress. Vital signs as documented. NECK/THYROID: no JVD HEART: notable for regular rhythym, normal sounds and absence of murmurs, rubs or gallops. LUNGS: Lungs clear ABDOMEN: unremarkable, no org anomegaly , no masses, or abdominal aortic enlargement. SKIN: warm and dry, withou t overt rashes. Progress Notes * Sally HENDERSON EDOB:[birth year] (84 yo F)Acc No.[id number]:01/31/2025 Patient: Sally Redmond Provider: Robbin Moya MD :1940 A ge:84 Y S ex:Female Date:01/31/2025 Address: [address], [id number] Pcp:Julio Miller Subjective: * Chief Complaints: * D ischargeCIME: Usp Discharge * HPI: * :: The patient is seen in the penitentiary today for discharge from [facility]. Staff reports pt is stable for transport. The review of systems and exam are unchanged from previous. Patient denies pain and is comfortable. All orders, prescriptions, home care assessments and DME are completed. Will follow up with patient in office as appropriate. * Medical History: Acute sepsis Bone infection Infected skin lesion Cardiac arrest due to underlying cardiac condition Acute and chronic respiratory failure with hypoxia Diabetes mellitus Medical History Verified * Medications: T akingHYDROcodone-Acetaminophen 5-325 MG Tablet 1 tablet as needed Orally every 6 hrs Midodrine HCl 5 MG Tablet 1 tablet Orally Twice a day Ipratropium-Albuterol 0.5- 2.5 (3) MG/3ML Solution 3 mL as needed Inhalation every 6 hrs Tresiba FlexTouch 200 UNIT/ML Solution Pen-injector as directed Subcutaneous Furosemide 40 MG Tablet 1 tablet Orally Once a day Budesonide 0.5 MG/2ML Suspension 1 mL Inhalation Twice a day Medication List reviewed and reconciled with the patientTaking HYDROcodone-Acetaminophen 5-325 MG Tablet 1 tablet as needed Orally every 6 hrs Taking Midodrine HCl 5 MG Tablet 1 tablet Orally Twice a day Taking Ipratropium-Albuterol 0.5-2.5 (3) MG/3ML Solution 3 mL as needed Inhalation every 6 hrs Taking Tresiba FlexTouch 200 UNIT/ML Solution Pen-injector as directed Subcutaneous Taking Furosemide 40 MG Tablet 1 tablet Orally Once a day Taking Budesonide 0.5 MG/2ML Suspension 1 mL Inhalation Twice a day Medication List reviewed and reconciled with the patient * Allergies: N .K.D.A.yesAllergies Verified. Objective: * Examination: G eneral Examination: GENERAL APPEARANCE: i n no acute distress. Vital signs as documented.. NECK/THYROID: n o JVD. SKIN: w arm and dry, without overt rashes.. HEART: n otable for regular rhythym, normal sounds and absence of murmurs, rubs or gallops. LUNGS: L ungs clear. ABDOMEN: u nremarkable, no organomegaly , no masses, or abdominal aortic enlargement.. Assessment: * Assessment: 1. C ardiac arrest due to underlying cardiac condition - I46.2 (Primary) 2 .?Acute and chronic respiratory failure with hypoxia - J96.21 3 . D iabetes mellitus - E11.9 Plan: * Treatment: * Procedure Codes: 9 9315 LTC Facility, Discharge under 30 min * Follow Up: 4 Weeks Billing Information: * Procedure Codes: 55820 LTC Facility, Discharge under 30 min. * Electronic signature of Vicente Moya MD on 03/01/2025 at 06:28 PM CDT Sign off status: Pending * Provider: Robbin Moya MD Date: 0 01/31/2025 Generated for Tucker villa/Pallavi/Brooke on: 1 06:28 PM CDT
--- OUTSIDE RECORDS SUMMARY | 2025-03-01 18:28 | XMS_ITS | Clinical Summary ---
Author Organization [facility] Address [address] [place] [address] Phone Care Team Providers Care Electrical Prospecting Engineer Name Role Phone Thomas Nava DO Primary Care Provider [phone] Allergies No known active allergies Medications ranitidine HCl (ZANTAC) 150 mg CapsuleIndicati ons:Crescendo angina,CAD (coronary artery disease),Type II or unspecified type diabetes mellitus with other specified manifestations, not stated as uncontrolled,Es sential hypertension, benign,Hyperlip idemia,CHF (congestive heart failure), NYHA class IV Take 150 mg by mouth 2 times daily. Active atorvastatin (LIPITOR) 20 mg tabletIndicatio ns:Crescendo angina,CAD (coronary artery disease),Type II or unspecified type diabetes mellitus with other specified manifestations, not stated as uncontrolled,Es sential hypertension, benign,Hyperlip idemia,CHF (congestive heart failure), NYHA class IV Take 20 mg by mouth Daily LATE. Active gabapentin (NEURONTIN) 600 mg tabletIndicatio ns:Crescendo angina,CAD (coronary artery disease),Type II or unspecified type diabetes mellitus with other specified manifestations, not stated as uncontrolled,Es sential hypertension, benign,Hyperlip idemia,CHF (congestive heart failure), NYHA class IV Take 600 mg by mouth daily at bedtime. bedtime Active POTASSIUM CHLORIDE (KLOR-CON M20 ORAL)Indication s:Crescendo angina,CAD (coronary artery disease),Type II or unspecified type diabetes mellitus with other specified manifestations, not stated as uncontrolled,Es sential hypertension, benign,Hyperlip idemia,CHF (congestive heart failure), NYHA class IV Take by mouth. 1 x day Active gemfibrozil (LOPID) 600 mg tabletIndicatio ns:Crescendo angina,CAD (coronary artery disease),Type II or unspecified type diabetes mellitus with other specified manifestations, not stated as uncontrolled,Es sential hypertension, benign,Hyperlip idemia,CHF (congestive heart failure), NYHA class IV Take 600 mg by mouth 2 times daily. Active pantoprazole (PROTONIX) 40 mg Tablet, Delayed Release (E.C.)Indicatio ns:Crescendo angina,CAD (coronary artery disease),Type II or unspecified type diabetes mellitus with other specified manifestations, not stated as uncontrolled,Es sential hypertension, benign,Hyperlip idemia,CHF (congestive heart failure), NYHA class IV Take 40 mg by mouth daily. Active furosemide (LASIX) 40 mg tabletIndicatio ns:Crescendo angina,CAD (coronary artery disease),Type II or unspecified type diabetes mellitus with other specified manifestations, not stated as uncontrolled,Es sential hypertension, benign,Hyperlip idemia,CHF (congestive heart failure), NYHA class IV Take 40 mg by mouth daily. Active Blood-Glucose Meter (ONE TOUCH ULTRA 2) KitIndications: Crescendo angina,CAD (coronary artery disease),Type II or unspecified type diabetes mellitus with other specified manifestations, not stated as uncontrolled,Es sential hypertension, benign,Hyperlip idemia,CHF (congestive heart failure), NYHA class IV by Misc.(Non-Drug; Combo Route) route. Active insulin aspart protamine-insul [...] tablet Take 0.5 Tabs by mouth daily geophysical observer. 30 Tab 2 4 Active traMADol (ULTRAM) 50 mg tablet Take 1 Tab by mouth every 6 hours as needed for Pain. 30 Tab 0 4 Active oxygen home deliveryIndicat ions:CAD (coronary artery disease),CHF (congestive heart failure), NYHA class IV Rest: Room Air 88% Rest: Oxygen @ [...] on file Legal Sex Female 8:49 AM TECHNICAL SUPPORT CONSULTANT Gender Identity Not on file Sexual Orientation [...] 2024 02/12/2013 Medical Devices Implanted Type Area Zmt Operator Device Identifier Shelf Expiration Date Model / Serial / Lot [place] Ptfe Thck 1.6mmx2.5x2.5cm [id number] - Sn/A Implanted:Qty: 1 on 07/12/2013 at [facility] Graft CR [employer] 04/11/2018 [id number] / N/A / [id number] Procedures Procedure Name Priority Date/Time Associated Diagnosis Comments HEMOGLOBIN A1C Routine 07/11/2013 2:35 PM TECHNICAL SUPPORT CONSULTANT Crescendo angina ([facility]) CAD (coronary artery disease) Type II or unspecified type diabetes mellitus with other specified manifestations, not stated as uncontrolled ([facility]) Essential hypertension, benign Hyperlipidemia CHF (congestive heart failure), NYHA class IV ([facility]) from Last 3 Months or Most Recently Relevant to Health Maintenance Results * (ABNORMAL) HEMOGLOBIN A1C (07/11/2013 2:35 PM TECHNICAL SUPPORT CONSULTANT) HEMOGLOBIN A1C 8.5(H) 4.0 - 6.0 %A1C [facility] Comment: This test was performed on a Events [employer] VARIANT II Instrument using HPLC methodology. Blood specimen (specimen) 07/11/2013 2:35 PM TECHNICAL SUPPORT CONSULTANT 07/11/2013 2:54 PM TECHNICAL SUPPORT CONSULTANT Margaret Sheldon MD CHEMISTRY ORDERABLES F inal Result INTERFACE SYSTEM Refer to clinic/hospital department [facility]# [id number] [address] [place] [address] from Last 3 Months or Most Recently Relevant to Health Maintenance Insurance [employer] [facility] [employer] MCR Advance Directives For more information, please contact: [phone] * Full Code (Latest Code Status on File) Date Activated Date Inactivated Comments 07/13/2013 7:11 AM 07/18/2013 6:51 PM * Full Code Date Activated Date Inactivated Comments 07/12/2013 11:11 AM 07/13/2013 7:11 AM * Full Code Date Activated Date Inactivated Comments 07/12/2013 10:37 AM 07/12/2013 11:11 AM * Full Code Date Activated Date Inactivated Comments 07/12/2013 4:55 AM 07/12/2013 10:37 AM Care Teams Electrical Prospecting Engineer Relationship Specialty Start Date End Date Thomas Nava DO [address] [id number] PCP - General Family Practice 06/26/13
--- OUTSIDE RECORDS SUMMARY | 2025-03-01 18:29 | XMS_ITS | Data Portability ---
Author Organization [facility] Divya, L.L.CKetan, EST[facility]ARDOAD[facility] Address [address] [address] Care Team Providers Care Manager Club Name Role Phone BRADY LUCIO Primary Care Provider Assessment No assessment recorded. Plan of Treatment Reminders Order Date Submit Date Provider Last Modified By Organization Details Last Modified Time Details Appointments None record ed. Lab None record ed. Referral None record ed. Procedures None record ed. Surgeries None record ed. Imaging None record ed. Medication Orders None record ed. Patient TargetsNo targets recorded. Patient InstructionsNo instructions recorded. Reason for Referral None Reported. Results Created Date Observation Date Name Description Value Unit Range Abnormal Flag Note LastModifiedBy Organization Detail LastModifiedTime 10/31/19 25 10/28/2024 XR, foot, 3 or more view No observ ation record ed. [address] [place], [address], 10/30/2024 14:42:00 Result Notes None recorded. Problems Name Problem SNOMED Code Status Onset Date Resolution Date Notes Provider Name and Address Organization Details Recorded Time Angina pectoris 681937969 Completed 201301/08/2014 ANGINAL PAIN - Status is Inactive ; Recorded 01/09/20 14 9:54AM by Katrina Castanon RN, Annotati on/Adden dum; Promoted ; acuity set as *; Not Available [employer] 3 03:07:58 Backache 410541210 Active 2021 CHRONIC BACK PAIN LOLA bean, [facility] L.[facility].CKetan 4 09:31:16 Chronic back pain greater than three months duration 64868590750 2 Active 2022 LOLA GUERRERO null, [facility] 5 14:02:43 Diabetic peripher al neuropat hy 986388395 Active 2022 LOLA GUERRERO null, [facility] 4 09:31:34 Hyperlip idemia 49863071 Active 2022 LOLA GUERRERO null, [facility] 4 09:31:18 [facility] hyperten chloe 35372941 Active 2022 LOLA GUERRERO null, [facility] 4 09:31:30 Coronary atherosc lerosis 002373676 Active 2022 LOLA GUERRERO null, [facility] 4 09:31:24 Compress ion fracture of thoracic vertebra 51059506855 04 Active 2023 hx of Sulma Oconnell [facility] 5 16:54:44 Compress ion fracture of lumbar spine 771259024 Active 2023 L5, [facility] 5 16:54:39 Hyperpar athyroid ism due to renal insuffic iency 38119792 Active 2023 LOLA GUERRERO null, [facility] 5 14:02:43 Diabetes mellitus 41548146 Active 2023 NATY HAYES null, [facility] 5 13:03:39 Acute non-ST segment elevatio n myocardi al infarcti on 717772024 Active 2023 hx of Sulma Oconnell [facility] 06/16/202 5 16:54:25 Hypoxia 592672481 Active 2023 LOLA GUERRERO null, [facility].CKetan 5 14:02:43 Moderate mitral valve regurgit ation 075567091 Active 2023 LOLA GUERRERO null, [facility] 5 14:02:43 Chronic diastoli c heart failure 783550123 Active 2023 LOLA GUERRERO null, [facility] 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 5 14:02:43 Problem of aging 94677698 Active 2024 LOLA GUERRERO null, [facility] 5 14:02:43 Ulcer of left heel Active 2024 Sulma Oconnell null, [facility] 5 16:54:49 Osteomye litis of forefoot 539691645 Active 2024 left great LOLA GUERRERO null, [facility] 5 14:41:55 Chronic atrial fibrilla tion 774745064 Active 2024 LOLA GUERRERO null, [facility] 5 10:07:20 Neuropat hy due to type 2 diabetes mellitus 40259835584 9106 Active 2024 LOLA GUERRERO null, [facility] L.L.CeKtan 5 10:07:20 Amputate d big toe 158165530 [facility] 5 10:07:19 Bacterem ia caused by Staphylo coccus aureus 555886477 Active 2024 [facility] Jassi[facility]CKet[facility] 5 10:07:33 Chronic systolic heart failure 188329469 Active 2024 NATY HAYES [facility] 5 12:59:50 Neuropat hy due to diabetes mellitus 405785246 Active 2024 NATY HAYES [facility], JassiL.CKetan 5 13:02:04 Candidia sis of skin 86322790 Active 2024 LOLA GUERRERO [facility] 5 09:03:33 Problem Notes None recorded. Procedures Surgical History Date Name Laterality Status Provider Name and Address Organization Details Recorded Time 10/30/19 25 Amputation of toe completed LOLA GUERRERO [facility] 11/06/2024 14:09:58 11/18/19 23 Family Practice Trigger Point Injection completed Brady Lucio MD [address] [place] [address], [phone], L.L.CKetan 11/17/2022 09:37:56 Cabg vein three completed LOLA GUERRERO [facility] JassiL.CKetan 07/17/2023 09:35:17 hysterectomy completed LOLAJay GUERRERO [facility] LKetanLKetanCKetan 08/13/2024 14:04:06 Imaging Results None recorded. Procedure [...] mg tablet TAKE ONE TABLET BY MOUTH AT BEDTIME active Not Available Not Available No t Available atorvasta tin 80 mg tablet TAKE ONE TABLET BY MOUTH DAILY active Not Available Not Available No t Available gabapenti n 600 mg tablet TAKE ONE TABLET BY MOUTH DAILY active Not Available Not Available No t Available doxycycli ne hyclate 100 mg capsule TAKE ONE CAPSULE BY MOUTH TWICE DAILY FOR 10 DAYS active Not Available Not Available No t Available albuterol sulfate 2.5 mg/3 mL (0.083 [...] completed Not Available Not Available Not Available sucralfat e 1 gram tablet TAKE ONE TABLET BY MOUTH TWICE DAILY active Not Available Not Available No t Available prednison e 20 mg tablet take 2 tablets BY MOUTH DAILY for THREE DAYS 06/17 completed Not Available Not Available Not Available isosorbid e mononitra te ER 30 mg tablet,ex tended release 24 hr 06/05 completed Not Available Not Available Not Available potassium chloride ER 10 mEq tablet,ex tended release TAKE ONE TABLET BY MOUTH DAILY active Not Available Not Available No t Available clopidogr el 75 mg tablet TAKE [...] active Recorded 07/23/19 22 7:06AM by Naty Hyaes LPN, Office Visit; Mail Order Quantity : [...] day by oral route for 14 days. 12/26 completed Not Available Not Available Not Available linezolid 600 mg tablet TAKE 1 TABLET [...] Not Available Not Available No t Available omeprazol e 20 mg capsule,d elayed release TAKE ONE CAPSULE BY MOUTH TWICE DAILY active Not Available Not Available No t Available levofloxa ronny 750 mg tablet TAKE ONE TABLET BY MOUTH EVERY 48 HOURS FOR FIVE DAYS 08/13 completed Not Available Not Available Not Available ondansetr on 4 mg disintegr ating tablet DISSOLVE ONE TABLET BY MOUTH EVERY 8 HOURS NEEDED active Not Available Not Available No t Available amoxicill in 875 mg-potass ium clavulana te 125 mg tablet 06/17 completed Not Available Not Available Not Available insulin aspart (U-100) 100 unit/mL (3 mL) subcutane ous pen INJECT UNDER SKIN BEFORE MEALS AND AT BEDTIME PER SLIDING SCALE, 201-250= 4 UNITS, 251-300= 6 UNITS, 301-350= 8 UNITS, 351-400= 10 UNITS, >400=12 UNITS active Not Available Not Available No [...] area twice a day 03/29 completed VO VALENTIN/kh; Recorded 11/11/19 18 10:24AM by Katrina Castanon RN, Office Visit; Mail Order Quantity : 1 Tube; Refill Quantity : 1; Tube; Not Available Not Available Not Available Lipitor at bedtime 03/29 completed 436; Recorded 07/23/19 22 7:06AM by Naty Hayes LPN (Sharlene hunt through Brady Lucio MD), Office Visit; Mail Order Quantity : 90 Tablet; Mail Order Days: 90 Days; Refill Quantity : 30; Tablet; Not Available Not Available Not Available gelatin daily 08/15 completed 0; Recorded 05/10/20 22 1:07PM by Lola Guerrero LPN, Office Visit; Not Available Not Available Not Available gabapenti n at bedtime 03/29 completed 436; Recorded 03/21/20 22 3:05PM by Lola Guerrero LPN (Authori marilee [...] TAKE TWO TABLETS BY MOUTH TWICE DAILY active Not Available Not Available No t Available Levemir FlexPen 100 unit/mL (3 mL) [...] three times daily 08/15 completed Recorded 10/14/19 20 4:40PM by Brady Lucio MD, Refill Request; [...] Not Available No t Available Tresiba FlexTouch U-100 insulin 100 unit/mL (3 mL) subcutane ous pen INJECT 27 UNITS UNDER SKIN DAILY active Not Available Not Available No t Available losartan potassium (bulk) daily 03/29 completed VO CH/bn; 436; Recorded 07/23/19 22 7:06AM by Naty Hayes LPN (Authori zed through Brady Lucio MD), Office Visit; Mail Order Quantity : 90 Tablet; Mail Order Days: 90 Days; Refill Quantity : 90; Tablet; Not Available Not Available Not Available DropSafe Alcohol Prep Pads Apply 1 pad 3 times a day by topical route. active Not Available Not Available No t Available Vitals Date Recorded Body height Body mass index (BMI) Body weight Oxygen saturation Oxygen saturation in Arterial blood by Pulse oximetry Heart rate Respiratory rate Body temperature Systolic And Diastolic Provider Name and Address Organization Details Last Updated DateTime 5 149.86 cm 33.1 kg/m2 62934.1 5 g 95 % 95 % 74 /min 14 /min 98.6 [degF] 146/76 mm[Hg] NATY HAYES [facility] 5 14:42:51 Date Recorded Body height Body mass index (BMI) Body weight Oxygen saturation Oxygen saturation in Arterial blood by Pulse oximetry Heart rate Respiratory rate Body temperature Systolic And Diastolic Provider Name and Address Organization Details Last Updated DateTime 5 149.86 cm 32.9 kg/m2 01698.5 6 g 96 % 96 % 72 /min 16 /min 98.4 [degF] 110/57 mm[Hg] LOLA GUERRERO [facility] 5 10:05:43 Date Recorded Body height Body mass index (BMI) Body weight Oxygen saturation Oxygen saturation in Arterial blood by Pulse oximetry Heart rate Respiratory rate Body temperature Systolic And Diastolic Provider Name and Address Organization Details Last Updated DateTime 5 149.86 cm 32.9 kg/m2 97174.5 6 g 90 % 90 % 74 /min 14 /min 97.6 [degF] 95/71 mm[Hg] NATY HAYES [facility] 5 12:54:36 Social History Question Answer Notes LastModified by Shooger Details LastModified Time Tobacco Smoking Status Never Smoker LOLA GUERRERO [facility] 07/17/2023 09:33:08 What Was The Date Of Your Most Recent Tobacco Screening? 11/19/2024 [email or web address] Information not available 11/19/2024 What Is Your Relationship Status? [email or web address] Information not available 07/17/2023 Sex: Unknown Functional Status Question Answer Note LastModified by Shooger Details LastModified Time Do you use any illicit or recreational drugs? No [email or web address] Information not available 07/17/2023 Do you or have you ever used any other forms of tobacco or nicotine? No [email or web address] Information not available 07/17/2023 What is your level of alcohol consumption? None [email or web address] Information not available 07/17/2023 Mental Status None recorded. Family History Nothing Reported. Medical History No medical history recorded. Gynecological HistoryNo gynecological history recorded. Obstetrics History GPAL:G -1 P 0 0 0 0 Immunizations Vaccine Type Date Status Note Provider Nam e and Address Organization Details Recorded Time zoster recombinant 2 completed [facility] 10/27/2022 15:50:04 zoster recombinant 1 completed [facility] 10/27/2022 15:50:04 COVID-19, mRNA, LNP-S, PF, 100 mcg/0.5mL dose or 50 mcg/0.25mL dose 1 completed [facility] 10/27/2022 15:50:04 COVID-19, mRNA, LNP-S, PF, 100 mcg/0.5mL dose or 50 mcg/0.25mL dose 1 completed [facility] 10/27/2022 15:50:04 COVID-19, mRNA, LNP-S, PF, 100 mcg/0.5mL dose or 50 mcg/0.25mL dose 2 completed [facility] 10/27/2022 15:50:04 COVID-19, mRNA, LNP-S, PF, 100 mcg/0.5mL dose or 50 mcg/0.25mL dose 1 completed [facility] 10/27/2022 15:50:05 pneumococcal polysaccharide PPV23 6 completed [facility] 10/27/2022 15:50:05 Tdap 4 completed [facility] 10/27/2022 15:50:05 Influenza, high-dose, trivalent, PF 9 completed [facility] 10/27/2022 15:50:05 zoster live 2 completed Not Available [facility] 05/11/2023 11:04:16 zoster live 1 completed Not Available [facility] 05/11/2023 11:04:16 Pneumococcal conjugate PCV 13 5 completed Not Available [facility] 05/11/2023 11:04:16 Influenza, split virus, trivalent, preservative 5 completed Not Available [facility] 05/11/2023 11:04:16 Influenza, split virus, trivalent, preservative 8 completed Not Available [facility] 05/11/2023 11:04:16 Influenza, split virus, trivalent, preservative 1 completed Not Available [facility] 05/11/2023 11:04:16 Influenza, split virus, trivalent, preservative 7 completed Not Available [facility] 05/11/2023 11:04:16 Influenza, high-dose, quadrivalent, PF 3 completed LOLA bean [facility] 07/31/2023 14:35:31 Influenza, split virus, quadrivalent, PF 4 completed LOLA bean [facility] 08/13/2024 14:01:11 Past Encounters Encounter ID Performer Location Encounter Start Date Encounter Closed Date Diagnosis/Indication Diagnosis SNOMED-CT Code Diagnosis ICD10 Code Diagnosis IMO Codes Diagnosis Note HEVER [facility] [address] [place] [address] 10/27/2022 15:15:41 11/08/2022 13:37:30 Acute upper respiratory infection 96644886 J06.9 Start doxycyclin e BID today. Encouraged [...] go to ED. [place]. [id number] Brady Lucio MD [facility] ([facility]) [address] [place] [phone] 11/17/2022 08:57:12 11/17/2022 10:08:07 Diabetic peripheral neuropathy 744800725 E11.40 Hyperparathyroidism 6699 9008 E21.3 Hyperlipidemia 00558542 E78.5 Essential hypertension 64798142 I10 Coronary atherosclerosis 713984447 I25.119 History of coronary artery bypass grafting 663990824 Z95.1 Chronic ki dney disease stage 3A 185315279 N18.31 Foot callus 054742241 L8 4 Deformity of foot 154597 004 M21.969 Allergic rhinitis 944649 04 J30.9 [id number] Brady Lucio MD [facility] ([facility]) [address] [place] [phone] 11/25/2022 09:41:35 11/25/2022 11:14:41 Dysuria 09657352 R30.0 Acute cystitis 70756735 N30.00 [id number] OFELIA NUNO NP [facility] ([facility]) [address] [place] [id number] 12/12/2022 09:53:22 12/12/2022 11:31:32 Dysuria 21648700 R30.0 Discussed UA results in clinic todayUrine [...] concernsPa tient verbalized understand ing of plan. [id number] Brady Lucio MD [facility] ([facility]) [address] [place] [id number] 03/29/2023 10:49:54 04/06/2023 22:41:13 Pain in left foot 1636740314 13982 M79.672 well, we discussed that her xray [...] on exam Type 2 abena betes mellitus 04808145 E11.9 [id number] Brady Lucio MD [facility] ([facility]) [address] [place] [id number] 05/11/2023 11:04:00 05/11/2023 12:52:05 Coronary atherosclerosis 979975569 I25.119 Hyperparathyroidism 6699 9008 E21.3 Neuropathy due to type 2 diabetes mellitus 4175830810 07324 E11.40 [id number] Brady Lucio MD [facility] ([facility]) [address] [place] [id number] 07/31/2023 13:32:04 07/31/2023 15:08:04 Coronary atherosclerosis 275628649 I25.119 Diabetic p eripheral neuropathy 015325553 E11.40 Essential hypertension 64480852 I10 Hyperlipidemia 71120895 E78.5 Hyperparathyroidism 6699 9008 E21.3 Hyperparat hyroidism due to renal insufficiency 70865814 N25.81 [id number] Brady Lucio MD [facility] ([facility]) [address] [place] [id number] 09/08/2023 11:13:45 09/08/2023 12:44:27 Diabetes mellitus 93979474 E11.65 Coronary atherosclerosis 173600492 I25.119 Acute non- ST segment elevation myocardial infarction 711815166 I21.[address] percutaneous transluminal coronary angioplasty 726266646 Z98.61 Chronic ki dney disease stage 3A 280497371 N18.31 Hyperlipidemia 64765750 E78.5 Hypoxia 559438877 R09.02 requiring oxygen on discharge but hates it and wants it gone. 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 advised to return around 02/28/24 to reassess for complicate d coronary interventi on. it was canceled. she does not know why or by whom. however hospital notes here note that she has been deemed not a good interventi onal candidate and that is very likely true. will not pursue further referral to goode per previous eval and iman' s desire to be treated medicall expressed at this itme. 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 advised to return around 02/28/24 to reassess for complicate d coronary interventi on. it was canceled. she does not know why or by whom. however hospital notes here note that she has been deemed not a good interventi onal candidate and that is very likely true. will not pursue further referral to goode per previous eval and iman' s desire to be treated medicall expressed at this itme. Moderate m itral valve regurgitation 309785951 I34.0 Chronic di astolic heart failure 028325086 I50.32 Acute non- ST segment elevation myocardial infarction 397893094 I21.4 [id number] Brady Lucio MD [facility] ([facility]) [address] [place] [id number] 06/17/2024 13:58:01 06/18/2024 13:34:10 Chronic diastolic heart failure 313375845 I50.32 Diabetes mellitus 944134 09 E11.40 E11.69 Essential hypertension 25243871 I10 Hyperlipidemia 09141605 E78.5 Hypertensi ve heart AND chronic kidney disease with congestive heart failure 7618493742 9107 I13.0 Dependence on supplemental oxygen 4698009737 07 Z99.81 Abnormal gait 92326490 R 26.2 Reduced mobility 0693407 Z74.09 Problem of aging 6361334 1 R54 Dependence on enabling machine or device 297851217 Z99.89 Healthcare associated bacterial pneumonia 940887175 Y95 [id number] Brady Lucio MD [facility] ([facility]) [address] [place] [phone] 08/13/2024 13:26:53 08/14/2024 07:51:58 Atrial fibrillation 80132947 I48.91 Acute on c hronic diastolic heart failure 650692879 I50.33 Chronic di astolic heart failure 949185226 I50.32 the dog ate my lasix i can't find it. Coronary atherosclerosis 960896276 I25.119 Acute non- ST segment elevation myocardial infarction 404792752 I21.4 [id number] Brady Lucio MD [facility] ([facility]) [address] [place] [id number] 5 08/22/2024 12:44:30 08/23/2024 07:36:08 Congestive heart failure 54175062 I50.9 we discusse her meds andteh imortance of entresto to prevent chf she fell last week adn has bruising adn ttp right mid foot Pain in right foot 7290969 44524 29156 M79.189 [id number] Brady Lucio MD [facility] ([facility]) [address] [place] [id number] 5 09/13/2024 12:11:46 09/13/2024 13:20:02 Ulcer of toe of left foot 6841874319 4274927 L97.521 30532800 foam border dressing after cleansing, drying and adding medihoney once daily Ulcer of left heel 30828 72549 9235291 L97.421 26850672 [id number] Brady Lucio MD [facility] ([facility]) [address] [place] [id number] 5 10/28/2024 12:58:46 10/30/2024 17:25:02 Infection of foot due to diabetes mellitus 717154124 E11.628 L08.9 2596683 Pain in left foot 093217 9387 87735 M79.672 468491 known foreign body in the left foot is not likely contributi ng to today's issue. there is however signs of osteomyeli tis. she will need surgical debridemen t and i antibiotic s. instructed her to go directly to the er. her son is taking her. I have called the er. and he is expecting her. [id number] BEATRICE LUCIO PA-C [facility] ([facility]) [address] [place] [id number] 5 11/13/2024 14:09:22 11/13/2024 14:10:46 Amputated toe of left foot 685302357 S98.132A 8045776231 On Zyvox and Cipro po for infection Following with Podiatry and has appt for f/u Chronic at rial fibrillation 668838615 I48.20 [id number] CBC/CMP 1 WEEK Diabetes mellitus 021282 09 E13.69 Z79.4 15581830 hosptial A1c 10.8sugars running high at Wy. increase SS to moderate Anemia 217100519 D64.9 1384605 10.5 at discharge. cbc in one week. [id number] BEATRICE LUCIO PA-C [facility] ([facility]) [address] [place] [id number] 5 11/13/2024 14:21:22 12/04/2024 07:42:45 Chronic systolic heart failure 111529845 I50.22 114827 Chronic at rial fibrillation 360699029 I48.20 087559 CBC/CMP 1 WEEK Neuropathy due to type 2 diabetes mellitus 6736815723 63286 E11.40 950529 SS TO MODERATE Amputated big toe 744465 007 S98.112A 8931604850 Osteomyeli tis of forefoot 780845486 M86.9 103308 ZYVOX, CIPRO Bacteremia caused by Staphylococcus aureus 490864009 R78.81 B95.61 46749956 [id number] Brady Lucio MD [facility] ([facility]) [address] [place] [id number] 5 11/19/2024 09:11:26 12/10/2024 12:53:46 Amputated big toe 929652684 S98.112A 8079780515 Chronic sy stolic heart failure 158932236 I50.22 929117 Diabetes mellitus 731920 09 E13.69 Z79.4 34238727 [id number] BEATRICE LUCIO PA-C [facility] ([facility]) [address] [place] [id number] 5 11/20/2024 12:25:24 12/10/2024 14:41:55 Amputated big toe 723621969 S98.112A 6992603644 hgb 10.3d/c to home with home health for nursing and therapies and continuous O2 2 L Chronic sy stolic heart failure 168133532 I50.22 552594 Neuropathy due to diabetes mellitus 772774754 E11.40 99069426 Diabetes mellitus 418770 09 E13.69 Z79.4 33060832 [id number] Brady Lucio MD [facility] ([facility]) [address] [place] [address] [id number] 5 12/24/2024 11:47:11 02/11/2025 13:30:32 Health Concerns Section Related Observation LastModified by Organization Detai ls LastModified Time None Recorded Concern Status LastModified by Organization Details LastModified Time None Recorded Advance Directives Directive None Recorded Payers Insurance Date Sequence Insurance Name Policy Number Policy Person Covered Member ID Person Member ID Guarantor Name 12/10/2024 1 [employer] (MEDICARE REPLACEMENT/ ADVANTAGE - PPO) Iman Henderson [id number] Iman Henderson Notes Date Note Type Note Provider Name and Address Organization Details Recorded Time 5 text/html Care Management - DiabetesReported by PatientHPIFor self care, patient reportsnot checking feet regularlyandhome blood sugar range highbut reportshemoglobin a1c levels have been: >9. For associated symptoms, patient reportsnumbness of feetandcalluses on feet. For prognosis, patient reportsexpected outcome: worsenandprognosis: guarded.pt is noncomplaint at home. Her son helps her but she does live alone.Followed by podiatry. NEW retirement admissionPt is post op L great toe amputation for infection and diabetic complicationShe is doing well. In hospital has some CHF SOBIs better nowReleased on po Zyvox and cipro to complete antibioic course Brady Lucio MD [address] [place] [address], [phone], [facility] 12/09/2024 17:43:43 5 text/html DiabetesReported by PatientHPIFor control, patient [...] andhistory of amputation: yes. new admit to [facility]. 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 she grew out staph in blood as wellPoorly controlled, noncomplaint diabetic at homeHx of Afib and CHF as well to complicate her case. Brady Lucio MD [address] [place] [address], [phone], [facility] 12/03/2024 09:32:06 5 text/html DiabetesReported by Patient Hypertension IM/FMReported by PatientHPIFor quality, patient reportshere for check-up. For onset/timing, patient reportsgradual onset. For associated symptoms, patient reportsno shortness of breath,no headaches, andno chest pain. For severity, (pt does not check her bp at home).ROS as noted in the HPI Patient seen today by Dr. Lucio at [facility] Brady Lucio MD [address] [place], [phone], [facility] 12/09/2024 18:19:55 5 text/html Care Management - DiabetesReported by PatientHPIFor self care, patient reportsnot checking feet regularlyandhome blood sugar range highbut reportshemoglobin a1c levels have been: >9. For associated symptoms, patient reportsnumbness of feetandcalluses on feet. For prognosis, patient reportsexpected outcome: worsenandprognosis: guarded.pt is noncomplaint at home. Her son helps her but she does live alone.Followed by podiatry. Nursing homePt is post op L great toe amputation for infection and diabetic complicationShe is doing well. In hospital has some CHF SOBIs better nowReleased on po Zyvox and cipro to complete antibioic course Brady Lucio MD [address] [place], [phone], [facility] 12/09/2024 17:25:52 OBGyn Episode Ob Episode Information Episode Created Date Number of Fetuses Patient Bloodtype Patient rh Status Prepregnancy Weight lbs Domestic Partner Domestic Partner Phone Father Name Erco Machine Operator Status 05/29/19 25 1 DELETED Fetus Data [...]
--- OUTSIDE RECORDS SUMMARY | 2025-03-01 18:29 | XMS_ITS | Patient Health Record ---
Author Organization [facility] Address [address] [place] [address] Care Team Providers Care Senior Qc Technician Name Role Phone Julio Miller Primary Care Provider Lauro Herbert Unavailable [phone] Allergies No Known Allergies Reason For Referral No Information Medications Medication SIG (Take, Route, Frequency, Duration) Notes Start Date End Date Status Budesonide 0.5 MG/2ML Suspension 1 mL Inhalation Twice a day Active Tresiba FlexTouch 200 UNIT/ML Solution Pen-injector as directed Subcutaneous Act sean Ipratropium-Albuterol 0.5-2.5 (3) MG/3ML Solution 3 mL as needed Inhalation every 6 hrs Active Midodrine HCl 5 MG Tablet 1 tablet Orally Twice a day Active HYDROcodone-Acetaminophen 5-325 MG Tablet 1 tablet as needed Orally every 6 hrs; Duration: 30 days 12/23/2024 Active Furosemide 40 MG Tablet 1 tablet Orally Once a day Active Problems Problem Type SNOMED Code ICD Code Onset Dates Problem Status W/U Status Risk Notes Problem Cardiac arrest due to cardiac disorder (066607638) Cardiac arrest due to underlying cardiac condition (I46.2) Active confirmed Problem Emdif-yd-cpwfozg hypoxemic respiratory failure (001984642059169 00) Acute and chronic respiratory failure with hypoxia (J96.21) Active confirmed Problem Diabetes mellitus (21405793) Diabetes mellitus (E11.9) Active confirmed Encounters Encounter Location Date Provider Diagnosis [facility] [address] [place] [facility], [facility] [address] [place] [address] 01/31/2025 Lauro Moya Cardiac arrest due t o underlying cardiac condition I46.2 ; Acute and chronic respiratory failure with hypoxia J96.21 and Diabetes mellitus E11.9 [facility] [address] [place] [address] [place] [address] 12/16/2024 Lauro Moya Cardiac arrest due t o underlying cardiac condition I46.2 ; Acute and chronic respiratory failure with hypoxia J96.21 and Type 2 diabetes mellitus without complications E11.9 [facility] [address] [place] [address] [place] [address] [facility] Cardiac arrest due t o underlying cardiac condition I46.2 ; Acute and chronic respiratory failure with hypoxia J96.21 and Type 2 diabetes mellitus without complications E11.9 [facility] [address] [place] [phone] 12/23/2024 [facility] [address] [place] [phone] 01/16/2025 [facility] [address] [place] [phone] 01/16/2025 Milan Moya Assessments Encounter Date Diagnosis (ICD Code) Assessment Notes Treatment Notes Treatment Clinical Notes Section Notes 01/31/2025 Cardiac arrest due to underlying cardiac condition (ICD-10 - I46.2) 01/17/2025 Cardiac arrest due to underlying cardiac condition (ICD-10 - I46.2) Medications were reviewed. I will continue without changes. Nursing staff is to contact me with any symptoms arising. Orders signed and documented with nursing staff. Vitals taken and recorded at [facility]. 01/17/2025 Acute and chronic respiratory failure with hypoxia (ICD-10 - J96.21) 12/16/2024 Cardiac arrest due to underlying cardiac condition (ICD-10 - I46.2) Medications reviewed, orders signed and documented with nursing staff. Vitals taken and recorded at [facility]. 12/16/2024 Acute and chronic respiratory failure with hypoxia (ICD-10 - J96.21) 01/17/2025 Type 2 diabetes mellitus without complications (ICD-10 - E11.9) 12/16/2024 Type 2 diabetes mellitus without complications (ICD-10 - E11.9) 01/31/2025 Acute and chronic respiratory failure with hypoxia (ICD-10 - J96.21) 01/31/2025 Diabetes mellitus (ICD-10 - E11.9) 01/31/2025 Other Medications reviewed, orders signed and documented with nursing staff. Vitals taken and recorded at [facility]. Pt approved for discharge. Time spent managing discharge: 25 mins 01/17/2025 Other Medications were reviewed. I will continue without changes. Nursing staff is to contact me with any symptoms arising. Orders signed and documented with nursing staff. Vitals taken and recorded at [facility]. Home Health Certification [facility] [address] [place] [address] [phone] Home Health Face to Face Encounter I [...] home health services (Check all that apply): Assisted __x__ Physical Therapy _x___ Occupational Therapy __x__ Speech Language Therapy ____ Aide ____ Auditing Control Clerk ____ MY MEDICAL FINDINGS SUPPORT THE NEED [...] End Date [employer] with DME [address] [address] [place] [address] [phone] [id number] BeatrizSally Self - patient is the insured [place] Medicare [address] [address] [place] [address] [id number] Sally Henderson Self - patient is the insured Medical (General) History Medical History History ICD Code Acute sepsis A41.9 Bone infection M86.9 Infected skin lesion L08.9 Cardiac arrest due to underlying cardiac condition I46.2 Acute and chronic respiratory failure wi th hypoxia J96.21 Diabetes mellitus E11.9
--- OUTSIDE RECORDS SUMMARY | 2025-03-01 18:29 | XMS_ITS | Clinical Summary ---
Author Organization [facility] Address [address] 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 Gender Identity Not on file Sexual Orientation [...] 2024 02/12/2013 Medical Devices Implanted Type Area Butter Printer Device Identifier Shelf Expiration Date Model / Serial / Lot Dev Sealangio Vip 8fr [id number] - [id number] Implanted:Qty: 1 on 01/04/2024 by Colleen Junior MD at [facility] Closure Device N/A: Groin [employer] [id number] 07/06/2024 [id number] / / [id number] [place] Ptfe Thck 1.6mmx2.5x2.5c m [id number] - Sn/A Implanted:Qty: 1 on 07/12/2013 [employer] 04/11/2018 [id number] / N/A / [id number] Procedures Procedure Name Priority Date/Time Associated Diagnosis Comments HEMOGLOBIN A1C Routine 01/01/2024 4:47 AM CDT from Last 3 Months or Most Recently Relevant to Health Maintenance Results * (ABNORMAL) HEMOGLOBIN A1C (01/01/2024 4:47 AM CDT) HEMOGLOBIN A1C 8.1(H) <=5.6 % 01/03/2024 12:13 PM CDT [facility] EST. AVG GLUCOSE, A1C 186 mg/dL 01/03/2024 12:13 PM CDT [facility] Blood Venipuncture / Unknown 01/01/2024 4:47 AM CDT 01/01/2024 5:04 AM CDT Narrative [facility] - 01/03/2024 12:13 PM CDT HGB A1C INTERPRETATION NORMAL: <5.7% PRE-DIABETES: 5.7 - 6.4% DIABETES: 6.5% OR GREATER us Priyank Loving MD CHEMISTRY ORDERABLES Final Res ult [facility] CLIA # [id number] [facility] [address] [address] from Last 3 Months or Most Recently Relevant to Health Maintenance Insurance [address] [place], [place] [address]O MCR Advance Directives For more information, please contact: [phone] * Full Code (Latest Code Status on File) Date Activated Date Inactivated Comments 12/31/2023 12:58 PM 01/05/2024 4:45 PM Care Teams Ship Captain Relationship Specialty Start Date End Date Thomas Nava DO [address] [address] PCP - General Family Practice 06/26/13
--- NOTE | 2025-03-01 18:32 | PC.RESP ---
pt brought in coding by ems with lma in place. resp took took over bagging until code was called by dr. gray at approx 1827
--- NOTE | 2025-03-01 18:34 | W.ED.GENADLT ---
HPI - General Adult General: Chief complaint: Cardiac Arrest/CPR Stated complaint: CODE in progress Time Seen by Provider: 03/01/25 18:28 Source: EMS Mode of arrival: EMS Limitations: altered mental status History of Present Illness: 84-year-old female is here with EMS. EMS states today got called for respiratory difficulty states that they gave her a breathing treatment then she went to cardiac arrest. Patient has an Igel in place they states they have been doing CPR with multiple rounds of epinephrine over the last 30 minutes with no response. Patient's currently unresponsive Related Data Home Medications ?Medication ?Instructions ?Recorded ?Confirmed atorvastatin 40 mg tablet 40 mg PO QPM 07/18/24 02/03/25 insulin aspart U-100 100 unit/mL See Rx Instructions .Route .COMPLEX 12/06/24 02/03/25 (3 mL) subcutaneous pen (Novolog FlexPen U-100 Insulin aspart) omeprazole 20 mg capsule,delayed 20 mg PO BID 12/06/24 02/03/25 release ondansetron 4 mg disintegrating 4 mg PO Q8H PRN Nausea And Vomiting 12/06/24 02/03/25 tablet glucagon 1 mg solution for 1 mg SUBCUT PRN PRN low blood sugar 02/03/25 02/03/25 injection (Glucagon Emergency Kit) Previous Rx's ?Medication ?Instructions ?Recorded clopidogrel 75 mg tablet 75 mg PO BEDTIME #90 tabs 03/27/24 nebulizer and compressor (GLD149 #1 ea 07/23/24 Nebulizer) CAM walker #1 ea 11/28/24 acetaminophen 325 mg tablet 650 mg (2 x 325 mg) PO Q6H PRN 12/13/24 Mild/Mod Pain Or Temp >/= 101 #30 tabs budesonide 0.5 mg/2 mL suspension 0.5 mg (2 mL) inhalation 12/13/24 for nebulization BID.RESPIRATORY #60 mL hydrocodone 5 mg-acetaminophen 325 1 tab PO Q6H PRN Moderate Pain #30 12/13/24 mg tablet tabs insulin degludec 200 unit/mL (3 35 unit (0.175 mL) SUBCUT DAILY #9 12/13/24 mL) subcutaneous pen (Tresiba mL FlexTouch U-200 insulin) ipratropium 0.5 mg-albuterol 3 mg 3 ml inhalation Q6H.RESP #90 mL 12/13/24 (2.5 mg base)/3 mL nebulization soln midodrine 5 mg tablet 5 mg PO TID #90 tabs 12/13/24 nystatin 100,000 unit/gram topical 1 applic topical BID #60 grams 12/13/24 powder (Nystop) potassium chloride 20 mEq 20 meq PO DAILY #30 tabs 12/13/24 tablet,extended release(part/cryst) (Klor-Con M) ranolazine 500 mg tablet,extended 500 mg PO BID #60 tabs 12/13/24 release,12 hr amiodarone 200 mg tablet 100 mg (1/2 x 200 mg) PO DAILY #30 12/16/24 tabs dapagliflozin propanediol 10 mg 10 mg PO DAILY #30 tabs 12/16/24 tablet (Farxiga) Held on 02/06/25. Instructions: Resume on 02/13/25. sacubitril 24 mg-valsartan 26 mg 0.5 tab PO BID #30 tabs 12/16/24 tablet (Entresto) Held on 02/06/25. Instructions: Resume on 02/05/25. furosemide 40 mg tablet 40 mg PO DAILY@0800 PRN Edema #30 02/06/25 tabs linezolid 600 mg tablet 600 mg PO BID #5 tabs 02/06/25 prednisone 20 mg tablet 20 mg PO DAILY #20 tabs 02/06/25 Allergies Allergy/AdvReac Type Severity Reaction Status Date / Time No Known Allergies Allergy Verified 02/03/25 06:31 Review of Systems General: Reports: ROS unobtainable due to medical condition PFSH ED PFSH: Medical History Dyslipidemia Essential (primary) hypertension COPD (chronic obstructive pulmonary disease) Chronic hypoxic respiratory failure, on home oxygen therapy Diabetes mellitus, type II, insulin dependent CAD (coronary artery disease) Paroxysmal A-fib CKD (chronic kidney disease) CHF (congestive heart failure) Respiratory arrest has required intubation Non-STEMI (non-ST elevated myocardial infarction) Contrast-induced nephropathy Surgical History Hx of hysterectomy Hx of CABG Family History Unknown No problems noted. Social History Smoking and tobacco/nicotine status: former use of tobacco/nicotine Alcohol intake: never Substance/Drug Use: never Physical Exam Const: COMMON NORMALS: negative for patient oriented x3 HENMT: COMMON NORMALS: normocephalic HEAD & SCALP: normocephalic Chest: COMMONS NORMALS: normal inspection of the chest Resp: OTHER: I-gel in place with good chest rise breath sounds bilateral equal Cardio: OTHER: Patient is in cardiac arrest GI: INSPECTION: Yes normal to inspection Extremity: COMMON NORMALS: normal to inspection Neuro: COMMON NORMALS: negative for patient oriented x3 MDM - General Adult Medical Decision Making Patient presents here in cardiac arrest. Patient been worked for 30 minutes in the field with multiple rounds of epinephrine. Did do 1 round of compressions here patient is in asystole on cardiac check did a bedside ultrasound showed no cardiac activity. Time of was called at 1827 Medical Records I reviewed the patient's medical records. No radiology studies performed this visit Discharge Plan Discharge Patient Disposition: Clinical Impression: Cardiac arrest Coding Level of Care Code ED Gold And Silver Assayer for Akosua Vasquez
--- NOTE | 2025-03-01 18:36 | PC.NURSE ---
[facility] Faustino Downey at [phone]. Nasreen released the body to desired home. pending home at this time.
--- NOTE | 2025-03-01 18:45 | PC.NURSE ---
MTS contacted about pts . MTS will call back after they review the chart
--- NOTE | 2025-03-01 20:04 | PC.NURSE ---
MTS MTS stated that patient is eligible for tissue donation. Patient moved to [facility] with belongings at 1999.
--- NOTE | 2025-03-02 10:15 | PC.NURSE ---
[facility] home here at 1015 to picker the pts body
== END 2025-03-01 20:22 | disposition expired ==
PROVIDERS: Emergency Provider Emergency Medicine; PCP Family Medicine
DX: I46.9 Cardiac arrest, cause unspecified (principal); Z87.891 Personal history of nicotine dependence; J44.9 Chronic obstructive pulmonary disease, unspecified; E11.22 Type 2 diabetes mellitus with diabetic chronic kidney disease; I13.0 Hypertensive heart and chronic kidney disease with heart failure and stage 1 through stage 4 chronic kidney disease, or unspecified chronic kidney disease; N18.9 Chronic kidney disease, unspecified; I50.9 Heart failure, unspecified; E78.5 Hyperlipidemia, unspecified; Z95.1 Presence of aortocoronary bypass graft
CPT/HCPCS: 99283